=== PATIENT | female | born 1965 | race Caucasian/White ===

== ENCOUNTER 2016-08-07 13:39 | Emergency (ER) | payer OTHER ==
[~2016-08-07] VITALS: Ht 170.2 cm; Wt 159.0 kg
[~2016-08-07 13:39] MED LIST: AMIT10TA6 PO; ARIP30TA3 PO; BUSP30TA2 PO; CLON0.5T3 PO; DICY1TAB25 PO; EFFSR150 PO; ELQ25 PO; FLUT1INH PO; FURO20TA PO; LAMO200T38 PO; LEVAAER2 INH; LEVO175T3 PO; METO50TA16 PO; OMEP20CA9 PO; SIMV-151 PO; TIZA2TAB3 PO; VERA240T20 PO; [UNRECOGNIZED DRUG - CODE] PO
[2016-08-07 13:55] VITALS: TEMP 36.7; Ht 170.2 cm; Wt 159.0 kg
--- NOTE | 2016-08-07 14:17 | EMERGENCY ROOM VISIT NOTE ---
History Report prepared by Tory: Padmini Wells Under the Supervision of: Dr. Shanta Merino M.D. First contact with patient: 14:08 Chief Complaint: FALL Stated Complaint: FALL History of Present Illness The patient is a 51 year old female who presents to the Emergency Room via EMS with complaints of worsening left leg weakness. The patient states that she initially started having difficulty using her left leg a few months ago, but it has been getting worse over the past few weeks. The patient also complains that her left leg has been getting red. Today, the patient had a fall while getting off of the elevator in her apartment building. She notes that she fell on her stomach but currently complains of lower back pain which started after the fall. She denies hitting her head or loss of consciousness. The patient is currently on antibiotics for pneumonia, which she was diagnosed with in late July. 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 A total of 10 systems reviewed and were otherwise negative. Past Medical & Surgical Medical Problems: (1) Anxiety (2) Asthma (3) 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 with rapid ventricular response (4) Bipolar I disorder (5) Depression (6) Dyslipidemia (7) Elevated troponin I level (8) Epilepsy (9) Fibromyalgia (10) GERD (gastroesophageal reflux disease) (11) H/O migraine (12) Hypertension (13) Hypothyroidism (14) IBS (irritable bowel syndrome) (15) Lung nodule (16) MAURO (obstructive sleep apnea) (17) Schizoaffective disorder, depressive type Surgical Problems: (1) H/o lumbar hemilaminectomy (2) History of hysterectomy (3) S/P cholecystectomy (4) S/P tonsillectomy (5) S/P tubal ligation Family History Diabetes mellitus FATHER FH: cancer MOTHER (lung CA) FH: heart disease FATHER FH: scoliosis Social History Smoking Status: Former Smoker Alcohol Use: none Drug Use: none Marital Status: Housing Status: lives alone Occupation Status: disabled Current/Historical Medications Scheduled Amitriptyline Hcl (Elavil), 10 MG PO HS Apixaban (Eliquis), 5 MG PO BID Aripiprazole (Abilify), 30 MG PO HS Buspirone Hcl (Buspirone Hcl), 30 MG PO BID Clonazepam (Klonopin), 0.5 MG PO BID Dicyclomine HCl (Dicyclomine HCl), 20 MG PO QID Esomeprazole Magnesium (Nexium), 40 MG PO DAILY Fluticasone Furoate-Vilanterol (Breo Ellipta), 1 PUFF PO QAM Furosemide (Lasix), 1 TAB PO DAILY Lamotrigine (Lamictal), 200 MG PO BID Levothyroxine Sodium (Levothyroxine Sodium), 175 MCG PO DAILY Metoprolol Tartrate (Lopressor) (Lopressor), 50 MG PO BID Mirabegron (Myrbetriq), 25 MG PO DAILY Multiple Vitamins W/ Minerals (Multiple Vitamins/Womens), 1 TAB PO DAILY Simvastatin (Simvastatin), 20 MG PO HS Venlafaxine Hcl (Effexor Extended Rel), 150 MG PO QAM Verapamil Sust Rel (Calan Sr Ext Rel), 240 MG PO DAILY Scheduled PRN Levalbuterol (Xopenex Hfa), 1-2 PUFFS INH Q4H PRN for Shortness of Breath Oxycodone Immediate Rel Tab (Roxicodone Ir), 5 MG PO TID PRN for Pain Tizanidine Hcl (Zanaflex), 2 MG PO Q8 PRN for Muscle Spasms Allergies Coded Allergies: Hydantoins (Verified Allergy, Unknown, 07/08/16) Phenytoin (Verified Allergy, Unknown, 07/08/16) Ethanol (Verified Adverse Reaction, Severe, SEIZURES, 07/08/16) SEIZURES Thioridazine (Verified Adverse Reaction, Severe, SEIZURES, 07/08/16) SEIZURES Physical Exam Vital Signs Date Time Temp Pulse Resp B/P Pulse Ox O2 Delivery O2 Flow Rate FiO2 08/07/16 18:25 74 22 133/79 97 08/07/16 18:00 74 22 133/79 97 Room Air 08/07/16 15:30 66 16 100/65 99 Room Air 08/07/16 15:24 68 08/07/16 13:55 36.7 76 20 166/83 97 Room Air Physical Exam Vital signs reviewed. General: Obese generally well-appearing 51 year old female, in no significant distress. HEENT: No scleral icterus, PERRLA, esotropia of the right eye, neck supple. Atraumatic. Cardiovascular: Regular rate and rhythm, no extra sounds. Pulmonary: Clear to auscultation bilaterally, normal work of breathing. Abdomen: Soft, nontender, nondistended, positive bowel sounds. Musculoskeletal: Atraumatic, no peripheral edema, tender to palpation of the mid -thoracic spine. Neurologic: Patient awake alert and oriented x 3. 3/5 strength of the left lower extremity to straight leg raise, 5/5 to dorsiflexion and plantar flexion of the left foot. The right leg is fully intact, 5/5 strength. Cranial nerves 2 through 12 grossly intact. Skin: Warm, dry, no rash Medical Decision & Procedures ER Provider Diagnostic Interpretation: X-ray results as stated below per my interpretation and radiologist interpretation. Other radiology results as stated below per my review and radiologist interpretation: THORACIC SPINE 3 VIEWS HISTORY: Fall with mid back pain COMPARISON: None. FINDINGS: There is no fracture. No subluxation. Paraspinal soft tissues are unremarkable. Mild to moderate disc space narrowing and endplate osteophytes at the mid thoracic spine consistent with degenerative change. IMPRESSION: No fracture or subluxation within the thoracic spine. Electronically signed by: Smooth Maya M.D. 08/07/2016 3:27 PM Dictated Date/Time: 08/07/2016 3:[address] DOSE: 2994.04 mGy.cm HISTORY: Left leg weakness, falls, morbid obesity BMI 55 TECHNIQUE: Multiaxial CT images of the lumbar spine were performed and reformatted in the sagittal and coronal plane without the use of contrast. COMPARISON: Lumbar spine CT 08/10/2014. FINDINGS: Alignment and curvature intact. No fracture or subluxation. There is posterior decompression and fusion from L3 through L5 with pedicle screws and rods. The hardware appears intact. Vertebral body heights are maintained. Paraspinal soft tissues are unremarkable. Lumbar region subcutaneous edema has improved. This may represent resolving postoperative changes. The visualized sacrum is intact. Moderate facet degenerative changes at L5-S1 remains unchanged. Evaluation the central canal is suboptimal due to the CT technique. However, there is no significant central canal compromise identified. IMPRESSION: No fracture or subluxation within the lumbar spine. Postoperative changes as described above. Electronically signed by: Smooth Maya M.D. 08/07/2016 3:12 PM Dictated Date/Time: 08/07/2016 3:[address]AST CT DOSE: HISTORY: LLE weakness, falls TECHNIQUE: Multiaxial CT images of the head were performed without the use of intravenous contrast. Automated exposure control was utilized for this study. Comparison: Head CT 09/08/2015. Findings: The paranasal sinuses and mastoid air cells are clear. The calvarium and skull base are intact. The ventricles and sulci are within normal limits. There is no mass, hematoma, midline shift, or acute infarct. Impression: No acute intracranial abnormality. Electronically signed by: Smooth Maya M.D. 08/07/2016 3:14 PM Dictated Date/Time: 08/07/2016 3:12 PM Laboratory Results 08/07/16 15:30 Red Blood Count 4.10, Mean Corpuscular Volume 92.7, Mean Corpuscular Hemoglobin 29.8, Mean Corpuscular Hemoglobin Concent 32.1, Mean Platelet Volume 10.7, Neutrophils (%) (Auto) 71.9, Lymphocytes (%) (Auto) 16.1, Monocytes (%) (Auto) 6.8, Eosinophils (%) (Auto) 4.6, Basophils (%) (Auto) 0.4, Neutrophils # (Auto) 7.16, Lymphocytes # (Auto) 1.60, Monocytes # (Auto) 0.68, Eosinophils # (Auto) 0.46, Basophils # (Auto) 0.04 08/07/16 15:30 Test 08/07/16 15:30 08/07/16 15:45 White Blood Count 9.96 K/uL (4.8-10.8) Red Blood Count 4.10 M/uL (4.2-5.4) Hemoglobin 12.2 g/dL (12.0-16.0) Hematocrit 38.0 % (37-47) Mean Corpuscular Volume 92.7 fL (80-100) Mean Corpuscular Hemoglobin 29.8 pg (25-34) Mean Corpuscular Hemoglobin Concent 32.1 g/dl (32-36) Platelet Count 196 K/uL (130-400) Mean Platelet Volume 10.7 fL (7.4-10.4) Neutrophils (%) (Auto) 71.9 % Lymphocytes (%) (Auto) 16.1 % Monocytes (%) (Auto) 6.8 % Eosinophils (%) (Auto) 4.6 % Basophils (%) (Auto) 0.4 % Neutrophils # (Auto) 7.16 K/uL (1.4-6.5) Lymphocytes # (Auto) 1.60 K/uL (1.2-3.4) Monocytes # (Auto) 0.68 K/uL (0.11-0.59) Eosinophils # (Auto) 0.46 K/uL (0-0.5) Basophils # (Auto) 0.04 K/uL (0-0.2) RDW Standard Deviation 52.9 fL (36.4-46.3) RDW Coefficient of Variation 15.5 % (11.5-14.5) Immature Granulocyte % (Auto) 0.2 % Immature Granulocyte # (Auto) 0.02 K/uL (0.00-0.02) Anion Gap 9.0 mmol/L (3-11) Est Creatinine Clear Calc Drug Dose 124.4 ml/min Estimated GFR () 93.3 Estimated GFR (Non- 80.5 BUN/Creatinine Ratio 11.1 (10-20) Calcium Level 9.5 mg/dl (8.5-10.1) Magnesium Level 2.0 mg/dl (1.8-2.4) Total Bilirubin 0.3 mg/dl (0.2-1) Direct Bilirubin 0.1 mg/dl (0-0.2) Aspartate Amino Transf (AST/SGOT) 52 U/L (15-37) Alanine Aminotransferase (ALT/SGPT) 77 U/L (12-78) Alkaline Phosphatase 117 U/L (45-117) Total Protein 7.8 gm/dl (6.4-8.2) Albumin 3.4 gm/dl (3.4-5.0) Urine Color YELLOW Urine Appearance CLEAR (CLEAR) Urine pH 6.0 (4.5-7.5) Urine Specific Ranger 1.004 (1.000-1.030) Urine Protein NEG (NEG) Urine Glucose (UA) NEG (NEG) Urine Ketones NEG (NEG) Urine Occult Blood NEG (NEG) Urine Nitrite NEG (NEG) Urine Bilirubin NEG (NEG) Urine Urobilinogen NEG (NEG) Urine Leukocyte Esterase NEG (NEG) Laboratory results per my review. Medications Administered Medications (Trade) Dose Ordered Sig/Eliana Route Start Time Stop Time Status Last Admin Dose Admin Sodium Chloride (Nss 1000ml) 1,000 ml @ 125 mls/hr Q8H STAT IV 08/07/16 14:42 08/07/16 18:56 DC 08/07/16 14:42 125 MLS/HR Ketorolac Tromethamine (Toradol Inj) 30 mg NOW STAT IV 08/07/16 17:41 08/07/16 17:42 DC 08/07/16 17:54 30 MG Oxycodone HCl (Roxicodone Immediate Rel Tab) 5 mg NOW STAT PO 08/07/16 17:41 08/07/16 17:42 DC 08/07/16 17:55 5 MG ECG Indication: weakness Rate (beats per minute): 68 Rhythm: normal sinus Findings: no ectopy, other (diffuse T wave flattening) ED Course 1412: The patient was evaluated in room B4. A complete history and physical examination was performed. 1442: Ordered NSS 1000 ml @ 125 mls/hr IV. 1738: The patient did well on her ambulatory trial. I discussed findings with the patient. She verbalized agreement of the treatment plan. She was discharged home. Ordered Oxycodone HCl 5 mg IV, Toradol Inj 30 mg IV. Medical Decision Differential diagnosis: Lumbar radiculopathy, deconditioning compression fracture, spinal stenosis, cord compromise, UTI, metabolic abnormality, intracranial hemorrhage, intracranial mass, stroke. This patient was evaluated and appeared to be in no significant distress. IV access was obtained and laboratory work was drawn. The patient was hydrated with normal saline solution. She was given IV toradol and oxy for her discomfort. Given the patient's morbid obesity, a CT scan of the lumbar spine was obtained and reveals postsurgical changes but no significant fracture, dislocation central canal compromise on this modality. CT scan of the head reveals no evidence of acute intracranial pathology and thoracic x-rays were performed revealing no fracture. The patient was able to ambulate well with her cane however her boyfriend is concerned about her instability. This has been going on for some time and the patient was discharged with a walker. I suspect she may need an MRI of the lumbar spine as she has had spine surgery in the past however she has no fever or elevated white blood cell count to cause great concerns evening. The patient was informed of the findings and will be discharged to the care of her boyfriend. She will return to the ER for worsening of symptoms or any medical concerns. Impression Primary Impression: Weakness of left lower extremity Additional Impression: Morbid obesity Scribe Attestation The scribe's documentation has been prepared under my direction and personally reviewed by me in its entirety. I confirm that the note above accurately reflects all work, treatment, procedures, and medical decision making performed by me. Departure Information Dispostion Home / Self-Care Prescriptions Oxycodone Immediate Rel Tab (ROXICODONE IR) 5 Mg Tab 5 MG PO TID Y for Pain, #14 TAB Prov: Shanta Merino M.D. 08/07/16 Referrals Brian Salas, D.O. (PCP) Patient Instructions A Signature Page, [facility] Additional Instructions Diagnosis: Left lower extremity weakness, morbid obesity OxyIR 5 mg 3 times daily as needed for severe pain. Do not drive on this medication. Follow-up with your physician for reevaluation of your weakness. An MRI may be necessary. Use your cane or walker with ambulation to avoid falling. Return to the emergency department for worsening of symptoms or any medical concerns.
[2016-08-07] MEDS ORDERED: NXM/40 PO (14:36)
[2016-08-07] MEDS ORDERED: MIRA100T PO (14:36)
[2016-08-07] MEDS ORDERED: SODIUM CHLORIDE 0.9% 1000ML 1,000 ML IV STA (14:42)
--- NOTE | 2016-08-07 15:14 | DIAGNOSTIC IMAGING REPORT ---
LUMBAR SPINE CT CT DOSE: 2994.04 mGy.cm HISTORY: Left leg weakness, falls, morbid obesity BMI 55 TECHNIQUE: Multiaxial CT images of the lumbar spine were performed and reformatted in the sagittal and coronal plane without the use of contrast. COMPARISON: Lumbar spine CT 08/10/2014. FINDINGS: Alignment and curvature intact. No fracture or subluxation. There is posterior decompression and fusion from L3 through L5 with pedicle screws and rods. The hardware appears intact. Vertebral body heights are maintained. Paraspinal soft tissues are unremarkable. Lumbar region subcutaneous edema has improved. This may represent resolving postoperative changes. The visualized sacrum is intact. Moderate facet degenerative changes at L5-S1 remains unchanged. Evaluation the central canal is suboptimal due to the CT technique. However, there is no significant central canal compromise identified. IMPRESSION: No fracture or subluxation within the lumbar spine. Postoperative changes as described above. Electronically signed by: Smooth Maya M.D. 08/07/2016 3:12 PM Dictated Date/Time: 08/07/2016 3:06 PM
--- NOTE | 2016-08-07 15:16 | DIAGNOSTIC IMAGING REPORT ---
HEAD CT NONCONTRAST CT DOSE: HISTORY: LLE weakness, falls TECHNIQUE: Multiaxial CT images of the head were performed without the use of intravenous contrast. Automated exposure control was utilized for this study. Comparison: Head CT 09/08/2015. Findings: The paranasal sinuses and mastoid air cells are clear. The calvarium and skull base are intact. The ventricles and sulci are within normal limits. There is no mass, hematoma, midline shift, or acute infarct. Impression: No acute intracranial abnormality. Electronically signed by: Smooth Maya M.D. 08/07/2016 3:14 PM Dictated Date/Time: 08/07/2016 3:12 PM
--- NOTE | 2016-08-07 15:29 | DIAGNOSTIC IMAGING REPORT ---
THORACIC SPINE 3 VIEWS HISTORY: Fall with mid back pain COMPARISON: None. FINDINGS: There is no fracture. No subluxation. Paraspinal soft tissues are unremarkable. Mild to moderate disc space narrowing and endplate osteophytes at the mid thoracic spine consistent with degenerative change. IMPRESSION: No fracture or subluxation within the thoracic spine. Electronically signed by: Smooth Maya M.D. 08/07/2016 3:27 PM Dictated Date/Time: 08/07/2016 3:26 PM
[2016-08-07 15:47] LABS: BASO % 0.4 %; BASO ABS # 0.04 K/uL (0-0.2); COMPLETE YES; EOS % 4.6 %; IG% 0.2 %; LYMPH % 16.1 %; MEAN CELL VOLUME 92.7 fL (80-100); MEAN CORPUSCULAR HEMOGLOBIN 29.8 pg (25-34); MEAN CORPUSCULAR HGB CONC 32.1 g/dl (32-36); MEAN PLATELET VOLUME 10.7 fL (7.4-10.4); MONO % 6.8 %; NEUT % 71.9 %; PLATELET COUNT 196 K/uL (130-400); WHITE BLOOD COUNT 9.96 K/uL (4.8-10.8)
[2016-08-07 16:11] LABS: URINE APPEARANCE CLEAR (CLEAR); URINE BILIRUBIN NEG (NEG); URINE COLOR YELLOW; URINE NITRITE NEG (NEG); URINE SPECIFIC GRAVITY 1.004 (1.000-1.030); UROBILINOGEN NEG (NEG); ZZUR CULT IF INDIC CLEAN CATCH NO
[2016-08-07 16:16] LABS: BUN/CREATININE RATIO 11.1 (10-20); CALCIUM 9.5 mg/dl (8.5-10.1); CREATININE 0.83 mg/dl (0.60-1.20); POTASSIUM 3.5 mmol/L (3.5-5.1)
[2016-08-07 16:27] LABS: MANUAL MICROSCOPIC REQUIRED? NO; REVIEW REQ? NO
[2016-08-07] MEDS ORDERED: OXYCODONE HCL IR 5 MG TAB (IMMEDIATE RELEASE) PO STA (17:41)
[2016-08-07] MEDS ORDERED: KETOROLAC TROMETHAMINE 30 MG/ML VIAL IV STA (17:41)
[2016-08-07] MEDS ORDERED: OXYC1TAB3 PO (17:49)
[2016-08-07 18:25] VITALS: BP 133/79; PULSE 74; O2SAT 97
[2016-11-12] MEDS ORDERED: BTP80 PO (11:48)
[2016-11-12] MEDS ORDERED: POTA10CA28 PO (11:48)
[2016-11-12] MEDS ORDERED: ASPEC81 PO (11:48)
[2016-11-12] MEDS ORDERED: LEVO200T6 PO (11:48)
[2017-04-29] MEDS ORDERED: OXYC7.5T65 PO (13:04)
[2017-04-29] MEDS ORDERED: TIZA2TAB3 PO (13:05)
[2017-04-29] MEDS ORDERED: BUSP30TA2 PO (13:05)
== END 2016-08-07 18:56 | disposition home or self-care (01) ==
LOC: EDBD 13:39 → C.EDB 13:42
DX: M79.605 Pain in left leg (principal); M54.5 Low back pain; W01.0XXA Fall on same level from slipping, tripping and stumbling without subsequent striking against object, initial encounter; Y92.89 Other specified places as the place of occurrence of the external cause; F25.9 Schizoaffective disorder, unspecified; G47.33 Obstructive sleep apnea (adult) (pediatric); M79.7 Fibromyalgia; Z87.891 Personal history of nicotine dependence; E66.01 Morbid (severe) obesity due to excess calories; Z68.43 Body mass index [BMI] 50.0-59.9, adult

== ENCOUNTER → 2016-08-25 | Outpatient (CLI) | payer OTHER ==
[~2016-08-25] MED LIST changes: +ASPEC81 PO; +BTP80 PO; +DICY10CA55 PO; +FURO-85 PO; +LEVA45AE INH; +LEVO200T6 PO; +MIRA100T PO; +NXM/40 PO; -OMEP20CA9 PO; +OXYC1TAB3 PO; +OXYC7.5T65 PO; +POTA10CA28 PO; +RANI150T3 PO; +RIBO100T9 PO; +TPM/50 PO
--- NOTE | 2016-08-25 19:30 | DIAGNOSTIC IMAGING REPORT ---
MRI OF THE LUMBAR SPINE WITHOUT IV CONTRAST CLINICAL HISTORY: Upper extremity weakness. COMPARISON STUDY: MRI of the lumbar spine dated 03/29/2014. Radiographs of the lumbar spine dated 03/27/2015. TECHNIQUE: MRI of the lumbar spine is performed utilizing various T1 and T2-weighted sequences in the axial and sagittal planes. IV contrast was not administered for this examination. The examination is significantly degraded by large body habitus. Orthopedic hardware degrades assessment at the operative levels. FINDINGS: Lumbar spine: Vertebral body height and alignment are maintained throughout the lumbar spine. Marrow signal intensity is heterogeneous. There are postoperative changes from laminectomy and posterior fusion from L3 to L5. Interpedicular screws are present at all levels. The orthopedic hardware is grossly intact. The transverse processes are intact as imaged. No destructive bony process is seen. Intervertebral discs: Findings suggest previous discectomy at L4-L5. Degenerative disc desiccation is seen throughout the lumbar spine. There is mild loss of height at L3-L4. Spinal cord: Visualized spinal cord is normal in morphology and signal intensity. The conus medullaris terminates at the L1-L2 interspace. The nerve roots of the cauda equina are grossly normal in morphology. L1-L2: There is a posterior disc bulge with annular fissure eccentric to the left. This may impinge on the transiting left-sided nerve roots. The central canal and neural foramina are patent. L2-L3: There is minimal posterior disc bulge. In conjunction with hypertrophy of the ligamentum flavum, this causes mild acquired compromise of the central canal with a minimum AP diameter of 8.5 mm. There is mild bilateral subarticular stenosis. The neural foramina are patent. Facet arthropathy is of no consequence. L3-L4: The central canal and neural foramina appear widely patent. L4-L5: The central canal and neural foramina appear widely patent. L5-S1: The central canal and neural foramina appear widely patent. A facet joint effusion is noted on the left. Sacrum: Visualized sacrum is normal in morphology and signal intensity. Soft tissues: There is near-complete fatty atrophy of the paraspinous musculature. Postoperative changes present from L3 to L5. The partially imaged retroperitoneal structures are grossly unremarkable but incomplete assessed. IMPRESSION: 1. There are postoperative changes from L3 to L5 laminectomy and posterior fusion. 2. Degenerative change at L1-L2 and L2-L3 as above. See discussion for detailed [id number] analysis. Dictated: 08/25/2016 6:54 PM Transcribed: 08/25/2016 7:29 PM Jessica Electronically signed by: Gurinder Staley M.D. 08/25/2016 7:34 PM Dictated Date/Time: 08/25/2016 6:54 PM
== END | disposition home or self-care (01) ==
LOC: C.MRI 16:59
PROVIDERS: ATTEND Family Medicine
DX: M51.36 Other intervertebral disc degeneration, lumbar region (principal); M62.81 Muscle weakness (generalized); Z98.1 Arthrodesis status

== ENCOUNTER 2016-11-08 17:36 | Inpatient (IN) | payer OTHER ==
[~2016-11-08] VITALS: Ht 170.2 cm; Wt 151.5 kg
[~2016-11-08 17:36] MED LIST changes: -ARIP30TA3 PO; -ASPEC81 PO; -BTP80 PO; -DICY10CA55 PO; -EFFSR150 PO; -FLUT1INH PO; -FURO-85 PO; -LAMO200T38 PO; -LEVA45AE INH; -LEVO200T6 PO; -OXYC7.5T65 PO; -POTA10CA28 PO; -RANI150T3 PO; -RIBO100T9 PO; -SIMV-151 PO; -TPM/50 PO
[2016-11-08] MEDS ORDERED: METOPROLOL TARTRATE 1 MG/ML VIAL IV STA (17:51)
[2016-11-08 18:03] LABS: BASO % 0.5 %; BASO ABS # 0.05 K/uL (0-0.2); COMPLETE YES; EOS % 2.8 %; HEMATOCRIT 41.4 % (37-47); IG% 0.3 %; LYMPH % 25.7 %; LYMPH ABS # 2.52 K/uL (1.2-3.4); MEAN CORPUSCULAR HEMOGLOBIN 30.2 pg (25-34); MEAN CORPUSCULAR HGB CONC 32.9 g/dl (32-36); MEAN PLATELET VOLUME 11.3 fL (7.4-10.4); MONO % 5.5 %; NEUT % 65.2 %; PLATELET COUNT 213 K/uL (130-400)
--- NOTE | 2016-11-08 18:05 | DIAGNOSTIC IMAGING REPORT ---
CHEST ONE VIEW PORTABLE CLINICAL HISTORY: sob dyspnea COMPARISON STUDY: 02/04/2016 FINDINGS: The bones soft tissues and hemidiaphragms are normal. The cardiomediastinal silhouette is normal. The lungs are clear. The pulmonary vasculature is normal. IMPRESSION: Negative chest. Electronically signed by: Eduardo Borja M.D. 11/08/2016 6:03 PM Dictated Date/Time: 11/08/2016 6:01 PM
[2016-11-08 18:16] LABS: PARTIAL THROMBOPLASTIN RATIO 1.2; PROTHROMBIN TIME (PATIENT) 10.7 SECONDS (9.0-12.0)
[2016-11-08 18:23] LABS: BUN/CREATININE RATIO 6.7 (10-20); CREATININE 0.93 mg/dl (0.60-1.20); POTASSIUM 3.6 mmol/L (3.5-5.1)
[2016-11-08] MEDS ORDERED: LEVO200T6 PO (18:26)
[2016-11-08] MEDS ORDERED: TPM/50 PO (18:26)
[2016-11-08] MEDS ORDERED: LEVA45AE INH (18:27)
[2016-11-08 18:33] LABS: ALB/GLOB RATIO 0.9 (0.9-2); CKMB/CK RATIO 2.5 (0-3.0)
[2016-11-08] MEDS ORDERED: DILTIAZEM BOLUS / DRIP IV STA ×2 (18:45→23:59)
[2016-11-08] MEDS ORDERED: DILTIAZEM HCL INJ 125 MG in DEXTROSE 5% 100ML IV PRN (19:00)
[2016-11-08] MEDS ORDERED: DILTIAZEM HCL 5 MG/ML 5 ML VIAL IV ONE (19:15)
--- NOTE | 2016-11-08 19:37 | EMERGENCY ROOM VISIT NOTE ---
ED Visit Note First contact with patient: 17:39 Patient was seen by our PA/ADVERTISEMENT DISTRIBUTOR. I was involved in the patient's care and did evaluate the patient myself. I was involved in the care throughout the ER stay. The patient presents with chest discomfort. Rapid A. fib/A flutter was noted on EKG. The patient received IV beta mary and then was placed on a diltiazem drip after an IV diltiazem bolus. Given the findings, admission/ observation is warranted.
--- NOTE | 2016-11-08 19:47 | EMERGENCY ROOM VISIT NOTE ---
History First contact with patient: 17:39 Chief Complaint: CARDIAC ASSESSMENT Stated Complaint: CARDIAC SX Nursing Triage Summary: Pt reports at around 0530 this morning she felt her heart flutter. Pt c/o SOB, weakness, dry cough, and chest discomfort. Pt reports history of Afib. History of Present Illness The patient is a 51 year old female who presents to the Emergency Room with complaints of cardiac symptoms which began at approximately 5:30 AM. She states that since this morning, she has had a feeling of fluttering in her chest , cough, shakiness and weakness. She states that these symptoms "take her breath away." She reports a history of atrial 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 and takes Xarelto. 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 She denies any history of similar symptoms. She denies any recent medication changes. She denies headache, neck pain, abdominal pain, nausea, vomiting, recent illness or fevers. Review of Systems A complete 10-point Review of Systems was discussed with the patient, with pertinent positives and negatives listed in the History of Present Illness. All remaining Review of Systems questions can be considered negative unless otherwise specified. Past Medical/Surgical History Medical Problems: (1) Anxiety (2) Asthma (3) 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 with rapid ventricular response (4) 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 with RVR (5) Bipolar I disorder (6) Depression (7) Dyslipidemia (8) Elevated troponin I level (9) Epilepsy (10) Fibromyalgia (11) GERD (gastroesophageal reflux disease) (12) H/O migraine (13) Hypertension (14) Hypothyroidism (15) IBS (irritable bowel syndrome) (16) Lung nodule (17) MAURO (obstructive sleep apnea) (18) Schizoaffective disorder, depressive type Surgical Problems: (1) H/o lumbar hemilaminectomy (2) History of hysterectomy (3) S/P cholecystectomy (4) S/P tonsillectomy (5) S/P tubal ligation Family History Diabetes mellitus FATHER FH: cancer MOTHER (lung CA) FH: heart disease FATHER FH: scoliosis Social History Smoking Status: Never Smoker Alcohol Use: none Drug Use: none Marital Status: Housing Status: lives alone Occupation Status: disabled Current/Historical Medications Scheduled Amitriptyline Hcl (Elavil), 10 MG PO HS Apixaban (Eliquis), 5 MG PO BID Aripiprazole (Abilify), 30 MG PO HS Buspirone Hcl (Buspirone Hcl), 30 MG PO BID Clonazepam (Klonopin), 0.5 MG PO BID Dicyclomine HCl (Dicyclomine HCl), 20 MG PO QID Esomeprazole Magnesium (Nexium), 40 MG PO DAILY Fluticasone Furoate-Vilanterol (Breo Ellipta), 1 PUFF PO QAM Furosemide (Lasix), 1 TAB PO DAILY Lamotrigine (Lamictal), 200 MG PO BID Levothyroxine Sodium (Levothyroxine Sodium), 200 MCG PO QAM Metoprolol Tartrate (Lopressor) (Lopressor), 50 MG PO BID Multiple Vitamins W/ Minerals (Multiple Vitamins/Womens), 1 TAB PO DAILY Simvastatin (Simvastatin), 20 MG PO HS Topiramate (Topamax), 100 MG PO BID Venlafaxine Hcl (Effexor Extended Rel), 150 MG PO QAM Scheduled PRN Levalbuterol Tartrate (Levalbuterol Tartrate Hfa), 1-2 PUFFS INH Q4 PRN for Shortness of Breath Oxycodone Immediate Rel Tab (Roxicodone Ir), 5 MG PO TID PRN for Pain Tizanidine Hcl (Zanaflex), 2 MG PO Q8 PRN for Muscle Spasms Allergies Coded Allergies: Hydantoins (Verified Allergy, Unknown, 11/08/16) Phenytoin (Verified Allergy, Unknown, 11/08/16) Ethanol (Verified Adverse Reaction, Severe, SEIZURES, 11/08/16) SEIZURES Thioridazine (Verified Adverse Reaction, Severe, SEIZURES, 11/08/16) SEIZURES Physical Exam Vital Signs Date Time Temp Pulse Resp B/P Pulse Ox O2 Delivery O2 Flow Rate FiO2 11/08/16 20:15 Room Air 11/08/16 20:13 94 20 141/82 95 Room Air 11/08/16 19:21 121 18 120/86 96 Room Air 11/08/16 18:02 113 20 135/108 97 Room Air 11/08/16 18:02 119 135/108 11/08/16 17:50 108 11/08/16 17:40 94 Room Air 11/08/16 17:40 36.8 116 20 136/92 94 Room Air 11/08/16 17:40 94 Room Air Physical Exam VITALS: Vitals are noted on the nurse's note and reviewed by myself. Vital signs stable. GENERAL: This is a 51-year-old female, anxious appearing, nondiaphoretic, well- developed well-nourished. SKIN: Capillary reflex less than 2 seconds. HEENT: Normocephalic. PERRLA. EOMI. Nares patent. Mucous membranes moist. Neck is supple without nuchal rigidity. HEART: Tachycardic, irregularly irregular rhythm without murmurs gallops or rubs. LUNGS: Clear to auscultation bilaterally without wheezes, rales or rhonchi. No retractions or accessory muscle use. ABDOMEN: Positive bowel sounds x 4. Soft, nontender to palpation. NEURO: Patient was alert and oriented to person place and time. Medical Decision & Procedures Laboratory Results 11/08/16 17:17 Red Blood Count 4.50, Mean Corpuscular Volume 92.0, Mean Corpuscular Hemoglobin 30.2, Mean Corpuscular Hemoglobin Concent 32.9, Mean Platelet Volume 11.3, Neutrophils (%) (Auto) 65.2, Lymphocytes (%) (Auto) 25.7, Monocytes (%) (Auto) 5.5, Eosinophils (%) (Auto) 2.8, Basophils (%) (Auto) 0.5, Neutrophils # (Auto) 6.39, Lymphocytes # (Auto) 2.52, Monocytes # (Auto) 0.54, Eosinophils # (Auto) 0.27, Basophils # (Auto) 0.05 11/08/16 17:17 Test 11/08/16 17:17 11/08/16 17:58 White Blood Count 9.80 K/uL (4.8-10.8) Red Blood Count 4.50 M/uL (4.2-5.4) Hemoglobin 13.6 g/dL (12.0-16.0) Hematocrit 41.4 % (37-47) Mean Corpuscular Volume 92.0 fL (80-100) Mean Corpuscular Hemoglobin 30.2 pg (25-34) Mean Corpuscular Hemoglobin Concent 32.9 g/dl (32-36) Platelet Count 213 K/uL (130-400) Mean Platelet Volume 11.3 fL (7.4-10.4) Neutrophils (%) (Auto) 65.2 % Lymphocytes (%) (Auto) 25.7 % Monocytes (%) (Auto) 5.5 % Eosinophils (%) (Auto) 2.8 % Basophils (%) (Auto) 0.5 % Neutrophils # (Auto) 6.39 K/uL (1.4-6.5) Lymphocytes # (Auto) 2.52 K/uL (1.2-3.4) Monocytes # (Auto) 0.54 K/uL (0.11-0.59) Eosinophils # (Auto) 0.27 K/uL (0-0.5) Basophils # (Auto) 0.05 K/uL (0-0.2) RDW Standard Deviation 49.5 fL (36.4-46.3) RDW Coefficient of Variation 14.6 % (11.5-14.5) Immature Granulocyte % (Auto) 0.3 % Immature Granulocyte # (Auto) 0.03 K/uL (0.00-0.02) Prothrombin Time 10.7 SECONDS (9.0-12.0) Prothromb Time International Ratio 1.0 (0.9-1.1) Activated Partial Thromboplast Time 30.5 SECONDS (21.0-31.0) Partial Thromboplastin Ratio 1.2 Anion Gap 7.0 mmol/L (3-11) Est Creatinine Clear Calc Drug Dose 108.0 ml/min Estimated GFR () 81.3 Estimated GFR (Non- 70.2 BUN/Creatinine Ratio 6.7 (10-20) Calcium Level 9.0 mg/dl (8.5-10.1) Total Bilirubin 0.2 mg/dl (0.2-1) Aspartate Amino Transf (AST/SGOT) 24 U/L (15-37) Alanine Aminotransferase (ALT/SGPT) 39 U/L (12-78) Alkaline Phosphatase 125 U/L (45-117) Total Protein 7.5 gm/dl (6.4-8.2) Albumin 3.5 gm/dl (3.4-5.0) Globulin 4.0 gm/dl (2.5-4.0) Albumin/Globulin Ratio 0.9 (0.9-2) Thyroid Stimulating Hormone (TSH) 66.000 uIu/ml (0.300-4.500) Free Thyroxine 0.45 ng/dl (0.80-1.60) Free Triiodothyronine 1.49 pg/ml (2.30-4.20) Hepatitis C Antibody Screen NEG (NEG) Bedside Troponin I 0.030 ng/ml (0-0.045) Medications Administered Medications (Trade) Dose Ordered Sig/Eliana Route Start Time Stop Time Status Last Admin Dose Admin Metoprolol Tartrate (Lopressor Iv) 5 mg NOW STAT IV 11/08/16 17:51 11/08/16 17:52 DC 11/08/16 18:02 5 MG Diltiazem HCl 5 mg 5 mg NOW ONCE IV 11/08/16 19:15 11/09/16 11:22 DC 11/08/16 19:16 5 MG Diltiazem HCl/ Dextrose (Cardizem Inj/D5 100ml) 125 ml @ 5 mls/hr Q24H PRN IV 11/08/16 19:00 11/09/16 00:12 DC 11/08/16 19:16 5 MLS/HR ECG Indication: palpitations Rate (beats per minute): 127 Rhythm: atrial flutter Comparison ECG Date: atrial flutter has replaced sinus rhythm. ED Course The patient was evaluated as above. Labs were drawn and IV access was obtained. Patient was placed on the travel registered nurse icu and monitored throughout the duration of her stay. EKG showed atrial flutter with RVR. Patient was medicated with 5 mg Lopressor IV. Repeat EKG was performed and showed persistent atrial flutter. Patient remained symptomatic. Diltiazem bolus and drip were ordered. Case was discussed with the [facility] hospitalist, Sherine Carranza. They agreed to evaluate the patient for admission. Medical Decision Differential diagnosis includes arrhythmia, pulmonary embolism, ACS, among others.. The patient is a 51-year-old female who presents today complaining of palpitations. Labs revealed no leukocytosis or anemia. No concerning electrolyte abnormalities. TSH was found to be significantly elevated and free T3 and free T4 were ordered. Patient had persistent atrial flutter with RVR at a rate of 110 to 130. There was no improvement with IV Lopressor. Diltiazem bolus and drip were ordered and the hospitalist was consulted. Patient remained hemodynamically stable throughout her stay. The patient was independently evaluated by Dr. Wyman, ED attending physician, who agreed with my assessment and treatment plan. Impression Primary Impression: Atrial flutter Departure Information Dispostion Being Evaluated By Hospitalist Condition GOOD Referrals Brian Salas D.O. (PCP) Patient Instructions My [facility] Problem Qualifiers Primary Impression: Atrial flutter
[2016-11-08 20:15] VITALS: Ht 170.2 cm; Wt 151.5 kg
[2016-11-08 21:40] VITALS: BP 124/84; PULSE 87; TEMP 37; O2SAT 96
--- NOTE | 2016-11-08 23:40 | History and Physical ---
History & Physical Date & Time of Service: Nov 08, 2016 at 23:39 Chief Complaint: Atrial Fibrillation With Rvr Primary Care Physician: Brian Salas D.OLázaro History of Present Illness Source: patient 51 yo F with past medical hx of chronic Aflb /flutter s/p LOLI cardioversion in 09/2015 , has been on Metoprol and on Eliquis for anticoagulation Follows with [facility] Eduardo Gonsalez PA-C /Dr Gabe Swan recent [place] Cardiac stress test in October 2015 was negative for stress inducible ischemia Pts other chronic medical conditions includes -Chronic Schizophrenia ,Depression , Hypothyroidism , HTN , Dyslipidemia, presents to ED with complain of palpitation , SOB , ROSALES pt mentions that her symptom started approx around 5 am this morning -started to experience palpitation , flattering in left side of chest , associated with SOB , dizzy spell no chest heaviness pt felt extremely fatigued , thought that taking rest /taking nap will help woke up in afternoon -felt worse ongoing palpitation , dizzy spell associated with Nausea came to ED for evaluation , pt found to be in rapid afib /Aflutter HR in 140's started on IV Cardizem gtt 5 mg /hr -rate minimally improved rhythm remained in Aflutter with 3: 1 conduction HR variable form 100-120 - Past Medical/Surgical History Medical Problems: (1) Anxiety Status: Chronic (2) Asthma Status: Chronic (3) Bipolar I disorder Status: Chronic (4) Depression Status: Chronic (5) Dyslipidemia Status: Chronic (6) Epilepsy Status: Chronic (7) Fibromyalgia Status: Chronic (8) GERD (gastroesophageal reflux disease) Status: Chronic (9) H/O migraine Status: Chronic (10) Hypertension Status: Chronic (11) Hypothyroidism Status: Chronic (12) IBS (irritable bowel syndrome) Status: Chronic (13) Lung nodule Status: Chronic (14) MAURO (obstructive sleep apnea) Status: Chronic (15) Schizoaffective disorder, depressive type Status: Chronic Surgical Problems: (1) H/o lumbar hemilaminectomy Status: Chronic (2) History of hysterectomy Status: Chronic (3) S/P cholecystectomy Status: Chronic (4) S/P tonsillectomy Status: Chronic (5) S/P tubal ligation Status: Chronic Family History Diabetes mellitus FATHER FH: cancer MOTHER (lung CA) FH: heart disease FATHER FH: scoliosis Social History Smoking Status: Never Smoker Drug Use: none Marital Status: Housing status: lives alone Occupational Status: disabled Immunizations History of Influenza Vaccine: N/A Influenza Vaccine Date: Jul 22, 2009 History of Tetanus Vaccine?: Yes History of Pneumococcal: Unknown Pneumococcal Date: Mar 25, 2009 History of Hepatitis B Vaccine: No Multi-Drug Resistant Organisms History of MDRO: No Allergies Coded Allergies: Hydantoins (Verified Allergy, Unknown, 11/08/16) Phenytoin (Verified Allergy, Unknown, 11/08/16) Ethanol (Verified Adverse Reaction, Severe, SEIZURES, 11/08/16) SEIZURES Thioridazine (Verified Adverse Reaction, Severe, SEIZURES, 11/08/16) SEIZURES Home Medications Scheduled Amitriptyline Hcl (Elavil), 10 MG PO HS Apixaban (Eliquis), 5 MG PO BID Aripiprazole (Abilify), 30 MG PO HS Buspirone Hcl (Buspirone Hcl), 30 MG PO BID Clonazepam (Klonopin), 0.5 MG PO BID Dicyclomine HCl (Dicyclomine HCl), 20 MG PO QID Esomeprazole Magnesium (Nexium), 40 MG PO DAILY Fluticasone Furoate-Vilanterol (Breo Ellipta), 1 PUFF PO QAM Furosemide (Lasix), 1 TAB PO DAILY Lamotrigine (Lamictal), 200 MG PO BID Levothyroxine Sodium (Levothyroxine Sodium), 200 MCG PO QAM Metoprolol Tartrate (Lopressor) (Lopressor), 50 MG PO BID Multiple Vitamins W/ Minerals (Multiple Vitamins/Womens), 1 TAB PO DAILY Simvastatin (Simvastatin), 20 MG PO HS Topiramate (Topamax), 100 MG PO BID Venlafaxine Hcl (Effexor Extended Rel), 150 MG PO QAM Scheduled PRN Levalbuterol Tartrate (Levalbuterol Tartrate Hfa), 1-2 PUFFS INH Q4 PRN for Shortness of Breath Oxycodone Immediate Rel Tab (Roxicodone Ir), 5 MG PO TID PRN for Pain Tizanidine Hcl (Zanaflex), 2 MG PO Q8 PRN for Muscle Spasms Review of Systems Constitutional: + fatigue, + weakness Respiratory: + dyspnea at rest, + dyspnea on exertion, + shortness of breath Cardiovascular: + PND, + palpitations Abdomen: + nausea, + vomiting Neurologic: + balance problems (gait disturbance fall ), + numbness/tingling, + vertigo, + weakness Psychiatric: + anxiety, + depression symptoms, + insomnia Physical Exam Vital Signs Date Time Temp Pulse Resp B/P Pulse Ox O2 Delivery O2 Flow Rate FiO2 11/08/16 21:40 37.0 87 22 124/84 96 Room Air 11/08/16 21:10 102 18 118/79 95 11/08/16 20:15 Room Air 11/08/16 20:13 94 20 141/82 95 Room Air 11/08/16 19:21 121 18 120/86 96 Room Air 11/08/16 18:02 113 20 135/108 97 Room Air 11/08/16 18:02 119 135/108 11/08/16 17:50 108 11/08/16 17:40 94 Room Air 11/08/16 17:40 36.8 116 20 136/92 94 Room Air 11/08/16 17:40 94 Room Air General Appearance: no apparent distress Eyes: sclerae normal ENT: hearing grossly normal Neck: thyroid normal, no JVD, no carotid bruits, trachea midline Respiratory/Chest: chest non-tender, lungs clear, normal breath sounds, no respiratory distress Cardiovascular: + tachycardia, + irregularly irregular Abdomen/GI: non tender, soft Extremities/Musculoskelatal: normal capillary refill, + pedal edema (2+ bilat pedal edema ) Neurologic/Psych: no motor/sensory deficits, alert, normal mood/affect, oriented x 3 Skin: normal color, warm/dry, no rash Lymphatic: no adenopathy Diagnostics Laboratory Results Results Past 24 Hours Test 11/08/16 17:17 11/08/16 17:58 Range/Units White Blood Count 9.80 4.8-10.8 K/uL Red Blood Count 4.50 4.2-5.4 M/uL Hemoglobin 13.6 12.0-16.0 g/dL Hematocrit 41.4 37-47 % Mean Corpuscular Volume 92.0 80-100 fL Mean Corpuscular Hemoglobin 30.2 25-34 pg Mean Corpuscular Hemoglobin Concent 32.9 32-36 g/dl Platelet Count 213 130-400 K/uL Mean Platelet Volume 11.3 7.4-10.4 fL Neutrophils (%) (Auto) 65.2 % Lymphocytes (%) (Auto) 25.7 % Monocytes (%) (Auto) 5.5 % Eosinophils (%) (Auto) 2.8 % Basophils (%) (Auto) 0.5 % Neutrophils # (Auto) 6.39 1.4-6.5 K/uL Lymphocytes # (Auto) 2.52 1.2-3.4 K/uL Monocytes # (Auto) 0.54 0.11-0.59 K/uL Eosinophils # (Auto) 0.27 0-0.5 K/uL Basophils # (Auto) 0.05 0-0.2 K/uL RDW Standard Deviation 49.5 36.4-46.3 fL RDW Coefficient of Variation 14.6 11.5-14.5 % Immature Granulocyte % (Auto) 0.3 % Immature Granulocyte # (Auto) 0.03 0.00-0.02 K/uL Prothrombin Time 10.7 9.0-12.0 SECONDS Prothromb Time International Ratio 1.0 0.9-1.1 Activated Partial Thromboplast Time 30.5 21.0-31.0 SECONDS Partial Thromboplastin Ratio 1.2 Sodium Level 137 136-145 mmol/L Potassium Level 3.6 3.5-5.1 mmol/L Chloride Level 100 98-107 mmol/L Carbon Dioxide Level 30 21-32 mmol/L Anion Gap 7.0 3-11 mmol/L Blood Urea Nitrogen 6 7-18 mg/dl Creatinine 0.93 0.60-1.20 mg/dl Est Creatinine Clear Calc Drug Dose 108.0 ml/min Estimated GFR () 81.3 Estimated GFR (Non- 70.2 BUN/Creatinine Ratio 6.7 10-20 Random Glucose 124 70-99 mg/dl Calcium Level 9.0 8.5-10.1 mg/dl Total Bilirubin 0.2 0.2-1 mg/dl Aspartate Amino Transf (AST/SGOT) 24 15-37 U/L Alanine Aminotransferase (ALT/SGPT) 39 12-78 U/L Alkaline Phosphatase 125 45-117 U/L Total Creatine Kinase 105 26-192 U/L Creatine Kinase MB 2.6 0.5-3.6 ng/ml Creatine Kinase MB Ratio 2.5 0-3.0 Total Protein 7.5 6.4-8.2 gm/dl Albumin 3.5 3.4-5.0 gm/dl Globulin 4.0 2.5-4.0 gm/dl Albumin/Globulin Ratio 0.9 0.9-2 Thyroid Stimulating Hormone (TSH) 66.000 0.300-4.500 uIu/ml Free Thyroxine 0.45 0.80-1.60 ng/dl Free Triiodothyronine 1.49 2.30-4.20 pg/ml Hepatitis C Antibody Screen NEG NEG Bedside Troponin I 0.030 0-0.045 ng/ml CXR normal EKG A FLUTTER -VENTRICULAR RATE 127 Impression Assessment and Plan A FLUTTER /HX OF PAF Hx of Afib /A flutter Dx Last year 2015 underwent LOLI cardioversion at [facility] by Dr Swan on beta mary on Chronic anticoagulation with Eliquis pt mentions of taking her cardiac meds on a regular basis developed rapid afib /aflutter this AM admit to tele no evidence of ACS , anticoagulation with Eliquis continued on IV Cardizem gtt Lopressor 50 mg PO BID ordered for ECHO Cardiology consult requested -pt is known to [facility] Bipolar I disorder/Schizoaffective disorder Status: Chronic stable , cont out pt meds Abilify /BuSpar Depression Status: Chronic on Klonopin/Amitriptyline /Effexor Qtc 447 Dyslipidemia Status: Chronic not on statin Fasting lipid panel ordered Epilepsy Status: Chronic no recent Sz activity On Lamictal GERD (gastroesophageal reflux disease) Status: Chronic on PPI H/O migraine Status: Chronic on Topamax Hypothyroidism Status: Chronic TSH elevated > 66 ; Free T4 0.45 L /T3 1.49 L was on Levothyroxine 200 mcg daily pt admits of taking meds on regular basis will adjust dose to increase 225 mcg daily repeat TSH in 4-6 weeks MAURO (obstructive sleep apnea) Status: Chronic intolerant of CPAP in past FULL CODE DVT PROPHYLAXIS : on Eliquis DISPOSITION ; pt reports of falling at home PT/OT eval requested would like to have home health visiting nurse had service through [facility] in past Social service consulted for discharge planning expected to be discharged home when medically stable Medicine follow up with Dr Brian Salas Cardiology follow up with Dr Gabe Swan Level of Care Telemetry Advanced Directives Existing Advance Directive: No Existing Living Will: No Existing Power of Real Estate Consultant: No Existing Health Care Proxy: No Resuscitation Status FULL RESUSCITATION VTE Prophylaxis VTE Risk Assessment Done? Y/N: Yes Risk Level: High Given or contraindicated: Other Anticoagulation (ELIQUIS) Note In my clinical judgment this beneficiary meets acute admission criteria, established by [facility], that includes being hospitalized through two midnights. Additional Copies To Brian Salas D.O.
[2016-11-08] MEDS ORDERED: ALUMINUM/MAGNESIUM/SIMETH (MAALOX MAX) 30 ML UDC PO PRN (23:45)
[2016-11-08] MEDS ORDERED: MAGNESIUM HYDROXIDE SUSP 30 ML UDC PO PRN (23:45)
[2016-11-08] MEDS ORDERED: POLYETHYLENE (MIRALAX) 17 GM PACK PO PRN (23:45)
[2016-11-08] MEDS ORDERED: ONDANSETRON INJ 2 MG/ML 2 ML VIAL IV PRN (23:45)
[2016-11-08] MEDS ORDERED: ZOLPIDEM TARTRATE 5 MG TAB PO PRN (23:45)
[2016-11-08] MEDS ORDERED: NITROGLYCERIN 0.4 MG SL PER TAB CHARGE SL PRN (23:45)
[2016-11-08] MEDS ORDERED: ACETAMINOPHEN 325 MG TAB PO PRN (23:45)
[2016-11-08 23:59] VITALS: BP 153/92; PULSE 140; O2SAT 96
[2016-11-09] VITALS (7 sets, daily range): BP systolic 125–159; BP diastolic 77–104; PULSE 67–117; TEMP 36.4–37; O2SAT 90–96
[2016-11-09] MEDS ORDERED: METOPROLOL TARTRATE 1 MG/ML VIAL IV PRN
[2016-11-09] MEDS ORDERED: LEValbuterol HFA 15GM INHALER INH PRN
[2016-11-09] MEDS ORDERED: DILTIAZEM HCL INJ 125 MG in DEXTROSE 5% 100ML IV PRN (00:15)
[2016-11-09] MEDS ORDERED: NURSING VERBAL MED ORDER ONE (00:45)
[2016-11-09] MEDS: CLONAZEPAM 0.5 MG TAB PO SCH ×3 (00:53→21:09)
[2016-11-09] MEDS: APIXABAN 2.5 MG TAB PO SCH ×3 (00:54→21:16)
[2016-11-09] MEDS: METOPROLOL TARTRATE 50 MG TAB PO SCH ×2 (00:54→09:05)
[2016-11-09] MEDS ORDERED: BusPIRone 15 MG TAB PO ONE (01:00)
[2016-11-09] MEDS: LEVOTHYROXINE 200 MCG TAB PO SCH (06:10)
[2016-11-09 06:34] LABS: CHOLESTEROL 200 mg/dl (0-200); CKMB/CK RATIO 2.6 (0-3.0); HDL CHOLESTEROL 40 mg/dl; LDL CHOLESTEROL CALCULATED 109 mg/dl; TRIGLYCERIDES 256 mg/dl (0-150); VERY LOW DENSITY LIPOPROT CALC 51 mg/dl
[2016-11-09] MEDS: BusPIRone 15 MG TAB PO SCH ×2 (09:05→21:11)
[2016-11-09] MEDS: ASPIRIN 81 MG ECTAB PO SCH (09:05)
[2016-11-09] MEDS: DICYCLOMINE HCL 20 MG TAB PO SCH ×4 (09:06→21:14)
[2016-11-09] MEDS: TOPIRAMATE 100 MG TAB PO SCH ×2 (09:06→21:15)
[2016-11-09] MEDS: VENLAFAXINE HCL XR 150 MG CAPXR PO SCH (09:06)
[2016-11-09] MEDS: FUROSEMIDE 20 MG TAB PO SCH (09:07)
[2016-11-09] MEDS: PANTOprazole SOD 40 MG TAB PO SCH (09:07)
[2016-11-09] MEDS: CEROVITE ADV FORMULA TAB PO SCH (09:07)
[2016-11-09] MEDS: OXYCODONE HCL IR 5 MG TAB (IMMEDIATE RELEASE) PO PRN ×2 (09:18→18:11)
[2016-11-09] MEDS ORDERED: LEVOTHYROXINE 25 MCG TAB PO ONE (10:00)
--- NOTE | 2016-11-09 10:03 | Progress Note ---
Internal Med Progress Note Date of Service: Nov 09, 2016. Provider Documentation: SUBJECTIVE: Patient is seen and examined at bedside. States having palpitations, intermittent dizziness. Denies chest pain, SOB. Also states not able to sleep well overnight and has been having multiple semiformed BMs which she attributes to Irritable bowel syndrome. Denies any abd pain. OBJECTIVE: Vital Signs-as noted below Physical Exam: Vitals signs as noted above General Appearance:Obese, no apparent distress Head: normocephalic, Atraumatic Eyes: normal inspection, EOMI, PERRL Neck: supple, no JVD, Trachea midline Respiratory/Chest: Normal breath sounds, CTA, No accessory muscle use Cardiovascular: Irregularly, irregular, No murmur Abdomen/GI:Soft, Non tender, Bowel sounds present, obese Extremities/Musculoskelatal:normal inspection, +1 b/l edema Neurologic/Psych:AAOX3, grossly no focal neurological deficits Skin: normal color, warm Lab data as noted below. ASSESSMENT & PLAN: A.Flutter: H/O P.AF S/P LOLI cardioversion in Sep 2015 [place] Cardiac stress test in October 2015 was negative for stress inducible ischemia BB dose recently adjusted secondary to bradycardia and dizziness On Chronic anticoagulation with Eliquis Currently on Cardizem ggt, Also received IV Lopressor Troponin X2: Negative Plan to be started on sotalol per cardiology Appreciate cardiology help H/O Asthma: on Breo at home Currently no signs of exacerbation Continue inhalers Bipolar I disorder/Schizoaffective disorder/ Depression Stable Continue home meds Dyslipidemia Continue statin Epilepsy Stable Continue Lamictal GERD: Stable PPI H/O migraine Currently denies any headache Continue Topamax Hypothyroidism TSH elevated: 66 ; Free T4 0.45 L /T3 1.49 L Patient was on Levothyroxine 200 mcg daily Dose adjusted: Increase 225 mcg daily Needs repeat TSH in 4-6 weeks H/O Irritable bowel syndrome Denies abd pain Imodium PRN MAURO (obstructive sleep apnea) Intolerant to CPAP in past Obesity: BMI:52.1 CODE STATUS: FULL CODE DVT PROPHYLAXIS : on Eliquis DISPOSITION ; Continue monitoring in Tele Vital Signs: Date Time Temp Pulse Resp B/P Pulse Ox O2 Delivery O2 Flow Rate FiO2 11/10/16 05:10 36.4 86 18 118/87 95 Room Air 11/10/16 04:00 96 Room Air 11/10/16 00:00 96 Room Air 4/11/17 23:40 36.4 104 20 147/90 94 Room Air 11/09/16 20:00 96 Room Air 11/09/16 18:30 36.4 107 18 134/81 96 Room Air 11/09/16 16:00 Room Air 11/09/16 15:44 36.4 78 19 159/99 95 Room Air 11/09/16 12:00 Room Air 11/09/16 11:24 36.6 117 18 140/104 94 Room Air 11/09/16 09:02 36.7 93 20 139/82 96 Room Air 11/09/16 08:00 Room Air 11/09/16 08:00 Room Air Lab Results: Results Past 24 Hours Test 11/09/16 13:47 11/10/16 05:24 Range/Units Total Creatine Kinase 96 26-192 U/L Creatine Kinase MB 1.8 0.5-3.6 ng/ml Creatine Kinase MB Ratio 1.9 0-3.0 Troponin I < 0.015 0-0.045 ng/ml White Blood Count 9.36 4.8-10.8 K/uL Red Blood Count 5.08 4.2-5.4 M/uL Hemoglobin 15.9 12.0-16.0 g/dL Hematocrit 47.8 37-47 % Mean Corpuscular Volume 94.1 80-100 fL Mean Corpuscular Hemoglobin 31.3 25-34 pg Mean Corpuscular Hemoglobin Concent 33.3 32-36 g/dl Platelet Count 232 130-400 K/uL Mean Platelet Volume 11.1 7.4-10.4 fL Neutrophils (%) (Auto) 60.1 % Lymphocytes (%) (Auto) 30.2 % Monocytes (%) (Auto) 6.5 % Eosinophils (%) (Auto) 2.7 % Basophils (%) (Auto) 0.4 % Neutrophils # (Auto) 5.62 1.4-6.5 K/uL Lymphocytes # (Auto) 2.83 1.2-3.4 K/uL Monocytes # (Auto) 0.61 0.11-0.59 K/uL Eosinophils # (Auto) 0.25 0-0.5 K/uL Basophils # (Auto) 0.04 0-0.2 K/uL RDW Standard Deviation 51.2 36.4-46.3 fL RDW Coefficient of Variation 14.8 11.5-14.5 % Immature Granulocyte % (Auto) 0.1 % Immature Granulocyte # (Auto) 0.01 0.00-0.02 K/uL Sodium Level 140 136-145 mmol/L Potassium Level 4.0 3.5-5.1 mmol/L Chloride Level 103 98-107 mmol/L Carbon Dioxide Level 33 21-32 mmol/L Anion Gap 4.0 3-11 mmol/L Blood Urea Nitrogen 11 7-18 mg/dl Creatinine 0.90 0.60-1.20 mg/dl Est Creatinine Clear Calc Drug Dose 111.6 ml/min Estimated GFR () 84.6 Estimated GFR (Non- 73.0 BUN/Creatinine Ratio 12.7 10-20 Random Glucose 128 70-99 mg/dl Calcium Level 9.4 8.5-10.1 mg/dl Magnesium Level 2.1 1.8-2.4 mg/dl Thyroid Stimulating Hormone (TSH) 67.000 0.300-4.500 uIu/ml
--- NOTE | 2016-11-09 10:37 | Clinical Documentation Query ---
YONI Watts : CLINICAL DOCUMENTATION QUERY Patient is a 51 year old female admitted for evaluation and treatment of atrial flutter. BMI noted to be 52.5 Kg/m*m. In order to capture this important and always relevant clinical information, the associated clinical condition must be explicitly documented in the medical record by the provider. As appropriate, consider documentation as suggested below. Thank you. In your clinical opinion, does your patients physical assessment include: (x ) Obesity ( ) Other explanation of clinical findings (Please Explain) ( ) Unable to determine (Please Define) ( ) Need to Discuss ( ) Not Agree The medical record reflects the following clinical findings, treatment, and risk factors. Clinical Indicators: BMI 52.5 Kg/m*m Treatment: AHA diet Risk Factors: Poor eating habits, physical inactivity, some combination of the two. Please clarify and document your clinical opinion in the progress notes and discharge summary. Terms such as "probable", "suspected", "likely", "questionable", "possible", or "still to be ruled out" are acceptable. IF IN AGREEMENT, YOU MUST DOCUMENT ABOVE DIAGNOSTIC STATEMENT IN DAILY PROGRESS NOTES AND DISCHARGE SUMMARY. This document is not part of the patient's record. Thank You, Rui Conley, RN [phone]
[2016-11-09] MEDS ORDERED: LOPERAMIDE HCL 2 MG CAP PO PRN (10:45)
[2016-11-09] MEDS ORDERED: PERFLUTREN LIPID MICROSPHERE (DEFINITY) IV ONE (10:48)
--- NOTE | 2016-11-09 11:40 | Cardiology Consultation ---
Cardiology Consultation Date of Service Nov 09, 2016. (Renee Castellon PA-C) Cardiology Consultation Cardiology Consultation History of Present Illness: Sofia Melton is a 51 year old female with past cardiac history significant for paroxysmal atrial flutter for which she follows with Sloane Gonsalez PA-C and Dr. Swan as an outpatient. She was initially admitted in Sep 2015 for atrial flutter with RVR. She underwent LOLI/CV with successful conversion to NSR. She was started on metoprolol therapy and Eliquis for anticoagulation therapy. She underwent nuclear stress testing in October 2015 which was negative for inaudible ischemia. She had an updated echo in August 2016 with preserved LV function, severe diastolic dysfunction, moderate left atrial enlargement, and pulmonary hypertension. Antiarrhythmic therapy was contemplated during that admission, however given multiple interactions with psychotropic therapies, this was not recommended due to high risk of prolonged QT. She had outpatient telemetry monitors without recurrent afib. Most recently patient was evaluated in the office with complaints of dizziness and orthostatic hypotension, triamterene-hctz was discontinued and furosemide PRN ordered. Metoprolol was also reduced from 100 mg BID to 75 mg BID due to marked sinus bradycardia. TSH was also markedly elevated and levothyroxine adjusted. Other underlying history includes chronic schizoaffective disorder, fibromyalgia , depression, nonconvulsive seizure disorder, asthmatic lung disease, moderate ( untreated) obstructive sleep apnea, hypertension, dyslipidemia, and hypothyroidism. Patient states she was in usual state of health until yesterday morning when she awoke with palpitations and shortness of breath. Symptoms lasted most of the morning and she came to ER for evaluation. In ER she was found to have recurrent atrial flutter with RVR. She was started on IV diltiazem with improvement in her rates. Patient states she has been compliant with all medications, not skipping any doses including Eliquis. However she does mentions she is getting "confused" wiht all recent med changes and was recently asked to bring in bottles for full med reconciliation at next appointment. She has not yet done this. At time of consult, patient feeling ok. Continues to note palpitations and irregular heart beat with associated SOB. No chest pain. No significant dizziness. No orthopnea, PND or increased LE edema. She notes issues with IBS overnight and significant diarrhea. Requesting immodium. Review of Systems: See HPI for pertinent positives. All other 10 point review of systems is negative PMH/Problem List: fibromyalgia EPILEPSY;NONCONV,W/O INTRACTABLE Hypothyroidism DEPRESS PSYCHOSIS SCHIZOAFFECTIVE-CHRONIC Esophageal reflux Dyslipidemia, goal LDL below 130 Hypersomnia with sleep apnea HTN, goal below 140/90 MAURO - Moderate Incidental lung nodule, > 3mm and < 8mm ETD (eustachian tube dysfunction) Conductive hearing loss, unilateral Asthma, mild intermittent, well-controlled DDD (degenerative disc disease), lumbar S/P lumbar laminectomy Typical atrial flutter (HCC) PAF (paroxysmal atrial 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) (HCC) Anticoagulation management encounter Irritable bowel syndrome with diarrhea Past Surgical History Vaginal hysterectomy 1997 Tubal Ligation Removal of tonsils, under age 10 Laparoscopy; cholecystectomy Sinus surgery Multiple spinal injections Lumbar hemilaminectomy 07/08/2014 Colonoscopy, diagnostic 10/09/2014 Create eardrum opening,local anesth Egd, flexible, diagnostic Family History: Father with an NE at an unknown age. Mother with lung cancer in her 70s. Both the paternal grandfather and maternal grandfather had CAD. Patient has one brother and one sister, without cardiac issues. Social History: Reformed smoker, quit in 2010 after smoking 1 ppd x 20 years. No alcohol. Denies illegal drug use. Disabled. Boyfriend. Lives at [address] [facility]. Disabled due to psychosis. Review of patient's allergies indicates: Ethanol, Hydantoins, Phenytoin, Thioridazine Current Outpatient Prescriptions Reported Home Medications Medications Dose Route/Sig Max Daily Dose Days Date Category Levalbuterol Tartrate Hfa (Levalbuterol Tartrate) 45 Mcg/Act Aer 1-2 Puffs INH Q4 PRN 11/08/16 Reported Levothyroxine Sodium 200 Mcg Tab 200 Mcg PO QAM 11/08/16 Reported Topamax (Topiramate) 50 Mg Tab 100 Mg PO BID 11/08/16 Reported Roxicodone Ir (Oxycodone HCl) 5 Mg Tab 5 Mg PO TID PRN 08/07/16 Rx Nexium (Esomeprazole Magnesium) 40 Mg Cap 40 Mg PO DAILY 08/07/16 Reported Lasix (Furosemide) 20 Mg Tab 1 Tab PO DAILY 5 07/08/16 Rx Breo Ellipta (Fluticasone Furoate-Vilanterol) 1 Inh Inh 1 Puff PO QAM 06/28/16 Reported Eliquis (Apixaban) 2.5 Mg Tab 5 Mg PO BID 10/10/15 Reported Lopressor (Metoprolol Tartrate) 50 Mg Tab 50 Mg PO BID 10/10/15 Reported Zanaflex (Tizanidine Hcl) 2 Mg Tab 2 Mg PO Q8 PRN 10/10/15 Reported Multiple Vitamins/Womens (Multiple Vitamins W/ Minerals) 1 Tab Tab 1 Tab PO DAILY 10/10/15 Reported Abilify (Aripiprazole) 30 Mg Tab 30 Mg PO HS 08/29/15 Reported Dicyclomine HCl 20 Mg Tab 20 Mg PO QID 08/29/15 Reported Klonopin (Clonazepam) 0.5 Mg Tab 0.5 Mg PO BID 06/11/14 Reported Effexor Extended Rel (Venlafaxine Hcl) 150 Mg Capcr 150 Mg PO QAM 05/13/14 Reported Simvastatin 20 Mg Tab 20 Mg PO HS 05/13/14 Reported Elavil (Amitriptyline Hcl) 10 Mg Tab 10 Mg PO HS 03/25/14 Reported Buspirone Hcl 30 Mg Tab 30 Mg PO BID 10/13/13 Reported Lamictal (Lamotrigine) 200 Mg Tab 200 Mg PO BID 09/09/13 Reported OBJECTIVE/PHYSICAL EXAMINATION: Last 8 Hrs Date Time Temp Pulse Resp B/P Pulse Ox O2 Delivery O2 Flow Rate FiO2 11/09/16 04:00 37.0 67 17 125/77 90 Room Air 11/09/16 04:00 96 Room Air General: A&Ox3. NAD. Elevated BMI. HEENT: Normocephalic. Atraumatic. PER. Conjunctiva pink, sclera clear. Neck: No carotid bruits. No JVD. Heart: Irregularly irregular. No murmur appreciated. Lungs: Diminished throughout. No abnormal breath sounds appreciated. Abdomen: +BS. Extremities: Trace edema. No cellulitis. No clubbing. No cyanosis. Pulses: radial=2/4, posterior tibial=2/4. Data: EKG on admission 11/08/16: Atrial flutter with RVR at 127 bpm Repeat EKG on 11/08/16: atrial flutter with RVR and variable AV block at 112 bpm EKG this AM 11/09/16: Atrial flutter with variable A-V block Nonspecific ST abnormality QT/QTc 372/437 ms Telemetry - persistent atrial flutter wiht variable AV block, rates predominantly 90-110 bpm Chest xray: no active disease Labs: Last 24 Hours Test 11/08/16 17:17 11/08/16 17:58 11/09/16 05:41 White Blood Count 9.80 K/uL Red Blood Count 4.50 M/uL Hemoglobin 13.6 g/dL Hematocrit 41.4 % Mean Corpuscular Volume 92.0 fL Mean Corpuscular Hemoglobin 30.2 pg Mean Corpuscular Hemoglobin Concent 32.9 g/dl Platelet Count 213 K/uL Mean Platelet Volume 11.3 fL Neutrophils (%) (Auto) 65.2 % Lymphocytes (%) (Auto) 25.7 % Monocytes (%) (Auto) 5.5 % Eosinophils (%) (Auto) 2.8 % Basophils (%) (Auto) 0.5 % Neutrophils # (Auto) 6.39 K/uL Lymphocytes # (Auto) 2.52 K/uL Monocytes # (Auto) 0.54 K/uL Eosinophils # (Auto) 0.27 K/uL Basophils # (Auto) 0.05 K/uL RDW Standard Deviation 49.5 fL RDW Coefficient of Variation 14.6 % Immature Granulocyte % (Auto) 0.3 % Immature Granulocyte # (Auto) 0.03 K/uL Prothrombin Time 10.7 SECONDS Prothromb Time International Ratio 1.0 Activated Partial Thromboplast Time 30.5 SECONDS Partial Thromboplastin Ratio 1.2 Sodium Level 137 mmol/L Potassium Level 3.6 mmol/L Chloride Level 100 mmol/L Carbon Dioxide Level 30 mmol/L Anion Gap 7.0 mmol/L Blood Urea Nitrogen 6 mg/dl Creatinine 0.93 mg/dl Est Creatinine Clear Calc Drug Dose 108.0 ml/min Estimated GFR () 81.3 Estimated GFR (Non- 70.2 BUN/Creatinine Ratio 6.7 Random Glucose 124 mg/dl Calcium Level 9.0 mg/dl Total Bilirubin 0.2 mg/dl Aspartate Amino Transf (AST/SGOT) 24 U/L Alanine Aminotransferase (ALT/SGPT) 39 U/L Alkaline Phosphatase 125 U/L Total Creatine Kinase 105 U/L 90 U/L Creatine Kinase MB 2.6 ng/ml 2.3 ng/ml Creatine Kinase MB Ratio 2.5 2.6 Total Protein 7.5 gm/dl Albumin 3.5 gm/dl Globulin 4.0 gm/dl Albumin/Globulin Ratio 0.9 Thyroid Stimulating Hormone (TSH) 66.000 uIu/ml Free Thyroxine 0.45 ng/dl Free Triiodothyronine 1.49 pg/ml Hepatitis C Antibody Screen NEG Bedside Troponin I 0.030 ng/ml Troponin I < 0.015 ng/ml Triglycerides Level 256 mg/dl Cholesterol Level 200 mg/dl HDL Cholesterol 40 mg/dl LDL Cholesterol, Calculated 109 mg/dl VLDL Cholesterol, Calculated 51 mg/dl Cholesterol/HDL Ratio 5.0 Prior Data Reviewed: August 09, 2016 TTE Interpretation Summary (as per Dr. Swan): There was sinus bradycardia during the examination. The left ventricular cavity size is normal. The LV wall thickness is mildly increased (concentric). The left ventricular wall motion is normal. The qualitative LV ejection fraction is 55-59% (normal). The left ventricular diastolic function is severely abnormal (grade III). The right ventricular free wall thickness is increased (> 0.5 cm). The left atrium is moderately enlarged. Dilated IVC with reduced collapsability with sniff indicates an elevated right atrial pressure of 15 mmHg. Mild pulmonary hypertension is present. A trivial posterior loculated pericardial effusion is present. No significant valvular disease is present. November 06, 2015 Lexiscan Interpretation Summary (as per Dr. Amado): Myocardial perfusion imaging is normal. Overall left ventricular systolic function was normal without regional wall motion abnormalities. The left ventricular ejection fraction was >70%. There are no prior studies available for comparison. ZioXT monitoring x ~5 days in October 2015 revealed sinus with an average heart rate of 71 bpm, minimum heart rate of 56 bpm, and a maximal heart rate of 113 bpm. Patient 's symptoms correlated with sinus rhythm. There was no evidence of paroxysmal atrial 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 or atrial flutter. ASSESSMENT: 1. Recurrent atrial flutter with RVR, on Eliquis 2. recent Sinus bradycardia, resulting in reduction in beta mary therapy 3. diastolic heart failure, fluid status improved off verapamil. 4. Hypertension. 5. Medication non compliance? 6. Hypothyroidism RECOMMENDATIONS/PLAN: Stop IV diltiazem, stop metoprolol Initiate Sotalol 80 mg BID starting this AM. Daily EKG with monitoring QT/QTc Continue Eliquis for anticoagulation therapy. Consider DCCV on day #3 of Sotalol load if patient does not convert to NSR. Recheck TSH/T4 ? Was 6.05 on 10/13 as outpatient. Case discussed with Dr. Swan. Will follow. (Renee Castellon PA-C) Patient seen and examined Assessment as above. Echo preserved LV function Plan maintain telemetry with initiation of sotalol If no spontaneous conversion consider cardioversion later this week (Gabe Swan M.D.)
[2016-11-09] MEDS ORDERED: SOTALOL HCL 80 MG TAB PO ONE (12:30)
[2016-11-09 14:34] LABS: CKMB/CK RATIO 1.9 (0-3.0)
--- NOTE | 2016-11-09 16:31 | ECHOCARDIOGRAM REPORT ---
*NOTICE TO RECEIVING REPUBLICAN AGENCY This information is strictly Confidential and protected under [place] law. [place] law prohibits you from making any further disclosure of this information unless further disclosure is expressly permitted by the written consent of the person to whom it pertains or is authorized by law. A general authorization for the release of medical or other information is not sufficient for this purpose. Hospital accepts no responsibility if the information is made available to any other person, INCLUDING THE PATIENT. Interpretation Summary * Name: YISEL MCGEE Study Date: 11/09/2016 10:27 AM BP: 125/77 mmHg * Patient Location: .MSICU\S\E112\S\1 HR: 67 * : 1965 (M/d/yyyy) Gender: Female Height: 67 in * Age: 51 yrs Ethnicity: CA Weight: 335 lb * Ordering Physician: Rosario Nayak * Performed By: Fernanda Jin * * Reason For Study: A-FLUTTER * BSA: 2.5 m2 * -- Conclusions -- * There were technical limitations due to patient'sbody habitus, atrial flutter * A contrast injection of Definity was performed to improve assessment of LV function. * The left ventricle is normal in size. * There is mild concentric left ventricular hypertrophy. * The left ventricular wall motion is normal. * Ejection Fraction = 55-60%. * The left atrial size is normal. Procedure Details * A complete two-dimensional transthoracic echocardiogram was performed (2D, M-mode, Doppler and color flow Doppler). * There were technical limitations due to patient'sbody habitus * A contrast injection of Definity was performed to improve assessment of LV function. * Contrast was injected into an intravenous site in the left arm. * One vial of Definity ultrasound contrast was diluted in normal saline to a total volume of 10 ml. A total of '2' ml of solution was administered during imaging. * Lot # [id number] of Definity utilized for procedure. * Expiration date 11/16. * The attending nurse who injected the contrast agent was FERNANDA HINTON RN. Left Ventricle * The left ventricle is normal in size. * There is mild concentric left ventricular hypertrophy. * Left ventricular systolic function is normal. * Ejection Fraction = 55-60%. * The left ventricular wall motion is normal. Right Ventricle * The right ventricle is normal in size and function. Atria * The left atrial size is normal. * Right atrial size is normal. * No ASD detected; PFO is not assessed. Mitral Valve * The mitral valve anatomy is normal. * There is no mitral valve stenosis. * There is trace mitral regurgitation. Tricuspid Valve * The tricuspid valve is not well visualized, but is grossly normal. * There is no tricuspid stenosis. * There is trace tricuspid regurgitation. Aortic Valve * The aortic valve is trileaflet. * No hemodynamically significant valvular aortic stenosis. * No aortic regurgitation is present. Pulmonic Valve * The pulmonic valve is not well visualized. Great Vessels * The aortic root is normal size. Pericardium/Pleural * There is no pericardial effusion. Great Vessels * Normal inferior vena cava diameter and respiratory variation suggests normal central venous pressure. MMode 2D Measurements and Calculations IVSd 1.5 cm IVSs 1.7 cm LVIDd 4.3 cm LVIDs 2.7 cm LVPWd 1.5 cm LVPWs 2.5 cm IVS/LVPW 0.96 FS 36.7 % EDV(Teich) 81.2 ml ESV(Teich) 26.9 ml EF(Teich) 66.8 % EDV(cubed) 77.3 ml ESV(cubed) 19.6 ml EF(cubed) 74.6 % % IVS thick 11.5 % % LVPW thick 62.0 % LV mass(C)d 259.4 grams LV mass(C)dI 103.0 grams/m\S\2 LV mass(C)s 253.4 grams LV mass(C)sI 100.6 grams/m\S\2 SV(Teich) 54.3 ml SI(Teich) 21.6 ml/m\S\2 SV(cubed) 57.7 ml SI(cubed) 22.9 ml/m\S\2 ACS 1.3 cm LVOT diam 1.9 cm LVOT area 2.8 cm\S\2 LVAd ap4 28.7 cm\S\2 LVLd ap4 8.1 cm EDV(MOD-sp4) 87.0 ml EDV(sp4-el) 87.1 ml LVAs ap4 14.6 cm\S\2 LVLs ap4 6.2 cm ESV(MOD-sp4) 28.0 ml ESV(sp4-el) 29.4 ml EF(MOD-sp4) 67.8 % EF(sp4-el) 66.3 % LVAd ap2 29.4 cm\S\2 LVLd ap2 8.1 cm EDV(MOD-sp2) 87.8 ml EDV(sp2-el) 90.6 ml LVAs ap2 14.7 cm\S\2 LVLs ap2 6.9 cm ESV(MOD-sp2) 27.2 ml ESV(sp2-el) 26.7 ml EF(MOD-sp2) 69.1 % EF(sp2-el) 70.6 % LVLd %diff 0.62 % EDV(MOD-bp) 87.3 ml LVLs %diff 10.2 % ESV(MOD-bp) 26.6 ml EF(MOD-bp) 69.5 % SV(MOD-sp4) 59.0 ml SI(MOD-sp4) 23.4 ml/m\S\2 SV(MOD-sp2) 60.6 ml SI(MOD-sp2) 24.1 ml/m\S\2 SV(MOD-bp) 60.6 ml SI(MOD-bp) 24.1 ml/m\S\2 SV(sp4-el) 57.8 ml SI(sp4-el) 22.9 ml/m\S\2 SV(sp2-el) 63.9 ml SI(sp2-el) 25.4 ml/m\S\2 Doppler Measurements and Calculations MV E max maycol 109.4 cm/sec MV dec time 0.17 sec Ao V2 max 122.3 cm/sec Ao max PG 6.0 mmHg Ao max PG (full) 2.4 mmHg PIERO(V,A) 2.2 cm\S\2 PIERO(V,D) 2.2 cm\S\2 LV V1 max PG 3.6 mmHg LV V1 max 95.1 cm/sec PA V2 max 102.5 cm/sec PA max PG 4.2 mmHg
[2016-11-09] MEDS ORDERED: POTASSIUM CHLORIDE 10 MEQ TABCR PO STA (17:20)
[2016-11-09] MEDS: FLUTICASONE/SALMETEROL 100/50 (ADVAIR) 14 PUFF/1 INHALER INH SCH (21:09)
[2016-11-09] MEDS: SOTALOL HCL 80 MG TAB PO SCH (21:12)
[2016-11-09] MEDS: ARIPIprazole TAB 15 MG TAB PO SCH (21:14)
[2016-11-09] MEDS: SIMVASTATIN 20 MG TAB PO SCH (21:14)
[2016-11-09] MEDS: AMITRIPTYLINE HCL 10 MG TAB PO SCH (21:15)
[2016-11-10] VITALS (10 sets, daily range): BP systolic 115–138; BP diastolic 78–87; PULSE 77–110; TEMP 36.2–36.7; O2SAT 95–96
[2016-11-10 05:55] LABS: BASO % 0.4 %; BASO ABS # 0.04 K/uL (0-0.2); COMPLETE YES; EOS % 2.7 %; HEMATOCRIT 47.8 % (37-47); IG% 0.1 %; LYMPH % 30.2 %; LYMPH ABS # 2.83 K/uL (1.2-3.4); MEAN CELL VOLUME 94.1 fL (80-100); MEAN CORPUSCULAR HEMOGLOBIN 31.3 pg (25-34); MEAN CORPUSCULAR HGB CONC 33.3 g/dl (32-36); MEAN PLATELET VOLUME 11.1 fL (7.4-10.4); MONO % 6.5 %; NEUT % 60.1 %; PLATELET COUNT 232 K/uL (130-400); RED BLOOD COUNT 5.08 M/uL (4.2-5.4); WHITE BLOOD COUNT 9.36 K/uL (4.8-10.8)
[2016-11-10] MEDS: LEVOTHYROXINE 25 MCG TAB PO SCH (06:04)
[2016-11-10] MEDS: LEVOTHYROXINE 200 MCG TAB PO SCH (06:04)
[2016-11-10 06:14] LABS: BUN/CREATININE RATIO 12.7 (10-20); CALCIUM 9.4 mg/dl (8.5-10.1); CREATININE 0.9 mg/dl (0.60-1.20); MAGNESIUM 2.1 mg/dl (1.8-2.4)
[2016-11-10] MEDS: ASPIRIN 81 MG ECTAB PO SCH (08:30)
[2016-11-10] MEDS: APIXABAN 2.5 MG TAB PO SCH ×2 (08:31→20:07)
[2016-11-10] MEDS: DICYCLOMINE HCL 20 MG TAB PO SCH ×4 (08:31→20:10)
[2016-11-10] MEDS: FUROSEMIDE 20 MG TAB PO SCH (08:32)
[2016-11-10] MEDS: FLUTICASONE/SALMETEROL 100/50 (ADVAIR) 14 PUFF/1 INHALER INH SCH ×2 (08:32→20:07)
[2016-11-10] MEDS: VENLAFAXINE HCL XR 150 MG CAPXR PO SCH (08:32)
[2016-11-10] MEDS: TOPIRAMATE 100 MG TAB PO SCH ×2 (08:32→20:10)
[2016-11-10] MEDS: PANTOprazole SOD 40 MG TAB PO SCH (08:33)
[2016-11-10] MEDS: BusPIRone 15 MG TAB PO SCH ×2 (08:33→20:09)
[2016-11-10] MEDS: CEROVITE ADV FORMULA TAB PO SCH (08:33)
[2016-11-10] MEDS: CLONAZEPAM 0.5 MG TAB PO SCH ×2 (08:43→20:07)
[2016-11-10] MEDS: OXYCODONE HCL IR 5 MG TAB (IMMEDIATE RELEASE) PO PRN ×2 (08:49→16:40)
[2016-11-10] MEDS: SOTALOL HCL 80 MG TAB PO SCH ×2 (08:56→20:10)
--- NOTE | 2016-11-10 11:06 | Cardiology Follow-Up ---
Subjective General Date of Service: Nov 10, 2016. Chief Complaint: atrial flutter Pt evaluation today including: conversation w/ patient, physical exam, chart review, lab review, review of studies, review of inpatient medication list History of Present Illness Patient continues to note palpitations/fluttering in chest. no chest pain or SOB. Notes ongoing fatigue and weakness. No cough, fever, chills. No orthopnea, PND or edema. Allergies Coded Allergies: Hydantoins (Verified Allergy, Unknown, 11/08/16) Phenytoin (Verified Allergy, Unknown, 11/08/16) Ethanol (Verified Adverse Reaction, Severe, SEIZURES, 11/08/16) SEIZURES Thioridazine (Verified Adverse Reaction, Severe, SEIZURES, 11/08/16) SEIZURES Social History Smoking Status: Never Smoker Hx Tobacco Use In Past Year?: No Hx Alcohol Use - Type And Amou: Yes (OCC BEER) Hx Substance Use - Type And Am: Yes (VICODON, LYRICA) Problem List Medical Problems: (1) Atrial flutter Status: Acute (2) Bilateral leg edema Status: Acute (3) Bronchitis Status: Acute (4) Urinary tract infection Status: Acute Review of Systems Respiratory: + see HPI, No cough, No dyspnea at rest, No dyspnea on exertion, No hemoptysis, No problem reported, No shortness of breath, No sputum, No wheezing Cardiac: + palpitations, No PND, No chest pain, No edema, No orthopnea Physical Exam Vital Signs Last Vital Signs Documentation Date Time Temp Pulse Resp B/P Pulse Ox O2 Delivery O2 Flow Rate FiO2 11/10/16 07:57 36.3 107 20 115/84 95 Room Air Physical Exam Constitutional: General Apperance: heathly-appearing, obese Level of Distress: NAD Psychiatric: Mental Status: active & alert, anxious Orientation: to time, to place, to person Memory: recent memory normal Head: normocephalic Eyes: Pupils: PERRLA Neck: supple Lungs: Respiratory effort: good air movement Auscultation: no wheezing, no rales/crackles, no rhonchi Cardiovascular: Heart Auscultation: no murmurs, no rubs, irregular rate rhythm Abdomen: Bowel Sounds: normal Inspection & Palpation: soft, non-distended Extremities: no edema Assessment and Plan Assessment and Plan ASSESSMENT: 1. Recurrent/persistent atrial flutter with RVR, on Eliquis. 2. recent Sinus bradycardia as outpatient, resulting in reduction in beta mary therapy 3. diastolic heart failure, fluid status improved off verapamil. 4. Hypertension. 5. Medication non compliance? 6. Hypothyroidism RECOMMENDATIONS/PLAN: Stable echo findings. Preserved LV function with no significant valvular disease. Normal left atrial size. Continue Sotalol 80 mg BID. QT/QTc at 400/502 ms this AM. Repeat EKG this afternoon. Continue Eliquis for anticoagulation therapy. Consider DCCV on day #3 of Sotalol load if patient does not convert to NSR. Significantly elevated TSH - Hospitalist adjusting levothyroxine. Case discussed with Dr. Swan. Will follow. Agree with plan and assessment as above. Will likely require cardioversion, tentatively Tuesday Gabe Swan MD Laboratory Results Last 24 Hours Test 11/09/16 13:47 11/10/16 05:24 Total Creatine Kinase 96 U/L Creatine Kinase MB 1.8 ng/ml Creatine Kinase MB Ratio 1.9 Troponin I < 0.015 ng/ml White Blood Count 9.36 K/uL Red Blood Count 5.08 M/uL Hemoglobin 15.9 g/dL Hematocrit 47.8 % Mean Corpuscular Volume 94.1 fL Mean Corpuscular Hemoglobin 31.3 pg Mean Corpuscular Hemoglobin Concent 33.3 g/dl Platelet Count 232 K/uL Mean Platelet Volume 11.1 fL Neutrophils (%) (Auto) 60.1 % Lymphocytes (%) (Auto) 30.2 % Monocytes (%) (Auto) 6.5 % Eosinophils (%) (Auto) 2.7 % Basophils (%) (Auto) 0.4 % Neutrophils # (Auto) 5.62 K/uL Lymphocytes # (Auto) 2.83 K/uL Monocytes # (Auto) 0.61 K/uL Eosinophils # (Auto) 0.25 K/uL Basophils # (Auto) 0.04 K/uL RDW Standard Deviation 51.2 fL RDW Coefficient of Variation 14.8 % Immature Granulocyte % (Auto) 0.1 % Immature Granulocyte # (Auto) 0.01 K/uL Sodium Level 140 mmol/L Potassium Level 4.0 mmol/L Chloride Level 103 mmol/L Carbon Dioxide Level 33 mmol/L Anion Gap 4.0 mmol/L Blood Urea Nitrogen 11 mg/dl Creatinine 0.90 mg/dl Est Creatinine Clear Calc Drug Dose 111.6 ml/min Estimated GFR () 84.6 Estimated GFR (Non- 73.0 BUN/Creatinine Ratio 12.7 Random Glucose 128 mg/dl Calcium Level 9.4 mg/dl Magnesium Level 2.1 mg/dl Thyroid Stimulating Hormone (TSH) 67.000 uIu/ml
--- NOTE | 2016-11-10 13:06 | Progress Note ---
Internal Med Progress Note Date of Service: Nov 10, 2016. Provider Documentation: SUBJECTIVE: Patient is seen and examined at bedside. Feels more tired today. Persistent palpitations, intermittent dizziness. Denies chest pain, SOB. OBJECTIVE: Vital Signs-as noted below Physical Exam: Vitals signs as noted above General Appearance:Obese, no apparent distress Head: normocephalic, Atraumatic Eyes: normal inspection, EOMI, PERRL Neck: supple, no JVD, Trachea midline Respiratory/Chest: Normal breath sounds, CTA, No accessory muscle use Cardiovascular: Irregularly, irregular, No murmur Abdomen/GI:Soft, Non tender, Bowel sounds present, obese Extremities/Musculoskelatal:normal inspection, +1 b/l edema Neurologic/Psych:AAOX3, grossly no focal neurological deficits Skin: normal color, warm Lab data as noted below. ASSESSMENT & PLAN: Recurrent A.Flutter with RVR: H/O P.AF S/P LOLI cardioversion in Sep 2015 [place] Cardiac stress test in October 2015 was negative for stress inducible ischemia BB dose recently adjusted secondary to bradycardia and dizziness On Chronic anticoagulation with Eliquis S/P Cardizem ggt, and IV Lopressor Troponin X2: Negative Currently on Sotalol 80 mg BID Monitor QTC Appreciate cardiology help ECHO: Preserved LV function with no significant valvular disease. Normal left atrial size. May need DCCV if patient does not convert to NSR. H/O Asthma: on Breo at home Currently no signs of exacerbation Continue inhalers Bipolar I disorder/Schizoaffective disorder/ Depression Stable Continue home meds Dyslipidemia Continue statin Epilepsy Stable Continue Lamictal GERD: Stable PPI H/O migraine Currently denies any headache Continue Topamax Hypothyroidism TSH elevated: 66 ; Free T4 0.45 L /T3 1.49 L Patient was on Levothyroxine 200 mcg daily Dose adjusted: Increase 225 mcg daily Needs repeat TSH in 4-6 weeks H/O Irritable bowel syndrome Denies abd pain Imodium PRN MAURO (obstructive sleep apnea) Intolerant to CPAP in past Obesity: BMI:52.1 CODE STATUS: FULL CODE DVT PROPHYLAXIS : on Eliquis DISPOSITION ; Continue monitoring in Tele PROCEDURES: ECHO: * There were technical limitations due to patient's body habitus, atrial flutter * A contrast injection of Definity was performed to improve assessment of LV function. * The left ventricle is normal in size. * There is mild concentric left ventricular hypertrophy. * The left ventricular wall motion is normal. * Ejection Fraction = 55-60%. * The left atrial size is normal. Vital Signs: Date Time Temp Pulse Resp B/P Pulse Ox O2 Delivery O2 Flow Rate FiO2 11/10/16 12:00 Room Air 11/10/16 11:40 36.6 77 20 119/79 95 Room Air 11/10/16 08:00 Room Air 11/10/16 07:57 36.3 107 20 115/84 95 Room Air 11/10/16 05:10 36.4 86 18 118/87 95 Room Air 11/10/16 04:00 96 Room Air 11/10/16 00:00 96 Room Air 11/09/16 23:40 36.4 104 20 147/90 94 Room Air 11/09/16 20:00 96 Room Air 11/09/16 18:30 36.4 107 18 134/81 96 Room Air 11/09/16 16:00 Room Air 11/09/16 15:44 36.4 78 19 159/99 95 Room Air Lab Results: Results Past 24 Hours Test 11/09/16 13:47 11/10/16 05:24 Range/Units Total Creatine Kinase 96 26-192 U/L Creatine Kinase MB 1.8 0.5-3.6 ng/ml Creatine Kinase MB Ratio 1.9 0-3.0 Troponin I < 0.015 0-0.045 ng/ml White Blood Count 9.36 4.8-10.8 K/uL Red Blood Count 5.08 4.2-5.4 M/uL Hemoglobin 15.9 12.0-16.0 g/dL Hematocrit 47.8 37-47 % Mean Corpuscular Volume 94.1 80-100 fL Mean Corpuscular Hemoglobin 31.3 25-34 pg Mean Corpuscular Hemoglobin Concent 33.3 32-36 g/dl Platelet Count 232 130-400 K/uL Mean Platelet Volume 11.1 7.4-10.4 fL Neutrophils (%) (Auto) 60.1 % Lymphocytes (%) (Auto) 30.2 % Monocytes (%) (Auto) 6.5 % Eosinophils (%) (Auto) 2.7 % Basophils (%) (Auto) 0.4 % Neutrophils # (Auto) 5.62 1.4-6.5 K/uL Lymphocytes # (Auto) 2.83 1.2-3.4 K/uL Monocytes # (Auto) 0.61 0.11-0.59 K/uL Eosinophils # (Auto) 0.25 0-0.5 K/uL Basophils # (Auto) 0.04 0-0.2 K/uL RDW Standard Deviation 51.2 36.4-46.3 fL RDW Coefficient of Variation 14.8 11.5-14.5 % Immature Granulocyte % (Auto) 0.1 % Immature Granulocyte # (Auto) 0.01 0.00-0.02 K/uL Sodium Level 140 136-145 mmol/L Potassium Level 4.0 3.5-5.1 mmol/L Chloride Level 103 98-107 mmol/L Carbon Dioxide Level 33 21-32 mmol/L Anion Gap 4.0 3-11 mmol/L Blood Urea Nitrogen 11 7-18 mg/dl Creatinine 0.90 0.60-1.20 mg/dl Est Creatinine Clear Calc Drug Dose 111.6 ml/min Estimated GFR () 84.6 Estimated GFR (Non- 73.0 BUN/Creatinine Ratio 12.7 10-20 Random Glucose 128 70-99 mg/dl Calcium Level 9.4 8.5-10.1 mg/dl Magnesium Level 2.1 1.8-2.4 mg/dl Thyroid Stimulating Hormone (TSH) 67.000 0.300-4.500 uIu/ml
[2016-11-10] MEDS: SIMVASTATIN 20 MG TAB PO SCH (20:08)
[2016-11-10] MEDS: ARIPIprazole TAB 15 MG TAB PO SCH (20:08)
[2016-11-10] MEDS: AMITRIPTYLINE HCL 10 MG TAB PO SCH (20:11)
[2016-11-11] VITALS (11 sets, daily range): BP systolic 113–144; BP diastolic 76–89; PULSE 87–122; TEMP 36.3–36.6; O2SAT 93–96
[2016-11-11] MEDS: OXYCODONE HCL IR 5 MG TAB (IMMEDIATE RELEASE) PO PRN ×3 (03:40→20:09)
[2016-11-11] MEDS: LEVOTHYROXINE 25 MCG TAB PO SCH (06:11)
[2016-11-11] MEDS: LEVOTHYROXINE 200 MCG TAB PO SCH (06:24)
[2016-11-11 06:38] LABS: BUN/CREATININE RATIO 10.9 (10-20); CALCIUM 9.4 mg/dl (8.5-10.1); CREATININE 0.89 mg/dl (0.60-1.20); MAGNESIUM 2.2 mg/dl (1.8-2.4); POTASSIUM 3.8 mmol/L (3.5-5.1)
[2016-11-11] MEDS: FLUTICASONE/SALMETEROL 100/50 (ADVAIR) 14 PUFF/1 INHALER INH SCH ×2 (08:13→20:10)
[2016-11-11] MEDS: APIXABAN 2.5 MG TAB PO SCH ×2 (08:14→20:12)
[2016-11-11] MEDS: TOPIRAMATE 100 MG TAB PO SCH ×2 (08:14→20:11)
[2016-11-11] MEDS: VENLAFAXINE HCL XR 150 MG CAPXR PO SCH (08:15)
[2016-11-11] MEDS: BusPIRone 15 MG TAB PO SCH ×2 (08:16→20:13)
[2016-11-11] MEDS: FUROSEMIDE 20 MG TAB PO SCH (08:17)
[2016-11-11] MEDS: CEROVITE ADV FORMULA TAB PO SCH (08:17)
[2016-11-11] MEDS: SOTALOL HCL 80 MG TAB PO SCH ×2 (08:17→20:11)
[2016-11-11] MEDS: DICYCLOMINE HCL 20 MG TAB PO SCH ×4 (08:17→20:12)
[2016-11-11] MEDS: PANTOprazole SOD 40 MG TAB PO SCH (08:17)
[2016-11-11] MEDS: ASPIRIN 81 MG ECTAB PO SCH (08:18)
[2016-11-11] MEDS: CLONAZEPAM 0.5 MG TAB PO SCH ×2 (08:21→20:09)
--- NOTE | 2016-11-11 10:21 | Cardiology Follow-Up ---
Subjective General Date of Service: Nov 11, 2016. Chief Complaint: atrial flutter Pt evaluation today including: conversation w/ patient, physical exam, chart review, lab review, review of studies, review of inpatient medication list History of Present Illness Patient complaining of fatigue and palpitations, particularly when getting out of bed. Denies chest pain, dizziness or SOB. Allergies Coded Allergies: Hydantoins (Verified Allergy, Unknown, 11/08/16) Phenytoin (Verified Allergy, Unknown, 11/08/16) Ethanol (Verified Adverse Reaction, Severe, SEIZURES, 11/08/16) SEIZURES Thioridazine (Verified Adverse Reaction, Severe, SEIZURES, 11/08/16) SEIZURES Social History Smoking Status: Never Smoker Hx Tobacco Use In Past Year?: No Hx Alcohol Use - Type And Amou: Yes (OCC BEER) Hx Substance Use - Type And Am: Yes (VICODON, LYRICA) Problem List Medical Problems: (1) Atrial flutter Status: Acute (2) Bilateral leg edema Status: Acute (3) Bronchitis Status: Acute (4) Urinary tract infection Status: Acute Review of Systems Respiratory: No cough, No dyspnea at rest, No shortness of breath, No sputum, No wheezing Cardiac: + palpitations, No PND, No chest pain, No edema, No orthopnea Physical Exam Vital Signs Last Vital Signs Documentation Date Time Temp Pulse Resp B/P Pulse Ox O2 Delivery O2 Flow Rate FiO2 11/11/16 07:44 36.3 122 20 133/88 95 Room Air Physical Exam Constitutional: General Apperance: heathly-appearing, obese Level of Distress: NAD Psychiatric: Mental Status: active & alert, anxious Orientation: to time, to place, to person Memory: recent memory normal Head: normocephalic Eyes: Pupils: PERRLA Neck: supple Lungs: Respiratory effort: good air movement Auscultation: no wheezing, no rales/crackles, no rhonchi Cardiovascular: Heart Auscultation: no murmurs, no rubs, irregular rate rhythm Abdomen: Bowel Sounds: normal Inspection & Palpation: soft, non-distended Extremities: no edema Assessment and Plan Assessment and Plan ASSESSMENT: 1. Recurrent/persistent atrial flutter with RVR, on Eliquis. 2. recent Sinus bradycardia as outpatient, resulting in reduction in beta mary therapy 3. diastolic heart failure, fluid status improved off verapamil. 4. Hypertension. 5. Medication non compliance? 6. Hypothyroidism RECOMMENDATIONS/PLAN: Stable echo findings. Preserved LV function with no significant valvular disease. Normal left atrial size. Continue Sotalol 80 mg BID. Received 5th dose this AM. Plan for DCCV tomorrow AM with Dr. Swan NPO except meds after midnight on 11/12 QT/QTc stable this AM. Repeat EKG in AM Continue Eliquis for anticoagulation therapy. Significantly elevated TSH - Hospitalist adjusting levothyroxine. Case discussed with Dr. Swan. Will follow. Patient seen and examined, plan as above. Potassium supplement ordered Gabe Swan MD Laboratory Results Last 24 Hours Test 11/11/16 05:15 Sodium Level 141 mmol/L Potassium Level 3.8 mmol/L Chloride Level 102 mmol/L Carbon Dioxide Level 35 mmol/L Anion Gap 4.0 mmol/L Blood Urea Nitrogen 10 mg/dl Creatinine 0.89 mg/dl Est Creatinine Clear Calc Drug Dose 112.4 ml/min Estimated GFR () 85.8 Estimated GFR (Non- 74.0 BUN/Creatinine Ratio 10.9 Random Glucose 123 mg/dl Calcium Level 9.4 mg/dl Magnesium Level 2.2 mg/dl
[2016-11-11] MEDS ORDERED: POTASSIUM CHLORIDE 10 MEQ TABCR PO ONE (12:30)
--- NOTE | 2016-11-11 15:55 | Progress Note ---
Internal Med Progress Note Date of Service: Nov 11, 2016. Provider Documentation: SUBJECTIVE: Patient is seen and examined at bedside. States having persistent tiredness and palpitations. Denies chest pain, SOB. Family at bedside. Offered no other complaints. OBJECTIVE: Vital Signs-as noted below Physical Exam: Vitals signs as noted above General Appearance:Obese, no apparent distress Head: normocephalic, Atraumatic Eyes: normal inspection, EOMI, PERRL Neck: supple, no JVD, Trachea midline Respiratory/Chest: Normal breath sounds, CTA, No accessory muscle use Cardiovascular: Irregularly, irregular, No murmur Abdomen/GI:Soft, Non tender, Bowel sounds present, obese Extremities/Musculoskelatal:normal inspection, +1 b/l edema Neurologic/Psych:AAOX3, grossly no focal neurological deficits Skin: normal color, warm Lab data as noted below. ASSESSMENT & PLAN: Recurrent A.Flutter with RVR: H/O P.AF S/P LOLI cardioversion in Sep 2015 [place] Cardiac stress test in October 2015 was negative for stress inducible ischemia BB dose recently adjusted secondary to bradycardia and dizziness On Chronic anticoagulation with Eliquis S/P Cardizem ggt, and IV Lopressor Troponin X2: Negative Currently on Sotalol 80 mg BID Monitor QTC Appreciate cardiology help ECHO: Preserved LV function with no significant valvular disease. Normal left atrial size. Planned for DCCV in AM NPO after midnight Monitor electrolytes H/O Asthma: on Breo at home Currently no signs of exacerbation Continue inhalers Bipolar I disorder/Schizoaffective disorder/ Depression Stable Continue home meds Dyslipidemia Continue statin Epilepsy Stable Continue Lamictal GERD: Stable PPI H/O migraine Currently denies any headache Continue Topamax Hypothyroidism TSH elevated: 66 ; Free T4 0.45 L /T3 1.49 L Patient was on Levothyroxine 200 mcg daily Dose adjusted: Increase 225 mcg daily Needs repeat TSH in 4-6 weeks H/O Irritable bowel syndrome Denies abd pain Imodium PRN MAURO (obstructive sleep apnea) Intolerant to CPAP in past Obesity: BMI:52.1 CODE STATUS: FULL CODE DVT PROPHYLAXIS : on Eliquis DISPOSITION ; Continue monitoring in Tele PROCEDURES: ECHO: * There were technical limitations due to patient's body habitus, atrial flutter * A contrast injection of Definity was performed to improve assessment of LV function. * The left ventricle is normal in size. * There is mild concentric left ventricular hypertrophy. * The left ventricular wall motion is normal. * Ejection Fraction = 55-60%. * The left atrial size is normal. Vital Signs: Date Time Temp Pulse Resp B/P Pulse Ox O2 Delivery O2 Flow Rate FiO2 11/11/16 12:00 95 Room Air 11/11/16 11:22 36.5 99 20 115/78 96 Room Air 11/11/16 08:00 95 Room Air 11/11/16 07:44 36.3 122 20 133/88 95 Room Air 11/11/16 04:00 36.4 87 20 144/89 96 Room Air 11/11/16 04:00 96 Room Air 11/11/16 00:00 96 Room Air 11/10/16 23:23 36.3 92 20 130/78 95 Room Air 11/10/16 20:00 96 Room Air 11/10/16 19:54 36.7 110 18 138/82 96 Room Air 11/10/16 18:07 115 127/89 Lab Results: Results Past 24 Hours Test 11/11/16 05:15 Range/Units Sodium Level 141 136-145 mmol/L Potassium Level 3.8 3.5-5.1 mmol/L Chloride Level 102 98-107 mmol/L Carbon Dioxide Level 35 21-32 mmol/L Anion Gap 4.0 3-11 mmol/L Blood Urea Nitrogen 10 7-18 mg/dl Creatinine 0.89 0.60-1.20 mg/dl Est Creatinine Clear Calc Drug Dose 112.4 ml/min Estimated GFR () 85.8 Estimated GFR (Non- 74.0 BUN/Creatinine Ratio 10.9 10-20 Random Glucose 123 70-99 mg/dl Calcium Level 9.4 8.5-10.1 mg/dl Magnesium Level 2.2 1.8-2.4 mg/dl
[2016-11-11] MEDS: AMITRIPTYLINE HCL 10 MG TAB PO SCH (20:11)
[2016-11-11] MEDS: SIMVASTATIN 20 MG TAB PO SCH (20:11)
[2016-11-11] MEDS: ARIPIprazole TAB 15 MG TAB PO SCH (20:13)
[2016-11-12 04:00] VITALS: BP 111/77; PULSE 88; TEMP 36.4; O2SAT 94
[2016-11-12] MEDS: LEVOTHYROXINE 200 MCG TAB PO SCH (05:36)
[2016-11-12] MEDS: LEVOTHYROXINE 25 MCG TAB PO SCH (06:30)
[2016-11-12] MEDS ORDERED: KETAMINE HCL INJ 50 MG/ML 10 ML VIAL ONE (07:15)
[2016-11-12] MEDS ORDERED: MIDAZOLAM HCL 1 MG/ML 2ML VIAL ONE (07:15)
[2016-11-12] MEDS ORDERED: PROPOFOL IV EMULSION 10 MG/ML 20 ML VIAL IV ONE ×2 (07:15→08:08)
[2016-11-12] MEDS ORDERED: LIDOCAINE HCL 2% 2 ML VIAL (20MG/ML) ONE (07:15)
[2016-11-12 07:26] LABS: BUN/CREATININE RATIO 12.2 (10-20); CREATININE 0.91 mg/dl (0.60-1.20); MAGNESIUM 2.2 mg/dl (1.8-2.4); POTASSIUM 3.7 mmol/L (3.5-5.1)
[2016-11-12 07:40] VITALS: BP 105/85; PULSE 123; O2SAT 98
[2016-11-12 07:45] VITALS: PULSE 123; O2SAT 98
[2016-11-12 07:48] VITALS: BP 107/75; PULSE 116; O2SAT 98
[2016-11-12 07:50] VITALS: BP 135/100; PULSE 77; O2SAT 98
--- NOTE | 2016-11-12 07:57 | Cardiology Procedure Brief Nt ---
Preliminary Cardiology Note Procedure Date Nov 12, 2016. Pre-Procedure Diagnosis Atrial flutter with rapid ventricular response Post-Procedure Diagnosis Successful synchronized electrical cardioversion Procedure(s) Performed Successful synchronized electrical cardioversion Machine Group Leader Beny Acupuncturist(s) None Estimated Blood Loss None Preliminary Findings Successful synchronized electrical cardioversion was performed using single 150J biphasic countershock Recommendations Medical management Fluids (cc crystalloids) 50 Specimens None Anesthesia Per Dr Yeboah Complication(s) None Disposition PCU
--- NOTE | 2016-11-12 08:11 | Anesthesiology Progress Note ---
Anesthesia Post Op Note Date & Time Nov 12, 2016 at 08:09 Vital Signs Pain Intensity: 0 Vital Signs Past 12 Hours Date Time Temp Pulse Resp B/P Pulse Ox O2 Delivery O2 Flow Rate FiO2 11/12/16 08:05 82 16 120/85 94 Room Air 11/12/16 07:55 83 16 140/78 94 Room Air 11/12/16 07:50 77 18 135/100 98 Nasal Cannula 4 11/12/16 07:48 116 18 107/75 98 Nasal Cannula 4 11/12/16 07:45 123 18 98 Nasal Cannula 4 11/12/16 07:40 123 18 105/85 98 Nasal Cannula 4 11/12/16 04:32 Room Air 11/12/16 04:00 36.4 88 20 111/77 94 Room Air 11/12/16 00:00 Room Air 11/11/16 23:54 36.3 112 20 114/77 93 Room Air 11/11/16 20:47 36.3 87 18 121/81 95 Room Air Notes Mental Status: alert / awake / arousable, participated in evaluation Pt Amnestic to Procedure: Yes Nausea / Vomiting: adequately controlled Pain: adequately controlled Airway Patency, RR, SpO2: stable & adequate BP & HR: stable & adequate Hydration State: stable & adequate Anesthetic Complications: no major complications apparent Pt did very well. In SR w/ stable vitals when we left.
[2016-11-12] MEDS ORDERED: POTASSIUM CHLORIDE 10 MEQ TABCR PO SCH (09:00)
[2016-11-12] MEDS: FLUTICASONE/SALMETEROL 100/50 (ADVAIR) 14 PUFF/1 INHALER INH SCH (09:14)
[2016-11-12] MEDS: TOPIRAMATE 100 MG TAB PO SCH (09:19)
[2016-11-12] MEDS: ASPIRIN 81 MG ECTAB PO SCH (09:19)
[2016-11-12] MEDS: CLONAZEPAM 0.5 MG TAB PO SCH (09:19)
[2016-11-12] MEDS: PANTOprazole SOD 40 MG TAB PO SCH (09:20)
[2016-11-12] MEDS: FUROSEMIDE 20 MG TAB PO SCH (09:20)
[2016-11-12] MEDS: BusPIRone 15 MG TAB PO SCH (09:20)
[2016-11-12] MEDS: VENLAFAXINE HCL XR 150 MG CAPXR PO SCH (09:21)
[2016-11-12] MEDS: DICYCLOMINE HCL 20 MG TAB PO SCH ×2 (09:21→12:41)
[2016-11-12] MEDS: SOTALOL HCL 80 MG TAB PO SCH (09:21)
[2016-11-12] MEDS: APIXABAN 2.5 MG TAB PO SCH (09:21)
[2016-11-12] MEDS: CEROVITE ADV FORMULA TAB PO SCH (09:22)
[2016-11-12] MEDS: OXYCODONE HCL IR 5 MG TAB (IMMEDIATE RELEASE) PO PRN (10:55)
--- NOTE | 2016-11-12 11:22 | Progress Note ---
Internal Med Progress Note Date of Service: Nov 12, 2016. Provider Documentation: SUBJECTIVE: Patient is seen and examined at bedside. States feeling much better today. Palpitations resolved. Denies chest pain, SOB. Offered no other complaints. OBJECTIVE: Vital Signs-as noted below Physical Exam: Vitals signs as noted above General Appearance:Obese, no apparent distress Head: normocephalic, Atraumatic Eyes: normal inspection, EOMI, PERRL Neck: supple, no JVD, Trachea midline Respiratory/Chest: Normal breath sounds, CTA, No accessory muscle use Cardiovascular: S1, S2, No murmur Abdomen/GI:Soft, Non tender, Bowel sounds present, obese Extremities/Musculoskelatal:normal inspection, +1 b/l edema Neurologic/Psych:AAOX3, grossly no focal neurological deficits Skin: normal color, warm Lab data as noted below. ASSESSMENT & PLAN: Recurrent A.Flutter with RVR: H/O P.AF S/P LOLI cardioversion in Sep 2015 [place] Cardiac stress test in October 2015 was negative for stress inducible ischemia S/P Successful synchronized electrical cardioversion on 11/12/16 BB dose recently adjusted secondary to bradycardia and dizziness On Chronic anticoagulation with Eliquis S/P Cardizem ggt, and IV Lopressor Troponin X2: Negative Currently on Sotalol 80 mg BID Monitor QTC Appreciate cardiology help ECHO: Preserved LV function with no significant valvular disease. Normal left atrial size. Monitor electrolytes H/O Asthma: on Breo at home Currently no signs of exacerbation Continue inhalers Bipolar I disorder/Schizoaffective disorder/ Depression Stable Continue home meds Dyslipidemia Continue statin Epilepsy Stable Continue Lamictal GERD: Stable PPI H/O migraine Currently denies any headache Continue Topamax Hypothyroidism TSH elevated: 66 ; Free T4 0.45 L /T3 1.49 L Patient was on Levothyroxine 200 mcg daily Dose adjusted: Increase 225 mcg daily Needs repeat TSH in 4-6 weeks H/O Irritable bowel syndrome Denies abd pain Imodium PRN MAURO (obstructive sleep apnea) Intolerant to CPAP in past Obesity: BMI:52.1 CODE STATUS: FULL CODE DVT PROPHYLAXIS : on Eliquis DISPOSITION ; Continue monitoring in Tele Follow up with on November 18, 2016 at 12:55pm at [facility] Follow up with cardiology with Eduardo Gonsalez on November 17, 2016 at 2:15pm Get repeat Thyroid function test in 4-6 weeks as outpatient and follow up with with results PROCEDURES: ECHO: * There were technical limitations due to patient's body habitus, atrial flutter * A contrast injection of Definity was performed to improve assessment of LV function. * The left ventricle is normal in size. * There is mild concentric left ventricular hypertrophy. * The left ventricular wall motion is normal. * Ejection Fraction = 55-60%. * The left atrial size is normal. Vital Signs: Date Time Temp Pulse Resp B/P Pulse Ox O2 Delivery O2 Flow Rate FiO2 11/12/16 08:15 82 18 125/76 93 Room Air 11/12/16 08:05 82 16 120/85 94 Room Air 11/12/16 08:00 Room Air 11/12/16 07:55 83 16 140/78 94 Room Air 11/12/16 07:50 77 18 135/100 98 Nasal Cannula 4 11/12/16 07:48 116 18 107/75 98 Nasal Cannula 4 11/12/16 07:45 123 18 98 Nasal Cannula 4 11/12/16 07:40 123 18 105/85 98 Nasal Cannula 4 11/12/16 04:32 Room Air 11/12/16 04:00 36.4 88 20 111/77 94 Room Air 11/12/16 00:00 Room Air 11/11/16 23:54 36.3 112 20 114/77 93 Room Air 11/11/16 20:47 36.3 87 18 121/81 95 Room Air 11/11/16 20:00 96 Room Air 11/11/16 16:07 36.6 112 18 113/76 96 Room Air 11/11/16 16:00 96 Room Air 11/11/16 12:00 95 Room Air Lab Results: Results Past 24 Hours Test 11/12/16 05:54 Range/Units Sodium Level 140 136-145 mmol/L Potassium Level 3.7 3.5-5.1 mmol/L Chloride Level 102 98-107 mmol/L Carbon Dioxide Level 31 21-32 mmol/L Anion Gap 7.0 3-11 mmol/L Blood Urea Nitrogen 11 7-18 mg/dl Creatinine 0.91 0.60-1.20 mg/dl Est Creatinine Clear Calc Drug Dose 110.1 ml/min Estimated GFR () 83.5 Estimated GFR (Non- 72.0 BUN/Creatinine Ratio 12.2 10-20 Random Glucose 122 70-99 mg/dl Calcium Level 9.0 8.5-10.1 mg/dl Magnesium Level 2.2 1.8-2.4 mg/dl
--- NOTE | 2016-11-12 11:31 | CARDIOVERSION ---
DATE OF OPERATION: 11/12/2016 DATE OF PROCEDURE: 11/12/2016. INDICATIONS: Atrial flutter with rapid ventricular response. BRIEF CARDIAC HISTORY: The patient is a 51-year-old female who carries a history of past paroxysmal atrial arrhythmia, hypertension, obstructive sleep apnea who lapsed into atrial flutter and presented for inpatient evaluation. She was begun on antiarrhythmic therapy with sotalol and is referred now with persistent atrial flutter with elevated ventricular response rates for synchronized electrical cardioversion. PROCEDURE: After the procedure and risks were explained in detail to the patient informed consent was obtained. The patient was sedated via anesthesia consultation with Dr. Yeboah and single synchronized biphasic 150 joule countershock was administered with successful conversion to sinus rhythm. Post procedure patient aroused having tolerated well. EKG post procedure demonstrates sinus rhythm at rate of 73, QT corrected at [address] flattening. I attest to the content of the Intraoperative Record and any orders documented therein. Any exceptio ns are noted below.
[2016-11-12] MEDS ORDERED: ASPEC81 PO (11:48)
[2016-11-12] MEDS ORDERED: LEVO200T6 PO (11:48)
[2016-11-12] MEDS ORDERED: BTP80 PO (11:48)
[2016-11-12] MEDS ORDERED: POTA10CA28 PO (11:48)
--- NOTE | 2016-11-12 11:50 | Discharge Instructions ---
Discharge Instructions Date of Service Nov 12, 2016. Admission Reason for Admission: Atrial Fibrillation With Rvr Discharge Discharge Diagnosis / Problem: Atrial Fibrillation With Rvr S/P successful cardioversion Discharge Goals Goal(s): Decrease discomfort, Improve function Activity Recommendations Activity Limitations: resume your previous activity Exercise/Sports Limitations: as tolerated . Instructions / Follow-Up Instructions / Follow-Up Follow up with on November 18, 2016 at 12:55pm at [facility] Follow up with cardiology with Eduardo Gonsalez on November 17, 2016 at 2:15pm Get repeat Thyroid function test in 4-6 weeks as outpatient and follow up with with results Current Hospital Diet Patient's current hospital diet: AHA Diet (Heart Healthy) Discharge Diet Recommended Diet: AHA Diet (Heart Healthy) Pending Studies Studies pending at discharge: no Laboratory Results Lipid Panel Test 11/09/16 05:41 Range/Units Triglycerides Level 256 H 0-150 mg/dl Cholesterol Level 200 0-200 mg/dl HDL Cholesterol 40 mg/dl Cholesterol/HDL Ratio 5.0 LDL Cholesterol, Calculated 109 mg/dl Medical Emergencies . Who to Call and When: Medical Emergencies: If at any time you feel your situation is an emergency, please call 911 immediately. . Non-Emergent Contact Non-Emergency issues call your: Primary Care Provider, It Compliance Analyst Call Non-Emergent contact if: you have a fever, your pain is not controlled, your pain is worsening, your pain is unusual for you, you have any medication questions . . "Provider Documentation" section prepared by Cristobal Costa. VTE Core Measure Inpt VTE Proph given/why not?: Other Anticoagulation (ELIQUIS)
--- NOTE | 2016-11-12 11:55 | Discharge Summary ---
Discharge Summary Date of Service Nov 12, 2016. Discharge Summary Admission Date: Nov 08, 2016 at 20:23 Discharge Date: Nov 12, 2016 Discharge Disposition: Home Principal Diagnosis: Atrial Flutter With Rvr S/P successful synchronized cardioversion Procedures: CXR: Negative chest. Cardioversion: successful Consultations: Cardiology Pending Studies/Follow-Up: Follow up with on November 18, 2016 at 12:55pm at [facility] Follow up with cardiology with Eduardo Gonsalez on November 17, 2016 at 2:15pm Medication Reconciliation New Medications: Potassium Chloride (Micro-K Ext Rel) 10 Meq Capcr 10 MEQ PO DAILY for 30 Days, #30 1 Refill Sotalol HCl (Sotalol HCl) 80 Mg Tab 80 MG PO BID for 30 Days, #60 TAB 1 Refill Changed Medications: Levothyroxine Sodium (Levothyroxine Sodium) 200 Mcg Tab 225 MCG PO QAM for 30 Days, #30 (Changed from: 200 MCG) Continued Medications: Amitriptyline Hcl (Elavil) 10 Mg Tab 10 MG PO HS, TAB Apixaban (Eliquis) 2.5 Mg Tab 5 MG PO BID Aripiprazole (Abilify) 30 Mg Tab 30 MG PO HS, TAB Buspirone Hcl (Buspirone Hcl) 30 Mg Tab 30 MG PO BID Clonazepam (Klonopin) 0.5 Mg Tab 0.5 MG PO BID Dicyclomine HCl (Dicyclomine HCl) 20 Mg Tab 20 MG PO QID Esomeprazole Magnesium (Nexium) 40 Mg Cap 40 MG PO DAILY, #30 Fluticasone Furoate-Vilanterol (Breo Ellipta) 1 Inh Inh 1 PUFF PO QAM Furosemide (Lasix) 20 Mg Tab 1 TAB PO DAILY for 5 Days, #5 TAB 1 Refill Lamotrigine (Lamictal) 200 Mg Tab 200 MG PO BID, TAB Levalbuterol Tartrate (Levalbuterol Tartrate Hfa) 45 Mcg/Act Aer 1-2 PUFFS INH Q4 PRN for Shortness of Breath Multiple Vitamins W/ Minerals (Multiple Vitamins/Womens) 1 Tab Tab 1 TAB PO DAILY Oxycodone Immediate Rel Tab (Roxicodone Ir) 5 Mg Tab 5 MG PO TID PRN for Pain, #14 TAB Simvastatin (Simvastatin) 20 Mg Tab 20 MG PO HS Tizanidine Hcl (Zanaflex) 2 Mg Tab 2 MG PO Q8 PRN for Muscle Spasms, TAB Topiramate (Topamax) 50 Mg Tab 100 MG PO BID, #120 Venlafaxine Hcl (Effexor Extended Rel) 150 Mg Capcr 150 MG PO QAM Discontinued Medications: Metoprolol Tartrate (Lopressor) (Lopressor) 50 Mg Tab 50 MG PO BID, TAB Admission Information HPI (per Admitting provider): 51 yo F with past medical hx of chronic Aflb /flutter s/p LOLI cardioversion in 09/2015 , has been on Metoprol and on Eliquis for anticoagulation Follows with [facility]iology Eduardo Gonsalez PA-C /Dr Gabe Swan recent [place] Cardiac stress test in October 2015 was negative for stress inducible ischemia Pts other chronic medical conditions includes -Chronic Schizophrenia ,Depression , Hypothyroidism , HTN , Dyslipidemia, presents to ED with complain of palpitation , SOB , ROSALES pt mentions that her symptom started approx around 5 am this morning -started to experience palpitation , flattering in left side of chest , associated with SOB , dizzy spell no chest heaviness pt felt extremely fatigued , thought that taking rest /taking nap will help woke up in afternoon -felt worse ongoing palpitation , dizzy spell associated with Nausea came to ED for evaluation , pt found to be in rapid afib /Aflutter HR in 140's started on IV Cardizem gtt 5 mg /hr -rate minimally improved rhythm remained in Aflutter with 3: 1 conduction HR variable form 100-120 - Physical Exam (per Admitting): General Appearance: no apparent distress Eyes: sclerae normal ENT: hearing grossly normal Neck: thyroid normal, no JVD, no carotid bruits, trachea midline Respiratory/Chest: chest non-tender, lungs clear, normal breath sounds, no respiratory distress Cardiovascular: + tachycardia, + irregularly irregular Abdomen/GI: non tender, soft Extremities/Musculoskelatal: normal capillary refill, + pedal edema (2+ bilat pedal edema ) Neurologic/Psych: no motor/sensory deficits, alert, normal mood/affect, oriented x 3 Skin: normal color, warm/dry, no rash Lymphatic: no adenopathy Hospital Course Recurrent A.Flutter with RVR: H/O P.AF S/P LOLI cardioversion in Sep 2015 [place] Cardiac stress test in October 2015 was negative for stress inducible ischemia S/P Successful synchronized electrical cardioversion on 11/12/16 BB dose recently adjusted secondary to bradycardia and dizziness On Chronic anticoagulation with Eliquis S/P Cardizem ggt, and IV Lopressor Troponin X2: Negative Currently on Sotalol 80 mg BID Monitor QTC Appreciate cardiology help ECHO: Preserved LV function with no significant valvular disease. Normal left atrial size. Monitor electrolytes H/O Asthma: on Breo at home Currently no signs of exacerbation Continue inhalers Bipolar I disorder/Schizoaffective disorder/ Depression Stable Continue home meds Dyslipidemia Continue statin Epilepsy Stable Continue Lamictal GERD: Stable PPI H/O migraine Currently denies any headache Continue Topamax Hypothyroidism TSH elevated: 66 ; Free T4 0.45 L /T3 1.49 L Patient was on Levothyroxine 200 mcg daily Dose adjusted: Increase 225 mcg daily Needs repeat TSH in 4-6 weeks H/O Irritable bowel syndrome Denies abd pain Imodium PRN MAURO (obstructive sleep apnea) Intolerant to CPAP in past Obesity: BMI:52.1 CODE STATUS: FULL CODE DVT PROPHYLAXIS : on Eliquis DISPOSITION ; Continue monitoring in Tele Follow up with on November 18, 2016 at 12:55pm at [facility] Follow up with cardiology with Eduardo Gonsalez on November 17, 2016 at 2:15pm Get repeat Thyroid function test in 4-6 weeks as outpatient and follow up with with results PROCEDURES: ECHO: * There were technical limitations due to patient's body habitus, atrial flutter * A contrast injection of Definity was performed to improve assessment of LV function. * The left ventricle is normal in size. * There is mild concentric left ventricular hypertrophy. * The left ventricular wall motion is normal. * Ejection Fraction = 55-60%. * The left atrial size is normal. Total time spent on discharge = 40 minutes This includes examination of the patient, discharge planning, medication reconciliation, and communication with other providers. Discharge Instructions Discharge Instructions Date of Service Nov 12, 2016. Admission Reason for Admission: Atrial Fibrillation With Rvr Discharge Discharge Diagnosis / Problem: Atrial Fibrillation With Rvr S/P successful cardioversion Discharge Goals Goal(s): Decrease discomfort, Improve function Activity Recommendations Activity Limitations: resume your previous activity Exercise/Sports Limitations: as tolerated . Instructions / Follow-Up Instructions / Follow-Up Follow up with on November 18, 2016 at 12:55pm at [facility] Follow up with cardiology with Eduardo Gonsalez on November 17, 2016 at 2:15pm Get repeat Thyroid function test in 4-6 weeks as outpatient and follow up with with results Current Hospital Diet Patient's current hospital diet: AHA Diet (Heart Healthy) Discharge Diet Recommended Diet: AHA Diet (Heart Healthy) Pending Studies Studies pending at discharge: no Laboratory Results Lipid Panel Test 11/09/16 05:41 Range/Units Triglycerides Level 256 H 0-150 mg/dl Cholesterol Level 200 0-200 mg/dl HDL Cholesterol 40 mg/dl Cholesterol/HDL Ratio 5.0 LDL Cholesterol, Calculated 109 mg/dl Medical Emergencies . Who to Call and When: Medical Emergencies: If at any time you feel your situation is an emergency, please call 911 immediately. . Non-Emergent Contact Non-Emergency issues call your: Primary Care Provider, Wheel Press Operator Call Non-Emergent contact if: you have a fever, your pain is not controlled, your pain is worsening, your pain is unusual for you, you have any medication questions . . "Provider Documentation" section prepared by Cristobal Costa. VTE Core Measure Inpt VTE Proph given/why not?: Other Anticoagulation (ELIQUIS)
[2016-11-12 11:56] VITALS: BP 125/76; PULSE 82; TEMP 36.4; O2SAT 93
--- NOTE | 2016-11-12 12:00 | CARDIOLOGY PROGRESS NOTE ---
DATE: 11/12/2016 DATE: 11/12/2016. The patient seen and examined both prior and after synchronized electrical cardioversion this morning. SUBJECTIVE: The patient feels improved. Denies any dizziness or lightheadedness. Notes no syncope or near syncope. Tolerated procedure well this morning. OBJECTIVE: VITAL SIGNS: Heart rate is 82, blood pressure is 125/76. NECK: Thick. There is no distinct jugular venous distention. LUNGS: Clear. CARDIOVASCULAR EXAMINATION: Regular. There is no S3 gallop. ABDOMEN: Soft, nontender. EXTREMITIES: Without cyanosis or clubbing. There is no peripheral edema. LABORATORY DATA: Sodium is 140, potassium is 3.7, chloride is 102, bicarbonate 31, BUN 11, creatinine 0.91. EKG at 8:53 this morning demonstrates sinus rhythm with nonspecific ST segment changes. QT corrected at 363. IMPRESSION: A 51-year-old female with multiple underlying issues as described including obstructive sleep apnea, hypertension, history of past epilepsy and significant hypothyroidism, admitted with atrial flutter with difficult control rates begun on antiarrhythmic therapy with sotalol, now status post successful synchronized cardioversion. RECOMMENDATIONS: After ambulation today, patient may be discharged on current dosing of sotalol 80 mg twice per day. New medication will be the addition of potassium chloride 20 mEq daily. Anticipate followup with cardiology in the next 3-4 weeks' time.
[2017-04-29] MEDS ORDERED: OXYC7.5T65 PO (13:04)
[2017-04-29] MEDS ORDERED: TIZA2TAB3 PO (13:05)
[2017-04-29] MEDS ORDERED: BUSP30TA2 PO (13:05)
[2017-07-02] MEDS ORDERED: FURO-85 PO (12:10)
[2017-07-02] MEDS ORDERED: DICY10CA55 PO (12:10)
[2017-07-02] MEDS ORDERED: RANI150T3 PO (12:10)
[2017-07-02] MEDS ORDERED: LAMO200T38 PO (14:54)
[2017-07-02] MEDS ORDERED: ARIP30TA3 PO (15:38)
== END 2016-11-12 14:03 | disposition home or self-care (01) | DRG 309 ==
LOC: ENRESERVDT → ENRESERVTM → EDBD 17:36 → C.EDB 17:39 → C.MSICU 20:23 → EDBEDREQ 20:26 → C.MED 11-09 18:24
PROVIDERS: ADMIT Hospitalist; ATTEND Internal Medicine
PROC: 5A2204Z Restoration of Cardiac Rhythm, Single (ICD-10-PCS; principal; 2016-11-12 07:45)
DX: I48.92 Unspecified atrial flutter (principal); Z68.43 Body mass index [BMI] 50.0-59.9, adult; I50.32 Chronic diastolic (congestive) heart failure; F31.9 Bipolar disorder, unspecified; I48.0 Paroxysmal atrial fibrillation; Z79.01 Long term (current) use of anticoagulants; E03.9 Hypothyroidism, unspecified; E78.5 Hyperlipidemia, unspecified; F41.9 Anxiety disorder, unspecified; G40.909 Epilepsy, unspecified, not intractable, without status epilepticus; M79.7 Fibromyalgia; K21.9 Gastro-esophageal reflux disease without esophagitis; G43.909 Migraine, unspecified, not intractable, without status migrainosus; K58.9 Irritable bowel syndrome, unspecified; G47.33 Obstructive sleep apnea (adult) (pediatric); F25.1 Schizoaffective disorder, depressive type; Z90.710 Acquired absence of both cervix and uterus; Z98.51 Tubal ligation status; Z90.49 Acquired absence of other specified parts of digestive tract; Z83.3 Family history of diabetes mellitus; Z82.49 Family history of ischemic heart disease and other diseases of the circulatory system; Z80.1 Family history of malignant neoplasm of trachea, bronchus and lung; Z84.89 Family history of other specified conditions; Z88.8 Allergy status to other drugs, medicaments and biological substances; G47.00 Insomnia, unspecified; J45.20 Mild intermittent asthma, uncomplicated; H90.2 Conductive hearing loss, unspecified; Z87.891 Personal history of nicotine dependence; E66.9 Obesity, unspecified; I11.0 Hypertensive heart disease with heart failure; M51.36 Other intervertebral disc degeneration, lumbar region

== ENCOUNTER → 2016-12-09 | Outpatient (CLI) | payer OTHER ==
[~2016-12-09] MED LIST changes: +ACET-1256 PO; +APIX1TAB3 PO; +ARIP30TA3 PO; +BTP80 PO; +DICY10CA55 PO; +EFFSR150 PO; +FLUT0.15 NAE; +FLUT1INH PO; +FURO-85 PO; +IBUP-1050 PO; +LAMO200T38 PO; +LEVA45AE INH; -LEVAAER2 INH; -LEVO175T3 PO; +LEVO200T6 PO; +LEVO50TA6 PO; +LOPE1CAP6 PO; +MELA1TAB49 PO; -METO50TA16 PO; -MIRA100T PO; +MULT-411 PO; +NAPR1TAB9 PO; +NYST1POW7 TOP; +OXYC-609 PO; +OXYC7.5T65 PO; +POTA10CA28 PO; +RANI150T3 PO; +RIBO100T9 PO; +SIMV-151 PO; +SOTA80TA PO; +TIZA4CAP PO; +TOPI50TA16 PO; +TPM/50 PO; -VERA240T20 PO
--- NOTE | 2016-12-09 13:45 | PULMONARY FUNCTION TEST ---
CLINICAL DATA: 51-year-old female with a height of 67 inches and a weight of 337 pounds referred by Vijaya Bruno for evaluation of asthma. Spirometry pre- and post-bronchodilator, lung volumes, and DLCO were performed. FINDINGS: Pre-bronchodilator spirometry demonstrates moderate mixed restrictive/obstructive disease. FVC was 60% of predicted. FEV1 was 54% of predicted. [id number] was 37% of predicted. There was slight improvement after inhaled bronchodilator. FVC improved 2% to 61% of predicted. FEV1 improved 3% to 56% of predicted. [id number] improved 11% to 41% of predicted. Lung volumes demonstrated restrictive changes with significant reduction in expiratory reserve volume due to obesity. Residual volume is normal suggesting that this is chest wall restriction from the patient's weight. DLCO was mildly reduced at 60% of predicted within normal DLCO/VA. IMPRESSION: Moderate mixed restrictive/obstructive disease with slight improvement after inhaled bronchodilator. Significant reduction in lung volumes due to obesity. Mild reduction in DLCO. MTDD
== END | disposition home or self-care (01) ==
LOC: C.RC 08:48
PROVIDERS: ATTEND Physician Assistant
DX: J45.909 Unspecified asthma, uncomplicated (principal)

== ENCOUNTER 2017-04-26 11:49 | Inpatient (IN) | payer OTHER ==
[~2017-04-26] VITALS: Ht 170.2 cm; Wt 150.4 kg
[~2017-04-26 11:49] MED LIST changes: -ACET-1256 PO; -APIX1TAB3 PO; -DICY10CA55 PO; -FLUT0.15 NAE; -FURO-85 PO; -IBUP-1050 PO; -LEVO50TA6 PO; -LOPE1CAP6 PO; -MELA1TAB49 PO; -MULT-411 PO; -NAPR1TAB9 PO; -NYST1POW7 TOP; -OXYC-609 PO; -OXYC1TAB3 PO; -OXYC7.5T65 PO; -RANI150T3 PO; -RIBO100T9 PO; -SOTA80TA PO; -TIZA4CAP PO; -TOPI50TA16 PO
[2017-04-26] MEDS ORDERED: FURO-85 PO (12:10)
[2017-04-26] MEDS ORDERED: RANI150T3 PO (12:10)
[2017-04-26] MEDS ORDERED: DICY10CA55 PO (12:10)
[2017-04-26] MEDS ORDERED: RIBO100T9 PO (12:10)
--- NOTE | 2017-04-26 12:42 | EMERGENCY ROOM VISIT NOTE ---
History Report prepared by Tory: Sonya Palmer Under the Supervision of: Dr. Rui Hawthorne M.D. 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 The patient was folding laundry and states that the "next thing I knew I was on the floor." She thinks that she passed out because she does not remember falling. She landed on her right side. The patient is currently complaining of right ankle pain that she rates as a 7/10 in severity. She did hit her head when she fell. She takes a blood thinner for atrial 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. She states that lately she has felt like her heart has been beating fast and irregularly. She has been taking her medications as prescribed. She states that she has "balance issues" and walks with a cane. The patient denies fevers, chest pain, abdominal pain, and urinary symptoms. She has been feeling short of breath and has a history of asthma. She states that she was feeling well this morning prior to her episode. 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 Pt notes right ankle pain. Review of Systems See HPI for pertinent positives & negatives. A total of 10 systems reviewed and were otherwise negative. Past Medical & Surgical Medical Problems: (1) Anxiety (2) Asthma (3) 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 (4) 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 with rapid ventricular response (5) Bipolar I disorder (6) Depression (7) Dyslipidemia (8) Elevated troponin I level (9) Epilepsy (10) Fibromyalgia (11) GERD (gastroesophageal reflux disease) (12) H/O migraine (13) Hypertension (14) Hypothyroidism (15) IBS (irritable bowel syndrome) (16) Lung nodule (17) MAURO (obstructive sleep apnea) (18) Schizoaffective disorder, depressive type Surgical Problems: (1) H/o lumbar hemilaminectomy (2) History of hysterectomy (3) History of nasal surgery (4) S/P cholecystectomy (5) S/P tonsillectomy (6) S/P tubal ligation Old medical records were reviewed. Nurse's notes were reviewed and I agree with. Family History Diabetes mellitus FATHER FH: cancer MOTHER (lung CA) FH: heart disease FATHER FH: scoliosis Social History Smoking Status: Never Smoker Alcohol Use: none Drug Use: none Marital Status: Housing Status: lives alone Occupation Status: disabled Current/Historical Medications Scheduled Apixaban (Eliquis), 5 MG PO BID Aripiprazole (Abilify), 30 MG PO DAILY Buspirone Hcl (Buspirone Hcl), 30 MG PO BID Dicyclomine Hcl (Bentyl), 10 MG PO TID Fluticasone Furoate-Vilanterol (Breo Ellipta), 1 PUFF PO QAM Furosemide (Lasix), 20 MG PO MWF Lamotrigine (Lamictal), 200 MG PO BID Levothyroxine Sodium (Levothyroxine Sodium), 250 MCG PO QAM Multiple Vitamins W/ Minerals (Multiple Vitamins/Womens), 1 TAB PO DAILY Potassium Chloride (Micro-K Ext Rel), 10 MEQ PO DAILY Ranitidine Hcl (Zantac), 150 MG PO BID Riboflavin (Vitamin B-2), 100 MG PO QAM Simvastatin (Simvastatin), 20 MG PO HS Sotalol HCl (Sotalol HCl), 80 MG PO BID Topiramate (Topamax), 100 MG PO BID Venlafaxine Hcl (Effexor Extended Rel), 150 MG PO QAM Scheduled PRN Levalbuterol Tartrate (Levalbuterol Tartrate Hfa), 1-2 PUFFS INH Q4 PRN for Shortness of Breath Tizanidine Hcl (Zanaflex), 4 MG PO Q8 PRN for Muscle Spasms Allergies Coded Allergies: Hydantoins (Verified Allergy, Unknown, 04/26/17) Phenytoin (Verified Allergy, Unknown, 04/26/17) Ethanol (Verified Adverse Reaction, Severe, SEIZURES, 04/26/17) SEIZURES Thioridazine (Verified Adverse Reaction, Severe, SEIZURES, 04/26/17) SEIZURES Physical Exam Vital Signs Date Time Temp Pulse Resp B/P (MAP) Pulse Ox O2 Delivery O2 Flow Rate FiO2 04/26/17 14:17 74 20 187/88 97 Room Air 04/26/17 11:50 36.9 69 18 157/85 99 Room Air Physical Exam General: Well developed well nourished non-ill appearing middle aged female in no acute distress, breathing comfortably on room air. Normal speech HEENT: Normal cephalic atraumatic. Pupils are equal round and reactive to light. Extraocular movements are intact, baseline disconjugate gaze. Oropharynx is pink with moist mucous membranes. No swelling of the mouth lips or tongue. Neck: Supple with a midline trachea. No meningeal signs or stiffness, no JVD or bruits. No Stridor. Chest: Clear to auscultation bilaterally. No wheezes or rhonchi. No increased work of breathing. Heart: regular rate and rhythm. Abdomen: Soft nontender, nondistended without rebound guarding or rigidity. Extremities: No cyanosis clubbing or edema. No calf tenderness or assymetry. She is tender laterally along the right ankle without deformity. Spine/Back. Non tender to palpation. No CVA tenderness Skin: Good turgor without rashes. Neurologic exam: Cranial nerves two through 12 are intact. Motor and sensation are intact and symmetrical throughout. Medical Decision & Procedures ER Provider Diagnostic Interpretation: Radiology results as stated below per my review and radiologist interpretation: HEAD CT NONCONTRAST CT DOSE: 788.63 mGycm HISTORY: Fall. Right-sided head injury. eval for trauma TECHNIQUE: Multiaxial CT images of the head were performed without the use of intravenous contrast. Automated exposure control was utilized for this study. A dose lowering technique was utilized adhering to the principles of ALARA. Comparison: Head CT 08/07/2016. Findings: The paranasal sinuses and mastoid air cells are clear. The calvarium and skull base are intact. The ventricles and sulci are within normal limits. There is no mass, hematoma, midline shift, or acute infarct. Impression: No acute intracranial abnormality. Electronically signed by: Smooth Maya M.D. 04/26/2017 1:52 PM Dictated Date/Time: 04/26/2017 1:49 PM CHEST ONE VIEW PORTABLE CLINICAL HISTORY: CHEST PAIN dyspnea COMPARISON STUDY: 11/08/2016 FINDINGS: Mild cardia megaly. Prominence pulmonary vasculature, possibly due to the compromised history volumes.. Diaphragms are smooth. IMPRESSION: Negative chest. The above report was generated using voice recognition software. It may contain grammatical, syntax or spelling errors. Electronically signed by: Eduardo Borja M.D. 04/26/2017 2:07 PM Dictated Date/Time: 04/26/2017 2:06 PM RIGHT ANKLE 3 VIEWS HISTORY: Right ankle pain. eval for trauma COMPARISON: None. FINDINGS: There is no oblique fracture within the distal right fibula. This demonstrates 2 mm of posterior displacement. The ankle mortise is maintained. Diffuse soft tissue swelling. No dislocation. Small plantar and posterior calcaneal spurs. No radiopaque foreign bodies. IMPRESSION: Slightly distracted oblique fracture within the distal right fibula. Electronically signed by: Smooth Maya M.D. 04/26/2017 2:08 PM Dictated Date/Time: 04/26/2017 2:07 PM Laboratory Results 04/26/17 12:56 Red Blood Count 4.07, Mean Corpuscular Volume 93.9, Mean Corpuscular Hemoglobin 30.2, Mean Corpuscular Hemoglobin Concent 32.2, Mean Platelet Volume 10.2, Neutrophils (%) (Auto) 69.8, Lymphocytes (%) (Auto) 21.3, Monocytes (%) (Auto) 6.0, Eosinophils (%) (Auto) 2.5, Basophils (%) (Auto) 0.3, Neutrophils # (Auto) 6.63, Lymphocytes # (Auto) 2.02, Monocytes # (Auto) 0.57, Eosinophils # (Auto) 0.24, Basophils # (Auto) 0.03 04/26/17 12:56 Test 04/26/17 12:56 04/26/17 13:04 White Blood Count 9.50 K/uL (4.8-10.8) Red Blood Count 4.07 M/uL (4.2-5.4) Hemoglobin 12.3 g/dL (12.0-16.0) Hematocrit 38.2 % (37-47) Mean Corpuscular Volume 93.9 fL (80-100) Mean Corpuscular Hemoglobin 30.2 pg (25-34) Mean Corpuscular Hemoglobin Concent 32.2 g/dl (32-36) Platelet Count 198 K/uL (130-400) Mean Platelet Volume 10.2 fL (7.4-10.4) Neutrophils (%) (Auto) 69.8 % Lymphocytes (%) (Auto) 21.3 % Monocytes (%) (Auto) 6.0 % Eosinophils (%) (Auto) 2.5 % Basophils (%) (Auto) 0.3 % Neutrophils # (Auto) 6.63 K/uL (1.4-6.5) Lymphocytes # (Auto) 2.02 K/uL (1.2-3.4) Monocytes # (Auto) 0.57 K/uL (0.11-0.59) Eosinophils # (Auto) 0.24 K/uL (0-0.5) Basophils # (Auto) 0.03 K/uL (0-0.2) RDW Standard Deviation 49.0 fL (36.4-46.3) RDW Coefficient of Variation 14.3 % (11.5-14.5) Immature Granulocyte % (Auto) 0.1 % Immature Granulocyte # (Auto) 0.01 K/uL (0.00-0.02) Prothrombin Time 11.0 SECONDS (9.0-12.0) Prothromb Time International Ratio 1.0 (0.9-1.1) Activated Partial Thromboplast Time 22.2 SECONDS (21.0-31.0) Partial Thromboplastin Ratio 0.9 Anion Gap 7.0 mmol/L (3-11) Est Creatinine Clear Calc Drug Dose 124.0 ml/min Estimated GFR () 96.1 Estimated GFR (Non- 82.9 BUN/Creatinine Ratio 9.8 (10-20) Calcium Level 9.7 mg/dl (8.5-10.1) Total Bilirubin 0.2 mg/dl (0.2-1) Direct Bilirubin < 0.1 mg/dl (0-0.2) Aspartate Amino Transf (AST/SGOT) 18 U/L (15-37) Alanine Aminotransferase (ALT/SGPT) 24 U/L (12-78) Alkaline Phosphatase 128 U/L (45-117) Creatine Kinase MB 3.5 ng/ml (0.5-3.6) Troponin I < 0.015 ng/ml (0-0.045) Total Protein 8.8 gm/dl (6.4-8.2) Albumin 3.8 gm/dl (3.4-5.0) Lipase 85 U/L (73-393) Bedside Troponin I < 0.030 ng/ml (0-0.045) Laboratory studies as stated above per my review. ECG Indication: syncope Rate (beats per minute): 60 Rhythm: normal sinus Findings: no acute ischemic change, no ectopy Comparison ECG Date: 11/12/2016 Change: no significant change ED Course 1211: Past medical records reviewed. The patient was evaluated in room C8, and a complete history and physical examination were performed. 1342: I went to check on the patient but she was at CT. 1413: I reassessed the patient at this time. She does not feel that she can go home. We had extreme difficulty getting the patient off the commode. I discussed the results and treatment plan with the patient. I answered all pertaining questions that she had. She expressed understanding and verbalized agreement. 1415: I spoke with ZION Sainz. We discussed the patient's case. [facility] Medical Decision Differential diagnoses includes closed head injury, syncope, arrhythmia, traumatic injuries, electrolyte or metabolic abnormalities. This patient comes in as described above. She has multiple medical problems. She says she's been a hard time getting around at home and she fell today she hit her head. She is on Elaquis. She also injured her right ankle. She denies any other injuries. She has a normal baseline neurologic exam. CAT scan of her head was unremarkable. She was placed on a pvc monitor. EKG was obtained and shows normal sinus rhythm without ischemic changes. She does have ahistory of A. fib flutter but is in normal sinus now. She's hadno acute electrolyte or metabolic abnormality. She does have a nondisplaced distal fibula fracture and a gel splint was applied. She was having a hard time taking care of herself before she fell now she has a fibula fracture and is on Elaquis. She has problems walking at baseline. I do not think she can safely go home. I do think she needs to be admitted for further treatment and evaluation likely placement. She apparently has been trying to get into personal care center prior to this fall. I had her rn field case manager talked to her. [facility] Medication Reconcilliation Current Medication List: was personally reviewed by me Blood Pressure Screening Patient's blood pressure: Elevated blood pressure Blood pressure disposition: Elevated BP felt to be situational Consults Time Called: 1413 Consulting Physician: ZION Sainz Returned Call: 1415 I spoke with ZION Sainz. We discussed the patient's case. The patient will be evaluated by the [facility] for further management. Impression Primary Impression: Ankle fracture, right Additional Impressions: Closed head injury Frequent falls Current use of terminal press operator anticoagulation Scribe Attestation The scribe's documentation has been prepared under my direction and personally reviewed by me in its entirety. I confirm that the note above accurately reflects all work, treatment, procedures, and medical decision making performed by me. Departure Information Dispostion Being Evaluated By Hospitalist Prescriptions Levothyroxine Sodium (LEVOTHYROXINE SODIUM) 200 Mcg Tab 250 MCG PO QAM for 30 Days, #30 Prov: Sherine Carranza .ZION 04/26/17 Referrals Brian Salas, D.OLázaro (PCP) Patient Instructions My [facility] Problem Qualifiers Primary Impression: Ankle fracture, right Encounter type: initial encounter Fracture type: closed Qualified Codes: S82.891A - Other fracture of right lower leg, initial encounter for closed fracture Additional Impressions: Closed head injury Encounter type: initial encounter Qualified Codes: S09.90XA - Unspecified injury of head, initial encounter
[2017-04-26 13:09] LABS: BASO % 0.3 %; BASO ABS # 0.03 K/uL (0-0.2); COMPLETE YES; EOS % 2.5 %; HEMATOCRIT 38.2 % (37-47); IG% 0.1 %; LYMPH % 21.3 %; LYMPH ABS # 2.02 K/uL (1.2-3.4); MEAN CELL VOLUME 93.9 fL (80-100); MEAN CORPUSCULAR HEMOGLOBIN 30.2 pg (25-34); MEAN CORPUSCULAR HGB CONC 32.2 g/dl (32-36); MEAN PLATELET VOLUME 10.2 fL (7.4-10.4); NEUT % 69.8 %; PLATELET COUNT 198 K/uL (130-400); RED BLOOD COUNT 4.07 M/uL (4.2-5.4)
[2017-04-26 13:21] LABS: PARTIAL THROMBOPLASTIN RATIO 0.9
[2017-04-26 13:26] LABS: ALT/SGPT 24 U/L (12-78); BLOOD UREA NITROGEN 8 mg/dl (7-18); BUN/CREATININE RATIO 9.8 (10-20); CALCIUM 9.7 mg/dl (8.5-10.1); CARBON DIOXIDE 28 mmol/L (21-32); CHLORIDE 101 mmol/L (98-107); CREATININE 0.81 mg/dl (0.60-1.20); GLUCOSE 96 mg/dl (70-99); POTASSIUM 3.6 mmol/L (3.5-5.1); SODIUM 136 mmol/L (136-145)
[2017-04-26 13:31] LABS: ALKALINE PHOSPHATASE 128 U/L (45-117); AST/SGOT 18 U/L (15-37)
--- NOTE | 2017-04-26 13:53 | DIAGNOSTIC IMAGING REPORT ---
HEAD CT NONCONTRAST CT DOSE: 788.63 mGycm HISTORY: Fall. Right-sided head injury. eval for trauma TECHNIQUE: Multiaxial CT images of the head were performed without the use of intravenous contrast. Automated exposure control was utilized for this study. A dose lowering technique was utilized adhering to the principles of ALARA. Comparison: Head CT 08/07/2016. Findings: The paranasal sinuses and mastoid air cells are clear. The calvarium and skull base are intact. The ventricles and sulci are within normal limits. There is no mass, hematoma, midline shift, or acute infarct. Impression: No acute intracranial abnormality. Electronically signed by: Smooth Maya M.D. 04/26/2017 1:52 PM Dictated Date/Time: 04/26/2017 1:49 PM
--- NOTE | 2017-04-26 14:08 | DIAGNOSTIC IMAGING REPORT ---
CHEST ONE VIEW PORTABLE CLINICAL HISTORY: CHEST PAIN dyspnea COMPARISON STUDY: 11/08/2016 FINDINGS: Mild cardia megaly. Prominence pulmonary vasculature, possibly due to the compromised history volumes.. Diaphragms are smooth. IMPRESSION: Negative chest. The above report was generated using voice recognition software. It may contain grammatical, syntax or spelling errors. Electronically signed by: Eduardo Bojra M.D. 04/26/2017 2:07 PM Dictated Date/Time: 04/26/2017 2:06 PM
--- NOTE | 2017-04-26 14:09 | DIAGNOSTIC IMAGING REPORT ---
RIGHT ANKLE 3 VIEWS HISTORY: Right ankle pain. eval for trauma COMPARISON: None. FINDINGS: There is no oblique fracture within the distal right fibula. This demonstrates 2 mm of posterior displacement. The ankle mortise is maintained. Diffuse soft tissue swelling. No dislocation. Small plantar and posterior calcaneal spurs. No radiopaque foreign bodies. IMPRESSION: Slightly distracted oblique fracture within the distal right fibula. Electronically signed by: Smooth Maya M.D. 04/26/2017 2:08 PM Dictated Date/Time: 04/26/2017 2:07 PM
[2017-04-26] MEDS ORDERED: ONDANSETRON INJ 2 MG/ML 2 ML VIAL IV PRN (15:00)
[2017-04-26] MEDS ORDERED: MoRPHine SULFATE 4 MG/ML 1 ML CARP\\VIAL IV ONE (15:15)
[2017-04-26] MEDS ORDERED: OXYCODONE/ACETAMINOPHEN 5-325 TAB PO PRN (15:15)
[2017-04-26] MEDS ORDERED: LEVO200T6 PO (15:22)
[2017-04-26] MEDS ORDERED: ALBUT/IPRATROP 3MG/0.5MG NEB 3 ML VIAL INH PRN (15:30)
[2017-04-26 15:36] LABS: URINE APPEARANCE CLEAR (CLEAR); URINE BILIRUBIN NEG (NEG); URINE COLOR YELLOW; URINE NITRITE NEG (NEG); URINE PH 7.5 (4.5-7.5); URINE SPECIFIC GRAVITY 1.006 (1.000-1.030); UROBILINOGEN NEG (NEG)
[2017-04-26 15:50] LABS: MANUAL MICROSCOPIC REQUIRED? NO; REVIEW REQ? NO
--- NOTE | 2017-04-26 15:54 | History and Physical ---
History & Physical Date & Time of Service: Apr 26, 2017 ~ 14:30 Chief Complaint: Right Ankle Pain Primary Care Physician: Brian Salas D.O. History of Present Illness 51 year old female who presents to the ED with right ankle pain. Patient reports that she was standing up folding clothes when she suddenly fell to the ground and hit her head. She reports she remembers falling however it is a "little foggy". She is unsure how she fell. She denies loss of coconsciousness. She reports chronic shortness of breath, occasional lightheadedness, and palpitations for the past few months but denies any immediately preceding the fall. She was able to press her Life Alert to call for help. No chest pain. Patient reports she does not feel safe at home and that she cannot care for herself. She reports she has been working with [employer] in getting set up to go to a [facility]. She denies abdominal pain, nausea, vomiting, or diarrhea. No fever or chills. She denies any urinary symptoms. In the ED, patient is found to have a nondisplaced right fibular fracture. Labs are unremarkable. BP is a little hypertensive but vitals are otherwise stable. Past Medical/Surgical History Medical Problems: (1) Anxiety Status: Chronic (2) Asthma Status: Chronic (3) 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 Status: Chronic (4) Bipolar I disorder Status: Chronic (5) Depression Status: Chronic (6) Dyslipidemia Status: Chronic (7) Epilepsy Status: Chronic (8) Fibromyalgia Status: Chronic (9) GERD (gastroesophageal reflux disease) Status: Chronic (10) H/O migraine Status: Chronic (11) Hypertension Status: Chronic (12) Hypothyroidism Status: Chronic (13) IBS (irritable bowel syndrome) Status: Chronic (14) Lung nodule Status: Chronic (15) MAURO (obstructive sleep apnea) Status: Chronic (16) Schizoaffective disorder, depressive type Status: Chronic Surgical Problems: (1) H/o lumbar hemilaminectomy Status: Chronic (2) History of hysterectomy Status: Chronic (3) History of nasal surgery Status: Chronic (4) S/P cholecystectomy Status: Chronic (5) S/P tonsillectomy Status: Chronic (6) S/P tubal ligation Status: Chronic Family History Diabetes mellitus FATHER FH: cancer MOTHER (lung CA) FH: heart disease FATHER FH: scoliosis Social History Smoking Status: Former Smoker Alcohol Use: none Immunizations History of Influenza Vaccine: Yes Influenza Vaccine Date: Sep 10, 2015 History of Tetanus Vaccine?: Yes Tetanus Immunization Date: Aug 19, 2011 History of Pneumococcal: Yes Pneumococcal Date: Mar 31, 2009 History of Hepatitis B Vaccine: Yes Hepatitis Immunization Date: Jan 16, 2014 Multi-Drug Resistant Organisms History of MDRO: No Allergies Coded Allergies: Hydantoins (Verified Allergy, Unknown, 04/26/17) Phenytoin (Verified Allergy, Unknown, 04/26/17) Ethanol (Verified Adverse Reaction, Severe, SEIZURES, 04/26/17) SEIZURES Thioridazine (Verified Adverse Reaction, Severe, SEIZURES, 04/26/17) SEIZURES Home Medications Scheduled Apixaban (Eliquis), 5 MG PO BID Aripiprazole (Abilify), 30 MG PO DAILY Buspirone Hcl (Buspirone Hcl), 30 MG PO BID Dicyclomine Hcl (Bentyl), 10 MG PO TID Fluticasone Furoate-Vilanterol (Breo Ellipta), 1 PUFF PO QAM Furosemide (Lasix), 20 MG PO MWF Lamotrigine (Lamictal), 200 MG PO BID Levothyroxine Sodium (Levothyroxine Sodium), 250 MCG PO QAM Multiple Vitamins W/ Minerals (Multiple Vitamins/Womens), 1 TAB PO DAILY Potassium Chloride (Micro-K Ext Rel), 10 MEQ PO DAILY Ranitidine Hcl (Zantac), 150 MG PO BID Riboflavin (Vitamin B-2), 100 MG PO QAM Simvastatin (Simvastatin), 20 MG PO HS Sotalol HCl (Sotalol HCl), 80 MG PO BID Topiramate (Topamax), 100 MG PO BID Venlafaxine Hcl (Effexor Extended Rel), 150 MG PO QAM Scheduled PRN Levalbuterol Tartrate (Levalbuterol Tartrate Hfa), 1-2 PUFFS INH Q4 PRN for Shortness of Breath Tizanidine Hcl (Zanaflex), 4 MG PO Q8 PRN for Muscle Spasms Review of Systems ROS per HPI, all other systems reviewed and negative Physical Exam Vital Signs Date Time Temp Pulse Resp B/P (MAP) Pulse Ox O2 Delivery O2 Flow Rate FiO2 04/26/17 14:17 74 20 187/88 97 Room Air 9/26/17 11:50 36.9 69 18 157/85 99 Room Air General Appearance: no apparent distress Head: normocephalic, atraumatic Eyes: normal inspection, sclerae normal ENT: hearing grossly normal Neck: supple, no JVD Respiratory/Chest: lungs clear, normal breath sounds, no respiratory distress Cardiovascular: regular rate, rhythm, no edema, normal peripheral pulses Abdomen/GI: normal bowel sounds, non tender, soft Extremities/Musculoskelatal: no calf tenderness, + pertinent finding (right ankle in air cast; right ankle pain with minimal movement of the right ankle and foot) Neurologic/Psych: no motor/sensory deficits, alert, normal mood/affect, oriented x 3 Skin: normal color, warm/dry Diagnostics Laboratory Results Results Past 24 Hours Test 04/26/17 12:56 04/26/17 13:04 04/26/17 14:50 Range/Units White Blood Count 9.50 4.8-10.8 K/uL Red Blood Count 4.07 4.2-5.4 M/uL Hemoglobin 12.3 12.0-16.0 g/dL Hematocrit 38.2 37-47 % Mean Corpuscular Volume 93.9 80-100 fL Mean Corpuscular Hemoglobin 30.2 25-34 pg Mean Corpuscular Hemoglobin Concent 32.2 32-36 g/dl Platelet Count 198 130-400 K/uL Mean Platelet Volume 10.2 7.4-10.4 fL Neutrophils (%) (Auto) 69.8 % Lymphocytes (%) (Auto) 21.3 % Monocytes (%) (Auto) 6.0 % Eosinophils (%) (Auto) 2.5 % Basophils (%) (Auto) 0.3 % Neutrophils # (Auto) 6.63 1.4-6.5 K/uL Lymphocytes # (Auto) 2.02 1.2-3.4 K/uL Monocytes # (Auto) 0.57 0.11-0.59 K/uL Eosinophils # (Auto) 0.24 0-0.5 K/uL Basophils # (Auto) 0.03 0-0.2 K/uL RDW Standard Deviation 49.0 36.4-46.3 fL RDW Coefficient of Variation 14.3 11.5-14.5 % Immature Granulocyte % (Auto) 0.1 % Immature Granulocyte # (Auto) 0.01 0.00-0.02 K/uL Prothrombin Time 11.0 9.0-12.0 SECONDS Prothromb Time International Ratio 1.0 0.9-1.1 Activated Partial Thromboplast Time 22.2 21.0-31.0 SECONDS Partial Thromboplastin Ratio 0.9 Sodium Level 136 136-145 mmol/L Potassium Level 3.6 3.5-5.1 mmol/L Chloride Level 101 98-107 mmol/L Carbon Dioxide Level 28 21-32 mmol/L Anion Gap 7.0 3-11 mmol/L Blood Urea Nitrogen 8 7-18 mg/dl Creatinine 0.81 0.60-1.20 mg/dl Est Creatinine Clear Calc Drug Dose 124.0 ml/min Estimated GFR () 96.1 Estimated GFR (Non- 82.9 BUN/Creatinine Ratio 9.8 10-20 Random Glucose 96 70-99 mg/dl Calcium Level 9.7 8.5-10.1 mg/dl Total Bilirubin 0.2 0.2-1 mg/dl Direct Bilirubin < 0.1 0-0.2 mg/dl Aspartate Amino Transf (AST/SGOT) 18 15-37 U/L Alanine Aminotransferase (ALT/SGPT) 24 12-78 U/L Alkaline Phosphatase 128 45-117 U/L Total Protein 8.8 6.4-8.2 gm/dl Albumin 3.8 3.4-5.0 gm/dl Lipase 85 73-393 U/L Bedside Troponin I < 0.030 0-0.045 ng/ml Creatine Kinase MB Ratio 0-3.[address] Head Impression: No acute intracranial abnormality. CXR IMPRESSION: Negative chest. RIGHT ANKLE XR IMPRESSION: Slightly distracted oblique fracture within the distal right fibula. Impression Assessment and Plan FALL with h/o recurrent falls at home NONDISPLACED RIGHT FIBULAR FRACTURE - admit to tele - patient presenting from home for which sounds to be like a mechanical fall; found to have right non displaced right fibular fracture - case discussed with Satya Perez PA-C - likely nonsurgical case; will place in high tide boot for now - pain control, PT/OT - fall seems to be mechanical however due to patient's reports of palpitations, will monitor on tele - monitor orthostatic BPs, check urine - noted negative CT head; no LOC - I discussed the case with Eduardo Gonsalez PA-C, patient's outpatient business architect, who just saw the patient yesterday - her reports of shortness of breath and palpitations are chronic and she declined outpatient stress testing; noted negative outpatient heart monitor 01/2017 - EKG demonstrates NSR, initial troponin is negative - will defer further cardiac testing at this time ATRIAL FIBRILLATION - currently in NSR - rhythm controlled on Sotalol - will continue - anticoagulated on Eliquis - will continued since fibular fracture is non surgical HYPOTHYROIDISM - levothyroxine recently increased to 250mcg due to elevated TSH - recheck TSH in 4-6 weeks SCHIZOAFFECTIVE DISORDER, EPILEPSY - no recent seizures - continue Effexor, Abilify, Lamictal, Topamax, BuSpar HLD - continue statin CHRONIC LOWER EXTREMITY EDEMA - continue Lasix DVT PROPHYLAXIS - on Eliquis DISPO - In my clinical judgment this beneficiary meets acute admission criteria, established by [facility], that includes being hospitalized through two midnights. - PT/OT, case management - likely will need placement, ? permanent - [facility] with transition to [facility] Attending Addendum: The patient was seen and examined in ICU Complains of more forgetfulness recently and also unsteady gait with recurrent falls The last fall was associated with minor head injury and right Fibular fracture Complains of headache and right ankle pain O/E Obese Not in any distress Chest-decrease breath sound bilaterally Heart-regular Abdomen-benign Heart-regular Abdomen-benign ,no masses Extremity-trace edema bilaterally Labs and imaging studies were reviewed Agree with the assessment and plan. DR Mary Washburn VTE Prophylaxis VTE Risk Assessment Done? Y/N: Yes Risk Level: Moderate Given or contraindicated: Other Anticoagulation
[2017-04-26] MEDS: ACETAMINOPHEN 325 MG TAB PO PRN (16:32)
[2017-04-26 17:40] VITALS: BP 171/96; PULSE 80; TEMP 36.7; O2SAT 97; Ht 170.2 cm; Wt 150.4 kg
[2017-04-26] MEDS ORDERED: INFLUENZA VIRUS QUAD VACCINE 0.5 ML SYR IM. ONE (18:30)
[2017-04-26] MEDS ORDERED: INFLUENZA ADMINISTRATION CHARGE ONE (18:30)
[2017-04-26 20:00] VITALS: BP 152/86; PULSE 81; TEMP 37.1; O2SAT 96
[2017-04-26] MEDS: DICYCLOMINE HCL 10 MG CAP PO SCH (20:09)
[2017-04-26] MEDS: SOTALOL HCL 80 MG TAB PO SCH (20:10)
[2017-04-26] MEDS: BusPIRone 15 MG TAB PO SCH (20:11)
[2017-04-26] MEDS: TOPIRAMATE 100 MG TAB PO SCH (20:12)
[2017-04-26] MEDS: APIXABAN 2.5 MG TAB PO SCH (20:13)
[2017-04-26] MEDS: SIMVASTATIN 20 MG TAB PO SCH (20:13)
[2017-04-26] MEDS: RANITIDINE HCL 150 MG TAB PO SCH (20:13)
[2017-04-26 23:30] VITALS: BP 140/73; PULSE 66; TEMP 37; O2SAT 94
[2017-04-26 23:59] VITALS: O2SAT 94
[2017-04-27] VITALS (7 sets, daily range): BP systolic 154–176; BP diastolic 80–96; PULSE 63–73; TEMP 36.5–36.9; O2SAT 93–96
[2017-04-27] MEDS ORDERED: OXYCODONE/ACETAMINOPHEN 5-325 TAB PO PRN (00:30)
[2017-04-27] MEDS ORDERED: KETOROLAC TROMETHAMINE 30 MG/ML VIAL IV ONE (00:30)
[2017-04-27 02:27] LABS: HEMATOCRIT 34.9 % (37-47); MEAN CELL VOLUME 92.3 fL (80-100); MEAN CORPUSCULAR HEMOGLOBIN 30.2 pg (25-34); MEAN CORPUSCULAR HGB CONC 32.7 g/dl (32-36); MEAN PLATELET VOLUME 9.7 fL (7.4-10.4); PLATELET COUNT 166 K/uL (130-400); RED BLOOD COUNT 3.78 M/uL (4.2-5.4)
[2017-04-27 02:45] LABS: BLOOD UREA NITROGEN 8 mg/dl (7-18); BUN/CREATININE RATIO 9.7 (10-20); CALCIUM 8.7 mg/dl (8.5-10.1); CARBON DIOXIDE 28 mmol/L (21-32); CHLORIDE 105 mmol/L (98-107); CREATININE 0.85 mg/dl (0.60-1.20); GLUCOSE 112 mg/dl (70-99); POTASSIUM 3.3 mmol/L (3.5-5.1); SODIUM 139 mmol/L (136-145)
[2017-04-27] MEDS ORDERED: POTASSIUM CHLORIDE 10 MEQ TABCR PO STA (05:07)
[2017-04-27] MEDS: LEVOTHYROXINE 200 MCG TAB PO SCH (05:36)
[2017-04-27] MEDS: LEVOTHYROXINE 50 MCG TAB PO SCH (05:37)
[2017-04-27] MEDS ORDERED: LEVOTHYROXINE 50 MCG TAB PO SCH (06:00)
[2017-04-27] MEDS: ACETAMINOPHEN 325 MG TAB PO PRN (07:42)
[2017-04-27] MEDS: TOPIRAMATE 100 MG TAB PO SCH ×2 (07:44→20:35)
[2017-04-27] MEDS: RANITIDINE HCL 150 MG TAB PO SCH ×2 (07:44→20:33)
[2017-04-27] MEDS: DICYCLOMINE HCL 10 MG CAP PO SCH ×3 (07:45→20:37)
[2017-04-27] MEDS: BusPIRone 15 MG TAB PO SCH ×2 (07:45→20:37)
[2017-04-27] MEDS: SOTALOL HCL 80 MG TAB PO SCH ×2 (07:45→20:37)
[2017-04-27] MEDS: APIXABAN 2.5 MG TAB PO SCH ×2 (07:45→20:36)
[2017-04-27] MEDS: VENLAFAXINE HCL XR 150 MG CAPXR PO SCH (07:46)
[2017-04-27] MEDS: CEROVITE ADV FORMULA TAB PO SCH (07:46)
[2017-04-27] MEDS: ARIPIprazole TAB 15 MG TAB PO SCH (07:46)
[2017-04-27] MEDS: POTASSIUM CHLORIDE 10 MEQ TABCR PO SCH (07:46)
[2017-04-27] MEDS: FUROSEMIDE 20 MG TAB PO SCH (07:46)
--- NOTE | 2017-04-27 12:40 | DIAGNOSTIC IMAGING REPORT ---
HEAD WITHOUT CONTRAST (CT) CLINICAL HISTORY: 52 years-old Female with r/o intracraneal hemorrhage. Acute head injury with concern for intracranial hemorrhage. TECHNIQUE: Multiple axial CT images of the head were obtained without contrast. A dose lowering technique was utilized adhering to the principles of ALARA. CT DOSE: 776.86 mGycm COMPARISON: CT head 04/26/2017. FINDINGS: No acute intracranial hemorrhage, midline shift, mass, large territorial ischemia or abnormal extra-axial collection. The calvarium is intact. The paranasal sinuses, mastoid air cells, and middle ear cavities are clear. Note is made of hyperostosis frontalis interna. IMPRESSION: No acute intracranial abnormality. The above report was generated using voice recognition software. It may contain grammatical, syntax or spelling errors. Electronically signed by: Von Banerjee M.D. 04/27/2017 12:39 PM Dictated Date/Time: 04/27/2017 12:37 PM
[2017-04-27] MEDS: OXYCODONE/ACETAMINOPHEN 5-325 TAB PO PRN ×2 (15:45→20:33)
[2017-04-27] MEDS ORDERED: POTASSIUM CHLORIDE 10 MEQ TABCR PO ONE (16:00)
--- NOTE | 2017-04-27 16:12 | CONSULTATION REPORT ---
DATE OF CONSULTATION: 04/27/2017 DATE OF CONSULTATION: 04/27/2017 REASON FOR CONSULT: Right minimally displaced distal fibular fracture. HISTORY OF PRESENT ILLNESS: The patient is a 52-year-old white female who was admitted last night by [facility]. At the time of her ER visit it was found that she had a distal fibular fracture of the right ankle status post fall at home. I had spoken to ZION Sainz about treatment for this gal and agreed to see her. She is currently lying in bed and she is awake and alert and states that she does have some ankle pain, but especially when she is trying to put weight on it. Otherwise at this time she has no complaints. PAST MEDICAL HISTORY: Anxiety, asthma, atrial 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, bipolar disorder, depression, dyslipidemia, epilepsy, fibromyalgia, GERD, history of migraine headaches, hypertension, hypothyroidism, irritable bowel syndrome and obstructive sleep apnea, schizoaffective disorder. PAST SURGICAL HISTORY: Lumbar hemilaminectomy, hysterectomy, history of nasal surgery, cholecystectomy, tonsillectomy and tubal ligation. FAMILY HISTORY: Cancer with her father, lung cancer of the mother, heart disease with her father and history of scoliosis in the family. SOCIAL HISTORY: The patient is a former smoker, no longer does and does not use alcohol. MEDICATIONS: Apixaban 5 mg p.o. b.i.d., Abilify 30 mg p.o. daily, buspirone 30 mg p.o. b.i.d., Bentyl 10 mg p.o. t.i.d., Breo Ellipta 1 puff q. a.m., Lasix 20 mg p.o. Tuesday, Tuesday, Tuesday, Lamictal 200 mg p.o. b.i.d., levothyroxine 250 mcg p.o. q. a.m., multivitamin daily, potassium chloride 10 mEq p.o. daily, Zantac 150 mg p.o. b.i.d., vitamin B2 100 mg p.o. q. a.m., simvastatin 20 mg p.o. at bedtime, sotalol 80 mg p.o. b.i.d., Topamax 100 mg p.o. b.i.d., and Effexor extended release 150 mg p.o. q. a.m., levalbuterol 1-2 puffs inhaler q. 4 hours p.r.n., Zanaflex 4 mg p.o. q. 8 hours p.r.n. muscle spasms. REVIEW OF SYSTEMS: As per admitting history and physical. PHYSICAL EXAMINATION: Currently at the time of her exam this morning vital signs were showing temp. 36.5, pulse 67, respirations 18, blood pressure 155/90. Pulse ox 96 on room air. Focusing in on her right lower extremity she has a high tide walking boot placed on the right ankle lower extremity which is what was recommended by myself and Dr. Moore last night. This was partially removed to examine her ankle. She has some mild swelling over the right ankle but no obvious open wounds and she is moderately tender on palpation over the distal fibula. She has some mild pain over the medial malleolus but is greater over the distal fibula. She has some mild tenderness up the tibia but no obvious step-offs and deformities noted at this time. She has some mild edema noted as well. Toes are pink and warm with good capillary refill and good sensation. The boot was then reapplied. Xray : Distal Fibula Fx Right Fibula with minimal displacement. ASSESSMENT: Distal fibular fracture with only mild displacement. PLAN: We will continue the high tide walking boot at this point in time as she will need to be toe touch weight bearing for now and may use a walker and/or crutches for ambulation. She is to follow up with Dr. Moore in 2 weeks where further x-rays will be taken and decision on weight bearing status will be done at that time. ROBBY
--- NOTE | 2017-04-27 16:28 | Progress Note ---
Internal Med Progress Note Date of Service: Apr 27, 2017. Provider Documentation: SUBJECTIVE: The patient was seen and examined Complaints of severe headache and right leg pain No chest pain,palpitation ,SOB OBJECTIVE: Vital Signs-as noted below Exam: General-NO distress at rest Morbidly Obese Eyes-Normal ENT-normal Neck-Supple Lungs-Clear to auscultate bilaterally Heart-Regular ,no murmur Abdomen-Distended ,soft Extremities-negative Neuro-AAOx3 Lab data as noted below. ASSESSMENT & PLAN: FALL with h/o recurrent falls at home NONDISPLACED RIGHT FIBULAR FRACTURE - patient presenting from home for which sounds to be like a mechanical fall; found to have right non displaced right fibular fracture - case discussed with Satya Perez PA-C - likely nonsurgical case; will place in high tide boot for - fall seems to be mechanical however due to patient's reports of palpitations, will monitor on tele - noted negative CT head; no LOC -Appreciate Ortho input and recommendation -Repeat CT of the Head -negative for any acute events -Tylenol and Percocet for pain control ATRIAL FIBRILLATION - currently in NSR -Discussed the case with Eduardo Gonsalez PA-C, patient's outpatient nurse anesthetist , who just saw the patient yesterday - her reports of shortness of breath and palpitations are chronic and she declined outpatient stress testing; noted negative outpatient heart monitor 01/2017 - rhythm controlled on Sotalol - will continue - EKG demonstrates NSR, initial troponin is negative - anticoagulated on Eliquis - will continued since fibular fracture is non surgical HYPOTHYROIDISM - levothyroxine recently increased to 250mcg due to elevated TSH - recheck TSH in 4-6 weeks SCHIZOAFFECTIVE DISORDER, EPILEPSY - no recent seizures - continue Effexor, Abilify, Lamictal, Topamax, BuSpar -Recent deterioration of Memory -will need follow up with psychiatrist as an OP HLD - continue statin CHRONIC LOWER EXTREMITY EDEMA - continue Lasix DVT PROPHYLAXIS - on Eliquis DISPO - In my clinical judgment this beneficiary meets acute admission criteria, established by [facility], that includes being hospitalized through two midnights. - PT/OT, case management - likely will need placement, permanent - [facility] with transition to [facility] -Transfer to [place] Vital Signs: Date Time Temp Pulse Resp B/P (MAP) Pulse Ox O2 Delivery O2 Flow Rate FiO2 04/27/17 16:16 36.7 67 18 154/80 (104) 95 Room Air 04/27/17 12:00 96 Room Air 04/27/17 08:00 96 Room Air 04/27/17 04:00 36.5 67 18 155/90 (111) 96 04/27/17 04:00 96 Room Air 04/26/17 23:59 94 Room Air 04/26/17 23:30 37.0 66 20 140/73 (95) 94 Room Air 04/26/17 20:00 37.1 81 20 152/86 (108) 96 Room Air 04/26/17 20:00 96 Room Air 04/26/17 17:40 36.7 80 20 171/96 97 Room Air 04/26/17 17:05 74 18 166/92 99 04/26/17 16:33 74 18 166/92 99 Room Air Lab Results: Results Past 24 Hours Test 04/26/17 20:34 04/27/17 02:17 04/27/17 05:48 Range/Units Creatine Kinase MB 1.9 0.5-3.6 ng/ml Creatine Kinase MB Ratio 0-3.0 Troponin I < 0.015 < 0.015 0-0.045 ng/ml White Blood Count 9.00 4.8-10.8 K/uL Red Blood Count 3.78 4.2-5.4 M/uL Hemoglobin 11.4 12.0-16.0 g/dL Hematocrit 34.9 37-47 % Mean Corpuscular Volume 92.3 80-100 fL Mean Corpuscular Hemoglobin 30.2 25-34 pg Mean Corpuscular Hemoglobin Concent 32.7 32-36 g/dl RDW Standard Deviation 48.0 36.4-46.3 fL RDW Coefficient of Variation 14.3 11.5-14.5 % Platelet Count 166 130-400 K/uL Mean Platelet Volume 9.7 7.4-10.4 fL Sodium Level 139 136-145 mmol/L Potassium Level 3.3 3.5-5.1 mmol/L Chloride Level 105 98-107 mmol/L Carbon Dioxide Level 28 21-32 mmol/L Anion Gap 6.0 3-11 mmol/L Blood Urea Nitrogen 8 7-18 mg/dl Creatinine 0.85 0.60-1.20 mg/dl Est Creatinine Clear Calc Drug Dose 117.3 ml/min Estimated GFR () 90.0 Estimated GFR (Non- 77.7 BUN/Creatinine Ratio 9.7 10-20 Random Glucose 112 70-99 mg/dl Calcium Level 8.7 8.5-10.1 mg/dl Magnesium Level 2.1 1.8-2.4 mg/dl Microbiology Results 04/26/17 MRSA DNA Surveillance Screen - Final, Complete Specimen Negative for MRSA by DNA Probe
[2017-04-27] MEDS: SIMVASTATIN 20 MG TAB PO SCH (20:34)
[2017-04-28] VITALS (7 sets, daily range): BP systolic 156–167; BP diastolic 83–96; PULSE 70–83; TEMP 36.5–37.1; O2SAT 93–96
[2017-04-28 01:40] LABS: URINE APPEARANCE CLEAR (CLEAR); URINE BILIRUBIN NEG (NEG); URINE COLOR YELLOW; URINE NITRITE NEG (NEG); URINE SPECIFIC GRAVITY 1.008 (1.000-1.030); UROBILINOGEN NEG (NEG)
[2017-04-28 01:41] LABS: MANUAL MICROSCOPIC REQUIRED? NO; REVIEW REQ? NO
[2017-04-28] MEDS: LEVOTHYROXINE 50 MCG TAB PO SCH (06:13)
[2017-04-28] MEDS: LEVOTHYROXINE 200 MCG TAB PO SCH (06:13)
[2017-04-28] MEDS: RANITIDINE HCL 150 MG TAB PO SCH ×2 (08:56→21:35)
[2017-04-28] MEDS: CEROVITE ADV FORMULA TAB PO SCH (08:56)
[2017-04-28] MEDS: DICYCLOMINE HCL 10 MG CAP PO SCH ×3 (08:56→21:34)
[2017-04-28] MEDS: BusPIRone 15 MG TAB PO SCH ×2 (08:56→21:34)
[2017-04-28] MEDS: SOTALOL HCL 80 MG TAB PO SCH ×2 (08:57→21:35)
[2017-04-28] MEDS: VENLAFAXINE HCL XR 150 MG CAPXR PO SCH (08:57)
[2017-04-28] MEDS: APIXABAN 2.5 MG TAB PO SCH ×2 (08:57→21:35)
[2017-04-28] MEDS: POTASSIUM CHLORIDE 10 MEQ TABCR PO SCH (08:57)
[2017-04-28] MEDS: ARIPIprazole TAB 15 MG TAB PO SCH (08:58)
[2017-04-28] MEDS: TOPIRAMATE 100 MG TAB PO SCH ×2 (08:58→21:35)
[2017-04-28] MEDS: OXYCODONE/ACETAMINOPHEN 5-325 TAB PO PRN ×2 (09:06→15:47)
[2017-04-28 09:09] LABS: CALCIUM 9.2 mg/dl (8.5-10.1); CREATININE 0.71 mg/dl (0.60-1.20); POTASSIUM 4.1 mmol/L (3.5-5.1)
[2017-04-28] MEDS ORDERED: PSYLLIUM 58.6% PWD PACK S\\F PO ONE (09:15)
[2017-04-28] MEDS ORDERED: LOPERAMIDE HCL 2 MG CAP PO ONE (12:45)
--- NOTE | 2017-04-28 19:39 | Progress Note ---
Internal Med Progress Note Date of Service: Apr 28, 2017. Provider Documentation: SUBJECTIVE: sitting on the chair comfortably says her right arm gave away when when she was moved to chair but ok now says having diarrhea no sob or chest pain pain in right lower extremity OBJECTIVE: Vital Signs-as noted below Exam: General-alert and awake. not in distress ENT-normal hearing Neck-no neck masses supple Lungs-cta b/l no wheezing or crackles Heart-s1 and s2 heard regular rate and rhythm no murmurs Abdomen-soft bowel sounds present non tender no distension Extremities-no erythema rt lower extremity in brace. right upper extremity power 5/5 Neuro-alert and awake moves extremities Lab data as noted below. ASSESSMENT & PLAN: FALL with h/o recurrent falls at home NONDISPLACED RIGHT FIBULAR FRACTURE mechanical fall ct head unremarkable appreciate ortho input plan for [facility] ATRIAL FIBRILLATION currently in NSR Dr. Washburn Discussed the case with Eduardo Gonsalez PA-C, patient's outpatient lehr stripper, who just saw the patient yesterday - her reports of shortness of breath and palpitations are chronic and she declined outpatient stress testing; noted negative outpatient heart monitor 01/2017" on sotalol and eliquis. HYPOTHYROIDISM levothyroxine was recently increased to 250mcg due to elevated TSH To recheck TSH in 4-6 weeks SCHIZOAFFECTIVE DISORDER, EPILEPSY no recent seizures on Effexor, Abilify, Lamictal, Topamax, BuSpar follow up with psychiatrist as an OP HLD on statin CHRONIC LOWER EXTREMITY EDEMA on Lasix DVT PROPHYLAXIS on Eliquis DISPOSITION plan for [facility] possibly in am Vital Signs: Date Time Temp Pulse Resp B/P (MAP) Pulse Ox O2 Delivery O2 Flow Rate FiO2 04/28/17 15:17 36.5 70 17 158/91 (113) 93 Room Air 04/28/17 11:00 Room Air 04/28/17 11:00 36.6 74 18 164/83 (110) 95 Room Air 04/28/17 08:00 96 Room Air 04/28/17 07:29 37.1 83 20 167/96 (119) 96 Room Air 04/28/17 05:00 36.8 73 16 158/87 (110) 95 Room Air 04/28/17 04:00 94 Room Air 04/27/17 23:59 36.9 63 16 170/89 (116) 94 Room Air 04/27/17 23:59 94 Room Air 04/27/17 20:00 36.9 70 17 176/83 (114) 94 Room Air 04/27/17 20:00 94 Room Air Lab Results: Results Past 24 Hours Test 04/28/17 01:30 04/28/17 08:22 Range/Units Urine Color YELLOW Urine Appearance CLEAR CLEAR Urine pH 7.0 4.5-7.5 Urine Specific [place] 1.008 1.000-1.030 Urine Protein NEG NEG Urine Glucose (UA) NEG NEG Urine Ketones NEG NEG Urine Occult Blood NEG NEG Urine Nitrite NEG NEG Urine Bilirubin NEG NEG Urine Urobilinogen NEG NEG Urine Leukocyte Esterase NEG NEG Sodium Level 139 136-145 mmol/L Potassium Level 4.1 3.5-5.1 mmol/L Chloride Level 105 98-107 mmol/L Carbon Dioxide Level 27 21-32 mmol/L Anion Gap 7.0 3-11 mmol/L Blood Urea Nitrogen 6 7-18 mg/dl Creatinine 0.71 0.60-1.20 mg/dl Est Creatinine Clear Calc Drug Dose 138.9 ml/min Estimated GFR () 111.9 Estimated GFR (Non- 96.6 BUN/Creatinine Ratio 8.0 10-20 Random Glucose 156 70-99 mg/dl Calcium Level 9.2 8.5-10.1 mg/dl Magnesium Level 2.0 1.8-2.4 mg/dl Microbiology Results 04/28/17 Urine Culture, Received Pending
[2017-04-28] MEDS: SIMVASTATIN 20 MG TAB PO SCH (21:35)
[2017-04-29] MEDS: LEVOTHYROXINE 200 MCG TAB PO SCH (05:17)
[2017-04-29] MEDS: LEVOTHYROXINE 50 MCG TAB PO SCH (05:18)
[2017-04-29 06:47] VITALS: BP 146/83; PULSE 73; TEMP 36.8; O2SAT 95
[2017-04-29] MEDS ORDERED: PSYLLIUM 58.6% PWD PACK S\\F PO SCH (09:00)
[2017-04-29] MEDS: DICYCLOMINE HCL 10 MG CAP PO SCH ×2 (09:10→13:30)
[2017-04-29] MEDS: SOTALOL HCL 80 MG TAB PO SCH (09:10)
[2017-04-29] MEDS: ARIPIprazole TAB 15 MG TAB PO SCH (09:10)
[2017-04-29] MEDS: APIXABAN 2.5 MG TAB PO SCH (09:11)
[2017-04-29] MEDS: RANITIDINE HCL 150 MG TAB PO SCH (09:11)
[2017-04-29] MEDS: TOPIRAMATE 100 MG TAB PO SCH (09:11)
[2017-04-29] MEDS: BusPIRone 15 MG TAB PO SCH (09:11)
[2017-04-29] MEDS: VENLAFAXINE HCL XR 150 MG CAPXR PO SCH (09:11)
[2017-04-29] MEDS: POTASSIUM CHLORIDE 10 MEQ TABCR PO SCH (09:12)
[2017-04-29] MEDS: FUROSEMIDE 20 MG TAB PO SCH (09:12)
[2017-04-29] MEDS: CEROVITE ADV FORMULA TAB PO SCH (09:12)
[2017-04-29] MEDS: OXYCODONE/ACETAMINOPHEN 5-325 TAB PO PRN (11:26)
[2017-04-29] MEDS ORDERED: LORAZEPAM 1 MG TAB PO PRN (12:00)
--- NOTE | 2017-04-29 13:02 | Progress Note ---
Internal Med Progress Note Date of Service: Apr 29, 2017. Provider Documentation: SUBJECTIVE: sitting on the chair comfortably her right leg hurts says her stomach is nervous her Klonopin was stooped by her psychiatry no sob or cough afebrile ok for [facility] OBJECTIVE: Vital Signs-as noted below Exam: General-alert and awake. not in distress ENT-normal hearing Neck-no neck masses supple Lungs-cta b/l no wheezing or crackles Heart-s1 and s2 heard regular rate and rhythm no murmurs Abdomen-soft bowel sounds present non tender no distension Extremities-no erythema rt lower extremity in brace. right upper extremity power 5/5 Neuro-alert and awake moves extremities Lab data as noted below. ASSESSMENT & PLAN: FALL with h/o recurrent falls at home NONDISPLACED RIGHT FIBULAR FRACTURE mechanical fall ct head unremarkable appreciate ortho input plan for [facility] ATRIAL FIBRILLATION currently in [facility] Dr. Washburn Discussed the case with Eduardo Gonsalez PA-C, patient's outpatient ui ux web developer, who just saw the patient yesterday - her reports of shortness of breath and palpitations are chronic and she declined outpatient stress testing; noted negative outpatient heart monitor 01/2017" on sotalol and eliquis.stable HYPOTHYROIDISM levothyroxine was recently increased to 250mcg due to elevated TSH To recheck TSH in 4-6 weeks SCHIZOAFFECTIVE DISORDER, EPILEPSY no recent seizures on Effexor, Abilify, Lamictal, Topamax, BuSpar follow up with psychiatrist as an OP HLD on statin CHRONIC LOWER EXTREMITY EDEMA on Lasix DVT PROPHYLAXIS on Eliquis DISPOSITION plan for [facility] Vital Signs: Date Time Temp Pulse Resp B/P (MAP) Pulse Ox O2 Delivery O2 Flow Rate FiO2 04/29/17 07:30 Room Air 04/29/17 06:47 36.8 73 16 146/83 (104) 95 Room Air 04/29/17 00:05 Room Air 04/28/17 23:30 36.5 79 20 156/96 (116) 94 Room Air 04/28/17 15:50 Room Air 04/28/17 15:17 36.5 70 17 158/91 (113) 93 Room Air
[2017-04-29] MEDS ORDERED: OXYC7.5T65 PO (13:04)
[2017-04-29] MEDS ORDERED: BUSP30TA2 PO (13:05)
[2017-04-29] MEDS ORDERED: TIZA2TAB3 PO (13:05)
--- NOTE | 2017-04-29 13:07 | Discharge Instructions ---
Discharge Instructions Date of Service Apr 29, 2017. Admission Reason for Admission: Right Fibular Fracture Discharge Discharge Diagnosis / Problem: RIGHT FIBULAR FRACTURE Discharge Goals Goal(s): Decrease discomfort, Improve function Activity Recommendations Activity Level: Up Ad Thuy, Assistance Required Therapies: Physical Therapy, Occupational Therapy . Additional Information Patient informed of condition: Yes Advance Directives: Yes DNR: No Level of Care: Acute Rehab Communicable Disease: No Prognosis: Stable Anderson Catheter: Yes (KINDLY WEAN OFF ANDERSON) Instructions / Follow-Up Instructions / Follow-Up FOLLOWUP WITH FAMILY DOCTOR ONE WEEK FOLLOWUP WITH PSYCHIATRIST IN 1-2 WEEKS LAB: TSH AND FREE T4 AND FREE T3 IN 4- 6 WEEKS AND FOLLOW RESULTS WITH FAMILY DOCTOR. Current Hospital Diet Patient's current hospital diet: AHA Diet (Heart Healthy) Discharge Diet Recommended Diet: AHA Diet (Heart Healthy) Pending Studies Studies pending at discharge: no Physician Orders On Transfer Special Precautions: FALL AND ASPIRATION PRECAUTIONS Vital Signs: EVERY 8HRS Medical Emergencies . Who to Call and When: Medical Emergencies: If at any time you feel your situation is an emergency, please call 911 immediately. . Non-Emergent Contact Non-Emergency issues call your: Primary Care Provider . . "Provider Documentation" section prepared by Santana Smith. . Core Measure Problem Core Measures: None
--- NOTE | 2017-04-29 13:12 | Discharge Summary ---
Discharge Summary Date of Service Apr 29, 2017. Discharge Summary Admission Date: Apr 26, 2017 at 14:49 Discharge Date: Apr 29, 2017 Discharge Disposition: Rehab Principal Diagnosis: RIGHT FIBULAR FRACTURE S/P FALL Secondary Diagnoses/Problems: (1) Anxiety Status: Chronic (2) Asthma Status: Chronic (3) 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 Status: Chronic (4) Bipolar I disorder Status: Chronic (5) Depression Status: Chronic (6) Dyslipidemia Status: Chronic (7) Epilepsy Status: Chronic (8) Fibromyalgia Status: Chronic (9) GERD (gastroesophageal reflux disease) Status: Chronic (10) H/O migraine Status: Chronic (11) Hypertension Status: Chronic (12) Hypothyroidism Status: Chronic (13) IBS (irritable bowel syndrome) Status: Chronic (14) Lung nodule Status: Chronic (15) MAURO (obstructive sleep apnea) Status: Chronic (16) Schizoaffective disorder, depressive type Status: Chronic Procedures: HEAD CT: No acute intracranial abnormality. CXR: Negative chest. RIGHT ANKLE XRAY: Slightly distracted oblique fracture within the distal right fibula. CT HEAD: No acute intracranial abnormality Consultations: ORTHOPEDICS Medication Reconciliation New Medications: Oxycodone/Acetaminophen 7.5MG/325MG (Percocet 7.5MG/325MG) Tab 1 TAB PO Q6 PRN for Pain, #14 TAB Continued Medications: Apixaban (Eliquis) 2.5 Mg Tab 5 MG PO BID Aripiprazole (Abilify) 30 Mg Tab 30 MG PO DAILY, TAB Buspirone Hcl (Buspirone Hcl) 30 Mg Tab 30 MG PO BID, #20 (This prescription has been renewed) Dicyclomine Hcl (Bentyl) 10 Mg Cap 10 MG PO TID, CAP Fluticasone Furoate-Vilanterol (Breo Ellipta) 1 Inh Inh 1 PUFF PO QAM Furosemide (Lasix) 20 Mg Tab 20 MG PO MWF, TAB Lamotrigine (Lamictal) 200 Mg Tab 200 MG PO BID, TAB Levalbuterol Tartrate (Levalbuterol Tartrate Hfa) 45 Mcg/Act Aer 1-2 PUFFS INH Q4 PRN for Shortness of Breath Levothyroxine Sodium (Levothyroxine Sodium) 200 Mcg Tab 250 MCG PO QAM for 30 Days, #30 Multiple Vitamins W/ Minerals (Multiple Vitamins/Womens) 1 Tab Tab 1 TAB PO DAILY Potassium Chloride (Micro-K Ext Rel) 10 Meq Capcr 10 MEQ PO DAILY for 30 Days, #30 1 Refill Ranitidine Hcl (Zantac) 150 Mg Tab 150 MG PO BID, TAB Riboflavin (Vitamin B-2) 100 Mg Tab 100 MG PO QAM Simvastatin (Simvastatin) 20 Mg Tab 20 MG PO HS Sotalol HCl (Sotalol HCl) 80 Mg Tab 80 MG PO BID for 30 Days, #60 TAB 1 Refill Tizanidine Hcl (Zanaflex) 2 Mg Tab 4 MG PO Q8 PRN for Muscle Spasms, #14 TAB (This prescription has been renewed) Topiramate (Topamax) 50 Mg Tab 100 MG PO BID, #120 Venlafaxine Hcl (Effexor Extended Rel) 150 Mg Capcr 150 MG PO QAM Admission Information HPI (per Admitting provider): 51 year old female who presents to the ED with right ankle pain. Patient reports that she was standing up folding clothes when she suddenly fell to the ground and hit her head. She reports she remembers falling however it is a "little foggy". She is unsure how she fell. She denies loss of coconsciousness. She reports chronic shortness of breath, occasional lightheadedness, and palpitations for the past few months but denies any immediately preceding the fall. She was able to press her Life Alert to call for help. No chest pain. Patient reports she does not feel safe at home and that she cannot care for herself. She reports she has been working with [employer] in getting set up to go to a long term. She denies abdominal pain, nausea, vomiting, or diarrhea. No fever or chills. She denies any urinary symptoms. In the ED, patient is found to have a nondisplaced right fibular fracture. Labs are unremarkable. BP is a little hypertensive but vitals are otherwise stable. Physical Exam (per Admitting): General Appearance: no apparent distress Head: normocephalic, atraumatic Eyes: normal inspection, sclerae normal ENT: hearing grossly normal Neck: supple, no JVD Respiratory/Chest: lungs clear, normal breath sounds, no respiratory distress Cardiovascular: regular rate, rhythm, no edema, normal peripheral pulses Abdomen/GI: normal bowel sounds, non tender, soft Extremities/Musculoskelatal: no calf tenderness, + pertinent finding (right ankle in air cast; right ankle pain with minimal movement of the right ankle and foot) Neurologic/Psych: no motor/sensory deficits, alert, normal mood/affect, oriented x 3 Skin: normal color, warm/dry Hospital Course FALL with h/o recurrent falls at home NONDISPLACED RIGHT FIBULAR FRACTURE mechanical fall ct head unremarkable appreciate ortho input plan for critical access hospital ATRIAL FIBRILLATION currently in [facility] Dr. Washburn Discussed the case with Eduardo Gonsalez PA-C, patient's outpatient slurry plant operator, who just saw the patient yesterday - her reports of shortness of breath and palpitations are chronic and she declined outpatient stress testing; noted negative outpatient heart monitor 01/2017" on sotalol and eliquis.stable HYPOTHYROIDISM levothyroxine was recently increased to 250mcg due to elevated TSH To recheck TSH in 4-6 weeks SCHIZOAFFECTIVE DISORDER, EPILEPSY no recent seizures on Effexor, Abilify, Lamictal, Topamax, BuSpar follow up with psychiatrist as an OP HLD on statin CHRONIC LOWER EXTREMITY EDEMA on Lasix DVT PROPHYLAXIS on Eliquis DISPOSITION plan for critical access hospital Total time spent on discharge = 40MINUTES This includes examination of the patient, discharge planning, medication reconciliation, and communication with other providers. Discharge Instructions Discharge Instructions Date of Service Apr 29, 2017. Admission Reason for Admission: Right Fibular Fracture Discharge Discharge Diagnosis / Problem: RIGHT FIBULAR FRACTURE Discharge Goals Goal(s): Decrease discomfort, Improve function Activity Recommendations Activity Level: Up Ad Thuy, Assistance Required Therapies: Physical Therapy, Occupational Therapy . Additional Information Patient informed of condition: Yes Advance Directives: Yes DNR: No Level of Care: Acute Rehab Communicable Disease: No Prognosis: Stable Anderson Catheter: Yes (KINDLY WEAN OFF ANDERSON) Instructions / Follow-Up Instructions / Follow-Up FOLLOWUP WITH FAMILY DOCTOR ONE WEEK FOLLOWUP WITH PSYCHIATRIST IN 1-2 WEEKS LAB: TSH AND FREE T4 AND FREE T3 IN 4- 6 WEEKS AND FOLLOW RESULTS WITH FAMILY DOCTOR. Current Hospital Diet Patient's current hospital diet: AHA Diet (Heart Healthy) Discharge Diet Recommended Diet: AHA Diet (Heart Healthy) Pending Studies Studies pending at discharge: no Physician Orders On Transfer Special Precautions: FALL AND ASPIRATION PRECAUTIONS Vital Signs: EVERY 8HRS Medical Emergencies . Who to Call and When: Medical Emergencies: If at any time you feel your situation is an emergency, please call 911 immediately. . Non-Emergent Contact Non-Emergency issues call your: Primary Care Provider . . "Provider Documentation" section prepared by Santana Smith. . Core Measure Problem Core Measures: None
[2017-04-29 13:21] VITALS: BP 146/83; PULSE 73; TEMP 36.8; O2SAT 95
[2017-04-29 15:11] VITALS: BP 132/88; PULSE 81; O2SAT 95
== END 2017-04-29 16:04 | DRG 563 ==
LOC: EDBD 11:49 → C.EDC 11:50 → C.MSICU 14:49 → ENRESERV 15:05 → C.MSN 04-28 10:54
PROVIDERS: ADMIT Internal Medicine; ATTEND Internal Medicine
PROC: 0T9B70Z Drainage of Bladder with Drainage Device, Via Natural or Artificial Opening (ICD-10-PCS; principal; 2017-04-26)
DX: S82.831A Other fracture of upper and lower end of right fibula, initial encounter for closed fracture (principal); Z68.43 Body mass index [BMI] 50.0-59.9, adult; W19.XXXA Unspecified fall, initial encounter; R29.6 Repeated falls; I48.91 Unspecified atrial fibrillation; E03.9 Hypothyroidism, unspecified; F25.9 Schizoaffective disorder, unspecified; G40.909 Epilepsy, unspecified, not intractable, without status epilepticus; E78.5 Hyperlipidemia, unspecified; R60.0 Localized edema; J45.909 Unspecified asthma, uncomplicated; K21.9 Gastro-esophageal reflux disease without esophagitis; E66.9 Obesity, unspecified; Y93.E2 Activity, laundry; Y92.009 Unspecified place in unspecified non-institutional (private) residence as the place of occurrence of the external cause; Y99.8 Other external cause status; Z87.891 Personal history of nicotine dependence; Z79.01 Long term (current) use of anticoagulants; Z79.51 Long term (current) use of inhaled steroids; Z79.899 Other long term (current) drug therapy; Z83.3 Family history of diabetes mellitus; Z82.49 Family history of ischemic heart disease and other diseases of the circulatory system; Z80.1 Family history of malignant neoplasm of trachea, bronchus and lung; Z82.69 Family history of other diseases of the musculoskeletal system and connective tissue

== ENCOUNTER → 2017-05-19 | Outpatient (CLI) | payer OTHER ==
[~2017-05-19] MED LIST changes: -AMIT10TA6 PO; -CLON0.5T3 PO; +DICY10CA55 PO; -DICY1TAB25 PO; +FURO-85 PO; -FURO20TA PO; -NXM/40 PO; +OXYC7.5T65 PO; +RANI150T3 PO; +RIBO100T9 PO
[2017-05-19 09:54] LABS: URINE APPEARANCE CLEAR (CLEAR); URINE BILIRUBIN NEG (NEG); URINE COLOR YELLOW; URINE EPITHELIAL CELL AUTO >30 /lpf (0-5); URINE NITRITE NEG (NEG); URINE PH 6.5 (4.5-7.5); URINE SPECIFIC GRAVITY 1.012 (1.000-1.030); UROBILINOGEN NEG (NEG)
[2017-05-19 09:55] LABS: MANUAL MICROSCOPIC REQUIRED? NO; REVIEW REQ? NO
== END | disposition home or self-care (01) ==
LOC: C.LABWYN 08:40
PROVIDERS: ATTEND Family Medicine
DX: R30.0 Dysuria (principal)

== ENCOUNTER 2017-07-02 16:54 | Emergency (ER) | payer OTHER ==
[~2017-07-02] VITALS: Ht 170.2 cm; Wt 153.1 kg
[~2017-07-02 16:54] MED LIST changes: -EFFSR150 PO; -FLUT1INH PO; -SIMV-151 PO
[2017-07-02] MEDS ORDERED: FLUT1INH PO (16:57)
[2017-07-02 17:00] VITALS: Ht 170.2 cm; Wt 153.1 kg
[2017-07-02] MEDS ORDERED: SIMV-151 PO (17:10)
[2017-07-02] MEDS ORDERED: EFFSR150 PO (17:10)
[2017-07-02] MEDS ORDERED: HYDROCODONE/ACETAMOPHEN 5/325MG TAB PO STA (17:18)
[2017-07-02] MEDS ORDERED: LEVO50TA6 PO (17:50)
[2017-07-02] MEDS ORDERED: TOPI50TA16 PO (17:50)
[2017-07-02] MEDS ORDERED: APIX1TAB3 PO (17:50)
[2017-07-02] MEDS ORDERED: SOTA80TA PO (17:50)
[2017-07-02] MEDS ORDERED: FLUT0.15 NAE (17:50)
[2017-07-02] MEDS ORDERED: BUSP30TA2 PO (17:50)
[2017-07-02] MEDS ORDERED: POTA10CA28 PO (17:50)
[2017-07-02] MEDS ORDERED: NYST1POW7 TOP (17:50)
[2017-07-02] MEDS ORDERED: TIZA4CAP PO (17:50)
[2017-07-02] MEDS ORDERED: MELA1TAB49 PO (17:50)
[2017-07-02] MEDS ORDERED: MULT-411 PO (17:50)
[2017-07-02] MEDS ORDERED: LEVO200T6 PO (17:50)
[2017-07-02] MEDS ORDERED: IBUP-1050 PO (17:58)
[2017-07-02] MEDS ORDERED: NAPR1TAB9 PO (17:58)
[2017-07-02] MEDS ORDERED: LOPE1CAP6 PO (17:58)
[2017-07-02] MEDS ORDERED: OXYC-609 PO (17:58)
[2017-07-02] MEDS ORDERED: ACET-1256 PO (17:58)
--- NOTE | 2017-07-02 18:08 | DIAGNOSTIC IMAGING REPORT ---
L FOOT MIN 3 VIEWS ROUTINE HISTORY: 52 years-old Female foot pain/no known trauma acute left-sided foot pain without reported trauma COMPARISON: None available TECHNIQUE: 3 views of the left foot FINDINGS: Mild first MTP joint osteoarthritis. Accessory navicular and os peroneum are noted. No acute fracture, dislocation or stress fracture identified. There is mild degenerative dorsal spurring about the midfoot. Mild forefoot soft tissue swelling without opaque foreign body. Postsurgical changes of the calcaneus suggest prior acute disease tendon repair. Prominent enthesophytes are noted about the calcaneus at both the Achilles and plantar insertion sites. Mild soft tissue swelling is seen within the distribution of the distal Achilles tendon. IMPRESSION: 1. Degenerative changes as above without acute fracture or dislocation. 2. Postoperative changes suggest prior distal Achilles tendon repair. 3. Mild forefoot soft tissue swelling. The above report was generated using voice recognition software. It may contain grammatical, syntax or spelling errors. Electronically signed by: Von Banerjee M.D. 07/02/2017 6:06 PM Dictated Date/Time: 07/02/2017 6:04 PM
--- NOTE | 2017-07-02 18:21 | EMERGENCY ROOM VISIT NOTE ---
ED Visit Note First contact with patient: 16:57 CHIEF COMPLAINT: Left foot pain. HISTORY of present illness: This 52-year-old obese white female presents the ER via ALS from the [facility]. The patient states that she started having pain on the bottom of her foot a few days ago but it was getting better and then today she just stepped wrong and got increased pain on the bottom of her left foot. She states it hurts to bear weight now. The patient denies any ankle pain or any numbness and tingling in her toes. The patient states she just got over problems with her right foot. The patient states she takes OxyContin which she had this morning. She also states that she took Aleve without any relief of the pain. REVIEW OF SYSTEMS: 6 system review was performed and was negative unless stated otherwise in history of present illness. PMH: The patient is healthy; see chronic problem list SOCIAL HISTORY: Patient lives at [facility] PHYSICAL EXAM: Vital Signs: Were reviewed Reviewed Nurse's notes. GENERAL: Morbidly obese 52-year-old white female appears in no acute distress. MENTAL Status: Alert and oriented 3. LEFT Foot: No gross bony deformity noted. No erythema or edema noted. The patient is nontender to palpation over the entire foot including the plantar surface. Patient is able to move her toes without difficulty. EMERGENCY DEPARTMENT COURSE: The patient was evaluated. The patient was given Kaleva 5/325 mg 2 tablets by mouth for pain. X-ray of the left foot was ordered and interpreted by the radiologist and myself. DIAGNOSTICS:L FOOT MIN 3 VIEWS ROUTINE HISTORY: 52 years-old Female foot pain/no known trauma acute left-sided foot pain without reported trauma COMPARISON: None available TECHNIQUE: 3 views of the left foot FINDINGS: Mild first MTP joint osteoarthritis. Accessory navicular and os peroneum are noted. No acute fracture, dislocation or stress fracture identified. There is mild degenerative dorsal spurring about the midfoot. Mild forefoot soft tissue swelling without opaque foreign body. Postsurgical changes of the calcaneus suggest prior acute disease tendon repair. Prominent enthesophytes are noted about the calcaneus at both the Achilles and plantar insertion sites. Mild soft tissue swelling is seen within the distribution of the distal Achilles tendon. IMPRESSION: 1. Degenerative changes as above without acute fracture or dislocation. 2. Postoperative changes suggest prior distal Achilles tendon repair. 3. Mild forefoot soft tissue swelling. The above report was generated using voice recognition software. It may contain grammatical, syntax or spelling errors. Electronically signed by: Von Banerjee M.D. 07/02/2017 6:06 PM She was informed of the findings. She also stated that she has a walker at home. The patient was independently evaluated by Dr. Wyman who agrees with treatment plan. The patient was discharged in stable condition. TREATMENT: Continue Advil in conjunction with your oxycodone for pain. Use walker for ambulation until pain is tolerable without using the walker. DIAGNOSIS: Left foot pain Problem List Medical Problems: (1) Anxiety Status: Chronic (2) Asthma Status: Chronic (3) 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 Status: Chronic (4) Bipolar I disorder Status: Chronic (5) Depression Status: Chronic (6) Dyslipidemia Status: Chronic (7) Epilepsy Status: Chronic (8) Fibromyalgia Status: Chronic (9) GERD (gastroesophageal reflux disease) Status: Chronic (10) H/O migraine Status: Chronic (11) Hypertension Status: Chronic (12) Hypothyroidism Status: Chronic (13) IBS (irritable bowel syndrome) Status: Chronic (14) Lung nodule Status: Chronic (15) MAURO (obstructive sleep apnea) Status: Chronic (16) Schizoaffective disorder, depressive type Status: Chronic Surgical Problems: (1) H/o lumbar hemilaminectomy Status: Chronic (2) History of hysterectomy Status: Chronic (3) History of nasal surgery Status: Chronic (4) S/P cholecystectomy Status: Chronic (5) S/P tonsillectomy Status: Chronic (6) S/P tubal ligation Status: Chronic Current/Historical Medications Scheduled Apixaban (Eliquis), 5 MG PO BID Aripiprazole (Abilify), 30 MG PO DAILY Buspirone Hcl (Buspirone Hcl), 30 MG PO BID17 Dicyclomine Hcl (Bentyl), 10 MG PO TID Fluticasone Furoate-Vilanterol (Breo Ellipta), 1 PUFF PO QAM Fluticasone Propionate (Nasal) (Flonase Allergy Relief), 2 SPRAYS BECKIE DAILY Furosemide (Lasix), 20 MG PO 3XWK Lamotrigine (Lamictal), 200 MG PO BID Levothyroxine Sodium (Levothyroxine Sodium), 200 MCG PO DAILY Levothyroxine Sodium (Levothyroxine Sodium), 50 MCG PO DAILY Melatonin (Melatonin), 6 MG PO HS Multiple Vitamin (Daily Julia), 1 TAB PO DAILY Nystatin (Topical) (Nystatin), 1 APPLN TOP TID Potassium Chloride (Micro-K Ext Rel), 10 MEQ PO DAILY Ranitidine Hcl (Zantac), 150 MG PO DAILY Simvastatin (Simvastatin), 20 MG PO HS Sotalol Hcl (Sotalol Hcl), 80 MG PO BID Tizanidine (Zanaflex), 4 MG PO TID Topiramate (Topamax), 100 MG PO BID Venlafaxine Hcl (Effexor Extended Rel), 150 MG PO QAM Scheduled PRN Acetaminophen (Tylenol), 500 MG PO Q4H PRN for Pain Ibuprofen (Advil), 200 MG PO Q4H PRN for Pain Loperamide Hcl (Anti-Diarrheal), 2 MG PO UD PRN for Diarrhea Naproxen (Aleve), 220 MG PO Q12 PRN for Pain Oxycodone HCl (Oxycodone HCl), 5 MG PO Q8 PRN for Severe Pain Allergies Coded Allergies: Hydantoins (Verified Allergy, Unknown, 04/26/17) Phenytoin (Verified Allergy, Unknown, 04/26/17) Ethanol (Verified Adverse Reaction, Severe, SEIZURES, 04/26/17) SEIZURES Thioridazine (Verified Adverse Reaction, Severe, SEIZURES, 04/26/17) SEIZURES Vital Signs Date Time Temp Pulse Resp B/P (MAP) Pulse Ox O2 Delivery O2 Flow Rate FiO2 07/02/17 17:00 36.6 72 18 192/98 100 Room Air Medications Administered Medications (Trade) Dose Ordered Sig/Eliana Route Start Time Stop Time Status Last Admin Dose Admin Acetaminophen/ Hydrocodone Bitart (Kaleva 5/325 Tab) 2 tab NOW STAT PO 07/02/17 17:18 07/02/17 17:20 DC 07/02/17 18:00 2 TAB Departure Information Referrals Brian Salas, D.O. (PCP) Patient Instructions [facility]
--- NOTE | 2017-07-02 18:27 | EMERGENCY ROOM VISIT NOTE ---
ED Visit Note First contact with patient: 18:14 Patient was seen by our PA/PISTON MAKER. I was involved in the patient's care and did evaluate the patient myself. I was involved in the care throughout the ER stay. The patient presents with some foot pain. On exam, there was no erythema to suggest infection. Films show some soft tissue swelling, no fracture. The patient is stable for discharge, conservative measures were recommended.
[2017-07-02 18:42] VITALS: TEMP 37.1
[2017-07-02 18:52] VITALS: BP 196/106; PULSE 66; O2SAT 96
== END 2017-07-02 18:54 | disposition home or self-care (01) ==
LOC: EDBD 16:54 → C.EDB 16:55
DX: M79.672 Pain in left foot (principal); J45.909 Unspecified asthma, uncomplicated; I10 Essential (primary) hypertension; E03.9 Hypothyroidism, unspecified; K21.9 Gastro-esophageal reflux disease without esophagitis; K58.9 Irritable bowel syndrome, unspecified; F31.9 Bipolar disorder, unspecified; F41.8 Other specified anxiety disorders; Z79.01 Long term (current) use of anticoagulants; Z79.51 Long term (current) use of inhaled steroids

== ENCOUNTER 2017-10-05 21:36 | Emergency (ER) | payer OTHER ==
[~2017-10-05 21:36] MED LIST changes: +ACET-1256 PO; +APIX1TAB3 PO; -BTP80 PO; +EFFSR150 PO; -ELQ25 PO; +FLUT0.15 NAE; +FLUT1INH PO; +IBUP-1050 PO; +LAMO200T35 PO; -LAMO200T38 PO; -LEVA45AE INH; +LEVO50TA6 PO; +LOPE1CAP6 PO; +MELA1TAB49 PO; +MULT-411 PO; +NAPR1TAB9 PO; +NYST1POW7 TOP; +OXYC-609 PO; -OXYC7.5T65 PO; -RIBO100T9 PO; +SIMV-151 PO; +SOTA80TA PO; -TIZA2TAB3 PO; +TIZA4CAP PO; +TOPI50TA16 PO; -TPM/50 PO; -[UNRECOGNIZED DRUG - CODE] PO
[2017-10-05 21:40] VITALS: TEMP 36.6; Ht 170.2 cm
[2017-10-05 21:59] VITALS: O2SAT 97
[2017-10-05 22:29] LABS: BASO % 0.4 %; BASO ABS # 0.03 K/uL (0-0.2); EOS % 3.1 %; EOS ABS # 0.23 K/uL (0-0.5); HEMOGLOBIN 11.9 g/dL (12.0-16.0); IG# 0.02 K/uL (0.00-0.02); LYMPH % 29.4 %; LYMPH ABS # 2.18 K/uL (1.2-3.4); MEAN CELL VOLUME 90.9 fL (80-100); MEAN CORPUSCULAR HEMOGLOBIN 29.2 pg (25-34); MEAN CORPUSCULAR HGB CONC 32.2 g/dl (32-36); MEAN PLATELET VOLUME 10.2 fL (7.4-10.4); MONO % 9.6 %; MONO ABS # 0.71 K/uL (0.11-0.59); NEUT % 57.2 %; NEUT ABS # 4.24 K/uL (1.4-6.5); PLATELET COUNT 180 K/uL (130-400); RED CELL DISTRIBUTION WIDTH CV 14.6 % (11.5-14.5); RED CELL DISTRIBUTION WIDTH SD 48.7 fL (36.4-46.3); WHITE BLOOD COUNT 7.41 K/uL (4.8-10.8)
[2017-10-05] MEDS ORDERED: PREMARIN VAG CRM 14 APPLN/30 GM TUBE PV STA (22:29)
[2017-10-05] MEDS ORDERED: ACETAMINOPHEN 500 MG TAB PO STA (22:29)
[2017-10-05 22:43] LABS: PTT PATIENT 28.7 SECONDS (21.0-31.0)
[2017-10-05 22:53] LABS: ALBUMIN 3.4 gm/dl (3.4-5.0); ALT/SGPT 34 U/L (12-78); BLOOD UREA NITROGEN 10 mg/dl (7-18); CALCIUM 9.1 mg/dl (8.5-10.1); CARBON DIOXIDE 31 mmol/L (21-32); CREATININE 0.66 mg/dl (0.60-1.20); GLUCOSE 130 mg/dl (70-99); POTASSIUM 3.8 mmol/L (3.5-5.1); SODIUM 139 mmol/L (136-145)
[2017-10-05 22:56] LABS: ALKALINE PHOSPHATASE 108 U/L (45-117); AST/SGOT 20 U/L (15-37); TOTAL PROTEIN 7.6 gm/dl (6.4-8.2)
[2017-10-05] MEDS ORDERED: PROAIR 90 MCG INH (23:11)
[2017-10-05] MEDS ORDERED: GUAI100S75 PO (23:11)
[2017-10-05] MEDS ORDERED: LEVA45AE INH (23:11)
[2017-10-05] MEDS ORDERED: BIOTCAP2 PO (23:11)
--- NOTE | 2017-10-05 23:31 | EMERGENCY ROOM VISIT NOTE ---
History First contact with patient: 21:38 Chief Complaint: ED VAG BLEEDING Stated Complaint: VAGINAL BLEEDING History of Present Illness The patient is a 52 year old female who presents to the Emergency Room with complaints of vaginal discomfort and dryness with bleeding for the past several hours. Patient had a hysterectomy several years ago. Patient states she went to urinate and noticed there was blood coming out of her vaginal area. Patient denies recent intercourse. Patient denies sexual assault. Patient denies recent instrumentation. Patient complains of some mild discomfort to the area, 3 out of 10. Nothing makes it better or worse. Patient denies chest pain, dyspnea, fever, chills, back pain, urinary symptoms, blood or black in her stool. Patient lives in a senior care. She states no one has assaulted her and she was asked several times with the nurse present. Patient does not have an OB /MANNEQUIN MAKER. Review of Systems An 10 system review of systems was completed with positives and pertinent negatives listed in the HPI. Past Medical/Surgical History Medical Problems: (1) Anxiety (2) Asthma (3) 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 (4) 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 with rapid ventricular response (5) Bipolar I disorder (6) Depression (7) Dyslipidemia (8) Elevated troponin I level (9) Epilepsy (10) Fibromyalgia (11) GERD (gastroesophageal reflux disease) (12) H/O migraine (13) Hypertension (14) Hypothyroidism (15) IBS (irritable bowel syndrome) (16) Lung nodule (17) MAURO (obstructive sleep apnea) (18) Schizoaffective disorder, depressive type Surgical Problems: (1) H/o lumbar hemilaminectomy (2) History of hysterectomy (3) History of nasal surgery (4) S/P cholecystectomy (5) S/P tonsillectomy (6) S/P tubal ligation Family History Diabetes mellitus FATHER FH: cancer MOTHER (lung CA) FH: heart disease FATHER FH: scoliosis Social History Smoking Status: Never Smoker Smokeless Tobacco Use: No Alcohol Use: none Drug Use: none Marital Status: single Housing Status: lives alone Current/Historical Medications Scheduled Apixaban (Eliquis), 5 MG PO BID Aripiprazole (Abilify), 30 MG PO DAILY Biotin (Biotin 5000), 1 CAP PO DAILY Buspirone Hcl (Buspirone Hcl), 30 MG PO BID Dicyclomine Hcl (Bentyl), 10 MG PO TID Fluticasone Furoate-Vilanterol (Breo Ellipta), 1 PUFF PO QAM Fluticasone Propionate (Nasal) (Flonase Allergy Relief), 2 SPRAYS BECKIE DAILY Furosemide (Lasix), 20 MG PO DAILY Lamotrigine (Lamictal), 200 MG PO BID Levothyroxine Sodium (Levothyroxine Sodium), 200 MCG PO DAILY Levothyroxine Sodium (Levothyroxine Sodium), 50 MCG PO DAILY Melatonin (Melatonin), 6 MG PO HS Multiple Vitamin (Daily Julia), 1 TAB PO DAILY Nystatin (Topical) (Nystatin), 1 APPLN TOP TID Potassium Chloride (Micro-K Ext Rel), 10 MEQ PO DAILY Ranitidine Hcl (Zantac), 150 MG PO DAILY Simvastatin (Simvastatin), 20 MG PO HS Sotalol Hcl (Sotalol Hcl), 80 MG PO BID Tizanidine (Zanaflex), 4 MG PO TID Topiramate (Topamax), 100 MG PO BID Venlafaxine Hcl (Effexor Extended Rel), 150 MG PO QAM Scheduled PRN Acetaminophen (Tylenol), 500 MG PO Q4H PRN for Pain Guaifenesin (Siltussin Sa), 10 ML PO TID PRN for Cough Ibuprofen (Advil), 200 MG PO Q4H PRN for Pain Levalbuterol Tartrate (Levalbuterol Tartrate Hfa), 1 PUFFS INH Q4 PRN for Wheezing Loperamide Hcl (Anti-Diarrheal), 2 MG PO UD PRN for Diarrhea Naproxen (Aleve), 220 MG PO Q12 PRN for Pain Oxycodone HCl (Oxycodone HCl), 5 MG PO Q8 PRN for Severe Pain [Proair Hfa 90 Mcg], 2 PUFF INH Q4 PRN for Wheezing Physical Exam Vital Signs Date Time Temp Pulse Resp B/P (MAP) Pulse Ox O2 Delivery O2 Flow Rate FiO2 10/05/17 22:37 70 10/05/17 22:16 68 22 119/78 96 Room Air 10/05/17 21:59 97 Room Air 10/05/17 21:40 36.6 80 18 197/117 95 Room Air Physical Exam VITALS: Vitals are noted on the nurse's note and reviewed by myself. Vital signs hypertensive GENERAL: Pleasant anxious appearing female, in no acute distress, nondiaphoretic , well-developed well-nourished. SKIN: Capillary reflex less than 2 seconds. HEENT: Normocephalic. PERRLA. EOMI. Nares patent. Mucous membranes moist. Neck is supple without nuchal rigidity. HEART: Regular rate and rhythm without murmurs gallops or rubs. LUNGS: Clear to auscultation bilaterally without wheezes, rales or rhonchi. No retractions or accessory muscle use. ABDOMEN: Positive bowel sounds x 4. Normal tympanic percussion. Soft, protuberant, obese, nontender, without masses or organomegaly. Golden sign negative. No guarding or rebound tenderness. No CVA tenderness exam: Normal external female genitalia with sparse hair, vaginal opening with atrophy and superficial abrasion most likely where the blood is coming from , vaginal canal with atrophy present without drainage or malodor. No lacerations appreciated. Commissions Analyst present. MUSCULOSKELETAL: No gross musculoskeletal defects. NEURO: Patient was alert and oriented to person place and time. Normal sensation to light and sharp touch. No focal neurological deficits. Medical Decision & Procedures Laboratory Results 10/05/17 22:05 Red Blood Count 4.07, Mean Corpuscular Volume 90.9, Mean Corpuscular Hemoglobin 29.2, Mean Corpuscular Hemoglobin Concent 32.2, Mean Platelet Volume 10.2, Neutrophils (%) (Auto) 57.2, Lymphocytes (%) (Auto) 29.4, Monocytes (%) (Auto) 9.6, Eosinophils (%) (Auto) 3.1, Basophils (%) (Auto) 0.4, Neutrophils # (Auto) 4.24, Lymphocytes # (Auto) 2.18, Monocytes # (Auto) 0.71, Eosinophils # (Auto) 0.23, Basophils # (Auto) 0.03 10/05/17 22:05 Test 10/05/17 21:56 10/05/17 22:05 Urine Color YELLOW Urine Appearance TURBID (CLEAR) Urine pH 8.5 (4.5-7.5) Urine Specific [place] 1.017 (1.000-1.030) Urine Protein NEG (NEG) Urine Glucose (UA) NEG (NEG) Urine Ketones NEG (NEG) Urine Occult Blood 2+ (NEG) Urine Nitrite NEG (NEG) Urine Bilirubin NEG (NEG) Urine Urobilinogen NEG (NEG) Urine Leukocyte Esterase SMALL (NEG) Urine WBC (Auto) 1-5 /hpf (0-5) Urine RBC (Auto) >30 /hpf (0-4) Urine Hyaline Casts (Auto) 1-5 /lpf (0-5) Urine Epithelial Cells (Auto) >30 /lpf (0-5) Urine Bacteria (Auto) NEG (NEG) White Blood Count 7.41 K/uL (4.8-10.8) Red Blood Count 4.07 M/uL (4.2-5.4) Hemoglobin 11.9 g/dL (12.0-16.0) Hematocrit 37.0 % (37-47) Mean Corpuscular Volume 90.9 fL (80-100) Mean Corpuscular Hemoglobin 29.2 pg (25-34) Mean Corpuscular Hemoglobin Concent 32.2 g/dl (32-36) Platelet Count 180 K/uL (130-400) Mean Platelet Volume 10.2 fL (7.4-10.4) Neutrophils (%) (Auto) 57.2 % Lymphocytes (%) (Auto) 29.4 % Monocytes (%) (Auto) 9.6 % Eosinophils (%) (Auto) 3.1 % Basophils (%) (Auto) 0.4 % Neutrophils # (Auto) 4.24 K/uL (1.4-6.5) Lymphocytes # (Auto) 2.18 K/uL (1.2-3.4) Monocytes # (Auto) 0.71 K/uL (0.11-0.59) Eosinophils # (Auto) 0.23 K/uL (0-0.5) Basophils # (Auto) 0.03 K/uL (0-0.2) RDW Standard Deviation 48.7 fL (36.4-46.3) RDW Coefficient of Variation 14.6 % (11.5-14.5) Immature Granulocyte % (Auto) 0.3 % Immature Granulocyte # (Auto) 0.02 K/uL (0.00-0.02) Prothrombin Time 10.4 SECONDS (9.0-12.0) Prothromb Time International Ratio 1.0 (0.9-1.1) Activated Partial Thromboplast Time 28.7 SECONDS (21.0-31.0) Partial Thromboplastin Ratio 1.1 Anion Gap 5.0 mmol/L (3-11) Estimated GFR () 116.1 Estimated GFR (Non- 100.1 BUN/Creatinine Ratio 15.6 (10-20) Calcium Level 9.1 mg/dl (8.5-10.1) Total Bilirubin 0.2 mg/dl (0.2-1) Aspartate Amino Transf (AST/SGOT) 20 U/L (15-37) Alanine Aminotransferase (ALT/SGPT) 34 U/L (12-78) Alkaline Phosphatase 108 U/L (45-117) Total Protein 7.6 gm/dl (6.4-8.2) Albumin 3.4 gm/dl (3.4-5.0) Globulin 4.2 gm/dl (2.5-4.0) Albumin/Globulin Ratio 0.8 (0.9-2) Medications Administered Medications (Trade) Dose Ordered Sig/Eliana Route Start Time Stop Time Status Last Admin Dose Admin Estrogens Conjugated (Premarin Vag Crm) 1 appln NOW STAT PV 10/05/17 22:29 10/05/17 22:30 DC 10/05/17 23:00 1 APPLN Acetaminophen (Tylenol Tab) 1,000 mg NOW STAT PO 10/05/17 22:29 10/05/17 22:30 DC 10/05/17 22:40 1,000 MG ED Course Prior records reviewed and summarized as above. Triage Nursing notes reviewed. Additional history obtained from friend The patient's history was concerning for vaginal irritation and bleeding Differential diagnosis: Etiologies such as vaginal atrophy, vaginal laceration, cellulitis, abscess, UTI as well as others were entertained.. Physical examination: The physical examination was consistent with vaginal irritation from atrophy ER treatment provided: Premarin cream On reassessment the patient felt better. Diagnostics interpreted by me: The labs revealed hyperglycemia without DKA. No UTI This appears to be vaginal atrophy with irritation. Patient had no large lacerations to her vaginal area. She denied any instrumentation or abuse. No UTI. She had a hysterectomy many years ago. She is not sexually active. No instrumentation. She is advised to follow-up with GAS CUTTER and family care in a few days or here in the ER sooner for heavy bleeding, pain, fevers, worsening signs or symptoms or as needed. By the evaluation outlined above emergent etiologies such as abscess, UTI as well as others were deemed relatively unlikely. The pt informed about the findings as listed above. All questions were answered and pleased with the treatment. Return instructions were outlined and the patient was discharged in stable condition. Referral: The patient was referred back to CAPACITY PLANNING MANAGER and primary care physician for follow- up in 2 to 3 days for a recheck of the current condition. Case reviewed with my attending The chart was completed utilizing [employer] Speech voice recognition software. Grammatical errors, random word insertions, pronoun errors, and incomplete sentences are an occassional consequence of this system due to software limitations, ambient noise, and hardware issues. Any formal questions or concerns about the content, text, or information contained within the body of this dictation should be directly addressed to the physician video production assistant for clarification. Medical Decision as above Medication Reconcilliation Current Medication List: was personally reviewed by me Blood Pressure Screening Patient's blood pressure: Normal blood pressure Impression Primary Impression: Vaginal irritation Departure Information Referrals Brian Salas, D.O. (PCP) Patient Instructions My [facility]
[2017-10-05 23:44] VITALS: BP 116/72; PULSE 66; O2SAT 96
--- NOTE | 2017-10-06 12:32 | Pharmacy Progress Note ---
ED Pharmacist Progress Note Date of Service: Oct 06, 2017. I was asked by charge nurse to call in a prescription for premarin cream that was not sent electronically by provider Loraine Conley PA-C. I discussed the dose and duration with Dr. Naranjo as there was not a duration indicated in Loraine Conley's note. I subsequently called in the prescription for premarin cream: insert a half gram twice weekly into vaginal canal, duration 1 month to [facility] ([phone]). I also spoke to Ashely at [facility] where the patient resides to discuss the need for follow up with PCP and/or REFRIGERATION BRAZER/SOLDERER for continued therapy.
== END 2017-10-05 23:48 | disposition home or self-care (01) ==
LOC: EDBD 21:36 → C.EDA 21:37
DX: N89.8 Other specified noninflammatory disorders of vagina (principal); S30.814A Abrasion of vagina and vulva, initial encounter; X58.XXXA Exposure to other specified factors, initial encounter; J45.909 Unspecified asthma, uncomplicated; I10 Essential (primary) hypertension; E03.9 Hypothyroidism, unspecified; I48.91 Unspecified atrial fibrillation; K21.9 Gastro-esophageal reflux disease without esophagitis; F31.9 Bipolar disorder, unspecified; F41.9 Anxiety disorder, unspecified; Z79.51 Long term (current) use of inhaled steroids; Z83.3 Family history of diabetes mellitus; Z80.1 Family history of malignant neoplasm of trachea, bronchus and lung; Z82.49 Family history of ischemic heart disease and other diseases of the circulatory system; Z82.69 Family history of other diseases of the musculoskeletal system and connective tissue

== ENCOUNTER 2017-10-25 15:13 | Emergency (ER) | payer OTHER ==
[~2017-10-25] VITALS: Ht 170.2 cm; Wt 151.1 kg
[~2017-10-25 15:13] MED LIST changes: +BIOTCAP2 PO; +GUAI100S75 PO; +LEVA45AE INH; +PROAIR 90 MCG INH
[2017-10-25 15:16] VITALS: Ht 170.2 cm; Wt 151.1 kg
[2017-10-25] MEDS ORDERED: PENI-82 PO (15:30)
[2017-10-25] MEDS ORDERED: HYDR-5688 PO (15:30)
[2017-10-25] MEDS ORDERED: HYDROCODONE/ACETAMIN 5/325MG TAB PO ONE (15:30)
[2017-10-25] MEDS ORDERED: PENICILLIN V POTASSIUM 250 MG TAB PO ONE (15:30)
[2017-10-25 15:39] VITALS: BP 199/123; PULSE 68; TEMP 36.4; O2SAT 96
--- NOTE | 2017-10-25 16:03 | EMERGENCY ROOM VISIT NOTE ---
History First contact with patient: 15:19 Chief Complaint: DENTAL PAIN Stated Complaint: GUM BLEEDING Nursing Triage Summary: Patient ambulatory to triage with the use of a cane, states "My dentist sent me here for evaluation. I noticed bleeding from my left lower jaw this morning. He said it's between teeth 19 and 20. I had some pain there earlier but it is gone now. He thinks it is an issue with my gums." History of Present Illness The patient is a 52 year old female who presents to the Emergency Room with complaints of bleeding from her left lower jaw that started this morning. The patient went to her dentist this morning, where dental exam and x-rays were performed. The dentist did not appreciate distinct dental etiology of the bleeding, and referred the patient to the ER for further evaluation. The patient is on Eliquis, but has been on this for some time. She does note some pain in the left lower jaw but no distinct swelling or lumps. She rates her current discomfort a 5/10. Review of Systems More than 10 systems were reviewed and otherwise negative with the exception of history of present illness. Past Medical/Surgical History Medical Problems: (1) Anxiety (2) Asthma (3) 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 (4) 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 with rapid ventricular response (5) Bipolar I disorder (6) Depression (7) Dyslipidemia (8) Elevated troponin I level (9) Epilepsy (10) Fibromyalgia (11) GERD (gastroesophageal reflux disease) (12) H/O migraine (13) Hypertension (14) Hypothyroidism (15) IBS (irritable bowel syndrome) (16) Lung nodule (17) MAURO (obstructive sleep apnea) (18) Schizoaffective disorder, depressive type Surgical Problems: (1) H/o lumbar hemilaminectomy (2) History of hysterectomy (3) History of nasal surgery (4) S/P cholecystectomy (5) S/P tonsillectomy (6) S/P tubal ligation Family History Diabetes mellitus FATHER FH: cancer MOTHER (lung CA) FH: heart disease FATHER FH: scoliosis Social History Smoking Status: Former Smoker Alcohol Use: none Drug Use: none Marital Status: single Housing Status: lives alone Current/Historical Medications Scheduled Apixaban (Eliquis), 5 MG PO BID Aripiprazole (Abilify), 30 MG PO DAILY Biotin (Biotin 5000), 1 CAP PO DAILY Buspirone Hcl (Buspirone Hcl), 30 MG PO BID Dicyclomine Hcl (Bentyl), 10 MG PO TID Fluticasone Furoate-Vilanterol (Breo Ellipta), 1 PUFF PO QAM Fluticasone Propionate (Nasal) (Flonase Allergy Relief), 2 SPRAYS BECKIE DAILY Furosemide (Lasix), 20 MG PO DAILY Lamotrigine (Lamictal), 200 MG PO BID Levothyroxine Sodium (Levothyroxine Sodium), 200 MCG PO DAILY Levothyroxine Sodium (Levothyroxine Sodium), 50 MCG PO DAILY Melatonin (Melatonin), 6 MG PO HS Multiple Vitamin (Daily Julia), 1 TAB PO DAILY Nystatin (Topical) (Nystatin), 1 APPLN TOP TID Penicillin V Potassium (Veetids), 500 MG PO QID Potassium Chloride (Micro-K Ext Rel), 10 MEQ PO DAILY Ranitidine Hcl (Zantac), 150 MG PO DAILY Simvastatin (Simvastatin), 20 MG PO HS Sotalol Hcl (Sotalol Hcl), 80 MG PO BID Tizanidine (Zanaflex), 4 MG PO TID Topiramate (Topamax), 100 MG PO BID Venlafaxine Hcl (Effexor Extended Rel), 150 MG PO QAM Scheduled PRN Acetaminophen (Tylenol), 500 MG PO Q4H PRN for Pain Guaifenesin (Siltussin Sa), 10 ML PO TID PRN for Cough Hydrocodone/Acetaminophen 5MG/325MG ([place] 5MG/325MG), 1 TABLET PO Q6 PRN for Pain Ibuprofen (Advil), 200 MG PO Q4H PRN for Pain Levalbuterol Tartrate (Levalbuterol Tartrate Hfa), 1 PUFFS INH Q4 PRN for Wheezing Loperamide Hcl (Anti-Diarrheal), 2 MG PO UD PRN for Diarrhea Naproxen (Aleve), 220 MG PO Q12 PRN for Pain Oxycodone HCl (Oxycodone HCl), 5 MG PO Q8 PRN for Severe Pain [Proair Hfa 90 Mcg], 2 PUFF INH Q4 PRN for Wheezing Physical Exam Vital Signs Date Time Temp Pulse Resp B/P (MAP) Pulse Ox O2 Delivery O2 Flow Rate FiO2 10/25/17 15:39 36.4 68 20 199/123 96 10/25/17 15:16 36.4 68 20 199/123 96 Room Air Physical Exam VITALS: Vitals are noted on the nurse's note and reviewed by myself. Vital signs with elevated blood pressure. GENERAL: Anxious white female, who is in no acute distress and resting comfortably. Patient is cooperative with the examination. MOUTH: Mucous membranes moist. Tonsils are not enlarged. There is a small scab appreciated in the left lower jaw between the 19th and 20th tooth. No active bleeding noted. Overall the patient has fair dentition that has been repaired multiple times. No Timothy's or obvious abscess. No facial swelling. NECK: Supple without nuchal rigidity. No lymphadenopathy. No thyromegaly. Cervical spine is nontender. HEART: Regular rate and rhythm without murmurs gallops or rubs. LUNGS: Clear to auscultation bilaterally without wheezes, rales or rhonchi. No retractions or accessory muscle use. Medical Decision & Procedures Medications Administered Medications (Trade) Dose Ordered Sig/Eliana Route Start Time Stop Time Status Last Admin Dose Admin Acetaminophen/ Hydrocodone Bitart ([place] 5/325 Tab) 1 tab NOW ONCE PO 10/25/17 15:30 10/25/17 15:31 DC 10/25/17 15:30 1 TAB Penicillin V Potassium (Veetids Tab) 500 mg NOW ONCE PO 10/25/17 15:30 10/25/17 15:31 DC 10/25/17 15:30 500 MG ED Course Physical exam and history were performed. Nursing notes, EMR, and Medication List were personally reviewed. Patient appears to have a small amount of bleeding today between her 19th and 20th teeth on the left lower jaw. She has seen a dentist already today for this complaint, and did have dental x-rays performed. The patient does not have active hemorrhage despite being on Eliquis. The patient most likely has a small infection contributing to her symptoms. She will be started on Pen-Vee K and given a short course of [place]. She is to follow-up with her PCP or dentist for further care and management. She was otherwise went back to the ER with any new, worsening, or concerning symptoms. The chart was completed utilizing [employer] Voice Recognition Software. Grammatical errors, random word insertions, pronoun errors, and incomplete sentences are an occasional consequence of this system due to software limitations, ambient noise, and hardware issues. Any formal questions or concerns about the content, text, or information contained within the body of this dictation should be directly addressed to the provider for clarification. . Medical Decision Differential diagnosis includes, but is not limited to: Coagulopathy, infection , bleeding disorder, and others Blood Pressure Screening Patient's blood pressure: Elevated blood pressure Blood pressure disposition: Elevated BP felt to be situational, Referred to PCP Impression Primary Impression: Gingival bleeding Departure Information Dispostion Home / Self-Care Condition GOOD Prescriptions Hydrocodone/Acetaminophen 5MG/325MG ([place] 5MG/325MG) Tab 1 TABLET PO Q6 Y for Pain, #10 TAB For Initial Treatment Prov: Donell Walton PA-C 10/25/17 Penicillin V Potassium (Veetids) 500 Mg Tab 500 MG PO QID for 10 Days, #40 TAB Prov: Donell Walton PA-C 10/25/17 Forms HOME CARE DOCUMENTATION FORM, IMPORTANT VISIT INFORMATION Patient Instructions My [facility] Additional Instructions You were seen and evaluated today on an emergency basis only. This is not a substitute for, or an effort to provide, complete comprehensive medical care. It is not possible to recognize and treat all injuries or illnesses in a single emergency department visit. For this reason it is recommended that you followup with your dentist with any ongoing or persisting symptoms. Take Pen-Vee K 500 mg 4 times daily for the next 10 days. [place] (hydrocodone/acetaminophen) 5/325 mg every 6 hours as needed for worsening breakthrough pain. Do not drink or drive on [place]. This medication will likely make you tired. Do not take [place] and Tylenol at the same time as both contain acetaminophen. [place] may cause constipation. You may wish to take an [id number] stool softener like Colace if this occurs. You are welcome to return to the emergency department anytime with new, worsening, or concerning symptoms.
== END 2017-10-25 15:40 | disposition home or self-care (01) ==
LOC: C.EDB 15:15 → C.EDD 15:40
DX: K06.8 Other specified disorders of gingiva and edentulous alveolar ridge (principal); J45.909 Unspecified asthma, uncomplicated; I10 Essential (primary) hypertension; F41.8 Other specified anxiety disorders; F31.9 Bipolar disorder, unspecified; E03.9 Hypothyroidism, unspecified; E78.5 Hyperlipidemia, unspecified; K21.9 Gastro-esophageal reflux disease without esophagitis; F25.1 Schizoaffective disorder, depressive type; Z87.891 Personal history of nicotine dependence; Z79.51 Long term (current) use of inhaled steroids; Z79.01 Long term (current) use of anticoagulants; Z83.3 Family history of diabetes mellitus; Z82.49 Family history of ischemic heart disease and other diseases of the circulatory system; Z82.69 Family history of other diseases of the musculoskeletal system and connective tissue; Z80.1 Family history of malignant neoplasm of trachea, bronchus and lung

== ENCOUNTER 2017-11-18 19:10 | Emergency (ER) | payer OTHER ==
[~2017-11-18] VITALS: Ht 170.2 cm; Wt 150.0 kg
[~2017-11-18 19:10] MED LIST changes: +HYDR-5688 PO
[2017-11-18 19:23] VITALS: TEMP 36.7; Ht 170.2 cm; Wt 150.0 kg
[2017-11-18 20:01] VITALS: O2SAT 99
[2017-11-18 20:14] LABS: BASO % 0.6 %; BASO ABS # 0.05 K/uL (0-0.2); EOS % 2.8 %; EOS ABS # 0.24 K/uL (0-0.5); HEMATOCRIT 37.7 % (37-47); HEMOGLOBIN 12.1 g/dL (12.0-16.0); IG# 0.02 K/uL (0.00-0.02); LYMPH % 26.3 %; LYMPH ABS # 2.28 K/uL (1.2-3.4); MEAN CELL VOLUME 90.8 fL (80-100); MEAN CORPUSCULAR HEMOGLOBIN 29.2 pg (25-34); MEAN CORPUSCULAR HGB CONC 32.1 g/dl (32-36); MEAN PLATELET VOLUME 10.3 fL (7.4-10.4); MONO % 8.4 %; MONO ABS # 0.73 K/uL (0.11-0.59); NEUT % 61.7 %; NEUT ABS # 5.35 K/uL (1.4-6.5); PLATELET COUNT 170 K/uL (130-400); RED CELL DISTRIBUTION WIDTH CV 14.4 % (11.5-14.5); RED CELL DISTRIBUTION WIDTH SD 48.1 fL (36.4-46.3); WHITE BLOOD COUNT 8.67 K/uL (4.8-10.8)
[2017-11-18] MEDS ORDERED: OPTIRAY 320 IV PRN (20:30)
[2017-11-18 20:33] LABS: ALBUMIN 3.5 gm/dl (3.4-5.0); CREATININE 0.75 mg/dl (0.60-1.20); POTASSIUM 3.4 mmol/L (3.5-5.1)
[2017-11-18 20:35] LABS: PTT PATIENT 27.4 SECONDS (21.0-31.0); TOTAL PROTEIN 7.6 gm/dl (6.4-8.2)
[2017-11-18] MEDS ORDERED: ESCI10TA17 PO (20:41)
[2017-11-18] MEDS ORDERED: SKINOIL9 OTL (20:41)
[2017-11-18] MEDS ORDERED: OXGN (20:41)
[2017-11-18] MEDS ORDERED: PRMVC PV (20:41)
[2017-11-18] MEDS ORDERED: OFLO0.3D4 OTL (20:41)
[2017-11-18] MEDS ORDERED: HYDR-5688 PO (20:41)
[2017-11-18] MEDS ORDERED: ALBU18002 INH (20:41)
--- NOTE | 2017-11-18 21:27 | DIAGNOSTIC IMAGING REPORT ---
ABD/PELVIS IV CONTRAST ONLY CT DOSE: 1745.58 mGy.cm HISTORY: left flank pain, ? vaginal bleeding, hx of total hysterectomy TECHNIQUE: Multiaxial CT images of the abdomen and pelvis were performed following the use of intravenous contrast. A dose lowering technique was utilized adhering to the principles of ALARA. COMPARISON STUDY: 03/27/2015 FINDINGS: Lung bases are clear. Liver spleen and pancreas are unremarkable. Kidneys negative for hydronephrosis. Prior cholecystectomy. Slight fullness left renal collecting system again with no evidence for hydronephrosis. Multiple pelvic vascular calcifications. Possibility of a 1.5 mm minimally obstructing calculus is considered. Bladder is midline. Prior complete hysterectomy. Bowel pattern is nonobstructive throughout. IMPRESSION: 1. Possibility of a small 1.5 mm minimally obstructing calculus distal left ureter. 2. Slight fullness of the left renal collecting system. 3. No evidence for sarah hydronephrosis. 4. Prior cholecystectomy and hysterectomy. The above report was generated using voice recognition software. It may contain grammatical, syntax or spelling errors. Electronically signed by: Eduardo Borja M.D. 11/18/2017 9:26 PM Dictated Date/Time: 11/18/2017 9:17 PM
--- NOTE | 2017-11-18 21:55 | EMERGENCY ROOM VISIT NOTE ---
ED Visit Note First contact with patient: 19:11 CHIEF COMPLAINT: Vaginal bleeding HISTORY OF PRESENT ILLNESS: This 52-year-old female presents to the emergency department via EMS with concern for vaginal bleeding that started this evening around 6 PM. Patient states that she had just gotten out of the shower when she noticed a gush of blood down her legs and all over the floor. She states that she has been having left-sided flank pain associated with the bleeding. She states that she has had continued bleeding every time that she uses the bathroom, and has changed a pad twice. She states that she had some cramping occasionally for the past few days, but denies severe or sustained pain. She has not had any abdominal injuries, fever or chills, nausea or vomiting. She states that she has not had a menstrual period in approximately 20 years, because she states she had a total hysterectomy secondary to PCOS. She denies dizziness or weakness. She does take low-dose Eliquis for history of atrial 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. REVIEW OF SYSTEMS: Head: No headache, injury or neck pain. Cardiac: No chest pain, diaphoresis, dyspnea on exertion, orthopnea, pedal edema, or palpitations. Respiratory: No cough, change in sputum, wheezes, hemoptysis, shortness of breath, or stridor. Gastrointestinal: No abdominal pain, blood in stools, diarrhea, loss of appetite, nausea, or vomiting. Skin: No rash, new lesions, or masses. General: No fever or chills, fatigue, loss of appetite , or significant recent weight gain or loss. PMH: The patient is healthy; there is no significant medical or surgical history. SOCIAL HISTORY: Patient lives at home. PHYSICAL EXAM: VITAL SIGNS: Reviewed in the chart, no acute abnormalities noted. CONSTITUTIONAL: No acute distress. Well hydrated, well appearing and well nourished. HEENT: Normocephalic, atraumatic. Pupils equal, round and reactive to light, EOMI. TMs normal. Pharynx normal. NECK: Supple, full active range of motion without discomfort. RESPIRATORY: Clear to auscultation bilaterally with no wheezing, crackles, rhonchi or stridor. Equal expansion bilaterally. CARDIOVASCULAR: Regular rate and rhythm with no murmurs, rubs or gallops. Normal peripheral perfusion. No edema. GASTROINTESTINAL: Soft, mild tenderness in the left lower quadrant and left flank to palpation, abdomen is otherwise nontender, nondistended. Obese. No rebound tenderness or guarding. Bowel sounds present in all quadrants. No CVA tenderness bilaterally. PELVIC EXAM: VULVA: No ulcers, vesicles or atrophy. VAGINA: No discharge, no foul odor, no tenderness. Scant amount of bright red blood just outside the vaginal opening, no bleeding within the vaginal canal. CERVIX: Surgically absent. UTERUS: Surgically absent, nonpalpable. ADNEXA: Nonpalpable. A nurse was present as a marketing automation analyst during the examination. MUSCULOSKELETAL: Full range of motion of all joints without discomfort. INTEGUMENTARY: No rash or other significant dermatologic conditions noted. NEUROLOGIC: Alert and oriented X 4 with normal affect. Normal strength and sensation in all 4 extremities. No focal neurologic deficits noted. Normal speech. Normal gait observed. IMAGING: ABD/PELVIS IV CONTRAST ONLY CT DOSE: 1745.58 mGy.cm HISTORY: left flank pain, ? vaginal bleeding, hx of total hysterectomy TECHNIQUE: Multiaxial CT images of the abdomen and pelvis were performed following the use of intravenous contrast. A dose lowering technique was utilized adhering to the principles of ALARA. COMPARISON STUDY: 03/27/2015 FINDINGS: Lung bases are clear. Liver spleen and pancreas are unremarkable. Kidneys negative for hydronephrosis. Prior cholecystectomy. Slight fullness left renal collecting system again with no evidence for hydronephrosis. Multiple pelvic vascular calcifications. Possibility of a 1.5 mm minimally obstructing calculus is considered. Bladder is midline. Prior complete hysterectomy. Bowel pattern is nonobstructive throughout. IMPRESSION: 1. Possibility of a small 1.5 mm minimally obstructing calculus distal left ureter. 2. Slight fullness of the left renal collecting system. 3. No evidence for sarah hydronephrosis. 4. Prior cholecystectomy and hysterectomy. EMERGENCY DEPARTMENT COURSE: I examined the patient. Differential diagnosis includes dysfunctional uterine bleeding, vaginal laceration, UTI, ureteral stone , pyelonephritis, anemia, among others. Labs reviewed, no leukocytosis or anemia, renal and liver function within normal limits. Pelvic exam noting scant amount of bright red blood outside the vaginal vault of unknown etiology, no active bleeding within the vaginal canal, and no vaginal lacerations or lesions noted on my exam. There was no tenderness on the exam. Given that patient has some bleeding of unclear etiology and left-sided flank pain, a CT of the abdomen and pelvis was ordered, which shows a possible left distal ureteral calculus, which would explain the patient's left flank pain, and could account for gross hematuria that was mistaken for vaginal bleeding. Patient was treated with IV Toradol and Flomax, and reports improvement in her pain. She has not had any additional large discharges of blood while in the emergency department. She has remained otherwise stable and well-appearing, and elevated blood pressure improved after pain medication. The patient was updated on all results and plan for discharge, she was encouraged to follow-up with her PCP and a urologist for further management of her kidney stone and possible hematuria. Patient was provided with a urine straining kit for home. Rx for Flomax was provided to the patient. Patient was also given strict return precautions should her symptoms worsen, she verbalized understanding. Patient was discharged home in stable condition and ambulatory. Medication Reconciliation: I attest that I have personally reviewed the patient' s current medication list. Patient was found to have an elevated blood pressure, and was encouraged to follow up with her primary care provider for recheck. The patient was discussed with Dr. Heller, who agrees with my assessment and plan. Problem List Medical Problems: (1) Anxiety Status: Chronic (2) Asthma Status: Chronic (3) 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 Status: Chronic (4) Bipolar I disorder Status: Chronic (5) Depression Status: Chronic (6) Dyslipidemia Status: Chronic (7) Epilepsy Status: Chronic (8) Fibromyalgia Status: Chronic (9) GERD (gastroesophageal reflux disease) Status: Chronic (10) H/O migraine Status: Chronic (11) Hypertension Status: Chronic (12) Hypothyroidism Status: Chronic (13) IBS (irritable bowel syndrome) Status: Chronic (14) Lung nodule Status: Chronic (15) MAURO (obstructive sleep apnea) Status: Chronic (16) Schizoaffective disorder, depressive type Status: Chronic Surgical Problems: (1) H/o lumbar hemilaminectomy Status: Chronic (2) History of hysterectomy Status: Chronic (3) History of nasal surgery Status: Chronic (4) S/P cholecystectomy Status: Chronic (5) S/P tonsillectomy Status: Chronic (6) S/P tubal ligation Status: Chronic Current/Historical Medications Scheduled Apixaban (Eliquis), 5 MG PO AMHS Aripiprazole (Abilify), 30 MG PO QAM Biotin (Biotin 5000), 1 CAP PO QAM Buspirone Hcl (Buspirone Hcl), 30 MG PO BID17 Dicyclomine Hcl (Bentyl), 10 MG PO TID Escitalopram (Lexapro), 10 MG PO QAM Estrogens, Conjugated (Premarin), 1 APPLN PV 2XWK Fluticasone Furoate-Vilanterol (Breo Ellipta), 1 PUFF PO QAM Fluticasone Propionate (Nasal) (Flonase Allergy Relief), 2 SPRAYS BECKIE QAM Furosemide (Lasix), 20 MG PO QAM Home O2 Therapy (Oxygen), 2 LITERS NA HS Lamotrigine (Lamictal), 200 MG PO AMHS Levothyroxine Sodium (Levothyroxine Sodium), 200 MCG PO QAM Levothyroxine Sodium (Levothyroxine Sodium), 50 MCG PO QAM Melatonin (Melatonin), 6 MG PO HS Multiple Vitamin (Daily Julia), 1 TAB PO QAM Ofloxacin (Otic) (Floxin Otic), 5 DROPS OTL BID Potassium Chloride (Micro-K Ext Rel), 10 MEQ PO QAM Ranitidine Hcl (Zantac), 150 MG PO QAM Simvastatin (Simvastatin), 20 MG PO HS Skin Oils (Baby Oil), 5 DROPS OTL Q2D Sotalol Hcl (Sotalol Hcl), 80 MG PO AMHS Tamsulosin Hcl (Flomax), 0.4 MG PO DAILY Tizanidine (Zanaflex), 4 MG PO TID Topiramate (Topamax), 100 MG PO AMHS Scheduled PRN Acetaminophen (Tylenol), 500 MG PO Q4H PRN for Pain Albuterol Sulfate (Proair Respiclick), 2 PUFFS INH Q4H PRN for Wheezing Guaifenesin (Siltussin Sa), 10 ML PO TID PRN for Cough Hydrocodone/Acetaminophen 5MG/325MG ([place] 5MG/325MG), 1 TABLET PO Q6H PRN for Pain Ibuprofen (Advil), 200 MG PO Q4H PRN for Pain Levalbuterol Tartrate (Levalbuterol Tartrate Hfa), 1 PUFFS INH Q4 PRN for Wheezing Loperamide Hcl (Anti-Diarrheal), 2 MG PO UD PRN for Diarrhea Naproxen (Aleve), 220 MG PO Q12 PRN for Pain Oxycodone HCl (Oxycodone HCl), 5 MG PO Q8 PRN for Severe Pain Allergies Coded Allergies: Hydantoins (Verified Allergy, Unknown, 11/18/17) Phenytoin (Verified Allergy, Unknown, 11/18/17) Ethanol (Verified Adverse Reaction, Severe, SEIZURES, 11/18/17) SEIZURES Thioridazine (Verified Adverse Reaction, Severe, SEIZURES, 11/18/17) SEIZURES Vital Signs Date Time Temp Pulse Resp B/P (MAP) Pulse Ox O2 Delivery O2 Flow Rate FiO2 11/18/17 22:57 76 16 126/71 98 11/18/17 22:21 66 16 205/60 96 Room Air 11/18/17 20:54 64 16 202/56 97 Room Air 11/18/17 20:01 99 Room Air 11/18/17 19:23 36.7 71 18 203/88 96 Room Air Laboratory Results 11/18/17 19:55 Red Blood Count 4.15, Mean Corpuscular Volume 90.8, Mean Corpuscular Hemoglobin 29.2, Mean Corpuscular Hemoglobin Concent 32.1, Mean Platelet Volume 10.3, Neutrophils (%) (Auto) 61.7, Lymphocytes (%) (Auto) 26.3, Monocytes (%) (Auto) 8.4, Eosinophils (%) (Auto) 2.8, Basophils (%) (Auto) 0.6, Neutrophils # (Auto) 5.35, Lymphocytes # (Auto) 2.28, Monocytes # (Auto) 0.73, Eosinophils # (Auto) 0.24, Basophils # (Auto) 0.05 11/18/17 19:55 Test 11/18/17 19:49 11/18/17 19:55 Urine Color YELLOW Urine Appearance CLEAR (CLEAR) Urine pH 7.5 (4.5-7.5) Urine Specific [place]ett 1.007 (1.000-1.030) Urine Protein NEG (NEG) Urine Glucose (UA) NEG (NEG) Urine Ketones NEG (NEG) Urine Occult Blood 1+ (NEG) Urine Nitrite NEG (NEG) Urine Bilirubin NEG (NEG) Urine Urobilinogen NEG (NEG) Urine Leukocyte Esterase NEG (NEG) Urine WBC (Auto) 0 /hpf (0-5) Urine RBC (Auto) 0-4 /hpf (0-4) Urine Hyaline Casts (Auto) 0 /lpf (0-5) Urine Epithelial Cells (Auto) 0-5 /lpf (0-5) Urine Bacteria (Auto) NEG (NEG) White Blood Count 8.67 K/uL (4.8-10.8) Red Blood Count 4.15 M/uL (4.2-5.4) Hemoglobin 12.1 g/dL (12.0-16.0) Hematocrit 37.7 % (37-47) Mean Corpuscular Volume 90.8 fL (80-100) Mean Corpuscular Hemoglobin 29.2 pg (25-34) Mean Corpuscular Hemoglobin Concent 32.1 g/dl (32-36) Platelet Count 170 K/uL (130-400) Mean Platelet Volume 10.3 fL (7.4-10.4) Neutrophils (%) (Auto) 61.7 % Lymphocytes (%) (Auto) 26.3 % Monocytes (%) (Auto) 8.4 % Eosinophils (%) (Auto) 2.8 % Basophils (%) (Auto) 0.6 % Neutrophils # (Auto) 5.35 K/uL (1.4-6.5) Lymphocytes # (Auto) 2.28 K/uL (1.2-3.4) Monocytes # (Auto) 0.73 K/uL (0.11-0.59) Eosinophils # (Auto) 0.24 K/uL (0-0.5) Basophils # (Auto) 0.05 K/uL (0-0.2) RDW Standard Deviation 48.1 fL (36.4-46.3) RDW Coefficient of Variation 14.4 % (11.5-14.5) Immature Granulocyte % (Auto) 0.2 % Immature Granulocyte # (Auto) 0.02 K/uL (0.00-0.02) Prothrombin Time 10.2 SECONDS (9.0-12.0) Prothromb Time International Ratio 1.0 (0.9-1.1) Activated Partial Thromboplast Time 27.4 SECONDS (21.0-31.0) Partial Thromboplastin Ratio 1.1 Anion Gap 5.0 mmol/L (3-11) Est Creatinine Clear Calc Drug Dose 131.3 ml/min Estimated GFR () 104.7 Estimated GFR (Non- 90.4 BUN/Creatinine Ratio 18.4 (10-20) Calcium Level 9.0 mg/dl (8.5-10.1) Total Bilirubin 0.3 mg/dl (0.2-1) Aspartate Amino Transf (AST/SGOT) 21 U/L (15-37) Alanine Aminotransferase (ALT/SGPT) 35 U/L (12-78) Alkaline Phosphatase 115 U/L (45-117) Total Protein 7.6 gm/dl (6.4-8.2) Albumin 3.5 gm/dl (3.4-5.0) Globulin 4.1 gm/dl (2.5-4.0) Albumin/Globulin Ratio 0.9 (0.9-2) Medications Administered Medications (Trade) Dose Ordered Sig/Eliana Route Start Time Stop Time Status Last Admin Dose Admin Ketorolac Tromethamine (Toradol Inj) 15 mg NOW STAT IV 11/18/17 22:07 11/18/17 22:08 DC 11/18/17 22:36 15 MG Tamsulosin HCl (Flomax Cap) 0.4 mg NOW ONCE PO 11/18/17 22:15 11/18/17 22:16 DC 11/18/17 22:36 0.4 MG Departure Information Impression Primary Impression: Left ureteral calculus Dispostion Home / Self-Care Condition GOOD Prescriptions Tamsulosin Hcl (FLOMAX) 0.4 Mg Cap 0.4 MG PO DAILY for 5 Days, #5 CAP Prov: Sanjuana Archer CRNP 11/18/17 Referrals Brian Salas, D.OLázaro (PCP) Paul Rincon MD Patient Instructions ED Hematuria, ED Stone Renal W Colic, ED Strainer Urine, My [facility] Additional Instructions You have been treated in the Emergency Department today for a Kidney Stone ( Nephrolithiasis). You have been prescribed Flomax 0.4 mg to be taken ONCE daily. This medicine has been prescribed as it can help relax the smooth muscles of the urinary tract increasing transit time of the kidney stone. For pain control, you can use the following [id number] medicines (if >12 yo): - Regular strength (325mg/tab) Tylenol (acetaminophen) 2 tabs every 4-6 hours as needed. Do not exceed 10 tablets in a 24 hour period. Avoid taking more than 3000 mg of Tylenol per day. This includes any other sources of acetaminophen you may take on a regular basis. - Regular strength (200 mg/tab) Advil (ibuprofen) 3 tabs every 6-8 hours as needed. Do not exceed a dose of 2400 mg per day. You have been provided a strainer and specimen collection cup. You should strain your urine to collect any passed stones. Your stones can be placed into the specimen cup and taken to your Urologist for further evaluation. You have been provided the contact information for the on-call Urologist. You should contact the Urologist's office tomorrow to establish a follow-up appointment from today's Emergency Department visit. Return to the Emergency Department if your symptoms persist despite the treatment plan outlined above or if you develop the following symptoms: intractable pain, fever, chills, or large amounts of blood in your urine.
[2017-11-18] MEDS ORDERED: KETOROLAC TROMETHAMINE 30 MG/ML VIAL IV STA (22:07)
[2017-11-18] MEDS ORDERED: TAMSULOSIN HCL 0.4 MG CAP PO ONE (22:15)
[2017-11-18] MEDS ORDERED: TAMS0.4C38 PO (22:31)
[2017-11-18 22:57] VITALS: BP 126/71; PULSE 76; O2SAT 98
== END 2017-11-18 22:58 | disposition home or self-care (01) ==
LOC: EDBD 19:10 → C.EDC 19:10
DX: N20.1 Calculus of ureter (principal); R10.9 Unspecified abdominal pain; I48.2 Chronic atrial fibrillation; F31.9 Bipolar disorder, unspecified; E78.5 Hyperlipidemia, unspecified; G40.909 Epilepsy, unspecified, not intractable, without status epilepticus; M79.7 Fibromyalgia; I10 Essential (primary) hypertension; E03.9 Hypothyroidism, unspecified; G47.33 Obstructive sleep apnea (adult) (pediatric); K21.9 Gastro-esophageal reflux disease without esophagitis; Z79.899 Other long term (current) drug therapy; Z99.81 Dependence on supplemental oxygen; Z88.8 Allergy status to other drugs, medicaments and biological substances

== ENCOUNTER 2018-12-20 16:26 | Inpatient (IN) ==
[2018-12-20] MEDS ORDERED: dilTIAZem HCl 5 MG/ML 5 ML VIAL IV STA (16:36)
[2018-12-20] MEDS ORDERED: MAGNESIUM SULFATE / D5W 1 GM/100 ML BAG IV ONE (16:36)
[2018-12-20 16:44] LABS: Basophils # (auto) 0.04 K/uL (0-0.2); Basophils % (auto) 0.5 %; Eosinophils # (auto) 0.35 K/uL (0-0.5); Eosinophils % (auto) 4.1 %; Hematocrit (blood only) 41.4 % (37-47); Hemoglobin 14.5 g/dL (12.0-16.0); Immature Granulocytes # (auto) 0.01 K/uL (0.00-0.02); Immature Granulocytes % (auto) 0.1 %; Lymphocytes % (auto) 28.3 %; Mean Corpuscular Volume 88.3 fL (80-100); Mean Platelet Volume 10.1 fL (7.4-10.4); Monocytes # (auto) 0.73 K/uL (0.11-0.59); Monocytes % (auto) 8.6 %; Neutrophils # (auto) 4.95 K/uL (1.4-6.5); Neutrophils % (auto) 58.4 %; Platelet Count 198 K/uL (130-400); RDW Coefficient of Variation 14.5 % (11.5-14.5); RDW Standard Deviation 46.8 fL (36.4-46.3); Red Blood Count 4.69 M/uL (4.2-5.4); White Blood Count 8.48 K/uL (4.8-10.8)
[2018-12-20] MEDS ORDERED: SODIUM CHLORIDE 0.9% 500 ML IV SCH (16:45)
[2018-12-20 16:56] LABS: INR 1.1 (0.9-1.1); Partial Thromboplastin Ratio 1.1; Partial Thromboplastin Time 30.1 Seconds (21.0-31.0); Prothrombin Time 11.3 Seconds (9.0-12.0)
--- NOTE | 2018-12-20 17:03 | XRay Report ---
XR chest 1V portable CLINICAL HISTORY: 53 years-old Female presenting with weakness, subjectively not feeling well. TECHNIQUE: Portable upright AP view of the chest was obtained. COMPARISON: 04/26/2017. FINDINGS: Cardiac silhouette top normal in size. No focal opacity. No large effusion or pneumothorax. Osseous s tructures normal. Upper abdomen normal. IMPRESSION: 1. No acute cardiopulmonary disease. Electronically signed by: Baldemar Friend M.D. 12/20/2018 5:01 PM
[2018-12-20 17:14] LABS: Albumin Level 3.3 gm/dl (3.4-5.0); BUN Creatinine Ratio 12.1 (10-20); Calcium 9.9 mg/dl (8.5-10.1); Creatinine Clr Calc Pharmacy 121.7 ml/min; Est GFR (Non-African American) 89.7; Potassium 3.7 mmol/L (3.5-5.1)
[2018-12-20 17:27] LABS: Albumin Globulin Ratio 0.6 (0.9-2); Bilirubin,Total 0.2 mg/dl (0.2-1); Globulin 5.1 gm/dl (2.5-4.0); Total Protein 8.4 gm/dl (6.4-8.2); Troponin I 0.066 ng/ml (0-0.045)
[2018-12-20 17:39] LABS: T4 Free Thyroxine 1.39 ng/dl (0.8-1.6)
[2018-12-20] MEDS ORDERED: dilTIAZem HCl 125 MG in DEXTROSE 5% 100 ML IV SCH (18:00)
--- NOTE | 2018-12-20 18:04 | Emergency Department Note ---
Entered by Mary Resendiz acting as a scribe for Rusty Harden DO History of Present Illness General Chief complaint: Chest Pain Stated complaint: CHEST TIGHTNESS, WEAKNESS Time Seen by Provider: 12/20/18 16:32 Source: patient History of Present Illness Provider complaint: chest pain Onset (ago): hour(s) (this morning) Location: chest Pain Consistency: + other (persistent) Maximum Pain Intensity: 5 Associated symptoms: + headaches and + shortness of breath; no nausea/vomiting Treatments prior to arrival: other (blood thinner) The patient is a 53 year old female who presents to the Emergency Room with complaints of persistent chest pain. The patient states that she woke up this morning with atrial 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. She reports that she has has had a previous episode of atrial 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 a few years prior where she was shocked for it. She states that she is experiencing shortness of breath, headache, but denies vomiting and nausea. The patient states that she took blood thinners at 400 this morning. She also reports that she is a non smoker and is eating and drinking normally. She states that she has no history of heat failure problems. Home Medications Home Medications Medication Instructions Recorded Confirmed Type Breo Ellipta 1 inh INHALATION QAM 05/31/18 12/20/18 History Eliquis 5 mg PO BID 05/31/18 12/20/18 History albuterol sulfate [ProAir HFA] 2 puff INHALATION Q4 PRN 05/31/18 12/20/18 History aripiprazole 30 mg PO HS 05/31/18 12/20/18 History biotin 5,000 mcg SUBLINGUAL QAM 05/31/18 12/20/18 History dicyclomine 10 mg PO TID 05/31/18 12/20/18 History escitalopram oxalate 20 mg PO QAM 05/31/18 12/20/18 History fluticasone propionate [Flonase 2 spray INTRANASAL QAM 05/31/18 12/20/18 History Allergy Relief] furosemide 20 mg PO QAM 05/31/18 12/20/18 History lamotrigine [Lamictal] 200 mg PO BID 05/31/18 12/20/18 History levothyroxine 50 mcg PO QAM 05/31/18 12/20/18 History levothyroxine 200 mcg PO DAILY 05/31/18 12/20/18 History melatonin 6 mg PO HS 05/31/18 12/20/18 History multivitamin 1 tab PO QAM 05/31/18 12/20/18 History potassium chloride 10 meq PO QAM 05/31/18 12/20/18 History sotalol 80 mg PO BID 05/31/18 12/20/18 History tizanidine 6 mg PO TID 05/31/18 12/20/18 History buspirone 30 mg PO BID 11/30/18 12/20/18 History magnesium oxide 400 mg PO QAM 11/30/18 12/20/18 History omeprazole 20 mg PO DAILY 11/30/18 12/20/18 History quetiapine [Seroquel] 300 mg PO HS 11/30/18 12/20/18 History amoxicillin-pot clavulanate 1 tab PO BID 12/20/18 12/20/18 History Allergies Allergy/AdvReac Type Severity Reaction Status Date / Time latex Allergy Mild Rash Verified 12/20/18 18:12 Hydantoins Allergy Unknown Hives Verified 12/20/18 18:12 phenytoin Allergy Unknown Nausea Verified 12/20/18 18:12 thioridazine AdvReac Severe SEIZURES Verified 12/20/18 18:12 Ethanol AdvReac Severe SEIZURES Uncoded 12/20/18 18:12 Past Med/Surg History Medical History Asthma inhalers daily/prn 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 on eliquis Bipolar 1 disorder Chronic back pain Degenerative disc disease Depression Fibromyalgia GERD (gastroesophageal reflux disease) Hypertension Hypothyroidism Migraine On anticoagulant therapy On home oxygen therapy 2L n/c at night Osteoarthritis Schizoaffective disorder Seizure hx 2 seizures in --on lamictal Sleep apnea Spinal stenosis Surgical History History of carpal tunnel release left History of cholecystectomy History of colonoscopy History of endoscopic sinus surgery History of tonsillectomy and adenoidectomy History of tooth extraction all upper teeth removed History of total abdominal hysterectomy and bilateral salpingo-oophorectomy S/P foot surgery, left x2 Status post lumbar spine surgery for decompression of spinal cord rods in place Family History Father Family history of diabetes mellitus Coronary heart disease Mother Lung cancer Sister Alive and well Brother Alive and well Social History Preferred Language: Ukrainian Communication Ability: Effective Haz Tech Required: No Beliefs That Will Affect Care: None marital status: Current Living Situation: Alone current occupational status: disabled Other Information That Helps Us Care for You: No Feels Safe at Home: Yes Smoking Status: Former smoker Tobacco Type: cigarettes Smoking End Date: A long time ago Second Hand Exposure: No Tobacco Cessation Education Requested by Bridgett ent: No Hx Alcohol Use: No Hx Substance Use: No Review of Systems See HPI for pertinent positives & negatives. and A total of 10 systems reviewed and were otherwise negative Physical Exam Vital Signs Vital Signs - 24 hr 12/20/18 16:48 12/20/18 16:53 12/20/18 16:54 Temperature 36.9 C Temperature Source Oral Sepsis Recent Fever Within 48 Hours No Sepsis Action Taken by Nursing No Action Required Pulse Rate 128 H 126 H 128 H Pulse Rate [Right Finger] Pulse Rhythm Regular Pulse Rhythm [Right Finger] Pulse Strength Normal Respiratory Rate 13 20 14 Respiratory Effort / Characteristics Non-Labored Respiratory Depth Normal Respiratory Pattern Regular Blood Pressure 159/111 H 159/111 H Blood Pressure [Left Arm] Blood Pressure Mean 127 127 Blood Pressure Mean [Left Arm] Blood Pressure Position Lying Pulse Oximetry 96 98 97 Oxygen Delivery Method Room Air 12/20/18 17:00 12/20/18 17:15 12/20/18 17:30 Temperature Temperature Source Sepsis Recent Fever Within 48 Hours Sepsis Action Taken by Nursing Pulse Rate 131 H 130 H 134 H Pulse Rate [Right Finger] Pulse Rhythm Pulse Rhythm [Right Finger] Pulse Strength Respiratory Rate 22 18 18 Respiratory Effort / Characteristics Respiratory Depth Respiratory Pattern Blood Pressure 171/123 H Blood Pressure [Left Arm] Blood Pressure Mean 139 Blood Pressure Mean [Left Arm] Blood Pressure Position Pulse Oximetry 96 95 Oxygen Delivery Method 12/20/18 18:30 Temperature Temperature Source Sepsis Recent Fever Within 48 Hours Sepsis Action Taken by Nursing Pulse Rate Pulse Rate [Right Finger] 132 H Pulse Rhythm Pulse Rhythm [Right Finger] Irregular Pulse Strength Respiratory Rate 23 Respiratory Effort / Characteristics Non-Labored Respiratory Depth Normal Respiratory Pattern Blood Pressure Blood Pressure [Left Arm] 188/130 H Blood Pressure Mean Blood Pressure Mean [Left Arm] 149 Blood Pressure Position Pulse Oximetry 96 Oxygen Delivery Method GENERAL: Patient is awake, alert, and in no acute distress.Patient is resting comfortably and showing no signs of anxiety EYES: The conjunctivae are clear. The pupils are round and reactive. EARS, NOSE, MOUTH AND THROAT: The nose is without any evidence of any deformity. Mucous membranes are moist.Tongue is midline NECK: The neck is nontender and supple. RESPIRATORY: Normal respiratory effort is noted. There is no evidence of wheezing rhonchi or rales to auscultation. CARDIOVASCULAR: Tachycardic rate and regular rhythm noted. There no murmurs rubs or gallops normal S1 normal S2 GASTROINTESTINAL: The abdomen is soft. Bowel sounds are present in all quadrants. Abdomen is nontender. MUSCULOSKELETAL/EXTREMITIES: Pedal edema bilateral. There is no evidence of gross deformity. Full range of motion is noted in the hips and shoulders. SKIN: There is no obvious evidence of any rash. There are no petechiae, pallor or cyanosis noted. NEUROLOGIC: Patient is awake alert and oriented x3. Course 1632:The patient was evaluated in room A12B, and a complete history and physical examination were performed. 1801: I discussed the patient's case with Ashely Mills PA-C who accepted the patient for further evaluation. Administered Medications Acetaminophen (Tylenol) 650 mg PO Q4H PRN PRN Reason: Pain or Fever Stop: 01/19/19 20:03 Last Admin: 12/21/18 05:28 Dose: 650 mg Documented by: [id number] Admin: 12/20/18 21:02 Dose: 650 mg Documented by: [id number] Amoxicillin/Clavulanate Potassium (Augmentin 875mg) 1 tab PO BID COUNTS INCLUDE 234 BEDS AT THE [facility] Stop: 12/27/18 20:59 Last Admin: 12/20/18 21:03 Dose: 1 tab Documented by: [id number] Apixaban (Eliquis) 5 mg PO BID COUNTS INCLUDE 234 BEDS AT THE [facility] Stop: 01/19/19 20:59 Last Admin: 12/20/18 21:03 Dose: 5 mg Documented by: [id number] Buspirone HCl (Buspar) 30 mg PO BID COUNTS INCLUDE 234 BEDS AT THE [facility] Stop: 01/19/19 20:59 Last Admin: 12/20/18 21:03 Dose: 30 mg Documented by: [id number] Dicyclomine HCl (Bentyl) 10 mg PO TID COUNTS INCLUDE 234 BEDS AT THE [facility] Stop: 01/19/19 20:59 Last Admin: 12/20/18 21:03 Dose: 10 mg Documented by: [id number] Diltiazem HCl 125 mg/ Dextrose 125 mls @ 15 mls/hr IV .Q8H20M COUNTS INCLUDE 234 BEDS AT THE [facility]; Protocol Stop: 01/19/19 20:03 Last Titration: 12/21/18 07:09 Dose: 15 mg/hr, 15 mls/hr Documented by: [id number] Cosigned by: [id number] Titration: 12/21/18 04:35 Dose: 15 mg/hr, 15 mls/hr Documented by: [id number] Admin: 12/21/18 03:23 Dose: 10 mg/hr, 10 mls/hr Documented by: [id number] Cosigned by: [id number] Titration: 12/21/18 03:23 Dose: 15 mg/hr, 15 mls/hr Documented by: [id number] Cosigned by: [id number] Admin: 12/20/18 20:05 Dose: 15 mg/hr, 15 mls/hr Documented by: [id number] Cosigned by: [id number] Lorazepam (Ativan) 0.5 mg in 1 mls @ 1 mls/min IV Q8H PRN PRN Reason: Anxiety Stop: 01/19/19 22:06 Last Admin: 12/20/18 22:31 Dose: 1 mls/min Documented by: [id number] Lamotrigine (Lamictal) 200 mg PO BID COUNTS INCLUDE 234 BEDS AT THE [facility] Stop: 01/19/19 20:59 Last Admin: 12/20/18 21:03 Dose: 200 mg Documented by: [id number] [facility] Stop: 01/20/19 06:29 Last Admin: 12/21/18 05:28 Dose: 50 mcg Documented by: [id number] Levothyroxine Sodium (Synthroid) 200 mcg PO DAILYBB COUNTS INCLUDE 234 BEDS AT THE [facility] Stop: 01/20/19 06:29 Last Admin: 12/21/18 05:28 Dose: 200 mcg Documented by: [id number] Miscellaneous (Order Awaiting Action) 1 ea N/A QS COUNTS INCLUDE 234 BEDS AT THE [facility] Stop: 01/19/19 20:44 Last Admin: 12/20/18 23:45 Dose: Not Given Documented by: [id number] Admin: 12/20/18 20:47 Dose: Not Given Documented by: [id number] Nitroglycerin (Nitro-Bid 2%) 0.5 inch EXT Q6H RAVI Stop: 01/20/19 02:59 Last Admin: 12/21/18 03:23 Dose: 0.5 inch Documented by: [id number] Ondansetron HCl (Zofran) 4 mg IV Q6H PRN PRN Reason: Nausea Stop: 01/19/19 20:03 Last Admin: 12/20/18 21:02 Dose: 4 mg Documented by: [id number] Quetiapine Fumarate (Seroquel) 300 mg PO HS RAVI Stop: 01/19/19 20:59 Last Admin: 12/20/18 21:03 Dose: 300 mg Documented by: [id number] Sotalol HCl (Betapace) 80 mg PO BID RAVI Stop: 01/19/19 20:59 Last Admin: 12/20/18 21:03 Dose: 80 mg Documented by: [id number] Tizanidine HCl (Zanaflex) 6 mg PO TID RAVI Stop: 01/19/19 20:59 Last Admin: 12/20/18 21:03 Dose: 6 mg Documented by: [id number] Discontinued Medications Clonidine HCl (Catapres) 0.1 mg PO NOW ONE Stop: 12/20/18 18:36 Last Admin: 12/20/18 18:43 Dose: 0.1 mg Documented by: [id number] Diltiazem HCl (Cardizem) 20 mg IV NOW STA Stop: 12/20/18 16:37 Last Admin: 12/20/18 16:42 Dose: 20 mg Documented by: [id number] Cosigned by: [id number] Hydralazine HCl (Hydralazine Hcl) Confirm Administered Dose 20 mg .ROUTE .STK- MED ONE Stop: 12/20/18 19:02 Last Increment: 12/20/18 19:09 Dose: 10 mg Documented by: [id number] Hydralazine HCl (Hydralazine Hcl) 10 mg IV NOW STA Stop: 12/20/18 20:35 Last Admin: 12/20/18 20:47 Dose: Not Given Documented by: [id number] Sodium Chloride (Nss) 500 mls @ 999 mls/hr IV .Q31M RAVI Stop: 12/20/18 17:15 Last Infusion: 12/20/18 18:07 Dose: 0 mls/hr Documented by: [id number] Admin: 12/20/18 16:49 Dose: 999 mls/hr Documented by: [id number] Magnesium Sulfate/Dextrose (Magnesium Sulfate / D5w) 1 gm in 100 mls @ 100 mls/hr IV ONE ONE Stop: 12/20/18 17:35 Last Infusion: 12/20/18 18:07 Dose: 0 mls/hr Documented by: [id number] Admin: 12/20/18 16:41 Dose: 100 mls/hr Documented by: [id number] Diltiazem HCl 125 mg/ Dextrose 125 mls @ 5 mls/hr IV .Q24H RAVI; Protocol Stop: 01/19/19 17:59 Last Titration: 12/20/18 20:00 Dose: 0 mg/hr, 0 mls/hr Documented by: [id number] Admin: 12/20/18 18:18 Dose: 5 mg/hr, 5 mls/hr Documented by: [id number] Cosigned by: [id number] Nitroglycerin (Nitro-Bid 2%) 0.5 inch EXT ONE ONE Stop: 12/20/18 20:44 Last Admin: 12/20/18 21:02 Dose: 0.5 inch Documented by: [id number] Perflutren Lipid Microsphere (Definity) 1 ml IV ONCE ONE Stop: 12/21/18 07:53 Last Admin: 12/21/18 07:53 Dose: 1 ml Documented by: [id number] Medical Decision Making Differential Diagnosis Etiologies such as cardiac ischemia, aortic dissection, pulmonary embolism, p neumonia, pneumothorax, musculoskeletal, infections, pericarditis, myocarditis, esophageal rupture, gastrointestinal, as well as others were entertained. Medical Records Attestation: I reviewed the patient's medical records. Home Medications Current Medication List: was personally reviewed by me Laboratory Data Attestation: I reviewed the patient's lab results. Result diagrams: 12/21/18 04:01 12/21/18 04:01 Lab Results 12/20/18 12/20/18 12/20/18 Range/Units 16:34 16:34 16:34 WBC 8.48 (4.8-10.8) K/uL RBC 4.69 (4.2-5.4) M/uL Hgb 14.5 (12.0-16.0) g/dL Hct 41.4 (37-47) % MCV 88.3 (80-100) fL MCH 30.9 (25-34) pg MCHC 35.0 (32-36) g/dL RDW Std Deviation 46.8 H (36.4-46.3) fL RDW Coeff of Lor 14.5 (11.5-14.5) % Plt Count 198 (130-400) K/uL MPV 10.1 (7.4-10.4) fL Immature Gran % (Auto) 0.1 % Neut % (Auto) 58.4 % Lymph % (Auto) 28.3 % Monroe % (Auto) 8.6 % Eos % (Auto) 4.1 % Baso % (Auto) 0.5 % Immature Gran # (Auto) 0.01 (0.00-0.02) K/uL Neut # (Auto) 4.95 (1.4-6.5) K/uL Lymph # (Auto) 2.40 (1.2-3.4) K/uL Monroe # (Auto) 0.73 H (0.11-0.59) K/uL Eos # (Auto) 0.35 (0-0.5) K/uL Baso # (Auto) 0.04 (0-0.2) K/uL PT 11.3 (9.0-12.0) Seconds INR 1.1 (0.9-1.1) APTT 30.1 (21.0-31.0) Seconds PTT Ratio 1.1 Sodium 140 (136-145) mmol/L Potassium 3.7 (3.5-5.1) mmol/L Chloride 104 (98-107) mmol/L Carbon Dioxide 30 (21-32) mmol/L Anion Gap 6.0 (3-11) BUN 9 (7-18) mg/dl Creatinine 0.75 (0.6-1.2) mg/dl Est Cr Clr Drug Dosing 121.7 ml/min Est GFR ( Amer) 104.0 Est GFR (Non-Af Amer) 89.7 BUN/Creatinine Ratio 12.1 (10-20) Glucose 117 H (70-99) mg/dl Calcium 9.9 (8.5-10.1) mg/dl Magnesium 2.0 (1.8-2.4) mg/dl Total Bilirubin 0.2 (0.2-1) mg/dl AST 21 (15-37) U/L ALT 27 (12-78) U/L Alkaline Phosphatase 126 H (45-117) U/L Troponin I 0.066 H* (0-0.045) ng/ml Total Protein 8.4 H (6.4-8.2) gm/dl Albumin 3.3 L (3.4-5.0) gm/dl Globulin 5.1 H (2.5-4.0) gm/dl Albumin/Globulin Ratio 0.6 L (0.9-2) TSH 0.287 L (0.300-4.500) uIu/ml Free T4 1.39 (0.8-1.6) ng/dl Urine Color Urine Appearance (Clear) Urine pH (4.5-7.5) Ur Specific [place] (1.000-1.030) Urine Protein (Negative) Urine Glucose (UA) (Negative) Urine Ketones (Negative) Urine Blood (Negative) Urine Nitrite (Negative) Urine Bilirubin (Negative) Urine Urobilinogen (Negative) Ur Leukocyte Esterase (Negative) 12/20/18 Range/Units 17:31 WBC (4.8-10.8) K/uL RBC (4.2-5.4) M/uL Hgb (12.0-16.0) g/dL Hct (37-47) % MCV (80-100) fL MCH (25-34) pg MCHC (32-36) g/dL RDW Std Deviation (36.4-46.3) fL RDW Coeff of Lor (11.5-14.5) % Plt Count (130-400) K/uL MPV (7.4-10.4) fL Immature Gran % (Auto) % Neut % (Auto) % Lymph % (Auto) % Monroe % (Auto) % Eos % (Auto) % Baso % (Auto) % Immature Gran # (Auto) (0.00-0.02) K/uL Neut # (Auto) (1.4-6.5) K/uL Lymph # (Auto) (1.2-3.4) K/uL Monroe # (Auto) (0.11-0.59) K/uL Eos # (Auto) (0-0.5) K/uL Baso # (Auto) (0-0.2) K/uL PT (9.0-12.0) Seconds INR (0.9-1.1) APTT (21.0-31.0) Seconds PTT Ratio Sodium (136-145) mmol/L Potassium (3.5-5.1) mmol/L Chloride (98-107) mmol/L Carbon Dioxide (21-32) mmol/L Anion Gap (3-11) BUN (7-18) mg/dl Creatinine (0.6-1.2) mg/dl Est Cr Clr Drug Dosing ml/min Est GFR ( Amer) Est GFR (Non-Af Amer) BUN/Creatinine Ratio (10-20) Glucose (70-99) mg/dl Calcium (8.5-10.1) mg/dl Magnesium (1.8-2.4) mg/dl Total Bilirubin (0.2-1) mg/dl AST (15-37) U/L ALT (12-78) U/L Alkaline Phosphatase (45-117) U/L Troponin I (0-0.045) ng/ml Total Protein (6.4-8.2) gm/dl Albumin (3.4-5.0) gm/dl Globulin (2.5-4.0) gm/dl Albumin/Globulin Ratio (0.9-2) TSH (0.300-4.500) uIu/ml Free T4 (0.8-1.6) ng/dl Urine Color Yellow Urine Appearance Clear (Clear) Urine pH 8.0 H (4.5-7.5) Ur Specific [place] 1.010 (1.000-1.030) Urine Protein Negative (Negative) Urine Glucose (UA) Negative (Negative) Urine Ketones Negative (Negative) Urine Blood Negative (Negative) Urine Nitrite Negative (Negative) Urine Bilirubin Negative (Negative) Urine Urobilinogen Negative (Negative) Ur Leukocyte Esterase Negative (Negative) Imaging Data Radiologist's Impression: Radiology results as stated below per my review and the radiologist's interpretation: XR chest 1V portable CLINICAL HISTORY: 53 years-old Female presenting with weakness, subjectively not feeling well. TECHNIQUE: Portable upright AP view of the chest was obtained. COMPARISON: 04/26/2017. FINDINGS: Cardiac silhouette top normal in size. No focal opacity. No large effusion or pneumothorax. Osseous structures normal. Upper abdomen normal. IMPRESSION: 1. No acute cardiopulmonary disease. Electronically signed by: Baldemar Friend M.D. 12/20/2018 5:01 PM ECG Data Attestation: I personally reviewed and interpreted this ECG as follows: Indication: chest pain Rate (beats per minute): 128 Rhythm: atrial flutter Findings: + other (lateral and inferior ST segment abnormalities ); no PVC Comparison ECG Date: from (11/21/17) Change: the following changes noted (ST segment changes are new) Blood Pressure Blood Pressure Findings: Elevated blood pressure Blood Pressure Disposition: further management by hospitalist MDM Narrative The patient is a 53-year-old female who has a history of atrial 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 who presented to the emergency department for an evaluation of palpitations. The p atient was seen by her primary care physician and sent to the emergency department for rapid atrial 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 as well as atrial flutter. The patient had a very elevated blood pressure. She was treated with IV fluids IV magnesium and IV Cardizem. Her blood pressure remained elevated and her pulse rate did not improve. She was started on a Cardizem drip. I discussed the patient's laboratory and radiographic studies with her. She was reevaluated multiple times. I discussed her case with the on-call [facility] hospitalist group. They have agreed to evaluate the patient in the emergency department for further management and disposition. Impression & Plan 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 with RVR, Palpitations, Dyspnea on exertion, Elevated troponin Critical Care Time I have personally spent 60 minutes of critical care time in the direct management of this patient. This includes bedside care, interpretation of diagnostic studies, and testing, discussion with consultants, patient, and f amily members, and other required patient management activities. This 60 minutes is in excess of all separately billable procedures. Critical Care Time: Yes Total Critical Care Time: 60 Discharge Plan Visit Data *Final* Discharge Date/Time: 12/20/18 19:55 Chief Complaint: Chest Pain Stated Complaint: CHEST TIGHTNESS, WEAKNESS ED Provider: Rusty Harden Discharge Problem: 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 with RVR, Palpitations, Dyspnea on exertion, Elevated troponin Patient Disposition: Admitted As Inpatient Discharge Instructions Interventions: ED Discharge Assessment Last Done: 12/20/18 19:55 The scribe's documentation has been prepared under my direction and personally reviewed by me in its entirety. I confirm that the note above accurately reflects all work, treatment, procedures, and medical decision making performed by me.
[2018-12-20 18:05] LABS: Appearance Urine Clear (Clear); Bilirubin Urine Negative (Negative); Color Urine Yellow; Glucose Urine UA Negative (Negative); Ketones Urine Negative (Negative); Leukocyte Esterase Urine Negative (Negative); Nitrite Urine Negative (Negative); Protein Urine Negative (Negative); Urobilinogen Urine Negative (Negative)
[2018-12-20] MEDS ORDERED: cloNIDine HCl 0.1 MG TAB PO ONE (18:35)
[2018-12-20] MEDS ORDERED: HydrALAZINE HCL 20 MG/ML VIAL IV STA ×2 (18:59→20:34)
--- NOTE | 2018-12-20 18:59 | History & Physical Report ---
Date of Service December 20, 2018 Assessment & Plan (1) Atrial flutter with rapid ventricular response: (2) Hypertensive urgency: This is a 53-year-old female who has a significant past medical history of symptomatic paroxysmal atrial flutter x2 with initiation of sotalol in October 2016, chronic Eliquis anticoagulation, schizoaffective disorder, fibromyalgia, depression, seizure disorder, MAURO on 2 L at at bedtime, HTN, HLD, hypothyroidism who presents to [facility] secondary to feeling awful for 1 day. Patient was noted to be in atrial flutter with RVR heart rate sustained in the 130s while in ED. Also noted was ST wave depressions in V3 to V4 and inferiorly along with mild elevated troponin at 0.066 A 20 mg IV diltiazem bolus was administered without relief. She was then initiated on diltiazem drip She is anticoagulated with Eliquis Her CBC and CMP was relatively unremarkable. TSH was low at 0.287 but T4 WNL Urine is negative for infection Chest x-ray without acute cardiopulmonary abnormality Admit to telemetry Continue diltiazem drip and titrate accordingly Continue Betapace and Eliquis for anticoagulation Treat hypertensive urgency, patient was given clonidine 0.1 mg without effectiveness Order hydralazine 10MG IV - monitor bp and treat Obtain echocardiogram trend troponin and repeat ecg consult cardiology NPO after midnight per cardiology (3) URI (upper respiratory infection): Pt seen at pcp off for vertigo/URI sx dx with acute maxillary sinusitis Patient started on Augmentin 12/15 Will complete course in its entirety to be completed on 12/25 (4) Hypothyroidism: Continue levothyroxine 250 mcg daily TSH 0.287, T4 WNL (5) Schizoaffective disorder, depressive type: Mood stable Continue Abilify and Seroquel (6) Epilepsy: Last seizure in the Continual Lamictal No seizure activity noted (7) MAURO (obstructive sleep apnea): O2 2 L at bedtime (8) Depression: Continue escitalopram (9) GERD (gastroesophageal reflux disease): Continue PPI (10) DVT prophylaxis: Eliquis Disposition: DC to home when able Follow-up: PCP Dr. Salas upon discharge Patient was seen and examined in collaboration with Dr. Mendoza, please see addendum History of Present Illness Chief Complaint: Feeling awful for 1 day. Primary Care Provider: Brian Salas DO This is a 53-year-old female who has a significant past medical history of symptomatic paroxysmal atrial flutter x2 with initiation of sotalol in October 2016, chronic Eliquis anticoagulation, schizoaffective disorder, fibromyalgia, depression, seizure disorder, MAURO on 2 L at at bedtime, HTN, HLD, hypothyroidism who presents to [facility] secondary to feeling awful for 1 day. Family friend is at bedside. Patient states yesterday she was overall very tired and felt she slept a lot of the day. She was otherwise feeling fine until she woke up this morning overall, "feeling awful." She overall felt sweaty, hot, dizzy, substernal chest discomfort described as a "pressure,"dyspnea on exertion and nausea. She also elicits dull headache, frontal that started when she got to ED. Initially patient was seen by outpatient provider Luz Maria Rogers and was referred to ED secondary to A. antoine with RVR. She denies any recent illness but after further conversation does elicit that she was recently started on Augmentin on 12/15 secondary to upper respirato ry symptoms. She states that she takes her medications regularly. She has not taking anything [id number]. She does not smoke, drink alcohol or use illicit drugs. She does not notice any overt weight gain, increased edema, orthopnea or PND. She feels she overall has lost weight. She denies any fever, chills, sweats, cough, hemoptysis, emesis, abdominal pain, change in her bowel or urinary habits. Allergies Allergy/AdvReac Type Severity Reaction Status Date / Time latex Allergy Mild Rash Verified 12/20/18 18:12 Hydantoins Allergy Unknown Hives Verified 12/20/18 18:12 phenytoin Allergy Unknown Nausea Verified 12/20/18 18:12 thioridazine AdvReac Severe SEIZURES Verified 12/20/18 18:12 Ethanol AdvReac Severe SEIZURES Uncoded 12/20/18 18:12 Home Medications Home Medications Medication Instructions Recorded Confirmed Type Breo Ellipta 1 inh INHALATION QAM 05/31/18 12/20/18 History Eliquis 5 mg PO BID 05/31/18 12/20/18 History albuterol sulfate [ProAir HFA] 2 puff INHALATION Q4 PRN 05/31/18 12/20/18 History aripiprazole 30 mg PO HS 05/31/18 12/20/18 History biotin 5,000 mcg SUBLINGUAL QAM 05/31/18 12/20/18 History dicyclomine 10 mg PO TID 05/31/18 12/20/18 History escitalopram oxalate 20 mg PO QAM 05/31/18 12/20/18 History fluticasone propionate [Flonase 2 spray INTRANASAL QAM 05/31/18 12/20/18 History Allergy Relief] furosemide 20 mg PO QAM 05/31/18 12/20/18 History lamotrigine [Lamictal] 200 mg PO BID 05/31/18 12/20/18 History levothyroxine 50 mcg PO QAM 05/31/18 12/20/18 History levothyroxine 200 mcg PO DAILY 05/31/18 12/20/18 History melatonin 6 mg PO HS 05/31/18 12/20/18 History multivitamin 1 tab PO QAM 05/31/18 12/20/18 History potassium chloride 10 meq PO QAM 05/31/18 12/20/18 History sotalol 80 mg PO BID 05/31/18 12/20/18 History tizanidine 6 mg PO TID 05/31/18 12/20/18 History buspirone 30 mg PO BID 11/30/18 12/20/18 History magnesium oxide 400 mg PO QAM 11/30/18 12/20/18 History omeprazole 20 mg PO DAILY 11/30/18 12/20/18 History quetiapine [Seroquel] 300 mg PO HS 11/30/18 12/20/18 History amoxicillin-pot clavulanate 1 tab PO BID 12/20/18 12/20/18 History Past Med/Surg History Medical History Asthma inhalers daily/prn 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 on eliquis Bipolar 1 disorder Chronic back pain Degenerative disc disease Depression Fibromyalgia GERD (gastroesophageal reflux disease) Hypertension Hypothyroidism Migraine On anticoagulant therapy On home oxygen therapy 2L n/c at night Osteoarthritis Schizoaffective disorder Seizure hx 2 seizures in --on lamictal Sleep apnea Spinal stenosis Surgical History History of carpal tunnel release left History of cholecystectomy History of colonoscopy History of endoscopic sinus surgery History of tonsillectomy and adenoidectomy History of tooth extraction all upper teeth removed History of total abdominal hysterectomy and bilateral salpingo-oophorectomy S/P foot surgery, left x2 Status post lumbar spine surgery for decompression of spinal cord rods in place Family History Father Family history of diabetes mellitus Coronary heart disease Mother Lung cancer Sister Alive and well Brother Alive and well Social History Preferred Language: Salvadorean Communication Ability: Effective 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 Physical Exam Physical Exam: Gen: WD/WN, morbidly obese, female, sitting up in bed, apprehensive but pleasant, conversing easily Head: Normocephalic, Atraumatic Eyes: Sclera normal, no conjunctival injection, PERRLA, EOMI ENT: Gross hearing intact, normal pharynx, mucous membranes moist Neck: supple, no adenopathy, No JVD, no bruit, Resp: Clear to auscultation b/l, no wheeze, rales, rhonchi. Normal insp/exp effort, no accessory muscle use CV: Tachycardic rate, but regular rhythm, no murmur, rub, gallop, or ectopy Abd: Obese abdomen +BS x 4, soft, nontender, nondistended Musculoskeletal: moves extremities active rom x 4, strength intact, good home child care provider strength Extremities: No edema bilaterally Skin: warm, moist, no rash, negative turgor, cap refill < 2sec Neuro: Alert and oriented x 3, speech normal, flat mood/affect, cran nerve 2-12 intact grossly : deferred Results & Data Vital Signs (Past 12 Hours) Vital Signs Temp Pulse Pulse Resp BP BP Pulse Ox 12/20/18 18:30 132 H 23 188/130 H 96 12/20/18 17:30 134 H 18 171/123 H 95 12/20/18 17:15 130 H 18 12/20/18 17:00 131 H 22 96 12/20/18 16:54 128 H 14 97 12/20/18 16:53 36.9 C 126 H 20 159/111 H 98 12/20/18 16:48 128 H 13 159/111 H 96 Laboratory Results Short CBC 12/20/18 Range/Units 16:34 WBC 8.48 (4.8-10.8) K/uL Hgb 14.5 (12.0-16.0) g/dL Hct 41.4 (37-47) % Plt Count 198 (130-400) K/uL BMP 12/20/18 16:34 Sodium 140 Potassium 3.7 Chloride 104 Carbon Dioxide 30 BUN 9 Creatinine 0.75 Glucose 117 H Calcium 9.9 Cardiac Enzymes 12/20/18 Range/Units 16:34 Troponin I 0.066 H* (0-0.045) ng/ml Liver Function 12/20/18 Range/Units 16:34 Total Bilirubin 0.2 (0.2-1) mg/dl AST 21 (15-37) U/L ALT 27 (12-78) U/L Alkaline Phosphatase 126 H (45-117) U/L Albumin 3.3 L (3.4-5.0) gm/dl Urine 12/20/18 Range/Units 17:31 Urine Color Yellow Urine Appearance Clear (Clear) Urine pH 8.0 H (4.5-7.5) Ur Specific [place] 1.010 (1.000-1.030) Urine Protein Negative (Negative) Urine Glucose (UA) Negative (Negative) Diagnostic Findings CXR: IMPRESSION: 1. No acute cardiopulmonary disease. Medications Administered Diltiazem HCl 125 mg/ Dextrose 125 mls @ 5 mls/hr IV .Q24H [facility]; Protocol Stop: 01/19/19 17:59 Last Admin: 12/20/18 18:18 Dose: 5 mg/hr, 5 mls/hr Documented by: [id number] Cosigned by: [id number] Discontinued Medications Clonidine HCl (Catapres) 0.1 mg PO NOW ONE Stop: 12/20/18 18:36 Last Admin: 12/20/18 18:43 Dose: 0.1 mg Documented by: [id number] Diltiazem HCl (Cardizem) 20 mg IV NOW STA Stop: 12/20/18 16:37 Last Admin: 12/20/18 16:42 Dose: 20 mg Documented by: [id number] Cosigned by: [id number] Sodium Chloride (Nss) 500 mls @ 999 mls/hr IV .Q31M [facility] Stop: 12/20/18 17:15 Last Infusion: 12/20/18 18:07 Dose: 0 mls/hr Documented by: [id number] Admin: 12/20/18 16:49 Dose: 999 mls/hr Documented by: [id number] Magnesium Sulfate/Dextrose (Magnesium Sulfate / D5w) 1 gm in 100 mls @ 100 mls/hr IV ONE ONE Stop: 12/20/18 17:35 Last Infusion: 12/20/18 18:07 Dose: 0 mls/hr Documented by: [id number] Admin: 12/20/18 16:41 Dose: 100 mls/hr Documented by: [id number] ECG Rate (beats per minute): 131 Rhythm: atrial flutter Findings: + ST depression (v3-4 and inferiorly) Code Status & VTE Plan Code Status Full Code VTE Prophylaxis Plan VTE Prophylaxis will be ordered: Yes Supervising Physician Co-Signing Physician Notes I have seen and examined the patient and have discussed the case with the provider above. I agree with the assessment and plan as stated. 53 yo F in mild distress this evening. Per outpatient notes she has felt this way for several days with symptoms including dizziness, feeling faint and URI symptoms. She is reporting feeling her chest fluttering and states she had some episodes of diaphoresis and shortness of breath this morning. She doesn't feel much better at this point. She is anticoagulated on Eliquis so PE was considered less likely-she is also not in respiratory distress or hypoxic. She is being treated for a URI with Augmentin for the past few days, but there is no other clear precipitant for this issue. Her BP in the ER was 210 systolic at one point, and she was given hydralazine 10mg IV x 1 dose with an improvement in her pressure to 177/108. Physical exam revealed an obese female in mild distress, no JVD, clear lungs to auscultation without tachypnea, tachy rate without murmurs, soft, nondistended abdomen and no peripheral edema. Repeat examination after she was on the floor revealed persistent symptoms of feeling poorly, and BP 177/132. Diltiazem had been running at 15mg/hr for 30 minutes and HR was 130. With a side effect of tachycardia, additional hydralazine was not at tempted and nitro paste was administered. Suspect some malaise is 2/2 the elevated BP, however, she was feeling poorly in the office this week when her BP was in the normal range. Trial of nitro. Cont sotalol and IV diltiazem. Cont Eliquis. Antiemetics PRN. Appreciate Cardiology recs. DO Reji
[2018-12-20] MEDS ORDERED: HydrALAZINE HCL 20 MG/ML VIAL ONE (19:01)
[2018-12-20] MEDS ORDERED: NITROGLYCERIN SL 0.4 MG/TAB TAB SL PRN (20:04)
[2018-12-20] MEDS ORDERED: ALUMINUM/MAGNESIUM SUSP 30 ML UDC PO PRN (20:04)
[2018-12-20] MEDS ORDERED: ONDANSETRON INJ 2 MG/ML 2 ML VIAL IV PRN (20:04)
[2018-12-20] MEDS ORDERED: MAGNESIUM HYDROXIDE SUSP 30 ML UDC PO PRN (20:04)
[2018-12-20] MEDS ORDERED: POLYETHYLENE (MIRALAX) 17 GM PACK PO PRN (20:04)
[2018-12-20] MEDS: dilTIAZem HCl 125 MG in DEXTROSE 5% 100 ML IV SCH (20:05)
[2018-12-20] MEDS ORDERED: NITROGLYCERIN 2% OINTMENT 30GM TUBE EXT ONE (20:43)
[2018-12-20] MEDS ORDERED: NON-FORMULARY MEDICATION (Melatonin 6 MG) PO SCH (21:00)
[2018-12-20] MEDS: ACETAMINOPHEN 325 MG TAB PO PRN (21:02)
[2018-12-20] MEDS: DICYCLOMINE HCL 10 MG CAP PO SCH (21:03)
[2018-12-20] MEDS: APIXABAN 5 MG TABLET PO SCH (21:03)
[2018-12-20] MEDS: BusPIRone 15 MG TAB PO SCH (21:03)
[2018-12-20] MEDS: SOTALOL HCL 80 MG TAB PO SCH (21:03)
[2018-12-20] MEDS: lamoTRIgine 100 MG TAB PO SCH (21:03)
[2018-12-20] MEDS: AMOXICILLIN/CLAVULANATE 875 MG TAB PO SCH (21:03)
[2018-12-20] MEDS: TIZANIDINE HCL 4 MG TABLET PO SCH (21:03)
[2018-12-20] MEDS: QUETIAPINE FUMARATE 300 MG TABLET PO SCH (21:03)
[2018-12-20] MEDS: LORazepam 0.5 MG/1 ML VIAL IV PRN (22:31)
[2018-12-21] MEDS: dilTIAZem HCl 125 MG in DEXTROSE 5% 100 ML IV SCH (03:23)
[2018-12-21] MEDS: NITROGLYCERIN 2% OINTMENT 30GM TUBE EXT SCH ×2 (03:23→13:13)
[2018-12-21 04:11] LABS: Hematocrit (blood only) 39.9 % (37-47); Mean Corpuscular Hgb Conc 35.1 g/dL (32-36); Mean Corpuscular Volume 87.9 fL (80-100); Mean Platelet Volume 10.2 fL (7.4-10.4); Platelet Count 211 K/uL (130-400); RDW Coefficient of Variation 14.5 % (11.5-14.5); RDW Standard Deviation 46.9 fL (36.4-46.3); Red Blood Count 4.54 M/uL (4.2-5.4); White Blood Count 8.08 K/uL (4.8-10.8)
[2018-12-21 04:28] LABS: BUN Creatinine Ratio 14.4 (10-20); Calcium 9.1 mg/dl (8.5-10.1); Creatinine Clr Calc Pharmacy 132.3 ml/min; Est GFR (African American) 113.6
[2018-12-21 04:34] LABS: Troponin I 0.094 ng/ml (0-0.045)
[2018-12-21] MEDS: LEVOTHYROXINE SODIUM 200 MCG TABLET PO SCH (05:28)
[2018-12-21] MEDS: ACETAMINOPHEN 325 MG TAB PO PRN ×2 (05:28→13:56)
[2018-12-21] MEDS: LEVOTHYROXINE SODIUM 50 MCG TABLET PO SCH (05:28)
[2018-12-21] MEDS ORDERED: PERFLUTREN LIPID MICROSPHERE (DEFINITY) IV ONE (07:52)
[2018-12-21] MEDS ORDERED: NON-FORMULARY MEDICATION (Biotin 5,000 MCG) SL SCH (09:00)
[2018-12-21] MEDS: LORazepam 0.5 MG/1 ML VIAL IV PRN (09:30)
[2018-12-21] MEDS ORDERED: MIDAZOLAM HCL 5 MG/ML 1 ML VIAL ONE (09:46)
[2018-12-21] MEDS ORDERED: fentaNYL citrate 100 MCG/2 ML VIAL ONE (09:48)
--- NOTE | 2018-12-21 10:05 | History & Physical Bridge Note ---
Date of Service December 21, 2018 History & Physical Bridge Note I have examined the patient, reviewed the History & Physical and in the interval since the performance of the History & Physical I have noted the following changes of clinical significance: no changes noted
--- NOTE | 2018-12-21 10:06 | Pre Anesthesia Assessment ---
Date of Service December 21, 2018 Pre Sedation Assessment Vital Signs Temp Pulse Pulse Pulse Resp BP BP 12/21/18 06:45 137 H 12/21/18 05:30 133 H 12/21/18 04:30 135 H 12/21/18 03:20 37 C 125 H 18 134/83 12/21/18 01:15 88 12/20/18 23:40 36.3 C L 139 H 22 125/69 12/20/18 23:25 139 H 12/20/18 21:45 139 H 157/95 H 12/20/18 21:23 12/20/18 20:05 36.5 C 129 H 20 177/132 H 12/20/18 19:55 138 H 18 173/108 H 12/20/18 19:37 139 H 19 173/108 H 12/20/18 18:30 132 H 23 188/130 H 12/20/18 17:30 134 H 18 171/123 H 12/20/18 17:15 130 H 18 12/20/18 17:00 131 H 22 12/20/18 16:54 128 H 14 12/20/18 16:53 36.9 C 126 H 20 159/111 H 12/20/18 16:48 128 H 13 159/111 H Pulse Ox Pulse Ox 12/21/18 06:45 12/21/18 05:30 12/21/18 04:30 12/21/18 03:20 98 12/21/18 01:15 12/20/18 23:40 95 12/20/18 23:25 12/20/18 21:45 12/20/18 21:23 97 12/20/18 20:05 97 12/20/18 19:55 98 12/20/18 19:37 98 12/20/18 18:30 96 12/20/18 17:30 95 12/20/18 17:15 12/20/18 17:00 96 12/20/18 16:54 97 12/20/18 16:53 98 12/20/18 16:48 96 Pre-Sedation Airway Assessment Smoking Status: Former smoker Notes The planned sedation has been discussed with the patient. Informed Consent was obtained. I have identified the patient, determined the appropriateness of sedation and have assessed the patient immediately prior to the procedure. All medicine(s) and interventions are by my order.
--- NOTE | 2018-12-21 10:38 | Post Anesthesia Assessment ---
Date of Service December 21, 2018 Post Sedation Assessment Vital Signs Temp Pulse Pulse Pulse Resp BP BP 12/21/18 08:00 137 H 12/21/18 06:45 137 H 12/21/18 05:30 133 H 12/21/18 04:30 135 H 12/21/18 03:20 37 C 125 H 18 134/83 12/21/18 01:15 88 12/20/18 23:40 36.3 C L 139 H 22 125/69 12/20/18 23:25 139 H 12/20/18 21:45 139 H 157/95 H 12/20/18 21:23 12/20/18 20:05 36.5 C 129 H 20 177/132 H 12/20/18 19:55 138 H 18 173/108 H 12/20/18 19:37 139 H 19 173/108 H 12/20/18 18:30 132 H 23 188/130 H 12/20/18 17:30 134 H 18 171/123 H 12/20/18 17:15 130 H 18 12/20/18 17:00 131 H 22 12/20/18 16:54 128 H 14 12/20/18 16:53 36.9 C 126 H 20 159/111 H 12/20/18 16:48 128 H 13 159/111 H Pulse Ox Pulse Ox 12/21/18 08:00 12/21/18 06:45 12/21/18 05:30 12/21/18 04:30 12/21/18 03:20 98 12/21/18 01:15 12/20/18 23:40 95 12/20/18 23:25 12/20/18 21:45 12/20/18 21:23 97 12/20/18 20:05 97 12/20/18 19:55 98 12/20/18 19:37 98 12/20/18 18:30 96 12/20/18 17:30 95 12/20/18 17:15 12/20/18 17:00 96 12/20/18 16:54 97 12/20/18 16:53 98 12/20/18 16:48 96 Post Sedation Plan On clinical assessment, the patient appears to have tolerated the sedation without complications. Patient is recovering as anticipated. Patient will continue to be monitored by nursing and may be discharged when sedation discharge criteria are met per below protocol. Upon Completions of procedure and additional 15 minutes continue every 5 minute vital signs and the P.A.R. score; then discharge to a Phase I or Fast Track to Phase II per the following guidelines: * Discharge Patient to appropriate Phase II area if PAR is 8 or greater or return to pre- procedure baseline. The post - procedure orders will be as directed. * If PAR score is less than 8 or not return to pre-procedure baseline then patient will follow Phase I monitoring till PAR is reached for Phase II. The Phase I may be done in procedure room or may call to secure a Phase I area. * If naloxone or flumazenil are used for reversal, hold in Phase I for continued monitoring from when last reversal dose was given for a minimum of 60 minutes or longer pending the nurse and/or physician discretion of patient condition before discharge to Phase II. Please call the Sedation Physician to re-evaluate and complete post-note for discharge to Phase II area. Do NOT discharge from procedure sedation or Phase 1 until post- sedation evaluation note is complete by procedure /sedation MD Sedation Discharge Instructions to be given to the patient at discharge to home.
--- NOTE | 2018-12-21 10:38 | Operative Report ---
Post Operative Report Pre & Post Diagnosis atrial flutter with RVR Procedure DC cardioversion Surgeon Anderson Amado, DO Career Representative none Estimated Blood Loss 0 Findings Consistent with Post-Op Diagnosis Specimens none Description of Procedure DC cardioversion I attest to the content of the Intraoperative Record and any orders documented therein. Any exceptions are noted below. Informed consent obtained pt prepped in room 221 adequate moderate sedation achieved with a total of Versed 2mg and Fentanyl 50mcg 360J of synchronized energy delivered with successful cardioversion to sinus rhythm pt tolerated well no complications recover per protocol start time: 1028 Stop time: see nurses note
--- NOTE | 2018-12-21 10:49 | Consultation Report ---
DATE OF CONSULTATION: 12/21/2018 INPATIENT CARDIOLOGY CONSULTATION CONSULTATION REQUESTED BY: Ashely Altamirano PA-C REASON FOR CONSULTATION: Symptomatic atrial flutter with rapid ventricular response. HISTORY OF PRESENT ILLNESS: The patient is a 53-year-old woman who remotely followed in our cardiology clinic with Eduardo Gonsalez and Dr. Swan. She has been lost to follow up for over a year now. She presented to her primary care physician's office yesterday with a complaint of weakness and her heart racing. The patient states that she went to bed last night in her normal state of health and woke up this morning and felt her heart racing in her chest as she was brushing her teeth. She became short of breath with this and felt very very tired. She states that she also felt some pressure in the center of her chest when her heart was racing, but the pressure slowly resolved. She states it felt exactly like it did when she was in atrial flutter in the past. She was seen by her PCP. EKG was performed and found to be in atrial flutter, and she was sent to [facility] Emergency Department. In the ER, she was given Cardizem initially, and a drip was started with minimal benefits of heart rate. Clinically, the patient states that she is feeling a little bit better than presentation but still gets very short of breath when she ambulates. Her heart is not racing at rest now but again it will with ambulation. The patient was present in the room along with her family caseworker and social research assistant, and they all agree that she has been compliant with her medications and states that she actually has not missed any doses of Eliquis in the last 30 days at all. She states that she has been compliant with all her medications that are provided to her in packs for ease of use. PAST SURGICAL HISTORY: 1. Cardioversion x2. 2. Laparoscopic cholecystectomy. 3. Hysterectomy. 4. Lumbar hemilaminectomy. 5. Colonoscopies. 6. Upper endoscopy. 7. Ear surgery. 8. Tonsillectomy. 9. Tubal ligation. MEDICAL ILLNESSES: 1. Atrial flutter, on chronic Eliquis and sotalol. 2. Schizoaffective disorder. 3. Fibromyalgia. 4. Depression. 5. Nonconvulsive seizure disorder. 6. Asthmatic lung disease. 7. Obstructive sleep apnea. 8. Hypertension. 9. Dyslipidemia. 10. Hypothyroidism. 11. Obesity. FAMILY HISTORY: She has a strong family history of premature coronary artery disease in her family including her father who of an IN at unknown age. Mother of lung cancer in her 70s. Brother and sister without heart issue. SOCIAL HISTORY: The patient is a former smoker, quit in 2010. Denies any alcohol or recreational drug use. She is disabled. She lives at [facility]. She is disabled due to psychosis. ALLERGIES: 1. LATEX. 2. PHENYTOIN. MEDICATIONS AN OUTPATIENT: 1. Sotalol 80 mg b.i.d. 2. Eliquis 5 mg b.i.d. 3. Zantac b.i.d. 4. Buspirone. 5. Lexapro. 6. Lamictal. 7. Ellipta inhaler. 8. Albuterol inhaler. 9. Seroquel. 10. Flonase. 11. Levoxyl. 12. Potassium chloride. 13. Magnesium oxide. PHYSICAL EXAMINATION: VITAL SIGNS: Temperature 37, pulse 137, respiratory rate 12, blood pressure 134/83. GENERAL: Awake, alert, oriented x3 in no acute distress. HEENT: Normocephalic, atraumatic. Pupils equal, round, and react to light and accommodation. Extraocular muscles intact. Anicteric sclerae. Moist mucous membranes. NECK: No JVD, no bruit. CARDIOVASCULAR: Irregularly irregular and fast. Unable to appreciate murmurs, rubs, or gallops. PULMONARY: Clear to auscultation bilaterally. No rales, rhonchi, or wheezing. ABDOMEN: Bowel sounds x4, soft. No rebound, guarding, or tenderness. No organomegaly. EXTREMITIES: +1 bilateral lower extremity pitting edema. No clubbing or cyanosis. +2 pedal pulses bilaterally. SKIN: Warm and dry. TEST RESULTS: A 12-lead EKG performed in the Emergency Department independently reviewed at this time shows atrial flutter with variable response at 131 beats per minute. A 2D echocardiogram showed normal LV chamber size with borderline concentric LVH, normal LV systolic function, EF 65-70%. No segmental left ventricular wall motion abnormalities are noted. No significant valvular pathology. Normal left atrial size. LABORATORY STUDIES OF SIGNIFICANCE: Sodium 138, potassium 4, BUN 10, creatinine 0.7. IMPRESSION: 1. Symptomatic atrial flutter with rapid ventricular response, on chronic Eliquis and sotalol. 2. Schizoaffective disorder. 3. Depression. 4. Fibromyalgia. 5. History of nonconvulsive seizure disorder. RECOMMENDATIONS: It was my pleasure to see the patient in consultation today. Once again, the pathophysiology and treatment options for atrial flutter were discussed with the patient and her team. At this point, I believe the most prudent course of action will be to perform a DC cardioversion given the fact that she has been on Eliquis uninterrupted for quite some time now with the goal of symptom improvement. My hope would be to maintain normal sinus rhythm and have the patient discharged to home and follow up with electrophysiology as an outpatient for likely flutter ablation evaluation given that this is her third event and it now appears that she has broken through sotalol therapy. The patient agrees with the above plan. Informed consent was obtained, and cardioversion will be performed shortly.
[2018-12-21] MEDS: FLUTICASONE PROPIONATE NA SPR 16 GM BTL SCH (12:11)
[2018-12-21] MEDS: MAGNESIUM OXIDE 400 MG TAB PO SCH (12:11)
[2018-12-21] MEDS: AMOXICILLIN/CLAVULANATE 875 MG TAB PO SCH ×2 (12:11→20:21)
[2018-12-21] MEDS: FUROSEMIDE 20 MG TAB PO SCH (12:11)
[2018-12-21] MEDS: PANTOprazole 40 MG TAB PO SCH (12:11)
[2018-12-21] MEDS: lamoTRIgine 100 MG TAB PO SCH ×2 (12:11→20:18)
[2018-12-21] MEDS: POTASSIUM CHLORIDE 10 MEQ TABCR PO SCH (12:11)
[2018-12-21] MEDS: APIXABAN 5 MG TABLET PO SCH ×2 (12:11→20:19)
[2018-12-21] MEDS: ESCITALOPRAM OXALATE 20 MG TAB PO SCH (12:12)
[2018-12-21] MEDS: MULTIVITAMIN TAB PO SCH (12:12)
[2018-12-21] MEDS: SOTALOL HCL 80 MG TAB PO SCH ×2 (12:12→20:17)
[2018-12-21] MEDS: BusPIRone 15 MG TAB PO SCH ×2 (12:12→20:20)
[2018-12-21] MEDS: TIZANIDINE HCL 4 MG TABLET PO SCH ×3 (12:12→20:18)
[2018-12-21] MEDS: ARIPiprazole 15 MG TAB PO SCH (12:12)
[2018-12-21] MEDS: DICYCLOMINE HCL 10 MG CAP PO SCH ×3 (12:12→20:19)
--- NOTE | 2018-12-21 17:18 | Hospitalist Progress Note ---
Date of Service December 21, 2018 Assessment & Plan (1) Atrial flutter with rapid ventricular response: (2) Hypertensive urgency: Patient is a 53 yr female with H/O symptomatic paroxysmal atrial flutter x2 with initiation of sotalol in October 2016, chronic Eliquis anticoagulation, schizoaffective disorder, fibromyalgia, depression, seizure disorder, MAURO on 2 L at at bedtime, HTN, HLD, hypothyroidism who presents to [facility] secondary to feeling awful for 1 day. Symptomatic atrial flutter with RVR S/P successful cardioversion Mild elevated troponin likely due to demand Ischemia On IV diltiazem ggt Continue Sotalol On Eliquis for Anticoagulation ECHO: No segmental wall motion abnormalities Appreciate Cardiology Recommendations Hypertensive Urgency BP much improved Continue Current meds Monitor (3) URI (upper respiratory infection): Pt seen at pcp off for vertigo/URI sx dx with acute maxillary sinusitis Patient started on Augmentin 12/15 Will complete course in its entirety to be completed on 12/25 Continue Abx (4) Hypothyroidism: Continue levothyroxine 250 mcg daily TSH 0.287, T4 WNL Will need repeat thyroid function test as outpatient (5) Schizoaffective disorder, depressive type: Mood stable Continue Abilify, Seroquel (6) Epilepsy: Last seizure in the Continual Lamictal No seizure activity noted (7) MAURO (obstructive sleep apnea): O2 2 L at bedtime (8) Depression: Continue escitalopram (9) GERD (gastroesophageal reflux disease): Continue PPI (10) DVT prophylaxis: Eliquis Disposition: Expected discharge home in stable Follow-up: PCP Dr. Salas upon discharge Subjective Patient seen and examined at bedside Nausea is improving Complains of palpitations Had successful cardioversion this morning. Has dizziness with ambulation Denies any chest pain, shortness of breath Reports having mild right-sided headache, denies vision changes Review of Systems Review of Systems: All systems reviewed & are unremarkable except as noted in HPI & below Physical Exam Physical Exam: Physical Exam: Vitals signs as noted above General Appearance:Obese, no apparent distress Head: normocephalic, Atraumatic, frontal sinus tender Eyes: normal inspection, EOMI Neck: supple, Trachea midline Respiratory/Chest: Normal breath sounds, CTA Cardiovascular: Irregularly irregular rhythm, tachycardia, No murmur Abdomen/GI:Soft, Non tender, Bowel sounds present Extremities/Musculoskelatal:normal inspection, no edema Neurologic/Psych:AAOX3, grossly no focal neurological deficits Skin: normal color, warm Results & Data Vital Signs (Past 12 Hours) Vital Signs Temp Pulse Pulse Resp BP Pulse Ox 12/21/18 16:54 85 12/21/18 15:45 37.0 C 77 16 101/65 93 12/21/18 10:53 96 H 18 105/73 87 L 12/21/18 10:48 94 H 18 104/68 94 12/21/18 10:43 95 H 18 99/68 L 92 12/21/18 10:38 94 H 18 103/69 90 12/21/18 10:33 135 H 18 105/70 90 12/21/18 10:28 137 H 18 111/72 95 12/21/18 08:00 137 H 12/21/18 06:45 137 H 12/21/18 05:30 133 H Laboratory Results Short CBC 12/21/18 Range/Units 04:01 WBC 8.08 (4.8-10.8) K/uL Hgb 14.0 (12.0-16.0) g/dL Hct 39.9 (37-47) % Plt Count 211 (130-400) K/uL BMP 12/21/18 04:01 Sodium 138 Potassium 4.0 Chloride 104 Carbon Dioxide 29 BUN 10 Creatinine 0.69 Glucose 137 H Calcium 9.1 Cardiac Enzymes 12/20/18 12/20/18 12/21/18 Range/Units 16:34 22:01 04:01 Troponin I 0.066 H* 0.080 H* 0.094 H* (0-0.045) ng/ml Liver Function 12/20/18 Range/Units 16:34 Total Bilirubin 0.2 (0.2-1) mg/dl Alkaline Phosphatase 126 H (45-117) U/L Urine 12/20/18 Range/Units 17:31 Urine Color Yellow Urine Appearance Clear (Clear) Urine pH 8.0 H (4.5-7.5) Ur Specific [place] 1.010 (1.000-1.030) Urine Protein Negative (Negative) Urine Glucose (UA) Negative (Negative)
[2018-12-21] MEDS: QUETIAPINE FUMARATE 300 MG TABLET PO SCH (20:20)
[2018-12-22] MEDS: LEVOTHYROXINE SODIUM 50 MCG TABLET PO SCH (05:56)
[2018-12-22] MEDS: LEVOTHYROXINE SODIUM 200 MCG TABLET PO SCH (05:56)
[2018-12-22 07:34] LABS: BUN Creatinine Ratio 13.8 (10-20); Calcium 9.2 mg/dl (8.5-10.1); Creatinine Clr Calc Pharmacy 122.7 ml/min; Est GFR (African American) 105.7; Est GFR (Non-African American) 91.2; Magnesium 2.2 mg/dl (1.8-2.4); Potassium 3.9 mmol/L (3.5-5.1)
[2018-12-22] MEDS: ARIPiprazole 15 MG TAB PO SCH (08:11)
[2018-12-22] MEDS: SOTALOL HCL 80 MG TAB PO SCH (08:12)
[2018-12-22] MEDS: DICYCLOMINE HCL 10 MG CAP PO SCH ×2 (08:12→13:51)
[2018-12-22] MEDS: AMOXICILLIN/CLAVULANATE 875 MG TAB PO SCH (08:12)
[2018-12-22] MEDS: POTASSIUM CHLORIDE 10 MEQ TABCR PO SCH (08:13)
[2018-12-22] MEDS: FLUTICASONE PROPIONATE NA SPR 16 GM BTL SCH (08:13)
[2018-12-22] MEDS: APIXABAN 5 MG TABLET PO SCH (08:13)
[2018-12-22] MEDS: BusPIRone 15 MG TAB PO SCH (08:13)
[2018-12-22] MEDS: MULTIVITAMIN TAB PO SCH (08:14)
[2018-12-22] MEDS: FUROSEMIDE 20 MG TAB PO SCH (08:14)
[2018-12-22] MEDS: lamoTRIgine 100 MG TAB PO SCH (08:14)
[2018-12-22] MEDS: MAGNESIUM OXIDE 400 MG TAB PO SCH (08:14)
[2018-12-22] MEDS: ESCITALOPRAM OXALATE 20 MG TAB PO SCH (08:14)
[2018-12-22] MEDS: PANTOprazole 40 MG TAB PO SCH (08:14)
[2018-12-22] MEDS: TIZANIDINE HCL 4 MG TABLET PO SCH ×2 (08:15→13:51)
--- NOTE | 2018-12-22 09:50 | Cardiology Progress Note ---
Date of Service December 22, 2018 Assessment & Plan (1) Atrial flutter with rapid ventricular response: s/p DC cardioversion on 12/21 has remained in sinus will cont sotalol and Eliquis my office will call to schedule EP eval for possible ablation ok to d/c to home from cardiac standpoint (2) Hypertension: running a little high will start losartan 25mg po daily f/u with pcp as outpatient does not need to remain hospitalized for bp management Subjective Pt seen and examined, states that she feels better today. Denies cp, sob, palpitations, lightheadness or dizziness. tele reviewed: sinus rhythm without recurrence of atrial flutter Review of Systems Review of Systems: All systems reviewed & are unremarkable except as noted in HPI & below Physical Exam Physical Exam: General: Awake, alert and oriented x 3. No acute distress. HEENT: Normocephalic, atraumatic. Pupils equal, round and reactive to light and accommodation. Extraocular muscles are intact. Anicteric sclera. Moist mucous membranes. Neck: No JVD. No bruit. Cardiovascular: Regular. Positive S-4. Normal S-1 and S-2. No S-3. No murmurs or rubs. Pulmonary: Clear to auscultation B/L. No rales, rhonchi or wheezing Abdomen: Bowel sounds x 4, soft. No rebound, guarding or tenderness. No organomegaly. Extremities: No clubbing, cyanosis or edema. +2 pedal pulses bilaterally. Skin: Warm and dry. Results & Data Vital Signs (Past 12 Hours) Vital Signs Temp Pulse Pulse Resp BP Pulse Ox 12/22/18 06:49 36.6 C 86 16 163/97 H 97 12/22/18 02:50 36.4 C L 91 H 18 139/85 91 12/22/18 00:05 74 12/21/18 23:18 36.5 C 91 H 16 138/84 92
[2018-12-22] MEDS ORDERED: LOSARTAN POTASSIUM 25 MG TAB PO SCH (10:15)
--- NOTE | 2018-12-22 13:41 | Hospitalist Progress Note ---
Date of Service December 22, 2018 Assessment & Plan (1) Atrial flutter with rapid ventricular response: (2) Hypertensive urgency: Patient is a 53 yr female with H/O symptomatic paroxysmal atrial flutter x2 with initiation of sotalol in October 2016, chronic Eliquis anticoagulation, schizoaffective disorder, fibromyalgia, depression, seizure disorder, MAURO on 2 L at at bedtime, HTN, HLD, hypothyroidism who presents to [facility] secondary to feeling awful for 1 day. Symptomatic atrial flutter with RVR S/P successful cardioversion Mild elevated troponin likely due to demand Ischemia Continue Sotalol On Eliquis for Anticoagulation ECHO: No segmental wall motion abnormalities Appreciate Cardiology Recommendations Needs follow-up with EP as outpatient for possible ablation Currently in sinus Hypertensive Urgency BP slightly elevated Continue Current meds Added losartan 25 mg daily for better blood pressure control Monitor (3) URI (upper respiratory infection): Pt seen at pcp off for vertigo/URI sx dx with acute maxillary sinusitis Patient started on Augmentin 12/15 Will complete course in its entirety to be completed on 12/25 Continue Abx (4) Hypothyroidism: Continue levothyroxine 250 mcg daily TSH 0.287, T4 WNL Will need repeat thyroid function test as outpatient (5) Schizoaffective disorder, depressive type: Mood stable Continue Rahul Elias (6) Epilepsy: Last seizure in the Continual Lamictal No seizure activity noted (7) MAURO (obstructive sleep apnea): O2 2 L at bedtime (8) Depression: Continue escitalopram (9) GERD (gastroesophageal reflux disease): Continue PPI (10) DVT prophylaxis: Eliquis Disposition: Expected discharge home in stable Follow-up: PCP Dr. Salas upon discharge Subjective Patient seen and examined at bedside Doing well today Offers no complaints Denies any chest pain, shortness of breath, palpitations, dizziness Plan to be discharged home today Review of Systems Review of Systems: All systems reviewed & are unremarkable except as noted in HPI & below Physical Exam Physical Exam: Physical Exam: Vitals signs as noted above General Appearance:Obese, no apparent distress Head: normocephalic, Atraumatic Eyes: normal inspection, EOMI Neck: supple, Trachea midline Respiratory/Chest: Normal breath sounds, CTA Cardiovascular: S1, S2, NSR, No murmur Abdomen/GI:Soft, Non tender, Bowel sounds present Extremities/Musculoskelatal:normal inspection, no edema Neurologic/Psych:AAOX3, grossly no focal neurological deficits Skin: normal color, warm Results & Data Vital Signs (Past 12 Hours) Vital Signs Temp Pulse Resp BP Pulse Ox 12/22/18 11:15 37.1 C 89 18 135/84 96 12/22/18 06:49 36.6 C 86 16 163/97 H 97 12/22/18 02:50 36.4 C L 91 H 18 139/85 91 Laboratory Results [facility] 12/22/18 06:36 Sodium 137 Potassium 3.9 Chloride 105 Carbon Dioxide 29 BUN 10 Creatinine 0.74 Glucose 122 H Calcium 9.2
--- NOTE | 2018-12-22 13:46 | Discharge Summary ---
Date of Service December 22, 2018 Admission HPI Per Admitting Provider This is a 53-year-old female who has a significant past medical history of symptomatic paroxysmal atrial flutter x2 with initiation of sotalol in October 2016, chronic Eliquis anticoagulation, schizoaffective disorder, fibromyalgia, depression, seizure disorder, MAURO on 2 L at at bedtime, HTN, HLD, hypothyroidism who presents to [facility] secondary to feeling awful for 1 day. Family friend is at bedside. Patient states yesterday she was overall very tired and felt she slept a lot of the day. She was otherwise feeling fine until she woke up this morning overall, "feeling awful." She overall felt sweaty, hot, dizzy, substernal chest discomfort described as a "pressure,"dyspnea on exertion and nausea. She also elicits dull headache, frontal that started when she got to ED. Initially patient was seen by outpatient provider Luz Maria Rogers and was referred to ED secondary to A. antoine with RVR. She denies any recent illness but after further conversation does elicit that she was recently started on Augmentin on 12/15 secondary to upper respiratory symptoms. She states that she takes her medications regularly. She has not taking anything [id number]. She does not smoke, drink alcohol or use illicit drugs. She does not notice any overt weight gain, increased edema, orthopnea or PND. She feels she overall has lost weight. She denies any fever, chills, sweats, cough, hemoptysis, emesis, abdominal pain, change in her bowel or urinary habits. Admission Exam Per Admitting Provider Gen: WD/WN, morbidly obese, female, sitting up in bed, apprehensive but pleasant, conversing easily Head: Normocephalic, Atraumatic Eyes: Sclera normal, no conjunctival injection, PERRLA, EOMI ENT: Gross hearing intact, normal pharynx, mucous membranes moist Neck: supple, no adenopathy, No JVD, no bruit, Resp: Clear to auscultation b/l, no wheeze, rales, rhonchi. Normal insp/exp effort, no accessory muscle use CV: Tachycardic rate, but regular rhythm, no murmur, rub, gallop, or ectopy Abd: Obese abdomen +BS x 4, soft, nontender, nondistended Musculoskeletal: moves extremities active rom x 4, strength intact, good firewall administrator strength Extremities: No edema bilaterally Skin: warm, moist, no rash, negative turgor, cap refill < 2sec Neuro: Alert and oriented x 3, speech normal, flat mood/affect, cran nerve 2-12 intact grossly : deferred Principal Diagnosis Discharge Information Discharge Diagnosis Atrial flutter RVR Hypertensive urgency Discharge Goals Decrease discomfort,Improve disease control, Improve function Discharge Activity Limitations Resume your previous activity Discharge Data Allergies Allergy/AdvReac Type Severity Reaction Status Date / Time latex Allergy Mild Rash Verified 12/20/18 18:12 Hydantoins Allergy Unknown Hives Verified 12/20/18 18:12 phenytoin Allergy Unknown Nausea Verified 12/20/18 18:12 thioridazine AdvReac Severe SEIZURES Verified 12/20/18 18:12 Ethanol AdvReac Severe SEIZURES Uncoded 12/20/18 18:12 Consultations 12/20/18 18:01 ED Decision to Admit Stat 12/20/18 18:44 Consult Cardiology Routine 12/20/18 20:04 Consult Case Management - Discharge Planning Routine Procedures Performed CT Head No acute intracranial abnormality. Left Hip X ray: No acute bony abnormality is identified. CXR: No acute cardiopulmonary disease. Hospital Course (1) Atrial flutter with rapid ventricular response: (2) Hypertensive urgency: Patient is a 53 yr female with H/O symptomatic paroxysmal atrial flutter x2 with initiation of sotalol in October 2016, chronic Eliquis anticoagulation, schizoaffective disorder, fibromyalgia, depression, seizure disorder, MAURO on 2 L at at bedtime, HTN, HLD, hypothyroidism who presents to [facility] secondary to feeling awful for 1 day. Symptomatic atrial flutter with RVR S/P successful cardioversion Mild elevated troponin likely due to demand Ischemia Continue Sotalol On Eliquis for Anticoagulation ECHO: No segmental wall motion abnormalities Appreciate Cardiology Recommendations Needs follow-up with EP as outpatient for possible ablation Currently in sinus Hypertensive Urgency BP slightly elevated Continue Current meds Added losartan 25 mg daily for better blood pressure control Monitor (3) URI (upper respiratory infection): Pt seen at pcp off for vertigo/URI sx dx with acute maxillary sinusitis Patient started on Augmentin 12/15 Will complete course in its entirety to be completed on 12/25 Continue Abx (4) Hypothyroidism: Continue levothyroxine 250 mcg daily TSH 0.287, T4 WNL Will need repeat thyroid function test as outpatient (5) Schizoaffective disorder, depressive type: Mood stable Continue Rahul Elias (6) Epilepsy: Last seizure in the Continual Lamictal No seizure activity noted (7) MAURO (obstructive sleep apnea): O2 2 L at bedtime (8) Depression: Continue escitalopram (9) GERD (gastroesophageal reflux disease): Continue PPI (10) DVT prophylaxis: Eliquis Disposition: Expected discharge home in stable Follow-up: PCP Dr. Salas upon discharge Total Time Total Time Spent Total Time Spent (In Minutes): 38 minutes Total Time Includes: Examination of the Patient, Discharge Planning, Medication Reconciliation, Communication With Other Providers and Other Discharge Plan Discharge Items Patient Disposition: Home - Self-Care Reason For Visit: AFLUTTER Discharge Diagnosis: Atrial flutter RVR Hypertensive urgency Discharge Goals: Decrease discomfort, Improve disease control and Improve function Activity: Resume your previous activity Exercise/Sports: Gradually increase as tolerated Non-emergency contact: Primary Care Provider and Senior Communications Engineer Call non-emergency contact if: you have any medication questions, your symptoms worsen, your pain is not controlled, your pain is worsening, your pain is unusual for you, your pain is concerning for you and you have a fever Follow-up/Referrals: Brian Salas, [Primary Care Provider] - Diet: Heart Healthy Addtl Provider Instructions: Follow-up with your primary care physician Dr. Conrad on December 28, 2018 at 12:55 PM Follow-up with your product specialist Dr. Amado as recommended Follow-up with motor vehicle emissions inspector for possible ablation as outpatient You are started on losartan 25 mg daily for better blood pressure control Seek immediate medical attention if your symptoms reoccur or worsen Prescriptions: New losartan 25 mg Tablet 25 mg PO QAM 30 Days Qty: 30 RF: 1 Continued multivitamin Tablet 1 tab PO QAM RF: 0 potassium chloride 10 mEq Capsule, Extended Release 10 meq PO QAM RF: 0 lamotrigine [Lamictal] 200 mg Tablet 200 mg PO BID RF: 0 tizanidine 2 mg Tablet 6 mg PO TID RF: 0 sotalol 80 mg Tablet 80 mg PO BID RF: 0 melatonin 3 mg Tablet 6 mg PO HS RF: 0 levothyroxine 50 mcg Tablet 50 mcg PO QAM RF: 0 levothyroxine 200 mcg Tablet 200 mcg PO DAILY RF: 0 furosemide 20 mg Tablet 20 mg PO QAM RF: 0 albuterol sulfate [ProAir HFA] 90 mcg/actuation Hfa Aerosol Inhaler 2 puff INHALATION Q4 PRN (Reason: Shortness Of Breath) RF: 0 fluticasone propionate [Flonase Allergy Relief] 50 mcg/actuation [place],Suspension 2 spray INTRANASAL QAM RF: 0 dicyclomine 10 mg Capsule 10 mg PO TID RF: 0 escitalopram oxalate 20 mg Tablet 20 mg PO QAM RF: 0 aripiprazole 30 mg Tablet 30 mg PO HS RF: 0 Eliquis 5 mg Tablet 5 mg PO BID RF: 0 Breo Ellipta 100-25 mcg/dose Blister With Device 1 inh INHALATION QAM RF: 0 biotin 5,000 mcg Tablet, Sublingual 5,000 mcg Sublingual QAM RF: 0 amoxicillin-pot clavulanate 875-125 mg tablet 1 tab PO BID RF: 0 quetiapine [Seroquel] 300 mg Tablet 300 mg PO HS RF: 0 omeprazole 20 mg Capsule,Delayed Release(Dr/Ec) 20 mg PO DAILY RF: 0 buspirone 15 mg Tablet 30 mg PO BID RF: 0 magnesium oxide 400 mg magnesium Tablet 400 mg PO QAM RF: 0 Stand-Alone Forms: Call Back Authorization, [facility] Discharge Orders: Discharge Order (Routine); Ordered 12/22/18 Ordered By: Cristobal Costa Admission Data Admit Date/Time: 12/20/18 18:44 Attending Provider: Cristobal Costa Admit Provider: Theresa Mendoza Primary Care Provider: Brian Salas Other Providers: Anderson Amado Sabrina M Service: Telemetry Other Interventions: Discharge Summary Assessment (RN) Last Done: 12/22/18 14:07 Pending Studies at Discharge: No DC Date/Time DO NOT enter until pt leaves facility: 12/22/18 14:41
== END 2018-12-22 14:41 | disposition home or self-care (01) | DRG 309 ==
LOC: ED 16:26 → 2S 18:44

== ENCOUNTER 2019-01-17 06:21 | Observation (INO) ==
--- NOTE | 2019-01-12 09:34 | Anesthesiology Consultation ---
Date of Service January 12, 2019 Assessment & Plan (1) Encounter for pre-operative examination: Chart Review Chart Review: Acceptable Risk for Surgery and Patient NOT seen in Pre Admission Testing History Surgery Operation Date: 01/17/19 08:00 Proposed Procedures p EP Study - Atrial Flutter with Mapping, Venous Ablation with Anesthesia - Tamie Jones DO Height/Weight Height: 5 ft 7 in Weight: 136.078 kg Allergies Allergy/AdvReac Type Severity Reaction Status Date / Time Hydantoins Allergy Unknown Hives Verified 12/20/18 18:12 phenytoin Allergy Unknown Nausea Verified 12/20/18 18:12 adhesive Allergy RASH, ITCHY Verified 01/02/19 15:16 thioridazine AdvReac Severe SEIZURES Verified 12/20/18 18:12 Ethanol AdvReac Severe SEIZURES Uncoded 12/20/18 18:12 Medications Home Medications Medication Instructions Recorded Confirmed Last Taken Breo Ellipta 1 inh INHALATION QAM 05/31/18 01/02/19 12/20/18 Eliquis 5 mg PO BID 05/31/18 01/02/19 12/20/18 albuterol sulfate [ProAir HFA] 2 puff INHALATION Q4 PRN 05/31/18 01/02/19 12/20/18 aripiprazole 30 mg PO QAM 05/31/18 01/02/19 12/19/18 dicyclomine 10 mg PO TID 05/31/18 01/02/19 12/20/18 escitalopram oxalate 20 mg PO QAM 05/31/18 01/02/19 12/20/18 fluticasone propionate [Flonase 2 spray INTRANASAL QAM 05/31/18 01/02/19 12/20/18 Allergy Relief] furosemide 20 mg PO QAM 05/31/18 01/02/19 12/20/18 lamotrigine [Lamictal] 200 mg PO BID 05/31/18 01/02/19 12/20/18 levothyroxine 50 mcg PO QAM 05/31/18 01/02/19 12/20/18 levothyroxine 200 mcg PO QAM 05/31/18 01/02/19 12/20/18 melatonin 3 mg PO HS 05/31/18 01/02/19 12/19/18 multivitamin 1 tab PO QAM 1001/02/19 12/20/18 potassium chloride 10 meq PO QAM 05/31/18 01/02/19 12/20/18 sotalol 80 mg PO BID 05/31/18 01/02/19 12/20/18 tizanidine 2 mg PO TID 05/31/18 01/02/19 12/20/18 buspirone 15 mg PO BID 11/30/18 01/02/19 12/20/18 magnesium oxide 400 mg PO QAM 11/30/18 01/02/19 12/20/18 quetiapine [Seroquel] 300 mg PO HS 11/30/18 01/02/19 12/19/18 losartan 25 mg PO QAM 30 Days #30 tab 12/22/18 01/02/19 Unknown biotin 5,000 mcg PO QAM 01/02/19 01/02/19 Unknown oxycodone 5 mg PO DAILY PRN 01/02/19 01/02/19 Unknown riboflavin (vitamin B2) [Vitamin 100 mg PO QAM 01/02/19 01/02/19 Unknown B-2] triamcinolone acetonide [Nasacort] 2 spray INTRANASAL QAM 01/02/19 01/02/19 Unknown Past Medical History Medical History Asthma INHALERS DAILY/PRN 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 ON ELIQUIS Bipolar 1 disorder Chronic back pain Degenerative disc disease Depression Fibromyalgia GERD (gastroesophageal reflux disease) Hypertension Hypothyroidism Migraine Morbid obesity Osteoarthritis Schizoaffective disorder Seizure SEIZURES X 2 (); CONTROLLED ON LAMICTAL Sleep apnea 2L N/C HS Spinal stenosis Past Family History Family History Father Family history of diabetes mellitus Coronary heart disease Mother Lung cancer Sister Alive and well Brother Alive and well Past Surgical History Surgical History History of carpal tunnel release LEFT History of cholecystectomy History of colonoscopy History of endoscopic sinus surgery History of tonsillectomy and adenoidectomy History of tooth extraction ALL UPPER TEETH EXTRACTIONS History of total abdominal hysterectomy and bilateral salpingo-oophorectomy S/P foot surgery, left X2 Status post lumbar spine surgery for decompression of spinal cord + RODS Social History Smoking Status: Former smoker tobacco type: cigarettes Do You Dip or Chew Tobacco: No Smoking End Date: >10 YR Hx Alcohol Use: No Hx Substance Use: No substance use type: does not use Testing Laboratory Results 12/21/18 WBC 8.08 H/H 14.0/39.9 PLATELETS 211 12/29/18 SODIUM 142 POTASSIUM 4.8 CHLORIDE 101 CO2 32 BUN 13 CREATININE 0.7 GLUCOSE 96 HGBA1C 5.9% 12/20/18 PT 11.3 PTT 30.1 INR 1.1 UA negative Electrocardiogram Date: 12/21/18 NSR at 91bpm. "Normal" Chest X-Ray Date: 12/20/18 Findings: + NAD Cardiac silhouette top normal in size. Echocardiogram Date: 12/21/18 EF 65-70%. No RWMA. Borderline cLVH. No significant valvular disease. Stress Test Date: 11/06/15 Type: nuclear (Lexiscan) Myocardial perfusion imaging is "normal." LVEF >70%. 76% MPHR. Pulmonary Function Test Date: 12/09/16 Moderate mixed restrictive/obstructive disease with slight improvement after inhaled bronchodilator. Significant reduction in lung volumes due to obesity. Mild reduction in DLCO.
[~2019-01-17 06:21] MED LIST changes: -ACET-1256 PO; -APIX1TAB3 PO; -ARIP30TA3 PO; -BIOTCAP2 PO; -BUSP30TA2 PO; +CEFAZOLIN 3000MG 65 ML IV SCH; -DICY10CA55 PO; -EFFSR150 PO; -FLUT0.15 NAE; -FLUT1INH PO; -FURO-85 PO; -GUAI100S75 PO; -HYDR-5688 PO; -IBUP-1050 PO; -LAMO200T35 PO; -LEVA45AE INH; -LEVO200T6 PO; -LEVO50TA6 PO; -LOPE1CAP6 PO; +LR 15ML/HR IV SCH; -MELA1TAB49 PO; -MULT-411 PO; -NAPR1TAB9 PO; -NYST1POW7 TOP; -OXYC-609 PO; -POTA10CA28 PO; -PROAIR 90 MCG INH; -RANI150T3 PO; -SIMV-151 PO; -SOTA80TA PO; -TIZA4CAP PO; -TOPI50TA16 PO
[2019-01-17] MEDS ORDERED: fentaNYL citrate 100 MCG/2 ML VIAL ONE (07:51)
[2019-01-17] MEDS ORDERED: MIDAZOLAM HCL 1 MG/ML 2ML VIAL ONE ×2 (07:51→09:21)
--- NOTE | 2019-01-17 07:55 | History & Physical Bridge Note ---
Date of Service January 17, 2019 History & Physical Bridge Note I have examined the patient, reviewed the History & Physical and in the interval since the performance of the History & Physical I have noted the following changes of clinical significance: no changes noted
[2019-01-17] MEDS ORDERED: fentaNYL citrate 100 MCG/2 ML VIAL IV PRN (07:58)
[2019-01-17] MEDS ORDERED: ATROPINE SULFATE 0.1 MG/ML 10ML SYR IV PRN (07:58)
[2019-01-17] MEDS ORDERED: MoRPHine SULFATE 10 MG/ML CARP/VIAL IV PRN (07:58)
[2019-01-17] MEDS ORDERED: ePHEDrine sulfate 50 MG/ML AMP IV PRN (07:58)
[2019-01-17] MEDS ORDERED: HEPARIN SOD (PORCINE) 1000 UNIT/ML 10 ML VIAL ONE (08:38)
[2019-01-17] MEDS ORDERED: PROPOFOL IV EMULSION 10 MG/ML 100 ML VIAL IV ONE (09:48)
[2019-01-17] MEDS ORDERED: HydrALAZINE HCL 20 MG/ML VIAL ONE (10:09)
[2019-01-17] MEDS ORDERED: PROPOFOL IV EMULSION 10 MG/ML 20 ML VIAL IV ONE (10:25)
[2019-01-17] MEDS ORDERED: ONDANSETRON INJ 2 MG/ML 2 ML VIAL ONE ×3 (10:33→11:31)
--- NOTE | 2019-01-17 10:34 | Operative Report ---
Post Operative Report Pre & Post Diagnosis p. atrial flutter Post: Same with bidirectional block across the CTI Operation Date: 01/17/19 08:00 <No data on this case meets the specified criteria> Procedure Operation Date: 01/17/19 08:00 Actual Procedures p EPS + Ablation for SVT Flutter - DO emelyn Emmanuel 3D Mapping (Carto) - DO emelyn Emmanuel [place] Pacing (Add-On) - Tamie Jones DO Surgeon Tamie Jones, Electronics Lead none Estimated Blood Loss 5 Findings Consistent with Post-Op Diagnosis Specimens none Description of Procedure see official report I attest to the content of the Intraoperative Record and any orders documented therein. Any exceptions are noted below.
[2019-01-17] MEDS ORDERED: ALBUTEROL HFA 8 GM INHALER INH PRN (10:36)
[2019-01-17] MEDS ORDERED: OXYCODONE HCL IR 5 MG TAB (IMMEDIATE RELEASE) PO PRN (10:36)
--- NOTE | 2019-01-17 10:41 | Discharge Summary ---
Date of Service January 17, 2019 Admission HPI Per Admitting Provider Pt admitted for elective atrial flutter ablation Admission Exam Per Admitting Provider aaox3, NAD NC/AT, EOMI Supple No JVD Nrl S1/S2, No murmur CTA b/l no w/r/r soft nt/nd, obese no LE edema b/l skin intact no focal deficits Principal Diagnosis pAtrial flutter s/p empiric flutter ablation Discharge Exam NC/AT, EOMI Supple No JVD Nrl S1/S2, No murmur CTA b/l no w/r/r soft nt/nd no LE edema b/l skin intact no focal deficits b/l groins soft no hematoma Discharge Data Allergies Allergy/AdvReac Type Severity Reaction Status Date / Time Hydantoins Allergy Unknown Hives Verified 01/17/19 06:47 phenytoin Allergy Unknown Nausea Verified 01/17/19 06:47 adhesive Allergy RASH, ITCHY Verified 01/17/19 06:47 ethyl alcohol AdvReac Severe Seizure Verified 01/17/19 11:42 thioridazine AdvReac Severe SEIZURES Verified 01/17/19 06:47 Procedures Performed Operation Date: 01/17/19 08:00 Actual Procedures p EPS + Ablation for SVT Flutter - DO emelyn Emmanuel 3D Mapping (Carto) - DO emelyn Emmanuel LA Pacing (Add-On) - Tamie Jones DO Total Time Total Time Spent Total Time Spent (In Minutes): 30 Total Time Includes: Examination of the Patient, Discharge Planning, Medication Reconciliation and Other Discharge Plan Discharge Items Patient Disposition: Home - Self-Care Reason For Visit: EP STUDY, AFLUTTER ABLATION Discharge Diagnosis: paroxysmal atrial flutter s/p flutter ablation Condition: Good Discharge Goals: Improve function Activity: As commented below Activity Comment: no heavy lifting or squating for 1 week Lifting: No more than 10 pounds Bathing: No limitations Sexual Activity: After two weeks Driving/Machine Use: Resume 1 day after discharge Non-emergency contact: Reconciling Clerk Call non-emergency contact if: you have any medication questions Follow-up/Referrals: Brian Salas DO [Primary Care Provider] - Diet: Heart Healthy Addtl Provider Instructions: f/u with Dr. Jones as scheduled in 1 month Prescriptions: New amlodipine [Norvasc] 5 mg Tablet 5 mg PO QAM Qty: 30 RF: 0 Continued multivitamin Tablet 1 tab PO QAM RF: 0 potassium chloride 10 mEq Capsule, Extended Release 10 meq PO QAM RF: 0 lamotrigine [Lamictal] 200 mg Tablet 200 mg PO BID RF: 0 tizanidine 2 mg Tablet 2 mg PO TID RF: 0 sotalol 80 mg Tablet 80 mg PO BID RF: 0 melatonin 3 mg Tablet 3 mg PO HS RF: 0 levothyroxine 200 mcg Tablet 250 mcg PO QAM RF: 0 furosemide 20 mg Tablet 20 mg PO QAM RF: 0 albuterol sulfate [ProAir HFA] 90 mcg/actuation Hfa Aerosol Inhaler 2 puff INHALATION Q4 PRN (Reason: Shortness Of Breath) RF: 0 fluticasone propionate [Flonase Allergy Relief] 50 mcg/actuation Gaastra,Suspension 2 spray INTRANASAL QAM RF: 0 dicyclomine 10 mg Capsule 10 mg PO TID RF: 0 escitalopram oxalate 20 mg Tablet 20 mg PO QAM RF: 0 aripiprazole 30 mg Tablet 30 mg PO QAM RF: 0 Eliquis 5 mg Tablet 5 mg PO BID RF: 0 Breo Ellipta 100-25 mcg/dose Blister With Device 1 inh INHALATION QAM RF: 0 losartan 25 mg Tablet 25 mg PO QAM 30 Days Qty: 30 RF: 1 riboflavin (vitamin B2) [Vitamin B-2] 100 mg Tablet 100 mg PO QAM RF: 0 triamcinolone acetonide [Nasacort] 55 mcg Aerosol,Gaastra 2 spray INTRANASAL QAM RF: 0 oxycodone 5 mg Tablet 5 mg PO DAILY PRN (Reason: Pain) RF: 0 biotin 5,000 mcg Tablet,Disintegrating 5,000 mcg PO QAM RF: 0 quetiapine [Seroquel] 300 mg Tablet 300 mg PO HS RF: 0 buspirone 15 mg Tablet 15 mg PO BID RF: 0 magnesium oxide 400 mg magnesium Tablet 400 mg PO QAM RF: 0 Stand-Alone Forms: [facility] Discharge Orders: Discharge Order (Routine); Ordered 01/18/19 Ordered By: Tamie Jones Admission Data Admit Date/Time: 01/17/19 11:07 Attending Provider: Tamie Jones Admit Provider: Tamie Jones Primary Care Provider: Brian Salas Service: Telemetry
--- NOTE | 2019-01-17 11:43 | Anesthesiology Progress Note ---
Date of Service January 17, 2019 Anesthesia Post Procedure Vital Signs Vital Signs: Temp Pulse Resp BP Pulse Ox 01/17/19 11:20 36.5 C 85 20 187/88 H 95 01/17/19 11:05 36.6 C 87 201/98 H 97 01/17/19 06:55 36.8 C 71 20 180/99 H 93 Transfer of Care Handoff Completed per policy Notes Mental Status: alert / awake / arousable and participated in evaluation Patient Amnestic to Procedure: Yes Nausea / Vomiting: adequately controlled Pain: adequately controlled Airway Patency, RR, SpO2: stable & adequate BP & HR: stable & adequate Hydration State: stable & adequate Anesthetic Complications: no major complications apparent
[2019-01-17] MEDS: HydrALAZINE HCL 20 MG/ML VIAL IV PRN ×2 (11:59→19:23)
[2019-01-17] MEDS ORDERED: LORazepam 2 MG/4 ML VIAL ONE (12:03)
[2019-01-17] MEDS ORDERED: LORazepam 1 MG/2 ML VIAL IV STA (12:03)
[2019-01-17] MEDS ORDERED: LORazepam 1 MG/2 ML VIAL IV PRN (12:06)
[2019-01-17] MEDS: ENALAPRILAT 1.25 MG in DEXTROSE 5% 25 ML IV PRN ×2 (13:20→20:33)
[2019-01-17] MEDS: DICYCLOMINE HCL 10 MG CAP PO SCH ×2 (14:14→20:40)
[2019-01-17] MEDS: TIZANIDINE HCL 4 MG TABLET PO SCH ×2 (14:14→20:38)
[2019-01-17] MEDS ORDERED: ENALAPRILAT 1.25 MG in DEXTROSE 5% 25 ML IV ONE (16:15)
[2019-01-17] MEDS ORDERED: METOPROLOL TARTRATE 1 MG/ML VIAL IV STA (17:54)
[2019-01-17] MEDS ORDERED: AMLODIPINE BESYLATE 5 MG TAB PO ONE (17:54)
[2019-01-17] MEDS: ONDANSETRON INJ 2 MG/ML 2 ML VIAL IV PRN (19:36)
[2019-01-17] MEDS: ACETAMINOPHEN 325 MG TAB PO PRN (19:36)
[2019-01-17] MEDS: APIXABAN 5 MG TABLET PO SCH (20:37)
[2019-01-17] MEDS: SOTALOL HCL 80 MG TAB PO SCH (20:40)
[2019-01-17] MEDS: BUSPIRONE HCL 7.5 MG TAB PO SCH (20:41)
[2019-01-17] MEDS: lamoTRIgine 100 MG TAB PO SCH (20:42)
[2019-01-17] MEDS ORDERED: QUETIAPINE FUMARATE 300 MG TABLET PO SCH (21:00)
[2019-01-17] MEDS ORDERED: METOPROLOL TARTRATE 1 MG/ML VIAL IV PRN (21:04)
[2019-01-18] MEDS: HydrALAZINE HCL 20 MG/ML VIAL IV PRN (03:29)
[2019-01-18] MEDS: ONDANSETRON INJ 2 MG/ML 2 ML VIAL IV PRN (04:35)
[2019-01-18] MEDS ORDERED: LEVOTHYROXINE SODIUM 125 MCG TABLET PO SCH (06:30)
[2019-01-18] MEDS: ACETAMINOPHEN 325 MG TAB PO PRN (08:09)
[2019-01-18] MEDS: APIXABAN 5 MG TABLET PO SCH (08:10)
[2019-01-18] MEDS: TIZANIDINE HCL 4 MG TABLET PO SCH (08:10)
[2019-01-18] MEDS: DICYCLOMINE HCL 10 MG CAP PO SCH (08:10)
[2019-01-18] MEDS: SOTALOL HCL 80 MG TAB PO SCH (08:10)
[2019-01-18] MEDS: lamoTRIgine 100 MG TAB PO SCH (08:11)
[2019-01-18] MEDS: BUSPIRONE HCL 7.5 MG TAB PO SCH (08:11)
[2019-01-18] MEDS ORDERED: NON-FORMULARY MEDICATION (Biotin 5,000 MCG) PO SCH (09:00)
[2019-01-18] MEDS ORDERED: FLUTICASONE PROPIONATE NA SPR 16 GM BTL NAE SCH (09:00)
[2019-01-18] MEDS ORDERED: TRIAMCINOLONE ACET NASAL SPRAY 10.8ML BTL NAE SCH (09:00)
[2019-01-18] MEDS ORDERED: ESCITALOPRAM OXALATE 20 MG TAB PO SCH (09:00)
[2019-01-18] MEDS ORDERED: NON-FORMULARY MEDICATION (Fluticasone Furoate-Vilanterol [Breo Ellipta] 1 PUFFS) INH SCH (09:00)
[2019-01-18] MEDS ORDERED: NON-FORMULARY MEDICATION (Riboflavin (Vitamin B2) [Vitamin B-2] 100 MG) PO SCH (09:00)
[2019-01-18] MEDS ORDERED: AMLODIPINE BESYLATE 5 MG TAB PO SCH (09:00)
[2019-01-18] MEDS ORDERED: POTASSIUM CHLORIDE 10 MEQ TABCR PO SCH (09:00)
[2019-01-18] MEDS ORDERED: ARIPiprazole 15 MG TAB PO SCH (09:00)
[2019-01-18] MEDS ORDERED: LOSARTAN POTASSIUM 25 MG TAB PO SCH (09:00)
[2019-01-18] MEDS ORDERED: MAGNESIUM OXIDE 400 MG TAB PO SCH (09:00)
[2019-01-18] MEDS ORDERED: MULTIVITAMIN TAB PO SCH (09:00)
[2019-01-18] MEDS ORDERED: FUROSEMIDE 20 MG TAB PO SCH (09:00)
--- NOTE | 2019-01-25 01:40 | Operative Report ---
DATE OF OPERATION: 01/17/2019 PREOPERATIVE DIAGNOSIS: Paroxysmal atrial flutter. POSTOPERATIVE DIAGNOSIS: Paroxysmal atrial flutter. PROCEDURE: Electrophysiology study plus and an empiric atrial flutter ablation. Ultrasound guidance for venous access. SURGEON: Dr. Tamie Jones. CIVIL ENGINEER IN TRAINING: None. ANESTHESIA: Monitored anesthetic care administered via the anesthesiologist, start 08:10 and end time 10:30, a total of 4 mg of Versed, 100 mcg of fentanyl, 1050 of propofol, 4 mg of Zofran. Additional medication is 30 mg of hydralazine. INTRAVENOUS FLUIDS: 900 mL. COMPLICATIONS: None. CONDITION: Stable. URINE OUTPUT: Not applicable. SPECIMENS: None. FINDINGS: See below. DRAINS: None. INDICATIONS: This is a 53-year-old female with past medical history for paroxysmal atrial flutter. She is on sotalol since October 2016. She did have a cardioversion in October 2016 as well as most recently in November of 2018. She is on Eliquis with her CHADS2-VASc score of 2. 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 Due to her paroxysmal atrial flutter, she was recommended an Electrophysiology study and flutter ablation. CONSENT: Consent was obtained prior to the patient going into the Electrophysiology lab. The patient was informed of the risks, benefits and alternatives to the procedure. Risks include but not limited to sudden cardiac , cardiac arrhythmias, cerebrovascular accident, myocardial infarction, injury to the blood vessels, chamber of the heart or the [place] electrical system where she would need a permanent pacemaker, bleeding and infection. The patient understood these risks and agreed to the procedure as planned. Informed consent was obtained. DESCRIPTION OF THE PROCEDURE: The patient was brought into the Electrophysiology lab in fasting state. She was connected to continuous child monitor. A timeout was performed to ensure patient's identity and procedure correctly. The patient was prepped and draped over the bilateral groins in normal surgical standard fashion. Moderate anesthetic care was given throughout the procedure for patient's comfort level. [place] precautions were maintained throughout the procedure. 10 mL of 1% lidocaine were given in the bilateral groins. Then using modified Seldinger technique, venous access was obtained in the following manner. Of note, I did have to use ultrasound guidance for venous access. The left femoral vein had a 7-[place]aur[place] sheath followed by a Decapolar DF curve Biosense coronary sinus catheter positioned out in the coronary sinus. A 7-[place] sheath followed by a 20-pole Halo catheter positioned around the right atrium. The right femoral vein had an 8-[place] sheath followed by a Biosense DF curve ThermoCool SmartTouch ablation catheter. With the catheters in place, I did do Electrophysiology study with the following findings: The NE interval is 132 milliseconds, QRS 82 milliseconds, QT 396 milliseconds. Sinus cycle length 884 milliseconds, AH 78 milliseconds, HV 48 milliseconds, AV Wenckebach 500 milliseconds, AV node ERP was 600/440. The atrial ERP was 600/290. When before ablation measured the timing across the isthmus line, the coronary sinus proximal pacing measuring out to the lateral side of the right atrium where the ablation or Halo catheter were measured to be 86 and 60 milliseconds. When I paced laterally from the right atrium and measured it to the proximal coronary sinus, I got 84 milliseconds. We then set up to do an empiric atrial flutter ablation. I first did 3D mapping of the His bundle region where I also obtained my AH and HV, then I positioned the ablation catheter along the cavotricuspid isthmus from the tricuspid valve and then gave a series of about 1 minute burn at [address] to the IVC. There was a ridge, so I kind of gave a line on either side of this ridge and then we checked to see if we had block by pacing proximal and measuring the lateral and vice versa and the distance increased to 160, see below. During our waiting period, I did another Electrophysiology study with the following findings: NE interval 142 milliseconds, QRS 80 milliseconds, QT 280 milliseconds, sinus cycle length 844 milliseconds, AH was 90 milliseconds, HV was 48 milliseconds, AV Wenckebach was 490 milliseconds. The AV node ERP was 600/430 and the atrial ERP was 600/280. I placed the ablation catheter lateral to my line and measuring the CS prox on pacing was 178 milliseconds, when I paced the CS prox and measured it to my ablation it was 160 milliseconds indicating that I had successful bidirectional block. All the catheters were then removed from the heart and the sheaths were pulled with manual compression, used to establish hemostasis. IMPRESSION: 1. Successful empiric atrial flutter ablation with bidirectional block along the cavotricuspid isthmus line. 2. Normal atrioventricular manda pathology. PLAN: Monitor patient post-ablation overnight. Continue her Eliquis and sotalol, treat her hypertension and I will see her in 1 month time. I attest to the content of the Intraoperative Record and any orders documented therein. Any exceptions are noted below. ROBBY
== END 2019-01-18 10:08 | disposition home or self-care (01) ==
LOC: ASU 06:21 → 2E 06:21

== ENCOUNTER 2020-06-03 09:32 | Inpatient (IN) ==
[2020-06-03] MEDS ORDERED: SODIUM CHLORIDE 0.9% 1000ML 1,000 ML IV STA (09:39)
[2020-06-03 10:11] LABS: Basophils # (auto) 0.05 K/uL (0-0.2); Basophils % (auto) 0.5 %; Eosinophils # (auto) 0.15 K/uL (0-0.5); Eosinophils % (auto) 1.6 %; Hemoglobin 15.4 g/dL (12.0-16.0); Immature Granulocytes # (auto) 0.03 K/uL (0.00-0.02); Immature Granulocytes % (auto) 0.3 %; Lymphocytes # (auto) 2.06 K/uL (1.2-3.4); Lymphocytes % (auto) 22.3 %; Mean Corpuscular Hemoglobin 29.8 pg (25-34); Mean Corpuscular Hgb Conc 32.8 g/dL (32-36); Mean Corpuscular Volume 90.9 fL (80-100); Monocytes % (auto) 8.7 %; Neutrophils # (auto) 6.14 K/uL (1.4-6.5); Neutrophils % (auto) 66.6 %; Platelet Count 266 K/uL (130-400); RDW Coefficient of Variation 14.5 % (11.5-14.5); RDW Standard Deviation 48.2 fL (36.4-46.3); Red Blood Count 5.17 M/uL (4.2-5.4); White Blood Count 9.23 K/uL (4.8-10.8)
[2020-06-03] MEDS ORDERED: hydrALAZINE HCL 20 MG/ML VIAL IV ONE ×2 (10:15→13:12)
[2020-06-03] MEDS ORDERED: ONDANSETRON INJ 2 MG/ML 2 ML VIAL IV STA ×2 (10:15→11:04)
--- NOTE | 2020-06-03 10:15 | Emergency Department Note ---
Impression & Plan Intractable vomiting with nausea, Severe hypertension ED Provider Note INFORMANT: Patient ED PROVIDER(S): Cole Bernal MD CHIEF COMPLAINT: Dehydration PLAN: Disposition: Admitted Condition: Good MEDICAL DECISION MAKING: Patient presented because of nausea and vomiting and concerns about dehydration. She was found to have significant hypertension. She has no headache or chest pain. She did not tolerate her morning medications due to the nausea and vo miting. She had an IV established. Her ECG was unremarkable with a normal sinus rhythm. The patient had an unremarkable CBC and chemistry panel. She was given IV Zofran for symptom control as well as IV hydralazine. Her nausea vomiting persisted. She was given a second dose of IV Zofran. She was hydrated with normal saline. The patient had unremarkable urinalysis. She was still feeling symptomatic and was given Reglan and Benadryl IV. The patient still had nausea and dry heaves. A CT scan was performed and was unremarkable. She was given a dose of IV Ativan as she is allergic to thioridazine, Phenergan and Compazine were held initially. I discussed further management in the hospital as the patient is unavailable to tolerate oral intake and she still has significant hypertension. She did get a second dose of IV hydralazine. Her case was discussed with the [facility] service. Patient was evaluated in the ER and admitted for further work-up and treatment. Triage Nursing notes reviewed and agree them. Additional history obtained from patient's caregiver Vital Signs: reviewed and remarkable for severe hypertension Differential diagnosis: Etiologies such as gastroenteritis, food borne illness, infections, appendicitis, diverticulitis, inflammatory bowel disease, GI bleed, biliary pathology, neurologic, toxicologic, cardiovascular, as well as others were entertained. Diagnostics interpreted by me: ECG: Twelve-lead ECG reveals a normal sinus rhythm at 62 bpm. There is no evidence of ST elevation or depression. No PACs or PVCs. Normal interval and axis. Cardiac Monitoring: Cardiac monitoring ordered by me: The patient was placed on continuous cardiac monitoring and observed. It revealed a normal sinus rhythm at 65 beats per minute without ectopy or evidence of dysrhythmia. Imaging studies: CT scan of the abdomen pelvis was negative for acute pathology. Consultation(s): [facility], Taylor Franco PA-C with Dr. Washburn. HPI: The patient is a 55 year old female who presents to the Emergency Room with complaints of dehydration. This started a few days ago and is persistent. Pt had seroquel discontinued last week. Increased somnolence and fatigue. The patient also notes the following associated symptoms, nausea and vomiting, mild headache. The patient has found no relieving factors. Current pain is rated as 0/10. Pt denies LOC, headache, fevers, chills, diaphoresis, visual changes, neck pain, chest pain, breathing difficulties, abdominal pain, back pain, melena, hematochezia, urinary symptoms, numbness, weakness, lymphadenopathy, rash, or other complaints. ROS: See above HPI for pertinent positives & negatives. A total of 10 systems reviewed and were otherwise negative. PAST MEDICAL HISTORY:See Below, anticoagulation, hypertension PAST SURGICAL HISTORY:See Below, FAMILY HISTORY:See Below SOCIAL HISTORY:See Below, non-smoker HOME MEDICATIONS:See Below ALLERGIES:See Below VITALS:See Below PHYSICAL EXAMINATION: GENERAL: Awake, tired-appearing, in no distress HENT: Normocephalic, atraumatic. Oropharynx unremarkable. EYES: Normal conjunctiva. Sclera non-icteric. NECK: Inspection normal. Non-tender. Supple. No nuchal rigidity. FROM. No masses. RESPIRATORY: Clear to auscultation. No wheezes. No rales. Normal respiratory effort. CARDIAC: Normal rate. Normal rhythm. No murmurs. No rubs. Extremities warm and well perfused. Pulses equal. No JVD. GI: Soft, non-distended. No tenderness to palpation. No rebound or guarding. No masses. RECTAL: Deferred. MUSCULOSKELETAL: Atraumatic. Chest examination reveals no tenderness. The back is symmetrical on inspection without obvious abnormality. There is no CVA tenderness to palpation. No joint edema. LOWER EXTREMITIES: Calves are equal size bilaterally and non-tender. No edema. No discoloration. NEURO: Normal sensorium. No sensory or motor deficits noted. SKIN: No rash or jaundice noted. Cole Bernal MD Past Med/Surg History Medical History (Updated 06/03/20 @ 14:58 by Cole Bernal MD) Asthma INHALERS DAILY/PRN 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 ON ELIQUIS Bipolar 1 disorder Chronic back pain Degenerative disc disease Depression Fibromyalgia GERD (gastroesophageal reflux disease) Hypertension Hypothyroidism Migraine Morbid obesity Osteoarthritis Schizoaffective disorder Seizure SEIZURES X 2 (); CONTROLLED ON LAMICTAL Sleep apnea 2L N/C HS Spinal stenosis Surgical History History of carpal tunnel release LEFT History of cholecystectomy History of colonoscopy History of endoscopic sinus surgery History of tonsillectomy and adenoidectomy History of tooth extraction ALL UPPER TEETH EXTRACTIONS History of total abdominal hysterectomy and bilateral salpingo-oophorectomy S/P foot surgery, left X2 Status post lumbar spine surgery for decompression of spinal cord + RODS Family History Father Family history of diabetes mellitus Coronary heart disease Mother Lung cancer Sister Alive and well Brother Alive and well Social History Smoking Status: Former smoker Second Hand Exposure: No; Hx Alcohol Use: No Hx Substance Use: No Preferred Language: Andorran Communication Ability: Effective Ham Facer Required: No Beliefs That Will Affect Care: None marital status: Current Living Situation: Alone current occupational status: disabled Feels Safe at Home: Yes Assistive Devices: Cane and Glasses Allergies Allergies Allergy/AdvReac Type Severity Reaction Status Date / Time Hydantoins Allergy Unknown Hives Verified 06/03/20 11:16 phenytoin Allergy Unknown Nausea Verified 06/03/20 11:16 adhesive Allergy RASH, ITCHY Verified 06/03/20 11:16 ethyl alcohol AdvReac Severe Seizure Verified 06/03/20 11:16 thioridazine AdvReac Severe SEIZURES Verified 06/03/20 11:16 Home Meds Home Medications Medication Instructions Recorded Confirmed Breo Ellipta 1 inh INHALATION QAM 05/31/18 06/03/20 Eliquis 5 mg PO BID 05/31/18 06/03/20 albuterol sulfate [ProAir HFA] 2 puff INHALATION Q4H PRN 05/31/18 06/03/20 dicyclomine 10 mg PO TID 05/31/18 06/03/20 furosemide 20 mg PO QAM 05/31/18 06/03/20 lamotrigine [Lamictal] 200 mg PO BID 05/31/18 06/03/20 levothyroxine 200 mcg PO QAM 05/31/18 06/03/20 multivitamin 1 tab PO QAM 05/31/18 06/03/20 sotalol 80 mg PO BID 05/31/18 06/03/20 tizanidine 3 mg PO TID 05/31/18 06/03/20 magnesium oxide 400 mg PO QAM 11/30/18 06/03/20 riboflavin (vitamin B2) [Vitamin 400 mg PO QAM 01/02/19 06/03/20 B-2] buspirone 30 mg PO BID 01/24/19 06/03/20 levothyroxine 50 mcg PO QAM 01/24/19 06/03/20 potassium chloride [Klor-Con 10] 10 meq PO MOTUWETHFR 01/24/19 06/03/20 calcium polycarbophil [Fiber 625 mg PO BID 10/22/19 06/03/20 (calcium polycarbophil)] fluticasone propionate [Flonase 1 spray INTRANASAL QAM 10/22/19 06/03/20 Allergy Relief] losartan 25 mg PO QAM 10/22/19 06/03/20 omeprazole magnesium [Prilosec OTC] 20 mg PO QAM 10/22/19 06/03/20 sertraline 100 mg PO QAM 06/03/20 06/03/20 Results & Data (ED) Vital Signs Vital Signs - 24 hr 06/03/20 09:36 06/03/20 09:49 06/03/20 09:53 Temperature 36.7 C Temperature Source Oral Pulse Rate 78 63 Pulse Rate [Right Finger] Respiratory Rate 20 Respiratory Effort / Characteristics Non-Labored Respiratory Depth Normal Respiratory Pattern Regular Blood Pressure 222/141 H Blood Pressure [Left Arm] Blood Pressure Mean 168 Blood Pressure Mean [Left Arm] Blood Pressure Position Sitting Pulse Oximetry 94 95 Oxygen Delivery Method Room Air Room Air Sepsis Recent Fever Within 48 Hours No Sepsis New/Unexplained Change in Mental Status No Sepsis Action Taken by Nursing No Action Required 06/03/20 10:00 06/03/20 10:10 06/03/20 10:20 Temperature Temperature Source Pulse Rate 58 L 63 59 L Pulse Rate [Right Finger] Respiratory Rate 18 19 19 Respiratory Effort / Characteristics Respiratory Depth Respiratory Pattern Blood Pressure Blood Pressure [Left Arm] Blood Pressure Mean Blood Pressure Mean [Left Arm] Blood Pressure Position Pulse Oximetry Oxygen Delivery Method Sepsis Recent Fever Within 48 Hours Sepsis New/Unexplained Change in Mental Status Sepsis Action Taken by Nursing 06/03/20 10:22 06/03/20 10:30 06/03/20 10:40 Temperature Temperature Source Pulse Rate 61 62 62 Pulse Rate [Right Finger] Respiratory Rate 21 20 19 Respiratory Effort / Characteristics Respiratory Depth Respiratory Pattern Blood Pressure 210/93 H Blood Pressure [Left Arm] Blood Pressure Mean 135 Blood Pressure Mean [Left Arm] Blood Pressure Position Pulse Oximetry Oxygen Delivery Method Sepsis Recent Fever Within 48 Hours Sepsis New/Unexplained Change in Mental Status Sepsis Action Taken by Nursing 06/03/20 10:45 06/03/20 10:46 06/03/20 11:18 Temperature Temperature Source Pulse Rate 68 65 102 H Pulse Rate [Right Finger] Respiratory Rate 21 22 17 Respiratory Effort / Characteristics Respiratory Depth Respiratory Pattern Blood Pressure 208/102 H Blood Pressure [Left Arm] Blood Pressure Mean 154 Blood Pressure Mean [Left Arm] Blood Pressure Position Pulse Oximetry Oxygen Delivery Method Sepsis Recent Fever Within 48 Hours Sepsis New/Unexplained Change in Mental Status Sepsis Action Taken by Nursing 06/03/20 11:43 06/03/20 11:56 06/03/20 12:00 Temperature Temperature Source Pulse Rate 63 60 61 Pulse Rate [Right Finger] Respiratory Rate 23 16 19 Respiratory Effort / Characteristics Respiratory Depth Respiratory Pattern Blood Pressure 208/87 H Blood Pressure [Left Arm] Blood Pressure Mean 119 Blood Pressure Mean [Left Arm] Blood Pressure Position Pulse Oximetry Oxygen Delivery Method Sepsis Recent Fever Within 48 Hours Sepsis New/Unexplained Change in Mental Status Sepsis Action Taken by Nursing 06/03/20 12:30 06/03/20 13:00 06/03/20 13:30 Temperature Temperature Source Pulse Rate 65 65 64 Pulse Rate [Right Finger] Respiratory Rate 19 17 23 Respiratory Effort / Characteristics Respiratory Depth Respiratory Pattern Blood Pressure Blood Pressure [Left Arm] Blood Pressure Mean Blood Pressure Mean [Left Arm] Blood Pressure Position Pulse Oximetry Oxygen Delivery Method Sepsis Recent Fever Within 48 Hours Sepsis New/Unexplained Change in Mental Status Sepsis Action Taken by Nursing 06/03/20 13:51 06/03/20 13:53 06/03/20 14:00 Temperature Temperature Source Pulse Rate 66 66 Pulse Rate [Right Finger] 64 Respiratory Rate 24 21 21 Respiratory Effort / Characteristics Respiratory Depth Respiratory Pattern Blood Pressure 220/113 H Blood Pressure [Left Arm] 220/113 H Blood Pressure Mean 144 Blood Pressure Mean [Left Arm] 148 Blood Pressure Position Pulse Oximetry 97 Oxygen Delivery Method Room Air Sepsis Recent Fever Within 48 Hours Sepsis New/Unexplained Change in Mental Status Sepsis Action Taken by Nursing 06/03/20 14:17 Temperature Temperature Source Pulse Rate 64 Pulse Rate [Right Finger] Respiratory Rate 17 Respiratory Effort / Characteristics Respiratory Depth Respiratory Pattern Blood Pressure 227/119 H Blood Pressure [Left Arm] Blood Pressure Mean 126 Blood Pressure Mean [Left Arm] Blood Pressure Position Pulse Oximetry Oxygen Delivery Method Sepsis Recent Fever Within 48 Hours Sepsis New/Unexplained Change in Mental Status Sepsis Action Taken by Nursing Laboratory Data Result diagrams: 06/03/20 10:00 06/03/20 10:00 Lab Results 06/03/20 06/03/20 06/03/20 Range/Units 10:00 10:00 11:15 WBC 9.23 (4.8-10.8) K/uL RBC 5.17 (4.2-5.4) M/uL Hgb 15.4 (12.0-16.0) g/dL Hct 47.0 (37-47) % MCV 90.9 (80-100) fL MCH 29.8 (25-34) pg MCHC 32.8 (32-36) g/dL RDW Std Deviation 48.2 H (36.4-46.3) fL RDW Coeff of Lor 14.5 (11.5-14.5) % Plt Count 266 (130-400) K/uL MPV 11.0 H (7.4-10.4) fL Immature Gran % (Auto) 0.3 % Neut % (Auto) 66.6 % Lymph % (Auto) 22.3 % [place] % (Auto) 8.7 % Eos % (Auto) 1.6 % Baso % (Auto) 0.5 % Neut # (Auto) 6.14 (1.4-6.5) K/uL Lymph # (Auto) 2.06 (1.2-3.4) K/uL [place] # (Auto) 0.80 H (0.11-0.59) K/uL Eos # (Auto) 0.15 (0-0.5) K/uL Baso # (Auto) 0.05 (0-0.2) K/uL Immature Gran # (Auto) 0.03 H (0.00-0.02) K/uL Sodium 139 (136-145) mmol/L Potassium 3.3 L (3.5-5.1) mmol/L Chloride 101 (98-107) mmol/L Carbon Dioxide 29 (21-32) mmol/L Anion Gap 8.0 (3-11) BUN 9 (7-18) mg/dl Creatinine 0.99 (0.6-1.2) mg/dl Est Cr Clr Drug Dosing 84.9 ml/min Est GFR ( Amer) 73.3 Est GFR (Non-Af Amer) 63.3 BUN/Creatinine Ratio 8.6 L (10-20) Glucose 127 H (70-99) mg/dl Calcium 10.1 (8.5-10.1) mg/dl Total Bilirubin 0.4 (0.2-1) mg/dl AST 18 (15-37) U/L ALT 21 (12-78) U/L Alkaline Phosphatase 145 H (45-117) U/L Troponin I < 0.015 (0-0.045) ng/ml Total Protein 10.0 H (6.4-8.2) gm/dl Albumin 4.4 (3.4-5.0) gm/dl Globulin 5.6 H (2.5-4.0) gm/dl Albumin/Globulin Ratio 0.8 L (0.9-2) Urine Color Yellow Urine Appearance Clear (Clear) Urine pH 5.0 (4.5-7.5) Ur Specific [place] 1.010 (1.000-1.030) Urine Protein Trace H (Negative) Urine Glucose (UA) Negative (Negative) Urine Ketones Trace H (Negative) Urine Blood Negative (Negative) Urine Nitrite Negative (Negative) Urine Bilirubin Negative (Negative) Urine Urobilinogen Negative (Negative) Ur Leukocyte Esterase Negative (Negative) Urine WBC (Auto) 1-5 (0-5) /hpf Urine RBC (Auto) 0-4 (0-4) /hpf U Hyaline Cast (Auto) 1-5 (0-5) /lpf U Epithel Cells (Auto) 20-30 H (0-5) /lpf Urine Bacteria (Auto) Negative (Negative) COVID-19 Eval Order 06/03/20 Range/Units 14:10 WBC (4.8-10.8) K/uL RBC (4.2-5.4) M/uL Hgb (12.0-16.0) g/dL Hct (37-47) % MCV (80-100) fL MCH (25-34) pg MCHC (32-36) g/dL RDW Std Deviation (36.4-46.3) fL RDW Coeff of Lor (11.5-14.5) % Plt Count (130-400) K/uL MPV (7.4-10.4) fL Immature Gran % (Auto) % Neut % (Auto) % Lymph % (Auto) % [place] % (Auto) % Eos % (Auto) % Baso % (Auto) % Neut # (Auto) (1.4-6.5) K/uL Lymph # (Auto) (1.2-3.4) K/uL [place] # (Auto) (0.11-0.59) K/uL Eos # (Auto) (0-0.5) K/uL Baso # (Auto) (0-0.2) K/uL Immature Gran # (Auto) (0.00-0.02) K/uL Sodium (136-145) mmol/L Potassium (3.5-5.1) mmol/L Chloride (98-107) mmol/L Carbon Dioxide (21-32) mmol/L Anion Gap (3-11) BUN (7-18) mg/dl Creatinine (0.6-1.2) mg/dl Est Cr Clr Drug Dosing ml/min Est GFR ( Amer) Est GFR (Non-Af Amer) BUN/Creatinine Ratio (10-20) Glucose (70-99) mg/dl Calcium (8.5-10.1) mg/dl Total Bilirubin (0.2-1) mg/dl AST (15-37) U/L ALT (12-78) U/L Alkaline Phosphatase (45-117) U/L Troponin I (0-0.045) ng/ml Total Protein (6.4-8.2) gm/dl Albumin (3.4-5.0) gm/dl Globulin (2.5-4.0) gm/dl Albumin/Globulin Ratio (0.9-2) Urine Color Urine Appearance (Clear) Urine pH (4.5-7.5) Ur Specific [place] (1.000-1.030) Urine Protein (Negative) Urine Glucose (UA) (Negative) Urine Ketones (Negative) Urine Blood (Negative) Urine Nitrite (Negative) Urine Bilirubin (Negative) Urine Urobilinogen (Negative) Ur Leukocyte Esterase (Negative) Urine WBC (Auto) (0-5) /hpf Urine RBC (Auto) (0-4) /hpf U Hyaline Cast (Auto) (0-5) /lpf U Epithel Cells (Auto) (0-5) /lpf Urine Bacteria (Auto) (Negative) COVID-19 Eval Order Covid19 Done at [facility] Administered Medications Sodium Chloride (Nss 1000ml) 1,000 mls @ 125 mls/hr IV .Q8H STA Stop: 06/03/20 17:38 Last Admin: 06/03/20 10:00 Dose: 125 mls/hr Documented by: [id number] Discontinued Medications Diphenhydramine HCl (Diphenhydramine 50 Mg/Ml Vial) 25 mg IV NOW STA Stop: 06/03/20 12:01 Last Admin: 06/03/20 12:29 Dose: 25 mg Documented by: [id number] Hydralazine HCl (Hydralazine Hcl 20 Mg/Ml Vial) 5 mg IV NOW ONE Stop: 06/03/20 10:16 Last Admin: 06/03/20 10:19 Dose: 5 mg Documented by: [id number] Hydralazine HCl (Hydralazine Hcl 20 Mg/Ml Vial) 5 mg IV NOW ONE Stop: 06/03/20 13:13 Last Admin: 06/03/20 13:55 Dose: 5 mg Documented by: [id number] Sodium Chloride (Nss 1000ml) 500 mls @ 999 mls/hr IV .Q31M ONE Stop: 06/03/20 13:43 Last Admin: 06/03/20 13:51 Dose: 999 mls/hr Documented by: [id number] Lorazepam (Ativan) 0.5 mg in 1 mls @ 1 mls/min IV NOW STA Stop: 06/03/20 13:15 Last Admin: 06/03/20 13:51 Dose: 1 mls/min Documented by: [id number] Metoclopramide HCl (Metoclopramide Hcl Inj 5 Mg/Ml 2 Ml Vial) 10 mg IV NOW STA Stop: 06/03/20 12:01 Last Admin: 06/03/20 12:29 Dose: 10 mg Documented by: [id number] Ondansetron HCl (Ondansetron Inj 2 Mg/Ml 2 Ml Vial) 4 mg IV NOW STA Stop: 06/03/20 10:16 Last Admin: 06/03/20 10:19 Dose: 4 mg Documented by: [id number] Ondansetron HCl (Ondansetron Inj 2 Mg/Ml 2 Ml Vial) 4 mg IV NOW STA Stop: 06/03/20 11:05 Last Admin: 06/03/20 11:10 Dose: 4 mg Documented by: [id number] Discharge Plan Visit Data Chief Complaint: Dehydration Stated Complaint: HAVENT BEEN SLEEPING, SICK, CANT KEEP WATER DOWN ED Provider: Cole Bernal Discharge Problem: Intractable vomiting with nausea, Severe hypertension Patient Disposition: Admitted As Inpatient Forms Stand Alone Forms: [facility] Prescriptions Prescriptions: No Action multivitamin Tablet 1 tab PO QAM RF: 0 lamotrigine [Lamictal] 200 mg Tablet 200 mg PO BID RF: 0 tizanidine 2 mg Tablet 3 mg PO TID RF: 0 sotalol 80 mg Tablet 80 mg PO BID RF: 0 levothyroxine 200 mcg Tablet 200 mcg PO QAM RF: 0 furosemide 20 mg Tablet 20 mg PO QAM RF: 0 albuterol sulfate [ProAir HFA] 90 mcg/actuation Hfa Aerosol Inhaler 2 puff INHALATION Q4H PRN (Reason: Shortness Of Breath) RF: 0 dicyclomine 10 mg Capsule 10 mg PO TID RF: 0 Eliquis 5 mg Tablet 5 mg PO BID RF: 0 Breo Ellipta 100-25 mcg/dose Blister With Device 1 inh INHALATION QAM RF: 0 riboflavin (vitamin B2) [Vitamin B-2] 100 mg Tablet 400 mg PO QAM RF: 0 potassium chloride [Klor-Con 10] 10 mEq Tablet Extended Release 10 meq PO MOTUWETHFR RF: 0 levothyroxine 50 mcg Tablet 50 mcg PO QAM RF: 0 buspirone 30 mg Tablet 30 mg PO BID RF: 0 sertraline 100 mg tablet 100 mg PO QAM RF: 0 magnesium oxide 400 mg magnesium Tablet 400 mg PO QAM RF: 0 losartan 25 mg tablet 25 mg PO QAM RF: 0 calcium polycarbophil [Fiber (calcium polycarbophil)] 625 mg Tablet 625 mg PO BID RF: 0 fluticasone propionate [Flonase Allergy Relief] 50 mcg/actuation [place],Suspension 1 spray INTRANASAL QAM RF: 0 omeprazole magnesium [Prilosec OTC] 20 mg Tablet,Delayed Release (Dr/Ec) 20 mg PO QAM RF: 0 Referrals Referrals: Brian Salas, [Primary Care Provider] -
[2020-06-03 10:33] LABS: Alanine Aminotransferase 21 U/L (12-78); Albumin Level 4.4 gm/dl (3.4-5.0); Aspartate Aminotransferase 18 U/L (15-37); BUN Creatinine Ratio 8.6 (10-20); Blood Urea Nitrogen 9 mg/dl (7-18); Calcium 10.1 mg/dl (8.5-10.1); Carbon Dioxide 29 mmol/L (21-32); Chloride 101 mmol/L (98-107); Creatinine Clr Calc Pharmacy 84.9 ml/min; Est GFR (African American) 73.3; Est GFR (Non-African American) 63.3; Glucose 127 mg/dl (70-99); Potassium 3.3 mmol/L (3.5-5.1); Sodium 139 mmol/L (136-145)
--- NOTE | 2020-06-03 10:34 | Communication Note ---
Date of Service: June 03, 2020 This patient was seen in concert with Dr. Bernal and we discussed and agreed upon the history, physical, assessment, and plan. See attending's note for details. Resident Activity Tracking Resident Involvement: Resident Care Provided Care Provided: Adult ED
[2020-06-03 10:38] LABS: Albumin Globulin Ratio 0.8 (0.9-2); Alkaline Phosphatase 145 U/L (45-117); Bilirubin,Total 0.4 mg/dl (0.2-1); Globulin 5.6 gm/dl (2.5-4.0); Troponin I < 0.015 ng/ml (0-0.045)
[2020-06-03 11:36] LABS: Appearance Urine Clear (Clear); Bacteria Urine Automated Negative (Negative); Bilirubin Urine Negative (Negative); Blood Urine Negative (Negative); Color Urine Yellow; Epithelial Cell Urine Auto 20-30 /lpf (0-5); Glucose Urine UA Negative (Negative); Ketones Urine Trace (Negative); Leukocyte Esterase Urine Negative (Negative); Nitrite Urine Negative (Negative); Protein Urine Trace (Negative); RBC Urine Automated 0-4 /hpf (0-4); Urobilinogen Urine Negative (Negative)
--- NOTE | 2020-06-03 11:52 | CT Scan Report ---
ABDOMEN AND PELVIS CT WITHOUT CONTRAST CT DOSE: 1129.23 mGycm HISTORY: Acute nausea with vomiting nausea and vomiting TECHNIQUE: Multiaxial CT images of the abdomen and pelvis were performed without contrast. A dose lo wering technique was utilized adhering to the principles of ALARA. COMPARISON STUDY: CT abdomen and pelvis 04/10/2018 FINDINGS: Minimal subsegmental bibasilar atelectasis. No pneumatosis or pneumoperitoneum. The imaged inferior cardiac chambers are unremarkable. The spleen, mildly atrophic pancreas, adrenal glands and unenhanced liver appear unremarkable. Cholecystectomy. Unremarkable kidneys. No hydronephrosis. Decompressed or bladder. Hysterectomy. No adnexal mass lesio ns. Mild calcified plaque of the aorta without aneurysm. Mildly prominent retroperitoneal lymph nodes measuring up to 8 mm are likely reactive and have decreased in size from comparison. No bowel obstruction or bowel wall thickening. Moderate fecal retention. Visualized appendix is unrem arkable. No ascites or mesenteric inflammation. Tiny fat filled periumbilical hernia, diastases 1.7 c m. Soft tissues are unremarkable. Bones appear intact. Posterior interbody chel and screw fusion at L3 -L5 with discectomy changes at L4-L5. Laminectomy changes at L4. Left hemilaminectomy at S1. There is no evidence of hardware fracture or loosening. IMPRESSION: 1. No bowel obstruction or bowel wall thickening. 2. Moderate fecal retention. 3. Cholecystectomy and hysterectomy. 4. Additional findings as above. ACT 112: Negative or not required by law. The above report was generated using voice recognition software. It may contain grammatical, syntax o r spelling errors. Electronically signed by: Von Banerjee M.D. 06/03/2020 11:51 AM
[2020-06-03] MEDS ORDERED: METOCLOPRAMIDE HCL INJ 5 MG/ML 2 ML VIAL IV STA (12:00)
[2020-06-03] MEDS ORDERED: diphenhydrAMINE 50 MG/ML VIAL IV STA (12:00)
--- NOTE | 2020-06-03 12:50 | Electrocardiogram Report ---
Test Reason : Blood Pressure : / mmHG Vent. Rate : 062 BPM Atrial Rate : 062 BPM P-R Int : 142 ms QRS Dur : 084 ms QT Int : 400 ms P-R-T Axes : 059 046 073 degrees QTc Int : 406 ms Normal sinus rhythm Normal ECG When compared with ECG of 22-OCT-2019 10:13, No significant change was found Confirmed by Jamar Botello ([id number]) on 06/03/2020 12:50:18 PM Referred By: Confirmed By:Froylan Botello
[2020-06-03] MEDS ORDERED: SODIUM CHLORIDE 0.9% 1000ML 500 ML IV ONE (13:13)
[2020-06-03] MEDS ORDERED: LORazepam 0.5 MG/1 ML VIAL IV STA ×2 (13:14→21:58)
[2020-06-03] MEDS ORDERED: PROMETHAZINE HCL 12.5 MG in SODIUM CHLORIDE 0.9% 50 ML IV STA (14:17)
[2020-06-03] MEDS ORDERED: LABETALOL HCL IV 5 MG/ML 20ML IV STA (14:22)
[2020-06-03] MEDS ORDERED: PROMETHAZINE 12.5 MG/50.5 ML BAG IV STA (14:30)
[2020-06-03] MEDS ORDERED: STAT IV Infusion **Titration per Protocol STA ×2 (15:34→21:58)
[2020-06-03] MEDS ORDERED: NITROGLYCERIN/D5W 100MCG/ML 250 ML IV SCH (15:45)
--- NOTE | 2020-06-03 15:58 | CT Scan Report ---
HEAD CT NONCONTRAST CT DOSE: 614.27 mGy.cm HISTORY: headache, N/V, high BP TECHNIQUE: Multiaxial CT images of the head were performed without the use of intravenous contrast. A utomated exposure control was utilized for this study. A dose lowering technique was utilized adheri ng to the principles of ALARA. Comparison: Head CT 07/23/2019. Findings: Complete opacification of the frontal sinuses, left ethmoid air cells, and left maxillary s inus. Partial opacification of the right ethmoid air cells. This has progressed in the interval. The mastoid air cells are clear. The calvarium and skull base are intact. The ventricles and sulci are wi thin normal limits. There is no mass, hematoma, midline shift, or acute infarct. Impression: No acute intracranial abnormality. Progressive chronic sinus disease as described above. ACT 112: Negative or not required by law. Electronically signed by: Smooth Maya M.D. 06/03/2020 3:57 PM
--- NOTE | 2020-06-03 16:34 | XRay Report ---
XR chest 1V portable CLINICAL HISTORY: Hypertension. COMPARISON STUDY: Chest radiograph October 22, 2019. FINDINGS: Lung volumes are normal. Mild left basilar opacity reflects atelectasis. There is no pneumo thorax or pleural effusion. Cardiac size is normal. Mediastinal contours are normal. There is no evid ence for pulmonary edema. IMPRESSION: No acute cardiopulmonary findings. ACT 112: Negative or not required by law. Electronically signed by: John Daley M.D. 06/03/2020 4:33 PM
--- NOTE | 2020-06-03 16:56 | History & Physical Report ---
Date of Service June 03, 2020 Assessment & Plan (1) Hypertensive emergency: -Admit to ICU -Patient presenting from home with reports of nausea, vomiting, mild headache -In the ED, found to be significantly hypertensive with BPs 220s/110s despite 2 doses of IV hydralazine and IV labetalol -Head CT negative for acute findings -Does not examine to be volume overloaded, saturating well on room air -Discussed with Dr. Golden, will start nitro drip with goal SBP 165 -Resting echo -On losartan 25 mg and furosemide 20mg at home -Patient's untreated MAURO likely contributing, recommend outpatient follow-up with sleep medicine (2) Nausea and vomiting: -Likely secondary to hypertensive emergency -CT ABD/pelvis showing moderate fecal retention which may be contributing as well -Patient had large formed BM in the ED, continue home bowel regimen (3) Paroxysmal A-fib: -S/p cardioversion and ablation in the past -Rhythm controlled on sotalol -Anticoagulated on Eliquis (4) Seizure: -Stable, no recent seizures -Continue Lamictal (5) Schizoaffective disorder: (6) Bipolar I disorder: -Stable, continue home medications (7) DVT prophylaxis: -On Eliquis History of Present Illness Chief Complaint: Nausea, vomiting, headache Primary Care Provider: Brian Salas DO 55-year-old female with PMH paroxysmal atrial 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 s/p cardioversion and ablation and anticoagulated on Eliquis, HTN, untreated MAURO, hypothyroidism, schizoaffective disorder, bipolar disorder, epilepsy, asthma, and other problems listed below who presents the ED for evaluation of nausea, vomiting, headache. Patient reports her symptoms began a few days ago. Reports she has been unable to keep much food or liquid down. She denies hematemesis and coffee-ground emesis. No abdominal pain. Denies diarrhea, bright red bleeding per rectum, dark tarry stools. No fevers or chills. She reports a mild headache. Denies chest pain shortness of breath. No lightheadedness, dizziness, diaphoresis, syncopal events. She denies urinary symptoms. No sick contacts. She reports she was unable take her medications this morning. In the ED, BP significantly elevated 220s/110s despite hydralazine and labetalol. HR stable, saturating well on room air. Labs unremarkable. CT ABD/pelvis shows moderate fecal retention, otherwise unremarkable. Head CT negative for acute intracranial findings. COVID-19 testing negative. Case was discussed with sand molder Dr. Golden, patient will be started on nitro drip and transferred to ICU. Allergies Allergy/AdvReac Type Severity Reaction Status Date / Time Hydantoins Allergy Unknown Hives Verified 06/03/20 11:16 phenytoin Allergy Unknown Nausea Verified 06/03/20 11:16 adhesive Allergy RASH, ITCHY Verified 06/03/20 11:16 ethyl alcohol AdvReac Severe Seizure Verified 06/03/20 11:16 thioridazine AdvReac Severe SEIZURES Verified 06/03/20 11:16 Home Medications Home Medications Medication Instructions Recorded Confirmed Type Breo Ellipta 1 inh INHALATION QAM 05/31/18 06/03/20 History Eliquis 5 mg PO BID 05/31/18 06/03/20 History albuterol sulfate [ProAir HFA] 2 puff INHALATION Q4H PRN 05/31/18 06/03/20 History dicyclomine 10 mg PO TID 05/31/18 06/03/20 History furosemide 20 mg PO QAM 05/31/18 06/03/20 History lamotrigine [Lamictal] 200 mg PO BID 05/31/18 06/03/20 History levothyroxine 200 mcg PO QAM 05/31/18 06/03/20 History multivitamin 1 tab PO QAM 05/31/18 06/03/20 History sotalol 40 mg PO BID 05/31/18 06/03/20 History tizanidine 3 mg PO TID 05/31/18 06/03/20 History magnesium oxide 400 mg PO QAM 11/30/18 06/03/20 History riboflavin (vitamin B2) [Vitamin 400 mg PO QAM 01/02/19 06/03/20 History B-2] buspirone 30 mg PO BID 01/24/19 06/03/20 History levothyroxine 50 mcg PO QAM 01/24/19 06/03/20 History potassium chloride [Klor-Con 10] 10 meq PO MOTUWETHFR 01/24/19 06/03/20 History calcium polycarbophil [Fiber 625 mg PO BID 10/22/19 06/03/20 History (calcium polycarbophil)] fluticasone propionate [Flonase 1 spray INTRANASAL QAM 10/22/19 06/03/20 History Allergy Relief] losartan 25 mg PO QAM 10/22/19 06/03/20 History omeprazole magnesium [Prilosec OTC] 20 mg PO QAM 10/22/19 06/03/20 History docusate sodium 100 mg PO BID 06/03/20 06/03/20 History famotidine 20 mg PO BID 06/03/20 06/03/20 History fluticasone furoate-vilanterol 1 inh INHALATION DAILY 06/03/20 06/03/20 History [Breo Ellipta] gabapentin 300 mg PO HS 06/03/20 06/03/20 History sertraline 150 mg PO QAM 06/03/20 06/03/20 History Past Med/Surg History Medical History Anxiety Asthma INHALERS DAILY/PRN Bipolar 1 disorder Chronic back pain Degenerative disc disease Depression Depression Dyslipidemia Epilepsy Fibromyalgia GERD (gastroesophageal reflux disease) Hypertension Hypothyroidism IBS (irritable bowel syndrome) Migraine Morbid obesity Osteoarthritis Paroxysmal A-fib Schizoaffective disorder Seizure SEIZURES X 2 (); CONTROLLED ON LAMICTAL Sleep apnea 2L N/C HS Spinal stenosis Surgical History History of carpal tunnel release LEFT History of cholecystectomy History of colonoscopy History of endoscopic sinus surgery History of tonsillectomy and adenoidectomy History of tooth extraction ALL UPPER TEETH EXTRACTIONS History of total abdominal hysterectomy and bilateral salpingo-oophorectomy S/P foot surgery, left X2 Status post lumbar spine surgery for decompression of spinal cord + RODS Family History Father Family history of diabetes mellitus Coronary heart disease Mother Lung cancer Sister Alive and well Brother Alive and well Social History Smoking Status: Former smoker Second Hand Exposure: No; Hx Alcohol Use: No Hx Substance Use: No Preferred Language: Armenian Communication Ability: Effective 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 Required: No Beliefs That Will Affect Care: None marital status: Current Living Situation: Alone current occupational status: disabled Feels Safe at Home: Yes Safety Concerns: Feels Safe At This Time Assistive Devices: Cane Review of Systems Review of Systems: ROS per HPI, all other systems reviewed and negative Physical Exam Constitutional: WD/WN, vitals as above + obese Eyes: PERRL, conjunctivae normal, anicteric sclerae ENMT: external ear and nose normal, oropharynx normal Respiratory: normal respiratory effort; no respiratory distress Auscultation: + diminished lung sounds (Bilateral) Cardiovascular: Rate/Rhythm: regular rate and regular rhythm Vessels: normal peripheral pulses Extremities: + edema (Trace edema BLE) Gastrointestinal (Abdomen): normal bowel sounds, soft, nontender, no hepatosplenomegaly Musculoskeletal: no cyanosis or clubbing, extremities motor strength 5/5 Skin: no rashes, warm and dry Neurologic: PERRL, EOMI, accommodation nl, no face palsy, no dysarthria Psychiatric: A+Ox3, euthymic affect Insight: + limited insight Results & Data Results & Data ([facility]) Vital Signs (Past 12 Hours) Vital Signs Temp Pulse Pulse Resp BP BP Pulse Ox 06/03/20 16:30 20 203/116 H 06/03/20 16:00 68 17 192/93 H 99 06/03/20 15:51 64 22 191/94 H 98 06/03/20 15:21 61 19 225/104 H 96 06/03/20 15:20 70 12 06/03/20 14:30 73 24 06/03/20 14:18 66 16 06/03/20 14:17 64 17 227/119 H 06/03/20 14:00 66 21 06/03/20 13:53 66 21 220/113 H 06/03/20 13:51 64 24 220/113 H 97 06/03/20 13:30 64 23 06/03/20 13:00 65 17 06/03/20 12:30 65 19 06/03/20 12:00 61 19 06/03/20 11:56 60 16 208/87 H 06/03/20 11:43 63 23 06/03/20 11:18 102 H 17 06/03/20 10:46 65 22 06/03/20 10:45 68 21 208/102 H 06/03/20 10:40 62 19 06/03/20 10:30 62 20 06/03/20 10:22 61 21 210/93 H 06/03/20 10:20 59 L 19 06/03/20 10:10 63 19 06/03/20 10:00 58 L 18 06/03/20 09:53 63 06/03/20 09:49 95 06/03/20 09:36 36.7 C 78 20 222/141 H 94 Laboratory Results Short CBC 06/03/20 Range/Units 10:00 WBC 9.23 (4.8-10.8) K/uL Hgb 15.4 (12.0-16.0) g/dL Hct 47.0 (37-47) % Plt Count 266 (130-400) K/uL BMP 06/03/20 10:00 Sodium 139 Potassium 3.3 L Chloride 101 Carbon Dioxide 29 BUN 9 Creatinine 0.99 Glucose 127 H Calcium 10.1 Cardiac Enzymes 06/03/20 Range/Units 10:00 Troponin I < 0.015 (0-0.045) ng/ml Liver Function 06/03/20 Range/Units 10:00 Total Bilirubin 0.4 (0.2-1) mg/dl AST 18 (15-37) U/L ALT 21 (12-78) U/L Alkaline Phosphatase 145 H (45-117) U/L Albumin 4.4 (3.4-5.0) gm/dl Urine 06/03/20 Range/Units 11:15 Urine Color Yellow Urine Appearance Clear (Clear) Urine pH 5.0 (4.5-7.5) Ur Specific [place] 1.010 (1.000-1.030) Urine Protein Trace H (Negative) Urine Glucose (UA) Negative (Negative) Diagnostic Findings CT ABD/PELVIS IMPRESSION: 1. No bowel obstruction or bowel wall thickening. 2. Moderate fecal retention. 3. Cholecystectomy and hysterectomy. 4. Additional findings as above. Head CT Impression: No acute intracranial abnormality. Progressive chronic sinus disease as described above. CXR IMPRESSION: No acute cardiopulmonary findings. Code Status & VTE Plan VTE Prophylaxis Plan VTE Prophylaxis will be ordered: No Supervising Physician Co-Signing Physician Notes Attending addendum: The patient was seen and examined in emergency room She has been complaining of epigastric discomfort with nausea and vomiting for the last few days Also has headache but without any other associated symptoms Denies any chest pain and/or palpitation, has any shortness of breath On examination She is obese and is in distress at rest due to abdominal discomfort and headache Her blood pressure noted to be very high Chest-clear to auscultate bilaterally Heart-S1-S2, regular Abdomen-benign Extremities-trace edema bilaterally 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 No focal sensory and motor deficit appreciated Admission labs, EKG and imaging studies reviewed Has hypertensive emergency with headache, nausea and vomiting-started with intravenous nitroprusside and was admitted to ICU Obstructive sleep apnea has been using any CPAP Paroxysmal atrial 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 Seizure disorder Agree with assessment and plan as outlined above by Sherine Washburn
[2020-06-03] MEDS ORDERED: ICU PROTOCOL FOR HYPERGLYCEMIA PRN (17:47)
--- NOTE | 2020-06-03 19:36 | Critical Care Consultation ---
Date of Consultation June 03, 2020 Assessment & Plan (1) Hypertensive emergency: EKG 06/03/2020: Normal sinus rhythm, no ST-T wave changes appreciated, normal axis, U wave appreciated. QTc 406 --Hypertensive emergency Systolic blood pressure in the 220s/110s CT head negative, troponin negative, creatinine within normal limit Decrease the blood pressure by 25% of MAP Goal target systolic blood pressure 165 the next 24 hours Continue with nitroglycerin drip. Resume p.o. medications once patient is able to take p.o. Follow-up metanephrines in the serum to rule out pheochromocytoma --History of A. fib On apixaban Sotalol 40 mg twice daily at home --Morbid obesity with probable MAURO MAURO might be playing a role in her uncontrolled hypertension BiPAP trial while in the hospital Polysomnography as an outpatient --History of seizures On lamotrigine at home Continue with p.o. medication --History of asthma Not in exacerbation Continue with Breo --Hypothyroidism Continue with levothyroxine --Seasonal affective disorder with bipolar 1 disorder Continue with buspirone --Hypokalemia Being replaced --Prophylaxis VTE: Apixaban GI: Pepcid Lines: Peripheral Diet: Cardiac Plan: Goal systolic blood pressure in the next 24 hours 165. Continue with nitro drip Antiemetic Pain medication for headache I have personally spent 53 minutes of critical care time in the direct management of this patient. This is a life/limb threatening event. This includes time spent evaluating patient, direct bedside care, chart review, placing orders, interpretation of diagnostic studies, discussion with consultants, patient, and family members, as well as other required patient management activities. This time is exclusive of all separately billable procedures, and teaching time and separate from and in addition to any other critical care service time. Please note the above document was generated using voice recognition software. It may contain grammatical, syntax or spelling errors. (2) Intractable vomiting with nausea: (3) Morbid obesity: (4) Paroxysmal A-fib: History of Present Illness Attending Physician: Argelia Washburn MD History of Present Illness [id number] with past medical history of paroxysmal A. fib status post cardioversion and ablation on apixaban, hypertension untreated MAURO, hypothyroidism, schizoaffective disorder, epilepsy presented to the ED with complaints of nausea and vomiting. Patient stated this started couple of days ago. Denies any hematemesis, no hemoptysis. Denies any abdominal pain, no blurry vision. No fever or chills. No shortness of breath. No palpitation, no diaphoresis. No recent travel history. In the ED patient got multiple doses of hydralazine and labetalol but the systolic blood pressure was still high. Patient states that she has episodes similar to this couple of years ago. On asking whether she has episodes of palpitation flushing and headache, she is not able to confirm that. Social history: Non-smok does not take any [id number] medications.er, denies any illicit drug use, No family history of pheochromocytoma. Allergies Allergy/AdvReac Type Severity Reaction Status Date / Time Hydantoins Allergy Unknown Hives Verified 06/03/20 11:16 phenytoin Allergy Unknown Nausea Verified 06/03/20 11:16 adhesive Allergy RASH, ITCHY Verified 06/03/20 11:16 ethyl alcohol AdvReac Severe Seizure Verified 06/03/20 11:16 thioridazine AdvReac Severe SEIZURES Verified 06/03/20 11:16 Home Medications Home Medications Medication Instructions Recorded Confirmed Type Breo Ellipta 1 inh INHALATION QAM 05/31/18 06/03/20 History Eliquis 5 mg PO BID 05/31/18 06/03/20 History albuterol sulfate [ProAir HFA] 2 puff INHALATION Q4H PRN 05/31/18 06/03/20 History dicyclomine 10 mg PO TID 05/31/18 06/03/20 History furosemide 20 mg PO QAM 05/31/18 06/03/20 History lamotrigine [Lamictal] 200 mg PO BID 05/31/18 06/03/20 History levothyroxine 200 mcg PO QAM 05/31/18 06/03/20 History multivitamin 1 tab PO QAM 05/31/18 06/03/20 History sotalol 40 mg PO BID 05/31/18 06/03/20 History tizanidine 3 mg PO TID 05/31/18 06/03/20 History magnesium oxide 400 mg PO QAM 11/30/18 06/03/20 History riboflavin (vitamin B2) [Vitamin 400 mg PO QAM 01/02/19 06/03/20 History B-2] buspirone 30 mg PO BID 01/24/19 06/03/20 History levothyroxine 50 mcg PO QAM 01/24/19 06/03/20 History potassium chloride [Klor-Con 10] 10 meq PO MOTUWETHFR 01/24/19 06/03/20 History calcium polycarbophil [Fiber 625 mg PO BID 10/22/19 06/03/20 History (calcium polycarbophil)] fluticasone propionate [Flonase 1 spray INTRANASAL QAM 10/22/19 06/03/20 History Allergy Relief] losartan 25 mg PO QAM 10/22/19 06/03/20 History omeprazole magnesium [Prilosec OTC] 20 mg PO QAM 10/22/19 06/03/20 History docusate sodium 100 mg PO BID 06/03/20 06/03/20 History famotidine 20 mg PO BID 06/03/20 06/03/20 History fluticasone furoate-vilanterol 1 inh INHALATION DAILY 06/03/20 06/03/20 History [Breo Ellipta] gabapentin 300 mg PO HS 06/03/20 06/03/20 History sertraline 150 mg PO QAM 06/03/20 06/03/20 History Patient History Medical History Anxiety Asthma INHALERS DAILY/PRN Bipolar 1 disorder Chronic back pain Degenerative disc disease Depression Depression Dyslipidemia Epilepsy Fibromyalgia GERD (gastroesophageal reflux disease) Hypertension Hypothyroidism IBS (irritable bowel syndrome) Migraine Morbid obesity Osteoarthritis Paroxysmal A-fib Schizoaffective disorder Seizure SEIZURES X 2 (); CONTROLLED ON LAMICTAL Sleep apnea 2L N/C HS Spinal stenosis Surgical History History of carpal tunnel release LEFT History of cholecystectomy History of colonoscopy History of endoscopic sinus surgery History of tonsillectomy and adenoidectomy History of tooth extraction ALL UPPER TEETH EXTRACTIONS History of total abdominal hysterectomy and bilateral salpingo-oophorectomy S/P foot surgery, left X2 Status post lumbar spine surgery for decompression of spinal cord + RODS Family History Father Family history of diabetes mellitus Coronary heart disease Mother Lung cancer Sister Alive and well Brother Alive and well Social History Smoking Status: Former smoker Second Hand Exposure: No; Hx Alcohol Use: No Hx Substance Use: No Preferred Language: Luxembourgish Communication Ability: Effective Hydrotel Operator Required: No Beliefs That Will Affect Care: None marital status: Current Living Situation: Alone current occupational status: disabled Feels Safe at Home: Yes Safety Concerns: Feels Safe At This Time Assistive Devices: Cane Review of Systems Review of Systems: All systems reviewed & are unremarkable except as noted in HPI & below Physical Exam Physical Exam: Constitutional: No acute distress HEENT: EOMI, PERRLA Respiratory system: Decreased air entry bilaterally, no wheeze, no rhonchi, no crackles CVS: S1-S2 positive, no murmurs or gallops Abdomen: Soft, nontender, nondistended, positive bowel sounds x4, obese Extremities: +2 pulses bilaterally radialis/ dorsalis pedis, no cyanosis, no edema Neuro: Awake alert oriented x3 Psych: Normal mood and affect G/U: No [place] Skin: no rashes, warm and dry Lymphatic: no cervical or axillary lymphadenopathy Results & Data Results & Data ([facility]) Vital Signs (Past 12 Hours) Vital Signs Temp Pulse Pulse Resp BP BP Pulse Ox 06/03/20 18:22 37 C 67 20 240/116 H 95 06/03/20 18:01 73 22 95 06/03/20 17:59 72 20 213/120 H 95 06/03/20 17:45 70 19 95 06/03/20 17:43 67 20 240/116 H 94 06/03/20 17:37 37 C 20 95 06/03/20 17:09 72 18 236/108 H 06/03/20 17:00 19 06/03/20 16:56 20 221/117 H 06/03/20 16:55 17 06/03/20 16:50 30 H 06/03/20 16:45 21 06/03/20 16:40 18 06/03/20 16:35 19 06/03/20 16:30 20 203/116 H 06/03/20 16:00 68 17 192/93 H 99 06/03/20 15:51 64 22 191/94 H 98 06/03/20 15:21 61 19 225/104 H 96 06/03/20 15:20 70 12 06/03/20 14:30 73 24 06/03/20 14:18 66 16 06/03/20 14:17 64 17 227/119 H 06/03/20 14:00 66 21 06/03/20 13:53 66 21 220/113 H 06/03/20 13:51 64 24 220/113 H 97 06/03/20 13:30 64 23 06/03/20 13:00 65 17 06/03/20 12:30 65 19 06/03/20 12:00 61 19 06/03/20 11:56 60 16 208/87 H 06/03/20 11:43 63 23 06/03/20 11:18 102 H 17 06/03/20 10:46 65 22 06/03/20 10:45 68 21 208/102 H 06/03/20 10:40 62 19 06/03/20 10:30 62 20 06/03/20 10:22 61 21 210/93 H 06/03/20 10:20 59 L 19 06/03/20 10:10 63 19 06/03/20 10:00 58 L 18 06/03/20 09:53 63 06/03/20 09:49 95 06/03/20 09:36 36.7 C 78 20 222/141 H 94 06/03/20 10:00 06/03/20 10:00 Coding Level of Care Code Critical Care 1st 30-74 mins Diagnoses Hypertensive emergency I16.1 Intractable vomiting with nausea R11.2 Morbid obesity E66.01 Paroxysmal A-fib I48.0 Time Spent (min) 53
[2020-06-03] MEDS: ONDANSETRON INJ 2 MG/ML 2 ML VIAL IV PRN (19:47)
[2020-06-03] MEDS: POTASSIUM CHLORIDE / WTR 10 MEQ/100 ML PLCT IV SCH ×4 (19:47→23:27)
[2020-06-03] MEDS ORDERED: FAMOTIDINE 20 MG TAB PO SCH (21:00)
[2020-06-03] MEDS: niCARdipine 25 MG in SODIUM CHLORIDE 0.9% 240 ML IV SCH (22:25)
[2020-06-03] MEDS: SOTALOL HCL 80 MG TAB PO SCH (22:36)
[2020-06-03] MEDS: DICYCLOMINE HCL 10 MG CAP PO SCH (22:37)
[2020-06-03] MEDS: busPIRone 15 MG TAB PO SCH (22:37)
[2020-06-03] MEDS: GABAPENTIN 300 MG CAP PO SCH (22:37)
[2020-06-03] MEDS: lamoTRIgine 100 MG TAB PO SCH (22:37)
[2020-06-03] MEDS: APIXABAN 5 MG TABLET PO SCH (22:37)
[2020-06-03] MEDS: DOCUSATE SODIUM 100 MG CAP PO SCH (22:40)
[2020-06-04] MEDS ORDERED: LORazepam 0.5 MG/1 ML VIAL IV STA (00:35)
[2020-06-04] MEDS: POTASSIUM CHLORIDE / WTR 10 MEQ/100 ML PLCT IV SCH ×5 (00:37→08:06)
[2020-06-04] MEDS: niCARdipine 25 MG in SODIUM CHLORIDE 0.9% 240 ML IV SCH ×10 (01:13→23:45)
[2020-06-04] MEDS ORDERED: Nursing to Pharmacy Communication SCH ×2 (01:15→04:00)
[2020-06-04 03:48] LABS: Hematocrit (blood only) 42.8 % (37-47); Hemoglobin 13.9 g/dL (12.0-16.0); Mean Corpuscular Hemoglobin 29.7 pg (25-34); Mean Corpuscular Hgb Conc 32.5 g/dL (32-36); Mean Corpuscular Volume 91.5 fL (80-100); Mean Platelet Volume 10.6 fL (7.4-10.4); Platelet Count 211 K/uL (130-400); RDW Coefficient of Variation 14.8 % (11.5-14.5); Red Blood Count 4.68 M/uL (4.2-5.4)
[2020-06-04] MEDS: SOTALOL HCL 80 MG TAB PO SCH ×2 (03:54→21:07)
--- NOTE | 2020-06-04 04:00 | Communication Note ---
Date of Service: June 04, 2020 0350: Patient was noted to have increasing tachycardia with rates in the 120s. Shortly after, patient jumped into the 160s. EKG confirms suspicion of A. fib with RVR. Patient does carry history of the same. Patient is on multiple previous medications for hypertension. I did discuss medications with pharmacy. It was decided on for IV doses of metoprolol. The patient did receive her a.m. dose of sotalol as well. We did provide additional doses of metoprolol x4. Patient would decrease her rate temporarily, then 1 had return into the 130s to 140s. She maintained her blood pressure throughout. The Cardene drip was discontinued during the doses of metoprolol. Crash cart at bedside in the event of need for cardioversion. Considering addition of esmolol, however would be concerned given her ongoing doses of sotalol. I have personally spent 32 minutes of critical care time in the direct management of this patient. This is a life/limb threatening event. This includes time spent evaluating patient, direct bedside care, chart review, placing orders, interpretation of diagnostic studies, discussion with consultants, patient, and family members, as well as other required patient management activities. This time is exclusive of all separately billable procedures, and teaching time and separate from and in addition to any other critical care service time. Coding Level of Care Code Critical Care jose [email or web address] 30 min Time Spent (min) 32
[2020-06-04] MEDS ORDERED: METOPROLOL TARTRATE 1 MG/ML VIAL IV STA ×4 (04:04→06:14)
[2020-06-04] MEDS ORDERED: METOPROLOL TARTRATE 1 MG/ML VIAL IV ONE (04:05)
[2020-06-04] MEDS: ONDANSETRON INJ 2 MG/ML 2 ML VIAL IV PRN ×2 (04:13→19:53)
[2020-06-04 04:16] LABS: Calcium 8.9 mg/dl (8.5-10.1); Creatinine Clr Calc Pharmacy 126.9 ml/min; Est GFR (African American) 112.5; Est GFR (Non-African American) 97.1; Magnesium 2.1 mg/dl (1.8-2.4); Phosphorus 2.1 mg/dl (2.5-4.9); Potassium 3.2 mmol/L (3.5-5.1)
[2020-06-04] MEDS ORDERED: POTASSIUM PHOS 3 MMOL/1 ML INFUSION IV STA (04:19)
[2020-06-04] MEDS ORDERED: POTASSIUM PHOSPHATE 21 MMOL in SODIUM CHLORIDE 0.9% 500 ML IV ONE (05:00)
[2020-06-04] MEDS: LEVOTHYROXINE SODIUM 200 MCG TABLET PO SCH (05:45)
[2020-06-04] MEDS: LEVOTHYROXINE SODIUM 50 MCG TABLET PO SCH (05:45)
[2020-06-04] MEDS: busPIRone 15 MG TAB PO SCH ×2 (08:09→21:07)
[2020-06-04] MEDS: MULTIVITAMIN TAB PO SCH (08:09)
[2020-06-04] MEDS: DICYCLOMINE HCL 10 MG CAP PO SCH ×3 (08:09→21:08)
[2020-06-04] MEDS: APIXABAN 5 MG TABLET PO SCH ×2 (08:09→21:07)
[2020-06-04] MEDS: lamoTRIgine 100 MG TAB PO SCH ×2 (08:10→21:07)
[2020-06-04] MEDS: SERTRALINE HCL 50 MG TABLET PO SCH (08:11)
[2020-06-04] MEDS: DOCUSATE SODIUM 100 MG CAP PO SCH ×2 (08:12→21:08)
[2020-06-04] MEDS: PANTOprazole 40 MG TAB PO SCH (08:12)
[2020-06-04] MEDS: MAGNESIUM OXIDE 400 MG TAB PO SCH (08:12)
[2020-06-04] MEDS: FLUTICASONE/VILANTEROL 100/25MCG 14 PUFFS/INHALER INH SCH (08:13)
[2020-06-04] MEDS ORDERED: NON-FORMULARY MEDICATION (Riboflavin (Vitamin B2) [Vitamin B-2] 100 mg Tablet) PO SCH (09:00)
[2020-06-04] MEDS ORDERED: FLUTICASONE/VILANTEROL 100/25MCG 14 PUFFS/INHALER INH SCH (09:00)
--- NOTE | 2020-06-04 09:29 | Critical Care Consultation ---
Date of Consultation June 04, 2020 Assessment & Plan (1) Admitted to intensive care unit: Reason Critically Ill: 55 yo woman with history of hypertension who presented to the ED with hypertensive emergency. Her systolic blood pressures were 220s, and diastolics were 140s. She was started on a nitroprusside drip, which a goal systolic BP of 165 (25% of MAP). Her blood pressure remain above goal on the nitro drip, and it was discontinued in favor of a nicardipine drip. Overnight she went into A-fib with RVR, at which time her nicardipine drip was discontinued and she was given a total of four IV pushes of Lopressor 5mg. She converted to sinus rhythm at 6:30am today, although her HR continues to range from 100-150 bpm. For her blood pressure management, we have resumed her home sotalol and losartan. Her goal SBP will remain at 160-165 until 5pm this evening, at which time it will be safe to lower her pressures further. Neuro: [facility] ICU: negative * Hx Bipolar I disorder and schizoaffective disease - continue home BuSpar, sertraline, lamictal - once medically stable or upon discharge, consider discontinuation of SSRI in bipolar disorder due to risk of induced raphael * Hx Seizure - continue home Lamictal * Headache - suspect secondary to elevated BP - prn Tylenol for pain - blood pressure management as below Cardiac: * Atrial Fibrillation with RVR - patient now in sinus rhythm - anticoagulated on Apixaban - continue home sotalol for rate control - continue cardiac monitoring * Hypertensive Emergency - systolic BP 220s, diastolic 140s on admission; complaining of headache - goal systolic BP 160-165 until 5pm today; after this time safe to achieve tighter control - initially started on nitroprusside drip, discontinued in favor of nicardipine drip, now on home regimen only - CT head negative, troponin negative, creatinine within normal limit. EKG without ST segment changes - ECHO today, read pending - home medication regimen consists of losartan 25mg, and sotalol 40mg BID; patient insists she is compliant - may be secondary to pheochromocytoma. urine and plasma metanephrines pending. Patient with headache, although unclear if it is episodic in nature. She is not diaphoretic on exam. Patient is tachycardic. Respiratory: * Hx Asthma - continue home Breo inhaler - patient denies any recent hospitalizations for her asthma - no currently in exacerbation * Morbid obesity with probable MAURO - suspect MAURO might be playing a role in her uncontrolled hypertension - BiPAP trial while in the hospital - recommend Polysomnography as an outpatient - history of tobacco use GI: - heart healthy diet - continue home Colace and Bentyl 10mg TID - continue Protonix 40mg RENAL/LYTES: - Cr normal on admission - replace electrolytes as necessary : - patient with good urine output overnight - no issues ENDO: * Hypothyroidism - continue home dose levothyroxine HEME: - hemoglobin normal ID: * Leukocytosis - WBC 13.5 - suspect secondary to physiology stress response; no concern for infection at this time; no concern for infection - trend CBC - COVID 19 neg - Nasal MRSA positive, on contact precautions LINES/IV ACCESS: PIV CODE STATUS: full DVT PROPHYLAXIS: SCDs, on apixaban Thank you for allowing us to participate in the care of this patient. Please refer to my attending physician's documentation for any further recommendations. Supervising Physician Co-Signing Physician Notes Dr Randle was the resident-physician during care of patient. I separately evaluated patient for meyer portions of the history and the exam. I was present during the critical portion of medical decision making, and I discussed the case with the resident. I generally agree with the findings and plan except for any additions/exceptions noted. Patient seen and examined at bedside. No acute distress, overnight patient had A. fib with RVR for which she got total 20 mg of metoprolol. Patient still complaining of nausea but it is better controlled. She complains of mild headache. Denies any blurry vision. Her drip has been off early in the morning. She was given losartan. Her blood pressure was fairly controlled. But later in the evening patient's blood pressure again started to creep up and she was started back on nicardipine drip. Patient denies any chest pain. Continue with blood pressure monitoring. The goal blood pressure is systolic blood pressure 160 by the end of the day. And then gradually we can go down to systolic blood pressure of 140 by tomorrow. Hypokalemia and hypophosphatemia has been replaced. In/out: +1868, urine output 1450 I have personally spent 31 minutes of critical care time in the direct management of this patient. This is a life/limb threatening event. This includes time spent evaluating patient, direct bedside care, chart review, placing orders, interpretation of diagnostic studies, discussion with consultants, patient, and/or family members regarding treatment decisions, as well as other required patient management activities. This time is exclusive of all separately billable procedures, and teaching time and separate from and in addition to any other critical care service time. History of Present Illness Requesting Physician: Patient reports ongoing mild headache; her nausea has resolved. Although she is not able to name her home medications, she insists she is compliant, denying any missed doses. She reports being a heavy smoker in the past (at one time she smoked 2 packs per day), but was able to quit 10 years ago. Attending Physician: Theresa Mendoza DO Allergies Allergy/AdvReac Type Severity Reaction Status Date / Time Hydantoins Allergy Unknown Hives Verified 06/03/20 11:16 phenytoin Allergy Unknown Nausea Verified 06/03/20 11:16 adhesive Allergy RASH, ITCHY Verified 06/03/20 11:16 ethyl alcohol AdvReac Severe Seizure Verified 06/03/20 11:16 thioridazine AdvReac Severe SEIZURES Verified 06/03/20 11:16 Home Medications Home Medications Medication Instructions Recorded Confirmed Type Breo Ellipta 1 inh INHALATION QAM 05/31/18 06/03/20 History Eliquis 5 mg PO BID 05/31/18 06/03/20 History albuterol sulfate [ProAir HFA] 2 puff INHALATION Q4H PRN 05/31/18 06/03/20 History dicyclomine 10 mg PO TID 05/31/18 06/03/20 History furosemide 20 mg PO QAM 05/31/18 06/03/20 History lamotrigine [Lamictal] 200 mg PO BID 05/31/18 06/03/20 History levothyroxine 200 mcg PO QAM 05/31/18 06/03/20 History multivitamin 1 tab PO QAM 05/31/18 06/03/20 History sotalol 40 mg PO BID 05/31/18 06/03/20 History tizanidine 3 mg PO TID 05/31/18 06/03/20 History magnesium oxide 400 mg PO QAM 11/30/18 06/03/20 History riboflavin (vitamin B2) [Vitamin 400 mg PO QAM 01/02/19 06/03/20 History B-2] buspirone 30 mg PO BID 01/24/19 06/03/20 History levothyroxine 50 mcg PO QAM 01/24/19 06/03/20 History potassium chloride [Klor-Con 10] 10 meq PO MOTUWETHFR 01/24/19 06/03/20 History calcium polycarbophil [Fiber 625 mg PO BID 10/22/19 06/03/20 History (calcium polycarbophil)] fluticasone propionate [Flonase 1 spray INTRANASAL QAM 10/22/19 06/03/20 History Allergy Relief] losartan 25 mg PO QAM 10/22/19 06/03/20 History omeprazole magnesium [Prilosec OTC] 20 mg PO QAM 10/22/19 06/03/20 History docusate sodium 100 mg PO BID 06/03/20 06/03/20 History famotidine 20 mg PO BID 06/03/20 06/03/20 History fluticasone furoate-vilanterol 1 inh INHALATION DAILY 06/03/20 06/03/20 History [Breo Ellipta] gabapentin 300 mg PO HS 06/03/20 06/03/20 History sertraline 150 mg PO QAM 06/03/20 06/03/20 History Patient History Medical History Anxiety Asthma INHALERS DAILY/PRN Bipolar 1 disorder Chronic back pain Degenerative disc disease Depression Depression Dyslipidemia Epilepsy Fibromyalgia GERD (gastroesophageal reflux disease) Hypertension Hypothyroidism IBS (irritable bowel syndrome) Migraine Morbid obesity Osteoarthritis Paroxysmal A-fib Schizoaffective disorder Seizure SEIZURES X 2 (); CONTROLLED ON LAMICTAL Sleep apnea 2L N/C HS Spinal stenosis Surgical History History of carpal tunnel release LEFT History of cholecystectomy History of colonoscopy History of endoscopic sinus surgery History of tonsillectomy and adenoidectomy History of tooth extraction ALL UPPER TEETH EXTRACTIONS History of total abdominal hysterectomy and bilateral salpingo-oophorectomy S/P foot surgery, left X2 Status post lumbar spine surgery for decompression of spinal cord + RODS Family History Father Family history of diabetes mellitus Coronary heart disease Mother Lung cancer Sister Alive and well Brother Alive and well Social History Smoking Status: Former smoker Second Hand Exposure: No; Hx Alcohol Use: No Hx Substance Use: No Preferred Language: Uzbek Communication Ability: Effective Induction Machine Setter Required: No Beliefs That Will Affect Care: None marital status: Current Living Situation: Alone current occupational status: disabled Feels Safe at Home: Yes Safety Concerns: Feels Safe At This Time Assistive Devices: Cane and Glasses Review of Systems Eyes: no blurry vision Respiratory: no dyspnea Cardiovascular: no chest pain Gastrointestinal: no nausea Neurologic: + headache(s) Physical Exam Constitutional: + obese and + combative; no acute distress and not diaphoretic Eyes: + anicteric sclerae and EOM intact bilaterally ENMT: external ear and nose normal, oropharynx normal Neck: normal visual inspection and trachea midline + thick neck Respiratory: normal respiratory effort, lungs clear to auscultation Cardiovascular: RRR, no murmur, no edema Heart Sounds: normal S1 and normal S2 Extremities: + pedal edema Gastrointestinal (Abdomen): normal bowel sounds, soft, nontender, no hepatosplenomegaly Skin: no rashes, warm and dry Psychiatric: A+Ox3, euthymic affect Results & Data Results & Data ([facility]) Vital Signs (Past 12 Hours) Vital Signs Temp Pulse Resp BP Pulse Ox 06/04/20 06:31 101 H 20 171/111 H 97 06/04/20 06:26 152 H 159/114 H 06/04/20 06:15 136 H 30 H 170/118 H 97 06/04/20 06:01 146 H 30 H 147/107 H 98 06/04/20 05:46 152 H 28 H 159/114 H 97 06/04/20 05:45 146 H 154/97 H 06/04/20 05:30 143 H 24 154/108 H 95 06/04/20 05:16 152 H 29 H 147/103 H 97 06/04/20 05:01 142 H 30 H 160/101 H 96 06/04/20 04:46 146 H 30 H 154/97 H 97 06/04/20 04:36 105 H 20 146/89 H 97 06/04/20 04:30 139 H 29 H 125/100 96 06/04/20 04:25 156 H 30 H 149/82 H 98 06/04/20 04:18 167 H 138/80 06/04/20 04:17 144 H 21 128/89 98 06/04/20 04:16 150 H 24 130/80 98 06/04/20 04:13 136 H 25 H 130/84 97 06/04/20 04:09 136 H 25 H 144/86 H 97 06/04/20 04:01 136 H 25 H 154/89 H 98 06/04/20 04:00 36.8 C 06/04/20 03:52 168 H 23 159/86 H 98 06/04/20 03:45 124 H 32 H 156/85 H 98 06/04/20 03:34 124 H 28 H 159/86 H 97 06/04/20 03:16 125 H 31 H 163/86 H 97 06/04/20 03:01 121 H 27 H 165/85 H 97 06/04/20 02:46 129 H 26 H 157/88 H 97 06/04/20 02:30 125 H 25 H 162/87 H 97 06/04/20 02:16 123 H 30 H 158/90 H 96 06/04/20 02:00 123 H 30 H 172/87 H 97 06/04/20 01:45 123 H 25 H 167/92 H 92 06/04/20 01:30 122 H 28 H 143/92 H 91 06/04/20 01:16 122 H 32 H 177/93 H 92 06/04/20 01:00 121 H 27 H 181/93 H 92 06/04/20 00:45 115 H 28 H 171/94 H 93 06/04/20 00:30 118 H 27 H 168/114 H 93 06/04/20 00:15 118 H 29 H 184/95 H 92 06/04/20 00:00 108 H 06/03/20 23:45 122 H 26 H 195/99 H 93 06/03/20 23:30 119 H 25 H 190/107 H 94 06/03/20 23:15 106 H 24 179/107 H 93 06/03/20 23:06 37.4 C 06/03/20 23:00 107 H 22 186/107 H 94 06/03/20 22:45 104 H 24 185/105 H 93 06/03/20 22:30 100 H 22 186/108 H 93 06/03/20 22:15 109 H 21 210/108 H 94 06/03/20 22:00 82 22 191/111 H 92 06/03/20 21:45 92 H 19 204/113 H 94 06/03/20 21:30 90 22 185/122 H 95 06/03/20 21:20 93 H 19 194/107 H 94 06/03/20 21:15 91 H 20 263/136 H 94 06/03/20 21:00 73 18 261/144 H 95 06/03/20 20:45 80 17 251/140 H 94 06/03/20 20:31 79 19 259/133 H 95 06/04/20 03:33 06/04/20 03:33 Resident Activity Tracking Resident Involvement: Resident Care Provided Care Provided: Adult Hospital Medicine
--- NOTE | 2020-06-04 09:38 | Hospitalist Progress Note ---
Date of Service June 04, 2020 Assessment & Plan (1) Hypertensive emergency: presented with n/v and mild headache which are all improved. BP starting to improve. She is off the Cardene drip in the ICU. Cozaar was increased from 25mg daily to 50mg daily with first dose this morning. Notable noncompliance with home CPAP for the past two months likely contributing to fatigue and secondary hypertension. Cont to encourage compliance. Home furosemide 20mg was held and she is currently getting IVF in the setting of recent vomiting. (2) Nausea and vomiting: Likely secondary to hypertensive emergency CT ABD/pelvis showing moderate fecal retention--cont home stool softeners. Reports of large formed BM in the ED. Cont to advance diet as tolerated. (3) Paroxysmal A-fib: S/p h/o cardioversion and ablation. Rhythm controlled on sotalol. Anticoagulated on Eliquis. She did go into afib with RVR overnight and required some additional rate control with metoprolol. She is in sinus rhythm now and rate is 85-90. (4) Seizure: -Stable, no recent seizures -Continue Lamictal (5) Schizoaffective disorder: (6) Bipolar I disorder: -Stable, continue home medications (7) DVT prophylaxis: Eliquis Full Code Dispo-cont ICU monitoring for now. Recheck BP throughout the day. Lives at home alone. Disabled but independent. Case management to evaluate for needs. Theresa Mendoza DO [facility] Hospitalist Admission and Anticipated Discharge Date Admission Date: June 03, 2020 Subjective 55 yo F admitted for hypertensive emergency and placed in the ICU on a Cardene drip overnight. She went into afib with RVR and received multiple doses of metoprolol overnight along with her regularly scheduled meds this morning including sotalol. Currently (0900) her HR is in the 90s. She denies any chest pain or SOB, and says her headache is improving. She reports noncompliance with her CPAP mask for the last couple of months at home stating it bothers her to have something on her face. She reports wearing nocturnal oxygen. The patient otherwise denies flushing, abdominal pain, sweating episodes or other symptoms. She specifically denied "daytime fatigue" but does report feeling run down and tired much of the time. She doesn't have a BP cuff at home and hasn't been monitoring for changes since being off the CPAP mask. She reports compliance with her scheduled meds and denies any recent changes or OTC medication use. Review of Systems Review of Systems: All systems reviewed & are unremarkable except as noted in Subjective Physical Exam Physical Exam: CONSTITUTIONAL: obese, vitals as above, generally well- appearing, appears fatigued. EYES: normal conjunctivae, no scleral icterus ENT: MMM RESPIRATORY: clear to auscultation bilaterally, no crackles, rales or wheezes, normal respiratory effort CARDIOVASCULAR: regular rate and rhythm, S1 and 2 heard without murmurs, gallops or rubs, no JVD, no peripheral edema, no carotid bruits GASTROINTESTINAL: soft, protuberant abdomen with large pannus, nontender, no guarding, nondistended. MUSCULOSKELETAL: head is normocephalic and atraumatic, no gross focal deficits. She is sitting in a chair at bedside. SKIN: warm and dry NEUROLOGIC: No facial palsy, no gross focal deficits. PSYCHIATRIC: alert cooperative and oriented; answering questions appropriately Results & Data Results & Data ([facility]) Vital Signs (Past 12 Hours) Vital Signs Temp Pulse Resp BP Pulse Ox 06/04/20 06:31 101 H 20 171/111 H 97 06/04/20 06:26 152 H 159/114 H 06/04/20 06:15 136 H 30 H 170/118 H 97 06/04/20 06:01 146 H 30 H 147/107 H 98 06/04/20 05:46 152 H 28 H 159/114 H 97 06/04/20 05:45 146 H 154/97 H 06/04/20 05:30 143 H 24 154/108 H 95 06/04/20 05:16 152 H 29 H 147/103 H 97 06/04/20 05:01 142 H 30 H 160/101 H 96 06/04/20 04:46 146 H 30 H 154/97 H 97 06/04/20 04:36 105 H 20 146/89 H 97 06/04/20 04:30 139 H 29 H 125/100 96 06/04/20 04:25 156 H 30 H 149/82 H 98 06/04/20 04:18 167 H 138/80 06/04/20 04:17 144 H 21 128/89 98 06/04/20 04:16 150 H 24 130/80 98 06/04/20 04:13 136 H 25 H 130/84 97 06/04/20 04:09 136 H 25 H 144/86 H 97 06/04/20 04:01 136 H 25 H 154/89 H 98 06/04/20 04:00 36.8 C 06/04/20 03:52 168 H 23 159/86 H 98 06/04/20 03:45 124 H 32 H 156/85 H 98 06/04/20 03:34 124 H 28 H 159/86 H 97 06/04/20 03:16 125 H 31 H 163/86 H 97 06/04/20 03:01 121 H 27 H 165/85 H 97 06/04/20 02:46 129 H 26 H 157/88 H 97 06/04/20 02:30 125 H 25 H 162/87 H 97 06/04/20 02:16 123 H 30 H 158/90 H 96 06/04/20 02:00 123 H 30 H 172/87 H 97 06/04/20 01:45 123 H 25 H 167/92 H 92 06/04/20 01:30 122 H 28 H 143/92 H 91 06/04/20 01:16 122 H 32 H 177/93 H 92 06/04/20 01:00 121 H 27 H 181/93 H 92 06/04/20 00:45 115 H 28 H 171/94 H 93 06/04/20 00:30 118 H 27 H 168/114 H 93 06/04/20 00:15 118 H 29 H 184/95 H 92 06/04/20 00:00 108 H 06/03/20 23:45 122 H 26 H 195/99 H 93 06/03/20 23:30 119 H 25 H 190/107 H 94 06/03/20 23:15 106 H 24 179/107 H 93 06/03/20 23:06 37.4 C 06/03/20 23:00 107 H 22 186/107 H 94 06/03/20 22:45 104 H 24 185/105 H 93 06/03/20 22:30 100 H 22 186/108 H 93 06/03/20 22:15 109 H 21 210/108 H 94 06/03/20 22:00 82 22 191/111 H 92 06/03/20 21:45 92 H 19 204/113 H 94 06/03/20 21:30 90 22 185/122 H 95 Laboratory Results Short CBC 06/03/20 06/04/20 Range/Units 10:00 03:33 WBC 9.23 13.50 H (4.8-10.8) K/uL Hgb 15.4 13.9 (12.0-16.0) g/dL Hct 47.0 42.8 (37-47) % Plt Count 266 211 (130-400) K/uL BMP 06/03/20 06/04/20 10:00 03:33 Sodium 139 138 Potassium 3.3 L 3.2 L Chloride 101 105 Carbon Dioxide 29 27 BUN 9 9 Creatinine 0.99 0.68 D Glucose 127 H 158 H Calcium 10.1 8.9 Cardiac Enzymes 06/03/20 Range/Units 10:00 Troponin I < 0.015 (0-0.045) ng/ml Liver Function 06/03/20 Range/Units 10:00 Total Bilirubin 0.4 (0.2-1) mg/dl AST 18 (15-37) U/L ALT 21 (12-78) U/L Alkaline Phosphatase 145 H (45-117) U/L Albumin 4.4 (3.4-5.0) gm/dl Urine 06/03/20 Range/Units 11:15 Urine Color Yellow Urine Appearance Clear (Clear) Urine pH 5.0 (4.5-7.5) Ur Specific [place] 1.010 (1.000-1.030) Urine Protein Trace H (Negative) Urine Glucose (UA) Negative (Negative) Medications Administered Current Inpatient Medications Acetaminophen (Acetaminophen 325 Mg Tab) 650 mg PO Q4H PRN PRN Reason: Headache Stop: 07/04/20 07:34 Apixaban (Apixaban 5 Mg Tablet) 5 mg PO BID RAVI Stop: 07/03/20 20:59 Last Admin: 06/04/20 08:09 Dose: 5 mg Documented by: Buspirone HCl (Buspirone 15 Mg Tab) 30 mg PO BID RAVI Stop: 07/03/20 20:59 Last Admin: 06/04/20 08:09 Dose: 30 mg Documented by: Dicyclomine HCl (Dicyclomine Hcl 10 Mg Cap) 10 mg PO TID RAVI Stop: 07/03/20 20:59 Last Admin: 06/04/20 08:09 Dose: 10 mg Documented by: Docusate Sodium (Docusate Sodium 100 Mg Cap) 100 mg PO BID [facility] Stop: 07/03/20 20:59 Last Admin: 06/04/20 08:12 Dose: 100 mg Documented by: Fluticasone/Vilanterol (Fluticasone/Vilanterol 100/25mcg 14 Puffs/Inhaler) 1 puffs INH DAILY [facility] Stop: 07/04/20 08:59 Last Admin: 06/04/20 08:13 Dose: 1 puffs Documented by: Gabapentin (Gabapentin 300 Mg Cap) 300 mg PO HS [facility] Stop: 07/03/20 20:59 Last Admin: 06/03/20 22:37 Dose: 300 mg Documented by: Nicardipine HCl 25 mg/ Sodium (Chloride) 250 mls @ 0 mls/hr IV .Q0M [facility]; Protocol Stop: 07/03/20 21:59 Last Titration: 06/04/20 04:25 Dose: 0 mg/hr, 0 mls/hr Documented by: Lamotrigine (Lamotrigine 100 Mg Tab) 200 mg PO BID [facility] Stop: 07/03/20 20:59 Last Admin: 06/04/20 08:10 Dose: 200 mg Documented by: Levothyroxine Sodium (Levothyroxine Sodium 50 Mcg Tablet) [facility] Stop: 07/04/20 06:29 Last Admin: 06/04/20 05:45 Dose: 50 mcg Documented by: Levothyroxine Sodium (Levothyroxine Sodium 200 Mcg Tablet) 200 mcg PO DAILYBB [facility] Stop: 07/04/20 06:29 Last Admin: 06/04/20 05:45 Dose: 200 mcg Documented by: Losartan Potassium (Losartan Potassium 50 Mg Tab) [facility]: 07/04/20 08:59 Magnesium Oxide (Magnesium Oxide 400 Mg Tab) [facility] Stop: 07/04/20 08:59 Last Admin: 06/04/20 08:12 Dose: 400 mg Documented by: Miscellaneous (Icu Protocol For Hyperglycemia) 1 ea N/A PRN PRN; Protocol PRN Reason: Hyperglycemia Protocol Stop: 06/05/20 17:46 Multivitamins (Multivitamin Tab) 1 [facility] Stop: 07/04/20 08:59 Last Admin: 06/04/20 08:09 Dose: 1 tab Documented by: Ondansetron HCl (Ondansetron Inj 2 Mg/Ml 2 Ml Vial) 4 mg IV Q6H PRN PRN Reason: Nausea Stop: 07/03/20 19:32 Last Admin: 06/04/20 04:13 Dose: 4 mg Documented by: Pantoprazole Sodium (Pantoprazole 40 Mg Tab) [address] [facility]; Protocol Stop: 07/04/20 08:59 Last Admin: 06/04/20 08:12 Dose: 40 mg Documented by: Sertraline HCl (Sertraline Hcl 50 Mg Tablet) [address] [facility] Stop: 07/04/20 08:59 Last Admin: 06/04/20 08:11 Dose: 150 mg Documented by: Sotalol HCl (Sotalol Hcl 80 Mg Tab) 40 mg PO BID [facility] Stop: 07/03/20 20:59 Last Admin: 06/04/20 03:54 Dose: 40 mg Documented by:
[2020-06-04] MEDS: LOSARTAN POTASSIUM 50 MG TAB PO SCH (10:35)
[2020-06-04] MEDS ORDERED: amLODIPine BESYLATE 5 MG TAB PO ONE (13:30)
[2020-06-04] MEDS: ACETAMINOPHEN 325 MG TAB PO PRN ×2 (13:47→19:53)
--- NOTE | 2020-06-04 14:19 | Electrocardiogram Report ---
Test Reason : Blood Pressure : / mmHG Vent. Rate : 150 BPM Atrial Rate : 133 BPM P-R Int : 000 ms QRS Dur : 078 ms QT Int : 226 ms P-R-T Axes : 000 050 237 degrees QTc Int : 357 ms 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 with rapid ventricular response Marked ST abnormality, possible inferior subendocardial injury Abnormal ECG When compared with ECG of 03-JUN-2020 09:47, 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 has replaced Sinus rhythm Vent. rate has increased BY [address] now depressed in Inferior leads T wave inversion now evident in Inferior leads T wave inversion now evident in Anterolateral leads Confirmed by Jamar Botello ([id number]) on 06/04/2020 2:18:49 PM Referred By: REFERRED SELF Confirmed By:Froylan Botello
--- NOTE | 2020-06-04 19:26 | Billing Data ---
Date of Service June 04, 2020 Coding Level of Care Code Critical Care 1st 30-74 mins Time Spent (min) 31
[2020-06-04] MEDS ORDERED: LOSARTAN POTASSIUM 50 MG TAB PO ONE (19:35)
[2020-06-04] MEDS: METOPROLOL TARTRATE 50 MG TAB PO SCH (21:07)
[2020-06-04] MEDS: GABAPENTIN 300 MG CAP PO SCH (21:07)
[2020-06-05] MEDS: niCARdipine 25 MG in SODIUM CHLORIDE 0.9% 240 ML IV SCH ×7 (01:12→11:34)
[2020-06-05] MEDS: ACETAMINOPHEN 325 MG TAB PO PRN (02:08)
[2020-06-05] MEDS: ONDANSETRON INJ 2 MG/ML 2 ML VIAL IV PRN ×2 (04:11→09:50)
[2020-06-05] MEDS ORDERED: LORazepam 0.5 MG/1 ML VIAL IV STA (04:18)
[2020-06-05 04:30] LABS: Basophils # (auto) 0.03 K/uL (0-0.2); Basophils % (auto) 0.3 %; Eosinophils % (auto) 0.9 %; Hematocrit (blood only) 45.5 % (37-47); Hemoglobin 14.5 g/dL (12.0-16.0); Immature Granulocytes # (auto) 0.02 K/uL (0.00-0.02); Immature Granulocytes % (auto) 0.2 %; Lymphocytes # (auto) 1.78 K/uL (1.2-3.4); Lymphocytes % (auto) 15.3 %; Mean Corpuscular Hemoglobin 29.5 pg (25-34); Mean Corpuscular Hgb Conc 31.9 g/dL (32-36); Mean Corpuscular Volume 92.7 fL (80-100); Mean Platelet Volume 10.7 fL (7.4-10.4); Monocytes # (auto) 0.92 K/uL (0.11-0.59); Monocytes % (auto) 7.9 %; Neutrophils # (auto) 8.78 K/uL (1.4-6.5); Neutrophils % (auto) 75.4 %; Platelet Count 222 K/uL (130-400); RDW Coefficient of Variation 14.9 % (11.5-14.5); RDW Standard Deviation 50.1 fL (36.4-46.3); Red Blood Count 4.91 M/uL (4.2-5.4); White Blood Count 11.63 K/uL (4.8-10.8)
[2020-06-05 04:59] LABS: BUN Creatinine Ratio 19.7 (10-20); Creatinine Clr Calc Pharmacy 135.8 ml/min; Est GFR (African American) 114.8; Est GFR (Non-African American) 99.1; Magnesium 2.3 mg/dl (1.8-2.4); Phosphorus 1.6 mg/dl (2.5-4.9); Potassium 3.4 mmol/L (3.5-5.1)
[2020-06-05] MEDS: LEVOTHYROXINE SODIUM 200 MCG TABLET PO SCH (06:19)
[2020-06-05] MEDS: LEVOTHYROXINE SODIUM 50 MCG TABLET PO SCH (06:19)
[2020-06-05] MEDS ORDERED: POTASSIUM CHLORIDE CRTAB 20 MEQ TABCR PO STA (06:20)
[2020-06-05] MEDS ORDERED: POTASSIUM PHOS 3 MMOL/1 ML INFUSION IV STA (06:20)
[2020-06-05] MEDS: POTASSIUM CHLORIDE / WTR 10 MEQ/100 ML PLCT IV SCH ×3 (06:36→08:39)
[2020-06-05] MEDS: lamoTRIgine 100 MG TAB PO SCH ×2 (07:28→20:43)
[2020-06-05] MEDS: METOPROLOL TARTRATE 50 MG TAB PO SCH (07:28)
[2020-06-05] MEDS: busPIRone 15 MG TAB PO SCH ×2 (07:29→20:44)
[2020-06-05] MEDS: APIXABAN 5 MG TABLET PO SCH ×2 (07:29→20:43)
[2020-06-05] MEDS: SOTALOL HCL 80 MG TAB PO SCH ×2 (07:29→20:42)
[2020-06-05] MEDS: DICYCLOMINE HCL 10 MG CAP PO SCH ×3 (07:33→20:43)
[2020-06-05] MEDS: FLUTICASONE/VILANTEROL 100/25MCG 14 PUFFS/INHALER INH SCH (07:33)
[2020-06-05] MEDS: SERTRALINE HCL 50 MG TABLET PO SCH (07:34)
[2020-06-05] MEDS: MAGNESIUM OXIDE 400 MG TAB PO SCH (07:35)
[2020-06-05] MEDS: MULTIVITAMIN TAB PO SCH (07:35)
[2020-06-05] MEDS: LOSARTAN POTASSIUM 50 MG TAB PO SCH (07:35)
[2020-06-05] MEDS: DOCUSATE SODIUM 100 MG CAP PO SCH ×2 (07:35→09:17)
[2020-06-05] MEDS: PANTOprazole 40 MG TAB PO SCH (07:35)
[2020-06-05] MEDS ORDERED: Nursing to Pharmacy Communication SCH ×2 (08:45→13:00)
[2020-06-05] MEDS ORDERED: LOSARTAN POTASSIUM 50 MG TAB PO STA (08:57)
--- NOTE | 2020-06-05 09:06 | Critical Care Progress Note ---
Date of Service June 05, 2020 Assessment & Plan (1) Admitted to intensive care unit: Reason Critically Ill: 55 yo woman with history of hypertension who presented to the ED with hypertensive emergency. Her systolic blood pressures were 220s, and diastolics were 140s on arrival. She was started on a nitroprusside drip, with a goal systolic BP of 165 (25% of MAP). Her blood pressure remained above goal on the nitro drip, and it was discontinued in favor of a nicardipine drip. At one time during her ICU stay she went into A-fib with RVR, at which time her nicardipine drip was discontinued and she was given a total of four IV pushes of Lopressor 5mg. She has remained in sinus rhythm for > 24 hours. Her HR has reduced, ranging 80-90bpm over the past 12 hours. Last evening her nicardipine drip was restarted due to systolic BPs being above goal. Her home blood pressure medication regimen has been restarted as well. This morning her systolic BPs have reduced, currently weaning nicardipine drip. Goal SBP is now < 150. As for her symptoms, headache has resolved but nausea after meals persists. Since her BP has now been under much better control, suspect nausea has another etiology. Neuro: [facility] ICU: negative * Hx Bipolar I disorder and schizoaffective disease - continue home BuSpar, sertraline, lamictal - once medically stable or upon discharge, consider discontinuation of SSRI in bipolar disorder due to risk of induced raphael * Hx Seizure - continue home Lamictal * Headache -resolved - suspect secondary to elevated BP - prn Tylenol for pain - blood pressure management as below Cardiac: * Atrial Fibrillation with RVR - patient now in sinus rhythm - anticoagulated on Apixaban - continue home sotalol for rate control - continue cardiac monitoring * Hypertensive Emergency - systolic BP 220s, diastolic 140s on admission; complaining of headache and nausea - goal systolic BP < 150 for next 12 hours - initially started on nitroprusside drip, discontinued in favor of nicardipine drip; currently weaning nicardipine drip; home medication regimen re started - CT head negative, troponin negative, creatinine within normal limit. EKG without ST segment changes - ECHO 06/04 showing normal LV EF 60-65%, no wall motion abnormalities, no LVH, Grade II diastolic dysfunction - home medication regimen consists of losartan 25mg, and sotalol 40mg BID; patient insists she is compliant - may be secondary to pheochromocytoma. urine and plasma metanephrines pending. Patient with headache, although unclear if it is episodic in nature. She is not diaphoretic on exam. Patient was tachycardic on presentation. Respiratory: * Hx Asthma - continue home Breo inhaler - patient denies any recent hospitalizations for her asthma - no currently in exacerbation * Morbid obesity with probable MAURO - suspect MAURO might be playing a role in her uncontrolled hypertension - BiPAP trial while in the hospital - recommend Polysomnography as an outpatient - history of tobacco use GI: * Nausea - initially thought to be manifestation of hypertensive emergency, however has been ongoing despite improvement in blood pressure. etiology is unknown - EKG to assess QT interval, if normal will add reglan prior to next meal - continue zofran prn - heart healthy diet - continue Bentyl 10mg TID - patient with several loose stools, will discontinue scheduled Colace - continue Protonix 40mg RENAL/LYTES: - Cr normal on admission - replace electrolytes as necessary : - patient with good urine output overnight - no issues ENDO: * Hypothyroidism - continue home dose levothyroxine HEME: - hemoglobin normal ID: * Leukocytosis - WBC 13.5 on admission, down to 11 today - suspect secondary to physiology stress response; no concern for infection at this time; no concern for infection - COVID 19 neg - Nasal MRSA positive, on contact precautions LINES/IV ACCESS: PIV CODE STATUS: full DVT PROPHYLAXIS: SCDs, on apixaban Thank you for allowing us to participate in the care of this patient. Please refer to my attending physician's documentation for any further recommendations. Admission and Anticipated Discharge Date Admission Date: June 03, 2020 Supervising Physician Co-Signing Physician Notes Dr Randle was the resident-physician during care of patient. I separately eval uated patient for meyer portions of the history and the exam. I was present during the critical portion of medical decision making, and I discussed the case with the resident. I generally agree with the findings and plan except for any additions/exceptions noted. Patient seen and examined at bedside. No acute distress, no adverse events overnight. Her nausea is better controlled. No more headache. Denies any blurry vision. Tolerating diet. She was on nifedipine drip 5 mg at the time of examination. She has been started on losartan 100 as well as metoprolol p.o. Goal is to titrate off nifedipine drip today. Goal systolic blood pressure 150. Patient has been having hypokalemia with hypophosphatemia as well as hypertension. Hyper adrenergic etiology could be thought of. Follow-up lakesha read. Patient is morbidly obese with probable MAURO. Trial of BiPAP 10/6 30%. Needs outpatient polysomnography. For the nausea she is on Zofran. Will give dose of Reglan prior to her eating to see if that benefits. In/out: + 2162, urine output 802. Patient is +4.5 L since coming to the hosp ital. I will give a dose of Lasix today. I have personally spent 32 minutes of critical care time in the direct management of this patient. This is a life/limb threatening event. This includes time spent evaluating patient, direct bedside care, chart review, placing orders, interpretation of diagnostic studies, discussion with consultants, patient, and/or family members regarding treatment decisions, as well as other required patient management activities. This time is exclusive of all separately billable procedures, and teaching time and separate from and in addition to any other critical care service time. Subjective Mrs. Melton says she is feeling much better today. Her headache is gone. She does say she gets periodic HAs and at times gets "sweaty all over." Per discussion with CM, recent alteration in pill packets due to insurance changes predated her hospitalization. Suggestive of non-compliance etiology. Pill packets scheduled to resume 06/14 Review of Systems Eyes: no blurry vision Gastrointestinal: + nausea; no vomiting Neurologic: no headache(s) Physical Exam Constitutional: + obese and + combative; no acute distress and not diaphoretic Eyes: + anicteric sclerae and EOM intact bilaterally ENMT: external ear and nose normal, oropharynx normal Neck: normal visual inspection and trachea midline Respiratory: normal respiratory effort, lungs clear to auscultation Cardiovascular: RRR, no murmur, no edema Heart Sounds: normal S1, normal S2 and + murmur (systolic ejection) Extremities: + pedal edema Gastrointestinal (Abdomen): normal bowel sounds, soft, nontender, no hepatosplenomegaly Skin: no rashes, warm and dry Psychiatric: A+Ox3, euthymic affect Results & Data Results & Data ([facility]) Vital Signs (Past 12 Hours) Vital Signs Temp Pulse Resp BP Pulse Ox 06/05/20 06:55 91 H 19 161/97 H 98 06/05/20 06:25 92 H 21 145/89 H 98 06/05/20 05:55 79 25 H 136/84 94 06/05/20 05:25 75 18 138/79 97 06/05/20 04:56 81 20 181/107 H 99 06/05/20 04:25 95 H 18 155/104 H 98 06/05/20 03:25 84 21 163/91 H 97 06/05/20 03:00 37.0 C 06/05/20 02:55 79 24 129/79 96 06/05/20 02:25 86 19 139/79 100 06/05/20 01:55 88 20 157/97 H 97 06/05/20 01:25 94 H 21 149/89 H 98 06/05/20 00:55 99 H 23 175/95 H 98 06/05/20 00:25 90 21 173/96 H 98 06/04/20 23:55 107 H 24 166/102 H 98 06/04/20 23:25 95 H 20 170/94 H 98 06/04/20 23:21 97 H 06/04/20 22:55 87 23 172/93 H 99 06/04/20 22:25 94 H 23 191/95 H 99 06/04/20 21:55 102 H 23 157/122 H 99 06/04/20 21:25 93 H 25 H 174/100 H 99 06/05/20 03:45 06/05/20 03:45 Resident Activity Tracking Resident Involvement: Resident Care Provided Care Provided: Adult Hospital Medicine
[2020-06-05] MEDS ORDERED: POTASSIUM PHOSPHATE 21 MMOL in SODIUM CHLORIDE 0.9% 500 ML IV ONE (10:00)
[2020-06-05] MEDS ORDERED: DOCUSATE SODIUM 100 MG CAP PO PRN (10:16)
[2020-06-05] MEDS ORDERED: FUROSEMIDE 40 MG in SYRINGE 0 ML IV ONE (11:18)
--- NOTE | 2020-06-05 11:22 | Billing Data ---
Date of Service June 05, 2020 Coding Level of Care Code Critical Care 1st 30-74 mins Time Spent (min) 32
[2020-06-05] MEDS ORDERED: METOCLOPRAMIDE HCL 10 MG TABLET PO ONE (11:30)
[2020-06-05] MEDS ORDERED: METOPROLOL TARTRATE 25 MG TAB PO ONE (13:00)
--- NOTE | 2020-06-05 13:50 | Hospitalist Progress Note ---
Date of Service June 05, 2020 Assessment & Plan (1) Hypertensive emergency: Initially presented with nausea and vomiting with nausea returning again today. 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 She clearly has risk factors for MAURO and would benefit from an outpatient sleep study. 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 Pt now reports she never owned a CPAP mask at home. (2) Nausea and vomiting: Likely secondary to hypertensive emergency CT ABD/pelvis showing moderate fecal retention--cont home stool softeners. Reports of large formed BM in the ED. Cont to advance diet as tolerated. (3) Paroxysmal A-fib: S/p h/o cardioversion and ablation. Rhythm controlled on sotalol. Anticoagulated on Eliquis. She did go into afib with RVR overnight on 06/04 and required some additional rate control with metoprolol. She is in sinus rhythm now and rate is 85-90. (4) Seizure: -Stable, no recent seizures -Continue Lamictal (5) Schizoaffective disorder: (6) Bipolar I disorder: -Stable, continue home medications (7) DVT prophylaxis: Eliquis Full Code Dispo-cont ICU monitoring for now. Recheck BP throughout the day. Lives at home alone. Disabled but independent. She has a Senior Process Analyst at [facility] who helps her with applied tasks such as managing medications, etc. Case management to evaluate for needs. Theresa Mendoza DO [facility] Hospitalist Admission and Anticipated Discharge Date Admission Date: June 03, 2020 Subjective reports feeling some nausea otherwise has no complaints in contrast to my conversation with her yesterday, she reports having a sleep study in the past but no mask Reports don't go back that far in this system, but many notes from 2017 note MAURO in the history. She remains hypertensive and titration efforts are ongoing today by the dispensing and measuring optician. She continues to enforce that she has significant daytime fatigue. Review of Systems Review of Systems: All systems reviewed & are unremarkable except as noted in Subjective Physical Exam Physical Exam: CONSTITUTIONAL: obese, vitals as above, generally well- appearing, well-appearing. EYES: normal conjunctivae, no scleral icterus ENT: MMM RESPIRATORY: clear to auscultation bilaterally, no crackles, rales or wheezes, normal respiratory effort CARDIOVASCULAR: regular rate and rhythm, S1 and 2 heard without murmurs, gallops or rubs, no JVD, no peripheral edema GASTROINTESTINAL: soft, protuberant abdomen with large pannus, nontender, no guarding, nondistended. MUSCULOSKELETAL: head is normocephalic and atraumatic, no gross focal deficits. She is sitting in a chair at bedside. SKIN: warm and dry NEUROLOGIC: No facial palsy, no gross focal deficits. PSYCHIATRIC: alert cooperative and oriented; answering questions appropriately Results & Data Results & Data ([facility]) Vital Signs (Past 12 Hours) Vital Signs Temp Pulse Resp BP Pulse Ox 06/05/20 12:55 89 22 183/103 H 95 06/05/20 12:25 90 25 H 171/107 H 95 06/05/20 11:55 102 H 18 149/94 H 96 06/05/20 11:26 100 H 25 H 167/105 H 94 06/05/20 10:55 91 H 20 135/89 06/05/20 10:25 84 21 163/110 H 06/05/20 09:55 91 H 22 171/95 H 06/05/20 09:25 81 21 158/90 H 06/05/20 09:08 88 25 H 157/98 H 98 06/05/20 08:25 88 25 H 152/89 H 95 06/05/20 08:00 93 H 06/05/20 06:55 91 H 19 161/97 H 98 06/05/20 06:25 92 H 21 145/89 H 98 06/05/20 05:55 79 25 H 136/84 94 06/05/20 05:25 75 18 138/79 97 06/05/20 04:56 81 20 181/107 H 99 06/05/20 04:25 95 H 18 155/104 H 98 06/05/20 03:25 84 21 163/91 H 97 06/05/20 03:00 37.0 C 06/05/20 02:55 79 24 129/79 96 06/05/20 02:25 86 19 139/79 100 06/05/20 01:55 88 20 157/97 H 97 Laboratory Results Short CBC 06/05/20 Range/Units 03:45 WBC 11.63 H (4.8-10.8) K/uL Hgb 14.5 (12.0-16.0) g/dL Hct 45.5 (37-47) % Plt Count 222 (130-400) K/uL BMP 06/05/20 03:45 Sodium 138 Potassium 3.4 L Chloride 105 Carbon Dioxide 29 BUN 13 Creatinine 0.64 Glucose 136 H Calcium 9.0 Medications Administered Current Inpatient Medications Acetaminophen (Acetaminophen 325 Mg Tab) 650 mg PO Q4H PRN PRN Reason: Headache Stop: 07/04/20 07:34 Last Admin: 06/05/20 02:08 Dose: 650 mg Documented by: Apixaban (Apixaban 5 Mg Tablet) 5 mg PO BID [facility] Stop: 07/03/20 20:59 Last Admin: 06/05/20 07:29 Dose: 5 mg Documented by: Buspirone HCl (Buspirone 15 Mg Tab) 30 mg PO BID [facility] Stop: 07/03/20 20:59 Last Admin: 06/05/20 07:29 Dose: 30 mg Documented by: Dicyclomine HCl (Dicyclomine Hcl 10 Mg Cap) 10 mg PO TID [facility] Stop: 07/03/20 20:59 Last Admin: 06/05/20 13:08 Dose: 10 mg Documented by: Docusate Sodium (Docusate Sodium 100 Mg Cap) 100 mg PO BID PRN PRN Reason: CONSTIPATION Stop: 07/05/20 10:15 Fluticasone/Vilanterol (Fluticasone/Vilanterol 100/25mcg 14 Puffs/Inhaler) 1 puffs INH DAILY [facility] Stop: 07/04/20 08:59 Last Admin: 06/05/20 07:33 Dose: 1 puffs Documented by: Gabapentin (Gabapentin 300 Mg Cap) 300 mg PO HS [facility] Stop: 07/03/20 20:59 Last Admin: 06/04/20 21:07 Dose: 300 mg Documented by: Nicardipine HCl 25 mg/ Sodium (Chloride) 250 mls @ 0 mls/hr IV .Q0M [facility]; Protocol Stop: 07/03/20 21:59 Last Admin: 06/05/20 11:34 Dose: Not Given Documented by: Potassium Phosphate 21 mmol/ (Sodium Chloride) 507 mls @ 88 mls/hr IV ONE ONE Stop: 06/05/20 15:45 Last Admin: 06/05/20 09:07 Dose: 88 mls/hr Documented by: Lamotrigine (Lamotrigine 100 Mg Tab) 200 mg PO BID [facility] Stop: 07/03/20 20:59 Last Admin: 06/05/20 07:28 Dose: 200 mg Documented by: Levothyroxine Sodium (Levothyroxine Sodium 50 Mcg Tablet) [facility] Stop: 07/04/20 06:29 Last Admin: 06/05/20 06:19 Dose: 50 mcg Documented by: Levothyroxine Sodium (Levothyroxine Sodium 200 Mcg Tablet) [facility] Stop: 07/04/20 06:29 Last Admin: 06/05/20 06:19 Dose: 200 mcg Documented by: Losartan Potassium (Losartan Potassium 50 Mg Tab) 100 mg PO [facility] Stop: 07/06/20 08:59 Magnesium Oxide (Magnesium Oxide 400 Mg Tab) 400 mg PO [facility] Stop: 07/04/20 08:59 Last Admin: 06/05/20 07:35 Dose: 400 mg Documented by: Metoprolol Tartrate (Metoprolol Tartrate 50 Mg Tab) 75 mg PO BID [facility] Stop: 07/04/20 20:59 Miscellaneous (Icu Protocol For Hyperglycemia) 1 ea N/A PRN PRN; Protocol PRN Reason: Hyperglycemia Protocol Stop: 06/05/20 17:46 Multivitamins (Multivitamin Tab) 1 tab PO [facility] Stop: 07/04/20 08:59 Last Admin: 06/05/20 07:35 Dose: 1 tab Documented by: Ondansetron HCl (Ondansetron Inj 2 Mg/Ml 2 Ml Vial) 4 mg IV Q6H PRN PRN Reason: Nausea Stop: 07/03/20 19:32 Last Admin: 06/05/20 09:50 Dose: 4 mg Documented by: Pantoprazole Sodium (Pantoprazole 40 Mg Tab) 40 mg PO [facility]; Protocol Stop: 07/04/20 08:59 Last Admin: 06/05/20 07:35 Dose: 40 mg Documented by: Sertraline HCl (Sertraline Hcl 50 Mg Tablet) 150 mg PO [facility] Stop: 07/04/20 08:59 Last Admin: 06/05/20 07:34 Dose: 150 mg Documented by: Sotalol HCl (Sotalol Hcl 80 Mg Tab) 40 mg PO BID [facility] Stop: 07/03/20 20:59 Last Admin: 06/05/20 07:29 Dose: 40 mg Documented by:
[2020-06-05 15:46] LABS: BUN Creatinine Ratio 15.8 (10-20); Creatinine Clr Calc Pharmacy 115.8 ml/min; Est GFR (African American) 102.6; Est GFR (Non-African American) 88.5; Phosphorus 2.2 mg/dl (2.5-4.9); Potassium 4.5 mmol/L (3.5-5.1)
[2020-06-05] MEDS ORDERED: METOPROLOL TARTRATE 25 MG TAB PO STA (16:46)
--- NOTE | 2020-06-05 16:48 | Electrocardiogram Report ---
Test Reason : Blood Pressure : / mmHG Vent. Rate : 098 BPM Atrial Rate : 098 BPM P-R Int : 130 ms QRS Dur : 082 ms QT Int : 396 ms P-R-T Axes : 046 051 052 degrees QTc Int : 505 ms Normal sinus rhythm Nonspecific T wave abnormality Abnormal ECG When compared with ECG of 04-JUN-2020 04:01, Sinus rhythm has replaced 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 Vent. rate has decreased BY [address] no longer depressed in Inferior leads ST no longer depressed in Anterolateral leads T wave inversion no longer evident in Inferior leads T wave inversion no longer evident in Lateral leads Confirmed by Jamar Botello [id number] on 06/05/2020 4:48:14 PM Referred By: REFERRED SELF Confirmed By:Froylan Botello
[2020-06-05] MEDS ORDERED: hydrALAZINE HCL 25 MG TAB PO STA (18:25)
[2020-06-05] MEDS ORDERED: hydrALAZINE HCL 20 MG/ML VIAL IV PRN (18:59)
[2020-06-05] MEDS: GABAPENTIN 300 MG CAP PO SCH (20:43)
[2020-06-05] MEDS ORDERED: METOPROLOL TARTRATE 100 MG TAB PO SCH (21:00)
[2020-06-05] MEDS ORDERED: METOPROLOL TARTRATE 50 MG TAB PO SCH (21:00)
[2020-06-06] MEDS ORDERED: LABETALOL HCL IV 5 MG/ML 20ML IV PRN (04:45)
[2020-06-06] MEDS: LEVOTHYROXINE SODIUM 200 MCG TABLET PO SCH (05:14)
[2020-06-06] MEDS: LEVOTHYROXINE SODIUM 50 MCG TABLET PO SCH (05:14)
[2020-06-06] MEDS ORDERED: LABETALOL HCL IV 5 MG/ML 20ML IV STA (05:55)
[2020-06-06 06:10] LABS: Hemoglobin 14.4 g/dL (12.0-16.0); Mean Corpuscular Hemoglobin 29.9 pg (25-34); Mean Corpuscular Volume 93.4 fL (80-100); Mean Platelet Volume 10.7 fL (7.4-10.4); Platelet Count 280 K/uL (130-400); RDW Coefficient of Variation 15.2 % (11.5-14.5); RDW Standard Deviation 51.8 fL (36.4-46.3); Red Blood Count 4.82 M/uL (4.2-5.4); White Blood Count 10.82 K/uL (4.8-10.8)
[2020-06-06 06:50] LABS: BUN Creatinine Ratio 18.1 (10-20); Calcium 9.2 mg/dl (8.5-10.1); Creatinine Clr Calc Pharmacy 126.8 ml/min; Est GFR (Non-African American) 96.6; Magnesium 2.2 mg/dl (1.8-2.4); Phosphorus 1.7 mg/dl (2.5-4.9)
--- NOTE | 2020-06-06 07:28 | Critical Care Progress Note ---
Date of Service June 06, 2020 Assessment & Plan (1) Admitted to intensive care unit: Reason Critically Ill: 55 yo woman with history of hypertension who presented to the ED with hypertensive emergency. Her systolic blood pressures were 220s, and diastolics were 140s on arrival. She was started on a nitroprusside drip, with a goal systolic BP of 165 (25% of MAP). Her blood pressure remained above goal on the nitro drip, and it was discontinued in favor of a nicardipine drip. At one time during her ICU stay she went into A-fib with RVR, at which time her nicardipine drip was discontinued and she was given a total of four IV pushes of Lopressor 5mg. She has remained in sinus rhythm for > 48 hours. Her HR has reduced, ranging 60-80 bpm over the past 12 hours. Her blood pressure has been difficult to control. Systolic BPs have ranged from 150s-180s overnight, diastolics have ranged from 75-100. Prior to her hospitalization, her home BP regimen consisted fo Losartan 25mg daily and Sotalol 40mg BID. This has been titrated to Losartan 100mg, daily, Sotalol 40mg BID and Coreg 25mg BID. Over the past 24 hours she has required multiple prn doses of Lopressor, 2 doses of Labetalol 10mg, and 1 dose of hydralazine 10mg. Of note, in addition to being hypertensive, patient has continued to have low potassium and phosphorus levels. This is concerning for possible hyperaldosteronism. As for her symptoms, headache and nausea have resolved. Neuro: [facility] ICU: negative * Hx Bipolar I disorder and schizoaffective disease - continue home BuSpar, sertraline, lamictal - once medically stable or upon discharge, consider discontinuation of SSRI in bipolar disorder due to risk of induced raphael * Hx Seizure - continue home Lamictal * Headache -resolved - suspect secondary to elevated BP - prn Tylenol for pain - blood pressure management as below Cardiac: * Atrial Fibrillation with RVR - patient now in sinus rhythm - anticoagulated on Apixaban - continue home sotalol for rate control; Coreg 25mg BID added - continue cardiac monitoring * Hypertensive Emergency - systolic BP 220s, diastolic 140s on admission; complaining of headache and nausea - CT head negative, troponin negative, creatinine within normal limit. EKG without ST segment changes - ECHO 06/04 showing normal LV EF 60-65%, no wall motion abnormalities, no LVH, Grade II diastolic dysfunction - initially started on nitroprusside drip, discontinued in favor of nicardipine drip; nicardipine drip has been off for > 24 hours. - home medication regimen prior to admission consisted of losartan 25mg, and sotalol 40mg BID; patient insists she is compliant, although CM found a temporary change in insurance coverage (and pill packet supply) preceded this admission. Regular insurance will resume on 06/14 - regimen increased to losartan 100mg, daily, sotalol 40mg BID, and Coreg 25mg BID - Over the past 24 hours she has required multiple prn doses of Lopressor, 2 doses of Labetalol 10mg, and 1 dose of hydralazine 10mg - goal systolic BP < 150 - may be secondary to pheochromocytoma. urine and plasma metanephrines pending. Patient with headache, although unclear if it is episodic in nature. She is not diaphoretic on exam. Patient was tachycardic on presentation. - it is unknown if patient has ever been worked up for primary hypertension. Persistent elevated blood pressure, along with hypokalemia and hypophosphatemia are concerning for hyperaldosteronism. Recommend patient undergo workup, which would include morning plasma renin activity, plasma renin concentration, and plasma aldosterone concentration levels. Respiratory: * Hx Asthma - continue home Breo inhaler - patient denies any recent hospitalizations for her asthma - no currently in exacerbation * Morbid obesity with probable MAURO - suspect MAURO might be playing a role in her uncontrolled hypertension - BiPAP trial while in the hospital - recommend Polysomnography as an outpatient - history of tobacco use GI: * Nausea - improved - initially thought to be manifestation of hypertensive emergency, however has been ongoing despite improvement in blood pressure. etiology is unknown - QT prolonged, recommend against further doses of Reglan - continue zofran prn - heart healthy diet - continue Bentyl 10mg TID - patient with several loose stools, will discontinue scheduled Colace - continue Protonix 40mg RENAL/LYTES: - Cr normal on admission - patient has been hypokalemic and hypophosphatemic, requiring daily supplementation. - replace electrolytes as necessary : - patient with good urine output overnight - no issues ENDO: * Hypothyroidism - continue home dose levothyroxine HEME: - hemoglobin normal ID: * Leukocytosis - WBC 13.5 on admission, down to 10.8 today - suspect secondary to physiology stress response; no concern for infection at this time; no concern for infection - COVID 19 neg - Nasal MRSA positive, on contact precautions LINES/IV ACCESS: PIV CODE STATUS: full DVT PROPHYLAXIS: SCDs, on apixaban Thank you for allowing us to participate in the care of this patient. Please refer to my attending physician's documentation for any further recommendations. Admission and Anticipated Discharge Date Admission Date: June 03, 2020 Supervising Physician Co-Signing Physician Notes Dr Randle was the resident-physician during care of patient. I separately evaluated patient for meyer portions of the history and the exam. I was present during the critical portion of medical decision making, and I discussed the case with the resident. I generally agree with the findings and plan except for any additions/exceptions noted. Patient seen and examined at bedside. No acute distress, no adverse events overnight. Patient has been off nicardipine drip for more than 24 hours. Her systolic blood pressure is still on the higher side. I change labetalol to Coreg as it would be beneficial for the blood pressure. Losartan is also 100 mg is a high dose. If there is still high blood pressure we will add amlodipine 10 mg. If still not controlled on spironolactone versus hydralazine could be thought of p.o. Patient does get hypokalemia and hypophosphatemia along with hypertension. Primary hyperaldosteronism could be thought of. Metanephrines are not back yet. Primary care team can follow-up on that. Hypokalemia and hypophosphatemia being replaced. Patient's nausea is better controlled. Continue with Zofran as needed. Patient used BiPAP overnight. Apparently patient has CPAP/BiPAP at home but she was not using it. I recommend patient to use BiPAP/CPAP. As noncompliance of an underlying MAURO will also be one of the cause of malignant hypertension which she has. In/out: +1222, urine output 354. This time is exclusive of all separately billable procedures, and teaching time and separate from and in addition to any other critical care service time. Subjective Patient reports she is feeling better today. Her nausea and headache have resolved. She denies any blurry vision. Review of Systems Review of Systems: All systems reviewed & are unremarkable except as noted in HPI & below Physical Exam Constitutional: + obese and cooperative; no acute distress and not diaphoretic Eyes: + anicteric sclerae and EOM intact bilaterally ENMT: external ear and nose normal, oropharynx normal Neck: normal visual inspection and trachea midline Respiratory: normal respiratory effort, lungs clear to auscultation Cardiovascular: RRR, no murmur, no edema Heart Sounds: normal S1, normal S2 and + murmur (systolic ejection) Extremities: + pedal edema Gastrointestinal (Abdomen): normal bowel sounds, soft, nontender, no hepatosplenomegaly Skin: no rashes, warm and dry Psychiatric: A+Ox3, euthymic affect Results & Data Results & Data ([facility]) Vital Signs (Past 12 Hours) Vital Signs Temp Pulse Pulse Resp BP BP Pulse Ox 06/06/20 06:50 71 25 H 172/95 H 93 06/06/20 06:00 80 19 167/84 H 94 06/06/20 05:52 81 19 181/103 H 94 06/06/20 05:02 80 17 167/92 H 93 06/06/20 04:02 37 C 82 23 173/90 H 95 06/06/20 03:00 66 24 180/85 H 92 06/06/20 02:00 67 22 158/75 H 92 06/06/20 01:01 67 24 176/83 H 92 06/06/20 00:00 37 C 68 24 142/62 H 92 06/05/20 23:00 62 21 175/84 H 91 06/05/20 22:00 68 22 170/100 H 93 06/05/20 21:30 73 20 97 06/05/20 21:00 70 20 171/89 H 99 06/05/20 20:08 36.8 C 85 22 151/88 H 94 Resident Activity Tracking Resident Involvement: Resident Care Provided Care Provided: Adult Hospital Medicine
[2020-06-06 07:33] LABS: Potassium 3.7 mmol/L (3.5-5.1)
[2020-06-06] MEDS ORDERED: hydrALAZINE HCL 20 MG/ML VIAL IV PRN (07:35)
[2020-06-06] MEDS ORDERED: POTASSIUM PHOS 3 MMOL/1 ML INFUSION IV STA ×2 (07:36→07:57)
[2020-06-06] MEDS ORDERED: POTASSIUM PHOSPHATE 40 MMOL in SODIUM CHLORIDE 0.9% 1000ML 1,000 ML IV ONE (07:45)
[2020-06-06] MEDS: FLUTICASONE/VILANTEROL 100/25MCG 14 PUFFS/INHALER INH SCH (07:52)
[2020-06-06] MEDS: busPIRone 15 MG TAB PO SCH ×2 (07:52→23:29)
[2020-06-06] MEDS: DICYCLOMINE HCL 10 MG CAP PO SCH ×3 (07:53→23:28)
[2020-06-06] MEDS: APIXABAN 5 MG TABLET PO SCH ×2 (08:01→23:29)
[2020-06-06] MEDS: SOTALOL HCL 80 MG TAB PO SCH ×2 (08:02→23:27)
[2020-06-06] MEDS: lamoTRIgine 100 MG TAB PO SCH ×2 (08:02→23:28)
[2020-06-06] MEDS: MULTIVITAMIN TAB PO SCH (08:03)
[2020-06-06] MEDS: LOSARTAN POTASSIUM 50 MG TAB PO SCH (08:03)
[2020-06-06] MEDS: PANTOprazole 40 MG TAB PO SCH (08:04)
[2020-06-06] MEDS: carvediloL 25 MG TAB PO SCH ×2 (08:04→23:27)
[2020-06-06] MEDS: SERTRALINE HCL 50 MG TABLET PO SCH (08:04)
[2020-06-06] MEDS: MAGNESIUM OXIDE 400 MG TAB PO SCH (08:04)
[2020-06-06] MEDS ORDERED: SODIUM CHLORIDE 0.9% IV ONE (08:15)
[2020-06-06] MEDS ORDERED: POTASSIUM PHOSPHATE IV ONE (08:15)
--- NOTE | 2020-06-06 10:46 | Billing Data ---
Date of Service June 06, 2020 Coding Level of Care Code 01378 Subseq Hosp Care Lvl 3
--- NOTE | 2020-06-06 12:27 | Hospitalist Progress Note ---
Date of Service June 06, 2020 Assessment & Plan (1) Hypertensive emergency: Cardene drip off and she was ultimately changed from losartan 25mg daily to 100mg daily, Lasix and K were stopped, coreg 25 BID was added (sotalol was continued). She clearly has risk factors for MAURO and would benefit from an outpatient sleep study. She consistently reports not having a mask at home. Will continue to get her BP controlled and stabilized on a new regimen over the weekend, and complete the secondary workup with likely discharge no earlier than tuesday. This patient is disabled and depends on caregivers who are not available to update about a new medication list over the weekend. (2) Nausea and vomiting: resolved, cont Bentyl and stool softeners as needed with encouragement to ambulate to help with daily BM regularity. Cont plan as above for BP control. (3) Paroxysmal A-fib: S/p h/o cardioversion and ablation. Rhythm controlled on sotalol. Anticoagulated on Eliquis. Continues in sinus rhythm. (4) Seizure: -Stable, no recent seizures -Continue Lamictal (5) Chronic back pain: Tizanadine TID PRN per home regimen. Cont gabapentin per home regimen. (6) Schizoaffective disorder: Disabled, has caregivers through the [email or web address] that help her with IADLs. (7) Bipolar I disorder: -Stable, continue home medications (8) DVT prophylaxis: Eliquis Full Code Dispo-transfer to floor. Plan for DC on Tuesday if BP stable through the weekend. Theresa Mendoza DO [facility] Hospitalist Admission and Anticipated Discharge Date Admission Date: June 03, 2020 Subjective doing well some chronic back pain reported and she is requesting her tizanadine which was ordered nausea is improved today BP still elevated. transferred from ICU to the floor Review of Systems Review of Systems: All systems reviewed & are unremarkable except as noted in Subjective Physical Exam Physical Exam: CONSTITUTIONAL: obese, vitals as above, generally well- appearing EYES: normal conjunctivae, no scleral icterus ENT: MMM RESPIRATORY: clear to auscultation bilaterally, no crackles, rales or wheezes, normal respiratory effort CARDIOVASCULAR: regular rate and rhythm, S1 and 2 heard without murmurs, gallops or rubs, no JVD, no peripheral edema GASTROINTESTINAL: soft, protuberant abdomen with large pannus, nontender, no guarding, nondistended. MUSCULOSKELETAL: head is normocephalic and atraumatic, no gross focal deficits. She is sitting in a chair at bedside. SKIN: warm and dry NEUROLOGIC: No facial palsy, no gross focal deficits. PSYCHIATRIC: alert cooperative and oriented; answering questions appropriately Results & Data Results & Data ([facility]) Vital Signs (Past 12 Hours) Vital Signs Temp Pulse Pulse Resp BP BP Pulse Ox 06/06/20 11:51 76 24 155/88 H 97 06/06/20 10:50 72 25 H 178/98 H 93 06/06/20 09:51 70 24 164/96 H 95 06/06/20 09:27 163/111 H 95 06/06/20 09:00 37.1 C 06/06/20 08:50 79 19 187/97 H 96 06/06/20 08:48 79 23 182/100 H 95 06/06/20 08:46 76 25 H 181/97 H 95 06/06/20 08:00 75 06/06/20 06:50 71 25 H 172/95 H 93 06/06/20 06:00 80 19 167/84 H 94 06/06/20 05:52 81 19 181/103 H 94 06/06/20 05:02 80 17 167/92 H 93 06/06/20 04:02 37 C 82 23 173/90 H 95 06/06/20 03:00 66 24 180/85 H 92 06/06/20 02:00 67 22 158/75 H 92 06/06/20 01:01 67 24 176/83 H 92 Laboratory Results Short CBC 06/06/20 Range/Units 05:19 WBC 10.82 H (4.8-10.8) K/uL Hgb 14.4 (12.0-16.0) g/dL Hct 45.0 (37-47) % Plt Count 280 (130-400) K/uL BMP 06/05/20 06/06/20 15:03 05:19 Sodium 138 137 Potassium 4.5 D 3.7 D Chloride 104 102 Carbon Dioxide 28 30 BUN 12 13 Creatinine 0.75 0.69 Glucose 137 H 132 H Calcium 9.0 9.2 Medications Administered Current Inpatient Medications Acetaminophen (Acetaminophen 325 Mg Tab) 650 mg PO Q4H PRN PRN Reason: Headache Stop: 07/04/20 07:34 Last Admin: 06/05/20 02:08 Dose: 650 mg Documented by: Apixaban (Apixaban 5 Mg Tablet) 5 mg PO BID RAVI Stop: 07/03/20 20:59 Last Admin: 06/06/20 08:01 Dose: 5 mg Documented by: Buspirone HCl (Buspirone 15 Mg Tab) 30 mg PO BID RAVI Stop: 07/03/20 20:59 Last Admin: 06/06/20 07:52 Dose: 30 mg Documented by: Carvedilol (Carvedilol 25 Mg Tab) 25 mg PO BID [facility]I Stop: 07/06/20 08:59 Last Admin: 06/06/20 08:04 Dose: 25 mg Documented by: Dicyclomine HCl (Dicyclomine Hcl 10 Mg Cap) 10 mg PO TID RAVI Stop: 07/03/20 20:59 Last Admin: 06/06/20 07:53 Dose: 10 mg Documented by: Docusate Sodium (Docusate Sodium 100 Mg Cap) 100 mg PO BID PRN PRN Reason: CONSTIPATION Stop: 07/05/20 10:15 Fluticasone/Vilanterol (Fluticasone/Vilanterol 100/25mcg 14 Puffs/Inhaler) 1 puffs INH DAILY RAVI Stop: 07/04/20 08:59 Last Admin: 06/06/20 07:52 Dose: 1 puffs Documented by: Gabapentin (Gabapentin 300 Mg Cap) 300 mg PO HS [facility] Stop: 07/03/20 20:59 Last Admin: 06/05/20 20:43 Dose: 300 mg Documented by: Hydralazine HCl (Hydralazine Hcl 20 Mg/Ml Vial) 10 mg IV Q4 PRN PRN Reason: SBP greater than 170 Stop: 07/05/20 18:58 Potassium Phosphate 34 mmol/ (Sodium Chloride) 511.3333 mls @ 90 mls/hr IV ONE ONE Stop: 06/06/20 13:55 Last Admin: 06/06/20 08:21 Dose: 90 mls/hr Documented by: Labetalol HCl (Labetalol Hcl Iv 5 Mg/Ml 20ml) 10 mg IV Q3H PRN PRN Reason: SBP greater than 180 Stop: 07/06/20 04:44 Last Admin: 06/06/20 05:14 Dose: 10 mg Documented by: Lamotrigine (Lamotrigine 100 Mg Tab) 200 mg PO BID [facility] Stop: 07/03/20 20:59 Last Admin: 06/06/20 08:02 Dose: 200 mg Documented by: Levothyroxine Sodium (Levothyroxine Sodium 50 Mcg Tablet) [facility] Stop: 07/04/20 06:29 Last Admin: 06/06/20 05:14 Dose: 50 mcg Documented by: Levothyroxine Sodium (Levothyroxine Sodium 200 Mcg Tablet) [facility] Stop: 07/04/20 06:29 Last Admin: 06/06/20 05:14 Dose: 200 mcg Documented by: Losartan Potassium (Losartan Potassium 50 Mg Tab) 100 mg PO [facility] Stop: 07/06/20 08:59 Last Admin: 06/06/20 08:03 Dose: 100 mg Documented by: Magnesium Oxide (Magnesium Oxide 400 Mg Tab) 400 mg PO [facility] Stop: 07/04/20 08:59 Last Admin: 06/06/20 08:04 Dose: 400 mg Documented by: Multivitamins (Multivitamin Tab) 1 tab PO [facility] Stop: 07/04/20 08:59 Last Admin: 06/06/20 08:03 Dose: 1 tab Documented by: Ondansetron HCl (Ondansetron Inj 2 Mg/Ml 2 Ml Vial) 4 mg IV Q6H PRN PRN Reason: Nausea Stop: 07/03/20 19:32 Last Admin: 06/05/20 09:50 Dose: 4 mg Documented by: Pantoprazole Sodium (Pantoprazole 40 Mg Tab) 40 mg PO [facility]; Protocol Stop: 07/04/20 08:59 Last Admin: 06/06/20 08:04 Dose: 40 mg Documented by: Sertraline HCl (Sertraline Hcl 50 Mg Tablet) 150 mg PO [facility] Stop: 07/04/20 08:59 Last Admin: 06/06/20 08:04 Dose: 150 mg Documented by: Sotalol HCl (Sotalol Hcl 80 Mg Tab) 40 mg PO BID [facility] Stop: 07/03/20 20:59 Last Admin: 06/06/20 08:02 Dose: 40 mg Documented by:
[2020-06-06 12:56] LABS: Appearance Urine Clear (Clear); Bacteria Urine Automated Negative (Negative); Bilirubin Urine Negative (Negative); Blood Urine Trace (Negative); Cast Urine Automated 0 /lpf (0-5); Color Urine Yellow; Epithelial Cell Urine Auto 0-5 /lpf (0-5); Glucose Urine UA Negative (Negative); Ketones Urine Negative (Negative); Leukocyte Esterase Urine Negative (Negative); Nitrite Urine Negative (Negative); Protein Urine Negative (Negative); RBC Urine Automated 0-4 /hpf (0-4); Specific Gravity Urine 1.007 (1.000-1.030); Urobilinogen Urine Negative (Negative); WBC Urine Automated 0 /hpf (0-5); pH Urine 6.5 (4.5-7.5)
[2020-06-06] MEDS ORDERED: tiZANidine HCL 4 MG TABLET PO PRN (14:57)
[2020-06-06] MEDS ORDERED: tiZANidine HCL 4 MG TABLET PO ONE (15:15)
[2020-06-06 16:19] LABS: BUN Creatinine Ratio 14.1 (10-20); Calcium 9.3 mg/dl (8.5-10.1); Creatinine Clr Calc Pharmacy 118.2 ml/min; Est GFR (African American) 104.2; Est GFR (Non-African American) 89.9; Potassium 4.1 mmol/L (3.5-5.1)
[2020-06-06] MEDS: GABAPENTIN 300 MG CAP PO SCH (23:29)
[2020-06-07] MEDS: LEVOTHYROXINE SODIUM 200 MCG TABLET PO SCH (06:10)
[2020-06-07] MEDS: LEVOTHYROXINE SODIUM 50 MCG TABLET PO SCH (06:10)
[2020-06-07] MEDS: MULTIVITAMIN TAB PO SCH (07:33)
[2020-06-07] MEDS: SOTALOL HCL 80 MG TAB PO SCH ×2 (07:33→20:00)
[2020-06-07] MEDS: busPIRone 15 MG TAB PO SCH ×2 (07:33→20:01)
[2020-06-07] MEDS: APIXABAN 5 MG TABLET PO SCH ×2 (07:34→20:02)
[2020-06-07] MEDS: carvediloL 25 MG TAB PO SCH ×2 (07:34→20:02)
[2020-06-07] MEDS: LOSARTAN POTASSIUM 50 MG TAB PO SCH (07:34)
[2020-06-07] MEDS: DICYCLOMINE HCL 10 MG CAP PO SCH ×3 (07:34→20:00)
[2020-06-07] MEDS: lamoTRIgine 100 MG TAB PO SCH ×2 (07:34→20:02)
[2020-06-07 07:36] LABS: Hematocrit (blood only) 41.7 % (37-47); Hemoglobin 13.5 g/dL (12.0-16.0); Mean Corpuscular Hgb Conc 32.4 g/dL (32-36); Mean Corpuscular Volume 92.7 fL (80-100); Mean Platelet Volume 9.8 fL (7.4-10.4); Platelet Count 217 K/uL (130-400); RDW Coefficient of Variation 15.1 % (11.5-14.5); RDW Standard Deviation 51.3 fL (36.4-46.3); White Blood Count 9.03 K/uL (4.8-10.8)
[2020-06-07] MEDS: FLUTICASONE/VILANTEROL 100/25MCG 14 PUFFS/INHALER INH SCH (07:36)
[2020-06-07] MEDS: SERTRALINE HCL 50 MG TABLET PO SCH (07:36)
[2020-06-07] MEDS: PANTOprazole 40 MG TAB PO SCH (07:36)
[2020-06-07] MEDS: MAGNESIUM OXIDE 400 MG TAB PO SCH (07:36)
[2020-06-07] MEDS: FUROSEMIDE 20 MG TAB PO SCH (10:26)
[2020-06-07] MEDS: POTASSIUM CHLORIDE 10 MEQ TABCR PO SCH (10:26)
[2020-06-07 10:36] LABS: Metanephrine, Plasma 49 pg/mL (<=57); Normetanephrine Plasma 489 pg/mL (<=148); Total Metanephrine Plasma 538 pg/mL (<=205)
--- NOTE | 2020-06-07 18:51 | Hospitalist Progress Note ---
Date of Service June 07, 2020 Assessment & Plan (1) Hypertensive emergency: Cardene drip off and she was ultimately changed from losartan 25mg daily to 100mg daily, Lasix and K were stopped, coreg 25 BID was added (sotalol was continued). She clearly has risk factors for MAURO and would benefit from an outpatient sleep study. She consistently reports not having a mask at home. BP was 160 systolic this am and Lasix/potassium was restarted with good result. Cont on this new regimen. Likely DC in am. (2) Nausea and vomiting: resolved, cont Bentyl and stool softeners as needed with encouragement to ambulate to help with daily BM regularity. Cont plan as above for BP control. (3) Paroxysmal A-fib: S/p h/o cardioversion and ablation. Rhythm controlled on sotalol. Anticoagulated on Eliquis. Continues in sinus rhythm. (4) Seizure: -Stable, no recent seizures -Continue Lamictal (5) Chronic back pain: Tizanadine TID PRN per home regimen. Cont gabapentin per home regimen. (6) Schizoaffective disorder: Disabled, has caregivers through the [employer] that help her with IADLs. (7) Bipolar I disorder: -Stable, continue home medications (8) DVT prophylaxis: Eliquis Full Code Dispo-plan for home in am. We discussed the logistics today. Theresa Mendoza DO [facility] Hospitalist Admission and Anticipated Discharge Date Admission Date: June 03, 2020 Subjective PT reports resolution of nausea BP is improving states she wants to go home has been ambulating around the hallway. Review of Systems Review of Systems: All systems reviewed & are unremarkable except as noted in Subjective Physical Exam Physical Exam: CONSTITUTIONAL: obese, vitals as above, generally well- appearing EYES: normal conjunctivae, no scleral icterus ENT: MMM RESPIRATORY: clear to auscultation bilaterally, no crackles, rales or wheezes, normal respiratory effort CARDIOVASCULAR: regular rate and rhythm, S1 and 2 heard without murmurs, gallops or rubs, no JVD, no peripheral edema GASTROINTESTINAL: soft, protuberant abdomen with large pannus, nontender, no guarding, nondistended. MUSCULOSKELETAL: head is normocephalic and atraumatic, no gross focal deficits. She is sitting in a chair at bedside. SKIN: warm and dry NEUROLOGIC: No facial palsy, no gross focal deficits. PSYCHIATRIC: alert cooperative and oriented; answering questions appropriately Results & Data Results & Data ([facility]) Vital Signs (Past 12 Hours) Vital Signs Temp Pulse Pulse Resp BP Pulse Ox 06/07/20 15:53 37.1 C 79 20 141/86 H 90 06/07/20 15:40 71 06/07/20 11:44 37.3 C 73 18 157/92 H 98 06/07/20 08:00 83 06/07/20 07:00 37.1 C 83 20 161/82 H 97 Laboratory Results Short CBC 06/07/20 Range/Units 07:17 WBC 9.03 (4.8-10.8) K/uL Hgb 13.5 (12.0-16.0) g/dL Hct 41.7 (37-47) % Plt Count 217 (130-400) K/uL Medications Administered Current Inpatient Medications Acetaminophen (Acetaminophen 325 Mg Tab) 650 mg PO Q4H PRN PRN Reason: Headache Stop: 07/04/20 07:34 Last Admin: 06/05/20 02:08 Dose: 650 mg Documented by: Apixaban (Apixaban 5 Mg Tablet) 5 mg PO BID RAVI Stop: 07/03/20 20:59 Last Admin: 06/07/20 07:34 Dose: 5 mg Documented by: Buspirone HCl (Buspirone 15 Mg Tab) 30 mg PO BID [facility] Stop: 07/03/20 20:59 Last Admin: 06/07/20 07:33 Dose: 30 mg Documented by: Carvedilol (Carvedilol 25 Mg Tab) 25 mg PO BID [facility] Stop: 07/06/20 08:59 Last Admin: 06/07/20 07:34 Dose: 25 mg Documented by: Dicyclomine HCl (Dicyclomine Hcl 10 Mg Cap) 10 mg PO TID [facility] Stop: 07/03/20 20:59 Last Admin: 06/07/20 16:22 Dose: 10 mg Documented by: Docusate Sodium (Docusate Sodium 100 Mg Cap) 100 mg PO BID PRN PRN Reason: CONSTIPATION Stop: 07/05/20 10:15 Fluticasone/Vilanterol (Fluticasone/Vilanterol 100/25mcg 14 Puffs/Inhaler) 1 puffs INH DAILY [facility] Stop: 07/04/20 08:59 Last Admin: 06/07/20 07:36 Dose: 1 puffs Documented by: Furosemide (Furosemide 20 Mg Tab) 20 mg PO QAM [facility] Stop: 07/07/20 09:29 Last Admin: 06/07/20 10:26 Dose: 20 mg Documented by: Gabapentin (Gabapentin 300 Mg Cap) 300 mg PO HS [facility] Stop: 07/03/20 20:59 Last Admin: 06/06/20 23:29 Dose: 300 mg Documented by: Lamotrigine (Lamotrigine 100 Mg Tab) 200 mg PO BID [facility] Stop: 07/03/20 20:59 Last Admin: 06/07/20 07:34 Dose: 200 mg Documented by: Levothyroxine Sodium (Levothyroxine Sodium 50 Mcg Tablet) [facility] Stop: 07/04/20 06:29 Last Admin: 06/07/20 06:10 Dose: 50 mcg Documented by: Levothyroxine Sodium (Levothyroxine Sodium 200 Mcg Tablet) [facility] Stop: 07/04/20 06:29 Last Admin: 06/07/20 06:10 Dose: 200 mcg Documented by: Losartan Potassium (Losartan Potassium 50 Mg Tab) 100 mg PO [facility] Stop: 07/06/20 08:59 Last Admin: 06/07/20 07:34 Dose: 100 mg Documented by: Magnesium Oxide (Magnesium Oxide 400 Mg Tab) 400 mg PO [facility] Stop: 07/04/20 08:59 Last Admin: 06/07/20 07:36 Dose: 400 mg Documented by: Multivitamins (Multivitamin Tab) 1 tab PO [facility] Stop: 07/04/20 08:59 Last Admin: 06/07/20 07:33 Dose: 1 tab Documented by: Ondansetron HCl (Ondansetron Inj 2 Mg/Ml 2 Ml Vial) 4 mg IV Q6H PRN PRN Reason: Nausea Stop: 07/03/20 19:32 Last Admin: 06/05/20 09:50 Dose: 4 mg Documented by: Pantoprazole Sodium (Pantoprazole 40 Mg Tab) 40 mg PO [facility]; Protocol Stop: 07/04/20 08:59 Last Admin: 06/07/20 07:36 Dose: 40 mg Documented by: Potassium Chloride (Potassium Chloride 10 Meq Tabcr) 10 meq PO DAILY [facility] Stop: 07/07/20 09:29 Last Admin: 06/07/20 10:26 Dose: 10 meq Documented by: Sertraline HCl (Sertraline Hcl 50 Mg Tablet) 150 mg PO QAM [facility] Stop: 07/04/20 08:59 Last Admin: 06/07/20 07:36 Dose: 150 mg Documented by: Sotalol HCl (Sotalol Hcl 80 Mg Tab) 40 mg PO BID [facility] Stop: 07/03/20 20:59 Last Admin: 06/07/20 07:33 Dose: 40 mg Documented by: Tizanidine HCl (Tizanidine Hcl 4 Mg Tablet) 3 mg PO TID PRN PRN Reason: back pain Stop: 07/06/20 20:59
[2020-06-07] MEDS: GABAPENTIN 300 MG CAP PO SCH (20:02)
[2020-06-08] MEDS ORDERED: MELATONIN 3 MG TAB PO PRN
[2020-06-08 04:12] VITALS: TEMP 98.2
[2020-06-08] MEDS: LEVOTHYROXINE SODIUM 200 MCG TABLET PO SCH (05:33)
[2020-06-08] MEDS: LEVOTHYROXINE SODIUM 50 MCG TABLET PO SCH (05:33)
[2020-06-08] MEDS: PANTOprazole 40 MG TAB PO SCH (07:13)
[2020-06-08] MEDS: LOSARTAN POTASSIUM 50 MG TAB PO SCH (07:14)
[2020-06-08] MEDS: POTASSIUM CHLORIDE 10 MEQ TABCR PO SCH (07:14)
[2020-06-08] MEDS: FUROSEMIDE 20 MG TAB PO SCH (07:14)
[2020-06-08] MEDS: SERTRALINE HCL 50 MG TABLET PO SCH (07:15)
[2020-06-08] MEDS: MULTIVITAMIN TAB PO SCH (07:15)
[2020-06-08] MEDS: lamoTRIgine 100 MG TAB PO SCH (07:16)
[2020-06-08] MEDS: MAGNESIUM OXIDE 400 MG TAB PO SCH (07:16)
[2020-06-08] MEDS: APIXABAN 5 MG TABLET PO SCH (07:16)
[2020-06-08] MEDS: SOTALOL HCL 80 MG TAB PO SCH (07:17)
[2020-06-08] MEDS: busPIRone 15 MG TAB PO SCH (07:17)
[2020-06-08] MEDS: carvediloL 25 MG TAB PO SCH (07:17)
[2020-06-08] MEDS: DICYCLOMINE HCL 10 MG CAP PO SCH (07:20)
[2020-06-08] MEDS: FLUTICASONE/VILANTEROL 100/25MCG 14 PUFFS/INHALER INH SCH (07:20)
[2020-06-08 09:02] LABS: BUN Creatinine Ratio 12.7 (10-20); Calcium 9.5 mg/dl (8.5-10.1); Creatinine Clr Calc Pharmacy 128.2 ml/min; Est GFR (African American) 112.5; Est GFR (Non-African American) 97.1; Magnesium 2.3 mg/dl (1.8-2.4); Phosphorus 3.2 mg/dl (2.5-4.9); Potassium 3.9 mmol/L (3.5-5.1)
[2020-06-08 09:10] VITALS: BP 164/94; PULSE 66; O2SAT 95
--- NOTE | 2020-06-08 12:28 | Discharge Summary ---
Date of Service June 08, 2020 Admission HPI Per Admitting Provider 55-year-old female with PMH paroxysmal atrial 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 s/p cardioversion and ablation and anticoagulated on Eliquis, HTN, untreated MAURO, hypothyroidism, schizoaffective disorder, bipolar disorder, epilepsy, asthma, and other problems listed below who presents the ED for evaluation of nausea, vomiting, headache. Patient reports her symptoms began a few days ago. Reports she has been unable to keep much food or liquid down. She denies hematemesis and coffee-ground emesis. No abdominal pain. Denies diarrhea, bright red bleeding per rectum, dark tarry stools. No fevers or chills. She reports a mild headache. Denies chest pain shortness of breath. No lightheadedness, dizziness, diaphoresis, syncopal events. She denies urinary symptoms. No sick contacts. She reports she was unable take her medications this morning. In the ED, BP significantly elevated 220s/110s despite hydralazine and labetalol. HR stable, saturating well on room air. Labs unremarkable. CT ABD/pelvis shows moderate fecal retention, otherwise unremarkable. Head CT negative for acute intracranial findings. COVID-19 testing negative. Case was discussed with operations management professionals Dr. Golden, patient will be started on nitro drip and transferred to ICU. Admission Exam Per Admitting Provider On examination She is obese and is in distress at rest due to abdominal discomfort and headache Her blood pressure noted to be very high Chest-clear to auscultate bilaterally Heart-S1-S2, regular Abdomen-benign Extremities-trace edema bilaterally PLANNING OFFICIAL-alert, awake and oriented x3. No focal sensory and motor deficit appreciated Principal Diagnosis Hypertensive Emergency Catecholamine excess Discharge Data Allergies Allergy/AdvReac Type Severity Reaction Status Date / Time Hydantoins Allergy Unknown Hives Verified 06/03/20 11:16 phenytoin Allergy Unknown Nausea Verified 06/03/20 11:16 adhesive Allergy RASH, ITCHY Verified 06/03/20 11:16 ethyl alcohol AdvReac Severe Seizure Verified 06/03/20 11:16 thioridazine AdvReac Severe SEIZURES Verified 06/03/20 11:16 Consultations 06/03/20 13:47 ED Decision to Admit Stat 06/03/20 17:47 Consult Fire Investigator Routine 06/04/20 09:38 Consult Case Management - Discharge Planning Routine Ordered Studies 06/03/20 11:04 CT abd pelvis wo con Stat 06/03/20 14:44 CT head/brain wo con Urgent Hospital Course (1) Hypertensive emergency: (2) High catecholamines: (3) Nausea and vomiting: (4) Paroxysmal A-fib: (5) Chronic back pain: (6) Schizoaffective disorder: (7) Bipolar I disorder: The patient is a 55-year-old female who presented with nausea vomiting and dehydration and was found to have significant hypertension. In the ER her EKG was unremarkable with a normal sinus rhythm. She was given IV Zofran and IV hydralazine and was hydrated with normal saline. She had an unremarkable urinalysis and was given additional symptom control with Reglan and Benadryl. A CT scan of the abdomen and pelvis was negative for acute pathology. She also demonstrated increased somnolence and fatigue on presentation. Blood pressure on arrival was 222/141. As this was unable to be adequately controlled and her symptoms persisted she was admitted to the hospitalist service into the intensive care unit. Intravenous nitroglycerin was started. A CT of her head was negative, troponin was negative, and creatinine was within normal limits. Serum metanephrines were drawn to rule out pheochromocytoma and were elevated, having returned just prior to discharge. That evening she converted to atrial 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 with rapid ventricular response, having a known history of atrial 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. Several doses of Lopressor were used intravenously to control her heart rate. Nitroglycerin was switched to intravenous nicardipine. She was able to tolerate oral medications the following morning and remained in the ICU for continued stabilization of blood pressure and titration of medications. An echocardiogram was performed on 06/04 revealing normal left ventricular size and wall thickness with normal left ventricular systolic function. An ejection fraction of 60 to 65% was noted. There were no left ventricular wall motion abnormalities that were noted. The patient had a grade 2 diastolic dysfunction. Valve structures were poorly visualized but she appeared without significant stenosis or regurgitation by Doppler. Regarding her somnolence, obesity and daytime fatigue, we discussed that she did have a history of a sleep study in the past but reported no history of masking use. The records reflect a history of MAURO, but again the patient is unaware of using a CPAP mask. Interestingly she did tell me she used one previously, but had been noncompliant for the past couple of months because the mask caused her claustrophobia. A repeat sleep study and assessment of this home situation was recommended in the outpatient setting. She was transferred to the floor and remained stable for 24 hours. Her plasma metanephrines came back elevated and further work-up with an abdominal MRI was recommended as the CT abdomen pelvis did not show any localized anatomic source. Abdominal MRI will be more sensitive to locate this. I discussed this with the patient and this can be ordered as outpatient. At time of discharge she was hemodynamically stable and afebrile and tolerating p.o. All initial symptoms have resolved and she was feeling back to baseline. She was sent home in stable condition with close primary care follow-up recommended. Total Time Total Time Spent Total Time Spent (In Minutes): 60 Total Time Includes: Examination of the Patient, Discharge Planning, Medication Reconciliation and Communication With Other Providers Discharge Plan Discharge Items Patient Disposition: Home - Home Health Services Reason For Visit: HTN EMERGENCY Discharge Diagnosis: Hypertensive Emergency Catecholamine excess Condition on Discharge: Good Activity: Resume your previous activity Non-emergency contact: Primary Care Provider Call non-emergency contact if: you have any medication questions, your symptoms worsen and you have a fever Follow-up/Referrals: Brian Salas DO [Primary Care Provider] - (Date & Time 06/11/2020 1:40 PM Provider Brian Salas DO Department [facility] ) Diet: Low Sodium (2gm) Addtl Attending Provider Instructions: Please take all medications as instructed on discharge list below. It is recommended that you follow-up with your primary care provider (PCP) within one week of this hospital stay to recheck your blood pressure and ensure you are still doing well on the new medications. Repeat non-fasting blood work is also recommended at this time to monitor your kidneys and electrolytes after medication changes. This may be ordered by your PCP. At this time, please also consider having your PCP place a referral to sleep medicine for a sleep study to screen you for sleep apnea. Your metanephrines were elevated in the hospital, suggesting a secondary cause of your elevated blood pressure. It will be important that you not only have close follow-up with your PCP in the next few days for a repeat blood pressure check, but it is also recommended you undergo an abdominal MRI which will screen you for any tumor that may be producing this. The CT of your abdomen and pelvis that was performed here did not show any evidence of a tumor or new growth, but an MRI would be more sensitive. It was a pleasure taking care of you! Please call if you have any questions or problems. You can reach a [facility] hospitalist on duty at [facility] 24 hours a day by calling [phone]. Take care of yourself. Theresa Mendoza, DO [facility] Hospitalist Pending Studies at Discharge: No Stand-Alone Forms: My [facility] Medications and DC Order Prescriptions: New carvedilol 25 mg Tablet 25 mg PO BID Qty: 60 RF: 1 losartan 100 mg tablet 100 mg PO DAILY Qty: 30 RF: 1 Continued multivitamin Tablet 1 tab PO QAM RF: 0 lamotrigine [Lamictal] 200 mg Tablet 200 mg PO BID RF: 0 tizanidine 2 mg Tablet 3 mg PO TID RF: 0 sotalol 80 mg Tablet 40 mg PO BID RF: 0 levothyroxine 200 mcg Tablet 200 mcg PO QAM RF: 0 furosemide 20 mg Tablet 20 mg PO QAM RF: 0 albuterol sulfate [ProAir HFA] 90 mcg/actuation Hfa Aerosol Inhaler 2 puff INHALATION Q4H PRN (Reason: Shortness Of Breath) RF: 0 dicyclomine 10 mg Capsule 10 mg PO TID RF: 0 Eliquis 5 mg Tablet 5 mg PO BID RF: 0 riboflavin (vitamin B2) [Vitamin B-2] 100 mg Tablet 400 mg PO QAM RF: 0 potassium chloride [Klor-Con 10] 10 mEq Tablet Extended Release 10 meq PO MOTUWETHFR RF: 0 levothyroxine 50 mcg Tablet 50 mcg PO QAM RF: 0 buspirone 30 mg Tablet 30 mg PO BID RF: 0 sertraline 100 mg tablet 150 mg PO QAM RF: 0 famotidine 40 mg tablet 20 mg PO BID RF: 0 docusate sodium 100 mg capsule 100 mg PO BID RF: 0 Breo Ellipta 100-25 mcg/dose blister with device 1 inh INHALATION DAILY RF: 0 gabapentin 300 mg capsule 300 mg PO HS RF: 0 magnesium oxide 400 mg magnesium Tablet 400 mg PO QAM RF: 0 calcium polycarbophil [Fiber (calcium polycarbophil)] 625 mg Tablet 625 mg PO BID RF: 0 fluticasone propionate [Flonase Allergy Relief] 50 mcg/actuation [place],Suspension 1 spray INTRANASAL QAM RF: 0 omeprazole magnesium [Prilosec OTC] 20 mg Tablet,Delayed Release (Dr/Ec) 20 mg PO QAM RF: 0 Discontinued losartan 25 mg tablet 25 mg PO QAM RF: 0 Discharge Orders: Discharge Order (Routine); Ordered 06/08/20 Ordered By: Theresa Mendoza Admission Data Admit Date/Time: 06/03/20 16:16 Attending Provider: Theresa Mendoza Admit Provider: Argelia Washburn Primary Care Provider: Brian Salas Other Providers: [facility] ; Argelia Washburn ; Cathleen Golden Other Interventions: Discharge Summary Assessment (RN) Last Done: 06/08/20 11:39
[2020-06-11 22:41] LABS: Creatinine, Random Urine 110 mg/dL (20-275); Total Metanephrine 2079 mcg/g cr (149-603)
== END 2020-06-08 14:10 | disposition home health service (06) | DRG 305 ==
LOC: ED 09:32 → 1E 16:16 → SUATTDRO 16:16 → 1E 17:14 → 2W 06-06 14:37

== ENCOUNTER 2022-02-17 15:07 | Inpatient (IN) ==
[2022-02-17 16:02] LABS: Mean Corpuscular Hemoglobin 23.9 pg (25.0-34.0); Mean Corpuscular Hgb Conc 29.2 g/dL (32.0-36.0); Mean Corpuscular Volume 81.9 fL (80.0-100.0); Platelet Count 233 K/uL (130-400); RDW Coefficient of Variation 17.4 % (11.5-14.5); RDW Standard Deviation 51.7 fL (36.4-46.3); Red Blood Count 2.93 M/uL (3.93-5.22); White Blood Count 7.42 K/ul (4.8-10.8)
[2022-02-17 16:06] LABS: INR 1.1 (0.9-1.1); Prothrombin Time 11.4 Seconds (9.0-12.0)
[2022-02-17 16:20] LABS: Anisocytosis Present; Basophils # (auto) 0.08 K/uL (0-0.2); Basophils % (auto) 1.1 %; Eosinophils # (auto) 0.04 K/uL (0-0.50); Eosinophils % (auto) 0.5 %; Immature Granulocytes # (auto) 0.02 K/uL (0.00-0.02); Immature Granulocytes % (auto) 0.3 %; Lymphocytes # (auto) 1.01 K/uL (1.2-3.4); Lymphocytes % (auto) 13.6 %; Monocytes # (auto) 0.76 K/uL (0.24-0.82); Monocytes % (auto) 10.2 %; Neutrophils # (auto) 5.51 K/uL (1.4-6.5); Neutrophils % (auto) 74.3 %; Polychromasia 1+; Stomatocytes 1+; Tear Drop Cells 1+
[2022-02-17] MEDS ORDERED: SODIUM CHLORIDE 0.9% 250 ML IV PRN ×2 (16:21→16:22)
[2022-02-17 16:28] LABS: Albumin Globulin Ratio 1.1 (0.9-2); Albumin Level 3.8 gm/dl (3.4-5.0); Bilirubin,Total 0.3 mg/dl (0.2-1.0); Calcium 9.2 mg/dl (8.5-10.1); Creatinine Clr Calc Pharmacy 113.2 ml/min; Est GFR (African American) 88.8 ml/min; Est GFR (Non-African American) 76.6 ml/min; Globulin 3.5 gm/dl (2.5-4.0); Potassium 3.8 mmol/L (3.5-5.1); Total Protein 7.3 gm/dl (6.0-8.3)
[2022-02-17 16:47] LABS: Appearance Urine Clear (Clear); Bilirubin Urine Negative (Negative); Blood Urine Negative (Negative); Color Urine Yellow; Glucose Urine UA Negative (Negative); Ketones Urine Negative (Negative); Leukocyte Esterase Urine Negative (Negative); Nitrite Urine Negative (Negative); Protein Urine Negative (Negative); Specific Gravity Urine 1.011 (1.000-1.030); Urobilinogen Urine Negative (Negative)
--- NOTE | 2022-02-17 16:56 | Electrocardiogram Report ---
Test Reason : Blood Pressure : / mmHG Vent. Rate : 093 BPM Atrial Rate : 093 BPM P-R Int : 162 ms QRS Dur : 090 ms QT Int : 382 ms P-R-T Axes : 047 058 081 degrees QTc Int : 474 ms Normal sinus rhythm Normal ECG When compared with ECG of 16-DEC-2020 18:12, Nonspecific T wave abnormality now evident in Lateral leads Confirmed by Rusty Haynes ([id number]) on 02/17/2022 4:56:17 PM Referred By: Confirmed By:Rusty Haynes
--- NOTE | 2022-02-17 17:04 | History & Physical Report ---
Date of Service February 17, 2022 Assessment & Plan (1) Symptomatic anemia: (2) History of iron deficiency anemia: Plan: Patient is 56 y/o F with PMH paroxysmal atrial flutter on chronic Eliquis, HTN, dyslipidemia, asthma, chronic diastolic heart failure, MAURO, positive SOFIA, RLS, hypothyroidism, GERD, IBS, bipolar disorder presented to ER for abnormal labs- low hemoglobin. Reported increased exertional SOB, dizziness with standing the past month. Outpatient labs drawn today, hemoglobin 6.6. Denies melena, hematochezia, vaginal bleeding History of iron deficiency anemia not responding to oral iron supplement and has been following with hematology. Had IV monofer for 07/20/2021 and 10/18/2021. History colonoscopy 12/03/21 with results of normal colon Today in ER vitals stable. Hgb: 7.0 (Hgb: 9.4 in 11/11/21) Transfuse 1 Unit PRBC and repeat H&H Anemia labs pending Will need continued follow up with hematology and possible further IV iron CBC in am (3) Paroxysmal A-fib: Plan: History paroxysmal atrial flutter s/p cardioversion 2016, 2018, s/p ablation 2019 On chronic Eliquis Continue sotalol, Eliquis (4) Asthma: Plan: No acute exacerbation Continue home inhalers (5) Bipolar I disorder: Plan: Continue home meds (6) Positive SOFIA (antinuclear antibody): Plan: Follows with rheumatology-Dr. Wu Continue Plaquenil (7) Chronic diastolic (congestive) heart failure: Plan: History echo 02/03/2022: EF: 63%, grade 2 diastolic dysfunction Appears euvolemic Continue Lasix (8) MAURO (obstructive sleep apnea): Plan: BiPAP at bedtime (9) RLS (restless legs syndrome): Plan: Continue gabapentin, ropinirole DVT Prophylaxis On Eliquis DNR/DNI as per discussion with pt Follows with Himanshu for routine care Pt was seen and care coordinated with Dr Wagner. See addendum History of Present Illness Chief Complaint: Abnormal labs Primary Care Provider: Brian Salas DO Patient is 56 y/o F with PMH paroxysmal atrial flutter on chronic Eliquis, HTN, dyslipidemia, asthma, chronic diastolic heart failure, MAURO, positive SOFIA, RLS, hypothyroidism, GERD, IBS, bipolar disorder presented to ER for abnormal labs- low hemoglobin. Patient reports had routine outpatient labs drawn today, hemoglobin 6.6. Patient with history of iron deficiency anemia not responding to oral iron supplement and has been following with hematology. Had IV monofer for 07/20/2021 and 10/18/2021. Patient reports she was to have additional IV iro n however she did not follow-up. History colonoscopy 12/03/21 with results of normal colon. Patient reports past month has had increased shortness of breath with exertion, generalized fatigue, intermittent dizziness with standing. Denies chest pain, syncope. Reports chronic BLE edema, improved on Lasix and with elevation of lower extremities. Denies fever/chills, diaphoresis, N/V/D/C, melena, hematochezia, CARRILLO, vision changes, neck pain, CP, palpitations, cough, sore throat, choking, otalgia, rhinorrhea, abdominal pain, paresthesias, extremity weakness, rashes, urinary symptoms. Allergies Allergy/AdvReac Type Severity Reaction Status Date / Time adhesive Allergy Intermediate RASH, ITCHY Verified 02/17/22 16:46 Hydantoins Allergy Intermediate Hives Verified 02/17/22 16:46 ethyl alcohol AdvReac Severe Seizure Verified 02/17/22 16:46 thioridazine AdvReac Severe SEIZURES Verified 02/17/22 16:46 phenytoin AdvReac Intermediate Nausea Verified 02/17/22 16:46 Home Medications Medication Instructions Recorded Confirmed Type albuterol sulfate 90 mcg/actuation 2 puff inhalation Q4 PRN Wheezing 12/16/20 02/17/22 History aerosol inhaler apixaban 5 mg tablet (Eliquis) 5 mg PO AMHS 12/16/20 02/17/22 History carvedilol 25 mg tablet 25 mg PO BIDM 12/16/20 02/17/22 History fluticasone furoate 100 1 inh inhalation QA 12/16/20 02/17/22 History mcg-vilanterol 25 mcg/dose inhalation powder (Breo Ellipta) lamotrigine 200 mg tablet 200 mg PO AMHS 12/16/20 02/17/22 History levothyroxine 75 mcg tablet 75 mcg PO QAM 12/16/20 02/17/22 History losartan 100 mg tablet 100 mg PO QA 12/16/20 02/17/22 History mirtazapine 30 mg tablet 30 mg PO HS 12/16/20 02/17/22 History omeprazole 40 mg capsule,delayed 40 mg PO QAM 12/16/20 02/17/22 History release potassium citrate 10 mEq (1,080 10 meq PO QDL 12/16/20 02/17/22 History mg) tablet,extended release sertraline 100 mg tablet 100 mg PO QAM 12/16/20 02/17/22 History sotalol 80 mg tablet 40 mg PO AMHS 12/16/20 02/17/22 History montelukast 10 mg tablet 10 mg PO HS 10/01/21 02/17/22 History (Singulair) duloxetine 30 mg capsule,delayed 30 mg PO QAM 11/02/21 02/17/22 History release hydrochlorothiazide 12.5 mg tablet 12.5 mg PO QAM 11/02/21 02/17/22 History ropinirole 1 mg tablet 1 mg PO UD 11/02/21 02/17/22 History rosuvastatin 5 mg tablet 5 mg PO HS 11/02/21 02/17/22 History tizanidine 4 mg capsule (Zanaflex) 4 mg PO HS PRN Pain 11/02/21 02/17/22 History buspirone 15 mg tablet 15 mg PO TID 02/17/22 02/17/22 History furosemide 40 mg tablet (Lasix) 40 mg PO AMHS 02/17/22 02/17/22 History gabapentin 300 mg capsule 300 mg PO HS 02/17/22 02/17/22 History hydralazine 50 mg tablet 50 mg PO TID 02/17/22 02/17/22 History hydroxychloroquine 200 mg tablet 400 mg PO HS 02/17/22 02/17/22 History hydroxyzine HCl 25 mg tablet 25 mg PO DAILY PRN Anxiety 02/17/22 02/17/22 History levothyroxine 200 mcg tablet 200 mcg PO QAM 02/17/22 02/17/22 History paliperidone 3 mg tablet,extended 3 mg PO HS 02/17/22 02/17/22 History release 24 hr paliperidone 9 mg tablet,extended 9 mg PO HS 02/17/22 02/17/22 History release 24 hr tiotropium bromide 2.5 1 puff inhalation HS 02/17/22 02/17/22 History mcg/actuation mist for inhalation (Spiriva Respimat) Past Med/Surg History Medical History Anxiety and depression Asthma rare res inh use Bipolar 1 disorder Chronic back pain Degenerative disc disease Dyslipidemia Epilepsy hx of, last one in Fibromyalgia GERD (gastroesophageal reflux disease) Hypertension Hypothyroidism IBS (irritable bowel syndrome) Lumbar pain with radiation down both legs Lumbar post-laminectomy syndrome Migraine Morbid obesity Osteoarthritis Paroxysmal A-fib follows with Eduardo Gonsalez > Maryquis RLS (restless legs syndrome) Sacroiliac joint pain Schizoaffective disorder Sleep apnea cpap Spinal stenosis Surgical History History of carpal tunnel release LEFT History of cataract surgery RT/LEFT History of cholecystectomy History of colonoscopy History of endoscopic sinus surgery History of tonsillectomy and adenoidectomy History of tooth extraction ALL UPPER TEETH EXTRACTIONS History of total abdominal hysterectomy and bilateral salpingo-oophorectomy Nausea and vomiting after administration of anesthetic agent S/P foot surgery, left X2 Status post lumbar spine surgery for decompression of spinal cord + RODS Family History Father Family history of diabetes mellitus Coronary heart disease Mother Lung cancer Sister Alive and well Brother Alive and well Other No family history of adverse response to anesthesia Social History Smoking Status: Former smoker Second Hand Exposure: Yes (IN THE PAST); Hx Alcohol Use: No Hx Substance Use: No Preferred Language: Qatari Communication Ability: Effective Visual Impairment: No Limitations 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: Normal Spot Cleaner Required: No Beliefs That Will Affect Care: None marital status: Current Living Situation: Alone current occupational status: disabled Feels Safe at Home: Yes Safety Concerns: Feels Safe At This Time Assistive Devices: BiPap, Denture - Upper, Glasses and Walker Review of Systems Review of Systems: All systems reviewed & are unremarkable except as noted in HPI & below Physical Exam Physical Exam: General: no distress, obese Head: normocephalic, atraumatic Eyes: conjunctiva non-injected, anicteric, pale conjunctiva ENT: normal inspection external ears, nose, mucous membranes moist Neck: supple, trachea midline Lungs: clear, no respiratory distress, no wheezing/rhonchi/rales CV: RRR, no murmur, no pretibial edema Abd: protuberant, normal BS, soft, non-tender Ext: no cyanosis, no calf tenderness Neuro: A&O x 3, no focal deficits noted, normal affect Skin: warm, dry Results & Data Results & Data ([facility]) Vital Signs (Past 12 Hours) Vital Signs Temp Pulse Pulse Resp BP BP Pulse Ox 02/17/22 16:26 95 02/17/22 16:22 87 20 149/90 H 97 02/17/22 15:04 97 H 18 172/91 H 95 02/17/22 15:04 36.6 C 97 H 18 172/91 H 95 O2 Del Method 02/17/22 16:26 Room Air 02/17/22 16:22 Room Air 02/17/22 15:04 Room Air 02/17/22 15:04 Room Air Laboratory Results Short CBC 02/17/22 Range/Units 15:18 WBC 7.42 (4.8-10.8) K/ul Hgb 7.0 L (12.0-16.0) g/dl Hct 24.0 L (34.1-44.9) % Plt Count 233 (130-400) K/uL BMP 02/17/22 15:18 Sodium 137 Potassium 3.8 Chloride 96 L Carbon Dioxide 32 BUN 16 Creatinine 0.84 Glucose 137 H Calcium 9.2 Liver Function 02/17/22 Range/Units 15:18 Total Bilirubin 0.3 (0.2-1.0) mg/dl AST 13 (13-39) U/L ALT 11 (7-52) U/L Alkaline Phosphatase 89 (34-104) U/L Albumin 3.8 (3.4-5.0) gm/dl Urine 02/17/22 Range/Units 16:20 Urine Color Yellow Urine Appearance Clear (Clear) Urine pH 7.0 (4.5-7.5) Ur Specific [place] 1.011 (1.000-1.030) Urine Protein Negative (Negative) Urine Glucose (UA) Negative (Negative) Diagnostic Findings Chest X-Ray 02/17/22 18:32 SINGLE VIEW CHEST CLINICAL HISTORY: Dyspnea. FINDINGS: An AP, portable, upright chest radiograph is compared to study dated 12/16/2020. Correlation is made with chest CT dated 09/10/2015. The examination is degraded by large body habitus, portable technique, and apical lordotic positioning. The cardiomediastinal silhouette is normal for projection. There is mild bibasilar atelectasis. The lungs and pleural spaces are otherwise clear. There is no pneumothorax. The bony thorax is grossly intact. IMPRESSION: No active disease in the chest. ACT 112: Negative or not required by law. Electronically signed by: Gurinder Staley M.D. 02/17/2022 7:39 PM Supervising Physician Co-Signing Physician Notes This is an attending cosign note for full report of documentation please see full dictation by CLAUDIA following in the synopsis. Patient presenting after patient had conducted routine labs noted to be anemic hemoglobin dropped from 9.4-6.6. Patient has been feeling weak and tired in recent weeks. Patient does follow-up with hematology as an outpatient for iron deficiency anemia receiving intermittent IV iron infusions. Head atraumatic chest clear abdomen soft nontender. Alert. Patient will receive single PRBC transfusion. Patient will need follow-up
[2022-02-17 17:05] LABS: Reticulocyte % 2.8 % (0.5-2.0); Reticulocytes # 0.08 10^6/uL (0.02-0.10)
[2022-02-17] MEDS ORDERED: ACETAMINOPHEN 325 MG TAB PO PRN (19:20)
[2022-02-17] MEDS ORDERED: ALBUTEROL HFA 8 GM INHALER INH PRN (19:20)
[2022-02-17] MEDS ORDERED: POLYETHYLENE (MIRALAX) 17 GM PACK PO PRN (19:20)
[2022-02-17] MEDS ORDERED: ONDANSETRON INJ 2 MG/ML 2 ML VIAL IV PRN (19:20)
--- NOTE | 2022-02-17 19:40 | XRay Report ---
SINGLE VIEW CHEST CLINICAL HISTORY: Dyspnea. FINDINGS: An AP, portable, upright chest radiograph is compared to study dated 12/16/2020. Correlation is made with chest CT dated 09/10/2015. The examination is degraded by large body habitus, portable t echnique, and apical lordotic positioning. The cardiomediastinal silhouette is normal for projection. There is mild bibasilar atelectasis. The lungs and pleural spaces are otherwise clear. There is no p neumothorax. The bony thorax is grossly intact. IMPRESSION: No active disease in the chest. ACT 112: Negative or not required by law. Electronically signed by: Gurinder Satley M.D. 02/17/2022 7:39 PM
[2022-02-17 20:54] LABS: Magnesium 1.9 mg/dl (1.7-2.4); Phosphorus 3.7 mg/dl (2.5-4.9)
[2022-02-17] MEDS: SOTALOL HCL 80 MG TAB PO SCH (20:55)
[2022-02-17] MEDS: hydrALAZINE TAB 50 MG TAB PO SCH (20:57)
[2022-02-17] MEDS: lamoTRIgine 100 MG TAB PO SCH (20:57)
[2022-02-17 20:58] LABS: Ferritin 7.4 ng/ml (8-388)
[2022-02-17] MEDS: busPIRone 15 MG TAB PO SCH (20:58)
[2022-02-17] MEDS: FUROSEMIDE 40 MG TAB PO SCH (20:58)
[2022-02-17] MEDS: APIXABAN 5 MG TABLET PO SCH (20:59)
[2022-02-17] MEDS ORDERED: MONTELUKAST SODIUM 10 MG TABLET PO SCH (21:00)
[2022-02-17] MEDS ORDERED: UMECLIDINIUM BROMIDE 62.5MCG/BLISTER 7 PUFFS/INHALER INH SCH (21:00)
[2022-02-17] MEDS ORDERED: ROSUVASTATIN CALCIUM 5 MG TAB PO SCH (21:00)
[2022-02-17] MEDS ORDERED: PALIPERIDONE 3 MG TABCR PO SCH ×2 (21:00)
[2022-02-17] MEDS ORDERED: HYDROXYCHLOROQUINE SULFATE 200 MG TAB PO SCH (21:00)
[2022-02-17] MEDS ORDERED: MIRTAZAPINE TAB 15 MG TAB PO SCH (21:00)
[2022-02-17] MEDS ORDERED: GABAPENTIN 300 MG CAP PO SCH (21:00)
[2022-02-17] MEDS: rOPINIRole HCL 1 MG TABLET PO SCH (21:00)
[2022-02-17 21:15] LABS: Folate (Folic Acid) 15.98 ng/ml (>5.38)
--- NOTE | 2022-02-17 22:43 | Emergency Department Note ---
Impression & Plan Symptomatic anemia, History of iron deficiency anemia, Dyspnea ED Provider Note NAME: YISEL MCGEE AGE: 56 SEX: F ARRIVES VIA: Ambulance INFORMANT: Patient ED PROVIDER(S): Tony Izquierdo MD CHIEF COMPLAINT: SOB, anemia, referred. PLAN: Disposition: Admit MEDICAL DECISION MAKING: The patient is a pleasant 56-year-old woman with a past medical history of asthma, paroxysmal atrial 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 on Eliquis, iron deficiency anemia, MAURO, hypertension, morbid obesity, schizoaffective disorder, epilepsy, asthma who presents to the emergency department for evaluation of worsening shortness of breath from baseline with outpatient blood work that showed worsening anemia in the setting of being managed for iron deficiency anemia. Her hemoglobin on her outpatient testing today was 6.6. The patient denies any bloody or black stools. She is a poor historian on why she is anemic however per her [facility] records suspicion is for iron deficiency anemia. The patient has been taking iron oral supplements but this has not been effective. On arrival the patient is fatigued appearing in no acute distress, afebrile with blood pressure 170s/90s, HR 90s and vital signs otherwise sable vital signs. She has mild pallor. Abdomen is benign. EKG without overt acute ischemia. CXR negative for acute cardiopulmonary process. WBC 7.4K within normal limits. Platelets within normal limits. H/H 7/24 which is improved from a hemoglobin of 6.4 outpatient however certainly fluctuating with a range appropriate for transfusion given symptomatic anemia. Chemistry without metabolic acidosis. Electrolytes and LFTs unremarkable. Iron deficiency is present. LFTs are unremarkable. UA without evidence of infection. Covid-19 RNA, NAAT negative. The patient did consent to have blood transfusion. She was ordered for 2 units of PRBCs. Patient agrees with plan for admission. Case was discussed with Anjana Thibodeaux, [facility] PAC, with Dr. Wagner, [facility] hospitalist who will evaluate the patient for admission. Triage Nursing notes reviewed and agree them. Prior medical records reviewed Vital Signs: reviewed and remarkable for hypertension. Differential diagnosis: Infection, dehydration, metabolic abnormality, hypo/hyperglycemia, electrolyte disturbance, anemia, hypoxia, cardiac sources, intracerebral event, toxicologic, neurologic, as well as other pathologies. ER treatment provided: See below. Diagnostics interpreted by me: ECG: Normal sinus rhythm, 93 bpm, no ectopy, nonspecific T wave abnormality, no overt ST elevation or depression, QTC 474, QRS 90 Cardiac Monitoring: An order for continuous cardiac monitoring was placed and demonstrated Normal sinus rhythm, 93 bpm, no ectopy. Laboratory studies: See below Imaging studies: See below Consultation(s): Anjana Thibodeaux, [facility], with Dr. Wagner, [facility] hospitalist HPI: The patient is a pleasant 56-year-old woman with a past medical history of asthma, paroxysmal atrial 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 on Eliquis, iron deficiency anemia, MAURO, hypertension, morbid obesity, schizoaffective disorder, epilepsy, asthma who presents to the emergency department for evaluation of worsening shortness of br eath from baseline with outpatient blood work that showed worsening anemia in the setting of being managed for iron deficiency anemia. Her hemoglobin on her outpatient testing today was 6.6. The patient denies any bloody or black stools. She is a poor historian on why she is anemic however per her [facility] records suspicion is for iron deficiency anemia. The patient has been taking iron oral supplements but this has not been effective. ROS: See above HPI for pertinent positives & negatives. A total of 10 systems reviewed and were otherwise negative. VITALS:See Below PHYSICAL EXAMINATION: GENERAL: Awake, alert, fatigued-appearing, in no distress, BMI 53.9. HENT: Normocephalic, atraumatic. Oropharynx with dry mucous membranes and otherwise unremarkable. EYES: Normal conjunctiva. Sclera non-icteric. NECK: Supple. No nuchal rigidity. FROM. No JVD. RESPIRATORY: Clear to auscultation. CARDIAC: Regular rate, normal rhythm. Extremities warm and well perfused. Pulses equal. ABDOMEN: Soft, non-distended. No tenderness to palpation. No rebound or guarding. No masses. RECTAL: Deferred. MUSCULOSKELETAL: Chest examination reveals no tenderness. The back is symmetrical on inspection without obvious abnormality. There is no CVA tenderness to palpation. No joint edema. LOWER EXTREMITIES: Calves are equal size bilaterally and non-tender. No edema. No discoloration. NEURO: Normal sensorium. No sensory or motor deficits noted. SKIN: Mild pallor. No rash or jaundice noted. ED COURSE: Critical Care: I have personally spent greater than 45 minutes of critical care time in the direct management of this patient. This includes bedside care, interpretation of diagnostic studies, and testing, discussion with consultants, patient, and family members, and other required patient management activities. This 45 minutes is in excess of all separately billable procedures. Tony Izquierdo MD Past Med/Surg History Medical History Anxiety and depression Asthma rare res inh use Bipolar 1 disorder Chronic back pain Degenerative disc disease Dyslipidemia Epilepsy hx of, last one in Fibromyalgia GERD (gastroesophageal reflux disease) Hypertension Hypothyroidism IBS (irritable bowel syndrome) Lumbar pain with radiation down both legs Lumbar post-laminectomy syndrome Migraine Morbid obesity Osteoarthritis Paroxysmal A-fib follows with Eduardo Wallace > Eliquis RLS (restless legs syndrome) Sacroiliac joint pain Schizoaffective disorder Sleep apnea cpap Spinal stenosis Surgical History History of carpal tunnel release LEFT History of cataract surgery RT/LEFT History of cholecystectomy History of colonoscopy History of endoscopic sinus surgery History of tonsillectomy and adenoidectomy History of tooth extraction ALL UPPER TEETH EXTRACTIONS History of total abdominal hysterectomy and bilateral salpingo-oophorectomy Nausea and vomiting after administration of anesthetic agent S/P foot surgery, left X2 Status post lumbar spine surgery for decompression of spinal cord + RODS Family History Father Family history of diabetes mellitus Coronary heart disease Mother Lung cancer Sister Alive and well Brother Alive and well Other No family history of adverse response to anesthesia Social History Smoking Status: Former smoker Second Hand Exposure: Yes (IN THE PAST); Hx Alcohol Use: No Hx Substance Use: No Preferred Language: [place] Communication Ability: Effective Visual Impairment: No Limitations 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: Normal General Education Professor Required: No Beliefs That Will Affect Care: None marital status: Current Living Situation: Alone current occupational status: disabled Feels Safe at Home: Yes Safety Concerns: Feels Safe At This Time Assistive Devices: BiPap, Denture - Upper, Glasses and Walker Allergies Allergies Allergy/AdvReac Type Severity Reaction Status Date / Time adhesive Allergy Intermediate RASH, ITCHY Verified 02/17/22 16:46 Hydantoins Allergy Intermediate Hives Verified 02/17/22 16:46 ethyl alcohol AdvReac Severe Seizure Verified 02/17/22 16:46 thioridazine AdvReac Severe SEIZURES Verified 02/17/22 16:46 phenytoin AdvReac Intermediate Nausea Verified 02/17/22 16:46 Home Meds Home Medications Medication Instructions Recorded Confirmed albuterol sulfate 90 mcg/actuation 2 puff inhalation Q4 PRN Wheezing 12/16/20 02/17/22 aerosol inhaler apixaban 5 mg tablet (Eliquis) 5 mg PO AMHS 12/16/20 02/17/22 carvedilol 25 mg tablet 25 mg PO BIDM 12/16/20 02/17/22 fluticasone furoate 100 1 inh inhalation QA 12/16/20 02/17/22 mcg-vilanterol 25 mcg/dose inhalation powder (Breo Ellipta) lamotrigine 200 mg tablet 200 mg PO AMHS 12/16/20 02/17/22 levothyroxine 75 mcg tablet 75 mcg PO QAM 12/16/20 02/17/22 losartan 100 mg tablet 100 mg PO QAM 12/16/20 02/17/22 mirtazapine 30 mg tablet 30 mg PO HS 12/16/20 02/17/22 omeprazole 40 mg capsule,delayed 40 mg PO QAM 12/16/20 02/17/22 release potassium citrate 10 mEq (1,080 10 meq PO QDL 12/16/20 02/17/22 mg) tablet,extended release sertraline 100 mg tablet 100 mg PO QAM 12/16/20 02/17/22 sotalol 80 mg tablet 40 mg PO AMHS 12/16/20 02/17/22 montelukast 10 mg tablet 10 mg PO HS 10/01/21 02/17/22 (Singulair) duloxetine 30 mg capsule,delayed 30 mg PO QAM 11/02/21 02/17/22 release hydrochlorothiazide 12.5 mg tablet 12.5 mg PO QAM 11/02/21 02/17/22 ropinirole 1 mg tablet 1 mg PO UD 11/02/21 02/17/22 rosuvastatin 5 mg tablet 5 mg PO HS 11/02/21 02/17/22 tizanidine 4 mg capsule (Zanaflex) 4 mg PO HS PRN Pain 11/02/21 02/17/22 buspirone 15 mg tablet 15 mg PO TID 02/17/22 02/17/22 furosemide 40 mg tablet (Lasix) 40 mg PO AMHS 02/17/22 02/17/22 gabapentin 300 mg capsule 300 mg PO HS 02/17/22 02/17/22 hydralazine 50 mg tablet 50 mg PO TID 02/17/22 02/17/22 hydroxychloroquine 200 mg tablet 400 mg PO HS 02/17/22 02/17/22 hydroxyzine HCl 25 mg tablet 25 mg PO DAILY PRN Anxiety 02/17/22 02/17/22 levothyroxine 200 mcg tablet 200 mcg PO QAM 02/17/22 02/17/22 paliperidone 3 mg tablet,extended 3 mg PO HS 02/17/22 02/17/22 release 24 hr paliperidone 9 mg tablet,extended 9 mg PO HS 02/17/22 02/17/22 release 24 hr tiotropium bromide 2.5 1 puff inhalation 02/17/22 02/17/22 mcg/actuation mist for inhalation (Spiriva Respimat) Results & Data (ED) Vital Signs Vital Signs - 24 hr 02/17/22 15:04 02/17/22 15:04 02/17/22 16:22 Temperature 36.6 C Temperature Source Oral Pulse Rate 97 H Pulse Rate [Apical] 97 H 87 Respiratory Rate 18 18 20 Respiratory Effort / Characteristics Non-Labored Non-Labored Respiratory Depth Normal Normal Respiratory Pattern Regular Blood Pressure 172/91 H Blood Pressure [Right Arm] 172/91 H 149/90 H Blood Pressure Mean 118 Blood Pressure Mean [Right Arm] 118 109 Pulse Oximetry 95 95 97 Oxygen Delivery Method Room Air Room Air Room Air Sepsis Recent Fever Within 48 Hours No Sepsis New/Unexplained Change in Mental Status N/A Sepsis Action Taken by Nursing No Action Required 02/17/22 16:26 02/17/22 17:00 02/17/22 17:00 Temperature Temperature Source Pulse Rate 78 Pulse Rate [Apical] Respiratory Rate 20 Respiratory Effort / Characteristics Respiratory Depth Respiratory Pattern Blood Pressure 147/70 H Blood Pressure [Right Arm] Blood Pressure Mean 95 Blood Pressure Mean [Right Arm] Pulse Oximetry 95 97 Oxygen Delivery Method Room Air Sepsis Recent Fever Within 48 Hours Sepsis New/Unexplained Change in Mental Status Sepsis Action Taken by Nursing Laboratory Data Attestation: I reviewed the patient's lab results. Result diagrams: 02/17/22 15:18 02/17/22 15:18 Lab Results 02/17/22 02/17/22 02/17/22 Range/Units 15:16 15:18 15:18 WBC 7.42 (4.8-10.8) K/ul RBC 2.93 L (3.93-5.22) M/uL Hgb 7.0 L (12.0-16.0) g/dl Hct 24.0 L (34.1-44.9) % MCV 81.9 (80.0-100.0) fL MCH 23.9 L (25.0-34.0) pg MCHC 29.2 L (32.0-36.0) g/dL RDW Std Deviation 51.7 H (36.4-46.3) fL RDW Coeff of Lor 17.4 H (11.5-14.5) % Plt Count 233 (130-400) K/uL MPV 11.0 (9.4-12.3) fL Immature Gran % (Auto) 0.3 % Neut % (Auto) 74.3 % Lymph % (Auto) 13.6 % [place] % (Auto) 10.2 % Eos % (Auto) 0.5 % Baso % (Auto) 1.1 % Reticulocyte % (Auto) 2.8 H (0.5-2.0) % Neut # (Auto) 5.51 (1.4-6.5) K/uL Lymph # (Auto) 1.01 L (1.2-3.4) K/uL [place] # (Auto) 0.76 (0.24-0.82) K/uL Eos # (Auto) 0.04 (0-0.50) K/uL Baso # (Auto) 0.08 (0-0.2) K/uL Reticulocyte # 0.08 (0.02-0.10) 10^6/uL Immature Gran # (Auto) 0.02 (0.00-0.02) K/uL Polychromasia 1+ Anisocytosis Present Tear Drop Cells 1+ Stomatocytes 1+ PT 11.4 (9.0-12.0) Seconds INR 1.1 (0.9-1.1) APTT 27.0 (21.0-31.0) Seconds PTT Ratio 1.0 Sodium (136-145) mmol/L Potassium (3.5-5.1) mmol/L Chloride (98-107) mmol/L Carbon Dioxide (21-32) mmol/L Anion Gap (3-11) BUN (6-23) mg/dl Creatinine (0.6-1.2) mg/dl Est Cr Clr Drug Dosing ml/min Est GFR ( Amer) ml/min Est GFR (Non-Af Amer) ml/min BUN/Creatinine Ratio (10-20) Glucose (70-99(Fasting)) mg/dl Calcium (8.5-10.1) mg/dl Phosphorus (2.5-4.9) mg/dl Magnesium (1.7-2.4) mg/dl Iron (35-150) mcg/dl Transferrin (200-360) mg/dl Ferritin (8-388) ng/ml Total Bilirubin (0.2-1.0) mg/dl AST (13-39) U/L ALT (7-52) U/L Alkaline Phosphatase (34-104) U/L Total Protein (6.0-8.3) gm/dl Albumin (3.4-5.0) gm/dl Globulin (2.5-4.0) gm/dl Albumin/Globulin Ratio (0.9-2) Vitamin B12 (180-914) pg/ml Folate (>5.38) ng/ml Urine Color Urine Appearance (Clear) Urine pH (4.5-7.5) Ur Specific Lucas (1.000-1.030) Urine Protein (Negative) Urine Glucose (UA) (Negative) Urine Ketones (Negative) Urine Blood (Negative) Urine Nitrite (Negative) Urine Bilirubin (Negative) Urine Urobilinogen (Negative) Ur Leukocyte Esterase (Negative) SARS-CoV-2, RNA, NAAT (NEGATIVE) Blood Type B Positive Antibody Screen NEGATIVE Crossmatch See Detail 02/17/22 02/17/22 02/17/22 Range/Units 15:18 15:18 16:15 WBC (4.8-10.8) K/ul RBC (3.93-5.22) M/uL Hgb (12.0-16.0) g/dl Hct (34.1-44.9) % MCV (80.0-100.0) fL MCH (25.0-34.0) pg MCHC (32.0-36.0) g/dL RDW Std Deviation (36.4-46.3) fL RDW Coeff of Lor (11.5-14.5) % Plt Count (130-400) K/uL MPV (9.4-12.3) fL Immature Gran % (Auto) % Neut % (Auto) % Lymph % (Auto) % [place] % (Auto) % Eos % (Auto) % Baso % (Auto) % Reticulocyte % (Auto) (0.5-2.0) % Neut # (Auto) (1.4-6.5) K/uL Lymph # (Auto) (1.2-3.4) K/uL [place] # (Auto) (0.24-0.82) K/uL Eos # (Auto) (0-0.50) K/uL Baso # (Auto) (0-0.2) K/uL Reticulocyte # (0.02-0.10) 10^6/uL Immature Gran # (Auto) (0.00-0.02) K/uL Polychromasia Anisocytosis Tear Drop Cells Stomatocytes PT (9.0-12.0) Seconds INR (0.9-1.1) APTT (21.0-31.0) Seconds PTT Ratio Sodium 137 (136-145) mmol/L Potassium 3.8 (3.5-5.1) mmol/L Chloride 96 L (98-107) mmol/L Carbon Dioxide 32 (21-32) mmol/L Anion Gap 9 (3-11) BUN 16 (6-23) mg/dl Creatinine 0.84 (0.6-1.2) mg/dl Est Cr Clr Drug Dosing 113.2 ml/min Est GFR ( Amer) 88.8 ml/min Est GFR (Non-Af Amer) 76.6 ml/min BUN/Creatinine Ratio 19.0 (10-20) Glucose 137 H (70-99(Fasting)) mg/dl Calcium 9.2 (8.5-10.1) mg/dl Phosphorus 3.7 (2.5-4.9) mg/dl Magnesium 1.9 (1.7-2.4) mg/dl Iron 21 L (35-150) mcg/dl Transferrin 332 (200-360) mg/dl Ferritin 7.4 L (8-388) ng/ml Total Bilirubin 0.3 (0.2-1.0) mg/dl AST 13 (13-39) U/L ALT 11 (7-52) U/L Alkaline Phosphatase 89 (34-104) U/L Total Protein 7.3 (6.0-8.3) gm/dl Albumin 3.8 (3.4-5.0) gm/dl Globulin 3.5 (2.5-4.0) gm/dl Albumin/Globulin Ratio 1.1 (0.9-2) Vitamin B12 (180-914) pg/ml Folate (>5.38) ng/ml Urine Color Urine Appearance (Clear) Urine pH (4.5-7.5) Ur Specific Lucas (1.000-1.030) Urine Protein (Negative) Urine Glucose (UA) (Negative) Urine Ketones (Negative) Urine Blood (Negative) Urine Nitrite (Negative) Urine Bilirubin (Negative) Urine Urobilinogen (Negative) Ur Leukocyte Esterase (Negative) SARS-CoV-2, RNA, NAAT NEGATIVE (NEGATIVE) Blood Type Antibody Screen Crossmatch 02/17/22 02/17/22 02/17/22 Range/Units 16:20 16:20 16:20 WBC (4.8-10.8) K/ul RBC (3.93-5.22) M/uL Hgb (12.0-16.0) g/dl Hct (34.1-44.9) % MCV (80.0-100.0) fL MCH (25.0-34.0) pg MCHC (32.0-36.0) g/dL RDW Std Deviation (36.4-46.3) fL RDW Coeff of Lor (11.5-14.5) % Plt Count (130-400) K/uL MPV (9.4-12.3) fL Immature Gran % (Auto) % Neut % (Auto) % Lymph % (Auto) % [place] % (Auto) % Eos % (Auto) % Baso % (Auto) % Reticulocyte % (Auto) (0.5-2.0) % Neut # (Auto) (1.4-6.5) K/uL Lymph # (Auto) (1.2-3.4) K/uL [place] # (Auto) (0.24-0.82) K/uL Eos # (Auto) (0-0.50) K/uL Baso # (Auto) (0-0.2) K/uL Reticulocyte # (0.02-0.10) 10^6/uL Immature Gran # (Auto) (0.00-0.02) K/uL Polychromasia Anisocytosis Tear Drop Cells Stomatocytes PT (9.0-12.0) Seconds INR (0.9-1.1) APTT (21.0-31.0) Seconds PTT Ratio Sodium (136-145) mmol/L Potassium (3.5-5.1) mmol/L Chloride (98-107) mmol/L Carbon Dioxide (21-32) mmol/L Anion Gap (3-11) BUN (6-23) mg/dl Creatinine (0.6-1.2) mg/dl Est Cr Clr Drug Dosing ml/min Est GFR ( Amer) ml/min Est GFR (Non-Af Amer) ml/min BUN/Creatinine Ratio (10-20) Glucose (70-99(Fasting)) mg/dl Calcium (8.5-10.1) mg/dl Phosphorus (2.5-4.9) mg/dl Magnesium (1.7-2.4) mg/dl Iron (35-150) mcg/dl Transferrin (200-360) mg/dl Ferritin (8-388) ng/ml Total Bilirubin (0.2-1.0) mg/dl AST (13-39) U/L ALT (7-52) U/L Alkaline Phosphatase (34-104) U/L Total Protein (6.0-8.3) gm/dl Albumin (3.4-5.0) gm/dl Globulin (2.5-4.0) gm/dl Albumin/Globulin Ratio (0.9-2) Vitamin B12 434 Cancelled (180-914) pg/ml Folate 15.98 (>5.38) ng/ml Urine Color Yellow Urine Appearance Clear (Clear) Urine pH 7.0 (4.5-7.5) Ur Specific Lucas 1.011 (1.000-1.030) Urine Protein Negative (Negative) Urine Glucose (UA) Negative (Negative) Urine Ketones Negative (Negative) Urine Blood Negative (Negative) Urine Nitrite Negative (Negative) Urine Bilirubin Negative (Negative) Urine Urobilinogen Negative (Negative) Ur Leukocyte Esterase Negative (Negative) SARS-CoV-2, RNA, NAAT (NEGATIVE) Blood Type Antibody Screen Crossmatch Administered Medications Apixaban (Apixaban 5 Mg Tablet) [address] [facility] Stop: 03/19/22 20:59 Last Admin: 02/17/22 20:59 Dose: 5 mg Documented By: CLC Buspirone HCl (Buspirone 15 Mg Tab) 15 mg PO TID [facility] Stop: 03/19/22 20:59 Last Admin: 02/17/22 20:58 Dose: 15 mg Documented By: CLC Furosemide (Furosemide 40 Mg Tab) 40 mg PO BID17 [facility] Stop: 03/19/22 20:59 Last Admin: 02/17/22 20:58 Dose: 40 mg Documented By: CLC Gabapentin (Gabapentin 300 Mg Cap) 300 mg PO [facility] Stop: 03/19/22 20:59 Last Admin: 02/17/22 20:58 Dose: 300 mg Documented By: CLC Hydralazine HCl (Hydralazine Tab 50 Mg Tab) 50 mg PO TID [facility] Stop: 03/19/22 20:59 Last Admin: 02/17/22 20:57 Dose: 50 mg Documented By: CLC Hydroxychloroquine Sulfate (Hydroxychloroquine Sulfate 200 Mg Tab) 400 mg PO [facility] Stop: 03/19/22 20:59 Last Admin: 02/17/22 20:57 Dose: 400 mg Documented By: CLC Lamotrigine (Lamotrigine 100 Mg Tab) [address] [facility] Stop: 03/19/22 20:59 Last Admin: 02/17/22 20:57 Dose: 200 mg Documented By: CLC Mirtazapine (Mirtazapine Tab 15 Mg Tab) 30 mg PO [facility] Stop: 03/19/22 20:59 Last Admin: 02/17/22 20:57 Dose: 30 mg Documented By: CLC Montelukast Sodium (Montelukast Sodium 10 Mg Tablet) 10 mg PO [facility] Stop: 03/19/22 20:59 Last Admin: 02/17/22 20:57 Dose: 10 mg Documented By: CLC Paliperidone (Paliperidone 3 Mg Tabcr) 9 mg PO [facility] Stop: 02/17/22 23:59 Last Admin: 02/17/22 20:56 Dose: 9 mg Documented By: CLC Paliperidone (Paliperidone 3 Mg Tabcr) 3 mg PO HS [facility] Stop: 02/17/22 23:59 Last Admin: 02/17/22 20:57 Dose: 3 mg Documented By: CLC Ropinirole HCl (Ropinirole Hcl 1 Mg Tablet) 1 mg PO BID [facility] Stop: 02/18/22 22:00 Last Admin: 02/17/22 21:00 Dose: 1 mg Documented By: CLC Rosuvastatin Calcium (Rosuvastatin Calcium 5 Mg Tab) 5 mg PO HS [facility] Stop: 03/19/22 20:59 Last Admin: 02/17/22 20:56 Dose: 5 mg Documented By: CLC Sotalol HCl (Sotalol Hcl 80 Mg Tab) 40 mg PO [facility] Stop: 03/19/22 20:59 Last Admin: 02/17/22 20:55 Dose: 40 mg Documented By: CLC Umeclidinium [place] (Umeclidinium [place] 62.5mcg/Blister 7 Puffs/Inhaler) 1 puffs INH [facility]; Protocol Stop: 03/19/22 20:59 Last Admin: 02/17/22 21:00 Dose: 1 puffs Documented By: CLC Imaging Data Radiologist's Impression: SINGLE VIEW CHEST CLINICAL HISTORY: Dyspnea. FINDINGS: An AP, portable, upright chest radiograph is compared to study dated 12/16/2020. Correlation is made with chest CT dated 09/10/2015. The examination is degraded by large body habitus, portable technique, and apical lordotic positioning. The cardiomediastinal silhouette is normal for projection. There is mild bibasilar atelectasis. The lungs and pleural spaces are otherwise clear. There is no pneumothorax. The bony thorax is grossly intact. IMPRESSION: No active disease in the chest. ACT 112: Negative or not required by law. Electronically signed by: Gurinder Staley M.D. 02/17/2022 7:39 PM Discharge Plan Visit Data Chief Complaint: Abnormal Labs/Diagnostic Testing Stated Complaint: abnormal labs ED Provider: Tony Izquierdo Discharge Problem: Symptomatic anemia, History of iron deficiency anemia, Dyspnea Patient Disposition: Admitted As Inpatient Discharge Instructions Interventions: ED Discharge Assessment Last Done: 02/17/22 18:37
[2022-02-17 22:58] LABS: Hematocrit (blood only) 25.1 % (34.1-44.9); Hemoglobin 7.4 g/dl (12.0-16.0)
[2022-02-18 06:17] LABS: Hematocrit (blood only) 27.3 % (34.1-44.9); Mean Corpuscular Hgb Conc 29.3 g/dL (32.0-36.0); Mean Platelet Volume 10.3 fL (9.4-12.3); Platelet Count 212 K/uL (130-400); RDW Coefficient of Variation 16.9 % (11.5-14.5); RDW Standard Deviation 50.8 fL (36.4-46.3); Red Blood Count 3.33 M/uL (3.93-5.22); White Blood Count 6.97 K/ul (4.8-10.8)
[2022-02-18] MEDS ORDERED: LEVOTHYROXINE SODIUM 200 MCG TABLET PO SCH (06:30)
[2022-02-18] MEDS ORDERED: LEVOTHYROXINE SODIUM 75 MCG TABLET PO SCH (06:30)
[2022-02-18 06:48] LABS: BUN Creatinine Ratio 19.4 (10-20); Calcium 9.3 mg/dl (8.5-10.1); Creatinine Clr Calc Pharmacy 133.6 ml/min; Est GFR (Non-African American) 92.3 ml/min; Potassium 3.5 mmol/L (3.5-5.1)
[2022-02-18] MEDS ORDERED: carvediloL 25 MG TAB PO SCH (08:00)
[2022-02-18] MEDS: rOPINIRole HCL 1 MG TABLET PO SCH (08:25)
[2022-02-18] MEDS: busPIRone 15 MG TAB PO SCH (08:26)
[2022-02-18] MEDS: FUROSEMIDE 40 MG TAB PO SCH (08:26)
[2022-02-18] MEDS: APIXABAN 5 MG TABLET PO SCH (08:26)
[2022-02-18] MEDS: SOTALOL HCL 80 MG TAB PO SCH (08:27)
[2022-02-18] MEDS: lamoTRIgine 100 MG TAB PO SCH (08:27)
[2022-02-18] MEDS: hydrALAZINE TAB 50 MG TAB PO SCH (08:27)
[2022-02-18] MEDS ORDERED: SERTRALINE HCL 100 MG TABLET PO SCH (09:00)
[2022-02-18] MEDS ORDERED: PANTOprazole 40 MG TAB PO SCH (09:00)
[2022-02-18] MEDS ORDERED: LOSARTAN POTASSIUM 50 MG TAB PO SCH (09:00)
[2022-02-18] MEDS ORDERED: hydroCHLOROthiazide 25 MG TAB PO SCH (09:00)
[2022-02-18] MEDS ORDERED: DULoxetine HCL 30 MG CAP PO SCH (09:00)
[2022-02-18] MEDS ORDERED: FLUTICASONE/VILANTEROL 100/25MCG 14 PUFFS/INHALER INH SCH (09:00)
--- NOTE | 2022-02-18 11:24 | Hospitalist Progress Note ---
Date of Service February 18, 2022 Assessment & Plan (1) Symptomatic anemia: Plan: - s/p 1 unit PRBC with improvement 7-->8 hgb - symptoms improved - no signs of bleeding or evidence of bleeding (2) History of iron deficiency anemia: Plan: Patient is 56 y/o F with PMH paroxysmal atrial flutter on chronic Eliquis, HTN, dyslipidemia, asthma, chronic diastolic heart failure, MAURO, positive SOFIA, RLS, hypothyroidism, GERD, IBS, bipolar disorder presented to ER for abnormal labs- low hemoglobin. Reported increased exertional SOB, dizziness with standing the past month. Outpatient labs drawn today, hemoglobin 6.6. Denies melena, hematochezia, vaginal bleeding History of iron deficiency anemia not responding to oral iron supplement and has been following with hematology. Had IV monofer for 07/20/2021 and 10/18/2021. History colonoscopy 12/03/21 with results of normal colon - s/p 1 unit prbc - hgb 7-->8 - Will need continued follow up with hematology and possible further IV iron - symptoms improved, ok for discharge today 02/18/2022 (3) Paroxysmal A-fib: Plan: History paroxysmal atrial flutter s/p cardioversion 2017, 2019, s/p ablation 2019 On chronic Eliquis Continue sotalol, Eliquis (4) Asthma: Plan: No acute exacerbation Continue home inhalers (5) Bipolar I disorder: Plan: Continue home meds (6) Positive SOFIA (antinuclear antibody): Plan: Follows with rheumatology-Dr. Wu Continue Plaquenil (7) Chronic diastolic (congestive) heart failure: Plan: History echo 02/03/2022: EF: 63%, grade 2 diastolic dysfunction Appears euvolemic Continue Lasix (8) MAURO (obstructive sleep apnea): Plan: BiPAP at bedtime (9) RLS (restless legs syndrome): Plan: Continue gabapentin, ropinirole DVT Prophylaxis On Eliquis DNR/DNI Will Wang MD [facility] Medicine Admission and Anticipated Discharge Date Admission Date: February 17, 2022 Subjective Patient admitted for symptomatic anemia. Sent from outpaient clinic for hgb 6.6 --> ED was 7.4. She received 1 unit PRBC and admitted. Hgb increased to 8.0 with improvement of symptoms. She feels better today. Denies shortness of breath, chest pain, light headedness, n/v/d, melena, hematochezia or hematemesis. Review of Systems Review of Systems: All systems reviewed & are unremarkable except as noted in Subjective Physical Exam Physical Exam: General: no distress, obese Head: normocephalic, atraumatic Eyes: conjunctiva non-injected, anicteric, pale conjunctiva ENT: normal inspection external ears, nose, mucous membranes moist Neck: supple, trachea midline Lungs: clear, no respiratory distress, no wheezing/rhonchi/rales CV: RRR, no murmur, no pretibial edema Abd: protuberant, normal BS, soft, non-tender Ext: no cyanosis, no calf tenderness Neuro: A&O x 3, no focal deficits noted, normal affect Skin: warm, dry Results & Data Results & Data ([facility]) Vital Signs (Past 12 Hours) Vital Signs Temp Pulse Pulse Resp BP Pulse Ox O2 Del Method 02/18/22 08:20 Room Air 02/18/22 06:17 67 02/18/22 07:12 36.9 C 63 18 161/81 H 95 Room Air 02/18/22 04:10 36.8 C 79 20 174/72 H 94 BiPAP 02/18/22 02:50 75 23 97 02/17/22 23:51 36.6 C 66 20 168/93 H 96 BiPAP 02/17/22 23:28 69 FiO2 02/18/22 08:20 02/18/22 06:17 02/18/22 07:12 02/18/22 04:10 02/18/22 02:50 21 02/17/22 23:51 02/17/22 23:28 Laboratory Results Short CBC 02/17/22 02/17/22 02/18/22 Range/Units 15:18 22:46 05:21 WBC 7.42 6.97 (4.8-10.8) K/ul Hgb 7.0 L 7.4 L 8.0 L (12.0-16.0) g/dl Hct 24.0 L 25.1 L 27.3 L (34.1-44.9) % Plt Count 233 212 (130-400) K/uL BMP 02/17/22 02/18/22 15:18 05:21 Sodium 137 137 Potassium 3.8 3.5 Chloride 96 L 97 L Carbon Dioxide 32 33 H BUN 16 14 Creatinine 0.84 0.72 Glucose 137 H 184 H Calcium 9.2 9.3 Liver Function 02/17/22 Range/Units 15:18 Total Bilirubin 0.3 (0.2-1.0) mg/dl AST 13 (13-39) U/L ALT 11 (7-52) U/L Alkaline Phosphatase 89 (34-104) U/L Albumin 3.8 (3.4-5.0) gm/dl Urine 02/17/22 Range/Units 16:20 Urine Color Yellow Urine Appearance Clear (Clear) Urine pH 7.0 (4.5-7.5) Ur Specific [place] 1.011 (1.000-1.030) Urine Protein Negative (Negative) Urine Glucose (UA) Negative (Negative) Medications Administered Current Inpatient Medications Acetaminophen (Acetaminophen 325 Mg Tab) 650 mg PO Q4H PRN PRN Reason: Pain or Fever Stop: 03/19/22 19:19 Last Admin: 02/18/22 02:27 Dose: 650 mg Albuterol (Albuterol Hfa 8 Gm Inhaler) 2 puffs INH Q4 PRN PRN Reason: Wheezing Stop: 03/19/22 19:19 Apixaban (Apixaban 5 Mg Tablet) 5 mg PO AMHS [facility] Stop: 03/19/22 20:59 Last Admin: 02/18/22 08:26 Dose: 5 mg Buspirone HCl (Buspirone 15 Mg Tab) 15 mg PO TID [facility] Stop: 03/19/22 20:59 Last Admin: 02/18/22 08:26 Dose: 15 mg Carvedilol (Carvedilol 25 Mg Tab) 25 mg PO BIDM [facility] Stop: 03/20/22 07:59 Last Admin: 02/18/22 08:26 Dose: 25 mg Duloxetine HCl (Duloxetine Hcl 30 Mg Cap) 30 mg PO QAM [facility] Stop: 03/20/22 08:59 Last Admin: 02/18/22 08:26 Dose: 30 mg Fluticasone/Vilanterol (Fluticasone/Vilanterol 100/25mcg 14 Puffs/Inhaler) 1 puffs INH QAM [facility] Stop: 03/20/22 08:59 Last Admin: 02/18/22 08:28 Dose: 1 puffs Furosemide (Furosemide 40 Mg Tab) 40 mg PO BID17 [facility]AVI Stop: 03/19/22 20:59 Last Admin: 02/18/22 08:26 Dose: 40 mg Gabapentin (Gabapentin 300 Mg Cap) 300 mg PO HS RAVI Stop: 03/19/22 20:59 Last Admin: 02/17/22 20:58 Dose: 300 mg Hydralazine HCl (Hydralazine Tab 50 Mg Tab) 50 mg PO TID [facility]I Stop: 03/19/22 20:59 Last Admin: 02/18/22 08:27 Dose: 50 mg Hydrochlorothiazide (Hydrochlorothiazide 25 Mg Tab) 12.5 mg PO QAM [facility]I Stop: 03/20/22 08:59 Last Admin: 02/18/22 08:25 Dose: 12.5 mg Hydroxychloroquine Sulfate (Hydroxychloroquine Sulfate 200 Mg Tab) 400 mg PO HS RAVI Stop: 03/19/22 20:59 Last Admin: 02/17/22 20:57 Dose: 400 mg Lamotrigine (Lamotrigine 100 Mg Tab) 200 mg PO AMHS [facility] Stop: 03/19/22 20:59 Last Admin: 02/18/22 08:27 Dose: 200 mg Levothyroxine Sodium (Levothyroxine Sodium 200 Mcg Tablet) 200 mcg PO DAILYBB RAVI Stop: 03/20/22 06:29 Last Admin: 02/18/22 05:36 Dose: 200 mcg Levothyroxine Sodium (Levothyroxine Sodium 75 Mcg Tablet) 75 mcg PO DAILYBB RAVI Stop: 03/20/22 06:29 Last Admin: 02/18/22 05:36 Dose: 75 mcg Losartan Potassium (Losartan Potassium 50 Mg Tab) 100 mg PO QAM [facility] Stop: 03/20/22 08:59 Last Admin: 02/18/22 08:25 Dose: 100 mg Mirtazapine (Mirtazapine Tab 15 Mg Tab) 30 mg PO HS RAVI Stop: 03/19/22 20:59 Last Admin: 02/17/22 20:57 Dose: 30 mg Montelukast Sodium (Montelukast Sodium 10 Mg Tablet) 10 mg PO HS RAVI Stop: 03/19/22 20:59 Last Admin: 02/17/22 20:57 Dose: 10 mg Ondansetron HCl (Ondansetron Inj 2 Mg/Ml 2 Ml Vial) 4 mg IV Q6H PRN PRN Reason: Nausea Stop: 03/19/22 19:19 Paliperidone (Paliperidone 3 Mg Tabcr) 12 mg PO HS RAVI Stop: 03/20/22 20:59 Pantoprazole Sodium (Pantoprazole 40 Mg Tab) 40 mg PO QAM [facility] Stop: 03/20/22 08:59 Last Admin: 02/18/22 08:25 Dose: 40 mg Polyethylene Glycol (Polyethylene (Miralax) 17 Gm Pack) 17 gm PO DAILY PRN PRN Reason: Constipation Stop: 03/19/22 19:19 Potassium Citrate (Potassium Citrate 10 Meq Tab) 10 meq PO QDL [facility]I Stop: 03/20/22 11:29 Ropinirole HCl (Ropinirole Hcl 1 Mg Tablet) 1 mg PO BID [facility]I Stop: 02/18/22 22:00 Last Admin: 02/18/22 08:25 Dose: 1 mg Ropinirole HCl (Ropinirole Hcl 1 Mg Tablet) 1 mg PO HS RAVI Stop: 02/25/22 20:59 Rosuvastatin Calcium (Rosuvastatin Calcium 5 Mg Tab) 5 mg PO HS RAVI Stop: 03/19/22 20:59 Last Admin: 02/17/22 20:56 Dose: 5 mg Sertraline HCl (Sertraline Hcl 100 Mg Tablet) 100 mg PO QAM [facility] Stop: 03/20/22 08:59 Last Admin: 02/18/22 08:26 Dose: 100 mg Sotalol HCl (Sotalol Hcl 80 Mg Tab) 40 mg PO AMHS [facility] Stop: 03/19/22 20:59 Last Admin: 02/18/22 08:27 Dose: 40 mg Umeclidinium Hooppole (Umeclidinium Hooppole 62.5mcg/Blister 7 Puffs/Inhaler) 1 puffs INH HS RAVI; Protocol Stop: 03/19/22 20:59 Last Admin: 02/17/22 21:00 Dose: 1 puffs
[2022-02-18] MEDS ORDERED: POTASSIUM CITRATE 10 MEQ TAB PO SCH (11:30)
[2022-02-18] MEDS ORDERED: hydrOXYzine HCl 25 MG TAB PO STA (11:43)
--- NOTE | 2022-02-18 17:28 | Discharge Summary ---
Date of Service February 18, 2022 Admission HPI Per Admitting Provider Patient is 56 y/o F with PMH paroxysmal atrial flutter on chronic Eliquis, HTN, dyslipidemia, asthma, chronic diastolic heart failure, MAURO, positive SOFIA, RLS, hypothyroidism, GERD, IBS, bipolar disorder presented to ER for abnormal labs- low hemoglobin. Patient reports had routine outpatient labs drawn today, hemoglobin 6.6. Patient with history of iron deficiency anemia not responding to oral iron supplement and has been following with hematology. Had IV monofer for 07/20/2021 and 10/18/2021. Patient reports she was to have additional IV iron however she did not follow-up. History colonoscopy 12/03/21 with results of normal colon. Patient reports past month has had increased shortness of breath with exertion, generalized fatigue, intermittent dizziness with standing. Denies chest pain, syncope. Reports chronic BLE edema, improved on Lasix and with elevation of lower extremities. Denies fever/chills, diaphoresis, N/V/D/C, melena, hematochezia, CARRILLO, vision changes, neck pain, CP, palpitations, cough, sore throat, choking, otalgia, rhinorrhea, abdominal pain, paresthesias, extremity weakness, rashes, urinary symptoms. Admission Exam Per Admitting Provider General: no distress, obese Head: normocephalic, atraumatic Eyes: conjunctiva non-injected, anicteric, pale conjunctiva ENT: normal inspection external ears, nose, mucous membranes moist Neck: supple, trachea midline Lungs: clear, no respiratory distress, no wheezing/rhonchi/rales CV: RRR, no murmur, no pretibial edema Abd: protuberant, normal BS, soft, non-tender Ext: no cyanosis, no calf tenderness Neuro: A&O x 3, no focal deficits noted, normal affect Skin: warm, dry Principal Diagnosis symptomatic anemia Discharge Exam General: no distress, obese Head: normocephalic, atraumatic Eyes: conjunctiva non-injected, anicteric, pale conjunctiva ENT: normal inspection external ears, nose, mucous membranes moist Neck: supple, trachea midline Lungs: clear, no respiratory distress, no wheezing/rhonchi/rales CV: RRR, no murmur, no pretibial edema Abd: protuberant, normal BS, soft, non-tender Ext: no cyanosis, no calf tenderness Neuro: A&O x 3, no focal deficits noted, normal affect Skin: warm, dry Discharge Data Allergies Allergy/AdvReac Type Severity Reaction Status Date / Time adhesive Allergy Intermediate RASH, ITCHY Verified 02/17/22 16:46 Hydantoins Allergy Intermediate Hives Verified 02/17/22 16:46 ethyl alcohol AdvReac Severe Seizure Verified 02/17/22 16:46 thioridazine AdvReac Severe SEIZURES Verified 02/17/22 16:46 phenytoin AdvReac Intermediate Nausea Verified 02/17/22 16:46 Consultations 02/17/22 16:19 ED Decision to Admit Stat Hospital Course (1) Symptomatic anemia: - s/p 1 unit PRBC with improvement 7-->8 hgb - symptoms improved - no signs of bleeding or evidence of bleeding (2) History of iron deficiency anemia: Patient is 56 y/o F with PMH paroxysmal atrial flutter on chronic Eliquis, HTN, dyslipidemia, asthma, chronic diastolic heart failure, MAURO, positive SOFIA, RLS, hypothyroidism, GERD, IBS, bipolar disorder presented to ER for abnormal labs- low hemoglobin. Reported increased exertional SOB, dizziness with standing the past month. Outpatient labs drawn today, hemoglobin 6.6. Denies melena, hematochezia, vaginal bleeding History of iron deficiency anemia not responding to oral iron supplement and has been following with hematology. Had IV monofer for 07/20/2021 and 10/18/2021. History colonoscopy 12/03/21 with results of normal colon - s/p 1 unit prbc - hgb 7-->8 - Will need continued follow up with hematology and possible further IV iron - symptoms improved, ok for discharge today 02/18/2022 (3) Paroxysmal A-fib: History paroxysmal atrial flutter s/p cardioversion 2017, 2019, s/p ablation 2019 On chronic Eliquis Continue sotalol, Eliquis (4) Asthma: No acute exacerbation Continue home inhalers (5) Bipolar I disorder: Continue home meds (6) Positive SOFIA (antinuclear antibody): Follows with rheumatology-Dr. Wu Continue Plaquenil (7) Chronic diastolic (congestive) heart failure: History echo 02/03/2022: EF: 63%, grade 2 diastolic dysfunction Appears euvolemic Continue Lasix (8) MAURO (obstructive sleep apnea): BiPAP at bedtime (9) RLS (restless legs syndrome): Continue gabapentin, ropinirole DVT Prophylaxis On Eliquis DNR/DNI Will Wang MD [facility] Medicine Total Time Total Time Spent Total Time Spent (In Minutes): 25 minutes Total Time Includes: Examination of the Patient, Discharge Planning and Medication Reconciliation Discharge Plan Discharge Items Patient Disposition: Home - Self-Care Reason For Visit: ANEMIA Discharge Diagnosis: symptomatic anemia Activity: Resume your previous activity Non-emergency contact: Primary Care Provider and Specialist Call non-emergency contact if: you have any medication questions and your symptoms worsen Follow-up/Referrals: Brian Salas, [Primary Care Provider] - Diet: Heart Healthy Addtl Attending Provider Instructions: You were admitted for low hemoglobin for your chronic anemia, typically managed by your crack off person with IV iron infusions. You received 1 unit of blood here with good response in your hemoglobin. You are stable for discharge and should follow up with your PCP and crack off person within one week of discharge. Pending Studies at Discharge: No Stand-Alone Forms: My [facility], Smoking Cessation Medications and DC Order Prescriptions: Continued montelukast [Singulair] 10 mg tablet 10 mg PO HS carvedilol 25 mg tablet 25 mg PO BIDM sotalol 80 mg Tablet 40 mg PO AMHS Rx Instructions: HOLD FOR HR <60 OR STP < 100, notify service if is held sertraline 100 mg Tablet 100 mg PO QAM omeprazole 40 mg Capsule,Delayed Release(Dr/Ec) 40 mg PO QAM levothyroxine 75 mcg Tablet 75 mcg PO QAM Rx Instructions: TOTAL DOSE 275 MCG--TAKES WITH 200 MCG TAB. potassium citrate 10 mEq (1,080 mg) Tablet Extended Release 10 meq PO QDL mirtazapine 30 mg Tablet 30 mg PO HS albuterol sulfate 90 mcg/actuation Hfa Aerosol Inhaler 2 puff INHALATION Q4 PRN (Reason: Wheezing) losartan 100 mg tablet 100 mg PO QAM Eliquis 5 mg Tablet 5 mg PO AMHS fluticasone furoate-vilanterol [Breo Ellipta] 100-25 mcg/dose Blister With Device 1 inh INHALATION QAM lamotrigine 200 mg Tablet 200 mg PO AMHS ropinirole 1 mg Tablet 1 mg PO UD Rx Instructions: Started 02/12/22, 1 tab BID x 7 days, then 1 tab HS x 7 days, then 0.5 tab HS x 8 days rosuvastatin 5 mg Tablet 5 mg PO HS duloxetine 30 mg Capsule,Delayed Release(Dr/Ec) 30 mg PO QAM tizanidine [Zanaflex] 4 mg Capsule 4 mg PO HS PRN (Reason: Pain) hydrochlorothiazide 12.5 mg Tablet 12.5 mg PO QAM furosemide [Lasix] 40 mg Tablet 40 mg PO AMHS gabapentin 300 mg Capsule 300 mg PO HS hydroxyzine HCl 25 mg Tablet 25 mg PO DAILY PRN (Reason: Anxiety) levothyroxine 200 mcg Tablet 200 mcg PO QAM Rx Instructions: TOTAL DOSE 275 MCG--TAKES WITH 75 MCG TAB. hydroxychloroquine 200 mg Tablet 400 mg PO HS buspirone 15 mg Tablet 15 mg PO TID paliperidone 3 mg Tablet Extended Release 24 Hr 3 mg PO HS Rx Instructions: TOTAL DOSE 12 MG--TAKES WITH 9 MG TAB. paliperidone 9 mg Tablet Extended Release 24 Hr 9 mg PO HS Rx Instructions: TOTAL DOSE 12 MG--TAKES WITH 3 MG TAB. Spiriva Respimat 2.5 mcg/actuation Mist 1 puff INHALATION HS hydralazine 50 mg Tablet 50 mg PO TID Discharge Orders: Discharge Order (Routine); Ordered 02/18/22 Ordered By: Will Wang Admission Data Admit Date/Time: 02/17/22 17:18 Attending Provider: Will Wang Admit Provider: Russ Wagner Primary Care Provider: Brian Salas Other Providers: Russ Wagner Other Interventions: Discharge Summary Assessment (RN) Last Done: 02/18/22 11:35
[2022-02-18] MEDS ORDERED: PALIPERIDONE 3 MG TABCR PO SCH (21:00)
[2022-02-19] MEDS ORDERED: rOPINIRole HCL 1 MG TABLET PO SCH (21:00)
== END 2022-02-18 14:48 | disposition home or self-care (01) | DRG 812 ==
LOC: ED 15:07 → 2E 17:18 → SUATTDRO 17:18 → 2E 18:37

== ENCOUNTER 2022-06-18 17:49 | Inpatient (IN) ==
[2022-06-18 19:18] LABS: Troponin I High Sensitivity 3.1 pg/ml (0-14)
[2022-06-18 19:25] LABS: Alanine Aminotransferase 10 U/L (7-52); Albumin Globulin Ratio 1.1 (0.9-2); Albumin Level 3.9 gm/dl (3.4-5.0); Alkaline Phosphatase 93 U/L (34-104); Anion Gap 7 (3-11); Aspartate Aminotransferase 13 U/L (13-39); BUN Creatinine Ratio 23.9 (10-20); Bilirubin,Total 0.4 mg/dl (0.2-1.0); Blood Urea Nitrogen 43 mg/dl (6-23); Carbon Dioxide 36 mmol/L (21-32); Chloride 84 mmol/L (98-107); Est GFR (African American) 35.1 ml/min; Est GFR (Non-African American) 30.3 ml/min; Globulin 3.4 gm/dl (2.5-4.0); Glucose 143 mg/dl (70-99(Fasting)); Potassium 3.3 mmol/L (3.5-5.1); Sodium 127 mmol/L (136-145); Total Protein 7.3 gm/dl (6.0-8.3)
--- NOTE | 2022-06-18 19:35 | Emergency Department Note ---
Impression & Plan Anemia ADMIT ED Provider Note HPI: The patient is a 57-year-old female with history of paroxysmal atrial 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, on Eliquis, schizoaffective disorder, bipolar disorder, hypertension, presents the emergency department today with 5 days of generalized weakness. Patient states that she feels very fatigued, states at times she feels as if she is going to pass out. Patient states she has had similar symptoms in the past that she states were associated with iron deficiency anemia. Patient states at times also when she is ambulating she is becoming more short of breath. On arrival here to the ED the patient is hemodynamically stable, she is saturating well on room air on my initial assessment and otherwise appears to be in no acute distress. ROS: -General: Generalized weakness -Neuro: Sensation of lightheadedness/presyncope -Pulmonary: Shortness of breath with exertion *10 point review systems was conducted and is otherwise negative unless stated above *Outpatient medications and allergy history reviewed PE: General: Alert obese, HEENT: Normocephalic, trachea midline Eyes: Extraocular eye movement is intact, no scleral erythema Pulmonary: Clear to auscultation bilaterally, no wheezing Cardio: Regular rate and irregular rhythm GI: Abdomen is soft, nontender : No suprapubic tenderness MSK: No evidence of trauma or malformation of the extremities, no edema Skin: No evidence of rash Neuro: Alert, no focal deficits Psychiatric: Cooperative night monitor: - An order was placed for continuous cardiac monitoring - Patient was noted to be in atrial 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 with a rate of 75 EKG: Rate: 67 Rhythm: 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 Intervals: Within normal limits ST changes: No ST elevation Time: 1819 Interventions provided in ED: -IV normal saline bolus, packed red blood cell transfusion Medical Decision Making: Patient presented to the emergency department with dizziness, lightheadedness, generalized weakness, states her symptoms have been worsening over the past 4 to 5 days. On arrival here to the ED the patient is hemodynamically stable, she is saturating well on room air. IV was established, lab work obtained, patient was placed on satellite project site monitor. Lab work shows evidence of significant anemia with a hemoglobin of 4.6, patient denies any recent bleeding, denies any dark stools, denies any hematemesis, denies any recent trauma, denies any focal complaints of pain. He does have a history of similar presentations requiring admission for transfusion, her anemia at that time was thought to be secondary to iron deficiency, she has had this worked up in the past including normal colonoscopy according to the patient. Lab work otherwise shows evidence of slight acute kidney injury with creatinine elevation of 1.80, slight uremia, hypokalemia at 127. Patient was given IV fluid bolus of normal saline prior to packed red blood cell transfusion. Lab work otherwise does show an elevation in creatinine to 1.8, troponin is negative, EKG does not show any ischemic changes. I do not see any evidence of any acute process on chest x-ray. Packed red blood cells were ordered for transfusion, patient was consented at the bedside by myself. Transfusion was initiated. I did discuss the case with the on-call hospitalist for [facility], Dr. Camp, and the patient was admitted in stable condition for further care. * CRITICAL CARE TIME: (45) minutes -- Time spent at the bedside (independent of any procedures) in management of a patient with complex medical issues including anemia with hemoglobin of 4.6 requiring packed red blood cell transfusion, time spent with interpretation of diagnostic studies, discussion with patient, discussion with other physicians and arrangement of admission Diagnosis: 1. Symptomatic anemia (Hb <7.0) requiring packed red blood cell transfusion 2. Acute kidney injury 3. Uremia, mild 4. Hyponatremia, mild Disposition: Admission Eduardo Cespedes DO Emergency Medicine Past Med/Surg History Medical History Anxiety and depression Asthma rare res inh use Bipolar 1 disorder Chronic back pain Degenerative disc disease Dyslipidemia Epilepsy hx of, last one in 1989' Fibromyalgia GERD (gastroesophageal reflux disease) Hypertension Hypothyroidism IBS (irritable bowel syndrome) Lumbar pain with radiation down both legs Lumbar post-laminectomy syndrome Migraine Morbid obesity Osteoarthritis Paroxysmal A-fib follows with Eduardo Gonsalez > Lucie RLS (restless legs syndrome) Sacroiliac joint pain Schizoaffective disorder Sleep apnea cpap Spinal stenosis Surgical History History of carpal tunnel release LEFT History of cataract surgery RT/LEFT History of cholecystectomy History of colonoscopy History of endoscopic sinus surgery History of tonsillectomy and adenoidectomy History of tooth extraction ALL UPPER TEETH EXTRACTIONS History of total abdominal hysterectomy and bilateral salpingo-oophorectomy Nausea and vomiting after administration of anesthetic agent S/P foot surgery, left X2 Status post lumbar spine surgery for decompression of spinal cord + RODS Family History Father Family history of diabetes mellitus Coronary heart disease Mother Lung cancer Sister Alive and well Brother Alive and well Other No family history of adverse response to anesthesia Social History Smoking Status: Never smoker Second Hand Exposure: Yes (IN THE PAST); Hx Alcohol Use: No Hx Substance Use: No Preferred Language: Lao Communication Ability: Effective Visual Impairment: No Limitations 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: Normal Soa Integration Developer Required: No Beliefs That Will Affect Care: None marital status: Current Living Situation: Alone current occupational status: disabled Feels Safe at Home: Yes Assistive Devices: Cane and Walker Allergies Allergies Allergy/AdvReac Type Severity Reaction Status Date / Time adhesive Allergy Intermediate RASH, ITCHY Verified 02/17/22 16:46 Hydantoins Allergy Intermediate Hives Verified 02/17/22 16:46 ethyl alcohol AdvReac Severe Seizure Verified 02/17/22 16:46 thioridazine AdvReac Severe SEIZURES Verified 02/17/22 16:46 phenytoin AdvReac Intermediate Nausea Verified 02/17/22 16:46 Home Meds Home Medications Medication Instructions Recorded Confirmed albuterol sulfate 90 mcg/actuation 2 puff inhalation Q4 PRN Wheezing 12/16/20 02/17/22 aerosol inhaler apixaban 5 mg tablet (Eliquis) 5 mg PO AMHS 12/16/20 02/17/22 carvedilol 25 mg tablet 25 mg PO BIDM 12/16/20 02/17/22 fluticasone furoate 100 1 inh inhalation QA 12/16/20 02/17/22 mcg-vilanterol 25 mcg/dose inhalation powder (Breo Ellipta) lamotrigine 200 mg tablet 200 mg PO AMHS 12/16/20 02/17/22 levothyroxine 75 mcg tablet 75 mcg PO QAM 12/16/20 02/17/22 losartan 100 mg tablet 100 mg PO QAM 12/16/20 02/17/22 mirtazapine 30 mg tablet 30 mg PO HS 12/16/20 02/17/22 omeprazole 40 mg capsule,delayed 40 mg PO QAM 12/16/20 02/17/22 release potassium citrate 10 mEq (1,080 10 meq PO QDL 12/16/20 02/17/22 mg) tablet,extended release sertraline 100 mg tablet 100 mg PO QAM 12/16/20 02/17/22 sotalol 80 mg tablet 40 mg PO AMHS 12/16/20 02/17/22 montelukast 10 mg tablet 10 mg PO HS 10/01/21 02/17/22 (Singulair) duloxetine 30 mg capsule,delayed 30 mg PO QAM 11/02/21 02/17/22 release hydrochlorothiazide 12.5 mg tablet 12.5 mg PO QAM 11/02/21 02/17/22 ropinirole 1 mg tablet 1 mg PO UD 11/02/21 02/17/22 rosuvastatin 5 mg tablet 5 mg PO HS 11/02/21 02/17/22 tizanidine 4 mg capsule (Zanaflex) 4 mg PO HS PRN Pain 11/02/21 02/17/22 buspirone 15 mg tablet 15 mg PO TID 02/17/22 02/17/22 furosemide 40 mg tablet (Lasix) 40 mg PO AMHS 02/17/22 02/17/22 gabapentin 300 mg capsule 300 mg PO HS 02/17/22 02/17/22 hydralazine 50 mg tablet 50 mg PO TID 02/17/22 02/17/22 hydroxychloroquine 200 mg tablet 400 mg PO HS 02/17/22 02/17/22 hydroxyzine HCl 25 mg tablet 25 mg PO DAILY PRN Anxiety 02/17/22 02/17/22 levothyroxine 200 mcg tablet 200 mcg PO QAM 02/17/22 02/17/22 paliperidone 3 mg tablet,extended 3 mg PO HS 02/17/22 02/17/22 release 24 hr paliperidone 9 mg tablet,extended 9 mg PO HS 02/17/22 02/17/22 release 24 hr tiotropium bromide 2.5 1 puff inhalation HS 02/17/22 02/17/22 mcg/actuation mist for inhalation (Spiriva Respimat) Results & Data (ED) Vital Signs Vital Signs - 24 hr 06/18/22 18:00 06/18/22 20:36 Temperature 36.6 C 36.6 C Temperature Source Oral Oral Pulse Rate 72 70 Respiratory Rate 18 19 Blood Pressure 125/62 146/82 H Blood Pressure Mean 83 103 Pulse Oximetry 99 99 Oxygen Delivery Method Room Air Sepsis Recent Fever Within 48 Hours No Sepsis New/Unexplained Change in Mental Status No Sepsis Action Taken by Nursing No Action Required Laboratory Data Result diagrams: 06/18/22 18:26 06/18/22 18:26 Lab Results 06/18/22 06/18/22 06/18/22 Range/Units 18:26 18: 18:26 WBC 9.22 (4.8-10.8) K/ul RBC 2.09 L (3.93-5.22) M/uL Hgb 4.6 L* (12.0-16.0) g/dl Hct 15.7 L* (34.1-44.9) % MCV 75.1 L (80.0-100.0) fL MCH 22.0 L (25.0-34.0) pg MCHC 29.3 L (32.0-36.0) g/dL RDW Std Deviation 52.6 H (36.4-46.3) fL RDW Coeff of Lor 19.3 H (11.5-14.5) % Plt Count 232 (130-400) K/uL MPV 10.6 (9.4-12.3) fL Immature Gran % (Auto) 0.7 % Neut % (Auto) 77.0 % Lymph % (Auto) 14.2 % Trigg % (Auto) 7.7 % Eos % (Auto) 0.0 % Baso % (Auto) 0.4 % Neut # (Auto) 7.10 H (1.4-6.5) K/uL Lymph # (Auto) 1.31 (1.2-3.4) K/uL Trigg # (Auto) 0.71 (0.24-0.82) K/uL Eos # (Auto) 0.00 (0-0.50) K/uL Baso # (Auto) 0.04 (0-0.2) K/uL Immature Gran # (Auto) 0.06 H (0.00-0.02) K/uL Absolute Nucleated RBC 0.03 H (0-0) K/uL Nucleated RBC % (auto) 0.3 % Polychromasia 1+ Hypochromasia Present Sodium 127 L (136-145) mmol/L Potassium 3.3 L (3.5-5.1) mmol/L Chloride 84 L (98-107) mmol/L Carbon Dioxide 36 H (21-32) mmol/L Anion Gap 7 (3-11) BUN 43 H (6-23) mg/dl Creatinine 1.80 H (0.6-1.2) mg/dl Est Cr Clr Drug Dosing Not Reportable Est GFR ( Amer) 35.1 ml/min Est GFR (Non-Af Amer) 30.3 ml/min BUN/Creatinine Ratio 23.9 H (10-20) Glucose 143 H (70-99(Fasting)) mg/dl Calcium 9.0 (8.5-10.1) mg/dl Total Bilirubin 0.4 (0.2-1.0) mg/dl AST 13 (13-39) U/L ALT 10 (7-52) U/L Alkaline Phosphatase 93 (34-104) U/L Troponin I High Sens 3.1 (0-14) pg/ml Total Protein 7.3 (6.0-8.3) gm/dl Albumin 3.9 (3.4-5.0) gm/dl Globulin 3.4 (2.5-4.0) gm/dl Albumin/Globulin Ratio 1.1 (0.9-2) Blood Type B Positive Antibody Screen NEGATIVE Crossmatch See Detail Administered Medications Discontinued Medications Sodium Chloride (Nss 1000ml) 500 mls @ 999 mls/hr IV .Q31M ONE Stop: 06/18/22 20:06 Last Admin: 06/18/22 19:41 Dose: 999 mls/hr Documented By: [facility] Discharge Plan Visit Data Chief Complaint: Weakness Stated Complaint: WEAKNESS, DIZZINESS ED Provider: Eduardo Cespedes Discharge Problem: Anemia Patient Disposition: Admitted As Inpatient Forms Stand Alone Forms: My [facility] Prescriptions Prescriptions: No Action montelukast [Singulair] 10 mg tablet 10 mg PO HS carvedilol 25 mg tablet 25 mg PO BIDM sotalol 80 mg Tablet 40 mg PO AMHS Rx Instructions: HOLD FOR HR <60 OR STP < 100, notify service if is held sertraline 100 mg Tablet 100 mg PO QAM omeprazole 40 mg Capsule,Delayed Release(Dr/Ec) 40 mg PO QAM levothyroxine 75 mcg Tablet 75 mcg PO QAM Rx Instructions: TOTAL DOSE 275 MCG--TAKES WITH 200 MCG TAB. potassium citrate 10 mEq (1,080 mg) Tablet Extended Release 10 meq PO QDL mirtazapine 30 mg Tablet 30 mg PO HS albuterol sulfate 90 mcg/actuation Hfa Aerosol Inhaler 2 puff INHALATION Q4 PRN (Reason: Wheezing) losartan 100 mg tablet 100 mg PO QAM Eliquis 5 mg Tablet 5 mg PO AMHS fluticasone furoate-vilanterol [Breo Ellipta] 100-25 mcg/dose Blister With Device 1 inh INHALATION QAM lamotrigine 200 mg Tablet 200 mg PO AMHS ropinirole 1 mg Tablet 1 mg PO UD Rx Instructions: Started 02/12/22, 1 tab BID x 7 days, then 1 tab HS x 7 days, then 0.5 tab HS x 8 days rosuvastatin 5 mg Tablet 5 mg PO HS duloxetine 30 mg Capsule,Delayed Release(Dr/Ec) 30 mg PO QAM tizanidine [Zanaflex] 4 mg Capsule 4 mg PO HS PRN (Reason: Pain) hydrochlorothiazide 12.5 mg Tablet 12.5 mg PO QAM furosemide [Lasix] 40 mg Tablet 40 mg PO AMHS gabapentin 300 mg Capsule 300 mg PO HS hydroxyzine HCl 25 mg Tablet 25 mg PO DAILY PRN (Reason: Anxiety) levothyroxine 200 mcg Tablet 200 mcg PO QAM Rx Instructions: TOTAL DOSE 275 MCG--TAKES WITH 75 MCG TAB. hydroxychloroquine 200 mg Tablet 400 mg PO HS buspirone 15 mg Tablet 15 mg PO TID paliperidone 3 mg Tablet Extended Release 24 Hr 3 mg PO HS Rx Instructions: TOTAL DOSE 12 MG--TAKES WITH 9 MG TAB. paliperidone 9 mg Tablet Extended Release 24 Hr 9 mg PO HS Rx Instructions: TOTAL DOSE 12 MG--TAKES WITH 3 MG TAB. Spiriva Respimat 2.5 mcg/actuation Mist 1 puff INHALATION HS hydralazine 50 mg Tablet 50 mg PO TID Referrals Referrals: Brian Salas, [Primary Care Provider] -
[2022-06-18] MEDS ORDERED: SODIUM CHLORIDE 0.9% 1000ML 500 ML IV ONE (19:36)
[2022-06-18 19:54] LABS: Basophils # (auto) 0.04 K/uL (0-0.2); Basophils % (auto) 0.4 %; Hematocrit (blood only) 15.7 % (34.1-44.9); Hemoglobin 4.6 g/dl (12.0-16.0); Hypochromasia Present; Immature Granulocytes # (auto) 0.06 K/uL (0.00-0.02); Immature Granulocytes % (auto) 0.7 %; Lymphocytes # (auto) 1.31 K/uL (1.2-3.4); Lymphocytes % (auto) 14.2 %; Mean Corpuscular Hgb Conc 29.3 g/dL (32.0-36.0); Mean Corpuscular Volume 75.1 fL (80.0-100.0); Mean Platelet Volume 10.6 fL (9.4-12.3); Monocytes # (auto) 0.71 K/uL (0.24-0.82); Monocytes % (auto) 7.7 %; Nucleated RBC # (auto) 0.03 K/uL (0-0); Nucleated RBC % (auto) 0.3 %; Platelet Count 232 K/uL (130-400); Polychromasia 1+; RDW Coefficient of Variation 19.3 % (11.5-14.5); RDW Standard Deviation 52.6 fL (36.4-46.3); Red Blood Count 2.09 M/uL (3.93-5.22); White Blood Count 9.22 K/ul (4.8-10.8)
[2022-06-18] MEDS ORDERED: SODIUM CHLORIDE 0.9% 250 ML IV PRN (19:57)
[2022-06-18] MEDS ORDERED: POTASSIUM CHLORIDE CRTAB 20 MEQ TABCR PO STA (20:46)
[2022-06-18 21:00] LABS: Influenza A virus by PCR Negative (Neg); Influenza B virus by PCR Negative (Neg); RSV by PCR Negative (Neg); SARS CoV2 RNA(COVID-19)Cepheid NEGATIVE (Negative)
--- NOTE | 2022-06-18 21:00 | XRay Report ---
SINGLE VIEW CHEST CLINICAL HISTORY: Generalized weakness. FINDINGS: An AP, portable, upright chest radiograph is compared to study dated 02/17/2022. The examina tion is degraded by portable technique, large body habitus, and patient rotation. The cardiomediasti nal silhouette is unremarkable. Bibasilar airspace opacities likely represent atelectasis. No large p leural effusion or no pneumothorax is seen. The bony thorax is grossly intact. IMPRESSION: Bibasilar opacities likely represent atelectasis. Clinical correlation will be required. ACT 112: Negative or not required by law. Electronically signed by: Gurinder Staley M.D. 06/18/2022 8:59 PM
--- NOTE | 2022-06-18 22:06 | History & Physical Report ---
Date of Service June 18, 2022 Assessment & Plan (1) Anemia: (2) SEEMA (iron deficiency anemia): (3) NATY (acute kidney injury): (4) Hyponatremia: (5) Chronic diastolic (congestive) heart failure: (6) Paroxysmal A-fib: (7) Positive SOFIA (antinuclear antibody): (8) MAURO (obstructive sleep apnea): (9) Hypertension: (10) Bipolar I disorder: Plan: Please refer to Dr. French's addendum for assessment and plan, (11) Schizoaffective disorder: (12) Asthma: History of Present Illness Chief Complaint: Shortness of breath, fatigue Primary Care Provider: Brian Salas DO 57-year-old female with PMH dyslipidemia, hypothyroidism, prediabetes, MAURO on BiPAP, asthma, paroxysmal atrial 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 and atrial flutter on Eliquis, pulmonary hypertension, chronic diastolic CHF, HTN, morbid obesity, GERD, positive SOFIA with suspected underlying autoimmune disorder on Plaquenil, iron deficiency anemia, bipolar disorder, schizoaffective disorder, and other problems listed below who presents to the ED for evaluation of shortness of breath and fatigue. Patient reports she has been having the symptoms for the pa st 2 weeks. Reports shortness of breath and fatigue has been progressively getting worse. She states that she feels short of breath and her legs feel very weak with minimal exertion. She has had associated lightheadedness however denies dizziness and syncopal event. No chest pain or palpitations. Denies abdominal pain, nausea, vomiting, diarrhea, bright red bleeding per rectum, dark tarry stools. No other recent illnesses, fevers, chills. Denies urinary symptoms. In the ED, labs show Hgb 4.6, Na+ 127, creatinine 1.8. Patient was typed and crossed for PRBC transfusion. Note history of iron deficiency anemia that did not respond to oral iron replacement therapy, has received iron infusions in the past, most recently being on 04/02/2022. Last colonoscopy 11/2021 negative. Allergies Allergy/AdvReac Type Severity Reaction Status Date / Time adhesive Allergy Intermediate RASH, ITCHY Verified 06/18/22 21:51 Hydantoins Allergy Intermediate Hives Verified 06/18/22 21:51 ethyl alcohol AdvReac Severe Seizure Verified 06/18/22 21:51 thioridazine AdvReac Severe SEIZURES Verified 06/18/22 21:51 phenytoin AdvReac Intermediate Nausea Verified 06/18/22 21:51 Home Medications Medication Instructions Recorded Confirmed Type apixaban 5 mg tablet (Eliquis) 5 mg PO BID 06/18/22 06/18/22 History buspirone 10 mg tablet 10 mg PO TID 06/18/22 06/18/22 History carvedilol 25 mg tablet 25 mg PO BID 06/18/22 06/18/22 History cholecalciferol (vitamin D3) 50 50 mcg PO DAILY 06/18/22 06/18/22 History mcg (2,000 unit) tablet (Vitamin D3) duloxetine 30 mg capsule,delayed 30 mg PO DAILY 06/18/22 06/18/22 History release fluticasone furoate 200 1 ea inhalation DAILY 06/18/22 06/18/22 History mcg-vilanterol 25 mcg/dose inhalation powder (Breo Ellipta) furosemide 40 mg tablet 40 mg PO BID 06/18/22 06/18/22 History gabapentin 300 mg capsule 300 mg PO HS 06/18/22 06/18/22 History hydralazine 50 mg tablet 50 mg PO TID 06/18/22 06/18/22 History hydrochlorothiazide 12.5 mg capsule 12.5 mg PO DAILY 06/18/22 06/18/22 History hydroxychloroquine 200 mg tablet 400 mg PO HS 06/18/22 06/18/22 History hydroxyzine HCl 25 mg tablet 25 mg PO DAILY PRN Anxiety 06/18/22 06/18/22 History iron,carbonyl 65 mg-vitamin C 125 1 tab PO BID 06/18/22 06/18/22 History mg tablet,delayed release (Vitron-C) lamotrigine 200 mg tablet 200 mg PO BID 06/18/22 06/18/22 History levocetirizine 5 mg tablet 2.5 mg PO PM 06/18/22 06/18/22 History levothyroxine 200 mcg tablet 200 mcg PO DAILY 06/18/22 06/18/22 History levothyroxine 75 mcg tablet 75 mcg PO DAILY 06/18/22 06/18/22 History losartan 100 mg tablet 100 mg PO DAILY 06/18/22 06/18/22 History melatonin 3 mg tablet 3 mg PO HS 06/18/22 06/18/22 History mirtazapine 30 mg tablet 30 mg PO HS 06/18/22 06/18/22 History montelukast 10 mg tablet 10 mg PO HS 06/18/22 06/18/22 History omeprazole 40 mg capsule,delayed 40 mg PO DAILY 06/18/22 06/18/22 History release paliperidone 9 mg tablet,extended 9 mg PO HS 06/18/22 06/18/22 History release 24 hr perphenazine 8 mg tablet 8 mg PO DAILY 06/18/22 06/18/22 History potassium chloride 10 mEq 10 meq PO DAILY 06/18/22 06/18/22 History tablet,extended release riboflavin (vitamin B2) 100 mg 400 mg PO DAILY 06/18/22 06/18/22 History tablet (Vitamin B-2) ropinirole 1 mg tablet 1 mg PO HS 06/18/22 06/18/22 History rosuvastatin 5 mg tablet 5 mg PO HS 06/18/22 06/18/22 History sertraline 100 mg tablet 100 mg PO DAILY 06/18/22 06/18/22 History sotalol 80 mg tablet 40 mg PO BID 06/18/22 06/18/22 History tiotropium bromide 2.5 1 puff inhalation DAILY 06/18/22 06/18/22 History mcg/actuation mist for inhalation (Spiriva Respimat) tizanidine 4 mg tablet 4 mg PO HS PRN muscle spasms 06/18/22 06/18/22 History Past Med/Surg History Medical History Anxiety and depression Asthma rare res inh use Bipolar 1 disorder Chronic back pain Degenerative disc disease Dyslipidemia Dyspnea Epilepsy hx of, last one in 1989's Fibromyalgia GERD (gastroesophageal reflux disease) Hypertension Hypothyroidism IBS (irritable bowel syndrome) SEEMA (iron deficiency anemia) Lumbar pain with radiation down both legs Lumbar post-laminectomy syndrome Migraine Morbid obesity Osteoarthritis Paroxysmal A-fib follows with Eduardo Gonsalez > Lucie RLS (restless legs syndrome) Sacroiliac joint pain Schizoaffective disorder Sleep apnea cpap Spinal stenosis Surgical History History of carpal tunnel release LEFT History of cataract surgery RT/LEFT History of cholecystectomy History of colonoscopy History of endoscopic sinus surgery History of tonsillectomy and adenoidectomy History of tooth extraction ALL UPPER TEETH EXTRACTIONS History of total abdominal hysterectomy and bilateral salpingo-oophorectomy Nausea and vomiting after administration of anesthetic agent S/P foot surgery, left X2 Status post lumbar spine surgery for decompression of spinal cord + RODS Family History Father Family history of diabetes mellitus Coronary heart disease Mother Lung cancer Sister Alive and well Brother Alive and well Other No family history of adverse response to anesthesia Social History Smoking Status: Former smoker Second Hand Exposure: Yes (IN THE PAST); Hx Alcohol Use: No Hx Substance Use: No Preferred Language: Greek Communication Ability: Effective Visual Impairment: No Limitations 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: Normal Porcelain Turner Required: No Beliefs That Will Affect Care: None marital status: Current Living Situation: Personal Care Facility Current Living Situation Comment: Skilled Nursing current occupational status: disabled Feels Safe at Home: Yes Assistive Devices: Cane and Walker Review of Systems Review of Systems: ROS per HPI, all other systems reviewed and negative Physical Exam Constitutional: WD/WN, vitals as above + obese; no acute distress Eyes: PERRL, conjunctivae normal, anicteric sclerae ENMT: external ear and nose normal, oropharynx normal Respiratory: normal respiratory effort; no respiratory distress Auscultation: + diminished lung sounds (Bilateral bases) Cardiovascular: Rate/Rhythm: regular rate and regular rhythm Vessels: normal peripheral pulses Extremities: no edema Gastrointestinal (Abdomen): normal bowel sounds, soft, nontender, no hepatosplenomegaly Musculoskeletal: no cyanosis or clubbing, extremities motor strength 5/5 Skin: no rashes, warm and dry + pallor Neurologic: PERRL, EOMI, accommodation nl, no face palsy, no dysarthria Psychiatric: A+Ox3, euthymic affect Results & Data Results & Data ([facility]) Vital Signs (Past 12 Hours) Vital Signs Temp Pulse Resp BP Pulse Ox O2 Del Method 06/18/22 20:54 98 Room Air 06/18/22 20:53 36.6 C 70 18 150/91 H 100 06/18/22 20:36 36.6 C 70 19 146/82 H 99 06/18/22 18:00 36.6 C 72 18 125/62 99 Room Air Laboratory Results Short CBC 06/18/22 Range/Units 18:26 WBC 9.22 (4.8-10.8) K/ul Hgb 4.6 L* (12.0-16.0) g/dl Hct 15.7 L* (34.1-44.9) % Plt Count 232 (130-400) K/uL BMP 06/18/22 18:26 Sodium 127 L Potassium 3.3 L Chloride 84 L Carbon Dioxide 36 H BUN 43 H Creatinine 1.80 H Glucose 143 H Calcium 9.0 Liver Function 06/18/22 Range/Units 18:26 Total Bilirubin 0.4 (0.2-1.0) mg/dl AST 13 (13-39) U/L ALT 10 (7-52) U/L Alkaline Phosphatase 93 (34-104) U/L Albumin 3.9 (3.4-5.0) gm/dl Diagnostic Findings Chest X-Ray 06/18/22 18:03 SINGLE VIEW CHEST CLINICAL HISTORY: Generalized weakness. FINDINGS: An AP, portable, upright chest radiograph is compared to study dated 02/17/2022. The examination is degraded by portable technique, large body habitus, and patient rotation. The cardiomediastinal silhouette is unremarkable. Bibasilar airspace opacities likely represent atelectasis. No large pleural effusion or no pneumothorax is seen. The bony thorax is grossly intact. IMPRESSION: Bibasilar opacities likely represent atelectasis. Clinical correlation will be required. ACT 112: Negative or not required by law. Electronically signed by: Gurinder Staley M.D. 06/18/2022 8:59 PM Supervising Physician Co-Signing Physician Notes IM ATTENDING : Patient seen and examined. History obtained from patient and records. Preceding documentation by ZION Haynes reviewed. In addition, patient noted to have dark brown stool at the ER noted to be heme positive. FINAL ASSESSMENT AND PLAN as follows : Symptomatic anemia Acute on chronic anemia History iron deficiency anemia Hemoglobin drop from baseline History Eliquis Rx for A.Flutter Secondary to UGIB hx GERD; antral gastritis from 2018 EGD, Hyponatremia, ARF secondary to illness at home medications Chronic diastolic heart failure (EF 63%, TTE 2021), patient on the dry side Pulmonary hypertension, MAURO on BiPAP HTN, slightly elevated seizure disorder, stable Schizoaffective disorder/mood disorder, stable on regimen History of fibromyalgia Hypothyroidism, TSH markedly elevated prediabetes, hemoglobin A1c of 5.8 last November 2020 Intellectual impairment as per records Past tobacco abuse Medical telemetry Transfuse pRBC maintain hemoglobin greater than 7 Hold Eliquis for now IV PPI for presumptive UGI B GI consult Re: UGI B Hyponatremia work-up Careful correction of sodium Baseline UA, monitor creatinine response to IVF Hold losartan and HCTZ until creatinine back to baseline Increase maintenance levothyroxine dose from 275 mcg to 300 mcg p.o. daily and recheck TSH next month DVT prophylaxis. SCDs while Eliquis on hold Full code Text document was generated using [employer] voice recognition software. It may contain grammatical or spelling errors. Kindly contact undersigned for clarification of any documentation item in question. (1) Anemia Anemia type: iron deficiency Iron deficiency anemia type: other iron deficiency Qualified Code(s): D50.8 - Other iron deficiency anemias
[2022-06-19] MEDS ORDERED: PANTOPRAZOLE BOLUS/DRIP 1 EACH IV STA (00:14)
[2022-06-19] MEDS ORDERED: SODIUM CHLORIDE 0.9% 250 ML IV PRN (00:19)
[2022-06-19] MEDS ORDERED: PANTOprazole 80 MG in DEXTROSE 5% 100 ML IV STA (00:20)
[2022-06-19 00:49] LABS: Appearance Urine Clear (Clear); Bilirubin Urine Negative (Negative); Blood Urine Negative (Negative); Color Urine Yellow; Glucose Urine UA Negative (Negative); Ketones Urine Negative (Negative); Leukocyte Esterase Urine Negative (Negative); Nitrite Urine Negative (Negative); Protein Urine Negative (Negative); Specific Gravity Urine 1.007 (1.000-1.030); Urobilinogen Urine Negative (Negative)
[2022-06-19] MEDS ORDERED: tiZANidine HCL 4 MG TABLET PO PRN (01:06)
[2022-06-19] MEDS ORDERED: PROMETHAZINE HCL 12.5 MG in SODIUM CHLORIDE 0.9% 50 ML IV PRN (01:06)
[2022-06-19 01:10] LABS: BUN Creatinine Ratio 26.4 (10-20); Creatinine Clr Calc Pharmacy 62.7 ml/min; Est GFR (Non-African American) 39.6 ml/min; Potassium 3.4 mmol/L (3.5-5.1)
[2022-06-19] MEDS: PANTOprazole 40 MG in DEXTROSE 5% 100 ML IV SCH ×4 (02:23→20:56)
[2022-06-19] MEDS: carvediloL 25 MG TAB PO SCH ×3 (02:24→21:09)
[2022-06-19] MEDS: lamoTRIgine 100 MG TAB PO SCH ×3 (02:24→21:12)
[2022-06-19] MEDS ORDERED: LACTATED RINGER'S 1,000 ML IV SCH (02:45)
[2022-06-19] MEDS: LEVOTHYROXINE SODIUM 150 MCG TABLET PO SCH (05:56)
[2022-06-19] MEDS ORDERED: Nursing to Pharmacy Communication SCH ×3 (06:15→17:15)
[2022-06-19] MEDS: FLUTICASONE/VILANTEROL 200/25MCG 14 PUFFS/INHALER INH SCH (07:43)
[2022-06-19] MEDS: UMECLIDINIUM BROMIDE 62.5MCG/BLISTER 7 PUFFS/INHALER INH SCH (07:43)
[2022-06-19] MEDS: SERTRALINE HCL 100 MG TABLET PO SCH (07:45)
[2022-06-19] MEDS: PERPHENAZINE 2 MG TABLET PO SCH (07:45)
[2022-06-19] MEDS: SOTALOL HCL 80 MG TAB PO SCH ×2 (07:45→21:14)
[2022-06-19] MEDS: DULoxetine HCL 30 MG CAP PO SCH (07:45)
[2022-06-19] MEDS: hydrALAZINE TAB 50 MG TAB PO SCH ×3 (07:47→21:10)
[2022-06-19] MEDS: busPIRone 5 MG TAB PO SCH ×3 (07:47→21:09)
[2022-06-19] MEDS ORDERED: NON-FORMULARY MEDICATION (Iron,Carbonyl-Vitamin C [Vitron-C] 65 mg iron- 125 mg Tablet,Del PO SCH (09:00)
[2022-06-19] MEDS ORDERED: PANTOprazole 40 MG TAB PO SCH (09:00)
[2022-06-19] MEDS ORDERED: NON-FORMULARY MEDICATION (Riboflavin (Vitamin B2) [Vitamin B-2] 100 mg Tablet) PO SCH (09:00)
[2022-06-19] MEDS ORDERED: NON-FORMULARY MEDICATION (Omeprazole 40 mg capsule,delayed release(DR/EC)) PO SCH (09:00)
[2022-06-19 10:49] LABS: Basophils # (auto) 0.06 K/uL (0-0.2); Basophils % (auto) 0.9 %; Hematocrit (blood only) 23.7 % (34.1-44.9); Hemoglobin 7.4 g/dl (12.0-16.0); Immature Granulocytes # (auto) 0.03 K/uL (0.00-0.02); Immature Granulocytes % (auto) 0.5 %; Lymphocytes # (auto) 0.87 K/uL (1.2-3.4); Lymphocytes % (auto) 13.6 %; Mean Corpuscular Hemoglobin 24.6 pg (25.0-34.0); Mean Corpuscular Hgb Conc 31.2 g/dL (32.0-36.0); Mean Corpuscular Volume 78.7 fL (80.0-100.0); Mean Platelet Volume 9.9 fL (9.4-12.3); Monocytes # (auto) 0.55 K/uL (0.24-0.82); Monocytes % (auto) 8.6 %; Neutrophils % (auto) 76.4 %; Nucleated RBC # (auto) 0.02 K/uL (0-0); Nucleated RBC % (auto) 0.3 %; Platelet Count 184 K/uL (130-400); RDW Coefficient of Variation 17.7 % (11.5-14.5); RDW Standard Deviation 51.2 fL (36.4-46.3); Red Blood Count 3.01 M/uL (3.93-5.22); White Blood Count 6.41 K/ul (4.8-10.8)
[2022-06-19] MEDS: ACETAMINOPHEN 325 MG TAB PO PRN ×2 (11:11→21:17)
[2022-06-19 11:33] LABS: BUN Creatinine Ratio 23.6 (10-20); Calcium 9.2 mg/dl (8.5-10.1); Est GFR (African American) 63.6 ml/min; Est GFR (Non-African American) 54.9 ml/min; Potassium 3.2 mmol/L (3.5-5.1)
[2022-06-19 11:51] LABS: Polychromasia 2+
[2022-06-19] MEDS ORDERED: POTASSIUM CHLORIDE CRTAB 20 MEQ TABCR PO STA (12:22)
--- NOTE | 2022-06-19 12:33 | Gastrointestinal Consultation ---
Date of Consultation June 19, 2022 Assessment & Plan (1) NATY (acute kidney injury): (2) Hyponatremia: (3) Anemia: 57 yo female with multiple comorbidities including chronic iron def anemia. She presented with symptomatic anemia and SOB. Noted ot have hgb of 4.6 (baseline 7-9) without overt s/s of GI bleeding. No melena. No hematemesis. Recent normal colonoscopy. (4) SEEMA (iron deficiency anemia): PPI IV Follow H/H daily. Follow renal function Hold eloquis for now Tenative plan for EGd Tuesday. Sooner if she develops overt s/s of Gi bleeding Clear liquids today (5) History of iron deficiency anemia: (6) Bipolar I disorder: History of Present Illness Reason for Consultation: anemia Attending Physician: Apoorva Valdovinos MD History of Present Illness 57 yo female iwht multiple medical problems including Estella on BiPAP, pulm HTN, bipolar disorder, PAF/A flutter on Eloquis, not taking any OTC NSAIDs, chroic anemia (baseline hgb 7-9 range_ received IV iron in past and seen by hematology - last IV iron was 04/2022) admitted with SOB and fatigue. She was noted ot have hgb of 4.6. She received 3 units of blood and hgb is 7.4 this AM. She tells me she has NOT had any nausea, vomiting or melena. No red blood in stool. Describes brown BM daily. No BM today. No known history of GI bleed. Had a colonoscopy for anemia in November of this year which was normal. She denies any abd pain. Her only complaint is that she is hungry and has a headaches from not eating. Allergies Allergy/AdvReac Type Severity Reaction Status Date / Time adhesive Allergy Intermediate RASH, ITCHY Verified 06/18/22 21:51 Hydantoins Allergy Intermediate Hives Verified 06/18/22 21:51 ethyl alcohol AdvReac Severe Seizure Verified 06/18/22 21:51 thioridazine AdvReac Severe SEIZURES Verified 06/18/22 21:51 phenytoin AdvReac Intermediate Nausea Verified 06/18/22 21:51 Home Medications Medication Instructions Recorded Confirmed Type apixaban 5 mg tablet (Eliquis) 5 mg PO BID 06/18/22 06/18/22 History buspirone 10 mg tablet 10 mg PO TID 06/18/22 06/18/22 History carvedilol 25 mg tablet 25 mg PO BID 06/18/22 06/18/22 History cholecalciferol (vitamin D3) 50 50 mcg PO DAILY 06/18/22 06/18/22 History mcg (2,000 unit) tablet (Vitamin D3) duloxetine 30 mg capsule,delayed 30 mg PO DAILY 06/18/22 06/18/22 History release fluticasone furoate 200 1 ea inhalation DAILY 06/18/22 06/18/22 History mcg-vilanterol 25 mcg/dose inhalation powder (Breo Ellipta) furosemide 40 mg tablet 40 mg PO BID 06/18/22 06/18/22 History gabapentin 300 mg capsule 300 mg PO HS 06/18/22 06/18/22 History hydralazine 50 mg tablet 50 mg PO TID 06/18/22 06/18/22 History hydrochlorothiazide 12.5 mg capsule 12.5 mg PO DAILY 06/18/22 06/18/22 History hydroxychloroquine 200 mg tablet 400 mg PO HS 06/18/22 06/18/22 History hydroxyzine HCl 25 mg tablet 25 mg PO DAILY PRN Anxiety 06/18/22 06/18/22 History iron,carbonyl 65 mg-vitamin C 125 1 tab PO BID 06/18/22 06/18/22 History mg tablet,delayed release (Vitron-C) lamotrigine 200 mg tablet 200 mg PO BID 06/18/22 06/18/22 History levocetirizine 5 mg tablet 2.5 mg PO PM 06/18/22 06/18/22 History levothyroxine 200 mcg tablet 200 mcg PO DAILY 06/18/22 06/18/22 History levothyroxine 75 mcg tablet 75 mcg PO DAILY 06/18/22 06/18/22 History losartan 100 mg tablet 100 mg PO DAILY 06/18/22 06/18/22 History melatonin 3 mg tablet 3 mg PO HS 06/18/22 06/18/22 History mirtazapine 30 mg tablet 30 mg PO HS 06/18/22 06/18/22 History montelukast 10 mg tablet 10 mg PO HS 06/18/22 06/18/22 History omeprazole 40 mg capsule,delayed 40 mg PO DAILY 06/18/22 06/18/22 History release paliperidone 9 mg tablet,extended 9 mg PO HS 06/18/22 06/18/22 History release 24 hr perphenazine 8 mg tablet 8 mg PO DAILY 06/18/22 06/18/22 History potassium chloride 10 mEq 10 meq PO DAILY 06/18/22 06/18/22 History tablet,extended release riboflavin (vitamin B2) 100 mg 400 mg PO DAILY 06/18/22 06/18/22 History tablet (Vitamin B-2) ropinirole 1 mg tablet 1 mg PO HS 06/18/22 06/18/22 History rosuvastatin 5 mg tablet 5 mg PO HS 06/18/22 06/18/22 History sertraline 100 mg tablet 100 mg PO DAILY 06/18/22 06/18/22 History sotalol 80 mg tablet 40 mg PO BID 06/18/22 06/18/22 History tiotropium bromide 2.5 1 puff inhalation DAILY 06/18/22 06/18/22 History mcg/actuation mist for inhalation (Spiriva Respimat) tizanidine 4 mg tablet 4 mg PO HS PRN muscle spasms 06/18/22 06/18/22 History Patient History Medical History Anxiety and depression Asthma rare res inh use Bipolar 1 disorder Chronic back pain Degenerative disc disease Dyslipidemia Dyspnea Epilepsy hx of, last one in Fibromyalgia GERD (gastroesophageal reflux disease) Hypertension Hypothyroidism IBS (irritable bowel syndrome) SEEMA (iron deficiency anemia) Lumbar pain with radiation down both legs Lumbar post-laminectomy syndrome Migraine Morbid obesity Osteoarthritis Paroxysmal A-fib follows with Eduardo Gonsalez > Lucie RLS (restless legs syndrome) Sacroiliac joint pain Schizoaffective disorder Sleep apnea cpap Spinal stenosis Surgical History History of carpal tunnel release LEFT History of cataract surgery RT/LEFT History of cholecystectomy History of colonoscopy History of endoscopic sinus surgery History of tonsillectomy and adenoidectomy History of tooth extraction ALL UPPER TEETH EXTRACTIONS History of total abdominal hysterectomy and bilateral salpingo-oophorectomy Nausea and vomiting after administration of anesthetic agent S/P foot surgery, left X2 Status post lumbar spine surgery for decompression of spinal cord + RODS Family History Father Family history of diabetes mellitus Coronary heart disease Mother Lung cancer Sister Alive and well Brother Alive and well Other No family history of adverse response to anesthesia Social History Smoking Status: Former smoker Second Hand Exposure: Yes (IN THE PAST); Hx Alcohol Use: No Hx Substance Use: No Preferred Language: Brazilian Communication Ability: Effective Visual Impairment: No Limitations 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: Normal Product Operations Associate Required: No Beliefs That Will Affect Care: None marital status: Current Living Situation: Personal Care Facility Current Living Situation Comment: Assisted current occupational status: disabled Feels Safe at Home: Yes Assistive Devices: Cane and Walker Review of Systems Review of Systems: All systems reviewed & are unremarkable except as noted in HPI & below Physical Exam Constitutional: WD/WN, vitals as above Eyes: PERRL, conjunctivae normal, anicteric sclerae Neck: trachea midline, no thyromegaly Respiratory: Auscultation: + diminished lung sounds Cardiovascular: RRR, no murmur, no edema Gastrointestinal (Abdomen): normal bowel sounds, soft, nontender, no hepatosplenomegaly Musculoskeletal: no cyanosis or clubbing, extremities motor strength 5/5 Neurologic: CN's II-XI intact bilaterally Results & Data ([facility]) Vital Signs (Past 12 Hours) Vital Signs Temp Pulse Pulse Resp BP BP Pulse Ox 06/19/22 12:01 37.0 C 65 20 147/73 H 94 06/19/22 10:00 36.6 C 64 136/81 94 06/19/22 09:05 36.7 C 64 146/75 H 94 06/19/22 08:05 36.7 C 65 143/84 H 94 06/19/22 07:56 06/19/22 07:05 36.5 C 63 16 139/82 95 06/19/22 06:35 36.4 C L 66 16 139/84 97 06/19/22 06:36 36.4 C L 66 16 139/84 97 06/19/22 06:35 36.4 C L 65 16 139/84 97 06/19/22 06:20 36.8 C 66 18 129/77 97 06/19/22 06:03 36.8 C 67 18 153/79 H 95 06/19/22 05:40 36.8 C 66 16 123/76 95 06/19/22 04:55 36.3 C L 66 16 130/79 99 06/19/22 04:08 69 97 06/19/22 03:55 36.5 C 65 16 128/77 99 06/19/22 02:55 36.5 C 67 16 140/83 96 06/19/22 02:25 36.4 C L 68 16 137/82 98 06/19/22 02:10 36.9 C 70 18 138/82 100 06/19/22 02:14 70 20 98 06/19/22 01:11 70 06/19/22 01:51 36.4 C L 74 18 147/83 H 95 06/19/22 01:09 06/19/22 01:09 36.5 C 76 16 162/88 H 95 O2 Del Method FiO2 06/19/22 12:01 Room Air 06/19/22 10:00 06/19/22 09:05 06/19/22 08:05 06/19/22 07:56 Room Air 06/19/22 07:05 06/19/22 06:35 06/19/22 06:36 06/19/22 06:35 06/19/22 06:20 06/19/22 06:03 06/19/22 05:40 06/19/22 04:55 06/19/22 04:08 06/19/22 03:55 06/19/22 02:55 06/19/22 02:25 06/19/22 02:10 06/19/22 02:14 21 06/19/22 01:11 06/19/22 01:51 06/19/22 01:09 Room Air 06/19/22 01:09 Room Air (1) Anemia Anemia type: iron deficiency Iron deficiency anemia type: other iron deficiency Qualified Code(s): D50.8 - Other iron deficiency anemias
--- NOTE | 2022-06-19 12:44 | Hospitalist Progress Note ---
Date of Service June 19, 2022 Assessment & Plan (1) Anemia: (2) Hyponatremia: (3) NATY (acute kidney injury): Plan 57-year-old lady with PMH of SEEMA, MAURO on BiPAP, paroxysmal A. fib and A flutter on Eliquis, pulm HTN, HLD, hypothyroidism, prediabetes, chronic diastolic CHF, HTN, morbid obesity, GERD, positive SOFIA with suspected underlying autoimmune disorder on Plaquenil, bipolar disorder, schizoaffective disorder presented to our ED 06/18 for evaluation of shortness of breath and fatigue. Patient reported having the symptoms for the past 2 weeks [employer], and the symptoms were getting worse. She is being managed for the following: Acute on chronic anemia Symptomatic anemia, likely UGI bleed History of iron deficiency anemia and GERD/antral gastritis Patient came in with shortness of breath and fatigue for 2 weeks [employer], progressively worsening. Patient noted to have dark brown stool at the ED, noted to be heme positive. Admitting hemoglobin of 4.6. Admitting CXR with no acute findings. Status post 3 unit PRBC, hemoglobin 7.4, follow H&H every 12 hours and as needed. Continue telemetry, patient without dizziness/chest pain/palpitation. Transfuse for hemoglobin less than 7 or symptomatic anemia. C/w ivf for now, monitor volume status. c/w PPI iv. GI evaled, hold eliquis for now, clear liquid diet, plan for EGD scope on Tuesday or sooner if she develops over s/s of GI bleeding. Acute Kidney Injury: Admitting Cr 1.80, likely prerenal 2/2 decreased circulating volume/anemia. Cr 1.1 today. Resolved. Will resume BP meds gradually. Mild hyponatremia: Likely secondary to acute illness, improving, continue to monitor. Other electrolyte abnormalities: Monitor and replete. Other chronic medical conditions: Chronic diastolic heart failure [EF 63%, TTE 2021], pulm hypertension, MAURO on BiPAP, HTN, seizure disorder/stable, schizoaffective disorder/mood disorder/stable on regimen, fibromyalgia, hypothyroidism, prediabetes [A1c 5.06 Dec 2020], intellectual impairment, past tobacco abuse Continue with/resume home meds as and when appropriate TSH markedly elevated, levothyroxine dose increased to 300 MCG from 275 MCG, repeat TFT after the acute issues resolve and follow-up with PCP closely. DVT prophylaxis: SCDsLucie on hold Full code Admission and Anticipated Discharge Date Admission Date: June 18, 2022 Subjective Patient was seen and examined at bedside as a follow-up of acute on chronic anemia and symptomatic anemia on the background of history of iron deficiency anemia. Patient was lying in bed, on room air, NAD, reports having 2-3 bowel movement but not able to comment on color of the stool, patient n.p.o. until evaluated by GI, patient denies any dizziness/headache/chest pain/palpitations/belly pain/other review of symptoms. Patient denies any new acute events overnight. Physical Exam Physical Exam: GENERAL: Alert and oriented x3. NAD, on RA. Class III obese. HEENT: No pallor, no icterus. Pupils equal, round and reactive to light. Oral mucosa moist. NECK: No JVD, no neck masses. HEART: S1 and S2 heard. Regular rate and rhythm. No murmur, no gallop. RESPIRATORY SYSTEM: Normal AP diameter. No accessory muscle use. No wheezing, no crackles. ABDOMEN: Soft, bowel sounds present, nontender, no distention. CENTRAL NERVOUS SYSTEM: No facial droop. Speech is clear. Obeys simple commands. Moves extremities. EXTREMITIES: No edema, no erythema seen. Results & Data Results & Data ([facility]) Vital Signs (Past 12 Hours) Vital Signs Temp Pulse Pulse Resp BP BP Pulse Ox 06/19/22 12:01 37.0 C 65 20 147/73 H 94 06/19/22 10:00 36.6 C 64 136/81 94 06/19/22 09:05 36.7 C 64 146/75 H 94 06/19/22 08:05 36.7 C 65 143/84 H 94 06/19/22 07:56 06/19/22 07:05 36.5 C 63 16 139/82 95 06/19/22 06:35 36.4 C L 66 16 139/84 97 06/19/22 06:36 36.4 C L 66 16 139/84 97 06/19/22 06:35 36.4 C L 65 16 139/84 97 06/19/22 06:20 36.8 C 66 18 129/77 97 06/19/22 06:03 36.8 C 67 18 153/79 H 95 06/19/22 05:40 36.8 C 66 16 123/76 95 06/19/22 04:55 36.3 C L 66 16 130/79 99 06/19/22 04:08 69 97 06/19/22 03:55 36.5 C 65 16 128/77 99 06/19/22 02:55 36.5 C 67 16 140/83 96 06/19/22 02:25 36.4 C L 68 16 137/82 98 06/19/22 02:10 36.9 C 70 18 138/82 100 06/19/22 02:14 70 20 98 06/19/22 01:11 70 06/19/22 01:51 36.4 C L 74 18 147/83 H 95 06/19/22 01:09 06/19/22 01:09 36.5 C 76 16 162/88 H 95 O2 Del Method FiO2 06/19/22 12:01 Room Air 06/19/22 10:00 06/19/22 09:05 06/19/22 08:05 06/19/22 07:56 Room Air 06/19/22 07:05 06/19/22 06:35 06/19/22 06:36 06/19/22 06:35 06/19/22 06:20 06/19/22 06:03 06/19/22 05:40 06/19/22 04:55 06/19/22 04:08 06/19/22 03:55 06/19/22 02:55 06/19/22 02:25 06/19/22 02:10 06/19/22 02:14 06/19/22 01:11 06/19/22 01:51 06/19/22 01:09 Room Air 06/19/22 01:09 Room Air (1) Anemia Anemia type: iron deficiency Iron deficiency anemia type: other iron deficiency Qualified Code(s): D50.8 - Other iron deficiency anemias
[2022-06-19] MEDS: POTASSIUM CHLORIDE / WTR 10 MEQ/100 ML PLCT IV SCH ×2 (13:12→14:20)
[2022-06-19 14:52] LABS: Hematocrit (blood only) 24.4 % (34.1-44.9); Hemoglobin 7.7 g/dl (12.0-16.0)
[2022-06-19] MEDS: hydrOXYzine HCl 25 MG TAB PO PRN (15:26)
[2022-06-19] MEDS ORDERED: GABAPENTIN 300 MG CAP PO SCH (21:00)
[2022-06-19] MEDS: HYDROXYCHLOROQUINE SULFATE 200 MG TAB PO SCH (21:11)
[2022-06-19] MEDS: MELATONIN 3 MG TAB PO SCH (21:12)
[2022-06-19] MEDS: LORATADINE 10 MG TAB PO SCH (21:12)
[2022-06-19] MEDS: MIRTAZAPINE TAB 15 MG TAB PO SCH (21:13)
[2022-06-19] MEDS: PALIPERIDONE 3 MG TABCR PO SCH (21:13)
[2022-06-19] MEDS: MONTELUKAST SODIUM 10 MG TABLET PO SCH (21:13)
[2022-06-19] MEDS: rOPINIRole HCL 1 MG TABLET PO SCH (21:14)
[2022-06-19] MEDS: ROSUVASTATIN CALCIUM 5 MG TAB PO SCH (21:14)
[2022-06-19 21:54] LABS: Hematocrit (blood only) 24.4 % (34.1-44.9); Hemoglobin 7.7 g/dl (12.0-16.0)
[2022-06-19] MEDS: oxyCODONE HCL IR 5 MG TAB (IMMEDIATE RELEASE) PO PRN (22:35)
[2022-06-19] MEDS: GABAPENTIN 150 MG/3 ML UDP PO SCH (22:46)
[2022-06-20] MEDS: PANTOprazole 40 MG in DEXTROSE 5% 100 ML IV SCH ×5 (01:31→22:27)
[2022-06-20] MEDS: LEVOTHYROXINE SODIUM 150 MCG TABLET PO SCH (05:40)
[2022-06-20] MEDS: hydrOXYzine HCl 25 MG TAB PO PRN (05:52)
--- NOTE | 2022-06-20 07:27 | Communication Note ---
Date of Service: June 20, 2022 H/H stable. No overt s/s of GI bleeding. Patiet may have a full liquid diet today unless primary service has other testing planned for patient. Please make patient NPO after MN for EGD tomorrow.
[2022-06-20 07:39] LABS: Hematocrit (blood only) 24.3 % (34.1-44.9); Hemoglobin 7.3 g/dl (12.0-16.0); Mean Corpuscular Hemoglobin 24.3 pg (25.0-34.0); Mean Corpuscular Volume 80.7 fL (80.0-100.0); Mean Platelet Volume 9.7 fL (9.4-12.3); Nucleated RBC # (auto) 0.02 K/uL (0-0); Nucleated RBC % (auto) 0.3 %; Platelet Count 183 K/uL (130-400); RDW Standard Deviation 52.7 fL (36.4-46.3); Red Blood Count 3.01 M/uL (3.93-5.22); White Blood Count 6.55 K/ul (4.8-10.8)
[2022-06-20 08:05] LABS: BUN Creatinine Ratio 15.9 (10-20); Calcium 9.2 mg/dl (8.5-10.1); Est GFR (African American) 83.4 ml/min; Est GFR (Non-African American) 71.9 ml/min; Magnesium 2.2 mg/dl (1.7-2.4); Phosphorus 2.6 mg/dl (2.5-4.9); Potassium 3.4 mmol/L (3.5-5.1)
[2022-06-20] MEDS ORDERED: POTASSIUM CHLORIDE CRTAB 20 MEQ TABCR PO STA (08:08)
[2022-06-20] MEDS: lamoTRIgine 100 MG TAB PO SCH ×2 (09:08→21:39)
[2022-06-20] MEDS: SOTALOL HCL 80 MG TAB PO SCH ×2 (09:08→21:44)
[2022-06-20] MEDS: hydrALAZINE TAB 50 MG TAB PO SCH ×3 (09:09→21:37)
[2022-06-20] MEDS: carvediloL 25 MG TAB PO SCH ×2 (09:11→21:35)
[2022-06-20] MEDS: busPIRone 5 MG TAB PO SCH ×3 (09:14→21:34)
[2022-06-20] MEDS: POTASSIUM CHLORIDE 10 MEQ TABCR PO SCH (09:15)
[2022-06-20] MEDS: hydroCHLOROthiazide 25 MG TAB PO SCH (09:15)
[2022-06-20] MEDS: PERPHENAZINE 2 MG TABLET PO SCH (09:16)
[2022-06-20] MEDS: LOSARTAN POTASSIUM 50 MG TAB PO SCH (09:17)
[2022-06-20] MEDS: DULoxetine HCL 30 MG CAP PO SCH (09:18)
[2022-06-20] MEDS: SERTRALINE HCL 100 MG TABLET PO SCH (09:18)
[2022-06-20] MEDS: UMECLIDINIUM BROMIDE 62.5MCG/BLISTER 7 PUFFS/INHALER INH SCH (09:20)
[2022-06-20] MEDS: FLUTICASONE/VILANTEROL 200/25MCG 14 PUFFS/INHALER INH SCH (09:20)
[2022-06-20] MEDS ORDERED: Nursing to Pharmacy Communication SCH (09:30)
--- NOTE | 2022-06-20 13:34 | Hospitalist Progress Note ---
Date of Service June 20, 2022 Assessment & Plan (1) Anemia: (2) Hyponatremia: (3) NATY (acute kidney injury): Plan 57-year-old lady with PMH of SEEMA, MAURO on BiPAP, paroxysmal A. fib and A flutter on Eliquis, pulm HTN, HLD, hypothyroidism, prediabetes, chronic diastolic CHF, HTN, morbid obesity, GERD, positive SOFIA with suspected underlying autoimmune disorder on Plaquenil, bipolar disorder, schizoaffective disorder presented to our ED 06/18 for evaluation of shortness of breath and fatigue. Patient reported having the symptoms for the past 2 weeks [employer], and the symptoms were getting worse. She is being managed for the following: Acute on chronic anemia Symptomatic anemia, likely UGI bleed History of iron deficiency anemia and GERD/antral gastritis Patient came in with shortness of breath and fatigue for 2 weeks [employer], progressively worsening. Patient noted to have dark brown stool at the ED, noted to be heme positive. Admitting hemoglobin of 4.6. Admitting CXR with no acute findings. Status post 3 unit PRBC, hemoglobin 7.4, follow H&H every 12 hours and as needed. f/u 2 PM HnH. Continue telemetry, patient without dizziness/chest pain/palpitation. Transfuse for hemoglobin less than 7 or symptomatic anemia. c/w PPI iv. d/w GI. GI evaled, hold eliquis for now, full liquid diet, plan for EGD scope on Tuesday or sooner if she develops over s/s of GI bleeding. Acute Kidney Injury: Admitting Cr 1.80, likely prerenal 2/2 decreased circulating volume/anemia. Resolved. Resume BP meds gradually. Mild hyponatremia: Likely secondary to acute illness, resolved, continue to monitor. Other electrolyte abnormalities: Monitor and replete. Other chronic medical conditions: Chronic diastolic heart failure [EF 63%, TTE 2021], pulm hypertension, MAURO on BiPAP, HTN, seizure disorder/stable, schizoaffective disorder/mood disorder/stable on regimen, fibromyalgia, hypothyroidism, prediabetes [A1c 5.06 Dec 2020], intellectual impairment, past tobacco abuse Continue with/resume home meds as and when appropriate TSH markedly elevated, levothyroxine dose increased to 300 MCG from 275 MCG, repeat TFT after the acute issues resolve and follow-up with PCP closely. DVT prophylaxis: SCDs, Eliquis on hold Full code Admission and Anticipated Discharge Date Admission Date: June 18, 2022 Subjective Patient was seen and examined at bedside as a follow-up of acute on chronic anemia and symptomatic anemia on the background of history of iron deficiency anemia. Patient was lying in bed, on room air, NAD, brown BM and no new issues overnight per RN, pt on full liq diet/npo midnight/likely EGD rachael, patient denies any dizziness/headache/chest pain/palpitations/belly pain/other review of symptoms. Patient denies any new acute events overnight. Physical Exam Physical Exam: GENERAL: Alert and oriented x3. NAD, on RA. Class III obese. HEENT: No pallor, no icterus. Pupils equal, round and reactive to light. Oral mucosa moist. NECK: No JVD, no neck masses. HEART: S1 and S2 heard. Regular rate and rhythm. No murmur, no gallop. RESPIRATORY SYSTEM: Normal AP diameter. No accessory muscle use. No wheezing, no crackles. ABDOMEN: Soft, bowel sounds present, nontender, no distention. CENTRAL NERVOUS SYSTEM: No facial droop. Speech is clear. Obeys simple commands. Moves extremities. EXTREMITIES: No edema, no erythema seen. Results & Data Results & Data ([facility]) Vital Signs (Past 12 Hours) Vital Signs Temp Pulse Resp BP Pulse Ox O2 Del Method 06/20/22 11:01 36.7 C 66 20 157/78 H 95 Room Air 06/20/22 07:23 37.1 C 69 20 158/81 H 93 Room Air 06/20/22 02:40 36.7 C 73 16 134/76 95 Room Air (1) Anemia Anemia type: iron deficiency Iron deficiency anemia type: other iron deficiency Qualified Code(s): D50.8 - Other iron deficiency anemias
[2022-06-20 14:05] LABS: Hematocrit (blood only) 27.8 % (34.1-44.9); Hemoglobin 8.4 g/dl (12.0-16.0)
[2022-06-20] MEDS: oxyCODONE HCL IR 5 MG TAB (IMMEDIATE RELEASE) PO PRN ×2 (17:16→21:29)
[2022-06-20] MEDS: FUROSEMIDE 40 MG TAB PO SCH (21:36)
[2022-06-20] MEDS: HYDROXYCHLOROQUINE SULFATE 200 MG TAB PO SCH (21:38)
--- NOTE | 2022-06-20 21:39 | Electrocardiogram Report ---
Test Reason : Blood Pressure : / mmHG Vent. Rate : 067 BPM Atrial Rate : 067 BPM P-R Int : 152 ms QRS Dur : 102 ms QT Int : 476 ms P-R-T Axes : 000 039 109 degrees QTc Int : 503 ms Poor data quality, interpretation may be adversely affected Normal sinus rhythm Low voltage QRS Nonspecific T wave abnormality Prolonged QT Abnormal ECG When compared with ECG of 17-FEB-2022 15:12, Nonspecific T wave abnormality now evident in Inferior leads Confirmed by Edi Alvarez ([id number]) on 06/20/2022 9:39:18 PM Referred By: REFERRED SELF Confirmed By:Edi Alvarez
[2022-06-20] MEDS: LORATADINE 10 MG TAB PO SCH (21:41)
[2022-06-20] MEDS: MELATONIN 3 MG TAB PO SCH (21:41)
[2022-06-20] MEDS: PALIPERIDONE 3 MG TABCR PO SCH (21:43)
[2022-06-20] MEDS: rOPINIRole HCL 1 MG TABLET PO SCH (21:43)
[2022-06-20] MEDS: MONTELUKAST SODIUM 10 MG TABLET PO SCH (21:43)
[2022-06-20] MEDS: ROSUVASTATIN CALCIUM 5 MG TAB PO SCH (21:44)
[2022-06-20] MEDS: GABAPENTIN 150 MG/3 ML UDP PO SCH (22:28)
[2022-06-20] MEDS: MIRTAZAPINE TAB 15 MG TAB PO SCH (23:10)
[2022-06-21] MEDS: PANTOprazole 40 MG in DEXTROSE 5% 100 ML IV SCH ×3 (03:40→15:16)
[2022-06-21] MEDS: LEVOTHYROXINE SODIUM 150 MCG TABLET PO SCH (05:53)
[2022-06-21 07:28] LABS: Hematocrit (blood only) 24.1 % (34.1-44.9); Hemoglobin 7.2 g/dl (12.0-16.0); Mean Corpuscular Hemoglobin 24.2 pg (25.0-34.0); Mean Corpuscular Hgb Conc 29.9 g/dL (32.0-36.0); Mean Corpuscular Volume 81.1 fL (80.0-100.0); Mean Platelet Volume 9.8 fL (9.4-12.3); Platelet Count 191 K/uL (130-400); RDW Coefficient of Variation 18.9 % (11.5-14.5); RDW Standard Deviation 55.7 fL (36.4-46.3); Red Blood Count 2.97 M/uL (3.93-5.22); White Blood Count 8.37 K/ul (4.8-10.8)
[2022-06-21 07:51] LABS: BUN Creatinine Ratio 9.8 (10-20); Calcium 9.6 mg/dl (8.5-10.1); Creatinine Clr Calc Pharmacy 100.2 ml/min; Est GFR (Non-African American) 68.2 ml/min; Magnesium 1.9 mg/dl (1.7-2.4); Potassium 3.9 mmol/L (3.5-5.1)
--- NOTE | 2022-06-21 08:33 | History & Physical Report ---
Date of Service June 21, 2022 Assessment & Plan (1) History of iron deficiency anemia: Plan: EGD today (2) Anemia: Admission and Anticipated Discharge Date Admission Date: June 18, 2022 History of Present Illness Chief Complaint: symptomatic anemia Primary Care Provider: Brian Salas, see consult note Allergies Allergy/AdvReac Type Severity Reaction Status Date / Time adhesive Allergy Intermediate RASH, ITCHY Verified 06/18/22 21:51 Hydantoins Allergy Intermediate Hives Verified 06/18/22 21:51 ethyl alcohol AdvReac Severe Seizure Verified 06/18/22 21:51 thioridazine AdvReac Severe SEIZURES Verified 06/18/22 21:51 phenytoin AdvReac Intermediate Nausea Verified 06/18/22 21:51 Home Medications Medication Instructions Recorded Confirmed Type apixaban 5 mg tablet (Eliquis) 5 mg PO BID 06/18/22 06/18/22 History buspirone 10 mg tablet 10 mg PO TID 06/18/22 06/18/22 History carvedilol 25 mg tablet 25 mg PO BID 06/18/22 06/18/22 History cholecalciferol (vitamin D3) 50 50 mcg PO DAILY 06/18/22 06/18/22 History mcg (2,000 unit) tablet (Vitamin D3) duloxetine 30 mg capsule,delayed 30 mg PO DAILY 06/18/22 06/18/22 History release fluticasone furoate 200 1 ea inhalation DAILY 06/18/22 06/18/22 History mcg-vilanterol 25 mcg/dose inhalation powder (Breo Ellipta) furosemide 40 mg tablet 40 mg PO BID 06/18/22 06/18/22 History gabapentin 300 mg capsule 300 mg PO HS 06/18/22 06/18/22 History hydralazine 50 mg tablet 50 mg PO TID 06/18/22 06/18/22 History hydrochlorothiazide 12.5 mg capsule 12.5 mg PO DAILY 06/18/22 06/18/22 History hydroxychloroquine 200 mg tablet 400 mg PO HS 06/18/22 06/18/22 History hydroxyzine HCl 25 mg tablet 25 mg PO DAILY PRN Anxiety 06/18/22 06/18/22 History iron,carbonyl 65 mg-vitamin C 125 1 tab PO BID 06/18/22 06/18/22 History mg tablet,delayed release (Vitron-C) lamotrigine 200 mg tablet 200 mg PO BID 06/18/22 06/18/22 History levocetirizine 5 mg tablet 2.5 mg PO PM 06/18/22 06/18/22 History levothyroxine 200 mcg tablet 200 mcg PO DAILY 06/18/22 06/18/22 History levothyroxine 75 mcg tablet 75 mcg PO DAILY 06/18/22 06/18/22 History losartan 100 mg tablet 100 mg PO DAILY 06/18/22 06/18/22 History melatonin 3 mg tablet 3 mg PO HS 06/18/22 06/18/22 History mirtazapine 30 mg tablet 30 mg PO HS 06/18/22 06/18/22 History montelukast 10 mg tablet 10 mg PO HS 06/18/22 06/18/22 History omeprazole 40 mg capsule,delayed 40 mg PO DAILY 06/18/22 06/18/22 History release paliperidone 9 mg tablet,extended 9 mg PO HS 06/18/22 06/18/22 History release 24 hr perphenazine 8 mg tablet 8 mg PO DAILY 06/18/22 06/18/22 History potassium chloride 10 mEq 10 meq PO DAILY 06/18/22 06/18/22 History tablet,extended release riboflavin (vitamin B2) 100 mg 400 mg PO DAILY 06/18/22 06/18/22 History tablet (Vitamin B-2) ropinirole 1 mg tablet 1 mg PO HS 06/18/22 06/18/22 History rosuvastatin 5 mg tablet 5 mg PO HS 06/18/22 06/18/22 History sertraline 100 mg tablet 100 mg PO DAILY 06/18/22 06/18/22 History sotalol 80 mg tablet 40 mg PO BID 06/18/22 06/18/22 History tiotropium bromide 2.5 1 puff inhalation DAILY 06/18/22 06/18/22 History mcg/actuation mist for inhalation (Spiriva Respimat) tizanidine 4 mg tablet 4 mg PO HS PRN muscle spasms 06/18/22 06/18/22 History Past Med/Surg History Medical History Anxiety and depression Asthma rare res inh use Bipolar 1 disorder Chronic back pain Degenerative disc disease Dyslipidemia Dyspnea Epilepsy hx of, last one in 1989's Fibromyalgia GERD (gastroesophageal reflux disease) Hypertension Hypothyroidism IBS (irritable bowel syndrome) SEEMA (iron deficiency anemia) Lumbar pain with radiation down both legs Lumbar post-laminectomy syndrome Migraine Morbid obesity Osteoarthritis Paroxysmal A-fib follows with Eduardo Gonsalez > Lucie RLS (restless legs syndrome) Sacroiliac joint pain Schizoaffective disorder Sleep apnea cpap Spinal stenosis Surgical History History of carpal tunnel release LEFT History of cataract surgery RT/LEFT History of cholecystectomy History of colonoscopy History of endoscopic sinus surgery History of tonsillectomy and adenoidectomy History of tooth extraction ALL UPPER TEETH EXTRACTIONS History of total abdominal hysterectomy and bilateral salpingo-oophorectomy Nausea and vomiting after administration of anesthetic agent S/P foot surgery, left X2 Status post lumbar spine surgery for decompression of spinal cord + RODS Family History Father Family history of diabetes mellitus Coronary heart disease Mother Lung cancer Sister Alive and well Brother Alive and well Other No family history of adverse response to anesthesia Social History Smoking Status: Former smoker Second Hand Exposure: Yes (IN THE PAST); Hx Alcohol Use: No Hx Substance Use: No Preferred Language: Eritrean Communication Ability: Effective Visual Impairment: No Limitations 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: Normal Auto Wash Buffer Required: No Beliefs That Will Affect Care: None marital status: Current Living Situation: Personal Care Facility Current Living Situation Comment: Long-Term current occupational status: disabled Feels Safe at Home: Yes Assistive Devices: BiPap, Cane and Walker Results & Data ([facility]) Vital Signs (Past 12 Hours) Vital Signs Temp Pulse Pulse Resp BP Pulse Ox O2 Del Method 06/21/22 08:15 37.0 C 77 20 181/75 H 92 Room Air 06/21/22 03:25 36.6 C 65 18 139/76 95 Room Air 06/20/22 22:20 75 06/20/22 23:24 36.8 C 67 18 144/81 H 95 Room Air Code Status & VTE Plan VTE Prophylaxis Plan VTE Prophylaxis will be ordered: Yes (1) Anemia Anemia type: iron deficiency Iron deficiency anemia type: other iron deficiency Qualified Code(s): D50.8 - Other iron deficiency anemias
--- NOTE | 2022-06-21 08:49 | Anesthesiology Consultation ---
Date of Service June 21, 2022 Assessment & Plan (1) Encounter for pre-operative examination: Chart Review Chart Review: Acceptable Risk for Surgery, Patient NOT seen in Pre Admission Testing and customs entry clerk initiated Consults Requested none Proposed Anesthesia Risk / Benefits Reviewed With: PT / POA / Parent / Guardian, Accepts Plan and Informed Consent Obtained History Surgery Operation Date: 06/21/22 17:00 Proposed Procedures p Esophagogastroduodenoscopy Dr Winter - Fernanda Winter, DO Height/Weight Height: 5 ft 5 in Weight: 155.6 kg Allergies Allergy/AdvReac Type Severity Reaction Status Date / Time adhesive Allergy Intermediate RASH, ITCHY Verified 06/18/22 21:51 Hydantoins Allergy Intermediate Hives Verified 06/18/22 21:51 ethyl alcohol AdvReac Severe Seizure Verified 06/18/22 21:51 thioridazine AdvReac Severe SEIZURES Verified 06/18/22 21:51 phenytoin AdvReac Intermediate Nausea Verified 06/18/22 21:51 Medications Home Medications Medication Instructions Recorded Confirmed Last Taken apixaban 5 mg tablet (Eliquis) 5 mg PO BID 06/18/22 06/18/22 06/18/22 09:00 buspirone 10 mg tablet 10 mg PO TID 06/18/22 06/18/22 Unknown carvedilol 25 mg tablet 25 mg PO BID 06/18/22 06/18/22 Unknown cholecalciferol (vitamin D3) 50 50 mcg PO DAILY 06/18/22 06/18/22 Unknown mcg (2,000 unit) tablet (Vitamin D3) duloxetine 30 mg capsule,delayed 30 mg PO DAILY 06/18/22 06/18/22 Unknown release fluticasone furoate 200 1 ea inhalation DAILY 06/18/22 06/18/22 Unknown mcg-vilanterol 25 mcg/dose inhalation powder (Breo Ellipta) furosemide 40 mg tablet 40 mg PO BID 06/18/22 06/18/22 Unknown gabapentin 300 mg capsule 300 mg PO HS 06/18/22 06/18/22 Unknown hydralazine 50 mg tablet 50 mg PO TID 06/18/22 06/18/22 Unknown hydrochlorothiazide 12.5 mg capsule 12.5 mg PO DAILY 06/18/22 06/18/22 Unknown hydroxychloroquine 200 mg tablet 400 mg PO HS 06/18/22 06/18/22 Unknown hydroxyzine HCl 25 mg tablet 25 mg PO DAILY PRN Anxiety 06/18/22 06/18/22 Unknown iron,carbonyl 65 mg-vitamin C 125 1 tab PO BID 06/18/22 06/18/22 Unknown mg tablet,delayed release (Vitron-C) lamotrigine 200 mg tablet 200 mg PO BID 06/18/22 06/18/22 Unknown levocetirizine 5 mg tablet 2.5 mg PO PM 06/18/22 06/18/22 Unknown levothyroxine 200 mcg tablet 200 mcg PO DAILY 06/18/22 06/18/22 Unknown levothyroxine 75 mcg tablet 75 mcg PO DAILY 06/18/22 06/18/22 Unknown losartan 100 mg tablet 100 mg PO DAILY 06/18/22 06/18/22 Unknown melatonin 3 mg tablet 3 mg PO HS 06/18/22 06/18/22 Unknown mirtazapine 30 mg tablet 30 mg PO HS 06/18/22 06/18/22 Unknown montelukast 10 mg tablet 10 mg PO HS 06/18/22 06/18/22 Unknown omeprazole 40 mg capsule,delayed 40 mg PO DAILY 06/18/22 06/18/22 Unknown release paliperidone 9 mg tablet,extended 9 mg PO HS 06/18/22 06/18/22 Unknown release 24 hr perphenazine 8 mg tablet 8 mg PO DAILY 06/18/22 06/18/22 Unknown potassium chloride 10 mEq 10 meq PO DAILY 06/18/22 06/18/22 Unknown tablet,extended release riboflavin (vitamin B2) 100 mg 400 mg PO DAILY 06/18/22 06/18/22 Unknown tablet (Vitamin B-2) ropinirole 1 mg tablet 1 mg PO HS 06/18/22 06/18/22 Unknown rosuvastatin 5 mg tablet 5 mg PO HS 06/18/22 06/18/22 Unknown sertraline 100 mg tablet 100 mg PO DAILY 06/18/22 06/18/22 Unknown sotalol 80 mg tablet 40 mg PO BID 06/18/22 06/18/22 Unknown tiotropium bromide 2.5 1 puff inhalation DAILY 06/18/22 06/18/22 Unknown mcg/actuation mist for inhalation (Spiriva Respimat) tizanidine 4 mg tablet 4 mg PO HS PRN muscle spasms 06/18/22 06/18/22 Unknown Active Medications Generic Name Dose Route Start Last Admin Trade Name Saji PRN Reason Stop Dose Admin Acetaminophen 650 mg 06/19/22 01:06 06/19/22 21:17 Acetaminophen 325 Mg Tab PO 07/19/22 01:05 650 mg Q4H PRN Administration Pain or Fever Buspirone HCl 10 mg 06/19/22 09:00 06/20/22 21:34 Buspirone 5 Mg Tab PO 07/19/22 08:59 10 mg TID RAVI Administration Carvedilol 25 mg 06/19/22 01:06 06/20/22 21:35 Carvedilol 25 Mg Tab PO 07/19/22 01:05 25 mg BID RAVI Administration Duloxetine HCl 30 mg 06/19/22 09:00 06/20/22 09:18 Duloxetine Hcl 30 Mg Cap PO 07/19/22 08:59 30 mg DAILY RAVI Administration Fluticasone/Vilanterol 1 puffs 06/19/22 09:00 06/20/22 09:20 Fluticasone/Vilanterol 200/25mcg 14 Puffs/Inhaler INH 07/19/22 08:59 1 puffs DAILY RAVI Administration Furosemide 40 mg 06/20/22 21:00 06/20/22 21:36 Furosemide 40 Mg Tab PO 07/20/22 20:59 40 mg BID RAVI Administration Gabapentin 150 mg 06/19/22 21:00 06/20/22 22:28 Gabapentin 150 Mg/3 Ml Udp PO 07/19/22 20:59 150 mg HS RAVI Administration Hydralazine HCl 50 mg 06/19/22 09:00 06/20/22 21:37 Hydralazine Tab 50 Mg Tab PO 07/19/22 08:59 50 mg TID RAVI Administration Hydrochlorothiazide 12.5 mg 06/20/22 09:00 06/20/22 09:15 Hydrochlorothiazide 25 Mg Tab PO 07/20/22 08:59 12.5 mg DAILY RAVI Administration Hydroxychloroquine Sulfate 400 mg 06/19/22 21:00 06/20/22 21:38 Hydroxychloroquine Sulfate 200 Mg Tab PO 07/19/22 20:59 400 mg HS RAVI Administration Hydroxyzine HCl 25 mg 06/19/22 01:06 06/20/22 05:52 Hydroxyzine Hcl 25 Mg Tab PO 07/19/22 01:05 25 mg DAILY PRN Administration Anxiety Pantoprazole Sodium 40 mg/ 100 mls @ 20 mls/hr 06/19/22 00:45 06/21/22 03:40 Dextrose IV 07/19/22 00:44 8 mg/hr Q5H RAVI 20 mls/hr Administration 8 MG/HR Promethazine HCl 12.5 mg/ 50.5 mls @ 202 mls/hr 06/19/22 01:06 06/20/22 19:54 Sodium Chloride IV 07/19/22 01:05 Infused Q6H PRN Infusion Nausea And Vomiting Lamotrigine 200 mg 06/19/22 01:06 06/20/22 21:39 Lamotrigine 100 Mg Tab PO 07/19/22 01:05 200 mg BID RAVI Administration Levothyroxine Sodium 300 mcg 06/19/22 06:30 06/21/22 05:53 Levothyroxine Sodium 150 Mcg Tablet PO 07/19/22 06:29 300 mcg DAILYBB RAVI Administration Loratadine 10 mg 06/19/22 21:00 06/20/22 21:41 Loratadine 10 Mg Tab PO 07/19/22 20:59 10 mg QPM RAVI Administration Losartan Potassium 100 mg 06/20/22 09:00 06/20/22 09:17 Losartan Potassium 50 Mg Tab PO 07/20/22 08:59 100 mg DAILY RAVI Administration Melatonin 3 mg 06/19/22 21:00 06/20/22 21:41 Melatonin 3 Mg Tab PO 07/19/22 20:59 3 mg HS RAVI Administration Mirtazapine 30 mg 06/19/22 21:00 06/20/22 23:10 Mirtazapine Tab 15 Mg Tab PO 07/19/22 20:59 30 mg HS RAVI Administration Montelukast Sodium 10 mg 06/19/22 21:00 06/20/22 21:43 Montelukast Sodium 10 Mg Tablet PO 07/19/22 20:59 10 mg HS RAVI Administration Oxycodone HCl 5 - 10 mg 06/19/22 22:06 06/20/22 21:29 Oxycodone Hcl Ir 5 Mg Tab (Immediate Release) PO 07/03/22 22:05 10 mg QID PRN Administration Pain Paliperidone 9 mg 06/19/22 21:00 06/20/22 21:43 Paliperidone 3 Mg Tabcr PO 07/19/22 20:59 9 mg HS RAVI Administration Perphenazine 8 mg 06/19/22 09:00 06/20/22 09:16 Perphenazine 2 Mg Tablet PO 07/19/22 08:59 8 mg DAILY RAVI Administration Potassium Chloride 10 meq 06/20/22 09:00 06/20/22 09:15 Potassium Chloride 10 Meq Tabcr PO 07/20/22 08:59 10 meq DAILY RAVI Administration Ropinirole HCl 1 mg 06/19/22 21:00 06/20/22 21:43 Ropinirole Hcl 1 Mg Tablet PO 07/19/22 20:59 1 mg HS RAVI Administration Rosuvastatin Calcium 5 mg 06/19/22 21:00 06/20/22 21:44 Rosuvastatin Calcium 5 Mg Tab PO 07/19/22 20:59 5 mg HS RAVI Administration Sertraline HCl 100 mg 06/19/22 09:00 06/20/22 09:18 Sertraline Hcl 100 Mg Tablet PO 07/19/22 08:59 100 mg DAILY RAVI Administration Sotalol HCl 40 mg 06/19/22 09:00 06/20/22 21:44 Sotalol Hcl 80 Mg Tab PO 07/19/22 08:59 40 mg BID RAVI Administration Umeclidinium Olden 1 puffs 06/19/22 09:00 06/20/22 09:20 Umeclidinium Olden 62.5mcg/Blister 7 Puffs/Inhaler INH 07/19/22 08:59 1 puffs DAILY RAVI Administration NPO Date Last Intake of Fluids: 06/20/22 Time Last Intake of Fluids: 17:00 Date Last Intake of Solids: 06/18/22 Time Last Intake of Solids: 13:00 Past Medical History Medical History (Updated 06/21/22 @ 08:51 by Beny Montes MD) Anxiety and depression Asthma rare res inh use Bipolar 1 disorder Chronic back pain Degenerative disc disease Dyslipidemia Dyspnea Encounter for pre-operative examination Epilepsy hx of, last one in Fibromyalgia GERD (gastroesophageal reflux disease) Hypertension Hypothyroidism IBS (irritable bowel syndrome) SEEMA (iron deficiency anemia) Lumbar pain with radiation down both legs Lumbar post-laminectomy syndrome Migraine Morbid obesity Osteoarthritis Paroxysmal A-fib follows with Eduardo Wallace > Eliquis RLS (restless legs syndrome) Sacroiliac joint pain Schizoaffective disorder Sleep apnea cpap Spinal stenosis Past Family History Family History Father Family history of diabetes mellitus Coronary heart disease Mother Lung cancer Sister Alive and well Brother Alive and well Other No family history of adverse response to anesthesia Past Surgical History Surgical History History of carpal tunnel release LEFT History of cataract surgery RT/LEFT History of cholecystectomy History of colonoscopy History of endoscopic sinus surgery History of tonsillectomy and adenoidectomy History of tooth extraction ALL UPPER TEETH EXTRACTIONS History of total abdominal hysterectomy and bilateral salpingo-oophorectomy Nausea and vomiting after administration of anesthetic agent S/P foot surgery, left X2 Status post lumbar spine surgery for decompression of spinal cord + RODS Social History Smoking Status: Former smoker tobacco type: cigarettes Hx Alcohol Use: No Hx Substance Use: No substance use type: does not use Physical Exam Vital Signs Last Vital Signs Temp 37.3 C 06/21/22 08:41 Pulse 91 H 06/21/22 08:41 Resp 20 06/21/22 08:41 BP 175/107 H 06/21/22 08:41 Pulse Ox 93 06/21/22 08:41 O2 Del Method 06/21/22 08:41 FiO2 21 06/19/22 04:08 Testing Laboratory Results 06/21/22 06:48 06/21/22 06:48 Urine Color Yellow 06/19/22 Unknown Urine Appearance Clear (Clear) 06/19/22 Unknown Urine pH 6.0 (4.5-7.5) 06/19/22 Unknown Ur Specific [place] 1.007 (1.000-1.030) 06/19/22 Unknown Urine Protein Negative (Negative) 06/19/22 Unknown Urine Glucose (UA) Negative (Negative) 06/19/22 Unknown Urine Ketones Negative (Negative) 06/19/22 Unknown Urine Nitrite Negative (Negative) 06/19/22 Unknown Ur Leukocyte Esterase Negative (Negative) 06/19/22 Unknown Blood Type B Positive 06/18/22 18:26 Antibody Screen NEGATIVE 06/18/22 18:26 Electrocardiogram Date: 06/18/22 Test Reason : Blood Pressure : / mmHG Vent. Rate : 067 BPM Atrial Rate : 067 BPM P-R Int : 152 ms QRS Dur : 102 ms QT Int : 476 ms P-R-T Axes : 000 039 109 degrees QTc Int : 503 ms Poor data quality, interpretation may be adversely affected Normal sinus rhythm Low voltage QRS Nonspecific T wave abnormality Prolonged QT Abnormal ECG When compared with ECG of 17-FEB-2022 15:12, Nonspecific T wave abnormality now evident in Inferior leads Confirmed by Edi Alvarez ([id number]) on 06/20/2022 9:39:18 PM Chest X-Ray Date: 06/18/22 SINGLE VIEW CHEST CLINICAL HISTORY: Generalized weakness. FINDINGS: An AP, portable, upright chest radiograph is compared to study dated 02/17/2022. The examination is degraded by portable technique, large body habitus, and patient rotation. The cardiomediastinal silhouette is unremarkable. Bibasilar airspace opacities likely represent atelectasis. No large pleural effusion or no pneumothorax is seen. The bony thorax is grossly intact. IMPRESSION: Bibasilar opacities likely represent atelectasis. Clinical correlation will be required.
[2022-06-21] MEDS ORDERED: LIDOCAINE 2% MPF LOCAL 5 ML VIAL INFIL ONE (09:16)
[2022-06-21] MEDS ORDERED: PROPOFOL IV EMULSION 10 MG/ML 20 ML VIAL IV ONE (09:16)
--- NOTE | 2022-06-21 09:24 | GI REPORT ---
Patient Name: Sofia Melton Procedure Date: 06/21/2022 9:08 AM Date of : 1965 Admit Type: Inpatient Age: 57 Gender: Female Attending MD: Fernanda Winter DO, Procedure: Upper GI endoscopy Providers: Fernanda Winter DO Referring MD: Apoorva Valdovinos Md Indications: Iron deficiency anemia Medicines: Propofol per Anesthesia Complications: No immediate complications. Estimated blood loss: None. Estimated Blood Loss: Estimated blood loss: none. Procedure: Pre-Anesthesia Assessment: - Prior to the procedure, a History and Physical was performed, and patient medications, allergies and sensitivities were reviewed. The patient's tolerance of previous anesthesia was reviewed. - The risks and benefits of the procedure and the sedation options and risks were discussed with the patient. All questions were answered and informed consent was obtained. - Patient identification and proposed procedure were verified prior to the procedure by the physician and the nurse. The procedure was verified in the pre-procedure area in the procedure room. - Mental Status Examination: alert and oriented. Airway Examination: normal oropharyngeal airway and neck mobility. Respiratory Examination: clear to auscultation. CV Examination: normal. Abdominal Examination: bowel sounds present, abdomen soft and non-tender, no masses or organomegaly noted. - ASA Grade Assessment: III - A patient with severe systemic disease. After obtaining informed consent, the endoscope was passed under direct vision. Throughout the procedure, the patient's blood pressure, pulse, and oxygen saturations were monitored continuously. The Endoscope was introduced through the mouth, and advanced to the second part of duodenum. The upper GI endoscopy was accomplished without difficulty. The patient tolerated the procedure well. Findings: The esophagus was normal. The stomach was normal. The examined duodenum was normal. Impression: - Normal esophagus. - Normal stomach. - Normal examined duodenum. - No specimens collected. Recommendation: - Return patient to [facility] for ongoing care. - Resume previous diet. Sreedhar Galindo DO 06/21/2022 9:23:58 AM This report has been signed electronically. Note Initiated On: 06/21/2022 9:08 AM Number of Addenda: 0 I attest to the content of the Intraoperative Record and orders documented therein, exceptions below {[id number]}
[2022-06-21] MEDS: FUROSEMIDE 40 MG TAB PO SCH ×2 (10:22→21:03)
[2022-06-21] MEDS: carvediloL 25 MG TAB PO SCH ×2 (10:22→21:02)
[2022-06-21] MEDS: hydrALAZINE TAB 50 MG TAB PO SCH ×3 (10:22→21:05)
[2022-06-21] MEDS: lamoTRIgine 100 MG TAB PO SCH ×2 (10:22→21:04)
[2022-06-21] MEDS: busPIRone 5 MG TAB PO SCH ×3 (10:22→21:05)
--- NOTE | 2022-06-21 10:22 | Anesthesiology Progress Note ---
Date of Service June 21, 2022 Anesthesia Post Procedure Vital Signs Vital Signs: Temp Pulse Pulse Resp BP Pulse Ox O2 Del Method 06/21/22 09:48 73 16 158/83 H 93 Room Air 06/21/22 09:33 79 14 161/78 H 94 Room Air 06/21/22 09:18 77 14 182/100 H 97 Room Air 06/21/22 08:41 37.3 C 91 H 20 175/107 H 93 Room Air 06/21/22 08:15 37.0 C 77 20 181/75 H 92 Room Air 06/21/22 03:25 36.6 C 65 18 139/76 95 Room Air 06/20/22 22:20 75 06/20/22 23:24 36.8 C 67 18 144/81 H 95 Room Air 06/20/22 19:15 36.7 C 63 18 156/73 H 95 Room Air 06/20/22 14:19 69 06/20/22 14:32 36.5 C 70 20 163/68 H 95 Room Air 06/20/22 11:01 36.7 C 66 20 157/78 H 95 Room Air Pain Intensity Head: Pain Intensity: 7 Transfer of Care Handoff Completed per policy Notes Mental Status: alert / awake / arousable and participated in evaluation Patient Amnestic to Procedure: Yes Nausea / Vomiting: adequately controlled Pain: adequately controlled Airway Patency, RR, SpO2: stable & adequate BP & HR: stable & adequate Hydration State: stable & adequate Anesthetic Complications: no major complications apparent and Pt Satisfied with anesthetic care
[2022-06-21] MEDS: SOTALOL HCL 80 MG TAB PO SCH ×2 (10:23→21:02)
[2022-06-21] MEDS: PERPHENAZINE 2 MG TABLET PO SCH (10:23)
[2022-06-21] MEDS: hydroCHLOROthiazide 25 MG TAB PO SCH (10:23)
[2022-06-21] MEDS: DULoxetine HCL 30 MG CAP PO SCH (10:24)
[2022-06-21] MEDS: LOSARTAN POTASSIUM 50 MG TAB PO SCH (10:24)
[2022-06-21] MEDS: UMECLIDINIUM BROMIDE 62.5MCG/BLISTER 7 PUFFS/INHALER INH SCH (10:25)
[2022-06-21] MEDS: POTASSIUM CHLORIDE 10 MEQ TABCR PO SCH (10:25)
[2022-06-21] MEDS: SERTRALINE HCL 100 MG TABLET PO SCH (10:25)
[2022-06-21] MEDS: FLUTICASONE/VILANTEROL 200/25MCG 14 PUFFS/INHALER INH SCH (10:26)
[2022-06-21] MEDS ORDERED: hydrALAZINE HCL 20 MG/ML VIAL IV PRN (11:35)
[2022-06-21] MEDS: oxyCODONE HCL IR 5 MG TAB (IMMEDIATE RELEASE) PO PRN (16:45)
--- NOTE | 2022-06-21 16:45 | Hospitalist Progress Note ---
Date of Service June 21, 2022 Assessment & Plan (1) Anemia: (2) Hyponatremia: (3) NATY (acute kidney injury): Plan 57-year-old lady with PMH of SEEMA, MAURO on BiPAP, paroxysmal A. fib and A flutter on Eliquis, pulm HTN, HLD, hypothyroidism, prediabetes, chronic diastolic CHF, HTN, morbid obesity, GERD, positive SOFIA with suspected underlying autoimmune disorder on Plaquenil, bipolar disorder, schizoaffective disorder presented to our ED 06/18 for evaluation of shortness of breath and fatigue. Patient reported having the symptoms for the past 2 weeks [employer], and the symptoms were getting worse. She is being managed for the following: Acute on chronic anemia Symptomatic anemia, likely UGI bleed History of iron deficiency anemia and GERD/antral gastritis Patient came in with shortness of breath and fatigue for 2 weeks [employer], progressively worsening. Patient noted to have dark brown stool at the ED, noted to be heme positive. Admitting hemoglobin of 4.6. Admitting CXR with no acute findings. Status post 3 unit PRBC, hemoglobin 7.2, follow H&H daily or as needed. Continue telemetry, patient without dizziness/chest pain/palpitation. Transfuse for hemoglobin less than 7 or symptomatic anemia. EGD 06/21: normal esophagus/stomach/examined duodenum. No specimens collected. IV to PO PPI. Adv diet and monitor HnH overnight. Hb maintaining stable, nl EGD, will resume eliquis. Acute Kidney Injury: Admitting Cr 1.80, likely prerenal 2/2 decreased circulating volume/anemia. Resolved. Resume BP meds gradually. Mild hyponatremia: Likely secondary to acute illness, resolved, continue to m onitor. Other electrolyte abnormalities: Monitor and replete. Other chronic medical conditions: Chronic diastolic heart failure [EF 63%, TTE 2021], pulm hypertension, MAURO on BiPAP, HTN, seizure disorder/stable, schizoaffective disorder/mood disorder/stable on regimen, fibromyalgia, hypothyroidism, prediabetes [A1c 5.06 Dec 2020], intellectual impairment, past tobacco abuse Continue with/resume home meds as and when appropriate TSH markedly elevated, levothyroxine dose increased to 300 MCG from 275 MCG, repeat TFT after the acute issues resolve and follow-up with PCP closely. DVT prophylaxis: Eliquis Full code Dispo: PT/OT, CM to assist. Admission and Anticipated Discharge Date Admission Date: June 18, 2022 Subjective Patient was seen and examined at bedside as a follow-up of acute on chronic anemia and symptomatic anemia on the background of history of iron deficiency anemia. Patient was sitting up in chair, on room air, NAD, brown BM and no new issues overnight per RN, normal EGD scope today, resume diet and monitor Hb, patient denies any dizziness/headache/chest pain/palpitations/belly pain/other review of symptoms. Patient denies any new acute events overnight. Physical Exam Physical Exam: GENERAL: Alert and oriented x3. NAD, on RA. Class III obese. HEENT: No pallor, no icterus. Pupils equal, round and reactive to light. Oral mucosa moist. NECK: No JVD, no neck masses. HEART: S1 and S2 heard. Regular rate and rhythm. No murmur, no gallop. RESPIRATORY SYSTEM: Normal AP diameter. No accessory muscle use. No wheezing, no crackles. ABDOMEN: Soft, bowel sounds present, nontender, no distention. CENTRAL NERVOUS SYSTEM: No facial droop. Speech is clear. Obeys simple commands. Moves extremities. EXTREMITIES: No edema, no erythema seen. Results & Data Results & Data ([facility]) Vital Signs (Past 12 Hours) Vital Signs Temp Pulse Resp BP BP Pulse Ox O2 Del Method 06/21/22 15:06 36.6 C 79 18 164/76 H 96 Room Air 06/21/22 13:12 155/84 H 130/77 06/21/22 11:24 36.9 C 68 20 187/78 H 100 Room Air 06/21/22 09:48 73 16 158/83 H 93 Room Air 06/21/22 09:33 79 14 161/78 H 94 Room Air 06/21/22 09:18 77 14 182/100 H 97 Room Air 06/21/22 08:41 37.3 C 91 H 20 175/107 H 93 Room Air 06/21/22 08:15 37.0 C 77 20 181/75 H 92 Room Air (1) Anemia Anemia type: iron deficiency Iron deficiency anemia type: other iron deficiency Qualified Code(s): D50.8 - Other iron deficiency anemias
[2022-06-21] MEDS: MONTELUKAST SODIUM 10 MG TABLET PO SCH (21:01)
[2022-06-21] MEDS: MIRTAZAPINE TAB 15 MG TAB PO SCH (21:01)
[2022-06-21] MEDS: MELATONIN 3 MG TAB PO SCH (21:01)
[2022-06-21] MEDS: rOPINIRole HCL 1 MG TABLET PO SCH (21:01)
[2022-06-21] MEDS: HYDROXYCHLOROQUINE SULFATE 200 MG TAB PO SCH (21:02)
[2022-06-21] MEDS: LORATADINE 10 MG TAB PO SCH (21:02)
[2022-06-21] MEDS: ROSUVASTATIN CALCIUM 5 MG TAB PO SCH (21:04)
[2022-06-21] MEDS: PALIPERIDONE 3 MG TABCR PO SCH (21:04)
[2022-06-21] MEDS: PANTOprazole 40 MG TAB PO SCH (21:11)
[2022-06-21] MEDS: APIXABAN 5 MG TABLET PO SCH (21:11)
[2022-06-21] MEDS: GABAPENTIN 150 MG/3 ML UDP PO SCH (21:11)
[2022-06-21] MEDS: hydrOXYzine HCl 25 MG TAB PO PRN (21:24)
[2022-06-22] MEDS: LEVOTHYROXINE SODIUM 150 MCG TABLET PO SCH (05:56)
[2022-06-22 06:31] LABS: Hemoglobin 7.2 g/dl (12.0-16.0); Mean Corpuscular Hemoglobin 24.7 pg (25.0-34.0); Mean Corpuscular Volume 82.2 fL (80.0-100.0); Mean Platelet Volume 9.6 fL (9.4-12.3); Platelet Count 176 K/uL (130-400); RDW Coefficient of Variation 19.4 % (11.5-14.5); RDW Standard Deviation 58.1 fL (36.4-46.3); Red Blood Count 2.92 M/uL (3.93-5.22); White Blood Count 8.69 K/ul (4.8-10.8)
[2022-06-22 07:03] LABS: BUN Creatinine Ratio 11.5 (10-20); Calcium 9.3 mg/dl (8.5-10.1); Creatinine Clr Calc Pharmacy 75.4 ml/min; Est GFR (African American) 56.2 ml/min; Est GFR (Non-African American) 48.5 ml/min; Potassium 3.7 mmol/L (3.5-5.1)
[2022-06-22] MEDS: PANTOprazole 40 MG TAB PO SCH (08:15)
[2022-06-22] MEDS: APIXABAN 5 MG TABLET PO SCH (08:15)
[2022-06-22] MEDS: hydrALAZINE TAB 50 MG TAB PO SCH ×2 (08:16→13:09)
[2022-06-22] MEDS: lamoTRIgine 100 MG TAB PO SCH (08:16)
[2022-06-22] MEDS: busPIRone 5 MG TAB PO SCH ×2 (08:16→13:09)
[2022-06-22] MEDS: SERTRALINE HCL 100 MG TABLET PO SCH (08:17)
[2022-06-22] MEDS: DULoxetine HCL 30 MG CAP PO SCH (08:17)
[2022-06-22] MEDS: POTASSIUM CHLORIDE 10 MEQ TABCR PO SCH (08:17)
[2022-06-22] MEDS: PERPHENAZINE 2 MG TABLET PO SCH (08:17)
[2022-06-22] MEDS: FUROSEMIDE 40 MG TAB PO SCH (08:17)
[2022-06-22] MEDS: LOSARTAN POTASSIUM 50 MG TAB PO SCH (08:18)
[2022-06-22] MEDS: hydroCHLOROthiazide 25 MG TAB PO SCH (08:18)
[2022-06-22] MEDS: FLUTICASONE/VILANTEROL 200/25MCG 14 PUFFS/INHALER INH SCH (08:19)
[2022-06-22] MEDS: SOTALOL HCL 80 MG TAB PO SCH (08:19)
[2022-06-22] MEDS: UMECLIDINIUM BROMIDE 62.5MCG/BLISTER 7 PUFFS/INHALER INH SCH (08:19)
[2022-06-22] MEDS: carvediloL 25 MG TAB PO SCH (09:06)
--- NOTE | 2022-06-22 12:39 | Discharge Summary ---
Date of Service June 22, 2022 Admission HPI Per Admitting Provider 57-year-old female with PMH dyslipidemia, hypothyroidism, prediabetes, MAURO on BiPAP, asthma, paroxysmal atrial 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 and atrial flutter on Eliquis, pulmonary hypertension, chronic diastolic CHF, HTN, morbid obesity, GERD, positive SOFIA with suspected underlying autoimmune disorder on Plaquenil, iron deficiency anemia, bipolar disorder, schizoaffective disorder, and other problems listed below who presents to the ED for evaluation of shortness of breath and fatigue. Patient reports she has been having the symptoms for the past 2 weeks. Reports shortness of breath and fatigue has been progressively getting worse. She states that she feels short of breath and her legs feel very weak with minimal exertion. She has had associated lightheadedness however denies dizziness and syncopal event. No chest pain or palpitations. Denies abdominal pain, nausea, vomiting, diarrhea, bright red bleeding per rectum, dark tarry stools. No other recent illnesses, fevers, chills. Denies urinary symptoms. In the ED, labs show Hgb 4.6, Na+ 127, creatinine 1.8. Patient was typed and crossed for PRBC transfusion. Note history of iron deficiency anemia that did not respond to oral iron replacement therapy, has received iron infusions in the past, most recently being on 04/02/2022. Last colonoscopy 11/2021 negative. Admission Exam Per Admitting Provider Constitutional: WD/WN, vitals as above + obese; no acute distress Eyes: PERRL, conjunctivae normal, anicteric sclerae ENMT: external ear and nose normal, oropharynx normal Respiratory: normal respiratory effort; no respiratory distress Auscultation: + diminished lung sounds (Bilateral bases) Cardiovascular: Rate/Rhythm: regular rate and regular rhythm Vessels: normal peripheral pulses Extremities: no edema Gastrointestinal (Abdomen): normal bowel sounds, soft, nontender, no hepatosplenomegaly Musculoskeletal: no cyanosis or clubbing, extremities motor strength 5/5 Skin: no rashes, warm and dry + pallor Neurologic: PERRL, EOMI, accommodation nl, no face palsy, no dysarthria Psychiatric: A+Ox3, euthymic affect Principal Diagnosis Acute on chronic anemia Symptomatic anemia, likely UGI bleed History of iron deficiency anemia History of GERD/antral gastritis Acute kidney injury Mild hyponatremia Discharge Exam GENERAL: Alert and oriented x3. NAD, on RA. Class III obese. HEENT: No pallor, no icterus. Pupils equal, round and reactive to light. Oral mucosa moist. NECK: No JVD, no neck masses. HEART: S1 and S2 heard. Regular rate and rhythm. No murmur, no gallop. RESPIRATORY SYSTEM: Normal AP diameter. No accessory muscle use. No wheezing, no crackles. ABDOMEN: Soft, bowel sounds present, nontender, no distention. CENTRAL NERVOUS SYSTEM: No facial droop. Speech is clear. Obeys simple commands. Moves extremities. EXTREMITIES: No edema, no erythema seen. Discharge Data Allergies Allergy/AdvReac Type Severity Reaction Status Date / Time adhesive Allergy Intermediate RASH, ITCHY Verified 06/18/22 21:51 Hydantoins Allergy Intermediate Hives Verified 06/18/22 21:51 ethyl alcohol AdvReac Severe Seizure Verified 06/18/22 21:51 thioridazine AdvReac Severe SEIZURES Verified 06/18/22 21:51 phenytoin AdvReac Intermediate Nausea Verified 06/18/22 21:51 Consultations 06/18/22 20:41 ED Decision to Admit Stat 06/19/22 00:14 Consult Gastroenterology Routine Procedures Performed Operation Date: 06/21/22 17:00 Actual Procedures p Esophagogastroduodenoscopy - Fernanda Winter, Hospital Course (1) Anemia: (2) Hyponatremia: (3) NATY (acute kidney injury): Plan 57-year-old lady with PMH of SEEMA, MAURO on BiPAP, paroxysmal A. fib and A flutter on Eliquis, pulm HTN, HLD, hypothyroidism, prediabetes, chronic diastolic CHF, HTN, morbid obesity, GERD, positive SOFIA with suspected underlying autoimmune disorder on Plaquenil, bipolar disorder, schizoaffective disorder presented to our ED 06/18 for evaluation of shortness of breath and fatigue. Patient reported having the symptoms for the past 2 weeks CASER, and the symptoms were getting worse. She was managed for the following: Acute on chronic anemia Symptomatic anemia, likely UGI bleed History of iron deficiency anemia and GERD/antral gastritis Patient came in with shortness of breath and fatigue for 2 weeks CASER, progressively worsening. Patient noted to have dark brown stool at the ED, noted to be heme positive. Admitting hemoglobin of 4.6. Admitting CXR with no acute findings. Status post 3 unit PRBC, hemoglobin 7.2, has been stable, pt having brown BM, pt feels strong, hemodynamically stable. EGD 06/21: normal esophagus/stomach/examined duodenum. No specimens collected. PPI BID upon DC, f/u or establish w/ GI as OP as needed. Labs in a week time w/ pcp follow up. Acute Kidney Injury: Admitting Cr 1.80, likely prerenal 2/2 decreased circulating volume/anemia. Resolved. Mild hyponatremia: Likely secondary to acute illness, resolved, continue to monitor. Other electrolyte abnormalities: Monitor and replete. Other chronic medical conditions: Chronic diastolic heart failure [EF 63%, TTE 2021], pulm hypertension, MAURO on BiPAP, HTN, seizure disorder/stable, schizoaffective disorder/mood disorder/stable on regimen, fibromyalgia, hypothyroidism, prediabetes [A1c 5.06 Dec 2020], intellectual impairment, past tobacco abuse Continue with/resume home meds as and when appropriate TSH markedly elevated, levothyroxine dose increased to 300 MCG from 275 MCG, repeat TFT after the acute issues resolve and follow-up with PCP closely. DVT prophylaxis: Lucie Full code Pt being discharged to home w/ home health with following instructions at the point of discharge: Follow-up with your primary care physician within a week time and likely you will need blood test CBC/CMP/magnesium level. You will be discharged on omeprazole 40 mg twice a day for a month time, then you will likely have to follow-up with his GI doctor for ongoing evaluation. Your thyroid function tests were markedly elevated while in hospital, your thyroid medication has been increased, you will need repeat blood test for your thyroid function test in 6 weeks time. Coordinate with your PCP. Take your medications as prescribed. Home Health Attestation I certify that this patient is under my care and that I, or a physicians assistant property manager working with me, had a face to-face encounter that meets the home health [id number] encounter requirements with this patient. The encounter with the patient was in whole, or in part, for the following medical condition, which is the primary reason for home health care (list medical condition): I certify that, based on my findings, the following services are medically necessary home health services: My clinical findings support the need for the above services because: Further, I certify that my clinical findings support that this patient is homebound (i.e. absences from home require considerable and taxing effort and are for medical reasons or evangelical services or infrequently or of short duration when for other reasons) because: Certification for Home Health Services: Based on the above findings, I certify that this patient is confined to the home and needs intermittent jail care, physical therapy and/or speech therapy or continues to need occupational therapy. The patient is under my care, and I have initiated the establishment of the plan of care. This patient will be followed by a physician who will periodically review the plan of care. Total Time Total Time Spent Total Time Spent (In Minutes): 45 Discharge Plan Discharge Items Patient Disposition: Home - Home Health Services Reason For Visit: SYMPTOMATIC ANEMIA Discharge Diagnosis: Acute on chronic anemia Symptomatic anemia, likely UGI bleed History of iron deficiency anemia History of GERD/antral gastritis Acute kidney injury Mild hyponatremia Activity: Resume your previous activity Non-emergency contact: Primary Care Provider Call non-emergency contact if: you have any medication questions, your symptoms worsen and your temperature is above 101 Follow-up/Referrals: Brian Salas, [Primary Care Provider] - Diet: Heart Healthy Diet Texture: Easy to Chew Addtl Attending Provider Instructions: Follow-up with your primary care physician within a week time and likely you will need blood test CBC/CMP/magnesium level. You will be discharged on omeprazole 40 mg twice a day for a month time, then you will likely have to follow-up with his GI doctor for ongoing evaluation. Your thyroid function tests were markedly elevated while in hospital, your thyroid medication has been increased, you will need repeat blood test for your thyroid function test in 6 weeks time. Coordinate with your PCP. Take your medications as prescribed. Pending Studies at Discharge: No Stand-Alone Forms: My [facility] [employer], Smoking Cessation Medications and DC Order Prescriptions: New levothyroxine [Synthroid] 150 mcg Tablet 300 mcg PO DAILYBB Qty: 60 0RF Continued furosemide 40 mg tablet 40 mg PO BID carvedilol 25 mg tablet 25 mg PO BID lamotrigine 200 mg tablet 200 mg PO BID ropinirole 1 mg tablet 1 mg PO HS tizanidine 4 mg tablet 4 mg PO HS PRN (Reason: muscle spasms) sotalol 80 mg tablet 40 mg PO BID sertraline 100 mg tablet 100 mg PO DAILY potassium chloride 10 mEq tablet extended release 10 meq PO DAILY melatonin 3 mg Tablet 3 mg PO HS mirtazapine 30 mg tablet 30 mg PO HS buspirone 10 mg tablet 10 mg PO TID hydrochlorothiazide 12.5 mg capsule 12.5 mg PO DAILY gabapentin 300 mg capsule 300 mg PO HS montelukast 10 mg Tablet 10 mg PO HS hydroxyzine HCl 25 mg tablet 25 mg PO DAILY PRN (Reason: Anxiety) hydralazine 50 mg tablet 50 mg PO TID hydroxychloroquine 200 mg tablet 400 mg PO HS perphenazine 8 mg tablet 8 mg PO DAILY losartan 100 mg tablet 100 mg PO DAILY rosuvastatin 5 mg tablet 5 mg PO HS duloxetine 30 mg capsule,delayed release(DR/EC) 30 mg PO DAILY paliperidone 9 mg Tablet Extended Release 24 Hr 9 mg PO HS levocetirizine 5 mg Tablet 2.5 mg PO PM cholecalciferol (vitamin D3) [Vitamin D3] 50 mcg (2,000 unit) Tablet 50 mcg PO DAILY Spiriva Respimat 2.5 mcg/actuation mist 1 puff INHALATION DAILY Eliquis 5 mg tablet 5 mg PO BID fluticasone furoate-vilanterol [Breo Ellipta] 200-25 mcg/dose blister with device 1 ea INHALATION DAILY riboflavin (vitamin B2) [Vitamin B-2] 100 mg Tablet 400 mg PO DAILY Vitron-C 65 mg iron- 125 mg Tablet,Delayed Release (Dr/Ec) 1 tab PO BID Changed omeprazole 40 mg capsule,delayed release(DR/EC) 40 mg PO BID Qty: 60 0RF Discontinued levothyroxine 75 mcg tablet 75 mcg PO DAILY levothyroxine 200 mcg tablet 200 mcg PO DAILY Rx Instructions: Patient states she takes a 200 mcg tab with 75 mcg tab. Discharge Orders: Discharge Order (Routine); Ordered 06/22/22 Ordered By: Apoorva Valdovinos Admission Data Admit Date/Time: 06/18/22 23:58 Attending Provider: Apoorva Valdovinos Admit Provider: Sarbjit French Primary Care Provider: Brian Salas Other Providers: Sarbjit French ; Chula Miller ; Gio Viveros ; Ellen Rivero ; Vijaya Thomson ; Ludmila Rich ; Susan Walton ; Jonah Jimenez ; Medina Neely ; Christiano Noriega ; Isadora Alfaro ; Katy Guevara ; Mk [employer] ; Lena Wu ; Fernanda Winter ; Aziza Malloy ; Rosalie Mackenzie ; Anusha Mcfadden ; Satya Currie ; Kunal Penaloza ; Ritu Sun ; Ny Lara Jr Other Interventions: Discharge Summary Assessment (RN) Last Done: 06/22/22 11:25
== END 2022-06-22 13:56 | disposition home or self-care (01) | DRG 378 ==
LOC: ED 17:49 → 2N 23:58

== ENCOUNTER 2022-11-25 09:16 | Inpatient (IN) ==
[2022-11-25] MEDS ORDERED: SODIUM CHLORIDE 0.9% 500 ML IV ONE (09:38)
--- NOTE | 2022-11-25 10:15 | XRay Report ---
XR chest 1V portable HISTORY: Chest pain, nonspecific COMPARISON: Chest 06/18/2022. FINDINGS: Slightly rotated study. No pneumothorax. No pleural effusions. Hazy appearance to lung base s is likely due to overlapping soft tissue. Otherwise, no focal lung consolidations to suggest a pneu monia. No evidence for pulmonary edema. The heart remains top normal in size. IMPRESSION: No acute process. ACT 112: Negative or not required by law. Electronically signed by: Smooth Maya M.D. 11/25/2022 10:14 AM
[2022-11-25 10:34] LABS: Albumin Globulin Ratio 1.1 (0.9-2); Albumin Level 3.6 gm/dl (3.4-5.0); BUN Creatinine Ratio 20.9 (10-20); Bilirubin,Total 0.3 mg/dl (0.2-1.0); Calcium 9.2 mg/dl (8.6-10.3); Est GFR (Non-African American) 69.1 ml/min; Globulin 3.3 gm/dl (2.5-4.0); Magnesium 1.9 mg/dl (1.7-2.4); Phosphorus 4.3 mg/dl (2.5-4.9); Potassium 3.4 mmol/L (3.5-5.1); Total Protein 6.9 gm/dl (6.0-8.3)
[2022-11-25 10:39] LABS: Troponin I High Sensitivity 3.1 pg/ml (0-14)
[2022-11-25 10:42] LABS: Hematocrit (blood only) 17.4 % (37.0-47.0); Hemoglobin 4.7 g/dl (12.0-16.0); Mean Corpuscular Hemoglobin 19.7 pg (25.0-34.0); Mean Corpuscular Volume 72.8 fL (80.0-100.0); Mean Platelet Volume 10.9 fL (9.4-12.4); Nucleated RBC # (auto) 0.02 K/uL (0-0.12); Nucleated RBC % (auto) 0.3 %; Platelet Count 197 K/uL (130-400); RDW Coefficient of Variation 18.4 % (11.5-14.5); RDW Standard Deviation 48.6 fL (36.4-46.3); Red Blood Count 2.39 M/uL (4.20-5.40); White Blood Count 6.19 K/ul (4.8-10.8)
[2022-11-25 10:43] LABS: Basophils # (auto) 0.03 K/uL (0-0.2); Basophils % (auto) 0.5 %; Hypochromasia Present; Immature Granulocytes # (auto) 0.02 K/uL (0.01-0.20); Immature Granulocytes % (auto) 0.3 %; Lymphocytes # (auto) 0.77 K/uL (1.2-3.4); Lymphocytes % (auto) 12.4 %; Microcytosis Present; Monocytes % (auto) 11.3 %; Neutrophils # (auto) 4.67 K/uL (1.40-6.50); Neutrophils % (auto) 75.5 %; Polychromasia 1+; Tear Drop Cells 1+
[2022-11-25] MEDS ORDERED: SODIUM CHLORIDE 0.9% 250 ML IV PRN (11:19)
--- NOTE | 2022-11-25 11:48 | History & Physical Report ---
Date of Service November 25, 2022 Assessment & Plan (1) Symptomatic anemia: Plan: Symptomatic Anemia Acute on chronic microcytic Anemia H/O Iron deficiency Anemia H/O GERD, Antral Gastritis INR: 1.1 Anemia work up, FOBT pending Avoid NSAIDs, aspirin Hold Eliquis for now Monitor H&H and transfuse PRBCs as needed Monitor for volume overload GI consulted Continue Protonix Needs follow-up with hematology upon discharge Will likely need iron transfusion while hospitalized Hypokalemia Replete electrolytes as needed Monitor Paroxysmal atrial 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 Continue carvedilol, sotalol Eliquis on hold due to significant anemia SCDs for now while Eliquis on hold Currently in sinus Resume Eliquis as able Schizoaffective disorder Bipolar disorder Depression Restless leg syndrome Continue home medications Hypertension Continue home medications Chronic diastolic heart failure No signs of decompensation Continue home diuretics Monitor volume status Epilepsy Continue home medications Obstructive sleep apnea On BiPAP at bedtime Hypothyroidism Continue levothyroxine Antiphospholipid syndrome Resume anticoagulation as able DVT Px: SCDs for now Code Status Full Code History of Present Illness Chief Complaint: Dyspnea Primary Care Provider: Brian Salas DO Patient is a 57-year-old female with history of paroxysmal atrial 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, schizoaffective disorder, pulmonary hypertension, chronic diastolic heart failure, chronic migraine, GERD, epilepsy, dyslipidemia, hypertension, obstructive sleep apnea, hypothyroidism, Irritable bowel syndrome, major depression, bipolar disorder, restless leg syndrome, iron deficiency anemia, antiphospholipid syndrome and other medical problems presents with history of dyspnea on exertion and states feeling tired with minimal activity which has been gradually worsening over 2 months. Patient is a poor historian. She follows with [facility] hematology for management of iron deficiency anemia and gets iron transfusions. Last iron transfusion is in July 2022 as per patient. Denies any bleeding per rectum, melena, hematuria, epistaxis. she states taking Advil about 5 days ago for headache and arthritis. She is currently on Eliquis for paroxysmal atrial 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. Last EGD was done in June 2022 which was normal. Denies any history of chest pain, palpitations, dizziness, diaphoresis, cough, wheezing, hemoptysis, fever, chills, change in vision, nausea, vomiting, abdominal pain, diarrhea, dysuria. She also follows with psychiatry for management of for mood disorder. Allergies Allergy/AdvReac Type Severity Reaction Status Date / Time adhesive Allergy Intermediate RASH, ITCHY Verified 06/18/22 21:51 Hydantoins Allergy Intermediate Hives Verified 06/18/22 21:51 ethyl alcohol AdvReac Severe Seizure Verified 06/18/22 21:51 thioridazine AdvReac Severe SEIZURES Verified 06/18/22 21:51 phenytoin AdvReac Intermediate Nausea Verified 06/18/22 21:51 Home Medications Medication Instructions Recorded Confirmed Type apixaban 5 mg tablet (Eliquis) 5 mg PO BID 06/18/22 11/25/22 History buspirone 10 mg tablet 10 mg PO TID 06/18/22 11/25/22 History carvedilol 25 mg tablet 25 mg PO BID 06/18/22 11/25/22 History cholecalciferol (vitamin D3) 50 50 mcg PO DAILY 06/18/22 11/25/22 History mcg (2,000 unit) tablet (Vitamin D3) duloxetine 30 mg capsule,delayed 30 mg PO DAILY 06/18/22 11/25/22 History release fluticasone furoate 200 1 ea inhalation DAILY 06/18/22 11/25/22 History mcg-vilanterol 25 mcg/dose inhalation powder (Breo Ellipta) furosemide 40 mg tablet 40 mg PO BID 06/18/22 11/25/22 History gabapentin 300 mg capsule 300 mg PO HS 06/18/22 11/25/22 History hydralazine 50 mg tablet 50 mg PO TID 06/18/22 11/25/22 History hydrochlorothiazide 12.5 mg capsule 12.5 mg PO DAILY 06/18/22 11/25/22 History hydroxychloroquine 200 mg tablet 400 mg PO HS 06/18/22 11/25/22 History hydroxyzine HCl 25 mg tablet 25 mg PO DAILY PRN Anxiety 06/18/22 11/25/22 History iron,carbonyl 65 mg-vitamin C 125 1 tab PO BID 06/18/22 11/25/22 History mg tablet,delayed release (Vitron-C) lamotrigine 200 mg tablet 200 mg PO BID 06/18/22 11/25/22 History levocetirizine 5 mg tablet 2.5 mg PO PM 06/18/22 11/25/22 History losartan 100 mg tablet 100 mg PO DAILY 06/18/22 11/25/22 History melatonin 3 mg tablet 3 mg PO HS 06/18/22 11/25/22 History mirtazapine 30 mg tablet 30 mg PO HS 06/18/22 11/25/22 History montelukast 10 mg tablet 10 mg PO HS 06/18/22 11/25/22 History paliperidone 9 mg tablet,extended 9 mg PO HS 06/18/22 11/25/22 History release 24 hr perphenazine 8 mg tablet 8 mg PO DAILY 06/18/22 11/25/22 History potassium chloride 10 mEq 10 meq PO DAILY 06/18/22 11/25/22 History tablet,extended release riboflavin (vitamin B2) 100 mg 400 mg PO DAILY 06/18/22 11/25/22 History tablet (Vitamin B-2) ropinirole 1 mg tablet 1 mg PO HS 06/18/22 11/25/22 History rosuvastatin 5 mg tablet 5 mg PO HS 06/18/22 11/25/22 History sertraline 100 mg tablet 125 mg PO DAILY 06/18/22 11/25/22 History sotalol 80 mg tablet 40 mg PO BID 06/18/22 11/25/22 History tiotropium bromide 2.5 1 puff inhalation DAILY 06/18/22 11/25/22 History mcg/actuation mist for inhalation (Spiriva Respimat) tizanidine 4 mg tablet 4 mg PO Q8H PRN muscle spasms 06/18/22 11/25/22 History levothyroxine 150 mcg tablet 300 mcg PO DAILYBB #60 tabs 06/22/22 11/25/22 Rx (Synthroid) omeprazole 40 mg capsule,delayed 40 mg PO BID #60 caps 06/22/22 11/25/22 Rx release Past Med/Surg History Medical History Admitted to intensive care unit Anxiety and depression Asthma rare res inh use Bipolar 1 disorder Chronic back pain Degenerative disc disease DVT prophylaxis Dyslipidemia Dyspnea Encounter for pre-operative examination Epilepsy hx of, last one in 1989' Fibromyalgia GERD (gastroesophageal reflux disease) Hypertension Hypertensive emergency Hypothyroidism IBS (irritable bowel syndrome) SEEMA (iron deficiency anemia) Lumbar pain with radiation down both legs Lumbar post-laminectomy syndrome Migraine Morbid obesity Nausea and vomiting Osteoarthritis Paroxysmal A-fib follows with Eduardo Gonsalez > Lucie RLS (restless legs syndrome) Sacroiliac joint pain Schizoaffective disorder Seizure SEIZURES X 2 (); CONTROLLED ON LAMICTAL Sleep apnea cpap Spinal stenosis Surgical History History of carpal tunnel release LEFT History of cataract surgery RT/LEFT History of cholecystectomy History of colonoscopy History of endoscopic sinus surgery History of tonsillectomy and adenoidectomy History of tooth extraction ALL UPPER TEETH EXTRACTIONS History of total abdominal hysterectomy and bilateral salpingo-oophorectomy Nausea and vomiting after administration of anesthetic agent S/P foot surgery, left X2 Status post lumbar spine surgery for decompression of spinal cord + RODS Family History Father Family history of diabetes mellitus Coronary heart disease Mother Lung cancer Sister Alive and well Brother Alive and well Other No family history of adverse response to anesthesia Social History Smoking Status: Never smoker Second Hand Exposure: Yes (IN THE PAST); Do You Dip or Chew Tobacco: No; Hx Alcohol Use: No Hx Substance Use: No Preferred Language: Swedish Communication Ability: Effective Visual Impairment: No Limitations 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: Normal Travel Insurance Agent Required: No Beliefs That Will Affect Care: Adventism marital status: Current Living Situation: Personal Care Facility Current Living Situation Comment: [facility] current occupational status: disabled Feels Safe at Home: Yes Assistive Devices: BiPap, Cane and Walker Review of Systems Review of Systems: All systems reviewed & are unremarkable except as noted in HPI & below Physical Exam Physical Exam: Physical Exam: Vitals signs as noted above General Appearance:Morbidly Obese, no apparent distress Head: normocephalic, Atraumatic Eyes: normal inspection, EOMI Neck: supple, Trachea midline Respiratory/Chest: Normal breath sounds, CTA, No accessory muscle use Cardiovascular: S1, S2, No murmur Abdomen/GI:Soft, Non tender, Protuberant, Bowel sounds present Extremities/Musculoskeletal:normal inspection, 1+ B/L LE edema Neurologic/Psych:AAOX3, grossly no focal neurological deficits Skin: normal color, warm Results & Data Results & Data Vital Signs (Past 12 Hours) Vital Signs Temp Pulse Resp BP Pulse Ox O2 Del Method 11/25/22 11:30 78 28 H 137/70 96 Room Air 11/25/22 11:23 137/67 11/25/22 11:23 80 24 97 11/25/22 11:20 79 26 H 98 11/25/22 11:10 78 21 97 11/25/22 10:30 77 24 144/83 H 96 Room Air 11/25/22 10:11 82 24 147/80 H 95 Room Air 11/25/22 09:30 81 18 130/71 96 Room Air 11/25/22 09:27 83 11/25/22 09:22 95 Room Air 11/25/22 09:22 37.5 C 81 24 156/66 H 96 Room Air Laboratory Results Laboratory Results WBC 6.19 K/ul (4.8-10.8) 11/25/22 09:49 RBC 2.39 M/uL (4.20-5.40) L 11/25/22 09:49 Hgb 4.7 g/dl (12.0-16.0) L* 11/25/22 09:49 Hct 17.4 % (37.0-47.0) L* 11/25/22 09:49 MCV 72.8 fL (80.0-100.0) L 11/25/22 09:49 MCH 19.7 pg (25.0-34.0) L 11/25/22 09:49 MCHC 27.0 g/dL (32.0-36.0) L 11/25/22 09:49 RDW Std Deviation 48.6 fL (36.4-46.3) H 11/25/22 09:49 RDW Coeff of Lor 18.4 % (11.5-14.5) H 11/25/22 09:49 Plt Count 197 K/uL (130-400) 11/25/22 09:49 MPV 10.9 fL (9.4-12.4) 11/25/22 09:49 Immature Gran % (Auto) 0.3 % 11/25/22 09:49 Neut % (Auto) 75.5 % 11/25/22 09:49 Lymph % (Auto) 12.4 % 11/25/22 09:49 Swisher % (Auto) 11.3 % 11/25/22 09:49 Eos % (Auto) 0.0 % 11/25/22 09:49 Baso % (Auto) 0.5 % 11/25/22 09:49 Reticulocyte % (Auto) 3.1 % (0.5-2.0) H 11/25/22 09:49 Neut # (Auto) 4.67 K/uL (1.40-6.50) 11/25/22 09:49 Lymph # (Auto) 0.77 K/uL (1.2-3.4) L 11/25/22 09:49 Swisher # (Auto) 0.70 K/uL (0.11-0.59) H 11/25/22 09:49 Eos # (Auto) 0.00 K/uL (0-0.50) 11/25/22 09:49 Baso # (Auto) 0.03 K/uL (0-0.2) 11/25/22 09:49 Reticulocyte # 0.07 10^6/uL (0.02-0.10) 11/25/22 09:49 Immature Gran # (Auto) 0.02 K/uL (0.01-0.20) 11/25/22 09:49 Absolute Nucleated RBC 0.02 K/uL (0-0.12) 11/25/22 09:49 Nucleated RBC % (auto) 0.3 % 11/25/22 09:49 Polychromasia 1+ 11/25/22 09:49 Hypochromasia Present 11/25/22 09:49 Microcytosis Present 11/25/22 09:49 Tear Drop Cells 1+ 11/25/22 09:49 PT 12.4 Seconds (9.0-12.0) H 11/25/22 09:49 INR 1.1 (0.9-1.1) 11/25/22 09:49 Sodium 140 mmol/L (136-145) 11/25/22 09:49 Potassium 3.4 mmol/L (3.5-5.1) L 11/25/22 09:49 Chloride 99 mmol/L (98-107) 11/25/22 09:49 Carbon Dioxide 33 mmol/L (21-32) H 11/25/22 09:49 Anion Gap 8 (3-11) 11/25/22 09:49 BUN 19 mg/dl (6-23) 11/25/22 09:49 Creatinine 0.91 mg/dl (0.6-1.2) 11/25/22 09:49 Est Cr Clr Drug Dosing 103.0 ml/min 04 09:49 Est GFR ( Amer) 80.0 ml/min 11/25/22 09:49 Est GFR (Non-Af Amer) 69.1 ml/min 11/25/22 09:49 BUN/Creatinine Ratio 20.9 (10-20) H 11/25/22 09:49 Glucose 90 mg/dl (70-99(Fasting)) 11/25/22 09:49 Calcium 9.2 mg/dl (8.6-10.3) 11/25/22 09:49 Phosphorus 4.3 mg/dl (2.5-4.9) 11/25/22 09:49 Magnesium 1.9 mg/dl (1.7-2.4) 11/25/22 09:49 Iron 17 mcg/dl (35-150) L 11/25/22 09:49 Unsaturated IBC 499 mcg/dl (155-355) H 11/25/22 09:49 Transferrin 372 mg/dl (200-360) H 11/25/22 09:49 Ferritin 4.0 ng/ml (8-388) L 11/25/22 09:49 Total Bilirubin 0.3 mg/dl (0.2-1.0) 11/25/22 09:49 AST 13 U/L (13-39) 11/25/22 09:49 ALT 9 U/L (7-52) 11/25/22 09:49 Alkaline Phosphatase 91 U/L (34-104) 11/25/22 09:49 Troponin I High Sens 3.1 pg/ml (0-14) 11/25/22 09:49 Total Protein 6.9 gm/dl (6.0-8.3) 11/25/22 09:49 Albumin 3.6 gm/dl (3.4-5.0) 11/25/22 09:49 Globulin 3.3 gm/dl (2.5-4.0) 11/25/22 09:49 Albumin/Globulin Ratio 1.1 (0.9-2) 11/25/22 09:49 Lipase 18 U/L (11-82) 11/25/22 09:49 SARS-CoV-2, RNA, NAAT NEGATIVE (NEGATIVE) 11/25/22 09:51 Blood Type B Positive 11/25/22 09:50 Antibody Screen NEGATIVE 11/25/22 09:50 Crossmatch See Detail 11/25/22 09:50 Impressions Chest X-Ray 11/25/22 09:38 XR chest 1V portable HISTORY: Chest pain, nonspecific COMPARISON: Chest 06/18/2022. FINDINGS: Slightly rotated study. No pneumothorax. No pleural effusions. Hazy appearance to lung bases is likely due to overlapping soft tissue. Otherwise, no focal lung consolidations to suggest a pneumonia. No evidence for pulmonary edema. The heart remains top normal in size. IMPRESSION: No acute process. ACT 112: Negative or not required by law. Electronically signed by: Smooth Maay M.D. 11/25/2022 10:14 AM Diagnostic Findings CXR:Slightly rotated study. No pneumothorax. No pleural effusions. Hazy appearance to lung bases is likely due to overlapping soft tissue. Otherwise, no focal lung consolidations to suggest a pneumonia. No evidence for pulmonary edema. The heart remains top normal in size. ECG Additional Comments: EKG: Normal sinus rhythm, nonspecific T wave abnormality in inferior leads, QTc 474.
[2022-11-25 12:29] LABS: Reticulocyte % 3.1 % (0.5-2.0); Reticulocytes # 0.07 10^6/uL (0.02-0.10)
[2022-11-25 12:56] LABS: INR 1.1 (0.9-1.1); Prothrombin Time 12.4 Seconds (9.0-12.0)
[2022-11-25] MEDS ORDERED: POTASSIUM CHLORIDE CRTAB 20 MEQ TABCR PO STA (13:29)
[2022-11-25] MEDS ORDERED: tiZANidine HCL 4 MG TABLET PO PRN (14:50)
[2022-11-25] MEDS ORDERED: FUROSEMIDE INJ 20 MG/2 ML VIAL IV ONE (14:50)
[2022-11-25] MEDS ORDERED: hydrOXYzine HCl 25 MG TAB PO PRN (14:50)
[2022-11-25] MEDS ORDERED: POLYETHYLENE (MIRALAX) 17 GM PACK PO PRN (14:50)
--- NOTE | 2022-11-25 14:57 | Emergency Department Note ---
Impression & Plan Symptomatic anemia, SEEMA (iron deficiency anemia), Dyspnea on minimal exertion ED Provider Note NAME: YISEL MCGEE AGE: 57 SEX: F ARRIVES VIA: Ambulance INFORMANT: Patient ED PROVIDER(S): Tony Izquierdo MD CHIEF COMPLAINT: SOB PLAN: Disposition: Admit MEDICAL DECISION MAKING: The patient is a pleasant 57-year-old woman with a past medical history of asthma, paroxysmal atrial 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 on Eliquis, iron deficiency anemia, MAURO, hypertension, morbid obesity, schizoaffective disorder, epilepsy, asthma who presents to the emergency department for evaluation of worsening shortness of breath over the past several days though developing over the past month. She reports using her inhalers without much improvement. She denies any bloody or black stools. She denies any fevers, chills, cough, congestion, GI or symptoms. On arrival the patient is no acute distress, afebrile with stable vital signs. She has moderate pallor. Lungs are clear. Abdomen is benign. EKG without overt acute ischemia. CXR negative for acute cardiopulmonary process. WBC 6.1 within normal limits. H/H 4.7/78.4 in setting of the patient's history of iron deficiency anemia with MCV of 72. Platelets within normal limits. Chemistry without metabolic acidosis. Iron studies demonstrate iron deficiency. LFTs unremarkable. High-sensitivity troponin 3.1, within normal limits. Lipase is not elevated. COVID-19 RNA, ADDISON test was negative. Type and Cross to transfuse 3 units of PRBCs ordered. [facility] who will evaluate the patient for admission. Triage Nursing notes reviewed and agree them. Prior/outside medical records reviewed Vital Signs: reviewed Differential diagnosis: Reactive airway disease, pneumonia, pneumothorax, COPD, CHF, infections, cardiac ischemia, pulmonary embolism, musculoskeletal, gastrointestinal, as well as other pathologies. ER treatment provided: See below. Diagnostics interpreted by me: ECG: NSR, 83 bpm, no ectopy, no overt ST elevation or depression. Cardiac Monitoring: An order for continuous cardiac monitoring was placed and demonstrated NSR, 83 bpm, no ectopy. Laboratory studies: See below Imaging studies: See below Consultation(s): [facility] the patient for [facility]. HPI: The patient is a pleasant 57-year-old woman with a past medical history of asthma, paroxysmal atrial 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 on Eliquis, iron deficiency anemia, MAURO, hypertension, morbid obesity, schizoaffective disorder, epilepsy, asthma who presents to the emergency department for evaluation of worsening shortness of breath over the past several days though developing over the past month. She reports using her inhalers without much improvement. She denies any bloody or black stools. She denies any fevers, chills, cough, congestion, GI or symptoms. ROS: See above HPI for pertinent positives & negatives. A total of 10 systems reviewed and were otherwise negative. VITALS:See Below PHYSICAL EXAMINATION: GENERAL: Awake, alert, fatigued-appearing, in no distress, BMI 52.7 HENT: Normocephalic, atraumatic. Oropharynx with dry mucous membranes and otherwise unremarkable. . EYES: Normal conjunctiva. Sclera non-icteric. NECK: Supple. No nuchal rigidity. FROM. No JVD. RESPIRATORY: Clear to auscultation. CARDIAC: Regular rate, normal rhythm. Extremities warm and well perfused. Pulses equal. ABDOMEN: Soft, non-distended. No tenderness to palpation. No rebound or guardin g. No masses. RECTAL: Deferred. MUSCULOSKELETAL: Chest examination reveals no tenderness. The back is symmetrical on inspection without obvious abnormality. There is no CVA tenderness to palpation. No joint edema. LOWER EXTREMITIES: Calves are equal size bilaterally and non-tender. 1+ chronic BLE edema. No discoloration. NEURO: Normal sensorium. No sensory or motor deficits noted. SKIN: Moderate pallor. No rash or jaundice noted. ED COURSE: Critical Care: I have personally spent greater than 35 minutes of critical care time in the direct management of this patient. This includes bedside care, interpretation of diagnostic studies, and testing, discussion with consultants, patient, and family members, and other required patient management activities. This 35 minutes is in excess of all separately billable procedures. Tony Izquierdo MD Past Med/Surg History Medical History Admitted to intensive care unit Anxiety and depression Asthma rare res inh use Bipolar 1 disorder Chronic back pain Degenerative disc disease DVT prophylaxis Dyslipidemia Dyspnea Encounter for pre-operative examination Epilepsy hx of, last one in Fibromyalgia GERD (gastroesophageal reflux disease) Hypertension Hypertensive emergency Hypothyroidism IBS (irritable bowel syndrome) SEEMA (iron deficiency anemia) Lumbar pain with radiation down both legs Lumbar post-laminectomy syndrome Migraine Morbid obesity Nausea and vomiting Osteoarthritis Paroxysmal A-fib follows with Eduardo Gonsalez > Lucie RLS (restless legs syndrome) Sacroiliac joint pain Schizoaffective disorder Seizure SEIZURES X 2 (); CONTROLLED ON LAMICTAL Sleep apnea cpap Spinal stenosis Surgical History History of carpal tunnel release LEFT History of cataract surgery RT/LEFT History of cholecystectomy History of colonoscopy History of endoscopic sinus surgery History of tonsillectomy and adenoidectomy History of tooth extraction ALL UPPER TEETH EXTRACTIONS History of total abdominal hysterectomy and bilateral salpingo-oophorectomy Nausea and vomiting after administration of anesthetic agent S/P foot surgery, left X2 Status post lumbar spine surgery for decompression of spinal cord + RODS Family History Father Family history of diabetes mellitus Coronary heart disease Mother Lung cancer Sister Alive and well Brother Alive and well Other No family history of adverse response to anesthesia Social History Smoking Status: Former smoker Second Hand Exposure: No; Do You Dip or Chew Tobacco: No; Hx Alcohol Use: No Hx Substance Use: No Preferred Language: Italian Communication Ability: Effective Visual Impairment: No Limitations 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: Normal 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 Beliefs That Will Affect Care: None marital status: Current Living Situation: Alone Current Living Situation Comment: [facility] current occupational status: disabled Other Information That Helps Us Care for You: No Feels Safe at Home: Yes Safety Concerns: Feels Safe At This Time Assistive Devices: Cane, Denture - Upper and Glasses Allergies Allergies Allergy/AdvReac Type Severity Reaction Status Date / Time adhesive Allergy Intermediate RASH, ITCHY Verified 06/18/22 21:51 Hydantoins Allergy Intermediate Hives Verified 06/18/22 21:51 ethyl alcohol AdvReac Severe Seizure Verified 06/18/22 21:51 thioridazine AdvReac Severe SEIZURES Verified 06/18/22 21:51 phenytoin AdvReac Intermediate Nausea Verified 06/18/22 21:51 Home Meds Home Medications Medication Instructions Recorded Confirmed apixaban 5 mg tablet (Eliquis) 5 mg PO BID 06/18/22 11/25/22 buspirone 10 mg tablet 10 mg PO TID 06/18/22 11/25/22 carvedilol 25 mg tablet 25 mg PO BID 06/18/22 11/25/22 cholecalciferol (vitamin D3) 50 50 mcg PO DAILY 06/18/22 11/25/22 mcg (2,000 unit) tablet (Vitamin D3) duloxetine 30 mg capsule,delayed 30 mg PO DAILY 06/18/22 11/25/22 release fluticasone furoate 200 1 ea inhalation DAILY 06/18/22 11/25/22 mcg-vilanterol 25 mcg/dose inhalation powder (Breo Ellipta) furosemide 40 mg tablet 40 mg PO BID 06/18/22 11/25/22 gabapentin 300 mg capsule 300 mg PO HS 06/18/22 11/25/22 hydralazine 50 mg tablet 50 mg PO TID 06/18/22 11/25/22 hydrochlorothiazide 12.5 mg capsule 12.5 mg PO DAILY 06/18/22 11/25/22 hydroxychloroquine 200 mg tablet 400 mg PO HS 06/18/22 11/25/22 hydroxyzine HCl 25 mg tablet 25 mg PO DAILY PRN Anxiety 06/18/22 11/25/22 iron,carbonyl 65 mg-vitamin C 125 1 tab PO BID 06/18/22 11/25/22 mg tablet,delayed release (Vitron-C) lamotrigine 200 mg tablet 200 mg PO BID 06/18/22 11/25/22 levocetirizine 5 mg tablet 2.5 mg PO PM 06/18/22 11/25/22 losartan 100 mg tablet 100 mg PO DAILY 06/18/22 11/25/22 melatonin 3 mg tablet 3 mg PO HS 06/18/22 11/25/22 mirtazapine 30 mg tablet 30 mg PO HS 06/18/22 11/25/22 montelukast 10 mg tablet 10 mg PO HS 06/18/22 11/25/22 paliperidone 9 mg tablet,extended 9 mg PO HS 06/18/22 11/25/22 release 24 hr perphenazine 8 mg tablet 8 mg PO DAILY 06/18/22 11/25/22 potassium chloride 10 mEq 10 meq PO DAILY 06/18/22 11/25/22 tablet,extended release riboflavin (vitamin B2) 100 mg 400 mg PO DAILY 06/18/22 11/25/22 tablet (Vitamin B-2) ropinirole 1 mg tablet 1 mg PO HS 06/18/22 11/25/22 rosuvastatin 5 mg tablet 5 mg PO HS 06/18/22 11/25/22 sertraline 100 mg tablet 125 mg PO DAILY 06/18/22 11/25/22 sotalol 80 mg tablet 40 mg PO BID 06/18/22 11/25/22 tiotropium bromide 2.5 1 puff inhalation DAILY 06/18/22 11/25/22 mcg/actuation mist for inhalation (Spiriva Respimat) tizanidine 4 mg tablet 4 mg PO Q8H PRN muscle spasms 06/18/22 11/25/22 Previous Rx's Medication Instructions Recorded levothyroxine 150 mcg tablet 300 mcg PO DAILYBB #60 tabs 06/22/22 (Synthroid) omeprazole 40 mg capsule,delayed 40 mg PO BID #60 caps 06/22/22 release Results & Data (ED) Vital Signs Vital Signs - 24 hr 11/25/22 09:22 11/25/22 09:22 11/25/22 09:27 Temperature 37.5 C Temperature Source Oral Pulse Rate 81 83 Pulse Rate from SpO2 Sensor Respiratory Rate 24 Blood Pressure 156/66 H Blood Pressure Mean 96 Blood Pressure Position Pulse Oximetry 96 95 Oxygen Delivery Method Room Air Room Air Sepsis Recent Fever Within 48 Hours No Sepsis New/Unexplained Change in Mental Status N/A Sepsis Action Taken by Nursing No Action Required 11/25/22 09:30 11/25/22 10:11 11/25/22 10:30 Temperature Temperature Source Pulse Rate 81 82 77 Pulse Rate from SpO2 Sensor Respiratory Rate 18 24 24 Blood Pressure 130/71 147/80 H 144/83 H Blood Pressure Mean 90 102 103 Blood Pressure Position Pulse Oximetry 96 95 96 Oxygen Delivery Method Room Air Room Air Room Air Sepsis Recent Fever Within 48 Hours Sepsis New/Unexplained Change in Mental Status Sepsis Action Taken by Nursing 11/25/22 11:10 11/25/22 11:20 11/25/22 11:23 Temperature Temperature Source Pulse Rate 78 79 80 Pulse Rate from SpO2 Sensor 78 79 80 Respiratory Rate 21 26 H 24 Blood Pressure Blood Pressure Mean Blood Pressure Position Pulse Oximetry 97 98 97 Oxygen Delivery Method Sepsis Recent Fever Within 48 Hours Sepsis New/Unexplained Change in Mental Status Sepsis Action Taken by Nursing 11/25/22 11:23 11/25/22 11:30 11/25/22 12:39 Temperature 37.1 C Temperature Source Oral Pulse Rate 78 85 Pulse Rate from SpO2 Sensor Respiratory Rate 28 H 24 Blood Pressure 137/67 137/70 173/89 H Blood Pressure Mean 90 92 117 Blood Pressure Position Pulse Oximetry 96 96 Oxygen Delivery Method Room Air Sepsis Recent Fever Within 48 Hours Sepsis New/Unexplained Change in Mental Status Sepsis Action Taken by Nursing 11/25/22 12:55 11/25/22 13:10 Temperature 36.9 C 36.5 C Temperature Source Oral Oral Pulse Rate 82 84 Pulse Rate from SpO2 Sensor Respiratory Rate 18 18 Blood Pressure 171/91 H 169/88 H Blood Pressure Mean 117 115 Blood Pressure Position Lying Pulse Oximetry 95 98 Oxygen Delivery Method Sepsis Recent Fever Within 48 Hours Sepsis New/Unexplained Change in Mental Status Sepsis Action Taken by Nursing Laboratory Data Attestation: I reviewed the patient's lab results. 11/25/22 09:49 11/25/22 09:49 Lab Results 11/25/22 11/25/22 11/25/22 Range/Units 09:49 09:49 09:49 WBC 6.19 (4.8-10.8) K/ul RBC 2.39 L (4.20-5.40) M/uL Hgb 4.7 L* (12.0-16.0) g/dl Hct 17.4 L* (37.0-47.0) % MCV 72.8 L (80.0-100.0) fL MCH 19.7 L (25.0-34.0) pg MCHC 27.0 L (32.0-36.0) g/dL RDW Std Deviation 48.6 H (36.4-46.3) fL RDW Coeff of Lor 18.4 H (11.5-14.5) % Plt Count 197 (130-400) K/uL MPV 10.9 (9.4-12.4) fL Immature Gran % (Auto) 0.3 % Neut % (Auto) 75.5 % Lymph % (Auto) 12.4 % [place] % (Auto) 11.3 % Eos % (Auto) 0.0 % Baso % (Auto) 0.5 % Reticulocyte % (Auto) 3.1 H (0.5-2.0) % Neut # (Auto) 4.67 (1.40-6.50) K/uL Lymph # (Auto) 0.77 L (1.2-3.4) K/uL [place] # (Auto) 0.70 H (0.11-0.59) K/uL Eos # (Auto) 0.00 (0-0.50) K/uL Baso # (Auto) 0.03 (0-0.2) K/uL Reticulocyte # 0.07 (0.02-0.10) 10^6/uL Immature Gran # (Auto) 0.02 (0.01-0.20) K/uL Absolute Nucleated RBC 0.02 (0-0.12) K/uL Nucleated RBC % (auto) 0.3 % Polychromasia 1+ Hypochromasia Present Microcytosis Present Tear Drop Cells 1+ PT (9.0-12.0) Seconds INR (0.9-1.1) Sodium 140 (136-145) mmol/L Potassium 3.4 L (3.5-5.1) mmol/L Chloride 99 (98-107) mmol/L Carbon Dioxide 33 H (21-32) mmol/L Anion Gap 8 (3-11) BUN 19 (6-23) mg/dl Creatinine 0.91 (0.6-1.2) mg/dl Est Cr Clr Drug Dosing 103.0 ml/min Est GFR ( Amer) 80.0 ml/min Est GFR (Non-Af Amer) 69.1 ml/min BUN/Creatinine Ratio 20.9 H (10-20) Glucose 90 (70-99(Fasting)) mg/dl Calcium 9.2 (8.6-10.3) mg/dl Phosphorus 4.3 (2.5-4.9) mg/dl Magnesium 1.9 (1.7-2.4) mg/dl Iron 17 L (35-150) mcg/dl Unsaturated IBC 499 H (155-355) mcg/dl Transferrin 372 H (200-360) mg/dl Ferritin 4.0 L (8-388) ng/ml Total Bilirubin 0.3 (0.2-1.0) mg/dl AST 13 (13-39) U/L ALT 9 (7-52) U/L Alkaline Phosphatase 91 (34-104) U/L Troponin I High Sens 3.1 (0-14) pg/ml Total Protein 6.9 (6.0-8.3) gm/dl Albumin 3.6 (3.4-5.0) gm/dl Globulin 3.3 (2.5-4.0) gm/dl Albumin/Globulin Ratio 1.1 (0.9-2) Lipase 18 (11-82) U/L SARS-CoV-2, RNA, NAAT (NEGATIVE) Blood Type Antibody Screen Crossmatch 11/25/22 11/25/22 11/25/22 Range/Units 09:49 09:50 09:51 WBC (4.8-10.8) K/ul RBC (4.20-5.40) M/uL Hgb (12.0-16.0) g/dl Hct (37.0-47.0) % MCV (80.0-100.0) fL MCH (25.0-34.0) pg MCHC (32.0-36.0) g/dL RDW Std Deviation (36.4-46.3) fL RDW Coeff of Lor (11.5-14.5) % Plt Count (130-400) K/uL MPV (9.4-12.4) fL Immature Gran % (Auto) % Neut % (Auto) % Lymph % (Auto) % [place] % (Auto) % Eos % (Auto) % Baso % (Auto) % Reticulocyte % (Auto) (0.5-2.0) % Neut # (Auto) (1.40-6.50) K/uL Lymph # (Auto) (1.2-3.4) K/uL [place] # (Auto) (0.11-0.59) K/uL Eos # (Auto) (0-0.50) K/uL Baso # (Auto) (0-0.2) K/uL Reticulocyte # (0.02-0.10) 10^6/uL Immature Gran # (Auto) (0.01-0.20) K/uL Absolute Nucleated RBC (0-0.12) K/uL Nucleated RBC % (auto) % Polychromasia Hypochromasia Microcytosis Tear Drop Cells PT 12.4 H (9.0-12.0) Seconds INR 1.1 (0.9-1.1) Sodium (136-145) mmol/L Potassium (3.5-5.1) mmol/L Chloride (98-107) mmol/L Carbon Dioxide (21-32) mmol/L Anion Gap (3-11) BUN (6-23) mg/dl Creatinine (0.6-1.2) mg/dl Est Cr Clr Drug Dosing ml/min Est GFR ( Amer) ml/min Est GFR (Non-Af Amer) ml/min BUN/Creatinine Ratio (10-20) Glucose (70-99(Fasting)) mg/dl Calcium (8.6-10.3) mg/dl Phosphorus (2.5-4.9) mg/dl Magnesium (1.7-2.4) mg/dl Iron (35-150) mcg/dl Unsaturated IBC (155-355) mcg/dl Transferrin (200-360) mg/dl Ferritin (8-388) ng/ml Total Bilirubin (0.2-1.0) mg/dl AST (13-39) U/L ALT (7-52) U/L Alkaline Phosphatase (34-104) U/L Troponin I High Sens (0-14) pg/ml Total Protein (6.0-8.3) gm/dl Albumin (3.4-5.0) gm/dl Globulin (2.5-4.0) gm/dl Albumin/Globulin Ratio (0.9-2) Lipase (11-82) U/L SARS-CoV-2, RNA, NAAT NEGATIVE (NEGATIVE) Blood Type B Positive Antibody Screen NEGATIVE Crossmatch See Detail Administered Medications Acetaminophen (Acetaminophen 325 Mg Tab) 650 mg PO Q4H PRN PRN Reason: Pain or Fever Stop: 12/25/22 14:49 Last Admin: 11/25/22 20:52 Dose: 650 mg Documented By: GAYLE Buspirone HCl (Buspirone 5 Mg Tab) 10 mg PO TID [facility] Stop: 12/25/22 15:14 Last Admin: 11/25/22 20:46 Dose: 10 mg Documented By: Admin: 11/25/22 15:38 Dose: 10 mg Documented By: MIC Carvedilol (Carvedilol 25 Mg Tab) 25 mg PO BIDM [facility] Stop: 12/25/22 16:59 Last Admin: 11/25/22 16:39 Dose: 25 mg Documented By: MIC Cetirizine HCl (Cetirizine Hcl 10 Mg Tablet) 5 mg PO PM RAVI Stop: 12/25/22 20:59 Last Admin: 11/25/22 20:48 Dose: 5 mg Documented By: GAYLE Furosemide (Furosemide 40 Mg Tab) 40 mg PO BID17 RAVI Stop: 12/25/22 16:59 Last Admin: 11/25/22 16:39 Dose: 40 mg Documented By: MIC Gabapentin (Gabapentin 300 Mg Cap) 300 mg PO HS RAVI Stop: 12/25/22 20:59 Last Admin: 11/25/22 20:46 Dose: 300 mg Documented By: GAYLE Hydralazine HCl (Hydralazine Tab 50 Mg Tab) 50 mg PO TID RAVI Stop: 12/25/22 14:49 Last Admin: 11/25/22 20:46 Dose: 50 mg Documented By: Admin: 11/25/22 15:42 Dose: 50 mg Documented By: MIC Hydroxychloroquine Sulfate (Hydroxychloroquine Sulfate 200 Mg Tab) 400 mg PO HS RAVI Stop: 12/25/22 20:59 Last Admin: 11/25/22 20:48 Dose: 400 mg Documented By: GAYLE Pantoprazole Sodium 40 mg/ (Syringe) 10 mls @ 5 mls/min IV BID RAVI Stop: 12/25/22 14:49 Last Admin: 11/25/22 20:47 Dose: 5 mls/min Documented By: Admin: 11/25/22 15:37 Dose: 5 mls/min Documented By: MIC Lamotrigine (Lamotrigine 100 Mg Tab) 200 mg PO BID RAVI Stop: 12/25/22 20:59 Last Admin: 11/25/22 20:47 Dose: 200 mg Documented By: ASM Melatonin (Melatonin 3 Mg Tab) 3 mg PO HS RAVI Stop: 12/25/22 20:59 Last Admin: 11/25/22 20:45 Dose: 3 mg Documented By: GAYLE Mirtazapine (Mirtazapine Tab 15 Mg Tab) 30 mg PO HS RAVI Stop: 12/25/22 20:59 Last Admin: 11/25/22 20:45 Dose: 30 mg Documented By: GAYLE Montelukast Sodium (Montelukast Sodium 10 Mg Tablet) 10 mg PO HS RAVI Stop: 12/25/22 20:59 Last Admin: 11/25/22 20:45 Dose: 10 mg Documented By: ASM Paliperidone (Paliperidone 3 Mg Tabcr) 9 mg PO HS RAVI Stop: 12/25/22 20:59 Last Admin: 11/25/22 20:48 Dose: 9 mg Documented By: ASM Ropinirole HCl (Ropinirole Hcl 1 Mg Tablet) 1 mg PO HS RAVI Stop: 12/25/22 20:59 Last Admin: 11/25/22 20:46 Dose: 1 mg Documented By: ASM Rosuvastatin Calcium (Rosuvastatin Calcium 5 Mg Tab) 5 mg PO HS RAVI Stop: 12/25/22 20:59 Last Admin: 11/25/22 20:45 Dose: 5 mg Documented By: GAYLE Sotalol HCl (Sotalol Hcl 80 Mg Tab) 40 mg PO BID RAVI Stop: 12/25/22 20:59 Last Admin: 11/25/22 20:47 Dose: 40 mg Documented By: GAYLE Discontinued Medications Furosemide (Furosemide Inj 20 Mg/2 Ml Vial) 10 mg IV ONE ONE Stop: 11/25/22 14:51 Last Admin: 11/25/22 15:37 Dose: 10 mg Documented By: MIC Sodium Chloride (Nss) 500 mls @ 999 mls/hr IV .Q31M ONE Stop: 11/25/22 10:08 Last Infusion: 11/25/22 10:32 Dose: 0 mls/hr Documented By: [facility] Admin: 11/25/22 09:54 Dose: 999 mls/hr Documented By: [facility] Potassium Chloride (Potassium Chloride Crtab 20 Meq Tabcr) 40 meq PO NOW STA Stop: 11/25/22 13:30 Last Admin: 11/25/22 13:41 Dose: 40 meq Documented By: [facility] Imaging Data Radiologist's Impression: Chest X-Ray 11/25/22 09:38 XR chest 1V portable HISTORY: Chest pain, nonspecific COMPARISON: Chest 06/18/2022. FINDINGS: Slightly rotated study. No pneumothorax. No pleural effusions. Hazy appearance to lung bases is likely due to overlapping soft tissue. Otherwise, no focal lung consolidations to suggest a pneumonia. No evidence for pulmonary edema. The heart remains top normal in size. IMPRESSION: No acute process. ACT 112: Negative or not required by law. Electronically signed by: Smooth Maya M.D. 11/25/2022 10:14 AM Discharge Plan Visit Data Chief Complaint: Shortness of Breath/Dyspnea ED Provider: Tony Izquierdo Discharge Problem: Symptomatic anemia, SEEMA (iron deficiency anemia), Dyspnea on minimal exertion Patient Disposition: Admitted As Inpatient Discharge Instructions Interventions: ED Discharge Assessment Last Done: 11/25/22 14:04
[2022-11-25] MEDS: PANTOprazole 40 MG in SYRINGE 0 ML IV SCH ×2 (15:37→20:47)
[2022-11-25] MEDS: busPIRone 5 MG TAB PO SCH ×2 (15:38→20:46)
--- NOTE | 2022-11-25 15:41 | Communication Note ---
Date of Service: November 25, 2022 57 year old female w/ history of atrial 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, pulmonary HTN, SEEMA, heart failure, chronic migraine, GERD, epilepsy, dyslipidemia, HTN, MAURO, hypothyr oidism, IBS, depression, bipolar admitted with symptomatic anemia, HGB 4.7. GI asked to evaluate. Per chart review no report of black/bloody stools/emesis. EGD/Colonoscopy November 2021 reviewed. Given no evidence of acute GI bleeding and recent examination in 2021 would medically optimize. Transfuse per primary team. Trend HGB. PO PPI BID. Can hold AC overnight. May keep NPO after midnight until evaluation in the AM. However, no plan for endoscopic evaluation during admission unless evidence of GI blood loss. Can plan for OP EGD/Colon, VCE. Attg add: I interviewed and examined pt, reviewed chart and labs. Pt with symptomatic anemia but no overt GI blood loss. She has stable VS, normal BUN, iron deficiency, microcytic anemia. WIll plan outpt w/u with EGD/cscopy, VCE. Please call us if she develops ssx of overt GI blood loss.
[2022-11-25] MEDS: hydrALAZINE TAB 50 MG TAB PO SCH ×2 (15:42→20:46)
[2022-11-25] MEDS: FUROSEMIDE 40 MG TAB PO SCH (16:39)
[2022-11-25] MEDS: carvediloL 25 MG TAB PO SCH (16:39)
[2022-11-25] MEDS: ROSUVASTATIN CALCIUM 5 MG TAB PO SCH (20:45)
[2022-11-25] MEDS: MONTELUKAST SODIUM 10 MG TABLET PO SCH (20:45)
[2022-11-25] MEDS: MELATONIN 3 MG TAB PO SCH (20:45)
[2022-11-25] MEDS: MIRTAZAPINE TAB 15 MG TAB PO SCH (20:45)
[2022-11-25] MEDS: rOPINIRole HCL 1 MG TABLET PO SCH (20:46)
[2022-11-25] MEDS: GABAPENTIN 300 MG CAP PO SCH (20:46)
[2022-11-25] MEDS: lamoTRIgine 100 MG TAB PO SCH (20:47)
[2022-11-25] MEDS: SOTALOL HCL 80 MG TAB PO SCH (20:47)
[2022-11-25] MEDS: CETIRIZINE HCL 10 MG TABLET PO SCH (20:48)
[2022-11-25] MEDS: PALIPERIDONE 3 MG TABCR PO SCH (20:48)
[2022-11-25] MEDS: HYDROXYCHLOROQUINE SULFATE 200 MG TAB PO SCH (20:48)
[2022-11-25] MEDS: ACETAMINOPHEN 325 MG TAB PO PRN (20:52)
[2022-11-26 02:01] LABS: Hematocrit (blood only) 23.2 % (37.0-47.0)
--- NOTE | 2022-11-26 05:00 | Electrocardiogram Report ---
Test Reason : Blood Pressure : / mmHG Vent. Rate : 083 BPM Atrial Rate : 083 BPM P-R Int : 150 ms QRS Dur : 088 ms QT Int : 404 ms P-R-T Axes : 065 044 047 degrees QTc Int : 474 ms Normal sinus rhythm Normal ECG When compared with ECG of 18-JUN-2022 18:19, Nonspecific T wave abnormality, improved in Inferior leads Nonspecific T wave abnormality has improved in Lateral leads Confirmed by Edi Alvarez ([id number]) on 11/26/2022 4:59:50 AM Referred By: REFERRED SELF Confirmed By:Edi Alvarez
[2022-11-26] MEDS: LEVOTHYROXINE SODIUM 150 MCG TABLET PO SCH (06:20)
[2022-11-26] MEDS: ACETAMINOPHEN 325 MG TAB PO PRN (06:22)
[2022-11-26 06:23] LABS: Hematocrit (blood only) 25.9 % (37.0-47.0); Hemoglobin 7.7 g/dl (12.0-16.0); Mean Corpuscular Hemoglobin 22.7 pg (25.0-34.0); Mean Corpuscular Hgb Conc 29.7 g/dL (32.0-36.0); Mean Corpuscular Volume 76.4 fL (80.0-100.0); Mean Platelet Volume 10.3 fL (9.4-12.4); Nucleated RBC # (auto) 0.03 K/uL (0-0.12); Nucleated RBC % (auto) 0.5 %; Platelet Count 215 K/uL (130-400); RDW Coefficient of Variation 18.6 % (11.5-14.5); Red Blood Count 3.39 M/uL (4.20-5.40); White Blood Count 5.69 K/ul (4.8-10.8)
[2022-11-26 06:50] LABS: BUN Creatinine Ratio 16.9 (10-20); Calcium 9.9 mg/dl (8.6-10.3); Est GFR (African American) 89.5 ml/min; Est GFR (Non-African American) 77.2 ml/min; Magnesium 2.1 mg/dl (1.7-2.4); Potassium 3.6 mmol/L (3.5-5.1)
[2022-11-26] MEDS: hydrALAZINE TAB 50 MG TAB PO SCH ×3 (07:45→20:02)
[2022-11-26] MEDS: PANTOprazole 40 MG in SYRINGE 0 ML IV SCH (07:46)
[2022-11-26] MEDS: SOTALOL HCL 80 MG TAB PO SCH ×2 (07:46→20:01)
[2022-11-26] MEDS: PERPHENAZINE 2 MG TABLET PO SCH (07:49)
[2022-11-26] MEDS: busPIRone 5 MG TAB PO SCH ×3 (07:49→20:04)
[2022-11-26] MEDS: DULoxetine HCL 30 MG CAP PO SCH (07:50)
[2022-11-26] MEDS: SERTRALINE HCL 50 MG TABLET PO SCH (07:51)
[2022-11-26] MEDS: LOSARTAN POTASSIUM 50 MG TAB PO SCH (07:52)
[2022-11-26] MEDS: lamoTRIgine 100 MG TAB PO SCH ×2 (07:53→20:02)
[2022-11-26] MEDS: FUROSEMIDE 40 MG TAB PO SCH ×2 (07:54→17:00)
[2022-11-26] MEDS: UMECLIDINIUM BROMIDE 62.5MCG/BLISTER 7 PUFFS/INHALER INH SCH (07:54)
[2022-11-26] MEDS: FLUTICASONE/VILANTEROL 200/25MCG 14 PUFFS/INHALER INH SCH (07:56)
[2022-11-26] MEDS: carvediloL 25 MG TAB PO SCH ×2 (07:56→17:00)
--- NOTE | 2022-11-26 11:18 | Gastrointestinal Consultation ---
Date of Consultation November 26, 2022 Assessment & Plan (1) SEEMA (iron deficiency anemia): Patient is a 57 years old female who presented with fatigue and dyspnea on exertion, noted to have severe anemia status posttreatment with 3 units PRBC transfusion with good response of her blood count afterwards. She has iron deficiency anemia. Was previously receiving iron transfusion, last dose July 2022. Was on oral iron supplement but anemia was not responding. She is on Eliquis but denies any gross signs of GI bleeding. Had endoscopic work-up within the last year without any obvious source of GI bleeding. - Monitor blood ct and transfuse prn - Monitor for s/s of GI bleeding - Plan for repeat EGD and colonoscopy in outpt setting, then VCE if these tests are negative. - Diet as tolerated - Recommend restarting IV iron while admitted - Recall GI prn over the weekend Supervising Physician Co-Signing Physician Notes I performed a history and physical examination of the patient today, including specifically on physical exam - soft abdomen. I have discussed the patient's management with the advanced practitioner. Please refer to the nurse practitioner's note for the documented findings and plan of care. SEEMA with no overt bleed. Recommend: EGD/colonoscopy and VCE as OP. Recall GI if needed. History of Present Illness Reason for Consultation: Symptomatic anemia Requesting Physician: Dr. Abdirashid De Leon Attending Physician: Dr. Anusha Mcfadden History of Present Illness Patient is a 57 years old female with past medical history including atrial 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 on Eliquis, pulmonary hypertension, diastolic heart failure, migraines, GERD, epilepsy, dyslipidemia, hypertension, MAURO, hypothyroidism, IBS, depression, bipolar, RLS, antiphospholipid syndrome, iron deficiency anemia who presented yesterday with complaints of dyspnea on exertion and fatigue with minimal activity which have gradually worsened within the last 2 months. Upon evaluation she was found to be severely anemic with hemoglobin of 4, status post 3 units PRBC transfusion yesterday with appropriate response in her blood count. H&H today 7.7/25.9. Platelet count is normal. Iron levels as well as ferritin is low. B12, folic acid normal. Chest x-ray without acute processes. She denies any symptoms of fevers, chills, currently also no chest pain, no shortness of breath but in sitting position. She denies any abdominal pain, nausea or vomiting. Her last bowel movements was yesterday, she notes it to be brown in color and formed. She denies any symptoms of rectal bleeding, or dark tarry stools. Besides Eliquis she denies regular use of NSAIDs but took Advil 5 days ago for headaches and arthritis. She had previous work-up for her iron deficiency anemia including EGD and colonoscopy within the past year without any obvious source of GI bleeding noted. She follows with [facility] hematology clinic, was receiving iron infusion, last dose was back in July. Allergies Allergy/AdvReac Type Severity Reaction Status Date / Time adhesive Allergy Intermediate RASH, ITCHY Verified 06/18/22 21:51 Hydantoins Allergy Intermediate Hives Verified 06/18/22 21:51 ethyl alcohol AdvReac Severe Seizure Verified 06/18/22 21:51 thioridazine AdvReac Severe SEIZURES Verified 06/18/22 21:51 phenytoin AdvReac Intermediate Nausea Verified 06/18/22 21:51 Home Medications Medication Instructions Recorded Confirmed Type apixaban 5 mg tablet (Eliquis) 5 mg PO BID 06/18/22 11/25/22 History buspirone 10 mg tablet 10 mg PO TID 06/18/22 11/25/22 History carvedilol 25 mg tablet 25 mg PO BID 06/18/22 11/25/22 History cholecalciferol (vitamin D3) 50 50 mcg PO DAILY 06/18/22 11/25/22 History mcg (2,000 unit) tablet (Vitamin D3) duloxetine 30 mg capsule,delayed 30 mg PO DAILY 06/18/22 11/25/22 History release fluticasone furoate 200 1 ea inhalation DAILY 06/18/22 11/25/22 History mcg-vilanterol 25 mcg/dose inhalation powder (Breo Ellipta) furosemide 40 mg tablet 40 mg PO BID 06/18/22 11/25/22 History gabapentin 300 mg capsule 300 mg PO HS 06/18/22 11/25/22 History hydralazine 50 mg tablet 50 mg PO TID 06/18/22 11/25/22 History hydrochlorothiazide 12.5 mg capsule 12.5 mg PO DAILY 06/18/22 11/25/22 History hydroxychloroquine 200 mg tablet 400 mg PO HS 06/18/22 11/25/22 History hydroxyzine HCl 25 mg tablet 25 mg PO DAILY PRN Anxiety 06/18/22 11/25/22 History iron,carbonyl 65 mg-vitamin C 125 1 tab PO BID 06/18/22 11/25/22 History mg tablet,delayed release (Vitron-C) lamotrigine 200 mg tablet 200 mg PO BID 06/18/22 11/25/22 History levocetirizine 5 mg tablet 2.5 mg PO PM 06/18/22 11/25/22 History losartan 100 mg tablet 100 mg PO DAILY 06/18/22 11/25/22 History melatonin 3 mg tablet 3 mg PO HS 06/18/22 11/25/22 History mirtazapine 30 mg tablet 30 mg PO HS 06/18/22 11/25/22 History montelukast 10 mg tablet 10 mg PO HS 06/18/22 11/25/22 History paliperidone 9 mg tablet,extended 9 mg PO HS 06/18/22 11/25/22 History release 24 hr perphenazine 8 mg tablet 8 mg PO DAILY 06/18/22 11/25/22 History potassium chloride 10 mEq 10 meq PO DAILY 06/18/22 11/25/22 History tablet,extended release riboflavin (vitamin B2) 100 mg 400 mg PO DAILY 06/18/22 11/25/22 History tablet (Vitamin B-2) ropinirole 1 mg tablet 1 mg PO HS 06/18/22 11/25/22 History rosuvastatin 5 mg tablet 5 mg PO HS 06/18/22 11/25/22 History sertraline 100 mg tablet 125 mg PO DAILY 06/18/22 11/25/22 History sotalol 80 mg tablet 40 mg PO BID 06/18/22 11/25/22 History tiotropium bromide 2.5 1 puff inhalation DAILY 06/18/22 11/25/22 History mcg/actuation mist for inhalation (Spiriva Respimat) tizanidine 4 mg tablet 4 mg PO Q8H PRN muscle spasms 06/18/22 11/25/22 History levothyroxine 150 mcg tablet 300 mcg PO DAILYBB #60 tabs 06/22/22 11/25/22 Rx (Synthroid) omeprazole 40 mg capsule,delayed 40 mg PO BID #60 caps 06/22/22 11/25/22 Rx release Patient History Medical History Admitted to intensive care unit Anxiety and depression Asthma rare res inh use Bipolar 1 disorder Chronic back pain Degenerative disc disease DVT prophylaxis Dyslipidemia Dyspnea Encounter for pre-operative examination Epilepsy hx of, last one in Fibromyalgia GERD (gastroesophageal reflux disease) Hypertension Hypertensive emergency Hypothyroidism IBS (irritable bowel syndrome) SEEMA (iron deficiency anemia) Lumbar pain with radiation down both legs Lumbar post-laminectomy syndrome Migraine Morbid obesity Nausea and vomiting Osteoarthritis Paroxysmal A-fib follows with Eduardo Wallace > [facility]pri[facility]is RLS (restless legs syndrome) Sacroiliac joint pain Schizoaffective disorder Seizure SEIZURES X 2 (); CONTROLLED ON LAMICTAL Sleep apnea cpap Spinal stenosis Surgical History History of carpal tunnel release LEFT History of cataract surgery RT/LEFT History of cholecystectomy History of colonoscopy History of endoscopic sinus surgery History of tonsillectomy and adenoidectomy History of tooth extraction ALL UPPER TEETH EXTRACTIONS History of total abdominal hysterectomy and bilateral salpingo-oophorectomy Nausea and vomiting after administration of anesthetic agent S/P foot surgery, left X2 Status post lumbar spine surgery for decompression of spinal cord + RODS Family History Father Family history of diabetes mellitus Coronary heart disease Mother Lung cancer Sister Alive and well Brother Alive and well Other No family history of adverse response to anesthesia Social History Smoking Status: Former smoker Second Hand Exposure: No; Do You Dip or Chew Tobacco: No; Hx Alcohol Use: No Hx Substance Use: No Preferred Language: Vietnamese Communication Ability: Effective Visual Impairment: No Limitations 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: Normal Business Asst Required: No Beliefs That Will Affect Care: None marital status: Current Living Situation: Alone Current Living Situation Comment: Retirement current occupational status: disabled Other Information That Helps Us Care for You: No Feels Safe at Home: Yes Safety Concerns: Feels Safe At This Time Assistive Devices: Cane, Denture - Upper and Glasses Review of Systems Review of Systems: All systems reviewed & are unremarkable except as noted in HPI & below Physical Exam Constitutional: WD/WN, vitals as above well groomed, cooperative and comfortable Eyes: PERRL, conjunctivae normal, anicteric sclerae ENMT: external ear and nose normal, oropharynx normal Respiratory: normal respiratory effort, lungs clear to auscultation Cardiovascular: RRR, no murmur, no edema Gastrointestinal (Abdomen): normal bowel sounds, soft, nontender, no hepatosplenomegaly Skin: no rashes, warm and dry no jaundice Neurologic: Motor/Sensory: no asterixis Psychiatric: A+Ox3, euthymic affect Lymphatic: no lymphedema Results & Data Vital Signs (Past 12 Hours) Vital Signs Temp Pulse Pulse Resp BP BP Pulse Ox 11/26/22 07:29 36.8 C 70 18 173/83 H 100 11/26/22 04:37 36.4 C L 83 20 132/72 93 11/25/22 23:50 36.7 C 77 18 129/73 95 O2 Del Method 11/26/22 07:29 Room Air 11/26/22 04:37 Room Air 11/25/22 23:50
[2022-11-26] MEDS: ALPRAZolam 0.25 MG TABLET PO PRN ×2 (12:57→20:00)
--- NOTE | 2022-11-26 13:55 | Electrocardiogram Report ---
Test Reason : Blood Pressure : / mmHG Vent. Rate : 069 BPM Atrial Rate : 069 BPM P-R Int : 146 ms QRS Dur : 086 ms QT Int : 430 ms P-R-T Axes : 051 033 040 degrees QTc Int : 460 ms Normal sinus rhythm Low voltage QRS Otherwise Normal ECG When compared with ECG of 25-NOV-2022 09:25, No significant change was found Confirmed by Rusty Haynes ([id number]) on 11/26/2022 1:54:42 PM Referred By: REFERRED SELF Confirmed By:Rusty Haynes
--- NOTE | 2022-11-26 14:05 | Hospitalist Progress Note ---
Date of Service November 26, 2022 Assessment & Plan (1) Symptomatic anemia: Plan: Symptomatic Anemia Microcytic Anemia H/O Iron deficiency Anemia H/O GERD, Antral Gastritis History of multiple admission with symptomatic anemia. Follows up with hematology as outpatient for IV iron Patient has hysterectomy. On Eliquis due to history of atrial flutter. She had ablation for the same in the past. Admitting EKG reviewed; normal sinus rhythm. Labs reviewed; hemoglobin on admission 4.7; status post 2 unit transfusion. Hemoglobin 7 today. Discussed with GI; recommend outpatient endoscopy, colonoscopy and visual capsule endoscopy. On Protonix twice daily. Monitor H&H daily. Patient has multiple admission with iron deficiency anemia. The most likely cause is occult GI bleeding. Patient has been on Eliquis for several years for atrial flutter/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. She had undergone ablation in the past. She is currently maintaining sinus rhythm. Discussed with patient regarding risks and benefits of being on anticoagulation. Follow-up appointment made with cardiology to discuss further. Eliquis to be kept on hold till she has discussion with cardiology at outpatient to whether to resume it in long-term or not. Hypokalemia Replete electrolytes as needed Monitor Paroxysmal atrial 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 Continue carvedilol, sotalol Eliquis on hold due to significant anemia SCDs for now while Eliquis on hold Currently in sinus Has appointment with cardiology on 11/30/2022 to discuss regarding benefit and risks of going back on anticoagulation. Schizoaffective disorder Bipolar disorder Depression Restless leg syndrome Continue home medications Hypertension Continue home medications Chronic diastolic heart failure No signs of decompensation Continue home diuretics Monitor volume status Epilepsy Continue home medications Obstructive sleep apnea On BiPAP at bedtime Hypothyroidism Continue levothyroxine DVT Px: SCDs for now Code Status Full Code Currently hospitalized due to severe symptomatic anemia. Will obtain CBC tomorrow a.m. and monitor hemoglobin. If is stable, discharged home and follow- up with cardiology as outpatient. Admission and Anticipated Discharge Date Admission Date: November 25, 2022 Subjective Patient seen and examined at bedside. She reports that he is feeling much better. Review of Systems Review of Systems: All systems reviewed & are unremarkable except as noted in Subjective Physical Exam Physical Exam: Constitutional: WD/WN, vitals as above, NAD, sitting up in bed, pleasant, conversing easily Respiratory: normal respiratory effort, lungs clear to auscultation, no wheeze, rales, rhonchi. Normal insp/exp effort, no accessory muscle use Cardiovascular: RRR, no murmur, no edema Vessels: no JVD or carotid bruit Chest: normal inspection of chest Abdomen: normal bowel sounds, soft, nontender, no hepatosplenomegaly Musculoskeletal: no cyanosis or clubbing, extremities motor strength 5/5 Skin: no rashes, warm and dry normal turgor Neurologic: PERRL, EOMI, accommodation nl, no face palsy, no dysarthria CN's II- XI intact bilaterally and moves all extremities Psychiatric: A+Ox3, euthymic affect Lymphatic: no cervical or axillary lymphadenopathy : deferred Results & Data Results & Data Vital Signs (Past 12 Hours) Vital Signs Temp Pulse Resp BP Pulse Ox O2 Del Method 11/26/22 12:48 36.4 C L 77 18 153/80 H 100 Room Air 11/26/22 07:29 36.8 C 70 18 173/83 H 100 Room Air 11/26/22 04:37 36.4 C L 83 20 132/72 93 Room Air Laboratory Results Laboratory Results WBC 5.69 K/ul (4.8-10.8) 11/26/22 05:26 RBC 3.39 M/uL (4.20-5.40) L 11/26/22 05:26 Hgb 7.7 g/dl (12.0-16.0) L 11/26/22 05:26 Hct 25.9 % (37.0-47.0) L 11/26/22 05:26 MCV 76.4 fL (80.0-100.0) L 11/26/22 05:26 MCH 22.7 pg (25.0-34.0) L 11/26/22 05:26 MCHC 29.7 g/dL (32.0-36.0) L 11/26/22 05:26 RDW Std Deviation 51.0 fL (36.4-46.3) H 11/26/22 05:26 RDW Coeff of Lor 18.6 % (11.5-14.5) H 11/26/22 05:26 Plt Count 215 K/uL (130-400) 11/26/22 05:26 MPV 10.3 fL (9.4-12.4) 11/26/22 05:26 Immature Gran % (Auto) 0.3 % 11/25/22 09:49 Neut % (Auto) 75.5 % 11/25/22 09:49 Lymph % (Auto) 12.4 % 11/25/22 09:49 [place] % (Auto) 11.3 % 11/25/22 09:49 Eos % (Auto) 0.0 % 11/25/22 09:49 Baso % (Auto) 0.5 % 11/25/22 09:49 Reticulocyte % (Auto) 3.1 % (0.5-2.0) H 11/25/22 09:49 Neut # (Auto) 4.67 K/uL (1.40-6.50) 11/25/22 09:49 Lymph # (Auto) 0.77 K/uL (1.2-3.4) L 11/25/22 09:49 [place] # (Auto) 0.70 K/uL (0.11-0.59) H 11/25/22 09:49 Eos # (Auto) 0.00 K/uL (0-0.50) 11/25/22 09:49 Baso # (Auto) 0.03 K/uL (0-0.2) 11/25/22 09:49 Reticulocyte # 0.07 10^6/uL (0.02-0.10) 11/25/22 09:49 Immature Gran # (Auto) 0.02 K/uL (0.01-0.20) 11/25/22 09:49 Absolute Nucleated RBC 0.03 K/uL (0-0.12) 11/26/22 05:26 Nucleated RBC % (auto) 0.5 % 11/26/22 05:26 Polychromasia 1+ 11/25/22 09:49 Hypochromasia Present 11/25/22 09:49 Microcytosis Present 11/25/22 09:49 Tear Drop Cells 1+ 11/25/22 09:49 PT 12.4 Seconds (9.0-12.0) H 11/25/22 09:49 INR 1.1 (0.9-1.1) 11/25/22 09:49 Sodium 141 mmol/L (136-145) 11/26/22 05:26 Potassium 3.6 mmol/L (3.5-5.1) 11/26/22 05:26 Chloride 100 mmol/L (98-107) 11/26/22 05:26 Carbon Dioxide 34 mmol/L (21-32) H 11/26/22 05:26 Anion Gap 7 (3-11) 11/26/22 05:26 BUN 14 mg/dl (6-23) 11/26/22 05:26 Creatinine 0.83 mg/dl (0.6-1.2) 11/26/22 05:26 Est Cr Clr Drug Dosing 113.0 ml/min 11/26/22 05:26 Est GFR ( Amer) 89.5 ml/min 11/26/22 05:26 Est GFR (Non-Af Amer) 77.2 ml/min 11/26/22 05:26 BUN/Creatinine Ratio 16.9 (10-20) 11/26/22 05:26 Glucose 98 mg/dl (70-99(Fasting)) 11/26/22 05:26 Calcium 9.9 mg/dl (8.6-10.3) 11/26/22 05:26 Phosphorus 4.3 mg/dl (2.5-4.9) 11/25/22 09:49 Magnesium 2.1 mg/dl (1.7-2.4) 11/26/22 05:26 Iron 17 mcg/dl (35-150) L 11/25/22 09:49 Unsaturated IBC 499 mcg/dl (155-355) H 11/25/22 09:49 Transferrin 372 mg/dl (200-360) H 11/25/22 09:49 Ferritin 4.0 ng/ml (8-388) L 11/25/22 09:49 Total Bilirubin 0.3 mg/dl (0.2-1.0) 11/25/22 09:49 AST 13 U/L (13-39) 11/25/22 09:49 ALT 9 U/L (7-52) 11/25/22 09:49 Alkaline Phosphatase 91 U/L (34-104) 11/25/22 09:49 Troponin I High Sens 3.1 pg/ml (0-14) 11/25/22 09:49 Total Protein 6.9 gm/dl (6.0-8.3) 11/25/22 09:49 Albumin 3.6 gm/dl (3.4-5.0) 11/25/22 09:49 Globulin 3.3 gm/dl (2.5-4.0) 11/25/22 09:49 Albumin/Globulin Ratio 1.1 (0.9-2) 11/25/22 09:49 Lipase 18 U/L (11-82) 11/25/22 09:49 Vitamin B12 431 pg/ml (180-914) 11/26/22 05:26 Folate 15.00 ng/ml (>5.38) 11/26/22 05:26 SARS-CoV-2, RNA, NAAT NEGATIVE (NEGATIVE) 11/25/22 09:51 Blood Type B Positive 11/25/22 09:50 Antibody Screen NEGATIVE 11/25/22 09:50 Crossmatch See Detail 11/25/22 09:50 Impressions Chest X-Ray 11/25/22 09:38 XR chest 1V portable HISTORY: Chest pain, nonspecific COMPARISON: Chest 06/18/2022. FINDINGS: Slightly rotated study. No pneumothorax. No pleural effusions. Hazy appearance to lung bases is likely due to overlapping soft tissue. Otherwise, no focal lung consolidations to suggest a pneumonia. No evidence for pulmonary edema. The heart remains top normal in size. IMPRESSION: No acute process. ACT 112: Negative or not required by law. Electronically signed by: Smooth Maya M.D. 11/25/2022 10:14 AM
[2022-11-26] MEDS: GABAPENTIN 300 MG CAP PO SCH (20:00)
[2022-11-26] MEDS: MIRTAZAPINE TAB 15 MG TAB PO SCH (20:01)
[2022-11-26] MEDS: MONTELUKAST SODIUM 10 MG TABLET PO SCH (20:01)
[2022-11-26] MEDS: rOPINIRole HCL 1 MG TABLET PO SCH (20:01)
[2022-11-26] MEDS: ROSUVASTATIN CALCIUM 5 MG TAB PO SCH (20:02)
[2022-11-26] MEDS: PALIPERIDONE 3 MG TABCR PO SCH (20:03)
[2022-11-26] MEDS: CETIRIZINE HCL 10 MG TABLET PO SCH (20:03)
[2022-11-26] MEDS: HYDROXYCHLOROQUINE SULFATE 200 MG TAB PO SCH (20:03)
[2022-11-26] MEDS: PANTOprazole 40 MG TAB PO SCH (20:04)
[2022-11-26] MEDS: MELATONIN 3 MG TAB PO SCH (20:04)
[2022-11-27] MEDS: LEVOTHYROXINE SODIUM 150 MCG TABLET PO SCH (05:57)
[2022-11-27 06:30] LABS: Basophils # (auto) 0.06 K/uL (0-0.2); Basophils % (auto) 0.9 %; Hematocrit (blood only) 24.5 % (37.0-47.0); Hemoglobin 7.2 g/dl (12.0-16.0); Immature Granulocytes # (auto) 0.02 K/uL (0.01-0.20); Immature Granulocytes % (auto) 0.3 %; Lymphocytes # (auto) 0.65 K/uL (1.2-3.4); Lymphocytes % (auto) 9.4 %; Mean Corpuscular Hemoglobin 22.3 pg (25.0-34.0); Mean Corpuscular Hgb Conc 29.4 g/dL (32.0-36.0); Mean Corpuscular Volume 75.9 fL (80.0-100.0); Monocytes # (auto) 0.85 K/uL (0.11-0.59); Monocytes % (auto) 12.3 %; Neutrophils # (auto) 5.35 K/uL (1.40-6.50); Neutrophils % (auto) 77.1 %; Nucleated RBC # (auto) 0.02 K/uL (0-0.12); Nucleated RBC % (auto) 0.3 %; Platelet Count 211 K/uL (130-400); RDW Coefficient of Variation 19.9 % (11.5-14.5); RDW Standard Deviation 53.5 fL (36.4-46.3); Red Blood Count 3.23 M/uL (4.20-5.40); White Blood Count 6.93 K/ul (4.8-10.8)
[2022-11-27 06:41] LABS: BUN Creatinine Ratio 15.2 (10-20); Calcium 9.6 mg/dl (8.6-10.3); Creatinine Clr Calc Pharmacy 99.7 ml/min; Est GFR (Non-African American) 68.2 ml/min; Potassium 3.8 mmol/L (3.5-5.1)
[2022-11-27 07:07] LABS: Hypochromasia Present
[2022-11-27] MEDS: DULoxetine HCL 30 MG CAP PO SCH (08:21)
[2022-11-27] MEDS: PERPHENAZINE 2 MG TABLET PO SCH (08:21)
[2022-11-27] MEDS: lamoTRIgine 100 MG TAB PO SCH (08:22)
[2022-11-27] MEDS: hydrALAZINE TAB 50 MG TAB PO SCH ×2 (08:22→14:33)
[2022-11-27] MEDS: LOSARTAN POTASSIUM 50 MG TAB PO SCH (08:23)
[2022-11-27] MEDS: SOTALOL HCL 80 MG TAB PO SCH (08:23)
[2022-11-27] MEDS: SERTRALINE HCL 50 MG TABLET PO SCH (08:24)
[2022-11-27] MEDS: FUROSEMIDE 40 MG TAB PO SCH (08:24)
[2022-11-27] MEDS: carvediloL 25 MG TAB PO SCH (08:25)
[2022-11-27] MEDS: PANTOprazole 40 MG TAB PO SCH (08:26)
[2022-11-27] MEDS: busPIRone 5 MG TAB PO SCH ×2 (08:26→14:33)
[2022-11-27] MEDS: FLUTICASONE/VILANTEROL 200/25MCG 14 PUFFS/INHALER INH SCH (08:26)
[2022-11-27] MEDS: UMECLIDINIUM BROMIDE 62.5MCG/BLISTER 7 PUFFS/INHALER INH SCH (08:27)
[2022-11-27] MEDS: ALPRAZolam 0.25 MG TABLET PO PRN (08:30)
--- NOTE | 2022-11-27 13:16 | Discharge Summary ---
Date of Service November 27, 2022 Admission HPI Per Admitting Provider Patient is a 57-year-old female with history of paroxysmal atrial 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, schizoaffective disorder, pulmonary hypertension, chronic diastolic heart failure, chronic migraine, GERD, epilepsy, dyslipidemia, hypertension, obstructive sleep apnea, hypothyroidism, Irritable bowel syndrome, major depression, bipolar disorder, restless leg syndrome, iron deficiency anemia, antiphospholipid syndrome and other medical problems presents with history of dyspnea on exertion and states feeling tired with minimal activity which has been gradually worsening over 2 months. Patient is a poor historian. She follows with [facility] hematology for management of iron deficiency anemia and gets iron transfusions. Last iron transfusion is in July 2022 as per patient. Denies any bleeding per rectum, melena, hematuria, epistaxis. she states taking Advil about 5 days ago for headache and arthritis. She is currently on Eliquis for paroxysmal atrial 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. Last EGD was done in June 2022 which was normal. Denies any history of chest pain, palpitations, dizziness, diaphoresis, cough, wheezing, hemoptysis, fever, chills, change in vision, nausea, vomiting, abdominal pain, diarrhea, dysuria. She also follows with psychiatry for management of for mood disorder. Admission Exam Per Admitting Provider Physical Exam: Vitals signs as noted above General Appearance:Morbidly Obese, no apparent distress Head: normocephalic, Atraumatic Eyes: normal inspection, EOMI Neck: supple, Trachea midline Respiratory/Chest: Normal breath sounds, CTA, No accessory muscle use Cardiovascular: S1, S2, No murmur Abdomen/GI:Soft, Non tender, Protuberant, Bowel sounds present Extremities/Musculoskeletal:normal inspection, 1+ B/L LE edema Neurologic/Psych:AAOX3, grossly no focal neurological deficits Skin: normal color, warm Principal Diagnosis Symptomatic Anemia Microcytic Anemia H/O Iron deficiency Anemia H/O GERD, Antral Gastritis Discharge Exam Constitutional: WD/WN, vitals as above, NAD, sitting up in bed, pleasant, conversing easily Respiratory: normal respiratory effort, lungs clear to auscultation, no wheeze, rales, rhonchi. Normal insp/exp effort, no accessory muscle use Cardiovascular: RRR, no murmur, no edema Vessels: no JVD or carotid bruit Chest: normal inspection of chest Abdomen: normal bowel sounds, soft, nontender, no hepatosplenomegaly Musculoskeletal: no cyanosis or clubbing, extremities motor strength 5/5 Skin: no rashes, warm and dry normal turgor Neurologic: PERRL, EOMI, accommodation nl, no face palsy, no dysarthria CN's II- XI intact bilaterally and moves all extremities Psychiatric: A+Ox3, euthymic affect Lymphatic: no cervical or axillary lymphadenopathy : deferred Discharge Data Allergies Allergy/AdvReac Type Severity Reaction Status Date / Time adhesive Allergy Intermediate RASH, ITCHY Verified 06/18/22 21:51 Hydantoins Allergy Intermediate Hives Verified 06/18/22 21:51 ethyl alcohol AdvReac Severe Seizure Verified 06/18/22 21:51 thioridazine AdvReac Severe SEIZURES Verified 06/18/22 21:51 phenytoin AdvReac Intermediate Nausea Verified 06/18/22 21:51 Consultations 11/25/22 11:43 ED Decision to Admit Stat 11/25/22 14:50 Consult Gastroenterology Routine Hospital Course (1) Symptomatic anemia: Patient is a 57-year-old female with past medical history of a flutter status post ablation, paroxysmal A-fib on Eliquis, she is schizoaffective disorder, dyslipidemia, COPD presented to the hospital with dyspnea on exertion. Patient has repeated hospitalization in the past for symptomatic anemia. On presentation, her hemoglobin was found to be 4.7. She was transfused 2 units of packed RBC. GI consultation was done; patient had endoscopy/colonoscopy done in November 2021; no evidence of GI bleeding. GI recommended outpatient follow-up for EGD/colonoscopy and possible video capsule endoscopy. Patient was placed on Protonix twice daily during the hospitalization. Her hemoglobin was monitored; continued to be stable at 7. Discussion was done with patient regarding long- term anticoagulation given her repeated hospitalization for symptomatic anemia. 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 Cardiology appointment was set up as outpatient. Patient to follow-up with cardiology and decide on long-term anticoagulation. Her Eliquis was kept on hold on discharge. Patient remained on sinus rhythm throughout the hospitali zation. Patient to also follow-up with her primary care doctor, GI and hematology. Please note the above document was generated using voice recognition software. It may contain grammatical, syntax or spelling errors. Any formal questions or concerns about the content, text or information contained within the body of this dictation should be directly addressed to the provider for clarification Total Time Total Time Spent Total Time Spent (In Minutes): 40 Total Time Includes: Examination of the Patient, Discharge Planning, Medication Reconciliation, Communication With Other Providers and Other Discharge Plan Discharge Items Patient Disposition: Home - Self-Care Reason For Visit: SYMPTOMATIC ANEMIA Discharge Diagnosis: Symptomatic Anemia s/p 2 units Packed RBCs Activity: Resume your previous activity Non-emergency contact: Primary Care Provider Call non-emergency contact if: you have any medication questions and your symptoms worsen Follow-up/Referrals: Brian Salas DO [Primary Care Provider] - 12/03/22 10:20 am (Date & Time 12/03/2022 10:20 AM Provider Cole Valdez III, MD Department Family Practice [facility] ) Mildred Mendez MD [Hospitalist] - 12/06/22 9:30 am (Date & Time 12/06/2022 9:30 AM Provider Mildred Mendez MD Department Hematology/Oncology [facility] ) Ritu Heard CRNP [Nurse Practitioner] - 11/30/22 8:00 am (Date & Time 11/30/2022 8:00 AM Provider ZION Feng Department Cardiology, [facility] ) Diet: Regular Addtl Attending Provider Instructions: You were admitted here with anemia. You received blood transfusions during the hospitalization. Your hemoglobin level at the time of the discharge was 7.2. GI evaluated you during the hospitalization. They recommended outpatient follow-up for endoscopy and colonoscopy with possible video capsule endoscopy. You are prescribed Protonix 40 mg twice daily as per recommendation by gastroenterology. Please follow-up with cardiology on November 30( Tuesday). Please hold Eliquis till you see cardiology. Given your repeated hospitalization with symptomatic anemia, please discuss risks stratification and benefits of being on anticoagulation. Please follow-up with hematology for IV iron infusion. Please follow-up with your primary care doctor. Pending Studies at Discharge: No Stand-Alone Forms: My [employer], Smoking Cessation Medications and DC Order Prescriptions: New pantoprazole 40 mg Tablet,Delayed Release (Dr/Ec) 40 mg PO BID Qty: 60 0RF Continued furosemide 40 mg tablet 40 mg PO BID carvedilol 25 mg tablet 25 mg PO BID lamotrigine 200 mg tablet 200 mg PO BID ropinirole 1 mg tablet 1 mg PO HS tizanidine 4 mg tablet 4 mg PO Q8H PRN (Reason: muscle spasms) sotalol 80 mg tablet 40 mg PO BID sertraline 100 mg tablet 125 mg PO DAILY potassium chloride 10 mEq tablet extended release 10 meq PO DAILY melatonin 3 mg Tablet 3 mg PO HS mirtazapine 30 mg tablet 30 mg PO HS buspirone 10 mg tablet 10 mg PO TID hydrochlorothiazide 12.5 mg capsule 12.5 mg PO DAILY gabapentin 300 mg capsule 300 mg PO HS montelukast 10 mg Tablet 10 mg PO HS hydroxyzine HCl 25 mg tablet 25 mg PO DAILY PRN (Reason: Anxiety) hydralazine 50 mg tablet 50 mg PO TID hydroxychloroquine 200 mg tablet 400 mg PO HS perphenazine 8 mg tablet 8 mg PO DAILY losartan 100 mg tablet 100 mg PO DAILY rosuvastatin 5 mg tablet 5 mg PO HS duloxetine 30 mg capsule,delayed release(DR/EC) 30 mg PO DAILY paliperidone 9 mg Tablet Extended Release 24 Hr 9 mg PO HS levocetirizine 5 mg Tablet 2.5 mg PO PM cholecalciferol (vitamin D3) [Vitamin D3] 50 mcg (2,000 unit) Tablet 50 mcg PO DAILY Spiriva Respimat 2.5 mcg/actuation mist 1 puff INHALATION DAILY fluticasone furoate-vilanterol [Breo Ellipta] 200-25 mcg/dose blister with device 1 ea INHALATION DAILY riboflavin (vitamin B2) [Vitamin B-2] 100 mg Tablet 400 mg PO DAILY Vitron-C 65 mg iron- 125 mg Tablet,Delayed Release (Dr/Ec) 1 tab PO BID levothyroxine [Synthroid] 150 mcg Tablet 300 mcg PO DAILYBB Qty: 60 0RF omeprazole 40 mg capsule,delayed release(DR/EC) 40 mg PO BID Qty: 60 0RF Discontinued Eliquis 5 mg tablet 5 mg PO BID Discharge Orders: Discharge Order (Routine); Ordered 11/27/22 Ordered By: Abdirashid De Leon Admission Data Admit Date/Time: 11/25/22 13:25 Attending Provider: Abdirashid De Leon Admit Provider: Cristobal Costa Primary Care Provider: Brian Salas Other Providers: Cristobal Costa ; Chula Miller ; Gio Viveros ; Ellen Rivero ; Vijaya Thomson ; Ludmila Rich ; Susan Walton ; Jonah Jimenez ; Christiano Noriega ; Isadora Alfaro ; Katy Guevara ; Mk Iverson ; Lena Wu ; Fernanda Winter ; Aziza Malloy ; Rosalie Mackenzie ; Anusha Mcfadden ; Satya Currie ; Kunal Penaloza ; Ritu Sun ; Ny Lara Jr
== END 2022-11-27 15:10 | disposition home or self-care (01) | DRG 812 ==
LOC: ED 09:16 → SUATTDRO 13:25 → 4W 13:25

== ENCOUNTER 2024-06-10 02:23 | Observation (INO) ==
--- OUTSIDE RECORDS SUMMARY | 2024-06-10 02:28 | External Medical Summary | Summary of Care ---
Author Name Unknown Organization [facility] Address [address] [facility] [place] [address] Phone [phone] Care Team Providers Care Core Java Engineer Name Role Phone Brian Salas DO Primary Care Provider [phone] Reason for Visit * Reason Onset Date Comments Advice 05/21/2024 Encounter Details Date Type Department Care Team (Late st Contact Info) Description 05/21/2024 Telephone Family Practice [facility] [address] [place] [address] Brian Salas DO [address] [facility] [address] Advice Allergies Active Allergy Reactions Criticality Noted Date Comments Adhesive Tape High 06/18/2022 Other reaction(s): RASH, ITCHY Alcohol High 06/18/2022 Other reaction(s): Seizure Hydantoins High 06/18/2022 Other reaction(s): Hives, Nausea Latex 03/29/2017 rash Phenytoin High 12/21/2021 Other Reaction(s): Itchy rash Phenytoin Sodium Rash 05/28/1999 Thioridazine High 06/18/2022 Other reaction(s): SEIZURES Torsemide 01/30/2021 ? possible rash on legs and arms Wound Dressing Adhesive Itching,Rash 03/05/2022 documented as of this encounter (statuses as of 05/25/2024) Medications Medication Sig Dispensed Refills Start Date End Date Status lamoTRIgine (LAMICTAL) 200 MG TabletIndications:Eliana izoaffective disorder, chronic condition (HCC) TAKE 1 TABLET BY MOUTH TWICE DAILY MOOD DISORDER 180 Tab 1 02/23/2018 Active Vitamin B-2 100 MG Oral Tablet (vitamin B-2) TAKE 4 TABLETS (400MG) BY MOUTH DAILY 112 Tab 4 05/29/2020 Active Mirtazapine 30 MG Oral Tablet (REMERON) TAKE 1 TABLET BY MOUTH EVERYDAY AT BEDTIME 30 Tab 5 07/30/2020 Active Melatonin 3 MG Oral CapsuleIndications:Pr imary insomnia Take 1 Cap by mouth at bedtime. 90 Cap 3 02/04/2021 Active Gabapentin 300 MG Oral Capsule (Neurontin)Indication s:Polyneuropathy in other diseases classified elsewhere ([facility]) Take 1 Cap by mouth at bedtime. 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, in partial remission ([facility]) Take 1 Tab by mouth daily. 30 Tab 11 06/05/2021 Active Systane 0.4-0.3 % Ophthalmic Solution (Polyethyl Glycol-Propyl Glycol) Instill 1 Drop into both eyes as needed for Dry eyes (may use 3- 4 times daily). Active Paliperidone ER 9 MG Oral Tablet Extended Release 24 Hour Take by mouth . Acti ve Vitamin D3 50 MCG (2000 UT) Oral Capsule Take by mouth 1 Capsule in the morning. 30 Capsule 5 11/13/2021 Active BiPAP every night at bedtime . Active Vitron-C 65-125 MG Oral Tablet (Iron-Vitamin C) Take by mouth 1 Tablet in the morning AND 1 Tablet before bedtime. 180 Tablet 3 03/05/2022 Active busPIRone HCl 10 MG Oral Tablet (Buspar) 06/04/2022 Acti ve Perphenazine 8 MG Oral Tablet 06/04/2022 Active Ventolin HFA 108 (90 Base) MCG/ACT Inhalation Aerosol Solution INHALE 2 PUFFS BY MOUTH EVERY FOUR HOURS NEEDED FOR WHEEZING 18 g 5 09/16/2022 Active Pantoprazole Sodium 40 MG Oral Tablet Delayed Release (Protonix) Take 1 Tablet by mouth in the morning. 90 Tablet 3 12/13/2022 Active DULoxetine HCl 30 MG Oral Capsule Delayed Release Particles (Cymbalta)Indications :Chronic bilateral low back pain with right-sided sciatica TAKE 1 CAPSULE BY MOUTH DAILY *DO NOT CUT, CRUSH OR CHEW* 28 Capsule 9 02/11/2023 Active Levocetirizine Dihydrochloride 5 MG Oral Tablet (Xyzal Allergy 24HR)Indications:Mixe d rhinitis Take 1 Tablet by mouth every evening. 30 Tablet 11 03/08/2023 Active Paliperidone ER 6 MG Oral Tablet Extended Release 24 Hour (Invega) 06/30/2023 Active Perphenazine 2 MG Oral Tablet (Trilafon) 06/30/2023 Active Fluticasone Propionate 50 MCG/ACT Nasal Suspension (Flonase) Administer 2 Sprays into each nostril in the morning. 16 g 11 07/05/2023 Active Triamcinolone Acetonide 55 MCG/ACT Nasal Aerosol (Nasacort Allergy 24HR)Indications:Vicente rgic rhinitis, unspecified seasonality, unspecified trigger Administer 2 Sprays into nostril in the morning. 16.9 mL 5 07/05/2023 Active hydrOXYzine HCl 50 MG Oral Tablet Take 1 Tablet by mouth every 6 hours as needed for Itching. 60 Tablet 3 07/28/2023 Active Triamcinolone Acetonide 0.5 % External Cream (Aristocort)Indicatio ns:Intrinsic eczema APPLY TOPICALLY TO AFFECTED AREA TWICE A DAY FOR 14 DAYS 45 g 1 08/04/2023 Active Hydroxychloroquine Sulfate 200 MG Oral Tablet (Plaquenil) TAKE 2 TABLETS BY MOUTH EVERY NIGHT AT BEDTIME 56 Tablet 2 08/29/2023 Active hydrALAZINE HCl 50 MG Oral Tablet (Apresoline)Indicatio ns:HTN, goal below 140/90,Lower extremity edema,PAF (paroxysmal atrial 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) (HCC),ROSALES (dyspnea on exertion),Dyslipidemi a, goal LDL below 100 TAKE 1 TABLET BY MOUTH THREE TIMES A DAY 270 Tablet 3 09/23/2023 Active hydroCHLOROthiazide 12.5 MG Oral Capsule (Hydrodiuril)Indicati ons:HTN, goal below 140/90,Shortness of breath TAKE 1 CAPSULE BY MOUTH EVERY MORNING 90 Capsule 3 09/23/2023 Active Carvedilol 25 MG Oral Tablet (Coreg) TAKE 1 TABLET BY MOUTH TWICE A DAY WITH FOOD 56 Tablet 8 11/16/2023 Active Sotalol HCl 80 MG Oral Tablet (Betapace)Indications :PAF (paroxysmal atrial 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) (HCC) TAKE 1/2 TABLET BY MOUTH TWICE A DAY *HOLD FOR HEART RATE LESS THAN 60 OR SYSTOLIC BLOOD PRESSURE LESS THAN 100 &NOTIFY SERVICE IF DOSE 28 Tablet 8 11/16/2023 Active Montelukast Sodium 10 MG Oral Tablet (Singulair)Indication s:Mixed rhinitis,Moderate persistent asthma without complication Take 1 Tablet by mouth at bedtime. 30 Tablet 6 01/11/2024 Active Potassium Chloride ER 10 MEQ Oral Tablet Extended ReleaseIndications:HT N, goal below 140/90,PAF (paroxysmal atrial 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) (HCC),ROSALES (dyspnea on exertion) TAKE 1 TABLET BY MOUTH DAILY 90 Tablet 1 02/29/2024 Active Breo Ellipta 200-25 MCG/ACT Inhalation Aerosol Powder Breath Activated (fluticasone furoate-vilanterol)In dications:Moderate persistent asthma without complication INHALE 1 PUFF BY MOUTH DAILY 60 Each 5 03/26/2024 Active Losartan Potassium 100 MG Oral Tablet (Cozaar) TAKE 1 TABLET BY MOUTH DAILY 90 Tablet 1 04/05/2024 Active tiZANidine HCl 4 MG Oral Tablet (Zanaflex)Indications :Acute pain of left shoulder TAKE 1 TABLET BY MOUTH EVERY 8 HOURS NEEDED FOR MUSCLE SPASMS 30 Tablet 5 04/09/2024 Active Mirabegron ER 50 MG Oral Tablet Extended Release 24 Hour (Myrbetriq) Take 1 Tablet by mouth every evening. 90 Tablet 3 05/03/2024 Active Rosuvastatin Calcium 5 MG Oral Tablet (Crestor)Indications: Dyslipidemia, goal LDL below 130 TAKE 1 TABLET BY MOUTH DAILY 90 Tablet 05/07/2024 Active Levothyroxine Sodium 200 MCG Oral Tablet (Levoxyl) Take 1 Tablet by mouth in the morning. (at least 30 min prior to breakfast or other meds). 90 Tablet 3 05/18/2024 Active documented as of this encounter (statuses as of 05/25/2024) Active Problems Problem Noted Date Diagnosed Date Heart failure, diastolic, with acute decompensat ion 09/05/2023 PAF (paroxysmal atrial 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) 09/05/2023 Schizoaffective disorder, depressive type 2022 Sjogren syndrome, unspecified 04/26/2023 Recurrent major depressive disorder 04/26/2023 Dyslipidemia 01/15/2023 Chronic diastolic heart failure 06/09/2022 Antiphospholipid syndrome 12/21/2021 Restless leg syndrome 06/24/2021 Iron deficiency anemia due to chronic blood loss 06/24/2021 Pulmonary hypertension 01/23/2021 Schizoaffective disorder, bipolar type 1 Morbid obesity 11/05/2020 Prediabetes 05/12/2020 Overview: Per Prediabetes protocol Major depressive disorder, single episode, unspe cified 08/02/2019 Gastroesophageal reflux disease with esophagitis 08/02/2019 Mild intellectual disabilities 08/02/2019 Eczema 01/15/2019 Migraine without aura and wi thout status migrainosus, not intractable 01/03/2019 Controlled substance agreement signed 05/17/2017 Irritable bowel syndrome with diarrhea 6 Acquired hypothyroidism 12/09/2015 Typical atrial flutter 09/16/2015 S/P lumbar laminectomy 07/18/2014 DDD (degenerative disc disease), lumbar 02/08/20 14 Obstructive sleep apnea 11/09/2010 Overview: 07/2011 -- Refusing O2 or CPAP. Purchased CPAP 2006, pt threw away, not eligible until 07/2012. ICD-10 update of inactive term HTN, goal below 130/80 09/03/2010 Moderate persistent asthma without complication documented as of this encounter (statuses as of 05/25/2024) Resolved Problems Problem Noted Date Diagnosed Date Resolved Date Body mass index (BMI) of 45. 0 to 49.9 in adult 01/10/2023 01/15/2023 Overview: Per Obesity protocol - Per Obesity protocol - Per Obesity protocol - Per Obesity protocol SOFIA positive 08/30/2022 01/15/2023 Major depressive disorder wi th single episode, in partial remission 11/11/2021 01/15/2023 Anemia 06/24/2021 01/15/2023 Body mass index (BMI) of 50. 0 to 59.9 in adult 01/13/2021 01/13/2023 Overview: Per Obesity protocol - Per Obesity protocol - Per Obesity protocol Body mass index (BMI) of 45. 0 to 49.9 in adult 07/14/2020 01/15/2021 Overview: Per Obesity protocol - Per Obesity protocol Body mass index (BMI) of 40. 0 to 44.9 in adult 04/08/2020 07/17/2020 Overview: Per Obesity protocol Unspecified convulsions 08/02/201912/30 Bipolar disorder 08/02/2019 01/15/2023 Other atherosclerosis of ignacio skylar arteries of extremities, bilateral legs 08/02/2019 11/11/2021 Polyneuropathy in other dise ases classified elsewhere 08/02/2019 01/15/2023 ROSALES (dyspnea on exertion) 03/27/2019 Perforation of left tympanic membrane 09/01/2018 03/27/2019 Morbid obesity with BMI of 45.0-49.9, adult 07/27/2018 04/10/2020 Overview: Per Obesity protocol Schizoaffective disorder, depressive type 07/27/2018 01/15/2023 Chronic tension-type headache, intractable 06/19/2018 01/15/2023 Body mass index (BMI) of 45. 0 to 49.9 in adult 03/14/2018 08/18/2018 Overview: Per Obesity protocol #1 - Peripheral vascular disease 11/29/2017 11/05/2020 Body mass index (BMI) of 50. 0 to 59.9 in adult 05/02/2017 03/18/2018 Overview: Per Obesity protocol #1 Intractable tension-type headache 12/15/2016 09/02/2017 Morbid obesity due to excess calories 11/29/2016 04/20/2018 PAF (paroxysmal atrial 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) 09/16/2015 01/15/2023 Anticoagulation management encounter 09/16/2015 04/20/2018 Neoplasm of uncertain behavior of skin 01/23/2014 12/20/2014 Verruca 01/23/2014 12/20/2014 Milia 01/23/2014 12/20/2014 IBS (irritable bowel syndrome) 11/15/2013 12/23/2015 ETD (eustachian tube dysfunction) 01/31/2013 11/29/2016 History of hearing loss 01/31/201312/30 Otitis media with effusion 01/31/2013 0 12/20/2014 Pulsatile tinnitus 01/31/2013 7 Incidental lung nodule, > 3mm and < 8mm 07/19/2011 03/27/2019 Overview: RUL f/u CT 09/2011 Adult body mass index 50.0-59.9 05/19/2011 02/16/2012 History of nonadherence to medical treatment 1 09/25/2012 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/31/2010 10/08/19 11 detention current use of ant icoagulant therapy 08/31/2010 05/19/2011 Overview: ICD-10 update of inactive term Dysfunction of eustachian tube 08/17/2010 05/19/2011 Hypersomnia with sleep apnea 08/17/2010 01/15/2023 OTITIS MEDIA, CHRONIC, LEFT 08/17/2010 05/19/2011 Abnormality of gait 03/24/2010 06/18/20 14 ACTIVE CASE MANAGEMENT Kadie Hernandez [phone] 01/06/20 10 05/18/2010 Overview: ACTIVE CASE MANAGEMENT Kadie Hernandez [phone] Dyslipidemia, goal LDL below 130 09/30/2009 01/15/2023 Esophageal reflux 01/27/2009 01/15/2023 Achilles tendinitis 10/25/2008 10/10/19 11 ADVANCE DIRECTIVE INFORMATION 01/18/2005 09/02/2017 Overview: No, Advance Directive brochure given to patient. Urge incontinence 05/06/2003 10/09/2010 Fibromyalgia 05/06/2003 11/17/2018 Tobacco use disorder 10/05/2001 011 Chronic migraine 01/15/2023 EPILEPSY;NONCONV,W/O INTRACTABLE 01/15/2023 LUMBAGO 11/10/2007 DEPRESS PSYCHOSIS-UNSPEC Irritable bowel syndrome SCHIZOAFFECTIVE-CHRONIC 07/02 Overview: Dr Lakia Ruvalcaba is her psychiatrist 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 09/25/19 13 documented as of this encounter (statuses as of 05/25/2024) Immunizations Name Administration Dates Next Due COVID-19 mRNA, LNP-s, No Pre serve, 2-Dose Series (Moderna) 11/03/2020,10/06/2020 COVID-19 mRNA, LNP-s, No Pre serve, 2-Dose Series (Pfizer) 06/08/2021 Covid-19, Mrna, Lnp-s, Pf, B ivalent, 30 Mcg, IM, 12 yrs and above (Pfizer) 05/05/2022 H1N1 2009 Influenza, IM 08/15/2009 Hepatitis B, 20+ yrs 01/16/2014,04/06/2013,03/05 PPD 02/27/2013 Pneumococcal Conjugate Vacci ne, 20-valent ([id number]) 03/05/2022 Pneumococcal Polysaccharide PPV23 (Pneumovax) 03/31/2009 Seasonal Influenza Vac., MDV , IM, 0.5 mL (Fluzone) 2017,09/10/2015,05/10/2014,05/18,05/05/2012,04/20/2011,05/15/2010 ,07/15/2009,05/22/2008,05/24/2007,08/2005 Seasonal Influenza Virus Vac cine, Unspecified Formulation 04/12/2022,04/09/2021,05/21/2020,08/02,04/20/2018,2017,04/26/2016 ,09/10/2015,05/10/2014,05/18/2013,11/2011,04/20/2011,05/15/2010, 0,07/15/2009,05/22/2008,05/24/2007,08/2005 Seasonal Influenza, PF, 6 M & above, IM , (FluLaval or Fluzone) 04/12/2022,04/09/2021,05/21/2020,08/02,04/20/2018 Seasonal Influenza, Quadriva lent, No Preserve, IM 04/01/2023,04/26/2016 Seasonal Influenza, Quadriva lent,with Preserve, 3 yr & above, IM 2017 Seasonal Influenza, Trivalen t, (IIV3), PF, (Fluzone) 05/15/2024 TDAP, Age 7 and older, IM (Adacel) 08/19/2011 Zoster Vaccine Recombinant (Shingrix) 05/11/2021 ,05/21/2020 documented as of this encounter Social History Tobacco Use Types Packs/Day Years Used Date Smoking Tobacco: Former Cigarettes 1 10 0 08/24/2000 - 08/24/2010 Smokeless Tobacco: Never Alcohol Use Standard Drinks/Week Comments No 0 (1 standard drink = 0.6 oz pur e alcohol) PHQ-2 Answer Date Recorded PHQ Adult Total Score 0 06/28/2022 Sex and Gender Information Value Date Recorded Sex Assigned at Female 12/20/2018 2:46 PM EDT Gender Identity Female 12/20/2018 2:46 PM EDT Sexual Orientation Straight 12/20/2018 2: 46 PM EDT Job Start Date Occupation Industry Not on file Not on file Not on file documented as of this encounter Miscellaneous Notes * Telephone Encounter - Rowena Kessler LPN - 05/25/2024 4:11 PM EDT Information was faxed to [facility]. Re-faxed at this time. Called patient making her aware. She said she recently had her intake eval and is waiting to start therapy. * Telephone Encounter - Garett Casillas OSA - 05/21/2024 8:53 AM EDT Patient calling in requesting a return call regarding where her referral for home health was sent. Please advise. documented in this encounter Plan of Treatment Upcoming Encounters Date Type Department Care Team (Late st Contact Info) Description 08/21/2024 8:30 AM EST Office Visit Cardiology, [facility] [address] [place] [address] Griselda Cody CRNP [address] [place] [address] 11/20/2024 10:00 AM EDT Office Visit Family Practice [facility] [address] [place] [address] Brian Salas, DO [address] [place] [address] 03/12/2025 11:20 AM EDT Office Visit [facility] Disorders [facility]tr [facility] [address] [facility] [place] [phone] Charlette Brannon, DO [address] [place] [address] 04/11/2025 8:20 AM EDT Office Visit [facility], [facility] [place] [address] Yo Abreu MD [address] [place] [address] 05/21/2025 9:25 AM EDT Office Visit Urogynecology [facility] [address] [place] [address] Del Baron MD [address] [place] [address] TuckerNurse Trae dunaway Rust [address] [place] [address] Scheduled Procedures Name Priority Associated Diagnoses Date/Ti me COLONOSCOPY FLEXIBLE PROXIMA L DIAGNOSTIC Recall Special screening for malignant neoplasms, colon Health Maintenance Due Date Last Done Comments Cologuard 2008 Fecal Occult Blood Test 2008 Sigmoidoscopy 2008 DTap/Tdap Vaccines (2 - Td or Tdap) 08/19/2021 08/19/2011 Depression Monitoring 06/28/2023 06/28/2022 COVID-19 Vaccine ( season) 2024 06/19/2023, 05/05/2022, 06/08/2021, Additional history exists Mammogram 04/19/2024 04/19/2023, 04/01, 03/22/2023, Additional history exists GFR 05/15/2025 05/15/2024, 05/02, 03/22/2023, Additional history exists HbA1c 05/15/2025 05/15/2024, 05/02, 06/28/2022, Additional history exists TSH 05/15/2025 05/15/2024, 10/30, 12/13/2022, Additional history exists Albumin/Creatinine Ratio 12/13/2025 12/13/2022 Lipid Panel 09/11/2026 09/11/2021, 11/2020, 04/17/2021, Additional history exists Colonoscopy 12/04/2031 12/03/2021, 11/2021, 06/07/2018, Additional history exists Colorectal Cancer Screening 12/04/2031 Hepatitis B Vaccine Completed 01/16/2014, 04/06/2013, 03/05/2013 Zoster Vaccines Completed 05/11/2021, 05/21/2020 Pneumococcal Vaccine: Pediatrics (0 to 5 Years) and At-Risk Patients (6 to 64 Years) Completed 03/05/2022, 03/31/2009 Influenza Vaccine (FLU shot) Completed , 04/21/2023, 04/01/2023, Additional history exists HPV (Gardasil) Vaccine Aged Out No lo nger eligible based on patient's age to complete this topic MENINGOCOCCAL (MENACTRA/MENVEO) Aged Out No longer eligible based on patient's age to complete this topic documented as of this encounter Medical Devices Not on filedocumented as of this encounter Care Teams Core Java Engineer Relationship Specialty Start Date End Date Brian Salas DO [address] [place] [address] PCP - General Family Medicine 12/16/15 documented as of this encounter
--- OUTSIDE RECORDS SUMMARY | 2024-06-10 02:28 | External Medical Summary ---
Author Name UNSPECIFIED Address Unknown Organization [facility] History of Encounters Reason for Assessment: Start of care - f urther visits planned Inpatient discharge facility: Past 14 Da ys: Not Discharged from Inpatient Facility Functional Assessment Patient Living Situation: Patient Lives Alone: Regular daytime When Dyspneic: With moderate exerti on (e.g., while dressing, using commode or bedpan, walking distances less than 20 feet) Bowel Incontinence Frequency: Very rarel y or never has bowel incontinence Cognitive and Behavioral and Psychiatric Symptoms: None Current Ability: Bathing: able to partic ipate in bathing self in shower or tub, but requires presence of another person throughout the bath for assistance or supervision. Current Ability: Ambulation: Able to wal k only with the supervision or assistance of another person at all times. Current: Management Of Oral Medications: Able to take medication(s) at the correct times if: (a) individual dosages are prepared in advance by another person; OR (b) another person develops a drug diary or chart Problems Primary Home Care Diagnosis ICD Code: M5 1.362^ Home Care Diagnosis 1: ICD Code: I11.0, Hypertensive heart disease with heart failure Home Care Diagnosis 1: Severity Ratin Home Care Diagnosis 2: ICD Code: I50.32, Chronic diastolic (congestive) heart failure Home Care Diagnosis 2: Severity Ratin Home Care Diagnosis 3: ICD Code: I48.0, Paroxysmal atrial 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 Home Care Diagnosis 3: Severity Ratin Home Care Diagnosis 4: ICD Code: F25.0, Schizoaffective disorder, bipolar type Home Care Diagnosis 4: Severity Ratin Home Care Diagnosis 5: ICD Code: F33.9, Major depressive disorder, recurrent, unspecified Home Care Diagnosis 5: Severity Ratin
--- OUTSIDE RECORDS SUMMARY | 2024-06-10 02:29 | External Medical Summary | Summary of Care ---
Author Name Unknown Organization [facility] Address [address] [facility] [place] [address] Phone [phone] Care Team Providers Care Radiation Therapist Name Role Phone Brian Salas DO Primary Care Provider [phone] Reason for Visit * Reason Onset Date Comments Advice 05/21/2024 Encounter Details Date Type Department Care Team (Late st Contact Info) Description 05/21/2024 Telephone Family Practice [facility] [address] [place] [address] Brian Salas DO [address] [facility] [address] Advice Allergies Active Allergy Reactions Criticality Noted [...] as of this encounter (statuses as of 05/22/2024) Medications Medication Sig Dispensed Refills Start Date [...] (Neurontin)Indication s:Polyneuropathy in other diseases classified elsewhere ([facility]) Take 1 Cap by mouth at bedtime. 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, in partial remission ([facility]) Take 1 Tab by mouth daily. 30 [...] as of this encounter (statuses as of 05/22/2024) Active Problems Problem Noted Date Diagnosed Date [...] as of this encounter (statuses as of 05/22/2024) Resolved Problems Problem Noted Date Diagnosed Date [...] as of this encounter (statuses as of 05/22/2024) Immunizations Name Administration Dates Next Due COVID-19 mRNA, LNP-s, No Pre serve, 2-Dose Series (Moderna) 11/03/2020,10/06/2020 COVID-19 mRNA, LNP-s, No Pre serve, 2-Dose Series (Pfizer) 06/08/2021 Covid-19, Mrna, Lnp-s, Pf, B ivalent, 30 Mcg, IM, 12 yrs and above (Pfizer) 05/05/2022 H1N1 2009 Influenza, IM 08/15/2009 Hepatitis B, 20+ yrs 01/16/2014,04/06/2013,03/05 PPD 02/27/2013 Pneumococcal Conjugate Vacci ne, 20-valent ([id number]) 03/05/2022 Pneumococcal Polysaccharide PPV23 (Pneumovax) 03/31/2009 Seasonal [...] encounter Miscellaneous Notes * Telephone Encounter - Kristina Britton CPhT - 05/22/2024 1:40 PM EDT Pt called stating she needs another script for the bariatric underwear. Please advise. Thank you, Kristina Britton Dictating Machine Typist [facility] 05/22/2024,1:41 PM * Telephone Encounter - Alexis Siddiqui OSA - 05/21/2024 10:49 AM EDT Patient called stating she needs another script for the bariatric underwear documented in this encounter Plan of Treatment Upcoming Encounters Date Type Department Care Team (Late st Contact Info) Description 08/21/2024 8:30 AM EST Office Visit Cardiology, [facility] [address] [place] [address] Griselda Cody CRNP [address] [place] [address] 11/20/2024 10:00 AM EDT Office Visit Family Practice [facility] [address] [place] [address] Brian Salas, DO [address] [place] [address] 03/12/2025 11:20 AM EDT Office Visit Sleep Disorders Ctr [facility] [address] [place] [address] Charlette Brannon, DO [address] [place] [address] 04/11/2025 8:20 AM EDT Office Visit Pulmonary Medicine, [facility] [address] [place] [address] Yo Abreu MD [address] [place] [address] 05/21/2025 9:25 AM EDT Office Visit Urogynecology [facility] [address] [facility] [place] [address] Del Baron MD [address] [place] [address] Nurse Trae Tucker [facility] [address] [place], [place] [address] Scheduled Procedures Name Priority Associated Diagnoses Date/Ti [...] filedocumented as of this encounter Care Teams Radiation Therapist Relationship Specialty Start Date End Date Brian Salas DO [address] [place] [address] PCP - General Family Medicine 12/16/15 documented as of this encounter
--- OUTSIDE RECORDS SUMMARY | 2024-06-10 02:29 | External Medical Summary | Summary of Care ---
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 Name Role Phone Brian Salas DO Primary Care Provider [phone] Reason for Referral * Evaluate & Treat - Unlimited Visits (Within 30 days (routine)) - Authorized Specialty Diagnoses / Procedures Referred By Contac t Referred To Contact HOME CARE / Home Care Diagnoses Degeneration of intervertebral disc of lumbar region with discogenic back pain and lower extremity pain S/P lumbar laminectomy Brian Salas DO [address] [place] [address] Referral ID Status Reason Start Date Expiration Date Visits Requested Visits Authorized [id number] Authorized Specialty Services Required 4 [phone] Question Answer Referral Priority Within 30 days (routine) Where should this appointment be scheduled? Ana Comments Documentation of [id number] Encounter Addendum Patient Name: Sofia Melton I certify that this patient is under my care and that I, or a nurse practitioner or physician's residential assistant working with me, had a [id number] encounter that meets the physician [id number] encounter requirements with this patient on: 05/15/24 The encounter with the patient was in whole, or in part, for the following medical condition, which is the primary reason for home health care (List medical condition): Gait dysfunction I certify that, based on my findings, the following services are medically necessary home health services: Physical Therapy To provide the following care/treatments: (All hospitalists not following the patient after discharge should complete this section): Physical therapy for weak legs Primary Care Physician to follow home care plan of care after discharge: Dr. Brian Salas DO My clinical findings support the need for the above services because: Pt with weakness in her legs from spinal stenosis with increased risk of falls Further, I certify that my clinical findings support that this patient is homebound (i.e. Absences from home require considerable and taxing effort and are for medical reasons or mormonism services or infrequently or of short duration when for other reason) because: PT cannot drive to outpatient PT Physician Signature: Date of Signature: Physician Printed Name: Brian Salas DO Reason for Visit * Reason Onset Date Comments Medication Administration 05/15/2024 Flu an d/or Pneumo Inj Encounter Details Date Type Department Care Team (Latest Contact Info) Description 05/15/2024 1:00 PM EDT Office Visit Family Practice [facility] [address] [facility] [place] [address] Brian Salas DO [address] [facility] [place] [id number] HTN, goal below 130/80*; Need for prophylactic vaccination and inoculation against influenza; Prediabetes; Acquired hypothyroidism; Degeneration of intervertebral disc of lumbar region with discogenic back pain and lower extremity pain; S/P lumbar laminectomy; Chronic diastolic heart failure (HCC) Allergies Active Allergy Reactions Criticality Noted Date [...] as of this encounter (statuses as of 05/15/2024) Medications Medication Sig Dispensed Refills Start Date End Date Status lamoTRIgine (LAMICTAL) 200 MG TabletIndications:Sc hizoaffective disorder, chronic condition ([facility]) TAKE 1 TABLET BY MOUTH TWICE DAILY MOOD DISORDER 180 Tab 1 8 Active Vitamin B-2 100 MG Oral Tablet (vitamin B-2) TAKE 4 TABLETS (400MG) BY MOUTH DAILY 112 Tab 4 0 Active Mirtazapine 30 MG Oral Tablet (REMERON) TAKE 1 TABLET BY MOUTH EVERYDAY AT BEDTIME 30 Tab 5 0 Active Melatonin 3 MG Oral CapsuleIndications:P rimary insomnia Take 1 Cap by mouth at bedtime. 90 Cap 3 1 Active Gabapentin 300 MG Oral Capsule (Neurontin)Indicatio ns:Polyneuropathy in other diseases classified elsewhere ([facility]) Take 1 Cap by mouth at bedtime. 30 Cap 5 1 Active Sertraline HCl 100 MG Oral Tablet (Zoloft)Indications: Major depressive disorder with single episode, in partial remission ([facility]) Take 1 Tab by mouth daily. 30 Tab 11 1 Active Systane 0.4-0.3 % Ophthalmic Solution (Polyethyl Glycol-Propyl Glycol) Instill 1 Drop into both eyes as needed for Dry eyes (may use 3- 4 times daily). Active Paliperidone ER 9 MG Oral Tablet Extended Release 24 Hour Take by mouth . Active Vitamin D3 50 MCG (2000 UT) Oral Capsule Take by mouth 1 Capsule in the morning. 30 Capsule 5 2 Active BiPAP every night at bedtime . Active Vitron-C 65-125 MG Oral Tablet (Iron-Vitamin C) Take by mouth 1 Tablet in the morning AND 1 Tablet before bedtime. 180 Tablet 3 2 Active busPIRone HCl 10 MG Oral Tablet (Buspar) 2 Active Perphenazine 8 MG Oral Tablet 2 Active Ventolin HFA 108 (90 Base) MCG/ACT Inhalation Aerosol Solution INHALE 2 PUFFS BY MOUTH EVERY FOUR HOURS NEEDED FOR WHEEZING 18 g 5 3 Active Pantoprazole Sodium 40 MG Oral Tablet Delayed Release (Protonix) Take 1 Tablet by mouth in the morning. 90 Tablet 3 3 Active DULoxetine HCl 30 MG Oral Capsule Delayed Release Particles (Cymbalta)Indication s:Chronic bilateral low back pain with right-sided sciatica TAKE 1 CAPSULE BY MOUTH DAILY *DO NOT CUT, CRUSH OR CHEW* 28 Capsule 9 3 Active Levocetirizine Dihydrochloride 5 MG Oral Tablet (Xyzal Allergy 24HR)Indications:Mix ed rhinitis Take 1 Tablet by mouth every evening. 30 Tablet 11 3 Active Paliperidone ER 6 MG Oral Tablet Extended Release 24 Hour (Invega) 3 Active Perphenazine 2 MG Oral Tablet (Trilafon) 3 Active Fluticasone Propionate 50 MCG/ACT Nasal Suspension (Flonase) Administer 2 Sprays into each nostril in the morning. 16 g 11 3 Active Triamcinolone Acetonide 55 MCG/ACT Nasal Aerosol (Nasacort Allergy 24HR)Indications:All ergic rhinitis, unspecified seasonality, unspecified trigger Administer 2 Sprays into nostril in the morning. 16.9 mL 5 3 Active hydrOXYzine HCl 50 MG Oral Tablet Take 1 Tablet by mouth every 6 hours as needed for Itching. 60 Tablet 3 3 Active Triamcinolone Acetonide 0.5 % External Cream (Aristocort)Indicati ons:Intrinsic eczema APPLY TOPICALLY TO AFFECTED AREA TWICE A DAY FOR 14 DAYS 45 g 1 4 Active Hydroxychloroquine Sulfate 200 MG Oral Tablet (Plaquenil) TAKE 2 TABLETS BY MOUTH EVERY NIGHT AT BEDTIME 56 Tablet 2 4 Active hydrALAZINE HCl 50 MG Oral Tablet (Apresoline)Indicati ons:HTN, goal below 140/90,Lower extremity edema,PAF (paroxysmal atrial 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) (HCC),ROSALES (dyspnea on exertion),Dyslipidem ia, goal LDL below 100 TAKE 1 TABLET BY MOUTH THREE TIMES A DAY 270 Tablet 3 4 Active hydroCHLOROthiazide 12.5 MG Oral Capsule (Hydrodiuril)Indicat ions:HTN, goal below 140/90,Shortness of breath TAKE 1 CAPSULE BY MOUTH EVERY MORNING 90 Capsule 3 4 Active Carvedilol 25 MG Oral Tablet (Coreg) TAKE 1 TABLET BY MOUTH TWICE A DAY WITH FOOD 56 Tablet 8 4 Active Sotalol HCl 80 MG Oral Tablet (Betapace)Indication s:PAF (paroxysmal atrial 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) ([facility]) TAKE 1/2 TABLET BY MOUTH TWICE A DAY *HOLD FOR HEART RATE LESS THAN 60 OR SYSTOLIC BLOOD PRESSURE LESS THAN 100 &NOTIFY SERVICE IF DOSE 28 Tablet 8 4 Active Levothyroxine Sodium 75 MCG Oral Tablet (Levoxyl) Take 1 Tablet by mouth in the morning. (at least 30 min prior to breakfast or other meds). Take in addition to 150 mcg dose. 30 Tablet 11 4 Active Levothyroxine Sodium 150 MCG Oral Tablet (Levoxyl) Take 1 Tablet by mouth daily first thing in the morning. In addition to 75 mcg dose. 90 Tablet 1 4 Active Montelukast Sodium 10 MG Oral Tablet (Singulair)Indicatio ns:Mixed rhinitis,Moderate persistent asthma without complication Take 1 Tablet by mouth at bedtime. 30 Tablet 6 4 Active Potassium Chloride ER 10 MEQ Oral Tablet Extended ReleaseIndications:H TN, goal below 140/90,PAF (paroxysmal atrial 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) ([facility]),ROSALES (dyspnea on exertion) TAKE 1 TABLET BY MOUTH DAILY 90 Tablet 1 4 Active Breo Ellipta 200-25 MCG/ACT Inhalation Aerosol Powder Breath Activated (fluticasone furoate-vilanterol)I ndications:Moderate persistent asthma without complication INHALE 1 PUFF BY MOUTH DAILY 60 Each 5 4 Active Losartan Potassium 100 MG Oral Tablet (Cozaar) TAKE 1 TABLET BY MOUTH DAILY 90 Tablet 1 4 Active tiZANidine HCl 4 MG Oral Tablet (Zanaflex)Indication s:Acute pain of left shoulder TAKE 1 TABLET BY MOUTH EVERY 8 HOURS NEEDED FOR MUSCLE SPASMS 30 Tablet 5 4 Active Mirabegron ER 50 MG Oral Tablet Extended Release 24 Hour (Myrbetriq) Take 1 Tablet by mouth every evening. 90 Tablet 3 4 Active Rosuvastatin Calcium 5 MG Oral Tablet (Crestor)Indications :Dyslipidemia, goal LDL below 130 TAKE 1 TABLET BY MOUTH DAILY 90 Tablet 4 Active Furosemide 40 MG Oral Tablet (Lasix)Indications:H eart failure, diastolic, with acute decompensation (HCC) TAKE 1 TABLET BY MOUTH TWICE A DAY 180 Tablet 1 4 05/15/20 24 Discontinued documented as of this encounter (statuses as of 05/15/2024) Active Problems Problem Noted Date Diagnosed Date [...] Pulmonary hypertension 01/23/2021 Schizoaffective disorder, bipolar type Morbid obesity 11/05/2020 Prediabetes 05/12/2020 Overview: Per [...] as of this encounter (statuses as of 05/15/2024) Resolved Problems Problem Noted Date Diagnosed Date [...] 1 09/25/2012 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/31/2010 10/08/19 11 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 08/31/2010 05/19/2011 Overview: ICD-10 update of inactive term Dysfunction of eustachian tube 08/17/2010 05/19/2011 Hypersomnia with sleep apnea 08/17/2010 01/15/2023 OTITIS MEDIA, CHRONIC, LEFT 08/17/2010 05/19/2011 Abnormality of gait 03/24/2010 06/18/20 14 ACTIVE CASE MANAGEMENT Kadie Fitzgerald [id number] 01/06/20 10 05/18/2010 Overview: ACTIVE CASE MANAGEMENT Kadie Fitzgerald [id number] Dyslipidemia, goal LDL below 130 09/30/2009 [...] as of this encounter (statuses as of 05/15/2024) Immunizations Name Administration Dates Next Due COVID-19 mRNA, LNP-s, No Pre serve, 2-Dose Series (Moderna) 11/03/2020,10/06/2020 COVID-19 mRNA, LNP-s, No Pre serve, 2-Dose Series (Pfizer) 06/08/2021 Covid-19, Mrna, Lnp-s, Pf, B ivalent, 30 Mcg, IM, 12 yrs and above (Pfizer) 05/05/2022 H1N1 2009 Influenza, IM 08/15/2009 Hepatitis B, 20+ yrs 01/16/2014,04/06/2013,03/05 PPD 02/27/2013 Pneumococcal Conjugate Vacci ne, 20-valent ([id number]) 03/05/2022 Pneumococcal Polysaccharide PPV23 (Pneumovax) 03/31/2009 Seasonal Influenza Vac., MDV , IM, 0.5 mL (Fluzone) 2017,09/10/2015,05/10/2014,05/18,05/05/2012,04/20/2011,05/15/2010 ,07/15/2009,05/22/2008,05/24/2007,11/0 08/2005 Seasonal Influenza Virus Vac cine, Unspecified Formulation 04/12/2022,04/09/2021,05/21/2020,08/02,04/20/2018,2017,04/26/2016 ,09/10/2015,05/10/2014,05/18/2013,10/0 11/2011,04/20/2011,05/15/2010, 0,07/15/2009,05/22/2008,05/24/2007,08/2005 Seasonal Influenza, PF, 6 M & [...] on file documented as of this encounter Last Filed Vital Signs Vital Sign Reading Time Taken Comments Blood Pressure 136/78 05/15/2024 1:09 PM EDT Pulse 72 05/15/2024 1:09 PM EDT Temperature 36.7 C (98 F) 05/15/2024 1:09 PM EDT Respiratory Rate 18 05/15/2024 1:09 PM EDT Oxygen Saturation - - Inhaled Oxygen Concentration - - Weight 128.3 kg (282 lb 12.8 oz) 05/15/2024 1:09 PM EDT Height - - Body Mass Index 49.31 04/10/2024 8:36 AM EDT documented in this encounter Progress Notes * Brian Salas, DO - 05/15/2024 1:16 PM EDT Subjective: Sofia Melton is a 59 year old female. Chief Complaint Patient presents with Medication Administration Flu and/or Pneumo Inj HPI: PT here in follow-up. Cut out junk food and has been losing weight. Eats less than she used to. She is having issues with her legs. X-ray of her back ordered before. She has not started PT. Sometimes when she tries to walk her legs do not want to go. IT feels like they are numb. She has had falls. IT is her whole leg. IT is both legs. Pt cannot drive or get to PT She is interested in getting rid of lasix. She is on 40 mg twice daily. No swelling in her legs. She says she actually has not been taking it. She has been taking it out of her bubble packs for a month. She was put on Myrbetriq also. Still thinking about assisted living. She is worried about paying for it. She talked to a facility already. We discussed mobility as the main issue. PMHx, meds, and allergies reviewed Patient Active Problem List Diagnosis HTN, goal below 130/80 Obstructive sleep apnea Moderate persistent asthma without complication DDD (degenerative disc disease), lumbar S/P lumbar laminectomy Typical atrial flutter (HCC) Acquired hypothyroidism Irritable bowel syndrome with diarrhea Controlled substance agreement signed Migraine without aura and without status migrainosus, not intractable Eczema Major depressive disorder, single episode, unspecified Gastroesophageal reflux disease with esophagitis Mild intellectual disabilities Prediabetes Schizoaffective disorder, bipolar type (HCC) Morbid obesity (HCC) Pulmonary hypertension (HCC) Restless leg syndrome Iron deficiency anemia due to chronic blood loss Antiphospholipid syndrome (HCC) Chronic diastolic heart failure (HCC) Dyslipidemia Schizoaffective disorder, depressive type (HCC) Sjogren syndrome, unspecified (HCC) Recurrent major depressive disorder (HCC) Heart failure, diastolic, with acute decompensation (HCC) PAF (paroxysmal atrial 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) ([facility]) Current Outpatient Medications Medication Sig Dispense Refill lamoTRIgine (LAMICTAL) 200 MG Tablet TAKE 1 TABLET BY MOUTH TWICE DAILY MOOD DISORDER 180 Tab 1 Vitamin B-2 100 MG Oral Tablet (vitamin B-2) TAKE 4 TABLETS (400MG) BY MOUTH DAILY 112 Tab 4 Melatonin 3 MG Oral Capsule Take 1 Cap by mouth at bedtime. 90 Cap 3 Gabapentin 300 MG Oral Capsule (Neurontin) Take 1 Cap by mouth at bedtime. 30 Cap 5 Sertraline HCl 100 MG Oral Tablet (Zoloft) Take 1 Tab by mouth daily. 30 Tab 11 Systane 0.4-0.3 % Ophthalmic Solution (Polyethyl Glycol-Propyl Glycol) Instill 1 Drop into both eyes as needed for Dry eyes (may use 3- 4 times daily). Paliperidone ER 9 MG Oral Tablet Extended Release 24 Hour Take by mouth . Vitamin D3 50 MCG (2000 UT) Oral Capsule Take by mouth 1 Capsule in the morning. 30 Capsule 5 BiPAP every night at bedtime . Vitron-C 65-125 MG Oral Tablet (Iron-Vitamin C) Take by mouth 1 Tablet in the morning AND 1 Tablet before bedtime. 180 Tablet 3 busPIRone HCl 10 MG Oral Tablet (Buspar) Perphenazine 8 MG Oral Tablet Ventolin HFA 108 (90 Base) MCG/ACT Inhalation Aerosol Solution INHALE 2 PUFFS BY MOUTH EVERY FOUR HOURS NEEDED FOR WHEEZING 18 g 5 Pantoprazole Sodium 40 MG Oral Tablet Delayed Release (Protonix) Take 1 Tablet by mouth in the morning. 90 Tablet 3 DULoxetine HCl 30 MG Oral Capsule Delayed Release Particles (Cymbalta) TAKE 1 CAPSULE BY MOUTH DAILY *DO NOT CUT, CRUSH OR CHEW* 28 Capsule 9 Levocetirizine Dihydrochloride 5 MG Oral Tablet (Xyzal Allergy 24HR) Take 1 Tablet by mouth every evening. 30 Tablet 11 Paliperidone ER 6 MG Oral Tablet Extended Release 24 Hour (Invega) Perphenazine 2 MG Oral Tablet (Trilafon) Fluticasone Propionate 50 MCG/ACT Nasal Suspension (Flonase) Administer 2 Sprays into each nostril in the morning. 16 g 11 Triamcinolone Acetonide 55 MCG/ACT Nasal Aerosol (Nasacort Allergy 24HR) Administer 2 Sprays into nostril in the morning. 16.9 mL 5 hydrOXYzine HCl 50 MG Oral Tablet Take 1 Tablet by mouth every 6 hours as needed for Itching. 60 Tablet 3 Triamcinolone Acetonide 0.5 % External Cream (Aristocort) APPLY TOPICALLY TO AFFECTED AREA TWICE A DAY FOR 14 DAYS 45 g 1 Hydroxychloroquine Sulfate 200 MG Oral Tablet (Plaquenil) TAKE 2 TABLETS BY MOUTH EVERY NIGHT AT BEDTIME 56 Tablet 2 hydrALAZINE HCl 50 MG Oral Tablet (Apresoline) TAKE 1 TABLET BY MOUTH THREE TIMES A DAY 270 Tablet 3 hydroCHLOROthiazide 12.5 MG Oral Capsule (Hydrodiuril) TAKE 1 CAPSULE BY MOUTH EVERY MORNING 90 Capsule 3 Carvedilol 25 MG Oral Tablet (Coreg) TAKE 1 TABLET BY MOUTH TWICE A DAY WITH FOOD 56 Tablet 8 Sotalol HCl 80 MG Oral Tablet (Betapace) TAKE 1/2 TABLET BY MOUTH TWICE A DAY *HOLD FOR HEART RATE LESS THAN 60 OR SYSTOLIC BLOOD PRESSURE LESS THAN 100 &NOTIFY SERVICE IF DOSE 28 Tablet 8 Levothyroxine Sodium 75 MCG Oral Tablet (Levoxyl) Take 1 Tablet by mouth in the morning. (at least 30 min prior to breakfast or other meds). Take in addition to 150 mcg dose. 30 Tablet 11 Levothyroxine Sodium 150 MCG Oral Tablet (Levoxyl) Take 1 Tablet by mouth daily first thing in the morning. In addition to 75 mcg dose. 90 Tablet 1 Montelukast Sodium 10 MG Oral Tablet (Singulair) Take 1 Tablet by mouth at bedtime. 30 Tablet 6 Furosemide 40 MG Oral Tablet (Lasix) TAKE 1 TABLET BY MOUTH TWICE A DAY 180 Tablet 1 Potassium Chloride ER 10 MEQ Oral Tablet Extended Release TAKE 1 TABLET BY MOUTH DAILY 90 Tablet 1 Breo Ellipta 200-25 MCG/ACT Inhalation Aerosol Powder Breath Activated (fluticasone furoate-vilanterol) INHALE 1 PUFF BY MOUTH DAILY 60 Each 5 Losartan Potassium 100 MG Oral Tablet (Cozaar) TAKE 1 TABLET BY MOUTH DAILY 90 Tablet 1 tiZANidine HCl 4 MG Oral Tablet (Zanaflex) TAKE 1 TABLET BY MOUTH EVERY 8 HOURS NEEDED FOR MUSCLE SPASMS 30 Tablet 5 Mirabegron ER 50 MG Oral Tablet Extended Release 24 Hour (Myrbetriq) Take 1 Tablet by mouth every evening. 90 Tablet 3 Rosuvastatin Calcium 5 MG Oral Tablet (Crestor) TAKE 1 TABLET BY MOUTH DAILY 90 Tablet 0 Mirtazapine 30 MG Oral Tablet (REMERON) TAKE 1 TABLET BY MOUTH EVERYDAY AT BEDTIME 30 Tab 5 No current facility-administered medications for this visit. Review of patient's allergies indicates: Allergen Reactions Adhesive Tape Other reaction(s): RASH, ITCHY Alcohol Other reaction(s): Seizure Hydantoins Other reaction(s): Hives, Nausea Phenytoin Other Reaction(s): Itchy rash Thioridazine Other reaction(s): SEIZURES Latex rash Phenytoin Sodium Rash Torsemide ? possible rash on legs and arms Wound Dressing Adhesive Itching and Rash OBJECTIVE: BP 136/78 | Pulse 72 | Temp 36.7 C (98 F) (Tympanic) | Resp 18 | Wt 128.3 kg (282 lb 12.8 oz) |BMI 49.31 kg/m | BSA 2.4 m Estimated body mass index is 49.31 kg/m as calculated from the following: Height as of 04/10/24: 1.613 m (5' 3.5"). Weight as of this encounter: 128.3 kg (282 lb 12.8 oz). BP Readings from Last 3 Encounters: 05/15/24 136/78 04/10/24 128/70 03/08/24 124/84 Wt Readings from Last 3 Encounters: 05/15/24 128.3 kg (282 lb 12.8 oz) 04/10/24 131.5 kg (290 lb) 03/08/24 131.5 kg (290 lb) ROS: Negative except for above PHYSICAL EXAM: General: alert, healthy, and no distress Head: Normocephalic, No masses, lesions, tenderness or abnormalities Heart: regular rate & rhythm, no murmur, and no gallops Lungs: chest symmetric with normal AP diameter, no chest deformities noted, no chest wall tenderness, lungs clear to auscultation Extremities: less than 2 second capillary refill, no joint deformities, effusion, or inflammation ASSESSMENT/Plan Need for prophylactic vaccination and inoculation against influenza (Primary) - INFLUENZA VAC, TRIVALENT, (IIV3), PF, 0.5 ML (FLUZONE) HTN, goal below 130/80 - BASIC METABOLIC PANEL; Future; Expected date: 05/15/2024 Prediabetes - HEMOGLOBIN A1C; Future; Expected date: 05/15/2024 Acquired hypothyroidism - TSH WITH FREE T4 IF INDICATED; Future; Expected date: 05/15/2024 I spent a total of 30 minutes on the date of service in preparation, delivery, and documentation ofthe care provided to this patient, excluding any time spent on the performance of any procedure or separately billable services. She should not have stopped lasix on her own. No consequences as of yet. HAs been off a month without swelling or SOB. Will check ProBNP and if elevated restart at 20 mg twice daily. She has follow-up with cardiology in 3 months. The above was discussed and understanding was expressed. Brian Salas DO * Rowena Kessler LPN - 05/15/2024 1:11 PM EDT PRE - ADMINISTRATION DOCUMENTATION Are you experiencing any cold symptoms or fever? No Have you had Guillain-[place] Syndrome (an illness that causes paralysis) within the last 6 weeks? No Have you had the flu shot in the past? YES Have you ever had a reaction to the flu shot? No Rowena Kessler LPN, 05/15/2024 1:11 PM Immunization Administration Documentation Time Out Procedure Performed: Yes Patient Identified (Ask Name/Date of ): Yes Does the patient have a fever greater than 101 degrees today? No Patient allergic to latex? No VFC Stock: No Injection(s) verified: Yes, Injection Name: Influenza Verified Side and Site: Yes Verified Shot(s) with Parent(s)/Patient: Yes documented in this encounter Nursing Notes * Rowena Kessler LPN - 05/15/2024 1:08 PM EDT Sofia Melton presents for 6 month recheck. Medications & HM reviewed. Has a few things she'd like to talk about. She's unsure if she's taking Perphenazine and is unsure of Invega dose. documented in this encounter Plan of Treatment Upcoming Encounters Date Type Department Care Team (Late st Contact Info) Description 08/21/2024 8:30 AM EST Office Visit Cardiology, [facility] [address] [place] [address] Griselda Cody CRNP [address] [place] [address] 11/20/2024 10:00 AM EDT Office Visit Family Practice [facility] [address] [facility] [place] [address] Brian Salas, DO [address] [facility] [place] [address] 03/12/2025 11:20 AM EDT Office Visit Sleep Disorders Ctr [facility] [address] [place] [phone] Charlette Brannon DO [address] [place] [address] 04/11/2025 8:20 AM EDT Office Visit Pulmonary Medicine, [facility] [address] [place] [address] Yo Abreu MD [address] [place] [phone] 05/21/2025 9:25 AM EDT Office Visit Urogynecology [facility] [address] [place] [address] Del Baron MD [address] [place] [address] Nurse Tare Tucker [address] [place] [id number] Pending Results Name Type Priority Associated Diagnoses Date /Time TSH WITH FREE T4 IF INDICATED Lab Routine Acquired hypothyroidism 05/15/2024 1:56 PM EDT HEMOGLOBIN A1C Lab Routine Prediabetes 05/15/2024 1:56 PM EDT BASIC METABOLIC PANEL Lab Routine HTN, goal below 130/80 05/15/2024 1:56 PM EDT BNP, NT-PRO Lab Routine Chronic diastolic heart failure (HCC) 05/15/2024 1:56 PM EDT Scheduled Orders Name Type Priority Associated Diagnoses Orde r Schedule TSH WITH FREE T4 IF INDICATED Lab Routine Acquired hypothyroidism Expected: 05/15/2024 (Approximate), Expires: 05/15/2025 HEMOGLOBIN A1C Lab Routine Prediabetes Expected: 05/15/2024 (Approximate), Expires: 05/15/2025 BASIC METABOLIC PANEL Lab Routine HTN, goal below 130/80 Expected: 05/15/2024 (Approximate), Expires: 05/15/2025 BNP, NT-PRO Lab Routine Chronic diastolic heart failure (HCC) Expected: 05/15/2024 (Approximate), Expires: 05/15/2025 Scheduled Procedures Name Priority Associated Diagnoses Date/Ti me COLONOSCOPY FLEXIBLE PROXIMA L DIAGNOSTIC Recall Special screening for malignant neoplasms, colon Scheduled Referrals Name Type Priority Associated Diagnoses Orde r Schedule HOME HEALTH REFERRAL OP Referral Within 30 days (routine) Degeneration of intervertebral disc of lumbar region with discogenic back pain and lower extremity pain S/P lumbar laminectomy Ordered: 05/15/2024 Health Maintenance Due Date Last Done Comments Cologuard 2008 Fecal Occult Blood Test 2008 Sigmoidoscopy 2008 DTap/Tdap Vaccines (2 - Td or Tdap) 08/19/2021 08/19/2011 Depression Monitoring 06/28/2023 06/28/2022 COVID-19 Vaccine ( season) 2024 06/19/2023, 05/05/2022, 06/08/2021, Additional history exists Mammogram 04/19/2024 04/19/2023, 04/01, 03/22/2023, Additional history exists GFR 05/26/2024 05/26/2023, 03/02, 12/13/2022, Additional history exists HbA1c 05/26/2024 05/26/2023, 06/02, 12/19/2020, Additional history exists TSH 11/13/2024 11/14/2023, 11/29, 11/11/2021, Additional history exists Albumin/Creatinine Ratio 12/13/2025 12/13/2022 [...] Not on filedocumented as of this encounter Visit Diagnoses Diagnosis HTN, goal below 130/80- Primary Unspecified essential hypertension Need for prophylactic vaccination and inoculation against influenza Prediabetes Other abnormal glucose Acquired hypothyroidism Unspecified hypothyroidism Degeneration of intervertebral disc of lumbar region with discogenic back pain and lower extremity pain S/P lumbar laminectomy Other postprocedural status Chronic diastolic heart failure (HCC) Chronic diastolic heart failure documented in this encounter Care Teams Raw Material Handler Relationship Specialty Start Date End Date Brian Salas DO [address] [place] [address] PCP - General Family Medicine 12/16/15 documented as of this encounter
--- OUTSIDE RECORDS SUMMARY | 2024-06-10 02:29 | External Medical Summary | Summary of Care ---
Author Name Unknown Organization [facility] Address [address] [place] [facility] [place] [address] Phone [phone] Care Team Providers Care Manager Data Warehouse Name Role Phone Brian Salas DO Primary Care Provider [phone] Reason for Visit * Reason Onset Date Comments Advice 05/21/2024 Encounter Details Date Type Department Care Team (Late st Contact Info) Description 05/21/2024 Telephone Family Practice [facility] [address] [place] [address] Brian Salas DO [address] [facility] [address] Advice Allergies Active Allergy Reactions Criticality Noted [...] (Neurontin)Indication s:Polyneuropathy in other diseases classified elsewhere ([facility]) Take 1 Cap by mouth at bedtime. 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 Form placed in scanning. * Telephone Encounter - Brian Salas DO - 05/25/2024 12:45 PM EDT I'll bring to you * Telephone Encounter - Rowena Kessler LPN - 05/25/2024 12:26 PM EDT Form received from [employer] for incontinence briefs. Placed on Dr. Salas's desk for review and signature. * Telephone Encounter - Kristina Britton CPhT - 05/22/2024 1:40 PM EDT Pt called stating she needs another script for the bariatric underwear. Please advise. Thank you, Kristina Britton Adult Services Librarian Centralized Clinical Pharmacy Services 05/22/2024,1:41 PM * Telephone Encounter - Alexis Siddiqui OSA - 05/21/2024 10:49 AM EDT Patient called stating she needs another script for the bariatric underwear documented in this encounter Plan of Treatment Upcoming Encounters Date Type Department Care Team (Late st Contact Info) Description 08/21/2024 8:30 AM EST Office Visit Cardiology, [facility] [address] [place] [address] Griselda Cody CRNP [address] [place] [address] 11/20/2024 10:00 AM EDT Office Visit Family Practice [facility] [address] [place] [address] Brian Salas, DO [address] [place] [address] 03/12/2025 11:20 AM EDT Office Visit Sleep Disorders Ctr [facility] [address] [place] [phone] Charlette Brannon, DO [address] [place] [address] 04/11/2025 8:20 AM EDT Office Visit Pulmonary Medicine, [facility] [address] [place] [address] Yo Abreu MD [address] [place] [address] 05/21/2025 9:25 AM EDT Office Visit Urogynecology [facility] [address] [place] [address] Del Baron MD [address] [place] [address] Nurse Trae Tucker [address] [place] [address] Scheduled Procedures Name Priority Associated Diagnoses Date/Ti [...] filedocumented as of this encounter Care Teams Manager Data Warehouse Relationship Specialty Start Date End Date Brian Salas DO [address] [place] [address] PCP - General Family Medicine 12/16/15 documented as of this encounter
--- OUTSIDE RECORDS SUMMARY | 2024-06-10 02:29 | External Medical Summary | Summary of Care ---
Author Name Unknown Organization [facility] Address [address] [place] [address] Phone [phone] Care Team Providers Care Electroencephalogram Technologist Name Role Phone Brian Salas DO Primary Care Provider [phone] Reason for Visit * Reason Onset Date Comments Medication Refill 05/21/2024 Encounter Details Date Type Department Care Team (Late st Contact Info) Description 05/21/2024 Refill Family Practice [facility] [place] [address] [facility] [place] [address] Brian Salas DO [address] [facility] [place] [address] Allergies Active Allergy Reactions Criticality Noted Date [...] as of this encounter (statuses as of 05/21/2024) Medications Medication Sig Dispensed Refills Start Date [...] (Neurontin)Indication s:Polyneuropathy in other diseases classified elsewhere ([facility]) Take 1 Cap by mouth at bedtime. 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, MDV , IM, 0.5 mL (Fluzone) 2017,09/10/2015,05/10/2014,05/18,05/05/2012,04/20/2011,05/15/2010 ,07/15/2009,05/22/2008,05/24/2007,08/2005 Seasonal Influenza Virus Vac cine, Unspecified Formulation 04/12/2022,04/09/2021,05/21/2020,08/02,04/20/2018,2017,04/26/2016 ,09/10/2015,05/10/2014,05/18/2013,0 11/2011,04/20/2011,05/15/2010, 0,07/15/2009,05/22/2008,05/24/2007,08/2005 Seasonal Influenza, PF, 6 M [...] encounter Miscellaneous Notes * Telephone Encounter - Edward Fisher uke driver - 05/21/2024 8:11 AM EDT Pt calling to request Levothyroxine 200mcg. Informed pt that RX is available at their pharmacy. Pt verbalized understanding and stated they will check with their pharmacy regarding this medication. Thank you, Marquise Fisher, Ict Customer Support Officer [facility] Centralized Clinical Pharmacy Services ([facility]PS) (Formerly Telepharmacy) 05/21/2024,8:12 AM documented in this encounter Plan of Treatment Upcoming Encounters Date Type Department Care Team (Late st Contact Info) Description 08/21/2024 8:30 AM EST Office Visit Cardiology, [facility] [address] [place] [address] Griselda Cody CRNP [address] [place] [address] 11/20/2024 10:00 AM EDT Office Visit Family Practice [facility] [place] [address] [place] [address] Brian Salas, DO [address] [place] [address] 03/12/2025 11:20 AM EDT Office Visit Sleep Disorders Ctr [facility] [address] [facility] [place] [address] Charlette Brannon DO [address] [place] [address] 04/11/2025 8:20 AM EDT Office Visit Pulmonary Medicine, [facility] [place] [address] Yo Abreu MD [address] [place] [address] 05/21/2025 9:25 AM EDT Office Visit Urogynecology [facility] [address] [place] [address] Del Baron MD [address] [place] [address] Nurse Trae Tucker [facility] [address] [place] [address] Scheduled Procedures Name Priority Associated Diagnoses Date/Ti [...] 06/28/2022, Additional history exists TSH 05/15/2025 05/15/2024, 04/1 11/2023, 12/13/2022, Additional history exists Albumin/Creatinine Ratio 12/13/2025 [...] filedocumented as of this encounter Care Teams Electroencephalogram Technologist Relationship Specialty Start Date End Date Brian Salas DO [address] [place] [address] PCP - General Family Medicine 12/16/15 documented as of this encounter
--- OUTSIDE RECORDS SUMMARY | 2024-06-10 02:29 | External Medical Summary | Summary of Care ---
Author Name Unknown Organization [facility] Address [address] [place] [place] [place] [address] Phone [phone] Care Team Providers Care Boiler Operator Name Role Phone Brian Salas DO Primary Care Provider [phone] Encounter Details Date Type Department Care Team (Late st Contact Info) Description 05/18/2024 Telephone Family Practice [facility] [place] [address] [place] [address] Brian Salas DO [address] [place] [address] Allergies Active Allergy Reactions Criticality Noted Date [...] as of this encounter (statuses as of 05/18/2024) Medications Medication Sig Dispensed Refills Start Date End Date Status lamoTRIgine (LAMICTAL) 200 MG TabletIndications:Sc hizoaffective disorder, chronic condition (HCC) TAKE 1 TABLET [...] (Neurontin)Indicatio ns:Polyneuropathy in other diseases classified elsewhere (HCC) Take 1 Cap by mouth at bedtime. [...] Oral Tablet (Betapace)Indication s:PAF (paroxysmal atrial 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) (HCC) TAKE 1/2 TABLET BY MOUTH TWICE A DAY *HOLD FOR HEART RATE LESS THAN 60 OR SYSTOLIC BLOOD PRESSURE LESS THAN 100 &NOTIFY SERVICE IF DOSE 28 Tablet 8 4 Active Montelukast Sodium 10 MG Oral Tablet (Singulair)Indicatio ns:Mixed rhinitis,Moderate persistent asthma without complication Take 1 Tablet by mouth at bedtime. 30 Tablet 6 4 Active Potassium Chloride ER 10 MEQ Oral Tablet Extended ReleaseIndications:H TN, goal below 140/90,PAF (paroxysmal atrial 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) (HCC),ROSALES [...] BY MOUTH DAILY 90 Tablet 4 Active Levothyroxine Sodium 200 MCG Oral Tablet (Levoxyl) Take 1 Tablet by mouth in the morning. (at least 30 min prior to breakfast or other meds). 90 Tablet 3 4 Active Levothyroxine Sodium 75 MCG Oral Tablet (Levoxyl) Take 1 Tablet by mouth in the morning. (at least 30 min prior to breakfast or other meds). Take in addition to 150 mcg dose. 30 Tablet 11 4 05/18/20 24 Discontinued Levothyroxine Sodium 150 MCG Oral Tablet (Levoxyl) Take 1 Tablet by mouth daily first thing in the morning. In addition to 75 mcg dose. 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 [...] as of this encounter (statuses as of 05/18/2024) Immunizations Name Administration Dates Next Due COVID-19 mRNA, LNP-s, No Pre serve, 2-Dose Series (Moderna) 11/03/2020,10/06/2020 COVID-19 mRNA, LNP-s, No Pre serve, 2-Dose Series (Pfizer) 06/08/2021 Covid-19, Mrna, Lnp-s, Pf, B ivalent, 30 Mcg, IM, 12 yrs and above (Pfizer) 05/05/2022 H1N1 2009 Influenza, IM 08/15/2009 Hepatitis B, 20+ yrs 01/16/2014,04/06/2013,03/05 PPD 02/27/2013 Pneumococcal Conjugate Vacci ne, 20-valent ([id number]) 03/05/2022 Pneumococcal Polysaccharide PPV23 (Pneumovax) 03/31/2009 Seasonal [...] on file documented as of this encounter Plan of Treatment Upcoming Encounters Date Type Department Care Team (Late st Contact Info) Description 08/21/2024 8:30 AM EST Office Visit Cardiology, [facility] [address] [facility] [place] [address] Griselda Cody CRNP [address] [facility] [place] [address] 11/20/2024 10:00 AM EDT Office Visit Family Practice [place] [place] [address] [place] [address] Brian Salas, DO [address] [place] [address] 03/12/2025 11:20 AM EDT Office Visit Sleep Disorders Ctr [facility] [address] [facility] [place] [phone] Charlette Brannon DO [address] [place] [address] 04/11/2025 8:20 AM EDT Office Visit Pulmonary Medicine, [facility] [address] [place] [address] Yo Abreu MD [address] [address] 05/21/2025 9:25 AM EDT Office Visit Urogynecology [facility] [address] [place] [address] Del Baron MD [address] [place] [address] Nurse Trae Tucker [facility] [address] [place], [place] [address] Scheduled Orders Name Type Priority Associated Diagnoses Orde r Schedule TSH WITH FREE T4 IF INDICATED Lab Routine Acquired hypothyroidism Expected: 07/18/2024 (Approximate), Expires: 05/18/2025 Scheduled Procedures Name Priority Associated Diagnoses Date/Ti [...] Ratio 12/13/2025 12/13/2022 Lipid Panel 09/11/2026 09/11/2021, 1111/2020, 04/17/2021, Additional history exists Colonoscopy 12/04/2031 12/03/2021, 0 11/2021, 06/07/2018, Additional history exists Colorectal Cancer [...] as of this encounter Visit Diagnoses Diagnosis Acquired hypothyroidism- Primary Unspecified hypothyroidism documented in this encounter Care Teams Boiler Operator Relationship Specialty Start Date End Date Brian Salas DO [address] [place] [address] PCP - General Family Medicine 12/16/15 documented as of this encounter
--- OUTSIDE RECORDS SUMMARY | 2024-06-10 02:29 | External Medical Summary | Summary of Care ---
Author Name Unknown Organization [facility] Address [address] [facility] [place] [address] Phone [phone] Care Team Providers Care Management Coordinator Name Role Phone Brian Salas DO Primary Care Provider [phone] Encounter Details Date Type Department Care Team (Late st Contact Info) Description 05/18/2024 Telephone Family Practice [facility] [place] [address] [place] [address] Brian Salas DO [address] [place] [address] Allergies Active Allergy Reactions Criticality Noted Date [...] disorder with single episode, in partial remission (HCC) Take 1 Tab by mouth daily. 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 Patient has no further questions. documented in this encounter Plan of Treatment Upcoming Encounters Date Type Department Care Team (Late st Contact Info) Description 08/21/2024 8:30 AM EST Office Visit Cardiology, [facility] [address] [place] [address] Griselda Cody CRNP [address] [place] [address] 11/20/2024 10:00 AM EDT Office Visit Family Practice [facility] [address] [place] [address] Brian Salas, DO [address] [place] [address] 03/12/2025 11:20 AM EDT Office Visit Sleep Disorders Ctr [facility] [address] [facility] [place] [phone] Charlette Brannon, DO [address] [place] [address] 04/11/2025 8:20 AM EDT Office Visit Pulmonary Medicine, [facility] [place] [address] Yo Abreu MD [address] [place] [address] 05/21/2025 9:25 AM EDT Office Visit Urogynecology [facility] [address] [facility] [place] [address] Del Baron MD [address] [place] [address] Nurse Trae Tucker [facility] [address] [place], [place] [address] Scheduled Orders Name Type Priority Associated Diagnoses [...] hypothyroidism documented in this encounter Care Teams Management Coordinator Relationship Specialty Start Date End Date Brian Salas DO [address] [place] [address] PCP - General Family Medicine 12/16/15 documented as of this encounter
--- OUTSIDE RECORDS SUMMARY | 2024-06-10 02:29 | External Medical Summary | Summary of Care ---
Author Name Unknown Organization [facility] Address [address] [facility] [place] [address] Phone [phone] Care Team Providers Care Wool Hat Forming Machine Tender Name Role Phone Brian Salas DO Primary Care Provider [phone] Reason for Visit * Reason Onset Date Comments Advice 05/21/2024 Encounter Details Date Type Department Care Team (Late st Contact Info) Description 05/21/2024 Telephone Family Practice [facility] [address] [place] [address] Brian Salas DO [address] [facility] [address] Advice Allergies Active Allergy Reactions Criticality Noted [...] (Neurontin)Indication s:Polyneuropathy in other diseases classified elsewhere ([facility]) Take 1 Cap by mouth at bedtime. 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 Placed on Dr. Salas's desk for review and signature. * Telephone Encounter - Kristina Britton CPhT - 05/22/2024 1:40 PM EDT Pt called stating she needs another script for the bariatric underwear. Please advise. Thank you, Kristina Britton Mapping Technician Centralized Clinical Pharmacy Services 05/22/2024,1:41 PM * Telephone Encounter - Alexis Siddiqui OSA - 05/21/2024 10:49 AM EDT Patient called stating she needs another script for the bariatric underwear documented in this encounter Plan of Treatment Upcoming Encounters Date Type Department Care Team (Late st Contact Info) Description 08/21/2024 8:30 AM EST Office Visit Cardiology, [facility] [address] [place] [address] Griselda Cody CRNP [address] [place] [address] 11/20/2024 10:00 AM EDT Office Visit Family Practice [facility] 200 [facility] [place] [address] Brian Salas, DO [address] [facility] [place] [address] 03/12/2025 11:20 AM EDT Office Visit Sleep Disorders Ctr [facility] [address] [facility] [place] [phone] Charlette Brannon DO 132 [facility] [place] [address] 04/11/2025 8:20 AM EDT Office Visit Pulmonary Medicine, [facility] 132 [facility] [place] [address] Yo Abreu MD [address] [place] [address] 05/21/2025 9:25 AM EDT Office Visit Urogynecology [facility] [address] [facility] [place] [address] Del Baron MD [address] [place] [address] TuckerNurse Trae dunaway [facility] [place] [address] Scheduled Procedures Name Priority Associated Diagnoses Date/Ti [...] filedocumented as of this encounter Care Teams Wool Hat Forming Machine Tender Relationship Specialty Start Date End Date Brian Salas DO [address] [place] [address] PCP - General Family Medicine 12/16/15 documented as of this encounter
--- OUTSIDE RECORDS SUMMARY | 2024-06-10 02:29 | External Medical Summary | Summary of Care ---
Author Name Unknown Organization [facility] Address [address] [place] [place] [place] [address] Phone [phone] Care Team Providers Care Manager Freelance Name Role Phone Brian Salas DO Primary Care Provider [phone] Reason for Visit * Reason Onset Date Comments Advice 05/21/2024 Encounter Details Date Type Department Care Team (Late st Contact Info) Description 05/21/2024 Telephone Family Practice [facility] [address] [place] [address] Brian Salas DO [address] [facility] [address] Advice Allergies Active Allergy Reactions Criticality Noted [...] (Neurontin)Indication s:Polyneuropathy in other diseases classified elsewhere ([facility]) Take 1 Cap by mouth at bedtime. 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 Placed on Dr. Salas's desk for review and signature. * Telephone Encounter - Kristina Britton CPhT - 05/22/2024 1:40 PM EDT Pt called stating she needs another script for the bariatric underwear. Please advise. Thank you, Kristina Britton Behavioral Health Specialist Centralized Clinical Pharmacy Services 05/22/2024,1:41 PM * Telephone Encounter - Alexis Siddiqui OSA - 05/21/2024 10:49 AM EDT Patient called stating she needs another script for the bariatric underwear documented in this encounter Plan of Treatment Upcoming Encounters Date Type Department Care Team (Late st Contact Info) Description 08/21/2024 8:30 AM EST Office Visit Cardiology, [facility] [address] [place] [address] Griselda Cody CRNP [address] [place] [address] 11/20/2024 10:00 AM EDT Office Visit Family Practice [facility] 200 [facility] [place] [address] Brian Salas, DO [address] [facility] [place] [address] 03/12/2025 11:20 AM EDT Office Visit Sleep Disorders Ctr [facility] [address] [place] [phone] Charlette Brannon, DO [address] [place] [address] 04/11/2025 8:20 AM EDT Office Visit Pulmonary Medicine, [facility] [address] [place] [address] Yo Abre[facility] [address] 05/21/2025 9:25 AM EDT Office Visit Urogynecology [facility] [address] [place] [address] Del Baron MD [address] [place] [address] Nurse Trae Tucker [facility] [address] [place] [address] Scheduled Procedures Name Priority Associated Diagnoses Date/Ti [...] 04/17/2021, Additional history exists Colonoscopy 12/04/2031 12/03/2021, 050 11/2021, 06/07/2018, Additional history exists Colorectal Cancer [...] as of this encounter Care Teams Manager Freelance Relationship Specialty Start Date End Date Brian Salas DO [address] [place] [address] PCP - General Family Medicine 12/16/15 documented as of this encounter
--- OUTSIDE RECORDS SUMMARY | 2024-06-10 02:30 | External Medical Summary | Summary of Care ---
Author Name Unknown Organization [facility] Address [address] [facility] [place] [address] Phone [phone] Care Team Providers Care Information Systems Manager Name Role Phone AramisjajaronnieBrian Jasson PRATHER Primary Care Provider [phone] Encounter Details Date Type Department Care Team (Late st Contact Info) Description 05/07/2024 Orders Only PATIENT PORTAL DO NOT DELETE THIS DEPT USED BY [place] [id number] Allergies Active Allergy Reactions Criticality Noted Date [...] as of this encounter (statuses as of 05/07/2024) Medications Medication Sig Dispensed Refills Start Date [...] (Neurontin)Indication s:Polyneuropathy in other diseases classified elsewhere ([facility]) Take 1 Cap by mouth at bedtime. 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 30 Tab 11 06/05/2021 Active Systane 0.4-0.3 % Ophthalmic Solution (Polyethyl Glycol-Propyl Glycol) Instill 1 Drop into both eyes as needed for Dry eyes (may use 3- 4 times daily). Active Paliperidone ER 9 MG Oral Tablet Extended Release 24 Hour Take by mouth . Acti ve Vitamin D3 50 MCG (1999 UT) Oral Capsule Take by mouth 1 [...] the morning. 16.9 mL 5 07/05/2023 Active Additional Information Patient not taking.Reported on 05/03/2024 hydrOXYzine HCl 50 MG Oral Tablet Take [...] IF DOSE 28 Tablet 8 11/16/2023 Active Levothyroxine Sodium 75 MCG Oral Tablet (Levoxyl) Take 1 Tablet by mouth in the morning. (at least 30 min prior to breakfast or other meds). Take in addition to 150 mcg dose. 30 Tablet 11 11/16/2023 Active Levothyroxine Sodium 150 MCG Oral Tablet (Levoxyl) Take 1 Tablet by mouth daily first thing in the morning. In addition to 75 mcg dose. 90 Tablet 1 11/17/2023 Active Montelukast Sodium 10 MG Oral Tablet (Singulair)Indication s:Mixed rhinitis,Moderate persistent asthma without complication Take 1 Tablet by mouth at bedtime. 30 Tablet 6 01/11/2024 Active Rosuvastatin Calcium 5 MG Oral Tablet (Crestor)Indications: Dyslipidemia, goal LDL below 130 TAKE 1 TABLET BY MOUTH DAILY 90 Tablet 02/08/2024 Active Furosemide 40 MG Oral Tablet (Lasix)Indications:He art failure, diastolic, with acute decompensation (HCC) TAKE 1 TABLET BY MOUTH TWICE A DAY 180 Tablet 1 02/29/2024 Active Additional Information Patient not taking.Reported on 04/10/2024 Potassium Chloride ER 10 MEQ Oral Tablet [...] every evening. 90 Tablet 3 05/03/2024 Active documented as of this encounter (statuses as of 05/07/2024) Active Problems Problem Noted Date Diagnosed Date [...] as of this encounter (statuses as of 05/07/2024) Resolved Problems Problem Noted Date Diagnosed Date [...] dysfunction) 01/31/2013 11/29/2016 History of hearing loss 01/31/2013 06/01/2023 Otitis media with effusion 01/31/2013 0 12/20/2014 Pulsatile tinnitus 01/31/2013 7 Incidental lung nodule, > 3mm and < 8mm 07/19/2011 03/27/2019 Overview: RUL f/u CT 09/2011 Adult body mass index 50.0-59.9 05/19/2011 02/16/2012 History of nonadherence to medical treatment 1 09/25/2012 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/31/2010 10/08/19 11 intermediate current use of ant icoagulant therapy 08/31/2010 [...] as of this encounter (statuses as of 05/07/2024) Immunizations Name Administration Dates Next Due COVID-19 mRNA, LNP-s, No Pre serve, 2-Dose Series (Moderna) 11/03/2020,10/06/2020 COVID-19 mRNA, LNP-s, No Pre serve, 2-Dose Series (Pfizer) 06/08/2021 Covid-19, Mrna, Lnp-s, Pf, B ivalent, 30 Mcg, IM, 12 yrs and above (Pfizer) 05/05/2022 H1N1 2009 Influenza, IM 08/15/2009 Hepatitis B, 20+ yrs 01/16/2014,04/06/2013,03/05 PPD 02/27/2013 Pneumococcal Conjugate Vacci ne, 20-valent ([id number]) 03/05/2022 Pneumococcal Polysaccharide PPV23 (Pneumovax) 03/31/2009 Seasonal Influenza Vac., MDV , IM, 0.5 mL (Fluzone) 2017,09/10/2015,05/10/2014,05/18,05/05/2012,04/20/2011,05/15/2010 ,07/15/2009,05/22/2008,05/24/2007,08/2005 Seasonal Influenza Virus Vac cine, Unspecified Formulation 04/12/2022,04/09/2021,05/21/2020,08/02,04/20/2018,2017,04/26/2016 ,09/10/2015,05/10/2014,05/18/2013,11/2011,04/20/2011,05/15/2010, 0,07/15/2009,05/22/2008,05/24/2007,08/2005 Seasonal Influenza, PF, 6 M & above, IM , (FluLaval or Fluzone) 04/12/2022,04/09/2021,05/21/2020,08/02,04/20/2018 Seasonal Influenza, Quadriva lent, No Preserve, IM 04/01/2023,04/26/2016 Seasonal Influenza, Quadriva lent,with Preserve, 3 yr & above, IM 2017 TDAP, Age 7 and older, IM (Adacel) [...] Care Team (Late st Contact Info) Description 05/15/2024 1:00 PM EDT Office Visit Family Practice [facility] [address] [facility] [place], [place] [address] Brian Salas, DO [address] [facility] [place] [address] 08/21/2024 8:30 AM EST Office Visit Cardiology, [facility] [address] [place] [address] Griselda Cody CRNP [address] [place] [address] 03/12/2025 11:20 AM EDT Office Visit Sleep Disorders Ctr [facility] [address] [place] [phone] Charlette Brannon, [address] [place] [address] 04/11/2025 8:20 AM EDT [facility] [address] [place] [address] Yo Abreu MD [address] [place] [address] 05/21/2025 9:25 AM EDT Office Visit Urogynecology [facility] [address] [place] [address] Del Baron MD [address] [place] [address] Nurse Garrett Urojake Drake [address] [place], [place] [address] Scheduled Procedures Name Priority Associated Diagnoses Date/Ti me COLONOSCOPY FLEXIBLE PROXIMA L DIAGNOSTIC Recall Special screening for malignant neoplasms, colon Health Maintenance Due Date Last Done Comments Cologuard 2008 Fecal Occult Blood Test 2008 Sigmoidoscopy 2008 DTap/Tdap Vaccines (2 - Td or Tdap) 08/19/2021 08/19/2011 Depression Monitoring 06/28/2023 06/28/2022 COVID-19 Vaccine ( season) 2024 06/19/2023, 05/05/2022, 06/08/2021, Additional history exists Influenza Vaccine (FLU shot) (#1) 2024 04/21/2023, 04/01/2023, 04/12/2022, Additional history exists Mammogram 04/19/2024 04/19/2023, 04/01, [...] (6 to 64 Years) Completed 03/05/2022, 03/31/2009 HPV (Gardasil) Vaccine Aged Out No lo nger eligible based on patient's age to complete this topic MENINGOCOCCAL (MENACTRA/MENVEO) Aged Out No longer eligible based on patient's age to complete this topic documented as of this encounter Medical Devices Not on filedocumented as of this encounter Care Teams Information Systems Manager Relationship Specialty Start Date End Date Brian Salas DO [address] [place] [address] PCP - General Family Medicine 12/16/15 documented as of this encounter
--- OUTSIDE RECORDS SUMMARY | 2024-06-10 02:30 | External Medical Summary | Summary of Care ---
Author Name Unknown Organization [facility] Address [address] [place] [address] Phone [phone] Care Team Providers Care Patient Advocate Name Role Phone AramisjajaronnieBrian Jasson PRATHER Primary Care Provider [phone] Reason for Visit * Reason Comments eRx-Medication Refill Encounter Details Date Type Department Care Team (Late st Contact Info) Description 05/03/2024 Refill Cardiology, [facility] [address] [place] [address] Ritu Heard CRNP [address] [place] [facility] [address] Encounter for long-term (current) use of medications*; Dyslipidemia, goal LDL below 130 Allergies Active Allergy Reactions Criticality Noted Date [...] End Date Status lamoTRIgine (LAMICTAL) 200 MG TabletIndications:S chizoaffective disorder, chronic condition (HCC) TAKE 1 TABLET BY MOUTH TWICE DAILY MOOD DISORDER 180 Tab 1 8 Active Vitamin B-2 100 MG Oral Tablet (vitamin B-2) TAKE 4 TABLETS (400MG) BY MOUTH DAILY 112 Tab 4 0 Active Mirtazapine 30 MG Oral Tablet (REMERON) TAKE 1 TABLET BY MOUTH EVERYDAY AT BEDTIME 30 Tab 5 0 Active Melatonin 3 MG Oral CapsuleIndications: Primary insomnia Take 1 Cap by mouth at bedtime. 90 Cap 3 1 Active Gabapentin 300 MG Oral Capsule (Neurontin)Indicati ons:Polyneuropathy in other diseases classified elsewhere ([facility]) Take 1 Cap by mouth at bedtime. 30 Cap 5 1 Active Sertraline HCl 100 MG Oral Tablet (Zoloft)Indications :Major depressive disorder with single episode, in partial remission ([facility]) Take 1 Tab by mouth daily. 30 [...] 30 MG Oral Capsule Delayed Release Particles (Cymbalta)Indicatio ns:Chronic bilateral low back pain with right-sided sciatica TAKE 1 CAPSULE BY MOUTH DAILY *DO NOT CUT, CRUSH OR CHEW* 28 Capsule 9 3 Active Levocetirizine Dihydrochloride 5 MG Oral Tablet (Xyzal Allergy 24HR)Indications:Mi xed rhinitis Take 1 Tablet by mouth every evening. 30 Tablet 11 3 Active Paliperidone ER 6 MG Oral Tablet Extended Release 24 Hour (Invega) 3 Active Perphenazine 2 MG Oral Tablet (Trilafon) 3 Active Fluticasone Propionate 50 MCG/ACT Nasal Suspension (Flonase) Administer 2 Sprays into each nostril in the morning. 16 g 11 3 Active Triamcinolone Acetonide 55 MCG/ACT Nasal Aerosol (Nasacort Allergy 24HR)Indications:Al lergic rhinitis, unspecified seasonality, unspecified trigger Administer 2 Sprays into nostril in the morning. 16.9 mL 5 3 Active Additional Information Patient not taking.Reported on 05/03/2024 hydrOXYzine HCl 50 MG Oral Tablet Take 1 Tablet by mouth every 6 hours as needed for Itching. 60 Tablet 3 3 Active Triamcinolone Acetonide 0.5 % External Cream (Aristocort)Indicat ions:Intrinsic eczema APPLY TOPICALLY TO AFFECTED AREA TWICE A DAY FOR 14 DAYS 45 g 1 4 Active Hydroxychloroquine Sulfate 200 MG Oral Tablet (Plaquenil) TAKE 2 TABLETS BY MOUTH EVERY NIGHT AT BEDTIME 56 Tablet 2 4 Active hydrALAZINE HCl 50 MG Oral Tablet (Apresoline)Indicat ions:HTN, goal below 140/90,Lower extremity edema,PAF (paroxysmal atrial 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) (HCC),ROSALES (dyspnea on exertion),Dyslipide hill, goal LDL below 100 TAKE 1 TABLET BY MOUTH THREE TIMES A DAY 270 Tablet 3 4 Active hydroCHLOROthiazide 12.5 MG Oral Capsule (Hydrodiuril)Indica tions:HTN, goal below 140/90,Shortness of breath TAKE 1 CAPSULE BY MOUTH EVERY MORNING 90 Capsule 3 4 Active Carvedilol 25 MG Oral Tablet (Coreg) TAKE 1 TABLET BY MOUTH TWICE A DAY WITH FOOD 56 Tablet 8 4 Active Sotalol HCl 80 MG Oral Tablet (Betapace)Indicatio ns:PAF (paroxysmal atrial 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) (HCC) TAKE 1/2 TABLET [...] Active Montelukast Sodium 10 MG Oral Tablet (Singulair)Indicati ons:Mixed rhinitis,Moderate persistent asthma without complication Take 1 Tablet by mouth at bedtime. 30 Tablet 6 4 Active Furosemide 40 MG Oral Tablet (Lasix)Indications: Heart failure, diastolic, with acute decompensation (HCC) TAKE 1 TABLET BY MOUTH TWICE A DAY 180 Tablet 1 4 Active Additional Information Patient not taking.Reported on 04/10/2024 Potassium Chloride ER 10 MEQ Oral Tablet Extended ReleaseIndications: HTN, goal below 140/90,PAF (paroxysmal atrial 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) (HCC),ROSALES (dyspnea on exertion) TAKE 1 TABLET BY MOUTH DAILY 90 Tablet 1 4 Active Breo Ellipta 200-25 MCG/ACT Inhalation Aerosol Powder Breath Activated (fluticasone furoate-vilanterol) Indications:Moderat e persistent asthma without complication INHALE 1 PUFF BY MOUTH DAILY 60 Each 5 4 Active Losartan Potassium 100 MG Oral Tablet (Cozaar) TAKE 1 TABLET BY MOUTH DAILY 90 Tablet 1 4 Active tiZANidine HCl 4 MG Oral Tablet (Zanaflex)Indicatio ns:Acute pain of left shoulder TAKE 1 TABLET BY MOUTH EVERY 8 HOURS NEEDED FOR MUSCLE SPASMS 30 Tablet 5 4 Active Mirabegron ER 50 MG Oral Tablet Extended Release 24 Hour (Myrbetriq) Take 1 Tablet by mouth every evening. 90 Tablet 3 4 Active Rosuvastatin Calcium 5 MG Oral Tablet (Crestor)Indication s:Dyslipidemia, goal LDL below 130 TAKE 1 TABLET BY MOUTH DAILY 90 Tablet 4 Active Rosuvastatin Calcium 5 MG Oral Tablet (Crestor)Indication s:Dyslipidemia, goal LDL below 130 TAKE 1 TABLET BY MOUTH DAILY 90 Tablet 4 05/07/20 24 Discontinued documented as of this encounter [...] 1 09/25/2012 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/31/2010 10/08/19 11 jail current use of ant icoagulant therapy 08/31/2010 05/19/2011 Overview: ICD-10 update of inactive term Dysfunction of eustachian tube 08/17/2010 05/19/2011 Hypersomnia with sleep apnea 08/17/2010 01/15/2023 OTITIS MEDIA, CHRONIC, LEFT 08/17/2010 05/19/2011 Abnormality of gait 03/24/2010 06/18/20 14 ACTIVE CASE MANAGEMENT Kadie David [id number] 01/06/20 10 05/18/2010 Overview: ACTIVE CASE MANAGEMENT Kadie Martínezace [phone] Dyslipidemia, goal LDL below 130 [...] PPD 02/27/2013 Pneumococcal Conjugate Vacci ne, 20-valent ([id number]) 03/05/2022 Pneumococcal Polysaccharide PPV23 (Pneumovax) 03/31/2009 Seasonal Influenza Vac., MDV , IM, 0.5 mL (Fluzone) 2017,09/10/2015,05/10/2014,05/18,05/05/2012,04/20/2011,05/15/2010 ,07/15/2009,05/22/2008,05/24/2007,08/2005 Seasonal Influenza Virus Vac cine, Unspecified Formulation 04/12/2022,04/09/2021,05/21/2020,08/02,04/20/2018,2017,04/26/2016 ,09/10/2015,05/10/2014,05/18/2013,100 11/2011,04/20/2011,05/15/2010, 0,07/15/2009,05/22/2008,05/24/2007,08/2005 Seasonal Influenza, PF, 6 M [...] encounter Miscellaneous Notes * Telephone Encounter - Griselda Kennedy CRNP - 05/07/2024 1:04 PM EDT Signed Prescriptions: Disp Refills Rosuvastatin Calcium 5 MG Oral Tablet (Cre*90 Tab*0 Sig: TAKE 1 TABLET BY MOUTH DAILY Authorizing Provider: GRISELDA KENNEDY * Telephone Encounter - Magaly Gamble texture artist - 05/04/2024 3:58 PM EDT Informed pharmacy of the needed appointment and labs. They will inform the patient. Magaly Monge [facility] 05/04/2024 3:58 PM * Telephone Encounter - Ritu Heard CRNP - 05/04/2024 2:40 PM EDT Pending Prescriptions: Disp Refills Rosuvastatin Calcium 5 MG Oral Tablet (Cre*90 Tab*0 Sig: TAKE 1 TABLET BY MOUTH DAILY * Telephone Encounter - Becca Resendez CPhT - 05/04/2024 2:27 PM EDTPending Prescriptions: Disp Refills Rosuvastatin Calcium 5 MG Oral Tablet (Cre*90 Tab*0 Sig: TAKE 1 TABLET BY MOUTH DAILY * Telephone Encounter - Becca Resendez CPhT - 05/04/2024 2:26 PM EDT Received message from [facility] regarding patient needing an appointment. Call Placed to patient, transferred to scheduling scheduling. Thank you, Becca Resendez CPhT [facility] ([facility]) 05/04/2024,2:26 PM * Telephone Encounter - Gina Chiu RPh - 05/04/2024 2:18 PM EDTPending Prescriptions: Disp Refills Rosuvastatin Calcium 5 MG Oral Tablet (Cre*90 Tab*0 Sig: TAKE 1 TABLET BY MOUTH DAILY * Telephone Encounter - Gina Chiu RPh - 05/04/2024 2:03 PM EDT Previous provider no longer at office. Unable to authorize medication refills for pended medication(s) at this time. Part of the protocol criteria used for refill authorization was not satisfied. Per refill protocol patient should have lipid panel and OV on file within past year. Reviewed AMP report, Care Gaps/Health Maintenance, medications list, and for any routine labs typically ordered for this patient. Lab orders placed. Please contact patient to schedule office visit with her CARDIOLOGY and advise of labs ordered for blood draw.. Recommend patient to fast if able for labs. Patient may still have water and regular medications. Advise to obtain labs before requesting the next refill. Last Visit: 11/30/2022 (in office), Visit date not found (telemedicine) Next Visit: Visit date not found After contacting patient, please forward request to ZION Weber. Thanks, Gina Chiu, PharmD Clinical Pharmacist [facility] ([facility]) 05/04/2024, 2:11 PM documented in this encounter Plan of Treatment Upcoming Encounters Date Type Department Care Team (Late st Contact Info) Description 05/15/2024 1:00 PM EDT Office Visit [facility] Parisa Monteneg[place] [address] [place] [address] Brian Salas, DO [address] [place] [address] 08/21/2024 8:30 AM EST Office Visit Cardiology, [facility] [address] [facility] [place] [address] Griselda Kennedy CRNP [address] [facility] [place] [address] 03/12/2025 11:20 AM EDT Office Visit [facility] [address] [facility] [phone] Charlette Brannon, [address] [facility] [place] [address] 04/11/2025 8:20 AM EDT Office Visit Pulmonary Medicine, [facility] [address] [facility] [place] [address] Yo Abreu MD [address] [place] [address] 05/21/2025 9:25 AM EDT Office Visit Urogynecology [facility] [address] [facility] [place] [address] Del Baron MD [address] [place] [address] [facility] duna[facility] [address] [facility] [place] [address] Scheduled Orders Name Type Priority Associated Diagnoses Orde r Schedule LIPID PANEL WITH DIRECT LDL IF TG IS HIGH Lab Routine Encounter for long-term (current) use of medications Expected: 05/11/2024 (Approximate), Expires: 05/04/2025 Scheduled Procedures Name Priority Associated Diagnoses Date/Ti [...] 04/17/2021, Additional history exists Colonoscopy 12/04/2031 12/03/2021, 05/0 11/2021, 06/07/2018, Additional history exists Colorectal Cancer [...] as of this encounter Visit Diagnoses Diagnosis Encounter for long-term (current) use of medications- Primary Encounter for long-term (current) use of other medications Dyslipidemia, goal LDL below 130 Other and unspecified hyperlipidemia documented in this encounter Care Teams Patient Advocate Relationship Specialty Start Date End Date Brian Salas DO [address] [place] [address] PCP - General Family Medicine 12/16/15 documented as of this encounter
--- OUTSIDE RECORDS SUMMARY | 2024-06-10 02:30 | External Medical Summary | Summary of Care ---
Author Name Unknown Organization [facility] Address [address] [facility] [place] [address] Phone [phone] Care Team Providers Care Material Loader Name Role Phone Brian Salas DO Primary Care Provider [phone] Reason for Visit * Reason Onset Date Comments Test Results 02/03/2024 Encounter Details Date Type Department Care Team (Late st Contact Info) Description 02/03/2024 Telephone Family Practice [facility] [address] [place] [address] Brian Salas DO [address] [facility] [address] Test Results Allergies Active Allergy Reactions Criticality Noted Date [...] as of this encounter (statuses as of 05/04/2024) Medications Medication Sig Dispensed Refills Start Date End Date Status lamoTRIgine (LAMICTAL) 200 MG TabletIndications:S chizoaffective disorder, chronic condition (HCC) TAKE 1 TABLET BY MOUTH TWICE DAILY MOOD DISORDER 180 Tab 1 02/24/20 18 Active Vitamin B-2 100 MG Oral Tablet (vitamin B-2) TAKE 4 TABLETS (400MG) BY MOUTH DAILY 112 Tab 4 05/29/20 20 Active Mirtazapine 30 MG Oral Tablet (REMERON) TAKE 1 TABLET BY MOUTH EVERYDAY AT BEDTIME 30 Tab 5 07/30/20 20 Active Melatonin 3 MG Oral CapsuleIndications: Primary insomnia Take 1 Cap by mouth at bedtime. 90 Cap 3 02/05/20 21 Active Gabapentin 300 MG Oral Capsule (Neurontin)Indicati ons:Polyneuropathy in other diseases classified elsewhere (HCC) Take 1 Cap by mouth at bedtime. 30 Cap 5 05/11/20 21 Active Sertraline HCl 100 MG Oral Tablet (Zoloft)Indications :Major depressive disorder with single episode, in partial remission (HCC) Take 1 Tab by mouth daily. 30 Tab 11 06/05/20 21 Active Systane 0.4-0.3 % Ophthalmic Solution (Polyethyl Glycol-Propyl Glycol) Instill 1 Drop into both eyes as needed for Dry eyes (may use 3- 4 times daily). Active Paliperidone ER 9 MG Oral Tablet Extended Release 24 Hour Take by mouth . Active Vitamin D3 50 MCG (2000 UT) Oral Capsule Take by mouth 1 Capsule in the morning. 30 Capsule 5 11/14/19 22 Active BiPAP every night at bedtime . Active Vitron-C 65-125 MG Oral Tablet (Iron-Vitamin C) Take by mouth 1 Tablet in the morning AND 1 Tablet before bedtime. 180 Tablet 3 03/05/20 22 Active busPIRone HCl 10 MG Oral Tablet (Buspar) 06/04/20 22 Active Perphenazine 8 MG Oral Tablet 06/04/20 22 Active Ventolin HFA 108 (90 Base) MCG/ACT Inhalation Aerosol Solution INHALE 2 PUFFS BY MOUTH EVERY FOUR HOURS NEEDED FOR WHEEZING 18 g 5 09/16/19 23 Active Pantoprazole Sodium 40 MG Oral Tablet Delayed Release (Protonix) Take 1 Tablet by mouth in the morning. 90 Tablet 3 12/14/19 23 Active DULoxetine HCl 30 MG Oral Capsule Delayed Release Particles (Cymbalta)Indicatio ns:Chronic bilateral low back pain with right-sided sciatica TAKE 1 CAPSULE BY MOUTH DAILY *DO NOT CUT, CRUSH OR CHEW* 28 Capsule 9 02/12/20 23 Active Levocetirizine Dihydrochloride 5 MG Oral Tablet (Xyzal Allergy 24HR)Indications:Mi xed rhinitis Take 1 Tablet by mouth every evening. 30 Tablet 11 03/08/20 23 Active Paliperidone ER 6 MG Oral Tablet Extended Release 24 Hour (Invega) 06/30/20 Active Perphenazine 2 MG Oral Tablet (Trilafon) 06/30/20 23 Active Fluticasone Propionate 50 MCG/ACT Nasal Suspension (Flonase) Administer 2 Sprays into each nostril in the morning. 16 g 11 07/05/20 23 Active Triamcinolone Acetonide 55 MCG/ACT Nasal Aerosol (Nasacort Allergy 24HR)Indications:Al lergic rhinitis, unspecified seasonality, unspecified trigger Administer 2 Sprays into nostril in the morning. 16.9 mL 5 07/05/20 23 Active Additional Information Patient not taking.Reported on 05/03/2024 hydrOXYzine HCl 50 MG Oral Tablet Take 1 Tablet by mouth every 6 hours as needed for Itching. 60 Tablet 3 07/28/20 23 Active Triamcinolone Acetonide 0.5 % External Cream (Aristocort)Indicat ions:Intrinsic eczema APPLY TOPICALLY TO AFFECTED AREA TWICE A DAY FOR 14 DAYS 45 g 1 08/04/19 24 Active Hydroxychloroquine Sulfate 200 MG Oral Tablet (Plaquenil) TAKE 2 TABLETS BY MOUTH EVERY NIGHT AT BEDTIME 56 Tablet 2 08/29/19 24 Active hydrALAZINE HCl 50 MG Oral Tablet (Apresoline)Indicat ions:HTN, goal below 140/90,Lower extremity edema,PAF (paroxysmal atrial 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) (HCC),ROSALES (dyspnea on exertion),Dyslipide hill, goal LDL below 100 TAKE 1 TABLET BY MOUTH THREE TIMES A DAY 270 Tablet 3 09/23/19 24 Active hydroCHLOROthiazide 12.5 MG Oral Capsule (Hydrodiuril)Indica tions:HTN, goal below 140/90,Shortness of breath TAKE 1 CAPSULE BY MOUTH EVERY MORNING 90 Capsule 3 09/23/19 24 Active Carvedilol 25 MG Oral Tablet (Coreg) TAKE 1 TABLET BY MOUTH TWICE A DAY WITH FOOD 56 Tablet 8 11/16/19 24 Active Sotalol HCl 80 MG Oral Tablet (Betapace)Indicatio ns:PAF (paroxysmal atrial 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) (HCC) TAKE 1/2 TABLET BY MOUTH TWICE A DAY *HOLD FOR HEART RATE LESS THAN 60 OR SYSTOLIC BLOOD PRESSURE LESS THAN 100 &NOTIFY SERVICE IF DOSE 28 Tablet 8 11/16/19 24 Active Levothyroxine Sodium 75 MCG Oral Tablet (Levoxyl) Take 1 Tablet by mouth in the morning. (at least 30 min prior to breakfast or other meds). Take in addition to 150 mcg dose. 30 Tablet 11 11/16/19 24 Active Levothyroxine Sodium 150 MCG Oral Tablet (Levoxyl) Take 1 Tablet by mouth daily first thing in the morning. In addition to 75 mcg dose. 90 Tablet 1 11/17/19 24 Active Montelukast Sodium 10 MG Oral Tablet (Singulair)Indicati ons:Mixed rhinitis,Moderate persistent asthma without complication Take 1 Tablet by mouth at bedtime. 30 Tablet 6 01/11/20 24 Active Rosuvastatin Calcium 5 MG Oral Tablet (Crestor)Indication s:Dyslipidemia, goal LDL below 130 TAKE 1 TABLET BY MOUTH DAILY 90 Tablet 3 03/08/20 23 024 Discontinued Incruse Ellipta 62.5 MCG/ACT Inhalation Aerosol Powder Breath Activated (umeclidinium De Beque) Inhale 1 Puff by mouth in the morning. 30 Each 03/24/20 23 024 Discontinued(Fo rmulary/Cost) Myrbetriq 50 MG Oral Tablet Extended Release 24 Hour (Mirabegron ER) Take 1 Tablet by mouth in the morning. 90 Tablet 3 04/05/20 23 024 Discontinued(Re fill) Spiriva Respimat 2.5 MCG/ACT Inhalation Aerosol SolutionIndications :SOB (shortness of breath) 2 puffs daily 4 g 07/11/20 024 Discontinued(Wi dication List Clean Up) Breo Ellipta 200-25 MCG/ACT Inhalation Aerosol Powder Breath Activated (fluticasone furoate-vilanterol) Indications:Moderat e persistent asthma without complication INHALE 1 PUFF BY MOUTH DAILY 60 Each 6 08/04/19 24 024 Discontinued tiZANidine HCl 4 MG Oral Tablet (Zanaflex)Indicatio ns:Acute pain of left shoulder TAKE 1 TABLET BY MOUTH EVERY 8 HOURS NEEDED FOR MUSCLE SPASMS 30 Tablet 5 09/19/19 24 024 Discontinued Losartan Potassium 100 MG Oral Tablet (Cozaar) TAKE 1 TABLET BY MOUTH DAILY 28 Tablet 5 10/22/19 24 024 Discontinued Furosemide 40 MG Oral Tablet (Lasix)Indications: Heart failure, diastolic, with acute decompensation (HCC) TAKE 1 TABLET BY MOUTH TWICE A DAY 180 Tablet 12/16/19 24 024 Discontinued Potassium Chloride ER 10 MEQ Oral Tablet Extended ReleaseIndications: HTN, goal below 140/90,PAF (paroxysmal atrial 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) (HCC),ROSALES (dyspnea on exertion) TAKE 1 TABLET BY MOUTH DAILY 90 Tablet 12/16/19 24 024 Discontinued documented as of this encounter (statuses as of 05/04/2024) Active Problems Problem Noted Date Diagnosed Date [...] as of this encounter (statuses as of 05/04/2024) Resolved Problems Problem Noted Date Diagnosed Date [...] 1 09/25/2012 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/31/2010 10/08/19 11 MCC current use of ant icoagulant therapy 08/31/2010 05/19/2011 Overview: ICD-10 update of inactive term Dysfunction of eustachian tube 08/17/2010 05/19/2011 Hypersomnia with sleep apnea 08/17/2010 01/15/2023 OTITIS MEDIA, CHRONIC, LEFT 08/17/2010 05/19/2011 Abnormality of gait 03/24/2010 06/18/20 14 ACTIVE CASE MANAGEMENT Kadie Hernandez [phone] 01/06/20 10 05/18/2010 Overview: ACTIVE CASE MANAGEMENT Kadie Hernandez [phone] Dyslipidemia, goal LDL below 130 09/30/2009 01/15/2023 [...] as of this encounter (statuses as of 05/04/2024) Immunizations Name Administration Dates Next Due COVID-19 mRNA, LNP-s, No Pre serve, 2-Dose Series (Moderna) 11/03/2020,10/06/2020 COVID-19 mRNA, LNP-s, No Pre serve, 2-Dose Series (Pfizer) 06/08/2021 Covid-19, Mrna, Lnp-s, Pf, B ivalent, 30 Mcg, IM, 12 yrs and above (Pfizer) 05/05/2022 H1N1 2009 Influenza, IM 08/15/2009 Hepatitis B, 20+ yrs 01/16/2014,04/06/2013,03/05 PPD 02/27/2013 Pneumococcal Conjugate Vacci ne, 20-valent ([id number]) 03/05/2022 Pneumococcal Polysaccharide PPV23 (Pneumovax) 03/31/2009 Seasonal [...] encounter Miscellaneous Notes * Telephone Encounter - Gem Stevens LPN - 02/09/2024 10:14 AM EDT Patient aware and verbalized understanding She said she is not sure she could afford PT & it is hard for her to get out and do things * Telephone Encounter - Brian Salas DO - 02/07/2024 4:21 PM EDT Please call: her hip looked fine. Her back shows a mildly worse scoliosis but nothing else. I recommend she move forward with physical therapy. * Telephone Encounter - Everardo Mcconnell MED ASSIST - 02/07/2024 4:07 PM EDT Please see patient message. Thank you! * Telephone Encounter - Lauren Celaya OSA - 02/07/2024 11:32 AM EDT Good morning, Patient calling back regarding above msg. Would like an update. Please advise Lauren Wright * Telephone Encounter - Rowena Kessler LPN - 02/03/2024 4:30 PM EDT Results are still in process. * Telephone Encounter - Renee Dacosta OSA - 02/03/2024 3:49 PM EDT Who is Requesting Test Results: pt Primary Care Provider : Brian Salas DO Tests Results Requested : Back xrays Date of Test : 01/31/2024 Location of Test: [facility] Ordering Provider: Dr Salas Patient has been made aware that the turnaround time for test results are typically as follows: Laboratory results = within 2-3 days ([facility]), 3-5 days (Non[facility], ie. [facility]) Urine Cultures = within 2-3 days depending on growth within the culture Pathology results (biopsy results/PAP) = 1-2 weeks Radiology results = about 1 week Cologuard results = within 2 weeks from the shipment date COVID testing = about 24 hours documented in this encounter Plan of Treatment Upcoming Encounters Date Type Department Care Team (Late st Contact Info) Description 05/15/2024 1:00 PM EDT Office Visit [facility] [address] [facility] [place], [place] [address] Brian Salas DO [address] [facility] [place] [address] 08/21/2024 8:30 AM EST Office Visit [facility], [facility] [address] [facility] [place] [address] Griselda Cody CRNP [address] [place] [address] 03/12/2025 11:20 AM EDT Office Visit Sleep Disorders Ctr [facility] [address] [facility] [place] [phone] Charlette Brannon DO [address] [place] [address] 04/11/2025 8:20 AM EDT Office Visit Pulmonary Medicine, [facility] [address] [facility] [place] [address] Yo Abreu MD [address] [place] [address] 05/21/2025 9:25 AM EDT Office Visit [facility]cology [facility] [address] [facility] [place] [address] Del Baron MD [address] [place] [address] Nurse Trae Tucker [address] [place] [address] Scheduled Procedures Name Priority Associated Diagnoses Date/Ti [...] filedocumented as of this encounter Care Teams Material Loader Relationship Specialty Start Date End Date Brian Salas DO [address] [place] [address] PCP - General Family Medicine 12/16/15 documented as of this encounter
--- OUTSIDE RECORDS SUMMARY | 2024-06-10 02:30 | External Medical Summary | Summary of Care ---
Author Name Unknown Organization [facility] Address [address] [facility] [address] Phone [phone] Care Team Providers Care Therapist Asst Name Role Phone AramisjajaronnieBrian Jasson PRATHER Primary Care Provider [phone] Reason for Visit * Reason Comments Follow Up Encounter Details Date Type Department Care Team (Late st Contact Info) Description 05/03/2024 9:05 AM EDT Office Visit Urogynecology Cristy Tucker [address] [place] [address] Del Baron MD [address] [place] [address] Nurse Trae Tucker [address] [place] [address] OAB (overactive bladder)*; Urge incontinence Allergies Active Allergy Reactions Criticality Noted Date [...] as of this encounter (statuses as of 05/03/2024) Medications Medication Sig Dispensed Refills Start Date End Date Status lamoTRIgine (LAMICTAL) 200 MG TabletIndications:Sc hizoaffective disorder, chronic condition ([facility]) TAKE 1 TABLET BY MOUTH TWICE DAILY MOOD DISORDER 180 Tab 1 02/23/2018 Active Vitamin B-2 100 MG Oral Tablet (vitamin B-2) TAKE 4 TABLETS (400MG) BY MOUTH DAILY 112 Tab 4 05/29/2020 Active Mirtazapine 30 MG Oral Tablet (REMERON) TAKE 1 TABLET BY MOUTH EVERYDAY AT BEDTIME 30 Tab 5 07/30/2020 Active Melatonin 3 MG Oral CapsuleIndications:P rimary insomnia Take 1 Cap by mouth at bedtime. 90 Cap 3 02/04/2021 Active Gabapentin 300 MG Oral Capsule (Neurontin)Indicatio ns:Polyneuropathy in other diseases classified elsewhere ([facility]) Take 1 Cap by mouth at bedtime. 30 Cap 5 05/11/2021 Active Sertraline HCl 100 MG Oral Tablet (Zoloft)Indications: Major depressive disorder with single episode, in partial remission ([facility]) Take 1 Tab by mouth [...] 09/23/2023 Active hydroCHLOROthiazide 12.5 MG Oral Capsule (Hydrodiuril)Indicat ions:HTN, goal below 140/90,Shortness of breath TAKE 1 CAPSULE BY MOUTH EVERY MORNING 90 Capsule 3 09/23/2023 Active Carvedilol 25 MG Oral Tablet (Coreg) TAKE 1 TABLET BY MOUTH TWICE A DAY WITH FOOD 56 Tablet 8 11/16/2023 Active Sotalol HCl 80 MG Oral Tablet (Betapace)Indication s:PAF (paroxysmal atrial 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) ([facility]) TAKE 1/2 TABLET BY MOUTH TWICE A [...] addition to 75 mcg dose. 90 Tablet 11/17/2023 Active Montelukast Sodium 10 MG Oral Tablet (Singulair)Indicatio ns:Mixed rhinitis,Moderate persistent asthma without complication Take 1 Tablet by mouth at bedtime. 30 Tablet 6 01/11/2024 Active Rosuvastatin Calcium 5 MG Oral Tablet (Crestor)Indications :Dyslipidemia, goal LDL below 130 TAKE 1 TABLET BY MOUTH DAILY 90 Tablet 02/08/2024 Active Furosemide 40 MG Oral Tablet (Lasix)Indications:H eart failure, diastolic, with acute decompensation (HCC) TAKE 1 TABLET BY MOUTH TWICE A DAY 180 Tablet 02/29/2024 Active Additional Information Patient not taking.Reported on 04/10/2024 Potassium Chloride ER 10 MEQ Oral Tablet Extended ReleaseIndications:H TN, goal below 140/90,PAF (paroxysmal atrial 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) ([facility]),ROSALES (dyspnea on exertion) TAKE 1 TABLET BY MOUTH DAILY 90 Tablet 02/29/2024 Active Breo Ellipta 200-25 MCG/ACT Inhalation Aerosol Powder Breath Activated (fluticasone furoate-vilanterol)I ndications:Moderate persistent asthma without complication INHALE 1 PUFF BY MOUTH DAILY 60 Each 03/26/2024 Active Losartan Potassium 100 MG Oral Tablet (Cozaar) TAKE 1 TABLET BY MOUTH DAILY 90 Tablet 04/05/2024 Active tiZANidine HCl 4 MG Oral Tablet (Zanaflex)Indication s:Acute pain of left shoulder TAKE 1 TABLET BY MOUTH EVERY 8 HOURS NEEDED FOR MUSCLE SPASMS 30 Tablet 04/09/2024 Active Mirabegron ER 50 MG Oral Tablet Extended Release 24 Hour (Myrbetriq) Take 1 Tablet by mouth every evening. 90 Tablet 3 05/03/2024 Active Mirabegron ER 50 MG Oral Tablet Extended Release 24 Hour (Myrbetriq) Take 1 Tablet by mouth in the morning. 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 08/31/2010 [...] as of this encounter (statuses as of 05/03/2024) Immunizations Name Administration Dates Next Due COVID-19 mRNA, LNP-s, No Pre serve, 2-Dose Series (Moderna) 11/03/2020,10/06/2020 COVID-19 mRNA, LNP-s, No Pre serve, 2-Dose Series (Pfizer) 06/08/2021 Covid-19, Mrna, Lnp-s, Pf, B ivalent, 30 Mcg, IM, 12 yrs and above (Pfizer) 05/05/2022 H1N1 2009 Influenza, IM 08/15/2009 Hepatitis B, 20+ yrs 01/16/2014,04/06/2013,03/05 PPD 02/27/2013 Pneumococcal Conjugate Vacci ne, 20-valent ([id number]) 03/05/2022 Pneumococcal Polysaccharide PPV23 (Pneumovax) 03/31/2009 Seasonal [...] 0 08/24/2000 - 08/24/2010 Smokeless Tobacco: Never Tobacco Cessation:Counseling Given: Not Answered Alcohol Use Standard Drinks/Week Comments No 0 [...] on file documented as of this encounter Progress Notes * Del Baron MD - 05/03/2024 9:08 AM EDT Sofia Melton presents for a follow up visit at [facility]. She was previously seen for (N32.81) OAB (overactive bladder) (primary encounter diagnosis) (N39.41) Urge incontinence Since last seen, she has been taking Myrbetriq 50 mg daily. Urinary: For the most part, she feels that her urinary control is good except first thing in the morning when she wakes up. The rest of the day she is doing well. She may have an occasional episode of urge incontinence "once in a while" but she feels that it is a significant improvement. She is voiding well. GI: no complaints Test Worker: no complaints Overall is pleased with current treatment plan and wishes to continue current treatment. Concerns: none Allergies: Review of patient's allergies indicates: Allergen Reactions Adhesive Tape Other reaction(s): RASH, ITCHY Alcohol Other reaction(s): Seizure Hydantoins Other reaction(s): Hives, Nausea Phenytoin Other Reaction(s): Itchy rash Thioridazine Other reaction(s): SEIZURES Latex rash Phenytoin Sodium Rash Torsemide ? possible rash on legs and arms Wound Dressing Adhesive Itching and Rash Active Medications: Current Outpatient Medications Medication Sig Dispense Refill lamoTRIgine (LAMICTAL) 200 MG Tablet TAKE 1 TABLET BY MOUTH TWICE DAILY MOOD DISORDER 180 Tab 1 Vitamin B-2 100 MG Oral Tablet (vitamin B-2) TAKE 4 TABLETS (400MG) BY MOUTH DAILY 112 Tab 4 Mirtazapine 30 MG Oral Tablet (REMERON) TAKE 1 TABLET BY MOUTH EVERYDAY AT BEDTIME 30 Tab 5 Melatonin 3 MG Oral Capsule Take 1 [...] nostril in the morning. 16 g 11 hydrOXYzine HCl 50 MG Oral Tablet Take [...] by mouth at bedtime. 30 Tablet 6 Rosuvastatin Calcium 5 MG Oral Tablet (Crestor) TAKE 1 TABLET BY MOUTH DAILY 90 Tablet 0 Potassium Chloride ER 10 MEQ Oral Tablet Extended Release TAKE 1 TABLET BY MOUTH DAILY 90 Tablet 1 Mirabegron ER 50 MG Oral Tablet Extended Release 24 Hour (Myrbetriq) Take 1 Tablet by mouth in the morning. 90 Tablet 3 Breo Ellipta 200-25 MCG/ACT Inhalation Aerosol Powder Breath Activated (fluticasone furoate-vilanterol) INHALE 1 PUFF BY MOUTH DAILY 60 Each 5 Losartan Potassium 100 MG Oral Tablet (Cozaar) TAKE 1 TABLET BY MOUTH DAILY 90 Tablet 1 tiZANidine HCl 4 MG Oral Tablet (Zanaflex) TAKE 1 TABLET BY MOUTH EVERY 8 HOURS NEEDED FOR MUSCLE SPASMS 30 Tablet 5 Triamcinolone Acetonide 55 MCG/ACT Nasal Aerosol (Nasacort Allergy 24HR) Administer 2 Sprays into nostril in the morning. (Patient not taking: Reported on 05/03/2024) 16.9 mL 5 Furosemide 40 MG Oral Tablet (Lasix) TAKE 1 TABLET BY MOUTH TWICE A DAY (Patient not taking: Reported on 04/10/2024) 180 Tablet 1 No current facility-administered medications for this visit. ROS: No Change since previous visit Impression: This is a 59 year old with OAB (overactive bladder) (Primary) Urge incontinence Patient is satisfied with her bladder control and improvement Plan: 1. Take Myrbetriq in the evenings 2. Kegel exercises 3. Limit bladder irritant in the diet All questions answered. Follow up in 1 year. I spent a total of 20 minutes on the date of service in preparation, delivery, and documentation ofthe care provided to Sofia Melton excluding any time spent in the performance of separately billed services. Del Baron MD 05/03/2024 9:13 AM documented in this encounter Nursing Notes * Shanna Grijalva LPN - 05/03/2024 9:12 AM EDT Patient presents to the clinic for medication follow up. documented in this encounter Plan of Treatment Upcoming Encounters Date Type Department Care Team (Late st Contact Info) Description 05/15/2024 1:00 PM EDT Office Visit Family Practice [facility] [address] [place] [address] Brian Salas, DO [address] [place] [address] 03/12/2025 11:20 AM EDT Office Visit Sleep Disorders Ctr [facility] [address] [place] [phone] Charlette Brannon, DO [address] [place] [address] 04/11/2025 8:20 AM EDT Office Visit Pulmonary Medicine, [facility] [address] [place] [address] Yo Abreu MD [address] [place] [facility] [place] [address] 05/21/2025 9:25 AM EDT Office Visit Urogynecology [facility] [address] [place] [address] Del Baron MD [address] [place] [address] TuckerNurse Trae dunaway [facility] [address] [place] [address] Scheduled Procedures Name Priority Associated Diagnoses Date/Ti [...] as of this encounter Visit Diagnoses Diagnosis OAB (overactive bladder)- Primary Hypertonicity of bladder Urge incontinence documented in this encounter Care Teams Therapist Asst Relationship Specialty Start Date End Date Brian Salas DO [address] [place] [address] PCP - General Family Medicine 12/16/15 documented as of this encounter
--- OUTSIDE RECORDS SUMMARY | 2024-06-10 02:30 | External Medical Summary | Summary of Care ---
Author Name Unknown Organization [facility] Address [address] [facility] [place] [address] Phone [phone] Care Team Providers Care Valve Liner Rubber Name Role Phone Brian Salas DO Primary Care Provider [phone] Reason for Visit * Reason Onset Date Comments Health Maintenance 04/11/2024 Encounter Details Date Type Department Care Team (Late st Contact Info) Description 04/11/2024 Telephone Family Practice [facility] [place] [address] [place] [address] Brian Salas DO [address] [facility] [address] Health Maintenance Allergies Active Allergy Reactions Criticality Noted Date Comments Adhesive Tape High 06/18/2022 Other reaction(s): RASH, ITCHY Alcohol High 06/18/2022 Other reaction(s): Seizure Hydantoins High 06/18/2022 Other reaction(s): Hives, Nausea Latex 03/29/2017 rash Phenytoin 12/21/2021 Phenytoin Sodium Rash 05/28/1999 Thioridazine High 06/18/2022 Other reaction(s): SEIZURES Torsemide 01/30/2021 ? possible rash on legs and arms Wound Dressing Adhesive Itching,Rash 03/05/2022 documented as of this encounter (statuses as of 04/11/2024) Medications Medication Sig Dispensed Refills Start Date [...] (Neurontin)Indication s:Polyneuropathy in other diseases classified elsewhere ([facility]) Take 1 Cap by mouth at bedtime. 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 [...] MOUTH DAILY 90 Tablet 1 02/29/2024 Active Mirabegron ER 50 MG Oral Tablet Extended Release 24 Hour (Myrbetriq) Take 1 Tablet by mouth in the morning. 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 08/31/2010 [...] as of this encounter (statuses as of 04/11/2024) Immunizations Name Administration Dates Next Due COVID-19 mRNA, LNP-s, No Pre serve, 2-Dose Series (Moderna) 11/03/2020,10/06/2020 COVID-19 mRNA, LNP-s, No Pre serve, 2-Dose Series (Pfizer) 06/08/2021 Covid-19, Mrna, Lnp-s, Pf, B ivalent, 30 Mcg, IM, 12 yrs and above (Pfizer) 05/05/2022 H1N1 2009 Influenza, IM 08/15/2009 Hepatitis B, 20+ yrs 01/16/2014,04/06/2013,03/05 PPD 02/27/2013 Pneumococcal Conjugate Vacci ne, 20-valent ([id number]) 03/05/2022 Pneumococcal Polysaccharide PPV23 (Pneumovax) 03/31/2009 Seasonal Influenza Virus Vac cine, Unspecified Formulation 04/12/2022,04/09/2021,05/21/2020,08/02,04/20/2018,2017,04/26/2016 ,09/10/2015,05/10/2014,05/18/2013,10/0 11/2011,04/20/2011,05/15/2010, 0,07/15/2009,05/22/2008,05/24/2007,08/2005 Seasonal Influenza, PF, 6 M & above, IM , (FluLaval or Fluzone) 04/12/2022,04/09/2021,05/21/2020,08/02,04/20/2018 Seasonal Influenza, Quadriva lent, No Preserve, IM 04/01/2023,04/26/2016 Seasonal Influenza, Quadriva lent,with Preserve, 3 yr & above, IM 2017 Seasonal Influenza, Trivalen t, (IIV3), with Preserv, (Fluzone) 2017,09/10/2015,05/10/2014,05/18,05/05/2012,04/20/2011,05/15/2010 ,07/15/2009,05/22/2008,05/24/2007,11/0 08/2005 TDAP, Age 7 and older, IM (Adacel) [...] encounter Miscellaneous Notes * Telephone Encounter - Sofia Pierre TRUDI - 04/11/2024 12:28 PM EDT Care Gaps Comprehensive Care Outreach Last Office/Telemedicine Visit: 01/26/2024 (in office), Visit date not found (telemedicine) Next Office Visit: 05/15/2024 Hemoglobin AIC Results: Lab Results Component Value Date/Time HEMOGLOBIN A1C 5.3 09/24/1996 09:45 AM HEMOGLOBIN A1C - [facility] 5.6 05/26/2023 07:56 AM HEMOGLOBIN A1C - [facility] 5.6 06/28/2022 09:58 AM HEMOGLOBIN A1C - [facility] 5.8 (H) 12/19/2020 09:16 AM HEMOGLOBIN A1C - [facility] 6.4 (H) 05/09/2020 08:31 AM HEMOGLOBIN A1C - [facility] 5.9 (H) 12/29/2018 09:06 AM HEMOGLOBIN A1C - [facility] 5.3 02/06/2014 12:54 PM BP Readings from Last 1 Encounters: 04/10/24 128/70 Reviewed Health Maintenance below: Health Maintenance Topic Date Due DTap/Tdap Vaccines (2 - Td or Tdap) 08/19/2021 Depression Monitoring 06/28/2023 Influenza Vaccine (FLU shot) (1) 04/01/2024 COVID-19 Vaccine (5 - 2022- season) 2024 Mammogram 04/19/2024 HbA1c 05/26/2024 GFR 05/26/2024 Mamm labs Care Gap Outreach Action Taken: Spritz message sent documented in this encounter Plan of Treatment Upcoming Encounters Date Type Department Care Team (Late st Contact Info) Description 05/03/2024 9:05 AM EDT Office Visit Urogynecology [facility] [address] [place] [address] Del Baron MD [address] [place] [address] Nurse Trae Tucker [address] [place] [address] 05/15/2024 1:00 PM EDT Office Visit Family Practice [facility] [address] [facility] [place] [address] Brian Salas, DO [address] [facility] [place] [address] 03/12/2025 11:20 AM EDT Office Visit Sleep Disorders [facility]tr [facility] [address] [place] [phone] Charlette Brannon, DO [address] [place] [address] 04/11/2025 8:20 AM EDT Office Visit Pulmonary Medicine, [facility] [address] [place] [address] Yo Abreu MD [address] [place] [address] Scheduled Procedures Name Priority Associated Diagnoses Date/Ti [...] filedocumented as of this encounter Care Teams Valve Liner Rubber Relationship Specialty Start Date End Date Brian Salas DO [address] [place] [address] PCP - General Family Medicine 12/16/15 documented as of this encounter
--- OUTSIDE RECORDS SUMMARY | 2024-06-10 02:30 | External Medical Summary | Summary of Care ---
Author Name Unknown Organization [facility] Address [address] [place] [address] Phone [phone] Care Team Providers Care Hot Kettle Tender Name Role Phone Brian Salas DO Primary Care Provider [phone] Reason for Visit * Reason Comments Outpatient Testing Encounter Details Date Type Department Care Team (Late st Contact Info) Description 05/15/2024 1:50 PM EDT [facility] [place] [address] [place] [address] Eric [facility] [address] [place] [address] Acquired hypothyroidism; Prediabetes; HTN, goal below 130/80; Chronic diastolic heart failure (HCC) Allergies Active [...] Date Status lamoTRIgine (LAMICTAL) 200 MG TabletIndications:Eliana cunninghamffective disorder, chronic condition (HCC) TAKE 1 TABLET [...] in other diseases classified elsewhere ([facility]) Take 1 Cap by mouth at bedtime. 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 30 [...] N, goal below 140/90,PAF (paroxysmal atrial 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) ([facility]),ROSALES (dyspnea on exertion) TAKE 1 TABLET BY [...] BY MOUTH DAILY 90 Tablet 05/07/2024 Active documented as of this encounter (statuses [...] PPD 02/27/2013 Pneumococcal Conjugate Vacci ne, 20-valent ([id number]) 03/05/2022 Pneumococcal Polysaccharide PPV23 (Pneumovax) 03/31/2009 Seasonal [...] 08/21/2024 8:30 AM EST Office Visit Cardiology, [facility] [address] [place] [address] Griselda Cody CRNP [address] [place] [address] 11/20/2024 10:00 AM EDT Office Visit Family Practice [facility] [address] [place] [address] Brian Salas, DO [address] [place] [address] 03/12/2025 11:20 AM EDT Office Visit Sleep Disorders Ctr [facility] [address] [phone] Charlette Brannon, [address] [place] [address] 04/11/2025 8:20 AM EDT Office Visit Pulmonary Medicine, [facility] [address] [place] [address] Yo Abreu MD [address] [place] [address] 05/21/2025 9:25 AM EDT Office Visit Urogynecology [facility] [address] [place] [address] Del Baron MD [address] [place] [address] TuckerNurse Trae dunaway [facility] [address] [place] [address] Pending Results Name Type Priority Associated Diagnoses Date /Time TSH WITH FREE T4 IF INDICATED Lab Routine Acquired hypothyroidism 05/15/2024 1:56 PM EDT HEMOGLOBIN A1C Lab Routine Prediabetes 05/15/2024 1:56 PM EDT BASIC METABOLIC PANEL Lab Routine HTN, goal below 130/80 05/15/2024 1:56 PM EDT BNP, NT-PRO Lab Routine Chronic diastolic heart failure (HCC) 05/15/2024 1:56 PM EDT Scheduled Procedures Name Priority Associated Diagnoses Date/Ti [...] of this encounter Visit Diagnoses Diagnosis Acquired hypothyroidism Unspecified hypothyroidism Prediabetes Other abnormal glucose HTN, goal below 130/80 Unspecified essential hypertension Chronic diastolic heart failure (HCC) Chronic diastolic heart failure documented in this encounter Care Teams Hot Kettle Tender Relationship Specialty Start Date End Date Brian Salas DO [address] [place] [address] PCP - General Family Medicine 12/16/15 documented as of this encounter
--- OUTSIDE RECORDS SUMMARY | 2024-06-10 02:30 | External Medical Summary ---
Author Name Unknown Address Unknown Organization [id number]:[facility] [place] [address] [place] [address] Laboratory Report Ordering Provider Test Date Status ANGEL GALLARDO 05/15/2024 13:56:01 Final Observation Date Value Abnormality Reference (Units ) Status HbA1C 05/15/2024 13:56:01 5.4 4.0-5.6 (% ) Final The use of HbA1c to monitor glycemic status is based on normal hemoglobin and HbA composition. This test should not be used in patients with abnormal hemoglobin that affects the half life of the red blood cell or the in vivo glycation rates. Glucose, estimated average 05/15/2024 13:56:01 108 <126 (mg/dL) Final Performing Location LABORATORY C - [address] [place] [address]
--- OUTSIDE RECORDS SUMMARY | 2024-06-10 02:30 | External Medical Summary ---
Author Name Unknown Address Unknown Organization [id number]:[facility] [place] [address] [place] [address] Laboratory Report Ordering Provider Test Date Status ANGEL GALLARDO 05/15/2024 13:56:01 Final Observation Date Value Abnormality Reference (Units ) Status TSH 05/15/2024 13:56:01 0.08 Below low normal 0.2 7-4.20 (uIU/mL) Final Performing Location [facility] [place] [address] [place] [address]
--- OUTSIDE RECORDS SUMMARY | 2024-06-10 02:30 | External Medical Summary ---
Author Name Unknown Address Unknown Organization K09:[facility] [place] [address] Laboratory Report Ordering Provider Test Date Status ANGEL GALLARDO 05/15/2024 13:56:01 Final Observation Date Value Abnormality Reference (Units ) Status BUN 05/15/2024 13:56:01 13 6-20 (mg/dL) Final Creatinine 05/15/2024 13:56:01 0.7 0.5-1.0 (mg/dL) Final Glomerular filtration rate/1.73 sq M.predicted [Volume Rate/Area] in Serum, Plasma or Blood by Creatinine-based formula (CKD-EPI) 05/15/2024 13:56:01 >90 >=60 (mL/min) Final eGFR is calculated based on the CKD-EPI 2020 equation. Sodium 05/15/2024 13:56:01 139 135-146 (m mol/L) Final Potassium 05/15/2024 13:56:01 4.3 3.5-5.1 (m mol/L) Final Cl 05/15/2024 13:56:01 98 98-107 (mm ol/L) Final CO2 05/15/2024 13:56:01 32 22-32 (mmo l/L) Final Anion gap 05/15/2024 13:56:01 9 7-15 (mmol /L) Final Glucose 05/15/2024 13:56:01 86 70-120 (mg /dL) Final Calcium 05/15/2024 13:56:01 9.6 8.4-10.2 ( mg/dL) Final Performing Location [facility] [place] [address]
--- OUTSIDE RECORDS SUMMARY | 2024-06-10 02:30 | External Medical Summary ---
Author Name Unknown Address Unknown Organization [id number]:[facility] [place] [address] [place] [address] Laboratory Report Ordering Provider Test Date Status ANGEL GALLARDO 05/15/2024 13:56:01 Final Exclude Heart Failure: <300 pg/mL
Diagnose Heart Failure:
Age <50 yr: >450 pg/mL
50-75 yr: >900 pg/mL
>75 yr: >1800 pg/mL
GFR is 30-59 mL/min: >1200 pg/mL or Age- adjusted values
GFR <30 mL/min: do not use, not reliable

Prognostic threshold: 1000 pg/mL Observation Date Value Abnormality Reference (Units ) Status BNP, Pro-hormone 05/15/2024 13:56:01 140 <30 0 (pg/mL) Final Performing Location LAB[facility] [place] - [address] [place] [address]
--- OUTSIDE RECORDS SUMMARY | 2024-06-10 02:30 | External Medical Summary ---
Author Name Unknown Address Unknown Organization [id number]:[facility] [place] [address] [place] [address] Laboratory Report Ordering Provider Test Date Status ANGEL GALLARDO 05/15/2024 13:56:01 Final Observation Date Value Abnormality Reference (Units ) Status T4, Free 05/15/2024 13:56:01 2.1 Above high normal 0. 9-1.7 (ng/dL) Final Performing Location LAB[facility]ATORY [facility] - [address] [place] [address]
--- OUTSIDE RECORDS SUMMARY | 2024-06-10 02:31 | External Medical Summary | Summary of Care ---
Author Name Unknown Organization [facility] [address] [place] [address] Phone [phone] Care Team Providers Care Forensic Examiner Name Role Phone AramisBrian self Primary Care Provider [phone] Reason for Visit * Reason Onset Date Comments Medication Refill 03/01/2024 Status Check 03/01/2024 Encounter Details Date Type Department Care Team (Late st Contact Info) Description 03/01/2024 Refill Urogynecology [facility] [address] [place] [address] Del Baron MD [address] [place] [address] Allergies Active Allergy Reactions Criticality Noted Date [...] as of this encounter (statuses as of 03/15/2024) Medications Medication Sig Dispensed Refills Start Date [...] (Neurontin)Indication s:Polyneuropathy in other diseases classified elsewhere ([facility]) Take 1 Cap by mouth at bedtime. 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 [...] every evening. 30 Tablet 11 03/08/2023 Active Incruse Ellipta 62.5 MCG/ACT Inhalation Aerosol Powder Breath Activated (umeclidinium Thornton) Inhale 1 Puff by mouth in the morning. 30 Each 11 03/24/2023 Active Additional Information Patient not taking.Reported on 01/26/2024 Myrbetriq 50 MG Oral Tablet Extended Release 24 Hour (Mirabegron ER) Take 1 Tablet by mouth in the morning. 90 Tablet 3 04/05/2023 Active Paliperidone ER 6 MG Oral Tablet [...] the morning. 16.9 mL 5 07/05/2023 Active Spiriva Respimat 2.5 MCG/ACT Inhalation Aerosol SolutionIndications:S OB (shortness of breath) 2 puffs daily 4 g 11 07/11/2023 Active hydrOXYzine HCl 50 MG Oral Tablet Take 1 Tablet by mouth every 6 hours as needed for Itching. 60 Tablet 3 07/28/2023 Active Triamcinolone Acetonide 0.5 % External Cream (Aristocort)Indicatio ns:Intrinsic eczema APPLY TOPICALLY TO AFFECTED AREA TWICE A DAY FOR 14 DAYS 45 g 1 08/04/2023 Active Breo Ellipta 200-25 MCG/ACT Inhalation Aerosol Powder Breath Activated (fluticasone furoate-vilanterol)In dications:Moderate persistent asthma without complication INHALE 1 PUFF BY MOUTH DAILY 60 Each 6 08/04/2023 Active Hydroxychloroquine Sulfate 200 MG Oral Tablet (Plaquenil) TAKE 2 TABLETS BY MOUTH EVERY NIGHT AT BEDTIME 56 Tablet 2 08/29/2023 Active tiZANidine HCl 4 MG Oral Tablet (Zanaflex)Indications :Acute pain of left shoulder TAKE 1 TABLET BY MOUTH EVERY 8 HOURS NEEDED FOR MUSCLE SPASMS 30 Tablet 5 09/19/2023 Active hydrALAZINE HCl 50 MG Oral Tablet (Apresoline)Indicatio ns:HTN, goal below 140/90,Lower extremity edema,PAF (paroxysmal atrial 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) (HCC),ROSALES (dyspnea on exertion),Dyslipidemi a, goal LDL below 100 TAKE 1 TABLET BY MOUTH THREE TIMES A DAY 270 Tablet 3 09/23/2023 Active hydroCHLOROthiazide 12.5 MG Oral Capsule (Hydrodiuril)Indicati ons:HTN, goal below 140/90,Shortness of breath TAKE 1 CAPSULE BY MOUTH EVERY MORNING 90 Capsule 09/23/2023 Active Losartan Potassium 100 MG Oral Tablet (Cozaar) TAKE 1 TABLET BY MOUTH DAILY 28 Tablet 5 10/22/2023 Active Carvedilol 25 MG Oral Tablet (Coreg) [...] A DAY 180 Tablet 1 02/29/2024 Active Potassium Chloride ER 10 MEQ Oral Tablet Extended ReleaseIndications:HT N, goal below 140/90,PAF (paroxysmal atrial 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) (HCC),ROSALES (dyspnea on exertion) TAKE 1 TABLET BY MOUTH DAILY 90 Tablet 1 02/29/2024 Active documented as of this encounter (statuses as of 03/15/2024) Active Problems Problem Noted Date Diagnosed Date [...] as of this encounter (statuses as of 03/15/2024) Resolved Problems Problem Noted Date Diagnosed Date [...] 1 09/25/2012 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/31/2010 10/08/19 11 [facility] current use of ant icoagulant therapy 08/31/2010 05/19/2011 Overview: ICD-10 update of inactive term Dysfunction of eustachian tube 08/17/2010 05/19/2011 Hypersomnia with sleep apnea 08/17/2010 01/15/2023 OTITIS MEDIA, CHRONIC, LEFT 08/17/2010 05/19/2011 Abnormality of gait 03/24/2010 06/18/20 14 ACTIVE CASE MANAGEMENT Kadie David Amilcar 6258 01/06/20 10 05/18/2010 Overview: ACTIVE CASE MANAGEMENT Kadei Hernandez [phone] Dyslipidemia, goal LDL below [...] as of this encounter (statuses as of 03/15/2024) Immunizations Name Administration Dates Next Due COVID-19 mRNA, LNP-s, No Pre serve, 2-Dose Series (Moderna) 11/03/2020,10/06/2020 COVID-19 mRNA, LNP-s, No Pre serve, 2-Dose Series (Pfizer) 06/08/2021 Covid-19, Mrna, Lnp-s, Pf, B ivalent, 30 Mcg, IM, 12 yrs and above (Pfizer) 05/05/2022 H1N1 2009 Influenza, IM 08/15/2009 Hepatitis B, 20+ yrs 01/16/2014,04/06/2013,03/05 PPD 02/27/2013 Pneumococcal Conjugate Vacci ne, 20-valent ([id number]) 03/05/2022 Pneumococcal Polysaccharide PPV23 (Pneumovax) 03/31/2009 Seasonal Influenza Virus Vac cine, Unspecified Formulation 04/12/2022,04/09/2021,05/21/2020,08/02,04/20/2018,2017,04/26/2016 ,09/10/2015,05/10/2014,05/18/2013,11/2011,04/20/2011,05/15/2010, 0,07/15/2009,05/22/2008,05/24/2007,08/2005 Seasonal Influenza, PF, 6 M & above, IM , (FluLaval or Fluzone) 04/12/2022,04/09/2021,05/21/2020,08/02,04/20/2018 Seasonal Influenza, Quadriva lent, No Preserve, IM 04/01/2023,04/26/2016 Seasonal Influenza, Quadriva lent,with Preserve, 3 yr & above, IM 2017 Seasonal Influenza, Split, I IV3, With Preserve, Inj 2017,09/10/2015,05/10/2014,05/18,05/05/2012,04/20/2011,05/15/2010 ,07/15/2009,05/22/2008,05/24/2007,11/0 08/2005 TDAP, Age 7 and [...] as of this encounter Miscellaneous Notes * Addendum Note - Kenna Cano OSA - 03/15/2024 9:42 AM EDTAddended by: KENNA CANO on: 03/15/2024 09:42 AM Modules accepted: Orders * Telephone Encounter - Kenna Cano OSA - 03/15/2024 9:23 AM EDT Received automatic refill request via fax from [facility] pharmacy for medication Myrbetriq 50 mg Patient last seen 06/09/2023 Future appt 05/03/2024 * Telephone Encounter - Medina Rivera CPhT - 03/13/2024 1:07 PM EDT [facility] calling to check on status of Myrbetriq 50 MG Oral Tablet Extended Release 24 Hour (Mirabegron ER) . Caller can be reached at [phone]. Thank you, Camilla Rivera CPhT Tax Appraiser II [facility] [address] [place] [address], [address] [place] [address] [phone] * Telephone Encounter - Fouzia Hanson LPN - 03/01/2024 4:58 PM EDT Received fax refill request for Myrbetriq 50mg. Pt last seen 06/09/23 with 6 month follow up advised. Patient cancelled appt w/o rescheduling. Will route to scheduling for assistance. * Telephone Encounter - Baylee Mon TECH - 03/01/2024 1:55 PM EDT Received automatic refill request via fax from [facility] pharmacy for medication Myrbetriq 50mg. Patient last seen Visit date 06/09/23 (in office), Visit date not found (telemedicine) Future appt Visit date not found documented in this encounter Plan of Treatment Upcoming Encounters Date Type Department Care Team (Late st Contact Info) Description 04/05/2024 8:40 AM EDT Office Visit Pulmonary Medicine, [address] [place] [address] Yo Abreu MD [address] [facility] [place] [address] 05/03/2024 9:05 AM EDT Office Visit Urogynecology Cristy Tucker [address] [place] [address] Del Baron MD [address] [place] [address] Nurse Trae Tucker [address] [place] [address] 05/15/2024 1:00 PM EDT Office Visit Family Practice [facility] [address] [facility] [place] [address] Brian Salas, DO [address] [facility] [place] [address] 03/12/2025 11:20 AM EDT Office Visit Sleep Disorders Ctr Drake Tucker [place] [address] [facility] [place] [phone] Charlette Brannon, DO [address] [facility] [place] [address] Scheduled Procedures Name Priority Associated Diagnoses Date/Ti me COLONOSCOPY FLEXIBLE PROXIMA L DIAGNOSTIC Recall Special screening for malignant neoplasms, colon Health Maintenance Due Date Last Done Comments Cologuard 2008 Fecal Occult Blood Test 2008 Sigmoidoscopy 2008 DTaP,Tdap,and Td Vaccines (2 - Td or Tdap) 08/19/2021 08/19/2011 Depression Monitoring 06/28/2023 06/28/2022 Influenza Vaccine (FLU shot) (#1) 2024 04/21/2023, [...] (6 to 64 Years) Completed 03/05/2022, 03/31/2009 COVID-19 Vaccine Completed 06/19/2023, 11/2021, 06/08/2021, Additional history exists HPV (Gardasil) Vaccine Aged Out No lo nger eligible based on patient's age to complete this topic MENINGOCOCCAL (MENACTRA/MENVEO) Aged Out No longer eligible based on patient's age to complete this topic documented as of this encounter Medical Devices Not on filedocumented as of this encounter Care Teams Forensic Examiner Relationship Specialty Start Date End Date Brian Salas DO [address] [place] [address] PCP - General Family Medicine 12/16/15 documented as of this encounter
--- OUTSIDE RECORDS SUMMARY | 2024-06-10 02:31 | External Medical Summary | Summary of Care ---
Author Name Unknown Organization [facility] Address [address] [facility] [place] [address] Phone [phone] Care Team Providers Care Wrong Address Clerk Name Role Phone Sami Salas DO Primary Care Provider [phone] Reason for Visit * Reason Comments eRx-Medication Refill Encounter Details Date Type Department Care Team (Late st Contact Info) Description 04/04/2024 Refill Family Practice [facility] [address] [place] [address] Sami Salas DO 200 [facility] [place] [address] Allergies Active Allergy Reactions Criticality Noted Date [...] as of this encounter (statuses as of 04/05/2024) Medications Medication Sig Dispensed Refills Start Date [...] every evening. 30 Tablet 11 3 Active Incruse Ellipta 62.5 MCG/ACT Inhalation Aerosol Powder Breath Activated (umeclidinium [place]) Inhale 1 Puff by mouth in the morning. 30 Each 11 3 Active Additional Information Patient not taking.Reported on 01/26/2024 Paliperidone ER 6 MG Oral Tablet Extended [...] the morning. 16.9 mL 5 3 Active Spiriva Respimat 2.5 MCG/ACT Inhalation Aerosol SolutionIndications :SOB (shortness of breath) 2 puffs daily 4 g 11 3 Active hydrOXYzine HCl 50 MG Oral [...] AT BEDTIME 56 Tablet 2 4 Active tiZANidine HCl 4 MG Oral Tablet (Zanaflex)Indicatio ns:Acute pain of left shoulder TAKE 1 TABLET BY MOUTH EVERY 8 HOURS NEEDED FOR MUSCLE SPASMS 30 Tablet 5 4 Active hydrALAZINE HCl 50 MG Oral [...] at bedtime. 30 Tablet 6 4 Active Rosuvastatin Calcium 5 MG Oral Tablet (Crestor)Indication s:Dyslipidemia, goal LDL below 130 TAKE 1 TABLET BY MOUTH DAILY 90 Tablet 4 Active Furosemide 40 MG Oral Tablet (Lasix)Indications: Heart failure, diastolic, with acute decompensation (HCC) TAKE 1 TABLET BY MOUTH TWICE A DAY 180 Tablet 1 4 Active Potassium Chloride ER 10 MEQ Oral Tablet Extended ReleaseIndications: HTN, goal below 140/90,PAF (paroxysmal atrial 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) (HCC),ROSALES (dyspnea on exertion) TAKE 1 TABLET BY MOUTH DAILY 90 Tablet 1 4 Active Mirabegron ER 50 MG Oral Tablet Extended Release 24 Hour (Myrbetriq) Take 1 Tablet by mouth in the morning. 90 Tablet 3 4 Active Breo Ellipta 200-25 MCG/ACT Inhalation Aerosol Powder Breath Activated (fluticasone furoate-vilanterol) Indications:Moderat e persistent asthma without complication INHALE 1 PUFF BY MOUTH DAILY 60 Each 5 4 Active Losartan Potassium 100 MG Oral Tablet (Cozaar) TAKE 1 TABLET BY MOUTH DAILY 90 Tablet 1 4 Active Losartan Potassium 100 MG Oral Tablet (Cozaar) TAKE 1 TABLET BY MOUTH DAILY 28 Tablet 5 4 04/05/20 24 Discontinued documented as of this encounter (statuses as of 04/05/2024) Active Problems Problem Noted Date Diagnosed Date [...] as of this encounter (statuses as of 04/05/2024) Resolved Problems Problem Noted Date Diagnosed Date [...] 1 09/25/2012 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/31/2010 10/08/19 11 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 of ant icoagulant therapy 08/31/2010 05/19/2011 Overview: ICD-10 update of inactive term Dysfunction of eustachian tube 08/17/2010 05/19/2011 Hypersomnia with sleep apnea 08/17/2010 01/15/2023 OTITIS MEDIA, CHRONIC, LEFT 08/17/2010 05/19/2011 Abnormality of gait 03/24/2010 06/18/20 14 ACTIVE CASE MANAGEMENT Kadie Hernandez [phone] 01/06/2005/18/2010 Overview: ACTIVE CASE MANAGEMENT Kadie Hernandez 231 [...] Irritable bowel syndrome SCHIZOAFFECTIVE-CHRONIC 07/02 Overview: Dr Lakai Ruvalcaba is her psychiatrist 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 09/25/19 13 documented as of this encounter (statuses as of 04/05/2024) Immunizations Name Administration Dates Next Due COVID-19 mRNA, LNP-s, No Pre serve, 2-Dose Series (Moderna) 11/03/2020,10/06/2020 COVID-19 mRNA, LNP-s, No Pre serve, 2-Dose Series (Pfizer) 06/08/2021 Covid-19, Mrna, Lnp-s, Pf, B ivalent, 30 Mcg, IM, 12 yrs and above (Pfizer) 05/05/2022 H1N1 2009 Influenza, IM 08/15/2009 Hepatitis B, 20+ yrs 01/16/2014,04/06/2013,03/05 PPD 02/27/2013 Pneumococcal Conjugate Vacci ne, 20-valent ([id number]) 03/05/2022 Pneumococcal Polysaccharide PPV23 (Pneumovax) 03/31/2009 Seasonal Influenza Virus Vac cine, Unspecified Formulation 04/12/2022,04/09/2021,05/21/2020,08/02,04/20/2018,2017,04/26/2016 ,09/10/2015,05/10/2014,05/18/2013,11/2011,04/20/2011,05/15/2010, 0,07/15/2009,05/22/2008,05/24/2007,08/2005 Seasonal Influenza, PF, 6 M & above, IM , (FluLaval or Fluzone) 04/12/2022,04/09/2021,05/21/2020,08/02,04/20/2018 Seasonal Influenza, Quadriva lent, No Preserve, IM 04/01/2023,04/26/2016 Seasonal Influenza, Quadriva lent,with Preserve, 3 yr & above, IM 2017 Seasonal Influenza, Trivalen t, (IIV3), with Preserv, (Fluzone) 2017,09/10/2015,05/10/2014,05/18,05/05/2012,04/20/2011,05/15/2010 ,07/15/2009,05/22/2008,05/24/2007,08/2005 TDAP, Age 7 and older, IM (Adacel) [...] encounter Miscellaneous Notes * Telephone Encounter - Lamar Pacheco formerly [facility] - 04/05/2024 9:54 PM EDTSigned Prescriptions: Disp Refills Losartan Potassium 100 MG Oral Tablet (Coz*90 Tab*1 Sig: TAKE 1 TABLET BY MOUTH DAILYAuthorizing Provider: SAMI SALAS User: LAMAR PACHECO------ documented in this encounter Plan of Treatment Upcoming Encounters Date Type Department Care Team (Late st Contact Info) Description 04/10/2024 8:40 AM EDT Office Visit Pulmonary Medicine, [facility] [address] [place] [address] Yo Abreu MD [address] [place] [address] 05/03/2024 9:05 AM EDT Office Visit Urogynecology [facility] [address] [place] [address] Del Baron MD [address] [facility] [place] [address] Nurse Trae Tucker [facility] [address] [place] [address] 05/15/2024 1:00 PM EDT Office Visit Family Practice [facility] [address] [facility] [place], [place] [address] Sami Salas, DO [address] [facility] [place], [place] [address] 03/12/2025 11:20 AM EDT Office Visit Sleep Disorders Ctr [facility] [address] [facility] [place] [phone] Charlette Brannon, [address] [facility] [place] [address] Scheduled Procedures Name Priority Associated Diagnoses Date/Ti [...] filedocumented as of this encounter Care Teams Wrong Address Clerk Relationship Specialty Start Date End Date Sami Salas DO [address] [place] [address] [place] [address] PCP - General Family Medicine 12/16/15 documented as of this encounter
--- OUTSIDE RECORDS SUMMARY | 2024-06-10 02:31 | External Medical Summary | Summary of Care ---
Author Name Unknown Organization [facility] Address [address] [facility] [place] [address] Phone [phone] Care Team Providers Care Lumber Marker Name Role Phone Brian Salas DO Primary Care Provider [phone] Reason for Visit * Reason Comments eRx-Medication Refill Encounter Details Date Type Department Care Team (Late st Contact Info) Description 04/06/[address] [facility] [address] [place] [address] Brian Salas DO 200 [facility] [place] [address] Acute pain of left shoulder Allergies Active Allergy Reactions Criticality Noted Date [...] as of this encounter (statuses as of 04/09/2024) Medications Medication Sig Dispensed Refills Start Date [...] MCG/ACT Inhalation Aerosol Powder Breath Activated (umeclidinium [place]) Inhale 1 Puff by mouth in the [...] MUSCLE SPASMS 30 Tablet 5 4 Active tiZANidine HCl 4 MG Oral Tablet (Zanaflex)Indicatio ns:Acute pain of left shoulder TAKE 1 TABLET BY MOUTH EVERY 8 HOURS NEEDED FOR MUSCLE SPASMS 30 Tablet 5 4 04/09/20 24 Discontinued documented as of this encounter (statuses as of 04/09/2024) Active Problems Problem Noted Date Diagnosed Date [...] as of this encounter (statuses as of 04/09/2024) Resolved Problems Problem Noted Date Diagnosed Date [...] 1 09/25/2012 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/31/2010 10/08/19 11 longterm current use of ant icoagulant therapy 08/31/2010 [...] as of this encounter (statuses as of 04/09/2024) Immunizations Name Administration Dates Next Due COVID-19 mRNA, LNP-s, No Pre serve, 2-Dose Series (Moderna) 11/03/2020,10/06/2020 COVID-19 mRNA, LNP-s, No Pre serve, 2-Dose Series (Pfizer) 06/08/2021 Covid-19, Mrna, Lnp-s, Pf, B ivalent, 30 Mcg, IM, 12 yrs and above (Pfizer) 05/05/2022 H1N1 2009 Influenza, IM 08/15/2009 Hepatitis B, 20+ yrs 01/16/2014,04/06/2013,03/05 PPD 02/27/2013 Pneumococcal Conjugate Vacci ne, 20-valent ([id number]) 03/05/2022 Pneumococcal Polysaccharide PPV23 (Pneumovax) 03/31/2009 Seasonal [...] encounter Miscellaneous Notes * Telephone Encounter - Keyla October CLAUDIA Dorman - 04/09/2024 9:09 AM EDTSigned Prescriptions: Disp Refills tiZANidine HCl 4 MG Oral Tablet (Zanaflex) 30 Tab*5 Sig: TAKE 1 TABLET BY MOUTH EVERY 8 HOURS NEEDED FOR MUSCLE SPASMS Authorizing Provider: KEYLA October * Telephone Encounter - Christiano Bryant [facility] - 04/09/2024 7:36 AM EDT Pending Prescriptions: Disp Refills tiZANidine HCl 4 MG Oral Tablet [Pharmacy *30 Tab*5 Sig: TAKE 1TABLET BY MOUTH EVERY 8 HOURS NEEDED FOR MUSCLE SPASMS Electronically signed by Christiano Bryant [facility] at 04/09/2024 7:36 AM EDT documented in this encounter Plan of Treatment Upcoming Encounters Date Type Department Care Team (Late st Contact Info) Description 04/10/2024 8:40 AM EDT Office Visit Pulmonary Medicine, [facility] [address] [place] [address] Yo Abreu MD [address] [place] [address] 05/03/2024 9:05 AM EDT Office Visit Urogynecology [facility] [address] [place] [address] Del Baron MD 132 [place] [address] Nurse Trae Tucker [address] [place] [address] 05/15/2024 1:00 PM EDT Office Visit Family Practice [facility] [place] [address] [facility], [place] [phone] Brian Salas, DO [address] [place] [address] 03/12/2025 11:20 AM EDT Office Visit Sleep Disorders Ctr Drake Tucker [place] [address] [place] [address] Charlette Brannon, DO [address] [place] [address] Scheduled Procedures Name Priority Associated Diagnoses Date/Ti [...] as of this encounter Visit Diagnoses Diagnosis Acute pain of left shoulder documented in this encounter Care Teams Lumber Marker Relationship Specialty Start Date End Date Brian Salas DO [address] [place] [address] PCP - General Family Medicine 12/16/15 documented as of this encounter
--- OUTSIDE RECORDS SUMMARY | 2024-06-10 02:31 | External Medical Summary | Summary of Care ---
Author Name Unknown Organization [facility] [address] [place] [address] Phone [phone] Care Team Providers Care Tape Calender Name Role Phone AramisBrian self Primary Care Provider [phone] Reason for Visit * Reason Onset Date Comments Medication Refill 03/01/2024 Status Check 03/01/2024 Encounter Details Date Type Department Care Team (Late st Contact Info) Description 03/01/2024 Refill Urogynecology [facility] [address] [place] [address] Del Baron MD [address] [place] [address] Allergies Active Allergy Reactions Criticality Noted Date [...] as of this encounter (statuses as of 03/13/2024) Medications Medication Sig Dispensed Refills Start Date [...] in other diseases classified elsewhere ([facility]) Take 1 Cap by mouth at bedtime. 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 [...] MCG/ACT Inhalation Aerosol Powder Breath Activated (umeclidinium [place]) Inhale 1 Puff by mouth in the [...] as of this encounter (statuses as of 03/13/2024) Active Problems Problem Noted Date Diagnosed Date [...] as of this encounter (statuses as of 03/13/2024) Resolved Problems Problem Noted Date Diagnosed Date [...] as of this encounter (statuses as of 03/13/2024) Immunizations Name Administration Dates Next Due COVID-19 mRNA, LNP-s, No Pre serve, 2-Dose Series (Moderna) 11/03/2020,10/06/2020 COVID-19 mRNA, LNP-s, No Pre serve, 2-Dose Series (Pfizer) 06/08/2021 Covid-19, Mrna, Lnp-s, Pf, B ivalent, 30 Mcg, IM, 12 yrs and above (Pfizer) 05/05/2022 H1N1 2009 Influenza, IM 08/15/2009 Hepatitis B, 20+ yrs 01/16/2014,04/06/2013,03/05 PPD 02/27/2013 Pneumococcal Conjugate Vacci ne, 20-valent ([id number]) 03/05/2022 Pneumococcal Polysaccharide PPV23 (Pneumovax) 03/31/2009 Seasonal [...] encounter Miscellaneous Notes * Telephone Encounter - Medina Rivera CPhT - 03/13/2024 1:07 PM EDT Lauro calling to check on status of Myrbetriq 50 MG Oral Tablet Extended Release 24 Hour (Mirabegron ER) . Caller can be reached at [phone]. Thank you, Camilla Rivera CPhT [employer] [facility] [address] [place] [address], [address] [place] [phone] * Telephone Encounter - Fouzia Hanson LPN - 03/01/2024 4:58 PM EDT Received fax refill request for Myrbetriq 50mg. Pt last seen 06/09/23 with 6 month follow up advised. Patient cancelled appt w/o rescheduling. Will route to scheduling for assistance. * Telephone Encounter - Baylee Mon TECH - 03/01/2024 1:55 PM EDT Received automatic refill request via fax from [facility] pharmacy for medication Myrbetriq 50mg. Patient last seen Visit date 06/09/23 (in office), Visit date not found (telemedicine) Future appt Visit date not found documented in this encounter Plan of Treatment Upcoming Encounters Date Type Department Care Team (Late st Contact Info) Description 04/05/2024 8:40 AM EDT Office Visit Pulmonary Medicine, [facility] [place] [address] [place] [address] Yo Abreu MD [address] [place] [address] 05/03/2024 9:05 AM EDT Office Visit Urogynecology Cristy Tucker [address] [place] [address] Del Baron MD [address] [place] [address] Nurse Trae Tucker [address] [place] [address] 05/15/2024 1:00 PM EDT [facility] [address] [place] [address] Brian Salas, DO [address] [place] [address] 03/12/2025 11:20 AM EDT Office Visit Sleep Disorders Ctr Drake Tucker [place] [address] [place] [phone] Charlette Brannon, DO [address] [place] [address] Scheduled Procedures Name Priority Associated Diagnoses Date/Ti [...] filedocumented as of this encounter Care Teams Tape Calender Relationship Specialty Start Date End Date Brian Salas DO [address] [place] [address] PCP - General Family Medicine 12/16/15 documented as of this encounter
--- OUTSIDE RECORDS SUMMARY | 2024-06-10 02:31 | External Medical Summary | Summary of Care ---
Author Name Unknown Organization [facility] Address [address] [place] [address] Phone [phone] Care Team Providers Care Manager Secondary Name Role Phone AramisBrian self Primary Care Provider [phone] Reason for Visit * Reason Comments Follow Up Asthma Encounter Details Date Type Department Care Team (Late st Contact Info) Description 04/10/2024 8:40 AM EDT Office Visit Pulmonary Medicine, [facility] [address] [facility] [place] [id number] Yo Abreu MD [address] [facility] [id number] SOB (shortness of breath)*; Pulmonary hypertension (HCC) Allergies Active Allergy Reactions Criticality Noted [...] as of this encounter (statuses as of 04/10/2024) Medications Medication Sig Dispensed Refills Start Date [...] (Neurontin)Indicatio ns:Polyneuropathy in other diseases classified elsewhere ([facility]) Take 1 Cap by mouth at bedtime. 30 Cap 5 05/11/2021 Active Sertraline HCl 100 MG Oral Tablet (Zoloft)Indications: Major depressive disorder with single episode, in partial remission ([facility]) Take 1 Tab by mouth daily. [...] TN, goal below 140/90,PAF (paroxysmal atrial 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) ([facility]),ROSALES (dyspnea on exertion) TAKE 1 TABLET [...] MUSCLE SPASMS 30 Tablet 5 04/09/2024 Active Incruse Ellipta 62.5 MCG/ACT Inhalation Aerosol Powder Breath Activated (umeclidinium Fitzpatrick) Inhale 1 Puff by mouth in the morning. 30 Each 11 03/24/2023 04/10/20 24 Discontinu ed(Formula ry/Cost) Spiriva Respimat 2.5 MCG/ACT Inhalation Aerosol SolutionIndications: SOB (shortness of breath) 2 puffs daily 4 g 11 07/11/2023 04/10/20 24 Discontinu ed(Medicat ion List Clean Up) documented as of this encounter (statuses as of 04/10/2024) Active Problems Problem Noted Date Diagnosed Date [...] as of this encounter (statuses as of 04/10/2024) Resolved Problems Problem Noted Date Diagnosed Date [...] as of this encounter (statuses as of 04/10/2024) Immunizations Name Administration Dates Next Due COVID-19 mRNA, LNP-s, No Pre serve, 2-Dose Series (Moderna) 11/03/2020,10/06/2020 COVID-19 mRNA, LNP-s, No Pre serve, 2-Dose Series (Pfizer) 06/08/2021 Covid-19, Mrna, Lnp-s, Pf, B ivalent, 30 Mcg, IM, 12 yrs and above (Pfizer) 05/05/2022 H1N1 2009 Influenza, IM 08/15/2009 Hepatitis B, 20+ yrs 01/16/2014,04/06/2013,03/05 PPD 02/27/2013 Pneumococcal Conjugate Vacci ne, 20-valent ([id number]) 03/05/2022 Pneumococcal Polysaccharide PPV23 (Pneumovax) 03/31/2009 Seasonal [...] Sign Reading Time Taken Comments Blood Pressure 128/70 04/10/2024 8:36 AM EDT Pulse 64 04/10/2024 8:36 AM EDT Temperature 36.1 C (97 F) 04/10/2024 8:36 AM EDT Respiratory Rate 16 04/10/2024 8:36 AM EDT Oxygen Saturation 99% 04/10/2024 8:36 AM EDT Inhaled Oxygen Concentration - - Weight 131.5 kg (290 lb) 04/10/2024 8:36 AM EDT Height 161.3 cm (5' 3.5") 04/10/2024 8:36 AM EDT Body Mass Index 50.57 04/10/2024 8:36 AM EDT documented in this encounter Progress Notes * Yo Abreu MD - 04/10/2024 9:02 AM EDT 04/10/2024 Pulmonary Medicine, [facility] [address] [facility] [place] [id number] Sofia Melton 1965 female 58 year old Attending Physician Documentation: 58-year-old female Moderate persistent asthma Obesity hypoventilation syndrome Paroxysmal AFib GERD CHF Obesity BMI 50.57 GERD OSAS on BiPAP therapy History mild baseline intellectual disability Successfully managed to lose 35+ lb, from 325 lb down to 290 lb. Maintaining physical activity status by regular walks. Denies interval hospitalizations or Emergency Room visits Current bronchodilator regimen: Breo inhaler and rare use of rescue albuterol. Physical examination: Alert, awake, no distress Class 4 throat No JVD Clear lung villa anteriorly, minimal rhonchi, no dullness S1, S2, no murmur Distended, nontender abdomen No lower extremity edema Nonlateralizing Neuro examination Pulmonary History to date: - 2020 [place] Rast positive for alternaria, cat dander, IgE normal at 79.6 - absolute eosinophils 280 06/2021 - 06/2021 + SOFIA - former smoker, quit 10-20 years ago, smoked for 10 years, 1 ppd - Receiving Iron infusions for MELCHOR Assessment/ Recommendations and Plans: Moderate, persistent asthma, ACT 15, likely TH 2 phenotype Continue Breo 200 and spiriva daily Continue PRN albuterol, encouraged to use prior to activities known to cause her to have SOB. Recent PFTs with decreased FVC and FEV1, but normal TLC. No bronchodilator response. Air trapping present, pseudorestriction likely from body habitus Update spirometry and walk test prior to next visit Pulmonary hypertension Improved exercise tolerance following weight management Last echo in 01/2022 shows PAP of 37 Suspect group 2 and 3 Continue use of BIPAP Morbid Obesity, Body mass index is 50.57 kg/m. Encouraged exercise as tolerated Obesity hypoventilation syndrome with MAURO Continues to use BIPAP nightly and follows with sleep medicine Grade II diastolic dysfunction Follow with cardiology regarding adjustment of diuretic regimen. Normal BUN/creatinine noted May 2023 Shortness of breath Improved exercise tolerance following improvement in physical activity status Multifactorial- asthma vs obesity vs melchor vs PH vs a fib vs diastolic dysfunction Recent chest imaging with stable apical scarring (suspect from smoking history) and atelectatic changes -- no further imaging warranted GERD Controlled, continue PPI daily Patient counseled on conservative management of gerd including head of bed elevated with use of a wedge, not eating within 3 hours of bed, avoiding spicy/acidic foods including red sauces, hot sauces, tomatoes, chocolate and caffeine containing beverages such as caffeinated tea/coffee P. 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 Controlled, follows with cardiology Allergic rhinitis Continue singulair, xyzal and flonase Avoid allergens when possible Pulmonary clinic follow-up recommended in 1 year. Patient was advised to contact the office with any change in respiratory symptoms status. Follow Up: Return in about 1 year (around 04/10/2025) for Clinic Visit. | For: Clinic Visit | Check-out note: 58-year-old female Moderate persistent asthma Obesity hypoventilation syndrome Paroxysmal AFib GERD CHF Obesity BMI 50.57 GERD OSAS on BiPAP therapy History mild baseline intellectual disability Successfully managed to lose 35+ lb, from 325 lb down to 290 lb. Maintaining physical activity status by regular walks. Denies interval hospitalizations or Emergency Room visits Current bronchodilator regimen: Breo inhaler and rare use of rescue albuterol. Moderate, persistent asthma Follow Up: Return in about 1 year (around 04/10/2025) for Clinic Visit. | For: Clinic Visit | Check-out note: , Continue Breo 200 and spiriva daily Continue PRN albuterol, encouraged to use prior to activities known to cause her to have SOB. Recent PFTs with decreased FVC and FEV1, but normal TLC. No bronchodilator response. Air trapping present, pseudorestriction likely from body habitus Update spirometry and walk test prior to next visit Pulmonary hypertension Improved exercise tolerance following weight management Last echo in 01/2022 shows PAP of 37 Suspect group 2 and 3 Continue use Follow Up: Return in about 1 year (around 04/10/2025) for Clinic Visit. | For: Clinic Visit | Check-out note: of BIPAP Morbid Obesity, Body mass index is 50.57 kg/m. Encouraged exercise as tolerated Obesity hypoventilation syndrome with MAURO Continues to use BIPAP nightly and follows with sleep medicine Grade II diastolic dysfunction Follow with cardiology regarding adjustment of diuretic regimen. Normal BUN/creatinine noted May 2023 Shortness of breath Improved exercise tolerance following improvement in physical activity status Multifactorial- asthma vs obesity vs melchor vs PH vs a fib Follow Up: Return in about 1 year (around 04/10/2025) for Clinic Visit. | For: Clinic Visit | Check-out note: vs diastolic dysfunction Recent chest imaging with stable apical scarring (suspect from smoking history) and atelectatic changes -- no further imaging warranted GERD Controlled, continue PPI daily Patient counseled on conservative management of gerd including head of bed elevated with use of a wedge, not eating within 3 hours of bed, avoiding spicy/acidic foods including red sauces, hot sauces, tomatoes, chocolate and caffeine containing beverages such as caffeinated tea/coffee P. Atrial f Follow Up: Return in about 1 year (around 04/10/2025) for Clinic Visit. | For: Clinic Visit | Check-out note: ibrillation Controlled, follows with cardiology Allergic rhinitis Continue singulair, xyzal and flonase Avoid allergens when possible Yo Abreu MD DATA Latest Reference Range & Units 04/12/22 09:33 06/28/22 09:58 08/10/22 09:00 HGB 12.0 - 15.3 g/dL 8.4 (L) 7.2 (L) 9.3 (L) HCT 36.0 - 45.2 % 28.4 (L) 25.8 (L) 31.5 (L) MCV 81.5 - 97.5 fL 86.9 87.8 90.3 PLT 140 - 400 K/uL 242 216 281 (L): Data is abnormally low Pulmonary Stress Test: Performed on 10/2021 . Exercise oximetry performed on room air x 6 minutes. Pt ambulated 630 feet/ 192 meters. 4 rest periods were required for 38 seconds. Lowest SPO2 on room air was 90%. Performed on 03/2021 Exercise oximetry performed on room air x 6 minutes. Pt ambulated with a walker 870 feet/ 265 meters. 2 rest periods were required for .24 seconds. Lowest SPO2 on room air was 89% Pulmonary Function Test Results: Performed on 10/2021 BMI 58. Flow loops obstructive. Spirometry is mixed with severe obstruction. There is no significant bronchodilator response. Lung volumes with normal TLC ruling out true restriction. There is air trapping. DLCO corrected for hemoglobin is normal. Overall pseudorestriction from air trapping due to likely airways disease. Compared to prior PFT from 03/2021 there has been a significant decrease in the DLCo.This interpretation has been electronically signed: Rob Templeton 11/27/2021 12:41:44 PM Chest X-ray: Performed on 09/2021 FINDINGS LINES/DEVICES: None LUNGS/PLEURA: Appearance of the lungs is unchanged since 2016. There is mild bibasilar atelectasis.No new opacity. There is no pleural effusion or pneumothorax. CARDIOVASCULAR/MEDIASTINUM: The cardiomediastinal silhouette is within normal limits. OTHER: The upper abdomen is unremarkable. IMPRESSION IMPRESSION No active disease in the chest. Chest CT scan: Performed on 2015 FINDINGS MEDIASTINUM AND DUSTY: No mediastinal or hilar lymphadenopathy is noted. LARGE AIRWAYS: Unremarkable LUNGS: There is linear scarring in the left lung base. No suspicious nodules, masses or infiltratesare present in the lungs. PLEURA: There are no pleural effusions. CHEST WALL/SOFT TISSUES: There is no axillary adenopathy. LINES AND DEVICES: None BONES: There is an old healed right-sided rib fracture. VESSELS: The thoracic aorta is without aneurysm or dissection. UPPER ABDOMEN: Unremarkable IMPRESSION Linear scarring in the left lung base. Unremarkable CT examination of the chest otherwise. Performed 05/2022: FINDINGS: Thyroid: Very diminutive thyroid. Lungs: Evaluation lungs demonstrates mildly heterogeneous aeration without large blebs or bulla. No significant honeycombing. Dependent scarring or atelectatic changes in the lung bases. Pleural spaces: Mild apical pleural thickening without pneumothorax or effusion. Heart: Mild coronary artery disease. Lymph nodes: No lymphadenopathy. Vasculature: Mild atherosclerotic changes of the nonaneurysmal aorta. Diaphragm: Tiny hiatal hernia. Gallbladder and bile ducts: Absent gallbladder. Bones/joints: Degenerative changes along the spine without acute fracture. Soft tissues: Unremarkable. Other findings: Limited exam due to body habitus. IMPRESSION IMPRESSION: Mildly heterogeneous aeration of the lungs without significant interstitial thickening, large blebs or bulla, or significant honeycombing. Dependent scarring atelectatic changes. 2. Mild atherosclerotic disease. 3. No confluent lymphadenopathy. 4. Diminutive thyroid. Echocardiogram: Performed on 12/2020 Interpretation Summary The examination is adequate to evaluate the referral indication. The qualitative LV ejection fraction is 60-64% (normal). The LV wall thickness is mildly increased (concentric). The left ventricular wall motion is normal. The left ventricular diastolic function is moderately abnormal (grade II). Mild mitral regurgitation is present. Mild tricuspid regurgitation is present. Mild pulmonary hypertension is present. The estimated pulmonary artery systolic pressure is 40mm Hg. Performed 01/2022: Echo 01/2022 Normal LV chamber size with borderline concentric LVH. Normal LV systolic function without regional wall motion abnormalities. Calculated LV ejection Fraction = 63% (bi-plane method of discs). Grade 2 diastolic dysfunction. No significant valvular pathology. The estimated pulmonary artery systolic pressure is 36mm Hg. Subjective CC: Chief Complaint Patient presents with Follow Up Asthma HPI: Nursing Notes: Luz Maria Cortez LPN 04/10/24 0912 Signed Chief Complaint Patient presents with Follow Up Asthma MMRC Dyspnea Scale = 2 (On level ground, I walk slower than people of the same age because of breathlessness or have to stop for breath when walking at my own) Interm History/Respiratory Symptoms Cough: no Hemoptysis: no Sinus Symptoms: no Hospitalizations: no ED Trips: no Triggers: pollen,dogs,cats,weather changes Nocturnal: SOB CPAP/BiPAP/O2: bipap DME Supplier: [employer] Flu Vaccine: declined Travel Screening Question 04/10/2024 8:17 AM EDT - Filed by Patient Do you have any of the following new or worsening symptoms? None of these Have you recently been in contact with someone who was sick? No / Unsure Myc Visit Accident Related Question Question 04/10/2024 8:17 AM EDT - Filed by Patient Is this visit related to an accident? (i.e work, motor vehicle) No Asthma Control Test Question 04/10/2024 8:20 AM EDT - Filed by Patient Please select the best response to the five questions below, by clicking the appropriate option button. In the past 4 weeks, how much of the time did your asthma keep you from getting as much done at work, school or at home? (4) A little of the time During the past 4 weeks, how often have you had shortness of breath? (3) 3 to 6 times a week During the past 4 weeks, how often did your asthma symptoms (wheezing, coughing, shortness of breath, chest tightness or pain) wake you up at night or earlier than usual in the morning? (5) Not at all During the past 4 weeks, how often have you used your rescue inhaler or nebulizer medication (such as albuterol)? (5) Not at all How would you rate your asthma control during the past 4 weeks? (4) Well controlled Total ACT Adult Score (range: 5 - 25) 21 (Well Controlled) Total ACT Child Score (range: 0 - 27) Incomplete Flu Vaccine Questionnaire Question 04/10/2024 8:20 AM EDT - Filed by Patient Get your flu shot at your upcoming appointment. Please select one of the options below. I would like to discuss this with my clinician Objective Filed Vitals: 04/10/24 0836 BP: 128/70 Pulse: 64 Resp: 16 Temp: 36.1 C (97 F) TempSrc: Tympanic SpO2: 99% Weight: 131.5 kg (290 lb) Height: 1.613 m (5' 3.5") Exam: Const: No signs of acute distress present. Head/Face: Normal on inspection. Eyes: Conjunctivae clear. Pupils equal round and reactive to light. ENMT: Oropharynx: No erythema, exudate or masses. Posterior pharynx is normal. Neck: Supple and symmetric. Resp: Respiratory examination as outlined above CV: Rate is regular. Rhythm is regular. No heart murmur appreciated. Extremities: No edema of the lower limbs bilaterally. Skin: Skin is warm and dry. Neuro: Coordination normal. No involuntary movement. Psych: Patient's attitude is cooperative. Mood is normal. Affect is normal. Tests reviewed with the patient: XR L SPINE AP AND LATERAL Result Date: 02/06/2024 IMPRESSION: 1. Somewhat increased dextroscoliosis centered at the L2-L3 level. Grade 1 anterolisthesis of L5 on S1. 2. Stable postsurgical fusion changes spanning L2 to L4 with internal fixation, no hardware complication. 3. Stable degenerative changes. THIS DOCUMENT HAS BEEN ELECTRONICALLY SIGNED BY BERNADINE DOUGLAS MD XR HIP BILAT MIN 5 VIEWS INCLUDING AP OF PELVIS Result Date: 02/06/2024 IMPRESSION: No acute abnormality. THIS DOCUMENT HAS BEEN ELECTRONICALLY SIGNED BY BERNADINE DOUGLAS MD XR ABDOMEN 1 VIEW Result Date: 01/31/2024 IMPRESSION Moderate to large amount of fecal material in the colon. Available Radiologic data was reviewed by me in PACS. The images were shown to the patient and findings were discussed with the patient. HOME MEDICATIONS: tiZANidine HCl 4 MG Oral Tablet (Zanaflex) Losartan Potassium 100 MG Oral Tablet (Cozaar) Breo Ellipta 200-25 MCG/ACT Inhalation Aerosol Powder Breath Activated (fluticasone furoate-vilanterol) Mirabegron ER 50 MG Oral Tablet Extended Release 24 Hour (Myrbetriq) Rosuvastatin Calcium 5 MG Oral Tablet (Crestor) Montelukast Sodium 10 MG Oral Tablet (Singulair) Levothyroxine Sodium 150 MCG Oral Tablet (Levoxyl) Carvedilol 25 MG Oral Tablet (Coreg) Levothyroxine Sodium 75 MCG Oral Tablet (Levoxyl) Sotalol HCl 80 MG Oral Tablet (Betapace) hydrALAZINE HCl 50 MG Oral Tablet (Apresoline) hydroCHLOROthiazide 12.5 MG Oral Capsule (Hydrodiuril) Hydroxychloroquine Sulfate 200 MG Oral Tablet (Plaquenil) Fluticasone Propionate 50 MCG/ACT Nasal Suspension (Flonase) Levocetirizine Dihydrochloride 5 MG Oral Tablet (Xyzal Allergy 24HR) DULoxetine HCl 30 MG Oral Capsule Delayed Release Particles (Cymbalta) Ventolin HFA 108 (90 Base) MCG/ACT Inhalation Aerosol Solution busPIRone HCl 10 MG Oral Tablet (Buspar) Vitron-C 65-125 MG Oral Tablet (Iron-Vitamin C) BiPAP Vitamin D3 50 MCG (2000 UT) Oral Capsule Systane 0.4-0.3 % Ophthalmic Solution (Polyethyl Glycol-Propyl Glycol) Sertraline HCl 100 MG Oral Tablet (Zoloft) Gabapentin 300 MG Oral Capsule (Neurontin) Melatonin 3 MG Oral Capsule Mirtazapine 30 MG Oral Tablet (REMERON) Vitamin B-2 100 MG Oral Tablet (vitamin B-2) lamoTRIgine (LAMICTAL) 200 MG Tablet Furosemide 40 MG Oral Tablet (Lasix) Potassium Chloride ER 10 MEQ Oral Tablet Extended Release Triamcinolone Acetonide 0.5 % External Cream (Aristocort) hydrOXYzine HCl 50 MG Oral Tablet Paliperidone ER 6 MG Oral Tablet Extended Release 24 Hour (Invega) Perphenazine 2 MG Oral Tablet (Trilafon) Triamcinolone Acetonide 55 MCG/ACT Nasal Aerosol (Nasacort Allergy 24HR) Pantoprazole Sodium 40 MG Oral Tablet Delayed Release (Protonix) Perphenazine 8 MG Oral Tablet Paliperidone ER 9 MG Oral Tablet Extended Release 24 Hour ROS: No reported history of Hemoptysis, Hematemesis, Melena No reported history of Dysuria, Hematuria, Flank Pain No reported history of chronic headache, seizures No reported history of Fall or trauma . No reported history of recent change in weight or appetite. 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, soda jerker in [place] Generalized convulsive epilepsy without intractable epilepsy (HCC) Seizures, Epileptic, Dr López GERD (gastroesophageal reflux disease) HTN, goal below 130/80 09/03/2010 HTN, goal below 140/90 Hypothyroidism Irritable bowel syndrome Dr Lee, [facility] [place] Migraine with aura Migraines-Classical neurology Dr López Obstructive sleep apnea (adult) (pediatric) moderate, AHI 18 09/2010, refusing CPAP Osteoarthrosis, unspecified whether generalized or localized, other specified sites Otitis media recurrent Pulmonary arterial hypertension (HCC) Schizoaffective disorder, chronic condition ([facility]) Dr Cutler Sciatica Sleep apnea, obstructive Past Surgical History: Procedure Laterality Date CATARACT SURGERY,COMPLEX Left 08/2018 Dr. Argueta COLONOSCOPY, DIAGNOSTIC (RECTUM) 10/09/2014 normal, repeat 10 yrs/[facility] COLONOSCOPY, DIAGNOSTIC (RECTUM) 06/07/2018 Difficult colonoscopy with a fair prep/[facility] COLONOSCOPY, DIAGNOSTIC (RECTUM) 12/03/2021 normal / [facility] CREATE EARDRUM OPENING,LOCAL ANESTH Dr. Day EEG 04/2003 Dr López, [place], told normal EGD, FLEXIBLE, DIAGNOSTIC 03/04/2015 mild-mod inflammation/[facility] EGD, FLEXIBLE, DIAGNOSTIC 06/07/2018 inflammation on bx/[facility] EGD, FLEXIBLE, DIAGNOSTIC N/A 06/21/2022 [facility], EGD . normal scope/ no specimens collected / L-/S-SPINE PARAVERTEBRAL FACET INJ,1 LEVEL 04/02/2014 L-/S-SPINE PARAVERTEBRAL FACET INJ,1 LEVEL performed by Axel Yoo DO at OR [facility] L-/S-SPINE PARAVERTEBRL FACET INJ,2 LEVELS 02/26/2014 L-/S-SPINE PARAVERTEBRL FACET INJ,2 LEVELS performed by Axel Yoo DO at OR [facility] LAPAROSCOPY; CHOLECYSTECTOMY 07/1997 [facility], Dr Alcazar LIGATE/CUT OVIDUCT(S) Tubal Ligation LUMBAR HEMILAMINECTOMY 07/08/2014 Dr Boland NASAL/SINUS ENDOSCOPY, SURGICAL 2006 Dr Cali REMOVAL OF TONSILS, UNDER AGE 10 Tonsils Removal,<10 Y/O VAGINAL HYSTERECTOMY 1997 Hysterectomy Vaginal, endometriosis, Dr Berger at [facility] in [place], [place] Social History Socioeconomic History Marital status: Spouse name: Al Number of children: 0 Years of education: 12 Occupational History Occupation: disabled, for psychosis Tobacco Use Smoking status: Former Current packs/day: 0.00 Average packs/day: 1 pack/day for 10.0 years (10.0 ttl pk-yrs) Types: Cigarettes Start date: 08/24/2000 Quit date: 08/24/2010 Years since quittin.6 Smokeless tobacco: Never Vaping Use Vaping status: Never Used Substance and Sexual Activity Alcohol use: No Drug use: No Sexual activity: Not Currently Other Topics Concern Service No Blood Transfusions No Caffeine Concern No Occupational Exposure No Social History Narrative No pets. No mold. born in [place], raised in [facility], resident for 25+ years. disabled for depression, OCD, and a variety of physical problems. FREDDY Elizalde through [employer] Social Determinants of Health Social Connections Family History Problem Relation Name Age of Onset Lung cancer Mother in her 70s Diabetes Father Heart Disorder Father Fatal AR in his 70s Hypertension Father No Known Problems Sister Arthritis Brother COPD Brother Smoker Lung cancer Grandmother (Maternal) Review of patient's allergies indicates: Allergen Reactions Adhesive Tape Other reaction(s): RASH, ITCHY Alcohol Other reaction(s): Seizure Hydantoins Other reaction(s): Hives, Nausea Thioridazine Other reaction(s): SEIZURES Latex rash Phenytoin Phenytoin Sodium Rash Torsemide ? possible rash on legs and arms Wound Dressing Adhesive Itching and Rash documented in this encounter Nursing Notes * Luz Maria Cortez LPN - 04/10/2024 8:40 AM EDT Chief Complaint Patient presents with Follow Up Asthma MMRC Dyspnea Scale = 2 (On level ground, I walk slower than people of the same age because of breathlessness or have to stop for breath when walking at my own) Interm History/Respiratory Symptoms Cough: no Hemoptysis: no Sinus Symptoms: no Hospitalizations: no ED Trips: no Triggers: pollen,dogs,cats,weather changes Nocturnal: SOB CPAP/BiPAP/O2: bipap DME Supplier: [employer] Flu Vaccine: declined Travel Screening Question 04/10/2024 8:17 AM EDT - Filed by Patient Do you have any of the following new or worsening symptoms? None of these Have you recently been in contact with someone who was sick? No / Unsure Myc Visit Accident Related Question Question 04/10/2024 8:17 AM EDT - Filed by Patient Is this visit related to an accident? (i.e work, motor vehicle) No Asthma Control Test Question 04/10/2024 8:20 AM EDT - Filed by Patient Please select the best response to the five questions below, by clicking the appropriate option button. In the past 4 weeks, how much of the time did your asthma keep you from getting as much done at work, school or at home? (4) A little of the time During the past 4 weeks, how often have you had shortness of breath? (3) 3 to 6 times a week During the past 4 weeks, how often did your asthma symptoms (wheezing, coughing, shortness of breath, chest tightness or pain) wake you up at night or earlier than usual in the morning? (5) Not at all During the past 4 weeks, how often have you used your rescue inhaler or nebulizer medication (such as albuterol)? (5) Not at all How would you rate your asthma control during the past 4 weeks? (4) Well controlled Total ACT Adult Score (range: 5 - 25) 21 (Well Controlled) Total ACT Child Score (range: 0 - 27) Incomplete Flu Vaccine Questionnaire Question 04/10/2024 8:20 AM EDT - Filed by Patient Get your flu shot at your upcoming appointment. Please select one of the options below. I would like to discuss this with my clinician documented in this encounter Plan of Treatment Upcoming Encounters Date Type Department Care Team (Late st Contact Info) Description 05/03/2024 9:05 AM EDT Office Visit Urogynecology [facility] [address] [place] [address] Del Baron MD [address] [place] [address] Nurse Trae Tucker [facility] [address] [place] [address] 05/15/2024 1:00 PM EDT Office Visit Family Practice [facility] [address] [facility] [place] [address] Brian Salas, DO [address] [facility] [place] [address] 03/12/2025 11:20 AM EDT Office Visit Sleep Disorders Ctr [facility] [address] [place] [phone] Charlette Brannon, 132 [facility] [place] [address] 04/11/2025 8:20 AM EDT Office Visit Pulmonary Medicine, [facility] [address] [place] [address] Yo Abreu MD [address] [place] [address] Scheduled Procedures Name Priority Associated Diagnoses Date/Ti me COLONOSCOPY FLEXIBLE PROXIMA L DIAGNOSTIC Recall Special screening for malignant neoplasms, colon Health Maintenance Due Date Last Done Comments Cologuard 2008 Fecal Occult Blood Test 2008 Sigmoidoscopy 2008 DTap/Tdap Vaccines (2 - Td or Tdap) 08/19/2021 08/19/2011 Depression Monitoring 06/28/2023 06/28/2022 COVID-19 Vaccine (5 - 2022- season) 2024 06/19/2023, 05/05/2022, 06/08/2021, Additional history [...] as of this encounter Visit Diagnoses Diagnosis SOB (shortness of breath)- Primary Shortness of breath Pulmonary hypertension (HCC) Other chronic pulmonary heart diseases documented in this encounter Care Teams Manager Secondary Relationship Specialty Start Date End Date Brian Salas DO [facility] [address] [place] [place] [address] PCP - General Family Medicine 12/16/15 documented as of this encounter
--- OUTSIDE RECORDS SUMMARY | 2024-06-10 02:31 | External Medical Summary | Summary of Care ---
Author Name Unknown Organization [facility] Address [address] [facility] [place] [address] Phone [phone] Care Team Providers Care Consumer Recruiter Name Role Phone Maritza Brian Jasson PRATHER Primary Care Provider [phone] Reason for Visit * Reason Comments eRx-Medication Refill Encounter Details Date Type Department Care Team (Late st Contact Info) Description 03/23/2024 Refill Family Practice [facility] [address] [facility] [place] [address] Shannon Ramires PA-C [address] [facility] [place] [address] Moderate persistent asthma without complication Allergies Active Allergy Reactions Criticality Noted Date [...] as of this encounter (statuses as of 03/26/2024) Medications Medication Sig Dispensed Refills Start Date [...] MCG/ACT Inhalation Aerosol Powder Breath Activated (umeclidinium [place]) Inhale 1 Puff by mouth in the morning. 30 Each 3 Active Additional Information Patient not taking.Reported [...] EVERY MORNING 90 Capsule 3 4 Active Losartan Potassium 100 MG Oral Tablet (Cozaar) TAKE 1 TABLET BY MOUTH DAILY 28 Tablet 5 4 Active Carvedilol 25 MG Oral Tablet [...] MOUTH DAILY 60 Each 5 4 Active Breo Ellipta 200-25 MCG/ACT Inhalation Aerosol Powder Breath Activated (fluticasone furoate-vilanterol) Indications:Moderat e persistent asthma without complication INHALE 1 PUFF BY MOUTH DAILY 60 Each 6 4 03/26/20 24 Discontinued documented as of this encounter (statuses as of 03/26/2024) Active Problems Problem Noted Date Diagnosed Date [...] as of this encounter (statuses as of 03/26/2024) Resolved Problems Problem Noted Date Diagnosed Date [...] 1 09/25/2012 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/31/2010 10/08/19 11 assisted current use of ant icoagulant therapy 08/31/2010 [...] as of this encounter (statuses as of 03/26/2024) Immunizations Name Administration Dates Next Due COVID-19 mRNA, LNP-s, No Pre serve, 2-Dose Series (Moderna) 11/03/2020,10/06/2020 COVID-19 mRNA, LNP-s, No Pre serve, 2-Dose Series (Pfizer) 06/08/2021 Covid-19, Mrna, Lnp-s, Pf, B ivalent, 30 Mcg, IM, 12 yrs and above (Pfizer) 05/05/2022 H1N1 2009 Influenza, IM 08/15/2009 Hepatitis B, 20+ yrs 01/16/2014,04/06/2013,03/05 PPD 02/27/2013 Pneumococcal Conjugate Vacci ne, 20-valent ([id number]) 03/05/2022 Pneumococcal Polysaccharide PPV23 (Pneumovax) 03/31/2009 Seasonal [...] encounter Miscellaneous Notes * Telephone Encounter - Yany Crump [facility] - 03/26/2024 10:50 AM EDTSigned Prescriptions: Disp Refills Breo Ellipta 200-25 MCG/ACT Inhalation Aer*60 Each5 Sig: INHALE 1 PUFF BY MOUTH DAILYAuthorizing Provider: SHANNON RAMIRES AOrdering User: YANY CRUMP documented in this encounter Plan of Treatment Upcoming Encounters Date Type Department Care Team (Late st Contact Info) Description 04/10/2024 8:40 AM EDT [facility] [address] [place] [address] Yo Abreu MD [address] [place] [address] 05/03/2024 9:05 AM EDT Office Visit Urogynecology [facility] [address] [place] [address] Del Baron MD [address] [place] [address] Nurse Trae Tucker [facility] [address] [place] [address] 05/15/2024 1:00 PM EDT Office Visit Family Practice [facility] [address] [facility] [place], [place] [address] Brian Salas, DO [address] [facility] [place], [place] [address] 03/12/2025 11:20 AM EDT Office Visit Sleep Disorders Ctr [facility] [address] [place] [phone] Charlette Brannon, [address] [place] [address] Scheduled Procedures Name Priority Associated Diagnoses Date/Ti [...] Ratio 12/13/2025 12/13/2022 Lipid Panel 09/11/2026 09/11/2021, 11/0 11/2020, 04/17/2021, Additional history exists Colonoscopy 12/04/2031 [...] as of this encounter Visit Diagnoses Diagnosis Moderate persistent asthma without complication Unspecified asthma documented in this encounter Care Teams Consumer Recruiter Relationship Specialty Start Date End Date Brian Salas DO [address] [place] [address] PCP - General Family Medicine 12/16/15 documented as of this encounter
--- OUTSIDE RECORDS SUMMARY | 2024-06-10 02:32 | External Medical Summary | Summary of Care ---
Author Name Unknown Organization [facility] Address [address] [facility] [place] [address] Phone [phone] Care Team Providers Care Patient Service Associate Name Role Phone AramisBrian self Primary Care Provider [phone] Reason for Referral * Evaluate & Treat - Unlimited Visits (Within 10 days (routine)) - Authorized Specialty Diagnoses / Procedures Referred By Contac t Referred To Contact Physical Therapy / Physical Medicine And Rehab Diagnoses Bilateral radiating leg pain Rabia Gillespie MD [address] [facility] [place] [address] Referral ID Status Reason Start Date Expiration Date Visits Requested Visits Authorized [id number] Authorized Specialty Services Required 01/26/2024 999 999 Question Answer Referral Priority Within 10 days (routine) Where should this appointment be scheduled? Ana Reason for Visit * Reason Comments Acute Pt c/o pain in both legs, makes walking difficult. Also reports left leg is swollen. Encounter Details Date Type Department Care Team (Late st Contact Info) Description 01/26/2024 9:00 AM EDT Office Visit Family Practice [facility] [place] [address] [place] [address] Rabia Gillespie MD [address] [place] [address] Bilateral radiating leg pain*; Acquired hypothyroidism; Dyslipidemia; HTN, goal below 130/80; Chronic diastolic heart failure (HCC); Morbid obesity (HCC); DDD (degenerative disc disease), lumbar; S/P lumbar laminectomy; Mild intellectual disabilities Allergies Active Allergy Reactions Criticality Noted Date [...] as of this encounter (statuses as of 03/02/2024) Medications Medication Sig Dispensed Refills Start Date End Date Status lamoTRIgine (LAMICTAL) 200 MG TabletIndications:S chizoaffective disorder, chronic condition ([facility]) TAKE 1 TABLET BY MOUTH TWICE [...] (Neurontin)Indicati ons:Polyneuropathy in other diseases classified elsewhere ([facility]) Take 1 Cap by mouth at bedtime. 30 Cap 5 05/11/20 21 Active Sertraline HCl 100 MG Oral Tablet (Zoloft)Indications :Major depressive disorder with single episode, in partial remission ([facility]) Take 1 Tab by mouth daily. [...] evening. 30 Tablet 11 03/08/20 23 Active Incruse Ellipta 62.5 MCG/ACT Inhalation Aerosol Powder Breath Activated (umeclidinium [place]) Inhale 1 Puff by mouth in the morning. 30 Each 03/24/20 23 Active Additional Information Patient not taking.Reported on 01/26/2024 Myrbetriq 50 MG Oral Tablet Extended Release 24 Hour (Mirabegron ER) Take 1 Tablet by mouth in the morning. 90 Tablet 3 04/05/20 23 Active Paliperidone ER 6 MG Oral Tablet Extended Release 24 Hour (Invega) 06/30/20 23 Active Perphenazine 2 MG Oral Tablet (Trilafon) 06/30/20 23 Active Fluticasone Propionate 50 MCG/ACT Nasal Suspension (Flonase) Administer 2 Sprays into each nostril in the morning. 16 g 11 07/05/20 23 Active Triamcinolone Acetonide 55 MCG/ACT Nasal Aerosol (Nasacort Allergy 24HR)Indications:Al lergic rhinitis, unspecified seasonality, unspecified trigger Administer 2 Sprays into nostril in the morning. 16.9 mL 5 07/05/20 23 Active Spiriva Respimat 2.5 MCG/ACT Inhalation Aerosol SolutionIndications :SOB (shortness of breath) 2 puffs daily 4 g 11 07/11/20 23 Active hydrOXYzine HCl 50 MG Oral Tablet Take 1 Tablet by mouth every 6 hours as needed for Itching. 60 Tablet 3 07/28/20 23 Active Triamcinolone Acetonide 0.5 % External Cream (Aristocort)Indicat ions:Intrinsic eczema APPLY TOPICALLY TO AFFECTED AREA TWICE A DAY FOR 14 DAYS 45 g 1 08/04/19 24 Active Breo Ellipta 200-25 MCG/ACT Inhalation Aerosol Powder Breath Activated (fluticasone furoate-vilanterol) Indications:Moderat e persistent asthma without complication INHALE 1 PUFF BY MOUTH DAILY 60 Each 6 08/04/19 24 Active Hydroxychloroquine Sulfate 200 MG Oral Tablet (Plaquenil) TAKE 2 TABLETS BY MOUTH EVERY NIGHT AT BEDTIME 56 Tablet 2 08/29/19 24 Active tiZANidine HCl 4 MG Oral Tablet (Zanaflex)Indicatio ns:Acute pain of left shoulder TAKE 1 TABLET BY MOUTH EVERY 8 HOURS NEEDED FOR MUSCLE SPASMS 30 Tablet 5 09/19/19 24 Active hydrALAZINE HCl 50 MG Oral [...] MORNING 90 Capsule 3 09/23/19 24 Active Losartan Potassium 100 MG Oral Tablet (Cozaar) TAKE 1 TABLET BY MOUTH DAILY 28 Tablet 5 10/22/19 24 Active Carvedilol 25 MG Oral Tablet [...] 90 Tablet 3 03/08/20 23 024 Discontinued methylPREDNISolone 4 MG Oral Tablet Therapy Pack (Medrol Dosepack)Indication s:Rash and nonspecific skin eruption follow package directions 21 Tablet 07/05/20 23 024 Discontinued(Ma dication List Clean Up) Sulfamethoxazole-Tr imethoprim 800-160 MG Oral Tablet (Bactrim DS)Indications:Acut e cystitis with hematuria Take 1 Tablet by mouth in the morning and 1 Tablet before bedtime. Do all this for 3 days. Until gone. 6 Tablet 11/08/19 24 024 Discontinued Clotrimazole-Betame thasone 1-0.05 % External Cream (Lotrisone)Indicati ons:Rash of foot Apply topically to affected area 2 times a day for 28 days. To feet for 4 weeks, or until healed. 45 g 1 11/08/19 24 024 Discontinued Furosemide 40 MG Oral [...] as of this encounter (statuses as of 03/02/2024) Active Problems Problem Noted Date Diagnosed Date [...] as of this encounter (statuses as of 03/02/2024) Resolved Problems Problem Noted Date Diagnosed Date [...] 01/31/2013 11/29/2016 History of hearing loss 01/31/2013 0601/2023 Otitis media with effusion 01/31/2013 0 12/20/2014 Pulsatile tinnitus 01/31/2013 7 Incidental lung nodule, > 3mm and < 8mm 07/19/2011 03/27/2019 Overview: RUL f/u CT 09/2011 Adult body mass index 50.0-59.9 05/19/2011 02/16/2012 History of nonadherence to medical treatment 1 09/25/2012 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/31/2010 10/08/19 11 cardiothoracic icu rn current use of ant icoagulant therapy 08/31/2010 [...] as of this encounter (statuses as of 03/02/2024) Immunizations Name Administration Dates Next Due COVID-19 mRNA, LNP-s, No Pre serve, 2-Dose Series (Moderna) 11/03/2020,10/06/2020 COVID-19 mRNA, LNP-s, No Pre serve, 2-Dose Series (Pfizer) 06/08/2021 Covid-19, Mrna, Lnp-s, Pf, B ivalent, 30 Mcg, IM, 12 yrs and above (Pfizer) 05/05/2022 H1N1 2009 Influenza, IM 08/15/2009 Hepatitis B, 20+ yrs 01/16/2014,04/06/2013,03/05 PPD 02/27/2013 Pneumococcal Conjugate Vacci ne, 20-valent ([id number]) 03/05/2022 Pneumococcal Polysaccharide PPV23 (Pneumovax) 03/31/2009 Seasonal [...] Sign Reading Time Taken Comments Blood Pressure 130/86 01/26/2024 9:09 AM EDT Pulse 65 01/26/2024 9:09 AM EDT Temperature 36.5 C (97.7 F) 01/26/2024 9:09 AM ED T Respiratory Rate - - Oxygen Saturation 99% 01/26/2024 9:09 AM EDT Inhaled Oxygen Concentration - - Weight 133.8 kg (295 lb 0.6 oz) 01/26/2024 9:09 AM EDT Height - - Body Mass Index 49.1 04/05/2023 9:22 AM EDT documented in this encounter Progress Notes * Rabia Gillespie MD - 01/26/2024 9:22 AM EDT Subjective Chief Complaint Patient presents with Acute Pt c/o pain in both legs, makes walking difficult. Also reports left leg is swollen. HPI: Sofia Melton is a 58 year old female. Patient is unaccompanied. The following issues were addressed today: Patient presents today for acute visit for 1 year of bilateral leg pain. Getting worse, having trouble walking, uses a rollator to ambulate. Laying down or sitting down for a long time also makes thepain worse. States it starts in her groin and radiates downward. Has had some swelling in the left leg but no redness. Describes pain as dull and aching. At its worst is 10/10. Has not fallen but feels unsteady on her feet. She denies back pain. Occasionally needs help getting up out of chair. Takes Tylenol PRN, up to 2-3 times per week. Having numbness and tingling and feet, states this has beengoing on for several years and is no worse. Review of Systems: See HPI Objective BP 130/86 | Pulse 65 | Temp 36.5 C (97.7 F) (Tympanic) | Wt 133.8 kg (295 lb 0.6 oz) | SpO2 99%| BMI 49.10 kg/m | BSA 2.48 m Wt Readings from Last 3 Encounters: 01/26/24 133.8 kg (295 lb 0.6 oz) 11/08/23 134.1 kg (295 lb 9.6 oz) 09/05/23 (!) 138.8 kg (306 lb) BP Readings from Last 3 Encounters: 01/26/24 130/86 11/08/23 138/90 09/05/23 148/90 General: Well-appearing, no acute distress Extremities: Mild non-pitting LLE edema, bilateral LE without erythema, no calf tenderness to palpation Neurological: 5/5 strength with hip abduction and flexion, knee flexion and extension, and ankle dorsiflexion and plantar flexion bilaterally, sensation is grossly intact, gait is slowed Psychiatric: Appropriate mood and affect Assessment & Plan 1. Bilateral radiating leg pain Unclear etiology. This appears to be a chronic problem. Will update x-rays of the hips and lumbar spine. Feel she would benefit from PT given her ambulatory dysfunction. She is agreeable; referral ordered. Continue gabapentin. - XR HIP BILAT MIN 5 VIEWS INCLUDING AP OF PELVIS - XR L SPINE AP AND LATERAL - PHYSICAL THERAPY REFERRAL OP 2. Acquired hypothyroidism Recent TSH low. Medication adjusted, repeat TSH ordered. 3. Dyslipidemia Stable. Continue current medication(s). 4. HTN, goal below 130/80 Well-controlled. Continue current medication(s). 5. Chronic diastolic heart failure (HCC) Stable. Continue current medication(s). 6. Morbid obesity (HCC) 7. DDD (degenerative disc disease), lumbar 8. S/P lumbar laminectomy Update x-ray L-spine. Continue gabapentin. 9. Mild intellectual disabilities Return if symptoms worsen or fail to improve. This note was electronically signed by Rabia Gillespie MD documented in this encounter Nursing Notes * Holly Muñoz, MED ASSIST - 01/26/2024 9:12 AM EDT Chief Complaint Patient presents with Acute Pt c/o pain in both legs, makes walking difficult. Also reports left leg is swollen. documented in this encounter Plan of Treatment Upcoming Encounters Date Type Department Care Team (Late st Contact Info) Description 03/08/2024 10:00 AM EDT Office Visit Sleep Disorders Ctr [facility] [place] [address] [place] [phone] Charlette Brannon, DO [address] [place] [phone] 05/03/2024 9:05 AM EDT Office Visit Urogynecology Cristy [facility] [address] [place] [address] Del Baron MD [address] [place] [address] Nurse Trae Tucker [address] [place] [address] 05/15/2024 1:00 PM EDT Office Visit [facility] [address] [place] [address] Brian Salas, DO [address] [facility] [place] [address] Scheduled Procedures Name Priority Associated Diagnoses Date/Ti me COLONOSCOPY FLEXIBLE PROXIMA L DIAGNOSTIC Recall Special screening for malignant neoplasms, colon Scheduled Referrals Name Type Priority Associated Diagnoses Orde r Schedule PHYSICAL THERAPY REFERRAL OP Referral Within 10 days (routine) Bilateral radiating leg pain Ordered: 01/26/2024 Health Maintenance Due Date Last Done Comments [...] Not on filedocumented as of this encounter Procedures Procedure Name Priority Date/Time Associated Diagnosis Comments XR HIP BILAT MIN 5 VIEWS INCLUDING AP OF PELVIS Routine 01/31/2024 2:14 PM EDT Bilateral radiating leg pain XR L SPINE AP AND LATERAL Routine 01/31/2024 2:14 PM EDT Bilateral radiating leg pain documented in this encounter Results * XR L SPINE AP AND LATERAL (01/31/2024 2:14 PM EDT) Anatomical Region Laterality Modality Vertebra, Lspine Computed Radiog andrew 01/31/2024 1:26 PM EDT Impressions 02/06/2024 9:43 AM EDT IMPRESSION: 1. Somewhat increased dextroscoliosis centered at the L2-L3 level. Grade 1 anterolisthesis of L5 on S1. 2. Stable postsurgical fusion changes spanning L2 to L4 with internal fixation, no hardware complication. 3. Stable degenerative changes. THIS DOCUMENT HAS BEEN ELECTRONICALLY SIGNED BY BERNADINE DOUGLAS MD Narrative 02/06/2024 9:43 AM EDT PROCEDURE INFORMATION: Exam: XR Lumbosacral Spine Exam date and time: 01/31/2024 1:26 PM Age: 58 years old Clinical indication: Radiculopathy, site unspecified; Additional info: Bilateral leg pain, history of lumbar fusion TECHNIQUE: Imaging protocol: Radiologic exam of the lumbosacral spine. Views: 2 or 3 views. COMPARISON: CR L-SPINE AP 12/21/2021 4:00 PM FINDINGS: Bones/joints: Somewhat increased dextroscoliosis centered at the L2-L3 level. Stable postsurgical fusion changes spanning L2 to L4 with internal fixation, no hardware complication. Stable degenerative changes. Grade 1 anterolisthesis of L5 on S1. Soft tissues: Soft tissues unremarkable. Procedure Note Bernadine Douglas MD - 02/06/2024 PROCEDURE INFORMATION: Exam: XR Lumbosacral Spine Exam date and time: 01/31/2024 1:26 PM Age: 58 years old Clinical indication: Radiculopathy, site unspecified; Additional info: Bilateral leg pain, history of lumbar fusion TECHNIQUE: Imaging protocol: Radiologic exam of the lumbosacral spine. Views: 2 or 3 views. COMPARISON: CR L-SPINE AP 12/21/2021 4:00 PM FINDINGS: Bones/joints: Somewhat increased dextroscoliosis centered at the L2-D5rtnaz. Stable postsurgical fusion changes spanning L2 to L4 with internalfixation, no hardware complication. Stable degenerative changes. Grade 1anterolisthesis of L5 on S1. Soft tissues: Soft tissues unremarkable. IMPRESSION IMPRESSION: 1. Somewhat increased dextroscoliosis centered at the L2-L3 level. Grade1 anterolisthesis of L5 on S1. 2. Stable postsurgical fusion changes spanning L2 to L4 with internal fixation, no hardware complication. 3. Stable degenerative changes. THIS DOCUMENT HAS BEEN ELECTRONICALLY SIGNED BY BERNADINE DOUGLAS MD Rabia Gillespie MD RADIOLOGY ([facility]) * XR HIP BILAT MIN 5 VIEWS INCLUDING AP OF PELVIS (01/31/2024 2:14 PM EDT) Anatomical Region Laterality Modality Lower Extremity, Hip, Pelvis Com puted Radiography 01/31/2024 1:26 PM EDT Impressions 02/06/2024 9:36 AM EDT IMPRESSION: No acute abnormality. THIS DOCUMENT HAS BEEN ELECTRONICALLY SIGNED BY BERNADINE DOUGLAS MD Narrative 02/06/2024 9:36 AM EDT PROCEDURE INFORMATION: Exam: XR Bilateral Hips Exam date and time: 01/31/2024 1:26 PM Age: 58 years old Clinical indication: Radiculopathy, site unspecified; Additional info: Bilateral leg and groin pain TECHNIQUE: Imaging protocol: Radiologic exam of the bilateral hips. Views: 5 or more views of hips with pelvis when performed. COMPARISON: DX XR HIP UNILAT 2-3 VIEWS INCLUDING AP PELVIS 11/22/2018 8:02 AM FINDINGS: Bones/joints: No fracture or osseous lesion. Articular spaces are maintained. Stable postsurgical changes of the lower lumbar spine. Soft tissues: Soft tissues unremarkable. Procedure Note Bernadine Douglas MD - 02/06/2024 PROCEDURE INFORMATION: Exam: XR Bilateral Hips Exam date and time: 01/31/2024 1:26 PM Age: 58 years old Clinical indication: Radiculopathy, site unspecified; Additional info: Bilateral leg and groin pain TECHNIQUE: Imaging protocol: Radiologic exam of the bilateral hips. Views: 5 or more views of hips with pelvis when performed. COMPARISON: DX XR HIP UNILAT 2-3 VIEWS INCLUDING AP PELVIS 11/22/2018 8:02 AM FINDINGS: Bones/joints: No fracture or osseous lesion. Articular spaces aremaintained. Stable postsurgical changes of the lower lumbar spine. Soft tissues: Soft tissues unremarkable. IMPRESSION IMPRESSION: No acute abnormality. THIS DOCUMENT HAS BEEN ELECTRONICALLY SIGNED BY BERNADINE DOUGLAS MD Rabia Gillespie MD RADIOLOGY ([facility]) documented in this encounter Visit Diagnoses Diagnosis Bilateral radiating leg pain- Primary Neuralgia, neuritis, and radiculitis, unspecified Acquired hypothyroidism Unspecified hypothyroidism Dyslipidemia Other and unspecified hyperlipidemia HTN, goal below 130/80 Unspecified essential hypertension Chronic diastolic heart failure (HCC) Chronic diastolic heart failure Morbid obesity (HCC) Morbid obesity DDD (degenerative disc disease), lumbar Degeneration of lumbar or lumbosacral intervertebral disc S/P lumbar laminectomy Other postprocedural status Mild intellectual disabilities documented in this encounter Care Teams Patient Service Associate Relationship Specialty Start Date End Date Brian Salas DO [address] [facility] [place] [address] PCP - General Family Medicine 12/16/15 documented as of this encounter"
--- OUTSIDE RECORDS SUMMARY | 2024-06-10 02:32 | External Medical Summary | Summary of Care ---
Author Name Unknown Organization [facility] Address [address] [facility] [place] [address] Phone [phone] Care Team Providers Care Concrete Mixer Loader Truck Mounted Name Role Phone AramisBrian self Jasson PRATHER Primary Care Provider [phone] Reason for Visit * Reason Onset Date Comments Other 03/09/2024 DME order Encounter Details Date Type Department Care Team (Late st Contact Info) Description 03/09/2024 Telephone [facility] Disorders [facility] [place] [address] [place] [phone] Charlette Brannon DO [address] [place] [address] Other (DME order ) Allergies Active Allergy Reactions Criticality Noted Date [...] as of this encounter (statuses as of 03/09/2024) Medications Medication Sig Dispensed Refills Start Date [...] in other diseases classified elsewhere ([facility]) Take 1 Cap by mouth at bedtime. 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 30 [...] MCG/ACT Inhalation Aerosol Powder Breath Activated (umeclidinium [place]) Inhale 1 Puff by mouth in the [...] below 140/90,Lower extremity edema,PAF (paroxysmal atrial 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) ([facility]),ROSALES (dyspnea on exertion),Dyslipidemi a, goal LDL below 100 TAKE 1 TABLET BY MOUTH THREE TIMES A DAY 270 Tablet 3 09/23/2023 Active hydroCHLOROthiazide 12.5 MG Oral Capsule (Hydrodiuril)Indicati ons:HTN, goal below 140/90,Shortness of breath TAKE 1 CAPSULE BY MOUTH EVERY MORNING 90 Capsule 3 09/23/2023 Active Losartan Potassium 100 MG Oral Tablet (Cozaar) TAKE 1 TABLET BY MOUTH DAILY 28 Tablet 5 10/22/2023 Active Carvedilol 25 MG Oral Tablet (Coreg) TAKE 1 TABLET BY MOUTH TWICE A DAY WITH FOOD 56 Tablet 8 11/16/2023 Active Sotalol HCl 80 MG Oral Tablet (Betapace)Indications :PAF (paroxysmal atrial 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) ([facility]) TAKE 1/2 TABLET BY MOUTH TWICE A [...] (Lasix)Indications:He art failure, diastolic, with acute decompensation ([facility]) TAKE 1 TABLET BY MOUTH TWICE A DAY 180 Tablet 1 02/29/2024 Active Potassium Chloride ER 10 MEQ Oral Tablet Extended ReleaseIndications:HT N, goal below 140/90,PAF (paroxysmal atrial 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) ([facility]),ROSALES (dyspnea on exertion) TAKE 1 TABLET BY MOUTH DAILY 90 Tablet 1 02/29/2024 Active documented as of this encounter (statuses as of 03/09/2024) Active Problems Problem Noted Date Diagnosed Date [...] as of this encounter (statuses as of 03/09/2024) Resolved Problems Problem Noted Date Diagnosed Date [...] 1 09/25/2012 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/31/2010 10/08/19 11 skilled nursing current use of ant icoagulant therapy 08/31/2010 05/19/2011 Overview: ICD-10 update of inactive term Dysfunction of eustachian tube 08/17/2010 05/19/2011 Hypersomnia with sleep apnea 08/17/2010 01/15/2023 OTITIS MEDIA, CHRONIC, LEFT 08/17/2010 05/19/2011 Abnormality of gait 03/24/2010 06/18/20 14 ACTIVE CASE MANAGEMENT Kadie Hernandez [phone] 01/06/20 10 05/18/2010 Overview: ACTIVE CASE MANAGEMENT Kadie David [phone] Dyslipidemia, goal LDL below 130 [...] as of this encounter (statuses as of 03/09/2024) Immunizations Name Administration Dates Next Due COVID-19 mRNA, LNP-s, No Pre serve, 2-Dose Series (Moderna) 11/03/2020,10/06/2020 COVID-19 mRNA, LNP-s, No Pre serve, 2-Dose Series (Pfizer) 06/08/2021 Covid-19, Mrna, Lnp-s, Pf, B ivalent, 30 Mcg, IM, 12 yrs and above (Pfizer) 05/05/2022 H1N1 2009 Influenza, IM 08/15/2009 Hepatitis B, 20+ yrs 01/16/2014,04/06/2013,03/05 PPD 02/27/2013 Pneumococcal Conjugate Vacci ne, 20-valent ([id number]) 03/05/2022 Pneumococcal Polysaccharide PPV23 (Pneumovax) 03/31/2009 Seasonal [...] encounter Miscellaneous Notes * Telephone Encounter - Tessie Abad OSA - 03/09/2024 9:49 AM EDT DME order for CPAP supplies submitted to [employer]. documented in this encounter Plan of Treatment Upcoming Encounters Date Type Department Care Team (Late st Contact Info) Description 04/05/2024 8:40 AM EDT Office Visit Pulmonary Medicine, [address] [place] [address] Yo Abreu MD [address] [place] [facility] [address] 05/03/2024 9:05 AM EDT Office Visit Urogynecology Cristy [facility] [address] [facility] [place] [address] Del Baron MD [address] [place] [address] Nurse Trae Tucker [address] [place] [address] 05/15/2024 1:00 PM EDT Office Visit Family Practice [facility] [address] [facility] [place] [address] Brian Salas, DO [address] [facility] [place] [address] 03/12/2025 11:20 AM EDT Office Visit [facility] Disorders Ctr [facility] [place] [address] [facility] [place] [phone] Charlette Brannon DO [address] [facility] [place] [address] Scheduled Procedures Name Priority Associated Diagnoses Date/Ti [...] filedocumented as of this encounter Care Teams Concrete Mixer Loader Truck Mounted Relationship Specialty Start Date End Date Brian Salas DO [address] [place] [address] PCP - General Family Medicine 12/16/15 documented as of this encounter
--- OUTSIDE RECORDS SUMMARY | 2024-06-10 02:32 | External Medical Summary | Summary of Care ---
Author Name Unknown Organization [facility] [address] [facility] [address] Phone [phone] Care Team Providers Care Insulation Professional Name Role Phone Brian Salas DO Primary Care Provider [phone] Reason for Visit * Reason Onset Date Comments Advice 03/06/2024 Encounter Details Date Type Department Care Team (Late st Contact Info) Description 03/06/2024 Telephone Family Practice [facility] [address] [place] [address] Brian Salas DO [address] [facility] [address] Advice Allergies Active Allergy Reactions Criticality Noted [...] as of this encounter (statuses as of 03/06/2024) Medications Medication Sig Dispensed Refills Start Date [...] (Neurontin)Indication s:Polyneuropathy in other diseases classified elsewhere ([facility]) Take 1 Cap by mouth at bedtime. 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, in partial remission ([facility]) Take 1 Tab by [...] MCG/ACT Inhalation Aerosol Powder Breath Activated (umeclidinium [place]) Inhale 1 Puff by mouth in the [...] 100 &NOTIFY SERVICE IF DOSE 28 Tablet 11/16/2023 Active Levothyroxine Sodium 75 MCG Oral [...] (Lasix)Indications:He art failure, diastolic, with acute decompensation ([facility]) TAKE 1 TABLET BY MOUTH TWICE A DAY 180 Tablet 02/29/2024 Active Potassium Chloride ER 10 MEQ Oral Tablet Extended ReleaseIndications:HT N, goal below 140/90,PAF (paroxysmal atrial 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) (HCC),ROSALES (dyspnea on exertion) TAKE 1 TABLET BY MOUTH DAILY 90 Tablet 1 02/29/2024 Active documented as of this encounter (statuses as of 03/06/2024) Active Problems Problem Noted Date Diagnosed Date [...] as of this encounter (statuses as of 03/06/2024) Resolved Problems Problem Noted Date Diagnosed Date [...] 1 09/25/2012 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/31/2010 10/08/19 11 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 08/31/2010 05/19/2011 Overview: ICD-10 update of inactive term Dysfunction of eustachian tube 08/17/2010 05/19/2011 Hypersomnia with sleep apnea 08/17/2010 01/15/2023 OTITIS MEDIA, CHRONIC, LEFT 08/17/2010 05/19/2011 Abnormality of gait 03/24/2010 06/18/20 14 ACTIVE CASE MANAGEMENT Kadie Martínezace [phone] 01/06/20 10 05/18/2010 Overview: ACTIVE [...] as of this encounter (statuses as of 03/06/2024) Immunizations Name Administration Dates Next Due COVID-19 mRNA, LNP-s, No Pre serve, 2-Dose Series (Moderna) 11/03/2020,10/06/2020 COVID-19 mRNA, LNP-s, No Pre serve, 2-Dose Series (Pfizer) 06/08/2021 Covid-19, Mrna, Lnp-s, Pf, B ivalent, 30 Mcg, IM, 12 yrs and above (Pfizer) 05/05/2022 H1N1 2009 Influenza, IM 08/15/2009 Hepatitis B, 20+ yrs 01/16/2014,04/06/2013,03/05 PPD 02/27/2013 Pneumococcal Conjugate Vacci ne, 20-valent ([id number]) 03/05/2022 Pneumococcal Polysaccharide PPV23 (Pneumovax) 03/31/2009 Seasonal [...] encounter Miscellaneous Notes * Telephone Encounter - Meryl Clark LPN - 03/06/2024 2:49 PM EDT Faxed; confirmation received. [employer] message sent to make patient aware. * Telephone Encounter - Brian Salas DO - 03/06/2024 2:45 PM EDT I'll bring to you. Please fax and let her know it was sent. * Telephone Encounter - Charito Morales RN - 03/06/2024 1:44 PM EDT Pt says that she needs to be in an apartment that she can walk right in. Her apt now is on the end and it is difficult because she has to turn a corner to get into her living room, it's not easy withher walker. Pt says that Dr. Salas has to write a letter saying pt has to have a handicapped apt. Fax letter to [facility] at [phone]. * Telephone Encounter - Jada Farrar OSA - 03/06/2024 12:02 PM EDT Patient is requesting to speak with PCP's nurse about getting a handicap accessible apartment in the building she lives. Please advise. documented in this encounter Plan of Treatment Upcoming Encounters Date Type Department Care Team (Late st Contact Info) Description 03/08/2024 10:00 AM EDT Office Visit [facility]tr [facility] [place] [address] [place] [phone] Charlette Brannon DO [address] [place] [address] 05/03/2024 9:05 AM EDT Office Visit Urogynecology Cristy Tucker [address] [place] [address] Del Baron MD [address] [place] [address] Nurse Trae Tucker [address] [place] [address] 05/15/2024 1:00 PM EDT Office Visit [facility] [address] [place] [address] Brian Salas DO [address] [facility] [place] [address] Scheduled Procedures Name Priority Associated Diagnoses Date/Ti [...] filedocumented as of this encounter Care Teams Insulation Professional Relationship Specialty Start Date End Date Brian Salas DO [address] [place] [address] PCP - General Family Medicine 12/16/15 documented as of this encounter
--- OUTSIDE RECORDS SUMMARY | 2024-06-10 02:32 | External Medical Summary | Summary of Care ---
Author Name Unknown Organization [facility] Address [address] [facility] [place] [address] Phone [phone] Care Team Providers Care Manager Consumer Insights Name Role Phone AramisBrian self Jasson PRATHER Primary Care Provider [phone] Reason for Visit * Reason Comments Follow Up Encounter Details Date Type Department Care Team (Late st Contact Info) Description 03/08/2024 10:00 AM EDT Office Visit Sleep Disorders Ctr [facility] [address] [place] [address] Charlette Brannon DO [address] [place] [address] Obstructive sleep apnea* Allergies Active Allergy Reactions Criticality Noted Date [...] as of this encounter (statuses as of 03/08/2024) Medications Medication Sig Dispensed Refills Start Date [...] (Neurontin)Indication s:Polyneuropathy in other diseases classified elsewhere ([facility]) Take 1 Cap by mouth at bedtime. 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 30 [...] MCG/ACT Inhalation Aerosol Powder Breath Activated (umeclidinium Stoddard) Inhale 1 Puff by mouth in the [...] Oral Tablet (Betapace)Indications :PAF (paroxysmal atrial 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) ([facility]) TAKE 1/2 TABLET BY MOUTH TWICE A [...] (Lasix)Indications:He art failure, diastolic, with acute decompensation ([facility]) TAKE 1 TABLET BY MOUTH TWICE A DAY 180 Tablet 1 02/29/2024 Active Potassium Chloride ER 10 MEQ Oral Tablet Extended ReleaseIndications:HT N, goal below 140/90,PAF (paroxysmal atrial 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) (HCC),ROSALES (dyspnea on exertion) TAKE 1 TABLET BY MOUTH DAILY 90 Tablet 1 02/29/2024 Active documented as of this encounter (statuses as of 03/08/2024) Active Problems Problem Noted Date Diagnosed Date [...] as of this encounter (statuses as of 03/08/2024) Resolved Problems Problem Noted Date Diagnosed Date [...] as of this encounter (statuses as of 03/08/2024) Immunizations Name Administration Dates Next Due COVID-19 mRNA, LNP-s, No Pre serve, 2-Dose Series (Moderna) 11/03/2020,10/06/2020 COVID-19 mRNA, LNP-s, No Pre serve, 2-Dose Series (Pfizer) 06/08/2021 Covid-19, Mrna, Lnp-s, Pf, B ivalent, 30 Mcg, IM, 12 yrs and above (Pfizer) 05/05/2022 H1N1 2009 Influenza, IM 08/15/2009 Hepatitis B, 20+ yrs 01/16/2014,04/06/2013,03/05 PPD 02/27/2013 Pneumococcal Conjugate Vacci ne, 20-valent ([id number]) 03/05/2022 Pneumococcal Polysaccharide PPV23 (Pneumovax) 03/31/2009 Seasonal [...] Sign Reading Time Taken Comments Blood Pressure 124/84 03/08/2024 9:32 AM EDT Pulse 77 03/08/2024 9:32 AM EDT Temperature 36.9 C (98.5 F) 03/08/2024 9:32 AM ED T Respiratory Rate 22 03/08/2024 9:32 AM EDT Oxygen Saturation 94% 03/08/2024 9:32 AM EDT ra, rest Inhaled Oxygen Concentration - - Weight 131.5 kg (290 lb) 03/08/2024 9:32 AM EDT Height 161.3 cm (5' 3.5") 03/08/2024 9:32 AM EDT Body Mass Index 50.57 03/08/2024 9:32 AM EDT documented in this encounter Progress Notes * Charlette Brannon, DO - 03/08/2024 10:10 AM EDT Sleep Medicine Follow-Up HISTORY: Sofia Melton is a 58 year old female with hx HTN, A-fib, asthma, epilepsy, GERD, bipolar disorder, seen today for follow up of MAURO and RLS. She was previously diagnosed with and treated for MAURO: PSG 2005: AHI 15.4; poor PAP tolerance, threw CPAP out. She felt like she could not breathe right while wearing the CPAP. PSG 2010: AHI 18.8, not yet eligible for a new CPAP through insurance so did not start therapy. 2014: re-evaluated by Dr. rCump; additional testing and tx for MAURO was declined at that time. Patient was seen by me on 01/22/21 with high suspicion for MAURO noted during a hospitalization for hypertensive emergency. She endorsed excessive sleepiness, headaches, ROSALES, choking/gasping awakenings,RLS sxs (RLS rating scale 28). [place] was 3, FOSQ 29. Split-night PSG 02/25/2021: AHI 11.1, REM AHI 30.4, SpO2 jermaine 63%, time <89% 343.2 min (full study), + hypoventilation in REM sleep. Titration of CPAP - and BiPAP 07/08 to 19/07; optimal settingnot determined. Started autoBiPAP 12-25 cwp PS 8 cwp. 06/05/21: doing okay with BiPAP, sometimes still getting sleepy. [place] 6. Ordered nocturnal oximetry and recheck iron levels w/ ferritin. Ferritin 13; referred to Hematology for iron infusions. 07/2021: fatigue and CARRILLO despite BiPAP use, concern for hypoventilation contributing; adjusted PS to10 cwp. 11/27/21: iron infusions did not seem to help RLS-like sxs. [place] 11, RLS rating scale 26. Residual AHI 4.8 on autoBiPAP 12-25, PS 10. Trial increase in Requip to 1 mg in the morning and 2 mg at night (had been on 1 mg BID) (though question whether sxs are neuropathy rather than RLS). 02/11/22: doing fine with BiPAP. Legs bothersome, not improved with ropinirole. [place] 11, RLS rating scale 29. Suspect leg sxs to be neuropathy rather than RLS. Planned to taper off of ropinirole. Consider increasing gabapentin (had previously been reduced, unsure why, messaged PCP), and suggest moving HS dose to 1-1.5 hours prior to bedtime. Nocturnal oximetry 02/15-, on BiPAP and RA BiPAP used night of study with residual AHI 1.2. Baseline SpO2 94% SpO2 jermaine 78% Time <= 88% 4min 53sec Time <= 89% 9min 23sec Last seen 03/03/23. Doing pretty well with BiPAP, though waking up more often overnight (which she suspected was due to depression; had f/u upcoming with Psychiatry). [place] 2. AHI 1.9 on autoBiPAP 12-25, PS 10 cwp. Ordered increase in pressure support to 11 due to occasional morning headache and borderline hypoxemia, however, not able to increase PS higher than 10 on VAuto setting. Using autoBiPAP 12-25, PS 10 cmH2O. She continues to feel pretty good with the BiPAP. Morning headaches have resolved. Nighttime awakenings: varying, sometimes sleeps straight through, sometimes up a lot with overactive bladder. Subjective PAP adherence: good Snoring on PAP: not that she is aware of Daytime sleepiness: no Drowsy driving: N/A (does not drive) Mask leak: no Dry nose or dry mouth: no Aerophagia: no Morning headaches: no Recent weight change: lost about 30 lbs in the past year. Intentional (limits sweets). [place] Sleepiness Scale: 2 [place] Sleepiness Scale Question 03/08/2024 9:35 AM EDT - Filed by Shannon Chapin LPN What is the chance you will doze off in the following situation? Sitting and reading No chance of dozing Watching TV Moderate chance of dozing Sitting inactive in a public place, such as a theater or meeting No chance of dozing As a passenger in a car for an hour without a break No chance of dozing Lying down to rest in the afternoon when circumstances permit No chance of dozing When sitting and talking to someone No chance of dozing When sitting quietly after lunch without alcohol No chance of dozing In a car, while stopped for a few minutes in traffic No chance of dozing Score (range: 0 - 24) 2 BiPAP Compliance: Report date: 03/04/24 % total days used: 97% % days used > 4 hours: 90% Average hours per day used: 6h 37m Large leak: yes AHI: 6.7 /hr Median pressure: 22.1/12.1 cmH2O 95%ile pressure: 24/14 cmH2O Pressure settin-25, PS 10 cmH2O Equipment: DME Provider is [employer] Uses a Evi 10 VAuto. Additional changes in health in the interim of care: no Patient Active Problem List Diagnosis HTN, goal [...] acute decompensation (HCC) PAF (paroxysmal atrial 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) (HCC) Current Outpatient Medications Medication Sig Dispense Refill Furosemide 40 MG Oral Tablet (Lasix) TAKE 1 TABLET BY MOUTH TWICE A DAY 180 Tablet 1 Potassium Chloride ER 10 MEQ Oral Tablet Extended Release TAKE 1 TABLET BY MOUTH DAILY 90 Tablet 1 Rosuvastatin Calcium 5 MG Oral Tablet (Crestor) TAKE 1 TABLET BY MOUTH DAILY 90 Tablet 0 Montelukast Sodium 10 MG Oral Tablet (Singulair) Take 1 Tablet by mouth at bedtime. 30 Tablet 6 Levothyroxine Sodium 150 MCG Oral Tablet (Levoxyl) Take 1 Tablet by mouth daily first thing in the morning. In addition to 75 mcg dose. 90 Tablet 1 Carvedilol 25 MG Oral Tablet (Coreg) TAKE 1 TABLET BY MOUTH TWICE A DAY WITH FOOD 56 Tablet 8 Levothyroxine Sodium 75 MCG Oral Tablet (Levoxyl) Take 1 Tablet by mouth in the morning. (at least 30 min prior to breakfast or other meds). Take in addition to 150 mcg dose. 30 Tablet 11 Sotalol HCl 80 MG Oral Tablet (Betapace) TAKE 1/2 TABLET BY MOUTH TWICE A DAY *HOLD FOR HEART RATE LESS THAN 60 OR SYSTOLIC BLOOD PRESSURE LESS THAN 100 &NOTIFY SERVICE IF DOSE 28 Tablet 8 Losartan Potassium 100 MG Oral Tablet (Cozaar) TAKE 1 TABLET BY MOUTH DAILY 28 Tablet 5 hydrALAZINE HCl 50 MG Oral Tablet (Apresoline) TAKE 1 TABLET BY MOUTH THREE TIMES A DAY 270 Tablet 3 hydroCHLOROthiazide 12.5 MG Oral Capsule (Hydrodiuril) TAKE 1 CAPSULE BY MOUTH EVERY MORNING 90 Capsule 3 tiZANidine HCl 4 MG Oral Tablet (Zanaflex) TAKE 1 TABLET BY MOUTH EVERY 8 HOURS NEEDED FOR MUSCLE SPASMS 30 Tablet 5 Hydroxychloroquine Sulfate 200 MG Oral Tablet (Plaquenil) TAKE 2 TABLETS BY MOUTH EVERY NIGHT AT BEDTIME 56 Tablet 2 Breo Ellipta 200-25 MCG/ACT Inhalation Aerosol Powder Breath Activated (fluticasone furoate-vilanterol) INHALE 1 PUFF BY MOUTH DAILY 60 Each 6 Triamcinolone Acetonide 0.5 % External Cream (Aristocort) APPLY TOPICALLY TO AFFECTED AREA TWICE A DAY FOR 14 DAYS 45 g 1 hydrOXYzine HCl 50 MG Oral Tablet Take 1 Tablet by mouth every 6 hours as needed for Itching. 60 Tablet 3 Spiriva Respimat 2.5 MCG/ACT Inhalation Aerosol Solution 2 puffs daily 4 g 11 Fluticasone Propionate 50 MCG/ACT Nasal Suspension (Flonase) Administer 2 Sprays into each nostril in the morning. 16 g 11 Paliperidone ER 6 MG Oral Tablet Extended Release 24 Hour (Invega) Perphenazine 2 MG Oral Tablet (Trilafon) Triamcinolone Acetonide 55 MCG/ACT Nasal Aerosol (Nasacort Allergy 24HR) Administer 2 Sprays into nostril in the morning. 16.9 mL 5 Myrbetriq 50 MG Oral Tablet Extended Release 24 Hour (Mirabegron ER) Take 1 Tablet by mouth in the morning. 90 Tablet 3 Levocetirizine Dihydrochloride 5 MG Oral Tablet (Xyzal Allergy 24HR) Take 1 Tablet by mouth every evening. 30 Tablet 11 DULoxetine HCl 30 MG Oral Capsule Delayed Release Particles (Cymbalta) TAKE 1 CAPSULE BY MOUTH DAILY *DO NOT CUT, CRUSH OR CHEW* 28 Capsule 9 Pantoprazole Sodium 40 MG Oral Tablet Delayed Release (Protonix) Take 1 Tablet by mouth in the morning. 90 Tablet 3 Ventolin HFA 108 (90 Base) MCG/ACT Inhalation Aerosol Solution INHALE 2 PUFFS BY MOUTH EVERY FOUR HOURS NEEDED FOR WHEEZING 18 g 5 busPIRone HCl 10 MG Oral Tablet (Buspar) Perphenazine 8 MG Oral Tablet Vitron-C 65-125 MG Oral Tablet (Iron-Vitamin C) Take by mouth 1 Tablet in the morning AND 1 Tablet before bedtime. 180 Tablet 3 BiPAP every night at bedtime . Vitamin D3 50 MCG (2000 UT) Oral Capsule Take by mouth 1 Capsule in the morning. 30 Capsule 5 Paliperidone ER 9 MG Oral Tablet Extended Release 24 Hour Take by mouth . Systane 0.4-0.3 % Ophthalmic Solution (Polyethyl Glycol-Propyl Glycol) Instill 1 Drop into both eyes as needed for Dry eyes (may use 3- 4 times daily). Sertraline HCl 100 MG Oral Tablet (Zoloft) Take 1 Tab by mouth daily. 30 Tab 11 Gabapentin 300 MG Oral Capsule (Neurontin) Take 1 Cap by mouth at bedtime. 30 Cap 5 Melatonin 3 MG Oral Capsule Take 1 Cap by mouth at bedtime. 90 Cap 3 Vitamin B-2 100 MG Oral Tablet (vitamin B-2) TAKE 4 TABLETS (400MG) BY MOUTH DAILY 112 Tab 4 lamoTRIgine (LAMICTAL) 200 MG Tablet TAKE 1 TABLET BY MOUTH TWICE DAILY MOOD DISORDER 180 Tab 1 Incruse Ellipta 62.5 MCG/ACT Inhalation Aerosol Powder Breath Activated (umeclidinium Stoddard) Inhale 1 Puff by mouth in the morning. (Patient not taking: Reported on 01/26/2024) 30 Each 11 Mirtazapine 30 MG Oral Tablet (REMERON) TAKE 1 TABLET BY MOUTH EVERYDAY AT BEDTIME 30 Tab 5 No current facility-administered medications for this visit. PHYSICAL EXAM: Filed Vitals: 03/08/24 0932 BP: 124/84 Pulse: 77 Resp: 22 Temp: 36.9 C (98.5 F) TempSrc: Tympanic SpO2: 94% Weight: 131.5 kg (290 lb) Height: 1.613 m (5' 3.5") Body mass index is 50.57 kg/m. General: alert, no acute distress Head: NC/AT Lungs: normal respiratory effort Neuro: speech clear and appropriate ASSESSMENT/PLAN: Obstructive sleep apnea - good adherence; encourage continued use of BiPAP with all sleep - good efficacy of therapy (mildly elevated residual AHI in the setting of large leak); continue PAP at current setting 12-25, PS 10 cmH2O - DME: [employer] - Routine cleaning and change of supplies as needed. - Weight loss can result in improvement in the patient's nocturnal respiratory events. She has lostsome weight in the past year. - Continue to avoid driving when feeling sleepy/drowsy. She notes the Spiriva is difficult to work with (hard to turn). I see that she is due for Pulmonaryfollow-up, will request this be scheduled at check-out, so she can discuss the inhaler with a pulmonary provider. Follow-up with Sleep Medicine in 1 year. Charlette Brannon DO documented in this encounter Nursing Notes * Shannon Chapin LPN - 03/08/2024 9:27 AM EDT Pt for f/u MAURO on BIPAP. DME - [employer] [place] Sleepiness Scale Question 03/08/2024 9:35 AM EDT - Filed by Shannon Chapin LPN What is the chance you will doze off in the following situation? Sitting and reading No chance of dozing Watching TV Moderate chance of dozing Sitting inactive in a public place, such as a theater or meeting No chance of dozing As a passenger in a car for an hour without a break No chance of dozing Lying down to rest in the afternoon when circumstances permit No chance of dozing When sitting and talking to someone No chance of dozing When sitting quietly after lunch without alcohol No chance of dozing In a car, while stopped for a few minutes in traffic No chance of dozing Score (range: 0 - 24) 2 documented in this encounter Plan of Treatment Upcoming Encounters Date Type Department Care Team (Late st Contact Info) Description 04/05/2024 8:40 AM EDT Office Visit Pulmonary Medicine, [address] [place] [address] Yo Abreu MD [address] [place] [address] 05/03/2024 9:05 AM EDT [facility] [address] [facility] [place] [address] Del Baron MD [address] [place] [address] Nurse Trae Tucker [facility] [address] [place] [address] 05/15/2024 1:00 PM EDT Office Visit Family Practice [facility] [address] [facility] [place], [place] [address] Brian Salas, DO [address] [facility] [place] [address] 03/12/2025 11:20 AM EDT Office Visit Sleep Disorders Ctr [facility] [address] [place] [phone] Charlette Brannon, [address] [place] [address] Scheduled Procedures Name Priority Associated Diagnoses Date/Ti [...] as of this encounter Visit Diagnoses Diagnosis Obstructive sleep apnea- Primary Obstructive sleep apnea (adult) (pediatric) documented in this encounter Care Teams Manager Consumer Insights Relationship Specialty Start Date End Date Brian Salas DO [address] [place] [address] [place] [address] PCP - General Family Medicine 12/16/15 documented as of this encounter
--- OUTSIDE RECORDS SUMMARY | 2024-06-10 02:32 | External Medical Summary | Summary of Care ---
Author Name Unknown Organization [facility] Address [address] [place] [facility] [place] [address] Phone [phone] Care Team Providers Care Scooter Mechanic Name Role Phone Brian Salas DO Primary Care Provider [phone] Reason for Visit * Reason Onset Date Comments Advice 03/06/2024 Fax 03/06/2024 Re faxed letter. Encounter Details Date Type Department Care Team (Late st Contact Info) Description 03/06/2024 Telephone Family Practice [facility] [place] [address] [facility] [place] [address] Brian Salas DO [address] [place] [address] Advice; Fax (Re faxed letter.) Allergies Active Allergy Reactions Criticality Noted Date [...] as of this encounter (statuses as of 03/12/2024) Medications Medication Sig Dispensed Refills Start Date [...] MCG/ACT Inhalation Aerosol Powder Breath Activated (umeclidinium [place]) Inhale 1 Puff by mouth in the [...] TWICE A DAY WITH FOOD 56 Tablet 11/16/2023 Active Sotalol HCl 80 MG Oral [...] (Lasix)Indications:He art failure, diastolic, with acute decompensation ([facility]) TAKE 1 TABLET BY MOUTH TWICE A DAY 180 Tablet 1 02/29/2024 Active Potassium Chloride ER 10 MEQ Oral Tablet Extended ReleaseIndications:HT N, goal below 140/90,PAF (paroxysmal atrial 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) (HCC),ROSALES (dyspnea on exertion) TAKE 1 TABLET BY MOUTH DAILY 90 Tablet 1 02/29/2024 Active documented as of this encounter (statuses as of 03/12/2024) Active Problems Problem Noted Date Diagnosed Date [...] as of this encounter (statuses as of 03/12/2024) Resolved Problems Problem Noted Date Diagnosed Date [...] as of this encounter (statuses as of 03/12/2024) Immunizations Name Administration Dates Next Due COVID-19 mRNA, LNP-s, No Pre serve, 2-Dose Series (Moderna) 11/03/2020,10/06/2020 COVID-19 mRNA, LNP-s, No Pre serve, 2-Dose Series (Pfizer) 06/08/2021 Covid-19, Mrna, Lnp-s, Pf, B ivalent, 30 Mcg, IM, 12 yrs and above (Pfizer) 05/05/2022 H1N1 2009 Influenza, IM 08/15/2009 Hepatitis B, 20+ yrs 01/16/2014,04/06/2013,03/05 PPD 02/27/2013 Pneumococcal Conjugate Vacci ne, 20-valent ([id number]) 03/05/2022 Pneumococcal Polysaccharide PPV23 (Pneumovax) 03/31/2009 Seasonal Influenza Virus Vac cine, Unspecified Formulation 04/12/2022,04/09/2021,05/21/2020,08/02,04/20/2018,2017,04/26/2016 ,09/10/2015,05/10/2014,05/18/2013,11/2011,04/20/2011,05/15/2010, 0,07/15/2009,05/22/2008,05/24/2007,08/2005 Seasonal Influenza, PF, 6 M & above, IM , (FluLaval or Fluzone) 04/12/2022,04/09/2021,05/21/2020,08/02,04/20/2018 Seasonal Influenza, Quadriva lent, No Preserve, IM 04/01/2023,04/26/2016 Seasonal Influenza, Quadriva lent,with Preserve, 3 yr & above, IM 2017 Seasonal Influenza, Split, I IV3, With Preserve, Inj 2017,09/10/2015,05/10/2014,05/18,05/05/2012,04/20/2011,05/15/2010 ,07/15/2009,05/22/2008,05/24/2007,08/2005 TDAP, Age 7 and older, [...] encounter Miscellaneous Notes * Telephone Encounter - Avani Kelly OSA - 03/12/2024 9:09 AM EDT Patient called - the office at [facility] told patient they did not received fax. MAURO refaxed letter to [facility] [phone] SUCCESSFUL 03/12/2024 9:09 AM * Telephone Encounter - Meryl Clark LPN - 03/06/2024 2:49 PM EDT Faxed; confirmation received. MyG message sent to make patient aware. * Telephone Encounter - Brian Salas DO - 03/06/2024 2:45 PM EDT I'll bring to you. Please fax and let her know it was sent. * Telephone Encounter - Charito Morales, RN - 03/06/2024 1:44 PM EDT Pt [...] have a handicapped apt. Fax letter to [facility] at [phone]. * Telephone Encounter - Jada Farrar OSA - 03/06/2024 12:02 PM EDT Patient is requesting to speak with PCP's nurse about getting a handicap accessible apartment in the building she lives. Please advise. documented in this encounter Plan of Treatment Upcoming Encounters Date Type Department Care Team (Late st Contact Info) Description 04/05/2024 8:40 AM EDT Office Visit Pulmonary Medicine, [facility] [address] [facility] [place] [address] Yo Abreu MD [address] [facility] [place] [address] 05/03/2024 9:05 AM EDT Office Visit Urogynecology Cristy Tucker [address] [place] [address] Del Baron MD [address] [place] [address] Nurse Trae Tucker Drake [address] [place] [address] 05/15/2024 1:00 PM EDT Office Visit Family Practice [facility] [address] [facility] [address] Brian Salas, DO [address] [facility] [place], [place] [address] 03/12/2025 11:20 AM EDT Office Visit Sleep Disorders Ctr [facility] [place] [address] [place] [phone] Charlette Brannon, DO [address] [place] [address] Scheduled Procedures Name Priority Associated Diagnoses Date/Ti [...] filedocumented as of this encounter Care Teams Scooter Mechanic Relationship Specialty Start Date End Date Brian Salas DO [address] [place] [address] PCP - General Family Medicine 12/16/15 documented as of this encounter
--- OUTSIDE RECORDS SUMMARY | 2024-06-10 02:32 | External Medical Summary | Summary of Care ---
Author Name Unknown Organization [facility] Address [address] [facility] [address] Phone [phone] Care Team Providers Care Accident Report Clerk Name Role Phone Brian Salas DO Primary Care Provider [phone] Reason for Visit * Reason Onset Date Comments Advice 12/01/2023 Encounter Details Date Type Department Care Team (Late st Contact Info) Description 12/01/2023 Telephone Family Practice [facility] [address] [place] [address] Brian Salas DO [address] [facility] [address] Advice Allergies Active Allergy Reactions Criticality Noted [...] as of this encounter (statuses as of 03/01/2024) Medications Medication Sig Dispensed Refills Start Date [...] (Neurontin)Indication s:Polyneuropathy in other diseases classified elsewhere ([facility]) Take 1 Cap by mouth at bedtime. 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 90 Tablet 1 11/17/2023 Active documented as of this encounter (statuses as of 03/01/2024) Active Problems Problem Noted Date Diagnosed Date [...] as of this encounter (statuses as of 03/01/2024) Resolved Problems Problem Noted Date Diagnosed Date [...] 1 09/25/2012 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/31/2010 10/08/19 11 nursing home current use of ant icoagulant therapy [...] as of this encounter (statuses as of 03/01/2024) Immunizations Name Administration Dates Next Due COVID-19 mRNA, LNP-s, No Pre serve, 2-Dose Series (Moderna) 11/03/2020,10/06/2020 COVID-19 mRNA, LNP-s, No Pre serve, 2-Dose Series (Pfizer) 06/08/2021 Covid-19, Mrna, Lnp-s, Pf, B ivalent, 30 Mcg, IM, 12 yrs and above (Pfizer) 05/05/2022 H1N1 2009 Influenza, IM 08/15/2009 Hepatitis B, 20+ yrs 01/16/2014,04/06/2013,03/05 PPD 02/27/2013 Pneumococcal Conjugate Vacci ne, 20-valent ([id number]) 03/05/2022 Pneumococcal Polysaccharide PPV23 (Pneumovax) 03/31/2009 Seasonal Influenza Virus Vac cine, Unspecified Formulation 04/12/2022,04/09/2021,05/21/2020,08/02,04/20/2018,2017,04/26/2016 ,09/10/2015,05/10/2014,05/18/2013,11/2011,04/20/2011,05/15/2010, 0,07/15/2009,05/22/2008,05/24/2007,08/2005 Seasonal Influenza, PF, 6 M & above, IM , (FluLaval or Fluzone) 04/12/2022,04/09/2021,05/21/2020,08/02,04/20/2018 Seasonal Influenza, Quadriva lent, No Preserve, IM 04/01/2023,04/26/2016 Seasonal Influenza, Quadriva lent,with Preserve, 3 yr & above, IM 2017 Seasonal Influenza, Split, I IV3, With Preserve, Inj 2017,09/10/2015,05/10/2014,05/18,05/05/2012,04/20/2011,05/15/2010 ,07/15/2009,05/22/2008,05/24/2007,110 08/2005 TDAP, Age 7 and older, IM [...] encounter Miscellaneous Notes * Telephone Encounter - Tono Osorio MED ASSIST - 12/02/2023 11:13 AM EDT Prescription refill was added and re-faxed. * Telephone Encounter - Medina Page OSA - 12/01/2023 2:56 PM EDT [facility] Doesn't have the number of refills on it [phone] documented in this encounter Plan of Treatment Upcoming Encounters Date Type Department Care Team (Late st Contact Info) Description 03/08/2024 10:00 AM EDT Office Visit Sleep Disorders [facility]tr [facility] [address] [place] [phone] Charlette Brannon, DO [address] [place] [address] 05/15/2024 1:00 PM EDT Office Visit Family Practice [facility] [address] [place] [address] Brian Salas, DO [address] [place] [address] Scheduled Procedures Name Priority Associated Diagnoses Date/Ti [...] filedocumented as of this encounter Care Teams Accident Report Clerk Relationship Specialty Start Date End Date Brian Salas DO [address] [place] [address] PCP - General Family Medicine 12/16/15 documented as of this encounter
--- OUTSIDE RECORDS SUMMARY | 2024-06-10 02:32 | External Medical Summary | Summary of Care ---
Author Name Unknown Organization [facility] Address [address] [facility] [address] Phone [phone] Care Team Providers Care Defensive Secondary Coach Name Role Phone Brian Salas DO Primary Care Provider [phone] Reason for Visit * Reason Onset Date Comments Advice 03/06/2024 Encounter Details Date Type Department Care Team (Late st Contact Info) Description 03/06/2024 Telephone Family Practice [facility] [address] [place] [address] Brian Salas DO [address] [facility] [address] Advice Allergies Active Allergy Reactions Criticality Noted [...] (Neurontin)Indication s:Polyneuropathy in other diseases classified elsewhere ([facility]) Take 1 Cap by mouth at bedtime. 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 [employer] message sent to make patient aware. * [...] have a handicapped apt. Fax letter to [facility] at [phone]. * Telephone Encounter - Jada Farrar OSA - 03/06/2024 12:02 PM EDT Patient is requesting to speak with PCP's nurse about getting a handicap accessible apartment in the building she lives. Please advise. documented in this encounter Plan of Treatment Upcoming Encounters Date Type Department Care Team (Late st Contact Info) Description 03/08/2024 10:00 AM EDT Office Visit [facility] [address] [place] [phone] Charlette Brannon DO [address] [place] [address] 05/03/2024 9:05 AM EDT Office Visit Urogynecology [facility] [address] [place] [address] Del Baron MD [address] [place] [address] Nurse Trae Tucker [address] [place] [address] 05/15/2024 1:00 PM EDT Office Visit [facility] [address] [place] [address] Brian Salas DO [address] [facility] [place] [address] Scheduled Procedures Name Priority Associated Diagnoses Date/Ti [...] filedocumented as of this encounter Care Teams Defensive Secondary Coach Relationship Specialty Start Date End Date Brian Salas DO [address] [place] [address] PCP - General Family Medicine 12/16/15 documented as of this encounter
--- OUTSIDE RECORDS SUMMARY | 2024-06-10 02:33 | External Medical Summary | Summary of Care ---
Author Name Unknown Organization [facility] Address [address] [facility] [address] Phone [phone] Care Team Providers Care Farm Management Adviser Name Role Phone Brian Salas DO Primary Care Provider [phone] Encounter Details Date Type Department Care Team (Late st Contact Info) Description 11/16/2023 Telephone Family Practice [facility] [address] [place] [address] Brian Salas DO [address] [place] [address] Allergies Active Allergy Reactions Criticality Noted Date [...] as of this encounter (statuses as of 02/15/2024) Medications Medication Sig Dispensed Refills Start Date [...] MCG/ACT Inhalation Aerosol Powder Breath Activated (umeclidinium Carrizozo) Inhale 1 Puff by mouth in the [...] MOUTH THREE TIMES A DAY 270 Tablet 09/23/19 24 Active hydroCHLOROthiazide 12.5 MG Oral Capsule (Hydrodiuril)Indica tions:HTN, goal below 140/90,Shortness of breath TAKE 1 CAPSULE BY MOUTH EVERY MORNING 90 Capsule 09/23/19 24 Active Losartan Potassium 100 MG Oral Tablet (Cozaar) TAKE 1 TABLET BY MOUTH DAILY 28 Tablet 10/22/19 24 Active Levothyroxine Sodium 75 MCG Oral Tablet (Levoxyl) Take 1 Tablet by mouth in the morning. (at least 30 min prior to breakfast or other meds). Take in addition to 150 mcg dose. 30 Tablet 11/16/19 24 Active Levothyroxine Sodium 150 MCG Oral Tablet (Levoxyl) Take 1 Tablet by mouth in the morning. (at least 30 min prior to breakfast or other meds) Take in addition to 125 mcg dose. 30 Tablet 12/18/19 024 Discontinued Levothyroxine Sodium 125 MCG Oral Tablet (Levoxyl) Take 1 Tablet by mouth in the morning. (at least 30 min prior to breakfast or other meds) Take in addition to 150 mcg dose. 90 Tablet 12/18/19 024 Discontinued Furosemide 40 MG Oral Tablet (Lasix)Indications: Heart failure, diastolic, with acute decompensation (HCC) TAKE 1 TABLET BY MOUTH TWICE A DAY 180 Tablet 01/12/20 024 Discontinued Potassium Chloride ER 10 MEQ Oral Tablet Extended ReleaseIndications: HTN, goal below 140/90,PAF (paroxysmal atrial 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) (HCC),ROSALES (dyspnea on exertion) TAKE 1 TABLET BY MOUTH DAILY 90 Tablet 01/12/20 024 Discontinued Sotalol HCl 80 MG Oral Tablet (Betapace)Indicatio ns:PAF (paroxysmal atrial 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) (HCC) TAKE 1/2 TABLET BY MOUTH TWICE A DAY *HOLD FOR HEART RATE LESS THAN 60 OR SYSTOLIC BLOOD PRESSURE LESS THAN 100 &NOTIFY SERVICE IF DOSE 28 Tablet 02/12/20 024 Discontinued Carvedilol 25 MG Oral Tablet (Coreg) TAKE 1 TABLET BY MOUTH TWICE A DAY WITH FOOD 56 Tablet 9 02/12/20 23 024 Discontinued Rosuvastatin Calcium 5 MG Oral Tablet (Crestor)Indication s:Dyslipidemia, goal LDL below 130 TAKE 1 TABLET BY MOUTH DAILY 90 Tablet 3 03/08/20 23 024 Discontinued Montelukast Sodium 10 MG Oral Tablet (Singulair)Indicati ons:Mixed rhinitis,Moderate persistent asthma without complication Take 1 Tablet by mouth at bedtime. 30 Tablet 6 07/04/20 23 024 Discontinued(Re fill) methylPREDNISolone 4 MG Oral Tablet Therapy Pack (Medrol Dosepack)Indication s:Rash and nonspecific skin eruption follow package directions 21 Tablet 07/05/20 23 024 Discontinued(Ia dication List Clean Up) Sulfamethoxazole-Tr imethoprim 800-160 [...] 45 g 1 11/08/19 24 024 Discontinued documented as of this encounter (statuses as of 02/15/2024) Active Problems Problem Noted Date Diagnosed Date [...] as of this encounter (statuses as of 02/15/2024) Resolved Problems Problem Noted Date Diagnosed Date [...] 1 09/25/2012 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/31/2010 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 08/31/2010 [...] as of this encounter (statuses as of 02/15/2024) Immunizations Name Administration Dates Next Due COVID-19 mRNA, LNP-s, No Pre serve, 2-Dose Series (Moderna) 11/03/2020,10/06/2020 COVID-19 mRNA, LNP-s, No Pre serve, 2-Dose Series (Pfizer) 06/08/2021 Covid-19, Mrna, Lnp-s, Pf, B ivalent, 30 Mcg, IM, 12 yrs and above (Pfizer) 05/05/2022 H1N1 2009 Influenza, IM 08/15/2009 Hepatitis B, 20+ yrs 01/16/2014,04/06/2013,03/05 PPD 02/27/2013 Pneumococcal Conjugate Vacci ne, 20-valent ([id number]) 03/05/2022 Pneumococcal Polysaccharide PPV23 (Pneumovax) 03/31/2009 Seasonal [...] Telephone Encounter - Brian Salas DO - 11/16/2023 10:27 AM EDT Please call Sofia. Her thyroid was off again. I put in for a lower dose and repeat blood work for 2months from now. documented in this encounter Plan of Treatment Upcoming Encounters Date Type Department Care Team (Late st Contact Info) Description 03/08/2024 10:00 AM EDT Office [facility] [phone] Charlette Brannon, 132 [facility] [place] [address] 05/15/2024 1:00 PM EDT Office Visit Family Practice [facility] 200 [facility] [place], [place] [address] Brian Salas DO [address] [facility] [address] Scheduled Orders Name Type Priority Associated Diagnoses Orde r Schedule TSH WITH FREE T4 IF INDICATED Lab Routine Acquired hypothyroidism Expected: 01/16/2024 (Approximate), Expires: 11/15/2024 Scheduled Procedures Name Priority Associated Diagnoses Date/Ti [...] hypothyroidism documented in this encounter Care Teams Farm Management Adviser Relationship Specialty Start Date End Date Brian Salas DO [address] [place] [address] PCP - General Family Medicine 12/16/15 documented as of this encounter
--- OUTSIDE RECORDS SUMMARY | 2024-06-10 02:33 | External Medical Summary | Summary of Care ---
Author Name Unknown Organization [facility] Address [address] [place] [address] Phone [phone] Care Team Providers Care Strategic Accounts Manager Name Role Phone AramisjajaronnieSami Jasson PRATHER Primary Care Provider [phone] Reason for Visit * Reason Comments eRx-Medication Refill Encounter Details Date Type Department Care Team (Late st Contact Info) Description 02/29/2024 Refill Cardiology, [facility] [address] [place] [address] FélixRitu silver CRNP [address] [place] [address] Heart failure, diastolic, with acute decompensation (HCC); HTN, goal below 140/90; PAF (paroxysmal atrial 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) (HCC); ROSALES (dyspnea on exertion) Allergies Active Allergy Reactions Criticality Noted Date [...] as of this encounter (statuses as of 02/29/2024) Medications Medication Sig Dispensed Refills Start Date [...] (Neurontin)Indicati ons:Polyneuropathy in other diseases classified elsewhere ([facility]) Take 1 Cap by mouth at bedtime. 30 Cap 5 1 Active Sertraline HCl 100 MG Oral Tablet (Zoloft)Indications :Major depressive disorder with single episode, in partial remission ([facility]) Take 1 Tab by mouth daily. [...] MCG/ACT Inhalation Aerosol Powder Breath Activated (umeclidinium [place]) Inhale 1 Puff by mouth in the morning. 30 Each 11 3 Active Additional Information Patient not taking.Reported on 01/26/2024 Myrbetriq 50 MG Oral Tablet Extended Release 24 Hour (Mirabegron ER) Take 1 Tablet by mouth in the morning. 90 Tablet 3 3 Active Paliperidone ER 6 MG Oral [...] 14 DAYS 45 g 1 4 Active Breo Ellipta 200-25 MCG/ACT Inhalation Aerosol Powder Breath Activated (fluticasone furoate-vilanterol) Indications:Moderat e persistent asthma without complication INHALE 1 PUFF BY MOUTH DAILY 60 Each 6 4 Active Hydroxychloroquine Sulfate 200 MG Oral [...] MOUTH DAILY 90 Tablet 1 4 Active Furosemide 40 MG Oral Tablet (Lasix)Indications: Heart failure, diastolic, with acute decompensation (HCC) TAKE 1 TABLET BY MOUTH TWICE A DAY 180 Tablet 4 02/29/20 24 Discontinued Potassium Chloride ER 10 MEQ Oral Tablet Extended ReleaseIndications: HTN, goal below 140/90,PAF (paroxysmal atrial 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) (HCC),ROSALES (dyspnea on exertion) TAKE 1 TABLET BY MOUTH DAILY 90 Tablet 4 02/29/20 24 Discontinued documented as of this encounter (statuses as of 02/29/2024) Active Problems Problem Noted Date Diagnosed Date [...] as of this encounter (statuses as of 02/29/2024) Resolved Problems Problem Noted Date Diagnosed Date [...] 09/25/2012 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/31/2010 10/08/19 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 use of ant icoagulant therapy 08/31/2010 [...] as of this encounter (statuses as of 02/29/2024) Immunizations Name Administration Dates Next Due COVID-19 mRNA, LNP-s, No Pre serve, 2-Dose Series (Moderna) 11/03/2020,10/06/2020 COVID-19 mRNA, LNP-s, No Pre serve, 2-Dose Series (Pfizer) 06/08/2021 Covid-19, Mrna, Lnp-s, Pf, B ivalent, 30 Mcg, IM, 12 yrs and above (Pfizer) 05/05/2022 H1N1 2009 Influenza, IM 08/15/2009 Hepatitis B, 20+ yrs 01/16/2014,04/06/2013,03/05 PPD 02/27/2013 Pneumococcal Conjugate Vacci ne, 20-valent ([id number]) 03/05/2022 Pneumococcal Polysaccharide PPV23 (Pneumovax) 03/31/2009 Seasonal [...] encounter Miscellaneous Notes * Telephone Encounter - Sami Ortiz DO - 02/29/2024 2:02 PM EDTSigned Prescriptions: Disp Refills Furosemide 40 MG Oral Tablet (Lasix) 180 Ta*1 Sig: TAKE 1 TABLET BY MOUTH TWICE A DAY Authorizing Provider: SAMI ORTIZ Potassium Chloride ER 10 MEQ Oral Tablet E*90 Tab*1 Sig: TAKE 1 TABLET BY MOUTH DAILY Authorizing Provider: SAMI ORTIZ * Telephone Encounter - Sami Ortiz DO - 02/29/2024 2:02 PM EDTSigned Prescriptions: Disp Refills Furosemide 40 MG Oral Tablet (Lasix) 180 Ta*1 Sig: TAKE 1 TABLET BY MOUTH TWICE A DAY Authorizing Provider: SAMI ORTIZ Potassium Chloride ER 10 MEQ Oral Tablet E*90 Tab*1 Sig: TAKE 1 TABLET BY MOUTH DAILY Authorizing Provider: SAMI ORTIZ * Telephone Encounter - Uriah Alvarez, MED ASSIST - 02/29/2024 1:50 PM EDT Did you pend patient's preferred pharmacy and medication before forwarding?yes Pharmacy: [facility] [id number] [address] [place] Pending Prescriptions: Disp Refills Furosemide 40 MG Oral Tablet (Lasix) [Pha*180 Ta*1 Sig: TAKE 1 TABLET BY MOUTH TWICE A DAY Potassium Chloride ER 10 MEQ Oral Tablet *90 Tab*1 Sig: TAKE 1 TABLET BY MOUTH DAILY Last Visit: 11/30/2022 (in office), Visit date not found (telemedicine) Next Visit: Visit date not found If no future appointments scheduled, and last appointment is greater than a year ago, please schedule patient for a follow-up appointment Last date the medication was ordered: Multiple Is this request for a controlled substance?No Urine Drug Screen:No results found. However, due to the size of the patient record, not all encounters were searched. Please check Results Review for a complete set of results. Patient Phone Numbers Labs: Lab Results Component Value Date/Time CREAT 0.7 05/26/2023 07:56 AM CREAT 0.9 08/19/2020 10:23 AM POTASSIUM 4.1 05/26/2023 07:56 AM POTASSIUM 5.2 (H) 08/19/2020 10:23 AM POTASSIUM 4.5 09/10/1996 10:55 AM TSH <0.01 (L) 11/14/2023 08:22 AM TSH 9.19 (H) 08/19/2020 10:23 AM TSH 3.77 09/10/1996 10:55 AM LDLCALC 80 09/11/2021 02:23 PM LDLCALC 134 (H) 12/29/2018 09:06 AM LDLDIRECT 163 (H) 05/09/2020 08:31 AM LDLDIRECT 70 02/06/2014 12:54 PM ALT 20 05/26/2023 07:56 AM ALT 18 03/16/2019 12:02 PM HGBA1C 5.6 05/26/2023 07:56 AM HGBA1C 6.4 (H) 05/09/2020 08:31 AM HGBA1C 5.3 09/24/1996 09:45 AM * Telephone Encounter - Cielo Carrera CMA - 02/29/2024 10:47 AM EDTPending Prescriptions: Disp Refills Furosemide 40 MG Oral Tablet (Lasix) 180 Ta*1 Sig: TAKE 1 TABLET BY MOUTH TWICE A DAY Potassium Chloride ER 10 MEQ Oral Tablet E*90 Tab*1 Sig: TAKE 1 TABLET BY MOUTH DAILY * Telephone Encounter - Cielo Carrera CMA - 02/29/2024 10:39 AM EDT Patient has not been seen by cardiology in over a year. We have attempted to reschedule multiple times and patient has cancelled. Will defer to PCP for refills until patient is seen in office. documented in this encounter Plan of Treatment Upcoming Encounters Date Type Department Care Team (Late st Contact Info) Description 03/08/2024 10:00 AM EDT [facility] [place] [phone] Charlette Brannon, [address] [place] [address] 05/15/2024 1:00 PM EDT Office Visit Family Practice [facility] 200 [facility] [place] [address] Sami Ortiz, DO 200 [facility] [place] [address] Scheduled Procedures Name Priority Associated Diagnoses Date/Ti [...] Hepatitis B Vaccine Completed 01/16/2014, 04/06/2013, 03/05/2013 Hepatitis C Screening Completed 11/08/2016 HIV Screening Completed 09/18/2018 Zoster Vaccines Completed 05/11/2021, 05/21/2020 Pneumococcal Vaccine: [...] as of this encounter Visit Diagnoses Diagnosis Heart failure, diastolic, with acute decompensation (HCC) Acute on chronic diastolic heart failure HTN, goal below 140/90 Unspecified essential hypertension PAF (paroxysmal atrial 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) (HCC) 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 ROSALES (dyspnea on exertion) Other dyspnea and respiratory abnormality documented in this encounter Care Teams Strategic Accounts Manager Relationship Specialty Start Date End Date Sami Ortiz DO [address] [place], [place] [address] PCP - General Family Medicine 12/16/15 documented as of this encounter
--- OUTSIDE RECORDS SUMMARY | 2024-06-10 02:33 | External Medical Summary | Summary of Care ---
Author Name Unknown Organization [facility] [address] [place] [address] Phone [phone] Care Team Providers Care Tile Classifier Name Role Phone AramisBrian self Primary Care Provider [phone] Reason for Visit * Reason Onset Date Comments Medication Refill 03/01/2024 Encounter Details Date Type Department Care Team (Late st Contact Info) Description 03/01/2024 Refill Urogynecology [facility] [address] [place] [address] Del Baron MD [address] [place] [address] Allergies Active Allergy Reactions Criticality Noted Date [...] (Neurontin)Indication s:Polyneuropathy in other diseases classified elsewhere (HCC) Take [...] MCG/ACT Inhalation Aerosol Powder Breath Activated (umeclidinium [place]ock) Inhale 1 Puff by mouth in the [...] (Lasix)Indications:He art failure, diastolic, with acute decompensation ([facility]) TAKE 1 TABLET BY MOUTH TWICE A [...] 1 09/25/2012 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/31/2010 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 08/31/2010 05/19/2011 Overview: ICD-10 update of inactive term Dysfunction of eustachian tube 08/17/2010 05/19/2011 Hypersomnia with sleep apnea 08/17/2010 01/15/2023 OTITIS MEDIA, CHRONIC, LEFT 08/17/2010 05/19/2011 Abnormality of gait 03/24/2010 06/18/20 14 ACTIVE CASE MANAGEMENT Kadie Hernandez Amilcar 6258 01/06/20 10 05/18/2010 Overview: ACTIVE [...] PPD 02/27/2013 Pneumococcal Conjugate Vacci ne, 20-valent ([id number]) 03/05/2022 Pneumococcal Polysaccharide PPV23 (Pneumovax) 03/31/2009 Seasonal Influenza Virus Vac cine, Unspecified Formulation 04/12/2022,04/09/2021,05/21/2020,08/02,04/20/2018,2017,04/26/2016 ,09/10/2015,05/10/2014,05/18/2013,1011/2011,04/20/2011,05/15/2010, 0,07/15/2009,05/22/2008,05/24/2007,08/2005 Seasonal Influenza, PF, 6 M & [...] encounter Miscellaneous Notes * Telephone Encounter - Fouzia Hanson LPN - 03/01/2024 4:58 PM EDT Received fax refill request for Myrbetriq 50mg. Pt last seen 06/09/23 with 6 month follow up advised. Patient cancelled appt w/o rescheduling. Will route to scheduling for assistance. * Telephone Encounter - Baylee Mon TECH - 03/01/2024 1:55 PM EDT Received automatic refill request via fax from [facility] pharmacy for medication Myrbetriq 50mg. Patient last seen Visit date 06/09/23 (in office), Visit date not found (telemedicine) Future appt Visit date not found documented in this encounter Plan of Treatment Upcoming Encounters Date Type Department Care Team (Late st Contact Info) Description 03/08/2024 10:00 AM EDT [facility] [address] [place] [phone] Charlette Brannon, [address] [place] [address] 05/15/2024 1:00 PM EDT Office Visit Family Practice [facility] [address] [facility] [place] [address] Brian Salas, DO [address] [facility] [place] [address] Scheduled Procedures Name Priority Associated Diagnoses Date/Ti [...] filedocumented as of this encounter Care Teams Tile Classifier Relationship Specialty Start Date End Date Brian Salas DO [address] [place], [place] [address] PCP - General Family Medicine 12/16/15 documented as of this encounter
--- OUTSIDE RECORDS SUMMARY | 2024-06-10 02:33 | External Medical Summary | Summary of Care ---
Author Name Unknown Organization [facility] Address [address] [place] [address] Phone [phone] Care Team Providers Care Astronomy Teacher Name Role Phone AramisjajaronnieBrian Jasson PRATHER Primary Care Provider [phone] Reason for Visit * Reason Comments eRx-Medication Refill Encounter Details Date Type Department Care Team (Late st Contact Info) Description 02/07/2024 Refill Cardiology, [facility] [address] [place] [address] FélixRitu silver CRNP [address] [facility] [place] [address] Dyslipidemia, goal LDL below 130 Allergies Active [...] as of this encounter (statuses as of 02/08/2024) Medications Medication Sig Dispensed Refills Start Date [...] MCG/ACT Inhalation Aerosol Powder Breath Activated (umeclidinium [place]) Inhale 1 Puff by mouth in the [...] mcg dose. 90 Tablet 1 4 Active Furosemide 40 MG Oral Tablet (Lasix)Indications: Heart failure, diastolic, with acute decompensation (HCC) TAKE 1 TABLET BY MOUTH TWICE A DAY 180 Tablet 4 Active Potassium Chloride ER 10 MEQ Oral Tablet Extended ReleaseIndications: HTN, goal below 140/90,PAF (paroxysmal atrial 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) (HCC),ROSALES (dyspnea on exertion) TAKE 1 TABLET BY MOUTH DAILY 90 Tablet 4 Active Montelukast Sodium 10 MG Oral [...] TABLET BY MOUTH DAILY 90 Tablet 3 3 02/08/20 24 Discontinued documented as of this encounter (statuses as of 02/08/2024) Active Problems Problem Noted Date Diagnosed Date [...] as of this encounter (statuses as of 02/08/2024) Resolved Problems Problem Noted Date Diagnosed Date [...] 1 09/25/2012 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/31/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 [...] as of this encounter (statuses as of 02/08/2024) Immunizations Name Administration Dates Next Due COVID-19 mRNA, LNP-s, No Pre serve, 2-Dose Series (Moderna) 11/03/2020,10/06/2020 COVID-19 mRNA, LNP-s, No Pre serve, 2-Dose Series (Pfizer) 06/08/2021 Covid-19, Mrna, Lnp-s, Pf, B ivalent, 30 Mcg, IM, 12 yrs and above (Pfizer) 05/05/2022 H1N1 2009 Influenza, IM 08/15/2009 Hepatitis B, 20+ yrs 01/16/2014,04/06/2013,03/05 PPD 02/27/2013 Pneumococcal Conjugate Vacci ne, 20-valent ([id number]) 03/05/2022 Pneumococcal Polysaccharide PPV23 (Pneumovax) 03/31/2009 Seasonal Influenza Virus Vac cine, Unspecified Formulation 04/12/2022,04/09/2021,05/21/2020,08/02,04/20/2018,2017,04/26/2016 ,09/10/2015,05/10/2014,05/18/2013,10/0 11/2011,04/20/2011,05/15/2010, 0,07/15/2009,05/22/2008,05/24/2007,08/2005 Seasonal Influenza, PF, 6 M & above, IM , (FluLaval or Fluzone) 04/12/2022,04/09/2021,05/21/2020,08/02,04/20/2018 Seasonal Influenza, Quadriva lent, No Preserve, IM 04/01/2023,04/26/2016 Seasonal Influenza, Quadriva lent,with Preserve, 3 yr & above, IM 2017 Seasonal Influenza, Split, I IV3, With Preserve, Inj 2017,09/10/2015,05/10/2014,05/18,05/05/2012,04/20/2011,05/15/2010 ,07/15/2009,05/22/2008,05/24/2007,1108/2005 TDAP, Age 7 and older, IM (Adacel) [...] Miscellaneous Notes * Telephone Encounter - Rowena Cedillo, [facility] - 02/08/2024 9:28 AM EDTPending Prescriptions: Disp Refills Rosuvastatin Calcium 5 MG Oral Tablet (Cre*90 Tab*0 Sig: TAKE 1 TABLET BY MOUTH DAILY * Telephone Encounter - Rowena Cedillo CMA - 02/08/2024 9:28 AM EDT Scheduling -- please contact pt for follow up. * Telephone Encounter - Rowena Cedillo CMA - 02/08/2024 9:28 AM EDT Did you pend patient's preferred pharmacy and medication before forwarding?yes Pharmacy: [facility] [address] [facility] [place] Pending Prescriptions: Disp Refills Rosuvastatin Calcium 5 MG Oral Tablet (Cr*90 Tab*0 Sig: TAKE 1 TABLET BY MOUTH DAILY Last Visit: 11/30/2022 (in office), Visit date not found (telemedicine) Next Visit: Visit date not found If no future appointments scheduled, and last appointment is greater than a year ago, please schedule patient for a follow-up appointment Last date the medication was ordered: 03-08-2023 Is this request for a controlled substance?No [...] 08:31 AM HGBA1C 5.3 09/24/1996 09:45 AM documented in this encounter Plan of Treatment Upcoming Encounters Date Type Department Care Team (Late st Contact Info) Description 03/08/2024 10:00 AM EDT Office Visit Sleep Disorders Ctr [facility] [address] [place] [id number] Charlette Brannon [address] [place] [address] 05/15/2024 1:00 PM EDT Office Visit Family Practice [facility] [address] [place] [address] Brian Salas [address] [place] [address] Scheduled Procedures Name Priority Associated Diagnoses Date/Ti [...] as of this encounter Visit Diagnoses Diagnosis Dyslipidemia, goal LDL below 130 Other and unspecified hyperlipidemia documented in this encounter Care Teams Astronomy Teacher Relationship Specialty Start Date End Date Brian Salas DO [address] [place] [address] PCP - General Family Medicine 12/16/15 documented as of this encounter
--- OUTSIDE RECORDS SUMMARY | 2024-06-10 02:33 | External Medical Summary | Summary of Care ---
Author Name Unknown Organization [facility] Address [address] [place] [address] Phone [phone] Care Team Providers Care Visitor Information Assistant Name Role Phone AramisjajaronnieBrian Jasson PRATHER Primary Care Provider [phone] Reason for Visit * Reason Comments eRx-Medication Refill Encounter Details Date Type Department Care Team (Late st Contact Info) Description 12/16/2023 Refill Cardiology, [facility] [address] [place] [address] Rtiu Heard CRNP [address] [place] [address] Heart failure, diastolic, with acute decompensation (HCC); [...] as of this encounter (statuses as of 12/16/2023) Medications Medication Sig Dispensed Refills Start Date [...] ns:Polyneuropathy in other diseases classified elsewhere ([facility]) Take 1 Cap by mouth at bedtime. 30 Cap 5 1 Active Sertraline HCl 100 MG Oral Tablet (Zoloft)Indications: Major depressive disorder with single episode, in partial remission ([facility]) Take 1 Tab by mouth daily. 30 Tab 11 1 Active Systane 0.4-0.3 % Ophthalmic Solution (Polyethyl Glycol-Propyl Glycol) Instill 1 Drop into both eyes as needed for Dry eyes (may use 3- 4 times daily). 0 Active Paliperidone ER 9 MG Oral Tablet Extended Release 24 Hour Take by mouth . 0 Active Vitamin D3 50 MCG (2000 UT) Oral Capsule Take by mouth 1 Capsule in the morning. 30 Capsule 5 2 Active BiPAP every night at bedtime . 0 Active Vitron-C 65-125 MG Oral Tablet (Iron-Vitamin C) Take by mouth 1 Tablet in the morning AND 1 Tablet before bedtime. 180 Tablet 3 2 Active busPIRone HCl 10 MG Oral Tablet (Buspar) 0 2 Active Perphenazine 8 MG Oral Tablet 0 2 Active Ventolin HFA 108 (90 Base) [...] OR CHEW* 28 Capsule 9 3 Active Rosuvastatin Calcium 5 MG Oral Tablet (Crestor)Indications :Dyslipidemia, goal LDL below 130 TAKE 1 TABLET BY MOUTH DAILY 90 Tablet 3 3 Active Levocetirizine Dihydrochloride 5 MG Oral Tablet (Xyzal Allergy 24HR)Indications:Mix ed rhinitis Take 1 Tablet by mouth every evening. 30 Tablet 11 3 Active Incruse Ellipta 62.5 MCG/ACT Inhalation Aerosol Powder Breath Activated (umeclidinium [place]) Inhale 1 Puff by mouth in the morning. 30 Each 11 3 Active Myrbetriq 50 MG Oral Tablet Extended Release 24 Hour (Mirabegron ER) Take 1 Tablet by mouth in the morning. 90 Tablet 3 3 Active Montelukast Sodium 10 MG Oral Tablet (Singulair)Indicatio ns:Mixed rhinitis,Moderate persistent asthma without complication Take 1 Tablet by mouth at bedtime. 30 Tablet 6 3 Active methylPREDNISolone 4 MG Oral Tablet Therapy Pack (Medrol Dosepack)Indications :Rash and nonspecific skin eruption follow package directions 21 Tablet 0 3 Active Paliperidone ER 6 MG Oral Tablet Extended Release 24 Hour (Invega) 0 3 Active Perphenazine 2 MG Oral Tablet (Trilafon) 0 3 Active Fluticasone Propionate 50 MCG/ACT Nasal Suspension (Flonase) Administer 2 Sprays into each nostril in the morning. 16 g 11 3 Active Triamcinolone Acetonide 55 MCG/ACT Nasal Aerosol (Nasacort Allergy 24HR)Indications:All ergic rhinitis, unspecified seasonality, unspecified trigger Administer 2 Sprays into nostril in the morning. 16.9 mL 5 3 Active Spiriva Respimat 2.5 MCG/ACT Inhalation Aerosol SolutionIndications: [...] BY MOUTH TWICE A DAY 180 Tablet 0 4 Active Potassium Chloride ER 10 MEQ Oral Tablet Extended ReleaseIndications:H TN, goal below 140/90,PAF (paroxysmal atrial 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) (HCC),ROSALES (dyspnea on exertion) TAKE 1 TABLET BY MOUTH DAILY 90 Tablet 0 4 Active Furosemide 40 MG Oral Tablet (Lasix)Indications:H eart failure, diastolic, with acute decompensation (HCC) TAKE 1 TABLET BY MOUTH TWICE A DAY 180 Tablet 3 3 12/16/19 24 Discontinued Potassium Chloride ER 10 MEQ Oral Tablet Extended ReleaseIndications:H TN, goal below 140/90,PAF (paroxysmal atrial 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) (HCC),ROSALES (dyspnea on exertion) TAKE 1 TABLET BY MOUTH DAILY 90 Tablet 3 3 12/16/19 24 Discontinued documented as of this encounter (statuses as of 12/16/2023) Active Problems Problem Noted Date Diagnosed Date [...] as of this encounter (statuses as of 12/16/2023) Resolved Problems Problem Noted Date Diagnosed Date [...] 09/25/2012 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/31/2010 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 08/31/2010 [...] as of this encounter (statuses as of 12/16/2023) Immunizations Name Administration Dates Next Due COVID-19 mRNA, LNP-s, No Pre serve, 2-Dose Series (Moderna) 11/03/2020,10/06/2020 COVID-19 mRNA, LNP-s, No Pre serve, 2-Dose Series (Pfizer) 06/08/2021 Covid-19, Mrna, Lnp-s, Pf, B ivalent, 30 Mcg, IM, 12 yrs and above (Pfizer) 05/05/2022 H1N1 2009 Influenza, IM 08/15/2009 Hepatitis B, 20+ yrs 01/16/2014,04/06/2013,03/05 PPD 02/27/2013 Pneumococcal Conjugate Vacci ne, 20-valent ([id number]) 03/05/2022 Pneumococcal Polysaccharide PPV23 (Pneumovax) 03/31/2009 Seasonal Influenza Virus Vac cine, Unspecified Formulation 04/12/2022,04/09/2021,05/21/2020,08/02,04/20/2018,2017,04/26/2016 ,09/10/2015,05/10/2014,05/18/2013,10/0 11/2011,04/20/2011,05/15/2010, 0,07/15/2009,05/22/2008,05/24/2007,08/2005 Seasonal Influenza, PF, 6 M & above, IM , (FluLaval or Fluzone) 04/12/2022,04/09/2021,05/21/2020,08/02,04/20/2018 Seasonal Influenza, Quadriva lent, No Preserve, IM 04/01/2023,04/26/2016 Seasonal Influenza, Quadriva lent,with Preserve, 3 yr & above, IM 2017 Seasonal Influenza, Split, I IV3, With Preserve, Inj 2017,09/10/2015,05/10/2014,05/18,05/05/2012,04/20/2011,05/15/2010 ,07/15/2009,05/22/2008,05/24/2007,11/0 08/2005 TDAP (age 11 and older)(Adacel) 08/19/2011 Zoster Vaccine Recombinant (Shingrix) 05/11/2021 ,05/21/2020 [...] Miscellaneous Notes * Telephone Encounter - Rowena Cedillo CMA - 12/16/2023 9:45 AM EDTPending Prescriptions: Disp Refills Furosemide 40 MG Oral Tablet (Lasix) 180 Ta*0 Sig: TAKE 1 TABLET BY MOUTH TWICE A DAY Potassium Chloride ER 10 MEQ Oral Tablet E*90 Tab*0 Sig: TAKE 1 TABLET BY MOUTH DAILY * Telephone Encounter - Rowena Cedillo CMA - 12/16/2023 9:45 AM EDT Scheduling -- please contact pt for follow up. * Telephone Encounter - Rowena Cedillo CMA - 12/16/2023 9:45 AM EDT Did you pend patient's preferred pharmacy and medication before forwarding?yes Pharmacy: [address] [place] Pending Prescriptions: Disp Refills Furosemide 40 MG Oral Tablet (Lasix) [Pha*180 Ta*0 Sig: TAKE 1 TABLET BY MOUTH TWICE A DAY Potassium Chloride ER 10 MEQ Oral Tablet *90 Tab*0 Sig: TAKE 1 TABLET BY MOUTH DAILY Last Visit: 11/30/2022 (in office), Visit date not found (telemedicine) Next Visit: Visit date not found If no future appointments scheduled, and last appointment is greater than a year ago, please schedule patient for a follow-up appointment Last date the medication was ordered: 01-11-2023 Is this request for a controlled substance?No [...] AM EDT Office Visit Sleep Disorders Ctr [facility] [address] [facility] [place] [phone] Charlette Brannon, DO [address] [place] [address] 05/15/2024 1:00 PM EDT Office Visit Family Practice [facility] [place] [address] [place] [address] Brian Salas, DO [address] [facility] [place] [address] Scheduled Procedures Name Priority Associated Diagnoses Date/Ti me COLONOSCOPY FLEXIBLE PROXIMA L DIAGNOSTIC Recall Special screening for malignant neoplasms, colon Health Maintenance Due Date Last Done Comments Cologuard 2008 Fecal Occult Blood Test 2008 Sigmoidoscopy 2008 DTaP,Tdap,and Td Vaccines (2 - Td or Tdap) 08/19/2021 08/19/2011 COVID-19 Vaccine (5 - 2022- season) 2023 05/05/2022, 06/08/2021, 11/03/2020, Additional history exists Mammogram 04/19/2024 04/19/2023, 03/02, 10/06/2021, Additional history exists GFR 05/26/2024 05/26/2023, 03/02, 12/13/2022, Additional history exists HbA1c 05/26/2024 05/26/2023, 06/02, 12/19/2020, Additional history exists TSH 11/13/2024 11/14/2023, 11/29, 11/11/2021, Additional history exists Albumin/Creatinine Ratio 12/13/2025 12/13/2022 Lipid Panel 09/11/2026 09/11/2021, 110 11/2020, 04/17/2021, Additional history exists Colonoscopy 12/04/2031 12/03/2021, 1101/2018, 10/09/2014, Additional history exists Colorectal Cancer Screening 12/04/2031 Hepatitis B Completed 01/16/2014, 12/2012, 03/05/2013 Zoster Vaccines Completed 05/11/2021, 05/21/2020 Pneumococcal Vaccine: Pediatrics (0 to 5 Years) and At-Risk Patients (6 to 64 Years) Completed 03/05/2022, 03/31/2009 Influenza Vaccine (FLU shot) Completed 08/2022, 04/12/2022, 04/12/2022, Additional history exists GARDASIL-HPV IMMUNIZATION SERIES Aged Out No longer eligible based on [...] abnormality documented in this encounter Care Teams Visitor Information Assistant Relationship Specialty Start Date End Date Brian Salas DO [address] [facility] [address] [place] [address] PCP - General Family Medicine 12/16/15 documented as of this encounter
--- NOTE | 2024-06-10 02:50 | Emergency Department Note ---
History of Present Illness General Chief complaint: Trauma Stated complaint: FALL, SHAKY LEGS, ON BLOOD THINNERS Time Seen by Provider: 06/10/24 02:25 History of Present Illness Provider complaint: Fall Maximum Pain Intensity: 3 59-year-old female with history of schizoaffective disorder and bipolar presents to the emergency department for fall. Patient states she was going to turn on the heat when she felt like her legs were weak and she fell. Patient states she did not think she hit her head. Patient is on Eliquis. Patient is reporting no pain at this time to stating she is feels weak. No fevers. No nausea or vomiting. Patient reports that she does not feel safe at her home. Home Medications Medication Instructions Recorded Confirmed Type buspirone 10 mg tablet 10 mg PO TID 06/18/22 08/10/23 History carvedilol 25 mg tablet 25 mg PO BID 06/18/22 08/10/23 History cholecalciferol (vitamin D3) 50 50 mcg PO DAILY 06/18/22 08/10/23 History mcg (2,000 unit) tablet (Vitamin D3) duloxetine 30 mg capsule,delayed 30 mg PO DAILY 06/18/22 08/10/23 History release fluticasone furoate 200 1 ea inhalation DAILY 06/18/22 08/10/23 History mcg-vilanterol 25 mcg/dose inhalation powder (Breo Ellipta) furosemide 40 mg tablet 40 mg PO BID 06/18/22 08/10/23 History gabapentin 300 mg capsule 300 mg PO HS 06/18/22 08/10/23 History hydralazine 50 mg tablet 50 mg PO TID 06/18/22 08/10/23 History hydrochlorothiazide 12.5 mg capsule 12.5 mg PO DAILY 06/18/22 08/10/23 History hydroxychloroquine 200 mg tablet 400 mg PO HS 06/18/22 08/10/23 History hydroxyzine HCl 25 mg tablet 25 mg PO DAILY PRN Anxiety 06/18/22 08/10/23 History iron,carbonyl 65 mg-vitamin C 125 1 tab PO BID 06/18/22 08/10/23 History mg tablet,delayed release (Vitron-C) lamotrigine 200 mg tablet 200 mg PO BID 06/18/22 08/10/23 History levocetirizine 5 mg tablet 2.5 mg PO PM 06/18/22 08/10/23 History losartan 100 mg tablet 100 mg PO DAILY 06/18/22 08/10/23 History melatonin 3 mg tablet 3 mg PO HS 06/18/22 08/10/23 History mirtazapine 30 mg tablet 30 mg PO HS 06/18/22 08/10/23 History montelukast 10 mg tablet 10 mg PO HS 06/18/22 08/10/23 History paliperidone 9 mg tablet,extended 9 mg PO HS 06/18/22 08/10/23 History release 24 hr perphenazine 8 mg tablet 8 mg PO DAILY 06/18/22 08/10/23 History potassium chloride 10 mEq 10 meq PO DAILY 06/18/22 08/10/23 History tablet,extended release riboflavin (vitamin B2) 100 mg 400 mg PO DAILY 06/18/22 08/10/23 History tablet (Vitamin B-2) ropinirole 1 mg tablet 1 mg PO HS 06/18/22 08/10/23 History rosuvastatin 5 mg tablet 5 mg PO HS 06/18/22 08/10/23 History sertraline 100 mg tablet 125 mg PO DAILY 06/18/22 08/10/23 History sotalol 80 mg tablet 40 mg PO BID 06/18/22 08/10/23 History tiotropium bromide 2.5 1 puff inhalation DAILY 06/18/22 08/10/23 History mcg/actuation mist for inhalation (Spiriva Respimat) tizanidine 4 mg tablet 4 mg PO Q8H PRN muscle spasms 06/18/22 08/10/23 History levothyroxine 150 mcg tablet 300 mcg (2 x 150 mcg) PO DAILYBB 06/22/22 08/10/23 Rx (Synthroid) #60 tabs omeprazole 40 mg capsule,delayed 40 mg PO BID #60 caps 06/22/22 08/10/23 Rx release pantoprazole 40 mg tablet,delayed 40 mg PO BID #60 tabs 11/27/22 08/10/23 Rx release Allergies Allergy/AdvReac Type Severity Reaction Status Date / Time adhesive Allergy Intermediate RASH, ITCHY Verified 06/18/22 21:51 Hydantoins Allergy Intermediate Hives Verified 06/18/22 21:51 ethyl alcohol AdvReac Severe Seizure Verified 06/18/22 21:51 thioridazine AdvReac Severe SEIZURES Verified 06/18/22 21:51 phenytoin AdvReac Intermediate Nausea Verified 06/18/22 21:51 Past Med/Surg History Problem List (Updated 06/10/24 @ 05:29 by Rafael Varela MD) Fall (Acute) Symptomatic anemia (Acute) Dyspnea on minimal exertion (Acute) Encounter for pre-operative examination Hyponatremia NATY (acute kidney injury) SEEMA (iron deficiency anemia) (Acute) Anemia (Acute) RLS (restless legs syndrome) MAURO (obstructive sleep apnea) Chronic diastolic (congestive) heart failure Positive SOFIA (antinuclear antibody) Dyslipidemia Hypertension History of iron deficiency anemia (Acute) Bipolar I disorder (Chronic 01/14/13) Intractable vomiting with nausea (Acute) Severe hypertension (Acute) Morbid obesity Chronic back pain High catecholamines Sacroiliac joint pain Lumbar post-laminectomy syndrome Lumbar pain with radiation down both legs Schizoaffective disorder Asthma rare res inh use Paroxysmal A-fib follows with Eduardo Gonsalez > [facility] History Dyspnea Anxiety and depression Admitted to intensive care unit DVT prophylaxis Nausea and vomiting Hypertensive emergency Morbid obesity Bipolar 1 disorder Osteoarthritis Fibromyalgia Spinal stenosis Degenerative disc disease Chronic back pain GERD (gastroesophageal reflux disease) Hypothyroidism Migraine Seizure SEIZURES X 2 (); CONTROLLED ON LAMICTAL Sleep apnea cpap Epilepsy hx of, last one in IBS (irritable bowel syndrome) Surgical History Nausea and vomiting after administration of anesthetic agent History of cataract surgery RT/LEFT History of total abdominal hysterectomy and bilateral salpingo-oophorectomy S/P foot surgery, left X2 History of carpal tunnel release LEFT Status post lumbar spine surgery for decompression of spinal cord + RODS History of colonoscopy History of cholecystectomy History of tooth extraction ALL UPPER TEETH EXTRACTIONS History of tonsillectomy and adenoidectomy History of endoscopic sinus surgery Family History Father Family history of diabetes mellitus Coronary heart disease Mother Lung cancer Sister Alive and well Brother Alive and well Other No family history of adverse response to anesthesia Social History Smoking Status: Never smoker Second Hand Exposure: No; Do You Dip or Chew Tobacco: No; Hx Alcohol Use: No Hx Substance Use: No Preferred Language: Ecuadorean Communication Ability: Effective Visual Impairment: No Limitations 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: Normal Horse Groomer Required: No Beliefs That Will Affect Care: None marital status: Current Living Situation: Alone Current Living Situation Comment: [facility] current occupational status: disabled Feels Safe at Home: Yes Assistive Devices: BiPap, Cane and Walker Physical Exam Vital Signs Vital Signs - 24 hr 06/10/24 02:18 06/10/24 02:18 06/10/24 02:27 Temperature 36.7 C 36.7 C Temperature Source Oral Oral Pulse Rate 78 Pulse Rate [Apical] 75 Pulse Rhythm Regular Pulse Rhythm [Apical] Regular Pulse Strength Normal Pulse Strength [Apical] Normal Respiratory Rate 20 18 Respiratory Effort / Characteristics Non-Labored Spontaneous Non-Labored Spontaneous Respiratory Depth Normal Normal Respiratory Pattern Regular Regular Blood Pressure 161/101 H Blood Pressure [Right Arm] 161/101 H Blood Pressure Mean 121 Blood Pressure Mean [Right Arm] 121 Blood Pressure Position Semi-fowlers Blood Pressure Position [Right Arm] Lying Pulse Oximetry 99 99 Oxygen Delivery Method Room Air Room Air Room Air Sepsis Recent Fever Within 48 Hours No Sepsis New/Unexplained Change in Mental Status N/A Sepsis Action Taken by Nursing No Action Required 06/10/24 02:27 06/10/24 02:27 06/10/24 02:27 Temperature 36.7 C Temperature Source Oral Pulse Rate 75 Pulse Rate [Apical] 78 Pulse Rhythm Regular Pulse Rhythm [Apical] Regular Pulse Strength Pulse Strength [Apical] Normal Respiratory Rate 18 20 Respiratory Effort / Characteristics Non-Labored Spontaneous Respiratory Depth Normal Respiratory Pattern Regular Blood Pressure Blood Pressure [Right Arm] 161/101 H Blood Pressure Mean Blood Pressure Mean [Right Arm] 121 Blood Pressure Position Blood Pressure Position [Right Arm] Semi-fowlers Pulse Oximetry 99 99 99 Oxygen Delivery Method Room Air Room Air Room Air Sepsis Recent Fever Within 48 Hours Sepsis New/Unexplained Change in Mental Status Sepsis Action Taken by Nursing 06/10/24 03:30 06/10/24 04:01 06/10/24 05:16 Temperature Temperature Source Pulse Rate 68 Pulse Rate [Apical] 69 69 Pulse Rhythm Pulse Rhythm [Apical] Regular Regular Pulse Strength Pulse Strength [Apical] Normal Normal Respiratory Rate 20 20 Respiratory Effort / Characteristics Non-Labored Spontaneous Non-Labored Spontaneous Respiratory Depth Normal Normal Respiratory Pattern Regular Regular Blood Pressure Blood Pressure [Right Arm] 171/89 H 170/82 H Blood Pressure Mean Blood Pressure Mean [Right Arm] 116 111 Blood Pressure Position Blood Pressure Position [Right Arm] Lying Lying Pulse Oximetry 97 97 Oxygen Delivery Method Room Air Room Air Sepsis Recent Fever Within 48 Hours Sepsis New/Unexplained Change in Mental Status Sepsis Action Taken by Nursing Physical Exam HENT: Exam performed. -Head: Normocephalic and atraumatic. -Right Ear: External ear normal. No mastoid erythema -Left Ear: External ear normal. No mastoid erythema -Mouth/Throat: The oropharynx is clear and has dry mucous membranes. No trismus in the jaw. No dental abscesses or uvula swelling. No oropharyngeal exudate or tonsillar abscesses. EYES: Conjunctivae and EOM are normal. Pupils are equal, round, and reactive to light. Right eye exhibits no discharge. Left eye exhibits no discharge. No scleral icterus. NECK: Normal range of motion. Neck supple. No JVD present. No spinous process tenderness present. CV: Normal rate, regular rhythm, normal heart sounds and intact distal pulses. There is no peripheral edema. Palpable radial pulses bue. PULM/CHEST: Effort normal and breath sounds normal. No respiratory distress. No stridor. She has no wheezes. She has no rales. -Chest Wall: She exhibits no tenderness. ABD: The abdomen is soft and obese. There is no tenderness. There is no rebound, no guarding MUSC/SKEL: Pelvis stable. NEURO: Motor and sensation grossly intact PSYCH: Bizarre affect. Course Course 0225: The patient was evaluated in room C2. A complete history and physical exam was performed Cardiac monitoring: An order was placed for continuous cardiac monitoring. The monitor shows a rate of 70 with sinus rhythm interpreted by me 0451: Vital signs stable. Labs and imaging are unremarkable. The formal radiology read does make mention about an malpositioned endotracheal tube however the patient is not intubated and this is thought to be an error on the radiologist part. The [facility] radiology team did call me to make me aware of the malposition ET tube and I told them that I would need to speak with the radiologist because the patient is not intubated. Patient is breathing on her own accord and no respiratory distress. She still states she feels unsafe at home. Patient met with director of social services and at this time they thought it would be best to admit the patient for placement. Discussed case with Dr. [facility] hospitalist to evaluate the patient for admission and he was also made aware that the chest x-ray formal radiology report is any accurate. He will evaluate the patient for admission. Administered Medications Discontinued Medications Carvedilol (Carvedilol 3.125 Mg Tab) 3.125 mg PO NOW ONE Stop: 06/10/24 04:53 Last Admin: 06/10/24 05:16 Dose: 3.125 mg Documented By: KELL Medical Decision Making Laboratory Data Attestation: I reviewed the patient's lab results. 06/10/24 02:39 06/10/24 02:39 Lab Results 06/10/24 Range/Units 02:39 WBC 7.17 (4.8-10.8) K/ul RBC 4.05 L (4.20-5.40) M/uL Hgb 11.9 L (12.0-16.0) g/dl Hct 37.9 (37.0-47.0) % MCV 93.6 (80.0-100.0) fL MCH 29.4 (25.0-34.0) pg MCHC 31.4 L (32.0-36.0) g/dL RDW Std Deviation 45.8 (36.4-46.3) fL RDW Coeff of Lor 13.4 (11.5-14.5) % Plt Count 153 (130-400) K/uL MPV 11.7 (9.4-12.4) fL Immature Gran % (Auto) 0.3 % Neut % (Auto) 73.2 % Lymph % (Auto) 13.2 % Wise % (Auto) 11.2 % Eos % (Auto) 1.1 % Baso % (Auto) 1.0 % Neut # (Auto) 5.25 (1.40-6.50) K/uL Lymph # (Auto) 0.95 L (1.20-3.40) K/uL Wise # (Auto) 0.80 H (0.11-0.59) K/uL Eos # (Auto) 0.08 (0.00-0.50) K/uL Baso # (Auto) 0.07 (0.00-0.20) K/uL Immature Gran # (Auto) 0.02 (0.01-0.20) K/uL PT 11.0 (9.0-12.0) Seconds INR 1.0 (0.9-1.1) APTT 27 (21-31) Seconds PTT Ratio 1.0 Sodium 137 (136-145) mmol/L Potassium 3.5 (3.5-5.1) mmol/L Chloride 98 (98-107) mmol/L Carbon Dioxide 34 H (21-32) mmol/L Anion Gap 5 (3-11) BUN 13 (6-23) mg/dl Creatinine 0.67 (0.6-1.2) mg/dl Est Cr Clr Drug Dosing 125.3 ml/min eGFR 99.38 BUN/Creatinine Ratio 19.4 (10-20) Glucose 107 H (70-99(Fasting)) mg/dl Calcium 9.7 (8.6-10.3) mg/dl Imaging Data Attestation: I personally reviewed and interpreted this imaging study as follows: My Impression: Chest x-ray: Chest x-ray negative. Airway clear. No pneumothorax. No consolidation. No cardiomegaly or cephalization.. No free air under the diaphragm. No fractures of the skeletal structures. Pelvis x-ray: No acute fracture or dislocation Radiologist's Impression: Chest X-Ray 06/10/24 02:27 EXAM: XR chest 1V portable CLINICAL HISTORY: TRUAMA ALERT CHEST PAIN/FALL [facility] INPATIENT TECHNIQUE: X-ray image of the chest is obtained in AP projection. COMPARISON: Comparison with the previous study dated 08/10/2023. FINDINGS: Pulmonary Parenchyma: Possible the tip of the ET tube is seen above the mona with a distance measuring about 1.5 cm from the mona. Prominent both abhinav with peribronchial wall cuffing mainly seen in the left parahilar region associated with increased basal bronchovascular markings. Mild blunting of left costophrenic angle which may denote mild left-sided pleural effusion. Bilateral perihilar pulmonary congestion. Heart and Mediastinum: Stable mild cardiomegaly. No mediastinal widening or masses. No hilar or mediastinal lymphadenopathy. Bony Thorax: The bony thorax appears intact without fractures or deformities. Soft Tissues: Soft tissues overlying the chest wall are unremarkable. IMPRESSION: 1. Possibly the tip of ET tube is seen above the mona with a distance measuring about 1.5 cm from the mona. A 2 to 3 cm pullback is advised for proper location. Interval new finding. 2. Prominent both abhinav with increased basal broncho vascular markings and peribronchial wall cuffing as described above. (no gross interval changes) 3. Mild blunting of left costophrenic angle denoting mild left-sided pleural effusion for clinical correlation. (no gross interval changes). 4. No obvious/definite acute bony abnormality. No obvious pneumothorax. CT scan suggested if clinically indicated. Electronically signed by Agustina Avila 06-10-2024 04:[address] 06/10/24 02:27 EXAM: CT head/brain wo con CLINICAL HISTORY: fall, eval for trauma INPATIENT TECHNIQUE: Axial non-contrast CT scan of the brain was performed from the skull base to the high parietal region. One of the following dose reduction techniques was utilized for this exam: Automated exposure control, adjustment of the mA and/or kV according to patient size, use of iterative reconstruction. COMPARISON: 08/10/2023. FINDINGS: Brain Parenchyma: Multiple subcortical periventricular white matter hypodensities are likely due to chronic microvascular ischemic changes. Stable. Unchanged spot of calcification is seen in the right cerebellar hemisphere. Normal attenuation of the cerebral hemispheres, cerebellum, and brainstem. No evidence of acute infarct, hemorrhage, or mass effect. No abnormal areas of hyperattenuation. Ventricular System: Ventricles are normal in size and configuration. No evidence of hydrocephalus or ventricular enlargement. Subarachnoid Spaces: Normal sulci and cisterns. No evidence of subarachnoid hemorrhage or extra-axial fluid collections. Cerebellum and Brainstem: Normal size and attenuation. No masses, lesions, or areas of abnormal attenuation. Orbits: Normal appearance of the globes, optic nerves, and extraocular muscles. No evidence of orbital masses or abnormal attenuation. Sinuses: Partial opacification of both maxillary sinuses and sphenoid sinus, with streaks of hyper densities suggestive of sinusitis. Compared to prior study interval decrease. Almost complete resolution of ethmoid and frontal sinus opacification as compared to previous study. Mastoid Air Cells: Clear mastoid air cells. No evidence of mastoiditis. Skull and Meninges: No evidence of acute bone fracture. Unchanged calvarial bone thickening. This nonspecific finding. This could be due to systemic/endocrine pathology. IMPRESSION: 1. No evidence of skull vault fracture or acute intracranial hemorrhage. 2. Unchanged chronic microvascular ischemic changes. 3. This is a regression of pansinusitis, compared to prior study with almost complete resolution of ethmoid and frontal sinus opacification. Redemonstration of partial opacification of of both maxillary and sphenoid sinus. 4. Unchanged calvarial bone thickening. Need clinical and lab correlation to rule out systemic/endocrine pathology Electronically signed by Agustina Avila 06-10-2024 04:19 AM Pelvis X-Ray 06/10/24 02:27 EXAM: XR pelvis 1-2V routine CLINICAL HISTORY: INPATIENT TECHNIQUE: X-ray images of the pelvis were obtained in anteroposterior (AP) projection. COMPARISON: No prior studies are available for comparison. FINDINGS: Bone Structure: Internal fixation of lower lumber spine with chel and screws with no evidence of hardware fracture seen Pelvic bones, including the iliac wings, ischium, pubis, and sacrum, are normal and intact. No evidence of fractures, dislocations, or significant osseous lesions. Hip Joints: Osteoarthritic changes of both hip joints with mild narrowing of the joint space with osteophyte formation. No evidence of hip dislocation, subluxation, or significant degenerative changes. Acetabulum: Acetabular structures appear normal and intact. No signs of acetabular fracture or dysplasia. Symphysis Pubis: Symphysis pubis is normal and intact. No evidence of separation or widening. Sacroiliac Joints: Sacroiliac joints appear normal and unremarkable. No evidence of sacroiliitis or significant degenerative changes. Soft Tissues: Visualized soft tissues are normal and unremarkable. No soft tissue swelling, calcifications, or masses. Additional Findings: No other significant abnormalities are noted. IMPRESSION: 1. Mild osteoarthritic changes of both hip joints. 2. Internal fixation of lower lumber spine with no evidence of hardware fracture seen Disclaimer: A subtle bone abnormality or fracture may not be readily apparent on X-rays, thus clinical correlation and further imaging including follow-up CT, MRI, or follow-up X-rays are advised as needed. Electronically signed by Agustina Avila 06-10-2024 03:44 AM ECG Data Attestation: I personally reviewed and interpreted this ECG as follows: Rate (beats per minute): 72 Rhythm: + normal sinus ECG Intervals/blocks: + Normal QRS, + Normal ID and + Normal QT-c ECG ST segments: + Normal ST segments [facility] Narrative 0225: The patient was evaluated in room C2. A complete history and physical exam was performed Cardiac monitoring: An order was placed for continuous cardiac monitoring. The monitor shows a rate of 70 with sinus rhythm interpreted by me 0451: Vital signs stable. Labs and imaging are unremarkable. The formal radiology read does make mention about an malpositioned endotracheal tube however the patient is not intubated and this is thought to be an error on the radiologist part. The [facility] radiology team did call me to make me aware of the malposition ET tube and I told them that I would need to speak with the radiologist because the patient is not intubated. Patient is breathing on her own accord and no respiratory distress. She still states she feels unsafe at home. Patient met with director of social services and at this time they thought it would be best to admit the patient for placement. Discussed case with Dr. Zoë Perez hospitalist to evaluate the patient for admission and he was also made aware that the chest x-ray formal radiology report is any accurate. He will evaluate the patient for admission. Impression & Plan Fall Discharge Plan Visit Data Chief Complaint: Trauma Stated Complaint: FALL, SHAKY LEGS, ON BLOOD THINNERS ED Provider: Rafael Varela Discharge Problem: Fall Patient Disposition: Being Evaluated by Hospitalist Forms Stand Alone Forms: My [facility] Prescriptions Prescriptions: No Action furosemide 40 mg tablet 40 mg PO BID carvedilol 25 mg tablet 25 mg PO BID lamotrigine 200 mg tablet 200 mg PO BID ropinirole 1 mg tablet 1 mg PO HS tizanidine 4 mg tablet 4 mg PO Q8H PRN (Reason: muscle spasms) sotalol 80 mg tablet 40 mg PO BID sertraline 100 mg tablet 125 mg PO DAILY potassium chloride 10 mEq tablet extended release 10 meq PO DAILY melatonin 3 mg Tablet 3 mg PO HS mirtazapine 30 mg tablet 30 mg PO HS buspirone 10 mg tablet 10 mg PO TID hydrochlorothiazide 12.5 mg capsule 12.5 mg PO DAILY gabapentin 300 mg capsule 300 mg PO HS montelukast 10 mg Tablet 10 mg PO HS hydroxyzine HCl 25 mg tablet 25 mg PO DAILY PRN (Reason: Anxiety) hydralazine 50 mg tablet 50 mg PO TID hydroxychloroquine 200 mg tablet 400 mg PO HS perphenazine 8 mg tablet 8 mg PO DAILY losartan 100 mg tablet 100 mg PO DAILY rosuvastatin 5 mg tablet 5 mg PO HS duloxetine 30 mg capsule,delayed release(DR/EC) 30 mg PO DAILY paliperidone 9 mg Tablet Extended Release 24 Hr 9 mg PO HS levocetirizine 5 mg Tablet 2.5 mg PO PM cholecalciferol (vitamin D3) [Vitamin D3] 50 mcg (2,000 unit) Tablet 50 mcg PO DAILY Spiriva Respimat 2.5 mcg/actuation mist 1 puff INHALATION DAILY fluticasone furoate-vilanterol [Breo Ellipta] 200-25 mcg/dose blister with device 1 ea INHALATION DAILY riboflavin (vitamin B2) [Vitamin B-2] 100 mg Tablet 400 mg PO DAILY Vitron-C 65 mg iron- 125 mg Tablet,Delayed Release (Dr/Ec) 1 tab PO BID levothyroxine [Synthroid] 150 mcg Tablet 300 mcg PO DAILYBB Qty: 60 0RF omeprazole 40 mg capsule,delayed release(DR/EC) 40 mg PO BID Qty: 60 0RF pantoprazole 40 mg Tablet,Delayed Release (Dr/Ec) 40 mg PO BID Qty: 60 0RF Referrals Referrals: Brian Salas, [Primary Care Provider] -
[2024-06-10 03:10] LABS: BUN Creatinine Ratio 19.4 (10-20); Calcium 9.7 mg/dl (8.6-10.3); Creatinine Clr Calc Pharmacy 125.3 ml/min; Potassium 3.5 mmol/L (3.5-5.1)
[2024-06-10 03:15] LABS: Basophils # (auto) 0.07 K/uL (0.00-0.20); Eosinophils # (auto) 0.08 K/uL (0.00-0.50); Eosinophils % (auto) 1.1 %; Hematocrit (blood only) 37.9 % (37.0-47.0); Hemoglobin 11.9 g/dl (12.0-16.0); Immature Granulocytes # (auto) 0.02 K/uL (0.01-0.20); Immature Granulocytes % (auto) 0.3 %; Lymphocytes # (auto) 0.95 K/uL (1.20-3.40); Lymphocytes % (auto) 13.2 %; Mean Corpuscular Hemoglobin 29.4 pg (25.0-34.0); Mean Corpuscular Hgb Conc 31.4 g/dL (32.0-36.0); Mean Corpuscular Volume 93.6 fL (80.0-100.0); Mean Platelet Volume 11.7 fL (9.4-12.4); Monocytes % (auto) 11.2 %; Neutrophils # (auto) 5.25 K/uL (1.40-6.50); Neutrophils % (auto) 73.2 %; Platelet Count 153 K/uL (130-400); RDW Coefficient of Variation 13.4 % (11.5-14.5); RDW Standard Deviation 45.8 fL (36.4-46.3); Red Blood Count 4.05 M/uL (4.20-5.40); White Blood Count 7.17 K/ul (4.8-10.8)
[2024-06-10 03:23] LABS: Partial Thromboplastin Time 27 Seconds (21-31)
--- NOTE | 2024-06-10 03:45 | XRay Report ---
EXAM: XR pelvis 1-2V routine CLINICAL HISTORY: INPATIENT TECHNIQUE: X-ray images of the pelvis were obtained in anteroposterior (AP) projection. COMPARISON: No prior studies are available for comparison. FINDINGS: Bone Structure: Internal fixation of lower lumber spine with chel and screws with no evidence of hardware fracture seen Pelvic bones, including the iliac wings, ischium, pubis, and sacrum, are normal and intact. No evidence of fractures, dislocations, or significant osseous lesions. Hip Joints: Osteoarthritic changes of both hip joints with mild narrowing of the joint space with osteophyte formation. No evidence of hip dislocation, subluxation, or significant degenerative changes. Acetabulum: Acetabular structures appear normal and intact. No signs of acetabular fracture or dysplasia. Symphysis Pubis: Symphysis pubis is normal and intact. No evidence of separation or widening. Sacroiliac Joints: Sacroiliac joints appear normal and unremarkable. No evidence of sacroiliitis or significant degenerative changes. Soft Tissues: Visualized soft tissues are normal and unremarkable. No soft tissue swelling, calcifications, or masses. Additional Findings: No other significant abnormalities are noted. IMPRESSION: 1. Mild osteoarthritic changes of both hip joints. 2. Internal fixation of lower lumber spine with no evidence of hardware fracture seen Disclaimer: A subtle bone abnormality or fracture may not be readily apparent on X-rays, thus clinical correlation and further imaging including follow-up CT, MRI, or follow-up X-rays are advised as needed. Electronically signed by Agustina Avila 06-10-2024 03:44 AM
--- NOTE | 2024-06-10 04:19 | CT Scan Report ---
EXAM: CT head/brain wo con CLINICAL HISTORY: fall, eval for trauma INPATIENT TECHNIQUE: Axial non-contrast CT scan of the brain was performed from the skull base to the high parietal region. One of the following dose reduction techniques was utilized for this exam: Automated exposure control, adjustment of the mA and/or kV according to patient size, use of iterative reconstruction. COMPARISON: 08/10/2023. FINDINGS: Brain Parenchyma: Multiple subcortical periventricular white matter hypodensities are likely due to chronic microvascular ischemic changes. Stable. Unchanged spot of calcification is seen in the right cerebellar hemisphere. Normal attenuation of the cerebral hemispheres, cerebellum, and brainstem. No evidence of acute infarct, hemorrhage, or mass effect. No abnormal areas of hyperattenuation. Ventricular System: Ventricles are normal in size and configuration. No evidence of hydrocephalus or ventricular enlargement. Subarachnoid Spaces: Normal sulci and cisterns. No evidence of subarachnoid hemorrhage or extra-axial fluid collections. Cerebellum and Brainstem: Normal size and attenuation. No masses, lesions, or areas of abnormal attenuation. Orbits: Normal appearance of the globes, optic nerves, and extraocular muscles. No evidence of orbital masses or abnormal attenuation. Sinuses: Partial opacification of both maxillary sinuses and sphenoid sinus, with streaks of hyper densities suggestive of sinusitis. Compared to prior study interval decrease. Almost complete resolution of ethmoid and frontal sinus opacification as compared to previous study. Mastoid Air Cells: Clear mastoid air cells. No evidence of mastoiditis. Skull and Meninges: No evidence of acute bone fracture. Unchanged calvarial bone thickening. This nonspecific finding. This could be due to systemic/endocrine pathology. IMPRESSION: 1. No evidence of skull vault fracture or acute intracranial hemorrhage. 2. Unchanged chronic microvascular ischemic changes. 3. This is a regression of pansinusitis, compared to prior study with almost complete resolution of ethmoid and frontal sinus opacification. Redemonstration of partial opacification of of both maxillary and sphenoid sinus. 4. Unchanged calvarial bone thickening. Need clinical and lab correlation to rule out systemic/endocrine pathology Electronically signed by Agustina Avila 06-10-2024 04:19 AM
--- NOTE | 2024-06-10 04:41 | XRay Report ---
EXAM: XR chest 1V portable CLINICAL HISTORY: TRUAMA ALERT CHEST PAIN/FALL KFK INPATIENT TECHNIQUE: X-ray image of the chest is obtained in AP projection. COMPARISON: Comparison with the previous study dated 08/10/2023. FINDINGS: Pulmonary Parenchyma: Possible the tip of the ET tube is seen above the mona with a distance measuring about 1.5 cm from the mona. Prominent both abhinav with peribronchial wall cuffing mainly seen in the left parahilar region associated with increased basal bronchovascular markings. Mild blunting of left costophrenic angle which may denote mild left-sided pleural effusion. Bilateral perihilar pulmonary congestion. Heart and Mediastinum: Stable mild cardiomegaly. No mediastinal widening or masses. No hilar or mediastinal lymphadenopathy. Bony Thorax: The bony thorax appears intact without fractures or deformities. Soft Tissues: Soft tissues overlying the chest wall are unremarkable. IMPRESSION: 1. Possibly the tip of ET tube is seen above the mona with a distance measuring about 1.5 cm from the mona. A 2 to 3 cm pullback is advised for proper location. Interval new finding. 2. Prominent both abhinav with increased basal broncho vascular markings and peribronchial wall cuffing as described above. (no gross interval changes) 3. Mild blunting of left costophrenic angle denoting mild left-sided pleural effusion for clinical correlation. (no gross interval changes). 4. No obvious/definite acute bony abnormality. No obvious pneumothorax. CT scan suggested if clinically indicated. Electronically signed by Agustina Avila 06-10-2024 04:41 AM
--- NOTE | 2024-06-10 05:09 | History & Physical Report ---
Date of Service June 10, 2024 Assessment & Plan (1) Asymptomatic hypertensive urgency: Plan: Ambulatory dysfunction chronic diastolic heart failure, some congestion on imaging antiphospholipid antibody syndrome as per records/atrial 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 on Eliquis hx PVD hyperlipidemia, on statin Rx pulmonary hypertension; hx bronchial asthma, OHS on BiPAP seizure disorder stable on regimen SOFIA positive serology/possible Sjogren's disease on hydroxychloroquine prediabetes, outpatient hemoglobin A1c of 5.4 last month hypothyroidism, low TSH on outpatient blood work last month schizoaffective disorder/anxiety/mood disorder, at baseline intellectual impairment as per records, past tobacco abuse. OBS Medical telemetry Facilitate home BP meds, decrease Coreg dose given heart rate 60s and concomitant sotalol Rx, titrate hydralazine, add amlodipine to regimen if still uncontrolled Check TSH PT OT eval DVT prophylaxis. Eliquis Full code Text document was generated using [employer] on [employer] voice recognition software. It may contain grammatical or spelling errors. Kindly contact undersigned for clarification of any documentation item in question. History of Present Illness Chief Complaint: Falling Primary Care Provider: Brian Salas, History obtained from patient and records. Medical history significant for chronic diastolic heart failure (EF 63%, TTE 2021), antiphospholipid antibody syndrome as per records/atrial 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 on Eliquis, PVD, hypertension, hyperlipidemia, pulmonary hypertension, bronchial asthma, OHS on BiPAP, seizure disorder, prediabetes, hypothyroidism, schizoaffective disorder/anxiety/mood disorder, RLS, fibromyalgia, SOFIA positive serology/possible Sjogren's disease on hydroxychloroquine, migraine, intellectual impairment as per records, past tobacco abuse. Last confinement October 2022 for symptomatic anemia. No evidence of GI bleed on EGD colonoscopy. Patient with intermittent bilateral leg weakness over the last couple of months. Patient felt her legs go weak last night at home as she was about to turn on the heat. Patient fell down. No head trauma. No chest pain, no SOB, no LOC. Patient does not feel safe being home from falling. SBP 180s upon EMS arrival. Medical History as above Surgical History : Cataract surgery eardrum surgery, cholecystectomy, BTL, back surgery, sinus surgery, tonsillectomy, hysterectomy Family History : COPD, heart disease, lung cancer Personal/Social history : Past tobacco abuse, no EtOH intake, disabled Allergies Allergy/AdvReac Type Severity Reaction Status Date / Time adhesive Allergy Intermediate RASH, ITCHY Verified 06/18/22 21:51 Hydantoins Allergy Intermediate Hives Verified 06/18/22 21:51 ethyl alcohol AdvReac Severe Seizure Verified 06/18/22 21:51 thioridazine AdvReac Severe SEIZURES Verified 06/18/22 21:51 phenytoin AdvReac Intermediate Nausea Verified 06/18/22 21:51 Home Medications Medication Instructions Recorded Confirmed Type buspirone 10 mg tablet 10 mg PO TID 06/18/22 06/10/24 History carvedilol 25 mg tablet 25 mg PO BID 06/18/22 06/10/24 History cholecalciferol (vitamin D3) 50 50 mcg PO DAILY 06/18/22 06/10/24 History mcg (2,000 unit) tablet (Vitamin D3) duloxetine 30 mg capsule,delayed 30 mg PO DAILY 06/18/22 06/10/24 History release furosemide 40 mg tablet 40 mg PO BID 06/18/22 06/10/24 History gabapentin 300 mg capsule 300 mg PO HS 06/18/22 06/10/24 History hydralazine 50 mg tablet 50 mg PO TID 06/18/22 06/10/24 History hydroxychloroquine 200 mg tablet 400 mg PO HS 06/18/22 06/10/24 History lamotrigine 200 mg tablet 200 mg PO BID 06/18/22 06/10/24 History levocetirizine 5 mg tablet 2.5 mg PO PM 06/18/22 06/10/24 History losartan 100 mg tablet 100 mg PO DAILY 06/18/22 06/10/24 History mirtazapine 30 mg tablet 30 mg PO HS 06/18/22 06/10/24 History montelukast 10 mg tablet 10 mg PO HS 06/18/22 06/10/24 History paliperidone 9 mg tablet,extended 9 mg PO HS 06/18/22 06/10/24 History release 24 hr perphenazine 8 mg tablet 8 mg PO DAILY 06/18/22 06/10/24 History potassium chloride 10 mEq 10 meq PO DAILY 06/18/22 06/10/24 History tablet,extended release ropinirole 1 mg tablet 1 mg PO HS 06/18/22 06/10/24 History rosuvastatin 5 mg tablet 5 mg PO HS 06/18/22 06/10/24 History sertraline 100 mg tablet 125 mg PO DAILY 06/18/22 06/10/24 History sotalol 80 mg tablet 40 mg PO BID 06/18/22 06/10/24 History tiotropium bromide 2.5 1 puff inhalation DAILY 06/18/22 06/10/24 History mcg/actuation mist for inhalation (Spiriva Respimat) omeprazole 40 mg capsule,delayed 40 mg PO BID #60 caps 06/22/22 06/10/24 Rx release levothyroxine 150 mcg tablet 75 mcg PO DAILYBB 06/10/24 06/10/24 History (Synthroid) Past Med/Surg History Problem List (Updated 06/10/24 @ 05:52 by Sarbjit French MD) Asymptomatic hypertensive urgency Fall (Acute) Symptomatic anemia (Acute) Dyspnea on minimal exertion (Acute) Encounter for pre-operative examination Hyponatremia NATY (acute kidney injury) SEEMA (iron deficiency anemia) (Acute) Anemia (Acute) RLS (restless legs syndrome) MAURO (obstructive sleep apnea) Chronic diastolic (congestive) heart failure Positive SOFIA (antinuclear antibody) Dyslipidemia Hypertension History of iron deficiency anemia (Acute) Bipolar I disorder (Chronic 01/14/13) Intractable vomiting with nausea (Acute) Severe hypertension (Acute) Morbid obesity Chronic back pain High catecholamines Sacroiliac joint pain Lumbar post-laminectomy syndrome Lumbar pain with radiation down both legs Schizoaffective disorder Asthma rare res inh use Paroxysmal A-fib follows with Eduardo Gonsalez > [facility] Medical History Dyspnea Anxiety and depression Admitted to intensive care unit DVT prophylaxis Nausea and vomiting Hypertensive emergency Morbid obesity Bipolar 1 disorder Osteoarthritis Fibromyalgia Spinal stenosis Degenerative disc disease Chronic back pain GERD (gastroesophageal reflux disease) Hypothyroidism Migraine Seizure SEIZURES X 2 (); CONTROLLED ON LAMICTAL Sleep apnea cpap Epilepsy hx of, last one in 1989's IBS (irritable bowel syndrome) Surgical History Nausea and vomiting after administration of anesthetic agent History of cataract surgery RT/LEFT History of total abdominal hysterectomy and bilateral salpingo-oophorectomy S/P foot surgery, left X2 History of carpal tunnel release LEFT Status post lumbar spine surgery for decompression of spinal cord + RODS History of colonoscopy History of cholecystectomy History of tooth extraction ALL UPPER TEETH EXTRACTIONS History of tonsillectomy and adenoidectomy History of endoscopic sinus surgery Family History Father Family history of diabetes mellitus Coronary heart disease Mother Lung cancer Sister Alive and well Brother Alive and well Other No family history of adverse response to anesthesia Social History Smoking Status: Never smoker Second Hand Exposure: No; Do You Dip or Chew Tobacco: No; Hx Alcohol Use: No Hx Substance Use: No Preferred Language: Serbian Communication Ability: Effective Visual Impairment: No Limitations 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: Normal Tire Stripper Required: No Beliefs That Will Affect Care: None marital status: Current Living Situation: Alone Current Living Situation Comment: Residential current occupational status: disabled Feels Safe at Home: Yes Assistive Devices: BiPap, Cane and Walker Review of Systems Review of Systems: As per HPI, all other systems reviewed and negative Physical Exam Physical Exam: GENERAL: Comfortable, morbidly obese, no respiratory distress SKIN: Normal color, warm HEENT: Bespectacled, pink palpebral conjunctivae, no ptosis, dry buccal mucosa NECK : Supple, short neck, no tenderness CHEST : CTA, no tenderness HEART : RRR, no obvious murmurs ABDOMEN: Some distention, nontender EXTREMITIES : Bilateral LE swelling without tenderness, no other conspicuous deformities noted NEUROLOGIC : Coherent, no facial asymmetry, MMTS BUE/BLE 4/5, gait and stance not assessed Results & Data Results & Data Vital Signs (Past 12 Hours) Vital Signs Temp Pulse Pulse Resp BP BP Pulse Ox 06/10/24 04:01 68 06/10/24 02:27 75 20 99 06/10/24 02:27 36.7 C 78 18 161/101 H 99 06/10/24 02:27 99 06/10/24 02:27 36.7 C 78 18 161/101 H 99 06/10/24 02:18 36.7 C 75 20 161/101 H 99 06/10/24 02:18 O2 Del Method 06/10/24 04:01 06/10/24 02:27 Room Air 06/10/24 02:27 Room Air 06/10/24 02:27 Room Air 06/10/24 02:27 Room Air 06/10/24 02:18 Room Air 06/10/24 02:18 Room Air Laboratory Results Laboratory Results WBC 7.17 K/ul (4.8-10.8) 06/10/24 02:39 RBC 4.05 M/uL (4.20-5.40) L 06/10/24 02:39 Hgb 11.9 g/dl (12.0-16.0) L 06/10/24 02:39 Hct 37.9 % (37.0-47.0) 06/10/24 02:39 MCV 93.6 fL (80.0-100.0) 06/10/24 02:39 MCH 29.4 pg (25.0-34.0) 06/10/24 02:39 MCHC 31.4 g/dL (32.0-36.0) L 06/10/24 02:39 RDW Std Deviation 45.8 fL (36.4-46.3) 06/10/24 02:39 RDW Coeff of Lor 13.4 % (11.5-14.5) 06/10/24 02:39 Plt Count 153 K/uL (130-400) 06/10/24 02:39 MPV 11.7 fL (9.4-12.4) 06/10/24 02:39 Immature Gran % (Auto) 0.3 % 06/10/24 02:39 Neut % (Auto) 73.2 % 06/10/24 02:39 Lymph % (Auto) 13.2 % 06/10/24 02:39 [place] % (Auto) 11.2 % 06/10/24 02:39 Eos % (Auto) 1.1 % 06/10/24 02:39 Baso % (Auto) 1.0 % 06/10/24 02:39 Neut # (Auto) 5.25 K/uL (1.40-6.50) 06/10/24 02:39 Lymph # (Auto) 0.95 K/uL (1.20-3.40) L 06/10/24 02:39 [place] # (Auto) 0.80 K/uL (0.11-0.59) H 06/10/24 02:39 Eos # (Auto) 0.08 K/uL (0.00-0.50) 06/10/24 02:39 Baso # (Auto) 0.07 K/uL (0.00-0.20) 06/10/24 02:39 Immature Gran # (Auto) 0.02 K/uL (0.01-0.20) 06/10/24 02:39 PT 11.0 Seconds (9.0-12.0) 06/10/24 02:39 INR 1.0 (0.9-1.1) 06/10/24 02:39 APTT 27 Seconds (21-31) 06/10/24 02:39 PTT Ratio 1.0 06/10/24 02:39 Sodium 137 mmol/L (136-145) 06/10/24 02:39 Potassium 3.5 mmol/L (3.5-5.1) 06/10/24 02:39 Chloride 98 mmol/L (98-107) 06/10/24 02:39 Carbon Dioxide 34 mmol/L (21-32) H 06/10/24 02:39 Anion Gap 5 (3-11) 06/10/24 02:39 BUN 13 mg/dl (6-23) 06/10/24 02:39 Creatinine 0.67 mg/dl (0.6-1.2) 06/10/24 02:39 Est Cr Clr Drug Dosing 125.3 ml/min 06/10/24 02:39 eGFR 99.38 06/10/24 02:39 BUN/Creatinine Ratio 19.4 (10-20) 06/10/24 02:39 Glucose 107 mg/dl (70-99(Fasting)) H 06/10/24 02:39 Calcium 9.7 mg/dl (8.6-10.3) 06/10/24 02:39 Impressions Chest X-Ray 06/10/24 02:27 EXAM: XR chest 1V portable CLINICAL HISTORY: TRUAMA ALERT CHEST PAIN/FALL [facility] INPATIENT TECHNIQUE: X-ray image of the chest is obtained in AP projection. COMPARISON: Comparison with the previous study dated 08/10/2023. FINDINGS: Pulmonary Parenchyma: Prominent both abhinav with peribronchial wall cuffing mainly seen in the left parahilar region associated with increased basal bronchovascular markings. Mild blunting of left costophrenic angle which may denote mild left-sided pleural effusion. Bilateral perihilar pulmonary congestion. Heart and Mediastinum: Stable mild cardiomegaly. No mediastinal widening or masses. No hilar or mediastinal lymphadenopathy. Bony Thorax: The bony thorax appears intact without fractures or deformities. Soft Tissues: Soft tissues overlying the chest wall are unremarkable. IMPRESSION: 1. Prominent both abhinav with increased basal broncho vascular markings and peribronchial wall cuffing as described above. (no gross interval changes) 2. Mild blunting of left costophrenic angle denoting mild left-sided pleural effusion for clinical correlation. (no gross interval changes). 3. No obvious/definite acute bony abnormality. No obvious pneumothorax. CT scan suggested if clinically indicated. Electronically signed by Agustina Avila 06-10-2024 04:[address] 06/10/24 02:27 EXAM: CT head/brain wo con CLINICAL HISTORY: fall, eval for trauma INPATIENT TECHNIQUE: Axial non-contrast CT scan of the brain was performed from the skull base to the high parietal region. One of the following dose reduction techniques was utilized for this exam: Automated exposure control, adjustment of the mA and/or kV according to patient size, use of iterative reconstruction. COMPARISON: 08/10/2023. FINDINGS: Brain Parenchyma: Multiple subcortical periventricular white matter hypodensities are likely due to chronic microvascular ischemic changes. Stable. Unchanged spot of calcification is seen in the right cerebellar hemisphere. Normal attenuation of the cerebral hemispheres, cerebellum, and brainstem. No evidence of acute infarct, hemorrhage, or mass effect. No abnormal areas of hyperattenuation. Ventricular System: Ventricles are normal in size and configuration. No evidence of hydrocephalus or ventricular enlargement. Subarachnoid Spaces: Normal sulci and cisterns. No evidence of subarachnoid hemorrhage or extra-axial fluid collections. Cerebellum and Brainstem: Normal size and attenuation. No masses, lesions, or areas of abnormal attenuation. Orbits: Normal appearance of the globes, optic nerves, and extraocular muscles. No evidence of orbital masses or abnormal attenuation. Sinuses: Partial opacification of both maxillary sinuses and sphenoid sinus, with streaks of hyper densities suggestive of sinusitis. Compared to prior study interval decrease. Almost complete resolution of ethmoid and frontal sinus opacification as compared to previous study. Mastoid Air Cells: Clear mastoid air cells. No evidence of mastoiditis. Skull and Meninges: No evidence of acute bone fracture. Unchanged calvarial bone thickening. This nonspecific finding. This could be due to systemic/endocrine pathology. IMPRESSION: 1. No evidence of skull vault fracture or acute intracranial hemorrhage. 2. Unchanged chronic microvascular ischemic changes. 3. This is a regression of pansinusitis, compared to prior study with almost complete resolution of ethmoid and frontal sinus opacification. Redemonstration of partial opacification of of both maxillary and sphenoid sinus. 4. Unchanged calvarial bone thickening. Need clinical and lab correlation to rule out systemic/endocrine pathology Electronically signed by Agustina Avila 06-10-2024 04:19 AM Pelvis X-Ray 06/10/24 02:27 EXAM: XR pelvis 1-2V routine CLINICAL HISTORY: INPATIENT TECHNIQUE: X-ray images of the pelvis were obtained in anteroposterior (AP) projection. COMPARISON: No prior studies are available for comparison. FINDINGS: Bone Structure: Internal fixation of lower lumber spine with chel and screws with no evidence of hardware fracture seen Pelvic bones, including the iliac wings, ischium, pubis, and sacrum, are normal and intact. No evidence of fractures, dislocations, or significant osseous lesions. Hip Joints: Osteoarthritic changes of both hip joints with mild narrowing of the joint space with osteophyte formation. No evidence of hip dislocation, subluxation, or significant degenerative changes. Acetabulum: Acetabular structures appear normal and intact. No signs of acetabular fracture or dysplasia. Symphysis Pubis: Symphysis pubis is normal and intact. No evidence of separation or widening. Sacroiliac Joints: Sacroiliac joints appear normal and unremarkable. No evidence of sacroiliitis or significant degenerative changes. Soft Tissues: Visualized soft tissues are normal and unremarkable. No soft tissue swelling, calcifications, or masses. Additional Findings: No other significant abnormalities are noted. IMPRESSION: 1. Mild osteoarthritic changes of both hip joints. 2. Internal fixation of lower lumber spine with no evidence of hardware fracture seen Disclaimer: A subtle bone abnormality or fracture may not be readily apparent on X-rays, thus clinical correlation and further imaging including follow-up CT, MRI, or follow-up X-rays are advised as needed. Electronically signed by Agustina Avila 06-10-2024 03:44 AM Diagnostic Findings EKG could not be located at time of dictation
[2024-06-10] MEDS: carvediloL 3.125 MG TAB PO ONE (05:16)
[2024-06-10] MEDS ORDERED: ACETAMINOPHEN 325 MG TAB PO PRN (05:43)
[2024-06-10] MEDS ORDERED: PROMETHAZINE 6.25 MG/50.25 ML BAG IV PRN (05:43)
[2024-06-10 05:46] LABS: Magnesium 1.9 mg/dl (1.7-2.4)
[2024-06-10 05:57] LABS: Appearance Urine Clear (Clear); Bilirubin Urine Negative (Negative); Blood Urine Negative (Negative); Color Urine Yellow; Glucose Urine UA Negative (Negative); Ketones Urine Negative (Negative); Leukocyte Esterase Urine Negative (Negative); Nitrite Urine Negative (Negative); Protein Urine Negative (Negative); Urobilinogen Urine Negative (Negative); pH Urine 5.5 (4.5-7.5)
[2024-06-10 06:02] LABS: Thyroid Stimulating Hormone 0.491 uIu/ml (0.300-4.500)
[2024-06-10] MEDS: oxyCODONE HCL IR 5 MG TAB (IMMEDIATE RELEASE) PO PRN (07:19)
[2024-06-10] MEDS: LEVOTHYROXINE SODIUM 75 MCG TABLET PO SCH (08:03)
[2024-06-10] MEDS: DULoxetine HCL 30 MG CAP PO SCH (08:03)
[2024-06-10] MEDS: busPIRone 5 MG TAB PO SCH (08:03)
[2024-06-10] MEDS: hydrALAZINE HCL 25 MG TAB PO SCH (08:03)
[2024-06-10] MEDS: lamoTRIgine 100 MG TAB PO SCH (08:04)
[2024-06-10] MEDS: SERTRALINE HCL 50 MG TABLET PO SCH (08:04)
[2024-06-10] MEDS: UMECLIDINIUM BROMIDE 62.5MCG/BLISTER 7 PUFFS/INHALER INH SCH (08:04)
[2024-06-10] MEDS: PERPHENAZINE 4 MG TAB PO SCH (08:04)
[2024-06-10] MEDS: LOSARTAN POTASSIUM 50 MG TAB PO SCH (08:04)
[2024-06-10] MEDS: PANTOprazole 40 MG TAB PO SCH (08:04)
[2024-06-10] MEDS: SOTALOL HCL 80 MG TAB PO SCH (08:04)
[2024-06-10] MEDS: FUROSEMIDE 40 MG TAB PO SCH (08:04)
--- NOTE | 2024-06-10 12:23 | Communication Note ---
Date of Service: June 10, 2024 Evaluated patient at bedside No acute concerns, BP better controlled Followed Dr. Salas for concerns of mobility, has been thinking about assisted living. Lives alone and scared at this time for home EXAM no focal neurologic deficits noted, pleasant, RRR, CTAB #Ambulatory dysfunction #Mechanical fall Follows Dr Salas, noted progression and concern for home safety Labs unremarkable, neuro exam nonfocal No incontinence or other contributing factors ambulates with cane PT/OT Open to rehab v home support #Hypertensive urgency #Chronic heart failure with preserved EF ECHO 2019: Calculated LV ejection Fraction = 63% (bi-plane method of discs). Grade 2 diastolic dysfunction. Much improved with initiation of PO regimen Continue losartan 100mg daily Continue reduced dose of coreg at 3.125mg BID Continue hydralazine 75mg TID (increased) Continue hctz 12.5mg daily seems compensated at this time #HLD continue statin #Paroxysmal a fib/flutter s/p cardioversion 2018/ablation 2018 continue sotolol 40mg BID no longer on eliquis 2.2 hx of anemia #Chronic iron deficiency anemia follows heme onc for IV iron continue po iron #Moderate, persistent asthma Continue inhalers and montelukast #MAURO on BiPAP therapy #Pulmonary hypertension , group II/III #Obesity hypoventilation syndrome #Morbid Obesity, Body mass index is 50.57 kg/m 04/2024--now 43.5 Intentional working to lose weight Continue use of BIPAP #Schizoaffective disorder #Intellectual disability continue perphenazine 8mg qhs, paliperidone 9mg qhs continue lamitcal 200mg bid rest of plan per HP
[2024-06-10] MEDS: hydrALAZINE HCL 20 MG/ML VIAL IV STA (16:38)
[2024-06-10] MEDS: hydrALAZINE HCL 20 MG/ML VIAL ONE (16:51)
[2024-06-10] MEDS: POTASSIUM CHLORIDE CRTAB 20 MEQ TABCR PO STA (16:54)
[2024-06-10] MEDS: SPIRONOLACTONE 25 MG TAB PO ONE (16:54)
[2024-06-10] MEDS: PALIPERIDONE 3 MG TABCR PO SCH (20:41)
[2024-06-10] MEDS: GABAPENTIN 300 MG CAP PO SCH (20:41)
[2024-06-10] MEDS: CETIRIZINE HCL 10 MG TABLET PO SCH (20:42)
[2024-06-10] MEDS: carvediloL 3.125 MG TAB PO SCH (20:44)
[2024-06-10] MEDS: MONTELUKAST SODIUM 10 MG TABLET PO SCH (20:44)
[2024-06-10] MEDS: HYDROXYCHLOROQUINE SULFATE 200 MG TAB PO SCH (20:45)
[2024-06-10] MEDS: MELATONIN 3 MG TAB PO SCH (20:45)
[2024-06-10] MEDS: ROSUVASTATIN CALCIUM 5 MG TAB PO SCH (20:45)
[2024-06-10] MEDS: rOPINIRole HCL 1 MG TABLET PO SCH (20:46)
[2024-06-10] MEDS: MIRTAZAPINE TAB 15 MG TAB PO SCH (20:48)
[2024-06-10] MEDS: tiZANidine HCL 4 MG TABLET PO PRN (21:37)
[2024-06-11] MEDS: LEVOTHYROXINE SODIUM 200 MCG TABLET PO SCH (05:46)
[2024-06-11 06:29] LABS: Basophils # (auto) 0.04 K/uL (0.00-0.20); Basophils % (auto) 0.5 %; Eosinophils # (auto) 0.05 K/uL (0.00-0.50); Eosinophils % (auto) 0.6 %; Hematocrit (blood only) 37.1 % (37.0-47.0); Hemoglobin 11.9 g/dl (12.0-16.0); Immature Granulocytes # (auto) 0.02 K/uL (0.01-0.20); Immature Granulocytes % (auto) 0.2 %; Lymphocytes # (auto) 1.06 K/uL (1.20-3.40); Lymphocytes % (auto) 12.3 %; Mean Corpuscular Hemoglobin 29.7 pg (25.0-34.0); Mean Corpuscular Hgb Conc 32.1 g/dL (32.0-36.0); Mean Corpuscular Volume 92.5 fL (80.0-100.0); Mean Platelet Volume 12.2 fL (9.4-12.4); Monocytes # (auto) 0.89 K/uL (0.11-0.59); Monocytes % (auto) 10.3 %; Neutrophils # (auto) 6.58 K/uL (1.40-6.50); Neutrophils % (auto) 76.1 %; Platelet Count 163 K/uL (130-400); RDW Coefficient of Variation 13.5 % (11.5-14.5); Red Blood Count 4.01 M/uL (4.20-5.40); White Blood Count 8.64 K/ul (4.8-10.8)
[2024-06-11 06:37] LABS: BUN Creatinine Ratio 16.4 (10-20); Creatinine Clr Calc Pharmacy 112.8 ml/min; Potassium 3.7 mmol/L (3.5-5.1)
[2024-06-11] MEDS: hydroCHLOROthiazide 25 MG TAB PO SCH (07:46)
[2024-06-11] MEDS: CHOLECALCIFEROL 25 MCG (1000 UNITS) TAB PO SCH (07:46)
[2024-06-11] MEDS: SPIRONOLACTONE 25 MG TAB PO SCH (08:30)
--- NOTE | 2024-06-11 10:04 | Hospitalist Progress Note ---
Date of Service June 11, 2024 Assessment & Plan (1) Asymptomatic hypertensive urgency: Plan Ms. Melton is a 59 yo woman with medical history significant for chronic diastolic heart failure (EF 63%, TTE 2021), antiphospholipid antibody syndrome as per records/atrial 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 on Eliquis, PVD, hypertension, hyperlipidemia, pulmonary hypertension, bronchial asthma, OHS on BiPAP, seizure disorder, prediabetes, hypothyroidism, schizoaffective disorder/anxiety/mood disorder, RLS, fibromyalgia, SOFIA positive serology/possible Sjogren's disease on hydroxychloroquine, migraine, intellectual impairment as per records, past tobacco abuse who was admitted for hypertensive urgency and eval after mechanical fall at home. Patient reports following Dr. Salas for concerns of mobility, has been thinking about assisted living. Lives alone and scared at this time for home Blood pressure improved. PT/OT ordered #Ambulatory dysfunction #Mechanical fall Follows Dr Salas, noted progression and concern for home safety Labs unremarkable, neuro exam nonfocal No incontinence or other contributing factors ambulates with cane PT/OT pending Open to rehab v home support #Hypertensive urgency *improved #Chronic heart failure with preserved EF ECHO 2019: Calculated LV ejection Fraction = 63% (bi-plane method of discs). Grade 2 diastolic dysfunction. Much improved with initiation of PO regimen Continue losartan 100mg daily Continue reduced dose of coreg at 3.125mg BID Continue hydralazine 75mg TID (increased) Continue hctz 12.5mg daily Started spironolactone 25mg daily seems compensated at this time #HLD continue statin #Paroxysmal a fib/flutter s/p cardioversion 2018/ablation 2018 continue sotolol 40mg BID no longer on eliquis 2.2 hx of anemia #Chronic iron deficiency anemia follows heme onc for IV iron continue po iron #Moderate, persistent asthma Continue inhalers and montelukast #SOFIA + serology/sjorgrens #APS no longer on anticoagulation 2/2 bleeding on hydroxychloroquine,continue #MAURO on BiPAP therapy #Pulmonary hypertension , group II/III #Obesity hypoventilation syndrome #Morbid Obesity, Body mass index is 50.57 kg/m 04/2024--now 43.5 Intentional working to lose weight Continue use of BIPAP #Schizoaffective disorder #Intellectual disability continue perphenazine 8mg qhs, paliperidone 9mg qhs continue lamitcal 200mg bid DISPO after PT/OT recommendations DVT: declined 2/2 hx of bleed, activity as tolerated Admission and Anticipated Discharge Date Admission Date: June 10, 2024 Subjective evaluated patient sitting on bedside edge discussed adjustments made to medications, patient verbalized understanding discussed plan for PT eval and case advocate patient agreed and without any acute concerns this am Physical Exam Constitutional: WD/WN, vitals as above Respiratory: normal respiratory effort, lungs clear to auscultation Cardiovascular: RRR, no murmur, no edema Gastrointestinal (Abdomen): normal bowel sounds, soft, nontender, no hepatosplenomegaly Results & Data Results & Data Vital Signs (Past 12 Hours) Vital Signs Temp Pulse Pulse Resp BP BP Pulse Ox 06/11/24 08:15 75 06/11/24 07:25 06/11/24 07:17 36.6 C 63 18 147/70 H 95 06/11/24 02:53 36.3 C L 67 18 134/74 94 06/10/24 23:11 06/10/24 23:10 36.7 C 74 18 148/81 H 93 06/10/24 22:05 75 O2 Del Method 06/11/24 08:15 06/11/24 07:25 Room Air 06/11/24 07:17 Room Air 06/11/24 02:53 Room Air 06/10/24 23:11 Room Air 06/10/24 23:10 Room Air 06/10/24 22:05 Laboratory Results Short CBC 06/11/24 Range/Units 05:33 WBC 8.64 (4.8-10.8) K/ul Hgb 11.9 L (12.0-16.0) g/dl Hct 37.1 (37.0-47.0) % Plt Count 163 (130-400) K/uL BMP 06/11/24 05:33 Sodium 139 Potassium 3.7 Chloride 97 L Carbon Dioxide 34 H BUN 12 Creatinine 0.73 Glucose 98 Calcium 10.0 Medications Administered Home Medications Medication Instructions Recorded Confirmed Last Taken buspirone 10 mg tablet 10 mg PO TID 06/18/22 06/10/24 Unknown carvedilol 25 mg tablet 25 mg PO BID 06/18/22 06/10/24 Unknown cholecalciferol (vitamin D3) 50 50 mcg PO DAILY 06/18/22 06/10/24 Unknown mcg (2,000 unit) tablet (Vitamin D3) duloxetine 30 mg capsule,delayed 30 mg PO DAILY 06/18/22 06/10/24 Unknown release gabapentin 300 mg capsule 300 mg PO HS 06/18/22 06/10/24 Unknown hydralazine 50 mg tablet 50 mg PO TID 06/18/22 06/10/24 Unknown hydroxychloroquine 200 mg tablet 400 mg PO HS 06/18/22 06/10/24 Unknown lamotrigine 200 mg tablet 200 mg PO BID 06/18/22 06/10/24 Unknown levocetirizine 5 mg tablet 2.5 mg PO PM 06/18/22 06/10/24 Unknown losartan 100 mg tablet 100 mg PO DAILY 06/18/22 06/10/24 Unknown mirtazapine 30 mg tablet 30 mg PO HS 06/18/22 06/10/24 Unknown montelukast 10 mg tablet 10 mg PO HS 06/18/22 06/10/24 Unknown paliperidone 9 mg tablet,extended 9 mg PO HS 06/18/22 06/10/24 Unknown release 24 hr perphenazine 8 mg tablet 8 mg PO DAILY 06/18/22 06/10/24 Unknown potassium chloride 10 mEq 10 meq PO DAILY 06/18/22 06/10/24 Unknown tablet,extended release ropinirole 1 mg tablet 1 mg PO HS 06/18/22 06/10/24 Unknown rosuvastatin 5 mg tablet 5 mg PO HS 06/18/22 06/10/24 Unknown sertraline 100 mg tablet 125 mg PO DAILY 06/18/22 06/10/24 Unknown sotalol 80 mg tablet 40 mg PO BID 06/18/22 06/10/24 Unknown omeprazole 40 mg capsule,delayed 40 mg PO BID #60 caps 06/22/22 06/10/24 Unknown release hydrochlorothiazide 12.5 mg capsule 12.5 mg PO DAILY 06/10/24 06/10/24 Unknown levothyroxine 200 mcg tablet 200 mcg PO DAILY 06/10/24 06/10/24 Unknown Active Medications Generic Name Dose Route Start Last Admin Trade Name Freq PRN Reason Stop Dose Admin Buspirone HCl 10 mg 06/10/24 09:00 06/11/24 07:46 Buspirone 5 Mg Tab PO 07/10/24 08:59 10 mg TID RAVI Administration Carvedilol 3.125 mg 06/10/24 21:00 06/11/24 07:46 Carvedilol 3.125 Mg Tab PO 07/10/24 20:59 3.125 mg BID RAVI Administration Cetirizine HCl 5 mg 06/10/24 21:00 06/10/24 20:42 Cetirizine Hcl 10 Mg Tablet PO 07/10/24 20:59 5 mg PM RAVI Administration Duloxetine HCl 30 mg 06/10/24 09:00 06/11/24 07:46 Duloxetine Hcl 30 Mg Cap PO 07/10/24 08:59 30 mg DAILY RAVI Administration Gabapentin 300 mg 06/10/24 21:00 06/10/24 20:41 Gabapentin 300 Mg Cap PO 07/10/24 20:59 300 mg HS RAVI Administration Hydralazine HCl 75 mg 06/10/24 06:35 06/11/24 07:46 Hydralazine Hcl 25 Mg Tab PO 07/10/24 06:34 75 mg TID RAVI Administration Hydrochlorothiazide 12.5 mg 06/11/24 09:00 06/11/24 07:46 Hydrochlorothiazide 25 Mg Tab PO 07/11/24 08:59 12.5 mg DAILY RAVI Administration Hydroxychloroquine Sulfate 400 mg 06/10/24 21:00 06/10/24 20:45 Hydroxychloroquine Sulfate 200 Mg Tab PO 07/10/24 20:59 400 mg HS RAVI Administration Lamotrigine 200 mg 06/10/24 09:00 06/11/24 07:47 Lamotrigine 100 Mg Tab PO 07/10/24 08:59 200 mg BID RAVI Administration Protocol Levothyroxine Sodium 200 mcg 06/11/24 06:30 06/11/24 05:46 Levothyroxine Sodium 200 Mcg Tablet PO 07/11/24 06:29 200 mcg DAILYBB RAVI Administration Losartan Potassium 100 mg 06/10/24 09:00 06/11/24 07:47 Losartan Potassium 50 Mg Tab PO 07/10/24 08:59 100 mg DAILY RAVI Administration Melatonin 9 mg 06/10/24 21:00 06/10/24 20:45 Melatonin 3 Mg Tab PO 07/10/24 20:59 9 mg HS RAVI Administration Mirtazapine 30 mg 06/10/24 21:00 06/10/24 20:48 Mirtazapine Tab 15 Mg Tab PO 07/10/24 20:59 30 mg HS RAVI Administration Montelukast Sodium 10 mg 06/10/24 21:00 06/10/24 20:44 Montelukast Sodium 10 Mg Tablet PO 07/10/24 20:59 10 mg HS RAVI Administration Oxycodone HCl 5 mg 06/10/24 05:43 06/10/24 20:45 Oxycodone Hcl Ir 5 Mg Tab (Immediate Release) PO 06/24/24 05:42 5 mg Q4H PRN Administration Pain Paliperidone 9 mg 06/10/24 21:00 06/10/24 20:41 Paliperidone 3 Mg Tabcr PO 07/10/24 20:59 9 mg HS RAVI Administration Pantoprazole Sodium 40 mg 06/10/24 09:00 06/11/24 07:47 Pantoprazole 40 Mg Tab PO 07/10/24 08:59 40 mg BID RAVI Administration Perphenazine 8 mg 06/10/24 09:00 06/11/24 07:47 Perphenazine 4 Mg Tab PO 07/10/24 08:59 8 mg DAILY RAVI Administration Ropinirole HCl 1 mg 06/10/24 21:00 06/10/24 20:46 Ropinirole Hcl 1 Mg Tablet PO 07/10/24 20:59 1 mg HS RAVI Administration Rosuvastatin Calcium 5 mg 06/10/24 21:00 06/10/24 20:45 Rosuvastatin Calcium 5 Mg Tab PO 07/10/24 20:59 5 mg HS RAVI Administration Sertraline HCl 125 mg 06/10/24 09:00 06/11/24 07:47 Sertraline Hcl 50 Mg Tablet PO 07/10/24 08:59 125 mg DAILY RAVI Administration Sotalol HCl 40 mg 06/10/24 09:00 06/11/24 07:47 Sotalol Hcl 80 Mg Tab PO 07/10/24 08:59 40 mg BID RAVI Administration Spironolactone 25 mg 06/11/24 09:00 06/11/24 08:30 Spironolactone 25 Mg Tab PO 07/11/24 08:59 25 mg QAM RAVI Administration Tizanidine HCl 4 mg 06/10/24 12:53 06/10/24 21:37 Tizanidine Hcl 4 Mg Tablet PO 07/10/24 20:59 4 mg HS PRN Administration spasm Umeclidinium [place] 1 puffs 06/10/24 09:00 06/11/24 07:55 Umeclidinium [place] 62.5mcg/Blister 7 Puffs/Inhaler INH 07/10/24 08:59 1 puffs DAILY RAVI Administration Vitamin D 50 mcg 06/11/24 09:00 06/11/24 07:46 Cholecalciferol 25 Mcg (1000 Units) Tab PO 07/11/24 08:59 50 mcg DAILY RAVI Administration
[2024-06-11] MEDS: amLODIPine BESYLATE 5 MG TAB PO SCH (20:47)
[2024-06-12 07:39] VITALS: O2SAT 98
[2024-06-12] MEDS ORDERED: hydroCHLOROthiazide 25 MG TAB PO SCH (09:00)
[2024-06-12] MEDS: hydroCHLOROthiazide 25 MG TAB PO SCH (09:51)
[2024-06-12 11:07] VITALS: BP 146/80; PULSE 64; RESP 16; TEMP 97.6
--- NOTE | 2024-06-12 12:04 | Electrocardiogram Report ---
Test Reason : Blood Pressure : */* mmHG Vent. Rate : 72 BPM Atrial Rate : 72 BPM P-R Int : 144 ms QRS Dur : 88 ms QT Int : 410 ms P-R-T Axes : 108 43 42 degrees QTcB Int : 448 ms Normal sinus rhythm Normal ECG When compared with ECG of 10-Aug-2023 11:05, No significant change was found Confirmed by Uriel Montanez ([id number]) on 06/12/2024 12:03:57 PM Referred By: REFERRED SELF Confirmed By: Uriel Montanez
--- NOTE | 2024-06-12 12:33 | Discharge Summary ---
Discharge Summary Date of Service June 12, 2024 Principal Dx & Hospital Course #1 = Principal Diagnosis (1) Asymptomatic hypertensive urgency: Plan Ms. Melton is a 59 yo woman with medical history significant for chronic diasto lic heart failure (EF 63%, TTE 2021), antiphospholipid antibody syndrome as per records/atrial 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 on Eliquis, PVD, hypertension, hyperlipidemia, pulmonary hypertension, bronchial asthma, OHS on BiPAP, seizure disorder, prediabetes, hypothyroidism, schizoaffective disorder/anxiety/mood disorder, RLS, fibromyalgia, SOFIA positive serology/possible Sjogren's disease on hydroxychloroquine, migraine, intellectual impairment as per records, past tobacco abuse who was admitted for hypertensive urgency and eval after mechanical fall at home. Patient reports following Dr. Salas for concerns of mobility, has been thinking about assisted living. Lives alone and scared at this time for home Blood pressures challenging--discontinue coreg given bradycardia and doing with with control on sotalol. Started spironolactone and amlodipine with better control, as well as increased hydralazine. Patient otherwise stable for discharge to rehab. #Ambulatory dysfunction #Mechanical fall Follows Dr Salas, noted progression and concern for home safety Labs unremarkable, neuro exam nonfocal No incontinence or other contributing factors ambulates with cane PT/OT:[facility] #Hypertensive urgency *improved #Chronic heart failure with preserved EF ECHO 2019: Calculated LV ejection Fraction = 63% (bi-plane method of discs). Grade 2 diastolic dysfunction. Much improved with initiation of PO regimen Continue losartan 100mg daily Discontinue coreg Increased hydralazine 75mg TID Continue hctz 12.5mg daily Started spironolactone 25mg daily Started amlodipine bid seems compensated at this time #HLD continue statin #Paroxysmal a fib/flutter s/p cardioversion 2018/ablation 2018 continue sotolol 40mg BID no longer on eliquis 2.2 hx of anemia #Chronic iron deficiency anemia follows heme onc for IV iron continue po iron #Moderate, persistent asthma Continue inhalers and montelukast #SOFIA + serology/sjorgrens #APS no longer on anticoagulation 2/2 bleeding on hydroxychloroquine,continue #MAURO on BiPAP therapy #Pulmonary hypertension , group II/III #Obesity hypoventilation syndrome #Morbid Obesity, Body mass index is 50.57 kg/m 04/2024--now 43.5 Intentional working to lose weight Continue use of BIPAP #Schizoaffective disorder #Intellectual disability continue perphenazine 8mg qhs, paliperidone 9mg qhs continue lamitcal 200mg bid Notes For Next Care Provider Consider OP Nephrology for secondary causes of HTN Medication Changes From Visit Continue losartan 100mg daily Discontinue coreg Increased hydralazine 75mg TID Continue hctz 12.5mg daily Started spironolactone 25mg daily Started amlodipine bid Admission HPI Per Admitting Provider History obtained from patient and records. Medical history significant for chronic diastolic heart failure (EF 63%, TTE 2), antiphospholipid antibody syndrome as per records/atrial 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 on Eliquis, PVD, hypertension, hyperlipidemia, pulmonary hypertension, bronchial asthma, OHS on BiPAP, seizure disorder, prediabetes, hypothyroidism, schizoaffective disorder/anxiety/mood disorder, RLS, fibromyalgia, SOFIA positive serology/possible Sjogren's disease on hydroxychloroquine, migraine, intellectual impairment as per records, past tobacco abuse. Last confinement October 2022 for symptomatic anemia. No evidence of GI bleed on EGD colonoscopy. Patient with intermittent bilateral leg weakness over the last couple of months. Patient felt her legs go weak last night at home as she was about to turn on the heat. Patient fell down. No head trauma. No chest pain, no SOB, no LOC. Patient does not feel safe being home from falling. SBP 180s upon EMS arrival. Medical History as above Surgical History : Cataract surgery eardrum surgery, cholecystectomy, BTL, back surgery, sinus surgery, tonsillectomy, hysterectomy Family History : COPD, heart disease, lung cancer Personal/Social history : Past tobacco abuse, no EtOH intake, disabled Admission Exam Per Admitting Provider GENERAL: Comfortable, morbidly obese, no respiratory distress SKIN: Normal color, warm HEENT: Bespectacled, pink palpebral conjunctivae, no ptosis, dry buccal mucosa NECK : Supple, short neck, no tenderness CHEST : CTA, no tenderness HEART : RRR, no obvious murmurs ABDOMEN: Some distention, nontender EXTREMITIES : Bilateral LE swelling without tenderness, no other conspicuous deformities noted NEUROLOGIC : Coherent, no facial asymmetry, MMTS BUE/BLE 4/5, gait and stance not assessed Discharge Exam Constitutional WD/WN, vitals as above Respiratory normal respiratory effort, lungs clear to auscultation Cardiovascular RRR, no murmur, no edema Gastrointestinal (Abdomen) normal bowel sounds, soft, nontender, no hepatosplenomegaly Updated Medication List Medication Instructions Recorded Confirmed Type buspirone 10 mg tablet 10 mg PO TID 06/18/22 06/10/24 History cholecalciferol (vitamin D3) 50 50 mcg PO DAILY 06/18/22 06/10/24 History mcg (2,000 unit) tablet (Vitamin D3) duloxetine 30 mg capsule,delayed 30 mg PO DAILY 06/18/22 06/10/24 History release gabapentin 300 mg capsule 300 mg PO HS 06/18/22 06/10/24 History hydroxychloroquine 200 mg tablet 400 mg PO HS 06/18/22 06/10/24 History lamotrigine 200 mg tablet 200 mg PO BID 06/18/22 06/10/24 History levocetirizine 5 mg tablet 2.5 mg PO PM 06/18/22 06/10/24 History losartan 100 mg tablet 100 mg PO DAILY 06/18/22 06/10/24 History mirtazapine 30 mg tablet 30 mg PO HS 06/18/22 06/10/24 History montelukast 10 mg tablet 10 mg PO HS 06/18/22 06/10/24 History paliperidone 9 mg tablet,extended 9 mg PO HS 06/18/22 06/10/24 History release 24 hr perphenazine 8 mg tablet 8 mg PO DAILY 06/18/22 06/10/24 History potassium chloride 10 mEq 10 meq PO DAILY 06/18/22 06/10/24 History tablet,extended release ropinirole 1 mg tablet 1 mg PO HS 06/18/22 06/10/24 History rosuvastatin 5 mg tablet 5 mg PO HS 06/18/22 06/10/24 History sertraline 100 mg tablet 125 mg PO DAILY 06/18/22 06/10/24 History sotalol 80 mg tablet 40 mg PO BID 06/18/22 06/10/24 History omeprazole 40 mg capsule,delayed 40 mg PO BID #60 caps 06/22/22 06/10/24 Rx release hydrochlorothiazide 12.5 mg capsule 12.5 mg PO DAILY 06/10/24 06/10/24 History levothyroxine 200 mcg tablet 200 mcg PO DAILY 06/10/24 06/10/24 History amlodipine 5 mg tablet (Norvasc) 5 mg PO BID #0 tabs 06/12/24 Rx fluticasone furoate 50 1 inh inhalation DAILY #60 ea 06/12/24 Rx mcg-vilanterol 25 mcg/dose inhalation powder (Breo Ellipta) hydralazine 25 mg tablet 75 mg (3 x 25 mg) PO TID #0 tabs 06/12/24 Rx melatonin 3 mg tablet 9 mg (3 x 3 mg) PO HS #0 tabs 06/12/24 Rx spironolactone 25 mg tablet 25 mg PO QAM #0 tabs 06/12/24 Rx tizanidine 4 mg tablet 4 mg PO HS PRN #0 tabs 06/12/24 Rx Hospital Stay Data Consultations 06/10/24 04:46 ED Decision to Admit Stat Diagnostic Imagining Performed 06/10/24 02:27 CT head/brain wo con Stat Pending Results Patient Have Any Pending Studies at Discharge: No Discharge Instructions Given to Patient (Per Discharging Provider) You were admitted for fall at home and high blood pressure. The following medications were changed: -Increased Hydralazine 75mg three times a day -Discontinued carvedilol due to low heart rate -Added amlodipine 5mg two times a day -Added Spironolactone 25mg daily Youll continue all your home medications as prescribed previously Youll continue your breo inhaler in the mornings You will be transferred to rehab to work on safety at home Total Time Total Time Spent Total Time Spent (In Minutes): 45
== END 2024-06-12 15:00 ==
LOC: 2N 02:23 → ED 02:23 → 2N 06:41

== ENCOUNTER 2024-07-16 09:45 | Inpatient (IN) ==
--- NOTE | 2024-07-16 11:16 | Emergency Department Note ---
Impression & Plan Suicidal ideation ED Provider Note NAME: YISEL MCGEE AGE: 59 SEX: F : 1965 ARRIVES VIA: Ambulance INFORMANT: [Patient] ED PROVIDER(S): [Gurinder Wyman MD] CHIEF COMPLAINT: Mental health evaluation HISTORY OF PRESENT ILLNESS: The patient is a 59-year-old female who states that 4 days ago, she overdosed on a handful of different pills. She slept all day but never lost consciousness and really did not notice any difficulty. She still feels suicidal and presents today for evaluation asking for a psychiatric admission. She believes she requires inpatient care. The patient states that she is depressed because of her living situation. She has bedbugs and she cannot seem to get rid of them. She feels that she is receiving no help. She has felt depressed and suicidal for about a month. PMHx/PSHx/Social Hx: See Below PHYSICAL EXAM: GENERAL: Patient is in no acute distress. HEENT: No acute trauma, normocephalic atraumatic, mucous membranes moist, no nasal congestion. NECK: No stridor, no adenopathy, no meningismus, trachea is midline. LUNGS: Clear to auscultation bilaterally, no wheeze, no rhonchi, breath sounds equal. HEART: Without murmurs gallops or rubs, regular rate and rhythm. ABDOMEN: Soft, nontender, no peritonitis. Obese EXTREMITIES: No cyanosis, full range of motion of all the joints without pain or difficulty. Moderate bilateral pedal edema. NEUROLOGIC: Oriented x 3, no acute motor or sensory deficits, no focal weakness. SKIN: No jaundice, no diaphoresis. Psychiatric: Somewhat flattened affect. Cooperative, voluntary, admits to suicidal ideation with a plan to overdose. DIFFERENTIAL DIAGNOSIS: Suicidality, electrolyte imbalance, thyroid disorder, depression, among others. EMERGENCY DEPARTMENT PROCEDURES: MEDICAL DECISION MAKING: There is no leukocytosis or concerning anemia. There is a normal platelet count. Potassium slightly low but not in need of emergent correction. There is no renal failure. No concerning liver enzyme elevation. TSH was slightly high however, the T4 was normal. Urinalysis did not show findings of infection. Aspirin, Tylenol and alcohol levels were undetectable. Urine tox was negative. COVID test was negative. On exam, patient complained of feeling suicidal. She was cooperative and voluntary. The patient was felt medically clear. The patient was seen by psychiatry case management. A bed search is currently underway. The patient was given oral hydroxyzine and oral Ativan to help with her anxiety. The patient is to be hospitalized voluntarily, she is suicidal and attempted an overdose a few days ago. At this point in her ED course, the case is being assumed by Dr. Varela at the change of shift. We are waiting to hear back from the psychiatric facilities. Prior/Outside records/notes reviewed: None Imaging/x-ray results per my interpretation: Chronic Medical/Social conditions affecting care: History of previous suicidality. Care/Management discussed with: Psychiatry case management. Level of care consideration(s): After review of the information above and other included data: -- Patient is in need of psychiatric hospitalization voluntarily. DISPOSITION: Still a patient in the ED. Past Med/Surg History Problem List (Updated 07/16/24 @ 17:17 by Gurinder Wyman MD) Suicidal ideation (Acute) Asymptomatic hypertensive urgency Fall (Acute) Symptomatic anemia (Acute) Dyspnea on minimal exertion (Acute) Encounter for pre-operative examination Hyponatremia NATY (acute kidney injury) SEEMA (iron deficiency anemia) (Acute) Anemia (Acute) RLS (restless legs syndrome) MAURO (obstructive sleep apnea) Chronic diastolic (congestive) heart failure Positive SOFIA (antinuclear antibody) Dyslipidemia Hypertension History of iron deficiency anemia (Acute) Bipolar I disorder (Chronic 01/14/13) Intractable vomiting with nausea (Acute) Severe hypertension (Acute) Morbid obesity Chronic back pain High catecholamines Sacroiliac joint pain Lumbar post-laminectomy syndrome Lumbar pain with radiation down both legs Schizoaffective disorder Asthma rare res inh use Paroxysmal A-fib follows with Eduardo Gonsalez > [facility] Medical History Dyspnea Anxiety and depression Admitted to intensive care unit DVT prophylaxis Nausea and vomiting Hypertensive emergency Morbid obesity Bipolar 1 disorder Osteoarthritis Fibromyalgia Spinal stenosis Degenerative disc disease Chronic back pain GERD (gastroesophageal reflux disease) Hypothyroidism Migraine Seizure SEIZURES X 2 (); CONTROLLED ON LAMICTAL Sleep apnea cpap Epilepsy hx of, last one in IBS (irritable bowel syndrome) Surgical History Nausea and vomiting after administration of anesthetic agent History of cataract surgery RT/LEFT History of total abdominal hysterectomy and bilateral salpingo-oophorectomy S/P foot surgery, left X2 History of carpal tunnel release LEFT Status post lumbar spine surgery for decompression of spinal cord + RODS History of colonoscopy History of cholecystectomy History of tooth extraction ALL UPPER TEETH EXTRACTIONS History of tonsillectomy and adenoidectomy History of endoscopic sinus surgery Family History Father Family history of diabetes mellitus Coronary heart disease Mother Lung cancer Sister Alive and well Brother Alive and well Other No family history of adverse response to anesthesia Social History Smoking Status: Former smoker Tobacco Type: Cigarettes Second Hand Exposure: No; Do You Dip or Chew Tobacco: No; Hx Alcohol Use: No Hx Substance Use: No Preferred Language: Croatian Communication Ability: Effective Visual Impairment: No Limitations 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: Normal 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: No Beliefs That Will Affect Care: None marital status: Current Living Situation: Alone Current Living Situation Comment: Long Term current occupational status: disabled Feels Safe at Home: Yes Gender Identity: Female Assistive Devices: BiPap, Cane, Glasses and Walker Allergies Allergies Allergy/AdvReac Type Severity Reaction Status Date / Time adhesive Allergy Intermediate RASH, ITCHY Verified 06/18/22 21:51 Hydantoins Allergy Intermediate Hives Verified 06/18/22 21:51 ethyl alcohol AdvReac Severe Seizure Verified 06/18/22 21:51 thioridazine AdvReac Severe SEIZURES Verified 06/18/22 21:51 phenytoin AdvReac Intermediate Nausea Verified 06/18/22 21:51 Home Meds Home Medications Medication Instructions Recorded Confirmed duloxetine 30 mg capsule,delayed 30 mg PO DAILY 06/18/22 07/16/24 release gabapentin 300 mg capsule 300 mg PO HS 06/18/22 07/16/24 lamotrigine 200 mg tablet 200 mg PO BID 06/18/22 07/16/24 levocetirizine 5 mg tablet 5 mg PO PM 06/18/22 07/16/24 losartan 100 mg tablet 100 mg PO DAILY 06/18/22 07/16/24 mirtazapine 30 mg tablet 30 mg PO HS 06/18/22 07/16/24 montelukast 10 mg tablet 10 mg PO HS 06/18/22 07/16/24 paliperidone 9 mg tablet,extended 9 mg PO HS 06/18/22 07/16/24 release 24 hr perphenazine 8 mg tablet 8 mg PO HS 06/18/22 07/16/24 potassium chloride 10 mEq 10 meq PO DAILY 06/18/22 07/16/24 tablet,extended release rosuvastatin 5 mg tablet 5 mg PO HS 06/18/22 07/16/24 sertraline 100 mg tablet 200 mg PO DAILY 06/18/22 07/16/24 hydrochlorothiazide 12.5 mg capsule 12.5 mg PO DAILY 06/10/24 07/16/24 levothyroxine 200 mcg tablet 200 mcg PO DAILY 06/10/24 07/16/24 buspirone 15 mg tablet 15 mg PO BID 07/16/24 07/16/24 duloxetine 20 mg capsule,delayed 20 mg PO DAILY 07/16/24 07/16/24 release furosemide 40 mg tablet 40 mg PO BID 07/16/24 07/16/24 mirabegron 50 mg tablet,extended 50 mg PO HS 07/16/24 07/16/24 release 24 hr perphenazine 4 mg tablet 4 mg PO DAILY 07/16/24 07/16/24 Previous Rx's Medication Instructions Recorded fluticasone furoate 50 1 inh inhalation DAILY #60 ea 06/12/24 mcg-vilanterol 25 mcg/dose inhalation powder (Breo Ellipta) Results & Data (ED) Vital Signs Vital Signs - 24 hr 07/16/24 10:29 07/16/24 10:36 07/16/24 11:41 Temperature 36.5 C 36.5 C Temperature Source Oral Oral Pulse Rate 76 Pulse Rate [Right Finger] 76 80 Pulse Rhythm Regular Pulse Rhythm [Right Finger] Regular Regular Pulse Strength Normal Pulse Strength [Right Finger] Normal Respiratory Rate 20 12 20 Respiratory Effort / Characteristics Non-Labored Respiratory Depth Normal Normal Normal Respiratory Pattern Regular Blood Pressure 166/97 H Blood Pressure [Right Arm] 166/97 H 157/88 H Blood Pressure Mean 120 Blood Pressure Mean [Right Arm] 120 111 Blood Pressure Position Lying Pulse Oximetry 96 96 97 Oxygen Delivery Method Room Air Room Air Room Air Sepsis Recent Fever Within 48 Hours No Sepsis New/Unexplained Change in Mental Status N/A Sepsis Action Taken by Nursing No Action Required 07/16/24 16:57 Temperature Temperature Source Pulse Rate Pulse Rate [Right Finger] 74 Pulse Rhythm Pulse Rhythm [Right Finger] Pulse Strength Pulse Strength [Right Finger] Respiratory Rate 20 Respiratory Effort / Characteristics Non-Labored Respiratory Depth Normal Respiratory Pattern Blood Pressure Blood Pressure [Right Arm] 133/77 Blood Pressure Mean Blood Pressure Mean [Right Arm] 95 Blood Pressure Position Pulse Oximetry 92 Oxygen Delivery Method Room Air Sepsis Recent Fever Within 48 Hours Sepsis New/Unexplained Change in Mental Status Sepsis Action Taken by Group Home Medications Current Medication List: was personally reviewed by me Laboratory Data Attestation: I reviewed the patient's lab results. 07/16/24 10:27 07/16/24 10:27 Lab Results 07/16/24 07/16/24 07/16/24 Range/Units 10:27 11:00 Unknown WBC 7.89 (4.8-10.8) K/ul RBC 4.30 (4.20-5.40) M/uL Hgb 12.8 (12.0-16.0) g/dl Hct 40.2 (37.0-47.0) % MCV 93.5 (80.0-100.0) fL MCH 29.8 (25.0-34.0) pg MCHC 31.8 L (32.0-36.0) g/dL RDW Std Deviation 47.0 H (36.4-46.3) fL RDW Coeff of Lor 13.9 (11.5-14.5) % Plt Count 200 (130-400) K/uL MPV 12.2 (9.4-12.4) fL Immature Gran % (Auto) 0.3 % Neut % (Auto) 78.7 % Lymph % (Auto) 10.4 % [place] % (Auto) 9.0 % Eos % (Auto) 1.0 % Baso % (Auto) 0.6 % Neut # (Auto) 6.21 (1.40-6.50) K/uL Lymph # (Auto) 0.82 L (1.20-3.40) K/uL [place] # (Auto) 0.71 H (0.11-0.59) K/uL Eos # (Auto) 0.08 (0.00-0.50) K/uL Baso # (Auto) 0.05 (0.00-0.20) K/uL Immature Gran # (Auto) 0.02 (0.01-0.20) K/uL Sodium 138 (136-145) mmol/L Potassium 3.4 L (3.5-5.1) mmol/L Chloride 96 L (98-107) mmol/L Carbon Dioxide 34 H (21-32) mmol/L Anion Gap 8 (3-11) BUN 10 (6-23) mg/dl Creatinine 0.65 (0.6-1.2) mg/dl Est Cr Clr Drug Dosing 130.1 ml/min eGFR 100.11 BUN/Creatinine Ratio 15.4 (10-20) Glucose 85 (70-99(Fasting)) mg/dl Calcium 10.2 (8.6-10.3) mg/dl Total Bilirubin 0.5 (0.2-1.0) mg/dl AST 20 (13-39) U/L ALT 17 (7-52) U/L Alkaline Phosphatase 99 (34-104) U/L Total Protein 7.9 (6.0-8.3) gm/dl Albumin 4.2 (3.4-5.0) gm/dl Globulin 3.7 (2.5-4.0) gm/dl Albumin/Globulin Ratio 1.1 (0.9-2) TSH 7.083 H (0.300-4.500) uIu/ml Free T4 1.15 (0.61-1.60) ng/dl Urine Color Yellow Urine Appearance Clear (Clear) Urine pH 6.0 (4.5-7.5) Ur Specific [place] 1.005 (1.000-1.030) Urine Protein Negative (Negative) Urine Glucose (UA) Negative (Negative) Urine Ketones Negative (Negative) Urine Blood Negative (Negative) Urine Nitrite Negative (Negative) Urine Bilirubin Negative (Negative) Urine Urobilinogen Negative (Negative) Ur Leukocyte Esterase Trace H (Negative) Urine WBC (Auto) 0-5 (0-5) /hpf Urine RBC (Auto) 0-2 (0-2) /hpf U Hyaline Cast (Auto) 0-2 (0-2) /lpf U Epithel Cells (Auto) 0-2 (0-2) /hpf Urine Bacteria (Auto) None Seen (None Seen) Salicylates < 3.0 L (3.0-30) mg/dl Urine Opiates Screen Neg (Neg) Ur Methadone, Qual Neg (Neg) Urine Fentanyl Screen Neg (Neg) Acetaminophen < 3 L (10-30) ug/ml Urine Barbiturates Neg (Neg) Ur Phencyclidine (PCP) Neg (Neg) U Amphetamin/Meth Scrn Neg (Neg) MDMA (Ecstasy) Screen Neg (Neg) U Benzodiazepines Scrn Neg (Neg) Ur Cocaine Metabolite Neg (Neg) U Marijuana (THC) Screen Neg (Neg) Ethyl Alcohol mg/dL < 10.0 (<10.0) mg/dl SARS-CoV-2, RNA, NAAT NEGATIVE (NEGATIVE) Administered Medications Discontinued Medications Hydroxyzine HCl (Hydroxyzine Hcl 25 Mg Tab) 25 mg PO NOW STA Stop: 07/16/24 15:20 Last Admin: 07/16/24 15:24 Dose: 25 mg Documented By: VIET Lorazepam (Lorazepam 1 Mg Tab) 1 mg SL NOW STA Stop: 07/16/24 15:20 Last Admin: 07/16/24 15:24 Dose: 1 mg Documented By: VIET Discharge Plan Visit Data Chief Complaint: Mental Health Evaluation Stated Complaint: [facility] ED Provider: Gurinder Wyman Discharge Problem: Suicidal ideation Patient Disposition: Still a Patient Condition: Good Forms Stand Alone Forms: My [facility], Suicide Prevention Resources Prescriptions Prescriptions: No Action lamotrigine 200 mg tablet 200 mg PO BID sertraline 100 mg tablet 200 mg PO DAILY potassium chloride 10 mEq tablet extended release 10 meq PO DAILY mirtazapine 30 mg tablet 30 mg PO HS gabapentin 300 mg capsule 300 mg PO HS montelukast 10 mg Tablet 10 mg PO HS perphenazine 8 mg tablet 8 mg PO HS losartan 100 mg tablet 100 mg PO DAILY rosuvastatin 5 mg tablet 5 mg PO HS duloxetine 30 mg capsule,delayed release(DR/EC) 30 mg PO DAILY paliperidone 9 mg Tablet Extended Release 24 Hr 9 mg PO HS levocetirizine 5 mg Tablet 5 mg PO PM levothyroxine 200 mcg tablet 200 mcg PO DAILY hydrochlorothiazide 12.5 mg capsule 12.5 mg PO DAILY Breo Ellipta 50-25 mcg/dose blister with device 1 inh inhalation DAILY Qty: 60 0RF furosemide 40 mg tablet 40 mg PO BID perphenazine 4 mg tablet 4 mg PO DAILY buspirone 15 mg tablet 15 mg PO BID duloxetine 20 mg capsule,delayed release(DR/EC) 20 mg PO DAILY mirabegron 50 mg tablet extended release 24 hr 50 mg PO HS Referrals Referrals: Brian Salas DO [Primary Care Provider] -
[2024-07-16 11:39] LABS: Basophils # (auto) 0.05 K/uL (0.00-0.20); Basophils % (auto) 0.6 %; Eosinophils # (auto) 0.08 K/uL (0.00-0.50); Hematocrit (blood only) 40.2 % (37.0-47.0); Hemoglobin 12.8 g/dl (12.0-16.0); Immature Granulocytes # (auto) 0.02 K/uL (0.01-0.20); Immature Granulocytes % (auto) 0.3 %; Lymphocytes # (auto) 0.82 K/uL (1.20-3.40); Lymphocytes % (auto) 10.4 %; Mean Corpuscular Hemoglobin 29.8 pg (25.0-34.0); Mean Corpuscular Hgb Conc 31.8 g/dL (32.0-36.0); Mean Corpuscular Volume 93.5 fL (80.0-100.0); Mean Platelet Volume 12.2 fL (9.4-12.4); Monocytes # (auto) 0.71 K/uL (0.11-0.59); Neutrophils # (auto) 6.21 K/uL (1.40-6.50); Neutrophils % (auto) 78.7 %; Platelet Count 200 K/uL (130-400); RDW Coefficient of Variation 13.9 % (11.5-14.5); White Blood Count 7.89 K/ul (4.8-10.8)
[2024-07-16 11:44] LABS: Albumin Globulin Ratio 1.1 (0.9-2); Albumin Level 4.2 gm/dl (3.4-5.0); BUN Creatinine Ratio 15.4 (10-20); Bilirubin,Total 0.5 mg/dl (0.2-1.0); Calcium 10.2 mg/dl (8.6-10.3); Creatinine Clr Calc Pharmacy 130.1 ml/min; Globulin 3.7 gm/dl (2.5-4.0); Potassium 3.4 mmol/L (3.5-5.1); Total Protein 7.9 gm/dl (6.0-8.3)
[2024-07-16 11:46] LABS: Appearance Urine Clear (Clear); Bacteria Urine Automated None Seen (None Seen); Bilirubin Urine Negative (Negative); Blood Urine Negative (Negative); Cast Urine Automated 0-2 /lpf (0-2); Color Urine Yellow; Epithelial Cell Urine Auto 0-2 /hpf (0-2); Glucose Urine UA Negative (Negative); Ketones Urine Negative (Negative); Leukocyte Esterase Urine Trace (Negative); Nitrite Urine Negative (Negative); Protein Urine Negative (Negative); RBC Urine Automated 0-2 /hpf (0-2); Specific Gravity Urine 1.005 (1.000-1.030); Urobilinogen Urine Negative (Negative); WBC Urine Automated 0-5 /hpf (0-5)
[2024-07-16 11:52] LABS: Acetaminophen < 3 ug/ml (10-30); Salicylate < 3.0 mg/dl (3.0-30)
[2024-07-16 11:59] LABS: Thyroid Stimulating Hormone 7.083 uIu/ml (0.300-4.500)
[2024-07-16 12:05] LABS: Amphetamines+Metham, Urine Neg (Neg); Barbiturates, Urine Neg (Neg); Benzodiazepine, Urine Neg (Neg); Cocaine, Urine Neg (Neg); Fentanyl, Urine Neg (Neg); MDMA (Ecstacy), Urine Neg (Neg); Marijuana, Urine Neg (Neg); Methadone, Urine Neg (Neg); Opiate, Urine Neg (Neg); Phencyclidine, Urine Neg (Neg)
[2024-07-16 12:40] LABS: T4 Free Thyroxine 1.15 ng/dl (0.61-1.60)
--- OUTSIDE RECORDS SUMMARY | 2024-07-16 13:16 | External Medical Summary | Summary of Care ---
Author Name Unknown Organization [facility] Address [address] [place] [address] Phone [phone] Care Team Providers Care Furnace Combustion Tester Name Role Phone AramisBrian self Jasson PRATHER Primary Care Provider [phone] Encounter Details Date Type Department Care Team (Late st Contact Info) Description 06/29/2024 8:50 AM EST Home Visit Care Coordination and Integration [address] [place] [address] Candice Muhammad, Community Health Beauty Consultant [address], [place] [id number] Allergies Active Allergy Reactions Criticality Noted Date [...] as of this encounter (statuses as of 06/29/2024) Medications lamoTRIgine (LAMICTAL) 200 MG TabletIndications:S chizoaffective disorder, chronic condition (HCC) TAKE 1 TABLET BY MOUTH TWICE DAILY MOOD DISORDER 180 Tab 1 02/24/20 18 Active Vitamin B-2 100 MG Oral Tablet (vitamin B-2) TAKE 4 TABLETS (400MG) BY MOUTH DAILY 112 Tab 4 05/29/20 20 Active Additional Information Patient not taking.Informant: Patient, Reported on 06/27/2024 Mirtazapine 30 MG Oral Tablet (REMERON) TAKE [...] Oral Tablet Extended Release 24 Hour Take 1 Tablet by mouth daily. Active Vitamin D3 50 MCG (2000 UT) Oral Capsule Take by mouth 1 Capsule in the morning. 30 Capsule 5 11/14/19 22 Active Additional Information Patient not taking.Informant: Patient, Reported on 06/27/2024 BiPAP every night at bedtime . Active Vitron-C 65-125 MG Oral Tablet (Iron-Vitamin C) Take by mouth 1 Tablet in the morning AND 1 Tablet before bedtime. 180 Tablet 3 03/05/20 22 Active Additional Information Patient not taking.Informant: Patient, Reported on 06/27/2024 busPIRone HCl 10 MG Oral Tablet (Buspar) Take 1 Tablet by mouth daily. 06/04/20 22 Active Perphenazine 8 MG Oral Tablet 06/04/20 22 Active Ventolin HFA 108 (90 Base) MCG/ACT Inhalation Aerosol Solution INHALE 2 PUFFS BY MOUTH EVERY FOUR HOURS NEEDED FOR WHEEZING 18 g 5 09/16/19 23 Active Additional Information Patient not taking.Informant: Patient, Reported on 06/27/2024 Pantoprazole Sodium 40 MG Oral Tablet Delayed Release (Protonix) Take 1 Tablet by mouth in the morning. 90 Tablet 3 12/14/19 23 Active Additional Information Patient not taking.Informant: Patient, Reported on 06/27/2024 Levocetirizine Dihydrochloride 5 MG Oral Tablet (Xyzal Allergy 24HR)Indications:Mi xed rhinitis Take 1 Tablet by mouth every evening. 30 Tablet 11 03/08/20 23 Active Additional Information Patient taking differently: 2.5 mgOral QPM-1999, Reported on 06/27/2024 Paliperidone ER 6 MG Oral Tablet Extended Release 24 Hour (Invega) Take 1 Tablet by mouth in the morning. 06/30/20 Active Perphenazine 2 MG Oral Tablet (Trilafon) Take 2 Tablets by mouth once. 06/30/20 Active Triamcinolone Acetonide 55 MCG/ACT Nasal Aerosol (Nasacort Allergy 24HR)Indications:Al lergic rhinitis, unspecified seasonality, unspecified trigger Administer 2 Sprays into nostril in the morning. 16.9 mL 5 07/05/20 Active Additional Information Patient not taking.Reported on 06/27/2024 Triamcinolone Acetonide 0.5 % External Cream (Aristocort)Indicat ions:Intrinsic eczema APPLY TOPICALLY TO AFFECTED AREA TWICE A DAY FOR 14 DAYS 45 g 1 08/04/19 24 Active Hydroxychloroquine Sulfate 200 MG Oral Tablet (Plaquenil) TAKE 2 TABLETS BY MOUTH EVERY NIGHT AT BEDTIME 56 Tablet 2 08/29/19 24 Active hydroCHLOROthiazide 12.5 MG Oral Capsule (Hydrodiuril)Indica tions:HTN, goal below 140/90,Shortness of breath TAKE 1 CAPSULE BY MOUTH EVERY MORNING 90 Capsule 3 09/23/19 24 Active Sotalol HCl 80 MG Oral Tablet (Betapace)Indicatio ns:PAF (paroxysmal atrial 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) (HCC) TAKE 1/2 TABLET BY MOUTH TWICE A DAY *HOLD FOR HEART RATE LESS THAN 60 OR SYSTOLIC BLOOD PRESSURE LESS THAN 100 &NOTIFY SERVICE IF DOSE 28 Tablet 8 11/16/19 24 Active Montelukast Sodium 10 MG Oral Tablet (Singulair)Indicati ons:Mixed rhinitis,Moderate persistent asthma without complication Take 1 Tablet by mouth at bedtime. 30 Tablet 6 01/11/20 24 Active Potassium Chloride ER 10 MEQ Oral Tablet Extended ReleaseIndications: HTN, goal below 140/90,PAF (paroxysmal atrial 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) (HCC),ROSALES (dyspnea on exertion) TAKE 1 TABLET BY MOUTH DAILY 90 Tablet 1 02/29/20 24 Active Additional Information Patient not taking.Reported on 06/27/2024 Breo Ellipta 200-25 MCG/ACT Inhalation Aerosol Powder Breath Activated (fluticasone furoate-vilanterol) Indications:Moderat e persistent asthma without complication INHALE 1 PUFF BY MOUTH DAILY 60 Each 5 03/26/20 24 Active Losartan Potassium 100 MG Oral Tablet (Cozaar) TAKE 1 TABLET BY MOUTH DAILY 90 Tablet 1 04/05/20 24 Active tiZANidine HCl 4 MG Oral Tablet (Zanaflex)Indicatio ns:Acute pain of left shoulder TAKE 1 TABLET BY MOUTH EVERY 8 HOURS NEEDED FOR MUSCLE SPASMS 30 Tablet 5 04/09/20 24 Active Mirabegron ER 50 MG Oral Tablet Extended Release 24 Hour (Myrbetriq) Take 1 Tablet by mouth every evening. 90 Tablet 3 05/03/20 24 Active Additional Information Patient not taking.Reported on 06/27/2024 Rosuvastatin Calcium 5 MG Oral Tablet (Crestor)Indication s:Dyslipidemia, goal LDL below 130 TAKE 1 TABLET BY MOUTH DAILY 90 Tablet 05/07/20 24 Active Levothyroxine Sodium 200 MCG Oral Tablet (Levoxyl) Take 1 Tablet by mouth in the morning. (at least 30 min prior to breakfast or other meds). 90 Tablet 3 05/18/20 24 Active busPIRone HCl 15 MG Oral Tablet (Buspar) Take 1 Tablet by mouth daily. Active DULoxetine HCl 20 MG Oral Capsule Delayed Release Particles (duloxetine) Take 30 mg by mouth in the morning. Active Spironolactone 25 MG Oral Tablet (Aldactone)Indicati ons:HTN, goal below 130/80,Chronic diastolic heart failure (HCC) Take 1 Tablet by mouth in the morning. 90 Tablet 3 06/22/20 24 Active amLODIPine Besylate 5 MG Oral Tablet (Norvasc) Take 1 Tablet by mouth 2 times a day. 60 Tablet 11 06/27/20 24 Active hydrALAZINE HCl 25 MG Oral Tablet (Apresoline) Take 3 Tablets by mouth in the morning and 3 Tablets at noon and 3 Tablets before bedtime. 270 Tablet 11 06/27/20 24 Active documented as of this encounter (statuses as of 06/29/2024) Active Problems Problem Noted Date Diagnosed Date DNR (do not resuscitate) 06/27/2024 POLST (Physician Orders for Life-Sustaining Kylie tment) 06/27/2024 Heart failure, diastolic, with acute decompensat ion 09/05/2023 PAF (paroxysmal atrial 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) 09/05/2023 Schizoaffective disorder, depressive type 2022 Sjogren syndrome, unspecified 04/26/2023 Recurrent major depressive disorder 04/26/2023 Dyslipidemia 01/15/2023 Chronic diastolic heart failure 06/09/2022 Antiphospholipid syndrome 12/21/2021 Restless leg syndrome 06/24/2021 Iron deficiency anemia due to chronic blood loss 06/24/2021 Pulmonary hypertension 01/23/2021 Schizoaffective disorder, bipolar type Morbid obesity 11/05/2020 Major depressive disorder, single episode, unspe cified [...] lumbar 02/08/20 14 Obstructive sleep apnea 11/09/2010 Overview (05/02/2017): 07/2011 -- Refusing O2 or CPAP. Purchased CPAP 2006, pt threw away, not eligible until 07/2012. ICD-10 update of inactive term HTN, goal below 130/80 09/03/2010 Moderate persistent asthma without complication documented as of this encounter (statuses as of 06/29/2024) Resolved Problems Problem Noted Date Diagnosed Date [...] Per Obesity protocol - Per Obesity protocol Prediabetes 05/12/2020 06/14/2024 Overview: Per Prediabetes protocol Body mass index (BMI) of 40. [...] > 3mm and < 8mm 07/19/2011 03/27/2019 Overview (07/19/2011): RUL f/u CT 09/2011 Adult body mass index 50.0-59.9 05/19/2011 02/16/2012 History of nonadherence to medical treatment 1 09/25/2012 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/31/2010 10/08/19 11 alf current use of ant icoagulant therapy 08/31/2010 05/19/2011 Overview (05/02/2017): ICD-10 update of inactive term Dysfunction of eustachian tube 08/17/2010 05/19/2011 Hypersomnia with sleep apnea 08/17/2010 01/15/2023 OTITIS MEDIA, CHRONIC, LEFT 08/17/2010 05/19/2011 Abnormality of gait 03/24/2010 06/18/20 14 ACTIVE CASE MANAGEMENT Kadie Hernandez [phone] 01/06/20 10 05/18/2010 Overview (05/18/2010): ACTIVE CASE MANAGEMENT Kadie David [phone] Dyslipidemia, goal LDL below 130 09/30/2009 01/15/2023 Esophageal reflux 01/27/2009 01/15/2023 Achilles tendinitis 10/25/2008 10/10/19 11 ADVANCE DIRECTIVE INFORMATION 01/18/2005 09/02/2017 Overview (01/18/2005): No, Advance Directive brochure given to patient. Urge incontinence 05/06/2003 10/09/2010 Fibromyalgia 05/06/2003 11/17/2018 Tobacco use disorder 10/05/2001 011 Chronic migraine 01/15/2023 EPILEPSY;NONCONV,W/O INTRACTABLE 01/15/2023 LUMBAGO 11/10/2007 DEPRESS PSYCHOSIS-UNSPEC Irritable bowel syndrome SCHIZOAFFECTIVE-CHRONIC 07/02 Overview (10/06/2001): Dr Lakia Ruvalcaba is her psychiatrist 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 09/25/19 13 documented as of this encounter (statuses as of 06/29/2024) Immunizations Name Administration Dates Next Due COVID-19 mRNA, LNP-s, No Pre serve, 2-Dose Series (Moderna) 11/03/2020,10/06/2020 COVID-19 mRNA, LNP-s, No Pre serve, 2-Dose Series (Pfizer) 06/08/2021 Covid-19, Mrna, Lnp-s, Pf, B ivalent, 30 Mcg, IM, 12 yrs and above (Pfizer) 05/05/2022 H1N1 2009 Influenza, IM 08/15/2009 Hepatitis B, 20+ yrs 01/16/2014,04/06/2013,03/05 PPD 02/27/2013 Pneumococcal Conjugate Vacci ne, 20-valent ([id number]) 03/05/2022 Pneumococcal Polysaccharide PPV23 (Pneumovax) 03/31/2009 Seasonal Influenza Vac., MDV , IM, 0.5 mL (Fluzone) 2017,09/10/2015,05/10/2014,05/18,05/05/2012,04/20/2011,05/15/2010 ,07/15/2009,05/22/2008,05/24/2007,11/08/2005 Seasonal Influenza Virus Vac cine, Unspecified Formulation [...] Answer Date Recorded PHQ Adult Total Score 1 06/22/2024 Hunger Vital Sign Answer Date Recorded Within the past 12 months, y ou worried that your food would run out before you got the money to buy more. Never true 06/22/20 24 Within the past 12 months, t he food you bought just didn't last and you didn't have money to get more. Never true 06/22/2024 Childcare Answer Date Recorded Do you feel overwhelmed with taking care of a child, family member or friend? No 06/22/2024 Does your family need help f inding childcare? (Household - for ages 0-17 years) Not on file 06/22/2024 Clothing Answer Date Recorded Have you been unable to get clothing when it was really needed? No 06/22/2024 Is your family able to get c lothes or diapers when needed? (Household - for ages 0-17 years) Not on file 06/22/2024 Personal Safety Answer Date Recorded Do you feel unsafe or have concerns for your saf ety? No 06/22/2024 Do you have concerns for you r family's safety? (Household - for ages 0-17 years) Not on file 06/22/2024 Utilities Answer Date Recorded Do you have trouble paying y our heating, water, or electric bill? No 06/22/2024 Is your family able to pay t he heat, water, or electric bill? (Household - for ages 0-17 years) Not on file 06/22/2024 Does your family have access to good internet? (Household - for ages 0-17 years) Not on file 06/22/2024 Employment Status Answer Date Recorded Are you unemployed or without regular income? No 06/22/2024 Does the household have a re lar source of income? (Household - for ages 0-17 years) Not on file 06/22/2024 Social Connections Answer Date Recorded How often do you feel lonely or isolated from those around you? Sometimes 06/22/2024 Financial Resource Strain Answer Date R ecorded Do you have any trouble payi ng for your medications, or do you think you might in the future? No 06/22/2024 Does your family have troubl e paying for medicine? (Household - for ages 0-17 years) Not on file 06/22/2024 Transportation Needs Answer Date Record ed Do you have trouble getting a ride to medical visits or work? (Adult - for ages 18 years and over) Not on file 06/22/2024 Does your family have a hard time getting a ride to doctors visits? (Household - for ages 0-17 years) Not on file 06/22/2024 Has lack of transportation k ept you from medical appointments, meetings, work, or from getting things needed for daily living? Check all that apply. No 06/22/2024 Do you (or your family) have trouble finding or paying for a ride (transportation)? (Household - for ages 0-17 years) Not on file 06/22/2024 Housing Stability Answer Date Recorded Do you currently live in a s helter or have no steady place to sleep at night? No 06/22/2024 Do you think you are at risk of becoming homeless? (Adult - for ages 18 years and over) Not on file 06/22/2024 Does your family worry about paying for your home or becoming homeless? (Household - for ages 0-17 years) Not on file 1 08/22/2023 Are you homeless or worried that you might be in the future? No 06/22/2024 Are you (or your family) elroy eless or worried that you might be in the future? (Household - for ages 0-17 years) Not on file Food Insecurity Answer Date Recorded Do you need food for this week? No 06/22/2024 Are you able to get enough f ood for your family? (Household - for ages 0-17 years) Not on file 06/22/2024 Does your family need food t his week? (Household - for ages 0-17 years) Not on file 06/22/2024 Do you always have enough fo od for your family? (Household - for ages 0-17 years) Not on file 06/22/2024 Comments No Sex and Gender Information Value Date Recorded Sex Assigned at Female 12/20/2018 2:46 PM EDT Legal Sex Female 5:24 AM EST Gender Identity Female 12/20/2018 2:46 PM EDT Sexual Orientation Straight 12/20/2018 2: 46 PM EDT Occupation Industry Job Start Date Job End Date disabled, for psychosis Not on file Not on file Not on file documented as of this encounter Last Filed Vital Signs Vital Sign Reading Time Taken Comments Blood Pressure 120/60 06/29/2024 9:34 AM EST Pulse 65 06/29/2024 9:34 AM EST Temperature 35.9 C (96.6 F) 06/29/2024 9:34 AM ES T Respiratory Rate - - Oxygen Saturation 98% 06/29/2024 9:34 AM EST Inhaled Oxygen Concentration - - Weight - - Height - - Body Mass Index - - documented in this encounter Progress Notes * Candice Muhammad, Community Health Beauty Consultant - 06/29/2024 9:43 AM EST Telemedicine visit: No Community Health Beauty Consultant (LIZETTE) documentation: This CHW initiated home visit today with patient and home care attendant [facility] from [facility] and a friendof patients. This CHW talked with patient about the importance of wearing her safety alert device as much as shecan and suggested wearing it all the time other than when bathing. summer child caregiver Selina said that patient does not wear it she usually just keep the device beside her. This CHW suggested wearing device on patient especially when up and moving around. Patient does not like to wear the device because itis too heavy. This CHW suggested possibly getting another device that would be less heavy and easily for patient to use. Patient has discussed this with her resource recovery specialist however she is not eligible to get a different device since she already got one through her insurance. Patient gets PT/OTonce a week in the home. And has caregiver three times a week, Tuesday, Tuesday and Fridays. Patient baths herself and has no concerns right now with doing this on her own. This CHW completed a safety assessment and saw no safety concerns at this time. This CHW took kylie Muhammad- Community Health Worker 1 [employer] [facility] [employer] Health Plan [email or web address] documented in this encounter Plan of Treatment Upcoming Encounters Date Type Department Care Team (Late st Contact Info) Description 08/02/2024 10:00 AM EST Office Visit Rheumatology [facility] [address] [place] [address] Rui Tee MD [facility] [place] [address] 08/21/2024 8:30 AM EST Office Visit Cardiology, [facility] [address] [place] [address] Griselda Cody CRNP [address] [address] 11/20/2024 10:00 AM EDT Office Visit Family Practice [facility] [address] [place] [address] Brian Salas, DO [address] [facility] [place] [address] 03/12/2025 11:20 AM EDT Office Visit Sleep Disorders Ctr [facility] [address] [place] [phone] Charlette Brannon DO [address] [place] [address] 04/11/2025 8:20 AM EDT Office Visit Pulmonary Medicine, [facility] [address] [place] [address] Yo Abreu MD [address] [place] [address] 05/21/2025 9:25 AM EDT Office Visit Urogynecology [facility] [address] [place] [address] Del Baron MD [address] [place] [address] [facility] [address] [place] [address] Scheduled Procedures Name Priority Associated Diagnoses Date/Ti me COLONOSCOPY FLEXIBLE PROXIMA L DIAGNOSTIC Recall Special screening for malignant neoplasms, colon Health Maintenance Due Date Last Done Comments Cologuard 2008 Fecal Occult Blood Test 2008 Sigmoidoscopy 2008 DTap/Tdap Vaccines (2 - Td or Tdap) 08/19/2021 08/19/2011 COVID-19 Vaccine ( season) 2024 06/19/2023, 05/05/2022, 06/08/2021, Additional history exists Mammogram 04/19/2024 04/19/2023, 04/01, 03/22/2023, Additional history exists TSH 05/15/2025 05/15/2024, 10/30, 12/13/2022, Additional history exists GFR 06/20/2025 06/20/2024, 06/01, 05/15/2024, Additional history exists Depression Monitoring 06/22/2025 06/22/2024 Albumin/Creatinine Ratio 12/13/2025 12/13/2022 Lipid Panel 09/11/2026 09/11/2021, 11/2020, 04/17/2021, Additional history exists Diabetes Screening 06/20/2027 06/20/2024, 1 08/13/2023, 05/15/2024, Additional history exists Colonoscopy 12/04/2031 12/03/2021, 11/2021, [...] filedocumented as of this encounter Care Teams Furnace Combustion Tester Relationship Specialty Start Date End Date Brian Salas DO [address] [place] [address] PCP - General Family Medicine 12/16/15 documented as of this encounter
--- OUTSIDE RECORDS SUMMARY | 2024-07-16 13:16 | External Medical Summary ---
Author Name UNSPECIFIED Address Unknown Organization [facility] History of Encounters Reason for Assessment: Resumption of car e (after inpatient stay) Inpatient discharge facility: Past 14 Da ys: Discharged From Inpatient Rehab Facility Most Recent Inpatient Discharge Date: Functional Assessment Patient Living Situation: Patient Lives Alone: Around the clock When Dyspneic: With moderate exerti on (e.g., while dressing, using commode or bedpan, walking distances less than 20 feet) Bowel Incontinence Frequency: Very rarel y or never has bowel incontinence When Anxious (Reported or Observed): Lisa ly, but not constantly Cognitive and Behavioral and Psychiatric Symptoms: None Current Ability: Bathing: able to partic ipate in bathing self in shower or tub, but requires presence of another person throughout the bath for assistance or supervision. Current Ability: Ambulation: Requires us e of a two-handed device (e.g., walker or crutches) to walk alone on a level surface and/or requires human supervision or assistance to negotiate stairs or steps or uneven surfaces. Current: Management Of Oral Medications: Able to take medication(s) at the correct times if: (a) individual dosages are prepared in advance by another person; OR (b) another person develops a drug diary or chart Current: Management Of Injec table Medications: Able to take injectable medication(s) at the correct times if: (a) individual syringes are prepared in advance by another person; OR (b) another person develops a drug diary or chart. Problems Primary Home Care Diagnosis ICD Code: I1 1.0, Hypertensive heart disease with heart failure Home Care Diagnosis 1: ICD Code: I50.32, Chronic diastolic (congestive) heart failure Home Care Diagnosis 1: Severity Ratin Home Care Diagnosis 2: ICD Code: M51.362 ^ Home Care Diagnosis 2: Severity Ratin Home Care Diagnosis 3: ICD Code: R29.6, Repeated falls Home Care Diagnosis 3: Severity Ratin Home Care Diagnosis 4: ICD Code: J45.40, Moderate persistent asthma, uncomplicated Home Care Diagnosis 4: Severity Ratin Home Care Diagnosis 5: ICD Code: I48.0, Paroxysmal atrial 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 Home Care Diagnosis 5: Severity Ratin
--- OUTSIDE RECORDS SUMMARY | 2024-07-16 13:16 | External Medical Summary | Summary of Care ---
Author Name Unknown Organization [facility] Address [address] [place] [address] Phone [phone] Care Team Providers Care Schedule Maker Name Role Phone AramisBrian self Primary Care Provider [phone] Reason for Visit * Reason Onset Date Comments Appointment 06/22/2024 Encounter Details Date Type Department Care Team (Late st Contact Info) Description 06/22/2024 Seafood Team Member Telephone Care Coordination and Integration [address], [place] [id number] Kristina Silver, LESLIE [address] [place], [place] [id number] Appointment Allergies Active Allergy Reactions Criticality Noted Date [...] as of this encounter (statuses as of 06/27/2024) Medications lamoTRIgine (LAMICTAL) 200 MG TabletIndications: Schizoaffective disorder, chronic condition (HCC) TAKE 1 TABLET BY MOUTH TWICE DAILY MOOD DISORDER 180 Tab 1 018 Active Vitamin B-2 100 MG Oral Tablet (vitamin B-2) TAKE 4 TABLETS (400MG) BY MOUTH DAILY 112 Tab 4 Active Additional Information Patient not taking.Informant: Patient, Reported on 06/27/2024 Mirtazapine 30 MG Oral Tablet (REMERON) TAKE 1 TABLET BY MOUTH EVERYDAY AT BEDTIME 30 Tab 5 Active Melatonin 3 MG Oral CapsuleIndications :Primary insomnia Take 1 Cap by mouth at bedtime. 90 Cap 3 021 Active Gabapentin 300 MG Oral Capsule (Neurontin)Indicat ions:Polyneuropath y in other diseases classified elsewhere ([facility]) Take 1 Cap by mouth at bedtime. 30 Cap 5 021 Active Sertraline HCl 100 MG Oral Tablet (Zoloft)Indication s:Major depressive disorder with single episode, in partial remission ([facility]) Take 1 Tab by mouth daily. 30 Tab 11 Active Systane 0.4-0.3 % Ophthalmic Solution (Polyethyl Glycol-Propyl Glycol) Instill 1 Drop into both eyes as needed for Dry eyes (may use 3- 4 times daily). Active Paliperidone ER 9 MG Oral Tablet Extended Release 24 Hour Take 1 Tablet by mouth daily. Active Vitamin D3 50 MCG (2000 UT) Oral Capsule Take by mouth 1 Capsule in the morning. 30 Capsule 5 022 Active Additional Information Patient not taking.Informant: Patient, Reported on 06/27/2024 BiPAP every night at bedtime . Active Vitron-C 65-125 MG Oral Tablet (Iron-Vitamin C) Take by mouth 1 Tablet in the morning AND 1 Tablet before bedtime. 180 Tablet 3 022 Active Additional Information Patient not taking.Informant: Patient, Reported on 06/27/2024 busPIRone HCl 10 MG Oral Tablet (Buspar) Take 1 Tablet by mouth daily. Active Perphenazine 8 MG Oral Tablet Active Ventolin HFA 108 (90 Base) MCG/ACT Inhalation Aerosol Solution INHALE 2 PUFFS BY MOUTH EVERY FOUR HOURS NEEDED FOR WHEEZING 18 g 5 023 Active Additional Information Patient not taking.Informant: Patient, Reported on 06/27/2024 Pantoprazole Sodium 40 MG Oral Tablet Delayed Release (Protonix) Take 1 Tablet by mouth in the morning. 90 Tablet 3 023 Active Additional Information Patient not taking.Informant: Patient, Reported on 06/27/2024 Levocetirizine Dihydrochloride 5 MG Oral Tablet (Xyzal Allergy 24HR)Indications:M ixed rhinitis Take 1 Tablet by mouth every evening. 30 Tablet 11 023 Active Additional Information Patient taking differently: 2.5 mgOral QPM-1999, Reported on 06/27/2024 Paliperidone ER 6 MG Oral Tablet Extended Release 24 Hour (Invega) Take 1 Tablet by mouth in the morning. Active Perphenazine 2 MG Oral Tablet (Trilafon) Take 2 Tablets by mouth once. Active Triamcinolone Acetonide 55 MCG/ACT Nasal Aerosol (Nasacort Allergy 24HR)Indications:A llergic rhinitis, unspecified seasonality, unspecified trigger Administer 2 Sprays into nostril in the morning. 16.9 mL 5 023 Active Additional Information Patient not taking.Reported on 06/27/2024 Triamcinolone Acetonide 0.5 % External Cream (Aristocort)Indica tions:Intrinsic eczema APPLY TOPICALLY TO AFFECTED AREA TWICE A DAY FOR 14 DAYS 45 g 1 024 Active Hydroxychloroquine Sulfate 200 MG Oral Tablet (Plaquenil) TAKE 2 TABLETS BY MOUTH EVERY NIGHT AT BEDTIME 56 Tablet 2 024 Active hydroCHLOROthiazid e 12.5 MG Oral Capsule (Hydrodiuril)Indic ations:HTN, goal below 140/90,Shortness of breath TAKE 1 CAPSULE BY MOUTH EVERY MORNING 90 Capsule 3 024 Active Sotalol HCl 80 MG Oral Tablet (Betapace)Indicati ons:PAF (paroxysmal atrial 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) (HCC) TAKE 1/2 TABLET BY MOUTH TWICE A DAY *HOLD FOR HEART RATE LESS THAN 60 OR SYSTOLIC BLOOD PRESSURE LESS THAN 100 &NOTIFY SERVICE IF DOSE 28 Tablet 8 024 Active Montelukast Sodium 10 MG Oral Tablet (Singulair)Indicat ions:Mixed rhinitis,Moderate persistent asthma without complication Take 1 Tablet by mouth at bedtime. 30 Tablet 6 024 Active Potassium Chloride ER 10 MEQ Oral Tablet Extended ReleaseIndications :HTN, goal below 140/90,PAF (paroxysmal atrial 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) (HCC),ROSALES (dyspnea on exertion) TAKE 1 TABLET BY MOUTH DAILY 90 Tablet 1 024 Active Additional Information Patient not taking.Reported on 06/27/2024 Breo Ellipta 200-25 MCG/ACT Inhalation Aerosol Powder Breath Activated (fluticasone furoate-vilanterol )Indications:Moder ate persistent asthma without complication INHALE 1 PUFF BY MOUTH DAILY 60 Each 5 024 Active Losartan Potassium 100 MG Oral Tablet (Cozaar) TAKE 1 TABLET BY MOUTH DAILY 90 Tablet 1 024 Active tiZANidine HCl 4 MG Oral Tablet (Zanaflex)Indicati ons:Acute pain of left shoulder TAKE 1 TABLET BY MOUTH EVERY 8 HOURS NEEDED FOR MUSCLE SPASMS 30 Tablet 5 024 Active Mirabegron ER 50 MG Oral Tablet Extended Release 24 Hour (Myrbetriq) Take 1 Tablet by mouth every evening. 90 Tablet 3 024 Active Additional Information Patient not taking.Reported on 06/27/2024 Rosuvastatin Calcium 5 MG Oral Tablet (Crestor)Indicatio ns:Dyslipidemia, goal LDL below 130 TAKE 1 TABLET BY MOUTH DAILY 90 Tablet 024 Active Levothyroxine Sodium 200 MCG Oral Tablet (Levoxyl) Take 1 Tablet by mouth in the morning. (at least 30 min prior to breakfast or other meds). 90 Tablet 3 024 Active busPIRone HCl 15 MG Oral Tablet (Buspar) Take 1 Tablet by mouth daily. Active DULoxetine HCl 20 MG Oral Capsule Delayed Release Particles (duloxetine) Take 30 mg by mouth in the morning. Active Fluticasone Propionate 50 MCG/ACT Nasal Suspension (Flonase) Administer 2 Sprays into each nostril in the morning. 16 g 11 023 2023 Discontinued(M edication List Clean Up) hydrOXYzine HCl 50 MG Oral Tablet Take 1 Tablet by mouth every 6 hours as needed for Itching. 60 Tablet 3 023 2023 Discontinued(M edication List Clean Up) hydrALAZINE HCl 25 MG Oral Tablet (Apresoline) Take 3 Tablets by mouth in the morning and 3 Tablets at noon and 3 Tablets before bedtime. 2023 Discontinued(R efill) amLODIPine Besylate 5 MG Oral Tablet (Norvasc) Take 1 Tablet by mouth 2 times a day. 2023 Discontinued(R efill) Furosemide 40 MG Oral Tablet (Lasix) Take 1 Tablet by mouth in the morning and 1 Tablet before bedtime. 2023 Discontinued documented as of this encounter (statuses as of 06/27/2024) Active Problems Problem Noted Date Diagnosed Date [...] as of this encounter (statuses as of 06/27/2024) Resolved Problems Problem Noted Date Diagnosed Date [...] 1 09/25/2012 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/31/2010 10/08/19 11 [facility] current use of ant icoagulant therapy 08/31/2010 05/19/2011 Overview (05/02/2017): ICD-10 update of inactive term Dysfunction of eustachian tube 08/17/2010 05/19/2011 Hypersomnia with sleep apnea 08/17/2010 01/15/2023 OTITIS MEDIA, CHRONIC, LEFT 08/17/2010 05/19/2011 Abnormality of gait 03/24/2010 06/18/20 14 ACTIVE CASE MANAGEMENT Kadie Hernandez [id number] 01/06/20 10 05/18/2010 Overview (05/18/2010): ACTIVE CASE MANAGEMENT Kadie Hernandez [phone] Dyslipidemia, goal LDL below 130 09/30/2009 01/15/2023 [...] as of this encounter (statuses as of 06/27/2024) Immunizations Name Administration Dates Next Due COVID-19 mRNA, LNP-s, No Pre serve, 2-Dose Series (Moderna) 11/03/2020,10/06/2020 COVID-19 mRNA, LNP-s, No Pre serve, 2-Dose Series (Pfizer) 06/08/2021 Covid-19, Mrna, Lnp-s, Pf, B ivalent, 30 Mcg, IM, 12 yrs and above (Pfizer) 05/05/2022 H1N1 2009 Influenza, IM 08/15/2009 Hepatitis B, 20+ yrs 01/16/2014,04/06/2013,03/05 PPD 02/27/2013 Pneumococcal Conjugate Vacci ne, 20-valent ([id number]) 03/05/2022 Pneumococcal Polysaccharide PPV23 (Pneumovax) 03/31/2009 Seasonal [...] encounter Miscellaneous Notes * Telephone Encounter - Mary Douglass OSA - 06/27/2024 1:43 PM EST Patient had an appointment with PCP on 06/27/24 no further appointment needed at this time. * Telephone Encounter - Kristina Silver RN - 06/22/2024 10:19 AM EST Patient acknowledge having a post discharge appointment with PCP next Tuesday (06/27/2024), however she is unsure if she will have transportation to the appointment as she relies on others for transportation. She states Tuesdays and usually work best for appointments as she does have transportation on these days. Front office staff, please contact patient to reschedule her hospital discharge follow up appointment to a Tuesday or to ensure she has transportation. Thanks, Kristina Silver RN, BSN [employer] Team Member [phone] documented in this encounter Plan of Treatment Upcoming Encounters Date Type Department Care Team (Late st Contact Info) Description 06/29/2024 8:50 AM EST Home Visit Care Coordination and Integration [address] [place] [address] Candice Muhammad, [facility] Tool And Machine Maintainer [address] [place] [address] 08/02/2024 10:00 AM EST Office Visit Rheumatology [facility] [address] [facility] [place] [address] Rui Tee MD [address] [facility] [place] [address] 08/21/2024 8:30 AM EST Office Visit Cardiology, [facility] [address] [place] [address] Griselda Cody CRNP [address] [place] [address] 11/20/2024 10:00 AM EDT Office Visit Family Practice [facility] [place] [address] [place] [address] Brian Salas, [address] [place] [address] 03/12/2025 11:20 AM EDT Office Visit Sleep Disorders Ctr [facility] [address] [place] [id number] Charlette Brannon DO [address] [place] [address] 04/11/2025 8:20 AM EDT Office Visit Pulmonary Medicine, [facility] [address] [place] [address] Yo Abreu MD [address] [place] [address] 05/21/2025 9:25 AM EDT Office Visit Urogynecology [facility] [address] [place] [address] Del Baron MD [address] [place] [address] [facility]urse emelyn [facility] [address] [place], [place] [address] Scheduled Procedures Name Priority Associated Diagnoses Date/Ti [...] 05/15/2024, Additional history exists Colonoscopy 12/04/2031 12/03/2021, 0 [...] filedocumented as of this encounter Care Teams Schedule Maker Relationship Specialty Start Date End Date Brian Salas DO [address] [place] [address] PCP - General Family Medicine 12/16/15 documented as of this encounter
--- OUTSIDE RECORDS SUMMARY | 2024-07-16 13:17 | External Medical Summary | Summary of Care ---
Author Name Unknown Organization [facility] Address [address] [facility] [place] [address] Phone [phone] Care Team Providers Care Material Mixer Name Role Phone Brian Salas DO Primary Care Provider [phone] Reason for Visit * Reason Onset Date Comments Hospital Follow-Up Hospital Follow-Up 06/27/2024 Encounter Details Date Type Department Care Team (Late st Contact Info) Description 06/27/2024 11:00 AM EST Office Visit Family Practice [facility] [place] [address] [facility] [place] [address] Brian Salas DO [address] [facility] [place] [address] Recurrent falls*; Hypertensive urgency; Hospital discharge follow-up; DNR (do not resuscitate); POLST (Physician Orders for Life-Sustaining Treatment) Allergies Active Allergy Reactions Criticality Noted Date [...] 200 MG TabletIndications: Schizoaffective disorder, chronic condition ([facility]) TAKE 1 TABLET BY MOUTH [...] by mouth at bedtime. 90 Cap 3 Active Gabapentin 300 MG Oral Capsule (Neurontin)Indicat ions:Polyneuropath y in other diseases classified elsewhere ([facility]) Take 1 Cap by mouth at bedtime. 30 Cap 5 021 Active Sertraline HCl 100 MG Oral Tablet (Zoloft)Indication s:Major depressive disorder with single episode, in partial remission ([facility]) Take 1 Tab by mouth [...] 1 Tablet before bedtime. 180 Tablet 3 Active Additional Information Patient not taking.Informant: Patient, [...] morning. Active Spironolactone 25 MG Oral Tablet (Aldactone)Indicat ions:HTN, goal below 130/80,Chronic diastolic heart failure (HCC) Take 1 Tablet by mouth in the morning. 90 Tablet 3 024 Active amLODIPine Besylate 5 MG Oral Tablet (Norvasc) Take 1 Tablet by mouth 2 times a day. 60 Tablet 11 024 Active hydrALAZINE HCl 25 MG Oral Tablet (Apresoline) Take 3 Tablets by mouth in the morning and 3 Tablets at noon and 3 Tablets before bedtime. 270 Tablet 11 024 Active Fluticasone Propionate 50 MCG/ACT Nasal Suspension [...] (05/18/2010): ACTIVE CASE MANAGEMENT Kadie Hernandez [phone] [...] PPD 02/27/2013 Pneumococcal Conjugate Vacci ne, 20-valent ([id number]) 03/05/2022 Pneumococcal Polysaccharide PPV23 (Pneumovax) 03/31/2009 Seasonal [...] 06/22/2024 Does the household have a re gular source of income? (Household - for ages [...] No 06/22/2024 Are you (or your family) elory eless or worried that you might be [...] Sign Reading Time Taken Comments Blood Pressure 114/58 06/27/2024 11:07 AM EST Pulse 62 06/27/2024 11:07 AM EST Temperature 36.7 C (98.1 F) 06/27/2024 11:[address] Respiratory Rate 18 06/27/2024 11:07 AM EST Oxygen Saturation 98% 06/27/2024 11:07 AM EST Inhaled Oxygen Concentration - - Weight 125.6 kg (277 lb) 06/27/2024 11:07 AM EST Height - - Body Mass Index 48.3 04/10/2024 8:36 AM EDT documented in this encounter Progress Notes * Brian Salas DO - 06/27/2024 11:12 AM EST Subjective: Sofia Melton is a 59 year old female. Chief Complaint Patient presents with Hospital Follow-Up Hospital Follow-Up HPI: Pt to the hospital from 06/10 to 06/12. She was admitted for asymptomatic hypertensive urgencyafter a fall at home. We have been discussing assisted living in the office recently. Her SBP was in the 180s when EMS got there. In the hospital they discontinued her Coreg and started aldactone andamlodipine. They also increased her hydralazine. They stopped her furosemide. She was sent to [facility] at D/C for rehab. Things were good at [facility]. Still afriad of falling. She thinks about assisted living but is uncertain of how to afford it. We discussed specific pros and cons of assisted living. I gave her many. She is mostly just worriedabout affording it at this point. She is doing well with her new medications. She has a good BP today. She is doing PT at her home now. She talked about becoming a DNR. PMHx, meds, and allergies reviewed Patient Active [...] reflux disease with esophagitis Mild intellectual disabilities Schizoaffective disorder, bipolar type (HCC) Morbid obesity (HCC) Pulmonary hypertension (HCC) Restless leg syndrome Iron deficiency anemia due to chronic blood loss Antiphospholipid syndrome (HCC) Chronic diastolic heart failure (HCC) Dyslipidemia Schizoaffective disorder, depressive type (HCC) Sjogren syndrome, unspecified (HCC) Recurrent major depressive disorder (HCC) Heart failure, diastolic, with acute decompensation ([facility]) PAF (paroxysmal atrial 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) ([facility]) Current Outpatient Medications Medication Sig Dispense Refill lamoTRIgine (LAMICTAL) 200 MG Tablet TAKE 1 TABLET BY MOUTH TWICE DAILY MOOD DISORDER 180 Tab 1 Mirtazapine 30 MG Oral Tablet (REMERON) TAKE [...] Hour Take 1 Tablet by mouth daily. BiPAP every night at bedtime . busPIRone HCl 10 MG Oral Tablet (Buspar) Take 1 Tablet by mouth daily. Perphenazine 8 MG Oral Tablet Triamcinolone Acetonide 0.5 % External Cream (Aristocort) APPLY TOPICALLY TO AFFECTED AREA TWICE A DAY FOR 14 DAYS 45 g 1 Hydroxychloroquine Sulfate 200 MG Oral Tablet (Plaquenil) TAKE 2 TABLETS BY MOUTH EVERY NIGHT AT BEDTIME 56 Tablet 2 hydroCHLOROthiazide 12.5 MG Oral Capsule (Hydrodiuril) TAKE 1 CAPSULE BY MOUTH EVERY MORNING 90 Capsule 3 Sotalol HCl 80 MG Oral Tablet (Betapace) TAKE 1/2 TABLET BY MOUTH TWICE A DAY *HOLD FOR HEART RATE LESS THAN 60 OR SYSTOLIC BLOOD PRESSURE LESS THAN 100 &NOTIFY SERVICE IF DOSE 28 Tablet 8 Montelukast Sodium 10 MG Oral Tablet (Singulair) Take 1 Tablet by mouth at bedtime. 30 Tablet 6 Breo Ellipta 200-25 MCG/ACT Inhalation Aerosol Powder Breath Activated (fluticasone furoate-vilanterol) INHALE 1 PUFF BY MOUTH DAILY 60 Each 5 Losartan Potassium 100 MG Oral Tablet (Cozaar) TAKE 1 TABLET BY MOUTH DAILY 90 Tablet 1 tiZANidine HCl 4 MG Oral Tablet (Zanaflex) TAKE 1 TABLET BY MOUTH EVERY 8 HOURS NEEDED FOR MUSCLE SPASMS 30 Tablet 5 Rosuvastatin Calcium 5 MG Oral Tablet (Crestor) TAKE 1 TABLET BY MOUTH DAILY 90 Tablet 0 Levothyroxine Sodium 200 MCG Oral Tablet (Levoxyl) Take 1 Tablet by mouth in the morning. (at least30 min prior to breakfast or other meds). 90 Tablet 3 hydrALAZINE HCl 25 MG Oral Tablet (Apresoline) Take 3 Tablets by mouth in the morning and 3 Tabletsat noon and 3 Tablets before bedtime. amLODIPine Besylate 5 MG Oral Tablet (Norvasc) Take 1 Tablet by mouth 2 times a day. DULoxetine HCl 20 MG Oral Capsule Delayed Release Particles (duloxetine) Take 30 mg by mouth in themorning. Spironolactone 25 MG Oral Tablet (Aldactone) Take 1 Tablet by mouth in the morning. 90 Tablet 3 Vitamin B-2 100 MG Oral Tablet (vitamin B-2) TAKE 4 TABLETS (400MG) BY MOUTH DAILY (Patient not taking: Reported on 06/27/2024) 112 Tab 4 Vitamin D3 50 MCG (2000 UT) Oral Capsule Take by mouth 1 Capsule in the morning. (Patient not taking: Reported on 06/27/2024) 30 Capsule 5 Vitron-C 65-125 MG Oral Tablet (Iron-Vitamin C) Take by mouth 1 Tablet in the morning AND 1 Tablet before bedtime. (Patient not taking: Reported on 06/27/2024) 180 Tablet 3 Ventolin HFA 108 (90 Base) MCG/ACT Inhalation Aerosol Solution INHALE 2 PUFFS BY MOUTH EVERY FOUR HOURS NEEDED FOR WHEEZING (Patient not taking: Reported on 06/27/2024) 18 g 5 Pantoprazole Sodium 40 MG Oral Tablet Delayed Release (Protonix) Take 1 Tablet by mouth in the morning. (Patient not taking: Reported on 06/27/2024) 90 Tablet 3 Levocetirizine Dihydrochloride 5 MG Oral Tablet (Xyzal Allergy 24HR) Take 1 Tablet by mouth every evening. (Patient taking differently: Take 0.5 Tablets by mouth every evening.) 30 Tablet 11 Paliperidone ER 6 MG Oral Tablet Extended Release 24 Hour (Invega) Take 1 Tablet by mouth in the morning. (Patient not taking: Reported on 06/27/2024) Perphenazine 2 MG Oral Tablet (Trilafon) Take 2 Tablets by mouth once. (Patient not taking: Reported on 06/27/2024) Triamcinolone Acetonide 55 MCG/ACT Nasal Aerosol (Nasacort Allergy 24HR) Administer 2 Sprays into nostril in the morning. (Patient not taking: Reported on 06/27/2024) 16.9 mL 5 Potassium Chloride ER 10 MEQ Oral Tablet Extended Release TAKE 1 TABLET BY MOUTH DAILY (Patient nottaking: Reported on 06/27/2024) 90 Tablet 1 Mirabegron ER 50 MG Oral Tablet Extended Release 24 Hour (Myrbetriq) Take 1 Tablet by mouth every evening. (Patient not taking: Reported on 06/27/2024) 90 Tablet 3 busPIRone HCl 15 MG Oral Tablet (Buspar) Take 1 Tablet by mouth daily. (Patient not taking: Reported on 06/27/2024) Furosemide 40 MG Oral Tablet (Lasix) Take 1 Tablet by mouth in the morning and 1 Tablet before bedtime. (Patient not taking: Reported on 06/27/2024) No current facility-administered medications for this visit. Review of patient's allergies indicates: Allergen Reactions Adhesive Tape Other reaction(s): RASH, ITCHY Alcohol Other reaction(s): Seizure Hydantoins Other reaction(s): Hives, Nausea Phenytoin Other Reaction(s): Itchy rash Thioridazine Other reaction(s): SEIZURES Latex rash Phenytoin Sodium Rash Torsemide ? possible rash on legs and arms Wound Dressing Adhesive Itching and Rash OBJECTIVE: BP 114/58 | Pulse 62 | Temp 98.1 F (36.7 C) (Tympanic) | Resp 18 | Wt 277 lb (125.6 kg) | SpO2 98% | BMI 48.30 kg/m | BSA 2.37 m Estimated body mass index is 48.3 kg/m as calculated from the following: Height as of 04/10/24: 5' 3.5" (1.613 m). Weight as of this encounter: 277 lb (125.6 kg). BP Readings from Last 3 Encounters: 06/27/24 114/58 05/15/24 136/78 04/10/24 128/70 Wt Readings from Last 3 Encounters: 06/27/24 277 lb (125.6 kg) 05/15/24 282 lb 12.8 oz (128.3 kg) 04/10/24 290 lb (131.5 kg) ROS: Negative except for above PHYSICAL EXAM: General: alert, healthy, and no distress Head: Normocephalic, No masses, lesions, tenderness or abnormalities ASSESSMENT/Plan Recurrent falls (Primary) - DISCH MED RECON CUR MED LIS Hypertensive urgency - DISCH MED RECON CUR MED LIS Hospital discharge follow-up - DISCH MED RECON CUR MED LIS DNR (do not resuscitate) POLST (Physician Orders for Life-Sustaining Treatment) Other orders - amLODIPine Besylate 5 MG Oral Tablet (Norvasc); Take 1 Tablet by mouth 2 times a day. - hydrALAZINE HCl 25 MG Oral Tablet (Apresoline); Take 3 Tablets by mouth in the morning and 3 Tablets at noon and 3 Tablets before bedtime. I spent a total of 45 minutes on the date of service in preparation, delivery, and documentation ofthe care provided to this patient, excluding any time spent on the performance of any procedure or separately billable services. We filled out a POLST and [id number] DNR. She knows to put these on her Fridge. Case discussedwith CM. Consider Assisted living and looking into if she can get some of it covered considering her disability. The above was discussed and understanding was expressed. Brian Salas DO documented in this encounter Nursing Notes * Susanne Delvalle NA - 06/27/2024 10:56 AM EST Sofia Roche Linh presents for hospital and rehab follow up. Facility: [facility] Admit Date: 06/10/24 Discharge Date: 06/12/2024 Dx: fall; asymptomatic hypertensive urgency Were any tests done: CT head/brain wo con Discharged to [facility]. Discharge 06/21/24 Patient states she has been feeling ok since being home. Patient feels safe at home. Reports she has been moving ok. Reports she still has fears of falling again. States she has been instructed to use her walker inside her apartment rather than just when she's out. Denies any new concerns at this time. Patient states she needs DNR paperwork at this time. Medications & HM reviewed. documented in this encounter Plan of Treatment Upcoming Encounters Date Type Department Care Team (Late st Contact Info) Description 06/29/2024 8:50 AM EST Home Visit Care Coordination and Integration [address] [place] [address] Candice Muhammad, Community Health Vtc Technician [address] [place] [address] 08/02/2024 10:00 AM EST Office Visit Rheumatology [place] [phone] [facility] [place] [address] uRi Tee MD [facility] [place] [address] 08/21/2024 8:30 AM EST Office Visit [facility], [facility] [address] [facility] [address] Griselda Cody CRNP [address] [facility] [address] 11/20/2024 10:00 AM EDT Office Visit Family Practice [facility] [address] [place] [address] Brian Salas, DO [address] [facility] [place] [address] 03/12/2025 11:20 AM EDT Office Visit [facility] Disorders [facility] [address] [facility] [place] [id number] BrannonCharlette serrano DO [address] [place] [address] 04/11/2025 8:20 AM EDT Office Visit Pulmonary Medicine, [facility] [address] [place] [address] Yo Abreu MD [address] [facility] [place] [address] 05/21/2025 9:25 AM EDT Office Visit Urogynecology [facility] [address] [place] [address] Del Baron MD [address] [place] [address] [facility] [address] [place] [address] Scheduled Procedures Name Priority Associated Diagnoses Date/Ti [...] 09/11/2021, 11/0 11/2020, 04/17/2021, Additional history exists Diabetes Screening 06/20/2027 06/20/2024, 1 08/13/2023, 05/15/2024, Additional history exists Colonoscopy 12/04/2031 12/03/2021, 05/0 [...] as of this encounter Visit Diagnoses Diagnosis Recurrent falls- Primary Personal history of fall Hypertensive urgency Unspecified essential hypertension Hospital discharge follow-up Other follow-up examination DNR (do not resuscitate) Do not resuscitate status POLST (Physician Orders for Life-Sustaining Treatment) documented in this encounter Care Teams Material Mixer Relationship Specialty Start Date End Date Brian Salas DO [address] [place] [address] PCP - General Family Medicine 12/16/15 documented as of this encounter
--- OUTSIDE RECORDS SUMMARY | 2024-07-16 13:17 | External Medical Summary ---
Author Name Unknown Address Unknown Organization K09[facility] [place] [address] Laboratory Report Ordering Provider Test Date Status MARY JANE PEARCE 06/13/2024 05:47:01 Final Observation Date Value Abnormality Reference (Units ) Status WBC, Total 06/13/2024 05:47:01 8.16 4.00-10.8 0 (K/uL) Final RBC 06/13/2024 05:47:01 4.18 3.85-5.15 (M/uL) Final Hemoglobin 06/13/2024 05:47:01 12.7 12.0-15.3 (g/dL) Final HCT 06/13/2024 05:47:01 39.2 36.0-45.2 (%) Final MCV 06/13/2024 05:47:01 93.8 81.5-97.5 (fL) Final MCH 06/13/2024 05:47:01 30.4 27.0-34.0 (pg) Final MCHC 06/13/2024 05:47:01 32.4 32.0-36.0 (g/dL) Final RDW 06/13/2024 05:47:01 13.8 11.5-15.5 (%) Final Platelets 06/13/2024 05:47:01 156 140-400 (K /uL) Final MPV 06/13/2024 05:47:01 12.4 6.6-11.1 ( fL) Final Performing Location [facility] [place] [address]
--- OUTSIDE RECORDS SUMMARY | 2024-07-16 13:17 | External Medical Summary ---
Author Name UNSPECIFIED Address Unknown Organization [facility] History of Encounters Reason for Assessment: Transferred to an inpatient facility - patient not discharged from agency Inpatient Facility where the patient been admitted: Hospital
--- OUTSIDE RECORDS SUMMARY | 2024-07-16 13:17 | External Medical Summary ---
Author Name Unknown Address Unknown Organization [facility] [place] [address] Laboratory Report Ordering Provider Test Date Status MARY JANE PEARCE 06/13/2024 05:47:01 Final Observation Date Value Abnormality Reference (Units ) Status BUN 06/13/2024 05:47:01 12 6-20 (mg/dL) Final Creatinine 06/13/2024 05:47:01 0.8 0.5-1.0 (mg/dL) Final Glomerular filtration rate/1.73 sq M.predicted [Volume Rate/Area] in Serum, Plasma or Blood by Creatinine-based formula (CKD-EPI) 06/13/2024 05:47:01 80 >=60 (mL/min) Final eGFR is calculated based on the CKD-EPI 2020 equation. Sodium 06/13/2024 05:47:01 136 135-146 (m mol/L) Final Potassium 06/13/2024 05:47:01 4.0 3.5-5.1 (m mol/L) Final Cl 06/13/2024 05:47:01 94 Below low normal 98- 107 (mmol/L) Final CO2 06/13/2024 05:47:01 31 22-32 (mmo l/L) Final Anion gap 06/13/2024 05:47:01 11 7-15 (mmol /L) Final Glucose 06/13/2024 05:47:01 99 70-120 (mg /dL) Final Calcium 06/13/2024 05:47:01 9.8 8.4-10.2 ( mg/dL) Final Performing Location [facility] [place] [address]
--- OUTSIDE RECORDS SUMMARY | 2024-07-16 13:17 | External Medical Summary | Summary of Care ---
Author Name Unknown Organization [facility] Address [address] [place] [address] Phone [phone] Care Team Providers Care Salesperson Florist Supplies Name Role Phone Brian Salas DO Primary Care Provider [phone] Reason for Referral * Evaluate & Treat - Unlimited Visits (Within 30 days (routine)) - Authorized Specialty Diagnoses / Procedures Referred By Tejas otero Referred To Contact Rheumatology Diagnoses Sjogren syndrome, unspecified (HCC) Brian Salas DO [address] [place] [address] Phone: tel: fax: Referral ID Status Reason Start Date Expiration Date Visits Requested Visits Authorized [id number] Authorized Specialty Services Required 4 [phone] Question Answer Referral Priority Within 30 days (routine) Where should this appointment be scheduled? Ana Reason for referral: Other Conditions Reason for Visit * Reason Onset Date Comments Medication Question 06/22/2024 Clarify pres criptions Encounter Details Date Type Department Care Team (Latest Contact Info) Description 06/22/2024 Supervisor [employer] Telephone Care Coordination and Integration [address] [place] [address] Kristina Silver, LESLIE [address] [place] [address] Medication Question (Clarify prescriptions) Allergies Active Allergy Reactions Criticality Noted Date [...] as of this encounter (statuses as of 06/22/2024) Medications lamoTRIgine (LAMICTAL) 200 MG TabletIndications:S chizoaffective disorder, chronic condition ([facility]) TAKE 1 TABLET BY MOUTH TWICE DAILY [...] (Neurontin)Indicati ons:Polyneuropathy in other diseases classified elsewhere ([facility] [...] mouth daily. Active Vitamin D3 50 MCG (1999) Oral Capsule Take by mouth 1 Capsule [...] morning. 90 Tablet 3 12/14/19 23 Active Levocetirizine Dihydrochloride 5 MG Oral Tablet (Xyzal Allergy 24HR)Indications:Mi xed rhinitis Take 1 Tablet by mouth every evening. 30 Tablet 11 03/08/20 23 Active Paliperidone ER 6 MG Oral Tablet Extended Release 24 Hour (Invega) Take 1 Tablet by mouth in the morning. 06/30/20 23 Active Perphenazine 2 MG Oral Tablet (Trilafon) Take 2 Tablets by mouth once. 06/30/20 23 Active Fluticasone Propionate 50 MCG/ACT Nasal Suspension (Flonase) Administer 2 Sprays into each nostril in the morning. 16 g 11 07/05/20 23 Active Triamcinolone Acetonide 55 MCG/ACT Nasal Aerosol (Nasacort Allergy 24HR)Indications:Al lergic rhinitis, unspecified seasonality, unspecified trigger Administer 2 Sprays into nostril in the morning. 16.9 mL 5 07/05/20 23 Active hydrOXYzine HCl 50 MG Oral [...] Oral Tablet (Betapace)Indicatio ns:PAF (paroxysmal atrial 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) ([facility]) TAKE 1/2 TABLET BY MOUTH TWICE A [...] DAILY 90 Tablet 1 02/29/20 24 Active Breo Ellipta 200-25 MCG/ACT Inhalation [...] evening. 90 Tablet 3 05/03/20 24 Active Rosuvastatin Calcium 5 MG Oral Tablet (Crestor)Indication s:Dyslipidemia, goal LDL below 130 TAKE 1 TABLET BY MOUTH DAILY 90 Tablet 05/07/20 24 Active Levothyroxine Sodium 200 MCG Oral Tablet (Levoxyl) Take 1 Tablet by mouth in the morning. (at least 30 min prior to breakfast or other meds). 90 Tablet 3 05/18/20 24 Active hydrALAZINE HCl 25 MG Oral Tablet (Apresoline) Take 3 Tablets by mouth in the morning and 3 Tablets at noon and 3 Tablets before bedtime. Active amLODIPine Besylate 5 MG Oral Tablet (Norvasc) Take 1 Tablet by mouth 2 times a day. Active busPIRone HCl 15 MG Oral Tablet (Buspar) Take 1 Tablet by mouth daily. Active DULoxetine HCl 20 MG Oral Capsule Delayed Release Particles (duloxetine) Take 1 Capsule by mouth in the morning. Active Furosemide 40 MG Oral Tablet (Lasix) Take 1 Tablet by mouth in the morning and 1 Tablet before bedtime. Active Spironolactone 25 MG Oral Tablet (Aldactone)Indicati ons:HTN, goal below 130/80,Chronic diastolic heart failure (HCC) Take 1 Tablet by mouth in the morning. 90 Tablet 3 06/22/20 24 Active Spironolactone 25 MG Oral Tablet (Aldactone) Take 1 Tablet by mouth in the morning. 024 Discontin ued(Refil l) documented as of this encounter (statuses as of 06/22/2024) Active Problems Problem Noted Date Diagnosed Date [...] as of this encounter (statuses as of 06/22/2024) Resolved Problems Problem Noted Date Diagnosed Date [...] 1 09/25/2012 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/31/2010 10/08/19 11 halfway current use of ant icoagulant therapy 08/31/2010 05/19/2011 Overview (05/02/2017): ICD-10 update of inactive term Dysfunction of eustachian tube 08/17/2010 05/19/2011 Hypersomnia with sleep apnea 08/17/2010 01/15/2023 OTITIS MEDIA, CHRONIC, LEFT 08/17/2010 05/19/2011 Abnormality of gait 03/24/2010 06/18/20 14 ACTIVE CASE MANAGEMENT Kadie Hernandez [phone] 01/06/20 10 05/18/2010 Overview (05/18/2010): ACTIVE CASE [...] as of this encounter (statuses as of 06/22/2024) Immunizations Name Administration Dates Next Due COVID-19 mRNA, LNP-s, No Pre serve, 2-Dose Series (Moderna) 11/03/2020,10/06/2020 COVID-19 mRNA, LNP-s, No Pre serve, 2-Dose Series (Pfizer) 06/08/2021 Covid-19, Mrna, Lnp-s, Pf, B ivalent, 30 Mcg, IM, 12 yrs and above (Pfizer) 05/05/2022 H1N1 2009 Influenza, IM 08/15/2009 Hepatitis B, 20+ yrs 01/16/2014,04/06/2013,03/05 PPD 02/27/2013 Pneumococcal Conjugate Vacci ne, 20-valent ([id number]) 03/05/2022 Pneumococcal Polysaccharide PPV23 (Pneumovax) 03/31/2009 Seasonal [...] No 06/22/2024 Does the household have a [facility] source of income? (Household - for ages [...] Miscellaneous Notes * Telephone Encounter - Kristina Silver RN - 06/22/2024 3:40 PM EST Noted - appreciate having the Spironolactone prescription sent to [facility]. Sent an EPIC telephone encounter to Rheumatology scheduling, requesting assistance in scheduling patient for a follow up appointment. Kristina Silver RN, ALBANIAN Ted Supervisor [employer] [phone] * Telephone Encounter - Brian Salas DO - 06/22/2024 2:33 PM EST Script sent. Plaquenil was started by rheumatology. I think scheduling a follow- up with them is good idea. It looks like it has been a while. Paliperidone was started by psychiatry. I think she already sees them regularly. * Telephone Encounter - Kristina Silver RN - 06/22/2024 10:22 AM EST Patient was recently hospitalized at [facility] from 06/10/2024 to 06/12/2024 after a mechanical fall and was also found to have asymptomatic hypertensive urgency. She went to [facility] post discharge before returning home on 06/21/2024. [facility]. I spoke to Mojgan at [facility] to complete a medication reconciliation and she notes they are in need of a prescription for the newly prescribed Spironolactone (25mg daily). If you agree, please sign the pended refill request which will be e-prescribed to [facility]. Also, upon reconciling patient's medications, Mojgan is requesting clarification on the dosing of Plaquenil and Paliperidone. She also notes she received notification patient is to be on Omeprazole, however they do not have a prescription for such. Please advise. Mojgan is also requesting patient's current medication list be reviewed for accuracy as patient is on quite a few medications. Thanks, Kristina Silver RN, BSN Ted Supervisor [employer] [phone] documented in this encounter Plan of Treatment Upcoming Encounters Date Type Department Care Team (Late st Contact Info) Description 06/27/2024 11:00 AM EST Office Visit Family [facility] [place] [address] [place], [place] [address] Brian Salas, DO [address] [facility] [place] [address] 06/29/2024 8:50 AM EST Home Visit Care Coordination and Integration [address] [place] [address] Candice Muhammad, Community Health Scrap Metal Processing Worker [address] [place] [address] 08/21/2024 8:30 AM EST Office Visit Cardiology, [facility] [address] [place] [address] Griselda Cody CRNP [address] [place] [address] 11/20/2024 10:00 AM EDT Office Visit Family Practice [facility] [address] [place] [address] Brian Salas, DO [address] [facility] [address] [place] [address] 03/12/2025 11:20 AM EDT Office [facility] [place] [phone] Charlette Brannon, DO [address] [place] [address] 04/11/2025 8:20 AM EDT Office Visit Pulmonary Medicine, [facility] [address] [place] [address] Yo Abreu MD [address] [place] [address] 05/21/2025 9:25 AM EDT Office Visit Urogynecology [facility] [address] [place] [address] Del Baron MD [address] [place] [address] Nurse Trae Tucker [address] [place] [address] Scheduled Procedures Name Priority Associated Diagnoses Date/Ti me COLONOSCOPY FLEXIBLE PROXIMA L DIAGNOSTIC Recall Special screening for malignant neoplasms, colon Scheduled Referrals Name Type Priority Associated Diagnoses Orde r Schedule RHEUMATOLOGY REFERRAL OP Referral Within 30 days (routine) Sjogren syndrome, unspecified (HCC) Ordered: 06/22/2024 Health Maintenance Due Date Last Done Comments [...] 05/15/2024, Additional history exists Colonoscopy 12/04/2031 12/03/2021, 0511/2021, 06/07/2018, Additional history exists Colorectal Cancer Screening [...] goal below 130/80- Primary Unspecified essential hypertension Chronic diastolic heart failure (HCC) Chronic diastolic heart failure Sjogren syndrome, unspecified (HCC) documented in this encounter Care Teams Salesperson Florist Supplies Relationship Specialty Start Date End Date Brian Salas DO [address] [place] [address] PCP - General Family Medicine 12/16/15 documented as of this encounter
--- OUTSIDE RECORDS SUMMARY | 2024-07-16 13:17 | External Medical Summary ---
Author Name Unknown Address Unknown Organization [facility] [place] [address] Laboratory Report Ordering Provider Test Date Status MARY JANE PEARCE 06/20/2024 06:25:23 Final Observation Date Value Abnormality Reference (Units ) Status BUN 06/20/2024 06:25:23 15 6-20 (mg/dL) Final Creatinine 06/20/2024 06:25:23 0.7 0.5-1.0 (mg/dL) Final Glomerular filtration rate/1.73 sq M.predicted [Volume Rate/Area] in Serum, Plasma or Blood by Creatinine-based formula (CKD-EPI) 06/20/2024 06:25:23 >90 >=60 (mL/min) Final eGFR is calculated based on the CKD-EPI 2020 equation. Sodium 06/20/2024 06:25:23 133 Below low normal 135 -146 (mmol/L) Final Potassium 06/20/2024 06:25:23 4.2 3.5-5.1 (m mol/L) Final Cl 06/20/2024 06:25:23 93 Below low normal 98- 107 (mmol/L) Final CO2 06/20/2024 06:25:23 28 22-32 (mmo l/L) Final Anion gap 06/20/2024 06:25:23 12 7-15 (mmol /L) Final Glucose 06/20/2024 06:25:23 97 70-120 (mg /dL) Final Calcium 06/20/2024 06:25:23 9.6 8.4-10.2 ( mg/dL) Final Performing Location [facility] [place] [address]
--- OUTSIDE RECORDS SUMMARY | 2024-07-16 13:17 | External Medical Summary ---
Author Name Unknown Address Unknown Organization [facility] [place] [address] Laboratory Report Ordering Provider Test Date Status MARY JANE PEARCE 06/20/2024 06:25:23 Final Observation Date Value Abnormality Reference (Units ) Status WBC, Total 06/20/2024 06:25:23 7.81 4.00-10.8 0 (K/uL) Final RBC 06/20/2024 06:25:23 4.04 3.85-5.15 (M/uL) Final Hemoglobin 06/20/2024 06:25:23 12.3 12.0-15.3 (g/dL) Final HCT 06/20/2024 06:25:23 37.7 36.0-45.2 (%) Final MCV 06/20/2024 06:25:23 93.3 81.5-97.5 (fL) Final MCH 06/20/2024 06:25:23 30.4 27.0-34.0 (pg) Final MCHC 06/20/2024 06:25:23 32.6 32.0-36.0 (g/dL) Final RDW 06/20/2024 06:25:23 13.9 11.5-15.5 (%) Final Platelets 06/20/2024 06:25:23 166 140-400 (K /uL) Final MPV 06/20/2024 06:25:23 12.8 6.6-11.1 ( fL) Final Performing Location [facility] [place] [address]
--- OUTSIDE RECORDS SUMMARY | 2024-07-16 13:17 | External Medical Summary | Summary of Care ---
Author Name Unknown Organization [facility] Address [address] [place] [address] Phone [phone] Care Team Providers Care Wooden Fence Erector Name Role Phone AramisBrian self Primary Care Provider [phone] Reason for Visit * Reason Onset Date Comments Appointment 06/22/2024 Rheumatology Encounter Details Date Type Department Care Team (Latest Contact Info) Description 06/22/2024 Grid Caster Telephone Care Coordination and Integration [address] [place], [place] [id number] Kristina Silver, LESLIE [address] [place], [place] [id number] Appointment (Rheumatology) Allergies Active Allergy Reactions Criticality Noted Date [...] as of this encounter (statuses as of 06/25/2024) Medications lamoTRIgine (LAMICTAL) 200 MG TabletIndications:S chizoaffective [...] ons:Polyneuropathy in other diseases classified elsewhere ([facility]) Take 1 Cap by mouth at bedtime. 30 Cap 5 05/11/20 21 Active Sertraline HCl 100 MG Oral Tablet (Zoloft)Indications :Major depressive disorder with single episode, in partial remission ([facility]) Take 1 Tab by mouth [...] morning. 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, bilateral legs 08/02/2019 [...] as of this encounter (statuses as of 06/25/2024) Immunizations Name Administration Dates Next Due COVID-19 mRNA, LNP-s, No Pre serve, 2-Dose Series (Moderna) 11/03/2020,10/06/2020 COVID-19 mRNA, LNP-s, No Pre serve, 2-Dose Series (Pfizer) 06/08/2021 Covid-19, Mrna, Lnp-s, Pf, B ivalent, 30 Mcg, IM, 12 yrs and above (Pfizer) 05/05/2022 H1N1 2009 Influenza, IM 08/15/2009 Hepatitis B, 20+ yrs 01/16/2014,04/06/2013,03/05 PPD 02/27/2013 Pneumococcal Conjugate Vacci ne, 20-valent ([id number]) 03/05/2022 Pneumococcal Polysaccharide PPV23 (Pneumovax) 03/31/2009 Seasonal [...] encounter Miscellaneous Notes * Telephone Encounter - Kusum Temple OSA - 06/25/2024 8:48 AM EST Scheduled first available, 08/02/24 @ 10:00 am. * Telephone Encounter - Kristina Silver RN - 06/22/2024 3:39 PM EST Patient has not been seen by Rheumatology in quite a while and would benefit from a follow up appointment. Her pharmacy is also asking for clarification on patient's Plaquenil prescription, which waslast prescribed by Rheumatology. Please contact patient to schedule a follow up appointment. Thanks, Kristina Silver RN, BSN Float Grid Caster [phone] documented in this encounter Plan of Treatment Upcoming Encounters Date Type Department Care Team (Late st Contact Info) Description 06/27/2024 11:00 AM EST Office Visit Family Practice [place] [address] [place], [place] [address] Brian Salas, [address] [place] [address] 06/29/2024 8:50 AM EST Home Visit Care Coordination and Integration [address] [place] [address] Candice Muhammad, Community Health Wallcovering Texturer [address] [place] [address] 08/02/2024 10:00 AM EST Office Visit Rheumatology [place] [phone] [facility] [place], [place] [address] Rui Tee MD [facility] [place], [place] [address] 08/21/2024 8:30 AM EST Office Visit Cardiology, [facility] [address] [facility] [place] [address] Griselda Cody CRNP 132 [facility] [place] [address] 11/20/2024 10:00 AM EDT Office Visit Family Practice [facility] 200 [facility] [place] [address] Brian Salas, DO 200 [facility] [place], [place] [address] 03/12/2025 11:20 AM EDT Office Visit [facility] [place] [phone] Charlette Brannon, DO 132 [facility] [place] [address] 04/11/2025 8:20 AM EDT Office Visit Pulmonary Medicine, [facility] [address] [place] [address] Yo Abreu MD [address] [place] [address] 05/21/2025 9:25 AM EDT Office Visit Urogynecology Cristy Tucker [address] [place] [address] Del Baron MD [address] [place] [address] Nurse Trae Tucker [address] [place] [address] Scheduled Procedures Name Priority Associated Diagnoses Date/Ti [...] filedocumented as of this encounter Care Teams Wooden Fence Erector Relationship Specialty Start Date End Date Brian Salas DO [address] [place] [address] PCP - General Family Medicine 12/16/15 documented as of this encounter
[2024-07-16] MEDS: LORazepam 1 MG TAB SL STA (15:24)
[2024-07-16] MEDS: hydrOXYzine HCl 25 MG TAB PO STA (15:24)
--- NOTE | 2024-07-16 17:18 | Emergency Department Note ---
ED Visit Note 1718: Signout from Dr. Gongora. 59-year-old female with suicidal ideation secondary to bedbug infestation. Patient was decontaminated in the emergency department 201. Medically cleared awaiting placement. 0130: Awaiting placement. Signout to Dr. Smith. .
[2024-07-17] MEDS: MELATONIN 3 MG TAB PO PRN (01:27)
[2024-07-17] MEDS: busPIRone 15 MG TAB PO SCH (01:27)
[2024-07-17] MEDS: FUROSEMIDE 40 MG TAB PO SCH (01:28)
--- NOTE | 2024-07-17 01:32 | Emergency Department Note ---
ED Visit Note I received signout from Dr. Varela. Patient is a current voluntary 201 suicidal with plan to overdose. Home meds already ordered. Patient medically cleared and pending placement. Patient was signed out to Dr. Garvey pending possible placement. .
--- NOTE | 2024-07-17 07:51 | Emergency Department Note ---
ED Visit Note Patient signed out to me at change of shift from Dr. Smith. Patient medically cleared at time of signout. Patient here with suicidal ideation and plan to overdose. She did recently attempt to overdose. At this time she is voluntary but does wish to stay local regarding inpatient mental health treatment. Bed search ongoing at time of signout. 1415: After ongoing evaluation here today including a consult by psychiatry and based on additional social factors it was recommended that patient be admitted medically for further evaluation of her ambulatory dysfunction and ongoing psychiatric care. Patient unable to be safely discharged home per their discussion which included speaking with her outpatient community case manager. 1455: [facility] additional evaluation and management. .
[2024-07-17] MEDS: SERTRALINE HCL 100 MG TABLET PO SCH (08:47)
[2024-07-17] MEDS: DULoxetine HCL 20 MG CAP PO SCH (08:47)
[2024-07-17] MEDS: LOSARTAN POTASSIUM 50 MG TAB PO SCH (08:48)
[2024-07-17] MEDS: hydroCHLOROthiazide 25 MG TAB PO SCH (08:48)
[2024-07-17] MEDS: LORazepam 1 MG TAB SL STA (14:06)
--- NOTE | 2024-07-17 15:03 | History & Physical Report ---
Date of Service July 17, 2024 Assessment & Plan (1) Suicidal ideation: (2) Asthma: (3) Schizoaffective disorder: (4) History of seizure: (5) Hypertension: (6) Dyslipidemia: (7) Paroxysmal A-fib: Plan Ms. Melton is a 59 year old female that presented to the [facility] with suicidal ideation with intent to overdose. She presented to the hospital on 07/16 as a voluntary 200. Additional PMH with multiple comorbidities including seizure disorder, schizoaffective disorder, asthma, paroxysmal atrial 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, morbid obesity, bipolar disorder, iron deficiency anemia, hypertension, hyperlipidemia, ? Sjogren syndrome, restless leg syndrome and other medical problems presents with suicidal ideation. She states attempting to overdose herself with some of her home medications few days ago. She has felt more isolated and unable to allow her aide that comes to help around the house in her apartment given the current bed bug infestation at her apartment complex. Patient reports auditory hallucinations telling her to harm herself and end her life. Normal toxicology screen. Negative for COVID. EKG showed nonspecific ST-T wave changes. Currently, Psychiatry case management is actively working on an inpatient psychiatric Suicidal Ideation: schizoaffective disorder: Patient here with suicidal ideation and reports plan to overdose on her medications. She did recently attempt to overdose. At this time she is voluntary but does wish to stay local regarding inpatient mental health treatment. Bed search ongoing/working with CM. 1:1 observation Takes paliperidone, perphenazine, Zoloft, Cymbalta and Buspar; continue Psych consult placed and will defer management of psych meds to psychiatry. Asthma: Chronic Uses Breo Ellipta; continue Takes montelukast;continue Wears a BiPap at night; continue per protocol here HS Xopenex PRN Some wheezes on exam Hypokalemia: K+ on 07/16 here in ED was 3.4; replace with 40 PO KCL Recheck in AM HTN: pAF: Chronic Takes HCTZ, Losartan, and Sotolol; continue Has been on anticoagulation in the past; not currently on any HLD: Chronic Takes low dose rosuvastatin History of seizure: Takes Hypothyroidism: Chronic Takes levothyroxine; continue Check TSH with AM labs OAB: Chronic Takes mirabegron; continue Disposition: PCP: Dr. Salas Code Status: Full Code VTE Prophylaxis: Lovenox SQ I spent a total of 78 minutes coordinating, documenting, and providing care for this patient excluding time spent in the performance of separately billed services. All of the aforementioned completed while collaborating with the assigned attending physician for a full treatment plan. Please see their addendum for further details. History of Present Illness Chief Complaint: SI Primary Care Provider: Brian Salas DO Ms. Melton is a 59 year old female that presented to the [facility] with suicidal ideation with intent to overdose. She presented to the hospital on 07/16 as a voluntary 200. Additional PMH with multiple comorbidities including seizure disorder, schizoaffective disorder, asthma, paroxysmal atrial 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, morbid obesity, bipolar disorder, iron deficiency anemia, hypertension, hyperlipidemia, ? Sjogren syndrome, restless leg syndrome and other medical problems presents with suicidal ideation. She states attempting to overdose herself with some of her home medications few days ago. She has felt more isolated and unable to allow her aide that comes to help around the house in her apartment given the current bed bug infestation at her apartment complex. Patient reports auditory hallucinations telling her to harm herself and end her life. Normal toxicology screen. Negative for COVID. EKG showed nonspecific ST-T wave changes. Currently, Psychiatry case management is actively working on an inpatient psychiatric Labs drawn yesterday include no leukocytosis, slight hypokalemia, no transaminitis, and otherwise lab work up unremarkable. Pt denies Carrillo, dizziness, SOB, CP, palpitations, N/V/D, dysuria, hematochezia, recent falls or trauma. Patient will be admitted for further evaluation and management. Please see A/P for further details. Allergies Allergy/AdvReac Type Severity Reaction Status Date / Time adhesive Allergy Intermediate RASH, ITCHY Verified 06/18/22 21:51 Hydantoins Allergy Intermediate Hives Verified 06/18/22 21:51 ethyl alcohol AdvReac Severe Seizure Verified 06/18/22 21:51 thioridazine AdvReac Severe SEIZURES Verified 06/18/22 21:51 phenytoin AdvReac Intermediate Nausea Verified 06/18/22 21:51 Home Medications Medication Instructions Recorded Confirmed Type duloxetine 30 mg capsule,delayed 30 mg PO DAILY 06/18/22 07/16/24 History release gabapentin 300 mg capsule 300 mg PO HS 06/18/22 07/16/24 History lamotrigine 200 mg tablet 200 mg PO BID 06/18/22 07/16/24 History levocetirizine 5 mg tablet 5 mg PO PM 06/18/22 07/16/24 History losartan 100 mg tablet 100 mg PO DAILY 06/18/22 07/16/24 History mirtazapine 30 mg tablet 30 mg PO HS 06/18/22 07/16/24 History montelukast 10 mg tablet 10 mg PO HS 06/18/22 07/16/24 History paliperidone 9 mg tablet,extended 9 mg PO HS 06/18/22 07/16/24 History release 24 hr perphenazine 8 mg tablet 8 mg PO HS 06/18/22 07/16/24 History potassium chloride 10 mEq 10 meq PO DAILY 06/18/22 07/16/24 History tablet,extended release rosuvastatin 5 mg tablet 5 mg PO HS 06/18/22 07/16/24 History sertraline 100 mg tablet 200 mg PO DAILY 06/18/22 07/16/24 History hydrochlorothiazide 12.5 mg capsule 12.5 mg PO DAILY 06/10/24 07/16/24 History levothyroxine 200 mcg tablet 200 mcg PO DAILY 06/10/24 07/16/24 History fluticasone furoate 50 1 inh inhalation DAILY #60 ea 06/12/24 07/16/24 Rx mcg-vilanterol 25 mcg/dose inhalation powder (Breo Ellipta) buspirone 15 mg tablet 15 mg PO BID 07/16/24 07/16/24 History furosemide 40 mg tablet 40 mg PO BID 07/16/24 07/16/24 History mirabegron 50 mg tablet,extended 50 mg PO HS 07/16/24 07/16/24 History release 24 hr perphenazine 4 mg tablet 4 mg PO DAILY 07/16/24 07/16/24 History amlodipine 5 mg tablet 5 mg PO BID 07/17/24 07/17/24 History sotalol 80 mg tablet 80 mg PO BID 07/17/24 07/17/24 History Past Med/Surg History Problem List History of seizure Suicidal ideation (Acute) Asymptomatic hypertensive urgency Fall (Acute) Symptomatic anemia (Acute) Dyspnea on minimal exertion (Acute) Encounter for pre-operative examination Hyponatremia NATY (acute kidney injury) SEEMA (iron deficiency anemia) (Acute) Anemia (Acute) RLS (restless legs syndrome) MAURO (obstructive sleep apnea) Chronic diastolic (congestive) heart failure Positive SOFIA (antinuclear antibody) Dyslipidemia Hypertension History of iron deficiency anemia (Acute) Bipolar I disorder (Chronic 01/14/13) Intractable vomiting with nausea (Acute) Severe hypertension (Acute) Morbid obesity Chronic back pain High catecholamines Sacroiliac joint pain Lumbar post-laminectomy syndrome Lumbar pain with radiation down both legs Schizoaffective disorder Asthma rare res inh use Paroxysmal A-fib follows with [facility] Dyspnea Anxiety and depression Admitted to intensive care unit DVT prophylaxis Nausea and vomiting Hypertensive emergency Morbid obesity Bipolar 1 disorder Osteoarthritis Fibromyalgia Spinal stenosis Degenerative disc disease Chronic back pain GERD (gastroesophageal reflux disease) Hypothyroidism Migraine Seizure SEIZURES X 2 (); CONTROLLED ON LAMICTAL Sleep apnea cpap Epilepsy hx of, last one in IBS (irritable bowel syndrome) Surgical History Nausea and vomiting after administration of anesthetic agent History of cataract surgery RT/LEFT History of total abdominal hysterectomy and bilateral salpingo-oophorectomy S/P foot surgery, left X2 History of carpal tunnel release LEFT Status post lumbar spine surgery for decompression of spinal cord + RODS History of colonoscopy History of cholecystectomy History of tooth extraction ALL UPPER TEETH EXTRACTIONS History of tonsillectomy and adenoidectomy History of endoscopic sinus surgery Family History Father Family history of diabetes mellitus Coronary heart disease Mother Lung cancer Sister Alive and well Brother Alive and well Other No family history of adverse response to anesthesia Social History Smoking Status: Former smoker Tobacco Type: Cigarettes Second Hand Exposure: No; Do You Dip or Chew Tobacco: No; Hx Alcohol Use: No Hx Substance Use: No Preferred Language: Setswana Communication Ability: Effective Visual Impairment: No Limitations 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: Normal Dietitian Teaching Required: No Beliefs That Will Affect Care: None marital status: Current Living Situation: Alone Current Living Situation Comment: Residential current occupational status: disabled Feels Safe at Home: Yes Gender Identity: Female Assistive Devices: BiPap, Cane, Glasses and Walker Review of Systems Review of Systems: Neuro: (-) Falls, trauma, slurred speech HEENT: (-) CARRILLO, dizziness, dysphagia, visual or auditory changes CV: (-) CP, palpitations, swelling Resp: (-) SOB GI: (-) appetite changes, N/V/D, bowel changes : (-) urinary changes Skin: (-) rashes Psych: (-) anxiety, depression Physical Exam Physical Exam: Neuro: AAOx4, PERRLA, no aphagia, memory changes, CNII-XII grossly intact HEENT: head normocephalic, moist mucus membranes CV: S1/S2, (-) M/G/R, (-) edema, cap refill < 3 seconds Resp: Lungs CTA in all villa. On RA GI: Abdomen S/NT/ND, Ax4 bowel sounds, (-) CVA tenderness Musculoskeletal: 5/5 B/L UE strength, 5/5 B/L LE strength. No gait disturbance Skin: (-) rashes , (-) erythema. Psych: euthymic mood Results & Data Results & Data Vital Signs (Past 12 Hours) Vital Signs Pulse Resp BP Pulse Ox O2 Del Method 07/17/24 14:34 78 14 126/79 95 Room Air 07/17/24 08:45 71 18 150/88 H 97 Room Air 07/17/24 05:00 71 18 144/80 H 97 Room Air Code Status & VTE Plan Code Status Full Code in the event of cardiac or respiratory arrest VTE Prophylaxis Plan VTE Prophylaxis will be ordered: Yes Supervising Physician Co-Signing Physician Notes Patient is a 59-year-old female with multiple comorbidities including seizure disorder, schizoaffective disorder, asthma, paroxysmal atrial 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, morbid obesity, bipolar disorder, iron deficiency anemia, hypertension, hyperlipidemia, ? Sjogren syndrome, restless leg syndrome and other medical problems presents with suicidal ideation. She states attempting to overdose herself with her home medications few days ago and currently has been having bedbugs at home and as a result she has been isolated. Patient admits to have suicidal thoughts and has been hearing voices to harm herself. She feels to continue to have suicidal thoughts to overdose with her medications. She is unable to perform her ADLs by herself. Denies any chest pain, dyspnea, nausea, vomiting, abdominal pain, fever, chills. Please review HPI for complete details of presentation. I personally reviewed blood work. Potassium noted to be 3.4, TSH mildly elevated at 7.08, normal free T4. Urinalysis within normal limits. Normal toxicology screen. Negative for COVID. EKG showed nonspecific ST-T wave changes. Physical Exam: Vitals signs as noted above General Appearance: Morbidly obese, no apparent distress Head: normocephalic, Atraumatic Eyes: normal inspection, EOMI Neck: supple, Trachea midline Respiratory/Chest: Normal breath sounds, minimal expiratory wheezes , No accessory muscle use Cardiovascular: S1, S2, No murmur Abdomen/GI:Soft, Non tender, Bowel sounds present Extremities/Musculoskeletal:normal inspection, trace pedal edema Neurologic/Psych:AAOX3, grossly no focal neurological deficits Skin: normal color, warm Suicidal ideation Schizoaffective disorder Patient currently on multiple medications One-to-one observation Psychiatry consulted Will defer to psychiatry for adjustment of medications as needed Hypokalemia Replete electrolytes as needed Check magnesium level Ambulatory dysfunction PT OT, fall precautions Other comorbid conditions Continue home medications when appropriate Morbid obesity BMI 57.8 I personally interviewed and examined at bedside. Patient's care is coordinated with Taylor DONOVAN. I have reviewed the advanced practitioner's documentation, and I agree with plan of care. Please refer to the documentation above for details of patient's presentation and for discussion of other issues. I spent a total [id number] coordinating, documenting, and providing care for this patient excluding time spent in the performance of separately billed services.
[2024-07-17] MEDS ORDERED: LEVALBUTEROL HCL 0.63 MG/3 ML NEB NEB PRN (15:57)
[2024-07-17] MEDS: POTASSIUM CHLORIDE CRTAB 20 MEQ TABCR PO STA (16:19)
[2024-07-17] MEDS ORDERED: MAGNESIUM HYDROXIDE SUSP 30 ML UDC PO PRN (17:14)
[2024-07-17] MEDS ORDERED: ALUMINUM/MAGNESIUM SUSP 30 ML UDC PO PRN (17:14)
[2024-07-17] MEDS ORDERED: ONDANSETRON INJ 2 MG/ML 2 ML VIAL IV PRN (17:14)
[2024-07-17] MEDS: ENOXAPARIN INJ 40 MG/0.4 ML SYR SQ SCH (18:13)
[2024-07-17] MEDS: SOTALOL HCL 80 MG TAB PO SCH (21:24)
[2024-07-17] MEDS: PALIPERIDONE 3 MG TABCR PO SCH (21:24)
[2024-07-17] MEDS: MONTELUKAST SODIUM 10 MG TABLET PO SCH (21:24)
[2024-07-17] MEDS: GABAPENTIN 300 MG CAP PO SCH (21:24)
[2024-07-17] MEDS: ROSUVASTATIN CALCIUM 5 MG TAB PO SCH (21:24)
[2024-07-17] MEDS: VIBEGRON 75 MG TAB PO SCH (21:24)
[2024-07-17] MEDS: amLODIPine BESYLATE 5 MG TAB PO SCH (21:24)
[2024-07-17] MEDS: lamoTRIgine 100 MG TAB PO SCH (21:24)
[2024-07-17] MEDS: PERPHENAZINE 4 MG TAB PO SCH (21:24)
[2024-07-17] MEDS: CETIRIZINE HCL 10 MG TABLET PO SCH (21:24)
[2024-07-17] MEDS: MIRTAZAPINE TAB 15 MG TAB PO SCH (21:24)
[2024-07-17] MEDS: tiZANidine HCL 4 MG TABLET PO STA (23:09)
[2024-07-18 00:22] LABS: Appearance Urine Clear (Clear); Bacteria Urine Automated None Seen (None Seen); Bilirubin Urine Negative (Negative); Blood Urine Negative (Negative); Cast Urine Automated 0-2 /lpf (0-2); Color Urine Yellow; Epithelial Cell Urine Auto 0-2 /hpf (0-2); Glucose Urine UA Negative (Negative); Ketones Urine Negative (Negative); Leukocyte Esterase Urine 1+ (Negative); Nitrite Urine Negative (Negative); Protein Urine Negative (Negative); RBC Urine Automated 0-2 /hpf (0-2); Specific Gravity Urine 1.005 (1.000-1.030); Urobilinogen Urine Negative (Negative); WBC Urine Automated 0-5 /hpf (0-5)
[2024-07-18] MEDS: POLYETHYLENE (MIRALAX) 17 GM PACK PO PRN (04:49)
[2024-07-18] MEDS: LEVOTHYROXINE SODIUM 200 MCG TABLET PO SCH (05:47)
[2024-07-18 06:34] LABS: Hematocrit (blood only) 36.6 % (37.0-47.0); Hemoglobin 12.1 g/dl (12.0-16.0); Mean Corpuscular Hemoglobin 30.6 pg (25.0-34.0); Mean Corpuscular Hgb Conc 33.1 g/dL (32.0-36.0); Mean Corpuscular Volume 92.4 fL (80.0-100.0); Platelet Count 185 K/uL (130-400); RDW Coefficient of Variation 13.6 % (11.5-14.5); RDW Standard Deviation 46.4 fL (36.4-46.3); Red Blood Count 3.96 M/uL (4.20-5.40); White Blood Count 8.71 K/ul (4.8-10.8)
[2024-07-18 06:49] LABS: BUN Creatinine Ratio 15.7 (10-20); Calcium 9.6 mg/dl (8.6-10.3); Chol HDL Ratio 2.8 (0-5); Creatinine Clr Calc Pharmacy 114.9 ml/min; Magnesium 1.8 mg/dl (1.7-2.4); Potassium 3.1 mmol/L (3.5-5.1)
[2024-07-18] MEDS: DULoxetine HCL 30 MG CAP PO SCH (07:54)
[2024-07-18] MEDS: PERPHENAZINE 4 MG TAB PO SCH (07:54)
[2024-07-18] MEDS: FLUTICASONE/VILANTEROL 100/25MCG 14 PUFFS/INHALER INH SCH (07:56)
[2024-07-18] MEDS ORDERED: POTASSIUM CHLORIDE 10 MEQ TABCR PO SCH (09:00)
[2024-07-18] MEDS: POTASSIUM CHLORIDE CRTAB 20 MEQ TABCR PO SCH ×2 (10:59→21:04)
[2024-07-18] MEDS: LORazepam 0.5 MG TAB PO STA (11:16)
--- NOTE | 2024-07-18 14:22 | Psychiatric Consultation ---
Date of Consultation July 18, 2024 Impression / Recommendations Impression 59 y/o F h/o Schizoaffective disorder, asthma, HTN, hypothyroidism, overactive bladder, dyslipidemia, paroxysmal a-fib, obesity with BMI 42, mauro on cpap, h/o seizures presents with suicidality in the context of bed bug infestation at home. Her suicidal ideation has now resolved and appears situational due to her stressors. She presents a history of SAD with chronic auditory and visual hallucinations and presents polypharmacy with 2 serotonin antidepressants and 2 antipsychotic medications for her condition. She presents partial remission of her depression symptoms. She presents recurrent falls. Patient may benefit from dose reduction of Duloxetine due to recurrent falls, risk for serotonin toxicity due to also taking sertraline, and unclear benefit. At this time she denies suicidal ideation, is future oriented, presents intact reality testing understanding her needs for living. She would benefit from increased home healthcare frequency or alternatively assisted living placement prior to discha rge. Labs reviewed: CBC, lipid panel, UA unremarkable; potassium 3.1, TSH 7.1 with normal free T4; EKG unremarkable. Overall, I spent a total of 80 minutes with this case including review of chart records, nursing report, review of lab work, direct evaluation of the patient at bedside, counseling the patient, discussion of the patient with the hospitalist provider, discussion with the psychiatric liaison during clinical rounds, and documentation in the electronic health record. (1) Psychosocial stressors: (2) Falls: (3) Anxiety and depression: (4) Schizoaffective disorder: (5) Anemia: Anemia type: iron deficiency Iron deficiency anemia type: other iron deficiency Qualified Code(s): D50.8 - Other iron deficiency anemias (6) MAURO (obstructive sleep apnea): (7) Morbid obesity: (8) Chronic back pain: Plan -PT/OT -Decrease duloxetine to 30mg QD -Continue other home psychiatric medications -Outpatient psychiatry referral -Case management to look into assisted living placement -Bedside sitter not required Psych History Chief Complaint "Bed bugs" History of Present Illness The patient reports being upset and anxious about her situation with the bedbugs. Says that it "threw me over the edge" and are not sure where they came from. She denies current suicidal ideation and reports being suicidal at the time because of the bed bugs. She reports future plans to stay in the area and wants to get an assisted living placement. Complains of low mood and worries about the future that she will not get enough support. Reports having a similar incident with bedbugs 1 year ago; they got treated and she was able to return back home. Reports sleep onset problems and crying spells. Endorses fair appetite, energy, concentration. Has interest and pleasure in activities. Denies excessive guilt. She reports getting home health care 3 times a week with assistance for cleaning, laundry, groceries. Says she would benefit with some assistance for mobility and dressing. Reports having 3 falls recently: 1. Legs gave out while standing, 2. She got up slowly from bed but then collapsed, 3. She slid off the toilet due to weak legs. She reports taking an overdose of pills last week due to the bedbug situation. Unable to state how many pills. She reports this time she was suicidal and she called crisis. She denies having suicidal ideation over the past year prior to this incident. She complains of auditory hallucinations of background mumbling chatter which is worse with anxiety. Complains of seeing bugs flying around and is also worse with anxiety. Reports past diagnosis of schizoaffective disorder depressive type. Uses a walker to ambulate. Was admitted to a geriatric psychiatry facility in August of this year. Reports past assisted living however currently living independently in a senior care apartment. Past Psychiatric History Current Psychiatric Diagnosis: Schizoaffective disorder History of Previous Suicide Attempt: Yes (last ) Allergies Allergy/AdvReac Type Severity Reaction Status Date / Time adhesive Allergy Intermediate RASH, ITCHY Verified 06/18/22 21:51 Hydantoins Allergy Intermediate Hives Verified 06/18/22 21:51 ethyl alcohol AdvReac Severe Seizure Verified 06/18/22 21:51 thioridazine AdvReac Severe SEIZURES Verified 06/18/22 21:51 phenytoin AdvReac Intermediate Nausea Verified 06/18/22 21:51 Home Medications Medication Instructions Recorded Confirmed Type duloxetine 30 mg capsule,delayed 30 mg PO DAILY 06/18/22 07/16/24 History release gabapentin 300 mg capsule 300 mg PO HS 06/18/22 07/16/24 History lamotrigine 200 mg tablet 200 mg PO BID 06/18/22 07/16/24 History levocetirizine 5 mg tablet 5 mg PO PM 06/18/22 07/16/24 History losartan 100 mg tablet 100 mg PO DAILY 06/18/22 07/16/24 History mirtazapine 30 mg tablet 30 mg PO HS 06/18/22 07/16/24 History montelukast 10 mg tablet 10 mg PO HS 06/18/22 07/16/24 History paliperidone 9 mg tablet,extended 9 mg PO HS 06/18/22 07/16/24 History release 24 hr perphenazine 8 mg tablet 8 mg PO HS 06/18/22 07/16/24 History potassium chloride 10 mEq 10 meq PO DAILY 06/18/22 07/16/24 History tablet,extended release rosuvastatin 5 mg tablet 5 mg PO HS 06/18/22 07/16/24 History sertraline 100 mg tablet 200 mg PO DAILY 06/18/22 07/16/24 History hydrochlorothiazide 12.5 mg capsule 12.5 mg PO DAILY 06/10/24 07/16/24 History levothyroxine 200 mcg tablet 200 mcg PO DAILY 06/10/24 07/16/24 History fluticasone furoate 50 1 inh inhalation DAILY #60 ea 06/12/24 07/16/24 Rx mcg-vilanterol 25 mcg/dose inhalation powder (Breo Ellipta) buspirone 15 mg tablet 15 mg PO BID 07/16/24 07/16/24 History furosemide 40 mg tablet 40 mg PO BID 07/16/24 07/16/24 History mirabegron 50 mg tablet,extended 50 mg PO HS 07/16/24 07/16/24 History release 24 hr perphenazine 4 mg tablet 4 mg PO DAILY 07/16/24 07/16/24 History amlodipine 5 mg tablet 5 mg PO BID 07/17/24 07/17/24 History sotalol 80 mg tablet 80 mg PO BID 07/17/24 07/17/24 History Patient History Medical History Dyspnea Anxiety and depression Admitted to intensive care unit DVT prophylaxis Nausea and vomiting Hypertensive emergency Morbid obesity Bipolar 1 disorder Osteoarthritis Fibromyalgia Spinal stenosis Degenerative disc disease Chronic back pain GERD (gastroesophageal reflux disease) Hypothyroidism Migraine Seizure SEIZURES X 2 (); CONTROLLED ON LAMICTAL Sleep apnea cpap Epilepsy hx of, last one in 1989's IBS (irritable bowel syndrome) Surgical History Nausea and vomiting after administration of anesthetic agent History of cataract surgery RT/LEFT History of total abdominal hysterectomy and bilateral salpingo-oophorectomy S/P foot surgery, left X2 History of carpal tunnel release LEFT Status post lumbar spine surgery for decompression of spinal cord + RODS History of colonoscopy History of cholecystectomy History of tooth extraction ALL UPPER TEETH EXTRACTIONS History of tonsillectomy and adenoidectomy History of endoscopic sinus surgery Family History Father Family history of diabetes mellitus Coronary heart disease Mother Lung cancer Sister Alive and well Brother Alive and well Other No family history of adverse response to anesthesia Social History Smoking Status: Former smoker Tobacco Type: Cigarettes Smoking End Date: approximately 20 years ago; Second Hand Exposure: No; Do You Dip or Chew Tobacco: No; Hx Alcohol Use: No Hx Substance Use: No Preferred Language: Malay Communication Ability: Effective Visual Impairment: No Limitations 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: Normal Lacquerer Required: No Beliefs That Will Affect Care: None marital status: Current Living Situation: Alone current occupational status: disabled Other Information That Helps Us Care for You: No Feels Safe at Home: No Is there a partner from a previous relationship who is making you feel unsafe now?: No Any Concerns about Your Family Situation: No Would You Like to Speak to Someone About Your Situation: Yes Safety Concerns: Feels Safe At This Time Gender Identity: Female Assistive Devices: BiPap, Denture - Upper, Glasses and Walker Physical Exam Mental Examination: Appearance: Well Groomed Eye Contact: Direct Eye Contact Motor Behavior: Unremarkable Speech: Normal Mood: Euthymic and Calm Affect: Congruent and Constricted Thought Process: Intact and Linear Thought Content: Intact Hallucinations: None Insight: Fair Judgement: Fair (to limited) Vital Signs (Past 24 Hours): Last Vital Signs Temp 36.3 C L 07/18/24 07:24 Pulse 68 07/18/24 07:24 Resp 18 07/18/24 07:24 BP 140/88 07/18/24 07:24 Pulse Ox 100 07/18/24 07:24 O2 Del Method Room Air 07/18/24 07:24 Results & Data (PSY) Medications Administered Amlodipine Besylate (Amlodipine Besylate 5 Mg Tab) 5 mg PO BID RAVI Stop: 08/16/24 20:59 Last Admin: 07/18/24 07:54 Dose: 5 mg Documented By: Admin: 07/17/24 21:24 Dose: 5 mg Documented By: SAMIA Buspirone HCl (Buspirone 15 Mg Tab) 15 mg PO BID RAVI Stop: 08/16/24 00:59 Last Admin: 07/18/24 07:57 Dose: 15 mg Documented By: Admin: 07/17/24 21:24 Dose: 15 mg Documented By: Admin: 07/17/24 08:48 Dose: 15 mg Documented By: Admin: 07/17/24 01:27 Dose: 15 mg Documented By: [place] Cetirizine HCl (Cetirizine Hcl 10 Mg Tablet) 10 mg PO PM RAVI Stop: 08/16/24 20:59 Last Admin: 07/17/24 21:24 Dose: 10 mg Documented By: ASMIA Duloxetine HCl (Duloxetine Hcl 20 Mg Cap) 20 mg PO DAILY RAVI Stop: 08/16/24 08:59 Last Admin: 07/18/24 07:57 Dose: 20 mg Documented By: Admin: 07/17/24 08:47 Dose: 20 mg Documented By: SALOMÓN Duloxetine HCl (Duloxetine Hcl 30 Mg Cap) 30 mg PO DAILY RAVI Stop: 08/17/24 08:59 Last Admin: 07/18/24 07:54 Dose: 30 mg Documented By: JOANNE Enoxaparin Sodium (Enoxaparin Inj 40 Mg/0.4 Ml Syr) 40 mg SQ Q24H RAVI Stop: 08/16/24 17:59 Last Admin: 07/17/24 18:13 Dose: 40 mg Documented By: DEVON Fluticasone/Vilanterol (Fluticasone/Vilanterol 100/25mcg 14 Puffs/Inhaler) 1 puffs INH DAILY RAVI Stop: 08/17/24 08:59 Last Admin: 07/18/24 07:56 Dose: 1 puffs Documented By: JOANNE Furosemide (Furosemide 40 Mg Tab) 40 mg PO BID RAVI Stop: 08/16/24 00:59 Last Admin: 07/18/24 10:59 Dose: 40 mg Documented By: Admin: 07/17/24 21:25 Dose: 40 mg Documented By: Admin: 07/17/24 08:47 Dose: 40 mg Documented By: Admin: 07/17/24 01:28 Dose: Not Given Documented By: [place] Gabapentin (Gabapentin 300 Mg Cap) 300 mg PO HS [facility] Stop: 08/16/24 20:59 Last Admin: 07/17/24 21:24 Dose: 300 mg Documented By: SAMIA Hydrochlorothiazide (Hydrochlorothiazide 25 Mg Tab) 12.5 mg PO DAILY RAVI Stop: 08/16/24 08:59 Last Admin: 07/18/24 10:59 Dose: 12.5 mg Documented By: Admin: 07/17/24 08:48 Dose: 12.5 mg Documented By: SALOMÓN Lamotrigine (Lamotrigine 100 Mg Tab) 200 mg PO BID [facility]; Protocol Stop: 08/16/24 20:59 Last Admin: 07/18/24 07:54 Dose: 200 mg Documented By: Admin: 07/17/24 21:24 Dose: 200 mg Documented By: SAMIA Levothyroxine Sodium ([facility]othyroxine S[facility] 200 Mcg Tablet) [facility]: 08/17/24 06:29 Last Admin: 07/18/24 05:47 Dose: 200 mcg Documented By: SAMIA Losartan Potassium (Losartan Potassium 50 Mg Tab) 100 mg PO DAILY RAVI Stop: 08/16/24 08:59 Last Admin: 07/18/24 07:55 Dose: 100 mg Documented By: Admin: 07/17/24 08:48 Dose: 100 mg Documented By: SALOMÓN Melatonin (Melatonin 3 Mg Tab) 5 mg PO HS PRN PRN Reason: Sleep Stop: 08/16/24 01:07 Last Admin: 07/17/24 01:27 Dose: 5 mg Documented By: [place] Mirtazapine (Mirtazapine Tab 15 Mg Tab) 30 mg PO HS [facility] Stop: 08/16/24 20:59 Last Admin: 07/17/24 21:24 Dose: 30 mg Documented By: SAMIA Montelukast Sodium (Montelukast Sodium 10 Mg Tablet) 10 mg PO HS [facility] Stop: 08/16/24 20:59 Last Admin: 07/17/24 21:24 Dose: 10 mg Documented By: SAMIA Paliperidone (Paliperidone 3 Mg Tabcr) 9 mg PO HS [facility] Stop: 08/16/24 20:59 Last Admin: 07/17/24 21:24 Dose: 9 mg Documented By: SAMIA Perphenazine (Perphenazine 4 Mg Tab) 4 mg PO DAILY RAVI Stop: 08/17/24 08:59 Last Admin: 07/18/24 07:54 Dose: 4 mg Documented By: JOANNE Perphenazine (Perphenazine 4 Mg Tab) 8 mg PO HS RAVI Stop: 08/16/24 20:59 Last Admin: 07/17/24 21:24 Dose: 8 mg Documented By: SAMIA Polyethylene Glycol (Polyethylene (Miralax) 17 Gm Pack) 17 gm PO DAILY PRN PRN Reason: Constipation Stop: 08/16/24 17:13 Last Admin: 07/18/24 04:49 Dose: 17 gm Documented By: SAMIA Potassium Chloride (Potassium Chloride Crtab 20 Meq Tabcr) 40 meq PO DAILY RAVI Stop: 08/17/24 08:59 Last Admin: 07/18/24 10:59 Dose: 40 meq Documented By: JOANNE Rosuvastatin Calcium (Rosuvastatin Calcium 5 Mg Tab) 5 mg PO HS [facility] Stop: 08/16/24 20:59 Last Admin: 07/17/24 21:24 Dose: 5 mg Documented By: SAMIA Sertraline HCl (Sertraline Hcl 100 Mg Tablet) 200 mg PO DAILY RAVI Stop: 08/16/24 08:59 Last Admin: 07/18/24 07:58 Dose: 200 mg Documented By: Admin: 07/17/24 08:47 Dose: 200 mg Documented By: SALOMÓN Sotalol HCl (Sotalol Hcl 80 Mg Tab) 80 mg PO BID RAVI Stop: 08/16/24 20:59 Last Admin: 07/18/24 07:54 Dose: 80 mg Documented By: Admin: 07/17/24 21:24 Dose: 80 mg Documented By: SAMIA Vibegron (Vibegron 75 Mg Tab) 75 mg PO HS [facility] Stop: 08/16/24 20:59 Last Admin: 07/17/24 21:24 Dose: 75 mg Documented By: SAMIA [place] [address] IN/OBS CONSULT LVL 5,80M Patient Type New Diagnoses Psychosocial stressors Z65.8 Falls R29.6 Anxiety and depression F41.9; F32.A Schizoaffective disorder F25.9 Anemia D50.8 Anemia type: iron deficiency Iron deficiency anemia type: other iron deficiency MAURO (obstructive sleep apnea) G47.33 Morbid obesity E66.01 Chronic back pain M54.9; G89.29
[2024-07-18] MEDS: ACETAMINOPHEN 325 MG TAB PO PRN (16:04)
--- NOTE | 2024-07-18 16:50 | Hospitalist Progress Note ---
Date of Service July 18, 2024 Assessment & Plan (1) Suicidal ideation: (2) Asthma: (3) Schizoaffective disorder: (4) History of seizure: (5) Hypertension: (6) Dyslipidemia: (7) Paroxysmal A-fib: Plan Ms. Melton is a 59 year old female that presented to the [facility] with suicidal ideation with intent to overdose. She presented to the hospital on 07/16 as a voluntary 200. Additional PMH with multiple comorbidities including seizure disorder, schizoaffective disorder, asthma, paroxysmal atrial 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, morbid obesity, bipolar disorder, iron deficiency anemia, hypertension, hyperlipidemia, Sjogren syndrome, restless leg syndrome and other medical problems presented 07/17 with suicidal ideation. Patient evaluated by Psychiatry who notes that patient likely has symptoms iso situational stressors. PT/OT ordered and will discuss eligibility for placement or increased support at home given safety concerns #Recurrent falls PT/OT Fall precautions #Suicidal Ideation: #schizoaffective disorder: Patient here with suicidal ideation and reports plan to overdose on her medications. Evalauted by Psych: outpatient referral Takes paliperidone, perphenazine, Zoloft, Cymbalta and Buspar; continue Cymbalta reduced from 50mg daily to 30mg #Asthma: Chronic Uses Breo Ellipta; continue Takes montelukast;continue Wears a BiPap at night; continue per protocol here HS Xopenex PRN #Hypokalemia: K+ on 07/16 here in ED was 3.4; replace with 40 PO KCL Recheck in AM #HTN: #pAF: Chronic Takes HCTZ, Losartan, and Sotolol; continue Has been on anticoagulation in the past; not currently on any #HLD: Chronic Takes low dose rosuvastatin #History of seizure: Takes #Hypothyroidism: Chronic Takes levothyroxine; continue Check TSH with AM labs #OAB: Chronic Takes mirabegron; continue Disposition: PCP: Dr. Salas Code Status: Full Code VTE Prophylaxis: Lovenox SQ Admission and Anticipated Discharge Date Admission Date: July 17, 2024 Subjective Reports feeling upset over phone confiscation given concern of bed bugs and also admission for SI Patient states she does not have SI feelings at this time She reports falling multiple times at home, 3 since discharge from rehab Denies dizziness, chest pain, SOB or other concerns Physical Exam Constitutional: WD/WN, vitals as above Respiratory: normal respiratory effort, lungs clear to auscultation Cardiovascular: RRR, no murmur, no edema Neurologic: PERRL, EOMI, accommodation nl, no face palsy, no dysarthria Results & Data Results & Data Vital Signs (Past 12 Hours) Vital Signs Temp Pulse Resp BP Pulse Ox O2 Del Method 07/18/24 15:10 36.9 C 70 18 134/84 98 Room Air 07/18/24 07:24 36.3 C L 68 18 140/88 100 Room Air Laboratory Results Short CBC 07/18/24 Range/Units 06:06 WBC 8.71 (4.8-10.8) K/ul Hgb 12.1 (12.0-16.0) g/dl Hct 36.6 L (37.0-47.0) % Plt Count 185 (130-400) K/uL BMP 07/18/24 06:06 Sodium 134 L Potassium 3.1 L Chloride 93 L Carbon Dioxide 35 H BUN 11 Creatinine 0.70 Glucose 107 H Calcium 9.6 Urine 07/18/24 Range/Units 00:05 Urine Color Yellow Urine Appearance Clear (Clear) Urine pH 7.0 (4.5-7.5) Ur Specific [place] 1.005 (1.000-1.030) Urine Protein Negative (Negative) Urine Glucose (UA) Negative (Negative) Medications Administered Home Medications Medication Instructions Recorded Confirmed Last Taken duloxetine 30 mg capsule,delayed 30 mg PO DAILY 06/18/22 07/16/24 Unknown release gabapentin 300 mg capsule 300 mg PO HS 06/18/22 07/16/24 Unknown lamotrigine 200 mg tablet 200 mg PO BID 06/18/22 07/16/24 Unknown levocetirizine 5 mg tablet 5 mg PO PM 06/18/22 07/16/24 Unknown losartan 100 mg tablet 100 mg PO DAILY 06/18/22 07/16/24 Unknown mirtazapine 30 mg tablet 30 mg PO HS 06/18/22 07/16/24 Unknown montelukast 10 mg tablet 10 mg PO HS 06/18/22 07/16/24 Unknown paliperidone 9 mg tablet,extended 9 mg PO HS 06/18/22 07/16/24 Unknown release 24 hr perphenazine 8 mg tablet 8 mg PO HS 06/18/22 07/16/24 Unknown potassium chloride 10 mEq 10 meq PO DAILY 06/18/22 07/16/24 Unknown tablet,extended release rosuvastatin 5 mg tablet 5 mg PO HS 06/18/22 07/16/24 Unknown sertraline 100 mg tablet 200 mg PO DAILY 06/18/22 07/16/24 Unknown hydrochlorothiazide 12.5 mg capsule 12.5 mg PO DAILY 06/10/24 07/16/24 Unknown levothyroxine 200 mcg tablet 200 mcg PO DAILY 06/10/24 07/16/24 Unknown fluticasone furoate 50 1 inh inhalation DAILY #60 ea 06/12/24 07/16/24 Unknown mcg-vilanterol 25 mcg/dose inhalation powder (Breo Ellipta) buspirone 15 mg tablet 15 mg PO BID 07/16/24 07/16/24 Unknown furosemide 40 mg tablet 40 mg PO BID 07/16/24 07/16/24 Unknown mirabegron 50 mg tablet,extended 50 mg PO HS 07/16/24 07/16/24 Unknown release 24 hr perphenazine 4 mg tablet 4 mg PO DAILY 07/16/24 07/16/24 Unknown amlodipine 5 mg tablet 5 mg PO BID 07/17/24 07/17/24 Unknown sotalol 80 mg tablet 80 mg PO BID 07/17/24 07/17/24 Unknown Active Medications Generic Name Dose Route Start Last Admin Trade Name Saji PRN Reason Stop Dose Admin Acetaminophen 650 mg 07/17/24 17:14 07/18/24 16:04 Acetaminophen 325 Mg Tab PO 08/16/24 17:13 650 mg Q4H PRN Administration pain/fever Amlodipine Besylate 5 mg 07/17/24 21:00 07/18/24 07:54 Amlodipine Besylate 5 Mg Tab PO 08/16/24 20:59 5 mg BID RAVI Administration Buspirone HCl 15 mg 07/17/24 01:00 07/18/24 07:57 Buspirone 15 Mg Tab PO 08/16/24 00:59 15 mg BID RAVI Administration Cetirizine HCl 10 mg 07/17/24 21:00 07/17/24 21:24 Cetirizine Hcl 10 Mg Tablet PO 08/16/24 20:59 10 mg PM RAVI Administration Duloxetine HCl 30 mg 07/18/24 09:00 07/18/24 07:54 Duloxetine Hcl 30 Mg Cap PO 08/17/24 08:59 30 mg DAILY RAVI Administration Enoxaparin Sodium 40 mg 07/17/24 18:00 07/17/24 18:13 Enoxaparin Inj 40 Mg/0.4 Ml Syr SQ 08/16/24 17:59 40 mg Q24H RAVI Administration Fluticasone/Vilanterol 1 puffs 07/18/24 09:00 07/18/24 07:56 Fluticasone/Vilanterol 100/25mcg 14 Puffs/Inhaler INH 08/17/24 08:59 1 puffs DAILY RAVI Administration Furosemide 40 mg 07/17/24 01:00 07/18/24 10:59 Furosemide 40 Mg Tab PO 08/16/24 00:59 40 mg BID RAVI Administration Gabapentin 300 mg 07/17/24 21:00 07/17/24 21:24 Gabapentin 300 Mg Cap PO 08/16/24 20:59 300 mg HS RAVI Administration Hydrochlorothiazide 12.5 mg 07/17/24 09:00 07/18/24 10:59 Hydrochlorothiazide 25 Mg Tab PO 08/16/24 08:59 12.5 mg DAILY RAVI Administration Lamotrigine 200 mg 07/17/24 21:00 07/18/24 07:54 Lamotrigine 100 Mg Tab PO 08/16/24 20:59 200 mg BID RAVI Administration Protocol Levothyroxine Sodium 200 mcg 07/18/24 06:30 07/18/24 05:47 Levothyroxine Sodium 200 Mcg Tablet PO 08/17/24 06:29 200 mcg DAILYBB RAVI Administration Losartan Potassium 100 mg 07/17/24 09:00 07/18/24 07:55 Losartan Potassium 50 Mg Tab PO 08/16/24 08:59 100 mg DAILY RAVI Administration Melatonin 5 mg 07/17/24 01:08 07/17/24 01:27 Melatonin 3 Mg Tab PO 08/16/24 01:07 5 mg HS PRN Administration Sleep Mirtazapine 30 mg 07/17/24 21:00 07/17/24 21:24 Mirtazapine Tab 15 Mg Tab PO 08/16/24 20:59 30 mg HS RAVI Administration Montelukast Sodium 10 mg 07/17/24 21:00 07/17/24 21:24 Montelukast Sodium 10 Mg Tablet PO 08/16/24 20:59 10 mg HS RAVI Administration Paliperidone 9 mg 07/17/24 21:00 07/17/24 21:24 Paliperidone 3 Mg Tabcr PO 08/16/24 20:59 9 mg HS RAVI Administration Perphenazine 4 mg 07/18/24 09:00 07/18/24 07:54 Perphenazine 4 Mg Tab PO 08/17/24 08:59 4 mg DAILY RAVI Administration Perphenazine 8 mg 07/17/24 21:00 07/17/24 21:24 Perphenazine 4 Mg Tab PO 08/16/24 20:59 8 mg HS RAVI Administration Polyethylene Glycol 17 gm 07/17/24 17:14 07/18/24 04:49 Polyethylene (Miralax) 17 Gm Pack PO 08/16/24 17:13 17 gm DAILY PRN Administration Constipation Potassium Chloride 40 meq 07/18/24 09:00 07/18/24 10:59 Potassium Chloride Crtab 20 Meq Tabcr PO 08/17/24 08:59 40 meq DAILY RAVI Administration Rosuvastatin Calcium 5 mg 07/17/24 21:00 07/17/24 21:24 Rosuvastatin Calcium 5 Mg Tab PO 08/16/24 20:59 5 mg HS RAVI Administration Sertraline HCl 200 mg 07/17/24 09:00 07/18/24 07:58 Sertraline Hcl 100 Mg Tablet PO 08/16/24 08:59 200 mg DAILY RAVI Administration Sotalol HCl 80 mg 07/17/24 21:00 07/18/24 07:54 Sotalol Hcl 80 Mg Tab PO 08/16/24 20:59 80 mg BID RAVI Administration Vibegron 75 mg 07/17/24 21:00 07/17/24 21:24 Vibegron 75 Mg Tab PO 08/16/24 20:59 75 mg HS RAVI Administration
[2024-07-18] MEDS: KETOROLAC TROMETHAMINE 15 MG/ML VIAL IV ONE (17:19)
--- NOTE | 2024-07-18 21:37 | Electrocardiogram Report ---
Test Reason : Blood Pressure : */* mmHG Vent. Rate : 74 BPM Atrial Rate : 74 BPM P-R Int : 130 ms QRS Dur : 80 ms QT Int : 426 ms P-R-T Axes : 60 23 74 degrees QTcB Int : 473 ms Poor data quality, interpretation may be adversely affected Normal sinus rhythm Nonspecific ST and T wave abnormality Abnormal ECG When compared with ECG of 10-Jun-2024 02:38, Nonspecific T wave abnormality is now present in Anterior leads Confirmed by Edi Alvarez ([id number]) on 07/18/2024 9:37:20 PM Referred By: REFERRED SELF Confirmed By: Edi Alvarez
[2024-07-19 08:23] LABS: Hematocrit (blood only) 34.4 % (37.0-47.0); Hemoglobin 11.2 g/dl (12.0-16.0); Mean Corpuscular Hgb Conc 32.6 g/dL (32.0-36.0); Mean Corpuscular Volume 92.2 fL (80.0-100.0); Mean Platelet Volume 11.3 fL (9.4-12.4); Platelet Count 176 K/uL (130-400); RDW Coefficient of Variation 13.9 % (11.5-14.5); RDW Standard Deviation 46.9 fL (36.4-46.3); Red Blood Count 3.73 M/uL (4.20-5.40)
[2024-07-19 08:37] LABS: BUN Creatinine Ratio 14.5 (10-20); Calcium 9.2 mg/dl (8.6-10.3); Creatinine Clr Calc Pharmacy 116.6 ml/min; Magnesium 1.7 mg/dl (1.7-2.4); Phosphorus 3.2 mg/dl (2.5-4.9); Potassium 3.2 mmol/L (3.5-5.1)
--- NOTE | 2024-07-19 17:18 | Hospitalist Progress Note ---
Date of Service July 19, 2024 Assessment & Plan (1) Suicidal ideation: (2) Asthma: (3) Schizoaffective disorder: (4) History of seizure: (5) Hypertension: (6) Dyslipidemia: (7) Paroxysmal A-fib: Plan Ms. Melton is a 59 year old female that presented to the [facility] with suicidal ideation with intent to overdose. She presented to the hospital on 07/16 as a voluntary 200. Additional PMH with multiple comorbidities including seizure disorder, schizoaffective disorder, asthma, paroxysmal atrial 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, morbid obesity, bipolar disorder, iron deficiency anemia, hypertension, hyperlipidemia, Sjogren syndrome, restless leg syndrome and other medical problems presented 07/17 with suicidal ideation. Patient evaluated by Psychiatry who notes that patient likely has symptoms iso situational stressors. PT/OT ordered and will discuss eligibility for placement or increased support at home given safety concerns #bed bug infestation s/p decontamination contact precautions #Recurrent falls PT/OT: rehab Fall precautions #Suicidal Ideation: #schizoaffective disorder: Patient here with suicidal ideation and reports plan to overdose on her medications. Evalauted by Psych: outpatient referral Takes paliperidone, perphenazine, Zoloft, Cymbalta and Buspar; continue Cymbalta reduced from 50mg daily to 30mg, continue #Asthma: Chronic Uses Breo Ellipta; continue Takes montelukast;continue Wears a BiPap at night; continue per protocol here HS Xopenex PRN #Hypokalemia: K+ on 07/16 here in ED was 3.4; replace with 40 PO KCL Increase K PO BID repeat bmp in am #HTN: #pAF: Chronic Takes HCTZ, Losartan, and Sotolol; continue Has been on anticoagulation in the past; not currently on any #HLD: Chronic Takes low dose rosuvastatin #History of seizure: Takes #Hypothyroidism: Chronic Takes levothyroxine; continue Check TSH with AM labs #OAB: Chronic Takes mirabegron; continue Disposition: PCP: Dr. Salas Code Status: Full Code VTE Prophylaxis: Lovenox SQ Admission and Anticipated Discharge Date Admission Date: July 17, 2024 Subjective Patient initially anxious but able to get phone for patient given concerns of bed bugs once received phone, patient in much better spirits Patient scared about next steps from hospital and not safe at current home--understands that the search for [facility] Physical Exam Constitutional: WD/WN, vitals as above Respiratory: normal respiratory effort, lungs clear to auscultation Cardiovascular: RRR, no murmur, no edema Results & Data Results & Data Vital Signs (Past 12 Hours) Vital Signs Temp Pulse Resp BP Pulse Ox O2 Del Method 07/19/24 15:01 36.5 C 62 20 123/66 94 Room Air 07/19/24 07:55 36.5 C 67 20 169/83 H 95 Room Air 07/19/24 07:50 Room Air Laboratory Results Short CBC 07/19/24 Range/Units 07:05 WBC 8.20 (4.8-10.8) K/ul Hgb 11.2 L (12.0-16.0) g/dl Hct 34.4 L (37.0-47.0) % Plt Count 176 (130-400) K/uL BMP 07/19/24 07:05 Sodium 135 L Potassium 3.2 L Chloride 94 L Carbon Dioxide 37 H BUN 10 Creatinine 0.69 Glucose 120 H Calcium 9.2 Medications Administered Home Medications Medication Instructions Recorded Confirmed Last Taken duloxetine 30 mg capsule,delayed 30 mg PO DAILY 06/18/22 07/16/24 Unknown release gabapentin 300 mg capsule 300 mg PO HS 06/18/22 07/16/24 Unknown lamotrigine 200 mg tablet 200 mg PO BID 06/18/22 07/16/24 Unknown levocetirizine 5 mg tablet 5 mg PO PM 06/18/22 07/16/24 Unknown losartan 100 mg tablet 100 mg PO DAILY 06/18/22 07/16/24 Unknown mirtazapine 30 mg tablet 30 mg PO HS 06/18/22 07/16/24 Unknown montelukast 10 mg tablet 10 mg PO HS 06/18/22 07/16/24 Unknown paliperidone 9 mg tablet,extended 9 mg PO HS 06/18/22 07/16/24 Unknown release 24 hr perphenazine 8 mg tablet 8 mg PO HS 06/18/22 07/16/24 Unknown potassium chloride 10 mEq 10 meq PO DAILY 06/18/22 07/16/24 Unknown tablet,extended release rosuvastatin 5 mg tablet 5 mg PO HS 06/18/22 07/16/24 Unknown sertraline 100 mg tablet 200 mg PO DAILY 06/18/22 07/16/24 Unknown hydrochlorothiazide 12.5 mg capsule 12.5 mg PO DAILY 06/10/24 07/16/24 Unknown levothyroxine 200 mcg tablet 200 mcg PO DAILY 06/10/24 07/16/24 Unknown fluticasone furoate 50 1 inh inhalation DAILY #60 ea 06/12/24 07/16/24 Unknown mcg-vilanterol 25 mcg/dose inhalation powder (Breo Ellipta) buspirone 15 mg tablet 15 mg PO BID 07/16/24 07/16/24 Unknown furosemide 40 mg tablet 40 mg PO BID 07/16/24 07/16/24 Unknown mirabegron 50 mg tablet,extended 50 mg PO HS 07/16/24 07/16/24 Unknown release 24 hr perphenazine 4 mg tablet 4 mg PO DAILY 07/16/24 07/16/24 Unknown amlodipine 5 mg tablet 5 mg PO BID 07/17/24 07/17/24 Unknown sotalol 80 mg tablet 80 mg PO BID 07/17/24 07/17/24 Unknown Active Medications Generic Name Dose Route Start Last Admin Trade Name Freq PRN Reason Stop Dose Admin Acetaminophen 650 mg 07/17/24 17:14 07/19/24 15:01 Acetaminophen 325 Mg Tab PO 08/16/24 17:13 650 mg Q4H PRN Administration pain/fever Amlodipine Besylate 5 mg 07/17/24 21:00 07/19/24 08:01 Amlodipine Besylate 5 Mg Tab PO 08/16/24 20:59 5 mg BID RAVI Administration Buspirone HCl 15 mg 07/17/24 01:00 07/19/24 08:01 Buspirone 15 Mg Tab PO 08/16/24 00:59 15 mg BID RAVI Administration Cetirizine HCl 10 mg 07/17/24 21:00 07/18/24 21:04 Cetirizine Hcl 10 Mg Tablet PO 08/16/24 20:59 10 mg PM RAVI Administration Duloxetine HCl 30 mg 07/18/24 09:00 07/19/24 08:01 Duloxetine Hcl 30 Mg Cap PO 08/17/24 08:59 30 mg DAILY RAVI Administration Enoxaparin Sodium 40 mg 07/17/24 18:00 07/18/24 17:18 Enoxaparin Inj 40 Mg/0.4 Ml Syr SQ 08/16/24 17:59 40 mg Q24H RAVI Administration Fluticasone/Vilanterol 1 puffs 07/18/24 09:00 07/19/24 08:01 Fluticasone/Vilanterol 100/25mcg 14 Puffs/Inhaler INH 08/17/24 08:59 1 puffs DAILY RAVI Administration Furosemide 40 mg 07/17/24 01:00 07/19/24 08:01 Furosemide 40 Mg Tab PO 08/16/24 00:59 40 mg BID RAVI Administration Gabapentin 300 mg 07/17/24 21:00 07/18/24 21:05 Gabapentin 300 Mg Cap PO 08/16/24 20:59 300 mg HS RAVI Administration Hydrochlorothiazide 12.5 mg 07/17/24 09:00 07/19/24 07:59 Hydrochlorothiazide 25 Mg Tab PO 08/16/24 08:59 12.5 mg DAILY RAVI Administration Lamotrigine 200 mg 07/17/24 21:00 07/19/24 08:00 Lamotrigine 100 Mg Tab PO 08/16/24 20:59 200 mg BID RAIV Administration Protocol Levothyroxine Sodium 200 mcg 07/18/24 06:30 07/19/24 05:24 Levothyroxine Sodium 200 Mcg Tablet PO 08/17/24 06:29 200 mcg DAILYBB RAVI Administration Losartan Potassium 100 mg 07/17/24 09:00 07/19/24 08:00 Losartan Potassium 50 Mg Tab PO 08/16/24 08:59 100 mg DAILY RAVI Administration Melatonin 5 mg 07/17/24 01:08 07/17/24 01:27 Melatonin 3 Mg Tab PO 08/16/24 01:07 5 mg HS PRN Administration Sleep Mirtazapine 30 mg 07/17/24 21:00 07/18/24 21:04 Mirtazapine Tab 15 Mg Tab PO 08/16/24 20:59 30 mg HS RAVI Administration Montelukast Sodium 10 mg 07/17/24 21:00 07/18/24 21:05 Montelukast Sodium 10 Mg Tablet PO 08/16/24 20:59 10 mg HS RAVI Administration Paliperidone 9 mg 07/17/24 21:00 07/18/24 21:04 Paliperidone 3 Mg Tabcr PO 08/16/24 20:59 9 mg HS RAVI Administration Perphenazine 4 mg 07/18/24 09:00 07/19/24 08:00 Perphenazine 4 Mg Tab PO 08/17/24 08:59 4 mg DAILY RAVI Administration Perphenazine 8 mg 07/17/24 21:00 07/18/24 21:05 Perphenazine 4 Mg Tab PO 08/16/24 20:59 8 mg HS RAVI Administration Polyethylene Glycol 17 gm 07/17/24 17:14 07/18/24 04:49 Polyethylene (Miralax) 17 Gm Pack PO 08/16/24 17:13 17 gm DAILY PRN Administration Constipation Potassium Chloride 40 meq 07/18/24 21:00 07/19/24 08:13 Potassium Chloride Crtab 20 Meq Tabcr PO 08/17/24 20:59 40 meq BID RAVI Administration Rosuvastatin Calcium 5 mg 07/17/24 21:00 07/18/24 21:05 Rosuvastatin Calcium 5 Mg Tab PO 08/16/24 20:59 5 mg HS RAVI Administration Sertraline HCl 200 mg 07/17/24 09:00 07/19/24 08:00 Sertraline Hcl 100 Mg Tablet PO 08/16/24 08:59 200 mg DAILY RAVI Administration Sotalol HCl 80 mg 07/17/24 21:00 07/19/24 08:02 Sotalol Hcl 80 Mg Tab PO 08/16/24 20:59 80 mg BID RAVI Administration Vibegron 75 mg 07/17/24 21:00 07/18/24 21:05 Vibegron 75 Mg Tab PO 08/16/24 20:59 75 mg HS RAVI Administration
[2024-07-20 07:18] LABS: BUN Creatinine Ratio 19.8 (10-20); Calcium 9.1 mg/dl (8.6-10.3); Creatinine Clr Calc Pharmacy 98.1 ml/min; Potassium 3.6 mmol/L (3.5-5.1)
--- NOTE | 2024-07-20 16:42 | Hospitalist Progress Note ---
Date of Service July 20, 2024 Assessment & Plan (1) Suicidal ideation: (2) Asthma: (3) Schizoaffective disorder: (4) History of seizure: (5) Hypertension: (6) Dyslipidemia: (7) Paroxysmal A-fib: Plan Ms. Melton is a 59 year old female that presented to the [facility] with suicidal ideation with intent to overdose. She presented to the hospital on 07/16 as a voluntary 200. Additional PMH with multiple comorbidities including seizure disorder, schizoaffective disorder, asthma, paroxysmal atrial 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, morbid obesity, bipolar disorder, iron deficiency anemia, hypertension, hyperlipidemia, Sjogren syndrome, restless leg syndrome and other medical problems presented 07/17 with suicidal ideation. Patient evaluated by Psychiatry who notes that patient likely has symptoms iso situational stressors. PT/OT ordered and will discuss eligibility for placement or increased support at home given safety concerns Plan tenatively seems to be to rehab while search for [facility] ensues #bed bug infestation s/p decontamination contact precautions lifted, patient can ambulate freely #Recurrent falls PT/OT: rehab Fall precautions #Suicidal Ideation: #schizoaffective disorder: Patient here with suicidal ideation and reports plan to overdose on her medications. Evalauted by Psych: outpatient referral Takes paliperidone, perphenazine, Zoloft, Cymbalta and Buspar; continue Cymbalta reduced from 50mg daily to 30mg, continue #Asthma: Chronic Uses Breo Ellipta; continue Takes montelukast;continue Wears a BiPap at night; continue per protocol here HS Xopenex PRN #Hypokalemia: K+ on 07/16 here in ED was 3.4; replace with 40 PO KCL Increase K PO BID repeat bmp in am #HTN: #pAF: Chronic Takes HCTZ, Losartan, and Sotolol; continue Has been on anticoagulation in the past; not currently on any #HLD: Chronic Takes low dose rosuvastatin #History of seizure: Takes #Hypothyroidism: Chronic Takes levothyroxine; continue Check TSH with AM labs #OAB: Chronic Takes mirabegron; continue Disposition: PCP: Dr. Salas Code Status: Full Code VTE Prophylaxis: Lovenox SQ Admission and Anticipated Discharge Date Admission Date: July 17, 2024 Subjective Upset today given bedbug situation--helped reassure patient and she verbalized understanding of situation Denies any new concerns today, but reports feeling nervous over discharge planning Physical Exam Constitutional: WD/WN, vitals as above Respiratory: normal respiratory effort, lungs clear to auscultation Cardiovascular: RRR, no murmur, no edema Neurologic: PERRL, EOMI, accommodation nl, no face palsy, no dysarthria Results & Data Results & Data Vital Signs (Past 12 Hours) Vital Signs Temp Pulse Resp BP Pulse Ox O2 Del Method 07/20/24 08:05 36.7 C 75 22 148/88 H 93 Room Air
--- NOTE | 2024-07-21 13:14 | Hospitalist Progress Note ---
Date of Service July 21, 2024 Assessment & Plan (1) Suicidal ideation: (2) Asthma: (3) Schizoaffective disorder: (4) History of seizure: (5) Hypertension: (6) Dyslipidemia: (7) Paroxysmal A-fib: Plan Ms. Melton is a 59 year old female that presented to the [facility] with suicidal ideation with intent to overdose. She presented to the hospital on 07/16 as a voluntary 200. Additional PMH with multiple comorbidities including seizure disorder, schizoaffective disorder, asthma, paroxysmal atrial 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, morbid obesity, bipolar disorder, iron deficiency anemia, hypertension, hyperlipidemia, Sjogren syndrome, restless leg syndrome and other medical problems presented 07/17 with suicidal ideation. Patient evaluated by Psychiatry who notes that patient likely has symptoms iso situational stressors. PT/OT recommends rehab at this time Plan tentatively seems to be to rehab while search for H ensues No active changes to plan #bed bug infestation s/p decontamination contact precautions lifted, patient can ambulate freely #Recurrent falls PT/OT: rehab Fall precautions #Suicidal Ideation: #schizoaffective disorder: Patient here with suicidal ideation and reports plan to overdose on her medications. Evalauted by Psych: outpatient referral Takes paliperidone, perphenazine, Zoloft, Cymbalta and Buspar; continue Cymbalta reduced from 50mg daily to 30mg, continue #Asthma: Chronic Uses Breo Ellipta; continue Takes montelukast;continue Wears a BiPap at night; continue per protocol here HS Xopenex PRN #Hypokalemia: K+ on 07/16 here in ED was 3.4; replace with 40 PO KCL Increase K PO BID repeat bmp in am #HTN: #pAF: Chronic Takes HCTZ, Losartan, and Sotolol; continue Has been on anticoagulation in the past; not currently on any #HLD: Chronic Takes low dose rosuvastatin #History of seizure: Takes #Hypothyroidism: Chronic Takes levothyroxine; continue TSH 7.083, question if patient taking properly will reassess #OAB: Chronic Takes mirabegron; continue Disposition: PCP: Dr. Salas Code Status: Full Code VTE Prophylaxis: Lovenox SQ Admission and Anticipated Discharge Date Admission Date: July 17, 2024 Subjective NAEO Upset over breakfast, denies any new physical concerns Reports that she is more anxious over next transitions Physical Exam Constitutional: WD/WN, vitals as above Respiratory: normal respiratory effort, lungs clear to auscultation Cardiovascular: RRR, no murmur, no edema Results & Data Results & Data Vital Signs (Past 12 Hours) Vital Signs Temp Pulse Resp BP Pulse Ox O2 Del Method 07/21/24 07:04 36.7 C 71 16 135/85 93 Room Air Medications Administered Home Medications Medication Instructions Recorded Confirmed Last Taken duloxetine 30 mg capsule,delayed 30 mg PO DAILY 06/18/22 07/16/24 Unknown release gabapentin 300 mg capsule 300 mg PO HS 06/18/22 07/16/24 Unknown lamotrigine 200 mg tablet 200 mg PO BID 06/18/22 07/16/24 Unknown levocetirizine 5 mg tablet 5 mg PO PM 06/18/22 07/16/24 Unknown losartan 100 mg tablet 100 mg PO DAILY 06/18/22 07/16/24 Unknown mirtazapine 30 mg tablet 30 mg PO HS 06/18/22 07/16/24 Unknown montelukast 10 mg tablet 10 mg PO HS 06/18/22 07/16/24 Unknown paliperidone 9 mg tablet,extended 9 mg PO HS 06/18/22 07/16/24 Unknown release 24 hr perphenazine 8 mg tablet 8 mg PO HS 06/18/22 07/16/24 Unknown potassium chloride 10 mEq 10 meq PO DAILY 06/18/22 07/16/24 Unknown tablet,extended release rosuvastatin 5 mg tablet 5 mg PO HS 06/18/22 07/16/24 Unknown sertraline 100 mg tablet 200 mg PO DAILY 06/18/22 07/16/24 Unknown hydrochlorothiazide 12.5 mg capsule 12.5 mg PO DAILY 06/10/24 07/16/24 Unknown levothyroxine 200 mcg tablet 200 mcg PO DAILY 06/10/24 07/16/24 Unknown fluticasone furoate 50 1 inh inhalation DAILY #60 ea 06/12/24 07/16/24 Unknown mcg-vilanterol 25 mcg/dose inhalation powder (Breo Ellipta) buspirone 15 mg tablet 15 mg PO BID 07/16/24 07/16/24 Unknown furosemide 40 mg tablet 40 mg PO BID 07/16/24 07/16/24 Unknown mirabegron 50 mg tablet,extended 50 mg PO HS 07/16/24 07/16/24 Unknown release 24 hr perphenazine 4 mg tablet 4 mg PO DAILY 07/16/24 07/16/24 Unknown amlodipine 5 mg tablet 5 mg PO BID 07/17/24 07/17/24 Unknown sotalol 80 mg tablet 80 mg PO BID 07/17/24 07/17/24 Unknown Active Medications Generic Name Dose Route Start Last Admin Trade Name Freq PRN Reason Stop Dose Admin Acetaminophen 650 mg 07/17/24 17:14 07/19/24 15:01 Acetaminophen 325 Mg Tab PO 08/16/24 17:13 650 mg Q4H PRN Administration pain/fever Amlodipine Besylate 5 mg 07/17/24 21:00 07/21/24 08:36 Amlodipine Besylate 5 Mg Tab PO 08/16/24 20:59 5 mg BID RAVI Administration Buspirone HCl 15 mg 07/17/24 01:00 07/21/24 08:36 Buspirone 15 Mg Tab PO 08/16/24 00:59 15 mg BID RAVI Administration Cetirizine HCl 10 mg 07/17/24 21:00 07/20/24 21:06 Cetirizine Hcl 10 Mg Tablet PO 08/16/24 20:59 10 mg PM RAVI Administration Duloxetine HCl 30 mg 07/18/24 09:00 07/21/24 08:36 Duloxetine Hcl 30 Mg Cap PO 08/17/24 08:59 30 mg DAILY RAVI Administration Enoxaparin Sodium 40 mg 07/17/24 18:00 07/20/24 18:44 Enoxaparin Inj 40 Mg/0.4 Ml Syr SQ 08/16/24 17:59 40 mg Q24H RAVI Administration Fluticasone/Vilanterol 1 puffs 07/18/24 09:00 07/21/24 08:36 Fluticasone/Vilanterol 100/25mcg 14 Puffs/Inhaler INH 08/17/24 08:59 1 puffs DAILY RAVI Administration Furosemide 40 mg 07/17/24 01:00 07/21/24 08:36 Furosemide 40 Mg Tab PO 08/16/24 00:59 40 mg BID RAVI Administration Gabapentin 300 mg 07/17/24 21:00 07/20/24 21:06 Gabapentin 300 Mg Cap PO 08/16/24 20:59 300 mg HS RAVI Administration Hydrochlorothiazide 12.5 mg 07/17/24 09:00 07/21/24 08:37 Hydrochlorothiazide 25 Mg Tab PO 08/16/24 08:59 12.5 mg DAILY RAVI Administration Lamotrigine 200 mg 07/17/24 21:00 07/21/24 08:35 Lamotrigine 100 Mg Tab PO 08/16/24 20:59 200 mg BID RAVI Administration Protocol Levothyroxine Sodium 200 mcg 07/18/24 06:30 07/21/24 06:17 Levothyroxine Sodium 200 Mcg Tablet PO 08/17/24 06:29 200 mcg DAILYBB RAIV Administration Losartan Potassium 100 mg 07/17/24 09:00 07/21/24 08:35 Losartan Potassium 50 Mg Tab PO 08/16/24 08:59 100 mg DAILY RAVI Administration Melatonin 5 mg 07/17/24 01:08 07/17/24 01:27 Melatonin 3 Mg Tab PO 08/16/24 01:07 5 mg HS PRN Administration Sleep Mirtazapine 30 mg 07/17/24 21:00 07/20/24 21:06 Mirtazapine Tab 15 Mg Tab PO 08/16/24 20:59 30 mg HS RAVI Administration Montelukast Sodium 10 mg 07/17/24 21:00 07/20/24 21:06 Montelukast Sodium 10 Mg Tablet PO 08/16/24 20:59 10 mg HS RAVI Administration Paliperidone 9 mg 07/17/24 21:00 07/20/24 21:05 Paliperidone 3 Mg Tabcr PO 08/16/24 20:59 9 mg HS RAVI Administration Perphenazine 4 mg 07/18/24 09:00 07/21/24 08:35 Perphenazine 4 Mg Tab PO 08/17/24 08:59 4 mg DAILY RAVI Administration Perphenazine 8 mg 07/17/24 21:00 07/20/24 21:06 Perphenazine 4 Mg Tab PO 08/16/24 20:59 8 mg HS RAVI Administration Polyethylene Glycol 17 gm 07/17/24 17:14 07/18/24 04:49 Polyethylene (Miralax) 17 Gm Pack PO 08/16/24 17:13 17 gm DAILY PRN Administration Constipation Potassium Chloride 40 meq 07/18/24 21:00 07/21/24 08:34 Potassium Chloride Crtab 20 Meq Tabcr PO 08/17/24 20:59 40 meq BID RAVI Administration Rosuvastatin Calcium 5 mg 07/17/24 21:00 07/20/24 21:06 Rosuvastatin Calcium 5 Mg Tab PO 08/16/24 20:59 5 mg HS RAVI Administration Sertraline HCl 200 mg 07/17/24 09:00 07/21/24 08:35 Sertraline Hcl 100 Mg Tablet PO 08/16/24 08:59 200 mg DAILY RAVI Administration Sotalol HCl 80 mg 07/17/24 21:00 07/21/24 08:34 Sotalol Hcl 80 Mg Tab PO 08/16/24 20:59 80 mg BID RAVI Administration Vibegron 75 mg 07/17/24 21:00 07/20/24 21:06 Vibegron 75 Mg Tab PO 08/16/24 20:59 75 mg HS RAVI Administration
[2024-07-21] MEDS: DICLOFENAC SOD 1% GEL 100 GM TUBE EXT SCH (15:12)
[2024-07-22 07:13] LABS: BUN Creatinine Ratio 19.2 (10-20); Calcium 9.7 mg/dl (8.6-10.3); Creatinine Clr Calc Pharmacy 110.2 ml/min; Potassium 3.5 mmol/L (3.5-5.1)
--- NOTE | 2024-07-22 09:23 | Hospitalist Progress Note ---
Date of Service July 22, 2024 Assessment & Plan (1) Suicidal ideation: (2) Asthma: (3) Schizoaffective disorder: (4) History of seizure: (5) Hypertension: (6) Dyslipidemia: (7) Paroxysmal A-fib: Plan Ms. Melton is a 59 year old female that presented to the [facility] with suicidal ideation with intent to overdose. She presented to the hospital on 07/16 as a voluntary 200. Additional PMH with multiple comorbidities including seizure disorder, schizoaffective disorder, asthma, paroxysmal atrial 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, morbid obesity, bipolar disorder, iron deficiency anemia, hypertension, hyperlipidemia, Sjogren syndrome, restless leg syndrome and other medical problems presented 07/17 with suicidal ideation. Patient evaluated by Psychiatry who notes that patient likely has symptoms iso situational stressors. PT/OT recommends rehab at this time Plan tentatively seems to be to rehab while search for H ensues No active changes to plan #bed bug infestation s/p decontamination contact precautions lifted, patient can ambulate freely #Recurrent falls PT/OT: rehab Fall precautions #Suicidal Ideation: #schizoaffective disorder: Patient here with suicidal ideation and reports plan to overdose on her medications. Evalauted by Psych: outpatient referral Takes paliperidone, perphenazine, Zoloft, Cymbalta and Buspar; continue Cymbalta reduced from 50mg daily to 30mg, continue #Asthma: Chronic Uses Breo Ellipta; continue Takes montelukast;continue Wears a BiPap at night; continue per protocol here HS Xopenex PRN #Hypokalemia: K+ on 07/16 here in ED was 3.4; replace with 40 PO KCL Increase K PO BID repeat bmp in am #HTN: #pAF: Chronic Takes HCTZ, Losartan, and Sotolol; continue Has been on anticoagulation in the past; not currently on any #HLD: Chronic Takes low dose rosuvastatin #History of seizure: Takes #Hypothyroidism: Chronic Takes levothyroxine; continue TSH 7.083, question if patient taking properly will reassess #OAB: Chronic Takes mirabegron; continue Disposition: PCP: Dr. Salas Code Status: Full Code VTE Prophylaxis: Lovenox SQ Admission and Anticipated Discharge Date Admission Date: July 17, 2024 Subjective NAEO denies any new concerns Physical Exam Constitutional: WD/WN, vitals as above Respiratory: normal respiratory effort, lungs clear to auscultation Cardiovascular: RRR, no murmur, no edema Neurologic: PERRL, EOMI, accommodation nl, no face palsy, no dysarthria Results & Data Results & Data Vital Signs (Past 12 Hours) Vital Signs Temp Pulse Resp BP Pulse Ox O2 Del Method 07/22/24 08:56 36.3 C L 81 20 123/77 98 Room Air Laboratory Results [facility] 07/22/24 06:20 Sodium 138 Potassium 3.5 Chloride 96 L Carbon Dioxide 38 H BUN 14 Creatinine 0.73 Glucose 93 Calcium 9.7 Medications Administered Home Medications Medication Instructions Recorded Confirmed Last Taken duloxetine 30 mg capsule,delayed 30 mg PO DAILY 06/18/22 07/16/24 Unknown release gabapentin 300 mg capsule 300 mg PO HS 06/18/22 07/16/24 Unknown lamotrigine 200 mg tablet 200 mg PO BID 06/18/22 07/16/24 Unknown levocetirizine 5 mg tablet 5 mg PO PM 06/18/22 07/16/24 Unknown losartan 100 mg tablet 100 mg PO DAILY 06/18/22 07/16/24 Unknown mirtazapine 30 mg tablet 30 mg PO HS 06/18/22 07/16/24 Unknown montelukast 10 mg tablet 10 mg PO HS 06/18/22 07/16/24 Unknown paliperidone 9 mg tablet,extended 9 mg PO HS 06/18/22 07/16/24 Unknown release 24 hr perphenazine 8 mg tablet 8 mg PO HS 06/18/22 07/16/24 Unknown potassium chloride 10 mEq 10 meq PO DAILY 06/18/22 07/16/24 Unknown tablet,extended release rosuvastatin 5 mg tablet 5 mg PO HS 06/18/22 07/16/24 Unknown sertraline 100 mg tablet 200 mg PO DAILY 06/18/22 07/16/24 Unknown hydrochlorothiazide 12.5 mg capsule 12.5 mg PO DAILY 06/10/24 07/16/24 Unknown levothyroxine 200 mcg tablet 200 mcg PO DAILY 06/10/24 07/16/24 Unknown fluticasone furoate 50 1 inh inhalation DAILY #60 ea 06/12/24 07/16/24 Unknown mcg-vilanterol 25 mcg/dose inhalation powder (Breo Ellipta) buspirone 15 mg tablet 15 mg PO BID 07/16/24 07/16/24 Unknown furosemide 40 mg tablet 40 mg PO BID 07/16/24 07/16/24 Unknown mirabegron 50 mg tablet,extended 50 mg PO HS 07/16/24 07/16/24 Unknown release 24 hr perphenazine 4 mg tablet 4 mg PO DAILY 07/16/24 07/16/24 Unknown amlodipine 5 mg tablet 5 mg PO BID 07/17/24 07/17/24 Unknown sotalol 80 mg tablet 80 mg PO BID 07/17/24 07/17/24 Unknown Active Medications Generic Name Dose Route Start Last Admin Trade Name Freq PRN Reason Stop Dose Admin Acetaminophen 650 mg 07/17/24 17:14 07/22/24 08:48 Acetaminophen 325 Mg Tab PO 08/16/24 17:13 650 mg Q4H PRN Administration pain/fever Amlodipine Besylate 5 mg 07/17/24 21:00 07/22/24 08:53 Amlodipine Besylate 5 Mg Tab PO 08/16/24 20:59 5 mg BID RAVI Administration Buspirone HCl 15 mg 07/17/24 01:00 07/22/24 08:54 Buspirone 15 Mg Tab PO 08/16/24 00:59 15 mg BID RAVI Administration Cetirizine HCl 10 mg 07/17/24 21:00 07/21/24 21:10 Cetirizine Hcl 10 Mg Tablet PO 08/16/24 20:59 10 mg PM RAVI Administration Diclofenac Sodium 2 gm 07/21/24 14:30 07/22/24 06:07 Diclofenac Sod 1% Gel 100 Gm Tube EXT 08/20/24 14:29 2 gm Q8H RAVI Administration Protocol Duloxetine HCl 30 mg 07/18/24 09:00 07/22/24 08:54 Duloxetine Hcl 30 Mg Cap PO 08/17/24 08:59 30 mg DAILY RAVI Administration Enoxaparin Sodium 40 mg 07/17/24 18:00 07/21/24 17:44 Enoxaparin Inj 40 Mg/0.4 Ml Syr SQ 08/16/24 17:59 40 mg Q24H RAVI Administration Fluticasone/Vilanterol 1 puffs 07/18/24 09:00 07/22/24 08:48 Fluticasone/Vilanterol 100/25mcg 14 Puffs/Inhaler INH 08/17/24 08:59 1 puffs DAILY RAVI Administration Furosemide 40 mg 07/17/24 01:00 07/22/24 08:54 Furosemide 40 Mg Tab PO 08/16/24 00:59 40 mg BID RAVI Administration Gabapentin 300 mg 07/17/24 21:00 07/21/24 21:10 Gabapentin 300 Mg Cap PO 08/16/24 20:59 300 mg HS RAVI Administration Hydrochlorothiazide 12.5 mg 07/17/24 09:00 07/22/24 08:52 Hydrochlorothiazide 25 Mg Tab PO 08/16/24 08:59 12.5 mg DAILY RAVI Administration Lamotrigine 200 mg 07/17/24 21:00 07/22/24 08:53 Lamotrigine 100 Mg Tab PO 08/16/24 20:59 200 mg BID RAVI Administration Protocol Levothyroxine Sodium 200 mcg 07/18/24 06:30 07/22/24 06:07 Levothyroxine Sodium 200 Mcg Tablet PO 08/17/24 06:29 200 mcg DAILYBB RAVI Administration Losartan Potassium 100 mg 07/17/24 09:00 07/22/24 08:52 Losartan Potassium 50 Mg Tab PO 08/16/24 08:59 100 mg DAILY RAVI Administration Melatonin 5 mg 07/17/24 01:08 07/17/24 01:27 Melatonin 3 Mg Tab PO 08/16/24 01:07 5 mg HS PRN Administration Sleep Mirtazapine 30 mg 07/17/24 21:00 07/21/24 21:10 Mirtazapine Tab 15 Mg Tab PO 08/16/24 20:59 30 mg HS RAVI Administration Montelukast Sodium 10 mg 07/17/24 21:00 07/21/24 21:10 Montelukast Sodium 10 Mg Tablet PO 08/16/24 20:59 10 mg HS RAVI Administration Paliperidone 9 mg 07/17/24 21:00 07/21/24 21:10 Paliperidone 3 Mg Tabcr PO 08/16/24 20:59 9 mg HS RAVI Administration Perphenazine 4 mg 07/18/24 09:00 07/22/24 08:52 Perphenazine 4 Mg Tab PO 08/17/24 08:59 4 mg DAILY RAVI Administration Perphenazine 8 mg 07/17/24 21:00 07/21/24 21:11 Perphenazine 4 Mg Tab PO 08/16/24 20:59 8 mg HS RAVI Administration Polyethylene Glycol 17 gm 07/17/24 17:14 07/18/24 04:49 Polyethylene (Miralax) 17 Gm Pack PO 08/16/24 17:13 17 gm DAILY PRN Administration Constipation Potassium Chloride 40 meq 07/18/24 21:00 07/22/24 08:47 Potassium Chloride Crtab 20 Meq Tabcr PO 08/17/24 20:59 40 meq BID RAVI Administration Rosuvastatin Calcium 5 mg 07/17/24 21:00 07/21/24 21:11 Rosuvastatin Calcium 5 Mg Tab PO 08/16/24 20:59 5 mg HS RAVI Administration Sertraline HCl 200 mg 07/17/24 09:00 07/22/24 08:53 Sertraline Hcl 100 Mg Tablet PO 08/16/24 08:59 200 mg DAILY RAVI Administration Sotalol HCl 80 mg 07/17/24 21:00 07/22/24 08:49 Sotalol Hcl 80 Mg Tab PO 08/16/24 20:59 80 mg BID RAVI Administration Vibegron 75 mg 07/17/24 21:00 07/21/24 21:11 Vibegron 75 Mg Tab PO 08/16/24 20:59 75 mg HS RAVI Administration
[2024-07-22] MEDS: NYSTATIN POWDER 15GM BTL EXT SCH (11:22)
[2024-07-22 14:16] VITALS: RESP 16
[2024-07-23 06:33] LABS: Creatinine Clr Calc Pharmacy 118.3 ml/min
--- NOTE | 2024-07-23 09:45 | Hospitalist Progress Note ---
Date of Service July 23, 2024 Assessment & Plan (1) Suicidal ideation: (2) Asthma: (3) Schizoaffective disorder: (4) History of seizure: (5) Hypertension: (6) Dyslipidemia: (7) Paroxysmal A-fib: Plan Ms. Melton is a 59 year old female that presented to the [facility] with suicidal ideation with intent to overdose. She presented to the hospital on 07/16 as a voluntary 200. Additional PMH with multiple comorbidities including seizure disorder, schizoaffective disorder, asthma, paroxysmal atrial 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, morbid obesity, bipolar disorder, iron deficiency anemia, hypertension, hyperlipidemia, Sjogren syndrome, restless leg syndrome and other medical problems presented 07/17 with suicidal ideation. Patient evaluated by Psychiatry who notes that patient likely has symptoms iso situational stressors. PT/OT recommends rehab at this time No changes to management at this time; case management following for dispo guidance No active changes to plan #bed bug infestation s/p decontamination contact precautions lifted, patient can ambulate freely #Recurrent falls PT/OT: rehab Fall precautions #Suicidal Ideation: #schizoaffective disorder: Patient here with suicidal ideation and reports plan to overdose on her medications. Evalauted by Psych: outpatient referral Takes paliperidone, perphenazine, Zoloft, Cymbalta and Buspar; continue Cymbalta reduced from 50mg daily to 30mg, continue #Asthma: Chronic Uses Breo Ellipta; continue Takes montelukast;continue Wears a BiPap at night; continue per protocol here HS Xopenex PRN #Hypokalemia: K+ on 07/16 here in ED was 3.4; replace with 40 PO KCL Increase K PO BID repeat bmp in am #HTN: #pAF: Chronic Takes HCTZ, Losartan, and Sotolol; continue Has been on anticoagulation in the past; not currently on any #HLD: Chronic Takes low dose rosuvastatin #History of seizure: Takes #Hypothyroidism: Chronic Takes levothyroxine; continue TSH 7.083, question if patient taking properly will reassess #OAB: Chronic Takes mirabegron; continue Disposition: PCP: Dr. Salas Code Status: Full Code VTE Prophylaxis: Lovenox SQ Admission and Anticipated Discharge Date Admission Date: July 17, 2024 Subjective No new concerns. Awaiting for dispo making patient anxious, tried to offer reassurance Physical Exam Constitutional: WD/WN, vitals as above Respiratory: normal respiratory effort, lungs clear to auscultation Cardiovascular: RRR KETAN+ Results & Data Results & Data Vital Signs (Past 12 Hours) Vital Signs Temp Pulse Resp BP Pulse Ox O2 Del Method 07/23/24 07:33 36.7 C 65 16 129/82 97 Room Air Medications Administered Home Medications Medication Instructions Recorded Confirmed Last Taken duloxetine 30 mg capsule,delayed 30 mg PO DAILY 06/18/22 07/16/24 Unknown release gabapentin 300 mg capsule 300 mg PO HS 06/18/22 07/16/24 Unknown lamotrigine 200 mg tablet 200 mg PO BID 06/18/22 07/16/24 Unknown levocetirizine 5 mg tablet 5 mg PO PM 06/18/22 07/16/24 Unknown losartan 100 mg tablet 100 mg PO DAILY 06/18/22 07/16/24 Unknown mirtazapine 30 mg tablet 30 mg PO HS 06/18/22 07/16/24 Unknown montelukast 10 mg tablet 10 mg PO HS 06/18/22 07/16/24 Unknown paliperidone 9 mg tablet,extended 9 mg PO HS 06/18/22 07/16/24 Unknown release 24 hr perphenazine 8 mg tablet 8 mg PO HS 06/18/22 07/16/24 Unknown potassium chloride 10 mEq 10 meq PO DAILY 06/18/22 07/16/24 Unknown tablet,extended release rosuvastatin 5 mg tablet 5 mg PO HS 06/18/22 07/16/24 Unknown sertraline 100 mg tablet 200 mg PO DAILY 06/18/22 07/16/24 Unknown hydrochlorothiazide 12.5 mg capsule 12.5 mg PO DAILY 06/10/24 07/16/24 Unknown levothyroxine 200 mcg tablet 200 mcg PO DAILY 06/10/24 07/16/24 Unknown fluticasone furoate 50 1 inh inhalation DAILY #60 ea 06/12/24 07/16/24 Unknown mcg-vilanterol 25 mcg/dose inhalation powder (Breo Ellipta) buspirone 15 mg tablet 15 mg PO BID 07/16/24 07/16/24 Unknown furosemide 40 mg tablet 40 mg PO BID 07/16/24 07/16/24 Unknown mirabegron 50 mg tablet,extended 50 mg PO HS 07/16/24 07/16/24 Unknown release 24 hr perphenazine 4 mg tablet 4 mg PO DAILY 07/16/24 07/16/24 Unknown amlodipine 5 mg tablet 5 mg PO BID 07/17/24 07/17/24 Unknown sotalol 80 mg tablet 80 mg PO BID 07/17/24 07/17/24 Unknown Active Medications Generic Name Dose Route Start Last Admin Trade Name Jose Luisq PRN Reason Stop Dose Admin Acetaminophen 650 mg 07/17/24 17:14 07/22/24 08:48 Acetaminophen 325 Mg Tab PO 08/16/24 17:13 650 mg Q4H PRN Administration pain/fever Amlodipine Besylate 5 mg 07/17/24 21:00 07/23/24 08:10 Amlodipine Besylate 5 Mg Tab PO 08/16/24 20:59 5 mg BID RAVI Administration Buspirone HCl 15 mg 07/17/24 01:00 07/23/24 08:11 Buspirone 15 Mg Tab PO 08/16/24 00:59 15 mg BID RAVI Administration Cetirizine HCl 10 mg 07/17/24 21:00 07/22/24 21:23 Cetirizine Hcl 10 Mg Tablet PO 08/16/24 20:59 10 mg PM RAVI Administration Diclofenac Sodium 2 gm 07/21/24 14:30 07/23/24 06:26 Diclofenac Sod 1% Gel 100 Gm Tube EXT 08/20/24 14:29 2 gm Q8H RAVI Administration Protocol Duloxetine HCl 30 mg 07/18/24 09:00 07/23/24 08:10 Duloxetine Hcl 30 Mg Cap PO 08/17/24 08:59 30 mg DAILY RAVI Administration Enoxaparin Sodium 40 mg 07/17/24 18:00 07/22/24 17:29 Enoxaparin Inj 40 Mg/0.4 Ml Syr SQ 08/16/24 17:59 40 mg Q24H RAVI Administration Fluticasone/Vilanterol 1 puffs 07/18/24 09:00 07/23/24 08:07 Fluticasone/Vilanterol 100/25mcg 14 Puffs/Inhaler INH 08/17/24 08:59 1 puffs DAILY RAVI Administration Furosemide 40 mg 07/17/24 01:00 07/23/24 08:09 Furosemide 40 Mg Tab PO 08/16/24 00:59 40 mg BID RAVI Administration Gabapentin 300 mg 07/17/24 21:00 07/22/24 21:23 Gabapentin 300 Mg Cap PO 08/16/24 20:59 300 mg HS RAVI Administration Hydrochlorothiazide 12.5 mg 07/17/24 09:00 07/23/24 08:08 Hydrochlorothiazide 25 Mg Tab PO 08/16/24 08:59 12.5 mg DAILY RAVI Administration Lamotrigine 200 mg 07/17/24 21:00 07/23/24 08:11 Lamotrigine 100 Mg Tab PO 08/16/24 20:59 200 mg BID RAVI Administration Protocol Levothyroxine Sodium 200 mcg 07/18/24 06:30 07/23/24 06:26 Levothyroxine Sodium 200 Mcg Tablet PO 08/17/24 06:29 200 mcg DAILYBB RAVI Administration Losartan Potassium 100 mg 07/17/24 09:00 07/23/24 08:10 Losartan Potassium 50 Mg Tab PO 08/16/24 08:59 100 mg DAILY RAVI Administration Melatonin 5 mg 07/17/24 01:08 07/17/24 01:27 Melatonin 3 Mg Tab PO 08/16/24 01:07 5 mg HS PRN Administration Sleep Mirtazapine 30 mg 07/17/24 21:00 07/22/24 21:23 Mirtazapine Tab 15 Mg Tab PO 08/16/24 20:59 30 mg HS RAVI Administration Montelukast Sodium 10 mg 07/17/24 21:00 07/22/24 21:23 Montelukast Sodium 10 Mg Tablet PO 08/16/24 20:59 10 mg HS RAVI Administration Nystatin 1 appln 07/22/24 14:00 07/23/24 06:26 Nystatin Powder 15gm Btl EXT 08/21/24 13:59 1 appln Q8 RAVI Administration Paliperidone 9 mg 07/17/24 21:00 07/22/24 21:24 Paliperidone 3 Mg Tabcr PO 08/16/24 20:59 9 mg HS RAVI Administration Perphenazine 4 mg 07/18/24 09:00 07/23/24 08:09 Perphenazine 4 Mg Tab PO 08/17/24 08:59 4 mg DAILY RAVI Administration Perphenazine 8 mg 07/17/24 21:00 07/22/24 21:24 Perphenazine 4 Mg Tab PO 08/16/24 20:59 8 mg HS RAVI Administration Polyethylene Glycol 17 gm 07/17/24 17:14 07/18/24 04:49 Polyethylene (Miralax) 17 Gm Pack PO 08/16/24 17:13 17 gm DAILY PRN Administration Constipation Potassium Chloride 40 meq 07/18/24 21:00 07/23/24 08:13 Potassium Chloride Crtab 20 Meq Tabcr PO 08/17/24 20:59 40 meq BID RAVI Administration Rosuvastatin Calcium 5 mg 07/17/24 21:00 07/22/24 21:24 Rosuvastatin Calcium 5 Mg Tab PO 08/16/24 20:59 5 mg HS RAVI Administration Sertraline HCl 200 mg 07/17/24 09:00 07/23/24 08:10 Sertraline Hcl 100 Mg Tablet PO 08/16/24 08:59 200 mg DAILY RAVI Administration Sotalol HCl 80 mg 07/17/24 21:00 07/23/24 08:08 Sotalol Hcl 80 Mg Tab PO 08/16/24 20:59 80 mg BID RAVI Administration Vibegron 75 mg 07/17/24 21:00 07/22/24 21:24 Vibegron 75 Mg Tab PO 08/16/24 20:59 75 mg HS RAVI Administration
[2024-07-24 07:12] VITALS: TEMP 97.5; O2SAT 97
[2024-07-24 08:48] VITALS: BP 122/81; PULSE 73
--- NOTE | 2024-07-24 15:29 | Discharge Summary ---
Discharge Summary Date of Service July 24, 2024 Principal Dx & Hospital Course #1 = Principal Diagnosis (1) Suicidal ideation: (2) Asthma: (3) Schizoaffective disorder: (4) History of seizure: (5) Hypertension: (6) Dyslipidemia: (7) Paroxysmal A-fib: Plan Ms. Melton is a 59 year old female that presented to the [facility] with suicidal ideation with intent to overdose. She presented to the hospital on 07/16 as a voluntary 200. Additional PMH with multiple comorbidities including seizure disorder, schizoaffective disorder, asthma, paroxysmal atrial 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, morbid obesity, bipolar disorder, iron deficiency anemia, hypertension, hyperlipidemia, Sjogren syndrome, restless leg syndrome and other medical problems presented 07/17 with suicidal ideation. Patient evaluated by Psychiatry who notes that patient likely has symptoms iso situational stressors. PT/OT recommended rheab but patient ultimately passed goals. Patient attempting for more prison placement, but unable to secure at this time and agreed to go home. On day of discharge, patient doing well over all without any acute concerns. #bed bug infestation s/p decontamination contact precautions lifted, patient can ambulate freely #Recurrent falls PT/OT: rehab Fall precautions #Suicidal Ideation: #schizoaffective disorder: Patient here with suicidal ideation and reports plan to overdose on her medications. Evalauted by Psych: outpatient referral Takes paliperidone, perphenazine, Zoloft, Cymbalta and Buspar; continue Cymbalta reduced from 50mg daily to 30mg, continue #Asthma: Chronic Uses Breo Ellipta; continue Takes montelukast;continue Wears a BiPap at night; continue per protocol here HS Xopenex PRN #HTN: #pAF: Chronic Takes HCTZ, Losartan, and Sotolol; continue Has been on anticoagulation in the past; not currently on any #HLD: Chronic Takes low dose rosuvastatin #History of seizure: Takes #Hypothyroidism: Chronic Takes levothyroxine; continue TSH 7.083, question if patient taking properly will reassess #OAB: Chronic Takes mirabegron; continue Notes For Next Care Provider Medication Changes From Visit reduced cymbalta from 50mg to 30mg Admission HPI Per Admitting Provider Ms. Melton is a 59 year old female that presented to the [facility] with suicidal ideation with intent to overdose. She presented to the hospital on 07/16 as a voluntary 200. Additional PMH with multiple comorbidities including seizure disorder, schizoaffective disorder, asthma, paroxysmal atrial 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, morbid obesity, bipolar disorder, iron deficiency anemia, hypertension, hyperlipidemia, ? Sjogren syndrome, restless leg syndrome and other medical problems presents with suicidal ideation. She states attempting to overdose herself with some of her home medications few days ago. She has felt more isolated and unable to allow her aide that comes to help around the house in her apartment given the current bed bug infestation at her apartment complex. Patient reports auditory hallucinations telling her to harm herself and end her life. Normal toxicology screen. Negative for COVID. EKG showed nonspecific ST-T wave changes. Currently, Psychiatry case management is actively working on an inpatient psychiatric Labs drawn yesterday include no leukocytosis, slight hypokalemia, no transaminitis, and otherwise lab work up unremarkable. Pt denies Barraza, dizziness, SOB, CP, palpitations, N/V/D, dysuria, hematochezia, re cent falls or trauma. Patient will be admitted for further evaluation and management. Please see A/P for further details. Admission Exam Per Admitting Provider Neuro: AAOx4, PERRLA, no aphagia, memory changes, CNII-XII grossly intact HEENT: head normocephalic, moist mucus membranes CV: S1/S2, (-) M/G/R, (-) edema, cap refill < 3 seconds Resp: Lungs CTA in all villa. On RA GI: Abdomen S/NT/ND, Ax4 bowel sounds, (-) CVA tenderness Musculoskeletal: 5/5 B/L UE strength, 5/5 B/L LE strength. No gait disturbance Skin: (-) rashes , (-) erythema. Psych: euthymic mood Discharge Exam Constitutional WD/WN, vitals as above Respiratory normal respiratory effort, lungs clear to auscultation Cardiovascular RRR, no murmur, no edema Gastrointestinal (Abdomen) normal bowel sounds, soft, nontender, no hepatosplenomegaly Updated Medication List Medication Instructions Recorded Confirmed Type duloxetine 30 mg capsule,delayed 30 mg PO DAILY 06/18/22 07/16/24 History release gabapentin 300 mg capsule 300 mg PO HS 06/18/22 07/16/24 History lamotrigine 200 mg tablet 200 mg PO BID 06/18/22 07/16/24 History levocetirizine 5 mg tablet 5 mg PO PM 06/18/22 07/16/24 History losartan 100 mg tablet 100 mg PO DAILY 06/18/22 07/16/24 History mirtazapine 30 mg tablet 30 mg PO HS 06/18/22 07/16/24 History montelukast 10 mg tablet 10 mg PO HS 06/18/22 07/16/24 History paliperidone 9 mg tablet,extended 9 mg PO HS 06/18/22 07/16/24 History release 24 hr perphenazine 8 mg tablet 8 mg PO HS 06/18/22 07/16/24 History potassium chloride 10 mEq 10 meq PO DAILY 06/18/22 07/16/24 History tablet,extended release rosuvastatin 5 mg tablet 5 mg PO HS 06/18/22 07/16/24 History sertraline 100 mg tablet 200 mg PO DAILY 06/18/22 07/16/24 History hydrochlorothiazide 12.5 mg capsule 12.5 mg PO DAILY 06/10/24 07/16/24 History levothyroxine 200 mcg tablet 200 mcg PO DAILY 06/10/24 07/16/24 History fluticasone furoate 50 1 inh inhalation DAILY #60 ea 06/12/24 07/16/24 Rx mcg-vilanterol 25 mcg/dose inhalation powder (Breo Ellipta) buspirone 15 mg tablet 15 mg PO BID 07/16/24 07/16/24 History furosemide 40 mg tablet 40 mg PO BID 07/16/24 07/16/24 History mirabegron 50 mg tablet,extended 50 mg PO HS 07/16/24 07/16/24 History release 24 hr perphenazine 4 mg tablet 4 mg PO DAILY 07/16/24 07/16/24 History amlodipine 5 mg tablet 5 mg PO BID 07/17/24 07/17/24 History sotalol 80 mg tablet 80 mg PO BID 07/17/24 07/17/24 History Hospital Stay Data Consultations 07/17/24 12:44 Consult Psychiatry Routine 07/17/24 14:56 ED Decision to Admit Stat Pending Results Patient Have Any Pending Studies at Discharge: No Discharge Instructions Given to Patient (Per Discharging Provider) You were admitted for concerns of self harm. You were connected to resources with Case Management who is working to help you with various placement options. You Cymbalta dose was decreased from 50mg daily to 30mg daily. Please continued this dosing Here are some crisis numbers for mental health: * 988 Suicide & Crisis Lifeline:Call, text, or chat 988 to connect with a mental health professional 21/02.This service is for people experiencing mental health or substance use emergencies. * National Suicide Prevention Lifeline:Call 090-407-1807 or chat with Lifeline. * Crisis Textline:Text TALK to 351249. * If you or someone you know is in danger or needs immediate medical attention, call . You can also call theAccess HelpLine at the [place] Department of Behavioral Health https://[facility].[place].gov/service/access-helpline at 2(327)7UO-HELP or .This 24-hour, altqa-elz-e-week telephone line can connect you to services and activate mobile crisis teams Total Time Total Time Spent Total Time Spent (In Minutes): 45
== END 2024-07-24 14:11 | disposition home or self-care (01) | DRG 880 ==
LOC: ED 09:45 → SUATTDRO 07-17 14:57 → EDINP 07-17 14:57 → 3E 07-17 17:14

== ENCOUNTER 2024-10-30 00:20 | Inpatient (IN) ==
--- NOTE | 2024-10-30 01:01 | Emergency Department Note ---
Impression & Plan Closed right ankle fracture, Fall, Ambulatory dysfunction, Acute dehydration admit to the [facility] ED Provider Note NAME: YISEL MCGEE AGE: 59 SEX: Female INFORMANT: Patient ED PROVIDER(S): Yoon Atwood DO CHIEF COMPLAINT: fall PLAN: Disposition: admit to the [facility] MEDICAL DECISION MAKING: This is a 59-year-old female patient who stood up from bed tonight became lightheaded. She fell down striking her head on her nightstand and landing on her right ankle. She did not lose consciousness. She denies any pain in her neck. She does not take blood thinners. She describes previous episodes where she becomes lightheaded upon standing. On physical exam, the patient appears to be dehydrated and has dry mucous membranes. X-ray shows evidence of a medial malleolus fracture and old lateral malleolus fracture. Ankle was placed into Ortho-Glass splinting material. Patient would have difficulty ambulating with the splint in place using her walker. Arrangements will need to be made with discharge planning for the patient. In the meantime, the patient was bolused with IV normal saline solution and she was encouraged to drink clear liquids. Urinalysis was unremarkable. Laboratory studies revealed no leukocytosis or anemia. BUN was elevated at 24 and creatinine was 0.85. The BUN/creatinine ratio was 28.2 consistent with dehydration. Glucose was 124. I discussed the case with the [employer] [facility] and they will evaluate for further inpatient care Care/management discussed with: assistant kitchen manager and [facility] Triage Nursing notes: reviewed and agree with them. Vital Signs: reviewed and remarkable for hypertension Chronic Medical/Social Conditions affecting care: Morbid obesity and the patient lives alone Differential Diagnosis: Dehydration, orthostasis, anemia, syncope, mechanical fall, ankle fracture, ankle sprain Diagnostics, independently interpreted by me: ECG: Normal sinus rhythm at a rate of [address] segment elevation or signs of ischemia. There was no ectopy Cardiac Monitoring: normal sinus rhythm at a rate of 97 Imaging studies: Portable chest x-ray: As per [facility] Right ankle x-ray: As per [facility] HPI: 59 year old Female arrives for evaluation of fall. Patient stood up from bed to go to the bathroom when she became lightheaded and fell striking the back of her head on the nightstand. She also injured her right ankle. PAST MEDICAL HISTORY: See Below, PAST SURGICAL HISTORY: See Below, SOCIAL HISTORY: She lives alone, she does not smoke HOME MEDICATIONS: See list ALLERGIES: See list VITALS: See Below PHYSICAL EXAMINATION: HEENT: Head - normocephalic and atraumatic. Pupils are equal, round, and reactive to light. Extraocular eye muscles are intact and sclera are anicteric. Nose -dry nasal mucosa without evidence of trauma or discharge. Mouth - extremely dry buccal mucosa with no trauma to the teeth or signs of malocclusion. Patient's lips are cracked. Neck: The neck is supple and there is no pain to palpation over the posterior cervical spine and no obvious step-offs or deformities. There is no JVD or tracheal deviation. Chest: There are no signs of deformities, contusions or abrasions to the chest wall. There is no obvious crepitus or paradoxical chest rise. Heart: Regular, rate, and rhythm. There is a normal S1 and S2 with no murmurs, clicks, or gallops appreciated. Lungs: Lung sounds are distant secondary to patient's body habitus. Clear to auscultation bilaterally with no wheezes, rales, or rhonchi. Abdomen: Soft, completely nontender, nondistended, with good bowel sounds. There is no sign of trauma such as contusions, abrasions or penetrations. There are no palpable pulsatile masses or hepatosplenomegaly. There is no guarding, rigidity, or rebound noted. Pelvis: Stable to rock and compression. Extremities: Edema and ecchymosis noted to the medial aspect of the right ankle. Patient has easily palpable dorsalis pedis and posterior tibial pulses in that right foot. She can move her toes and has good warmth and sensation to the foot and toes. All other extremities are without evidence of trauma. Neuro: The patient is awake and alert and easily able to follow commands. Muscle strength is 5 out of 5 in all 4 extremities. Otherwise, neuro exam is unremarkable. Back: No obvious traumatic injuries Emergency Department treatment: shoe puller, IV normal saline bolus, IV fentanyl, IV Zofran, Ortho-Glass splinting material to the right ankle Emergency Department course: The patient was evaluated in room A-3. A complete history and physical was performed. Laboratory studies were drawn as above. An order was placed for continuous cardiac monitoring. The patient was in a normal sinus rhythm at a rate of 97. A twelve-lead EKG was obtained as described above. Patient was medicated with IV fentanyl and IV Zofran for the significant pain she was having in her right ankle. Plain x-rays of the ankle were obtained along with a chest x-ray. I reviewed these findings with the patient. She did get moderate relief of her pain with the IV analgesia. Ortho-Glass splinting material was applied to the right lower extremity under my direction and I checked capillary refill to the toes and sensation after the splint was applied. This was intact. I discussed the case with the [employer] [facility] and they will evaluate for further inpatient care. Past Med/Surg History Problem List (Updated 10/30/24 @ 11:33 by GABRIEL Dixon) Bimalleolar avulsion fracture of right ankle Acute dehydration (Acute) Ambulatory dysfunction (Acute) Fall (Acute) Closed right ankle fracture (Acute) Closed right ankle fracture Psychosocial stressors History of seizure Asymptomatic hypertensive urgency Fall (Acute) Symptomatic anemia (Acute) Dyspnea on minimal exertion (Acute) Encounter for pre-operative examination Hyponatremia NATY (acute kidney injury) SEEMA (iron deficiency anemia) (Acute) Anemia (Acute) RLS (restless legs syndrome) MAURO (obstructive sleep apnea) Chronic diastolic (congestive) heart failure Positive SOFIA (antinuclear antibody) Dyslipidemia Hypertension History of iron deficiency anemia (Acute) Bipolar I disorder (Chronic 01/14/13) Intractable vomiting with nausea (Acute) Severe hypertension (Acute) Morbid obesity Chronic back pain High catecholamines Sacroiliac joint pain Lumbar post-laminectomy syndrome Lumbar pain with radiation down both legs Schizoaffective disorder Asthma rare res inh use Paroxysmal A-fib follows with Eduardo Gonsalez > Eliquis Medical History Falls Suicidal ideation Dyspnea Anxiety and depression Admitted to intensive care unit DVT prophylaxis Nausea and vomiting Hypertensive emergency Morbid obesity Bipolar 1 disorder Osteoarthritis Fibromyalgia Spinal stenosis Degenerative disc disease Chronic back pain GERD (gastroesophageal reflux disease) Hypothyroidism Migraine Seizure SEIZURES X 2 (); CONTROLLED ON LAMICTAL Sleep apnea cpap Epilepsy hx of, last one in IBS (irritable bowel syndrome) Surgical History Nausea and vomiting after administration of anesthetic agent History of cataract surgery RT/LEFT History of total abdominal hysterectomy and bilateral salpingo-oophorectomy S/P foot surgery, left X2 History of carpal tunnel release LEFT Status post lumbar spine surgery for decompression of spinal cord + RODS History of colonoscopy History of cholecystectomy History of tooth extraction ALL UPPER TEETH EXTRACTIONS History of tonsillectomy and adenoidectomy History of endoscopic sinus surgery Family History Father Family history of diabetes mellitus Coronary heart disease Mother Lung cancer Sister Alive and well Brother Alive and well Other No family history of adverse response to anesthesia Social History Smoking Status: Never smoker Tobacco Type: Cigarettes Second Hand Exposure: No; Do You Dip or Chew Tobacco: No; Tobacco Cessation Education Requested by Patient: No Hx Alcohol Use: No Hx Substance Use: No Preferred Language: Lao Communication Ability: Effective Visual Impairment: No Limitations 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: Normal 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 Beliefs That Will Affect Care: None marital status: Current Living Situation: Alone current occupational status: disabled Other Information That Helps Us Care for You: No Feels Safe at Home: Yes Safety Concerns: Feels Safe At This Time Gender Identity: Female Assistive Devices: Walker Allergies Allergies Allergy/AdvReac Type Severity Reaction Status Date / Time adhesive Allergy Intermediate RASH, ITCHY Verified 06/18/22 21:51 Hydantoins Allergy Intermediate Hives Verified 06/18/22 21:51 ethyl alcohol AdvReac Severe Seizure Verified 06/18/22 21:51 thioridazine AdvReac Severe SEIZURES Verified 06/18/22 21:51 phenytoin AdvReac Intermediate Nausea Verified 06/18/22 21:51 Home Meds Home Medications Medication Instructions Recorded Confirmed Breo Ellipta 1 puff inhalation DAILY 10/30/24 10/30/24 amlodipine 5 mg tablet 5 mg PO DAILY 10/30/24 10/30/24 buspirone 10 mg tablet 10 mg PO TID 10/30/24 10/30/24 duloxetine 30 mg capsule,delayed 30 mg PO DAILY 10/30/24 10/30/24 release gabapentin 300 mg capsule 300 mg PO HS 10/30/24 10/30/24 hydralazine 25 mg tablet 75 mg PO TID 10/30/24 10/30/24 hydrochlorothiazide 12.5 mg tablet 12.5 mg PO DAILY 10/30/24 10/30/24 lamotrigine 200 mg tablet 200 mg PO BID 10/30/24 10/30/24 (Lamictal) levocetirizine 5 mg tablet 5 mg PO DAILY 10/30/24 10/30/24 levothyroxine 200 mcg tablet 200 mcg PO DAILY 10/30/24 10/30/24 losartan 100 mg tablet 100 mg PO DAILY 10/30/24 10/30/24 mirabegron 50 mg tablet,extended 50 mg PO HS 10/30/24 10/30/24 release 24 hr mirtazapine 30 mg tablet 30 mg PO HS 10/30/24 10/30/24 montelukast 10 mg tablet 10 mg PO HS 10/30/24 10/30/24 paliperidone 9 mg tablet,extended 9 mg PO DAILY 10/30/24 10/30/24 release 24 hr perphenazine 4 mg tablet 4 mg PO DAILY 10/30/24 10/30/24 perphenazine 8 mg tablet 8 mg PO HS 10/30/24 10/30/24 potassium chloride 10 mEq 10 meq PO DAILY 10/30/24 10/30/24 tablet,extended release rosuvastatin 5 mg tablet 5 mg PO DAILY 10/30/24 10/30/24 sertraline 100 mg tablet 200 mg PO DAILY 10/30/24 10/30/24 sotalol 80 mg tablet 40 mg PO BID 10/30/24 10/30/24 spironolactone 25 mg tablet 25 mg PO DAILY 10/30/24 10/30/24 tizanidine 4 mg capsule 4 mg PO TID PRN Muscle Spasm 10/30/24 10/30/24 Results & Data (ED) Vital Signs Vital Signs - 24 hr 10/30/24 00:23 10/30/24 00:46 10/30/24 01:04 Temperature 36.9 C Temperature Source Oral Pulse Rate 90 84 Pulse Rate [Apical] Pulse Rhythm Regular Pulse Rhythm [Apical] Pulse Strength Normal Pulse Strength [Apical] Respiratory Rate 18 Respiratory Effort / Characteristics Non-Labored Respiratory Depth Normal Respiratory Pattern Regular Blood Pressure 165/105 H Blood Pressure [Right Arm] Blood Pressure Mean 125 Blood Pressure Mean [Right Arm] Blood Pressure Position Sitting Blood Pressure Position [Right Arm] Pulse Oximetry 96 96 Oxygen Delivery Method Room Air Room Air Sepsis Recent Fever Within 48 Hours No Sepsis New/Unexplained Change in Mental Status No Sepsis Action Taken by Nursing No Action Required 10/30/24 02:12 Temperature Temperature Source Pulse Rate Pulse Rate [Apical] 85 Pulse Rhythm Pulse Rhythm [Apical] Regular Pulse Strength Pulse Strength [Apical] Normal Respiratory Rate 17 Respiratory Effort / Characteristics Non-Labored Respiratory Depth Normal Respiratory Pattern Regular Blood Pressure Blood Pressure [Right Arm] 160/115 H Blood Pressure Mean Blood Pressure Mean [Right Arm] 130 Blood Pressure Position Blood Pressure Position [Right Arm] Lying Pulse Oximetry 96 Oxygen Delivery Method Room Air Sepsis Recent Fever Within 48 Hours Sepsis New/Unexplained Change in Mental Status Sepsis Action Taken by Nursing Laboratory Data 10/30/24 07:48 10/30/24 07:48 Lab Results 10/30/24 10/30/24 10/30/24 Range/Units 01:17 01:36 02:21 WBC 7.04 (4.8-10.8) K/ul RBC 4.11 L (4.20-5.40) M/uL Hgb 12.4 (12.0-16.0) g/dl POC Hgb 12.6 (12.0-16.0) g/dl Hct 38.8 (37.0-47.0) % POC Hct 37 (37-47) % MCV 94.4 (80.0-100.0) fL MCH 30.2 (25.0-34.0) pg MCHC 32.0 (32.0-36.0) g/dL RDW Std Deviation 49.1 H (36.4-46.3) fL RDW Coeff of Lor 14.0 (11.5-14.5) % Plt Count 160 (130-400) K/uL MPV 10.5 (9.4-12.4) fL Immature Gran % (Auto) 0.4 % Neut % (Auto) 72.6 % Lymph % (Auto) 12.6 % Foster % (Auto) 10.2 % Eos % (Auto) 3.3 % Baso % (Auto) 0.9 % Neut # (Auto) 5.11 (1.40-6.50) K/uL Lymph # (Auto) 0.89 L (1.20-3.40) K/uL Foster # (Auto) 0.72 H (0.11-0.59) K/uL Eos # (Auto) 0.23 (0.00-0.50) K/uL Baso # (Auto) 0.06 (0.00-0.20) K/uL Immature Gran # (Auto) 0.03 (0.01-0.20) K/uL PT 10.1 (9.0-12.0) Seconds INR 0.9 (0.9-1.1) APTT 25 (21-31) Seconds PTT Ratio 0.9 POC Sodium 138 (135-144) mmol/L Sodium 136 (136-145) mmol/L POC Potassium 4.2 (3.3-5.0) mmol/L Potassium 4.3 (3.5-5.1) mmol/L POC Chloride 99 L (101-112) mmol/L Chloride 101 (98-107) mmol/L Carbon Dioxide 31 (21-32) mmol/L POC Total CO2 27 (24-31) mmol/L Anion Gap 4 (3-11) POC Anion Gap 17.0 (16-25) mmol/L POC BUN 24 H (7-18) mg/dl BUN 24 H (6-23) mg/dl Creatinine 0.85 (0.6-1.2) mg/dl POC Creatinine 1.0 (0.6-1.3) mg/dl Est Cr Clr Drug Dosing 94.1 ml/min eGFR 77.90 BUN/Creatinine Ratio 28.2 H (10-20) Glucose 124 H (70-99(Fasting)) mg/dl POC Glucose (other) 123 H (70-99) mg/dl Calcium 9.6 (8.6-10.3) mg/dl POC Ioniz Calcium Lupe 1.21 (1.12-1.32) mmol/l Total Bilirubin 0.3 (0.2-1.0) mg/dl AST 15 (13-39) U/L ALT 17 (7-52) U/L Alkaline Phosphatase 95 (34-104) U/L Total Protein 7.4 (6.0-8.3) gm/dl Albumin 4.0 (3.4-5.0) gm/dl Globulin 3.4 (2.5-4.0) gm/dl Albumin/Globulin Ratio 1.2 (0.9-2) Lipase 19 (11-82) U/L Urine Color Yellow Urine Appearance Clear (Clear) Urine pH 6.0 (4.5-7.5) Ur Specific [place] 1.011 (1.000-1.030) Urine Protein Negative (Negative) Urine Glucose (UA) Negative (Negative) Urine Ketones Negative (Negative) Urine Blood Negative (Negative) Urine Nitrite Negative (Negative) Urine Bilirubin Negative (Negative) Urine Urobilinogen Negative (Negative) Ur Leukocyte Esterase Negative (Negative) Administered Medications Amlodipine Besylate (Amlodipine Besylate 5 Mg Tab) 5 mg PO DAILY RAVI Stop: 11/29/24 08:59 Last Admin: 10/30/24 08:03 Dose: 5 mg Documented By: BECCA Buspirone HCl (Buspirone 5 Mg Tab) 10 mg PO TID RAVI Stop: 11/29/24 08:59 Last Admin: 10/30/24 12:37 Dose: 10 mg Documented By: Admin: 10/30/24 08:03 Dose: 10 mg Documented By: BECCA Cetirizine HCl (Cetirizine Hcl 10 Mg Tablet) 10 mg PO DAILY RAVI Stop: 11/29/24 08:59 Last Admin: 10/30/24 07:56 Dose: 10 mg Documented By: BECCA Duloxetine HCl (Duloxetine Hcl 30 Mg Cap) 30 mg PO DAILY [facility]AVI Stop: 11/29/24 08:59 Last Admin: 10/30/24 07:53 Dose: 30 mg Documented By: BECCA Enoxaparin Sodium (Enoxaparin Inj 40 Mg/0.4 Ml Syr) 40 mg SQ Q12H RAVI Stop: 11/29/24 06:59 Last Admin: 10/30/24 08:03 Dose: 40 mg Documented By: BECCA Fluticasone/Vilanterol (Fluticasone/Vilanterol 200/25mcg 14 Puffs/Inhaler) 1 puffs INH DAILY RAVI Stop: 11/29/24 08:59 Last Admin: 10/30/24 07:51 Dose: 1 puffs Documented By: EBCCA Hydralazine HCl (Hydralazine Hcl 25 Mg Tab) 75 mg PO TID RAVI Stop: 11/29/24 08:59 Last Admin: 10/30/24 12:37 Dose: 75 mg Documented By: Admin: 10/30/24 07:52 Dose: 75 mg Documented By: BECCA Hydrochlorothiazide (Hydrochlorothiazide 25 Mg Tab) 12.5 mg PO DAILY [facility] Stop: 11/29/24 08:59 Last Admin: 10/30/24 07:53 Dose: 12.5 mg Documented By: BECCA Hydromorphone HCl (Hydromorphone Inj 0.5 Mg/0.5 Ml Syr) 0.5 mg IV Q4H PRN PRN Reason: Severe Pain (Scale 7, 8, 9,10) Stop: 11/13/24 06:30 Last Admin: 10/30/24 10:09 Dose: 0.5 mg Documented By: Admin: 10/30/24 07:35 Dose: 0.5 mg Documented By: BECCA Lactated Ringer's (Lr) 1,000 mls @ 80 mls/hr IV .[id number] [facility] Stop: 10/31/24 06:30 Last Infusion: 10/30/24 09:43 Dose: 80 mls/hr Documented By: Infusion: 10/30/24 08:59 Dose: 0 mls/hr Documented By: Admin: 10/30/24 07:34 Dose: 80 mls/hr Documented By: BECCA Lamotrigine (Lamotrigine 100 Mg Tab) 200 mg PO BID [facility]; Protocol Stop: 11/29/24 08:59 Last Admin: 10/30/24 07:52 Dose: 200 mg Documented By: BECCA Levothyroxine Sodium (Levothyroxine Sodium 200 Mcg Tablet) 200 mcg PO DAILYBB [facility] Stop: 11/29/24 06:59 Last Admin: 10/30/24 07:55 Dose: 200 mcg Documented By: BECCA Losartan Potassium (Losartan Potassium 50 Mg Tab) 100 mg PO DAILY [facility] Stop: 11/29/24 08:59 Last Admin: 10/30/24 07:53 Dose: 100 mg Documented By: BECCA Paliperidone (Paliperidone 3 Mg Tabcr) 9 mg PO DAILY [facility] Stop: 11/29/24 08:59 Last Admin: 10/30/24 07:54 Dose: 9 mg Documented By: BECCA Perphenazine (Perphenazine 4 Mg Tab) 4 mg PO DAILY [facility] Stop: 11/29/24 08:59 Last Admin: 10/30/24 07:56 Dose: 4 mg Documented By: BECCA Potassium Chloride (Potassium Chloride 10 Meq Tabcr) 10 meq PO DAILY [facility] Stop: 11/29/24 08:59 Last Admin: 10/30/24 08:02 Dose: 10 meq Documented By: BECCA Rosuvastatin Calcium (Rosuvastatin Calcium 5 Mg Tab) 5 mg PO DAILY [facility] Stop: 11/29/24 08:59 Last Admin: 10/30/24 07:57 Dose: 5 mg Documented By: BECCA Sertraline HCl (Sertraline Hcl 100 Mg Tablet) 200 mg PO DAILY [facility] Stop: 11/29/24 08:59 Last Admin: 10/30/24 07:56 Dose: 200 mg Documented By: BECCA Sotalol HCl (Sotalol Hcl 80 Mg Tab) 40 mg PO BID [facility]I Stop: 11/29/24 08:59 Last Admin: 10/30/24 07:57 Dose: 40 mg Documented By: BECCA Spironolactone (Spironolactone 25 Mg Tab) 25 mg PO DAILY [facility] Stop: 11/29/24 08:59 Last Admin: 10/30/24 07:55 Dose: 25 mg Documented By: BECCA Tizanidine HCl (Tizanidine Hcl 4 Mg Tablet) 4 mg PO TID PRN PRN Reason: Muscle Spasm Stop: 11/29/24 06:30 Last Admin: 10/30/24 07:58 Dose: 4 mg Documented By: BECCA Discontinued Medications Fentanyl Citrate (Fentanyl Citrate Pf 100 Mcg/2 Ml Vial) 100 mcg IV NOW STA Stop: 10/30/24 00:35 Last Admin: 10/30/24 01:16 Dose: 100 mcg Documented By: AMELIA Hydromorphone HCl (Hydromorphone Inj 0.5 Mg/0.5 Ml Syr) 0.5 mg IV NOW STA Stop: 10/30/24 03:21 Last Admin: 10/30/24 03:32 Dose: 0.5 mg Documented By: AMELIA Sodium Chloride (Nss) 500 mls @ 999 mls/hr IV .Q31M ONE Stop: 10/30/24 03:09 Last Infusion: 10/30/24 03:43 Dose: Infused Documented By: Admin: 10/30/24 03:07 Dose: 999 mls/hr Documented By: AMELIA Morphine Sulfate (Morphine Sulfate 2 Mg/Ml Carp) 2 mg IV ONE ONE Stop: 10/30/24 12:18 Last Admin: 10/30/24 12:35 Dose: 2 mg Documented By: BECCA Ondansetron HCl (Ondansetron Inj 2 Mg/Ml 2 Ml Vial) 4 mg IV NOW STA Stop: 10/30/24 00:35 Last Admin: 10/30/24 01:16 Dose: 4 mg Documented By: AMELIA Imaging Data Radiologist's Impression: Ankle X-Ray 10/30/24 00:34 EXAM: XR ankle RT min 3V routine CLINICAL HISTORY: fall TECHNIQUE: X-ray images of the right ankle were obtained in anteroposterior (AP), lateral, and mortise projections. COMPARISON: prior X-ray of the right ankle 04/26/2027 FINDINGS: Bone Structure: The previously seen spiral fracture at the distal fibular metaphysis currently showed healing, however with mal-alignment of the united fragments and possible fusion with the distal tibial metaphysis. Another slightly displaced fracture is currently seen at the medial malleolus (new) (of indeterminate age, probably a recent fracture). Bone density is normal. Joint Spaces: Degenerative changes are noted in the form of osteophytic formations. Soft Tissues: Mild edema of the subcutaneous tissues of the leg and ankle regions. IMPRESSION: - Fracutre at the medial malleolus (new). - Healed old fracture at the distal fibular metaphysis, however, with mal-alignment of the united fragments. - Mild degenerative changes. Disclaimer: A subtle bone abnormality or fracture may not be readily apparent on X-rays, thus clinical correlation and further imaging including follow-up CT, MRI, or follow-up X-rays are advised as needed. Electronically signed by Ulices Gutierrez 10-30-2024 01:40 AM Chest X-Ray 10/30/24 00:34 EXAM: XR chest 1V portable CLINICAL HISTORY: Trauma TECHNIQUE: An X-ray image of the chest is obtained in AP projection. COMPARISON: 06/10/2024 FINDINGS: Pulmonary Parenchyma: Lungs are clear bilaterally. No evidence of consolidation, collapse, or focal opacities. No pulmonary nodules are identified. Blunting of left costophrenic angle. Clear right costophrenic angle. Heart and Mediastinum: Heart size and shape are normal. No mediastinal widening or masses. No hilar or mediastinal lymphadenopathy. Bony Thorax: Bony thorax appears intact without fractures or deformities. Soft Tissues: Soft tissues overlying the chest wall are unremarkable. IMPRESSION: 1. Blunting of left costophrenic angle, could represent minimal pleural effusion/thickenning (unchanged). 2. No gross airspace opacities. Electronically signed by Ulices Gutierrez 10-30-2024 01:46 AM Discharge Plan Visit Data Chief Complaint: Fall Stated Complaint: FALL, LEFT LEG DEFORMITY ED Provider: Yoon Atwood Discharge Problem: Closed right ankle fracture, Fall, Ambulatory dysfunction, Acute dehydration Patient Disposition: Admitted As Inpatient Discharge Instructions Interventions: ED Discharge Assessment Last Done: 10/30/24 06:02
[2024-10-30] MEDS: fentaNYL citrate PF 100 MCG/2 ML VIAL IV STA (01:16)
[2024-10-30] MEDS: ONDANSETRON INJ 2 MG/ML 2 ML VIAL IV STA (01:16)
--- NOTE | 2024-10-30 01:41 | XRay Report ---
EXAM: XR ankle RT min 3V routine CLINICAL HISTORY: fall TECHNIQUE: X-ray images of the right ankle were obtained in anteroposterior (AP), lateral, and mortise projections. COMPARISON: prior X-ray of the right ankle 04/26/2027 FINDINGS: Bone Structure: The previously seen spiral fracture at the distal fibular metaphysis currently showed healing, however with mal-alignment of the united fragments and possible fusion with the distal tibial metaphysis. Another slightly displaced fracture is currently seen at the medial malleolus (new) (of indeterminate age, probably a recent fracture). Bone density is normal. Joint Spaces: Degenerative changes are noted in the form of osteophytic formations. Soft Tissues: Mild edema of the subcutaneous tissues of the leg and ankle regions. IMPRESSION: - Fracutre at the medial malleolus (new). - Healed old fracture at the distal fibular metaphysis, however, with mal-alignment of the united fragments. - Mild degenerative changes. Disclaimer: A subtle bone abnormality or fracture may not be readily apparent on X-rays, thus clinical correlation and further imaging including follow-up CT, MRI, or follow-up X-rays are advised as needed. Electronically signed by Ulices Gutierrez 10-30-2024 01:40 AM
--- NOTE | 2024-10-30 01:46 | XRay Report ---
EXAM: XR chest 1V portable CLINICAL HISTORY: Trauma TECHNIQUE: An X-ray image of the chest is obtained in AP projection. COMPARISON: 06/10/2024 FINDINGS: Pulmonary Parenchyma: Lungs are clear bilaterally. No evidence of consolidation, collapse, or focal opacities. No pulmonary nodules are identified. Blunting of left costophrenic angle. Clear right costophrenic angle. Heart and Mediastinum: Heart size and shape are normal. No mediastinal widening or masses. No hilar or mediastinal lymphadenopathy. Bony Thorax: Bony thorax appears intact without fractures or deformities. Soft Tissues: Soft tissues overlying the chest wall are unremarkable. IMPRESSION: 1. Blunting of left costophrenic angle, could represent minimal pleural effusion/thickenning (unchanged). 2. No gross airspace opacities. Electronically signed by Ulices Gutierrez 10-30-2024 01:46 AM
[2024-10-30 01:48] LABS: iSTAT Hemoglobin 12.6 g/dl (12.0-16.0); iSTAT Ionized Calcium 1.21 mmol/l (1.12-1.32); iSTAT Potassium 4.2 mmol/L (3.3-5.0)
[2024-10-30 01:52] LABS: Basophils # (auto) 0.06 K/uL (0.00-0.20); Basophils % (auto) 0.9 %; Eosinophils # (auto) 0.23 K/uL (0.00-0.50); Eosinophils % (auto) 3.3 %; Hematocrit (blood only) 38.8 % (37.0-47.0); Hemoglobin 12.4 g/dl (12.0-16.0); Immature Granulocytes # (auto) 0.03 K/uL (0.01-0.20); Immature Granulocytes % (auto) 0.4 %; Lymphocytes # (auto) 0.89 K/uL (1.20-3.40); Lymphocytes % (auto) 12.6 %; Mean Corpuscular Hemoglobin 30.2 pg (25.0-34.0); Mean Corpuscular Volume 94.4 fL (80.0-100.0); Mean Platelet Volume 10.5 fL (9.4-12.4); Monocytes # (auto) 0.72 K/uL (0.11-0.59); Monocytes % (auto) 10.2 %; Neutrophils # (auto) 5.11 K/uL (1.40-6.50); Neutrophils % (auto) 72.6 %; Platelet Count 160 K/uL (130-400); RDW Standard Deviation 49.1 fL (36.4-46.3); Red Blood Count 4.11 M/uL (4.20-5.40); White Blood Count 7.04 K/ul (4.8-10.8)
[2024-10-30 02:07] LABS: Albumin Globulin Ratio 1.2 (0.9-2); BUN Creatinine Ratio 28.2 (10-20); Bilirubin,Total 0.3 mg/dl (0.2-1.0); Calcium 9.6 mg/dl (8.6-10.3); Creatinine Clr Calc Pharmacy 94.1 ml/min; Globulin 3.4 gm/dl (2.5-4.0); Potassium 4.3 mmol/L (3.5-5.1); Total Protein 7.4 gm/dl (6.0-8.3)
[2024-10-30 02:31] LABS: INR 0.9 (0.9-1.1); Partial Thromboplastin Ratio 0.9; Partial Thromboplastin Time 25 Seconds (21-31); Prothrombin Time 10.1 Seconds (9.0-12.0)
[2024-10-30 02:37] LABS: Appearance Urine Clear (Clear); Bilirubin Urine Negative (Negative); Blood Urine Negative (Negative); Color Urine Yellow; Glucose Urine UA Negative (Negative); Ketones Urine Negative (Negative); Leukocyte Esterase Urine Negative (Negative); Nitrite Urine Negative (Negative); Protein Urine Negative (Negative); Specific Gravity Urine 1.011 (1.000-1.030); Urobilinogen Urine Negative (Negative)
[2024-10-30] MEDS: SODIUM CHLORIDE 0.9% 500 ML IV ONE (03:07)
[2024-10-30] MEDS: HYDROmorphone INJ 0.5 MG/0.5 ML SYR IV STA (03:32)
--- NOTE | 2024-10-30 05:06 | History & Physical Report ---
Date of Service October 30, 2024 Assessment & Plan (1) Closed right ankle fracture: Plan: 59-year-old female with past medical history significant for hypothyroidism, hyperlipidemia, obstructive sleep apnea, moderate persistent asthma, atrial flutter, pulmonary hypertension, chronic diastolic CHF, hypertension, paroxysmal atrial 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, morbid obesity, irritable bowel syndrome with diarrhea, GERD, Sjogren's syndrome, degenerative disc disease, restless leg syndrome, migraine, iron deficiency anemia due to chronic blood loss, antiphospholipid syndrome, depression, mild intellectual disability, schizoaffective disorder bipolar, schizoaffective disorder depressive, history of suicide attempt who lives at home alone and ambulates with a rollator walker gets help with nursing aides 3 times a week and sister lives close by comes because of fall and found to have right ankle fracture. Patient says she was getting up in bed and she felt slightly dizzy which happens sometimes and fell to the right side. She hit her head but no loss of consciousness. X-rays in the ER showed fracture of the medial malleolus on the right side and status post splint in the ER. Denies any headache. Denies blurred visions. No runny nose or sore throat. No cough. No fevers. Appetite is okay. Denies chest pain. Denies shortness of breath. Denies nausea or vomiting. Denies abdominal pain. Normal bowel and bladder movements. Afebrile. Hemodynamics are okay. Closed right ankle fracture Status post fall Status post splint in the ER Ortho consult N.p.o. until seen by Ortho Gentle fluids Pain control PT OT when stable May need placement Obstructive sleep apnea BiPAP nightly Hypothyroidism On Synthyroid Hypertension On amlodipine, hydralazine, hydrochlorothiazide, losartan Will monitor History of A-fib On sotalol No longer on anticoagulant secondary to bleeding Hyperlipidemia Statin Depression Schizoaffective disorder History of suicide attempt Continue home medications Chronic diastolic CHF Spironolactone and hydrochlorothiazide Monitor for volume overload Moderate persistent asthma Continue home inhalers Hyperlipidemia On statin Morbid obesity Counseling DVT prophylaxis Lovenox Disposition Med/telemetry CODE STATUS DNR/DNI as per my discussion with the patient History of Present Illness Chief Complaint: Status post fall and right ankle fracture Primary Care Provider: Brian Salas DO 59-year-old female with past medical history significant for hypothyroidism, hyperlipidemia, obstructive sleep apnea, moderate persistent asthma, atrial flutter, pulmonary hypertension, chronic diastolic CHF, hypertension, paroxysmal atrial 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, morbid obesity, irritable bowel syndrome with diarrhea, GERD, Sjogren's syndrome, degenerative disc disease, restless leg syndrome, migraine, iron deficiency anemia due to chronic blood loss, antiphospholipid syndrome, depression, mild intellectual disability, schizoaffective disorder bipolar, schizoaffective disorder depressive, history of suicide attempt who lives at home alone and ambulates with a rollator walker gets help with nursing aides 3 times a week and sister lives close by comes because of fall and found to have right ankle fracture. Patient says she was getting up in bed and she felt slightly dizzy which happens sometimes and fell to the right side. She hit her head but no loss of consciousness. X-rays in the ER showed fracture of the medial malleolus on the right side and status post splint in the ER. Denies any headache. Denies blurred visions. No runny nose or sore throat. No cough. No fevers. Appetite is okay. Denies chest pain. Denies shortness of breath. Denies nausea or vomiting. Denies abdominal pain. Normal bowel and bladder movements. Afebrile. Hemodynamics are okay. Past medical history. As mentioned above Past surgical history. Colonoscopy. Left complex cataract surgery. EEG. EGD. Laparoscopic cholecystectomy. Ligation of oviducts. Lumbar hemilaminectomy. Nasal endoscopy. Tonsillectomy. Vaginal hysterectomy. Social history. Quit smoking 2010. Smoked 1 pack a day for 10 years. No alcohol use. No drug use. Family history. Brother had COPD. Father had diabetes. Heart disorder. Hypertension. Mother had lung cancer. Maternal grandmother had lung cancer. Allergies Allergy/AdvReac Type Severity Reaction Status Date / Time adhesive Allergy Intermediate RASH, ITCHY Verified 06/18/22 21:51 Hydantoins Allergy Intermediate Hives Verified 06/18/22 21:51 ethyl alcohol AdvReac Severe Seizure Verified 06/18/22 21:51 thioridazine AdvReac Severe SEIZURES Verified 06/18/22 21:51 phenytoin AdvReac Intermediate Nausea Verified 06/18/22 21:51 Home Medications Medication Instructions Recorded Confirmed Type Breo Ellipta 1 puff inhalation DAILY 10/30/24 10/30/24 History amlodipine 5 mg tablet 5 mg PO DAILY 10/30/24 10/30/24 History buspirone 10 mg tablet 10 mg PO TID 10/30/24 10/30/24 History duloxetine 30 mg capsule,delayed 30 mg PO DAILY 10/30/24 10/30/24 History release gabapentin 300 mg capsule 300 mg PO HS 10/30/24 10/30/24 History hydralazine 25 mg tablet 75 mg PO TID 10/30/24 10/30/24 History hydrochlorothiazide 12.5 mg tablet 12.5 mg PO DAILY 10/30/24 10/30/24 History lamotrigine 200 mg tablet 200 mg PO BID 10/30/24 10/30/24 History (Lamictal) levocetirizine 5 mg tablet 5 mg PO DAILY 10/30/24 10/30/24 History levothyroxine 200 mcg tablet 200 mcg PO DAILY 10/30/24 10/30/24 History losartan 100 mg tablet 100 mg PO DAILY 10/30/24 10/30/24 History mirabegron 50 mg tablet,extended 50 mg PO HS 10/30/24 10/30/24 History release 24 hr mirtazapine 30 mg tablet 30 mg PO HS 10/30/24 10/30/24 History montelukast 10 mg tablet 10 mg PO HS 10/30/24 10/30/24 History paliperidone 9 mg tablet,extended 9 mg PO DAILY 10/30/24 10/30/24 History release 24 hr perphenazine 4 mg tablet 4 mg PO DAILY 10/30/24 10/30/24 History perphenazine 8 mg tablet 8 mg PO HS 10/30/24 10/30/24 History potassium chloride 10 mEq 10 meq PO DAILY 10/30/24 10/30/24 History tablet,extended release rosuvastatin 5 mg tablet 5 mg PO DAILY 10/30/24 10/30/24 History sertraline 100 mg tablet 200 mg PO DAILY 10/30/24 10/30/24 History sotalol 80 mg tablet 40 mg PO BID 10/30/24 10/30/24 History spironolactone 25 mg tablet 25 mg PO DAILY 10/30/24 10/30/24 History tizanidine 4 mg capsule 4 mg PO TID PRN Muscle Spasm 10/30/24 10/30/24 History Past Med/Surg History Problem List (Updated 10/30/24 @ 06:54 by Yoon Atwood DO) Acute dehydration (Acute) Ambulatory dysfunction (Acute) Fall (Acute) Closed right ankle fracture (Acute) Closed right ankle fracture Psychosocial stressors History of seizure Asymptomatic hypertensive urgency Fall (Acute) Symptomatic anemia (Acute) Dyspnea on minimal exertion (Acute) Encounter for pre-operative examination Hyponatremia NATY (acute kidney injury) SEEMA (iron deficiency anemia) (Acute) Anemia (Acute) RLS (restless legs syndrome) MAURO (obstructive sleep apnea) Chronic diastolic (congestive) heart failure Positive SOFIA (antinuclear antibody) Dyslipidemia Hypertension History of iron deficiency anemia (Acute) Bipolar I disorder (Chronic 01/14/13) Intractable vomiting with nausea (Acute) Severe hypertension (Acute) Morbid obesity Chronic back pain High catecholamines Sacroiliac joint pain Lumbar post-laminectomy syndrome Lumbar pain with radiation down both legs Schizoaffective disorder Asthma rare res inh use Paroxysmal A-fib follows with Eduardo Gonsalez > [facility] Medical History Dyspnea Anxiety and depression Admitted to intensive care unit DVT prophylaxis Nausea and vomiting Hypertensive emergency Morbid obesity Bipolar 1 disorder Osteoarthritis Fibromyalgia Spinal stenosis Degenerative disc disease Chronic back pain GERD (gastroesophageal reflux disease) Hypothyroidism Migraine Seizure SEIZURES X 2 (); CONTROLLED ON LAMICTAL Sleep apnea cpap Epilepsy hx of, last one in IBS (irritable bowel syndrome) Surgical History Nausea and vomiting after administration of anesthetic agent History of cataract surgery RT/LEFT History of total abdominal hysterectomy and bilateral salpingo-oophorectomy S/P foot surgery, left X2 History of carpal tunnel release LEFT Status post lumbar spine surgery for decompression of spinal cord + RODS History of colonoscopy History of cholecystectomy History of tooth extraction ALL UPPER TEETH EXTRACTIONS History of tonsillectomy and adenoidectomy History of endoscopic sinus surgery Family History Father Family history of diabetes mellitus Coronary heart disease Mother Lung cancer Sister Alive and well Brother Alive and well Other No family history of adverse response to anesthesia Social History Smoking Status: Never smoker Tobacco Type: Cigarettes Second Hand Exposure: No; Do You Dip or Chew Tobacco: No; Tobacco Cessation Education Requested by Patient: No Hx Alcohol Use: No Hx Substance Use: No Preferred Language: Khmer Communication Ability: Effective Visual Impairment: No Limitations 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: Normal Wet Mix Operator Required: No Beliefs That Will Affect Care: None marital status: Current Living Situation: Alone current occupational status: disabled Other Information That Helps Us Care for You: No Feels Safe at Home: Yes Safety Concerns: Feels Safe At This Time Gender Identity: Female Assistive Devices: Walker Review of Systems Review of Systems: All systems reviewed & are unremarkable except as noted in HPI & below Physical Exam Physical Exam: General- Not in distress Head- atraumatic Eyes- PERRL. ENT- oropharynx clear Neck- supple, no JVD. Lungs- clear to auscultation no wheezing or crackles Heart- regular rhythm; no murmur, no gallop. Abdomen- normal bowel sounds, soft, nontender, no distension Extremities- Right leg s/p splint. Neuro- alert, oriented PERRL, no facial palsy; no dysarthria; Results & Data Results & Data Vital Signs (Past 12 Hours) Vital Signs Temp Pulse Pulse Resp BP BP Pulse Ox 10/30/24 02:12 85 17 160/115 H 96 10/30/24 01:04 84 10/30/24 00:46 96 10/30/24 00:23 36.9 C 90 18 165/105 H 96 O2 Del Method 10/30/24 02:12 Room Air 10/30/24 01:04 10/30/24 00:46 Room Air 10/30/24 00:23 Room Air Diagnostic Findings Laboratory Results WBC 7.04 K/ul (4.8-10.8) 10/30/24 01:17 RBC 4.11 M/uL (4.20-5.40) L 10/30/24 01:17 Hgb 12.4 g/dl (12.0-16.0) 10/30/24 01:17 POC Hgb 12.6 g/dl (12.0-16.0) 10/30/24 01:36 Hct 38.8 % (37.0-47.0) 10/30/24 01:17 POC Hct 37 % (37-47) 10/30/24 01:36 MCV 94.4 fL (80.0-100.0) 10/30/24 01:17 MCH 30.2 pg (25.0-34.0) 10/30/24 01:17 MCHC 32.0 g/dL (32.0-36.0) 10/30/24 01:17 RDW Std Deviation 49.1 fL (36.4-46.3) H 10/30/24 01:17 RDW Coeff of Lor 14.0 % (11.5-14.5) 10/30/24 01:17 Plt Count 160 K/uL (130-400) 10/30/24 01:17 MPV 10.5 fL (9.4-12.4) 10/30/24 01:17 Immature Gran % (Auto) 0.4 % 10/30/24 01:17 Neut % (Auto) 72.6 % 10/30/24 01:17 Lymph % (Auto) 12.6 % 10/30/24 01:17 [place] % (Auto) 10.2 % 10/30/24 01:17 Eos % (Auto) 3.3 % 10/30/24 01:17 Baso % (Auto) 0.9 % 10/30/24 01:17 Neut # (Auto) 5.11 K/uL (1.40-6.50) 10/30/24 01:17 Lymph # (Auto) 0.89 K/uL (1.20-3.40) L 10/30/24 01:17 [place] # (Auto) 0.72 K/uL (0.11-0.59) H 10/30/24 01:17 Eos # (Auto) 0.23 K/uL (0.00-0.50) 10/30/24 01:17 Baso # (Auto) 0.06 K/uL (0.00-0.20) 10/30/24 01:17 Immature Gran # (Auto) 0.03 K/uL (0.01-0.20) 10/30/24 01:17 PT 10.1 Seconds (9.0-12.0) 10/30/24 01:17 INR 0.9 (0.9-1.1) 10/30/24 01:17 APTT 25 Seconds (21-31) 10/30/24 01:17 PTT Ratio 0.9 10/30/24 01:17 POC Sodium 138 mmol/L (135-144) 10/30/24 01:36 Sodium 136 mmol/L (136-145) 10/30/24 01:17 POC Potassium 4.2 mmol/L (3.3-5.0) 10/30/24 01:36 Potassium 4.3 mmol/L (3.5-5.1) 10/30/24 01:17 POC Chloride 99 mmol/L (101-112) L 10/30/24 01:36 Chloride 101 mmol/L (98-107) 10/30/24 01:17 Carbon Dioxide 31 mmol/L (21-32) 10/30/24 01:17 POC Total CO2 27 mmol/L (24-31) 10/30/24 01:36 Anion Gap 4 (3-11) 10/30/24 01:17 POC Anion Gap 17.0 mmol/L (16-25) 10/30/24 01:36 POC BUN 24 mg/dl (7-18) H 10/30/24 01:36 BUN 24 mg/dl (6-23) H 10/30/24 01:17 Creatinine 0.85 mg/dl (0.6-1.2) 10/30/24 01:17 POC Creatinine 1.0 mg/dl (0.6-1.3) 10/30/24 01:36 Est Cr Clr Drug Dosing 94.1 ml/min 10/30/24 01:17 eGFR 77.90 10/30/24 01:17 BUN/Creatinine Ratio 28.2 (10-20) H 10/30/24 01:17 Glucose 124 mg/dl (70-99(Fasting)) H 10/30/24 01:17 POC Glucose (other) 123 mg/dl (70-99) H 10/30/24 01:36 Calcium 9.6 mg/dl (8.6-10.3) 10/30/24 01:17 POC Ioniz Calcium Lupe 1.21 mmol/l (1.12-1.32) 10/30/24 01:36 Total Bilirubin 0.3 mg/dl (0.2-1.0) 10/30/24 01:17 AST 15 U/L (13-39) 10/30/24 01:17 ALT 17 U/L (7-52) 10/30/24 01:17 Alkaline Phosphatase 95 U/L (34-104) 10/30/24 01:17 Total Protein 7.4 gm/dl (6.0-8.3) 10/30/24 01:17 Albumin 4.0 gm/dl (3.4-5.0) 10/30/24 01:17 Globulin 3.4 gm/dl (2.5-4.0) 10/30/24 01:17 Albumin/Globulin Ratio 1.2 (0.9-2) 10/30/24 01:17 Lipase 19 U/L (11-82) 10/30/24 01:17 Urine Color Yellow 10/30/24 02:21 Urine Appearance Clear (Clear) 10/30/24 02:21 Urine pH 6.0 (4.5-7.5) 10/30/24 02:21 Ur Specific [place] 1.011 (1.000-1.030) 10/30/24 02:21 Urine Protein Negative (Negative) 10/30/24 02:21 Urine Glucose (UA) Negative (Negative) 10/30/24 02:21 Urine Ketones Negative (Negative) 10/30/24 02:21 Urine Blood Negative (Negative) 10/30/24 02:21 Urine Nitrite Negative (Negative) 10/30/24 02:21 Urine Bilirubin Negative (Negative) 10/30/24 02:21 Urine Urobilinogen Negative (Negative) 10/30/24 02:21 Ur Leukocyte Esterase Negative (Negative) 10/30/24 02:21 Impressions Ankle X-Ray 10/30/24 00:34 EXAM: XR ankle RT min 3V routine CLINICAL HISTORY: fall TECHNIQUE: X-ray images of the right ankle were obtained in anteroposterior (AP), lateral, and mortise projections. COMPARISON: prior X-ray of the right ankle 04/26/2027 FINDINGS: Bone Structure: The previously seen spiral fracture at the distal fibular metaphysis currently showed healing, however with mal-alignment of the united fragments and possible fusion with the distal tibial metaphysis. Another slightly displaced fracture is currently seen at the medial malleolus (new) (of indeterminate age, probably a recent fracture). Bone density is normal. Joint Spaces: Degenerative changes are noted in the form of osteophytic formations. Soft Tissues: Mild edema of the subcutaneous tissues of the leg and ankle regions. IMPRESSION: - Fracutre at the medial malleolus (new). - Healed old fracture at the distal fibular metaphysis, however, with mal-alignment of the united fragments. - Mild degenerative changes. Disclaimer: A subtle bone abnormality or fracture may not be readily apparent on X-rays, thus clinical correlation and further imaging including follow-up CT, MRI, or follow-up X-rays are advised as needed. Electronically signed by Ulices Gutierrez 10-30-2024 01:40 AM Chest X-Ray 10/30/24 00:34 EXAM: XR chest 1V portable CLINICAL HISTORY: Trauma TECHNIQUE: An X-ray image of the chest is obtained in AP projection. COMPARISON: 06/10/2024 FINDINGS: Pulmonary Parenchyma: Lungs are clear bilaterally. No evidence of consolidation, collapse, or focal opacities. No pulmonary nodules are identified. Blunting of left costophrenic angle. Clear right costophrenic angle. Heart and Mediastinum: Heart size and shape are normal. No mediastinal widening or masses. No hilar or mediastinal lymphadenopathy. Bony Thorax: Bony thorax appears intact without fractures or deformities. Soft Tissues: Soft tissues overlying the chest wall are unremarkable. IMPRESSION: 1. Blunting of left costophrenic angle, could represent minimal pleural effusion/thickenning (unchanged). 2. No gross airspace opacities. Electronically signed by Ulices Gutierrez 10-30-2024 01:46 AM ECG Additional Comments: ECG. Normal sinus rhythm at a rate of 80. Nonspecific T wave abnormalities. Code Status & VTE Plan VTE Prophylaxis Plan VTE Prophylaxis will be ordered: Yes
--- OUTSIDE RECORDS SUMMARY | 2024-10-30 05:51 | External Medical Summary | Summary of Care ---
Author Name Unknown Organization [facility] Address [address] [place] [facility] [place] [address] Phone [phone] Care Team Providers Care Local Intermodal Truck Driver Name Role Phone Brian Salas DO Primary Care Provider [phone] Encounter Details Date Type Department Care Team (Late st Contact Info) Description 10/18/2024 Orders Only Family Practice [facility] [address] [place] [address] Brian Salas DO [address] [place] [address] Allergies Active Allergy Reactions Criticality Noted Date Comments Adhesive Tape High 06/18/2022 Other reaction(s): RASH, ITCHY Alcohol High 06/18/2022 Other reaction(s): Seizure Ethanol 07/30/2024 Hydantoins High 06/18/2022 Other reaction(s): Hives, Nausea Latex 03/29/2017 rash Phenytoin High 12/21/2021 Other Reaction(s): Itchy rash Phenytoin Sodium Rash 05/28/1999 Thioridazine High 06/18/2022 Other reaction(s): SEIZURES Torsemide 01/30/2021 ? possible rash on legs and arms Wound Dressing Adhesive Itching,Rash 03/05/2022 documented as of this encounter (statuses as of 10/18/2024) Medications lamoTRIgine (LAMICTAL) 200 MG TabletIndications:S chizoaffective [...] (Neurontin)Indicati ons:Polyneuropathy in other diseases classified elsewhere ([facility]) Take 1 Cap by mouth at bedtime. 30 Cap 5 05/11/20 21 Active Sertraline HCl 100 MG Oral Tablet (Zoloft)Indications :Major depressive disorder with single episode, in partial remission ([facility]) Take 1 Tab by mouth daily. 30 Tab 11 06/05/20 21 Active Systane 0.4-0.3 % Ophthalmic Solution (Polyethyl Glycol-Propyl Glycol) Instill 1 Drop into both eyes as needed for Dry eyes (may use 3- 4 times daily). Active Paliperidone ER 9 MG Oral Tablet Extended Release 24 Hour Take 1 Tablet by mouth daily. Active Vitamin D3 50 MCG (1999 UT) Oral Capsule Take by mouth 1 Capsule in the morning. 30 Capsule 5 11/14/19 22 Active BiPAP every night at bedtime . Active Vitron-C 65-125 MG Oral Tablet (Iron-Vitamin C) Take by mouth 1 Tablet in the morning AND 1 Tablet before bedtime. 180 Tablet 3 03/05/20 22 Active Perphenazine 8 MG Oral Tablet [...] taking differently: 2.5 mgOral QPM-1999, Reported on 08/21/2024 Paliperidone ER 6 MG Oral Tablet Extended [...] morning. 16.9 mL 5 07/05/20 23 Active Triamcinolone Acetonide 0.5 % External Cream (Aristocort)Indicat ions:Intrinsic eczema APPLY TOPICALLY TO AFFECTED AREA TWICE A DAY FOR 14 DAYS 45 g 1 08/04/19 24 Active Hydroxychloroquine Sulfate 200 MG Oral Tablet (Plaquenil) TAKE 2 TABLETS BY MOUTH EVERY NIGHT AT BEDTIME 56 Tablet 2 08/29/19 24 Active Mirabegron ER 50 MG Oral Tablet Extended Release 24 Hour (Myrbetriq) Take 1 Tablet by mouth every evening. 90 Tablet 3 05/03/20 24 Active Levothyroxine Sodium 200 MCG Oral Tablet (Levoxyl) Take 1 Tablet by mouth in the morning. (at least 30 min prior to breakfast or other meds). 90 Tablet 3 05/18/20 24 Active Spironolactone 25 MG Oral Tablet (Aldactone)Indicati [...] bedtime. 270 Tablet 11 06/27/20 24 Active Sotalol HCl 80 MG Oral Tablet (Betapace)Indicatio ns:PAF (paroxysmal atrial 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) (HCC) TAKE 1/2 TABLET BY MOUTH TWICE A DAY *HOLD FOR HEART RATE LESS THAN 60 OR SYSTOLIC BLOOD PRESSURE LESS THAN 100 &NOTIFY SERVICE IF DOSE 28 Tablet 8 07/30/20 24 Active Montelukast Sodium 10 MG Oral Tablet (Singulair)Indicati ons:Mixed rhinitis,Moderate persistent asthma without complication Take 1 Tablet by mouth at bedtime. 30 Tablet 6 07/27/20 24 Active busPIRone HCl 10 MG Oral Tablet (Buspar) Take 1 Tablet by mouth in the morning and 1 Tablet at noon and 1 Tablet before bedtime. 08/15/19 25 Active Potassium Chloride ER 10 MEQ Oral Tablet Extended ReleaseIndications: HTN, goal below 140/90,PAF (paroxysmal atrial 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) (HCC),ROSALES (dyspnea on exertion) TAKE 1 TABLET BY MOUTH DAILY 28 Tablet 5 08/22/19 25 Active hydroCHLOROthiazide 12.5 MG Oral CapsuleIndications: HTN, goal below 140/90,Shortness of breath Take 1 Capsule by mouth in the morning. Every morning.. 90 Capsule 3 08/27/19 25 Active Losartan Potassium 100 MG Oral Tablet (Cozaar) TAKE 1 TABLET BY MOUTH DAILY 90 Tablet 1 09/18/19 25 Active Rosuvastatin Calcium 5 MG Oral Tablet (Crestor)Indication s:Dyslipidemia, goal LDL below 130 Take 1 Tablet by mouth in the morning. 90 Tablet 09/24/19 25 Active Breo Ellipta 200-25 MCG/ACT Inhalation Aerosol Powder Breath Activated (fluticasone furoate-vilanterol) Indications:Moderat e persistent asthma without complication INHALE 1 PUFF BY MOUTH DAILY 60 Each 5 10/02/19 25 Active tiZANidine HCl 4 MG Oral Tablet (Zanaflex)Indicatio ns:Acute pain of left shoulder TAKE 1 TABLET BY MOUTH EVERY 8 HOURS NEEDED FOR MUSCLE SPASMS 30 Tablet 5 10/17/19 25 Active documented as of this encounter (statuses as of 10/18/2024) Active Problems Problem Noted Date Diagnosed Date Suicide attempt 08/15/2024 DNR (do not resuscitate) 06/27/2024 POLST (Physician [...] disorder, bipolar type 1 Morbid obesity 11/05/2020 Major depressive disorder, single [...] as of this encounter (statuses as of 10/18/2024) Resolved Problems Problem Noted Date Diagnosed Date [...] 09/25/2012 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/31/2010 10/08/19 11 manager intermediate current use of ant icoagulant therapy 08/31/2010 05/19/2011 Overview (05/02/2017): ICD-10 update of inactive term Dysfunction of eustachian tube 08/17/2010 05/19/2011 Hypersomnia with sleep apnea 08/17/2010 01/15/2023 OTITIS MEDIA, CHRONIC, LEFT 08/17/2010 05/19/2011 Abnormality of gait 03/24/2010 06/18/20 14 ACTIVE CASE MANAGEMENT Kadie Fitzgerald [id number] 01/06/20 10 05/18/2010 Overview (05/18/2010): ACTIVE CASE MANAGEMENT Kadie Fitzgerald [id number] Dyslipidemia, [...] as of this encounter (statuses as of 10/18/2024) Immunizations Name Administration Dates Next Due COVID-19 mRNA, LNP-s, No Pre serve, 2-Dose Series (Moderna) 11/03/2020,10/06/2020 COVID-19 mRNA, LNP-s, No Pre serve, 2-Dose Series (Pfizer) 06/08/2021 Covid-19, Mrna, Lnp-s, Pf, B ivalent, 30 Mcg, IM, 12 yrs and above (Pfizer) 05/05/2022 H1N1 2009 Influenza, IM 08/15/2009 Hepatitis B, 20+ yrs 01/16/2014,04/06/2013,03/05 PPD 02/27/2013 Pneumococcal Conjugate Vacci ne, 20-valent ([id number]) 03/05/2022 Pneumococcal Polysaccharide PPV23 (Pneumovax) 03/31/2009 Seasonal [...] Answer Date Recorded PHQ Adult Total Score 13 10/16/2024 Hunger Vital Sign Answer Date Recorded Within the past 12 months, y ou worried that your food would run out before you got the money to buy more. Never true 07/30/20 24 Within the past 12 months, t he food you bought just didn't last and you didn't have money to get more. Never true 07/30/2024 Childcare Answer Date Recorded Do you feel overwhelmed with taking care of a child, family member or friend? No 07/30/2024 Does your family need help f inding childcare? (Household - for ages 0-17 years) Not on file 07/30/2024 Clothing Answer Date Recorded Have you been unable to get clothing when it was really needed? No 07/30/2024 Is your family able to get c lothes or diapers when needed? (Household - for ages 0-17 years) Not on file 07/30/2024 Personal Safety Answer Date Recorded Do you feel unsafe or have concerns for your saf ety? Yes 07/30/2024 Do you have concerns for you r family's safety? (Household - for ages 0-17 years) Not on file 07/30/2024 Utilities Answer Date Recorded Do you have trouble paying y our heating, water, or electric bill? No 07/30/2024 Is your family able to pay t he heat, water, or electric bill? (Household - for ages 0-17 years) Not on file 07/30/2024 Does your family have access to good internet? (Household - for ages 0-17 years) Not on file 07/30/2024 Employment Status Answer Date Recorded Are you unemployed or without regular income? No 07/30/2024 Does the household have a re gular source of income? (Household - for ages 0-17 years) Not on file 07/30/2024 Social Connections Answer Date Recorded How often do you feel lonely or isolated from th ose around you? Always 07/30/2024 Financial Resource Strain Answer Date R ecorded Do you have any trouble payi ng for your medications, or do you think you might in the future? No 07/30/2024 Does your family have troubl e paying for medicine? (Household - for ages 0-17 years) Not on file 07/30/2024 Transportation Needs Answer Date Record ed Do you have trouble getting a ride to medical visits or work? (Adult - for ages 18 years and over) Not on file 07/30/2024 Does your family have a hard time getting a ride to doctors visits? (Household - for ages 0-17 years) Not on file 07/30/2024 Has lack of transportation k ept you from medical appointments, meetings, work, or from getting things needed for daily living? Check all that apply. No 07/30/2024 Do you (or your family) have trouble finding or paying for a ride (transportation)? (Household - for ages 0-17 years) Not on file 07/30/2024 Housing Stability Answer Date Recorded Do you currently live in a s helter or have no steady place to sleep at night? No 07/30/2024 Do you think you are at risk of becoming homeless? (Adult - for ages 18 years and over) Not on file 07/30/2024 Does your family worry about paying for your home or becoming homeless? (Household - for ages 0-17 years) Not on file 1 Are you homeless or worried that you might be in the future? Yes 07/30/2024 Are you (or your family) elroy eless or worried that you might be in the future? (Household - for ages 0-17 years) Not on file Food Insecurity Answer Date Recorded Do you need food for this week? No 07/30/2024 Are you able to get enough f ood for your family? (Household - for ages 0-17 years) Not on file 07/30/2024 Does your family need food t his week? (Household - for ages 0-17 years) Not on file 07/30/2024 Do you always have enough fo od for your family? (Household - for ages 0-17 years) Not on file 07/30/2024 Food Insecurity Answer Date Recorded Within the past 12 months, y ou worried that your food would run out before you got the money to buy more. Never true 07/30/20 24 Within the past 12 months, t he food you bought just didn't last and you didn't have money to get more. Never true 07/30/2024 Do you need food for this week? No 07/30/2024 Comments No Sex and Gender Information Value [...] Care Team (Late st Contact Info) Description 03/12/2025 11:20 AM EDT Office Visit Sleep Disorders Ctr [facility] [address] [place] [phone] Charlette Brannon DO [address] [address] 04/09/2025 8:30 AM EDT Office Visit Pulmonary Medicine, [facility] [address] [place] [address] Yo Abreu MD [address] [place] [address] 05/21/2025 9:25 AM EDT Office Visit Urogynecology [facility] [address] [place] [address] Del Baron MD [address] [place] [address] Nurse Trae Tucker [address] [place] [address] 06/04/2025 8:20 AM EST Office Visit Family Practice [facility] [address] [place] [address] Brian Salas DO [address] [place] [address] 08/22/2025 8:30 AM EST Office Visit Cardiology, [facility] [address] [place] [address] Griselda Cody CRNP [address] [place] [address] Scheduled Procedures Name Priority Associated Diagnoses Date/Ti [...] 10/30, 12/13/2022, Additional history exists GFR 06/20/2025 07/18/2024, 06/02, 06/13/2024, Additional history exists Depression Monitoring 10/16/2025 10/16/2024 Albumin/Creatinine Ratio 12/13/2025 12/13/2022 Lipid Panel 09/11/2026 07/18/2024, 09/01, 06/05/2021, Additional history exists Diabetes Screening 06/20/2027 07/18/2024, 1 08/20/2023, 06/13/2024, Additional history exists Colonoscopy 12/04/2031 12/03/2021, 05/0 11/2021, 06/07/2018, Additional history exists Colorectal Cancer Screening 12/04/2031 Hepatitis B Vaccine Completed 01/16/2014, 04/06/2013, 03/05/2013 Zoster Vaccines Completed 05/11/2021, 05/21/2020 Pneumococcal Vaccine: 50+ Years Completed 03/05/2022, 03/31/2009 Influenza Vaccine (FLU shot) Completed , 04/21/2023, 04/01/2023, Additional history exists HPV (Gardasil) Vaccine Aged Out No lo nger eligible based on patient's age to complete this topic MENINGOCOCCAL (MENACTRA/MENVEO) Aged Out No longer eligible based on patient's age to complete this topic Meningitis B Vaccine (Bexsero/Trumemba) Aged Out No longer eligible based on patient's age to complete this topic documented as of this encounter Medical Devices Not on filedocumented as of this encounter Procedures Procedure Name Priority Date/Time Associated Diagnosis Comments CHEMISTRY-OUTSIDE Routine 07/18/2024 documented in this encounter Results * (ABNORMAL) CHEMISTRY-OUTSIDE (07/18/2024) Not all results display below - see scan for full detail OUTSIDE LAB (SEE SCANNED REPORT) Comment:SCAN INCLUDES - INPT LABS: BMP, MG, LIPID PANEL CREATININE 0.70 0.6 - 1.2 MG/DL OUTSIDE LAB (SEE SCANNED REPORT) EGFR 98.34 OUTSIDE LA B (SEE SCANNED REPORT) POTASSIUM 3.1(A) 3.5 - 5.1 MMOL/L OUTSIDE LAB (SEE SCANNED REPORT) GLUCOSE 107(A) 70 - 99 MG/DL OUTSIDE LAB (SEE SCANNED REPORT) HOURS FASTING OUTSID E LAB (SEE SCANNED REPORT) TRIGLYCERIDES-OUT SIDE LAB 76 0 - 150 MG/DL OUTSIDE LAB (SEE SCANNED REPORT) CHOLESTEROL-OUTSI DE LAB 131 0 - 200 MG/DL OUTSIDE LAB (SEE SCANNED REPORT) HDL-OUTSIDE LAB 46 40 - 60 MG/DL OUTSIDE LAB (SEE SCANNED REPORT) CHOL/HDL RATIO-OUTSIDE LAB 2.8 0 - 5 OUTSIDE LA B (SEE SCANNED REPORT) LDL (CALCULATED)-OUTS LEELA LAB 70 <100 MG/DL OUTSIDE LAB (SEE SCANNED REPORT) LDL (DIRECT MEASURE)-OUTSIDE LAB OUTSIDE LAB (SEE SCANNED REPORT) HEMOGLOBIN, [id number] LAB OUTSIDE LAB (SEE SCANNED REPORT) PHOSPHORUS-OUTSID E LAB OUTSIDE LAB (SEE SCANNED REPORT) PTH-OUTSIDE LAB OUTS [facility]A LAB (SEE SCANNED REPORT) MICROALBUMIN RATIO-OUTSIDE LAB OUTSIDE LA B (SEE SCANNED REPORT) PROTEIN, UA-OUTSIDE LAB OUTSIDE LAB (SEE SCANNED REPORT) HGB OUTSIDE LA B (SEE SCANNED REPORT) 07/18/2024 us [facility] Valeria l Result OUTSIDE LAB (SEE SCANNED REPORT) documented in this encounter Advance Directives Documents on File Type Date Recorded Patient Chief Client Officer Expl anation POLST 07/13/2024 signed on 06/27 Care Teams Local Intermodal Truck Driver Relationship Specialty Start Date End Date Brian Salas DO [address] [place] [address] PCP - General Family Medicine 12/16/15 documented as of this encounter
--- OUTSIDE RECORDS SUMMARY | 2024-10-30 05:51 | External Medical Summary | Summary of Care ---
Author Name Unknown Organization [facility] Address [address] [place] [facility] [place] [address] Phone [phone] Care Team Providers Care Cellophaner Name Role Phone Sami Salas DO Primary Care Provider [phone] Reason for Visit * Reason Comments eRx-Medication Refill Encounter Details Date Type Department Care Team (Late st Contact Info) Description 10/16/2024 Refill Family Practice [facility] [address] [facility] [place] [address] Shannon Urrutia PA-C [address] [facility] [address] [place] [address] Acute pain of left shoulder Allergies Active [...] as of this encounter (statuses as of 10/17/2024) Medications lamoTRIgine (LAMICTAL) 200 MG TabletIndications: Schizoaffective disorder, chronic condition ([facility]) TAKE 1 TABLET BY MOUTH TWICE DAILY MOOD DISORDER 180 Tab 1 018 Active Vitamin B-2 100 MG Oral Tablet (vitamin B-2) TAKE 4 TABLETS (400MG) BY MOUTH DAILY 112 Tab 4 020 Active Mirtazapine 30 MG Oral Tablet (REMERON) TAKE 1 TABLET BY MOUTH EVERYDAY AT BEDTIME 30 Tab 5 Active Melatonin 3 MG Oral CapsuleIndications :Primary insomnia Take 1 Cap by mouth at bedtime. 90 Cap 3 021 Active Gabapentin 300 MG Oral Capsule (Neurontin)Indicat ions:Polyneuropath y in other diseases classified elsewhere ([facility]) Take 1 Cap by mouth at bedtime. 30 Cap 5 021 Active Sertraline HCl 100 MG Oral Tablet (Zoloft)Indication s:Major depressive disorder with single episode, in partial remission ([facility]) Take 1 Tab by mouth daily. 30 [...] the morning. 30 Capsule 5 022 Active BiPAP every night at bedtime . Active Vitron-C 65-125 MG Oral Tablet (Iron-Vitamin C) Take by mouth 1 Tablet in the morning AND 1 Tablet before bedtime. 180 Tablet 3 022 Active Perphenazine 8 MG Oral Tablet Active Ventolin HFA 108 (90 Base) MCG/ACT Inhalation Aerosol Solution INHALE 2 PUFFS BY MOUTH EVERY FOUR HOURS NEEDED FOR WHEEZING 18 g 5 023 Active Pantoprazole Sodium 40 MG Oral Tablet Delayed Release (Protonix) Take 1 Tablet by mouth in the morning. 90 Tablet 3 023 Active Levocetirizine Dihydrochloride 5 MG Oral Tablet [...] the morning. 16.9 mL 5 023 Active Triamcinolone Acetonide 0.5 % External Cream (Aristocort)Indica tions:Intrinsic eczema APPLY TOPICALLY TO AFFECTED AREA TWICE A DAY FOR 14 DAYS 45 g 1 Active Hydroxychloroquine Sulfate 200 MG Oral Tablet (Plaquenil) TAKE 2 TABLETS BY MOUTH EVERY NIGHT AT BEDTIME 56 Tablet 2 024 Active Mirabegron ER 50 MG Oral Tablet Extended Release 24 Hour (Myrbetriq) Take 1 Tablet by mouth every evening. 90 Tablet 3 024 Active Levothyroxine Sodium 200 MCG Oral Tablet (Levoxyl) Take 1 Tablet by mouth in the morning. (at least 30 min prior to breakfast or other meds). 90 Tablet 3 024 Active Spironolactone 25 MG Oral Tablet (Aldactone)Indicat [...] before bedtime. 270 Tablet 11 024 Active Sotalol HCl 80 MG Oral [...] at bedtime. 30 Tablet 6 024 Active busPIRone HCl 10 MG Oral Tablet (Buspar) Take 1 Tablet by mouth in the morning and 1 Tablet at noon and 1 Tablet before bedtime. 025 Active Potassium Chloride ER 10 MEQ Oral Tablet Extended ReleaseIndications :HTN, goal below 140/90,PAF (paroxysmal atrial 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) (HCC),ROSALES (dyspnea on exertion) TAKE 1 TABLET BY MOUTH DAILY 28 Tablet 5 025 Active hydroCHLOROthiazid e 12.5 MG Oral CapsuleIndications :HTN, goal below 140/90,Shortness of breath Take 1 Capsule by mouth in the morning. Every morning.. 90 Capsule 3 025 Active Losartan Potassium 100 MG Oral Tablet (Cozaar) TAKE 1 TABLET BY MOUTH DAILY 90 Tablet 1 025 Active Rosuvastatin Calcium 5 MG Oral Tablet (Crestor)Indicatio ns:Dyslipidemia, goal LDL below 130 Take 1 Tablet by mouth in the morning. 90 Tablet 025 Active Breo Ellipta 200-25 MCG/ACT Inhalation Aerosol Powder Breath Activated (fluticasone furoate-vilanterol )Indications:Moder ate persistent asthma without complication INHALE 1 PUFF BY MOUTH DAILY 60 Each 5 025 Active tiZANidine HCl 4 MG Oral Tablet (Zanaflex)Indicati ons:Acute pain of left shoulder TAKE 1 TABLET BY MOUTH EVERY 8 HOURS NEEDED FOR MUSCLE SPASMS 30 Tablet 5 025 Active tiZANidine HCl 4 MG Oral Tablet (Zanaflex)Indicati ons:Acute pain of left shoulder TAKE 1 TABLET BY MOUTH EVERY 8 HOURS NEEDED FOR MUSCLE SPASMS 30 Tablet 5 024 2024 Discontinued documented as of this encounter (statuses as of 10/17/2024) Active Problems Problem Noted Date Diagnosed Date [...] as of this encounter (statuses as of 10/17/2024) Resolved Problems Problem Noted Date Diagnosed Date [...] 1 09/25/2012 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/31/2010 10/08/19 11 correction current use of ant icoagulant therapy 08/31/2010 [...] as of this encounter (statuses as of 10/17/2024) Immunizations Name Administration Dates Next Due COVID-19 mRNA, LNP-s, No Pre serve, 2-Dose Series (Moderna) 11/03/2020,10/06/2020 COVID-19 mRNA, LNP-s, No Pre serve, 2-Dose Series (Pfizer) 06/08/2021 Covid-19, Mrna, Lnp-s, Pf, B ivalent, 30 Mcg, IM, 12 yrs and above (Pfizer) 05/05/2022 H1N1 2009 Influenza, IM 08/15/2009 Hepatitis B, 20+ yrs 01/16/2014,04/06/2013,03/05 PPD 02/27/2013 Pneumococcal Conjugate Vacci ne, 20-valent ([id number]) 03/05/2022 Pneumococcal Polysaccharide PPV23 (Pneumovax) 03/31/2009 Seasonal [...] 07/30/2024 Does the household have a re lar [...] Miscellaneous Notes * Telephone Encounter - Sami Salas DO - 10/16/2024 4:51 PM EDTSigned Prescriptions: Disp Refills tiZANidine HCl 4 MG Oral Tablet (Zanaflex) 30 Tab*5 Sig: TAKE 1 TABLET BY MOUTH EVERY 8 HOURS NEEDED FOR MUSCLE SPASMS Authorizing Provider: SAMI SALAS * Telephone Encounter - Sami Salas DO - 10/16/2024 4:51 PM EDTSigned Prescriptions: Disp Refills tiZANidine HCl 4 MG Oral Tablet (Zanaflex) 30 Tab*5 Sig: TAKE 1 TABLET BY MOUTH EVERY 8 HOURS NEEDED FOR MUSCLE SPASMS Authorizing Provider: SAMI SALAS * Telephone Encounter - Charito Morales RN - 10/16/2024 1:58 PM EDTPending Prescriptions: Disp Refills tiZANidine HCl 4 MG Oral Tablet [Pharmacy *30 Tab*5 Sig: TAKE 1 TABLET BY MOUTH EVERY 8 HOURS NEEDED FOR MUSCLE SPASMS * Telephone Encounter - Demetri Page - 10/16/2024 1:27 PM EDTPending Prescriptions: Disp Refills tiZANidine HCl 4 MG Oral Tablet [Pharmacy *30 Tab*5 Sig: TAKE 1 TABLET BY MOUTH EVERY 8 HOURS NEEDED FOR MUSCLE SPASMS * Telephone Encounter - Andria Pantoja CPhT - 10/16/2024 9:55 AM EDT Did you pend patient's preferred pharmacy and medication before forwarding?yes Pharmacy: [facility] - [id number] [place] Pending Prescriptions: Disp Refills tiZANidine HCl 4 MG Oral Tablet (Zanaflex*30 Tab*5 Sig: TAKE 1 TABLET BY MOUTH EVERY 8 HOURS NEEDED FOR MUSCLE SPASMS Last Visit: 08/15/2024 (in office), Visit date not found (telemedicine) Next Visit: 06/04/2025 If no future appointments scheduled, and last appointment is greater than a year ago, please schedule patient for a follow-up appointment Last date the medication was ordered: 04/09/2024 Is this request for a controlled substance?No Urine Drug Screen:No results found. However, due to the size of the patient record, not all encounters were searched. Please check Results Review for a complete set of results. Patient Phone Numbers Labs: Lab Results Component Value Date/Time CREAT 0.7 06/20/2024 06:25 AM CREAT 0.9 08/19/2020 10:23 AM POTASSIUM 4.2 06/20/2024 06:25 AM POTASSIUM 5.2 (H) 08/19/2020 10:23 AM POTASSIUM 4.5 09/10/1996 10:55 AM TSH 0.08 (L) 05/15/2024 01:56 PM TSH 9.19 (H) 08/19/2020 10:23 AM TSH 3.77 09/10/1996 10:55 AM LDL 80 09/11/2021 02:23 PM LDL 163 (H) 05/09/2020 08:31 AM LDL 134 (H) 12/29/2018 09:06 AM ALT 20 05/26/2023 07:56 AM ALT 18 03/16/2019 12:02 PM HGBA1C 5.4 05/15/2024 01:56 PM HGBA1C 6.4 (H) 05/09/2020 08:31 AM HGBA1C 5.3 09/24/1996 09:45 AM documented in this encounter Plan of Treatment Upcoming Encounters Date Type Department Care Team (Late st Contact Info) Description 03/12/2025 11:20 AM EDT Office Visit Sleep Disorders Ctr [facility] [place] [address] [place] [phone] Charlette Brannon, DO [address] [place] [address] 04/09/2025 8:30 AM EDT [facility] [address] [place] [address] Yo Abreu MD [address] [place] [address] 05/21/2025 9:25 AM EDT Office Visit Urogynecology [facility] [address] [place] [address] Del Baron MD [address] [place] [address] Nurse Trae Tucker [address] [place] [address] 06/04/2025 8:20 AM EST Office Visit Family Practice [facility] [address] [facility] [place] [address] Sami Salas, DO [address] [facility] [place] [address] 08/22/2025 8:30 AM EST Office Visit Cardiology, [facility] [address] [place] [address] Griselda Cody CRNP [address] [place] [address] Scheduled Procedures Name Priority Associated Diagnoses Date/Ti [...] 06/01, 05/15/2024, Additional history exists Depression Monitoring 10/16/2025 10/16/2024 Albumin/Creatinine Ratio 12/13/2025 12/13/2022 Lipid Panel 09/11/2026 09/11/2021, 110 11/2020, 04/17/2021, Additional history exists Diabetes Screening [...] of left shoulder documented in this encounter Advance Directives Documents on File Type Date Recorded Patient Braider Operator Expl anation POLST 07/13/2024 signed on 06/27 Care Teams Cellophaner Relationship Specialty Start Date End Date Sami Salas DO [address] [facility] [place] [address] PCP - General Family Medicine 12/16/15 documented as of this encounter
--- OUTSIDE RECORDS SUMMARY | 2024-10-30 05:52 | External Medical Summary | Summary of Care ---
Author Name Unknown Organization [facility] Address [address] [place] [address] Phone [phone] Care Team Providers Care Parking Line Painter Name Role Phone Brian Salas DO Primary Care Provider [phone] Reason for Visit * Reason Onset Date Comments Appointment 10/03/2024 Encounter Details Date Type Department Care Team (Late st Contact Info) Description 10/03/2024 Telephone Family Practice [facility] [place] [address] [place] [address] Brian Salas DO 200 [facility] [place] [address] Appointment Allergies Active Allergy Reactions Criticality Noted [...] as of this encounter (statuses as of 10/11/2024) Medications lamoTRIgine (LAMICTAL) 200 MG TabletIndications:S chizoaffective [...] (Neurontin)Indicati ons:Polyneuropathy in other diseases classified elsewhere ([facility]) Take 1 Cap by mouth at bedtime. 30 Cap 5 05/11/20 21 Active Sertraline HCl 100 MG Oral Tablet (Zoloft)Indications :Major depressive disorder with single episode, in partial remission ([facility]) Take 1 Tab by mouth daily. [...] Tablets by mouth once. 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 08/31/2010 [...] as of this encounter (statuses as of 10/11/2024) Immunizations Name Administration Dates Next Due COVID-19 mRNA, LNP-s, No Pre serve, 2-Dose Series (Moderna) 11/03/2020,10/06/2020 COVID-19 mRNA, LNP-s, No Pre serve, 2-Dose Series (Pfizer) 06/08/2021 Covid-19, Mrna, Lnp-s, Pf, B ivalent, 30 Mcg, IM, 12 yrs and above (Pfizer) 05/05/2022 H1N1 2009 Influenza, IM 08/15/2009 Hepatitis B, 20+ yrs 01/16/2014,04/06/2013,03/05 PPD 02/27/2013 Pneumococcal Conjugate Vacci ne, 20-valent ([id number]) 03/05/2022 Pneumococcal Polysaccharide PPV23 (Pneumovax) 03/31/2009 Seasonal [...] Date Recorded PHQ Adult Total Score 13 09/11/2024 Hunger Vital Sign Answer Date Recorded Within [...] encounter Miscellaneous Notes * Telephone Encounter - Liana Palacios OSA - 10/05/2024 7:56 AM EST Pt returning missed call. She canceled appt at this time due to insurance being OON * Telephone Encounter - Mahi Humphreys OSA - 10/04/2024 6:31 PM EST Left message offering to reschedule appointment on 11/20/24 to a 40 minute appointment. * Telephone Encounter - Mahi Humphreys OSA - 10/03/2024 2:32 PM EST Thank you for being a valued patient with [facility] [facility]. As part of [employer] [facility]'s continued effort to make better health easy, we are offering longer appointments to a subset of our patients who we think would benefit from more time with their providers. This is our way of ensuring that patients have easier access to the care they need, to stay as healthy as possible. Unable to leave message offering to reschedule appointment on 11/20/24 to a 40 minute appointment. documented in this encounter Plan of Treatment Upcoming Encounters Date Type Department Care Team (Late st Contact Info) Description 03/12/2025 11:20 AM EDT Office Visit Sleep Disorders Ctr [facility] [address] [place] [phone] Charlette Brannon DO 132 [place] [address] 04/09/2025 8:30 AM EDT Office Visit Pulmonary Medicine, [facility] 132 [facility] [place] [address] Yo Abreu MD [address] [facility] [place] [address] 05/21/2025 9:25 AM EDT Office Visit Urogynecology [facility] [address] [place] [address] Del Baron MD [address] [place] [address] Nurse Trae Tucker [address] [place] [address] 08/22/2025 8:30 AM EST Office Visit Cardiology, [facility] [address] [place] [address] Griselda Cody CRNP [address] [place] [address] Scheduled Procedures Name Priority Associated Diagnoses Date/Ti [...] 06/01, 05/15/2024, Additional history exists Depression Monitoring 09/11/2025 09/11/2024 Albumin/Creatinine Ratio 12/13/2025 12/13/2022 Lipid Panel 09/11/2026 09/11/2021, 1111/2020, 04/17/2021, Additional history exists Diabetes Screening 06/20/2027 [...] Not on filedocumented as of this encounter Advance Directives Documents on File Type Date Recorded Patient Gear Tooth Lapping Machine Operator Fabiola JACKSON 07/13/2024 signed on 06/27 Care Teams Parking Line Painter Relationship Specialty Start Date End Date Brian Salas DO 200 [facility] [place] [place] [place] [address] PCP - General Family Medicine 12/16/15 documented as of this encounter
--- OUTSIDE RECORDS SUMMARY | 2024-10-30 05:52 | External Medical Summary | Summary of Care ---
Author Name Unknown Organization [facility] Address [address] [place] [address] Phone [phone] Care Team Providers Care Superintendent Track Name Role Phone Brian Salas DO Primary Care Provider [phone] Reason for Visit * Reason Onset Date Comments Appointment 10/03/2024 Encounter Details Date Type Department Care Team (Late st Contact Info) Description 10/03/2024 Telephone Family Practice [facility] [place] 200 [facility] [place] [address] Brian Salas DO 200 [facility] [place] [address] Appointment Allergies Active Allergy Reactions Criticality Noted [...] as of this encounter (statuses as of 10/03/2024) Medications lamoTRIgine (LAMICTAL) 200 MG TabletIndications:S chizoaffective [...] (Neurontin)Indicati ons:Polyneuropathy in other diseases classified elsewhere ([facility]) Take 1 Cap by mouth at bedtime. 30 Cap 5 05/11/20 21 Active Sertraline HCl 100 MG Oral Tablet (Zoloft)Indications :Major depressive disorder with single episode, in partial remission ([facility]) Take 1 Tab by mouth daily. 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 08/31/2010 [...] as of this encounter (statuses as of 10/03/2024) Immunizations Name Administration Dates Next Due COVID-19 mRNA, LNP-s, No Pre serve, 2-Dose Series (Moderna) 11/03/2020,10/06/2020 COVID-19 mRNA, LNP-s, No Pre serve, 2-Dose Series (Pfizer) 06/08/2021 Covid-19, Mrna, Lnp-s, Pf, B ivalent, 30 Mcg, IM, 12 yrs and above (Pfizer) 05/05/2022 H1N1 2009 Influenza, IM 08/15/2009 Hepatitis B, 20+ yrs 01/16/2014,04/06/2013,03/05 PPD 02/27/2013 Pneumococcal Conjugate Vacci ne, 20-valent ([id number]) 03/05/2022 Pneumococcal Polysaccharide PPV23 (Pneumovax) 03/31/2009 Seasonal [...] encounter Miscellaneous Notes * Telephone Encounter - Mahi Humphreys OSA - 10/03/2024 2:32 PM EST Thank you for being a valued patient with [facility]. As part of [facility]'s continued effort to make better health easy, [...] Care Team (Late st Contact Info) Description 11/20/2024 10:00 AM EDT Office Visit [facility] [address] [place] [address] Brian Salas, DO [address] [place] [address] 03/12/2025 11:20 AM EDT Office Visit Sleep Disorders Ctr [facility] 132 [facility] [place] [phone] Charlette Brannon DO 132 [facility] [place] [address] 04/09/2025 8:30 AM EDT Office Visit Pulmonary Medicine, [facility] 132 [facility] [place] [address] Yo Abreu MD [address] [place] [address] 05/21/2025 9:25 AM EDT Office Visit Urogynecology [facility] 132 [facility] [place] [address] Del Baron MD 132 [facility] [place] [address] Nurse Trae Tucker [facility] 132 [place] [address] 08/22/2025 8:30 AM EST Office Visit Cardiology, [facility] 132 [facility] [place] [address] Griselda Cody CRNP [address] [facility] [place] [address] Scheduled Procedures Name Priority Associated Diagnoses Date/Ti [...] Documents on File Type Date Recorded Patient Biostatistician Expl anation POL 07/13/2024 signed on 06/27 Care Teams Superintendent Track Relationship Specialty Start Date End Date Brian Salas DO [address] [place], [place] [id number] PCP - General Family Medicine 12/16/15 documented as of this encounter
--- OUTSIDE RECORDS SUMMARY | 2024-10-30 05:52 | External Medical Summary | Summary of Care ---
Author Name Unknown Organization [facility] Address [address] [place] [address] Phone [phone] Care Team Providers Care Quarter Inspector Name Role Phone Brian Salas DO Primary Care Provider [phone] Reason for Visit * Reason Onset Date Comments Med Request 09/24/2024 Encounter Details Date Type Department Care Team (Late st Contact Info) Description 09/24/2024 Telephone Cardiology, [facility] [address] [facility] [place] [address] Griselda Cody CRNP [address] [place] [place] [address] Med Request Allergies Active Allergy Reactions Criticality Noted Date [...] as of this encounter (statuses as of 09/25/2024) Medications lamoTRIgine (LAMICTAL) 200 MG TabletIndications:S chizoaffective [...] BEDTIME 56 Tablet 2 08/29/19 24 Active Breo Ellipta 200-25 MCG/ACT Inhalation Aerosol Powder Breath Activated (fluticasone furoate-vilanterol) Indications:Moderat e persistent asthma without complication INHALE 1 PUFF BY MOUTH DAILY 60 Each 5 03/26/20 24 Active tiZANidine HCl 4 MG Oral [...] the morning. 90 Tablet 09/24/19 25 Active Rosuvastatin Calcium 5 MG Oral Tablet (Crestor)Indication s:Dyslipidemia, goal LDL below 130 TAKE 1 TABLET BY MOUTH DAILY 28 Tablet 1 07/31/20 24 025 Discontin ued(Refil l) documented as of this encounter (statuses as of 09/25/2024) Active Problems Problem Noted Date Diagnosed Date [...] as of this encounter (statuses as of 09/25/2024) Resolved Problems Problem Noted Date Diagnosed Date [...] as of this encounter (statuses as of 09/25/2024) Immunizations Name Administration Dates Next Due COVID-19 mRNA, LNP-s, No Pre serve, 2-Dose Series (Moderna) 11/03/2020,10/06/2020 COVID-19 mRNA, LNP-s, No Pre serve, 2-Dose Series (Pfizer) 06/08/2021 Covid-19, Mrna, Lnp-s, Pf, B ivalent, 30 Mcg, IM, 12 yrs and above (Pfizer) 05/05/2022 H1N1 2009 Influenza, IM 08/15/2009 Hepatitis B, 20+ yrs 01/16/2014,04/06/2013,03/05 PPD 02/27/2013 Pneumococcal Conjugate Vacci ne, 20-valent ([id number]) 03/05/2022 Pneumococcal Polysaccharide PPV23 (Pneumovax) 03/31/2009 Seasonal [...] money to buy more. Never true 07/30/20 Within the past 12 months, t he [...] encounter Miscellaneous Notes * Telephone Encounter - Citlali Quach PHARM Tech - 09/24/2024 12:22 PM EST Received message from [facility] regarding patient needing labs. Call Placed, Pt was agreeable to have labs drawn but would prefer to walk-in at their convenience. Thank you, Citlali Quach [facility] Billet Inspector III [facility] 09/24/2024,12:22 PM * Telephone Encounter - Ernst Hale [facility] - 09/24/2024 10:24 AM EST Provided 90 days supply with 0 refill(s). Per refill protocol patient should have Lipid panel on file within past year. Lab orders placed. Please contact patient to advise of labs ordered for blood draw. Recommend patient to fast if able for labs. Patient may still have water and regular medications. Advise to obtain labs before requesting the next refill. Thanks, Ernst Hale PharmD Clinical Pharmacist [facility] [phone] 09/24/2024, 10:24 AM * Telephone Encounter - Meena Griffin intake assessor - 09/24/2024 10:06 AM EST Pharmacy states they faxed a request last week and were calling to check on status of this. Nothingdocumented in chart that a fax was received. Sending high priority because she states that they send out her pill pack tomorrow. Thank you, Meena Griffin Staff Development Manager I [facility] 09/24/2024,10:06 AM * Telephone Encounter - Meena Griffin PHARM Tech - 09/24/2024 10:05 AM EST Patient is up to date for office visits. Pending Prescriptions: Disp Refills Rosuvastatin Calcium 5 MG Oral Tablet (Cr*28 Tab*1 Sig: Take 1 Tablet by mouth in the morning. Last Visit: 08/21/2024 (in office), Visit date not found (telemedicine) Next Visit: 08/22/2025 If no future appointments scheduled, and last appointment is greater than a year ago, please schedule patient for a follow-up appointment Last date the medication was ordered: 07/31/2024 Pharmacy: [facility] - [id number] [address] [place] Is this request for a controlled substance?No it is not controlled. Urine Drug Screen:No results found. However, due [...] 09/24/1996 09:45 AM * Telephone Encounter - Medina Rivera CPhT - 09/24/2024 10:02 AM EST [facility] calling for a refill on Rosuvastatin Calcium 5 MG Oral Tablet (Crestor) . This was last prescribed by Cardiology. Transfer to specialty refill line. Thank you, Camilla Rivera CPhT Claims Counsel III [facility] [address] [place] [address], [address] [place] [phone] documented in this encounter Plan of Treatment Upcoming Encounters Date Type Department Care Team (Late st Contact Info) Description 11/20/2024 10:00 AM EDT Office Visit Family Practice [facility] [place] [address] [place] [address] Brian Salas, [address] [place] [address] 03/12/2025 11:20 AM EDT Office Visit [facility] 132 [facility] [phone] Charlette Brannon DO [address] [facility] [address] 04/09/2025 8:30 AM EDT Office Visit Pulmonary Medicine, [facility] 132 [facility] [place] [address] Yo Abreu MD [address] [facility] [place] [address] 05/21/2025 9:25 AM EDT Office Visit Urogynecology [facility] 132 [facility] [place] [address] Del Baron MD [address] [facility] [address] TuckerNurse Trae dunaway [facility] [place] [address] 08/22/2025 8:30 AM EST Office Visit Cardiology, [facility] 132 [facility] [place] [address] Griselda Cody CRNP 132 [facility] [address] Scheduled Procedures Name Priority Associated Diagnoses Date/Ti [...] and unspecified hyperlipidemia documented in this encounter Advance Directives Documents on File Type Date Recorded Patient Power Regulator Expl swapna JACKSON 07/13/2024 signed on 06/27 Care Teams Quarter Inspector Relationship Specialty Start Date End Date Newhouser, Brian D, DO [address] [place], [place] [phone] PCP - General Family Medicine 12/16/15 documented as of this encounter
--- OUTSIDE RECORDS SUMMARY | 2024-10-30 05:52 | External Medical Summary | Summary of Care ---
Author Name Unknown Organization [facility] Address [address] [place] [address] Phone [phone] Care Team Providers Care Vault Keeper Name Role Phone Brian Salas DO Primary Care Provider [phone] Reason for Visit * Reason Onset Date Comments Appointment 10/03/2024 Encounter Details Date Type Department Care Team (Late st Contact Info) Description 10/03/2024 Telephone Family Practice [facility] [place] 200 [facility] [place] [address] Brian Salas DO 200 [facility] [place] [address] Appointment Allergies Active Allergy Reactions Criticality Noted [...] as of this encounter (statuses as of 10/05/2024) Medications lamoTRIgine (LAMICTAL) 200 MG TabletIndications:S chizoaffective [...] (Neurontin)Indicati ons:Polyneuropathy in other diseases classified elsewhere ([facility] [...] as of this encounter (statuses as of 10/05/2024) Active Problems Problem Noted Date Diagnosed Date [...] as of this encounter (statuses as of 10/05/2024) Resolved Problems Problem Noted Date Diagnosed Date [...] 1 09/25/2012 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/31/2010 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 08/31/2010 [...] as of this encounter (statuses as of 10/05/2024) Immunizations Name Administration Dates Next Due COVID-19 mRNA, LNP-s, No Pre serve, 2-Dose Series (Moderna) 11/03/2020,10/06/2020 COVID-19 mRNA, LNP-s, No Pre serve, 2-Dose Series (Pfizer) 06/08/2021 Covid-19, Mrna, Lnp-s, Pf, B ivalent, 30 Mcg, IM, 12 yrs and above (Pfizer) 05/05/2022 H1N1 2009 Influenza, IM 08/15/2009 Hepatitis B, 20+ yrs 01/16/2014,04/06/2013,03/05 PPD 02/27/2013 Pneumococcal Conjugate Vacci ne, 20-valent ([id number]) 03/05/2022 Pneumococcal Polysaccharide PPV23 (Pneumovax) 03/31/2009 Seasonal [...] you for being a valued patient with [facility] As part of [employer]'s continued effort to make better health easy, [...] Description 11/20/2024 10:00 AM EDT Office Visit [facility] [address] [place] [address] Brian Salas, DO 200 [facility] [place] [address] 03/12/2025 11:20 AM EDT Office Visit Sleep Disorders Ctr [facility] [address] [place] [phone] Charlette Brannon DO [address] [place] [address] 04/09/2025 8:30 AM EDT Office Visit Pulmonary Medicine, [facility] 132 [facility] [place] [address] Yo Abreu MD [address] [place] [address] 05/21/2025 9:25 AM EDT Office Visit Urogynecology [facility] [address] [place] [address] Del Baron MD [address] [place] [address] TuckerNurse Trae dunaway [facility] [address] [place] [address] 08/22/2025 8:30 AM EST Office Visit Cardiology, [facility] [address] [place] [address] Griselda Cody CRNP [address] [place] [address] Scheduled Procedures Name Priority Associated Diagnoses Date/Ti [...] 05/15/2024, Additional history exists Colonoscopy 12/04/2031 12/03/2021, 050 [...] Documents on File Type Date Recorded Patient Sports Specialist Expl anation POLST 07/13/2024 signed on 06/27 Care Teams Vault Keeper Relationship Specialty Start Date End Date Brian Salas DO [address] [place] [address] PCP - General Family Medicine 12/16/15 documented as of this encounter
--- OUTSIDE RECORDS SUMMARY | 2024-10-30 05:52 | External Medical Summary | Summary of Care ---
Author Name Unknown Organization [facility] Address [address] [place] [address] Phone [phone] Care Team Providers Care Furnace Repairer Helper Name Role Phone Sami Salas DO Primary Care Provider [phone] Reason for Visit * Reason Comments eRx-Medication Refill Encounter Details Date Type Department Care Team (Late st Contact Info) Description 09/28/2024 Refill Family Practice [facility] [address] [place] [address] Sami Salas DO 200 [facility] [place] [address] Moderate persistent asthma without complication Allergies Active [...] as of this encounter (statuses as of 10/01/2024) Medications lamoTRIgine (LAMICTAL) 200 MG TabletIndications: Schizoaffective disorder, chronic condition ([facility]) TAKE 1 TABLET BY MOUTH [...] ions:Polyneuropath y in other diseases classified elsewhere ([facility]) Take 1 Cap by mouth at bedtime. 30 Cap 5 021 Active Sertraline HCl 100 MG Oral Tablet (Zoloft)Indication s:Major depressive disorder with single episode, in partial remission ([facility]) Take 1 Tab by mouth [...] AT BEDTIME 56 Tablet 2 024 Active tiZANidine HCl 4 MG Oral [...] :HTN, goal below 140/90,PAF (paroxysmal atrial 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) ([facility]),ROSALES (dyspnea on exertion) TAKE 1 [...] MOUTH DAILY 60 Each 5 025 Active Breo Ellipta 200-25 MCG/ACT Inhalation Aerosol Powder Breath Activated (fluticasone furoate-vilanterol )Indications:Moder ate persistent asthma without complication INHALE 1 PUFF BY MOUTH DAILY 60 Each 5 024 2024 Discontinued documented as of this encounter (statuses as of 10/01/2024) Active Problems Problem Noted Date Diagnosed Date [...] as of this encounter (statuses as of 10/01/2024) Resolved Problems Problem Noted Date Diagnosed Date [...] 09/25/2012 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/31/2010 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 [...] as of this encounter (statuses as of 10/01/2024) Immunizations Name Administration Dates Next Due COVID-19 mRNA, LNP-s, No Pre serve, 2-Dose Series (Moderna) 11/03/2020,10/06/2020 COVID-19 mRNA, LNP-s, No Pre serve, 2-Dose Series (Pfizer) 06/08/2021 Covid-19, Mrna, Lnp-s, Pf, B ivalent, 30 Mcg, IM, 12 yrs and above (Pfizer) 05/05/2022 H1N1 2009 Influenza, IM 08/15/2009 Hepatitis B, 20+ yrs 01/16/2014,04/06/2013,03/05 PPD 02/27/2013 Pneumococcal Conjugate Vacci ne, 20-valent ([id number]) 03/05/2022 Pneumococcal Polysaccharide PPV23 (Pneumovax) 03/31/2009 Seasonal [...] encounter Miscellaneous Notes * Telephone Encounter - Carine Bobo [facility] - 10/01/2024 9:31 AM ESTSigned Prescriptions: Disp Refills Breo Ellipta 200-25 MCG/ACT Inhalation Aer*60 Each5 Sig: INHALE1 PUFF BY MOUTH DAILYAuthorizing Provider: SAMI SALAS User: CARINE BOBO------ documented in this encounter Plan of Treatment Upcoming Encounters Date Type Department Care Team (Late st Contact Info) Description 11/20/2024 10:00 AM EDT Office Visit [facility] [address] [place] [address] Sami Salas, DO 200 [facility] [place] [address] 03/12/2025 11:20 AM EDT Office Visit Sleep Disorders Ctr [facility] [address] [place] [phone] Charlette Brannon, [address] [place] [address] 04/09/2025 8:30 AM EDT Office Visit Pulmonary Medicine, [facility] 132 [facility] [place] [address] Yo Abreu MD [address] [place] [address] 05/21/2025 9:25 AM EDT Office Visit Urogynecology [facility] [address] [place] [address] Del Baron MD [address] [place] [address] TuckerNurse Trae dunaway [facility] [address] [place] [address] 08/22/2025 8:30 AM EST Office Visit Cardiology, [facility] [address] [place] [address] Griselda Cody CRNP [address] [place] [address] Scheduled Procedures Name Priority Associated Diagnoses Date/Ti [...] complication Unspecified asthma documented in this encounter Advance Directives Documents on File Type Date Recorded Patient Parking Lot Signaler Expl anation POLST 07/13/2024 signed on 06/27 Care Teams Furnace Repairer Helper Relationship Specialty Start Date End Date Sami Salas DO [address] [place] [place] [address] PCP - General Family Medicine 12/16/15 documented as of this encounter
--- OUTSIDE RECORDS SUMMARY | 2024-10-30 05:52 | External Medical Summary | Summary of Care ---
Author Name Unknown Organization [facility] Address [address] [place] [address] Phone [phone] Care Team Providers Care Career Technical Counselor Name Role Phone Brian Salas DO Primary Care Provider [phone] Reason for Visit * Reason Onset Date Comments Appointment 10/03/2024 Encounter Details Date Type Department Care Team (Late st Contact Info) Description 10/03/2024 Telephone Family Practice [facility] [place] 200 [facility] [place] [address] Brian Salas DO 200 [facility] [place] [address] Appointment Allergies Active Allergy Reactions Criticality Noted [...] (Neurontin)Indicati ons:Polyneuropathy in other diseases classified elsewhere ([facility] [...] 1 09/25/2012 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/31/2010 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 As part of [employer]'s continued effort to make better health easy, [...] Disorders Ctr [facility] [address] [place] [phone] Charlette Brannon DO 132 [place] [address] 04/09/2025 8:30 AM EDT Office Visit Pulmonary Medicine, [facility] 132 [facility] [place] [address] Yo Abreu MD [address] [facility] [place] [address] 05/21/2025 9:25 AM EDT Office Visit Urogynecology [facility] [address] [place] [address] Del Baron MD [address] [place] [address] Nurse Trae Tucker [address] [place] [address] 08/22/2025 8:30 AM EST Office Visit Cardiology, [facility] [address] [place] [address] Griselda Cody CRNP [address] [place] [address] Scheduled Procedures Name Priority Associated Diagnoses Date/Ti [...] Documents on File Type Date Recorded Patient Paster Operator Fabiola JACKSON 07/13/2024 signed on 06/27 Care Teams Career Technical Counselor Relationship Specialty Start Date End Date Brian Salas DO 200 [facility] [place] [address] PCP - General Family Medicine 12/16/15 documented as of this encounter
--- OUTSIDE RECORDS SUMMARY | 2024-10-30 05:53 | External Medical Summary | Summary of Care ---
Author Name Unknown Organization [facility] Address [address] [facility] [address] Phone [phone] Care Team Providers Care Instructional Technology Facilitator Name Role Phone Brian Salas DO Primary Care Provider [phone] Reason for Visit * Reason Onset Date Comments Follow Up 09/11/2024 Wound care Encounter Details Date Type Department Care Team (Late st Contact Info) Description 09/11/2024 Telephone Family Practice [facility] [place] 200 [facility] [place] [address] Brian Salas DO 200 [facility] [place], [place] [address] Follow Up (Wound care) Allergies Active Allergy Reactions Criticality Noted Date [...] as of this encounter (statuses as of 09/12/2024) Medications lamoTRIgine (LAMICTAL) 200 MG TabletIndications:S chizoaffective [...] (Neurontin)Indicati ons:Polyneuropathy in other diseases classified elsewhere ([facility]) Take 1 Cap by mouth at bedtime. 30 Cap 5 05/11/20 21 Active Sertraline HCl 100 MG Oral Tablet (Zoloft)Indications :Major depressive disorder with single episode, in partial remission ([facility]) Take 1 Tab by mouth daily. 30 [...] bedtime. 30 Tablet 6 07/27/20 24 Active Rosuvastatin Calcium 5 MG Oral Tablet (Crestor)Indication s:Dyslipidemia, goal LDL below 130 TAKE 1 TABLET BY MOUTH DAILY 28 Tablet 1 07/31/20 24 Active busPIRone HCl 10 MG Oral [...] morning.. 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 [...] as of this encounter (statuses as of 09/12/2024) Immunizations Name Administration Dates Next Due COVID-19 mRNA, LNP-s, No Pre serve, 2-Dose Series (Moderna) 11/03/2020,10/06/2020 COVID-19 mRNA, LNP-s, No Pre serve, 2-Dose Series (Pfizer) 06/08/2021 Covid-19, Mrna, Lnp-s, Pf, B ivalent, 30 Mcg, IM, 12 yrs and above (Pfizer) 05/05/2022 H1N1 2009 Influenza, IM 08/15/2009 Hepatitis B, 20+ yrs 01/16/2014,04/06/2013,03/05 PPD 02/27/2013 Pneumococcal Conjugate Vacci ne, 20-valent ([id number]) 03/05/2022 Pneumococcal Polysaccharide PPV23 (Pneumovax) 03/31/2009 Seasonal [...] encounter Miscellaneous Notes * Telephone Encounter - Sanjuana Damon LPN - 09/11/2024 3:55 PM EST Patient returning call She doesn't have a current HH agency. Pt was told her insurance will not cover HH. She needs help will dressing changes to toe. Currently she is doing betadine and wrapping with gauze but is running low on supplies. [facility] has been trying for 2 or 3 weeks to get supplies about there is anissue with [employer]. * Telephone Encounter - Sia Acuna OSA - 09/11/2024 3:54 PM EST Pt returning call to D[facility]. Transferred over. * Telephone Encounter - Ashely Biswas RN - 09/11/2024 3:35 PM EST Provider to address: Reason for Call: Follow Up Contact: Telephone Call Contact Type: Other: follow up Provider In-Basket: No Outcome: Received teams message from Yola Smith [facility] that patient inquiring about getting additional help for wound care. Attempted to call her to get additional information. No answer, LMTRC. Please transfer to dedicated nursing line. Does patient currently have home health? What is the wound care she is currently receiving? Is it currently being [facility] by [facility]? Face to face time spent with Patient (minutes): 0 Total Time including non face to face (minutes): 10 documented in this encounter Plan of Treatment Upcoming Encounters Date Type Department Care Team (Late st Contact Info) Description 11/20/2024 10:00 AM EDT Office Visit [facility] 200 [place] [address] Brian Salas, DO 200 [facility] [place] [address] 03/12/2025 11:20 AM EDT Office Visit Sleep Disorders Ctr [facility] [address] [place] [phone] Charlette Brannon, [address] [place] [address] 04/09/2025 8:30 AM EDT Office Visit Pulmonary Medicine, [facility] [address] [place] [address] Yo Abreu MD [address] [place] [address] 05/21/2025 9:25 AM EDT Office Visit Urogynecology [facility] [address] [place] [address] Del Gilman MD [address] [place] [address] Nurse Trae Tucker Drake [address] [place] [address] 08/22/2025 8:30 AM EST Office Visit Cardiology, [facility] [address] [place] [address] Griselda Cody CRNP [address] [place] [address] Scheduled Procedures Name Priority Associated Diagnoses Date/Ti [...] Documents on File Type Date Recorded Patient Health Service Coordinator Expl anation POLST 07/13/2024 signed on 06/27 Care Teams Instructional Technology Facilitator Relationship Specialty Start Date End Date Brian Salas DO [address] [place] [address] PCP - General Family Medicine 12/16/15 documented as of this encounter
--- OUTSIDE RECORDS SUMMARY | 2024-10-30 05:53 | External Medical Summary | Summary of Care ---
Author Name Unknown Organization [facility] Address [address] [place] [address] Phone [phone] Care Team Providers Care Flow Specialist Name Role Phone Brian Salas DO Primary Care Provider [phone] Reason for Visit * Reason Onset Date Comments Forms Request 09/06/2024 Encounter Details Date Type Department Care Team (Late st Contact Info) Description 09/06/2024 Telephone Family Practice [facility] [place] [address] [facility] [place] [address] Brian Salas DO [address] 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 08/31/2010 [...] as of this encounter (statuses as of 09/13/2024) Immunizations Name Administration Dates Next Due COVID-19 mRNA, LNP-s, No Pre serve, 2-Dose Series (Moderna) 11/03/2020,10/06/2020 COVID-19 mRNA, LNP-s, No Pre serve, 2-Dose Series (Pfizer) 06/08/2021 Covid-19, Mrna, Lnp-s, Pf, B ivalent, 30 Mcg, IM, 12 yrs and above (Pfizer) 05/05/2022 H1N1 2009 Influenza, IM 08/15/2009 Hepatitis B, 20+ yrs 01/16/2014,04/06/2013,03/05 PPD 02/27/2013 Pneumococcal Conjugate Vacci ne, 20-valent ([id number]) 03/05/2022 Pneumococcal Polysaccharide PPV23 (Pneumovax) 03/31/2009 Seasonal [...] Telephone Encounter - Rowena Kessler LPN - 09/12/2024 3:44 PM EST Form faxed, confirmation received. Placed in scanning. * Telephone Encounter - Brian Salas DO - 09/11/2024 4:03 PM EST I'll bring to you * Telephone Encounter - Rowena Kessler LPN - 09/06/2024 8:32 AM EST Analia Pedroza sent a Mental Health/Physical Wellness initiative form to be completed. Form completed and placed on provider's desk for review. Needs faxed back to Analia Pedroza at [phone]. documented in this encounter Plan of Treatment Upcoming Encounters Date Type Department Care Team (Late st Contact Info) Description 11/20/2024 10:00 AM EDT Office Visit Family Practice [facility] [address] [place] [address] Brian Salas, DO [address] [facility] [place] [address] 03/12/2025 11:20 AM EDT Office Visit Sleep Disorders Ctr [facility] [address] [place] [phone] Charlette Brannon DO [address] [place] [address] 04/09/2025 8:30 AM EDT Office Visit Pulmonary Medicine, [facility] [address] [place] [address] Yo Abreu MD [address] [place] [address] 05/21/2025 9:25 AM EDT Office Visit Urogynecology [facility] [address] [place] [address] Del Baron MD [address] [place] [address] Nurse Trae Tucker [facility] [address] [place] [address] 08/22/2025 8:30 AM EST Office Visit Cardiology, [facility] [address] [place] [address] Griselda Cody CRNP [address] [place] [address] Scheduled Procedures Name Priority Associated Diagnoses Date/Ti [...] Documents on File Type Date Recorded Patient Wood Panel Inspector Expl anation POLST 07/13/2024 signed on 06/27 Care Teams Flow Specialist Relationship Specialty Start Date End Date Brian Salas DO [address] [facility] [place] [place] [address] PCP - General Family Medicine 12/16/15 documented as of this encounter
--- OUTSIDE RECORDS SUMMARY | 2024-10-30 05:53 | External Medical Summary | Summary of Care ---
Author Name Unknown Organization [facility] Address [address] [facility] [address] Phone [phone] Care Team Providers Care Perpetual Inventory Clerk Name Role Phone Brian Salas DO Primary Care Provider [phone] Reason for Visit * Reason Onset Date Comments Follow Up 09/11/2024 Wound care Encounter Details Date Type Department Care Team (Late st Contact Info) Description 09/11/2024 Telephone Family Practice 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 They had ordered HH in August Face to face time spent with Patient (minutes): 0 Total Time including non face to face (minutes): 20 Called and spoke with Sofia- informed her that I spoke with [facility] office who said they are working on the authorization with her insurance to get more dressings. She states her caregiver helps her change the dressing 3x a week. Instructed to follow up with that office later this week for an update on wound supplies. She verbalizes understanding. * Telephone Encounter - Sanjuana Damon LPN - 09/11/2024 3:55 PM EST Patient returning call She doesn't have a current HH agency. Pt was told her insurance will not cover HH. She needs help will dressing changes to toe. Currently she is doing betadine and wrapping with gauze but is running low on supplies. [facility] for 2 or 3 weeks to get supplies about there is anissue with [employer]. * Telephone Encounter - Sia Acuna OSA - 09/11/2024 3:54 PM EST Pt returning call to [facility]. Transferred over. * Telephone Encounter - Ashely Biswas RN - 09/11/2024 3:35 PM EST Provider to address: Reason for Call: Follow Up Contact: Telephone Call Contact Type: Other: follow up Provider In-Basket: No Outcome: Received teams message from Yola Smith [facility] that patient inquiring about getting additional help for wound care. Attempted to call her to get additional information. No answer, TR. Please transfer to dedicated nursing line. Does [...] Visit Family Practice [facility] [address] [place] [address] [place] [address] Brian Salas, DO [address] [place] [address] [place] [address] 03/12/2025 11:20 AM EDT Office Visit Sleep Disorders Ctr [facility] [place] [phone] Charlette Brannon DO 132 [facility] [place] [address] 04/09/2025 8:30 AM EDT Office Visit Pulmonary Medicine, [facility] 132 [facility] [place] [address] Yo Abreu MD [address] [place] [address] 05/21/2025 9:25 AM EDT Office Visit Urogynecology [facility] 132 [facility] [place] [address] Del Baron MD [address] [place] [address] TuckerNurse emelyn Urogyn [facility] 132 [facility] [place] [address] 08/22/2025 8:30 AM EST Office Visit Cardiology, [facility] 132 [facility] [place] [address] Griselda Cody CRNP 132 [facility] [address] Scheduled Procedures Name Priority Associated Diagnoses Date/Ti [...] Documents on File Type Date Recorded 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
--- OUTSIDE RECORDS SUMMARY | 2024-10-30 05:53 | External Medical Summary | Summary of Care ---
Author Name Unknown Organization [facility] Address [address] [place] [address] Phone [phone] Care Team Providers Care Primer Supervisor Name Role Phone Brian Salas DO Primary Care Provider [phone] Reason for Visit * Reason Onset Date Comments Medical Records Request 09/13/2024 Encounter Details Date Type Department Care Team (Late st Contact Info) Description 09/13/2024 Telephone Family Practice [facility] [place] 200 [facility] [place], [place] [address] Brian Salas DO 200 [facility] [place], [place] [address] Medical Records Request Allergies Active Allergy Reactions Criticality Noted [...] 200 MG TabletIndications:S chizoaffective disorder, chronic condition ([facility]) TAKE 1 TABLET BY MOUTH [...] (Neurontin)Indicati ons:Polyneuropathy in other diseases classified elsewhere ([facility]) Take 1 Cap by mouth at bedtime. 30 Cap 5 05/11/20 21 Active Sertraline HCl 100 MG Oral Tablet (Zoloft)Indications :Major depressive disorder with single episode, in partial remission ([facility]) Take 1 Tab by mouth [...] PPD 02/27/2013 Pneumococcal Conjugate Vacci ne, 20-valent ([id number]) 03/05/2022 Pneumococcal Polysaccharide PPV23 (Pneumovax) 03/31/2009 Seasonal [...] encounter Miscellaneous Notes * Telephone Encounter - Ricki Jang OSA - 09/13/2024 12:02 PM EST Record Request received from [facility]. Request forwarded to HIM ([id number]) via [employer]. documented in this encounter Plan of Treatment Upcoming Encounters Date Type Department Care Team (Late st Contact Info) Description 11/20/2024 10:00 AM EDT Office Visit Family Practice [facility] [place] [address] [place] [address] [address] Brian Salas, DO [address] [place] [address] 03/12/2025 11:20 AM EDT Office Visit Sleep Disorders Ctr Drake Tucker [place] 132 [facility] [place] [phone] Charlette Brannon DO [address] [place] [address] 04/09/2025 8:30 AM EDT Office Visit Pulmonary Medicine, [facility] [address] [facility] [place] [address] Yo Abreu MD [address] [place] [address] 05/21/2025 9:25 AM EDT Office Visit Urogynecology [facility] [address] [place] [address] Del Baron MD [address] [place] [address] Nurse Trae Tucker [facility] [address] [place] [address] 08/22/2025 8:30 AM EST Office Visit Cardiology, [facility] 132 [place] [address] Griselda Cody CRNP [address] [place] [address] Scheduled Procedures Name Priority Associated Diagnoses Date/Ti [...] Documents on File Type Date Recorded 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
--- OUTSIDE RECORDS SUMMARY | 2024-10-30 05:53 | External Medical Summary | Summary of Care ---
Author Name Unknown Organization [facility] Address [address] [place] [address] Phone [phone] Care Team Providers Care Audit Manager Name Role Phone Sami Oritz DO Primary Care Provider [phone] Reason for Visit * Reason Comments eRx-Medication Refill Encounter Details Date Type Department Care Team (Late st Contact Info) Description 09/17/2024 Refill Family Practice [facility] [place] [address] [place] [address] Sami Ortiz DO 200 [facility] [place] [address] Allergies Active Allergy Reactions Criticality Noted Date [...] as of this encounter (statuses as of 09/18/2024) Medications lamoTRIgine (LAMICTAL) 200 MG TabletIndications: Schizoaffective disorder, chronic condition ([facility]) TAKE 1 TABLET BY MOUTH TWICE DAILY MOOD DISORDER 180 Tab 1 018 Active Vitamin B-2 100 MG Oral Tablet (vitamin B-2) TAKE 4 TABLETS (400MG) BY MOUTH DAILY 112 Tab 4 020 Active Mirtazapine 30 MG Oral Tablet (REMERON) TAKE 1 TABLET BY MOUTH EVERYDAY AT BEDTIME 30 Tab 5 020 Active Melatonin 3 MG Oral CapsuleIndications :Primary insomnia Take 1 Cap by mouth at bedtime. 90 Cap 3 021 Active Gabapentin 300 MG Oral Capsule (Neurontin)Indicat ions:Polyneuropath y in other diseases classified elsewhere ([facility]) Take 1 Cap by mouth at bedtime. 30 Cap 5 021 Active Sertraline HCl 100 MG Oral Tablet (Zoloft)Indication s:Major depressive disorder with single episode, in partial remission ([facility]) Take 1 Tab by mouth daily. 30 Tab 11 021 Active Systane 0.4-0.3 % Ophthalmic Solution (Polyethyl [...] 022 Active Perphenazine 8 MG Oral Tablet 022 Active Ventolin HFA 108 (90 Base) MCG/ACT [...] (Trilafon) Take 2 Tablets by mouth once. 023 Active Triamcinolone Acetonide 55 MCG/ACT Nasal Aerosol [...] AT BEDTIME 56 Tablet 2 024 Active Breo Ellipta 200-25 MCG/ACT Inhalation Aerosol Powder Breath Activated (fluticasone furoate-vilanterol )Indications:Moder ate persistent asthma without complication INHALE 1 PUFF BY MOUTH DAILY 60 Each 5 024 Active tiZANidine HCl 4 MG Oral [...] at bedtime. 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/31/2010 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 08/31/2010 [...] as of this encounter (statuses as of 09/18/2024) Immunizations Name Administration Dates Next Due COVID-19 mRNA, LNP-s, No Pre serve, 2-Dose Series (Moderna) 11/03/2020,10/06/2020 COVID-19 mRNA, LNP-s, No Pre serve, 2-Dose Series (Pfizer) 06/08/2021 Covid-19, Mrna, Lnp-s, Pf, B ivalent, 30 Mcg, IM, 12 yrs and above (Pfizer) 05/05/2022 H1N1 2009 Influenza, IM 08/15/2009 Hepatitis B, 20+ yrs 01/16/2014,04/06/2013,03/05 PPD 02/27/2013 Pneumococcal Conjugate Vacci ne, 20-valent ([id number]) 03/05/2022 Pneumococcal Polysaccharide PPV23 (Pneumovax) 03/31/2009 Seasonal [...] encounter Miscellaneous Notes * Telephone Encounter - Wild Hatch RPh - 09/18/2024 1:00 PM ESTSigned Prescriptions: Disp Refills Losartan Potassium 100 MG Oral Tablet (Coz*90 Tab*1 Sig: TAKE 1TABLET BY MOUTH DAILYAuthorizing Provider: SAMI ORTIZ User: WILD HATCH------ documented in this encounter Plan of Treatment Upcoming Encounters Date Type Department Care Team (Late st Contact Info) Description 11/20/2024 10:00 AM EDT Office Visit Family Practice [facility] [address] [place] [address] Sami Ortiz, DO 200 [facility] [place] [address] 03/12/2025 11:20 AM EDT Office Visit Sleep Disorders Ctr [facility] [address] [place] [phone] Charlette Brannon, DO [address] [place] [address] 04/09/2025 8:30 AM EDT Office Visit Pulmonary Medicine, [facility] [address] [place] [address] Yo Abreu MD [address] [place] [facility] [place] [address] 05/21/2025 9:25 AM EDT Office Visit Urogynecology [facility] [address] [place] [address] Del Baron MD [address] [place] [address] Nurse Trae Tucker [facility] [address] [place] [address] 08/22/2025 8:30 AM EST Office Visit Cardiology, [facility] [address] [facility] [place] [address] Griselda Cody CRNP [address] [place] [address] Scheduled Procedures Name Priority Associated Diagnoses Date/Ti [...] Documents on File Type Date Recorded Patient Grief Counselor Expl anation POLST 07/13/2024 signed on 06/27 Care Teams Audit Manager Relationship Specialty Start Date End Date Sami Ortiz DO 200 [facility] [place] [address] PCP - General Family Medicine 12/16/15 documented as of this encounter
--- OUTSIDE RECORDS SUMMARY | 2024-10-30 05:53 | External Medical Summary | Summary of Care ---
Author Name Unknown Organization [facility] Address [address] [facility] [place] [address] Phone [phone] Care Team Providers Care Cottrell Operator Name Role Phone Brian Salas DO Primary Care Provider [phone] Reason for Visit * Reason Onset Date Comments Follow Up 09/11/2024 Wound care Encounter Details Date Type Department Care Team (Late st Contact Info) Description 09/11/2024 Telephone Family Practice [facility] [place] [address] [facility] [place], [place] [address] Brian Salas DO 200 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 [facility] ankle and foot has been trying for 2 or 3 weeks to get supplies about there is anissue with Rithmio. * Telephone Encounter - Sia Acuna OSA - 09/11/2024 3:54 PM EST Pt returning call to [facility]. Transferred over. * Telephone Encounter - Ashely Biswas RN - 09/11/2024 3:35 PM EST Provider to address: Reason for Call: Follow Up Contact: Telephone Call Contact Type: Other: follow up Provider In-Basket: No Outcome: Received teams message from Yola Smith [facility] that patient inquiring about getting additional [...] Description 11/20/2024 10:00 AM EDT Office Visit [facility] [address] [place] [address] Brian Salas, DO 200 [facility] [place] [address] 03/12/2025 11:20 AM EDT Office Visit Sleep Disorders Ctr [facility] [address] [place] [phone] Charlette Brannon, [address] [place] [address] 04/09/2025 8:30 AM EDT Office Visit Pulmonary Medicine, [facility] [address] [place] [address] Yo Abreu MD [address] [place] [address] 05/21/2025 9:25 AM EDT Office Visit Urogynecology [facility] [address] [place] [address] Del Gilman MD [address] [place] [address] Nurse Trae Tucker Drake [address] [place] [address] 08/22/2025 8:30 AM EST Office Visit Cardiology, [facility] [address] [place] [address] Griselda Cody CRNP [address] [place] [address] Scheduled Procedures Name Priority Associated Diagnoses Date/Ti [...] Documents on File Type Date Recorded 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
--- OUTSIDE RECORDS SUMMARY | 2024-10-30 05:53 | External Medical Summary | Summary of Care ---
Author Name Unknown Organization [facility] Address [address] [facility] [facility] [place] [address] Phone [phone] Care Team Providers Care Environmental Field Services Technician Name Role Phone Brian Salas DO Primary Care Provider [phone] Reason for Visit * Reason Onset Date Comments Follow Up 09/11/2024 Wound care Encounter Details Date Type Department Care Team (Late st Contact Info) Description 09/11/2024 Telephone Family Practice [facility] [place] 200 [facility] [place], [place] [address] Brian Salas DO 200 [facility] [place], [place] [address] Follow Up (Wound care) Allergies Active Allergy [...] 1 09/25/2012 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/31/2010 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 [facility] ankle and foot has been trying for 2 or 3 weeks to get supplies about there is anissue with Oesia. * Telephone Encounter - Sia Acuna OSA - 09/11/2024 3:54 PM EST Pt returning call to [facility]. Transferred over. * Telephone Encounter - Ashely Biswas RN - 09/11/2024 3:35 PM EST Provider to address: Reason for Call: Follow Up Contact: Telephone Call Contact Type: Other: follow up Provider In-Basket: No Outcome: Received teams message from Yola Smith [facility] that patient inquiring about getting additional help [...] Description 11/20/2024 10:00 AM EDT Office Visit [facility] [address] [facility] [place] [address] Brian Salas, DO 200 [facility] [place] [address] 03/12/2025 11:20 AM EDT Office Visit Sleep Disorders [facility]tr [facility] [address] [place] [phone] Charlette Brannon, [address] [place] [address] 04/09/2025 8:30 AM EDT Office Visit Pulmonary Medicine, [facility] [address] [place] [address] Yo Abreu MD [address] [place] [address] 05/21/2025 9:25 AM EDT Office Visit Urogynecology [facility] [address] [place] [address] Del Gilman MD [address] [place] [address] Nurse Trae Tucker Drake [address] [place] [address] 08/22/2025 8:30 AM EST Office Visit Cardiology, [facility] [address] [place] [address] Griselda Cody CRNP [address] [place] [address] Scheduled Procedures Name Priority Associated Diagnoses Date/Ti [...] Documents on File Type Date Recorded 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
--- OUTSIDE RECORDS SUMMARY | 2024-10-30 05:54 | External Medical Summary | Summary of Care ---
Author Name Unknown Organization [facility] Address [address] [place] [address] Phone [phone] Care Team Providers Care Finger Waver Name Role Phone Brian Salas DO Primary Care Provider [phone] Reason for Visit * Reason Comments Follow Up Encounter Details Date Type Department Care Team (Late st Contact Info) Description 08/21/2024 8:30 AM EST Office Visit Cardiology, [facility] [address] [facility] [place] [address] Griselda Cody CRNP [address] [facility] [place] [address] Chronic diastolic CHF (congestive heart failure), NYHA class 3 ([facility])*; PAF (paroxysmal atrial 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) ([facility]); Iron deficiency anemia, unspecified iron deficiency anemia type; HTN, goal below 140/90; Dyslipidemia, goal LDL below 130 Allergies Active [...] as of this encounter (statuses as of 08/22/2024) Medications lamoTRIgine (LAMICTAL) 200 MG TabletIndications:S chizoaffective [...] (Neurontin)Indicati ons:Polyneuropathy in other diseases classified elsewhere ([facility]) Take 1 Cap by mouth at bedtime. 30 Cap 5 05/11/20 21 Active Sertraline HCl 100 MG Oral Tablet (Zoloft)Indications :Major depressive disorder with single episode, in partial remission ([facility]) Take 1 Tab by mouth [...] MORNING 90 Capsule 3 09/23/19 24 Active Potassium Chloride ER 10 MEQ [...] 1 Tablet before bedtime. 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 08/31/2010 [...] as of this encounter (statuses as of 08/22/2024) Immunizations Name Administration Dates Next Due COVID-19 mRNA, LNP-s, No Pre serve, 2-Dose Series (Moderna) 11/03/2020,10/06/2020 COVID-19 mRNA, LNP-s, No Pre serve, 2-Dose Series (Pfizer) 06/08/2021 Covid-19, Mrna, Lnp-s, Pf, B ivalent, 30 Mcg, IM, 12 yrs and above (Pfizer) 05/05/2022 H1N1 2009 Influenza, IM 08/15/2009 Hepatitis B, 20+ yrs 01/16/2014,04/06/2013,03/05 PPD 02/27/2013 Pneumococcal Conjugate Vacci ne, 20-valent ([id number]) 03/05/2022 Pneumococcal Polysaccharide PPV23 (Pneumovax) 03/31/2009 Seasonal [...] Answer Date Recorded PHQ Adult Total Score 19 07/30/2024 Hunger Vital Sign Answer Date Recorded Within [...] ages 0-17 years) Not on file 07/30/2024 Comments No Sex and Gender Information [...] Sign Reading Time Taken Comments Blood Pressure 128/76 08/21/2024 8:43 AM EST Pulse 72 08/21/2024 8:43 AM EST Temperature - - Respiratory Rate 16 08/21/2024 8:43 AM EST Oxygen Saturation - - Inhaled Oxygen Concentration - - Weight 119.1 kg (262 lb 8 oz) 08/21/2024 8:43 AM EST Height - - Body Mass Index 46.5 08/15/2024 1:36 PM EST documented in this encounter Progress Notes * Griselda Cody CRNP - 08/21/2024 8:30 AM EST 08/20/2024 Cardiology Follow Up Primary Museum Assistant: Eduardo Gonsalez PA-C/previously ZION Lozada Cardiac Problems: Symptomatic paroxysmal atrial flutter x 2. Initiation of Sotalol in October 2016 Status post direct current cardioversion in October 2016 and November 2018. Status post atrial flutter ablation in December 2018 Chronic Eliquis anticoagulation. Sinus bradycardia-evidence of early tachy-lamont syndrome Reduction in sotalol dosing in May 2019 due to bradycardia. Chronic palpitations associated with normal sinus rhythm (See January 2017 Negrita), quiescent. Chronic schizoaffective disorder Fibromyalgia Depression Nonconvulsive seizure disorder Asthmatic lung disease- follows with pulmonary Obesity MAURO and nocturnal hypoxemia, follows with sleep med Hypertension Dyslipidemia Hypothyroidism. GERD DDD Irritable bowel syndrome Chronic Diastolic heart failure, NYHA class 3 SEEMA, follows with hematology recieves IV iron infusions Severe anemia 10/2022 requiring PRBC transfusion History of Maxzide use in the past, noted hypotension/slight hyponatremia, 2017. Family history of premature coronary artery disease in her father, 3 on goals, and maternal grandfather. HPI: Sofia Melton is a 59 year old female presents for routine cardiology follow up. Patient was last seen in our office by Shannan Heard November 2022 stable from a cardiac perspective. She carries a longstanding history of SEEMA for which she receives iron infusions and follows with Hematology. Patient states today that she no longer sees hematology Presents today feeling from a cardiac perspective. Denies any acute concerns. Endorses occasional dizziness with no particular pattern, can be when she is laying down, sitting in a chair or up and moving. Resolves spontaneously. Patient denies any chest pain, pressure, palpitations, no changes in breathing no lower extremity edema, no feelings of near syncope or syncope. She is ambulating well with a rolling walker. BP well controlled. Compliant on all medication therapies with no untoward effects. REVIEW OF SYSTEMS: See HPI for pertinent positives. All others negative other than those noted in the HPI. CONSTITUTIONAL: No change in weight, No weakness, No fatigue and No fevers, No sweats or chills. PULMONARY: No cough, sputum, or hemoptysis, No wheezing, No shortness or breath and No recent change in breathing. CARDIOVASCULAR: No chest pain, No dyspnea on exertion, No edema, No palpitations and No syncope. GASTROINTESTINAL: No abdominal pain, No change in bowel habits, No significant heartburn, No nausea, No vomiting, No diarrhea, No constipation, No blood in stools or black tarry stools. No dysphagia. HEMATOLOGIC: No abnormal bleeding and No bruising. NEUROLOGICAL: Normal balance, No headaches and No weakness. Review of patient's allergies indicates: Allergen Reactions Adhesive Tape Other reaction(s): RASH, ITCHY Alcohol Other reaction(s): Seizure Hydantoins Other reaction(s): Hives, Nausea Phenytoin Other Reaction(s): Itchy rash Thioridazine Other reaction(s): SEIZURES Ethanol Latex rash Phenytoin Sodium Rash Torsemide ? possible rash on legs and arms Wound Dressing Adhesive Itching and Rash Current Outpatient Medications Medication Sig Dispense Refill [...] Hour Take 1 Tablet by mouth daily. Vitamin D3 50 MCG (2000 UT) Oral Capsule Take by mouth 1 Capsule in the morning. 30 Capsule 5 BiPAP every night at bedtime . Vitron-C 65-125 MG Oral Tablet (Iron-Vitamin C) Take by mouth 1 Tablet in the morning AND 1 Tablet before bedtime. 180 Tablet 3 Perphenazine 8 MG Oral Tablet Ventolin HFA [...] by mouth every evening.) 30 Tablet 11 Triamcinolone Acetonide 55 MCG/ACT Nasal Aerosol (Nasacort Allergy 24HR) Administer 2 Sprays into nostril in the morning. 16.9 mL 5 Triamcinolone Acetonide 0.5 % External Cream (Aristocort) APPLY TOPICALLY TO AFFECTED AREA TWICE A DAY FOR 14 DAYS 45 g 1 Hydroxychloroquine Sulfate 200 MG Oral Tablet (Plaquenil) TAKE 2 TABLETS BY MOUTH EVERY NIGHT AT BEDTIME 56 Tablet 2 hydroCHLOROthiazide 12.5 MG Oral Capsule (Hydrodiuril) TAKE 1 CAPSULE BY MOUTH EVERY MORNING 90 Capsule 3 Potassium Chloride ER 10 MEQ Oral Tablet [...] by mouth every evening. 90 Tablet 3 Levothyroxine Sodium 200 MCG Oral Tablet (Levoxyl) Take 1 Tablet by mouth in the morning. (at least30 min prior to breakfast or other meds). 90 Tablet 3 Spironolactone 25 MG Oral Tablet (Aldactone) Take 1 Tablet by mouth in the morning. 90 Tablet 3 amLODIPine Besylate 5 MG Oral Tablet (Norvasc) Take 1 Tablet by mouth 2 times a day. 60 Tablet 11 hydrALAZINE HCl 25 MG Oral Tablet (Apresoline) Take 3 Tablets by mouth in the morning and 3 Tabletsat noon and 3 Tablets before bedtime. 270 Tablet 11 Sotalol HCl 80 MG Oral [...] (Crestor) TAKE 1 TABLET BY MOUTH DAILY 28 Tablet 1 busPIRone HCl 10 MG Oral Tablet (Buspar) Take 1 Tablet by mouth in the morning and 1 Tablet at noonand 1 Tablet before bedtime. Paliperidone ER 6 MG Oral Tablet Extended Release 24 Hour (Invega) Take 1 Tablet by mouth in the morning. (Patient not taking: Reported on 06/27/2024) Perphenazine 2 MG Oral Tablet (Trilafon) Take 2 Tablets by mouth once. (Patient not taking: Reported on 06/27/2024) No current facility-administered medications for this visit. 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 [place] Generalized convulsive epilepsy without intractable epilepsy (HCC) Seizures, Epileptic, Dr López GERD (gastroesophageal reflux disease) HTN, goal below 130/80 09/03/2010 HTN, goal below 140/90 Hypothyroidism Irritable bowel syndrome Dr Lee, GI [place] Migraine with aura Migraines-Classical neurology Dr López Obstructive sleep apnea (adult) (pediatric) moderate, AHI 18 09/2010, refusing CPAP Osteoarthrosis, unspecified whether generalized or localized, other specified sites Otitis media recurrent Pulmonary arterial hypertension (HCC) Schizoaffective disorder, chronic condition (HCC) Dr Cutler Sciatica Sleep apnea, obstructive Family History Problem Relation Name Age of Onset Lung cancer Mother in her 70s Diabetes Father Heart Disorder Father Fatal [place] in his 70s Hypertension Father No Known Problems Sister Arthritis Brother COPD Brother Smoker Lung cancer Grandmother (Maternal) Social History Socioeconomic History Marital status: Spouse name: Al Number of children: 0 Years of education: 12 Occupational History Occupation: disabled, for psychosis Tobacco Use Smoking status: Former Current packs/day: 0.00 Average packs/day: 1 pack/day for 10.0 years (10.0 ttl pk-yrs) Types: Cigarettes Start date: 08/24/2000 Quit date: 08/24/2010 Years since quittin.0 Smokeless tobacco: Never Vaping Use Vaping status: Never Used Substance and Sexual Activity Alcohol use: No Drug use: No Sexual activity: Not Currently Other Topics Concern Service No Blood Transfusions No Caffeine Concern No Occupational Exposure No Social History Narrative No pets. No mold. born in [place], raised in [facility], resident for 25+ years. disabled for depression, OCD, and a variety of physical problems. FREDDY Elizalde through [employer] Social Needs Financial Resource Strain: Low Risk (07/30/2024) Financial Resource Strain Do you have any trouble paying for your medications, or do you think you might in the future? (Adult - for ages 18 years and over): No Food Insecurity: No Food Insecurity (07/30/2024) Food Insecurity Do you need food for this week? (Adult - for ages 18 years and over): No Transportation Needs: No Transportation Needs (07/30/2024) Transportation Needs Has lack of transportation kept you from medical appointments, meetings, work, or from getting things needed for daily living? Check all that apply. (Adult - for ages 18 years and over): No Social Connections: Socially Isolated (07/30/2024) Social Connections How often do you feel lonely or isolated from those around you? (Adult - for ages 18 years and over): Always Housing Stability: High Risk (07/30/2024) Housing Stability Do you currently live in a skilled nursing or have no steady place to sleep at night? (Adult - for ages 18 years and over): No Are you homeless or worried that you might be in the future? (Adult - for ages 18 years and over): Yes OBJECTIVE/PHYSICAL EXAMINATION: BP 128/76 (BP Site: Left Arm, BP Position: Sitting, BP Cuff Size: Large) | Pulse 72 | Resp 16 | Wt 119.1 kg (262 lb 8 oz) | BMI 46.50 kg/m² | BSA 2.3 m² General: No acute distress. A+Ox3. HEENT: Normocephalic. Atraumatic. PERRL. EOMI. Conjunctiva and sclera clear. NECK: No carotid bruits. No JVD. Carotid upstrokes are brisk. Heart: RRR. S1 and S2 noted. No murmur. No rubs or gallops. PMI non displaced. Lungs: Clear to auscultation. No wheezes.No rhonchi. No rales. Abdomen: Normal bowel sounds. Soft. Nontender. No masses or organomegaly. No abdominal bruits. Extremities: No edema. No clubbing or cyanosis. Pulses: radial=2/4, posterior tibial=2/4, dorsalis pedis = 2/4. NEURO: No focal deficits. PSYCH: Appropriate affect and insight. DATA Labs & Imaging Reviewed Below: Echo 01/2022 The primary indication after review was deemed appropriate and the examination was performed. Normal LV chamber size with borderline concentric LVH. Normal LV systolic function without regional wall motion abnormalities. Calculated LV ejection Fraction = 63% (bi-plane method of discs). Grade 2 diastolic dysfunction. No significant valvular pathology. The estimated pulmonary artery systolic pressure is 36mm Hg. Echo 01/21/2021 The qualitative LV ejection fraction is 60-64% (normal). The LV wall thickness is mildly increased (concentric). The left ventricular wall motion is normal. The left ventricular diastolic function is moderately abnormal (grade II). Mild mitral regurgitation is present. Mild tricuspid regurgitation is present. Mild pulmonary hypertension is present. The estimated pulmonary artery systolic pressure is 40mm Hg. December 21, 2018 TTE ([facility] [place], Dr. Amado): Normal LV chamber size with borderline concentric LVH. NormalLV systolic function, EF 65 to 70%. No segmental left ventricular wall motion abnormalities. No significant valvular disease. Normal left atrial size. April 09, 2019 Nuclear stress (as per Dr. Adams): Gated SPECT imaging reveals normal myocardial thickening and wall motion. The left ventricular ejection fraction was calculated to be 72%. Lexiscan nuclear cardiac stress test negative for ischemia. June 04, 2020 TTE ([facility] [place]): Normal LV chamber size and wall thickness. Normal LV systolic function. Ejection fraction 60 to 65%. No segmental left ventricular wall motion abnormalities. Grade 2 diastolic dysfunction. Poorly visualized valvular structures, without significant stenosis or regurgitation by Doppler. ASSESSMENT/PLAN: 59 year old year old female 1. Chronic diastolic CHF (congestive heart failure), NYHA class 3 ([facility]) -Patient is Euvolemic on today's exam -Continues on Losartan and Spironolactone as part of HF regimen. Not currently requiring use of loop diuretic. 2. PAF (paroxysmal atrial 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) ([facility]) -Regular rate/rhythm on exam -Continue Sotalol -Remains off AC therapy due to history severe anemia 3. Iron deficiency anemia, unspecified iron deficiency anemia type -Followed by PCP, previously followed by hematology, but states she is no longer following with them. Recent CBC stable 4. HTN, goal below 140/90 -Well controlled -Continue Amlodipine, HCTZ, Hydralazine, Losartan, and spironolactone 5. Dyslipidemia, goal LDL below 130 Due for labs, order placed -Continue Crestor as per current regimen - LIPID PANEL WITH DIRECT LDL IF TG IS HIGH; Future DISPOSITION: Follow up 1 year or if symptoms worsen/fail to improve. All questions were answered to the patients satisfaction. Patient advised to report to ED with any and all emergencies. The patient agrees to the above plan and will call with additional questions or concerns. ZION Lange Cardiology, [facility] [address] [facility] [address] [place] [address] I spent a total of 32 minutes on the date of service in preparation, delivery, and documentation ofthe care provided to Sofia Melton excluding any time spent in the performance of separately billed services. This chart was completed in part utilizing [employer] Voice Recognition Software. Grammatical errors, random word insertions, pronoun errors, and incomplete sentences are an occasional consequence of this system due to software limitations, ambient noise, and hardware issues. Any formal questions or concerns about the content, text, or information contained within the body of this dictation should be directly addressed to the provider for clarification. documented in this encounter Nursing Notes * Kailyn Garcia CMA - 08/21/2024 8:52 AM EST Examination Room: 4 Name: Sofia Melton Date of : (1965). Reason for Visit: overdue f/u - last seen November 2022 Interim Hospitalization(s): [facility] Problems/Concerns: Some occasional fluttering, lasts no more than a min. Dizziness while sitting, laying, walking. No falls from dizziness, but does have balance issues. Chest Pain/SOB: denies [facility] Discussed: Not applicable [facility] is a way you can talk to your provider online through e-mail. Would you like to sign up? I can activate it for you? ALREADY ACTIVE Patient was instructed to not get up on the exam table until directed and assisted by their provider; patient is to remain seated in the chair/ wheelchair/ exam table for fall prevention and safety reasons. Patient is aware to have assistance to step down off exam table with personnel. Patient voiced full comprehension of instructions. documented in this encounter Plan of Treatment Upcoming Encounters Date Type Department Care Team (Late st Contact Info) Description 11/20/2024 10:00 AM EDT Office Visit Family Practice [facility] [address] [place] [address] Brian Salas, DO [address] [facility] [place] [address] 03/12/2025 11:20 AM EDT Office Visit [facility] [address] [place] [id number] Charlette Brannon, [address] [place] [id number] 04/11/2025 8:20 AM EDT Office Visit Pulmonary Medicine, [facility] [address] [place] [address] Yo Abreu MD [address] [place] [facility] [place] [address] 05/21/2025 9:25 AM EDT Office Visit Urogynecology [facility] [address] [place] [address] Del Baron MD [address] [place] [address] Nurse Trae Tucker [facility] [place] [address] [place] [address] 08/22/2025 8:30 AM EST Office Visit Cardiology, [facility] [address] [facility] [place] [address] Griselda Cody CRNP [address] [place] [address] Scheduled Orders Name Type Priority Associated Diagnoses Orde r Schedule LIPID PANEL WITH DIRECT LDL IF TG IS HIGH Lab Routine Dyslipidemia, goal LDL below 130 Expected: 08/21/2024, Expires: 08/21/2025 Scheduled Procedures Name Priority Associated Diagnoses Date/Ti [...] 06/01, 05/15/2024, Additional history exists Depression Monitoring 07/30/2025 07/30/2024 Albumin/Creatinine Ratio 12/13/2025 12/13/2022 Lipid Panel 09/11/2026 [...] as of this encounter Visit Diagnoses Diagnosis Chronic diastolic CHF (congestive heart failure), NYHA class 3 (HCC)- Primary Chronic diastolic heart failure PAF (paroxysmal atrial 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) (HCC) 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 Iron deficiency anemia, unspecified iron deficiency anemia type HTN, goal below 140/90 Unspecified essential hypertension Dyslipidemia, goal LDL below 130 Other and unspecified hyperlipidemia documented in this encounter Advance Directives Documents on File Type Date Recorded Patient Assistant Director Of Nursing Expl anation POL 07/13/2024 signed on 06/27 Care Teams Finger Waver Relationship Specialty Start Date End Date Brian Salas DO [address] [place] [address] PCP - General Family Medicine 12/16/15 documented as of this encounter"
--- OUTSIDE RECORDS SUMMARY | 2024-10-30 05:54 | External Medical Summary | Summary of Care ---
Author Name Unknown Organization [facility] Address [address] [place] [address] Phone [phone] Care Team Providers Care Business Manager [employer] Name Role Phone Sami Salas DO Primary Care Provider [phone] Reason for Visit * Reason Comments eRx-Medication Refill Encounter Details Date Type Department Care Team (Late st Contact Info) Description 08/21/2024 Refill Family Practice [facility] [address] [facility] [place] [address] Sami Salas DO [address] [facility] [place] [address] Heart failure, diastolic, with acute decompensation (HCC); [...] of 08/22/2024) Medications lamoTRIgine (LAMICTAL) 200 MG TabletIndications: Schizoaffective disorder, chronic condition ([facility]) TAKE 1 TABLET BY MOUTH TWICE DAILY [...] y in other diseases classified elsewhere ([facility]) Take 1 Cap by mouth at bedtime. 30 Cap 5 021 Active Sertraline HCl 100 MG Oral Tablet (Zoloft)Indication s:Major depressive disorder with single episode, in partial remission ([facility]) Take 1 Tab by mouth daily. 30 [...] by mouth every evening. 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 current use of ant icoagulant therapy 08/31/2010 05/19/2011 Overview (05/02/2017): ICD-10 update of inactive term Dysfunction of eustachian tube 08/17/2010 05/19/2011 Hypersomnia with sleep apnea 08/17/2010 01/15/2023 OTITIS MEDIA, CHRONIC, LEFT 08/17/2010 05/19/2011 Abnormality of gait 03/24/2010 06/18/20 14 ACTIVE CASE MANAGEMENT Kadie David 231 6258 01/06/20 10 05/18/2010 Overview (05/18/2010): [...] PPD 02/27/2013 Pneumococcal Conjugate Vacci ne, 20-valent ([id number]) 03/05/2022 Pneumococcal Polysaccharide PPV23 (Pneumovax) 03/31/2009 Seasonal [...] Telephone Encounter - Sami Salas DO - 08/22/2024 12:32 PM ESTSigned Prescriptions: Disp Refills Potassium Chloride ER 10 MEQ Oral Tablet E*28 Tab*5 Sig: TAKE 1 TABLET BY MOUTH DAILY Authorizing Provider: SAMI SALAS Refused Prescriptions: Disp Refills Furosemide 40 MG Oral Tablet (Lasix) 56 Tab* Sig: TAKE 1 TABLET BY MOUTH TWICE A DAY Refused By: VINCE KIRAN Reason for Refusal: Course of treatment complete * Telephone Encounter - Vince Kiran [facility] - 08/22/2024 11:48 AM ESTPending Prescriptions: Disp Refills Potassium Chloride ER 10 MEQ Oral Tablet E*28 Tab*5 Sig: TAKE 1 TABLET BY MOUTH DAILY Refused Prescriptions: Disp Refills Furosemide 40 MG Oral Tablet (Lasix) 56 Tab* Sig: TAKE 1 TABLET BY MOUTH TWICE A DAY Refused By: VINCE KIRAN Reason for Refusal: Course of treatment complete * Telephone Encounter - Vince Kiran RPh - 08/22/2024 11:40 AM EST Refill previously provided by PCP. Saw cardiology provider 08/21 and noted not currently requiring use of loop diuretic. Medication discontinued on medication list at PCP apt 05/15/24 due to patient preference and reporting she was not taking medication. Forwarding potassium refill to PCP for evaluation if supplement needs to be continued since no longer taking Lasix therapy. Thanks, Vince Kiran, PharmD Clinical Pharmacist [facility]) 08/22/2024, 11:45 AM documented in this encounter Plan of Treatment Upcoming Encounters Date Type Department Care Team (Late st Contact Info) Description 11/20/2024 10:00 AM EDT Office Visit Family Practice [facility] [address] [place] [address] Sami Salas, DO [address] [facility] [place] [address] 03/12/2025 11:20 AM EDT [facility] [address] [place] [phone] Charlette Brannon, [address] [place] [address] 04/11/2025 8:20 AM EDT Office Visit Pulmonary Medicine, [facility] [address] [facility] [place] [address] Yo Abreu MD [address] [place] [address] 05/21/2025 9:25 AM EDT Office Visit Urogynecology [facility] [address] [facility] [place] [address] Del Baron MD [address] [place] [address] Nurse Trae Tucker [facility] [address] [place] [address] 08/22/2025 8:30 AM EST Office Visit Cardiology, [facility] [address] [facility] [place] [address] Griselda Cody CRNP [address] [place] [address] Scheduled Procedures Name Priority Associated Diagnoses Date/Ti [...] and respiratory abnormality documented in this encounter Advance Directives Documents on File Type Date Recorded Patient Data Collection Specialist Expl anation POLST 07/13/2024 signed on 06/27 Care Teams Business Manager [employer] Relationship Specialty Start Date End Date Sami Salas DO [address] [place] [address] PCP - General Family Medicine 12/16/15 documented as of this encounter
--- OUTSIDE RECORDS SUMMARY | 2024-10-30 05:54 | External Medical Summary | Summary of Care ---
Author Name Unknown Organization [facility] Address [address] [place] [address] Phone [phone] Care Team Providers Care Ore Smelter Name Role Phone Brina Salas DO Primary Care Provider [phone] Reason for Visit * Reason Comments Hospital Follow-Up Pt was discharged fr [facility] last 08/09/24. Encounter Details Date Type Department Care Team (Latest Contact Info) Description 08/15/2024 1:40 PM EST Office Visit [facility] [place] [address] [place] [address] Brian Salas DO 200 [facility] [place] [address] Schizoaffective disorder, bipolar type (HCC)*; Chronic diastolic heart failure (HCC); Suicide attempt (HCC); PAF (paroxysmal atrial 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) (HCC); Morbid (severe) obesity due to excess calories (HCC); Heart failure, diastolic, with acute decompensation (HCC) Allergies Active Allergy Reactions Criticality Noted [...] as of this encounter (statuses as of 08/21/2024) Medications lamoTRIgine (LAMICTAL) 200 MG TabletIndications: Schizoaffective disorder, chronic condition ([facility]) TAKE 1 TABLET BY MOUTH TWICE [...] ions:Polyneuropath y in other diseases classified elsewhere ([facility]) Take 1 Cap by mouth at bedtime. 30 Cap 5 021 Active Sertraline HCl 100 MG Oral Tablet (Zoloft)Indication s:Major depressive disorder with single episode, in partial remission ([facility]) Take 1 Tab by mouth daily. [...] taking differently: 2.5 mgOral QPM-1999, Reported on 08/15/2024 Paliperidone ER 6 MG Oral Tablet Extended Release 24 Hour (Invega) Take 1 Tablet by mouth in the morning. 023 Active Perphenazine 2 MG Oral Tablet (Trilafon) [...] EVERY MORNING 90 Capsule 3 024 Active Potassium Chloride ER 10 MEQ Oral Tablet Extended ReleaseIndications :HTN, goal below 140/90,PAF (paroxysmal atrial 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) (HCC),ROSALES (dyspnea on exertion) TAKE 1 TABLET BY MOUTH DAILY 90 Tablet 1 024 Active Breo Ellipta 200-25 MCG/ACT Inhalation [...] and 1 Tablet before bedtime. 025 Active busPIRone HCl 10 MG Oral Tablet (Buspar) Take 1 Tablet by mouth daily. 2024 Discontinued busPIRone HCl 15 MG Oral Tablet (Buspar) Take 1 Tablet by mouth daily. 2024 Discontinued DULoxetine HCl 20 MG Oral Capsule Delayed Release Particles (duloxetine) Take 30 mg by mouth in the morning. 2024 Discontinued documented as of this encounter (statuses as of 08/21/2024) Active Problems Problem Noted Date Diagnosed Date [...] as of this encounter (statuses as of 08/21/2024) Resolved Problems Problem Noted Date Diagnosed Date [...] 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 08/31/2010 10/08/19 11 long term care pharmacist current use of ant icoagulant therapy 08/31/2010 [...] as of this encounter (statuses as of 08/21/2024) Immunizations Name Administration Dates Next Due COVID-19 mRNA, LNP-s, No Pre serve, 2-Dose Series (Moderna) 11/03/2020,10/06/2020 COVID-19 mRNA, LNP-s, No Pre serve, 2-Dose Series (Pfizer) 06/08/2021 Covid-19, Mrna, Lnp-s, Pf, B ivalent, 30 Mcg, IM, 12 yrs and above (Pfizer) 05/05/2022 H1N1 2009 Influenza, IM 08/15/2009 Hepatitis B, 20+ yrs 01/16/2014,04/06/2013,03/05 PPD 02/27/2013 Pneumococcal Conjugate Vacci ne, 20-valent ([id number]) 03/05/2022 Pneumococcal Polysaccharide PPV23 (Pneumovax) 03/31/2009 Seasonal [...] No 07/30/2024 Does the household have a [facility] source of income? (Household - for ages [...] Sign Reading Time Taken Comments Blood Pressure 112/74 08/15/2024 1:36 PM EST Pulse 76 08/15/2024 1:36 PM EST Temperature 36.6 °C (97.9 °F) 08/15/2024 1:36 PM ES T Respiratory Rate - - Oxygen Saturation 95% 08/15/2024 1:36 PM EST Inhaled Oxygen Concentration - - Weight 115.8 kg (255 lb 3.2 oz) 08/15/2024 1:36 PM EST Height 160 cm (5' 3") 08/15/2024 1:36 PM EST Body Mass Index 45.21 08/15/2024 1:36 PM EST documented in this encounter Progress Notes * JonBrian trujillo Jasson, DO - 08/15/2024 1:56 PM EST Subjective: Sofia Melton is a 59 year old female. Chief Complaint Patient presents with Hospital Follow-Up Pt was discharged from hospital last 08/09/24. HPI: PT to [facility] last week for suicidal ideation. I do not have records from them. I have records from 07/24 when she had suicidal ideation with intent to overdose. They felt it was due to situational stressors. There was an outpatient referral placed. She had auditory hallucinations telling her to hurt herself. She was in [facility] 08/09. She was admitted as a 201. She was hearing voices and having paranoia. She has a psychiatry visit on 08/22. Buspirone increased and Cymbalta stopped. HEr dark thoughts fatou come and go. No plan to hurt herself now. Will not hurt herself. She says they did some form of heating her appartment tat has gotten rid of bed bugs. She got her aid back today since the bed bugs are gone. She is still considering assisted living. PMHx, meds, and allergies reviewed Patient Active [...] decompensation (HCC) PAF (paroxysmal atrial 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) (HCC) DNR (do not resuscitate) POLST (Physician Orders for Life-Sustaining Treatment) Suicide attempt (HCC) Current Outpatient Medications Medication Sig Dispense [...] mouth daily. Perphenazine 8 MG Oral Tablet Ventolin HFA [...] breakfast or other meds). 90 Tablet 3 DULoxetine HCl 20 MG Oral Capsule Delayed [...] TABLET BY MOUTH DAILY 28 Tablet 1 Paliperidone ER 6 MG Oral Tablet Extended Release 24 Hour (Invega) Take 1 Tablet by mouth in the morning. (Patient not taking: Reported on 06/27/2024) Perphenazine 2 MG Oral Tablet (Trilafon) Take 2 Tablets by mouth once. (Patient not taking: Reported on 06/27/2024) busPIRone HCl 15 MG Oral Tablet (Buspar) Take 1 Tablet by mouth daily. (Patient not taking: Reported on 08/15/2024) No current facility-administered medications for this visit. Review of patient's allergies indicates: Allergen Reactions Adhesive Tape Other reaction(s): RASH, ITCHY Alcohol Other reaction(s): Seizure Hydantoins Other reaction(s): Hives, Nausea Phenytoin Other Reaction(s): Itchy rash Thioridazine Other reaction(s): SEIZURES Ethanol Latex rash Phenytoin Sodium Rash Torsemide ? possible rash on legs and arms Wound Dressing Adhesive Itching and Rash OBJECTIVE: BP 112/74 (BP Site: Left Arm, BP Position: Sitting, BP Cuff Size: Regular) | Pulse 76 | Temp 97.9 °F (36.6 °C) (Tympanic) | Ht 5' 3" (1.6 m) | Wt 255 lb 3.2 oz (115.8 kg) | SpO2 95% | BMI 45.21 kg/m² | BSA 2.27 m² Estimated body mass index is 45.21 kg/m² as calculated from the following: Height as of this encounter: 5' 3" (1.6 m). Weight as of this encounter: 255 lb 3.2 oz (115.8 kg). BP Readings from Last 3 Encounters: 08/15/24 112/74 06/29/24 120/60 06/27/24 114/58 Wt Readings from Last 3 Encounters: 08/15/24 255 lb 3.2 oz (115.8 kg) 06/27/24 277 lb (125.6 kg) 05/15/24 282 lb 12.8 oz (128.3 kg) ROS: Negative except for above PHYSICAL EXAM: General: alert, healthy, and no distress Head: Normocephalic, No masses, lesions, tenderness or abnormalities Heart: regular rate & rhythm, no murmur, and no gallops Lungs: chest symmetric with normal AP diameter, no chest deformities noted, no chest wall tenderness, lungs clear to auscultation ASSESSMENT/Plan Schizoaffective disorder, bipolar type (HCC) (Primary) Chronic diastolic heart failure (HCC) Suicide attempt (HCC) PAF (paroxysmal atrial 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) (HCC) Morbid (severe) obesity due to excess calories (HCC) Heart failure, diastolic, with acute decompensation (HCC) I spent a total of 30 minutes on the date of service in preparation, delivery, and documentation ofthe care provided to this patient, excluding any time spent on the performance of any procedure or separately billable services. Sofia's depression does have a certain amount of situational cause. Getting rid of bed bugs and getting her aid back gets her a social connection again. Hopefully the treatment works correction. Follow-up with psychiatry scheduled. The above was discussed and understanding was expressed. Brian Salas DO documented in this encounter Nursing Notes * Umer Rizzo CMA - 08/15/2024 1:36 PM EST Pt shared that they were recently hospitalized for trying to take their own life. documented in this encounter Plan of Treatment Upcoming Encounters Date Type Department Care Team (Late st Contact Info) Description 11/20/2024 10:00 AM EDT Office Visit [facility] [address] [facility] [place] [address] Brian Salas DO [address] [facility] [place] [address] 03/12/2025 11:20 AM EDT Office Visit Sleep Disorders Ctr [facility] [address] [place] [phone] Charlette Brannon DO [address] [place] [address] 04/11/2025 8:20 AM EDT Office Visit Pulmonary Medicine, [facility] [address] [place] [address] Yo Abreu MD [address] [place] [address] 05/21/2025 9:25 AM EDT Office Visit Urogynecology [facility] [address] [place] [id number] Del Baron MD [address] [place] [address] Nurse Trae Tucker [address] [place] [address] Scheduled Procedures Name Priority Associated Diagnoses Date/Ti [...] as of this encounter Visit Diagnoses Diagnosis Schizoaffective disorder, bipolar type (HCC)- Primary Schizoaffective disorder, unspecified condition Chronic diastolic heart failure (HCC) Chronic diastolic heart failure Suicide attempt (HCC) Suicide and self-inflicted injury by unspecified means PAF (paroxysmal atrial 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) (HCC) 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 Morbid (severe) obesity due to excess calories (HCC) Heart failure, diastolic, with acute decompensation (HCC) Acute on chronic diastolic heart failure documented in this encounter Advance Directives Documents on File Type Date Recorded Patient Drive In Theater Attendant Expl anation POLST 07/13/2024 signed on 06/27 Care Teams Ore Smelter Relationship Specialty Start Date End Date Brian Salas DO [address] [place] [address] PCP - General Family Medicine 12/16/15 documented as of this encounter
--- OUTSIDE RECORDS SUMMARY | 2024-10-30 05:55 | External Medical Summary | Summary of Care ---
Author Name Unknown Organization [facility] Address [address] [place] [address] Phone [phone] Care Team Providers Care Threat Analyst Name Role Phone Brian Salas DO Primary Care Provider [phone] Reason for Visit * Reason Onset Date Comments Fax 08/02/2024 Encounter Details Date Type Department Care Team (Late st Contact Info) Description 08/02/2024 Telephone Family Practice [facility] [address] [place] [address] Brian Salas DO [facility] [address] Fax Allergies Active Allergy Reactions Criticality Noted Date [...] as of this encounter (statuses as of 08/02/2024) Medications lamoTRIgine (LAMICTAL) 200 MG TabletIndications:S chizoaffective [...] (Neurontin)Indicati ons:Polyneuropathy in other diseases classified elsewhere ([facility]) Take 1 Cap by mouth at bedtime. 30 Cap 5 05/11/20 21 Active Sertraline HCl 100 MG Oral Tablet (Zoloft)Indications :Major depressive disorder with single episode, in partial remission ([facility]) Take 1 Tab by mouth daily. 30 [...] Take 1 Tablet by mouth daily. 06/04/20 Active Perphenazine 8 MG Oral Tablet 06/04/20 [...] mouth every evening. 30 Tablet 11 03/08/20 Active Additional Information Patient taking differently: 2.5 [...] Additional Information Patient not taking.Reported on 06/27/2024 Levothyroxine Sodium 200 MCG Oral Tablet (Levoxyl) [...] DAILY 28 Tablet 1 07/31/20 24 Active documented as of this encounter (statuses as of 08/02/2024) Active Problems Problem Noted Date Diagnosed Date [...] as of this encounter (statuses as of 08/02/2024) Resolved Problems Problem Noted Date Diagnosed Date [...] 1 09/25/2012 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/31/2010 10/08/19 11 topstitcher zigzag current use of ant icoagulant therapy 08/31/2010 [...] as of this encounter (statuses as of 08/02/2024) Immunizations Name Administration Dates Next Due COVID-19 mRNA, LNP-s, No Pre serve, 2-Dose Series (Moderna) 11/03/2020,10/06/2020 COVID-19 mRNA, LNP-s, No Pre serve, 2-Dose Series (Pfizer) 06/08/2021 Covid-19, Mrna, Lnp-s, Pf, B ivalent, 30 Mcg, IM, 12 yrs and above (Pfizer) 05/05/2022 H1N1 2009 Influenza, IM 08/15/2009 Hepatitis B, 20+ yrs 01/16/2014,04/06/2013,03/05 PPD 02/27/2013 Pneumococcal Conjugate Vacci ne, 20-valent ([id number]) 03/05/2022 Pneumococcal Polysaccharide PPV23 (Pneumovax) 03/31/2009 Seasonal [...] Telephone Encounter - Rowena Kessler LPN - 08/02/2024 12:40 PM EST Med list faxed, confirmation received. * Telephone Encounter - Rachel Alvarez OSA - 08/02/2024 9:23 AM EST Caller requesting the following information to be faxed: Name/Company of caller: [employer] Information requested to be faxed: Pts full medication list Fax number: [phone] Attention to Name/Company: [employer] Any additional information?: n/a documented in this encounter Plan of Treatment Upcoming Encounters Date Type Department Care Team (Late st Contact Info) Description 08/21/2024 8:30 AM EST Office Visit Cardiology, [facility] [address] [place] [address] Griselda Cody CRNP [address] [place] [address] 11/20/2024 10:00 AM EDT Office Visit Family [facility] [address] [facility] [place] [address] Brian Salas, DO [address] [facility] [place] [address] 03/12/2025 11:20 AM EDT Office Visit Sleep Disorders Ctr [facility] [address] [place] [phone] Charlette Brannon, [address] [place] [address] 04/11/2025 8:20 AM EDT Office Visit Pulmonary Medicine, [facility] [address] [place] [address] Yo Abreu MD [address] [place] [address] 05/21/2025 9:25 AM EDT Office Visit Urogynecology [facility] [address] [place] [address] Del Baron MD [address] [place] [address] Nurse Trae Tucker [facility] [address] [place] [address] Scheduled Procedures Name Priority Associated Diagnoses Date/Ti [...] Documents on File Type Date Recorded Patient Kiln Transfer Operator Expl anation POLST 07/13/2024 signed on 06/27 Care Teams Threat Analyst Relationship Specialty Start Date End Date Brian Salas DO [address] [place] [address] PCP - General Family Medicine 12/16/15 documented as of this encounter
--- OUTSIDE RECORDS SUMMARY | 2024-10-30 05:55 | External Medical Summary | Summary of Care ---
Author Name Unknown Organization [facility] Address [address] [facility] [place] [address] Phone [phone] Care Team Providers Care Manager Cancer Name Role Phone Sami Salas DO Primary Care Provider [phone] Reason for Visit * Reason Comments eRx-Medication Refill Encounter Details Date Type Department Care Team (Late st Contact Info) Description 07/27/2024 Refill Family Practice [facility] [address] [place] [address] Sami Salas DO 200 [facility] [place] [address] PAF (paroxysmal atrial 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) ([facility]) Allergies Active Allergy Reactions Criticality Noted Date [...] as of this encounter (statuses as of 07/30/2024) Medications lamoTRIgine (LAMICTAL) 200 MG TabletIndications: Schizoaffective disorder, chronic condition (HCC) TAKE 1 TABLET BY MOUTH TWICE DAILY MOOD DISORDER 180 Tab 1 018 Active Vitamin B-2 100 MG Oral Tablet (vitamin B-2) TAKE 4 TABLETS (400MG) BY MOUTH DAILY 112 Tab 4 020 Active Additional Information Patient not taking.Informant: Patient, Reported on 06/27/2024 Mirtazapine 30 MG Oral Tablet (REMERON) TAKE 1 TABLET BY MOUTH EVERYDAY AT BEDTIME 30 Tab 5 020 Active Melatonin 3 MG Oral CapsuleIndications :Primary insomnia Take 1 Cap by mouth at bedtime. 90 Cap 3 021 Active Gabapentin 300 MG Oral Capsule (Neurontin)Indicat ions:Polyneuropath y in other diseases classified elsewhere ([facility]) Take 1 Cap by mouth at bedtime. 30 Cap 5 021 Active Sertraline HCl 100 MG Oral Tablet (Zoloft)Indication s:Major depressive disorder with single episode, in partial remission ([facility]) Take 1 Tab by mouth daily. 30 [...] by mouth every evening. 90 Tablet 3 Active Additional Information Patient not taking.Reported [...] 2 times a day. 60 Tablet 11 Active hydrALAZINE HCl 25 MG Oral Tablet [...] &NOTIFY SERVICE IF DOSE 28 Tablet 8 Active Montelukast Sodium 10 MG Oral Tablet (Singulair)Indicat ions:Mixed rhinitis,Moderate persistent asthma without complication Take 1 Tablet by mouth at bedtime. 30 Tablet 6 12/27/2 024 Active Sotalol HCl 80 MG Oral Tablet (Betapace)Indicati ons:PAF (paroxysmal atrial 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) ([facility]) TAKE 1/2 TABLET BY MOUTH TWICE A DAY *HOLD FOR HEART RATE LESS THAN 60 OR SYSTOLIC BLOOD PRESSURE LESS THAN 100 &NOTIFY SERVICE IF DOSE 28 Tablet 8 024 2023 Discontinued documented as of this encounter (statuses as of 07/30/2024) Active Problems Problem Noted Date Diagnosed Date [...] as of this encounter (statuses as of 07/30/2024) Resolved Problems Problem Noted Date Diagnosed Date [...] (05/18/2010): ACTIVE CASE MANAGEMENT Kadie Hernandez [phone] Dyslipidemia, goal LDL below 130 09/30/2009 01/15/2023 [...] as of this encounter (statuses as of 07/30/2024) Immunizations Name Administration Dates Next Due COVID-19 mRNA, LNP-s, No Pre serve, 2-Dose Series (Moderna) 11/03/2020,10/06/2020 COVID-19 mRNA, LNP-s, No Pre serve, 2-Dose Series (Pfizer) 06/08/2021 Covid-19, Mrna, Lnp-s, Pf, B ivalent, 30 Mcg, IM, 12 yrs and above (Pfizer) 05/05/2022 H1N1 2009 Influenza, IM 08/15/2009 Hepatitis B, 20+ yrs 01/16/2014,04/06/2013,03/05 PPD 02/27/2013 Pneumococcal Conjugate Vacci ne, 20-valent ([id number]) 03/05/2022 Pneumococcal Polysaccharide PPV23 (Pneumovax) 03/31/2009 Seasonal [...] Telephone Encounter - Sami Salas DO - 07/30/2024 12:05 PM ESTSigned Prescriptions: Disp Refills Sotalol HCl 80 MG Oral Tablet (Betapace) 28 Tab*8 Sig: TAKE 1/2 TABLET BY MOUTH TWICE A DAY *HOLD FOR HEART RATE LESS THAN 60 OR SYSTOLIC BLOOD PRESSURE LESS THAN 100 &NOTIFY SERVICE IF DOSE Authorizing Provider: SAMI SALAS * Telephone Encounter - Interface, E-Rx Ss Inbound - 07/30/2024 11:04 AM EST Pending Prescriptions: Disp Refills Sotalol HCl 80 MG Oral Tablet (Betapace) 28 Tab*8 Sig: TAKE 1/2 TABLET BY MOUTH TWICE A DAY *HOLD FOR HEART RATE LESS THAN 60 OR SYSTOLIC BLOOD PRESSURE LESS THAN 100 &NOTIFY SERVICE IF DOSE * Telephone Encounter - Dea Peng [facility] - 07/29/2024 6:05 AM EST Pending Prescriptions: Disp Refills Sotalol HCl 80 MG Oral Tablet (Betapace) 28 Tab*8 Sig: TAKE 1/2 TABLET BY MOUTH TWICE A DAY *HOLD FOR HEART RATE LESS THAN 60 OR SYSTOLIC BLOOD PRESSURE LESS THAN 100 &NOTIFY SERVICE IF DOSE * Telephone Encounter - Dea Peng RP - 07/29/2024 6:04 AM EST Protocol not met - due for EKG documented in this encounter Plan of Treatment Upcoming Encounters Date Type Department Care Team (Late st Contact Info) Description 08/02/2024 10:00 AM EST Office Visit Rheumatology [facility] [address] [facility] [place], [place] [address] Rui Tee MD [address] [facility] [place], [place] [address] 08/21/2024 8:30 AM EST Office Visit Cardiology, [facility] [address] [place] [address] Griselda Cody CRNP [address] [place] [address] 11/20/2024 10:00 AM EDT Office Visit Family Practice [facility] [address] [place] [address] Sami Salas, DO [address] [place] [address] 03/12/2025 11:20 AM EDT Office Visit Sleep Disorders Ctr [facility] [address] [place] [phone] Charlette Brannon, DO [address] [place] [address] 04/11/2025 8:20 AM EDT Office Visit Pulmonary Medicine, [facility] [address] [place] [address] Yo Abreu MD [address] [place] [address] 05/21/2025 9:25 AM EDT Office Visit Urogynecology [facility] [address] [place] [address] Del Baron MD [address] [place] [address] Nurse Trae Tucker [address] [place] [address] Scheduled Orders Name Type Priority Associated Diagnoses Orde r Schedule MAGNESIUM Lab Routine PAF (paroxysmal atrial 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) (HCC) Expected: 10/02/2024 (Approximate), Expires: 07/29/2025 Scheduled Procedures Name Priority Associated Diagnoses Date/Ti [...] as of this encounter Visit Diagnoses Diagnosis PAF (paroxysmal atrial 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) (HCC) 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 documented in this encounter Advance Directives Documents on File Type Date Recorded 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
--- OUTSIDE RECORDS SUMMARY | 2024-10-30 05:55 | External Medical Summary | Summary of Care ---
Author Name Unknown Organization [facility] Address [address] [place] [address] Phone [phone] Care Team Providers Care Compensation Advisor Name Role Phone AramisBrian self Primary Care Provider [phone] Reason for Visit * Reason Comments eRx-Medication Refill Encounter Details Date Type Department Care Team (Late st Contact Info) Description 07/30/2024 Refill Cardiology, [facility] [address] [place] [address] Griselda Kennedy CRNP [address] [facility] [address] Dyslipidemia, goal LDL below 130 Allergies Active [...] as of this encounter (statuses as of 07/31/2024) Medications lamoTRIgine (LAMICTAL) 200 MG TabletIndications: Schizoaffective disorder, chronic condition ([facility]) TAKE 1 TABLET BY MOUTH TWICE [...] in other diseases classified elsewhere ([facility]) Take 1 Cap by mouth at bedtime. 30 Cap 5 021 Active Sertraline HCl 100 MG Oral Tablet (Zoloft)Indication s:Major depressive disorder with single episode, in partial remission ([facility]) Take 1 Tab by mouth daily. [...] TABLET BY MOUTH DAILY 90 Tablet 1 Active tiZANidine HCl 4 MG Oral Tablet (Zanaflex)Indicati ons:Acute pain of left shoulder TAKE 1 TABLET BY MOUTH EVERY 8 HOURS NEEDED FOR MUSCLE SPASMS 30 Tablet 5 Active Mirabegron ER 50 MG Oral Tablet Extended Release 24 Hour (Myrbetriq) Take 1 Tablet by mouth every evening. 90 Tablet 3 Active Additional Information Patient not taking.Reported on 06/27/2024 Levothyroxine Sodium 200 MCG Oral Tablet (Levoxyl) Take 1 Tablet by mouth in the morning. (at least 30 min prior to breakfast or other meds). 90 Tablet 3 Active busPIRone HCl 15 MG Oral Tablet (Buspar) Take 1 Tablet by mouth daily. Active DULoxetine HCl 20 MG Oral Capsule Delayed Release Particles (duloxetine) Take 30 mg by mouth in the morning. Active Spironolactone 25 MG Oral Tablet (Aldactone)Indicat ions:HTN, goal below 130/80,Chronic diastolic heart failure (HCC) Take 1 Tablet by mouth in the morning. 90 Tablet 3 Active amLODIPine Besylate 5 MG Oral Tablet (Norvasc) Take 1 Tablet by mouth 2 times a day. 60 Tablet 11 Active hydrALAZINE HCl 25 MG Oral Tablet (Apresoline) Take 3 Tablets by mouth in the morning and 3 Tablets at noon and 3 Tablets before bedtime. 270 Tablet 11 Active Sotalol HCl 80 MG Oral Tablet [...] by mouth at bedtime. 30 Tablet 6 Active Rosuvastatin Calcium 5 MG Oral Tablet (Crestor)Indicatio ns:Dyslipidemia, goal LDL below 130 TAKE 1 TABLET BY MOUTH DAILY 28 Tablet 1 Active Rosuvastatin Calcium 5 MG Oral Tablet (Crestor)Indicatio ns:Dyslipidemia, goal LDL below 130 TAKE 1 TABLET BY MOUTH DAILY 90 Tablet 024 2023 Discontinued documented as of this encounter (statuses as of 07/31/2024) Active Problems Problem Noted Date Diagnosed Date [...] as of this encounter (statuses as of 07/31/2024) Resolved Problems Problem Noted Date Diagnosed Date [...] Overview (05/18/2010): ACTIVE CASE MANAGEMENT Kadie Hernandez [phone] Dyslipidemia, goal LDL below 130 09/30/2009 01/15/2023 [...] as of this encounter (statuses as of 07/31/2024) Immunizations Name Administration Dates Next Due COVID-19 mRNA, LNP-s, No Pre serve, 2-Dose Series (Moderna) 11/03/2020,10/06/2020 COVID-19 mRNA, LNP-s, No Pre serve, 2-Dose Series (Pfizer) 06/08/2021 Covid-19, Mrna, Lnp-s, Pf, B ivalent, 30 Mcg, IM, 12 yrs and above (Pfizer) 05/05/2022 H1N1 2009 Influenza, IM 08/15/2009 Hepatitis B, 20+ yrs 01/16/2014,04/06/2013,03/05 PPD 02/27/2013 Pneumococcal Conjugate Vacci ne, 20-valent ([id number]) 03/05/2022 Pneumococcal Polysaccharide PPV23 (Pneumovax) 03/31/2009 Seasonal Influenza Vac., MDV , IM, 0.5 mL (Fluzone) 2017,09/10/2015,05/10/2014,05/18,05/05/2012,04/20/2011,05/15/2010 ,07/15/2009,05/22/2008,05/24/2007,0 08/2005 Seasonal Influenza Virus Vac cine, Unspecified [...] No 07/30/2024 Does the household have a [facility] surgery[facility] source of income? (Household - for ages [...] Telephone Encounter - Griselda Kennedy CRNP - 07/31/2024 2:09 PM EST Signed Prescriptions: Disp Refills Rosuvastatin Calcium 5 MG Oral Tablet (Cre*28 Tab*1 Sig: TAKE 1 TABLET BY MOUTH DAILY Authorizing Provider: GRISELDA KENNEDY * Telephone Encounter - Gina Dozier RPh - 07/31/2024 1:15 PM ESTPending Prescriptions: Disp Refills Rosuvastatin Calcium 5 MG Oral Tablet (Cre*28 Tab*1 Sig: TAKE 1 TABLET BY MOUTH DAILY * Telephone Encounter - Gina Dozier RPh - 07/31/2024 1:13 PM EST To establish with new provider on 08/21/24. Please approve of refill request. Lipid panel is placed for patient to complete. Thanks, Gina Dozier PharmD Clinical Pharmacist [facility] 07/31/2024, 1:15 PM * Telephone Encounter - Meena Griffin button broacher - 07/31/2024 12:40 PM EST Maura from [employer] calling to check on status of Rosuvastatin. Caller can be reached at [phone] . Maura states that patient gets a pill pack and due to holiday they are trying to get this out today. Requesting this be expedited. Thank you, Meena Griffin Inspector Casing I [facility] 07/31/2024,12:40 PM * Telephone Encounter - Lauren Grimes CPhT - 07/31/2024 12:38 PM EST Maura gisel regarding medication, transferred to [facility] for further assistance. Thank you, Lauren Grimes CPhT Supervisor [employer] [employer] [facility] 07/31/2024,12:39 PM * Telephone Encounter - Demetri Page - 07/30/2024 10:55 PM ESTPending Prescriptions: Disp Refills Rosuvastatin Calcium 5 MG Oral Tablet [Pha*28 Tab* Sig: TAKE 1 TABLET BY MOUTH DAILY * Telephone Encounter - Demetri Page - 07/30/2024 10:53 PM EST Did you pend patient's preferred pharmacy and medication before forwarding?yes [facility] [id number] [facility] [place] Pending Prescriptions: Disp Refills Rosuvastatin Calcium 5 MG Oral Tablet (Cr*28 Tab* Sig: TAKE 1 TABLET BY MOUTH DAILY Last Visit: 11/30/2022 (in office), Visit date not found (telemedicine) Next Visit: 08/21/2024 If no future appointments scheduled, and last appointment is greater than a year ago, please schedule patient for a follow-up appointment Last date the medication was ordered: 05/07/2024 Is this request for a controlled substance?No [...] 08/02/2024 10:00 AM EST Office Visit Rheumatology [facility] [address] [facility] [place] [address] Rui Tee MD [facility] [employer] [address] 08/21/2024 8:30 AM EST Office Visit Cardiology, [facility] [address] [place] [address] Griselda Kennedy CRNP [address] [place] [address] 11/20/2024 10:00 AM EDT Office Visit Family Practice [facility] [place] [address] [place] [address] Brian Salas, DO [address] [facility] [place] [address] 03/12/2025 11:20 AM EDT Office Visit Sleep Disorders Ctr [facility] [address] [place] [place] [phone] Charlette Brannon DO [address] [place] [address] 04/11/2025 8:20 AM EDT Office Visit Pulmonary Medicine, [facility] [address] [address] Yo Abreu MD [address] [place] [address] 05/21/2025 9:25 AM EDT Office Visit Urogynecology [facility] [address] [place] [address] Del Baron MD [address] [place] [address] TuckerNurse emelyn Urogyn [facility] [address] [place] [address] Scheduled Procedures Name Priority Associated Diagnoses Date/Ti [...] Documents on File Type Date Recorded Patient Cp Bleacher Operator Expl anation POLST 07/13/2024 signed on 06/27 Care Teams Compensation Advisor Relationship Specialty Start Date End Date Brian Salas DO [address] [place] [address] PCP - General Family Medicine 12/16/15 documented as of this encounter
--- OUTSIDE RECORDS SUMMARY | 2024-10-30 05:55 | External Medical Summary | Summary of Care ---
Author Name Unknown Organization [facility] Address [address] [place] [address] Phone [phone] Care Team Providers Care Co Founder And Ceo Name Role Phone Maritza Brian Jasson PRATHER Primary Care Provider [phone] Encounter Details Date Type Department Care Team (Late st Contact Info) Description 08/20/2024 Population Health External Data Unspecified Department Allergies Active Allergy Reactions Criticality Noted Date [...] as of this encounter (statuses as of 08/20/2024) Medications lamoTRIgine (LAMICTAL) 200 MG TabletIndications:S chizoaffective [...] as of this encounter (statuses as of 08/20/2024) Active Problems Problem Noted Date Diagnosed Date [...] as of this encounter (statuses as of 08/20/2024) Resolved Problems Problem Noted Date Diagnosed Date [...] as of this encounter (statuses as of 08/20/2024) Immunizations Name Administration Dates Next Due COVID-19 mRNA, LNP-s, No Pre serve, 2-Dose Series (Moderna) 11/03/2020,10/06/2020 COVID-19 mRNA, LNP-s, No Pre serve, 2-Dose Series (Pfizer) 06/08/2021 Covid-19, Mrna, Lnp-s, Pf, B ivalent, 30 Mcg, IM, 12 yrs and above (Pfizer) 05/05/2022 H1N1 2009 Influenza, IM 08/15/2009 Hepatitis B, 20+ yrs 01/16/2014,04/06/2013,03/05 PPD 02/27/2013 Pneumococcal Conjugate Vacci ne, 20-valent ([id number]) 03/05/2022 Pneumococcal Polysaccharide PPV23 (Pneumovax) 03/31/2009 Seasonal [...] [facility] [address] [place] [address] Griselda Cody CRNP [address] [place] [address] 11/20/2024 10:00 AM EDT Office Visit Family Practice [facility] [address] [facility] [address] [place] [address] Brian Salas, DO 200 [facility] [place] [address] 03/12/2025 11:20 AM EDT Office Visit Sleep Disorders Ctr [facility] [address] [place] [phone] Charlette Brannon, DO [address] [place] [address] 04/11/2025 8:20 AM EDT Office Visit Pulmonary Medicine, 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
--- OUTSIDE RECORDS SUMMARY | 2024-10-30 05:55 | External Medical Summary | Summary of Care ---
Author Name Unknown Organization [facility] Address [address] [place] [address] Phone [phone] Care Team Providers Care Client Service Representative Name Role Phone Brian Salas DO Primary Care Provider [phone] Reason for Visit * Reason Onset Date Comments Medical Records Request 08/08/2024 Encounter Details Date Type Department Care Team (Late st Contact Info) Description 08/08/2024 Telephone Family Practice [facility] [place] [address] [facility] [place], [place] [address] Brian Salas DO 200 [facility] [place], [place] [address] Medical Records Request Allergies Active Allergy Reactions [...] as of this encounter (statuses as of 08/08/2024) Medications lamoTRIgine (LAMICTAL) 200 MG TabletIndications:S chizoaffective disorder, chronic condition ([facility]) TAKE 1 TABLET BY MOUTH TWICE DAILY [...] ons:Polyneuropathy in other diseases classified elsewhere ([facility]) Take 1 Cap by mouth at bedtime. 30 Cap 5 05/11/20 21 Active Sertraline HCl 100 MG Oral Tablet (Zoloft)Indications :Major depressive disorder with single episode, in partial remission ([facility]) Take 1 Tab by mouth daily. 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 08/31/2010 05/19/2011 Overview (05/02/2017): ICD-10 update of inactive term Dysfunction of eustachian tube 08/17/2010 05/19/2011 Hypersomnia with sleep apnea 08/17/2010 01/15/2023 OTITIS MEDIA, CHRONIC, LEFT 08/17/2010 05/19/2011 Abnormality of gait 03/24/2010 06/18/20 14 ACTIVE CASE MANAGEMENT Kadie Hernandez [phone] 01/06/2005/18/2010 Overview (05/18/2010): ACTIVE CASE MANAGEMENT Kadie Hernandez [...] as of this encounter (statuses as of 08/08/2024) Immunizations Name Administration Dates Next Due COVID-19 mRNA, LNP-s, No Pre serve, 2-Dose Series (Moderna) 11/03/2020,10/06/2020 COVID-19 mRNA, LNP-s, No Pre serve, 2-Dose Series (Pfizer) 06/08/2021 Covid-19, Mrna, Lnp-s, Pf, B ivalent, 30 Mcg, IM, 12 yrs and above (Pfizer) 05/05/2022 H1N1 2009 Influenza, IM 08/15/2009 Hepatitis B, 20+ yrs 01/16/2014,04/06/2013,03/05 PPD 02/27/2013 Pneumococcal Conjugate Vacci ne, 20-valent ([id number]) 03/05/2022 Pneumococcal Polysaccharide PPV23 (Pneumovax) 03/31/2009 Seasonal [...] Telephone Encounter - Ricki Jang OSA - 08/08/2024 1:26 PM EST Record Request received from [facility]. Request forwarded to [facility] ([id number]) via [employer]. documented in this encounter Plan of Treatment Upcoming Encounters Date Type Department Care Team (Late st Contact Info) Description 08/15/2024 1:40 PM EST Office Visit Family Practice [facility] [place] [address] [place] [address] Brian Salas, DO [address] [place] [address] 08/21/2024 8:30 AM EST Office Visit Cardiology, [facility] [address] [place] [address] Griselda Cody CRNP [address] [place] [address] 11/20/2024 10:00 AM EDT Office Visit Family Practice [facility] [address] [facility] [place] [address] Brian Salas, DO [address] [facility] [place], [place] [address] 03/12/2025 11:20 AM EDT Office Visit Sleep Disorders Ctr [facility] [address] [facility] [place] [phone] Charlette Brannon, DO [address] [place] [address] 04/11/2025 8:20 AM EDT Office Visit Pulmonary Medicine, [facility] [address] [facility] [place] [address] Yo Abreu MD [address] [facility] [address] 05/21/2025 9:25 AM EDT Office Visit Urogynecology [facility] [address] [place] [address] Del Baron MD [address] [place] [address] Nurse Trae Tucker [address] [place] [address] Scheduled Procedures Name Priority Associated Diagnoses Date/Ti [...] Documents on File Type Date Recorded Patient Patient Information Coordinator Fabiola barcenas POL 07/13/2024 signed on 06/27 Care Teams Client Service Representative Relationship Specialty Start Date End Date Brian Salas DO [address] [facility] [place] [address] PCP - General Family Medicine 12/16/15 documented as of this encounter
--- OUTSIDE RECORDS SUMMARY | 2024-10-30 05:55 | External Medical Summary ---
Author Name UNSPECIFIED Address Unknown Organization [facility] History of Encounters Reason for Assessment: Transferred to an inpatient facility - patient not discharged from agency Inpatient Facility where the patient been admitted: Hospital
--- OUTSIDE RECORDS SUMMARY | 2024-10-30 05:55 | External Medical Summary | Summary of Care ---
Author Name Unknown Organization [facility] Address [address] [facility] [place] [address] Phone [phone] Care Team Providers Care Dry Lumber Grader Name Role Phone AramisjajaronnieBrian Primary Care Provider [phone] Reason for Visit * Reason Onset Date Comments Medication Refill 07/27/2024 Montelukast 10 mg tab Encounter Details Date Type Department Care Team (Late st Contact Info) Description 07/27/2024 Refill Pulmonary Medicine Angy Alejandre [address] [place] [phone] Yo Rivero MD [address] [id number] Moderate persistent asthma without complication*; Mixed rhinitis Allergies Active Allergy Reactions Criticality Noted Date [...] as of this encounter (statuses as of 07/27/2024) Medications lamoTRIgine (LAMICTAL) 200 MG TabletIndications:S chizoaffective disorder, chronic condition ([facility] [...] ons:Polyneuropathy in other diseases classified elsewhere ([facility] [...] HOURS NEEDED FOR WHEEZING 18 g 5 02/16/20 23 Active Additional Information Patient not taking.Informant: Patient, Reported on 06/27/2024 Pantoprazole Sodium 40 MG Oral Tablet Delayed Release (Protonix) Take 1 Tablet by mouth in the morning. 90 Tablet 3 12/14/19 Active Additional Information Patient not taking.Informant: Patient, [...] DOSE 28 Tablet 8 11/16/19 24 Active Potassium Chloride ER 10 MEQ [...] bedtime. 270 Tablet 11 06/27/20 24 Active Montelukast Sodium 10 MG Oral Tablet (Singulair)Indicati ons:Mixed rhinitis,Moderate persistent asthma without complication Take 1 Tablet by mouth at bedtime. 30 Tablet 6 07/27/20 Active Montelukast Sodium 10 MG Oral Tablet (Singulair)Indicati ons:Mixed rhinitis,Moderate persistent asthma without complication Take 1 Tablet by mouth at bedtime. 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 08/31/2010 05/19/2011 Overview (05/02/2017): ICD-10 update of inactive term Dysfunction of eustachian tube 08/17/2010 05/19/2011 Hypersomnia with sleep apnea 08/17/2010 01/15/2023 OTITIS MEDIA, CHRONIC, LEFT 08/17/2010 05/19/2011 Abnormality of gait 03/24/2010 06/18/20 14 ACTIVE CASE MANAGEMENT Kadie Hernandez [phone] 01/06/20 10 05/18/2010 Overview (05/18/2010): ACTIVE CASE MANAGEMENT Kadie Hernandez [phone] Dyslipidemia, goal LDL below 130 09/30/2009 01/15/2023 [...] as of this encounter (statuses as of 07/27/2024) Immunizations Name Administration Dates Next Due COVID-19 mRNA, LNP-s, No Pre serve, 2-Dose Series (Moderna) 11/03/2020,10/06/2020 COVID-19 mRNA, LNP-s, No Pre serve, 2-Dose Series (Pfizer) 06/08/2021 Covid-19, Mrna, Lnp-s, Pf, B ivalent, 30 Mcg, IM, 12 yrs and above (Pfizer) 05/05/2022 H1N1 2009 Influenza, IM 08/15/2009 Hepatitis B, 20+ yrs 01/16/2014,04/06/2013,03/05 PPD 02/27/2013 Pneumococcal Conjugate Vacci ne, 20-valent ([id number]) 03/05/2022 Pneumococcal Polysaccharide PPV23 (Pneumovax) 03/31/2009 Seasonal [...] encounter Miscellaneous Notes * Telephone Encounter - Yo Rivero MD - 07/27/2024 3:51 PM EST Signed Prescriptions: Disp Refills Montelukast Sodium 10 MG Oral Tablet (Sing*30 Tab*6 Sig: Take 1 Tablet by mouth at bedtime.Authorizing Provider: YO RIVERO documented in this encounter Plan of Treatment Upcoming Encounters Date Type Department Care Team (Late st Contact Info) Description 08/02/2024 10:00 AM EST Office Visit Rheumatology [place] [id number] [facility] [place] [address] Rui Tee MD [facility] [place] [address] 08/21/2024 8:30 AM EST Office Visit Cardiology, [facility] [address] [place] [address] Griselda Cody CRNP [address] [facility] [place] [address] 11/20/2024 10:00 AM EDT Office Visit Family Practice [facility] [address] [facility] [place] [address] Brian Salas, DO [address] [facility] [place] [address] 03/12/2025 11:20 AM EDT Office Visit Sleep Disorders [facility] [address] [place] [phone] Charlette Brannon, DO [address] [place] [address] 04/11/2025 8:20 AM EDT Office Visit Pulmonary Medicine, [facility] [address] [place] [address] Yo Rivero MD [address] [facility] [place] [address] 05/21/2025 9:25 AM EDT Office Visit Urogynecology Cristy Garrett [address] [place] [address] Del Baron MD [address] [place] [address] Nurse Trae Tucekr [address] [place] [address] Scheduled Procedures Name Priority Associated Diagnoses Date/Ti [...] Visit Diagnoses Diagnosis Moderate persistent asthma without complication- Primary Unspecified asthma Mixed rhinitis Chronic rhinitis documented in this encounter Advance Directives Documents on File Type Date Recorded 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
--- OUTSIDE RECORDS SUMMARY | 2024-10-30 05:56 | External Medical Summary | Summary of Care ---
Author Name Unknown Organization [facility] Address [address] [place] [address] Phone [phone] Care Team Providers Care [employer] Communications Sergeant Name Role Phone AramisBrian self Primary Care Provider [phone] Reason for Visit * Reason Onset Date Comments FYI 07/17/2024 Admitted to [facility] Encounter Details Date Type Department Care Team (Latest Contact Info) Description 07/17/2024 Mold Filler Telephone Care Coordination and Integration [address] [place] [address] Kristina Silver RN [address], [place] [phone] FYI (Admitted to [facility]... Allergies Active Allergy Reactions Criticality Noted Date [...] as of this encounter (statuses as of 07/17/2024) Medications lamoTRIgine (LAMICTAL) 200 MG TabletIndications:S chizoaffective disorder, chronic condition ([facility]) TAKE 1 TABLET BY MOUTH [...] (Neurontin)Indicati ons:Polyneuropathy in other diseases classified elsewhere ([facility]) Take 1 Cap by mouth at bedtime. 30 Cap 5 05/11/20 21 Active Sertraline HCl 100 MG Oral Tablet (Zoloft)Indications :Major depressive disorder with single episode, in partial remission ([facility]) Take 1 Tab by mouth [...] as of this encounter (statuses as of 07/17/2024) Active Problems Problem Noted Date Diagnosed Date [...] as of this encounter (statuses as of 07/17/2024) Resolved Problems Problem Noted Date Diagnosed Date [...] 1 09/25/2012 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/31/2010 10/08/19 11 rn long term care current use of ant icoagulant therapy [...] as of this encounter (statuses as of 07/17/2024) Immunizations Name Administration Dates Next Due COVID-19 mRNA, LNP-s, No Pre serve, 2-Dose Series (Moderna) 11/03/2020,10/06/2020 COVID-19 mRNA, LNP-s, No Pre serve, 2-Dose Series (Pfizer) 06/08/2021 Covid-19, Mrna, Lnp-s, Pf, B ivalent, 30 Mcg, IM, 12 yrs and above (Pfizer) 05/05/2022 H1N1 2009 Influenza, IM 08/15/2009 Hepatitis B, 20+ yrs 01/16/2014,04/06/2013,03/05 PPD 02/27/2013 Pneumococcal Conjugate Vacci ne, 20-valent ([id number]) 03/05/2022 Pneumococcal Polysaccharide PPV23 (Pneumovax) 03/31/2009 Seasonal [...] Telephone Encounter - Brian Salas DO - 07/17/2024 4:46 PM EST Update appreciated and I trust the manager case management at the hospital to do the right thing for her. * Telephone Encounter - Kristina Silver RN - 07/17/2024 4:30 PM EST Patient asked that I make you aware she is currently admitted to [facility] due to suicidal ideation with a plan. She is requesting to discharge to a local assisted living facility as she does not feel safe returning home, however specific discharge plans have not been made at this time. Thanks, Kristina Silver RN, BSN Float Mold Filler [phone] documented in this encounter Plan of Treatment Upcoming Encounters Date Type Department Care Team (Late st Contact Info) Description 08/02/2024 10:00 AM EST Office Visit Rheumatology [place] [phone] [facility] [place] [address] Rui Tee MD [facility] [address] 08/21/2024 8:30 AM EST Office Visit Cardiology, [facility] [address] [place] [address] Griselda Cody CRNP [address] [place] [address] 11/20/2024 10:00 AM EDT Office Visit Family Practice [facility] [address] [facility] [place] [address] Brian Salas, DO [address] [facility] [place] [address] 03/12/2025 11:20 AM EDT Office Visit Sleep Disorders [facility] [address] [place] [phone] Charlette Brannon, DO [address] [place] [address] 04/11/2025 8:20 AM EDT Office Visit Pulmonary Medicine, [facility] [address] [address] Yo Abreu MD [address] [address] 05/21/2025 9:25 AM EDT Office Visit Urogynecology Josejosselyn Tucker [address] [place] [address] Del Baron MD [address] [place] [address] Nurse Trae Tucker Drake [address] [place] [address] Scheduled Procedures Name Priority Associated Diagnoses Date/Ti [...] Documents on File Type Date Recorded 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
[2024-10-30] MEDS ORDERED: HYDROmorphone INJ 0.5 MG/0.5 ML SYR IV PRN (06:31)
[2024-10-30] MEDS: LACTATED RINGER'S 1,000 ML IV SCH (07:34)
[2024-10-30] MEDS: HYDROmorphone INJ 0.5 MG/0.5 ML SYR IV PRN (07:35)
[2024-10-30] MEDS: FLUTICASONE/VILANTEROL 200/25MCG 14 PUFFS/INHALER INH SCH (07:51)
[2024-10-30] MEDS: hydrALAZINE HCL 25 MG TAB PO SCH (07:52)
[2024-10-30] MEDS: lamoTRIgine 100 MG TAB PO SCH (07:52)
[2024-10-30] MEDS: hydroCHLOROthiazide 25 MG TAB PO SCH (07:53)
[2024-10-30] MEDS: LOSARTAN POTASSIUM 50 MG TAB PO SCH (07:53)
[2024-10-30] MEDS: DULoxetine HCL 30 MG CAP PO SCH (07:53)
[2024-10-30] MEDS: PALIPERIDONE 3 MG TABCR PO SCH (07:54)
[2024-10-30] MEDS: LEVOTHYROXINE SODIUM 200 MCG TABLET PO SCH (07:55)
[2024-10-30] MEDS: SPIRONOLACTONE 25 MG TAB PO SCH (07:55)
[2024-10-30] MEDS: CETIRIZINE HCL 10 MG TABLET PO SCH (07:56)
[2024-10-30] MEDS: SERTRALINE HCL 100 MG TABLET PO SCH (07:56)
[2024-10-30] MEDS: PERPHENAZINE 4 MG TAB PO SCH ×2 (07:56→22:25)
--- NOTE | 2024-10-30 07:56 | Electrocardiogram Report ---
Test Reason : Blood Pressure : */* mmHG Vent. Rate : 80 BPM Atrial Rate : 80 BPM P-R Int : 148 ms QRS Dur : 82 ms QT Int : 412 ms P-R-T Axes : 63 58 75 degrees QTcB Int : 475 ms Normal sinus rhythm Normal ECG When compared with ECG of 17-Jul-2024 14:35, Nonspecific ST and T wave abnormality no longer present Confirmed by Ernst Cleveland ([id number]) on 10/30/2024 7:55:28 AM Referred By: REFERRED SELF Confirmed By: Ernst Cleveland
[2024-10-30] MEDS: SOTALOL HCL 80 MG TAB PO SCH (07:57)
[2024-10-30] MEDS: ROSUVASTATIN CALCIUM 5 MG TAB PO SCH (07:57)
[2024-10-30] MEDS: tiZANidine HCL 4 MG TABLET PO PRN (07:58)
[2024-10-30] MEDS: POTASSIUM CHLORIDE 10 MEQ TABCR PO SCH (08:02)
[2024-10-30] MEDS: busPIRone 5 MG TAB PO SCH (08:03)
[2024-10-30] MEDS: amLODIPine BESYLATE 5 MG TAB PO SCH (08:03)
[2024-10-30] MEDS: ENOXAPARIN INJ 40 MG/0.4 ML SYR SQ SCH (08:03)
[2024-10-30 08:08] LABS: Basophils # (auto) 0.05 K/uL (0.00-0.20); Basophils % (auto) 0.6 %; Eosinophils # (auto) 0.16 K/uL (0.00-0.50); Eosinophils % (auto) 1.8 %; Hematocrit (blood only) 38.2 % (37.0-47.0); Hemoglobin 12.2 g/dl (12.0-16.0); Immature Granulocytes # (auto) 0.02 K/uL (0.01-0.20); Immature Granulocytes % (auto) 0.2 %; Lymphocytes # (auto) 0.92 K/uL (1.20-3.40); Lymphocytes % (auto) 10.3 %; Mean Corpuscular Hemoglobin 29.8 pg (25.0-34.0); Mean Corpuscular Hgb Conc 31.9 g/dL (32.0-36.0); Mean Corpuscular Volume 93.4 fL (80.0-100.0); Mean Platelet Volume 10.6 fL (9.4-12.4); Monocytes # (auto) 0.95 K/uL (0.11-0.59); Monocytes % (auto) 10.6 %; Neutrophils # (auto) 6.84 K/uL (1.40-6.50); Neutrophils % (auto) 76.5 %; Platelet Count 163 K/uL (130-400); RDW Coefficient of Variation 13.8 % (11.5-14.5); RDW Standard Deviation 47.6 fL (36.4-46.3); Red Blood Count 4.09 M/uL (4.20-5.40); White Blood Count 8.94 K/ul (4.8-10.8)
[2024-10-30 08:23] LABS: BUN Creatinine Ratio 31.6 (10-20); Calcium 9.3 mg/dl (8.6-10.3); Creatinine Clr Calc Pharmacy 139.3 ml/min; Potassium 4.6 mmol/L (3.5-5.1)
--- NOTE | 2024-10-30 09:27 | CT Scan Report ---
CT ankle RT wo con HISTORY: 59 years-old Female preop planning, surgery this afternoon. 3D recons preoperative exam COMPARISON: Right ankle radiographs 10/30/2024 TECHNIQUE: Multiple axial CT images of the right ankle were obtained without IV contrast. Additional 3-D rendered images were obtained incidentally for review. A dose lowering technique was used consist ent with the principals zhane OBRIEN. FINDINGS: Cortical thickening noted throughout the ankle. Moderate foot and ankle osteoarthritis. Acute to suba cute appearing ankle fractures are redemonstrated. The distal fibular metadiaphyseal fracture demonst rates 2 cm lateral and 1 cm posterior displacement. There is foreshortening with apex medial angulati on of approximately 37 degrees. Comminuted medial malleolar fracture demonstrates 1.5 cm displacement with apex medial angulation. There is tibiotalar dislocation with apex medial angulation of the tibi otalar joint. Several subcentimeter fracture fragments are noted within the tibiotalar joint space. T he talar dome is smooth. No definite additional acute fracture or dislocation. Prominent subcortical cystic changes of the posterior talus. Tendons and ligaments are suboptimally evaluated by CT technique. Moderate circumferential subcutaneo us edema of the ankle with small ankle joint effusion. Lisfranc articulation appears preserved. IMPRESSION: Fracture dislocation of the ankle as above with numerous subcentimeter intra-articular fr acture fragments. ACT 112: Negative or not required by law. The above report was generated using voice recognition software. It may contain grammatical, syntax o r spelling errors. Electronically signed by: David Banerjee M.D. 10/30/2024 9:25 AM
--- NOTE | 2024-10-30 11:21 | Orthopedic Consultation ---
Date of Consultation October 30, 2024 Assessment & Plan (1) Bimalleolar avulsion fracture of right ankle: Patient with an acute traumatic injury ground-level fall resulting in right ankle fracture. Was brought to the emergency department, x-rays were obtained and she was splinted in an Ortho-Glass splint. Orthopedics was consulted as patient is admitted. Upon examination of the patient she is resting comfortably in no distress. Her Ortho-Glass splint was taken down to evaluate her skin and the injury. She does have a small fracture blister as well as an abrasion over the medial malleolus. Diffusely swollen with ecchymotic changes. Ankle was externally rotated about 30 degrees and there was some lateral angulation at the ankle. X-rays show a bimalleolar fracture with what appears to be slight subluxation of the tibiotalar joint. This was reviewed with Dr. Solano. Gentle realignment was recommended. Verbal consent was obtained to gently align the injury. Patient was agreeable. She was given IV Dilaudid 5 minutes before the procedure. Assistance from associate of science in nursing and RN. Hip and knee was brought into 90 degrees of flexion and gentle traction was applied to the ankle realigning the injury into anatomic position. Sensation and capillary refill intact. A well-padded Ortho-Glass short leg posterior and U stirrup splint was applied by myself. Plan will be to take the patient to the OR this afternoon for open reduction internal fixation versus closed reduction external fixator placement with possible syndesmosis repair with Dr. Solano. She is currently n.p.o. and should be kept n.p.o. Ancef and TXA were ordered for preop. The patient makes her own medical decisions. The risks and benefits of surgery were reviewed in detail with her and she was given opportunity to ask questions which were answered. She signed the consent form which is available on her chart. I ordered EZ wrap to be applied to the ankle which can be used on an as-needed basis. CT ankle will be obtained for planning purposes. Patient will likely require placement following surgery given her living situation. She asked that someone notify her sister that she was in the hospital. I coordinated with nursing staff for this. Supervising Physician Co-Signing Physician Notes I saw and examined the patient, reviewed her imaging findings, formulated the plan, and performed the substantive portion of the visit. In summary, patient is a 59-year-old female with multiple medical comorbidities with a displaced unstable bimalleolar right ankle fracture that has failed 2 closed reduction attempts. Reduction was attempted in the emergency room however CT scan showed the fracture remained displaced. My physician's assistant quality manager attempted to reduce her on the floor and resplinted her however the fracture is still displaced. She has bruising and precarious skin on the medial aspect of her ankle secondary to the deformity. Surgery is indicated on an urgent basis to reduce and stabilize her ankle. I spoke with the patient about the need to likely apply an external fixator given the skin injury to the medial aspect of the ankle. We may be able to fix the lateral malleolus today. However, she is going to need another surgery to remove the external fixator and possibly fix the medial malleolus assuming we apply an external fixator today. She has a difficult home situation as she lives by herself. She is not very mobile as she is morbidly obese and has multiple medical comorbidities. Therefore she is probably going to need to stay in the hospital for a prolonged period of time until arrangements can be made for her to safely discharge from the hospital. She is at high risk for complications because of her multiple medical comorbidities and the severity of this fracture. These include the possibility of an infection and eventual need for amputation of her leg in addition to the other risks of surgery. I reviewed the risks and benefits of surgery with her at length, as well as alternatives and expected outcomes. She elects to proceed with surgery. All questions were answered. Informed consent was signed. History of Present Illness Attending Physician: Cristobal Costa MD History of Present Illness Sofia Melton is a 59 year old female with past medical history significant for hypothyroidism, hyperlipidemia, obstructive sleep apnea, moderate persistent asthma, atrial flutter, pulmonary hypertension, chronic diastolic CHF, hypertension, paroxysmal atrial fibrillation, morbid obesity, irritable bowel syndrome with diarrhea, GERD, Sjogren's syndrome, degenerative disc disease, restless leg syndrome, migraine, antiphospholipid syndrome, depression, mild intellectual disability, schizoaffective disorder bipolar, schizoaffective disorder depressive, history of suicide attempt who presented to the emergency department overnight with a chief complaint of right ankle pain secondary to a fall. She was found to have an ankle fracture on x-ray and was splinted and admitted to the hospital. Patient states that she felt a little lightheaded when getting up to use the bathroom overnight causing the fall. She was unable to get back up and had to call 911 who brought her to the emergency department. Nothing else hurts on her currently. She has no history of injuring the right ankle in the past. Denies any numbness or tingling in her toes. She lives at home alone in an apartment complex and uses a rollator walker for ambulatory assistance. She has a associate of science in nursing 3 times a week. Her sister lives close by but she has not contacted her yet. She is not on blood thinners. Allergies Allergy/AdvReac Type Severity Reaction Status Date / Time adhesive Allergy Intermediate RASH, ITCHY Verified 06/18/22 21:51 Hydantoins Allergy Intermediate Hives Verified 06/18/22 21:51 ethyl alcohol AdvReac Severe Seizure Verified 06/18/22 21:51 thioridazine AdvReac Severe SEIZURES Verified 06/18/22 21:51 phenytoin AdvReac Intermediate Nausea Verified 06/18/22 21:51 Home Medications Medication Instructions Recorded Confirmed Type Breo Ellipta 1 puff inhalation DAILY 10/30/24 10/30/24 History amlodipine 5 mg tablet 5 mg PO DAILY 10/30/24 10/30/24 History buspirone 10 mg tablet 10 mg PO TID 10/30/24 10/30/24 History duloxetine 30 mg capsule,delayed 30 mg PO DAILY 10/30/24 10/30/24 History release gabapentin 300 mg capsule 300 mg PO HS 10/30/24 10/30/24 History hydralazine 25 mg tablet 75 mg PO TID 10/30/24 10/30/24 History hydrochlorothiazide 12.5 mg tablet 12.5 mg PO DAILY 10/30/24 10/30/24 History lamotrigine 200 mg tablet 200 mg PO BID 10/30/24 10/30/24 History (Lamictal) levocetirizine 5 mg tablet 5 mg PO DAILY 10/30/24 10/30/24 History levothyroxine 200 mcg tablet 200 mcg PO DAILY 10/30/24 10/30/24 History losartan 100 mg tablet 100 mg PO DAILY 10/30/24 10/30/24 History mirabegron 50 mg tablet,extended 50 mg PO HS 10/30/24 10/30/24 History release 24 hr mirtazapine 30 mg tablet 30 mg PO HS 10/30/24 10/30/24 History montelukast 10 mg tablet 10 mg PO HS 10/30/24 10/30/24 History paliperidone 9 mg tablet,extended 9 mg PO DAILY 10/30/24 10/30/24 History release 24 hr perphenazine 4 mg tablet 4 mg PO DAILY 10/30/24 10/30/24 History perphenazine 8 mg tablet 8 mg PO HS 10/30/24 10/30/24 History potassium chloride 10 mEq 10 meq PO DAILY 10/30/24 10/30/24 History tablet,extended release rosuvastatin 5 mg tablet 5 mg PO DAILY 10/30/24 10/30/24 History sertraline 100 mg tablet 200 mg PO DAILY 10/30/24 10/30/24 History sotalol 80 mg tablet 40 mg PO BID 10/30/24 10/30/24 History spironolactone 25 mg tablet 25 mg PO DAILY 10/30/24 10/30/24 History tizanidine 4 mg capsule 4 mg PO TID PRN Muscle Spasm 10/30/24 10/30/24 History Patient History Medical History Falls Suicidal ideation Dyspnea Anxiety and depression Admitted to intensive care unit DVT prophylaxis Nausea and vomiting Hypertensive emergency Morbid obesity Bipolar 1 disorder Osteoarthritis Fibromyalgia Spinal stenosis Degenerative disc disease Chronic back pain GERD (gastroesophageal reflux disease) Hypothyroidism Migraine Seizure SEIZURES X 2 (); CONTROLLED ON LAMICTAL Sleep apnea cpap Epilepsy hx of, last one in IBS (irritable bowel syndrome) Surgical History Nausea and vomiting after administration of anesthetic agent History of cataract surgery RT/LEFT History of total abdominal hysterectomy and bilateral salpingo-oophorectomy S/P foot surgery, left X2 History of carpal tunnel release LEFT Status post lumbar spine surgery for decompression of spinal cord + RODS History of colonoscopy History of cholecystectomy History of tooth extraction ALL UPPER TEETH EXTRACTIONS History of tonsillectomy and adenoidectomy History of endoscopic sinus surgery Family History Father Family history of diabetes mellitus Coronary heart disease Mother Lung cancer Sister Alive and well Brother Alive and well Other No family history of adverse response to anesthesia Social History Smoking Status: Never smoker Tobacco Type: Cigarettes Second Hand Exposure: No; Do You Dip or Chew Tobacco: No; Tobacco Cessation Education Requested by Patient: No Hx Alcohol Use: No Hx Substance Use: No Preferred Language: German Communication Ability: Effective Visual Impairment: No Limitations 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: Normal [place] Required: No Beliefs That Will Affect Care: None marital status: Current Living Situation: Alone current occupational status: disabled Other Information That Helps Us Care for You: No Feels Safe at Home: Yes Safety Concerns: Feels Safe At This Time Gender Identity: Female Assistive Devices: Walker Physical Exam Constitutional: Resting comfortably in bed, no distress. Cardiovascular: Right DP pulse 2+ Musculoskeletal: Right lower extremity: Ortho-Glass splint taken down. The ankle is externally rotated about 30 degrees with some lateral angulation at the ankle. There is soft tissue swelling diffusely. There is an abrasion along the medial malleolus. Skin is otherwise closed. Ecchymosis medially and laterally about the ankle and foot. Able to move all toes. Skin: There is a small less than 1 cm blister on the ankle. Neurologic: No sensory deficits in right toes to light touch Results & Data Vital Signs (Past 12 Hours) Vital Signs Temp Pulse Pulse Pulse Resp BP BP 10/30/24 06:44 98.2 F 97 H 18 119/79 10/30/24 06:25 98.2 F 97 H 18 119/79 10/30/24 06:02 88 18 136/76 10/30/24 05:20 83 10/30/24 02:12 85 17 160/115 H 10/30/24 01:04 84 10/30/24 00:46 10/30/24 00:23 98.4 F 90 18 165/105 H Pulse Ox O2 Del Method 10/30/24 06:44 94 Room Air 10/30/24 06:25 94 Room Air 10/30/24 06:02 98 Room Air 10/30/24 05:20 10/30/24 02:12 96 Room Air 10/30/24 01:04 10/30/24 00:46 96 Room Air 10/30/24 00:23 96 Room Air Laboratory Results 10/30/24 10/30/24 10/30/24 07:48 02:21 01:36 WBC 8.94 RBC 4.09 L Hgb 12.2 POC Hgb 12.6 Hct 38.2 POC Hct 37 MCV 93.4 MCH 29.8 MCHC 31.9 L RDW Std Deviation 47.6 H RDW Coeff of Lor 13.8 Plt Count 163 MPV 10.6 Immature Gran % (Auto) 0.2 Neut % (Auto) 76.5 Lymph % (Auto) 10.3 [place] % (Auto) 10.6 Eos % (Auto) 1.8 Baso % (Auto) 0.6 Neut # (Auto) 6.84 H Lymph # (Auto) 0.92 L [place] # (Auto) 0.95 H Eos # (Auto) 0.16 Baso # (Auto) 0.05 Immature Gran # (Auto) 0.02 PT INR APTT PTT Ratio POC Sodium 138 Sodium 138 POC Potassium 4.2 Potassium 4.6 POC Chloride 99 L Chloride 104 Carbon Dioxide 32 POC Total CO2 27 Anion Gap 2 L POC Anion Gap 17.0 POC BUN 24 H BUN 18 Creatinine 0.57 L POC Creatinine 1.0 Est Cr Clr Drug Dosing 139.3 eGFR 103.33 BUN/Creatinine Ratio 31.6 H Glucose 100 H POC Glucose (other) 123 H Calcium 9.3 POC Ioniz Calcium Lupe 1.21 Magnesium 2.0 Total Bilirubin AST ALT Alkaline Phosphatase Total Protein Albumin Globulin Albumin/Globulin Ratio Lipase Urine Color Yellow Urine Appearance Clear Urine pH 6.0 Ur Specific [place] 1.011 Urine Protein Negative Urine Glucose (UA) Negative Urine Ketones Negative Urine Blood Negative Urine Nitrite Negative Urine Bilirubin Negative Urine Urobilinogen Negative Ur Leukocyte Esterase Negative 10/30/24 01:17 WBC 7.04 RBC 4.11 L Hgb 12.4 POC Hgb Hct 38.8 POC Hct MCV 94.4 MCH 30.2 MCHC 32.0 RDW Std Deviation 49.1 H RDW Coeff of Lor 14.0 Plt Count 160 MPV 10.5 Immature Gran % (Auto) 0.4 Neut % (Auto) 72.6 Lymph % (Auto) 12.6 [place] % (Auto) 10.2 Eos % (Auto) 3.3 Baso % (Auto) 0.9 Neut # (Auto) 5.11 Lymph # (Auto) 0.89 L [place] # (Auto) 0.72 H Eos # (Auto) 0.23 Baso # (Auto) 0.06 Immature Gran # (Auto) 0.03 PT 10.1 INR 0.9 APTT 25 PTT Ratio 0.9 POC Sodium Sodium 136 POC Potassium Potassium 4.3 POC Chloride Chloride 101 Carbon Dioxide 31 POC Total CO2 Anion Gap 4 POC Anion Gap POC BUN BUN 24 H Creatinine 0.85 POC Creatinine Est Cr Clr Drug Dosing 94.1 eGFR 77.90 BUN/Creatinine Ratio 28.2 H Glucose 124 H POC Glucose (other) Calcium 9.6 POC Ioniz Calcium Lupe Magnesium Total Bilirubin 0.3 AST 15 ALT 17 Alkaline Phosphatase 95 Total Protein 7.4 Albumin 4.0 Globulin 3.4 Albumin/Globulin Ratio 1.2 Lipase 19 Urine Color Urine Appearance Urine pH Ur Specific [place] Urine Protein Urine Glucose (UA) Urine Ketones Urine Blood Urine Nitrite Urine Bilirubin Urine Urobilinogen Ur Leukocyte Esterase Diagnostic Findings Ankle X-Ray 10/30/24 00:34 EXAM: XR ankle RT min 3V routine CLINICAL HISTORY: fall TECHNIQUE: X-ray images of the right ankle were obtained in anteroposterior (AP), lateral, and mortise projections. COMPARISON: prior X-ray of the right ankle 04/26/2027 FINDINGS: Bone Structure: The previously seen spiral fracture at the distal fibular metaphysis currently showed healing, however with mal-alignment of the united fragments and possible fusion with the distal tibial metaphysis. Another slightly displaced fracture is currently seen at the medial malleolus (new) (of indeterminate age, probably a recent fracture). Bone density is normal. Joint Spaces: Degenerative changes are noted in the form of osteophytic formations. Soft Tissues: Mild edema of the subcutaneous tissues of the leg and ankle regions. IMPRESSION: - Fracutre at the medial malleolus (new). - Healed old fracture at the distal fibular metaphysis, however, with mal-alignment of the united fragments. - Mild degenerative changes. Disclaimer: A subtle bone abnormality or fracture may not be readily apparent on X-rays, thus clinical correlation and further imaging including follow-up CT, MRI, or follow-up X-rays are advised as needed. Electronically signed by Ulices Gutierrez 10-30-2024 01:40 AM Chest X-Ray 10/30/24 00:34 EXAM: XR chest 1V portable CLINICAL HISTORY: Trauma TECHNIQUE: An X-ray image of the chest is obtained in AP projection. COMPARISON: 06/10/2024 FINDINGS: Pulmonary Parenchyma: Lungs are clear bilaterally. No evidence of consolidation, collapse, or focal opacities. No pulmonary nodules are identified. Blunting of left costophrenic angle. Clear right costophrenic angle. Heart and Mediastinum: Heart size and shape are normal. No mediastinal widening or masses. No hilar or mediastinal lymphadenopathy. Bony Thorax: Bony thorax appears intact without fractures or deformities. Soft Tissues: Soft tissues overlying the chest wall are unremarkable. IMPRESSION: 1. Blunting of left costophrenic angle, could represent minimal pleural effusion/thickenning (unchanged). 2. No gross airspace opacities. Electronically signed by Ulices Gutierrez 10-30-2024 01:[address] 10/30/24 07:16 CT ankle RT wo con HISTORY: 59 years-old Female preop planning, surgery this afternoon. 3D recons preoperative exam COMPARISON: Right ankle radiographs 10/30/2024 TECHNIQUE: Multiple axial CT images of the right ankle were obtained without IV contrast. Additional 3-D rendered images were obtained incidentally for review. A dose lowering technique was used consistent with the principals of ALARA. FINDINGS: Cortical thickening noted throughout the ankle. Moderate foot and ankle osteoarthritis. Acute to subacute appearing ankle fractures are redemonstrated. The distal fibular metadiaphyseal fracture demonstrates 2 cm lateral and 1 cm posterior displacement. There is foreshortening with apex medial angulation of approximately 37 degrees. Comminuted medial malleolar fracture demonstrates 1.5 cm displacement with apex medial angulation. There is tibiotalar dislocation with apex medial angulation of the tibiotalar joint. Several subcentimeter fracture fragments are noted within the tibiotalar joint space. The talar dome is smooth. No definite additional acute fracture or dislocation. Prominent subcortical cystic changes of the posterior talus. Tendons and ligaments are suboptimally evaluated by CT technique. Moderate circumferential subcutaneous edema of the ankle with small ankle joint effusion. Lisfranc articulation appears preserved. IMPRESSION: Fracture dislocation of the ankle as above with numerous subcent imeter intra-articular fracture fragments. ACT 112: Negative or not required by law. The above report was generated using voice recognition software. It may contain grammatical, syntax or spelling errors. Electronically signed by: David Banerjee M.D. 10/30/2024 9:25 AM
--- NOTE | 2024-10-30 11:39 | Hospitalist Progress Note ---
Date of Service October 30, 2024 Assessment & Plan (1) Closed right ankle fracture: Plan: 59-year-old female with past medical history significant for hypothyroidism, hyperlipidemia, obstructive sleep apnea, moderate persistent asthma, atrial flutter, pulmonary hypertension, chronic diastolic CHF, hypertension, paroxysmal atrial fibrillation, morbid obesity, irritable bowel syndrome with diarrhea, GERD, Sjogren's syndrome, degenerative disc disease, restless leg syndrome, migraine, iron deficiency anemia due to chronic blood loss, antiphospholipid syndrome, depression, mild intellectual disability, schizoaffective disorder bipolar, schizoaffective disorder depressive, history of suicide attempt who lives at home alone and ambulates with a rollator walker gets help with nursing aides 3 times a week and sister lives close by comes because of fall and found to have right ankle fracture. Patient says she was getting up in bed and she felt slightly dizzy which happens sometimes and fell to the right side. She hit her head but no loss of consciousness. X-rays in the ER showed fracture of the medial malleolus on the right side and status post splint in the ER. Denies any headache. Denies blurred visions. No runny nose or sore throat. No cough. No fevers. Appetite is okay. Denies chest pain. Denies shortness of breath. Denies nausea or vomiting. Denies abdominal pain. Normal bowel and bladder movements. Afebrile. Hemodynamics are okay. Closed right ankle fracture/dislocation Secondary to ground-level fall Plan for right ankle open reduction internal fixation Appreciate orthopedics input Pain control N.p.o. for now for procedure Fall precautions PT OT when appropriate Obstructive sleep apnea BiPAP HS Hypothyroidism Continue levothyroxine Hypertension On amlodipine, hydralazine, hydrochlorothiazide, losartan Monitor blood pressure History of A-fib On sotalol No longer on anticoagulant secondary to bleeding Hyperlipidemia Continue Crestor Depression Schizoaffective disorder History of suicide attempt Continue home medications Chronic diastolic CHF Spironolactone and hydrochlorothiazide Monitor for volume overload Moderate persistent asthma Continue home inhalers Morbid obesity BMI 41.6 Counseling DVT prophylaxis Lovenox SQ CODE STATUS DNI DNR Disposition To be determined Admission and Anticipated Discharge Date Admission Date: October 30, 2024 Subjective Patient is seen and examined at bedside States having right ankle pain Offers no other complaints Denies any chest pain, dyspnea, nausea, vomiting, abdominal pain Review of Systems Review of Systems: All systems reviewed & are unremarkable except as noted in Subjective Physical Exam Physical Exam: Physical Exam: Vitals signs as noted above General Appearance:Morbid Obese, no apparent distress Head: normocephalic, Atraumatic Eyes: normal inspection, EOMI Neck: supple, Trachea midline Respiratory/Chest: Normal breath sounds, CTA, No accessory muscle use Cardiovascular: S1, S2, No murmur Abdomen/GI:Soft, Non tender, Bowel sounds present Extremities/Musculoskeletal:normal inspection, no edema, right lower extremity splint Neurologic/Psych:AAOX3, grossly no focal neurological deficits Skin: normal color, warm Results & Data Results & Data Vital Signs (Past 12 Hours) Vital Signs Temp Pulse Pulse Pulse Resp BP BP 10/30/24 06:44 36.8 C 97 H 18 119/79 10/30/24 06:25 36.8 C 97 H 18 119/79 10/30/24 06:02 88 18 136/76 10/30/24 05:20 83 10/30/24 02:12 85 17 160/115 H 10/30/24 01:04 84 10/30/24 00:46 10/30/24 00:23 36.9 C 90 18 165/105 H Pulse Ox O2 Del Method 10/30/24 06:44 94 Room Air 10/30/24 06:25 94 Room Air 10/30/24 06:02 98 Room Air 10/30/24 05:20 10/30/24 02:12 96 Room Air 10/30/24 01:04 10/30/24 00:46 96 Room Air 10/30/24 00:23 96 Room Air Laboratory Results Short CBC 10/30/24 10/30/24 Range/Units 01:17 07:48 WBC 7.04 8.94 (4.8-10.8) K/ul Hgb 12.4 12.2 (12.0-16.0) g/dl Hct 38.8 38.2 (37.0-47.0) % Plt Count 160 163 (130-400) K/uL BMP 10/30/24 10/30/24 01:17 07:48 Sodium 136 138 Potassium 4.3 4.6 Chloride 101 104 Carbon Dioxide 31 32 BUN 24 H 18 Creatinine 0.85 0.57 L Glucose 124 H 100 H Calcium 9.6 9.3 Liver Function 10/30/24 Range/Units 01:17 Total Bilirubin 0.3 (0.2-1.0) mg/dl AST 15 (13-39) U/L ALT 17 (7-52) U/L Alkaline Phosphatase 95 (34-104) U/L Albumin 4.0 (3.4-5.0) gm/dl Urine 10/30/24 Range/Units 02:21 Urine Color Yellow Urine Appearance Clear (Clear) Urine pH 6.0 (4.5-7.5) Ur Specific [place] 1.011 (1.000-1.030) Urine Protein Negative (Negative) Urine Glucose (UA) Negative (Negative)
[2024-10-30] MEDS: MoRPHine SULFATE 2 MG/ML CARP IV ONE (12:35)
--- NOTE | 2024-10-30 13:03 | XRay Report ---
XR ankle RT min 3V routine HISTORY: 59 years-old Female s/p closed reduction, splint application status post reduction and cast ing of the right ankle fracture COMPARISON: CT of same day, radiographs 10/30/2024 TECHNIQUE: 3 views of the right ankle FINDINGS: Status post reduction and casting of the bimalleolar ankle fracture/dislocation. There is persistent displacement of the distal fibular and medial malleolar fractures with tibiotalar subluxation. No sig nificant change compared to the preoperative radiograph aside from worsening tibiotalar alignment. Mo derate osteoarthritis with moderate soft tissue swelling. IMPRESSION: Status post casting of the ankle fracture/dislocation. There is worsened alignment of the tibiotalar joint compared to the comparison films. ACT 112: Negative or not required by law. The above report was generated using voice recognition software. It may contain grammatical, syntax o r spelling errors. Electronically signed by: David Banerjee M.D. 10/30/2024 1:02 PM
[2024-10-30] MEDS ORDERED: MIDAZOLAM HCL 1 MG/ML 2ML VIAL ONE (13:55)
[2024-10-30] MEDS ORDERED: fentaNYL citrate PF 100 MCG/2 ML VIAL ONE (13:55)
[2024-10-30] MEDS ORDERED: ROPIVACAINE 0.5% 5 MG/ML 30 ML VIAL ONE ×2 (13:58→15:12)
[2024-10-30] MEDS ORDERED: ROCURONIUM BROMIDE 10 MG/ML 5 ML VIAL IV ONE (14:09)
[2024-10-30] MEDS ORDERED: ONDANSETRON INJ 2 MG/ML 2 ML VIAL ONE (14:09)
[2024-10-30] MEDS ORDERED: DEXAMETHASONE SOD INJ 4 MG/ML VIAL ONE (14:09)
[2024-10-30] MEDS ORDERED: LIDOCAINE 2% 2 ML VIAL/AMP(20MG/ML) INFIL ONE (14:09)
[2024-10-30] MEDS ORDERED: PROPOFOL IV EMULSION 10 MG/ML 20 ML VIAL IV ONE (14:09)
[2024-10-30] MEDS ORDERED: ePHEDrine sulfate 50 MG/ML AMP IV PRN (14:39)
[2024-10-30] MEDS ORDERED: ONDANSETRON INJ 2 MG/ML 2 ML VIAL IV PRN (14:39)
[2024-10-30] MEDS ORDERED: fentaNYL citrate PF 100 MCG/2 ML VIAL IV PRN (14:39)
[2024-10-30] MEDS ORDERED: ATROPINE SULFATE 0.1 MG/ML 10ML SYR IV PRN (14:39)
--- NOTE | 2024-10-30 14:40 | Anesthesiology Consultation ---
Date of Service October 30, 2024 Assessment & Plan Chart Review Chart Review: Acceptable Risk for Surgery and Patient NOT seen in Pre Admission Testing Consults Requested none ASA ASA3 Proposed Anesthesia Anesthesia Type: General Regional Laterality: Right Site: Popliteal and Adductor Canal Risk / Benefits Reviewed With: PT / POA / Parent / Guardian, Accepts Plan and Informed Consent Obtained History Surgery Operation Date: 10/30/24 07:50 Proposed Procedures p Right Ankle Open Reduction Internal Fixation - Baldemar Solano MD Height/Weight Height: 5 ft 7 in Weight: 120.5 kg Allergies Allergy/AdvReac Type Severity Reaction Status Date / Time adhesive Allergy Intermediate RASH, ITCHY Verified 06/18/22 21:51 Hydantoins Allergy Intermediate Hives Verified 06/18/22 21:51 ethyl alcohol AdvReac Severe Seizure Verified 06/18/22 21:51 thioridazine AdvReac Severe SEIZURES Verified 06/18/22 21:51 phenytoin AdvReac Intermediate Nausea Verified 06/18/22 21:51 Medications Home Medications Medication Instructions Recorded Confirmed Last Taken Breo Ellipta 1 puff inhalation DAILY 10/30/24 10/30/24 Unknown amlodipine 5 mg tablet 5 mg PO DAILY 10/30/24 10/30/24 Unknown buspirone 10 mg tablet 10 mg PO TID 10/30/24 10/30/24 Unknown duloxetine 30 mg capsule,delayed 30 mg PO DAILY 10/30/24 10/30/24 Unknown release gabapentin 300 mg capsule 300 mg PO HS 10/30/24 10/30/24 Unknown hydralazine 25 mg tablet 75 mg PO TID 10/30/24 10/30/24 Unknown hydrochlorothiazide 12.5 mg tablet 12.5 mg PO DAILY 10/30/24 10/30/24 Unknown lamotrigine 200 mg tablet 200 mg PO BID 10/30/24 10/30/24 Unknown (Lamictal) levocetirizine 5 mg tablet 5 mg PO DAILY 10/30/24 10/30/24 Unknown levothyroxine 200 mcg tablet 200 mcg PO DAILY 10/30/24 10/30/24 Unknown losartan 100 mg tablet 100 mg PO DAILY 10/30/24 10/30/24 Unknown mirabegron 50 mg tablet,extended 50 mg PO HS 10/30/24 10/30/24 Unknown release 24 hr mirtazapine 30 mg tablet 30 mg PO HS 10/30/24 10/30/24 Unknown montelukast 10 mg tablet 10 mg PO HS 10/30/24 10/30/24 Unknown paliperidone 9 mg tablet,extended 9 mg PO DAILY 10/30/24 10/30/24 Unknown release 24 hr perphenazine 4 mg tablet 4 mg PO DAILY 10/30/24 10/30/24 Unknown perphenazine 8 mg tablet 8 mg PO HS 10/30/24 10/30/24 Unknown potassium chloride 10 mEq 10 meq PO DAILY 10/30/24 10/30/24 Unknown tablet,extended release rosuvastatin 5 mg tablet 5 mg PO DAILY 10/30/24 10/30/24 Unknown sertraline 100 mg tablet 200 mg PO DAILY 10/30/24 10/30/24 Unknown sotalol 80 mg tablet 40 mg PO BID 10/30/24 10/30/24 Unknown spironolactone 25 mg tablet 25 mg PO DAILY 10/30/24 10/30/24 Unknown tizanidine 4 mg capsule 4 mg PO TID PRN Muscle Spasm 10/30/24 10/30/24 Unknown Active Medications Generic Name Dose Route Start Last Admin Trade Name Freq PRN Reason Stop Dose Admin Amlodipine Besylate 5 mg 10/30/24 09:00 10/30/24 08:03 Amlodipine Besylate 5 Mg Tab PO 11/29/24 08:59 5 mg DAILY RAVI Administration Buspirone HCl 10 mg 10/30/24 09:00 10/30/24 12:37 Buspirone 5 Mg Tab PO 11/29/24 08:59 10 mg TID RAVI Administration Cetirizine HCl 10 mg 10/30/24 09:00 10/30/24 07:56 Cetirizine Hcl 10 Mg Tablet PO 11/29/24 08:59 10 mg DAILY RAVI Administration Duloxetine HCl 30 mg 10/30/24 09:00 10/30/24 07:53 Duloxetine Hcl 30 Mg Cap PO 11/29/24 08:59 30 mg DAILY RAVI Administration Enoxaparin Sodium 40 mg 10/30/24 07:00 10/30/24 08:03 Enoxaparin Inj 40 Mg/0.4 Ml Syr SQ 11/29/24 06:59 40 mg Q12H RAVI Administration Fluticasone/Vilanterol 1 puffs 10/30/24 09:00 10/30/24 07:51 Fluticasone/Vilanterol 200/25mcg 14 Puffs/Inhaler INH 11/29/24 08:59 1 puffs DAILY RAVI Administration Hydralazine HCl 75 mg 10/30/24 09:00 10/30/24 12:37 Hydralazine Hcl 25 Mg Tab PO 11/29/24 08:59 75 mg TID RAVI Administration Hydrochlorothiazide 12.5 mg 10/30/24 09:00 10/30/24 07:53 Hydrochlorothiazide 25 Mg Tab PO 11/29/24 08:59 12.5 mg DAILY RAVI Administration Hydromorphone HCl 0.5 mg 10/30/24 06:31 10/30/24 10:09 Hydromorphone Inj 0.5 Mg/0.5 Ml Syr IV 11/13/24 06:30 0.5 mg Q4H PRN Administration Severe Pain (Scale 7, 8, 9,10) Lactated Ringer's 1,000 mls @ 80 mls/hr 10/30/24 06:31 10/30/24 09:43 Lr IV 10/31/24 06:30 80 mls/hr .[id number] RAVI Infusion Lamotrigine 200 mg 10/30/24 09:00 10/30/24 07:52 Lamotrigine 100 Mg Tab PO 11/29/24 08:59 200 mg BID RAVI Administration Protocol Levothyroxine Sodium 200 mcg 10/30/24 07:00 10/30/24 07:55 Levothyroxine Sodium 200 Mcg Tablet PO 11/29/24 06:59 200 mcg DAILYBB RAVI Administration Losartan Potassium 100 mg 10/30/24 09:00 10/30/24 07:53 Losartan Potassium 50 Mg Tab PO 11/29/24 08:59 100 mg DAILY RAVI Administration Paliperidone 9 mg 10/30/24 09:00 10/30/24 07:54 Paliperidone 3 Mg Tabcr PO 11/29/24 08:59 9 mg DAILY RAVI Administration Perphenazine 4 mg 10/30/24 09:00 10/30/24 07:56 Perphenazine 4 Mg Tab PO 11/29/24 08:59 4 mg DAILY RAVI Administration Potassium Chloride 10 meq 10/30/24 09:00 10/30/24 08:02 Potassium Chloride 10 Meq Tabcr PO 11/29/24 08:59 10 meq DAILY RAVI Administration Rosuvastatin Calcium 5 mg 10/30/24 09:00 10/30/24 07:57 Rosuvastatin Calcium 5 Mg Tab PO 11/29/24 08:59 5 mg DAILY RAVI Administration Sertraline HCl 200 mg 10/30/24 09:00 10/30/24 07:56 Sertraline Hcl 100 Mg Tablet PO 11/29/24 08:59 200 mg DAILY RAVI Administration Sotalol HCl 40 mg 10/30/24 09:00 10/30/24 07:57 Sotalol Hcl 80 Mg Tab PO 11/29/24 08:59 40 mg BID RAVI Administration Spironolactone 25 mg 10/30/24 09:00 10/30/24 07:55 Spironolactone 25 Mg Tab PO 11/29/24 08:59 25 mg DAILY RAVI Administration Tizanidine HCl 4 mg 10/30/24 06:31 10/30/24 07:58 Tizanidine Hcl 4 Mg Tablet PO 11/29/24 06:30 4 mg TID PRN Administration Muscle Spasm NPO Date Last Intake of Fluids: 10/29/24 Time Last Intake of Fluids: 23:00 Date Last Intake of Solids: 10/29/24 Time Last Intake of Solids: 23:00 Past Medical History Medical History Falls Suicidal ideation Dyspnea Anxiety and depression Admitted to intensive care unit DVT prophylaxis Nausea and vomiting Hypertensive emergency Morbid obesity Bipolar 1 disorder Osteoarthritis Fibromyalgia Spinal stenosis Degenerative disc disease Chronic back pain GERD (gastroesophageal reflux disease) Hypothyroidism Migraine Seizure SEIZURES X 2 (); CONTROLLED ON LAMICTAL Sleep apnea cpap Epilepsy hx of, last one in IBS (irritable bowel syndrome) Exercise / Class Metabolic Activity II 4-5 Yardwork/Stairs/Walk up hill Past Family History Family History Father Family history of diabetes mellitus Coronary heart disease Mother Lung cancer Sister Alive and well Brother Alive and well Other No family history of adverse response to anesthesia Past Surgical History Surgical History Nausea and vomiting after administration of anesthetic agent History of cataract surgery RT/LEFT History of total abdominal hysterectomy and bilateral salpingo-oophorectomy S/P foot surgery, left X2 History of carpal tunnel release LEFT Status post lumbar spine surgery for decompression of spinal cord + RODS History of colonoscopy History of cholecystectomy History of tooth extraction ALL UPPER TEETH EXTRACTIONS History of tonsillectomy and adenoidectomy History of endoscopic sinus surgery Past Anesthesia History No Hx of Anesthesia Complications and No Family Hx of Anesthesia Complications History of PONV No Hx of PONV and No Hx of Motion Sickness Social History Smoking Status: Never smoker tobacco type: cigarettes Do You Dip or Chew Tobacco: No Hx Alcohol Use: No Hx Substance Use: No substance use type: does not use Review of Systems ROS Unobtainable: All systems reviewed & are unremarkable except as noted in HPI & below Physical Exam Vital Signs Last Vital Signs Temp 36.2 C L 10/30/24 13:16 Pulse 87 10/30/24 13:16 Resp 20 10/30/24 13:16 BP 133/66 10/30/24 13:16 Pulse Ox 93 10/30/24 13:16 O2 Del Method Room Air 10/30/24 13:16 ENMT Mouth: no TMJ abnormality Thyromental Distance: > or= 3.5 Finger Breadths Mallampati Class: II Neck normal visual inspection and trachea midline; neck extension not limited Respiratory normal respiratory effort Auscultation: lungs clear to auscultation bilaterally Cardiovascular Rate/Rhythm: regular rate and regular rhythm Heart Sounds: no murmur Musculoskeletal Spine: normal cervical ROM Extremities: full ROM of extremities Neurologic moves all extremities Psychiatric Orientation: alert and oriented x 3 Testing Laboratory Results 10/30/24 07:48 10/30/24 07:48 PT 10.1 Seconds (9.0-12.0) 10/30/24 01:17 INR 0.9 (0.9-1.1) 10/30/24 01:17 APTT 25 Seconds (21-31) 10/30/24 01:17 Urine Color Yellow 10/30/24 02:21 Urine Appearance Clear (Clear) 10/30/24 02:21 Urine pH 6.0 (4.5-7.5) 10/30/24 02:21 Ur Specific [place] 1.011 (1.000-1.030) 10/30/24 02:21 Urine Protein Negative (Negative) 10/30/24 02:21 Urine Glucose (UA) Negative (Negative) 10/30/24 02:21 Urine Ketones Negative (Negative) 10/30/24 02:21 Urine Nitrite Negative (Negative) 10/30/24 02:21 Ur Leukocyte Esterase Negative (Negative) 10/30/24 02:21 Electrocardiogram Date: 10/30/24 Findings: + NSR @ Echocardiogram Date: 02/03/22 EF: 63 LV Function: normal Valvular Disease: + no significant valvular disease
[2024-10-30] MEDS: TRANEXAMIC ACID / 0.7% NACL 1,000 MG/100 ML BAG IV ONE (14:54)
[2024-10-30] MEDS: TRANEXAMIC ACID / 0.7% NACL 1000MG/100ML BAG IV ONE (15:03)
[2024-10-30] MEDS: ceFAZolin 3000MG 3,000 MG/72.5 ML BAG IV SCH (15:50)
[2024-10-30] MEDS ORDERED: PHENYLEPHRINE HCL 10 MG/ML VIAL ONE (16:23)
[2024-10-30] MEDS ORDERED: ePHEDrine sulfate 50 MG/5 ML SYR ONE (16:23)
[2024-10-30] MEDS ORDERED: SUGAMMADEX SODIUM 200 MG/2 ML VIAL IV ONE (16:32)
[2024-10-30] MEDS ORDERED: ALBUTEROL HFA 8 GM INHALER INH ONE (16:39)
--- NOTE | 2024-10-30 17:13 | Operative Report ---
Post Operative Report Pre & Post Diagnosis Operation Date: 10/30/24 07:50 Pre-Op Diagnosis: Right Ankle Fracture Post-Op Diagnosis: Right Ankle Fracture I identified the patient and participated in the time-out.: Yes Procedure Operation Date: 10/30/24 07:50 Actual Procedures p Closed Reduction, External Fixator Placement of Bimalleolar Ankle Fracture(Right) - Baldemar Solano MD Surgeon Baldemar Solano MD [employer] Specialist Raghavendra Falcon and Sravan Arriaza PA-C no resident or fellow was available Estimated Blood Loss 5 Findings Consistent with Post-Op Diagnosis Specimens None Indications 59-year-old female with past medical history significant for hypothyroidism, hyperlipidemia, obstructive sleep apnea, moderate persistent asthma, atrial flutter, pulmonary hypertension, chronic diastolic CHF, hypertension, paroxysmal atrial fibrillation, morbid obesity, irritable bowel syndrome with diarrhea, GERD, Sjogren's syndrome, degenerative disc disease, restless leg syndrome, migraine, iron deficiency anemia due to chronic blood loss, antiphospholipid syndrome, depression, mild intellectual disability, schizoaffective disorder bipolar, schizoaffective disorder depressive, history of suicide attempt who lives at home alone and ambulates with a rollator walker gets help with nursing aides 3 times a week. Yesterday, she was getting up in bed and she felt slightly dizzy which happens sometimes and fell to the right side. She hit her head but no loss of consciousness. She was brought to the emergency room where x-rays demonstrated a displaced bimalleolar ankle fracture. Further review of her chart revealed that she had actually fractured this ankle back in 2017 which was treated nonoperatively. Patient was reduced and then sent for a CT scan. CT scan demonstrated that the fracture remained displaced and there was heterotopic ossification in the syndesmosis likely from her prior ankle fracture. We attempted another closed reduction on the floor after reviewing the CT scan results. Postreduction films unfortunately showed that the fracture remained displaced. Additionally she was noted to have fracture blisters developing on the medial aspect of her ankle secondary to the deformity. Surgery is indicated to urgently reduce her fracture and stabilize it. I had a long discussion with the patient about her diagnosis and treatment options. She understood that an external fixator was going to likely be necessary given the failure of closed reduction as well as the skin issues secondary to her fracture blisters. She also understands that this means she will need a secondary surgery to remove the external fixator and likely undergo open reduction internal fixation. After rev iewing all the risks and benefits of surgery, alternatives, and expected outcomes she elected to proceed. All questions were answered. Informed consent was signed. Description of Procedure Patient was identified in the preoperative holding area where her surgical site was marked. She was given a popliteal block by anesthesia then brought back to the operating room where she was carefully moved onto the operating room table and general anesthesia was administered. She was carefully moved in the sloppy lateral position so her patella was pointing towards the ceiling. Beanbag was deflated and all bony prominences were padded. Perioperative antibiotics and 1 g of IV tranexamic acid were administered. She was prepped and draped in the usual sterile fashion. Prior to incision a multidisciplinary timeout was called. All in the room were in agreement. We began by bringing in fluoroscopy up by the proximal tibia. We marked out an area approximately 3 fingerbreadths below the tibial tubercle and held up the parallel pin guide next to the skin. Eduardo was made on the skin midway between the anterior medial tibial crest. 1 cm stab incisions were made and a hemostat was used to dissect down onto the anterior medial aspect of the tibia. The parallel pin guide was then inserted through the skin incisions. These had to be slightly enlarged in order to facilitate placement of the parallel pin guide. I used the guide to feel the anterior and medial aspects of the tibia and then centered the guide between these. It was difficult to palpate these through the skin as the patient has a BMI of 41 and a thick subcutaneous envelope. The self drilling 5 mm pins were then placed through the parallel guide. We checked on fluoroscopy to ensure that we had bicortical fixation on an orthogonal view which was confirmed. Next, we went down to the ankle and took a lateral fluoroscopic image of the ankle. Starting point was marked with fluoroscopy on the skin in the center of the calcaneal tuberosity posterior and distal to the neurovascular bundle. A 1 cm stab incision was made at this location and hemostat was used to dissect down onto the bone. The calcaneal 6 mm pin was then drilled from medial to lateral. The skin that was tented on the lateral side was incised with a knife to allow the pin to pass all the way through. I centered the threads on the calcaneus on the AP view. Next, the outrigger device was assembled to the parallel pins on the tibia and tightened down. Bar to bar clamps were attached to the outrigger device proximally and pin to bar clamps were placed distally and loosely tightened. I then reduced the ankle under fluoroscopy AP and lateral views and then tightened down the pin to bar and bar to bar clamps. Final fluoroscopic images were obtained which confirmed the appropriate position of the external fixator pins and an anatomic reduction of the ankle which I was happy with. Patient's foot did want to sit in slight plantarflexion. Therefore I elected to place a posterior plaster slab splint at the conclusion of the surgery. At this point, I placed a single vertical mattress suture around the proximal pins in order to close the incision down slightly. Dressings were placed around the pin sites including Xeroform, 4 x 4's, and a Kerlix wrap. I then made a posterior plaster slab splint with approximately 6 layers of cotton roll and 10 rolls of plaster and placed this over the posterior aspect of her lower leg. This was secured with an Max wrap taking care to leave a window over the medial aspect of the ankle where she has the fracture blisters. The ankle was then held in neutral dorsiflexion into the plastered completely dried. Patient was then awoke from anesthesia and transferred to the cover room in stable condition. Postoperative course: Patient will be admitted to the hospitalist service from the recovery room. She will be nonweightbearing On the right lower extremity. Her right leg should be elevated on pillows with no undue pressure on the heel. Activity can be transfer bed to chair with max assistance, assuming she can maintain nonweightbearing on the right lower extremity. Recommend Lovenox for DVT prophylaxis. Will recommend transfer to a tertiary level care facility for definitive management of her ankle fracture. She has a difficult social situation so case management will need to be involved. I attest to the content of the Intraoperative Record and any orders documented therein. Any exceptions are noted below.
--- NOTE | 2024-10-30 17:30 | Operative Report ---
Post Operative Report Pre & Post Diagnosis Operation Date: 10/30/24 07:50 Pre-Op Diagnosis: Right Ankle Fracture Post-Op Diagnosis: Right Ankle Fracture I identified the patient and participated in the time-out.: Yes Procedure Operation Date: 10/30/24 07:50 Actual Procedures p Closed Reduction, External Fixator Placement of Bimalleolar Ankle Fracture(Right) - Baldemar Solano MD Surgeon Baldemar Solano MD Delivery Of Shopping News Raghavendra Falcon and Sravan Arriaza PA-C no resident or fellow was available Estimated Blood Loss 5 Findings Consistent with Post-Op Diagnosis Specimens None Description of Procedure I was present for the second half of the case. I assisted with suctioning, dressing application, and splint application. Please refer to Dr. Solano's procedure not for full details. I attest to the content of the Intraoperative Record and any orders documented therein. Any exceptions are noted below.
--- NOTE | 2024-10-30 17:39 | Anesthesiology Progress Note ---
Date of Service October 30, 2024 Anesthesia Post Procedure Vital Signs Vital Signs: Temp Pulse Pulse Pulse Resp BP BP 10/30/24 17:30 36.5 C 94 H 18 125/76 10/30/24 17:20 91 H 18 129/77 10/30/24 17:10 94 H 18 152/79 H 10/30/24 17:04 36.2 C L 93 H 12 135/90 10/30/24 13:16 36.2 C L 87 20 10/30/24 06:44 36.8 C 97 H 18 10/30/24 06:25 36.8 C 97 H 18 10/30/24 06:02 88 18 136/76 10/30/24 05:20 83 10/30/24 02:12 85 17 10/30/24 01:04 84 10/30/24 00:46 10/30/24 00:23 36.9 C 90 18 165/105 H BP Pulse Ox O2 Del Method O2 Flow Rate 10/30/24 17:30 95 Nasal Cannula 2 10/30/24 17:20 98 Room Air 10/30/24 17:10 100 Oxymask 3 10/30/24 17:04 94 Oxymask 6 10/30/24 13:16 133/66 93 Room Air 10/30/24 06:44 119/79 94 Room Air 10/30/24 06:25 119/79 94 Room Air 10/30/24 06:02 98 Room Air 10/30/24 05:20 10/30/24 02:12 160/115 H 96 Room Air 10/30/24 01:04 10/30/24 00:46 96 Room Air 10/30/24 00:23 96 Room Air Pain Intensity Right Ankle: Pain Intensity: 3 Transfer of Care Handoff Completed per policy Notes Mental Status: alert / awake / arousable Patient Amnestic to Procedure: Yes Nausea / Vomiting: adequately controlled Pain: adequately controlled Airway Patency, RR, SpO2: stable & adequate BP & HR: stable & adequate Hydration State: stable & adequate Anesthetic Complications: no major complications apparent and Pt Satisfied with anesthetic care
--- NOTE | 2024-10-30 18:11 | XRay Report ---
Study: Right ankle, 3 views, right tib-fib, 2 views History: Fracture Comparison: Same-day radiograph Findings/ Impression: Redemonstrated fracture of the medial malleolus. There is diffuse lower extremity subcutaneous edema. External fixation hardware has been placed overlying the posterior ankle, as well as the anterior aspect of the lower leg. Redemonstrated is an old, healed and incompletely united distal fibular metaphyseal fracture. Electronically signed by Jamar Molina 10-30-2024 6:10 PM
[2024-10-30] MEDS ORDERED: bisacodyL 10 MG SUPP PR PRN (18:15)
[2024-10-30] MEDS ORDERED: NALOXONE HCL 0.4 MG/1 ML VIAL/CARP IV PRN (18:15)
[2024-10-30] MEDS: MIRTAZAPINE TAB 15 MG TAB PO SCH (22:22)
[2024-10-30] MEDS: GABAPENTIN 300 MG CAP PO SCH (22:24)
[2024-10-30] MEDS: MONTELUKAST SODIUM 10 MG TABLET PO SCH (22:24)
[2024-10-30] MEDS: VIBEGRON 75 MG TAB PO SCH (22:25)
[2024-10-31] MEDS: ceFAZolin 2000MG 2,000 MG/15 ML SYR IV SCH (00:16)
[2024-10-31] MEDS: ACETAMINOPHEN 325 MG TAB PO PRN (03:21)
[2024-10-31 07:35] LABS: Hemoglobin 10.7 g/dl (12.0-16.0); Mean Corpuscular Hemoglobin 29.6 pg (25.0-34.0); Mean Corpuscular Hgb Conc 31.5 g/dL (32.0-36.0); Mean Corpuscular Volume 94.2 fL (80.0-100.0); Mean Platelet Volume 10.9 fL (9.4-12.4); Platelet Count 162 K/uL (130-400); RDW Coefficient of Variation 13.6 % (11.5-14.5); RDW Standard Deviation 46.7 fL (36.4-46.3); Red Blood Count 3.61 M/uL (4.20-5.40)
[2024-10-31 07:53] LABS: BUN Creatinine Ratio 27.7 (10-20); Calcium 9.1 mg/dl (8.6-10.3); Creatinine Clr Calc Pharmacy 122.2 ml/min; Magnesium 1.8 mg/dl (1.7-2.4); Potassium 4.4 mmol/L (3.5-5.1)
--- NOTE | 2024-10-31 08:01 | Fluoroscopy Report ---
FL ankle RT min 3V RTN CLINICAL HISTORY: RIGHT ANKLE ORIF COMPARISON STUDY: Ankle radiographs 10/30/2024 FLUOROSCOPY TIME: 25 seconds FLUOROSCOPY IMAGES: 5 EXPOSURE DOSE: 0.9338 mGy FINDINGS: Ankle fractures redemonstrated with improved alignment. External hardware projects over the proximal tibia and foot. IMPRESSION: Fluoroscopic assistance as above. ACT 112: Negative or not required by law. Electronically signed by: David Banerjee M.D. 10/31/2024 7:59 AM
[2024-10-31] MEDS: MULTIVITAMIN TAB PO SCH (08:35)
--- NOTE | 2024-10-31 09:16 | Orthopedic Progress Note ---
Date of Service October 31, 2024 Assessment & Plan (1) Closed right ankle fracture: Plan: Postop day 1-status post closed reduction right ankle with external fixator with by Dr. Solano Continue nonweightbearing right lower extremity at all times. Out of bed with walker assistance. Encourage strict elevation on at least 3 pillows when in bed. Encouraged importance of elevating her heel off of the bed at all times. Ice to right ankle as needed for pain and swelling. Will continue to follow and evaluate her skin. Dr. Solano discussed her ankle fracture with the trauma service and her she and they are willing to manage this once the soft tissue envelope has improved and ready for an open reduction internal fixation. It will be a while until she is ready for definitive surgery. We will continue to leave her in house on the medical service and transfer her to the medical service when timing is right which may be early next week, possibly Tuesday or Tuesday. Dr. Solano will continue to monitor her skin and communicate when that timing may be right. In the meantime pain medication as needed. Okay with scheduled Tylenol and possibly tramadol or oxycodone as oral pain medication. Patient was informed of upcoming plan. She is concerned about going to [facility] but is agreeable today. Explained to her that we would manage the transfer situation and this would not be done most likely at the earliest early next week. Left dressings in place today and will re-eval again on Tuesday or Tuesday. She understands and agrees with the plan. Will continue to follow. Admission and Anticipated Discharge Date Admission Date: October 30, 2024 Subjective Patient is sitting up. States that she is doing. She has been her right ankle. Her ankle is a on pillows. Denies any numbness or tingling. Physical Exam Musculoskeletal: Exam of her right lower extremity: The external fixator is in place. Her leg is elevated on 3 pillows. Her heel is off the bed. She is able to actively wiggle her toes without discomfort. Dorsalis pedis pulses 1+. Capillary refill is brisk. Sensation is normal throughout the dorsum of her foot. She has a lot of ecchymosis noted in the anterior aspect of her leg with some small fracture blisters from the medial to the anterior side of her ankle. Blisters are filled with red tinted fluid. Results & Data Vital Signs (Past 12 Hours) Vital Signs Temp Pulse Resp BP Pulse Ox O2 Del Method O2 Flow Rate 10/31/24 07:12 37.0 C 94 H 18 120/69 98 Nasal Cannula 2 10/31/24 04:20 37.3 C 10/31/24 02:54 37.6 C H 103 H 18 107/64 96 Nasal Cannula 2 10/30/24 23:10 36.9 C 101 H 18 108/69 96 Nasal Cannula 2 10/30/24 22:21 101 H 101/63 10/30/24 22:00 Nasal Cannula 2 10/30/24 21:55 94 H 100/62 96 Nasal Cannula 2 10/30/24 21:15 37.0 C 95 H 18 92/57 L 96 Nasal Cannula 2 Laboratory Results 10/31/24 Range/Units 06:59 WBC 9.30 (4.8-10.8) K/ul RBC 3.61 L (4.20-5.40) M/uL Hgb 10.7 L (12.0-16.0) g/dl Hct 34.0 L (37.0-47.0) % MCV 94.2 (80.0-100.0) fL MCH 29.6 (25.0-34.0) pg MCHC 31.5 L (32.0-36.0) g/dL RDW Std Deviation 46.7 H (36.4-46.3) fL RDW Coeff of Lor 13.6 (11.5-14.5) % Plt Count 162 (130-400) K/uL MPV 10.9 (9.4-12.4) fL Sodium 134 L (136-145) mmol/L Potassium 4.4 (3.5-5.1) mmol/L Chloride 98 (98-107) mmol/L Carbon Dioxide 34 H (21-32) mmol/L Anion Gap 2 L (3-11) BUN 18 (6-23) mg/dl Creatinine 0.65 (0.6-1.2) mg/dl Est Cr Clr Drug Dosing 122.2 ml/min eGFR 100.11 BUN/Creatinine Ratio 27.7 H (10-20) Glucose 107 H (70-99(Fasting)) mg/dl Calcium 9.1 (8.6-10.3) mg/dl Magnesium 1.8 (1.7-2.4) mg/dl
[2024-10-31] MEDS: oxyCODONE HCL IR 5 MG TAB (IMMEDIATE RELEASE) PO PRN (09:47)
--- NOTE | 2024-10-31 16:38 | Hospitalist Progress Note ---
Date of Service October 31, 2024 Assessment & Plan (1) Closed right ankle fracture: Plan: 59-year-old female with past medical history significant for hypothyroidism, hyperlipidemia, obstructive sleep apnea, moderate persistent asthma, atrial flutter, pulmonary hypertension, chronic diastolic CHF, hypertension, paroxysmal atrial fibrillation, morbid obesity, irritable bowel syndrome with diarrhea, GERD, Sjogren's syndrome, degenerative disc disease, restless leg syndrome, migraine, iron deficiency anemia due to chronic blood loss, antiphospholipid syndrome, depression, mild intellectual disability, schizoaffective disorder bipolar, schizoaffective disorder depressive, history of suicide attempt who lives at home alone and ambulates with a rollator walker gets help with nursing aides 3 times a week and sister lives close by comes because of fall and found to have right ankle fracture. Patient says she was getting up in bed and she felt slightly dizzy which happens sometimes and fell to the right side. She hit her head but no loss of consciousness. X-rays in the ER showed fracture of the medial malleolus on the right side and status post splint in the ER. Denies any headache. Denies blurred visions. No runny nose or sore throat. No cough. No fevers. Appetite is okay. Denies chest pain. Denies shortness of breath. Denies nausea or vomiting. Denies abdominal pain. Normal bowel and bladder movements. Afebrile. Hemodynamics are okay. Closed right ankle fracture/dislocation Secondary to ground-level fall --S/P Closed Reduction, External Fixator Placement of Bimalleolar Ankle Fracture by on 10/30/24 Appreciate orthopedics input Pain control Bowel regimen to prevent constipation Fall precautions Continue nonweightbearing right lower extremity, Out of bed with walker assistance Patient will require open reduction, internal fixation at tertiary care facility likely next week when appropriate for surgery Obstructive sleep apnea BiPAP HS Hypothyroidism Continue levothyroxine Hypertension On amlodipine, hydralazine, hydrochlorothiazide, losartan Monitor blood pressure History of A-fib On sotalol No longer on anticoagulant secondary to bleeding Hyperlipidemia Continue Crestor Depression Schizoaffective disorder History of suicide attempt Continue home medications Chronic diastolic CHF Spironolactone and hydrochlorothiazide Monitor for volume overload Moderate persistent asthma Continue home inhalers Morbid obesity BMI 41.6 Counseling DVT prophylaxis Lovenox SQ CODE STATUS DNI DNR Disposition To be determined Admission and Anticipated Discharge Date Admission Date: October 30, 2024 Subjective Patient is seen and examined at bedside Continues to complain of right ankle pain postsurgically No other complaints Denies any chest pain, dyspnea, nausea, vomiting, abdominal pain Review of Systems Review of Systems: All systems reviewed & are unremarkable except as noted in Subjective Physical Exam Physical Exam: Physical Exam: Vitals signs as noted above General Appearance:Morbid Obese, no apparent distress Head: normocephalic, Atraumatic Eyes: normal inspection, EOMI Neck: supple, Trachea midline Respiratory/Chest: Normal breath sounds, CTA, No accessory muscle use Cardiovascular: S1, S2, No murmur Abdomen/GI:Soft, Non tender, Bowel sounds present Extremities/Musculoskeletal:normal inspection, no edema, right lower external fixator in place Neurologic/Psych:AAOX3, grossly no focal neurological deficits Skin: normal color, warm Results & Data Results & Data Vital Signs (Past 12 Hours) Vital Signs Temp Pulse Resp BP Pulse Ox O2 Del Method O2 Flow Rate 10/31/24 14:30 36.6 C 79 18 104/62 92 Room Air 10/31/24 08:15 Room Air, CPAP 10/31/24 07:12 37.0 C 94 H 18 120/69 98 Nasal Cannula 2 Laboratory Results Short CBC 10/31/24 Range/Units 06:59 WBC 9.30 (4.8-10.8) K/ul Hgb 10.7 L (12.0-16.0) g/dl Hct 34.0 L (37.0-47.0) % Plt Count 162 (130-400) K/uL BMP 10/31/24 06:59 Sodium 134 L Potassium 4.4 Chloride 98 Carbon Dioxide 34 H BUN 18 Creatinine 0.65 Glucose 107 H Calcium 9.1
[2024-11-01 08:09] LABS: Hematocrit (blood only) 33.2 % (37.0-47.0); Hemoglobin 10.9 g/dl (12.0-16.0); Mean Corpuscular Hemoglobin 30.6 pg (25.0-34.0); Mean Corpuscular Hgb Conc 32.8 g/dL (32.0-36.0); Mean Corpuscular Volume 93.3 fL (80.0-100.0); Mean Platelet Volume 10.7 fL (9.4-12.4); Platelet Count 152 K/uL (130-400); RDW Coefficient of Variation 13.3 % (11.5-14.5); RDW Standard Deviation 46.3 fL (36.4-46.3); Red Blood Count 3.56 M/uL (4.20-5.40); White Blood Count 7.89 K/ul (4.8-10.8)
[2024-11-01 08:31] LABS: BUN Creatinine Ratio 20.7 (10-20); Calcium 9.4 mg/dl (8.6-10.3); Creatinine Clr Calc Pharmacy 136.9 ml/min; Magnesium 1.6 mg/dl (1.7-2.4); Potassium 3.7 mmol/L (3.5-5.1)
[2024-11-01] MEDS: MAGNESIUM SULFATE / D5W 1 GM/100 ML BAG IV ONE (10:12)
[2024-11-01] MEDS: POLYETHYLENE (MIRALAX) 17 GM PACK PO PRN (10:22)
--- NOTE | 2024-11-01 12:54 | Orthopedic Progress Note ---
Date of Service November 01, 2024 Assessment & Plan (1) Closed right ankle fracture: Plan: Postop day 2-status post closed reduction right ankle with external fixator with by Dr. Solano Continue nonweightbearing right lower extremity at all times. May transfer from bed to chair if tolerated with max assist. Encourage strict elevation on at least 3 pillows when in bed. Encouraged importance of elevating her heel off of the bed at all times. Ice to right ankle as needed for pain and swelling. Leave the pin dressings in place Care plan will be discussed with Dr. Solano. I spoke with Dr. Haynes, foot and ankle surgeon with [facility], earlier today about Ms. Melton. I showed him the patient's x-rays, CT scan, and fluoroscopic imaging. He said he would be willing to do her definitive surgery when her soft tissue envelope is ready, likely sometime in the next 1 to 2 weeks. I asked the patient if her preference would be to stay here and have Dr. Haynes do her surgery or if she would rather transfer to [place] as well as our original plan. The patient expressed a strong preference to stay in [place] closer to her family. Dr. Haynes said he would be able to see the patient sometime in the next day or so. Defer any additional treatment recommendations to Dr. Haynes and appreciate his help with this patient. Admission and Anticipated Discharge Date Admission Date: October 30, 2024 Subjective This 59-year-old female is seen today in her room. She is 2 days status post external fixation of her right lower leg/ankle. The patient states her leg is sore. She denies any severe pain. She has no other complaints at this point. She denies any numbness or tingling. No chest pain, shortness of breath, nausea, vomiting, abdominal pain, or headache. Physical Exam Physical Exam: General: Well-developed, well-nourished, obese middle-aged female. Resting comfortably in bed no acute distress. Alert and oriented x 3. Skin: Warm dry with good turgor. No rashes. Expected postoperative and trauma edema in her right lower leg. Fracture blisters are larger than they were 2 days ago. Musculoskeletal: External fixator is in good position. Soft tissues were inspected around the medial aspect of the ankle. There is slightly more swollen than they were 2 days ago. Fracture blister remains in place slightly larger than it was 2 days ago but has not ruptured. Intact motor function of the toes. Neurologic: Gross sensation is intact across the toes and ankle by soft touch. Peripheral pulses are 2+ for both dorsalis pedis and tibialis posterior. Results & Data Vital Signs (Past 12 Hours) Vital Signs Temp Pulse Resp BP Pulse Ox O2 Del Method 11/01/24 07:30 36.5 C 78 16 123/74 95 Room Air 11/01/24 07:15 Room Air Laboratory Results CBC obtained this morning shows a white count of 7.89. H&H of 10.9 and 33.2. Platelets normal at 152,000. Electrolytes today shows sodium 133, potassium 3.7, chloride 95, CO2 37. BUN of 12 with creatinine 0.58. Glucose this morning is 102.
--- NOTE | 2024-11-01 16:13 | Hospitalist Progress Note ---
Date of Service November 01, 2024 Assessment & Plan (1) Closed right ankle fracture: Plan: 59-year-old female with past medical history significant for hypothyroidism, hyperlipidemia, obstructive sleep apnea, moderate persistent asthma, atrial flutter, pulmonary hypertension, chronic diastolic CHF, hypertension, paroxysmal atrial fibrillation, morbid obesity, irritable bowel syndrome with diarrhea, GERD, Sjogren's syndrome, degenerative disc disease, restless leg syndrome, migraine, iron deficiency anemia due to chronic blood loss, antiphospholipid syndrome, depression, mild intellectual disability, schizoaffective disorder bipolar, schizoaffective disorder depressive, history of suicide attempt who lives at home alone and ambulates with a rollator walker gets help with nursing aides 3 times a week and sister lives close by comes because of fall and found to have right ankle fracture. Patient says she was getting up in bed and she felt slightly dizzy which happens sometimes and fell to the right side. She hit her head but no loss of consciousness. X-rays in the ER showed fracture of the medial malleolus on the right side and status post splint in the ER. Denies any headache. Denies blurred visions. No runny nose or sore throat. No cough. No fevers. Appetite is okay. Denies chest pain. Denies shortness of breath. Denies nausea or vomiting. Denies abdominal pain. Normal bowel and bladder movements. Afebrile. Hemodynamics are okay. Closed right ankle fracture/dislocation Secondary to ground-level fall --S/P Closed Reduction, External Fixator Placement of Bimalleolar Ankle Fracture by on 10/30/24 Appreciate orthopedics input Pain control Bowel regimen to prevent constipation Fall precautions Continue nonweightbearing right lower extremity, Out of bed with walker assistance Patient will require open reduction, internal fixation at tertiary care facility likely next week when appropriate for surgery Continue current management Orthopedics following Obstructive sleep apnea BiPAP HS Hypothyroidism Continue levothyroxine Hypertension On amlodipine, hydralazine, hydrochlorothiazide, losartan Reduce amlodipine to 2.5 mg daily due to relatively low blood pressure Monitor and adjust medications as needed History of A-fib On sotalol No longer on anticoagulant secondary to bleeding Hyperlipidemia Continue Crestor Depression Schizoaffective disorder History of suicide attempt Continue home medications Chronic diastolic CHF on Spironolactone and hydrochlorothiazide Monitor for volume overload Moderate persistent asthma Continue home inhalers Morbid obesity BMI 41.6 Counseling DVT prophylaxis Lovenox SQ CODE STATUS DNI DNR Disposition Tertiary care facility as able Admission and Anticipated Discharge Date Admission Date: October 30, 2024 Subjective Patient is seen and examined at bedside No new complaints Right ankle pain at surgical site is better today Denies any chest pain, dyspnea, nausea, vomiting, abdominal pain Review of Systems Review of Systems: All systems reviewed & are unremarkable except as noted in Subjective Physical Exam Physical Exam: Physical Exam: Vitals signs as noted above General Appearance:Morbid Obese, no apparent distress Head: normocephalic, Atraumatic Eyes: normal inspection, EOMI Neck: supple, Trachea midline Respiratory/Chest: Normal breath sounds, CTA, No accessory muscle use Cardiovascular: S1, S2, No murmur Abdomen/GI:Soft, Non tender, Bowel sounds present Extremities/Musculoskeletal:normal inspection, no edema, right lower external fixator in place Neurologic/Psych:AAOX3, grossly no focal neurological deficits Skin: normal color, warm Results & Data Results & Data Vital Signs (Past 12 Hours) Vital Signs Temp Pulse Resp BP Pulse Ox O2 Del Method 11/01/24 15:27 36.8 C 84 18 106/57 L 90 Room Air 11/01/24 07:30 36.5 C 78 16 123/74 95 Room Air 11/01/24 07:15 Room Air Laboratory Results Short CBC 11/01/24 Range/Units 07:34 WBC 7.89 (4.8-10.8) K/ul Hgb 10.9 L (12.0-16.0) g/dl Hct 33.2 L (37.0-47.0) % Plt Count 152 (130-400) K/uL BMP 11/01/24 07:34 Sodium 133 L Potassium 3.7 Chloride 95 L Carbon Dioxide 37 H BUN 12 Creatinine 0.58 L Glucose 102 H Calcium 9.4
[2024-11-01] MEDS: DOCUSATE SODIUM 100 MG CAP PO SCH (17:05)
[2024-11-01] MEDS: MAGNESIUM CHLORIDE W/CALCIUM 64MG DELAYED REL TAB PO SCH (20:14)
[2024-11-02 08:27] LABS: Creatinine Clr Calc Pharmacy 158.8 ml/min
[2024-11-02] MEDS: amLODIPine BESYLATE 5 MG TAB PO SCH (09:25)
--- NOTE | 2024-11-02 10:34 | Orthopedic Progress Note ---
Date of Service November 02, 2024 Assessment & Plan (1) Closed right ankle fracture: Plan: Postop day 3-status post closed reduction right ankle with external fixator with by Dr. Solano Continue nonweightbearing right lower extremity at all times. May transfer from bed to chair if tolerated with max assist. Encourage strict elevation on at least 3 pillows when in bed. Encouraged importance of elevating her heel off of the bed at all times. Ice to right ankle as needed for pain and swelling. Leave the pin dressings in place Care plan: Care of this patient will be transferred over to Dr. Haynes I spoke with Dr. Haynes, foot and ankle surgeon with [facility], earlier today about Ms. Melton. I showed him the patient's x-rays, CT scan, and fluoroscopic imaging. He said he would be willing to do her definitive surgery when her soft tissue envelope is ready, likely sometime in the next 1 to 2 weeks. I asked the patient if her preference would be to stay here and have Dr. Haynes do her surgery or if she would rather transfer to [place] as well as our original plan. The patient expressed a strong preference to stay in [place] closer to her family. Dr. Haynes said he would be able to see the patient sometime in the next day or so. Defer any additional treatment recommendations to Dr. Haynes and appreciate his help with this patient. Admission and Anticipated Discharge Date Admission Date: October 30, 2024 Subjective This 59-year-old female is seen today in her room. She is 3 days status post external fixation of her right lower leg/ankle. She states that the blister on her ankle is unchanged from yesterday. She states she has been able to lift the leg off the bed but has not been able to sit on the bedside due to throbbing. The patient states her leg is sore. She denies any severe pain. She has no other complaints at this point. She denies any numbness or tingling. No chest pain, shortness of breath, nausea, vomiting, abdominal pain, or headache. Review of Systems Review of Systems: All systems reviewed & are unremarkable except as noted in Subjective Physical Exam Physical Exam: Right lower extremity: External fixator is in place. Patient has a 6 cm x 1-1/2 cm fracture blister over the medial aspect of her lower leg just proximal to the medial malleolus. She is able to slightly lift her leg off the bed. She is able to wiggle her toes and intact light sensation to touch. Ankle mobility is not able to be tested due to the positioning of the fixator. Her peripheral pulses are 2+. Results & Data Vital Signs (Past 12 Hours) Vital Signs Temp Pulse Resp BP Pulse Ox O2 Del Method 11/02/24 07:25 36.8 C 83 18 129/72 91 Room Air Diagnostic Findings Laboratory Results WBC 7.89 K/ul (4.8-10.8) 11/01/24 07:34 RBC 3.56 M/uL (4.20-5.40) L 11/01/24 07:34 Hgb 10.9 g/dl (12.0-16.0) L 11/01/24 07:34 POC Hgb 12.6 g/dl (12.0-16.0) 10/30/24 01:36 Hct 33.2 % (37.0-47.0) L 11/01/24 07:34 POC Hct 37 % (37-47) 10/30/24 01:36 MCV 93.3 fL (80.0-100.0) 11/01/24 07:34 MCH 30.6 pg (25.0-34.0) 11/01/24 07:34 MCHC 32.8 g/dL (32.0-36.0) 11/01/24 07:34 RDW Std Deviation 46.3 fL (36.4-46.3) 11/01/24 07:34 RDW Coeff of Lor 13.3 % (11.5-14.5) 11/01/24 07:34 Plt Count 152 K/uL (130-400) 11/01/24 07:34 MPV 10.7 fL (9.4-12.4) 11/01/24 07:34 Immature Gran % (Auto) 0.2 % 10/30/24 07:48 Neut % (Auto) 76.5 % 10/30/24 07:48 Lymph % (Auto) 10.3 % 10/30/24 07:48 [place] % (Auto) 10.6 % 10/30/24 07:48 Eos % (Auto) 1.8 % 10/30/24 07:48 Baso % (Auto) 0.6 % 10/30/24 07:48 Neut # (Auto) 6.84 K/uL (1.40-6.50) H 10/30/24 07:48 Lymph # (Auto) 0.92 K/uL (1.20-3.40) L 10/30/24 07:48 [place] # (Auto) 0.95 K/uL (0.11-0.59) H 10/30/24 07:48 Eos # (Auto) 0.16 K/uL (0.00-0.50) 10/30/24 07:48 Baso # (Auto) 0.05 K/uL (0.00-0.20) 10/30/24 07:48 Immature Gran # (Auto) 0.02 K/uL (0.01-0.20) 10/30/24 07:48 PT 10.1 Seconds (9.0-12.0) 10/30/24 01:17 INR 0.9 (0.9-1.1) 10/30/24 01:17 APTT 25 Seconds (21-31) 10/30/24 01:17 PTT Ratio 0.9 10/30/24 01:17 POC Sodium 138 mmol/L (135-144) 10/30/24 01:36 Sodium 133 mmol/L (136-145) L 11/01/24 07:34 POC Potassium 4.2 mmol/L (3.3-5.0) 10/30/24 01:36 Potassium 3.7 mmol/L (3.5-5.1) 11/01/24 07:34 POC Chloride 99 mmol/L (101-112) L 10/30/24 01:36 Chloride 95 mmol/L (98-107) L 11/01/24 07:34 Carbon Dioxide 37 mmol/L (21-32) H 11/01/24 07:34 POC Total CO2 27 mmol/L (24-31) 10/30/24 01:36 Anion Gap 1 (3-11) L 11/01/24 07:34 POC Anion Gap 17.0 mmol/L (16-25) 10/30/24 01:36 POC BUN 24 mg/dl (7-18) H 10/30/24 01:36 BUN 12 mg/dl (6-23) 11/01/24 07:34 Creatinine 0.50 mg/dl (0.6-1.2) L 11/02/24 07:32 POC Creatinine 1.0 mg/dl (0.6-1.3) 10/30/24 01:36 Est Cr Clr Drug Dosing 158.8 ml/min 11/02/24 07:32 eGFR 106.64 11/02/24 07:32 BUN/Creatinine Ratio 20.7 (10-20) H 11/01/24 07:34 Glucose 102 mg/dl (70-99(Fasting)) H 11/01/24 07:34 POC Glucose (other) 123 mg/dl (70-99) H 10/30/24 01:36 Calcium 9.4 mg/dl (8.6-10.3) 11/01/24 07:34 POC Ioniz Calcium Lupe 1.21 mmol/l (1.12-1.32) 10/30/24 01:36 Magnesium 1.6 mg/dl (1.7-2.4) L 11/01/24 07:34 Total Bilirubin 0.3 mg/dl (0.2-1.0) 10/30/24 01:17 AST 15 U/L (13-39) 10/30/24 01:17 ALT 17 U/L (7-52) 10/30/24 01:17 Alkaline Phosphatase 95 U/L (34-104) 10/30/24 01:17 Total Protein 7.4 gm/dl (6.0-8.3) 10/30/24 01:17 Albumin 4.0 gm/dl (3.4-5.0) 10/30/24 01:17 Globulin 3.4 gm/dl (2.5-4.0) 10/30/24 01:17 Albumin/Globulin Ratio 1.2 (0.9-2) 10/30/24 01:17 Lipase 19 U/L (11-82) 10/30/24 01:17 Urine Color Yellow 10/30/24 02:21 Urine Appearance Clear (Clear) 10/30/24 02:21 Urine pH 6.0 (4.5-7.5) 10/30/24 02:21 Ur Specific [place] 1.011 (1.000-1.030) 10/30/24 02:21 Urine Protein Negative (Negative) 10/30/24 02:21 Urine Glucose (UA) Negative (Negative) 10/30/24 02:21 Urine Ketones Negative (Negative) 10/30/24 02:21 Urine Blood Negative (Negative) 10/30/24 02:21 Urine Nitrite Negative (Negative) 10/30/24 02:21 Urine Bilirubin Negative (Negative) 10/30/24 02:21 Urine Urobilinogen Negative (Negative) 10/30/24 02:21 Ur Leukocyte Esterase Negative (Negative) 10/30/24 02:21 Impressions Chest X-Ray 10/30/24 00:34 EXAM: XR chest 1V portable CLINICAL HISTORY: Trauma TECHNIQUE: An X-ray image of the chest is obtained in AP projection. COMPARISON: 06/10/2024 FINDINGS: Pulmonary Parenchyma: Lungs are clear bilaterally. No evidence of consolidation, collapse, or focal opacities. No pulmonary nodules are identified. Blunting of left costophrenic angle. Clear right costophrenic angle. Heart and Mediastinum: Heart size and shape are normal. No mediastinal widening or masses. No hilar or mediastinal lymphadenopathy. Bony Thorax: Bony thorax appears intact without fractures or deformities. Soft Tissues: Soft tissues overlying the chest wall are unremarkable. IMPRESSION: 1. Blunting of left costophrenic angle, could represent minimal pleural effusion/thickenning (unchanged). 2. No gross airspace opacities. Electronically signed by Ulices Gutierrez 10-30-2024 01:[address] 10/30/24 07:16 CT ankle RT wo con HISTORY: 59 years-old Female preop planning, surgery this afternoon. 3D recons preoperative exam COMPARISON: Right ankle radiographs 10/30/2024 TECHNIQUE: Multiple axial CT images of the right ankle were obtained without IV contrast. Additional 3-D rendered images were obtained incidentally for review. A dose lowering technique was used consistent with the principals of ALARA. FINDINGS: Cortical thickening noted throughout the ankle. Moderate foot and ankle osteoarthritis. Acute to subacute appearing ankle fractures are redemonstrated. The distal fibular metadiaphyseal fracture demonstrates 2 cm lateral and 1 cm posterior displacement. There is foreshortening with apex medial angulation of approximately 37 degrees. Comminuted medial malleolar fracture demonstrates 1.5 cm displacement with apex medial angulation. There is tibiotalar dislocation with apex medial angulation of the tibiotalar joint. Several subcentimeter fracture fragments are noted within the tibiotalar joint space. The talar dome is smooth. No definite additional acute fracture or dislocation. Prominent subcortical cystic changes of the posterior talus. Tendons and ligaments are suboptimally evaluated by CT technique. Moderate c ircumferential subcutaneous edema of the ankle with small ankle joint effusion. Lisfranc articulation appears preserved. IMPRESSION: Fracture dislocation of the ankle as above with numerous subcenti meter intra-articular fracture fragments. ACT 112: Negative or not required by law. The above report was generated using voice recognition software. It may contain grammatical, syntax or spelling errors. Electronically signed by: David Banerjee M.D. 10/30/2024 9:25 AM Ankle X-Ray 10/30/24 17:24 Study: Right ankle, 3 views, right tib-fib, 2 views History: Fracture Comparison: Same-day radiograph Findings/ Impression: Redemonstrated fracture of the medial malleolus. There is diffuse lower extremity subcutaneous edema. External fixation hardware has been placed overlying the posterior ankle, as well as the anterior aspect of the lower leg. Redemonstrated is an old, healed and incompletely united distal fibular metaphyseal fracture. Electronically signed by Jamar Molina 10-30-2024 6:10 PM Tibia/Fibula X-Ray 10/30/24 17:24 Study: Right ankle, 3 views, right tib-fib, 2 views History: Fracture Comparison: Same-day radiograph Findings/ Impression: Redemonstrated fracture of the medial malleolus. There is diffuse lower extremity subcutaneous edema. External fixation hardware has been placed overlying the posterior ankle, as well as the anterior aspect of the lower leg. Redemonstrated is an old, healed and incompletely united distal fibular metaphyseal fracture. Electronically signed by Jamar Molina 10-30-2024 6:10 PM
[2024-11-02] MEDS: MAGNESIUM SULFATE / D5W 1 GM/100 ML BAG IV ONE (10:41)
--- NOTE | 2024-11-02 12:15 | Orthopedic Consultation ---
Date of Consultation November 02, 2024 Assessment & Plan (1) Trimalleolar fracture of right ankle: (2) Ambulatory dysfunction: (3) Fall: (4) Psychosocial stressors: (5) History of seizure: (6) Asymptomatic hypertensive urgency: (7) Symptomatic anemia: (8) Dyspnea on minimal exertion: (9) Hyponatremia: (10) NATY (acute kidney injury): (11) SEEMA (iron deficiency anemia): (12) RLS (restless legs syndrome): (13) MAURO (obstructive sleep apnea): (14) Chronic diastolic (congestive) heart failure: (15) Positive SOFIA (antinuclear antibody): (16) Hypertension: (17) Bipolar I disorder: (18) Morbid obesity: (19) Chronic back pain: (20) Asthma: (21) Paroxysmal A-fib: Plan Sofia Melton is a 59 year old female with past medical history significant for hypothyroidism, hyperlipidemia, obstructive sleep apnea, moderate persistent asthma, atrial flutter, pulmonary hypertension, chronic diastolic CHF, hypertension, paroxysmal atrial fibrillation, morbid obesity, irritable bowel syndrome with diarrhea, GERD, Sjogren's syndrome, degenerative disc disease, restless leg syndrome, migraine, antiphospholipid syndrome, depression, mild intellectual disability, schizoaffective disorder bipolar, schizoaffective disorder depressive, history of suicide attempt who presented to the emergency department 10/30/24 with a chief complaint of right ankle pain secondary to a fall. She was found to have an ankle fracture on x-ray and was splinted and admitted to the hospital, however multiple attempts at closed reduction were made without success. She was taken to the OR for external fixation by Dr Solano. I did discuss the patient's case with Dr Solano. The patient's injury represents an unstable ankle fracture pattern, and as such I do believe that she requires surgical management. In seeing the patient, her soft tissues are still markedly too swollen to allow safe surgical passage. She is a very large medial fracture blister which is immediately in the area of planned surgical incision. I do long discussion with the patient regarding the nature of this diagnosis. Discussed in great detail the pathoanatomy, pathophysiology and treatment options. Due to the unstable nature of this injury, my recommendation is for ORIF of her lateral and medial malleolar I. I explained that the most important piece with regards to surgical timing is soft tissue swelling, so I encouraged her to keep her leg elevated and ice to decrease soft tissue swelling. Based on the severity of the patient soft tissue swelling occurring, I think that the earliest that surgery would be safe would be late next week or early the following week. I will plan to see her in the office next week or in the hospital if she is still here to help plan for definitive surgical timing. We discussed in great detail the risks and benefits of surgical management. The risks include but are not limited to loss of life/limb, DVT, incomplete relief of pain, need for additional surgery, nonunion, malunion, hardware complication, hardware failure, need for additional surgery, infection, wound healing complications, posttraumatic osteoarthrosis. The benefits of surgical management are for a more reproducible realignment of the ankle mortise. Alternatives of surgery would be for management definitively in the external fixator, I believe this carries with it a higher risk of posttraumatic osteoarthrosis as well as malunion, but the obvious benefit would be for decrease surgical site infection risk. After thorough discussion of the risk, benefits, alternatives to surgery, the patient through shared decision making model has elected to proceed with definitive open reduction internal fixation. All the patient's questions were answered to her satisfaction. She should be nonweightbearing on her right lower extremity. She is okay for DVT prophylaxis from my standpoint. She should work with PT/OT and case management to determine a safe discharge plan as she currently lives at home alone. History of Present Illness Reason for Consultation: right ankle fracture Requesting Physician: Dr Solano Attending Physician: Cristobal Costa MD History of Present Illness Sofia Melton is a 59 year old female with past medical history significant for h ypothyroidism, hyperlipidemia, obstructive sleep apnea, moderate persistent asthma, atrial flutter, pulmonary hypertension, chronic diastolic CHF, hypertension, paroxysmal atrial fibrillation, morbid obesity, irritable bowel syndrome with diarrhea, GERD, Sjogren's syndrome, degenerative disc disease, restless leg syndrome, migraine, antiphospholipid syndrome, depression, mild intellectual disability, schizoaffective disorder bipolar, schizoaffective disorder depressive, history of suicide attempt who presented to the emergency department 10/30/24 with a chief complaint of right ankle pain secondary to a fall. She was found to have an ankle fracture on x-ray and was splinted and admitted to the hospital, however multiple attempts at closed reduction were made without success. She was taken to the OR for external fixation by Dr Solano. Dr. Solano did discuss with me the patient's case and asked that I assist in managing her definitive fixation. On my evaluation, the patient notes that the only source of pain is her right ankle. She states that it feels much better in the external fixator. She has been elevating her leg as best as possible, but she has a large fracture blister noted medially. She has significant swelling at this time. She is awaiting placement as she lives at home alone at current. Allergies Allergy/AdvReac Type Severity Reaction Status Date / Time adhesive Allergy Intermediate RASH, ITCHY Verified 06/18/22 21:51 Hydantoins Allergy Intermediate Hives Verified 06/18/22 21:51 ethyl alcohol AdvReac Severe Seizure Verified 06/18/22 21:51 thioridazine AdvReac Severe SEIZURES Verified 06/18/22 21:51 phenytoin AdvReac Intermediate Nausea Verified 06/18/22 21:51 Home Medications Medication Instructions Recorded Confirmed Type Breo Ellipta 1 puff inhalation DAILY 10/30/24 10/30/24 History amlodipine 5 mg tablet 5 mg PO DAILY 10/30/24 10/30/24 History buspirone 10 mg tablet 10 mg PO TID 10/30/24 10/30/24 History duloxetine 30 mg capsule,delayed 30 mg PO DAILY 10/30/24 10/30/24 History release gabapentin 300 mg capsule 300 mg PO HS 10/30/24 10/30/24 History hydralazine 25 mg tablet 75 mg PO TID 10/30/24 10/30/24 History hydrochlorothiazide 12.5 mg tablet 12.5 mg PO DAILY 10/30/24 10/30/24 History lamotrigine 200 mg tablet 200 mg PO BID 10/30/24 10/30/24 History (Lamictal) levocetirizine 5 mg tablet 5 mg PO DAILY 10/30/24 10/30/24 History levothyroxine 200 mcg tablet 200 mcg PO DAILY 10/30/24 10/30/24 History losartan 100 mg tablet 100 mg PO DAILY 10/30/24 10/30/24 History mirabegron 50 mg tablet,extended 50 mg PO HS 10/30/24 10/30/24 History release 24 hr mirtazapine 30 mg tablet 30 mg PO HS 10/30/24 10/30/24 History montelukast 10 mg tablet 10 mg PO HS 10/30/24 10/30/24 History paliperidone 9 mg tablet,extended 9 mg PO DAILY 10/30/24 10/30/24 History release 24 hr perphenazine 4 mg tablet 4 mg PO DAILY 10/30/24 10/30/24 History perphenazine 8 mg tablet 8 mg PO HS 10/30/24 10/30/24 History potassium chloride 10 mEq 10 meq PO DAILY 10/30/24 10/30/24 History tablet,extended release rosuvastatin 5 mg tablet 5 mg PO DAILY 10/30/24 10/30/24 History sertraline 100 mg tablet 200 mg PO DAILY 10/30/24 10/30/24 History sotalol 80 mg tablet 40 mg PO BID 10/30/24 10/30/24 History spironolactone 25 mg tablet 25 mg PO DAILY 10/30/24 10/30/24 History tizanidine 4 mg capsule 4 mg PO TID PRN Muscle Spasm 10/30/24 10/30/24 History Patient History Medical History Falls Suicidal ideation Dyspnea Anxiety and depression Admitted to intensive care unit DVT prophylaxis Nausea and vomiting Hypertensive emergency Morbid obesity Bipolar 1 disorder Osteoarthritis Fibromyalgia Spinal stenosis Degenerative disc disease Chronic back pain GERD (gastroesophageal reflux disease) Hypothyroidism Migraine Seizure SEIZURES X 2 (); CONTROLLED ON LAMICTAL Sleep apnea cpap Epilepsy hx of, last one in IBS (irritable bowel syndrome) Surgical History Nausea and vomiting after administration of anesthetic agent History of cataract surgery RT/LEFT History of total abdominal hysterectomy and bilateral salpingo-oophorectomy S/P foot surgery, left X2 History of carpal tunnel release LEFT Status post lumbar spine surgery for decompression of spinal cord + RODS History of colonoscopy History of cholecystectomy History of tooth extraction ALL UPPER TEETH EXTRACTIONS History of tonsillectomy and adenoidectomy History of endoscopic sinus surgery Family History Father Family history of diabetes mellitus Coronary heart disease Mother Lung cancer Sister Alive and well Brother Alive and well Other No family history of adverse response to anesthesia Social History Smoking Status: Never smoker Tobacco Type: Cigarettes Second Hand Exposure: No; Do You Dip or Chew Tobacco: No; Tobacco Cessation Education Requested by Patient: No Hx Alcohol Use: No Hx Substance Use: No Preferred Language: Telugu Communication Ability: Effective Visual Impairment: No Limitations 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: Normal 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 Max wrap was removed and skin examined. There is a large fracture blisters noted medially. She has severe soft tissue swelling noted. No additional open wounds appreciated at this time. Patient is able to demonstrate active EHL and FHL function. She has mild diminished sensation in a stocking-like distribution in her foot which is at baseline. Results & Data Vital Signs (Past 12 Hours) Vital Signs Temp Pulse Resp BP Pulse Ox O2 Del Method 11/02/24 07:25 36.8 C 83 18 129/72 91 Room Air Diagnostic Findings Multiple x-rays of the right ankle including a CT scan of the right ankle both prereduction, postreduction, and postoperatively were personally interpreted and reviewed. This demonstrates a trimalleolar right ankle fracture that failed multiple attempts at closed reduction and intervally had a external fixator placed. The CT scan was done prior to external fixator placement and as such demonstrates a dislocated ankle.
--- NOTE | 2024-11-02 16:36 | Hospitalist Progress Note ---
Date of Service November 02, 2024 Assessment & Plan (1) Closed right ankle fracture: Plan: 59-year-old female with past medical history significant for hypothyroidism, hyperlipidemia, obstructive sleep apnea, moderate persistent asthma, atrial flutter, pulmonary hypertension, chronic diastolic CHF, hypertension, paroxysmal atrial fibrillation, morbid obesity, irritable bowel syndrome with diarrhea, GERD, Sjogren's syndrome, degenerative disc disease, restless leg syndrome, migraine, iron deficiency anemia due to chronic blood loss, antiphospholipid syndrome, depression, mild intellectual disability, schizoaffective disorder bipolar, schizoaffective disorder depressive, history of suicide attempt who lives at home alone and ambulates with a rollator walker gets help with nursing aides 3 times a week and sister lives close by comes because of fall and found to have right ankle fracture. Patient says she was getting up in bed and she felt slightly dizzy which happens sometimes and fell to the right side. She hit her head but no loss of consciousness. X-rays in the ER showed fracture of the medial malleolus on the right side and status post splint in the ER. Denies any headache. Denies blurred visions. No runny nose or sore throat. No cough. No fevers. Appetite is okay. Denies chest pain. Denies shortness of breath. Denies nausea or vomiting. Denies abdominal pain. Normal bowel and bladder movements. Afebrile. Hemodynamics are okay. Closed right ankle fracture/dislocation Secondary to ground-level fall --S/P Closed Reduction, External Fixator Placement of Bimalleolar Ankle Fracture by on 10/30/24 Appreciate orthopedics input Pain control Bowel regimen to prevent constipation Fall precautions Continue nonweightbearing right lower extremity, Out of bed with walker assistance Patient will require open reduction, internal fixation at tertiary care facility likely next week when appropriate for surgery PT OT eval Patient encouraged to elevation with increased 3 pillows while in bed Minimize narcotics given constipation Obstructive sleep apnea BiPAP HS Hypothyroidism Continue levothyroxine Hypertension On amlodipine, hydralazine, hydrochlorothiazide, losartan Low blood pressure today Hold amlodipine, reduce losartan from 100 to 50 mg, hydralazine from 75 to 50 mg for now Monitor and adjust medications as needed History of A-fib On sotalol No longer on anticoagulant secondary to bleeding Hyperlipidemia Continue Crestor Depression Schizoaffective disorder History of suicide attempt Continue home medications Chronic diastolic CHF on Spironolactone and hydrochlorothiazide Monitor for volume overload Moderate persistent asthma Continue home inhalers Morbid obesity BMI 41.6 Counseling DVT prophylaxis Lovenox SQ CODE STATUS DNI DNR Disposition To be determined Admission and Anticipated Discharge Date Admission Date: October 30, 2024 Subjective Patient is seen and examined at bedside Blood pressure is low today, asymptomatic Right ankle pain is controlled Denies any chest pain, dyspnea, nausea, vomiting, abdominal pain No BM today Review of Systems Review of Systems: All systems reviewed & are unremarkable except as noted in Subjective Physical Exam Physical Exam: Physical Exam: Vitals signs as noted above General Appearance:Morbid Obese, no apparent distress Head: normocephalic, Atraumatic Eyes: normal inspection, EOMI Neck: supple, Trachea midline Respiratory/Chest: Normal breath sounds, CTA, No accessory muscle use Cardiovascular: S1, S2, No murmur Abdomen/GI:Soft, Non tender, Bowel sounds present Extremities/Musculoskeletal:normal inspection, no edema, right lower external fixator in place Neurologic/Psych:AAOX3, grossly no focal neurological deficits Skin: normal color, warm Results & Data Results & Data Vital Signs (Past 12 Hours) Vital Signs Temp Pulse Resp BP Pulse Ox O2 Del Method 11/02/24 16:19 36.9 C 81 18 95/55 L 93 Room Air 11/02/24 07:25 36.8 C 83 18 129/72 91 Room Air Laboratory Results [facility] 11/02/24 07:32 Creatinine 0.50 L
[2024-11-02] MEDS: hydrALAZINE TAB 50 MG TAB PO SCH (21:01)
[2024-11-03 07:31] LABS: BUN Creatinine Ratio 24.5 (10-20); Calcium 9.1 mg/dl (8.6-10.3); Creatinine Clr Calc Pharmacy 162.1 ml/min; Magnesium 1.7 mg/dl (1.7-2.4); Potassium 3.8 mmol/L (3.5-5.1)
[2024-11-03 07:37] LABS: Hematocrit (blood only) 32.1 % (37.0-47.0); Hemoglobin 10.7 g/dl (12.0-16.0); Mean Corpuscular Hemoglobin 30.2 pg (25.0-34.0); Mean Corpuscular Hgb Conc 33.3 g/dL (32.0-36.0); Mean Corpuscular Volume 90.7 fL (80.0-100.0); Mean Platelet Volume 10.6 fL (9.4-12.4); Platelet Count 155 K/uL (130-400); RDW Coefficient of Variation 13.1 % (11.5-14.5); RDW Standard Deviation 43.8 fL (36.4-46.3); Red Blood Count 3.54 M/uL (4.20-5.40); White Blood Count 8.62 K/ul (4.8-10.8)
[2024-11-03] MEDS: LOSARTAN POTASSIUM 50 MG TAB PO SCH (08:49)
[2024-11-03] MEDS: bisacodyL 10 MG SUPP PR ONE (13:47)
--- NOTE | 2024-11-03 15:54 | Hospitalist Progress Note ---
Date of Service November 03, 2024 Assessment & Plan (1) Closed right ankle fracture: Plan: 59-year-old female with past medical history significant for hypothyroidism, hyperlipidemia, obstructive sleep apnea, moderate persistent asthma, atrial flutter, pulmonary hypertension, chronic diastolic CHF, hypertension, paroxysmal atrial fibrillation, morbid obesity, irritable bowel syndrome with diarrhea, GERD, Sjogren's syndrome, degenerative disc disease, restless leg syndrome, migraine, iron deficiency anemia due to chronic blood loss, antiphospholipid syndrome, depression, mild intellectual disability, schizoaffective disorder bipolar, schizoaffective disorder depressive, history of suicide attempt who lives at home alone and ambulates with a rollator walker gets help with nursing aides 3 times a week and sister lives close by comes because of fall and found to have right ankle fracture. Patient says she was getting up in bed and she felt slightly dizzy which happens sometimes and fell to the right side. She hit her head but no loss of consciousness. X-rays in the ER showed fracture of the medial malleolus on the right side and status post splint in the ER. Denies any headache. Denies blurred visions. No runny nose or sore throat. No cough. No fevers. Appetite is okay. Denies chest pain. Denies shortness of breath. Denies nausea or vomiting. Denies abdominal pain. Normal bowel and bladder movements. Afebrile. Hemodynamics are okay. Closed right ankle fracture/dislocation Secondary to ground-level fall --S/P Closed Reduction, External Fixator Placement of Bimalleolar Ankle Fracture by on 10/30/24 Appreciate orthopedics input Pain control Bowel regimen to prevent constipation Fall precautions Continue nonweightbearing right lower extremity, Out of bed with walker assistance Patient will require open reduction, internal fixation at tertiary care facility likely next week when appropriate for surgery PT OT eval Patient encouraged to elevation with increased 3 pillows while in bed Minimize narcotics given constipation Continue current management Constipation Continue bowel regimen Gave a dose of suppository today Will repeat KUB tomorrow Minimize narcotics as able Obstructive sleep apnea BiPAP HS Hypothyroidism Continue levothyroxine Hypertension On amlodipine, hydralazine, hydrochlorothiazide, losartan Hold amlodipine, reduce losartan from 100 to 50 mg, hydralazine from 75 to 50 mg for now Monitor and adjust medications as needed Blood pressure stable today History of A-fib On sotalol No longer on anticoagulant secondary to bleeding Hyperlipidemia Continue Crestor Depression Schizoaffective disorder History of suicide attempt Continue home medications Chronic diastolic CHF on Spironolactone and hydrochlorothiazide Monitor for volume overload Moderate persistent asthma Continue home inhalers Morbid obesity BMI 41.6 Counseling DVT prophylaxis Lovenox SQ CODE STATUS DNI DNR Disposition To be determined Admission and Anticipated Discharge Date Admission Date: October 30, 2024 Subjective Patient is seen and examined at bedside Offers no new complaints today Still feels constipated Right ankle pain is controlled Denies any chest pain, dyspnea, nausea, vomiting, abdominal pain Review of Systems Review of Systems: All systems reviewed & are unremarkable except as noted in Subjective Physical Exam Physical Exam: Physical Exam: Vitals signs as noted above General Appearance:Morbid Obese, no apparent distress Head: normocephalic, Atraumatic Eyes: normal inspection, EOMI Neck: supple, Trachea midline Respiratory/Chest: Normal breath sounds, CTA, No accessory muscle use Cardiovascular: S1, S2, No murmur Abdomen/GI:Soft, Non tender, Bowel sounds present Extremities/Musculoskeletal:normal inspection, no edema, right lower external fixator in place Neurologic/Psych:AAOX3, grossly no focal neurological deficits Skin: normal color, warm Results & Data Results & Data Vital Signs (Past 12 Hours) Vital Signs Temp Pulse Resp BP Pulse Ox O2 Del Method 11/03/24 13:52 36.7 C 88 18 127/77 94 Room Air 11/03/24 09:00 Room Air 11/03/24 07:41 37.7 C H 96 H 18 130/80 92 Room Air Laboratory Results Short CBC 11/03/24 Range/Units 06:47 WBC 8.62 (4.8-10.8) K/ul Hgb 10.7 L (12.0-16.0) g/dl Hct 32.1 L (37.0-47.0) % Plt Count 155 (130-400) K/uL BMP 11/03/24 06:47 Sodium 132 L Potassium 3.8 Chloride 95 L Carbon Dioxide 33 H BUN 12 Creatinine 0.49 L Glucose 108 H Calcium 9.1
--- NOTE | 2024-11-03 16:48 | Orthopedic Progress Note ---
Date of Service November 03, 2024 Assessment & Plan (1) Closed right ankle fracture: Plan: Postop day 4-status post closed reduction right ankle with external fixator with by Dr. Solano Continue nonweightbearing right lower extremity at all times. May transfer from bed to chair if tolerated with max assist. Encourage strict elevation on at least 3 pillows when in bed. Encouraged importance of elevating her heel off of the bed at all times. Ice to right ankle as needed for pain and swelling. Leave the pin dressings in place From an orthopaedic standpoint, may discharge if an appropriate care facility is found Follow-up with Dr. Haynes as per his instructions. Admission and Anticipated Discharge Date Admission Date: October 30, 2024 Subjective Patient seen on afternoon rounds. Dr. Haynes saw her yesterday and will assume definitive care for her ankle fracture. He is thinking at least a week from now according to his note. Patient reports her leg is comfortable and the splint is not bothering her. Reports pain is well-controlled. Physical Exam Physical Exam: Resting comfortably bed no acute distress. Exposed toes are warm well-perfused. She wiggles her toes. She is sensory intact to moving light touch over the toes. Still has a large fracture blister on the medial ankle measuring about 1.5 cm x 4 cm. Results & Data Vital Signs (Past 12 Hours) Vital Signs Temp Pulse Resp BP Pulse Ox O2 Del Method 11/03/24 13:52 36.7 C 88 18 127/77 94 Room Air 11/03/24 09:00 Room Air 11/03/24 07:41 37.7 C H 96 H 18 130/80 92 Room Air
--- NOTE | 2024-11-04 07:38 | XRay Report ---
EXAM: XR KUB/Abdomen 1 view CLINICAL HISTORY: Constipation TECHNIQUE: Radiograph of kub/abdomen was acquired. COMPARISON: - FINDINGS: Non-obstructive, non-specific bowel gas pattern. No significant air fluid levels. No evidence of air under diaphragm. No obvious radio opacity overlying kidneys/ureters/urinary bladder. No obvious organomegaly. Post implant status in the lumbar spine. IMPRESSION: 1. No acute abdominal abnormality. Electronically signed by Raphael Oh 11-04-2024 07:37 AM
[2024-11-04 07:44] VITALS: RESP 18
--- NOTE | 2024-11-04 10:24 | Orthopedic Progress Note ---
Date of Service November 04, 2024 Assessment & Plan (1) Closed right ankle fracture: Plan: Postop day 5-status post closed reduction right ankle with external fixator with by Dr. Solano Continue nonweightbearing right lower extremity at all times. May transfer from bed to chair if tolerated with max assist. Encourage strict elevation on at least 3 pillows when in bed. Encouraged importance of elevating her heel off of the bed at all times. Ice to right ankle as needed for pain and swelling. Leave the pin dressings in place From an orthopaedic standpoint, may discharge if an appropriate care facility is found Follow-up with Dr. Haynes as per his instructions. Admission and Anticipated Discharge Date Admission Date: October 30, 2024 Subjective Patient seen on AM rounds. Patient reports her leg is comfortable and the splint is not bothering her. Reports pain is well-controlled. Physical Exam Physical Exam: Resting comfortably bed no acute distress. Exposed toes are warm well-perfused. She wiggles her toes. She is sensory i ntact to moving light touch over the toes. Still has a large fracture blister on the medial ankle measuring about 1.5 cm x 4 cm. fracture blister unchanged in size since yesterday. Skin swelling the same to perhaps a little better. Still no skin wrinkles. Results & Data Vital Signs (Past 12 Hours) Vital Signs Temp Pulse Resp BP Pulse Ox O2 Del Method 11/04/24 07:43 36.7 C 89 18 166/88 H 93 Room Air
--- NOTE | 2024-11-04 15:19 | Hospitalist Progress Note ---
Date of Service November 04, 2024 Assessment & Plan (1) Closed right ankle fracture: Plan: 59-year-old female with past medical history significant for hypothyroidism, hyperlipidemia, obstructive sleep apnea, moderate persistent asthma, atrial flutter, pulmonary hypertension, chronic diastolic CHF, hypertension, paroxysmal atrial fibrillation, morbid obesity, irritable bowel syndrome with diarrhea, GERD, Sjogren's syndrome, degenerative disc disease, restless leg syndrome, migraine, iron deficiency anemia due to chronic blood loss, antiphospholipid syndrome, depression, mild intellectual disability, schizoaffective disorder bipolar, schizoaffective disorder depressive, history of suicide attempt who lives at home alone and ambulates with a rollator walker gets help with nursing aides 3 times a week and sister lives close by comes because of fall and found to have right ankle fracture. Patient says she was getting up in bed and she felt slightly dizzy which happens sometimes and fell to the right side. She hit her head but no loss of consciousness. X-rays in the ER showed fracture of the medial malleolus on the right side and status post splint in the ER. Denies any headache. Denies blurred visions. No runny nose or sore throat. No cough. No fevers. Appetite is okay. Denies chest pain. Denies shortness of breath. Denies nausea or vomiting. Denies abdominal pain. Normal bowel and bladder movements. Afebrile. Hemodynamics are okay. Closed right ankle fracture/dislocation Secondary to ground-level fall --S/P Closed Reduction, External Fixator Placement of Bimalleolar Ankle Fracture by on 10/30/24 Appreciate orthopedics input Pain control Bowel regimen to prevent constipation Fall precautions Continue nonweightbearing right lower extremity, Out of bed with walker assistance Patient will require open reduction, internal fixation at tertiary care facility likely next week when appropriate for surgery PT OT eval Patient encouraged to elevation with increased 3 pillows while in bed Minimize narcotics given constipation Case management to help with discharge planning Needs Follow-up with orthopedics on discharge Constipation Continue bowel regimen Minimize narcotics as able Resolved Obstructive sleep apnea BiPAP HS Hypothyroidism Continue levothyroxine Hypertension On amlodipine, hydralazine, hydrochlorothiazide, losartan Hold amlodipine, reduce losartan from 100 to 50 mg for now Monitor and adjust medications as needed BP slowly improving History of A-fib On sotalol No longer on anticoagulant secondary to bleeding Hyperlipidemia Continue Crestor Depression Schizoaffective disorder History of suicide attempt Continue home medications Chronic diastolic CHF on Spironolactone and hydrochlorothiazide Monitor for volume overload Moderate persistent asthma Continue home inhalers Morbid obesity BMI 41.6 Counseling DVT prophylaxis Lovenox SQ CODE STATUS DNI DNR Disposition To be determined Admission and Anticipated Discharge Date Admission Date: October 30, 2024 Subjective Patient is seen and examined at bedside Constipation resolved Right ankle pain is controlled No new complaints today Denies any chest pain, dyspnea, nausea, vomiting, abdominal pain Review of Systems Review of Systems: All systems reviewed & are unremarkable except as noted in Subjective Physical Exam Physical Exam: Physical Exam: Vitals signs as noted above General Appearance:Morbid Obese, no apparent distress Head: normocephalic, Atraumatic Eyes: normal inspection, EOMI Neck: supple, Trachea midline Respiratory/Chest: Normal breath sounds, CTA, No accessory muscle use Cardiovascular: S1, S2, No murmur Abdomen/GI:Soft, Non tender, Bowel sounds present Extremities/Musculoskeletal:normal inspection, no edema, right lower external fixator in place Neurologic/Psych:AAOX3, grossly no focal neurological deficits Skin: normal color, warm Results & Data Results & Data Vital Signs (Past 12 Hours) Vital Signs Temp Pulse Resp BP Pulse Ox O2 Del Method 11/04/24 10:39 Room Air 11/04/24 07:43 36.7 C 89 18 166/88 H 93 Room Air
[2024-11-04] MEDS: hydrALAZINE HCL 25 MG TAB PO SCH (20:53)
[2024-11-05 07:14] LABS: Hematocrit (blood only) 31.7 % (37.0-47.0); Hemoglobin 10.6 g/dl (12.0-16.0); Mean Corpuscular Hemoglobin 30.4 pg (25.0-34.0); Mean Corpuscular Hgb Conc 33.4 g/dL (32.0-36.0); Mean Corpuscular Volume 90.8 fL (80.0-100.0); Mean Platelet Volume 11.8 fL (9.4-12.4); Platelet Count 177 K/uL (130-400); RDW Coefficient of Variation 13.4 % (11.5-14.5); RDW Standard Deviation 44.4 fL (36.4-46.3); Red Blood Count 3.49 M/uL (4.20-5.40); White Blood Count 9.93 K/ul (4.8-10.8)
[2024-11-05 07:24] LABS: Calcium 9.2 mg/dl (8.6-10.3); Creatinine Clr Calc Pharmacy 172.7 ml/min; Potassium 3.8 mmol/L (3.5-5.1)
--- NOTE | 2024-11-05 15:54 | Hospitalist Progress Note ---
Date of Service November 05, 2024 Assessment & Plan (1) Closed right ankle fracture: Plan: 59-year-old female with past medical history significant for hypothyroidism, hyperlipidemia, obstructive sleep apnea, moderate persistent asthma, atrial flutter, pulmonary hypertension, chronic diastolic CHF, hypertension, paroxysmal atrial fibrillation, morbid obesity, irritable bowel syndrome with diarrhea, GERD, Sjogren's syndrome, degenerative disc disease, restless leg syndrome, migraine, iron deficiency anemia due to chronic blood loss, antiphospholipid syndrome, depression, mild intellectual disability, schizoaffective disorder bipolar, schizoaffective disorder depressive, history of suicide attempt who lives at home alone and ambulates with a rollator walker gets help with nursing aides 3 times a week and sister lives close by comes because of fall and found to have right ankle fracture. Patient says she was getting up in bed and she felt slightly dizzy which happens sometimes and fell to the right side. She hit her head but no loss of consciousness. X-rays in the ER showed fracture of the medial malleolus on the right side and status post splint in the ER. Denies any headache. Denies blurred visions. No runny nose or sore throat. No cough. No fevers. Appetite is okay. Denies chest pain. Denies shortness of breath. Denies nausea or vomiting. Denies abdominal pain. Normal bowel and bladder movements. Afebrile. Hemodynamics are okay. Closed right ankle fracture/dislocation Secondary to ground-level fall --S/P Closed Reduction, External Fixator Placement of Bimalleolar Ankle Fracture by on 10/30/24 Appreciate orthopedics input Pain control Bowel regimen to prevent constipation Fall precautions Continue nonweightbearing right lower extremity, Out of bed with walker assistance PT OT eval Patient encouraged to elevation with increased 3 pillows while in bed Minimize narcotics given constipation Plan to discharge to SNF when accepted Needs follow-up with Dr. Haynes on discharge Constipation Continue bowel regimen Minimize narcotics as able Resolved Obstructive sleep apnea BiPAP HS Hypothyroidism Continue levothyroxine Hypertension On amlodipine, hydralazine, hydrochlorothiazide, losartan Hold amlodipine, reduce losartan from 100 to 50 mg for now Monitor and adjust medications as needed BP slowly improving History of A-fib On sotalol No longer on anticoagulant secondary to bleeding Hyperlipidemia Continue Crestor Depression Schizoaffective disorder History of suicide attempt Continue home medications Chronic diastolic CHF on Spironolactone and hydrochlorothiazide Monitor for volume overload Moderate persistent asthma Continue home inhalers Morbid obesity BMI 41.6 Counseling DVT prophylaxis Lovenox SQ CODE STATUS DNI DNR Disposition SNF likely tomorrow Admission and Anticipated Discharge Date Admission Date: October 30, 2024 Subjective Patient is seen and examined at bedside States having right ankle pain today Denies any chest pain, dyspnea, nausea, vomiting, abdominal pain Family at bedside Review of Systems Review of Systems: All systems reviewed & are unremarkable except as noted in Subjective Physical Exam Physical Exam: Physical Exam: Vitals signs as noted above General Appearance:Morbid Obese, no apparent distress Head: normocephalic, Atraumatic Eyes: normal inspection, EOMI Neck: supple, Trachea midline Respiratory/Chest: Normal breath sounds, CTA, No accessory muscle use Cardiovascular: S1, S2, No murmur Abdomen/GI:Soft, Non tender, Bowel sounds present Extremities/Musculoskeletal:normal inspection, no edema, right lower external fixator in place Neurologic/Psych:AAOX3, grossly no focal neurological deficits Skin: normal color, warm Results & Data Results & Data Vital Signs (Past 12 Hours) Vital Signs Temp Pulse Resp BP BP Pulse Ox O2 Del Method 11/05/24 14:37 36.4 C L 69 18 113/65 96 Room Air 11/05/24 07:03 37.1 C 73 18 121/70 92 Room Air Laboratory Results Short CBC 11/05/24 Range/Units 05:34 WBC 9.93 (4.8-10.8) K/ul Hgb 10.6 L (12.0-16.0) g/dl Hct 31.7 L (37.0-47.0) % Plt Count 177 (130-400) K/uL BMP 11/05/24 05:34 Sodium 129 L Potassium 3.8 Chloride 93 L Carbon Dioxide 30 BUN 17 Creatinine 0.46 L Glucose 103 H Calcium 9.2
[2024-11-06 07:28] LABS: BUN Creatinine Ratio 35.4 (10-20); Calcium 9.3 mg/dl (8.6-10.3); Creatinine Clr Calc Pharmacy 165.5 ml/min; Potassium 3.4 mmol/L (3.5-5.1)
--- NOTE | 2024-11-06 11:23 | Orthopedic Progress Note ---
Date of Service November 06, 2024 Assessment & Plan (1) Trimalleolar fracture of right ankle: (2) Ambulatory dysfunction: (3) Fall: (4) Psychosocial stressors: (5) History of seizure: (6) Asymptomatic hypertensive urgency: (7) Dyspnea on minimal exertion: (8) Hyponatremia: (9) NATY (acute kidney injury): (10) RLS (restless legs syndrome): (11) MAURO (obstructive sleep apnea): (12) Chronic diastolic (congestive) heart failure: (13) Positive SOFIA (antinuclear antibody): (14) Morbid obesity: Plan Sofia Melton is a 59 year old female with past medical history significant for hypothyroidism, hyperlipidemia, obstructive sleep apnea, moderate persistent asthma, atrial flutter, pulmonary hypertension, chronic diastolic CHF, hypertension, paroxysmal atrial fibrillation, morbid obesity, irritable bowel syndrome with diarrhea, GERD, Sjogren's syndrome, degenerative disc disease, restless leg syndrome, migraine, antiphospholipid syndrome, depression, mild intellectual disability, schizoaffective disorder bipolar, schizoaffective disorder depressive, history of suicide attempt who presented to the emergency department 10/30/24 with a chief complaint of right ankle pain secondary to a fall. She was found to have an ankle fracture on x-ray and was splinted and admitted to the hospital, however multiple attempts at closed reduction were made without success. She was taken to the OR for external fixation by Dr Solano. I did discuss the patient's case with Dr Solano. The patient's injury represents an unstable ankle fracture pattern, and as such I do believe that she requires surgical management. In seeing the patient, her soft tissues are still markedly too swollen to allow safe surgical passage. She is a very large medial fracture blister which is immediately in the area of planned surgical incision. On repeat evaluation today, this fracture blister has popped and so I did express all of the fluid and redress her wound. She is still markedly too swollen for safe surgical management. I once again had a long discussion with the patient regarding the nature of this diagnosis. Discussed in great detail the pathoanatomy, pathophysiology and treatment options. Due to the unstable nature of this injury, my recommendation is for ORIF of her lateral and medial malleolar I. I explained that the most important piece with regards to surgical timing is soft tissue swelling, so I encouraged her to keep her leg elevated and ice to decrease soft tissue swelling. Based on the severity of the patient soft tissue swelling occurring, I think that the earliest that surgery would be safe would be early next week. Should the patient be discharged, I will plan to see her in the office later this week for another swelling check. I have also ordered a repeat CT scan as the original CT scan was done while her ankle was still dislocated. We discussed in great detail the risks and benefits of surgical management. The risks include but are not limited to loss of life/limb, DVT, incomplete relief of pain, need for additional surgery, nonunion, malunion, hardware complication, hardware failure, need for additional surgery, infection, wound healing complications, posttraumatic osteoarthrosis. The benefits of surgical management are for a more reproducible realignment of the ankle mortise. Alternatives of surgery would be for management definitively in the external fixator, I believe this carries with it a higher risk of posttraumatic osteoarthrosis as well as malunion, but the obvious benefit would be for decrease surgical site infection risk. I did explain to the patient that due to her significant medical comorbidities as well as the significance of the soft tissue injury, she is at a higher risk than the general population of wound healing complications and/or infection. After thorough discussion of the risk, benefits, alternatives to surgery, the patient through shared decision making model has elected to proceed with definitive open reduction internal fixation. All the patient's questions were answered to her satisfaction. She should be nonweightbearing on her right lower extremity. She is okay for DVT prophylaxis from my standpoint. She should work with PT/OT and case management to determine a safe discharge plan as she currently lives at home alone. Admission and Anticipated Discharge Date Admission Date: October 30, 2024 Subjective Patient seen and evaluated at bedside for swelling check of her left lower extremity. She still has severe soft tissue swelling with a large fracture blister noted medially. Patient notes that she has been doing her best to keep her limb elevated. Review of Systems Review of Systems: All systems reviewed & are unremarkable except as noted in HPI & below Physical Exam Physical Exam: On physical examination, the patient's dressings were removed and her skin examined. She still has a very large fracture blister noted medially, however this has popped so I did expel all fluid and replace a dressing. There is no wrinkle sign present at this time. Results & Data Vital Signs (Past 12 Hours) Vital Signs Temp Pulse Resp BP Pulse Ox O2 Del Method 11/06/24 09:01 Room Air 11/06/24 07:10 36.3 C L 74 18 143/78 H 98 Room Air
--- NOTE | 2024-11-06 14:08 | CT Scan Report ---
CT ankle RT wo con CLINICAL HISTORY: preop planning COMPARISON STUDY: X-ray and CT of 10/30/2024 FINDINGS: External fixator is present. Oblique distal fibular fracture is minimally displaced, improv ed. Mildly comminuted medial malleolus fracture is mildly displaced, improved. Greatest intra-articul ar gap at the medial malleolus fracture is 5 mm. No fracture seen at the talus, calcaneus, or visuali zed portion of the foot. No significant soft tissue hematoma seen. IMPRESSION: Improved alignment at the bimalleolar fractures. Otherwise as described. ACT 112: Negative or not required by law. Electronically signed by: Anderson Trivedi M.D. 11/06/2024 2:06 PM
--- NOTE | 2024-11-06 16:37 | Hospitalist Progress Note ---
Date of Service November 06, 2024 Assessment & Plan (1) Closed right ankle fracture: Plan: 59-year-old female with past medical history significant for hypothyroidism, hyperlipidemia, obstructive sleep apnea, moderate persistent asthma, atrial flutter, pulmonary hypertension, chronic diastolic CHF, hypertension, paroxysmal atrial fibrillation, morbid obesity, irritable bowel syndrome with diarrhea, GERD, Sjogren's syndrome, degenerative disc disease, restless leg syndrome, migraine, iron deficiency anemia due to chronic blood loss, antiphospholipid syndrome, depression, mild intellectual disability, schizoaffective disorder bipolar, schizoaffective disorder depressive, history of suicide attempt who lives at home alone and ambulates with a rollator walker gets help with nursing aides 3 times a week and sister lives close by comes because of fall and found to have right ankle fracture. Patient says she was getting up in bed and she felt slightly dizzy which happens sometimes and fell to the right side. She hit her head but no loss of consciousness. X-rays in the ER showed fracture of the medial malleolus on the right side and status post splint in the ER. Denies any headache. Denies blurred visions. No runny nose or sore throat. No cough. No fevers. Appetite is okay. Denies chest pain. Denies shortness of breath. Denies nausea or vomiting. Denies abdominal pain. Normal bowel and bladder movements. Afebrile. Hemodynamics are okay. Closed right ankle fracture/dislocation Secondary to ground-level fall --S/P Closed Reduction, External Fixator Placement of Bimalleolar Ankle Fracture by on 10/30/24 Appreciate orthopedics input and recommendation Pain control Bowel regimen to prevent constipation Fall precautions Continue nonweightbearing right lower extremity, Out of bed with walker assistance PT OT eval Patient encouraged to elevation with increased 3 pillows while in bed Minimize narcotics given constipation Plan to discharge to SNF when accepted Needs follow-up with Dr. Haynes on discharge Remains medically stable without any significant symptoms Hyponatremia Sodium level remains mildly low at 129 Will try sodium tablet 1 g twice daily and repeat tomorrow Constipation Continue bowel regimen Minimize narcotics as able Resolved Obstructive sleep apnea BiPAP HS Hypothyroidism Continue levothyroxine Hypertension On amlodipine, hydralazine, hydrochlorothiazide, losartan Hold amlodipine, reduce losartan from 100 to 50 mg for now Monitor and adjust medications as needed BP slowly improving History of A-fib On sotalol No longer on anticoagulant secondary to bleeding Hyperlipidemia Continue Crestor Depression Schizoaffective disorder History of suicide attempt Continue home medications Denies any symptoms of depression and does not have any signs and symptoms of schizophrenia Remains stable on current medications and will be discharged on those medications Likely to remain stable regarding her depression/schizoaffective disorder Chronic diastolic CHF On Spironolactone and hydrochlorothiazide Monitor for volume overload Moderate persistent asthma Continue home inhalers Morbid obesity BMI 41.6 Counseling DVT prophylaxis Lovenox SQ CODE STATUS DNI DNR Disposition SNF likely tomorrow Admission and Anticipated Discharge Date Admission Date: October 30, 2024 Subjective 11/06/2024 The patient was seen and examined in medical floor She is status post trimalleolar fracture of the right ankle and status post Ortho evaluation Will need rehab placement and awaiting Review of Systems Review of Systems: all systems reviewed and are unremarkable except as noted below Physical Exam Physical Exam: Lying in bed without any acute distress Constitutional: well developed, well nourished, + ill appearing and + obese Eyes: PERRL, conjunctivae normal, anicteric sclerae ENMT: external ear and nose normal, oropharynx normal Neck: trachea midline, no thyromegaly Respiratory: no respiratory distress Auscultation: lungs clear to auscultation bilaterally Cardiovascular: Rate/Rhythm: regular rate and regular rhythm; not tachycardic Heart Sounds: normal S1 and normal S2; no murmur Extremities: + edema ( trace edema bilaterally) Gastrointestinal (Abdomen): Inspection/Auscultation: normal bowel sounds; abdomen not distended Percussion/Palpation: abdomen soft; abdomen nontender Musculoskeletal: Pain in the left ankle Neurologic: normal touch/pain/proprioception, moves all extremities ( except right leg) and + focal motor deficit Lymphatic: no cervical or axillary lymphadenopathy Results & Data Results & Data Vital Signs (Past 12 Hours) Vital Signs Temp Pulse Resp BP Pulse Ox O2 Del Method 11/06/24 13:57 36.6 C 74 18 102/64 98 Room Air 11/06/24 09:01 Room Air 11/06/24 07:10 36.3 C L 74 18 143/78 H 98 Room Air Laboratory Results [facility] 11/06/24 05:58 Sodium 129 L Potassium 3.4 L Chloride 91 L Carbon Dioxide 31 BUN 17 Creatinine 0.48 L Glucose 97 Calcium 9.3 Medications Administered Current Inpatient Medications Acetaminophen (Acetaminophen 325 Mg Tab) 650 mg PO Q4H PRN PRN Reason: Mild Pain(Scale 1, 2, 3)/fever Stop: 11/29/24 06:30 Last Admin: 11/05/24 20:47 Dose: 650 mg Amlodipine Besylate (Amlodipine Besylate 5 Mg Tab) 2.5 mg PO DAILY [facility]AVI Stop: 12/02/24 08:59 Last Admin: 11/02/24 09:25 Dose: 2.5 mg Bisacodyl (Bisacodyl 10 Mg Supp) 10 mg OH DAILY PRN PRN Reason: Constipation Stop: 11/29/24 18:14 Buspirone HCl (Buspirone 5 Mg Tab) 10 mg PO TID [facility]AVI Stop: 11/29/24 08:59 Last Admin: 11/06/24 14:23 Dose: 10 mg Cetirizine HCl (Cetirizine Hcl 10 Mg Tablet) 10 mg PO DAILY [facility]AVI Stop: 11/29/24 08:59 Last Admin: 11/06/24 08:23 Dose: 10 mg Docusate Sodium (Docusate Sodium 100 Mg Cap) 100 mg PO BID [facility]AVI Stop: 12/01/24 16:09 Last Admin: 11/06/24 08:20 Dose: 100 mg Duloxetine HCl (Duloxetine Hcl 30 Mg Cap) 30 mg PO DAILY [facility] Stop: 11/29/24 08:59 Last Admin: 11/06/24 08:23 Dose: 30 mg Enoxaparin Sodium (Enoxaparin Inj 40 Mg/0.4 Ml Syr) 40 mg SQ Q12H [facility] Stop: 11/29/24 06:59 Last Admin: 11/06/24 05:26 Dose: 40 mg Fluticasone/Vilanterol (Fluticasone/Vilanterol 200/25mcg 14 Puffs/Inhaler) 1 puffs INH DAILY [facility]AVI Stop: 11/29/24 08:59 Last Admin: 11/06/24 08:20 Dose: 1 puffs Gabapentin (Gabapentin 300 Mg Cap) 300 mg PO HS [facility]AVI Stop: 11/29/24 20:59 Last Admin: 11/05/24 20:47 Dose: 300 mg Hydralazine HCl (Hydralazine Hcl 25 Mg Tab) 75 mg PO TID [facility] Stop: 12/04/24 20:59 Last Admin: 11/06/24 14:22 Dose: 75 mg Hydrochlorothiazide (Hydrochlorothiazide 25 Mg Tab) 12.5 mg PO DAILY [facility] Stop: 11/29/24 08:59 Last Admin: 11/06/24 08:21 Dose: 12.5 mg Hydromorphone HCl (Hydromorphone Inj 0.5 Mg/0.5 Ml Syr) 0.25 mg IV Q4H PRN PRN Reason: Moderate Pain (Scale 4, 5, 6) Stop: 11/13/24 06:30 Hydromorphone HCl (Hydromorphone Inj 0.5 Mg/0.5 Ml Syr) 0.5 mg IV Q4H PRN PRN Reason: Severe Pain (Scale 7, 8, 9,10) Stop: 11/13/24 06:30 Last Admin: 11/06/24 11:55 Dose: 0.5 mg Lamotrigine (Lamotrigine 100 Mg Tab) 200 mg PO BID [facility]; Protocol Stop: 11/29/24 08:59 Last Admin: 11/06/24 08:20 Dose: 200 mg Levothyroxine Sodium ([facility]othyroxine Sodium 200 Mcg Tablet) [facility]: 11/29/24 06:59 Last Admin: 11/06/24 05:26 Dose: 200 mcg Losartan Potassium (Losartan Potassium 50 Mg Tab) 50 mg PO DAILY [facility] Stop: 12/03/24 08:59 Last Admin: 11/06/24 08:22 Dose: 50 mg Magnesium Chloride (Magnesium Chloride W/Calcium 64mg Delayed Rel Tab) 64 mg PO BID [facility] Stop: 12/01/24 20:59 Last Admin: 11/06/24 08:23 Dose: 64 mg Mirtazapine (Mirtazapine Tab 15 Mg Tab) 30 mg PO [facility] Stop: 11/29/24 20:59 Last Admin: 11/05/24 20:46 Dose: 30 mg Montelukast Sodium (Montelukast Sodium 10 Mg Tablet) 10 mg PO HS [facility] Stop: 11/29/24 20:59 Last Admin: 11/05/24 20:46 Dose: 10 mg Multivitamins (Multivitamin Tab) 1 tab PO QAM [facility] Stop: 11/30/24 08:59 Last Admin: 11/06/24 08:23 Dose: 1 tab Naloxone HCl (Naloxone Hcl 0.4 Mg/1 Ml Vial/Carp) 0.1 mg IV Q5M PRN PRN Reason: Oversedation/Resp Depression Stop: 11/29/24 18:14 Oxycodone HCl (Oxycodone Hcl Ir 5 Mg Tab (Immediate Release)) 5 mg PO Q6H PRN PRN Reason: Pain Stop: 11/14/24 09:01 Last Admin: 11/05/24 20:53 Dose: 5 mg Paliperidone (Paliperidone 3 Mg Tabcr) 9 mg PO DAILY [facility] Stop: 11/29/24 08:59 Last Admin: 11/06/24 08:20 Dose: 9 mg Perphenazine (Perphenazine 4 Mg Tab) 4 mg PO DAILY [facility] Stop: 11/29/24 08:59 Last Admin: 11/06/24 08:25 Dose: 4 mg Perphenazine (Perphenazine 4 Mg Tab) 8 mg PO HS [facility] Stop: 11/29/24 20:59 Last Admin: 11/05/24 20:47 Dose: 8 mg Polyethylene Glycol (Polyethylene (Miralax) 17 Gm Pack) 17 gm PO DAILY PRN PRN Reason: Constipation Stop: 11/29/24 06:30 Last Admin: 11/02/24 20:57 Dose: 17 gm Potassium Chloride (Potassium Chloride 10 Meq Tabcr) 10 meq PO DAILY [facility] Stop: 11/29/24 08:59 Last Admin: 11/06/24 08:20 Dose: 10 meq Rosuvastatin Calcium (Rosuvastatin Calcium 5 Mg Tab) 5 mg PO DAILY [facility] Stop: 11/29/24 08:59 Last Admin: 11/06/24 08:25 Dose: 5 mg Sertraline HCl (Sertraline Hcl 100 Mg Tablet) 200 mg PO DAILY [facility] Stop: 11/29/24 08:59 Last Admin: 11/06/24 08:23 Dose: 200 mg Sotalol HCl (Sotalol Hcl 80 Mg Tab) 40 mg PO BID [facility] Stop: 11/29/24 08:59 Last Admin: 11/06/24 08:22 Dose: 40 mg Spironolactone (Spironolactone 25 Mg Tab) 25 mg PO DAILY [facility] Stop: 11/29/24 08:59 Last Admin: 11/06/24 08:20 Dose: 25 mg Tizanidine HCl (Tizanidine Hcl 4 Mg Tablet) 4 mg PO TID PRN PRN Reason: Muscle Spasm Stop: 11/29/24 06:30 Last Admin: 11/06/24 14:23 Dose: 4 mg Vibegron (Vibegron 75 Mg Tab) 75 mg PO HS [facility] Stop: 11/29/24 20:59 Last Admin: 11/05/24 20:49 Dose: 75 mg
[2024-11-06] MEDS: SODIUM CHLORIDE 1 GM TABLET PO SCH (21:46)
[2024-11-06] MEDS: MELATONIN 3 MG TAB PO PRN (21:46)
[2024-11-07 07:12] VITALS: PULSE 66; TEMP 98.2; O2SAT 98
[2024-11-07 07:52] LABS: Basophils # (auto) 0.06 K/uL (0.00-0.20); Basophils % (auto) 0.8 %; Eosinophils # (auto) 0.21 K/uL (0.00-0.50); Eosinophils % (auto) 2.9 %; Hematocrit (blood only) 29.8 % (37.0-47.0); Hemoglobin 9.8 g/dl (12.0-16.0); Immature Granulocytes # (auto) 0.03 K/uL (0.01-0.20); Immature Granulocytes % (auto) 0.4 %; Lymphocytes # (auto) 0.82 K/uL (1.20-3.40); Lymphocytes % (auto) 11.2 %; Mean Corpuscular Hemoglobin 29.6 pg (25.0-34.0); Mean Corpuscular Hgb Conc 32.9 g/dL (32.0-36.0); Monocytes # (auto) 0.91 K/uL (0.11-0.59); Monocytes % (auto) 12.4 %; Neutrophils # (auto) 5.31 K/uL (1.40-6.50); Neutrophils % (auto) 72.3 %; Platelet Count 210 K/uL (130-400); RDW Coefficient of Variation 13.2 % (11.5-14.5); RDW Standard Deviation 43.5 fL (36.4-46.3); Red Blood Count 3.31 M/uL (4.20-5.40); White Blood Count 7.34 K/ul (4.8-10.8)
[2024-11-07 08:44] LABS: BUN Creatinine Ratio 34.5 (10-20); Calcium 9.4 mg/dl (8.6-10.3); Creatinine Clr Calc Pharmacy 136.9 ml/min; Potassium 3.4 mmol/L (3.5-5.1)
[2024-11-07] MEDS: POTASSIUM CHLORIDE CRTAB 20 MEQ TABCR PO STA (08:52)
--- NOTE | 2024-11-07 11:50 | Hospitalist Progress Note ---
Date of Service November 07, 2024 Assessment & Plan (1) Closed right ankle fracture: Plan: 59-year-old female with past medical history significant for hypothyroidism, hyperlipidemia, obstructive sleep apnea, moderate persistent asthma, atrial flutter, pulmonary hypertension, chronic diastolic CHF, hypertension, paroxysmal atrial fibrillation, morbid obesity, irritable bowel syndrome with diarrhea, GERD, Sjogren's syndrome, degenerative disc disease, restless leg syndrome, migraine, iron deficiency anemia due to chronic blood loss, antiphospholipid syndrome, depression, mild intellectual disability, schizoaffective disorder bipolar, schizoaffective disorder depressive, history of suicide attempt who lives at home alone and ambulates with a rollator walker gets help with nursing aides 3 times a week and sister lives close by comes because of fall and found to have right ankle fracture. Patient says she was getting up in bed and she felt slightly dizzy which happens sometimes and fell to the right side. She hit her head but no loss of consciousness. X-rays in the ER showed fracture of the medial malleolus on the right side and status post splint in the ER. Denies any headache. Denies blurred visions. No runny nose or sore throat. No cough. No fevers. Appetite is okay. Denies chest pain. Denies shortness of breath. Denies nausea or vomiting. Denies abdominal pain. Normal bowel and bladder movements. Afebrile. Hemodynamics are okay. Closed right ankle fracture/dislocation Secondary to ground-level fall --S/P Closed Reduction, External Fixator Placement of Bimalleolar Ankle Fracture by on 10/30/24 Appreciate orthopedics input and recommendation Pain control Bowel regimen to prevent constipation Fall precautions Continue nonweightbearing right lower extremity, Out of bed with walker assistance PT OT eval Patient encouraged to elevation with increased 3 pillows while in bed Minimize narcotics given constipation Plan to discharge to SNF when accepted Needs follow-up with Dr. Haynes on discharge Remains medically stable without any significant symptoms She has been stable without any significant symptoms She will be discharged to [facility] this afternoon Hyponatremia Sodium level remains mildly low at 129 Will try sodium tablet 1 g twice daily and repeat tomorrow Her sodium level is 130 She was advised to drink up to 2000 mL of fluid a day and not more than that Will have a repeat check of PRP in about 1 week Constipation Continue bowel regimen Minimize narcotics as able Resolved Obstructive sleep apnea BiPAP HS Hypothyroidism Continue levothyroxine Hypertension On amlodipine, hydralazine, hydrochlorothiazide, losartan Hold amlodipine, reduce losartan from 100 to 50 mg for now Monitor and adjust medications as needed BP slowly improving History of A-fib On sotalol No longer on anticoagulant secondary to bleeding Hyperlipidemia Continue Crestor Depression Schizoaffective disorder History of suicide attempt Continue home medications Denies any symptoms of depression and does not have any signs and symptoms of schizophrenia Remains stable on current medications and will be discharged on those medications Likely to remain stable regarding her depression/schizoaffective disorder She does not have any depression/anxiety/schizoaffective symptoms now Chronic diastolic CHF On Spironolactone and hydrochlorothiazide Monitor for volume overload Moderate persistent asthma Continue home inhalers Morbid obesity BMI 41.6 Counseling DVT prophylaxis Lovenox SQ CODE STATUS DNI DNR Disposition SNF -today Admission and Anticipated Discharge Date Admission Date: October 30, 2024 Subjective 11/06/2024 The patient was seen and examined in medical floor She is status post trimalleolar fracture of the right ankle and status post Ortho evaluation Will need rehab placement and awaiting 11/07/2024 The patient was seen and examined in medical floor She remains stable without any significant pain or other symptoms Her electrolytes are unremarkable and sodium has been improving She will be discharged to [facility] this afternoon Review of Systems Review of Systems: all systems reviewed and are unremarkable except as noted below Physical Exam Physical Exam: Lying in bed without any acute distress Constitutional: well developed, well nourished, + ill appearing and + obese Eyes: PERRL, conjunctivae normal, anicteric sclerae ENMT: external ear and nose normal, oropharynx normal Neck: trachea midline, no thyromegaly Respiratory: no respiratory distress Auscultation: lungs clear to auscultation bilaterally Cardiovascular: Rate/Rhythm: regular rate and regular rhythm; not tachycardic Heart Sounds: normal S1 and normal S2; no murmur Extremities: + edema ( trace edema bilaterally) Gastrointestinal (Abdomen): Inspection/Auscultation: normal bowel sounds; abdomen not distended Percussion/Palpation: abdomen soft; abdomen nontender Neurologic: normal touch/pain/proprioception, moves all extremities ( except right leg) and + focal motor deficit Lymphatic: no cervical or axillary lymphadenopathy Results & Data Results & Data Vital Signs (Past 12 Hours) Vital Signs Temp Pulse Resp BP Pulse Ox O2 Del Method 11/07/24 07:12 36.8 C 66 18 124/69 98 Room Air Laboratory Results Short CBC 11/07/24 Range/Units 06:46 WBC 7.34 (4.8-10.8) K/ul Hgb 9.8 L (12.0-16.0) g/dl Hct 29.8 L (37.0-47.0) % Plt Count 210 (130-400) K/uL BMP 11/07/24 06:46 Sodium 130 L Potassium 3.4 L Chloride 93 L Carbon Dioxide 31 BUN 20 Creatinine 0.58 L Glucose 115 H Calcium 9.4 Medications Administered Current Inpatient Medications Acetaminophen (Acetaminophen 325 Mg Tab) 650 mg PO Q4H PRN PRN Reason: Mild Pain(Scale 1, 2, 3)/fever Stop: 11/29/24 06:30 Last Admin: 11/07/24 08:50 Dose: 650 mg Amlodipine Besylate (Amlodipine Besylate 5 Mg Tab) 2.5 mg PO DAILY RAVI Stop: 12/02/24 08:59 Last Admin: 11/02/24 09:25 Dose: 2.5 mg Bisacodyl (Bisacodyl 10 Mg Supp) 10 mg [place] DAILY PRN PRN Reason: Constipation Stop: 11/29/24 18:14 Buspirone HCl (Buspirone 5 Mg Tab) 10 mg PO TID RAVI Stop: 11/29/24 08:59 Last Admin: 11/07/24 08:42 Dose: 10 mg Cetirizine HCl (Cetirizine Hcl 10 Mg Tablet) 10 mg PO DAILY RAVI Stop: 11/29/24 08:59 Last Admin: 11/07/24 08:43 Dose: 10 mg Docusate Sodium (Docusate Sodium 100 Mg Cap) 100 mg PO BID RAVI Stop: 12/01/24 16:09 Last Admin: 11/07/24 08:50 Dose: 100 mg Duloxetine HCl (Duloxetine Hcl 30 Mg Cap) 30 mg PO DAILY RAVI Stop: 11/29/24 08:59 Last Admin: 11/07/24 08:44 Dose: 30 mg Enoxaparin Sodium (Enoxaparin Inj 40 Mg/0.4 Ml Syr) 40 mg SQ Q12H RAVI Stop: 11/29/24 06:59 Last Admin: 11/07/24 06:00 Dose: 40 mg Fluticasone/Vilanterol (Fluticasone/Vilanterol 200/25mcg 14 Puffs/Inhaler) 1 puffs INH DAILY [facility] Stop: 11/29/24 08:59 Last Admin: 11/07/24 08:44 Dose: 1 puffs Gabapentin (Gabapentin 300 Mg Cap) 300 mg PO HS [facility] Stop: 11/29/24 20:59 Last Admin: 11/06/24 20:23 Dose: 300 mg Hydralazine HCl (Hydralazine Hcl 25 Mg Tab) 75 mg PO TID [facility] Stop: 12/04/24 20:59 Last Admin: 11/07/24 08:40 Dose: 75 mg Hydrochlorothiazide (Hydrochlorothiazide 25 Mg Tab) 12.5 mg PO DAILY [facility] Stop: 11/29/24 08:59 Last Admin: 11/07/24 08:41 Dose: 12.5 mg Hydromorphone HCl (Hydromorphone Inj 0.5 Mg/0.5 Ml Syr) 0.25 mg IV Q4H PRN PRN Reason: Moderate Pain (Scale 4, 5, 6) Stop: 11/13/24 06:30 Hydromorphone HCl (Hydromorphone Inj 0.5 Mg/0.5 Ml Syr) 0.5 mg IV Q4H PRN PRN Reason: Severe Pain (Scale 7, 8, 9,10) Stop: 11/13/24 06:30 Last Admin: 11/06/24 19:21 Dose: 0.5 mg Lamotrigine (Lamotrigine 100 Mg Tab) 200 mg PO BID [facility]; Protocol Stop: 11/29/24 08:59 Last Admin: 11/07/24 08:43 Dose: 200 mg Levothyroxine Sodium (Levothyroxine Sodium 200 Mcg Tablet) [facility] Stop: 11/29/24 06:59 Last Admin: 11/07/24 06:03 Dose: 200 mcg Losartan Potassium (Losartan Potassium 50 Mg Tab) 50 mg PO DAILY [facility] Stop: 12/03/24 08:59 Last Admin: 11/07/24 08:45 Dose: 50 mg Magnesium Chloride (Magnesium Chloride W/Calcium 64mg Delayed Rel Tab) 64 mg PO BID [facility] Stop: 12/01/24 20:59 Last Admin: 11/07/24 08:43 Dose: 64 mg Melatonin (Melatonin 3 Mg Tab) 6 mg PO HS PRN PRN Reason: Sleep Stop: 12/06/24 20:49 Last Admin: 11/06/24 21:46 Dose: 6 mg Mirtazapine (Mirtazapine Tab 15 Mg Tab) 30 mg PO HS RAVI Stop: 11/29/24 20:59 Last Admin: 11/06/24 20:26 Dose: 30 mg Montelukast Sodium (Montelukast Sodium 10 Mg Tablet) 10 mg PO HS RAVI Stop: 11/29/24 20:59 Last Admin: 11/06/24 20:27 Dose: 10 mg Multivitamins (Multivitamin Tab) 1 tab PO QAM RAVI Stop: 11/30/24 08:59 Last Admin: 11/07/24 08:43 Dose: 1 tab Naloxone HCl (Naloxone Hcl 0.4 Mg/1 Ml Vial/Carp) 0.1 mg IV Q5M PRN PRN Reason: Oversedation/Resp Depression Stop: 11/29/24 18:14 Oxycodone HCl (Oxycodone Hcl Ir 5 Mg Tab (Immediate Release)) 5 mg PO Q6H PRN PRN Reason: Pain Stop: 11/14/24 09:01 Last Admin: 11/07/24 03:24 Dose: 5 mg Paliperidone (Paliperidone 3 Mg Tabcr) 9 mg PO DAILY RAVI Stop: 11/29/24 08:59 Last Admin: 11/07/24 08:44 Dose: 9 mg Perphenazine (Perphenazine 4 Mg Tab) 4 mg PO DAILY RAVI Stop: 11/29/24 08:59 Last Admin: 11/07/24 08:43 Dose: 4 mg Perphenazine (Perphenazine 4 Mg Tab) 8 mg PO HS RAVI Stop: 11/29/24 20:59 Last Admin: 11/06/24 20:23 Dose: 8 mg Polyethylene Glycol (Polyethylene (Miralax) 17 Gm Pack) 17 gm PO DAILY PRN PRN Reason: Constipation Stop: 11/29/24 06:30 Last Admin: 11/02/24 20:57 Dose: 17 gm Potassium Chloride (Potassium Chloride 10 Meq Tabcr) 10 meq PO DAILY RAVI Stop: 11/29/24 08:59 Last Admin: 11/07/24 08:51 Dose: 10 meq Rosuvastatin Calcium (Rosuvastatin Calcium 5 Mg Tab) 5 mg PO DAILY RAVI Stop: 11/29/24 08:59 Last Admin: 11/07/24 09:09 Dose: 5 mg Sertraline HCl (Sertraline Hcl 100 Mg Tablet) 200 mg PO DAILY RAVI Stop: 11/29/24 08:59 Last Admin: 11/07/24 09:09 Dose: 200 mg Sodium Chloride (Sodium Chloride 1 Gm Tablet) 1 gm PO BID RAVI Stop: 12/06/24 20:59 Last Admin: 11/07/24 08:47 Dose: 1 gm Sotalol HCl (Sotalol Hcl 80 Mg Tab) 40 mg PO BID RAVI Stop: 11/29/24 08:59 Last Admin: 11/07/24 08:39 Dose: 40 mg Spironolactone (Spironolactone 25 Mg Tab) 25 mg PO DAILY RAVI Stop: 11/29/24 08:59 Last Admin: 11/07/24 08:47 Dose: 25 mg Tizanidine HCl (Tizanidine Hcl 4 Mg Tablet) 4 mg PO TID PRN PRN Reason: Muscle Spasm Stop: 11/29/24 06:30 Last Admin: 11/07/24 08:40 Dose: 4 mg Vibegron (Vibegron 75 Mg Tab) 75 mg PO HS RAVI Stop: 11/29/24 20:59 Last Admin: 11/06/24 20:30 Dose: 75 mg
[2024-11-07 13:53] VITALS: BP 113/65
== END 2024-11-07 14:16 | DRG 563 ==
LOC: ED 00:20 → SUATTDRO 04:56 → 3N 04:56

== ENCOUNTER 2024-11-20 10:37 | Observation (INO) ==
--- NOTE | 2024-11-15 13:37 | PAT Medication Instructions ---
Medication Instructions Date of Service November 15, 2024 Home Medications Medication Instructions Recorded amlodipine 5 mg tablet 2.5 mg (1/2 x 5 mg) PO DAILY #0 11/07/24 tabs enoxaparin 40 mg/0.4 mL 40 mg (0.4 mL) subcut Q12H #4 mL 11/07/24 subcutaneous syringe (Lovenox) Breo Ellipta 1 puff inhalation QAM buspirone 10 mg tablet 10 mg PO TID duloxetine 30 mg capsule,delayed release 30 mg PO QAM gabapentin 300 mg capsule 300 mg PO HS hydralazine 25 mg tablet 75 mg PO TID hydrochlorothiazide 12.5 mg tablet 12.5 mg PO DAILY lamotrigine 200 mg tablet (Lamictal) 200 mg PO BID levocetirizine 5 mg tablet 5 mg PO QAM levothyroxine 200 mcg tablet 200 mcg PO DAILY mirabegron 50 mg tablet,extended release 24 hr 50 mg PO HS mirtazapine 30 mg tablet 30 mg PO HS montelukast 10 mg tablet 10 mg PO HS paliperidone 9 mg tablet,extended release 24 hr 9 mg PO DAILY perphenazine 4 mg tablet 4 mg PO DAILY perphenazine 8 mg tablet 8 mg PO HS potassium chloride 10 mEq tablet,extended release 10 meq PO DAILY rosuvastatin 5 mg tablet 5 mg PO DAILY sertraline 100 mg tablet 200 mg PO DAILY sotalol 80 mg tablet 40 mg PO BID spironolactone 25 mg tablet 25 mg PO DAILY tizanidine 4 mg capsule 4 mg PO TID PRN amlodipine 5 mg tablet 2.5 mg (1/2 x 5 mg) PO DAILY enoxaparin 40 mg/0.4 mL subcutaneous syringe (Lovenox) 40 mg (0.4 mL) subcut Q12H bisacodyl 10 mg rectal suppository (Dulcolax (bisacodyl)) 10 mg [place] DAILY PRN cholecalciferol (vitamin D3) 125 mcg (5,000 unit) tablet (Vitamin D3) 125 mcg PO WK fluticasone 250 mcg-salmeterol 50 mcg/dose blistr powdr for inhalation 1 inh inhalation BID glycerin (adult) (Fleet Glycerin (Adult) rectal suppository) 1 supp [place] DAILY PRN losartan 25 mg tablet 50 mg PO QAM magnesium hydroxide 400 mg/5 mL oral suspension (Milk of Magnesia) 400 mg PO DAILY PRN melatonin 5 mg tablet 5 mg PO HS oxycodone 5 mg tablet 5 mg PO Q6H PRN Continue as directed levothyroxine 200 mcg tablet 200 mcg PO DAILY paliperidone 9 mg tablet,extended release 24 hr 9 mg PO DAILY perphenazine 4 mg tablet 4 mg PO DAILY rosuvastatin 5 mg tablet 5 mg PO DAILY sertraline 100 mg tablet 200 mg PO DAILY amlodipine 5 mg tablet 2.5 mg (1/2 x 5 mg) PO DAILY ASK your prescriber and surgeon enoxaparin 40 mg/0.4 mL subcutaneous syringe (Lovenox) 40 mg (0.4 mL) subcut Q12H DO NOT take the morning of surgery hydrochlorothiazide 12.5 mg tablet 12.5 mg PO DAILY levocetirizine 5 mg tablet 5 mg PO QAM potassium chloride 10 mEq tablet,extended release 10 meq PO DAILY spironolactone 25 mg tablet 25 mg PO DAILY bisacodyl 10 mg rectal suppository (Dulcolax (bisacodyl)) 10 mg [place] DAILY PRN cholecalciferol (vitamin D3) 125 mcg (5,000 unit) tablet (Vitamin D3) 125 mcg PO WK glycerin (adult) (Fleet Glycerin (Adult) rectal suppository) 1 supp [place] DAILY PRN losartan 25 mg tablet 50 mg PO QAM magnesium hydroxide 400 mg/5 mL oral suspension (Milk of Magnesia) 400 mg PO DAILY PRN Take morning of surgery With a small sip of water, OTHERWISE NOTHING TO EAT OR DRINK AFTER MIDNIGHT: Breo Ellipta 1 puff inhalation QAM buspirone 10 mg tablet 10 mg PO TID duloxetine 30 mg capsule,delayed release 30 mg PO QAM hydralazine 25 mg tablet 75 mg PO TID lamotrigine 200 mg tablet (Lamictal) 200 mg PO BID sotalol 80 mg tablet 40 mg PO BID tizanidine 4 mg capsule 4 mg PO TID PRN(if needed) fluticasone 250 mcg-salmeterol 50 mcg/dose blistr powdr for inhalation 1 inh inhalation BID oxycodone 5 mg tablet 5 mg PO Q6H PRN(if needed) Take evening before surgery buspirone 10 mg tablet 10 mg PO TID gabapentin 300 mg capsule 300 mg PO HS hydralazine 25 mg tablet 75 mg PO TID hydrochlorothiazide 12.5 mg tablet 12.5 mg PO DAILY lamotrigine 200 mg tablet (Lamictal) 200 mg PO BID mirabegron 50 mg tablet,extended release 24 hr 50 mg PO HS mirtazapine 30 mg tablet 30 mg PO HS montelukast 10 mg tablet 10 mg PO HS perphenazine 8 mg tablet 8 mg PO HS sotalol 80 mg tablet 40 mg PO BID tizanidine 4 mg capsule 4 mg PO TID PRN(if needed) fluticasone 250 mcg-salmeterol 50 mcg/dose blistr powdr for inhalation 1 inh inhalation BID melatonin 5 mg tablet 5 mg PO HS oxycodone 5 mg tablet 5 mg PO Q6H PRN(if needed) Other Notes If you have any questions please call us at [phone] or [phone] or [phone] or [phone]
--- NOTE | 2024-11-15 13:48 | Anesthesiology Consultation ---
Date of Service November 15, 2024 Assessment & Plan (1) Encounter for pre-operative examination: - Case discussed in detail with Dr. Castellanos given previous notation on elevated catecholamines without completion of abdomen MRI which was advised at 06/2020 discharge from [facility] during admission for hypertensive emergency. He advised patient can proceed and nothing further is needed from his standpoint. [facility] for [facility] of care. - [facility] final hospitalist note prior to discharge 11/07/24: "...lives at home alone and ambulates with a rollator walker gets help with nursing aides 3 times a week and sister lives close by comes because of fall and found to have right ankle fracture...felt slightly dizzy which happens sometimes and fell to the right side. She hit her head but no loss of consciousness. X-rays in the ER showed fracture of the medial malleolus on the right side and status post splint in the ER...discharged to [facility] this afternoon. Hyponatremia. Sodium level remains mildly low at 129...sodium level is 130...Obstructive sleep apnea. BiPAP HS...Depression. Schizoaffective disorder. 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 Chart Review Chart Review: Acceptable Risk for Surgery (pending assigned anesthesiologist review of chart and patient evaluation am DOS) and Patient NOT seen in Pre Admission Testing History Surgery Operation Date: 11/20/24 12:00 Proposed Procedures p Right Ankle Removal of Fixator, Right Ankle Open Reduction Internal Fixation - Jose Haynes DO Height/Weight Height: 5 ft 7 in Weight: 119.839 kg Allergies Allergy/AdvReac Type Severity Reaction Status Date / Time adhesive Allergy Intermediate Rash Verified 11/20/24 10:55 Hydantoins Allergy Intermediate Hives Verified 11/20/24 10:55 ethyl alcohol AdvReac Severe Seizure Verified 11/20/24 10:55 thioridazine AdvReac Severe seizures Verified 11/20/24 10:55 phenytoin AdvReac Intermediate Nausea Verified 11/20/24 10:55 Medications Home Medications Medication Instructions Recorded Confirmed Last Taken Carissa Hwangta 1 puff inhalation [facility] 10/30/24 11/15/24 Unknown buspirone 10 mg tablet 10 mg PO TID 10/30/24 11/15/24 Unknown duloxetine 30 mg capsule,delayed 30 mg PO [facility] 10/30/24 11/15/24 Unknown release gabapentin 300 mg capsule 300 mg PO 10/30/24 11/15/24 Unknown hydralazine 25 mg tablet 75 mg PO TID 10/30/24 11/15/24 Unknown hydrochlorothiazide 12.5 mg tablet 12.5 mg PO DAILY 10/30/24 11/15/24 Unknown lamotrigine 200 mg tablet 200 mg PO BID 10/30/24 11/15/24 Unknown (Lamictal) levocetirizine 5 mg tablet 5 mg PO [facility] 10/30/24 11/15/24 Unknown levothyroxine 200 mcg tablet 200 mcg PO DAILY 10/30/24 11/15/24 Unknown mirabegron 50 mg tablet,extended 50 mg PO 10/30/24 11/15/24 Unknown release 24 hr mirtazapine 30 mg tablet 30 mg PO 10/30/24 11/15/24 Unknown montelukast 10 mg tablet 10 mg PO 10/30/24 11/15/24 Unknown paliperidone 9 mg tablet,extended 9 mg PO DAILY 10/30/24 11/15/24 Unknown release 24 hr perphenazine 4 mg tablet 4 mg PO DAILY 10/30/24 11/15/24 Unknown perphenazine 8 mg tablet 8 mg PO 10/30/24 11/15/24 Unknown potassium chloride 10 mEq 10 meq PO DAILY 10/30/24 11/15/24 Unknown tablet,extended release rosuvastatin 5 mg tablet 5 mg PO DAILY 10/30/24 11/15/24 Unknown sertraline 100 mg tablet 200 mg PO DAILY 10/30/24 11/15/24 Unknown sotalol 80 mg tablet 40 mg PO BID 10/30/24 11/15/24 Unknown spironolactone 25 mg tablet 25 mg PO DAILY 10/30/24 11/15/24 Unknown tizanidine 4 mg capsule 4 mg PO TID PRN Muscle Spasm 10/30/24 11/15/24 Unknown amlodipine 5 mg tablet 2.5 mg (1/2 x 5 mg) PO DAILY #0 11/07/24 11/15/24 Unknown tabs enoxaparin 40 mg/0.4 mL 40 mg (0.4 mL) subcut Q12H #4 mL 11/07/24 11/15/24 Unkno wn subcutaneous syringe (Lovenox) bisacodyl 10 mg rectal suppository 10 mg [place] DAILY PRN Constipation 11/15/24 11/15/24 Unknown (Dulcolax (bisacodyl)) cholecalciferol (vitamin D3) 125 125 mcg PO WK 11/15/24 11/15/24 Unknown mcg (5,000 unit) tablet (Vitamin D3) fluticasone 250 mcg-salmeterol 50 1 inh inhalation BID 11/15/24 11/15/24 Unknown mcg/dose blistr powdr for inhalation glycerin (adult) (Fleet Glycerin 1 supp [place] DAILY PRN Constipation 11/15/24 11/15/24 Unknown (Adult) rectal suppository) losartan 25 mg tablet 50 mg PO QAM 11/15/24 11/15/24 Unknown magnesium hydroxide 400 mg/5 mL 400 mg PO DAILY PRN Constipation 11/15/24 11/15/24 Unknown oral suspension (Milk of Magnesia) melatonin 5 mg tablet 5 mg PO HS 11/15/24 11/15/24 Unknown oxycodone 5 mg tablet 5 mg PO Q6H PRN Pain 11/15/24 11/15/24 Unknown acetaminophen 325 mg tablet 650 mg PO QID PRN Pain 11/20/24 11/20/24 11/15/24 07:39 Active Medications Generic Name Dose Route Start Last Admin Trade Name Freq PRN Reason Stop Dose Admin Lactated Ringer's 1,000 mls @ 15 mls/hr 11/20/24 06:00 11/20/24 10:55 Lr IV 11/21/24 05:59 15 mls/hr .Q24H RAVI Administration Past Medical History Medical History High catecholamines entered into EMR 06/16/20. Per [facility] discharge summary 06/08/20 "...plasma metanephrines came back elevated and further work-up with an abdominal MRI was recommended as the CT abdomen pelvis did not show any localized anatomic source. Abdominal MRI will be more sensitive to locate this. I discussed this with the patient and this can be ordered as outpatient..." Paroxysmal A-fib Schizoaffective disorder Hypertension Barlow catheter status Falls Suicidal ideation entered into EMR 07/16/24 Dyspnea Anxiety and depression Nausea and vomiting Morbid obesity Bipolar 1 disorder Osteoarthritis Fibromyalgia Spinal stenosis Degenerative disc disease Chronic back pain GERD (gastroesophageal reflux disease) Hypothyroidism Migraine Sleep apnea cpap Epilepsy hx of x2, last one in 1989' IBS (irritable bowel syndrome) Past Family History Family History Father Family history of diabetes mellitus Coronary heart disease Mother Lung cancer Sister Alive and well Brother Alive and well Other No family history of adverse response to anesthesia Past Surgical History Surgical History History of ankle surgery right Nausea and vomiting after administration of anesthetic agent History of cataract surgery RT/LEFT History of total abdominal hysterectomy and bilateral salpingo-oophorectomy S/P foot surgery, left X2 History of carpal tunnel release LEFT Status post lumbar spine surgery for decompression of spinal cord + RODS History of colonoscopy History of cholecystectomy History of tooth extraction ALL UPPER TEETH EXTRACTIONS History of tonsillectomy and adenoidectomy History of endoscopic sinus surgery Social History Smoking Status: Never smoker tobacco type: cigarettes substance use type: does not use Physical Exam Vital Signs Last Vital Signs Temp 36.6 C 11/20/24 10:56 Pulse 64 11/20/24 10:56 Resp 18 11/20/24 10:56 BP 157/89 H 11/20/24 10:56 Pulse Ox 97 11/20/24 10:56 O2 Del Method Room Air 11/20/24 10:56 Lab Results Anesthesia Preop Results Results Anesthesia Widget: WBC 9.36 K/ul (4.8-10.8) 11/13/24 Hgb 10.8 g/dl (12.0-16.0) L 11/13/24 Hct 33.6 % (37.0-47.0) L 11/13/24 Plt 261 K/uL (130-400) 11/13/24 Na 132 mmol/L (136-145) L 11/13/24 K 3.7 mmol/L (3.5-5.1) 11/13/24 Cl 97 mmol/L (98-107) L 11/13/24 CO2 31 mmol/L (21-32) 11/13/24 BUN 16 mg/dl (6-23) 11/13/24 Creat 0.53 mg/dl (0.6-1.2) L 11/13/24 Glucose Level 86 mg/dl (70-99(Fasting)) 11/13/24 PT 10.1 Seconds (9.0-12.0) 10/30/24 PTT 25 Seconds (21-31) 10/30/24 INR 0.9 (0.9-1.1) 10/30/24 Urine Color Yellow 10/30/24 Urine Appearance Clear (Clear) 10/30/24 Urine pH 6.0 (4.5-7.5) 10/30/24 Urine Specific [place] 1.011 (1.000-1.030) 10/30/24 Urine Protein Negative (Negative) 10/30/24 Urine Glucose (UA) Negative (Negative) 10/30/24 Urine Ketones Negative (Negative) 10/30/24 Urine Blood Negative (Negative) 10/30/24 Urine Nitrite Negative (Negative) 10/30/24 Urine Bilirubin Negative (Negative) 10/30/24 Urine Urobilinogen Negative (Negative) 10/30/24 Urine Leukocyte Esterase Negative (Negative) 10/30/24 SARS-CoV-2, RNA, NAAT NEGATIVE (NEGATIVE) 11/20/24 Testing Electrocardiogram Date: 10/30/24 NSR, rate 80 bpm Chest X-Ray Date: 10/30/24 *1 view* 1. Blunting of left costophrenic angle, could represent minimal pleural effusion/thickenning (unchanged). 2. No gross airspace opacities. Echocardiogram Date: 02/03/22 EF 63% Normal LV systolic function without regional wall motion abnormalities Borderline cLVH Grade 2 diastolic dysfunction No significant valvular pathology PASP 36 mmHg
[~2024-11-20 10:37] MED LIST changes: -CEFAZOLIN 3000MG 65 ML IV SCH; -LR 15ML/HR IV SCH; +ROPIVACAINE 0.5% 5 MG/ML 30 ML VIAL ONE
[2024-11-20] MEDS: LR 15ML/HR IV SCH (10:55)
[2024-11-20] MEDS ORDERED: ONDANSETRON INJ 2 MG/ML 2 ML VIAL ONE (11:18)
[2024-11-20] MEDS ORDERED: PROPOFOL IV EMULSION 10 MG/ML 20 ML VIAL IV ONE (11:18)
[2024-11-20] MEDS ORDERED: fentaNYL citrate PF 100 MCG/2 ML VIAL ONE ×3 (11:18→14:30)
[2024-11-20] MEDS ORDERED: MIDAZOLAM HCL 1 MG/ML 2ML VIAL ONE ×2 (11:18→11:25)
[2024-11-20] MEDS ORDERED: ROCURONIUM BROMIDE 10 MG/ML 5 ML VIAL IV ONE (11:18)
[2024-11-20] MEDS ORDERED: DEXAMETHASONE SOD INJ 4 MG/ML VIAL ONE (11:18)
[2024-11-20] MEDS ORDERED: ATROPINE SULFATE 0.1 MG/ML 10ML SYR IV PRN (11:37)
[2024-11-20] MEDS ORDERED: ONDANSETRON INJ 2 MG/ML 2 ML VIAL IV PRN (11:37)
[2024-11-20] MEDS ORDERED: HYDROmorphone INJ 1 MG/ML SYRINGE IV PRN (11:37)
[2024-11-20] MEDS ORDERED: fentaNYL citrate PF 100 MCG/2 ML VIAL IV PRN (11:37)
[2024-11-20] MEDS ORDERED: ePHEDrine sulfate 50 MG/ML AMP IV PRN (11:37)
--- NOTE | 2024-11-20 12:03 | History & Physical Bridge Note ---
Date of Service November 20, 2024 History & Physical Bridge Note I have examined the patient, reviewed the History & Physical and in the interval since the performance of the History & Physical I have noted the following changes of clinical significance: Ana is a 59-year-old female who presents today for definitive management of her right ankle fracture. In early October she sustained a bimalleolar right ankle fracture requiring external fixation by Dr. Solano. He asked me to help definitively manage this patient. We have been watching her medial soft tissues as there was a very large fracture blister which has finally healed. At this point, she does have a positive wrinkle sign and healed medial fracture blister, so as such surgical passages safe enough to proceed with definitive management. I once again discussed with her the risks and benefits of this procedure. We discussed in great detail the risks which include but not limited to loss of life/limb, DVT, incomplete relief plain, posttraumatic osteoarthrosis, need for additional surgery, nonunion, malunion, hardware complication, hardware failure. We also discussed that due to her history of having this soft tissue ulcer as well as her significant past medical history, she is at a very high risk for perioperative complications and she expressed understanding to this. The alternative to surgical management would be for nonoperative care with the external fixator remaining in place, but I believe the risk of nonunion or chico nion is much higher in this scenario. After thorough discussion of the risk, benefits, alternatives, the patient has signed informed and consent is in agreeable to proceed with operative management. Surgical plan: Right ankle removal of external fixator with open reduction internal fixation and application below-knee splint As the patient is currently at an assisted living facility and arranging transportation postoperatively we be difficult, she will be admitted overnight for observation and return to her long term facility tomorrow.
--- NOTE | 2024-11-20 12:20 | History & Physical Report ---
Date of Service November 20, 2024 Assessment & Plan (1) Trimalleolar fracture of right ankle: (2) Ambulatory dysfunction: (3) Psychosocial stressors: (4) History of seizure: (5) Asymptomatic hypertensive urgency: (6) Dyspnea on minimal exertion: (7) Symptomatic anemia: (8) Hyponatremia: (9) Anemia: Anemia type: iron deficiency Iron deficiency anemia type: other iron deficiency Qualified Code(s): D50.8 - Other iron deficiency anemias (10) RLS (restless legs syndrome): (11) MAURO (obstructive sleep apnea): (12) Chronic diastolic (congestive) heart failure: (13) Positive SOFIA (antinuclear antibody): (14) Morbid obesity: (15) Severe hypertension: Plan Ana is a 59-year-old female who presents today for definitive management of her right ankle fracture. In early October she sustained a bimalleolar right ankle fracture requiring external fixation by Dr. Solano. He asked me to help definitively manage this patient. We have been watching her medial soft tissues as there was a very large fracture blister which has finally healed. At this point, she does have a positive wrinkle sign and healed medial fracture blister, so as such surgical passages safe enough to proceed with definitive management. I once again discussed with her the risks and benefits of this procedure. We discussed in great detail the risks which include but not limited to loss of life/limb, DVT, incomplete relief plain, posttraumatic osteoarthrosis, need for additional surgery, nonunion, malunion, hardware complication, hardware failure. We also discussed that due to her history of having this soft tissue ulcer as well as her significant past medical history, she is at a very high risk for perioperative complications and she expressed understanding to this. The al ternative to surgical management would be for nonoperative care with the external fixator remaining in place, but I believe the risk of nonunion or malunion is much higher in this scenario. After thorough discussion of the risk, benefits, alternatives, the patient has signed informed and consent is in agreeable to proceed with operative management. Surgical plan: Right ankle removal of external fixator with open reduction internal fixation and application below-knee splint As the patient is currently at an assisted living facility and arranging transportation postoperatively we be difficult, she will be admitted overnight for observation and return to her residential facility tomorrow. History of Present Illness Chief Complaint: right ankle fracture Primary Care Provider: Brian Salas DO 59-year-old female originally seen by Dr. Solano in early October after she sustained a bimalleolar ankle fracture/dislocation requiring placement of external fixator. Dr. Solano contacted me for further and definitive evaluation and fixation. We have been following the patient's soft tissues closely over the past few weeks because she had a very large medial sided blister that has now finally healed. She presents today for surgical fixation. Patient does have a very long history with regards to past medical history including morbid obesity, hypertension, bipolar disorder, dyslipidemia, positive SOIFA, obstructive sleep apnea, congestive heart failure. Prior to the fall she was living alone at home. Allergies Allergy/AdvReac Type Severity Reaction Status Date / Time adhesive Allergy Intermediate Rash Verified 11/20/24 10:55 Hydantoins Allergy Intermediate Hives Verified 11/20/24 10:55 ethyl alcohol AdvReac Severe Seizure Verified 11/20/24 10:55 thioridazine AdvReac Severe seizures Verified 11/20/24 10:55 phenytoin AdvReac Intermediate Nausea Verified 11/20/24 10:55 Home Medications Medication Instructions Recorded Confirmed Type Breo Ellipta 1 puff inhalation QAM 10/30/24 11/20/24 History buspirone 10 mg tablet 10 mg PO TID 10/30/24 11/20/24 History duloxetine 30 mg capsule,delayed 30 mg PO QAM 10/30/24 11/20/24 History release gabapentin 300 mg capsule 300 mg PO HS 10/30/24 11/20/24 History hydralazine 25 mg tablet 75 mg PO TID 10/30/24 11/20/24 History hydrochlorothiazide 12.5 mg tablet 12.5 mg PO DAILY 10/30/24 11/20/24 History lamotrigine 200 mg tablet 200 mg PO BID 10/30/24 11/20/24 History (Lamictal) levocetirizine 5 mg tablet 5 mg PO QAM 10/30/24 11/20/24 History levothyroxine 200 mcg tablet 200 mcg PO DAILY 10/30/24 11/20/24 History mirabegron 50 mg tablet,extended 50 mg PO HS 10/30/24 11/20/24 History release 24 hr mirtazapine 30 mg tablet 30 mg PO HS 10/30/24 11/20/24 History montelukast 10 mg tablet 10 mg PO HS 10/30/24 11/20/24 History paliperidone 9 mg tablet,extended 9 mg PO DAILY 10/30/24 11/20/24 History release 24 hr perphenazine 4 mg tablet 4 mg PO DAILY 10/30/24 11/20/24 History perphenazine 8 mg tablet 8 mg PO HS 10/30/24 11/20/24 History potassium chloride 10 mEq 10 meq PO DAILY 10/30/24 11/20/24 History tablet,extended release rosuvastatin 5 mg tablet 5 mg PO DAILY 10/30/24 11/20/24 History sertraline 100 mg tablet 200 mg PO DAILY 10/30/24 11/20/24 History sotalol 80 mg tablet 40 mg PO BID 10/30/24 11/20/24 History spironolactone 25 mg tablet 25 mg PO DAILY 10/30/24 11/20/24 History tizanidine 4 mg capsule 4 mg PO TID PRN Muscle Spasm 10/30/24 11/20/24 History amlodipine 5 mg tablet 2.5 mg (1/2 x 5 mg) PO DAILY #0 11/07/24 11/20/24 Rx tabs enoxaparin 40 mg/0.4 mL 40 mg (0.4 mL) subcut Q12H #4 mL 11/07/24 11/20/24 Rx subcutaneous syringe (Lovenox) bisacodyl 10 mg rectal suppository 10 mg GA DAILY PRN Constipation 11/15/24 11/20/24 History (Dulcolax (bisacodyl)) cholecalciferol (vitamin D3) 125 125 mcg PO WK 11/15/24 11/20/24 History mcg (5,000 unit) tablet (Vitamin D3) fluticasone 250 mcg-salmeterol 50 1 inh inhalation BID 11/15/24 11/20/24 History mcg/dose blistr powdr for inhalation glycerin (adult) (Fleet Glycerin 1 supp GA DAILY PRN Constipation 11/15/24 11/20/24 History (Adult) rectal suppository) losartan 25 mg tablet 50 mg PO QAM 11/15/24 11/20/24 History magnesium hydroxide 400 mg/5 mL 400 mg PO DAILY PRN Constipation 11/15/24 11/20/24 History oral suspension (Milk of Magnesia) melatonin 5 mg tablet 5 mg PO HS 11/15/24 11/20/24 History oxycodone 5 mg tablet 5 mg PO Q6H PRN Pain 11/15/24 11/20/24 History acetaminophen 325 mg tablet 650 mg PO QID PRN Pain 11/20/24 11/20/24 History Past Med/Surg History Problem List Trimalleolar fracture of right ankle Bimalleolar avulsion fracture of right ankle Ambulatory dysfunction (Acute) Closed right ankle fracture Psychosocial stressors History of seizure Asymptomatic hypertensive urgency Dyspnea on minimal exertion (Acute) Symptomatic anemia (Acute) Encounter for pre-operative examination Hyponatremia Anemia (Acute) RLS (restless legs syndrome) MAURO (obstructive sleep apnea) Chronic diastolic (congestive) heart failure Positive SOFIA (antinuclear antibody) History of iron deficiency anemia (Acute) Sacroiliac joint pain Lumbar post-laminectomy syndrome Lumbar pain with radiation down both legs Chronic back pain Morbid obesity Severe hypertension (Acute) Intractable vomiting with nausea (Acute) Asthma rare res inh use Dyslipidemia Bipolar I disorder (Chronic 01/14/13) Medical History High catecholamines entered into EMR 06/16/20. Per [facility] discharge summary 06/08/20 "...plasma metanephrines came back elevated and further work-up with an abdominal MRI was recommended as the CT abdomen pelvis did not show any localized anatomic source. Abdominal MRI will be more sensitive to locate this. I discussed this with the patient and this can be ordered as outpatient..." Paroxysmal A-fib Schizoaffective disorder Hypertension Barlow catheter status Falls Suicidal ideation entered into EMR 07/16/24 Dyspnea Anxiety and depression Nausea and vomiting Morbid obesity Bipolar 1 disorder Osteoarthritis Fibromyalgia Spinal stenosis Degenerative disc disease Chronic back pain GERD (gastroesophageal reflux disease) Hypothyroidism Migraine Sleep apnea cpap Epilepsy hx of x2, last one in s IBS (irritable bowel syndrome) Surgical History History of ankle surgery right Nausea and vomiting after administration of anesthetic agent History of cataract surgery RT/LEFT History of total abdominal hysterectomy and bilateral salpingo-oophorectomy S/P foot surgery, left X2 History of carpal tunnel release LEFT Status post lumbar spine surgery for decompression of spinal cord + RODS History of colonoscopy History of cholecystectomy History of tooth extraction ALL UPPER TEETH EXTRACTIONS History of tonsillectomy and adenoidectomy History of endoscopic sinus surgery Family History Father Family history of diabetes mellitus Coronary heart disease Mother Lung cancer Sister Alive and well Brother Alive and well Other No family history of adverse response to anesthesia Social History Smoking Status: Never smoker Tobacco Type: Cigarettes Preferred Language: Kyrgyz Communication Ability: Effective Visual Impairment: No Limitations 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: Normal Ict 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 Patient does have soft tissue wrinkles noted both laterally and medially. The previously noted medial fracture blister has now completely healed. Constitutional: AAO x 3 Respiratory: Auscultation: lungs clear to auscultation bilaterally Cardiovascular: Heart Sounds: normal S1 and normal S2 Gastrointestinal (Abdomen): Nontender to palpation Results & Data Vital Signs (Past 12 Hours) Vital Signs Temp Pulse Resp BP Pulse Ox O2 Del Method 11/20/24 10:56 36.6 C 64 18 157/89 H 97 Room Air Diagnostic Findings X-rays and CT scan of the right ankle person interpreted and reviewed. This demonstrates a Reyna B distal fibula fracture with associated medial malleolus fracture that is quite comminuted. There is also a small posterior malleolus fracture. It is currently reduced as it sits in the external fixator.
[2024-11-20] MEDS: ceFAZolin 3000MG 3,000 MG/72.5 ML BAG IV SCH (12:25)
[2024-11-20] MEDS ORDERED: ePHEDrine sulfate 50 MG/5 ML SYR ONE (12:46)
[2024-11-20] MEDS ORDERED: GLYCOPYRROLATE 0.2 MG/ML VIAL ONE (13:47)
[2024-11-20] MEDS ORDERED: SUGAMMADEX SODIUM 200 MG/2 ML VIAL IV ONE (14:45)
[2024-11-20] MEDS: BUPIVACAINE 0.5 % 5 MG/1 ML MPF 30ML VIAL ONE (15:03)
--- NOTE | 2024-11-20 15:22 | Fluoroscopy Report ---
FL ankle RT min 3V RTN CLINICAL HISTORY: RIGHT ANKLE ORIF/REMOVAL OF FIXATOR COMPARISON STUDY: Right ankle radiographs October 30, 2024. Right ankle CT November 06, 2024. Fluoroscopy time: 1.52 minutes. Number of fluoroscopic images: 17 Ka,r: 2.8490 mGy. FINDINGS: Fluoroscopy was provided during removal of the fixator and subsequent open reduction and in ternal fixation of the right ankle bimalleolar fracture. Fracture alignment has improved and appears anatomic. Hardware is intact. No ankle mortise widening is present. There are no unexpected radiopaqu e foreign bodies. IMPRESSION: Fluoroscopy provided during removal of the fixator and subsequent open reduction and int ernal fixation of the right ankle bimalleolar fracture. ACT 112: Negative or not required by law. Electronically signed by: John Daley M.D. 11/20/2024 3:21 PM
--- OUTSIDE RECORDS SUMMARY | 2024-11-20 16:15 | External Medical Summary | Summary of Care ---
Author Name Unknown Organization [facility] Address [address] [place] [address] Phone [phone] Care Team Providers Care Home Health Care Provider Name Role Phone Brian Salas DO Primary Care Provider [phone] Reason for Visit * Reason Onset Date Comments Med Request 11/19/2024 Encounter Details Date Type Department Care Team (Late st Contact Info) Description 11/19/2024 Telephone Family Practice [facility] [place] [address] [facility] [place] [address] Brian Salas DO [address] [facility] [place], [place] [address] Med Request Allergies Active Allergy Reactions Criticality [...] as of this encounter (statuses as of 11/20/2024) Medications lamoTRIgine (LAMICTAL) 200 MG TabletIndications:S chizoaffective [...] in other diseases classified elsewhere ([facility]) Take 1 Cap by mouth at bedtime. 30 Cap 5 05/11/20 21 Active Sertraline HCl 100 MG Oral Tablet (Zoloft)Indications :Major depressive disorder with single episode, in partial remission ([facility]) Take 1 Tab by mouth daily. 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 current use of ant icoagulant therapy 08/31/2010 [...] as of this encounter (statuses as of 11/20/2024) Immunizations Name Administration Dates Next Due COVID-19 mRNA, LNP-s, No Pre serve, 2-Dose Series (Moderna) 11/03/2020,10/06/2020 COVID-19 mRNA, LNP-s, No Pre serve, 2-Dose Series (Pfizer) 06/08/2021 Covid-19, Mrna, Lnp-s, Pf, B ivalent, 30 Mcg, IM, 12 yrs and above (Pfizer) 05/05/2022 H1N1 2009 Influenza, IM 08/15/2009 Hepatitis B, 20+ yrs 01/16/2014,04/06/2013,03/05 PPD 02/27/2013 Pneumococcal Conjugate Vacci ne, 20-valent ([id number]) 03/05/2022 Pneumococcal Polysaccharide PPV23 (Pneumovax) 03/31/2009 Seasonal [...] encounter Miscellaneous Notes * Telephone Encounter - Salomón Phillips PHARM Tech - 11/19/2024 4:56 PM EDT [facility] called in to clarify if we received fax request, [facility]si requested fax back at [phone], callback number is [phone]. Thank you, Salomón Phillips Dragline Mechanic [facility] [address] [place] [address], [address] [place] [address] [phone] 11/19/2024, 4:57 PM documented in this encounter Plan of Treatment Upcoming Encounters Date Type Department Care Team (Late st Contact Info) Description 03/12/2025 11:20 AM EDT Office Visit Sleep Disorders Ctr [facility] [address] [place] [phone] Charlette Brannon, DO [address] [place] [address] 04/09/2025 8:30 AM EDT Office Visit Pulmonary Medicine, [facility] [address] [place] [phone] Yo Abreu MD [address] [facility] [place] [address] 05/21/2025 9:25 AM EDT Office Visit Urogynecology [facility] [address] [place] [address] Del Baron MD [address] [place] [address] Nurse Trae Tucker [facility] [address] [place] [address] 06/04/2025 8:20 AM EST Office Visit Family Practice [facility] [address] [facility] [place] [address] Brian Salas, DO [address] [facility] [place] [address] 08/22/2025 8:30 AM EST Office Visit Cardiology, [facility] [address] [place] [phone] Griselda Cody CRNP [address] [place] [address] Scheduled Procedures Name Priority Associated Diagnoses Date/Ti me COLONOSCOPY FLEXIBLE PROXIMA L DIAGNOSTIC Recall Special screening for malignant neoplasms, colon Health Maintenance Due Date Last Done Comments Cologuard 2008 Fecal Occult Blood Test 2008 Sigmoidoscopy 2008 DTap/Tdap Vaccines (2 - Td or Tdap) 08/19/2021 08/19/2011 COVID-19 Vaccine (6 - 2024-25 season) 2024 06/19/2023, 05/05/2022, 06/08/2021, Additional history exists Mammogram 04/19/2024 04/19/2023, 04/01, 03/22/2023, Additional history exists TSH 05/15/2025 05/15/2024, 10/30, 12/13/2022, Additional history exists GFR 07/18/2025 07/18/2024, 06/02, 06/13/2024, Additional history exists Depression Monitoring 10/16/2025 10/16/2024 Albumin/Creatinine Ratio 12/13/2025 12/13/2022 Diabetes Screening 07/18/2027 07/18/2024, 1 08/20/2023, 06/13/2024, Additional history exists Lipid Panel 07/18/2029 07/18/2024, 09/01, 06/05/2021, Additional history exists Colonoscopy 12/04/2031 12/03/2021, 05/0 [...] Documents on File Type Date Recorded 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
--- NOTE | 2024-11-20 16:17 | Operative Report ---
Post Operative Report Pre & Post Diagnosis Operation Date: 11/20/24 12:00 Pre-Op Diagnosis: Closed Fracture of Distal End of Right Fibular Post-Op Diagnosis: Closed Fracture of Distal End of Right Fibular and Medial Malleolus I identified the patient and participated in the time-out.: Yes Procedure Operation Date: 11/20/24 12:00 Actual Procedures p Right Ankle Removal of Fixator, Right Ankle Open Reduction Internal Fixation, Bimalleolar Ankle Fracture, Application of Below Knee Splint, Physician Directed Fluoroscopy Greater then 1 Hour(Left) - Jose Haynes DO 1. Right ankle removal of external fixator 2. Right ankle open reduction internal fixation bimalleolar ankle fracture 3. Physician directed fluoroscopy greater than 1 hour 4. Application right below-knee splint Modifier 22: Due to the morbid obesity of this patient and significant soft tissue injury specifically on the medial side, extra care and attention were needed during the times of dissection. The total time of this procedure for careful dissection through fat planes as well as careful closure in the area of the previous medial sided skin wound necessitated extra time Surgeon Jose Haynes DO Groundhand none Estimated Blood Loss 75 Findings Consistent with Post-Op Diagnosis Reyna B lateral malleolus fracture with synostosis of the proximal fragment to the tibia at the level of the syndesmosis Specimens none Complications none immediately apparent Indications Sofia is a 59-year-old female who presents today for definitive management of her right ankle fracture. In early October she sustained a bimalleolar right ankle fracture requiring external fixation by Dr. Solano. He asked me to help definitively manage this patient. We have been watching her medial soft tissues as there was a very large fracture blister which has finally healed. At this point, she does have a positive wrinkle sign and healed medial fracture blister, so as such surgical passages safe enough to proceed with definitive management. I once again discussed with her the risks and benefits of this procedure. We discussed in great detail the risks which include but not limited to loss of life/limb, DVT, incomplete relief plain, posttraumatic osteoarthrosis, need for additional surgery, nonunion, malunion, hardware complication, hardware failure. We also discussed that due to her history of having this soft tissue ulcer as well as her significant past medical history, she is at a very high risk for perioperative complications and she expressed understanding to this. The alternative to surgical management would be for nonoperative care with the external fixator remaining in place, but I believe the risk of nonunion or malunion is much higher in this scenario. After thorough discussion of the risk, benefits, alternatives, the patient has signed informed and consent is in agreeable to proceed with operative management. Surgical plan: Right ankle removal of external fixator with open reduction internal fixation and application below-knee splint As the patient is currently at an assisted living facility and arranging transportation postoperatively we be difficult, she will be admitted overnight for observation and return to her [facility] facility tomorrow. Description of Procedure after informed consent was obtained, the patient was correctly identified in the preoperative holding suite, the operative site was marked with the surgeon's initials, the date of surgery, and the word yes. The patient was then taken to the operative suite. The department of anesthesia administered General anesthesia. The patient was transferred [facility] the [facility] to the operative table. All bony prominences were well-padded. Briefing and timeout was performed. All implants were available and sterile at the time. BRIEFING AND DEBRIEFING: Pre and post operative briefing and debriefing was performed. Introductions were made, goals of the procedure were discussed, questions and concerns were addressed. The operative site markings were identified and appropriate. A time [id number] was performed, the patient's correct identity was confirmed and the correct operative sites were identified. The patients pre-operative antibiotic dosing and administration was confirmed along with other SCIP measures. The team was polled at the completion of the surgery and all team members were in agreement that the procedure was without complication, the counts are correct, the wound class was identified and suggestions for improvement were shared. patient was transferred in supine fashion from the hospital bed to the operative table. All bony prominences were well-padded. The right lower extremity was placed on a bone foam ramp and a bump was placed under the ipsilateral hip. A well-padded tourniquet was placed high on the thigh. We began by cleansing the entire lower extremity with a chlorhexidine scrub brush and after appropriate time out, the external fixator pins were all removed. We then cleansed the external fixator pin sites using Betadine and proceeded to perform an additional wash with a chlorhexidine scrub brush of the entire lower extremity. We then prepped and draped the right lower extremity in standard sterile fashion using Betadine scrub and paint. The limb was exsanguinated and the tourniquet was raised to 300 mmHg. This remained elevated for 91 minutes and was not reinflated. We began by making a direct lateral approach to the distal fibula. We dissected sharply through skin and encountered a significant amount of subcutaneous tissue. Due to the patient's morbid obesity extra care and time were needed and dissecting through the subcutaneous tissue until we encountered the periosteum distally. Additional extra time was needed proximally in order to identify and protect the superficial peroneal nerve and the anterior flap. Once we had located the lateral fascia and the distal fibular periosteum, we made flaps both anteriorly and posteriorly and expose the entirety of the distal fibula. At this point the fracture was evident. We then gapped open the fracture site using a freer elevator and carefully removed all organizing hematoma from the Reyna B fibular fracture. Considering it had been 3 weeks, extra care and attention were needed to do this. We used a series of dental picks, pituitaries, curettes, and rongeur's in order to remove all organizing hematoma until the fracture fragment was free. We then used a lobster claw reduction clamp as well as a [id number] reduction clamp in order to obtain appropriate length and rotation on the fracture. Once we had this secured, we checked fluoroscopically and were satisfied with our length and rotation. We then placed a lag screw using a lag by technique technique. This was a 3.5 mm lag screw and measured 26 mm in length. Then we removed our provisional clamps and added supplemental K wires in order to hold the reduction while we applied a plate. Considering the patient's poor bony health, we opted to use a periarticular distal fibula plate out of the [employer]ynthe[employer] set. We selected the 6-hole locking periarticular distal fibula plate and we placed this into the wound onto the distal fibula until it sat appropriately. We confirmed its location using fluoroscopic guidance and once we were satisfied we pinned this in place with K wires in the proximal and distal fragments. Next we began by drilling, measuring, and placing appropriately sized 3.5 mm cortical screws proximally in the plate. This adhered the plate to bone nicely. Distally, we would drill through the locking guides and our first screw was a 2.7 mm cortical screw in order to adhere the plate to bone and then all the additional screws were locking screws. We would ensure that the screws were unicortical and not violating the ankle joint. We then would replace our first placed cortical screw such that it was replaced by an appropriately sized locking screw. At this point were satisfied with the fixation on the lateral side and we have turned our attention towards the medial side. The medial side is where the large blister was noted in all the skin had appropriately healed, but due to the tenuous nature of the soft tissues, extra careful dissection was needed in this area. We performed a direct medial approach to the medial malleolus and dissecting sharply through skin until we encountered the subcutaneous tissue. Due to the patient's morbid obesity, extra care was needed in order to identify protect the saphenous vein and the anterior flap. We then approached the periosteum and split this in line with the fracture. We would then carefully The fracture open using a [place] elevator and clean out all organizing fracture hematoma down to the level of the ankle joint using dental picks, curettes, rongeur's. Once were satisfied with our debridement, we used 2 dental picks in order to approximate the fragment and obtain an anatomic reduction. Once we were satisfied here we would place a single K wire in order to hold this reduction and then using fluoroscopic guidance we would place 2 K wires such that they crossed the fracture at 90 degrees that we would then replace with cannulated screws. We placed the anterior wire in the anterior aspect of the anterior colliculus and the posterior wire in the posterior aspect of the anterior colliculus. Next, we m easured over the wires and selected 2 x 46 mm 4.0 cannulated long threaded screws from the [employer]ynthe[employer] set. Next, we tested the stability of the ankle in all motions and fracture fragments were noted to be stable. Then we performed an external rotation stress exam and no medial clear space widening was noted, as such we did not opt to place any syndesmotic fixation. We then began a thorough irrigation using sterile saline of all wounds and we began our layered closure. The periosteal layer on both sides we used 3-0 Monocryl in a running fashion and then we closed the skin using Algar Donati sutures using a 4-0 nylon clamping each suture and tying them sequentially once all sutures had been thrown. Then we would place quarter inch brown Steri- Strips between each suture, cover each wound with Betadine soaked Adaptic, 4 x 4's fluffed, sterile Webril, mother's Continus and then placed a well-padded below-knee trilaminar AO trauma splint with the ankle held in neutral dorsiflexion. We held the ankle in neutral dorsiflexion until the splint cured. The patient tolerated this procedure well and was transferred to the PACU in stable condition. Prior to transportation to PACU, all counts were correct and a briefing was performed at the end of the case. Physician-directed fluoroscopy for Greater than one hour was performed by myself to verify fracture alignment and the safe placement of all internal fixation. The final images saved to PACs showed views demonstrating satisfactory alignment of the fracture and stable internal fixation. Implant verification was performed by myself by reading and confirming the implant information on the packaging with the team before the sterile implants were opened. I was present for the entire procedure. Plan: Weight bearing status: nonweightbearing right lower extremity Wound care: keep splint clean and dry Range of motion: as tolerated of hip and knee VTE Prophylaxis: Lovenox 40 mg subcu daily to start tomorrow Antibiotics: perioperative Ancef Pain Control: Multimodal avoiding NSAIDs Vitamin D Replacement: patient currently on vitamin D3 Discharge Plan: patient will be admitted this evening for observation and likel y discharge back to her [facility] facility tomorrow Follow Up: patient will follow-up with me in the office in 2 weeks for wound check implants: All Synthes Lag screw: 3.5 x 26 mm cortical screw Fibular plate: 6-hole 2.7 x 3.5 mm periarticular locking plate fibular plate screws: 1 x 3.5 x 14 mm cortical ; 1 x 16 x 3.5 mm cortical ; 1 x 18 x 3.5 mm cortical ; 1 x 16 x 3.5 mm locking distal fibular plate screws: 1 x 14 x 2.7 mm locking ; 1 x 18 x 2.7 mm locking ; 2 x 20 x 2.7 mm locking medial malleolus: 2 x 46 x 4.0 mm long threaded cannulated screws I attest to the content of the Intraoperative Record and any orders documented therein. Any exceptions are noted below.
--- NOTE | 2024-11-20 16:33 | Anesthesiology Progress Note ---
Date of Service November 20, 2024 Anesthesia Post Procedure Vital Signs Vital Signs: Temp Pulse Pulse Resp BP Pulse Ox O2 Del Method 11/20/24 16:25 84 13 152/84 H 97 Oxymask 11/20/24 16:15 85 17 151/86 H 98 Oxymask 11/20/24 16:08 36.4 C L 89 16 142/108 H 100 Oxymask 11/20/24 10:56 36.6 C 64 18 157/89 H 97 Room Air O2 Flow Rate 11/20/24 16:25 5 11/20/24 16:15 5 11/20/24 16:08 10 11/20/24 10:56 Transfer of Care Handoff Completed per policy Notes Mental Status: alert / awake / arousable Patient Amnestic to Procedure: Yes Nausea / Vomiting: adequately controlled Pain: adequately controlled Airway Patency, RR, SpO2: stable & adequate BP & HR: stable & adequate Hydration State: stable & adequate Anesthetic Complications: no major complications apparent
[2024-11-20] MEDS ORDERED: bisacodyL 10 MG SUPP PR PRN (16:59)
[2024-11-20] MEDS ORDERED: tiZANidine HCL 4 MG TABLET PO PRN (16:59)
[2024-11-20] MEDS ORDERED: MAGNESIUM HYDROXIDE SUSP 30 ML UDC PO PRN (16:59)
[2024-11-20] MEDS ORDERED: ACETAMINOPHEN 325 MG TAB PO PRN (16:59)
[2024-11-20] MEDS: oxyCODONE HCL IR 5 MG TAB (IMMEDIATE RELEASE) PO PRN (17:15)
[2024-11-20] MEDS ORDERED: GLYCERIN ADULT 12 SUPP/BOX SUPP PR PRN (17:32)
[2024-11-20] MEDS: ceFAZolin 2000MG 2,000 MG/15 ML SYR IV ONE (18:09)
[2024-11-20] MEDS: SOTALOL HCL 80 MG TAB PO SCH (20:14)
[2024-11-20] MEDS: VIBEGRON 75 MG TAB PO SCH (20:14)
[2024-11-20] MEDS: MELATONIN 3 MG TAB PO SCH (20:14)
[2024-11-20] MEDS: busPIRone 5 MG TAB PO SCH (20:15)
[2024-11-20] MEDS: hydrALAZINE HCL 25 MG TAB PO SCH (20:15)
[2024-11-20] MEDS: MIRTAZAPINE TAB 15 MG TAB PO SCH (20:15)
[2024-11-20] MEDS: lamoTRIgine 100 MG TAB PO SCH (20:15)
[2024-11-20] MEDS: GABAPENTIN 300 MG CAP PO SCH (20:16)
[2024-11-20] MEDS: PERPHENAZINE 4 MG TAB PO SCH (20:17)
[2024-11-20] MEDS: MONTELUKAST SODIUM 10 MG TABLET PO SCH (20:18)
[2024-11-21] MEDS: MELATONIN 3 MG TAB PO PRN (00:53)
[2024-11-21] MEDS: LEVOTHYROXINE SODIUM 200 MCG TABLET PO SCH (05:39)
--- NOTE | 2024-11-21 07:51 | Orthopedic Progress Note ---
Date of Service November 21, 2024 Assessment & Plan (1) Trimalleolar fracture of right ankle: (2) Ambulatory dysfunction: (3) Psychosocial stressors: (4) History of seizure: (5) Asymptomatic hypertensive urgency: (6) Dyspnea on minimal exertion: (7) Symptomatic anemia: (8) Hyponatremia: (9) Anemia: (10) RLS (restless legs syndrome): (11) MAURO (obstructive sleep apnea): (12) Chronic diastolic (congestive) heart failure: (13) Positive SOFIA (antinuclear antibody): (14) Morbid obesity: (15) Severe hypertension: Plan 59-year-old female postoperative day #1 status post removal of right ankle external fixator with open reduction internal fixation bimalleolar ankle frac ro. Overall, patient doing well. She is nonweightbearing on the right lower extremity. She will be PT and OT today and she will likely be discharged back to her [facility] facility (under care) today. She will resume her Lovenox 40 mg daily for DVT prophylaxis which she has been on since the external fixator has been placed. She will follow-up in the office in about 2 weeks for wound c heck Admission and Anticipated Discharge Date Admission Date: November 20, 2024 Subjective Postoperative day 1 status post removal of external fixator and open reduction internal fixation bimalleolar right ankle fracture. Patient doing well. Pain well-controlled. Limb elevated. Review of Systems Review of Systems: All systems reviewed & are unremarkable except as noted in HPI & below Physical Exam Physical Exam: Splint clean dry and intact. Limb elevated on 3 pillows. Patient wiggles toes and activates EHL/FHL. Results & Data Vital Signs (Past 12 Hours) Vital Signs Temp Pulse Resp BP Pulse Ox O2 Del Method 11/21/24 07:05 36.4 C L 58 L 18 136/79 97 Room Air 11/21/24 03:34 36.2 C L 60 16 119/71 96 Room Air 11/20/24 23:09 36.8 C 77 16 114/72 95 Room Air 11/20/24 19:58 36.8 C 87 16 137/80 94 Room Air (9) Anemia Anemia type: iron deficiency Iron deficiency anemia type: other iron deficiency Qualified Code(s): D50.8 - Other iron deficiency anemias
--- NOTE | 2024-11-21 07:59 | Discharge Summary ---
Date of Service November 21, 2024 Admission HPI Per Admitting Provider 59-year-old female originally seen by Dr. Solano in early October after she sustained a bimalleolar ankle fracture/dislocation requiring placement of external fixator. Dr. Solano contacted me for further and definitive evaluation and fixation. We have been following the patient's soft tissues closely over the past few weeks because she had a very large medial sided blister that has now finally healed. She presents today for surgical fixation. Patient does have a very long history with regards to past medical history including morbid obesity, hypertension, bipolar disorder, dyslipidemia, positive SOFIA, obstructive sleep apnea, congestive heart failure. Prior to the fall she was living alone at home. Principal Diagnosis right ankle fracture Discharge Data Allergies Allergy/AdvReac Type Severity Reaction Status Date / Time adhesive Allergy Intermediate Rash Verified 11/20/24 10:55 Hydantoins Allergy Intermediate Hives Verified 11/20/24 10:55 ethyl alcohol AdvReac Severe Seizure Verified 11/20/24 10:55 thioridazine AdvReac Severe seizures Verified 11/20/24 10:55 phenytoin AdvReac Intermediate Nausea Verified 11/20/24 10:55 Consultations 11/21/24 07:21 Consult Hospitalist Routine Procedures Performed Operation Date: 11/20/24 12:00 Actual Procedures p Right Ankle Removal of Fixator, Right Ankle Open Reduction Internal Fixation, Bimalleolar Ankle Fracture, Application of Below Knee Splint, Physician Directed Fluoroscopy Greater then 1 Hour(Left) - Jose Haynes DO Ordered Studies 11/20/24 FL ankle RT min 3V RTN Routine 11/20/24 11:37 US - OR guided needle placemen Routine Hospital Course (1) Trimalleolar fracture of right ankle: (2) Ambulatory dysfunction: (3) Psychosocial stressors: (4) History of seizure: (5) Asymptomatic hypertensive urgency: (6) Dyspnea on minimal exertion: (7) Symptomatic anemia: (8) Hyponatremia: (9) Anemia: (10) RLS (restless legs syndrome): (11) MAURO (obstructive sleep apnea): (12) Chronic diastolic (congestive) heart failure: (13) Positive SOFIA (antinuclear antibody): (14) Morbid obesity: (15) Severe hypertension: Plan 59-year-old female admitted overnight for observation following right ankle external fixator with open reduction internal fixation. Patient rested comfortably overnight and was stable. Discharge was arranged back to her custodial facility and she was discharged in stable condition on postoperative day #1. She will take oxycodone as needed for severe pain. She may take Tylenol. She should avoid NSAIDs. She has a follow-up appointment scheduled with me in about 2 weeks for wound check. She will resume her Lovenox for DVT prophylaxis. nonweightbearing RLE. Total Time Total Time Spent Total Time Spent (In Minutes): 17 Discharge Plan Discharge Items Patient Disposition: Transfer [facility] Fac Reason For Visit: Closed Fracture of Distal End of Right Fibular Uns Discharge Diagnosis: Bimalleolar right ankle fracture Activity: Resume your previous activity Activity Comment: Nonweightbearing right lower extremity. Bathing Comment: Keep right lower extremity splint clean and dry Non-emergency contact: Primary Care Provider and Surgeon Call non-emergency contact if: you have any medication questions, your pain is not controlled, your pain is worsening and your temperature is above 101 Follow-up/Referrals: Brian Salas, [Primary Care Provider] - Diet: Regular Ambulatory Orders: Covid-19(SARS Cov2 RNA) Fusion (Routine) Timeframe: 20241116 Facility: [facility] - Location: Laboratory Main [place] Ordered By: Jose Hidalgo Attending Provider Instructions: Weightbearing right lower extremity Keep splint clean and dry Keep limb elevated at all times while in bed above the level of the heart Continue Lovenox for DVT prophylaxis Follow-up in the office in about 2 weeks for wound check Take oxycodone only as needed for severe pain. Avoid NSAIDs Pending Studies at Discharge: No Stand-Alone Forms: My [facility] Skilled Items Patient informed of condition?: Yes DNR: No Discharge Level of Care: Skilled Communicable Disease: No Discharge Prognosis: Stable Lines: None Urinary Catheter: Yes Medications and DC Order Prescriptions: New oxycodone 5 mg Tablet 5 - 10 mg PO Q4 PRN (Reason: severe pain (scale score 7-10)) Qty: 20 0RF Continued lamotrigine [Lamictal] 200 mg Tablet 200 mg PO BID hydralazine 25 mg Tablet 75 mg PO TID mirtazapine 30 mg Tablet 30 mg PO HS buspirone 10 mg Tablet 10 mg PO TID perphenazine 4 mg Tablet 4 mg PO DAILY gabapentin 300 mg Capsule 300 mg PO HS montelukast 10 mg Tablet 10 mg PO HS levothyroxine 200 mcg Tablet 200 mcg PO DAILY perphenazine 8 mg Tablet 8 mg PO HS duloxetine 30 mg Capsule,Delayed Release(Dr/Ec) 30 mg PO QAM paliperidone 9 mg Tablet Extended Release 24 Hr 9 mg PO DAILY hydrochlorothiazide 12.5 mg Tablet 12.5 mg PO DAILY levocetirizine 5 mg Tablet 5 mg PO QAM mirabegron 50 mg Tablet Extended Release 24 Hr 50 mg PO HS Breo Ellipta 200 mcg 1 puff inhalation QAM sotalol 80 mg Tablet 40 mg PO BID sertraline 100 mg Tablet 200 mg PO DAILY potassium chloride 10 mEq Tablet Extended Release 10 meq PO DAILY spironolactone 25 mg Tablet 25 mg PO DAILY rosuvastatin 5 mg Tablet 5 mg PO DAILY tizanidine 4 mg Capsule 4 mg PO TID PRN (Reason: Muscle Spasm) enoxaparin [Lovenox] 40 mg/0.4 mL Syringe 40 mg subcut Q12H Qty: 4 0RF amlodipine 5 mg Tablet 2.5 mg PO DAILY Qty: 0 0RF fluticasone propion-salmeterol 250-50 mcg/dose Blister With Device 1 inh INHALATION BID bisacodyl [Dulcolax (bisacodyl)] 10 mg Suppository 10 mg HI DAILY PRN (Reason: Constipation) glycerin (adult) [Fleet Glycerin (Adult)] Suppository 1 supp HI DAILY PRN (Reason: Constipation) cholecalciferol (vitamin D3) [Vitamin D3] 125 mcg (5,000 unit) Tablet 125 mcg PO WK Patient Comments: magnesium hydroxide [Milk of Magnesia] 400 mg/5 mL Suspension 400 mg PO DAILY PRN (Reason: Constipation) losartan 25 mg Tablet 50 mg PO QAM oxycodone 5 mg Tablet 5 mg PO Q6H PRN (Reason: Pain) melatonin 5 mg Tablet 5 mg PO HS acetaminophen 325 mg Tablet 650 mg PO QID PRN (Reason: Pain) Discharge Orders: Discharge Order (Routine); Ordered 11/21/24 Ordered By: Jose Haynes Admission Data Admit Date/Time: 11/20/24 16:28 Attending Provider: Jose Haynes Admit Provider: Jose Haynes Primary Care Provider: Brian Salas Other Providers: Sae Fernandez
[2024-11-21] MEDS: ROSUVASTATIN CALCIUM 5 MG TAB PO SCH (08:08)
[2024-11-21] MEDS: POTASSIUM CHLORIDE 10 MEQ TABCR PO SCH (08:08)
[2024-11-21] MEDS: hydroCHLOROthiazide 25 MG TAB PO SCH (08:08)
[2024-11-21] MEDS: CETIRIZINE HCL 10 MG TABLET PO SCH (08:10)
[2024-11-21] MEDS: DULoxetine HCL 30 MG CAP PO SCH (08:10)
[2024-11-21] MEDS: LOSARTAN POTASSIUM 50 MG TAB PO SCH (08:10)
[2024-11-21] MEDS: amLODIPine BESYLATE 5 MG TAB PO SCH (08:11)
[2024-11-21] MEDS: SPIRONOLACTONE 25 MG TAB PO SCH (08:12)
[2024-11-21] MEDS: PALIPERIDONE 3 MG TABCR PO SCH (08:12)
[2024-11-21] MEDS: ENOXAPARIN INJ 40 MG/0.4 ML SYR SQ SCH (08:12)
[2024-11-21] MEDS: SERTRALINE HCL 100 MG TABLET PO SCH (08:13)
[2024-11-21] MEDS: FLUTICASONE/VILANTEROL 200/25MCG 14 PUFFS/INHALER INH SCH (08:13)
[2024-11-21] MEDS: PERPHENAZINE 4 MG TAB PO SCH (08:14)
--- NOTE | 2024-11-21 08:16 | Hospitalist Consultation ---
Date of Consultation November 21, 2024 Assessment & Plan (1) Trimalleolar fracture of right ankle: (2) Schizoaffective disorder: (3) Hypertension: (4) Fibromyalgia: (5) RLS (restless legs syndrome): (6) MAURO (obstructive sleep apnea): (7) Chronic diastolic (congestive) heart failure: (8) Morbid obesity: (9) Migraine: Plan This is a 59yo F with PMH of seizure disorder, schizoaffective disorder, asthma, paroxysmal atrial fibrillation, morbid obesity, bipolar disorder, iron deficiency anemia, hypertension, hyperlipidemia, ? Sjogren syndrome, restless leg syndrome and other medical problems who is POD#1 s/p Right Ankle Removal of Fixator, Right Ankle Open Reduction Internal Fixation, Bimalleolar Ankle Fracture, Application of Below Knee Splint by Dr. Haynes. S/p Trimalleolar fracture POD#1 s/p Right Ankle Removal of Fixator, Right Ankle Open Reduction Internal Fixation, Bimalleolar Ankle Fracture, Application of Below Knee Splint by Dr. Haynes Discharge was arranged back to her senior living facility and she was discharged in stable condition Per ortho for pain control, wound care, anticoagulation and activities Follow-up appointment scheduled with Dr. Haynes in 2 weeks for wound check Resumed on Lovenox for DVT prophylaxis Nonweightbearing RLE Schizoaffective disorder History of suicide attempt Continue home medications, no changes Obstructive sleep apnea BiPAP HS Hypothyroidism Continue levothyroxine Hypertension Continue home meds History of A-fib Continue sotalol No longer on anticoagulant secondary to bleeding Hyperlipidemia Continue Crestor Chronic diastolic CHF Continue Spironolactone and hydrochlorothiazide Monitor for volume overload Moderate persistent asthma Continue home inhalers Morbid obesity BMI 41.4 Counseling DVT Ppx: SQ lovenox as above Dispo: Dc back to SNF per primary service Patient seen in collaboration with Dr. De Leon. Please see addendum. I spent a total of 50 minutes coordinating, documenting, and providing care for this patient excluding time spent in the performance of separately billed services or time spent by another provider/QHP. Thank you for this consultation. We will follow the patient with you during their hospital stay. You can reach a [facility] via [employer]. Supervising Physician Co-Signing Physician Notes Patient seen and examined at bedside. Patient is doing well in postop.. She reports that the pain is well-controlled; denies any chest pain, shortness of breath, abdomen pain or urinary symptoms. Plan to be discharged today. I have reviewed the advanced practitioner's documentation, and I agree with, and take responsibility for the plan of care I spent a total of 20 minutes coordinating, documenting, and providing care for this patient excluding time spent in the performance of separately billed services. All of the aforementioned completed while collaborating with the assigned advanced practitioner for a full treatment plan History of Present Illness Reason for Consultation: post op med mgmt Attending Physician: Jose Haynes DO History of Present Illness This is a 59yo F with PMH of seizure disorder, schizoaffective disorder, asthma, paroxysmal atrial fibrillation, morbid obesity, bipolar disorder, iron deficiency anemia, hypertension, hyperlipidemia, ? Sjogren syndrome, restless l eg syndrome and other medical problems who is POD#1 s/p Right Ankle Removal of Fixator, Right Ankle Open Reduction Internal Fixation, Bimalleolar Ankle Fracture, Application of Below Knee Splint by Dr. Haynes. Feeling well today, denies any pain or paresthesias to RLE. No acute events overnight. No F/C, lightheadedness, CP, SOB, N/V, abd pain, dysuria or diarrhea. Last bowel movement AM of 11/20. Allergies Allergy/AdvReac Type Severity Reaction Status Date / Time adhesive Allergy Intermediate Rash Verified 11/20/24 10:55 Hydantoins Allergy Intermediate Hives Verified 11/20/24 10:55 ethyl alcohol AdvReac Severe Seizure Verified 11/20/24 10:55 thioridazine AdvReac Severe seizures Verified 11/20/24 10:55 phenytoin AdvReac Intermediate Nausea Verified 11/20/24 10:55 Home Medications Medication Instructions Recorded Confirmed Type Breo Ellipta 1 puff inhalation QAM 10/30/24 11/21/24 History buspirone 10 mg tablet 10 mg PO TID 10/30/24 11/21/24 History duloxetine 30 mg capsule,delayed 30 mg PO QAM 10/30/24 11/21/24 History release gabapentin 300 mg capsule 300 mg PO HS 10/30/24 11/21/24 History hydralazine 25 mg tablet 75 mg PO TID 10/30/24 11/21/24 History hydrochlorothiazide 12.5 mg tablet 12.5 mg PO DAILY 10/30/24 11/21/24 History lamotrigine 200 mg tablet 200 mg PO BID 10/30/24 11/21/24 History (Lamictal) levocetirizine 5 mg tablet 5 mg PO QAM 10/30/24 11/21/24 History levothyroxine 200 mcg tablet 200 mcg PO DAILY 10/30/24 11/21/24 History mirabegron 50 mg tablet,extended 50 mg PO HS 10/30/24 11/21/24 History release 24 hr mirtazapine 30 mg tablet 30 mg PO HS 10/30/24 11/21/24 History montelukast 10 mg tablet 10 mg PO HS 10/30/24 11/21/24 History paliperidone 9 mg tablet,extended 9 mg PO DAILY 10/30/24 11/21/24 History release 24 hr perphenazine 4 mg tablet 4 mg PO DAILY 10/30/24 11/21/24 History perphenazine 8 mg tablet 8 mg PO HS 10/30/24 11/21/24 History potassium chloride 10 mEq 10 meq PO DAILY 10/30/24 11/21/24 History tablet,extended release rosuvastatin 5 mg tablet 5 mg PO DAILY 10/30/24 11/21/24 History sertraline 100 mg tablet 200 mg PO DAILY 10/30/24 11/21/24 History sotalol 80 mg tablet 40 mg PO BID 10/30/24 11/21/24 History spironolactone 25 mg tablet 25 mg PO DAILY 10/30/24 11/21/24 History tizanidine 4 mg capsule 4 mg PO TID PRN Muscle Spasm 10/30/24 11/21/24 History amlodipine 5 mg tablet 2.5 mg (1/2 x 5 mg) PO DAILY #0 11/07/24 11/21/24 Rx tabs enoxaparin 40 mg/0.4 mL 40 mg (0.4 mL) subcut Q12H #4 mL 11/07/24 11/21/24 Rx subcutaneous syringe (Lovenox) bisacodyl 10 mg rectal suppository 10 mg GA DAILY PRN Constipation 11/15/24 11/21/24 History (Dulcolax (bisacodyl)) cholecalciferol (vitamin D3) 125 125 mcg PO WK 11/15/24 11/21/24 History mcg (5,000 unit) tablet (Vitamin D3) fluticasone 250 mcg-salmeterol 50 1 inh inhalation BID 11/15/24 11/21/24 History mcg/dose blistr powdr for inhalation glycerin (adult) (Fleet Glycerin 1 supp GA DAILY PRN Constipation 11/15/24 11/21/24 History (Adult) rectal suppository) losartan 25 mg tablet 50 mg PO QAM 11/15/24 11/21/24 History magnesium hydroxide 400 mg/5 mL 400 mg PO DAILY PRN Constipation 11/15/24 11/21/24 History oral suspension (Milk of Magnesia) melatonin 5 mg tablet 5 mg PO HS 11/15/24 11/21/24 History oxycodone 5 mg tablet 5 mg PO Q6H PRN Pain 11/15/24 11/21/24 History acetaminophen 325 mg tablet 650 mg PO QID PRN Pain 11/20/24 11/21/24 History oxycodone 5 mg tablet 5 - 10 mg (1 - 2 x 5 mg) PO Q4 PRN 11/21/24 11/21/24 Rx severe pain (scale score 7-10) #20 tabs Patient History Medical History High catecholamines entered into EMR 06/16/20. Per [facility] discharge summary 06/08/20 "...plasma metanephrines came back elevated and further work-up with an abdominal MRI was recommended as the CT abdomen pelvis did not show any localized anatomic source. Abdominal MRI will be more sensitive to locate this. I discussed this with the patient and this can be ordered as outpatient..." Paroxysmal A-fib Schizoaffective disorder Hypertension Barlow catheter status [place] Suicidal ideation entered into EMR 07/16/24 Dyspnea Anxiety and depression Nausea and vomiting Morbid obesity Bipolar 1 disorder Osteoarthritis Fibromyalgia Spinal stenosis Degenerative disc disease Chronic back pain GERD (gastroesophageal reflux disease) Hypothyroidism Migraine Sleep apnea cpap Epilepsy hx of x2, last one in 1989's IBS (irritable bowel syndrome) Surgical History History of ankle surgery right Nausea and vomiting after administration of anesthetic agent History of cataract surgery RT/LEFT History of total abdominal hysterectomy and bilateral salpingo-oophorectomy S/P foot surgery, left X2 History of carpal tunnel release LEFT Status post lumbar spine surgery for decompression of spinal cord + RODS History of colonoscopy History of cholecystectomy History of tooth extraction ALL UPPER TEETH EXTRACTIONS History of tonsillectomy and adenoidectomy History of endoscopic sinus surgery Family History Father Family history of diabetes mellitus Coronary heart disease Mother Lung cancer Sister Alive and well Brother Alive and well Other No family history of adverse response to anesthesia Social History Smoking Status: Never smoker Tobacco Type: Cigarettes Preferred Language: Estonian Communication Ability: Effective Visual Impairment: No Limitations 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: Normal Contracts Officer Required: No Beliefs That Will Affect Care: None marital status: Current Living Situation: Personal Care Facility current occupational status: disabled Feels Safe at Home: Yes Gender Identity: Female Assistive Devices: Wheelchair Review of Systems Review of Systems: At least ten systems reviewed and negative except as noted in the HPI. Physical Exam Physical Exam: Gen: WD/WN, NAD, resting in bed comfortably, A&Ox3 HEENT: Normocephalic, atraumatic, mucous membranes moist Lung: Clear to Auscultation bilaterally Heart: Regular rate, regular rhythm Abdomen: Soft, NT, ND +BS x 4 Extremities: RLE surgical dressing c/d/i, splinted and elevated Skin: Warm, no rash Results & Data Results & Data Vital Signs (Past 12 Hours) Vital Signs Temp Pulse Resp BP Pulse Ox O2 Del Method 11/21/24 07:05 36.4 C L 58 L 18 136/79 97 Room Air 11/21/24 03:34 36.2 C L 60 16 119/71 96 Room Air 11/20/24 23:09 36.8 C 77 16 114/72 95 Room Air Diagnostic Findings Ankle X-Ray 11/20/24 00:00 FL ankle RT min 3V RTN CLINICAL HISTORY: RIGHT ANKLE ORIF/REMOVAL OF FIXATOR COMPARISON STUDY: Right ankle radiographs October 30, 2024. Right ankle CT November 06, 2024. Fluoroscopy time: 1.52 minutes. Number of fluoroscopic images: 17 Ka,r: 2.8490 mGy. FINDINGS: Fluoroscopy was provided during removal of the fixator and subsequent open reduction and internal fixation of the right ankle bimalleolar fracture. Fracture alignment has improved and appears anatomic. Hardware is intact. No ankle mortise widening is present. There are no unexpected radiopaque foreign bodies. IMPRESSION: Fluoroscopy provided during removal of the fixator and subsequent open reduction and internal fixation of the right ankle bimalleolar fracture. ACT 112: Negative or not required by law. Electronically signed by: John Daley M.D. 11/20/2024 3:21 PM
[2024-11-21] MEDS ORDERED: BREO ELLIPTA INH SCH (09:00)
[2024-11-21 13:51] VITALS: BP 105/66; PULSE 60; RESP 16; TEMP 98.6; O2SAT 98
== END 2024-11-21 16:02 ==
LOC: ASU 10:37 → INTOOBSV 16:28 → 3E 16:28